=== PATIENT | female | born 1945 | race Caucasian/White ===

== ENCOUNTER 2018-02-20 13:01 | Emergency (ER) | payer OTHER, BC ==
--- NOTE | 2018-02-20 14:30 | RAD REPORT ---
EXAM DESCRIPTION: RAD - Pelvis - 02/20/2018 2:17 pm CLINICAL HISTORY: Fall, leg pain COMPARISON: January 16 TECHNIQUE: AP imaging of the pelvis was obtained. FINDINGS: Prominent degenerative change involves the L4-5 and L5-S1 disc spaces. This is stable in p resentation to the prior study. SI joint degenerative changes also stable. No fracture or acute findi ng of the bony pelvis. Mild for age left-side and moderate for age right side hip joint degenerative changes are present. Ag ain, pattern is similar to comparison. Fracture hardware is present in the proximal right femur with no new or recurrent fracture. IMPRESSION: Lower lumbar, pelvic and hip joint degenerative and postsurgical changes as detailed. No acute findings seen and no significant change January 16.
--- NOTE | 2018-02-20 14:32 | RAD REPORT ---
EXAM DESCRIPTION: RAD - Femur Left - 02/20/2018 2:18 pm CLINICAL HISTORY: Fall, hip pain COMPARISON: January 16 FINDINGS: No fracture is identified. There is no dislocation or periosteal reaction noted. No acute or suspicious bony finding. No AVN or focal femoral head abnormality. Mild for age degenerative randhawa ges are present seen as joint space narrowing and marginal spurring along the superior acetabular rim . No periarticular soft tissue mass or hematoma suspected. More distally the shaft of the femur is intact. Patient has advanced degenerative changes at the knee joint. Moderate joint effusion is present. There is medial compartment narrowing and marginal spurri ng. Patella femoral joint space narrowing is present also with large marginal spurs. IMPRESSION: Advanced degenerative change and moderate E fusion at the knee joint. No acute finding c onfirmed. A much more mild degenerative process seen at the left hip joint. Again, no acute component.
--- NOTE | 2018-02-20 15:15 | EDPHYS ---
Physician Documentation [facility] Name: Tina Padron Age: 72 yrs Sex: Female : 1945 Arrival Date: 02/20/2018 Time: 13:05 Bed 17 Private MD: ED Physician Mateo Fox HPI: 02/20 15:07 This 72 yrs old Female presents to ER via Wheelchair with complaints of Fall alec Injury, Leg Pain. 15:07 Details of fall: The patient fell from an upright position, while walking. Onset: The alec symptoms/episode began/occurred this morning. Associated injuries: The patient sustained left leg, decreased range of motion, painful injury. Severity of symptoms: At their worst the symptoms were mild, in the emergency department the symptoms are unchanged. The patient has experienced similar episodes in the past, a few times. 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 - Social history:: Smoking status: Patient/guardian denies using tobacco. ROS: 15:09 Constitutional: Negative for fever, chills, and weight loss, Eyes: Negative for injury, alec pain, redness, and discharge, ENT: Negative for injury, pain, and discharge, Neck: Negative for injury, pain, and swelling, Cardiovascular: Negative for chest pain, palpitations, and edema, Respiratory: Negative for shortness of breath, cough, wheezing, and pleuritic chest pain, Abdomen/GI: Negative for abdominal pain, nausea, vomiting, diarrhea, and constipation, Back: Negative for injury and pain, : Negative for injury, bleeding, discharge, and swelling, Skin: Negative for injury, rash, and discoloration, Neuro: Negative for headache, weakness, numbness, tingling, and seizure, Psych: Negative for depression, anxiety, suicide ideation, homicidal ideation, and hallucinations, Allergy/Immunology: Negative for hives, rash, and allergies, Endocrine: Negative for neck swelling, polydipsia, polyuria, polyphagia, and marked weight changes, Hematologic/Lymphatic: Negative for swollen nodes, abnormal bleeding, and unusual bruising. 15:09 MS/extremity: Positive for decreased range of motion, pain, swelling, tenderness, of the left inner thigh, medial aspect of left thigh, left quadriceps and left knee. Exam: 15:09 Constitutional: This is a well developed, well nourished patient who is awake, alert, alec and in no acute distress. Head/Face: Normocephalic, atraumatic. Eyes: Pupils equal round and reactive to light, extra-ocular motions intact. Lids and lashes normal. Conjunctiva and sclera are non-icteric and not injected. Cornea within normal limits. Periorbital areas with no swelling, redness, or edema. ENT: Nares patent. No nasal discharge, no septal abnormalities noted. Tympanic membranes are normal and external auditory canals are clear. Oropharynx with no redness, swelling, or masses, exudates, or evidence of obstruction, uvula midline. Mucous membranes moist. Neck: Trachea midline, no thyromegaly or masses palpated, and no cervical lymphadenopathy. Supple, full range of motion without nuchal rigidity, or vertebral point tenderness. No Meningismus. Chest/axilla: Normal chest wall appearance and motion. Nontender with no deformity. No lesions are appreciated. Cardiovascular: Regular rate and rhythm with a normal S1 and S2. No gallops, murmurs, or rubs. Normal PMI, no JVD. No pulse deficits. Respiratory: Lungs have equal breath sounds bilaterally, clear to auscultation and percussion. No rales, rhonchi or wheezes noted. No increased work of breathing, no retractions or nasal flaring. Abdomen/GI: Soft, non-tender, with normal bowel sounds. No distension or tympany. No guarding or rebound. No evidence of tenderness throughout. Back: No spinal tenderness. No costovertebral tenderness. Full range of motion. Skin: Warm, dry with normal turgor. Normal color with no rashes, no lesions, and no evidence of cellulitis. Neuro: Awake and alert, GCS 15, oriented to person, place, time, and situation. Cranial nerves II-XII grossly intact. Motor strength 5/5 in all extremities. Sensory grossly intact. Cerebellar exam normal. Normal gait. Psych: Awake, alert, with orientation to person, place and time. Behavior, mood, and affect are within normal limits. 15:09 Musculoskeletal/extremity: Extremities: decreased ROM. 15:09 Musculoskeletal/extremity: ROM: limited active range of motion, limited passive range alec of motion, Circulation is intact in all extremities. Sensation intact. Compartment Syndrome exam of affected extremity: is normal. Weight bearing: can bear weight with assistance only, uses walker, DVT Exam: negative Homans' sign noted on exam, no appreciated bluish discoloration, no erythema, no increased warmth, pain, swelling, tenderness. Vital Signs: 13:13 BP 129 / 80; Pulse 74; Resp 16 S; Temp 98.4; Pulse Ox 94% on R/A; Weight 75.3 kg; iw Height 5 ft. 5 in. (165.10 cm); Pain 10/10; 13:13 Body Mass Index 27.62 (75.30 kg, 165.10 cm) iw Lyman Coma Score: 13:13 Eye Response: spontaneous(4). Verbal Response: oriented(5). Motor Response: obeys iw commands(6). Total: 15. Trauma Score (Adult): 13:13 Eye Response: spontaneous(1); Verbal Response: oriented(1); Motor Response: obeys iw commands(2); Systolic BP: > 89 mm Hg(4); Respiratory Rate: 10 to 29 per min(4); Lyman Score: 15; Trauma Score: 12 MDM: 13:26 Patient medically screened. [facility] 15:09 Data reviewed: vital signs, nurses notes, radiologic studies, plain films. [facility] 02/20 13:39 Order name: Pelvis XRAY; Complete Time: 14:54 em 02/20 13:39 Order name: Femur Left XRAY; Complete Time: 14:54 em 02/20 15:08 Order name: Knee Immobilizer; Complete Time: 15:33 kb 02/20 15:08 Order name: Ice pack; Complete Time: 15:33 kb Administered Medications: 15:33 Drug: [place] 10 mg-325 mg 1 tabs Route: PO; em 15:56 Follow up: Response: No adverse reaction; Pain is decreased iw Disposition: 02/20/18 15:14 Discharged to Home. Impression: Fall due to bumping against object, Pain in left knee, Effusion, left knee. - Condition is Stable. - Discharge Instructions: Knee Bracing, Knee Effusion, Musculoskeletal Pain, Knee Pain. - Prescriptions for Tylenol- Codeine #3 300-30 mg Oral Tablet - take 2 tablets by ORAL route every 6 hours As needed; 24 tablet. - Medication Reconciliation Form, Thank You Letter, Antibiotic Education, Prescription Opioid Use form. - Follow up: Private Physician; When: 2 - 3 days; Reason: Recheck today's complaints, Continuance of care, Re-evaluation by your physician. Follow up: Elijah Patten MD; When: 2 - 3 days; Reason: Recheck today's complaints, Continuance of care, Re-evaluation by your physician. - Problem is new. - Symptoms have improved. Signatures: Dispatcher [employer] Yessenia Hill, RACKER OCTAVE BOARD-C RACKER OCTAVE BOARD-Ckb Mateo Fox MD MD cha Munoz, Edgar, ADMITTANCE ATTENDANT ADMITTANCE ATTENDANT Dinora Álvarez RN RN iw Corrections: (The following items were deleted from the chart) 15:39 15:09 Knee Left 3 View+RAD.RAD.BRZ ordered. [facility]
--- NOTE | 2018-02-20 15:15 | ER ---
Nurse's Notes [facility] Name: Tina Padron Age: 72 yrs Sex: Female : 1945 Arrival Date: 02/20/2018 Time: 13:05 Bed 17 Private MD: Diagnosis: Fall due to bumping against object;Pain in left knee;Effusion, left knee Presentation: 02/20 13:10 Presenting complaint: states: pt fell in bathroom this morning at 0700, had a iw hard time getting her off floor, EMS was called for lift assist, pt now c/o pain to left leg, then entire leg, can't bend or straighten it. Care prior to arrival: None. Mechanism of Injury: Fall out of chair. Trauma event details: Injury occurred in the [facility], Injury occurred: at home. Injury occurred: February 20, 2018. 13:10 Acuity: TYLOR 3 iw 13:10 Method Of Arrival: Wheelchair iw 13:13 Transition of care: patient was not received from another setting of care. Onset of iw symptoms was February 20, 2018. Initial Sepsis Screen: Does the patient meet any 2 criteria? No. Patient's initial sepsis screen is negative. Does the patient have a suspected source of infection? No. Patient's initial sepsis screen is negative. 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 - Social history:: Smoking status: Patient/guardian denies using tobacco. Screenin:54 Abuse screen: Denies threats or abuse. Denies injuries from another. Nutritional iw screening: No deficits noted. Tuberculosis screening: No symptoms or risk factors identified. Fall Risk Fall in past 12 months (25 points). Assessment: 14:00 General: Appears in no apparent distress. Behavior is calm, cooperative. Pain: iw Complains of pain in left leg. Neuro: Level of Consciousness is awake, alert, Oriented to person, place, time. Cardiovascular: Patient's skin is warm and dry. Respiratory: Airway is patent Respiratory effort is even, unlabored, Respiratory pattern is regular, symmetrical. GI: No signs and/or symptoms were reported involving the gastrointestinal system. Derm: Skin is normal. Musculoskeletal: Range of motion: limited in left hip and left knee. Musculoskeletal: Reports pain in left leg. 15:00 Reassessment: Patient appears in no apparent distress at this time. Patient and/or em family updated on plan of care and expected duration. Pain level reassessed. Patient is alert, oriented x 3, equal unlabored respirations, skin warm/dry/pink. Vital Signs: 13:13 BP 129 / 80; Pulse 74; Resp 16 S; Temp 98.4; Pulse Ox 94% on R/A; Weight 75.3 kg; iw Height 5 ft. 5 in. (165.10 cm); Pain 10/10; 13:13 Body Mass Index 27.62 (75.30 kg, 165.10 cm) iw Haley Coma Score: 13:13 Eye Response: spontaneous(4). Verbal Response: oriented(5). Motor Response: obeys iw commands(6). Total: 15. Trauma Score (Adult): 13:13 Eye Response: spontaneous(1); Verbal Response: oriented(1); Motor Response: obeys iw commands(2); Systolic BP: > 89 mm Hg(4); Respiratory Rate: 10 to 29 per min(4); Zephyr Score: 15; Trauma Score: 12 ED Course: 13:05 Patient arrived in ED. mr 13:12 Triage completed. iw 13:26 Mateo Fox MD is Attending Physician. alec 13:38 Stevenson Garcia LVN is Primary Nurse. em 14:00 Patient has correct armband on for positive identification. Call light in reach. Side em rails up X2. 14:17 Pelvis XRAY In Process Unspecified. EDMS 14:17 Femur Left XRAY In Process Unspecified. EDMS 15:12 Elijah Patten MD is Referral Physician. alec 15:26 Radiology exam delayed due to confirming with NASRIN Casas before doing dedicated knee x kw1 ray. 15:54 No provider procedures requiring assistance completed. Patient did not have IV access iw during this emergency room visit. 16:05 Arm band placed on. em Administered Medications: 15:33 Drug: [place] 10 mg-325 mg 1 tabs Route: PO; em 15:56 Follow up: Response: No adverse reaction; Pain is decreased iw Outcome: 15:14 Discharge ordered by . alec 16:05 Discharged to home via wheelchair. em 16:05 Condition: good 16:05 Discharge instructions given to patient, family, Instructed on discharge instructions, follow up and referral plans. medication usage, Demonstrated understanding of instructions, follow-up care, medications, Prescriptions given X 1. 16:07 Patient left the ED. iw Signatures: Dispatcher [employer] Mateo Solano MD MD cha Rivera, Maria mr Munoz, Edgar, FLAT BED OPERATOR FLAT BED OPERATOR Dinora Álvarez, ALCIDES RN Demetria Vega kw1
[2018-02-20] MEDS ORDERED: HYDROCODONE/APAP 10/325 TAB ONE (15:17)
== END 2018-02-20 16:07 | disposition home or self-care (01) ==
LOC: ER 13:01
DX: M25.562 Pain in left knee (principal); M25.462 Effusion, left knee; W18.30XA Fall on same level, unspecified, initial encounter; Y93.9 Activity, unspecified; Y92.009 Unspecified place in unspecified non-institutional (private) residence as the place of occurrence of the external cause
CPT/HCPCS: 72170; 99283

== ENCOUNTER 2018-02-21 09:41 | Emergency (ER) | payer OTHER, BC ==
--- NOTE | 2018-02-21 11:23 | RAD REPORT ---
EXAM DESCRIPTION: RAD - Chest Pa And Lat (2 Views) - 02/21/2018 11:15 am CLINICAL HISTORY: Fall, right-sided rib pain COMPARISON: 01/16/2018, 12/03/2017 FINDINGS: Two views of the chest and right rib series are submitted. The lungs are clear. The heart is upper limit normal in size. No displaced fractures. Hardware is pre sent in the left clavicle. Cholecystectomy clips. Right rib series is not demonstrate evidence of a displaced rib fracture. No aggressive rib lesion. IMPRESSION: No acute finding is demonstrated.
--- NOTE | 2018-02-21 11:35 | ER ---
Nurse's Notes [facility] Name: Tina Padron Age: 72 yrs Sex: Female : 1945 Arrival Date: 02/21/2018 Time: 09:44 Bed 17 Private MD: Judd Gagnon R Diagnosis: Rib Contusion Presentation: 02/21 09:46 Presenting complaint: Patient states: when i fell yesterday they looked at my left arm tw2 but not at my right ribs and they are hurting me. Transition of care: patient was not received from another setting of care. Onset of symptoms was February 21, 2018. Initial Sepsis Screen: Does the patient meet any 2 criteria? No. Patient's initial sepsis screen is negative. Does the patient have a suspected source of infection? No. Patient's initial sepsis screen is negative. Care prior to arrival: None. 09:46 Method Of Arrival: Wheelchair tw2 09:46 Acuity: TYLOR 4 tw2 Triage Assessment: 09:49 General: Appears in no apparent distress. Behavior is calm, cooperative, appropriate tw2 for age. Pain: Complains of pain in right ribs. Historical: - Allergies: 09:48 Compazine; tw2 - Home Meds: 09:48 aspirin 81 mg Oral chew 1 tab once daily [Active]; dicyclomine 20 mg Oral tab 1 tab tw2 [Active]; levothyroxine oral [Active]; losartan Oral [Active]; Meclizine Oral [Active]; Metoprolol Tartrate Oral [Active]; multivitamin Oral [Active]; Omeprazole Oral [Active]; potassium chloride (bulk) miscellaneous [Active]; Simvastatin Oral [Active]; Ursodiol Oral [Active]; - PMHx: 09:48 b-cell lymphoma; breast mass L side, removed; chemo for B cell lymp-marija, finished now; tw2 Chronic pain; neck; Kidney stones; syncope; UTI; - PSHx: 09:48 left arm/shoulder; Cholecystectomy; Hysterectomy; tw2 - Immunization history:: Adult Immunizations up to date. - Social history:: Smoking status: Patient/guardian denies using tobacco. - Family history:: not pertinent. - Hospitalizations: : No recent hospitalization is reported. Screenin:59 Abuse screen: Denies threats or abuse. Denies injuries from another. Nutritional mg2 screening: No deficits noted. Tuberculosis screening: No symptoms or risk factors identified. Fall Risk Fall in past 12 months (25 points). Secondary diagnosis (15 points) impaired mobility. Assessment: 09:59 General: Appears in no apparent distress. comfortable, Behavior is calm, cooperative. mg2 Pain: Complains of pain in right side of the trunk Pain Quality of pain is described as aching, Pain began 1 day ago. Is intermittent, Alleviated by rest, Aggravated by Noted to be Also complains of. Pain: Pain currently is 8 out of 10 on a pain scale. Quality of pain is described as. Neuro: Level of Consciousness is awake, alert. Cardiovascular: Patient's skin is warm and dry. Respiratory: Breath sounds are clear bilaterally. Derm: Skin is intact. Musculoskeletal: Vital Signs: 09:48 BP 112 / 71; Pulse 65; Resp 16; Temp 98.6(TE); Pulse Ox 95% on R/A; Weight 73.48 kg tw2 (R); Height 5 ft. 5 in. (165.10 cm) (R); Pain 8/10; 11:45 BP 115 / 72; Pulse 66; Resp 18; Pulse Ox 100% on R/A; hj 09:48 Body Mass Index 26.96 (73.48 kg, 165.10 cm) tw2 ED Course: 09:44 Patient arrived in ED. mr 09:44 Judd Gagnon MD is Private Physician. mr 09:47 Triage completed. tw2 09:49 Arm band placed on. tw2 09:53 Chintan Ramírez MD is Attending Physician. rn 09:59 Patient has correct armband on for positive identification. Bed in low position. Call mg2 light in reach. Side rails up X 1. 09:59 No provider procedures requiring assistance completed. mg2 10:06 Ted Blandon, ALCIDES is Primary Nurse. mg2 10:07 Note: DELAYED DUE TO NOT HAVING AN AVAILABLE X RAY ROOM. sw 10:59 Patient moved to radiology via wheelchair. sw 11:15 X-ray completed. Patient tolerated procedure well. Patient moved back from radiology. sw 11:16 XRAY Chest Pa And Lat (2 Views) In Process Unspecified. EDMS 11:16 XRAY Ribs RIGHT In Process Unspecified. EDMS 11:35 Judd Gagnon MD is Referral Physician. rn 11:45 Patient did not have IV access during this emergency room visit. neil Administered Medications: No medications were administered Outcome: 11:35 Discharge ordered by . rn 11:45 Discharged to home via wheelchair. neil 11:45 Condition: stable 11:45 Discharge instructions given to patient, Instructed on discharge instructions, follow up and referral plans. Demonstrated understanding of instructions, follow-up care. 11:46 Patient left the ED. neil Signatures: Dispatcher [employer] EDSC Shawna Fay Roman, MD MD rn Warren, Shannon sw Joaquin, Henry RN RN Zoraida Joyner RN RN tw2 Ted Blandon RN RN mg2
--- NOTE | 2018-02-21 11:35 | EDPHYS ---
Physician Documentation [facility] Name: Tina Padron Age: 72 yrs Sex: Female : 1945 Arrival Date: 02/21/2018 Time: 09:44 Bed 17 Private MD: Judd Gagnon R ED Physician Chintan Ramírez HPI: 02/21 10:04 This 72 yrs old Female presents to ER via Wheelchair with complaints of Rib rn Pain. 10:04 The patient or guardian reports chest pain that is located primarily in the anterior rn chest wall. Onset: The symptoms/episode began/occurred yesterday. The pain does not radiate. The chest pain is described as sharp. Duration: The patient or guardian reports multiple episodes, that are intermittent. Severity of pain: At its worst the pain was moderate in the emergency department the pain is unchanged. The patient has not experienced similar symptoms in the past. Reports right sided rib pain s/p fall, seen here yesterday, had xrays of leg because that was what was hurting, told everything was normal, went home and right ribs began to hurt, fall from standing. . Historical: - Allergies: 09:48 Compazine; tw2 - Home Meds: 09:48 aspirin 81 mg Oral chew 1 tab once daily [Active]; dicyclomine 20 mg Oral tab 1 tab tw2 [Active]; levothyroxine oral [Active]; losartan Oral [Active]; Meclizine Oral [Active]; Metoprolol Tartrate Oral [Active]; multivitamin Oral [Active]; Omeprazole Oral [Active]; potassium chloride (bulk) miscellaneous [Active]; Simvastatin Oral [Active]; Ursodiol Oral [Active]; - PMHx: 09:48 b-cell lymphoma; breast mass L side, removed; chemo for B cell lymp-marija, finished now; tw2 Chronic pain; neck; Kidney stones; syncope; UTI; - PSHx: 09:48 left arm/shoulder; Cholecystectomy; Hysterectomy; tw2 - Immunization history:: Adult Immunizations up to date. - Social history:: Smoking status: Patient/guardian denies using tobacco. - Family history:: not pertinent. - Hospitalizations: : No recent hospitalization is reported. ROS: 10:04 Constitutional: Negative for fever, chills, and weight loss, Eyes: Negative for injury, rn pain, redness, and discharge, Neck: Negative for injury, pain, and swelling, Cardiovascular: Negative for palpitations, and edema Respiratory: Negative for shortness of breath, cough, wheezing Abdomen/GI: Negative for abdominal pain, nausea, vomiting, diarrhea, and constipation, Back: Negative for injury and pain, MS/Extremity: Negative for deformity Skin: Negative for injury, rash, and discoloration, Neuro: Negative for headache, weakness, numbness, tingling, and seizure. Exam: 10:04 Constitutional: This is a well developed, well nourished patient who is awake, alert, rn and in no acute distress. Head/Face: Normocephalic, atraumatic. Eyes: Pupils equal round and reactive to light, extra-ocular motions intact. Lids and lashes normal. Conjunctiva and sclera are non-icteric and not injected. Cornea within normal limits. Periorbital areas with no swelling, redness, or edema. Chest/axilla: Normal chest wall appearance and motion. + mild tenderness right taj/lateral chest wall along inferior ribs, no contusion/ecchymosis, no crepitus Cardiovascular: Regular rate and rhythm with a normal S1 and S2. No gallops, murmurs, or rubs. Normal PMI, no JVD. No pulse deficits. Respiratory: Lungs have equal breath sounds bilaterally, clear to auscultation and percussion. No rales, rhonchi or wheezes noted. No increased work of breathing, no retractions or nasal flaring. Abdomen/GI: Soft, non-tender, with normal bowel sounds. No distension or tympany. No guarding or rebound. No evidence of tenderness throughout. Neuro: Awake and alert, GCS 15, oriented to person, place, time, and situation. Cranial nerves II-XII grossly intact. Motor strength 5/5 in all extremities. Sensory grossly intact. Vital Signs: 09:48 BP 112 / 71; Pulse 65; Resp 16; Temp 98.6(TE); Pulse Ox 95% on R/A; Weight 73.48 kg tw2 (R); Height 5 ft. 5 in. (165.10 cm) (R); Pain 8/10; 11:45 BP 115 / 72; Pulse 66; Resp 18; Pulse Ox 100% on R/A; hj 09:48 Body Mass Index 26.96 (73.48 kg, 165.10 cm) tw2 MDM: 09:53 Patient medically screened. rn 11:34 Differential diagnosis: Blunt Chest Trauma Chest Wall Contusion Chest Wall Injury Rib rn Fracture. Data reviewed: vital signs, nurses notes, radiologic studies, plain films, and as a result, I will discharge patient. Counseling: I had a detailed discussion with the patient and/or guardian regarding: the historical points, exam findings, and any diagnostic results supporting the discharge/admit diagnosis, radiology results, the need for outpatient follow up, to return to the emergency department if symptoms worsen or persist or if there are any questions or concerns that arise at home. Special discussion: I discussed with the patient/guardian in detail that at this point there is no indication for admission to the hospital. It is understood, however, that if the symptoms persist or worsen the patient needs to return immediately for re-evaluation. 02/21 10:02 Order name: XRAY Chest Pa And Lat (2 Views); Complete Time: 11:34 rn 02/21 10:02 Order name: XRAY Ribs RIGHT rn Administered Medications: No medications were administered Disposition: 02/21/18 11:35 Discharged to Home. Impression: Rib Contusion. - Condition is Stable. - Discharge Instructions: Rib Contusion. - Medication Reconciliation Form, Thank You Letter, Antibiotic Education, Prescription Opioid Use form. - Follow up: Judd Gagnon MD; When: As needed; Reason: Recheck today's complaints, Re-evaluation by your physician. - Problem is new. - Symptoms have improved. Signatures: Dispatcher [employer] EDChintan Jason MD MD rn Joaquin, Henry RN Zoraida Kaplan RN RN tw2
--- NOTE | 2018-02-21 13:27 | RAD REPORT ---
EXAM DESCRIPTION: RAD - Ribs Right - 02/21/2018 11:16 am CLINICAL HISTORY: Fall, right-sided rib pain COMPARISON: 01/16/2018, 12/03/2017 FINDINGS: Two views of the chest and right rib series are submitted. The lungs are clear. The heart is upper limit normal in size. No displaced fractures. Hardware is pre sent in the left clavicle. Cholecystectomy clips. Right rib series is not demonstrate evidence of a displaced rib fracture. No aggressive rib lesion. IMPRESSION: No acute finding is demonstrated.
== END 2018-02-21 11:46 | disposition home or self-care (01) ==
LOC: ER 09:41
DX: S20.219A Contusion of unspecified front wall of thorax, initial encounter (principal); W19.XXXA Unspecified fall, initial encounter; Y93.89 Activity, other specified; Y92.9 Unspecified place or not applicable; Z79.82 Long term (current) use of aspirin; Z85.72 Personal history of non-Hodgkin lymphomas; Z88.8 Allergy status to other drugs, medicaments and biological substances
CPT/HCPCS: 71046; 99283

== ENCOUNTER 2018-03-25 19:04 | Emergency (ER) | payer OTHER, BC ==
--- NOTE | 2018-03-25 20:26 | RAD REPORT ---
EXAM DESCRIPTION: CT - CTHCSPWOC - 03/25/2018 8:02 pm CLINICAL HISTORY: Fall, head and neck injury COMPARISON: January 16 TECHNIQUE: Axial 5 mm thick images of the head were obtained. Axial 2 mm thick images of the cervic al spine were obtained with sagittal and coronal reconstruction images generated and reviewed. All CT scans are performed using dose optimization technique as appropriate and may include automated exposure control or mA/KV adjustment according to patient size. FINDINGS: No intracranial hemorrhage, mass, edema or acute intracranial finding. No acute cortical based infarc tion. Mild atrophy and chronic ischemic changes are present similar to the comparison. Ventricular si ze is in proportion. No extra-axial fluid collections. Mastoid air cells are clear. No acute paranasa l sinus finding. No globe or orbit abnormality seen. Small left parietal scalp injury is present. A b ad is Cervical body height and alignment are normal. C5-6 disc space narrowing is present. Facet degenerati ve change seen throughout the cervical spine. No fracture or acute bony abnormality. Central canal de tail is inherently limited. No paraspinal mass or hematoma. IMPRESSION: No hemorrhage or acute intracranial finding. Mild left parietal scalp injury is present. Cervical spine degenerative changes are present as detailed. No acute finding. No significant change from prior imaging.
[2018-03-25 20:59] LABS: Absolute Lymphocytes (CBC) 0.4 K/uL (0.7-4.9); Absolute Monocytes 0.8 K/uL (0.1-1.3); Absolute Neutrophil 2.6 K/uL (1.8-8.0); Basophils % 1.1 % (0-1.3); Hematocrit 26.4 % (36.0-45.0); Lymphocytes % 9.8 % (15.3-44.8); MCH 31.1 pg (27.0-35.0); MCV 93.5 fL (80-100); MPV 7.7 fL (7.6-11.3); Monocytes % 20.8 % (3.3-12.3); RBC Red Blood Cell Count 2.82 M/uL (3.86-4.86)
[2018-03-25] MEDS ORDERED: NA CHLORIDE 0.9% 1,000 ML ONE (21:01)
[2018-03-25 21:10] LABS: Potassium 4.6 mEq/L (3.6-5.0)
[2018-03-25 21:46] LABS: Blood Morphology Comment NOT SEEN (NOT SEEN); Platelet Estimate ADEQ
[2018-03-25 23:22] LABS: Urine Bacteria <20 /HPF (<20); Urine Culture Reflex Order REFLEXED; Urine RBC NONE SEEN /HPF (NONE SEEN); Urine Yeast MANY (NONE SEEN)
[2018-03-25 23:23] LABS: Urine Blood NEGATIVE (NEG); Urine Glucose NEGATIVE (NEG); Urine Protein NEGATIVE (NEG); Urine pH 5.5 (5.0-7.0)
--- NOTE | 2018-03-26 02:23 | ER ---
Nurse's Notes [facility] Name: Tina Padron Age: 72 yrs Sex: Female : 1945 Arrival Date: 03/25/2018 Time: 19:19 Bed 15 Private MD: Judd Gagnon R Diagnosis: Laceration without foreign body of scalp;Candidiasis of other urogenital sites Presentation: 03/25 19:20 Presenting complaint: EMS states: Fell backwards at home. EMS stated that she had mb3 fallen 2 hours ago and refused transport. Fell again and insisted she come in to be checked. Has a small abrasion to back of head that is seeping blood. Xanax, norco, and ambien bottles were all at bedside, family states self medicates. Is being treated for bad uti, seen by her doctor yesterday and given antibiotics. Transition of care: patient was not received from another setting of care. Onset of symptoms was March 25, 2018 at 18:40. Risk Assessment: Do you want to hurt yourself or someone else? Patient reports no desire to harm self or others. Initial Sepsis Screen: Does the patient meet any 2 criteria? No. Patient's initial sepsis screen is negative. Does the patient have a suspected source of infection? No. Patient's initial sepsis screen is negative. Care prior to arrival: None. 19:20 Method Of Arrival: EMS: [facility] mb3 19:20 Acuity: TYLOR 3 mb3 Triage Assessment: 19:29 General: Appears comfortable, unkempt, Behavior is calm, drowsy. Pain: Complains of mb3 pain in anterior aspect of left shoulder and posterior aspect of left shoulder. EENT: No signs and/or symptoms were reported regarding the EENT system. Neuro: Level of Consciousness is obeys commands, lethargic, Oriented to person, situation, Ditch Tender are equal bilaterally Moves all extremities. Weakness. Cardiovascular: Heart tones present Capillary refill < 3 seconds Patient's skin is warm and dry. Pulses are palpable in right radial artery, right dorsalis pedis artery, left radial artery and left dorsalis pedis artery. Respiratory: Airway is patent Respiratory effort is even, unlabored, Respiratory pattern is regular, symmetrical, Breath sounds are clear bilaterally. GI: No signs and/or symptoms were reported involving the gastrointestinal system. Abdomen is round Bowel sounds present X 4 quads. Abd is soft and non tender. Musculoskeletal: Reports pain in left shoulder. Injury Description: Abrasion sustained to right parietal area. Historical: - Allergies: 19:29 Compazine; mb3 - PMHx: 19:29 b-cell lymphoma; breast mass L side, removed; chemo for B cell lymp-marija, finished now; mb3 Chronic pain; neck; Kidney stones; syncope; UTI; - Immunization history:: Adult Immunizations up to date. - Social history:: Smoking status: Patient/guardian denies using tobacco, never smoked. - Ebola Screening: : Patient denies travel to an Ebola-affected area in the 21 days before illness onset No symptoms or risks identified at this time. Screenin:55 Abuse screen: Denies threats or abuse. Nutritional screening: No deficits noted. mb3 Tuberculosis screening: No symptoms or risk factors identified. Fall Risk Fall in past 12 months (25 points). Secondary diagnosis (15 points) impaired mobility, IV access (20 points). Ambulatory Aid- Furniture (30 pts.). Gait- Impaired (20 pts.). Mental Status- Overestimates/Forgets Limitations (15 pts.). Total Wick Fall Scale indicates High Risk Score (45 or more points). Fall prevention measures have been instituted. Side Rails Up X 2 Placed Close to Nursing Station 1:1 Attendant Assigned Frequent Obs/Assessments Occuring As available patient and family educated on Fall Prevention Program and Strategies. Assessment: 19:20 Reassessment: see triage assessment. mb3 20:30 Injury Description: Laceration sustained to left parietal area is 0.5 to 2.5 cm long, mb3 was sustained 1-2 hours ago. a small amount of bleeding noted at this time. 21:54 Reassessment: No changes from previously documented assessment. Patient and/or family mb3 updated on plan of care and expected duration. Pain level reassessed. Patient is alert, oriented x 3, equal unlabored respirations, skin warm/dry/pink. 03/26 01:00 Reassessment: Patient and/or family updated on plan of care and expected duration. Pain ea level reassessed. Patient is alert, oriented x 3, equal unlabored respirations, skin warm/dry/pink. 02:42 Reassessment: Patient and/or family updated on plan of care and expected duration. Pain ea level reassessed. Patient is alert, oriented x 3, equal unlabored respirations, skin warm/dry/pink. Discharge instructions given to patient's , verbalized the understanding of instruction. Patient states symptoms have improved. Vital Signs: 03/25 19:24 BP 113 / 44; Pulse 63; Resp 14; Temp 97.6; Pulse Ox 99% on R/A; Weight 66.68 kg; Height mb3 5 ft. 4 in. (162.56 cm); Pain 0/10; 22:00 BP 133 / 43; Pulse 59; Resp 16; Pulse Ox 100% on R/A; mb3 03/26 00:07 BP 170 / 75; Pulse 97; Resp 18; Pulse Ox 97% on R/A; mb3 01:55 BP 168 / 68; Pulse 78; Resp 16; Pulse Ox 99% on R/A; ea 02:43 BP 155 / 70; Pulse 78; Resp 18 S; Temp 97.8(O); Pulse Ox 99% on R/A; ea 03/25 19:24 Body Mass Index 25.23 (66.68 kg, 162.56 cm) mb3 ED Course: 03/25 19:19 Patient arrived in ED. mb3 19:19 Mohit Real, ALCIDES is Primary Nurse. mb3 19:23 Oliverio Barnes NP is PHCP. pm1 19:23 Mateo Fox MD is Attending Physician. pm1 19:23 Triage completed. mb3 19:25 Judd Gagnon MD is Private Physician. ds1 20:01 CT completed. Patient moved to CT via stretcher. Patient moved back from CT. cw1 20:03 CT Head C Spine In Process Unspecified. EDMS 21:00 Inserted saline lock: 22 gauge in left ,using aseptic technique. leg Blood collected. mb3 21:19 Missed attempt(s): 22 gauge in right forearm. Bleeding controlled, band aid applied, mb3 catheter tip intact. 03/26 01:00 Arm band placed on right wrist. ea 01:00 Patient has correct armband on for positive identification. Bed in low position. Call ea light in reach. Side rails up X2. 02:22 Judd Gagnon MD is Referral Physician. pm1 02:45 No provider procedures requiring assistance completed. IV discontinued, intact, ea bleeding controlled, No redness/swelling at site. Pressure dressing applied. Administered Medications: 03/25 21:07 Drug: NS 0.9% 1000 ml Route: IV; Rate: 1000 ml; Site: Other; mb3 03/26 01:00 Follow up: Response: No adverse reaction; IV Status: Completed infusion ea 02:30 Drug: DiFLUcan 150 mg Route: PO; ea 02:51 Follow up: Response: No adverse reaction ea Outcome: 02:22 Discharge ordered by MD. pm1 02:44 Discharged to home via wheelchair, with significant other. ea 02:44 Condition: improved 02:44 Discharge instructions given to significant other, Instructed on discharge instructions, follow up and referral plans. Demonstrated understanding of instructions, follow-up care. 02:45 Patient left the ED. ea Signatures: Dispatcher [employer] Jenny Kelly dsMonika Avila cw1 Oliverio Barnes, NASRIN PHYSIOLOGIST pm1 Analy Alfonso RN RN Mohit Bhatt RN RN mb3
--- NOTE | 2018-03-26 02:23 | EDPHYS ---
Physician Documentation [facility] Name: Tina Padron Age: 72 yrs Sex: Female : 1945 Arrival Date: 03/25/2018 Time: 19:19 Bed 15 Private MD: Judd Gagnon R ED Physician Mateo Fox HPI: 03/25 20:00 This 72 yrs old Female presents to ER via EMS with complaints of Fall Injury. pm1 20:00 Details of fall: The patient fell from an upright position, while walking. Onset: The pm1 symptoms/episode began/occurred just prior to arrival. Associated injuries: The patient sustained injury to the head, laceration, of the left side of the back of head. The patient has experienced similar episodes in the past, multiple times. The patient has been recently seen by a physician: Treatment for UTI, currently taking cefnidir. 20:00 Patient with history of left shoulder pain that is treated with Percocet. She is also pm1 taking Xanax and Ambien. Patient fell and hit the back of head on the floor. Negative LOC. No nausea or vomiting. . Historical: - Allergies: 19:29 Compazine; mb3 - PMHx: 19:29 b-cell lymphoma; breast mass L side, removed; chemo for B cell lymp-marija, finished now; mb3 Chronic pain; neck; Kidney stones; syncope; UTI; - Immunization history:: Adult Immunizations up to date. - Social history:: Smoking status: Patient/guardian denies using tobacco, never smoked. - Ebola Screening: : Patient denies travel to an Ebola-affected area in the 21 days before illness onset No symptoms or risks identified at this time. ROS: 20:00 Constitutional: Negative for fever, chills, and weight loss, Eyes: Negative for injury, pm1 pain, redness, and discharge, ENT: Negative for injury, pain, and discharge, Neck: Negative for injury, pain, and swelling, Cardiovascular: Negative for chest pain, palpitations, and edema, Respiratory: Negative for shortness of breath, cough, wheezing, and pleuritic chest pain, Abdomen/GI: Negative for abdominal pain, nausea, vomiting, diarrhea, and constipation, Back: Negative for injury and pain, MS/Extremity: Negative for injury and deformity. 20:00 Skin: Positive for laceration(s), of the scalp. 20:00 Neuro: Negative for headache, loss of consciousness, seizure activity, syncope, near syncope. Exam: 20:00 Eyes: Pupils equal round and reactive to light, extra-ocular motions intact. Lids and pm1 lashes normal. Conjunctiva and sclera are non-icteric and not injected. Cornea within normal limits. Periorbital areas with no swelling, redness, or edema. ENT: Nares patent. No nasal discharge, no septal abnormalities noted. Tympanic membranes are normal and external auditory canals are clear. Oropharynx with no redness, swelling, or masses, exudates, or evidence of obstruction, uvula midline. Mucous membranes moist. Neck: Trachea midline, no thyromegaly or masses palpated, and no cervical lymphadenopathy. Supple, full range of motion without nuchal rigidity, or vertebral point tenderness. No Meningismus. Chest/axilla: Normal chest wall appearance and motion. Nontender with no deformity. No lesions are appreciated. Cardiovascular: Regular rate and rhythm with a normal S1 and S2. No gallops, murmurs, or rubs. Normal PMI, no JVD. No pulse deficits. Respiratory: Lungs have equal breath sounds bilaterally, clear to auscultation and percussion. No rales, rhonchi or wheezes noted. No increased work of breathing, no retractions or nasal flaring. Abdomen/GI: Soft, non-tender, with normal bowel sounds. No distension or tympany. No guarding or rebound. No evidence of tenderness throughout. Back: No spinal tenderness. No costovertebral tenderness. Full range of motion. Skin: Warm, dry with normal turgor. Normal color with no rashes, no lesions, and no evidence of cellulitis. MS/ Extremity: Pulses equal, no cyanosis. Neurovascular intact. Full, normal range of motion. 20:00 Constitutional: The patient appears in no acute distress, non-diaphoretic, non-toxic, well developed, well hydrated, well groomed, well nourished, Patient appears intoxicated 20:00 Head/face: Noted is a laceration(s), 3 cm(s), of the left side of the back of head. 20:00 Neuro: Orientation: to person, place, situation, Motor: moves all fours. Vital Signs: 19:24 BP 113 / 44; Pulse 63; Resp 14; Temp 97.6; Pulse Ox 99% on R/A; Weight 66.68 kg; Height mb3 5 ft. 4 in. (162.56 cm); Pain 0/10; 22:00 BP 133 / 43; Pulse 59; Resp 16; Pulse Ox 100% on R/A; mb3 03/26 00:07 BP 170 / 75; Pulse 97; Resp 18; Pulse Ox 97% on R/A; mb3 01:55 BP 168 / 68; Pulse 78; Resp 16; Pulse Ox 99% on R/A; ea 02:43 BP 155 / 70; Pulse 78; Resp 18 S; Temp 97.8(O); Pulse Ox 99% on R/A; ea 03/25 19:24 Body Mass Index 25.23 (66.68 kg, 162.56 cm) mb3 Laceration: 02:19 Wound Repair of 3cm ( 1.2in ) subcutaneous laceration to left side of the back of head. pm1 Linear shaped.. Distal neuro/vascular/tendon intact. Wound prep: Extensive cleansing with hibiclenz by me, Wound irrigation by me, Wound explored extensively, Copious irrigation. Skin closed with 8 1-0 [place] using staple gun. Patient tolerated well. MDM: 03/25 19:32 Patient medically screened. [facility] 03/26 02:19 Data reviewed: vital signs. Data interpreted: Pulse oximetry: on room air is 97 %. pm1 Interpretation: normal. Counseling: I had a detailed discussion with the patient and/or guardian regarding: the historical points, exam findings, and any diagnostic results supporting the discharge/admit diagnosis, lab results, radiology results, the need for outpatient follow up, to return to the emergency department if symptoms worsen or persist or if there are any questions or concerns that arise at home. 03/25 19:37 Order name: CBC with Diff; Complete Time: 23:37 pm1 03/25 19:37 Order name: BMP; Complete Time: 23:37 pm1 03/25 19:37 Order name: Urine Microscopic Only; Complete Time: 23:37 pm1 03/25 21:03 Order name: Manual Differential; Complete Time: 23:37 EDMS 03/25 22:20 Order name: Urine Dipstick--Ancillary (enter results); Complete Time: 23:37 rg2 03/25 23:24 Order name: Urine Culture [facility] 03/25 19:35 Order name: CT Head C Spine; Complete Time: 20:31 pm1 03/25 19:37 Order name: Urine Dipstick-Ancillary (obtain specimen) 1 03/25 19:37 Order name: IV Saline Lock; Complete Time: 21:11 pm1 Administered Medications: 03/25 21:07 Drug: NS 0.9% 1000 ml Route: IV; Rate: 1000 ml; Site: Other; mb3 03/26 01:00 Follow up: Response: No adverse reaction; IV Status: Completed infusion ea 02:30 Drug: DiFLUcan 150 mg Route: PO; ea 02:51 Follow up: Response: No adverse reaction ea Disposition: 03/26/18 02:22 Discharged to Home. Impression: Laceration without foreign body of scalp, Candidiasis of other urogenital sites. - Condition is Stable. - Discharge Instructions: Head Injury, Adult, Fall Prevention and Home Safety, Stitches, [place], or Adhesive Wound Closure. - Medication Reconciliation Form, Thank You Letter, Antibiotic Education form. - Follow up: Emergency Department; When: As needed; Reason: Worsening of condition. Follow up: Judd Gagnon MD; When: 2 - 3 days; Reason: Recheck today's complaints, Continuance of care, Re-evaluation by your physician. - Problem is new. - Symptoms have improved. Addendum: 03/28/2018 09:29 Co-signature as Attending Physician, Mateo Fox MD I agree with the assessment and c oswald plan of care. Signatures: Dispatcher [employer] [facility] Mateo Fox MD MD cha Marinas, Patrick, DRUG ABUSE WORKER DRUG ABUSE WORKER pm1 Analy Alfonso, Mohit Monae RN, ea RN RN mb3 Corrections: (The following items were deleted from the chart) 03/26 02:45 02:22 03/26/2018 02:22 Discharged to Home. Impression: Laceration without foreign body ea of scalp; Candidiasis of other urogenital sites. Condition is Stable. Forms are Medication Reconciliation Form, Thank You Letter, Antibiotic Education, Prescription Opioid Use. Follow up: Emergency Department; When: As needed; Reason: Worsening of condition. Follow up: Judd Gagnon; When: 2 - 3 days; Reason: Recheck today's complaints, Continuance of care, Re-evaluation by your physician. Problem is new. Symptoms have improved. pm1
[2018-03-26] MEDS ORDERED: FLUCONAZOLE 100 MG TAB ONE (02:28)
== END 2018-03-26 02:45 | disposition home or self-care (01) ==
LOC: ER 19:04
PROC: 0JQ00ZZ Repair Scalp Subcutaneous Tissue and Fascia, Open Approach (ICD-10-PCS; principal; 2018-03-26)
DX: S01.01XA Laceration without foreign body of scalp, initial encounter (principal); B37.49 Other urogenital candidiasis; W18.30XA Fall on same level, unspecified, initial encounter; Y93.01 Activity, walking, marching and hiking; Y92.9 Unspecified place or not applicable; Z88.8 Allergy status to other drugs, medicaments and biological substances; Z85.72 Personal history of non-Hodgkin lymphomas
CPT/HCPCS: 12002; 36415; 70450; 72125; 80048; 85025; 87086; 87088; 96360; 96361; 99284; J7030; 81003; 81015

== ENCOUNTER 2018-03-26 04:13 | Observation (INO) | payer OTHER, BC ==
--- NOTE | 2018-03-26 04:49 | EDPHYS ---
Physician Documentation [facility] Name: Tina Padron Age: 72 yrs Sex: Female : 1945 Arrival Date: 03/26/2018 Time: 04:19 Bed 7 Private MD: ED Physician Mateo Fox HPI: 03/26 04:40 This 72 yrs old Female presents to ER via EMS with complaints of fall and alec weakness. 04:40 Details of fall: The patient fell from an upright position. Onset: The symptoms/episode alec began/occurred 2 day(s) ago. Associated injuries: The patient sustained injury to the head. The patient presents with confusion, trouble concentrating. Possible causes: unknown. Associated signs and symptoms: The patient has no apparent associated signs or symptoms. Patient's baseline: Neuro: alert and fully oriented. Severity of symptoms: At their worst the symptoms were mild. Historical: - Allergies: 04:44 Compazine; jd3 - Home Meds: 04:44 aspirin 81 mg Oral chew 1 tab once daily [Active]; dicyclomine 20 mg Oral tab 1 tab jd3 [Active]; levothyroxine oral [Active]; losartan Oral [Active]; Meclizine Oral [Active]; Metoprolol Tartrate Oral [Active]; multivitamin Oral [Active]; Omeprazole Oral [Active]; potassium chloride (bulk) miscellaneous [Active]; Simvastatin Oral [Active]; Ursodiol Oral [Active]; - PMHx: 04:44 b-cell lymphoma; breast mass L side, removed; chemo for B cell lymp-marija, finished now; jd3 Chronic pain; neck; Kidney stones; syncope; UTI; - PSHx: 04:44 left shoulder; jd3 - Immunization history:: Adult Immunizations up to date. - Social history:: Smoking status: Patient/guardian denies using tobacco. - Family history:: not pertinent. - Ebola Screening: : No symptoms or risks identified at this time. ROS: 04:40 Constitutional: Negative for fever, chills, and weight loss, Eyes: Negative for injury, alec pain, redness, and discharge, ENT: Negative for injury, pain, and discharge, Neck: Negative for injury, pain, and swelling, Cardiovascular: Negative for chest pain, palpitations, and edema, Respiratory: Negative for shortness of breath, cough, wheezing, and pleuritic chest pain, Abdomen/GI: Negative for abdominal pain, nausea, vomiting, diarrhea, and constipation, Back: Negative for injury and pain, : Negative for injury, bleeding, discharge, and swelling, MS/Extremity: Negative for injury and deformity, Skin: Negative for injury, rash, and discoloration, Psych: Negative for depression, anxiety, suicide ideation, homicidal ideation, and hallucinations, Allergy/Immunology: Negative for hives, rash, and allergies, Endocrine: Negative for neck swelling, polydipsia, polyuria, polyphagia, and marked weight changes, Hematologic/Lymphatic: Negative for swollen nodes, abnormal bleeding, and unusual bruising. 04:40 Neuro: Positive for altered mental status, weakness. Exam: 04:40 Constitutional: This is a well developed, well nourished patient who is awake, alert, alec and in no acute distress. Head/Face: Normocephalic, atraumatic. Eyes: Pupils equal round and reactive to light, extra-ocular motions intact. Lids and lashes normal. Conjunctiva and sclera are non-icteric and not injected. Cornea within normal limits. Periorbital areas with no swelling, redness, or edema. ENT: Nares patent. No nasal discharge, no septal abnormalities noted. Tympanic membranes are normal and external auditory canals are clear. Oropharynx with no redness, swelling, or masses, exudates, or evidence of obstruction, uvula midline. Mucous membranes moist. Neck: Trachea midline, no thyromegaly or masses palpated, and no cervical lymphadenopathy. Supple, full range of motion without nuchal rigidity, or vertebral point tenderness. No Meningismus. Chest/axilla: Normal chest wall appearance and motion. Nontender with no deformity. No lesions are appreciated. Cardiovascular: Regular rate and rhythm with a normal S1 and S2. No gallops, murmurs, or rubs. Normal PMI, no JVD. No pulse deficits. Respiratory: Lungs have equal breath sounds bilaterally, clear to auscultation and percussion. No rales, rhonchi or wheezes noted. No increased work of breathing, no retractions or nasal flaring. Abdomen/GI: Soft, non-tender, with normal bowel sounds. No distension or tympany. No guarding or rebound. No evidence of tenderness throughout. Back: No spinal tenderness. No costovertebral tenderness. Full range of motion. Female : Normal external genitalia. MS/ Extremity: Pulses equal, no cyanosis. Neurovascular intact. Full, normal range of motion. Neuro: Awake and alert, GCS 15, oriented to person, place, time, and situation. Cranial nerves II-XII grossly intact. Motor strength 5/5 in all extremities. Sensory grossly intact. Cerebellar exam normal. Normal gait. Psych: Awake, alert, with orientation to person, place and time. Behavior, mood, and affect are within normal limits. 04:40 Musculoskeletal/extremity: DVT Exam: No signs of deep vein thrombosis. no pain, no swelling, no tenderness, negative Homans' sign noted on exam, no appreciated bluish discoloration, no erythema, no increased warmth. 04:40 Skin: Appearance: Color: pale, Temperature: normal temperature, Moisture: normal moisture, petechiae, not noted, ecchymosis, not noted, flushing, not noted. Vital Signs: 04:44 BP 128 / 49; Pulse 68; Resp 18 S; Temp 98.0(O); Pulse Ox 100% on R/A; Weight 64.41 kg jd3 (R); Height 5 ft. 5 in. (165.10 cm) (R); Pain 0/10; 06:27 BP 159 / 68; Pulse 72; Resp 18; Pulse Ox 99% on R/A; mt 06:54 BP 153 / 63; Pulse 67; Resp 19 S; Pulse Ox 97% on R/A; Pain 0/10; jd3 04:44 Body Mass Index 23.63 (64.41 kg, 165.10 cm) jd3 MDM: 04:28 Patient medically screened. [facility] 04:48 Data reviewed: vital signs, nurses notes, lab test result(s), EKG, radiologic studies, [facility] CT scan, plain films. 03/26 04:29 Order name: Basic Metabolic Panel 03/26 04:29 Order name: BNP [facility] 03/26 04:29 Order name: CBC with Diff 03/26 04:29 Order name: Ckmb [facility] 03/26 04:29 Order name: CPK alec 03/26 04:29 Order name: LFT's 03/26 04:29 Order name: Magnesium [facility] 03/26 04:29 Order name: PT-INR [facility] 03/26 04:29 Order name: Ptt, Activated [facility] 03/26 04:29 Order name: Troponin (emerg Dept Use Only); Complete Time: 07:12 [facility] 03/26 04:29 Order name: Acetaminophen [facility] 03/26 04:29 Order name: ETOH Level [facility] 03/26 04:29 Order name: Salicylate; Complete Time: 07:47 [facility] 03/26 04:29 Order name: Urine Drug Screen; Complete Time: 07:47 [facility] 03/26 07:47 Interpretation: Normal except: BZO POSITIVE; OXY POSITIVE. 03/26 04:29 Order name: XRAY Chest (1 view) [facility] 03/26 04:29 Order name: Urine Culture [facility] 03/26 04:30 Order name: Basic Metabolic Panel [facility] 03/26 04:30 Order name: BNP B-Type Natriuretic Peptide [facility] 03/26 04:30 Order name: CBC with Automated Diff; Complete Time: 07:47 [facility] 03/26 07:47 Interpretation: Normal except: WBC 6.2; RBC 2.95; HGB 9.3; HCT 27.6; RDW 16.9; ENZO% cp 84.8; LYM% 5.4; LYMA 0.3. 03/26 04:30 Order name: CKMB Creatine Kinase MB [facility] 03/26 04:30 Order name: Creatine Phosphokinase [facility] 03/26 04:45 Order name: Type And Screen [facility] 03/26 05:02 Order name: TSH [facility] 03/26 06:00 Order name: Urine Dipstick--Ancillary (enter results) [facility] 03/26 07:09 Order name: Urine Dipstick-Ancillary; Complete Time: 07:12 [facility] 03/26 07:48 Interpretation: Normal except: UESTR 1+. 03/26 04:29 Order name: EKG; Complete Time: 04:30 [facility] 03/26 04:29 Order name: Labs collected and sent; Complete Time: 06:50 [facility] 03/26 04:29 Order name: O2 Per Protocol; Complete Time: 06:49 [facility] 03/26 04:29 Order name: O2 Sat Monitoring; Complete Time: 06:49 [facility] 03/26 04:29 Order name: Urine Dipstick-Ancillary (obtain specimen); Complete Time: 06:50 [facility] Administered Medications: 06:47 Not Given (Physician Discretion): ProTONIX 40 mg IVP once jd3 06:48 Not Given (Physician Discretion; no IV access): foLIC Acid 1 mg IVPB once jd3 06:48 Not Given (Physician Discretion; no IV access): Thiamine 100 mg IV at bolus once jd3 06:48 Not Given (no IV access): Rocephin - (cefTRIAXone) 1 grams IVPB once over 30 mins; (mix jd3 in 50 mL NS) 06:49 Not Given (Physician Discretion; no IV access): NS 0.9% 1000 ml IV at 125 ml/hr jd3 continuous Disposition: 03/26/18 04:48 Hospitalization ordered by Bozena Piña for Observation. Preliminary diagnosis are Altered mental status, unspecified, Weakness, Repeated falls, Cystitis, Anemia, unspecified. - Bed requested for Telemetry/MedSurg (observation). - Status is Observation. jl7 - Condition is Stable. - Problem is new. - Symptoms have improved. UTI on Admission? Yes Signatures: Dispatcher [employer] EDMS Vanessa Juan RN RN mw Anderson, Corey, MD MD cha Therrien, Shelly, PROGRAM CONTROL ANALYST-C PROGRAM CONTROL ANALYST-Csnw Mateo Guzman PA PA cp Leal, Jahala, RN RN jl7 Willi Doshi RN RN jd3 Corrections: (The following items were deleted from the chart) 06:07 04:48 Hospitalization Ordered by Bozena Piña MD for Observation. Preliminary mw diagnosis is Altered mental status, unspecified; Weakness; Repeated falls; Cystitis; Anemia, unspecified. Bed requested for Telemetry/MedSurg (observation). Status is Observation. Condition is Stable. Problem is new. Symptoms have improved. UTI on Admission? Yes. alec 07:53 06:07 03/26/2018 04:48 Hospitalization Ordered by Bozena Piña MD for Observation. jl7 Preliminary diagnosis is Altered mental status, unspecified; Weakness; Repeated falls; Cystitis; Anemia, unspecified. Bed requested for Telemetry/MedSurg (observation). Status is Observation. Condition is Stable. Problem is new. Symptoms have improved. UTI on Admission? Yes.
--- NOTE | 2018-03-26 04:49 | ER ---
Nurse's Notes [facility] Name: Tina Padron Age: 72 yrs Sex: Female : 1945 Arrival Date: 03/26/2018 Time: 04:19 Bed 7 Private MD: Diagnosis: Altered mental status, unspecified;Weakness;Repeated falls;Cystitis;Anemia, unspecified Presentation: 03/26 04:32 Presenting complaint: EMS states: "the pt had reportedly fallen and is having slurred jd3 speech. is unsure if she got back into her pain medication or not. We arrived at the scene and the pt's , who is caring for her, claims she fell after going to the restroom and refusing help to and from.". Transition of care: patient was not received from another setting of care. Onset of symptoms was March 26, 2018. Risk Assessment: Do you want to hurt yourself or someone else? Patient reports no desire to harm self or others. Initial Sepsis Screen: Does the patient meet any 2 criteria? No. Patient's initial sepsis screen is negative. Does the patient have a suspected source of infection? No. Patient's initial sepsis screen is negative. Care prior to arrival: None. 04:32 Method Of Arrival: EMS: [facility] jd3 04:32 Acuity: TYLOR 3 jd3 Historical: - Allergies: 04:44 Compazine; jd3 - Home Meds: 04:44 aspirin 81 mg Oral chew 1 tab once daily [Active]; dicyclomine 20 mg Oral tab 1 tab jd3 [Active]; levothyroxine oral [Active]; losartan Oral [Active]; Meclizine Oral [Active]; Metoprolol Tartrate Oral [Active]; multivitamin Oral [Active]; Omeprazole Oral [Active]; potassium chloride (bulk) miscellaneous [Active]; Simvastatin Oral [Active]; Ursodiol Oral [Active]; - PMHx: 04:44 b-cell lymphoma; breast mass L side, removed; chemo for B cell lymp-marija, finished now; jd3 Chronic pain; neck; Kidney stones; syncope; UTI; - PSHx: 04:44 left shoulder; jd3 - Immunization history:: Adult Immunizations up to date. - Social history:: Smoking status: Patient/guardian denies using tobacco. - Family history:: not pertinent. - Ebola Screening: : No symptoms or risks identified at this time. Screenin:49 Abuse screen: Denies threats or abuse. Nutritional screening: No deficits noted. jd3 Tuberculosis screening: No symptoms or risk factors identified. Fall Risk Fall in past 12 months (25 points). Secondary diagnosis (15 points) impaired mobility, No IV (0 pts). Ambulatory Aid- Crutches/Cane/Walker (15 pts). Gait- Weak (10 pts.). Mental Status- Overestimates/Forgets Limitations (15 pts.). Total Wick Fall Scale indicates High Risk Score (45 or more points). Fall prevention measures have been instituted. Side Rails Up X 2 Placed Close to Nursing Station Frequent Obs/Assessments Occuring. Assessment: 04:45 Reassessment: husbands number is [phone]. jd3 04:46 General: Appears comfortable, Behavior is inappropriate for age, uncooperative. Pain: jd3 Denies pain. Neuro: Level of Consciousness is awake, Oriented to person, Pupils are PERRLA. Cardiovascular: Heart tones S1 S2 present Capillary refill < 3 seconds Patient's skin is warm and dry. Respiratory: Airway is patent Respiratory effort is even, unlabored, Respiratory pattern is regular, symmetrical, Breath sounds are clear bilaterally. GI: No signs and/or symptoms were reported involving the gastrointestinal system. : No signs and/or symptoms were reported regarding the genitourinary system. EENT: No signs and/or symptoms were reported regarding the EENT system. Derm: Skin is intact, Skin is dry, Skin is normal, Skin temperature is warm. Musculoskeletal: Circulation, motion, and sensation intact. Range of motion: intact in all extremities. 04:48 Reassessment: pt A\\T\\O X1 and refusing care. provider notified. ordered to continue jd3 treatment as planned. 05:20 Reassessment: Patient appears in no apparent distress at this time. Patient and/or jd3 family updated on plan of care and expected duration. Pain level reassessed. provider discussed plan of care with pt. pt is now complying with treatment after nursing staff assisted pt to use the restroom on bedpan. 05:45 Reassessment: Patient appears in no apparent distress at this time. Patient and/or jd3 family updated on plan of care and expected duration. Pain level reassessed. nurses at bedside attempting IV start. 06:33 Reassessment: Patient appears in no apparent distress at this time. Patient and/or jd3 family updated on plan of care and expected duration. Pain level reassessed. Dr. Fox attempted to start EJ and missed. Ordered to admit pt and start line at a later time if needed. order to cancel meds for lack of intervenous line. pt complying with care. 06:45 Reassessment: Dr. Piña at bedside, made aware of no intervenous access. no new orders jd3 at this time. 07:15 Reassessment: Pt states "I want to go home." Pt reporting Dr. Piña told her she can go jl7 home at 0700 Since she is refusing any tests. Pt requesting for nurse to call . Pt agrees to have a CT done while nurse calls . 07:25 Reassessment: Pt to CT. jl7 07:28 Reassessment: Attempted to call , no answer and the mailbox is full. jl7 07:42 Reassessment: Alprazolam, Cefedinir, Zolipidem, Percocet, and acetaminophen PM bagged jl7 and given to pharmacy. Vital Signs: 04:44 BP 128 / 49; Pulse 68; Resp 18 S; Temp 98.0(O); Pulse Ox 100% on R/A; Weight 64.41 kg jd3 (R); Height 5 ft. 5 in. (165.10 cm) (R); Pain 0/10; 06:27 BP 159 / 68; Pulse 72; Resp 18; Pulse Ox 99% on R/A; mt 06:54 BP 153 / 63; Pulse 67; Resp 19 S; Pulse Ox 97% on R/A; Pain 0/10; jd3 04:44 Body Mass Index 23.63 (64.41 kg, 165.10 cm) jd3 ED Course: 04:19 Patient arrived in ED. rg2 04:28 Mateo Fox MD is Attending Physician. alec 04:31 Willi Doshi, ALCIDES is Primary Nurse. jd3 04:39 Triage completed. jd3 04:45 Arm band placed on. jd3 04:46 Bozena Piña MD is Hospitalizing Provider. alec 04:49 Patient has correct armband on for positive identification. Placed in gown. Bed in low jd3 position. Call light in reach. Side rails up X2. 06:10 Missed attempt(s): 18 gauge in right x 2 with midlines. Vein cannulated but iv line fc would not thread. . Bleeding controlled, band aid applied, catheter tip intact. 06:16 Mateo Guzman PA is PHCP. cp 06:25 Missed attempt(s): 18 gauge in right neck by Dr Fox. fc 06:30 Missed attempt(s): 24 gauge in right hand. fc 07:31 CT completed. Patient moved to CT via stretcher. Patient moved back from CT. bq 07:47 No provider procedures requiring assistance completed. Patient did not have IV access jl7 during this emergency room visit. Administered Medications: 06:47 Not Given (Physician Discretion): ProTONIX 40 mg IVP once jd3 06:48 Not Given (Physician Discretion; no IV access): foLIC Acid 1 mg IVPB once jd3 06:48 Not Given (Physician Discretion; no IV access): Thiamine 100 mg IV at bolus once jd3 06:48 Not Given (no IV access): Rocephin - (cefTRIAXone) 1 grams IVPB once over 30 mins; (mix jd3 in 50 mL NS) 06:49 Not Given (Physician Discretion; no IV access): NS 0.9% 1000 ml IV at 125 ml/hr jd3 continuous Outcome: 04:48 Decision to Hospitalize by Provider. alec 07:47 Admitted to Tele accompanied by [facility], via stretcher, room 402, Report called to jlAshish Vasques RN 07:47 Condition: stable 07:47 Discharge instructions given to patient, Instructed on the need for admit, Demonstrated understanding of Pt educated on reason for admission. Pt continues to say I want to go home. 07:53 Patient left the ED. jl7 Signatures: Emerita Gusman rg2 Mateo Fox MD MD cha Quilty, Betty bq Chretien, Felicia, RN Mateo Tamayo PA PA cp Leal, Jahala, RN RN [email or web address] Love Andrew mt, Jonathon, RN RN jd3 Corrections: (The following items were deleted from the chart) 05:07 04:46 Neuro: Level of Consciousness is awake, Oriented to person, place, Pupils are jd3 PERRLA, jd3 05:07 04:48 Reassessment: pt refusing care jd3 jd3 06:47 04:55 Reassessment: Patient appears in no apparent distress at this time. Patient jd3 and/or family updated on plan of care and expected duration. Pain level reassessed. provider discussed plan of care with pt. pt is now complying with treatment. jd3 06:47 05:45 Reassessment: Patient appears in no apparent distress at this time. Patient jd3 and/or family updated on plan of care and expected duration. Pain level reassessed. jd3 06:53 05:20 Reassessment: Patient appears in no apparent distress at this time. Patient jd3 and/or family updated on plan of care and expected duration. Pain level reassessed. provider discussed plan of care with pt. pt is now complying with treatment. jd3
[2018-03-26] MEDS ORDERED: ALPRAZOLAM 0.25 MG TABLET PO PRN (05:19)
[2018-03-26] MEDS ORDERED: ONDANSETRON 4 MG/2 ML VIAL IV PRN (05:19)
[2018-03-26] MEDS ORDERED: MAGNESIUM HYDROXIDE 8% 30 ML PO PRN (05:19)
[2018-03-26] MEDS ORDERED: ACETAMINOPHEN 500 MG TAB PO PRN (05:19)
[2018-03-26] MEDS ORDERED: NA CHLORIDE 0.9% 1,000 ML IV SCH (06:00)
[2018-03-26] MEDS ORDERED: LEVOTHYROXINE SOD 0.1 MG TAB PO SCH (06:00)
[2018-03-26 06:52] LABS: Absolute Lymphocytes (CBC) 0.3 K/uL (0.7-4.9); Absolute Monocytes 0.5 K/uL (0.1-1.3); Absolute Neutrophil 5.2 K/uL (1.8-8.0); Basophils % 1.3 % (0-1.3); Eosinophils % 1.1 % (0-4.4); Hematocrit 27.6 % (36.0-45.0); Lymphocytes % 5.4 % (15.3-44.8); MCH 31.5 pg (27.0-35.0); MCV 93.6 fL (80-100); MPV 7.9 fL (7.6-11.3); Monocytes % 7.4 % (3.3-12.3); RBC Red Blood Cell Count 2.95 M/uL (3.86-4.86)
[2018-03-26 07:09] LABS: Urine Blood NEGATIVE (NEG); Urine Glucose NEGATIVE (NEG); Urine Protein NEGATIVE (NEG)
[2018-03-26 07:34] LABS: Barbiturates NEGATIVE; Benzodiazepines POSITIVE; Cocaine NEGATIVE; METHAMPHETAM NEGATIVE (NEGATIVE); Opiates NEGATIVE; Phencyclidine NEGATIVE; THC Cannibis NEGATIVE
--- NOTE | 2018-03-26 07:34 | P.HP ---
Certification for Inpatient Patient admitted to: Observation With expected LOS: <2 Midnights Patient will require the following post-hospital care: Rehabilitation Practitioner: I am a practitioner with admitting privileges, knowledge of patient current condition, hospital course, and medical plan of care. Services: Services provided to patient in accordance with Admission requirements found in Title 42 Section 412.3 of the Code of Federal Regulations <JoseKajal - Last Filed: 03/26/18 07:43> Patient admitted to: Observation With expected LOS: <2 Midnights Patient will require the following post-hospital care: None Practitioner: I am a practitioner with admitting privileges, knowledge of patient current condition, hospital course, and medical plan of care. Services: Services provided to patient in accordance with Admission requirements found in Title 42 Section 412.3 of the Code of Federal Regulations <Bozena Piña - Last Filed: 03/26/18 08:01> Patient admitted to: Observation With expected LOS: <2 Midnights Patient will require the following post-hospital care: None Practitioner: I am a practitioner with admitting privileges, knowledge of patient current condition, hospital course, and medical plan of care. Services: Services provided to patient in accordance with Admission requirements found in Title 42 Section 412.3 of the Code of Federal Regulations <Vineet Charlton - Last Filed: 03/26/18 13:17> Patient History Date of Service: 03/26/18 Primary Care Provider: Hasmukh Alford Reason for admission: fall, ams History of Present Illness: Pt was seen at [facility] 03/24/18 at 1149 and Dx UTI. Rx Cefdinir. Pt went home and apparently took some pain medications and fell. She arrived initially to [facility] 03/25/18 at 1919. She was evaluated, head CT performed. Pt discharged home with instructions to f/u with Dr. Gagnon. brought pt to our ED again 03/26/18 at 0440 second to additional fall and AMS. PT refuses lab evaluation. States she saw Dr. Piña this am and told him she refused admission and wanted to go home. Upon my evaluation in the ED, Ms. Padron instucted me to phone her and discharge her home. Encouraged pt to have some breakfast and re-evaluate. Pt states her will take her to breakfast. phoned with no answer. Asked pt to consent to CT of her head because of additional fall and encouraged her to have some breakfast and contact will be made with her Spouse. Pt consents to this but declines admission. - Past Medical/Surgical History Diabetic: No -: Hypertension -: Hypothyroidism -: B-cell lymphoma -: DDD/DJD of spine -: Chronic recurrent UTI requiring long-term antibiot -: shingles ( ) -: Vertigo -: Anxiety -: Hysterectomy -: Cholecystectomy -: Gastric torsion repair -: Hip surgery -: Knee surgery -: Port-A-Cath placement and removal -: left breast removal -: TONSILLECTOMY Psychosocial/ Personal History: The patient is originally from [place]. She moved to the area in July. She is . She has 3 children. - Family History Mother -: Heart disease, Hypertension, Diabetes, Kidney disease Father -: Heart disease, Diabetes, Other (see notes) Notes: Alzheimers - Social History Alcohol use: No CD- Drugs: No Caffeine use: No Place of Residence: Home <Kajal Garcia - Last Filed: 03/26/18 07:43> Date of Service: 03/26/18 <Bozena Piña - Last Filed: 03/26/18 08:01> Date of Service: 03/26/18 Home medications list reviewed: Yes - Past Medical/Surgical History Diabetic: No - Social History Smoking Status: Never smoker Alcohol use: No CD- Drugs: No Caffeine use: No Place of Residence: Home <Vineet Charlton - Last Filed: 03/26/18 13:17> Allergies prochlorperazine [From Compazine] Allergy (Intermediate, Verified 12/08/17 12:55 ) PYSCHOSIS Home Medications: Alprazolam [Xanax*] 1 mg PO BEDTIME 09/07/16 Aspirin 81 mg PO DAILY 09/07/16 Levothyroxine [Synthroid*] 0.1 mg PO 0600 09/07/16 Metoprolol/Hydrochlorothiazide [Metoprolol-Hctz 50-25 mg Tab] 1 tab PO BID 09/07 Multivitamin [Multiple Vitamins] 1 tab PO DAILY 09/07/16 Omeprazole Magnesium [Prilosec Otc] 20 mg PO BID 09/07/16 Oxycodone HCl/Acetaminophen [Endocet 5-325 Tablet] 2 tab PO BID 09/07/16 Triamcinolone 0.1% Crm [Kenalog 0.1% Cream*] 1 appl TOP BID 06/28/17 Dicyclomine HCl 1 tab PO BID 09/08/17 Meclizine HCl 1 tab PO DAILY 09/08/17 Review of Systems General: Weakness Eyes: Unremarkable ENT: Unremarkable Respiratory: Unremarkable Cardiovascular: Unremarkable Gastrointestinal: Unremarkable Genitourinary: Unremarkable Musculoskeletal: Unremarkable Integumentary: Bruising Neurological: As per HPI Lymphatics: Unremarkable <Kajal Garcia - Last Filed: 03/26/18 07:43> Physical Examination - Physical Exam General: In no apparent distress, Disheveled HEENT: Normocephalic, PERRLA, Mucous membr. moist/pink Neck: Supple Respiratory: Clear to auscultation bilaterally Cardiovascular: Edema (mild with generalized poor muscle tone) Capillary refill: <2 Seconds Gastrointestinal: Normal bowel sounds Musculoskeletal: No clubbing, No tenderness Integumentary: Other (areas of old ecchymosis) External genitalia: Deferred Rectal: Deferred <Kajal Garcia - Last Filed: 03/26/18 07:43> - Physical Exam Neurological: Normal speech, Normal strength at 5/5 x4 extr, Normal tone, Normal affect <Vineet Charlton - Last Filed: 03/26/18 13:17> Assessment and Plan - Problems (Diagnosis) (1) Fall Onset Date: ~03/25/18 Status: Acute Plan: Fall precautions in ED and hospital. Pt may benefit from outpatient physical therapy. Limit access to medications that may contribute to falls. Remind pt often to request assistance and rise from seated position slowly and with caution Qualifiers: Encounter type: initial encounter Qualified Code(s): W19.XXXA - Unspecified fall, initial encounter (2) UTI (urinary tract infection) Onset Date: 06/29/17 Status: Acute Qualifiers: Urinary tract infection type: site unspecified Hematuria presence: without hematuria Qualified Code(s): N39.0 - Urinary tract infection, site not specified - Advance Directives Does patient have a Living Will: No Does patient have a Durable POA for Healthcare: No <Kajal Garcia - Last Filed: 03/26/18 07:43> - Problems (Diagnosis) (1) Chronic pain disorder Status: Chronic (2) DJD (degenerative joint disease) Onset Date: 06/29/17 Status: Chronic Qualifiers: Osteoarthritis type: unspecified Laterality: bilateral (3) Fall Onset Date: ~03/25/18 Status: Acute Plan: Patient admitted for observation due to fall. Qualifiers: Encounter type: initial encounter Qualified Code(s): W19.XXXA - Unspecified fall, initial encounter (4) History of B-cell lymphoma Onset Date: 06/29/17 Status: Chronic (5) Hypertension Onset Date: 06/29/17 Status: Chronic Qualifiers: Hypertension type: essential hypertension Qualified Code(s): I10 - Essential (primary) hypertension (6) Hypothyroidism Onset Date: 06/29/17 Status: Chronic Qualifiers: Hypothyroidism type: acquired Qualified Code(s): E03.9 - Hypothyroidism, unspecified (7) Obesity (BMI 30.0-34.9) Onset Date: 09/09/17 Status: Chronic - Plan Patient admitted due to fall. She apparently had been seen initially in the ER sent home and then came back. Patient refuse lab on the 2nd time. Repeat CT scan unremarkable. Patient was admitted for observation. Discharge Plan: Home Plan to discharge in: 24 Hours - Advance Directives Does patient have a Living Will: No Does patient have a Durable POA for Healthcare: No - Code Status/Comfort Care Code Status Assessed: No Physician Review: Patient Assessed, Agree with Above Assessment and Plan Time Spent Managing Pts Care (In Minutes): 55 <Vineet Charlton - Last Filed: 03/26/18 13:17>
[2018-03-26 07:43] LABS: Protime INR 0.95
--- NOTE | 2018-03-26 07:55 | RAD REPORT ---
EXAM DESCRIPTION: CT - [id number] - 03/26/2018 7:32 am CLINICAL HISTORY: Fall, head and neck injury, history of lymphoma and breast cancer COMPARISON: CT imaging March 25 TECHNIQUE: Axial 5 mm thick images of the head were obtained. Axial 2 mm thick images of the cervic al spine were obtained with sagittal and coronal reconstruction images generated and reviewed. All CT scans are performed using dose optimization technique as appropriate and may include automated exposure control or mA/KV adjustment according to patient size. FINDINGS: No intracranial hemorrhage, mass, edema or acute intracranial finding. No acute cortical b ased infarction. Patient has atrophy and chronic ischemic changes not clearly different from the prio r study. No history available indicating a specific neurologic deficit. Chronic ischemic pattern, par ticularly posterior limb internal capsule on the left, could mask nonhemorrhagic infarction. Ventricl es are in proportion to volume loss. No extra-axial fluid collections. Mastoid air cells and paranasa l sinuses are clear. No globe or orbit abnormality seen. Prominent cervical spine degenerative changes are present primarily involving the facet joints. No fr acture or acute cervical spine finding. No changes from prior day study. No paraspinal mass or hematoma. IMPRESSION: No hemorrhage or acute cortical infarction. Exam is stable from prior day imaging. Chron ic ischemic change can mask nonhemorrhagic acute ischemia. Stable cervical spine degenerative change. No acute finding.
[2018-03-26 08:11] LABS: ALT/SGPT 15 IU/L (10-60); AST/SGOT 22 IU/L (10-42); Albumin 3.6 g/dL (3.2-5.5); Alkaline Phosphatase 133 IU/L (42-121); BUN Blood Urea Nitrogen 11 mg/dL (6-20); Bicarbonate 19 mEq/L (21-31); Bilirubin Direct 0.1 mg/dL (0-0.2); Bilirubin Total 0.6 mg/dL (0.3-1.2); CKMB Creatine Kinase MB 2.5 ng/ml (0.3-4.0); Creatine Phosphokinase 37 IU/L (22-269); Glucose Level 77 mg/dL (65-120); Magnesium 1.6 mg/dL (1.8-2.5); Potassium 3.9 mEq/L (3.6-5.0); Protein, Total 5.9 g/dL (6.0-8.3); Sodium Level 141 mEq/L (135-145)
--- NOTE | 2018-03-26 08:26 | P.DS ---
Admission Date: 03/26/18 Discharge Date: 03/26/18 Primary Care Provider: Hasmukh Alford Disposition: ROUTINE DISCHARGE Discharge Condition: GOOD Reason for Admission: fall, ams Consultations: Pt declines hospital social worker consult for rehab - Problems (1) Fall Onset Date: ~03/25/18 Current Visit: Yes Status: Chronic Qualifiers: Encounter type: initial encounter Qualified Code(s): W19.XXXA - Unspecified fall, initial encounter (2) UTI (urinary tract infection) Onset Date: 06/29/17 Current Visit: No Status: Acute Qualifiers: Urinary tract infection type: site unspecified Hematuria presence: without hematuria Qualified Code(s): N39.0 - Urinary tract infection, site not specified Brief History of Present Illness: Pt was seen at [facility] 03/24/18 at 1149 and Dx UTI. Rx Cefdinir. Pt went home and apparently took some pain medications and fell. She arrived initially to [facility] 03/25/18 at 1919. She was evaluated, head CT performed. Pt discharged home with instructions to f/u with Dr. Gagnon. brought pt to our ED again 03/26/18 at 0440 second to additional fall and AMS. PT refuses lab evaluation. States she saw Dr. Piña this am and told him she refused admission and wanted to go home. Upon my evaluation in the ED, Ms. Padron instucted me to phone her and discharge her home. Encouraged pt to have some breakfast and re-evaluate. Pt states her will take her to breakfast. phoned with no answer. Asked pt to consent to CT of her head because of additional fall and encouraged her to have some breakfast and contact will be made with her Spouse. Pt consents to this but declines admission. Hospital Course: Pt refused lab from ED. States she does not desire admission Vital Signs/Physical Exam: Temp Pulse Resp BP Pulse Ox 98.0 F 67 18 134/65 98 03/26/18 04:44 03/26/18 08:08 03/26/18 08:08 03/26/18 08:08 03/26/18 08:08 Laboratory Data at Discharge: WBC 6.2 K/uL (4.3-10.9) D 03/26/18 06:20 Hgb 9.3 g/dL (12.0-15.0) L 03/26/18 06:20 Hct 27.6 % (36.0-45.0) L 03/26/18 06:20 Plt Count 159 K/uL (152-406) 03/26/18 06:20 PT 11.2 SECONDS (9.5-12.5) 03/26/18 06:20 INR 0.95 03/26/18 06:20 APTT 20.7 SECONDS (24.3-36.9) L 03/26/18 06:20 B-Natriuretic Peptide 166 pg/ml (<=100) H 03/26/18 06:20 Home Medications: Alprazolam [Xanax*] 1 mg PO BEDTIME 09/07/16 Aspirin 81 mg PO DAILY 09/07/16 Levothyroxine [Synthroid*] 0.1 mg PO 0600 09/07/16 Metoprolol/Hydrochlorothiazide [Metoprolol-Hctz 50-25 mg Tab] 1 tab PO BID 09/07 Multivitamin [Multiple Vitamins] 1 tab PO DAILY 09/07/16 Omeprazole Magnesium [Prilosec Otc] 20 mg PO BID 09/07/16 Oxycodone HCl/Acetaminophen [Endocet 5-325 Tablet] 2 tab PO BID 09/07/16 Triamcinolone 0.1% Crm [Kenalog 0.1% Cream*] 1 appl TOP BID 06/28/17 Dicyclomine HCl 1 tab PO BID 09/08/17 Meclizine HCl 1 tab PO DAILY 09/08/17
[2018-03-26 08:50] LABS: Alcohol Serum/Plasma < 10 mg/dl
[2018-03-26] MEDS ORDERED: ENOXAPARIN 40 MG/0.4 ML SQ SCH (09:00)
[2018-03-26] MEDS ORDERED: TRIAMCINOLONE 0.1% CREAM 15GM TOP SCH (09:00)
[2018-03-26] MEDS ORDERED: Oxycodone HCl/Acetaminophen 1 TAB TAB PO SCH (09:00)
[2018-03-26] MEDS ORDERED: ASPIRIN 81 MG CHEWABLE TABLET PO SCH (09:00)
[2018-03-26] MEDS ORDERED: MECLIZINE HCL 12.5 MG TAB PO SCH (09:00)
[2018-03-26 10:04] LABS: Thyroid Stimulating Hormone 0.52 uIU/mL (0.34-5.60)
[2018-03-26] MEDS ORDERED: ALPRAZOLAM 1 MG TABLET PO SCH (21:00)
== END 2018-03-26 11:42 | disposition home or self-care (01) ==
LOC: ER 04:13 → ERHOLD 04:57 → 2ND 06:18
PROVIDERS: ADMIT Hospitalist; ATTEND Family Medicine
DX: R41.82 Altered mental status, unspecified (principal); N39.0 Urinary tract infection, site not specified; Z91.81 History of falling; Z87.828 Personal history of other (healed) physical injury and trauma; M19.90 Unspecified osteoarthritis, unspecified site; E03.9 Hypothyroidism, unspecified; I10 Essential (primary) hypertension; Z85.72 Personal history of non-Hodgkin lymphomas
CPT/HCPCS: 36415 ×2; 70450 ×2; 72125 ×2; 73700; 80048 ×2; 80076; 80307 ×9; 80320; 80329 ×2; 81003; 82550; 82553; 83735; 83880; 84443; 84484; 85025 ×2; 85610; 85730; 87086 ×2; 87088 ×2; 96360; 96361; 99284 ×2; 99285; G0378 ×2; J7030; 81015

== ENCOUNTER 2018-03-26 12:51 | Emergency (ER) | payer OTHER, BC ==
--- NOTE | 2018-03-26 14:23 | EDPHYS ---
Physician Documentation [facility] Name: Tina Padron Age: 72 yrs Sex: Female : 1945 Arrival Date: 03/26/2018 Time: 13:39 Bed 4 Private MD: ED Physician Bozena Lindsey HPI: 03/26 14:48 This 72 yrs old Female presents to ER via Wheelchair with complaints of Knee ma2 Pain. 14:20 Trauma demographics: Date: March 26, 2018. Mechanism of injury: Fall:. Associated ma2 injuries: The patient sustained injury to the low back. Onset: The symptoms/episode began/occurred gradually, 1 day(s) ago. fell earlier today, was in the er and seen for another fall last night, patient is AOx4 and does not want to be seen or examined, she states her left leg hurt, she knows it is not broken and wants to go home, her spause brought her in againist her will, . Historical: - Immunization history:: Adult Immunizations up to date. - Social history:: Smoking status: Patient/guardian denies using tobacco. - Ebola Screening: : Patient negative for fever greater than or equal to 101.5 degrees Fahrenheit, and additional compatible Ebola Virus Disease symptoms Patient denies exposure to infectious person Patient denies travel to an Ebola-affected area in the 21 days before illness onset. ROS: 14:22 All other systems are negative. ma2 14:48 Constitutional: Negative for fever, chills, and weight loss, ENT: Negative for injury, ma2 pain, and discharge. Exam: 14:48 Constitutional: This is a well developed, well nourished patient who is awake, alert, ma2 and in no acute distress. 14:48 Constitutional: The patient appears refuse physical exam Vital Signs: 13:45 iw 13:45 pt refusing vital signs iw MDM: 13:44 Patient medically screened. ma2 14:22 Differential diagnosis: extremity fracture, C spine fracture, T spine fracture, L spine ma2 fracture. Data reviewed: vital signs, nurses notes. Counseling: I had a detailed discussion with the patient and/or guardian regarding: the historical points, exam findings, and any diagnostic results supporting the discharge/admit diagnosis, the need for further work-up and treatment in the hospital, to return to the emergency department if symptoms worsen or persist or if there are any questions or concerns that arise at home. 16:14 ED course: Left leg CT wnl . ma2 03/26 15:05 Order name: Low Extremity Wo Cont; Complete Time: 16:14 EDMS Administered Medications: No medications were administered Disposition: 03/26/18 16:15 Discharged to Home. Impression: Pain in left knee. - Condition is Stable. - Discharge Instructions: Knee Pain, [id number]. - Medication Reconciliation Form, Thank You Letter, Antibiotic Education, Prescription Opioid Use form. - Follow up: Private Physician; When: Tomorrow; Reason: Continuance of care. - Problem is new. - Symptoms have improved. Signatures: Dispatcher [employer] EDMS Raúl Mcrae RN RN ae1 Bozena Lindsey MD MD ma2 Corrections: (The following items were deleted from the chart) 14:33 14:23 03/26/2018 14:23 Discharged to Home. Impression: Fall (on) (from) other stairs ae1 and steps. Condition is Stable. Forms are Medication Reconciliation Form, Thank You Letter, Antibiotic Education, Prescription Opioid Use. Follow up: Private Physician; When: Tomorrow; Reason: Continuance of care. Problem is new. Symptoms are unchanged. ma2 15:02 14:33 03/26/2018 14:23 Discharged to Home. Impression: Fall (on) (from) other stairs iw and steps. Condition is Stable. Forms are Medication Reconciliation Form, Thank You Letter, Antibiotic Education, Prescription Opioid Use. Follow up: Private Physician; When: Tomorrow; Reason: Continuance of care. Problem is new. Symptoms are unchanged. ae1 16:29 16:15 03/26/2018 16:15 Discharged to Home. Impression: Pain in left knee. Condition is ae1 Stable. Forms are Medication Reconciliation Form, Thank You Letter, Antibiotic Education, Prescription Opioid Use. Follow up: Private Physician; When: Tomorrow; Reason: Continuance of care. Problem is new. Symptoms have improved. ma2
--- NOTE | 2018-03-26 14:23 | ER ---
Nurse's Notes [facility] Name: Tina Padron Age: 72 yrs Sex: Female : 1945 Arrival Date: 03/26/2018 Time: 13:39 Bed 4 Private MD: Diagnosis: Pain in left knee Presentation: 03/26 13:41 Presenting complaint: states: pt was discharged from hospital earlier today, pt iw refused to get out of the car when he got home, is worried that her left knee is injured, pt c/o pain to left knee. Transition of care: patient was not received from another setting of care. Onset of symptoms was March 26, 2018. Risk Assessment: Do you want to hurt yourself or someone else? Patient reports no desire to harm self or others. Initial Sepsis Screen: Does the patient meet any 2 criteria? No. Patient's initial sepsis screen is negative. Does the patient have a suspected source of infection? No. Patient's initial sepsis screen is negative. Care prior to arrival: None. 13:41 Method Of Arrival: Wheelchair iw 13:41 Acuity: TYLOR 4 iw Triage Assessment: 15:00 General: Appears comfortable, unkempt, Behavior is agitated, anxious, uncooperative. ae1 Pain: Denies pain. Neuro: Level of Consciousness is awake, alert, Oriented to person, place. Cardiovascular: Patient's skin is warm and dry. Respiratory: Airway is patent. Derm: Skin is pale. Historical: - Immunization history:: Adult Immunizations up to date. - Social history:: Smoking status: Patient/guardian denies using tobacco. - Ebola Screening: : Patient negative for fever greater than or equal to 101.5 degrees Fahrenheit, and additional compatible Ebola Virus Disease symptoms Patient denies exposure to infectious person Patient denies travel to an Ebola-affected area in the 21 days before illness onset. Screenin:11 Abuse screen: Denies threats or abuse. Nutritional screening: No deficits noted. ae1 Tuberculosis screening: No symptoms or risk factors identified. 16:27 Fall Risk Fall in past 12 months (25 points). Secondary diagnosis (15 points) Patient ae1 is confused. . No IV (0 pts). Ambulatory Aid- None/Bed Rest/Nurse Assist (0 pts). Gait- Weak (10 pts.). Mental Status- Overestimates/Forgets Limitations (15 pts.). Assessment: 13:40 General: Appears uncomfortable, unkempt, Behavior is combative, restless, ae1 uncooperative, Patient refuses vital signs. Patient states " I have rights" patient is using abusive language and derogatory terms. . 14:05 Reassessment: is at bedside, patient is arguing with . ae1 Vital Signs: 13:45 iw 13:45 pt refusing vital signs iw ED Course: 13:39 Patient arrived in ED. iw 13:44 Bozena Lindsey MD is Attending Physician. ma2 13:45 Triage completed. iw 14:01 Raúl Mcrae, RN is Primary Nurse. ae1 14:40 Primary Nurse role handed off by Raúl Mcrae RN iw 15:11 Raúl Mcrae, RN is Primary Nurse. ae1 15:20 Arm band placed on right wrist. ae1 15:26 Patient refuses to get in exam bed, continues to yell obscenities at at the ae1 bedside. Patient refuses CT and is now agreeing to get a CT. Patient refuses monitoring equipment. 15:43 Low Extremity Wo Cont In Process Unspecified. EDMS 16:27 No provider procedures requiring assistance completed. Patient did not have IV access ae1 during this emergency room visit. Administered Medications: No medications were administered Outcome: 14:23 Discharge ordered by . ma2 14:33 Patient left the ED. ae1 16:15 Discharge ordered by . ma2 16:28 Discharged to home via wheelchair, with significant other. ae1 16:28 Condition: stable 16:28 Discharge instructions given to significant other, Instructed on discharge instructions, follow up and referral plans. Demonstrated understanding of instructions. 16:29 Patient left the ED. ae1 Signatures: Dispatcher [employer] EDDinora Mariee RN RN iw Raúl Mcrae RN RN ae1 Bozena Lindsey MD MD ma2
--- NOTE | 2018-03-26 16:03 | RAD REPORT ---
EXAM DESCRIPTION: CT - Low Extremity Wo Cont - 03/26/2018 3:43 pm CLINICAL HISTORY: Knee pain, inability to bear weight COMPARISON: Pelvis and left femur films January 2018 TECHNIQUE: Axial 2 millimeter thick images were obtained from above the acetabulum to the mid calf l evel. FINDINGS: Imaged portions of the sacral ala intact. SI joint degenerative change present. No fractur e of the imaged portions of the pelvis or left acetabulum. No AVN or focal femoral head abnormality. No proximal femur fracture. Degenerative change at the hip joint is [id number]. No periarticula r mass or hematoma. Remainder the femur shows no fracture change. Motion degradation limits femur detail at the knee join t. Patient has very advanced degenerative change with large marginal spurs. There is narrowing of the lateral margin patellofemoral joint space. Moderate joint effusion is present. No fat fluid level se en. Patient has substantial degenerative change along the tibial plateau with marginal spurring and spurr ing of the tibial spine. No tibial plateau fracture identifiable. More distally tibia and fibula show no acute findings. No air or foreign body in the soft tissues. Minimal edema in the subcutaneous fat posteriorly. No foc al infectious/ inflammatory stranding. No air or foreign body seen. No edema or hematoma of the skele ross musculature. IMPRESSION: Very advanced knee joint degenerative change without fracture or acute bone finding iden tifiable. Moderate knee joint effusion with no calcified loose body identified. No hematoma, mass or suspicious finding of the muscle or soft tissues.
== END 2018-03-26 16:29 | disposition home or self-care (01) ==
LOC: ER 12:51
DX: M25.562 Pain in left knee (principal)
CPT/HCPCS: 73700; 99284

== ENCOUNTER 2018-04-22 11:59 | Emergency (ER) | payer OTHER ==
--- NOTE | 2018-04-22 13:27 | EDPHYS ---
Physician Documentation [facility] Name: Tina Padron Age: 72 yrs Sex: Female : 1945 Arrival Date: 04/22/2018 Time: 12:01 Bed 15 Private MD: Judd Gagnon R ED Physician Rashawn Wagner HPI: 04/22 13:36 This 72 yrs old Female presents to ER via EMS with complaints of Altered kdr Mental Status. 13:36 The patient presents with confusion, decreased responsiveness. Onset: The kdr symptoms/episode began/occurred gradually, this morning. Possible causes: unknown, The patient has been self medicating with Percocet and Xanax at home. 13:53 Associated signs and symptoms: The patient has no apparent associated signs or kdr symptoms. Current symptoms: In the emergency department the patient's symptoms are unchanged from the initial presentation. Patient's baseline: Neuro: alert and fully oriented, Motor: no deficits, Ambulation: walks without assistance, Speech: normal for age, The patient has a previous history of Psych issues. The patient has experienced similar episodes in the past, a few times, several times. The patient was recently diagnosed with a UTI and was here in the ED earlier today for an outpatient abx injection. Historical: - Allergies: 12:08 Prochlorperazine Maleate; jl7 - Immunization history:: Adult Immunizations unknown. - Social history:: Smoking status: unknown. - Ebola Screening: : No symptoms or risks identified at this time. ROS: 13:53 Constitutional: Negative for fever, chills, and weight loss, Eyes: Negative for injury, kdr pain, redness, and discharge, ENT: Negative for injury, pain, and discharge, Neck: Negative for injury, pain, and swelling, Cardiovascular: Negative for chest pain, palpitations, and edema, Respiratory: Negative for shortness of breath, cough, wheezing, and pleuritic chest pain, Abdomen/GI: Negative for abdominal pain, nausea, vomiting, diarrhea, and constipation, Back: Negative for injury and pain, : Negative for injury, bleeding, discharge, and swelling, Skin: Negative for injury, rash, and discoloration, Allergy/Immunology: Negative for hives, rash, and allergies, Endocrine: Negative for neck swelling, polydipsia, polyuria, polyphagia, and marked weight changes, Hematologic/Lymphatic: Negative for swollen nodes, abnormal bleeding, and unusual bruising. 13:53 MS/extremity: Positive for decreased range of motion, The patient has a prior left shoulder fracture about three months ago and continues to have some limited mobility and pain in that arm. 13:53 Neuro: Positive for altered mental status, The patient is not able to localize herself in terms of time \T\ space.. Exam: 13:53 Constitutional: This is a well developed, well nourished patient who is awake, alert, kdr and in no acute distress. Head/Face: Normocephalic, atraumatic. Eyes: Pupils equal round and reactive to light, extra-ocular motions intact. Lids and lashes normal. Conjunctiva and sclera are non-icteric and not injected. Cornea within normal limits. Periorbital areas with no swelling, redness, or edema. Neck: Trachea midline, no thyromegaly or masses palpated, and no cervical lymphadenopathy. Supple, full range of motion without nuchal rigidity, or vertebral point tenderness. No Meningismus. Chest/axilla: Normal chest wall appearance and motion. Nontender with no deformity. No lesions are appreciated. Cardiovascular: Regular rate and rhythm with a normal S1 and S2. No gallops, murmurs, or rubs. Normal PMI, no JVD. No pulse deficits. Respiratory: Lungs have equal breath sounds bilaterally, clear to auscultation and percussion. No rales, rhonchi or wheezes noted. No increased work of breathing, no retractions or nasal flaring. Abdomen/GI: Soft, non-tender, with normal bowel sounds. No distension or tympany. No guarding or rebound. No evidence of tenderness throughout. Back: No spinal tenderness. No costovertebral tenderness. Full range of motion. Neuro: Awake and alert, GCS 15, oriented to person, place, time, and situation. Cranial nerves II-XII grossly intact. Motor strength 5/5 in all extremities. Sensory grossly intact. Cerebellar exam normal. Normal gait. Psych: Awake, alert, with orientation to person, place and time. Behavior, mood, and affect are within normal limits. 13:53 ENT: Mouth: Oral mucosa: dry. Vital Signs: 12:12 BP 150 / 71; Pulse 80; Resp 16 S; Temp 97.8(TE); Pulse Ox 99% on R/A; Pain 0/10; jl7 MDM: 13:27 Patient medically screened. kdr 13:53 Data reviewed: vital signs, nurses notes, lab test result(s), radiologic studies. kdr Counseling: I had a detailed discussion with the patient and/or guardian regarding: the historical points, exam findings, and any diagnostic results supporting the discharge/admit diagnosis, lab results. 04/22 12:39 Order name: CBC with Diff; Complete Time: 14:19 kdr 04/22 12:39 Order name: Chem 7; Complete Time: 14:33 kdr Administered Medications: 13:10 Not Given (Patient Refused): NS 0.9% 1000 ml IV at 1 bolus Per protocol; 1000 mL bolus [facility] 14:06 Drug: NS 0.9% 1000 ml Route: IV; Rate: 1 bolus; Site: left hand; [facility] 04/23 14:30 Follow up: IV Status: pt pulled IV out and refused another. [facility] Disposition: 04/22/18 14:39 Discharged to Home. Impression: Altered mental status, unspecified, Weakness, Medication abuse (Percoset \T\ Xanax). - Condition is Stable. - Discharge Instructions: Confusion, Polysubstance Abuse, Weakness, Rism-so-Ncez, Altered Mental Status. - Medication Reconciliation Form, Thank You Letter form. - Follow up: Judd Gagnon MD; When: 2 - 3 days; Reason: If symptoms return, Further diagnostic work-up, Recheck today's complaints, Continuance of care, Re-evaluation by your physician. - Problem is an acute exacerbation. - Symptoms have improved. Signatures: Dispatcher [employer] EDMS Rashawn Wagner MD MD [facility] Alba Stanley RN RN jl7 Corrections: (The following items were deleted from the chart) 04/22 13:10 12:39 Urine Dipstick-Ancillary ordered. [facility] jl7 13:53 13:27 04/22/2018 13:27 Discharged to Home. Impression: Altered mental status, kdr unspecified - Likely inappropirate self medication with naroctics and benzodiazepines. Condition is Fair. Forms are Medication Reconciliation Form, Thank You Letter, Antibiotic Education, Prescription Opioid Use. Follow up: Judd Gagnon; When: 2 - 3 days; Reason: If symptoms return, Further diagnostic work-up, Recheck today's complaints, Continuance of care, Re-evaluation by your physician. kdr 15:22 14:39 04/22/2018 14:39 Discharged to Home. Impression: Altered mental status, jl7 unspecified; Weakness; Medication abuse (Percoset \T\ Xanax). Condition is Stable. Forms are Medication Reconciliation Form, Thank You Letter, Antibiotic Education, Prescription Opioid Use. Follow up: Judd Gagnon; When: 2 - 3 days; Reason: If symptoms return, Further diagnostic work-up, Recheck today's complaints, Continuance of care, Re-evaluation by your physician. Problem is an acute exacerbation. Symptoms have improved. kdr
--- NOTE | 2018-04-22 13:27 | ER ---
Nurse's Notes [facility] Name: Tina Padron Age: 72 yrs Sex: Female : 1945 Arrival Date: 04/22/2018 Time: 12:01 Bed 15 Private MD: Judd Gagnon R Diagnosis: Altered mental status, unspecified;Weakness;Medication abuse (Percoset \\T\\ Xanax) Presentation: 04/22 12:02 Presenting complaint: EMS states: Pt fell out of bed, called because he jl7 couldn't get her back in bed. Pt denies any pain but is A\\T\\Ox1 to person, baseline is A\\T\\Ox4. VSS. Transition of care: patient was not received from another setting of care. Onset of symptoms was April 22, 2018. Risk Assessment: Do you want to hurt yourself or someone else? Patient reports no desire to harm self or others. Initial Sepsis Screen: Does the patient meet any 2 criteria? No. Patient's initial sepsis screen is negative. Does the patient have a suspected source of infection? No. Patient's initial sepsis screen is negative. 12:02 Method Of Arrival: EMS: [facility] jl7 12:02 Acuity: TYLOR 3 jl7 12:15 Care prior to arrival: IV initiated. 22 GA, in the left antecubital area. jl7 12:15 Acuity: TYLOR 4 jl7 Triage Assessment: 12:08 General: Appears in no apparent distress. uncomfortable, Behavior is calm, cooperative. jl7 Pain: Denies pain. EENT: No signs and/or symptoms were reported regarding the EENT system. Neuro: Level of Consciousness is awake, alert, obeys commands, Oriented to person, place, time, situation, Speech is slurred. Cardiovascular: Patient's skin is warm and dry. Respiratory: Airway is patent Respiratory effort is even, unlabored, Respiratory pattern is regular, symmetrical. GI: No signs and/or symptoms were reported involving the gastrointestinal system. : No signs and/or symptoms were reported regarding the genitourinary system. Derm: Skin is pink, warm \\T\\ dry. Musculoskeletal: No signs and/or symptoms reported regarding the musculoskeletal system. Historical: - Allergies: 12:08 Prochlorperazine Maleate; jl7 - Immunization history:: Adult Immunizations unknown. - Social history:: Smoking status: unknown. - Ebola Screening: : No symptoms or risks identified at this time. Screenin:13 Abuse screen: Denies threats or abuse. Denies injuries from another. Nutritional jl7 screening: No deficits noted. Tuberculosis screening: No symptoms or risk factors identified. Fall Risk Fall in past 12 months (25 points). Total Wick Fall Scale indicates Low Risk Score (25-44 pts). Fall prevention measures have been instituted. Side Rails Up X 2 Placed close to Nursing Station Frequent Obs/Assesments occuring As available Patient and Family Educated on Fall Prevention Program and strategies. Assessment: 12:13 General: See triage assessment. Pt is A\\T\\Ox4, denies any pain or discomfort at this [facility] time.. 12:18 Reassessment: Pt's at bedside. jl7 12:30 Reassessment: Dr. Wagner at bedside. jl7 12:41 Reassessment: Pt refusing any treatment at this time. jl7 13:50 Reassessment: Pt agreed to bloodwork and IV fluids at this time. remains at [facility] bedside. 14:30 Reassessment: Pt pulled out IV and states "I want my pills!" Educated pt that she jl cannot have anymore medication right now. 15:00 Reassessment: Pt refusing to have vitals taken. jl7 Vital Signs: 12:12 BP 150 / 71; Pulse 80; Resp 16 S; Temp 97.8(TE); Pulse Ox 99% on R/A; Pain 0/10; jl7 ED Course: 12:01 Patient arrived in ED. mr 12:01 Judd Gagnon MD is Private Physician. mr 12:02 Alba Stanley, ALCIDES is Primary Nurse. jl7 12:04 Rashawn Wagner MD is Attending Physician. kdr 12:07 Triage completed. jl7 12:12 Arm band placed on right wrist. jl7 12:13 Patient has correct armband on for positive identification. Bed in low position. Call [facility] light in reach. Side rails up X 1. Pulse ox on. NIBP on. 12:16 Maintain EMS IV. Dressing intact. Site clean \\T\\ dry. jl7 13:25 Judd Gagnon MD is Referral Physician. kdr 14:00 Inserted saline lock: 22 gauge in left hand, using aseptic technique. Blood collected. jl7 14:37 Judd Gagnon MD is Referral Physician. kdr 15:21 Patient did not have IV access during this emergency room visit. jl7 15:21 No provider procedures requiring assistance completed. jl7 Administered Medications: 13:10 Not Given (Patient Refused): NS 0.9% 1000 ml IV at 1 bolus Per protocol; 1000 mL bolus jl7 14:06 Drug: NS 0.9% 1000 ml Route: IV; Rate: 1 bolus; Site: left hand; jl7 04/23 14:30 Follow up: IV Status: pt pulled IV out and refused another. jl7 Outcome: 04/22 13:27 Discharge ordered by . kdr 14:39 Discharge ordered by . kdr 15:21 Discharged to home via wheelchair, with family. jl7 15:21 Condition: stable 15:21 Discharge instructions given to patient, family, Instructed on discharge instructions, follow up and referral plans. Demonstrated understanding of instructions, follow-up care. 15:22 Patient left the ED. jl7 Signatures: Rashawn Wagner MD MD kdr Rivera, Maria mr Leal, Jahala, RN RN jl7
[2018-04-22] MEDS ORDERED: NA CHLORIDE 0.9% 1,000 ML ONE (14:01)
[2018-04-22 14:10] LABS: Absolute Lymphocytes (CBC) 0.6 K/uL (0.7-4.9); Absolute Monocytes 0.6 K/uL (0.1-1.3); Absolute Neutrophil 3.8 K/uL (1.8-8.0); Eosinophils % 0.8 % (0-4.4); Hematocrit 33.8 % (36.0-45.0); MCH 29.9 pg (27.0-35.0); MCV 92.4 fL (80-100); MPV 8.3 fL (7.6-11.3); RBC Red Blood Cell Count 3.66 M/uL (3.86-4.86)
[2018-04-22 14:31] LABS: Potassium 3.6 mmol/L (3.5-5.1)
== END 2018-04-22 15:22 | disposition home or self-care (01) ==
LOC: ER 11:59
DX: R41.82 Altered mental status, unspecified (principal); R53.1 Weakness; Z88.8 Allergy status to other drugs, medicaments and biological substances
CPT/HCPCS: 36415; 80048; 85025; 96360; 96361; 99284; J7030

== ENCOUNTER 2018-04-22 19:25 | Observation (INO) | payer OTHER, BC ==
--- NOTE | 2018-04-22 21:00 | RAD REPORT ---
EXAM DESCRIPTION: CT - [id number] - 04/22/2018 8:50 pm CLINICAL HISTORY: Trauma, head and neck injury. fall, confusion COMPARISON: Head C Spine Mpr Wo Con dated 03/26/2018; Head C Spine Mpr Wo Con dated 03/25/2018; Head C Spine Mpr Wo Con dated 01/16/2018 TECHNIQUE: Axial 5 mm thick images of the head were obtained. Axial 2 mm thick images of the cervical spine were obtained with sagittal and coronal reconstruction images generated and reviewed. All CT scans are performed using dose optimization technique as appropriate and may include automated exposure control or mA/KV adjustment according to patient size. FINDINGS: CT HEAD WITHOUT CONTRAST: No acute hemorrhage, hydrocephalus or extra-axial collection is identified.No areas of brain edema or midline shift. The paranasal sinuses and mastoids are clear.The calvarium is intact. CT CERVICAL SPINE WITHOUT CONTRAST: No fracture or subluxation.Mild midcervical spondylosis.No prevertebral soft tissues swelling is iden tified. IMPRESSION: No acute intracranial or cervical spine findings.
[2018-04-22 23:13] LABS: Urine Appearance CLOUDY; Urine Blood NEGATIVE (NEG); Urine Color DK YELLOW; Urine Glucose NEGATIVE (NEG); Urine Protein NEGATIVE (NEG); Urine Urobilinogen 0.2 mg/dL (0.2-1.0)
[2018-04-22 23:17] LABS: Urine Microscopic Reflex ORDER UMIC
[2018-04-22 23:49] LABS: Barbiturates NEGATIVE (NEGATIVE); Benzodiazepines POSITIVE (NEGATIVE); Cocaine NEGATIVE (NEGATIVE); METHAMPHETAM NEGATIVE (NEGATIVE); Methadone NEGATIVE (NEGATIVE); Opiates NEGATIVE (NEGATIVE); Phencyclidine NEGATIVE (NEGATIVE); THC Cannibis NEGATIVE (NEGATIVE)
[2018-04-23] MEDS ORDERED: VANCOMYCIN 1 GM/250 ML BAG ONE (00:19)
[2018-04-23] MEDS ORDERED: Levofloxacin 750mg IV 750 MG/150 ML BAG IV ONE (00:19)
[2018-04-23 00:31] LABS: Urine Culture Reflex Order NOT NEEDED
[2018-04-23 00:32] LABS: Urine Yeast MANY (NONE SEEN)
[2018-04-23 00:33] LABS: Urine Bacteria <20 /HPF (<20); Urine RBC NONE SEEN /HPF (NONE SEEN)
[2018-04-23 00:34] LABS: Urine Bilirubin NEGATIVE (NEG)
[2018-04-23] MEDS ORDERED: ONDANSETRON 4 MG/2 ML VIAL IV PRN (00:52)
[2018-04-23] MEDS ORDERED: ACETAMINOPHEN 500 MG TAB PO PRN (00:52)
--- NOTE | 2018-04-23 00:56 | ER ---
Nurse's Notes [facility] Name: Tina Padron Age: 72 yrs Sex: Female : 1945 Arrival Date: 04/22/2018 Time: 19:26 Bed 23 Private MD: Nadja Alford K Diagnosis: Altered Mental Status;Benzodiazipine Toxicity;Complicated UTI Presentation: 04/22 19:45 Presenting complaint: states: pt was seen here earlier today for slurred speech aa1 and trouble walking and 2 falls and was discharged but reports pt speech is still slurred and her balance is off and he is concerned she may have hit her head during one of her falls earlier. Reports pt had blood work done but no CT. Also reports pt currently on IM injections daily for UTI. Previous diagnosis today was r/t to percocet and xanax abuse but states pt hasn't taken her percocet today and has only had 1/2 a xanax this morning. Transition of care: patient was not received from another setting of care. Onset of symptoms was April 20, 2018. Risk Assessment: Do you want to hurt yourself or someone else? Patient reports no desire to harm self or others. Initial Sepsis Screen: Does the patient meet any 2 criteria? No. Patient's initial sepsis screen is negative. Does the patient have a suspected source of infection? No. Patient's initial sepsis screen is negative. Care prior to arrival: None. 19:45 Method Of Arrival: Wheelchair aa1 19:45 Acuity: TYLOR 3 aa1 Triage Assessment: 19:52 General: Appears in no apparent distress. comfortable, Behavior is calm, cooperative. aa1 Historical: - Allergies: 19:52 Prochlorperazine Maleate; aa1 - PMHx: 19:52 Anxiety; "shattered shoulder"; aa1 - PSHx: 19:52 Joint replacement; aa1 - Immunization history:: Adult Immunizations up to date. - Social history:: Smoking status: Patient/guardian denies using tobacco. - Ebola Screening: : No symptoms or risks identified at this time. Screenin:11 Abuse screen: Denies threats or abuse. Nutritional screening: No deficits noted. tl3 Tuberculosis screening: No symptoms or risk factors identified. Fall Risk Fall in past 12 months (25 points). Assessment: 20:11 General: Appears in no apparent distress. unkempt, Behavior is calm, flat. Pain: tl3 Complains of pain in left arm. Neuro: Level of Consciousness is awake, obeys commands, listless, Oriented to Speech with expressive aphasia noted, Facial symmetry appears normal. Cardiovascular: Heart tones S1 S2 present Patient's skin is warm and dry. Respiratory: Airway is patent Respiratory effort is even, unlabored, Respiratory pattern is regular, symmetrical. GI: No signs and/or symptoms were reported involving the gastrointestinal system. : No signs and/or symptoms were reported regarding the genitourinary system. EENT: No signs and/or symptoms were reported regarding the EENT system. Derm: No signs and/or symptoms reported regarding the dermatologic system. Musculoskeletal: Range of motion: intact in left shoulder. Injury Description: pt was seen here earlier for a fall, thinks pts mental status is not her norm. 21:04 Reassessment: No changes from previously documented assessment. Patient and/or family tl3 updated on plan of care and expected duration. Pain level reassessed. Patient is alert, oriented x 3, equal unlabored respirations, skin warm/dry/pink. pt needed a lot of assistance to go to the restroom, words are very forced and sometimes hard to understand. left to go home and left his phone # [phone]. 21:47 Reassessment: pt continues to attempt to get out of bed, has called her tl3 numerous times to get him to come get her, I have explained that she was not well enough to go home, her speech was hard to understand, she can not walk unassisted, but she wants to go home to get her medicine, sitter requested, pt is trying to bite of her arm band and requiring one on one care to keep her in the bed and safe. 23:00 Reassessment: No changes from previously documented assessment. pt remains a challenge tl3 to keep in her bed, she calls out frequently, but is unintelligible with most of her words. 04/23 00:53 Reassessment: No changes from previously documented assessment. pt refused IV, states tl3 she does "wants to go home", speech remains garbled, instructed her that I would have to get an order for restraints if she did not allow the IV and antibiotics, or if she continued to remove her medical monitoring equipment. Vital Signs: 04/22 19:52 BP 137 / 80; Pulse 84; Resp 16; Temp 98.5; Pulse Ox 96% on R/A; Weight 68.04 kg; Height aa1 5 ft. 4 in. (162.56 cm); 21:47 BP 129 / 112; Pulse 72; Resp 18; tl3 21:47 BP 129 / 112; Pulse 77; Resp 16; Pulse Ox 95% on R/A; tl3 21:57 BP 134 / 63; Pulse 79; Resp 20; Temp 97.7(O); Pulse Ox 100% on R/A; fc 23:05 BP 109 / 87; Pulse 72; Resp 16; Pulse Ox 98% ; tl3 04/23 00:53 BP 137 / 72; Pulse 73; Resp 18; Pulse Ox 94% on R/A; tl3 04/22 19:52 Body Mass Index 25.75 (68.04 kg, 162.56 cm) aa1 ED Course: 04/22 19:26 Patient arrived in ED. ds1 19:26 Nadja Alford MD is Private Physician. ds1 19:51 Triage completed. aa1 19:52 Arm band placed on left wrist. Patient placed in an exam room, on a stretcher. aa1 19:55 Jake Aguilar MD is Attending Physician. ps1 20:10 Adelina Hernandez, ALCIDES is Primary Nurse. tl3 20:11 Patient has correct armband on for positive identification. Bed in low position. Call tl3 light in reach. Side rails up X2. Adult w/ patient. Pulse ox on. NIBP on. 20:11 No provider procedures requiring assistance completed. tl3 20:50 CT Head C Spine In Process Unspecified. EDMS 20:50 CT completed. Patient moved to CT via stretcher. Patient moved back from CT. cw1 21:47 Patient did not have IV access during this emergency room visit. tl3 23:00 Straight cath inserted, using sterile technique, 8 fr cath. tl3 23:09 Warm blanket given. Pillow given. PO fluids given. tl3 04/23 00:05 Inserted saline lock: 22 gauge in left wrist, using aseptic technique. tl3 00:54 Bozena Piña MD is Hospitalizing Provider. ps1 Administered Medications: 00:33 Drug: LevaQUIN 750 mg Volume: 150 ml; Route: IVPB; Infused Over: 90 mins; Site: left tl3 wrist; 01:16 Follow up: IV Status: Infusion continued upon admission tl3 01:31 Follow up: Response: No adverse reaction; IV Status: Infusion continued upon admission rk2 00:36 Drug: vancoMYCIN 1 grams Route: IVPB; Infused Over: 2 hrs; Site: left wrist; tl3 01:16 Follow up: IV Status: Infusion continued upon admission tl3 01:32 Follow up: Response: No adverse reaction; IV Status: Infusion continued upon admission rk2 Outcome: 00:56 Decision to Hospitalize by Provider. ps1 01:14 Admitted to Med/surg accompanied by tech, via stretcher, with chart, Report called to dee Velasco RN 01:15 Condition: unchanged tl3 01:33 Patient left the ED. rk2 Signatures: Dispatcher [employer] EDMS Kandace Fisher RN RN aa1 Rema Odonnell RN RN Jenny Cornell ds1 Monika Mckeon cw1 Jake Aguilar MD MD ps1 Lillie Orellana RN RN rk2 Adelina Hernandez RN RN tl3 Corrections: (The following items were deleted from the chart) 01:15 01:04 Condition: unchanged tl3 tl3 01:15 01:04 Admitted to Med/surg accompanied by tech, via stretcher, with chart, tl3 tl3
--- NOTE | 2018-04-23 00:56 | EDPHYS ---
Physician Documentation [facility] Name: Tina Padron Age: 72 yrs Sex: Female : 1945 Arrival Date: 04/22/2018 Time: 19:26 Bed 23 Private MD: Nadja Alford K ED Physician Jake Aguilar HPI: 04/22 20:30 This 72 yrs old Female presents to ER via Wheelchair with complaints of ps1 Altered Mental Status. 20:30 pt reportedly has percocet and xanax for previous fractured shoulder. Reportedly has ps1 been self medicating per and there is a medication discrepancy. Was seen and evalauted for altered mental status earlier today and was given dx of medication abuse. She reportedly has a UTI that was being treated with IM medications qd on an outpatient basis. Pt brought back as she has not cleared her confusion and concerned for intracranial etiology vs sepsis as she had 2 falls today. . Historical: - Allergies: 19:52 Prochlorperazine Maleate; aa1 - PMHx: 19:52 Anxiety; "shattered shoulder"; aa1 - PSHx: 19:52 Joint replacement; aa1 - Immunization history:: Adult Immunizations up to date. - Social history:: Smoking status: Patient/guardian denies using tobacco. - Ebola Screening: : No symptoms or risks identified at this time. ROS: 20:30 Unable to obtain ROS due to altered mental status. ps1 Exam: 20:30 Constitutional: This is a well developed, well nourished patient who is awake, alert, ps1 and in no acute distress. Head/Face: Normocephalic, atraumatic. Chest/axilla: Normal chest wall appearance and motion. Nontender with no deformity. No lesions are appreciated. Cardiovascular: Regular rate and rhythm. No gallops, murmurs, or rubs. Normal PMI, no JVD. No pulse deficits. Respiratory: Lungs have equal breath sounds bilaterally, clear to auscultation and percussion. No rales, rhonchi or wheezes noted. No increased work of breathing, no retractions or nasal flaring. 20:30 Eyes: Exam is negative for injury or deformity, ptosis, Pupils: pinpoint, bilaterally. 20:30 Neuro: Orientation: Not oriented to time, situation, Mentation: slow to respond, confused, Memory: unable to test, the patient refuses to cooperate. 20:30 Special observations: patient is repetitively requesting percocet. . Vital Signs: 19:52 BP 137 / 80; Pulse 84; Resp 16; Temp 98.5; Pulse Ox 96% on R/A; Weight 68.04 kg; Height aa1 5 ft. 4 in. (162.56 cm); 21:47 BP 129 / 112; Pulse 72; Resp 18; tl3 21:47 BP 129 / 112; Pulse 77; Resp 16; Pulse Ox 95% on R/A; tl3 21:57 BP 134 / 63; Pulse 79; Resp 20; Temp 97.7(O); Pulse Ox 100% on R/A; fc 23:05 BP 109 / 87; Pulse 72; Resp 16; Pulse Ox 98% ; tl3 04/23 00:53 BP 137 / 72; Pulse 73; Resp 18; Pulse Ox 94% on R/A; tl3 04/22 19:52 Body Mass Index 25.75 (68.04 kg, 162.56 cm) aa1 MDM: 04/22 21:38 Patient medically screened. ps1 23:43 Data reviewed: vital signs, nurses notes, lab test result(s), radiologic studies. ED ps1 course: attests that patient is not at baseline and does not believe that she can make informed consent. He agrees with plan of care for medical workup, imaging, IV, and antibiotics.. 04/22 20:27 Order name: Urine Drug Screen; Complete Time: 23:50 ps1 04/22 23:09 Order name: Urinalysis; Complete Time: 00:45 EDMS 04/22 23:19 Order name: Urine Microscopic Only; Complete Time: 00:45 EDMS 04/22 23:51 Order name: Urine Culture ps1 04/23 00:55 Order name: CBC with Automated Diff EDMS 04/23 00:55 Order name: CBC with Automated Diff EDMS 04/22 20:01 Order name: CT Head C Spine; Complete Time: 21:38 ps1 04/23 00:55 Order name: CONS Pharmacy Consult EDMS 04/23 00:55 Order name: Comprehensive Metabolic Panel EDMS 04/23 00:55 Order name: Comprehensive Metabolic Panel EDOH 04/22 20:27 Order name: Urine Dipstick-Ancillary (obtain specimen); Complete Time: 00:25 ps1 04/23 00:55 Order name: Heart Healthy EDOH Administered Medications: 04/23 00:33 Drug: LevaQUIN 750 mg Volume: 150 ml; Route: IVPB; Infused Over: 90 mins; Site: left tl3 wrist; 01:16 Follow up: IV Status: Infusion continued upon admission tl3 01:31 Follow up: Response: No adverse reaction; IV Status: Infusion continued upon admission rk2 00:36 Drug: vancoMYCIN 1 grams Route: IVPB; Infused Over: 2 hrs; Site: left wrist; tl3 01:16 Follow up: IV Status: Infusion continued upon admission tl3 01:32 Follow up: Response: No adverse reaction; IV Status: Infusion continued upon admission rk2 Disposition: 04/23/18 00:56 Hospitalization ordered by Bozena Piña for Observation. Preliminary diagnosis are Altered Mental Status, Benzodiazipine Toxicity, Complicated UTI. - Bed requested for Telemetry/MedSurg (observation). - Status is Observation. rk2 - Condition is Fair. - Problem is an ongoing problem. - Symptoms have worsened. UTI on Admission? Yes Signatures: Dispatcher [employer] [facility] Kandace Fisher RN RN aa1 Chloé Liu RN RN tl2 Jake Aguilar MD MD ps1 Lillie Orellana RN RN rk2 Adelina Hernandez RN RN tl3 Corrections: (The following items were deleted from the chart) 04/22 20:27 20:01 Head Brain Wo Cont+CT.RAD.BRZ ordered. [facility] 04/23 01:02 00:56 Hospitalization Ordered by Bozena Piña MD for Observation. Preliminary tl2 diagnosis is Altered Mental Status; Benzodiazipine Toxicity; Complicated UTI. Bed requested for Telemetry/MedSurg (observation). Status is Observation. Condition is Fair. Problem is an ongoing problem. Symptoms have worsened. UTI on Admission? Yes. ps1 01:33 01:02 04/23/2018 00:56 Hospitalization Ordered by Bozena Piña MD for Observation. rk2 Preliminary diagnosis is Altered Mental Status; Benzodiazipine Toxicity; Complicated UTI. Bed requested for Telemetry/MedSurg (observation). Status is Observation. Condition is Fair. Problem is an ongoing problem. Symptoms have worsened. UTI on Admission? Yes. tl2
[2018-04-23] MEDS ORDERED: NA CHLORIDE 0.9% 1,000 ML IV SCH (01:00)
[2018-04-23] MEDS ORDERED: FENTANYL CITR 100 MCG/2 ML ONE (01:15)
[2018-04-23] MEDS ORDERED: NA CHLORIDE 0.9% 1,000 ML ONE (01:15)
[2018-04-23] MEDS ORDERED: PIPER/TAZO/NS 3.375gm 3.375 GM/100 ML BAG ONE (01:19)
[2018-04-23] MEDS ORDERED: ERTAPENEM SODIUM 1 GM VIAL ONE (02:40)
[2018-04-23] MEDS ORDERED: NA CHLORIDE 0.9% 100 ML ONE (02:55)
[2018-04-23] MEDS ORDERED: ERTAPENEM NA 1 GM in NA CHLORIDE 0.9% 100 ML IVPB SCH (03:00)
[2018-04-23] MEDS ORDERED: ERTAPENEM SODIUM 1 GM VIAL IVPB SCH (03:00)
--- NOTE | 2018-04-23 09:00 | P.HP ---
Certification for Inpatient Patient admitted to: Observation With expected LOS: <2 Midnights Patient will require the following post-hospital care: None Practitioner: I am a practitioner with admitting privileges, knowledge of patient current condition, hospital course, and medical plan of care. Services: Services provided to patient in accordance with Admission requirements found in Title 42 Section 412.3 of the Code of Federal Regulations Patient History Date of Service: 04/23/18 Reason for admission: Altered mental status History of Present Illness: Patient is a 72-year-old female who has been admitted to the hospital on numerous occasions. She presents to the emergency room with altered mentation. She was here in the hospital twice today. One was a emergency room visit for pain in the other was a same day surgery visit for her antibiotic therapy. When patient went home she started feeling worse. Her states she became more obtunded. He is not sure if she took more of her medications as she takes Percocet and Ativan for anxiety. Her urine drug screen did show benzodiazepines in her system but no opiates. She is still very lethargic at this time. Will reassess her in the morning. As long as she is more awake and alert and tolerating diet she should be stable for discharge home. Will readdress when we get to further evaluate her neurologically when she is more awake. Allergies prochlorperazine [From Compazine] Allergy (Intermediate, Verified 12/08/17 12:55 ) PYSCHOSIS Prochlorperazine Maleate Allergy (Uncoded 04/22/18 15:25) Unknown Home Medications: ALPRAZolam [Xanax*] 1 mg PO BEDTIME 09/07/16 Aspirin 81 mg PO DAILY 09/07/16 Levothyroxine [Synthroid*] 0.1 mg PO 0600 09/07/16 Metoprolol/Hydrochlorothiazide [Metoprolol-Hctz 50-25 mg Tab] 1 tab PO BID 09/07 Multivitamin [Multiple Vitamins] 1 tab PO DAILY 09/07/16 Omeprazole Magnesium [Prilosec Otc] 20 mg PO BID 09/07/16 Oxycodone HCl/Acetaminophen [Endocet 5-325 Tablet] 2 tab PO BID 09/07/16 Triamcinolone 0.1% Crm [Kenalog 0.1% Cream*] 1 appl TOP BID 06/28/17 Dicyclomine HCl 1 tab PO BID 09/08/17 Meclizine HCl 1 tab PO DAILY 09/08/17 - Past Medical/Surgical History Diabetic: No -: Hypertension -: Hypothyroidism -: B-cell lymphoma -: DDD/DJD of spine -: Chronic recurrent UTI requiring long-term antibiot -: shingles ( ) -: Vertigo -: Anxiety -: Hysterectomy -: Cholecystectomy -: Gastric torsion repair -: Hip surgery -: Knee surgery -: Port-A-Cath placement and removal -: left breast removal -: TONSILLECTOMY Psychosocial/ Personal History: The patient is originally from [place]. She moved to the area in July. She is . She has 3 children. - Family History Mother Medical History: Heart disease, Hypertension, Diabetes, Kidney disease Father Medical History: Heart disease, Diabetes, Other (see notes) Notes: Alzheimers - Social History Smoking Status: Current some day smoker Alcohol use: No CD- Drugs: No Caffeine use: No Review of Systems 10-point ROS is otherwise unremarkable Physical Examination - Vital Signs Temperature: 98.7 F Blood Pressure: 154/75 Pulse: 80 Respirations: 18 Pulse Ox (%): 100 - Physical Exam General: Alert, In no apparent distress, Oriented x3 HEENT: Atraumatic, PERRLA, Mucous membr. moist/pink, EOMI, Sclerae nonicteric Neck: Supple, 2+ carotid pulse no bruit, No LAD, Without JVD or thyroid abnormality Respiratory: Clear to auscultation bilaterally, Normal air movement Cardiovascular: Regular rate/rhythm, Normal S1 S2, No murmurs Gastrointestinal: Normal bowel sounds, Soft and benign, Non-distended, No tenderness Musculoskeletal: No clubbing, No swelling, No tenderness Integumentary: No rashes Neurological: Normal gait, Normal speech, Normal strength at 5/5 x4 extr, Normal tone, Sensation intact, Cranial nerves 3-12 intact, Normal affect Lymphatics: No axilla or inguinal lymphadenopathy Assessment & Plan - Problems (Diagnosis) (1) Altered mental status, unspecified Current Visit: Yes Status: Acute (2) Unintentional poisoning by benzodiazepine Current Visit: Yes Status: Acute (3) Multiple drug resistant organism (MDRO) culture positive Current Visit: Yes Status: Acute (4) Anxiety disorder Onset Date: 09/09/17 Current Visit: No Status: Chronic Qualifiers: (5) Chronic pain disorder Current Visit: No Status: Chronic (6) Hypertension Onset Date: 06/29/17 Current Visit: No Status: Chronic Qualifiers: (7) Hypothyroidism Onset Date: 06/29/17 Current Visit: No Status: Chronic Qualifiers: - Plan Plan: 1. IV hydration 2. Neuro checks q.4 hours 3. Hold all sedative medications 4. resume InVanz which she is taking outpatient for few more days. 5. GI and DVT prophylaxis if patient is more awake than she possibly can be discharged home in the next 24 hours. - Advance Directives Does patient have a Living Will: No Does patient have a Durable POA for Healthcare: No - Code Status/Comfort Care Code Status Assessed: Yes Code Status: Full Code Critical Care: No Time Spent Managing PTS Care (In Minutes): 50
== END 2018-04-23 10:19 | disposition left against medical advice (07) ==
LOC: ER 19:25 → ERHOLD 04-23 00:53 → 2ND 04-23 01:09
PROVIDERS: ADMIT Hospitalist; ATTEND Hospitalist
DX: T42.4X1A Poisoning by benzodiazepines, accidental (unintentional), initial encounter (principal); R41.82 Altered mental status, unspecified; Y92.009 Unspecified place in unspecified non-institutional (private) residence as the place of occurrence of the external cause; F41.9 Anxiety disorder, unspecified; G89.29 Other chronic pain; I10 Essential (primary) hypertension; E03.9 Hypothyroidism, unspecified; Z79.82 Long term (current) use of aspirin
CPT/HCPCS: 36415; 51702; 70450; 72125; 80048; 80307; 81003; 81015; 85025; 87086; 87088; 96360; 96361; 96365; 96368; 99284; 99285; G0378; J1335; J2543; J3010; J3370; J7030

== ENCOUNTER 2018-05-07 13:23 | Emergency (ER) | payer OTHER, BC ==
[2018-05-07 14:06] LABS: Urine Blood 2+ (NEG); Urine Glucose 1+ (NEG); Urine Protein 3+ (NEG)
[2018-05-07 14:22] LABS: Urine Bacteria 20-50 /HPF (<20); Urine Culture Reflex Order REFLEXED; Urine Yeast PRESENT (NONE SEEN)
[2018-05-07 14:43] LABS: Absolute Lymphocytes (CBC) 0.7 K/uL (0.7-4.9); Absolute Monocytes 0.8 K/uL (0.1-1.3); Absolute Neutrophil 4.4 K/uL (1.8-8.0); Basophils % 0.8 % (0-1.3); Eosinophils % 1.8 % (0-4.4); Hematocrit 36.1 % (36.0-45.0); MCH 30.3 pg (27.0-35.0); MCV 89.4 fL (80-100); MPV 8.6 fL (7.6-11.3); Monocytes % 13.9 % (3.3-12.3); RBC Red Blood Cell Count 4.03 M/uL (3.86-4.86)
[2018-05-07 15:01] LABS: Albumin 3.5 g/dL (3.4-5.0); Bilirubin Direct 0.1 mg/dL (0-0.2); Bilirubin Total 0.5 mg/dL (0.2-1.0); Potassium 3.2 mmol/L (3.5-5.1); Protein, Total 6.8 g/dL (6.4-8.2)
[2018-05-07] MEDS ORDERED: NA CHLORIDE 0.9% 1,000 ML ONE (15:09)
--- NOTE | 2018-05-07 15:25 | RAD REPORT ---
EXAM DESCRIPTION: CTAbdomen Pelvis W Contrast - 05/07/2018 3:17 pm CLINICAL HISTORY: Abdominal pain. Lower abdominal pain, IV ONLY COMPARISON: Abdomen Pelvis W Contrast dated 10/26/2017; Abdomen Pelvis W Contrast dated 08/13/20 17; Abdomen Pelvis W Contrast dated 07/28/2017 TECHNIQUE: Biphasic CT imaging of the abdomen and pelvis was performed with 100 ml non-ionic IV cont rast. All CT scans are performed using dose optimization technique as appropriate and may include automated exposure control or mA/KV adjustment according to patient size. FINDINGS: The lung bases are clear.Postsurgical changes affect the stomach. The liver demonstrates no focal mass or biliary dilatation. Cholecystectomy clips are seen. The splee n, adrenal glands are normal. Pancreatic atrophy seen. Multiple cysts are present involving both kidn eys, benign in appearance. The largest measures 4.6 cm on the right. No bowel obstruction, free air, free fluid or abscess. Scattered colonic diverticulosis. The appendix is normal. No evidence of significant lymphadenopathy. Moderate lumbosacral degenerative changes. Right hip arthroplasty noted. IMPRESSION: No acute intra-abdominal or pelvic finding.
[2018-05-07] MEDS ORDERED: CEFTRIAXONE/SWI 1gm 1 GM/10 ML SYR ONE (15:50)
--- NOTE | 2018-05-07 16:01 | EDPHYS ---
Physician Documentation [facility] Name: Tina Padron Age: 72 yrs Sex: Female : 1945 Arrival Date: 05/07/2018 Time: 13:26 Bed 19 Private MD: Nadja Alford K ED Physician Raymond Nolan HPI: 05/07 14:43 This 72 yrs old Female presents to ER via Ambulatory with complaints of jmm Urinary Problem. 14:43 The patient presents with urinary symptoms, dysuria, frequency, hematuria. Onset: The jmm symptoms/episode began/occurred at an unknown time. Modifying factors: The symptoms are alleviated by nothing, the symptoms are aggravated by nothing. Associated signs and symptoms: Pertinent positives: cramping, dysuria, hematuria, Pertinent negatives: fever, vomiting. This is a 72 year old female with a history of chronic urinary tract infections thar presents to the ED with lower abdominal pain, increased frequncy. The patient is currently taking macrobid with no relief. The patient states she has visited multiple providers over the past year due to similar issues. The patient states the only relief has occurred with an IM injection of an unknown abx which may be a penicillin. Patient denies fever but admits to generalized fatigue. Historical: - Allergies: 13:36 Compazine; aj1 - Home Meds: 13:36 Macrobid Oral [Active]; "blood pressure medication" [Active]; "cholesterol medication" aj1 [Active]; Percocet 7.5-325 mg Oral tab 1 tab three times a day [Active]; "thyroid medication" [Active]; - PMHx: 13:36 "shattered shoulder"; Anxiety; Hypothyroidism; chronic UTI; Hyperlipidemia; aj1 Hypertension; - Immunization history:: Flu vaccine is up to date. - Social history:: Smoking status: Patient/guardian denies using tobacco. - Ebola Screening: : Patient denies travel to an Ebola-affected area in the 21 days before illness onset. ROS: 14:43 Cardiovascular: Negative for chest pain, palpitations, and edema, Respiratory: Negative jm for shortness of breath, cough, wheezing, and pleuritic chest pain. 14:43 Skin: Negative for injury, rash, and discoloration, Neuro: Negative for headache, weakness, numbness, tingling, and seizure. 14:43 Constitutional: Positive for fatigue, malaise, Negative for fever. 14:43 Abdomen/GI: Positive for abdominal pain. 14:43 : Positive for urinary symptoms. 14:43 All other systems are negative. Exam: 14:43 Head/Face: atraumatic. Cardiovascular: Regular rate and rhythm. No edema appreciated [facility] Respiratory: Normal respirations, no respiratory distress appreciated 14:43 Constitutional: The patient appears in no acute distress, alert, awake. 14:43 Abdomen/GI: Inspection: abdomen appears normal, Palpation: soft, in the suprapubic area. 14:43 Back: ROM is normal. 14:43 Skin: Appearance: Color: normal in color. 14:43 Neuro: Orientation: is normal, Mentation: is normal, Memory: is normal. 14:43 Psych: Behavior/mood is pleasant, cooperative, anxious. Vital Signs: 13:36 BP 114 / 85; Pulse 65; Resp 18; Temp 98.4; Pulse Ox 99% on R/A; Weight 70.31 kg (R); aj1 Height 5 ft. 5 in. (165.10 cm) (R); 14:49 BP 102 / 53; Pulse 59; Resp 18; Pulse Ox 99% on R/A; em 15:24 BP 140 / 74; Pulse 71; Resp 16; Pulse Ox 99% on R/A; em 16:24 BP 121 / 58; Pulse 57; Resp 16; Pulse Ox 99% on R/A; em 16:51 BP 134 / 62; Pulse 57; Resp 16; Pulse Ox 98% on R/A; em 13:36 Body Mass Index 25.79 (70.31 kg, 165.10 cm) [facility] MDM: 14:06 Patient medically screened. [facility] 14:52 Data reviewed: vital signs, nurses notes. [facility] 15:57 Data reviewed: lab test result(s), radiologic studies, CT scan. Counseling: I had a [facility] detailed discussion with the patient and/or guardian regarding: the historical points, exam findings, and any diagnostic results supporting the discharge/admit diagnosis, lab results, radiology results, the need for outpatient follow up, to return to the emergency department if symptoms worsen or persist or if there are any questions or concerns that arise at home. ED course: Patient is alert and non toxic in appearance in the ED. CT imaging unremarable. Patient is encouraged to increase fluid intake. Advised to return to the ED if she develops increased pain, vomiting, fever, or any other concerning symptoms. . 05/07 14:04 Order name: Urine Dipstick--Ancillary (enter results); Complete Time: 14:07 ag 05/07 14:07 Order name: Amylase, Serum; Complete Time: 15:36 [facility] 05/07 14:07 Order name: Basic Metabolic Panel; Complete Time: 15:36 [facility] 05/07 14:07 Order name: CBC with Diff; Complete Time: 14:58 [facility] 05/07 14:07 Order name: Creatinine for Radiology; Complete Time: 14:58 [facility] 05/07 14:07 Order name: Hepatic Function; Complete Time: 15:36 [facility] 05/07 14:07 Order name: Lipase; Complete Time: 15:36 [facility] 05/07 14:07 Order name: Urine Microscopic Only; Complete Time: 14:34 [facility] 05/07 14:07 Order name: IV Saline Lock; Complete Time: 14:35 [facility] 05/07 14:07 Order name: Labs collected and sent; Complete Time: 14:35 [facility] 05/07 14:07 Order name: CT Abd/Pelvis - W/Contrast; Complete Time: 15:36 [facility] 05/07 14:23 Order name: Urine Culture [facility] 05/07 14:07 Order name: Urine Dipstick-Ancillary (obtain specimen); Complete Time: 14:09 [facility] Administered Medications: 15:26 Drug: NS 0.9% 1000 ml Route: IV; Rate: 1 bolus; Site: right antecubital; em 17:01 Follow up: IV Status: Completed infusion; IV Intake: 1000ml em 15:54 Drug: Rocephin - (cefTRIAXone) 1 grams Route: IVPB; Infused Over: 30 mins; Site: right iw antecubital; 16:23 Follow up: Response: No adverse reaction; IV Status: Completed infusion; IV Intake: 10mlem Disposition: 05/08 10:31 Co-signature as Attending Physician, Raymond Nolan MD. Disposition: 05/07/18 16:01 Discharged to Home. Impression: Urinary tract infection, site not specified. - Condition is Stable. - Discharge Instructions: Urinary Tract Infection. - Prescriptions for cefpodoxime 200 mg Oral Tablet - take 1 tablet by ORAL route every 12 hours with food; 20 tablet. - Medication Reconciliation Form, Thank You Letter, Antibiotic Education, Prescription Opioid Use form. - Follow up: Private Physician; When: As needed; Reason: Continuance of care, [place] [address] Dr. Reveles. Signatures: Dispatcher [employer] Chelle Mancera, ALCIDES RN aj1 Lucien Madsen PA PA Stevenson Zuñiga, DEVELOPER PROGRAMMER ANALYST DEVELOPER PROGRAMMER ANALYST em Dinora Baca RN RN iw Raymond Nolan MD MD gs Corrections: (The following items were deleted from the chart) 05/07 17:04 16:01 05/07/2018 16:01 Discharged to Home. Impression: Urinary tract infection, site em not specified. Condition is Stable. Forms are Medication Reconciliation Form, Thank You Letter, Antibiotic Education, Prescription Opioid Use. Follow up: Private Physician; When: As needed; Reason: Continuance of care, [place] [address] Dr. Reveles. [facility]
--- NOTE | 2018-05-07 16:01 | ER ---
Nurse's Notes [facility] Name: Tina Padron Age: 72 yrs Sex: Female : 1945 Arrival Date: 05/07/2018 Time: 13:26 Bed 19 Private MD: Nadja Alford K Diagnosis: Urinary tract infection, site not specified Presentation: 05/07 13:29 Presenting complaint: Patient states: Reports chronic UTIs, states that she is aj1 currently taking Macrobid for her UTI, but she started having urinary frequency and dysuria for the last 3 days. Transition of care: patient was not received from another setting of care. Onset of symptoms was May 04, 2018. Risk Assessment: Do you want to hurt yourself or someone else? Patient reports no desire to harm self or others. Initial Sepsis Screen: Does the patient meet any 2 criteria? No. Patient's initial sepsis screen is negative. Does the patient have a suspected source of infection? No. Patient's initial sepsis screen is negative. Care prior to arrival: None. 13:29 Method Of Arrival: Ambulatory [facility] 13:29 Acuity: TYLOR 4 aj1 Triage Assessment: 13:36 General: Appears in no apparent distress. comfortable, Behavior is calm, cooperative, aj1 appropriate for age. Pain: Complains of pain in pelvis Pain currently is 7 out of 10 on a pain scale. Neuro: Level of Consciousness is awake, alert, obeys commands, Speech is normal, Facial symmetry appears normal. Cardiovascular: Patient's skin is warm and dry. Respiratory: Airway is patent Respiratory effort is even, unlabored, Respiratory pattern is regular, symmetrical. : Reports burning with urination, urgency, urinary frequency. Derm: Skin is pink, warm \\T\\ dry. normal. Historical: - Allergies: 13:36 Compazine; aj1 - Home Meds: 13:36 Macrobid Oral [Active]; "blood pressure medication" [Active]; "cholesterol medication" aj1 [Active]; Percocet 7.5-325 mg Oral tab 1 tab three times a day [Active]; "thyroid medication" [Active]; - PMHx: 13:36 "shattered shoulder"; Anxiety; Hypothyroidism; chronic UTI; Hyperlipidemia; aj1 Hypertension; - Immunization history:: Flu vaccine is up to date. - Social history:: Smoking status: Patient/guardian denies using tobacco. - Ebola Screening: : Patient denies travel to an Ebola-affected area in the 21 days before illness onset. Screenin:02 Abuse screen: Denies threats or abuse. Nutritional screening: No deficits noted. em Tuberculosis screening: No symptoms or risk factors identified. Fall Risk None identified. Assessment: 14:03 General: Appears in no apparent distress. comfortable, Behavior is calm, cooperative. em Pain: Complains of pain in pelvis Pain does not radiate. Pain Quality of pain is described as burning. Neuro: Level of Consciousness is awake, alert, obeys commands, Oriented to person, place, time, situation. Cardiovascular: Capillary refill < 3 seconds Patient's skin is warm and dry. Respiratory: Airway is patent Respiratory effort is even, unlabored, Respiratory pattern is regular, symmetrical. GI: Abdomen is non-distended, Bowel sounds present X 4 quads. Reports nausea, Patient currently denies vomiting. : Urine is red orange in color reports taking Azo for several days Reports burning with urination, pain. Derm: Skin is intact, Skin is pink, warm \\T\\ dry. Musculoskeletal: Range of motion: intact in all extremities. 14:29 Reassessment: Patient appears in no apparent distress at this time. I agree with above iw assessment by Stevenson Garcia LVN. 15:27 Reassessment: Patient appears in no apparent distress at this time. Patient and/or em family updated on plan of care and expected duration. Pain level reassessed. returned from CT, placed on monitor and started NS liter bolus, no complaints at this time. 16:20 Reassessment: Patient appears in no apparent distress at this time. Patient and/or em family updated on plan of care and expected duration. Pain level reassessed. Patient is alert, oriented x 3, equal unlabored respirations, skin warm/dry/pink. pt up for discharge, pending completion of NS bolus. 17:01 Reassessment: Patient appears in no apparent distress at this time. Patient and/or em family updated on plan of care and expected duration. Pain level reassessed. Patient is alert, oriented x 3, equal unlabored respirations, skin warm/dry/pink. Vital Signs: 13:36 BP 114 / 85; Pulse 65; Resp 18; Temp 98.4; Pulse Ox 99% on R/A; Weight 70.31 kg (R); aj1 Height 5 ft. 5 in. (165.10 cm) (R); 14:49 BP 102 / 53; Pulse 59; Resp 18; Pulse Ox 99% on R/A; em 15:24 BP 140 / 74; Pulse 71; Resp 16; Pulse Ox 99% on R/A; em 16:24 BP 121 / 58; Pulse 57; Resp 16; Pulse Ox 99% on R/A; em 16:51 BP 134 / 62; Pulse 57; Resp 16; Pulse Ox 98% on R/A; em 13:36 Body Mass Index 25.79 (70.31 kg, 165.10 cm) aj1 ED Course: 13:26 Patient arrived in ED. mr 13:26 Nadja Alford MD is Private Physician. mr 13:33 Triage completed. aj1 13:36 Arm band placed on Patient placed in an exam room. [facility] 13:40 Lucien Madsen PA is PHCP. [facility] 13:40 Raymond Nolan MD is Attending Physician. [facility] 14:00 Urine collected: clean catch specimen, jese colored. [facility] 14:01 Stevenson Garcia LVN is Primary Nurse. em 14:02 Patient has correct armband on for positive identification. Bed in low position. Call em light in reach. 14:12 Urine Microscopic Only Sent. 5 14:13 Radiology exam delayed due to lab results not completed at this time. (BUN/Creatinine). kw1 14:15 Missed attempt(s): 22 gauge in right forearm. [facility] 14:33 Initial lab(s) drawn, by me, sent to lab. Inserted saline lock: 20 gauge in right em antecubital area, using aseptic technique. Blood collected. 14:43 Urine Culture Sent. [facility] 15:16 CT Abd/Pelvis - W/Contrast In Process Unspecified. EDMS 16:20 No provider procedures requiring assistance completed. em 17:00 IV discontinued, intact, bleeding controlled, No redness/swelling at site. Pressure em dressing applied. Administered Medications: 15:26 Drug: NS 0.9% 1000 ml Route: IV; Rate: 1 bolus; Site: right antecubital; em 17:01 Follow up: IV Status: Completed infusion; IV Intake: 1000ml em 15:54 Drug: Rocephin - (cefTRIAXone) 1 grams Route: IVPB; Infused Over: 30 mins; Site: right iw antecubital; 16:23 Follow up: Response: No adverse reaction; IV Status: Completed infusion; IV Intake: 10mlem Intake: 16:23 IV: 10ml; Total: 10ml. em 17:01 IV: 1000ml; Total: 1010ml. em Outcome: 16:01 Discharge ordered by . jensen 17:00 Discharged to home ambulatory. em 17:00 Condition: good 17:00 Discharge instructions given to patient, Instructed on discharge instructions, follow up and referral plans. medication usage, Demonstrated understanding of instructions, follow-up care, medications, Prescriptions given X 1. 17:04 Patient left the ED. em Addendum: 05/14/2018 08:49 Addendum: Culture Results: Positive urine culture. Phone call Attempt #1 no answer s s Certified letter sent to listed address for patient. Signatures: Dispatcher [employer] Chelle Mancera RN RN aj1 Lucien Madsen PA PA jmm Rivera, Maria mr Jose, Stevenson, FLOATING OPERATOR FLOATING OPERATOR em Dinora Baca, Racheal Wilson RN, RN RN ss Martinez, Maria 5 Demetria Douglas kw1 Corrections: (The following items were deleted from the chart) 07 14:24 14:03 : Urine is red orange in color reports taking Azo for several days em em 14:44 14:03 GI: Abdomen is non-distended, Bowel sounds present X 4 quads. Reports vomiting, em Patient currently denies nausea, em
== END 2018-05-07 17:04 | disposition home or self-care (01) ==
LOC: ER 13:23
DX: N39.0 Urinary tract infection, site not specified (principal); I10 Essential (primary) hypertension; E03.9 Hypothyroidism, unspecified; E78.5 Hyperlipidemia, unspecified; Z88.8 Allergy status to other drugs, medicaments and biological substances
CPT/HCPCS: 36415; 74177; 80048; 80076; 82150; 83690; 85025; 87086; 87088; J0696; J7030; Q9967; 81003; 81015; 87077; 87186; 96361; 96365; 99284

== ENCOUNTER 2018-07-29 18:42 | Emergency (ER) | payer OTHER ==
--- NOTE | 2018-07-29 20:23 | EDPHYS ---
Physician Documentation [facility] Name: Tina Padron Age: 72 yrs Sex: Female : 1945 Arrival Date: 07/29/2018 Time: 18:44 Bed 6 Private MD: ED Physician Raymond Nolan HPI: 07/29 19:40 This 72 yrs old Female presents to ER via EMS with complaints of cp combativeness. 19:40 The patient presents with urinary symptoms. cp 19:40 Onset: The symptoms/episode began/occurred at an unknown time. Associated signs and cp symptoms: Pertinent negatives: fever, vomiting, chest pain, abdominal pain. Historical: - Allergies: 18:49 Compazine; hj - Home Meds: 18:49 "blood pressure medication" [Active]; "cholesterol medication" [Active]; "thyroid hj medication" [Active]; Macrobid Oral [Active]; Percocet 7.5-325 mg Oral tab 1 tab three times a day [Active]; - PMHx: 18:49 "shattered shoulder"; Anxiety; chronic uti; Hyperlipidemia; Hypertension; hj Hypothyroidism; - PSHx: 18:49 Unable to obtain; hj - Immunization history:: Adult Immunizations up to date. - Social history:: Smoking status: unknown Patient/guardian denies using alcohol. - Ebola Screening: : Patient negative for fever greater than or equal to 101.5 degrees Fahrenheit, and additional compatible Ebola Virus Disease symptoms Patient denies exposure to infectious person Patient denies travel to an Ebola-affected area in the 21 days before illness onset. ROS: 19:45 Constitutional: Negative for body aches, chills, fever, poor PO intake. cp 19:45 Cardiovascular: Negative for chest pain, edema, palpitations. cp 19:45 Respiratory: Negative for cough, shortness of breath, wheezing. 19:45 Abdomen/GI: Negative for abdominal pain, nausea, vomiting, and diarrhea, black/tarry stool, rectal bleeding. 19:45 : Positive for urinary symptoms, Negative for flank pain. 19:45 Skin: Negative for cellulitis, rash. 19:45 Neuro: Negative for altered mental status, headache, syncope, near syncope, weakness. 19:45 All other systems are negative. Exam: 19:50 Constitutional: The patient appears in no acute distress, alert, awake, cp non-diaphoretic, non-toxic, well developed, well nourished. 19:50 Head/Face: Normocephalic, atraumatic. cp 19:50 Eyes: Periorbital structures: appear normal, Conjunctiva: normal, no exudate, no injection, Lids and lashes: appear normal, bilaterally. 19:50 ENT: External ear(s): are unremarkable, Nose: is normal, Mouth: Lips: moist, Oral mucosa: moist, Posterior pharynx: is normal, airway is patent. 19:50 Neck: ROM/movement: is normal, is supple, without pain, no range of motions limitations, no nuchal rigidity. 19:50 Chest/axilla: Inspection: normal. 19:50 Respiratory: the patient does not display signs of respiratory distress, Respirations: normal, no use of accessory muscles, no retractions, no splinting, no tachypnea. 19:50 Abdomen/GI: Inspection: abdomen appears normal. 19:50 Neuro: Orientation: to person, place \\T\\ time. Mentation: lucid, able to follow commands, Motor: moves all fours. Vital Signs: 18:52 Weight 74.84 kg; Height 5 ft. 5 in. (165.10 cm); 21:05 fc 18:52 Body Mass Index 27.46 (74.84 kg, 165.10 cm) 18:52 pt verbalized "i refused V/S" 21:05 refused fc MDM: 19:05 Patient medically screened. cp 20:00 Differential diagnosis: urinary tract infection, sepsis, pyelonephritis. cp 20:22 Data reviewed: nurses notes, lab test result(s), urinalysis. cp 20:22 Refusal of service: The patient/guardian displays adequate decision making capability cp and despite a detailed discussion of alternatives, benefits, risks, and consequences refuses: Admission to the hospital for further work-up and treatment, all lab tests, vitals. ED course: Patient capable of decision making and refusing blood draw at this time. Discussed results of UA and plan to admit. Patient requesting discharge to home. 07/29 19:34 Order name: Urine Microscopic Only cp 07/29 19:52 Order name: Urine Dipstick--Ancillary (enter results) ms 07/29 19:34 Order name: Urine Dipstick-Ancillary (obtain specimen); Complete Time: 19:57 07/29 20:57 Order name: Urine Culture EDMS Administered Medications: No medications were administered Disposition: 21:15 Chart complete. 07/30 18:23 Co-signature as Attending Physician, Raymond Nolan MD. Disposition: 07/29/18 20:22 Discharged to Home. Impression: Encounter for screening, unspecified. - Condition is Stable. - Medication Reconciliation Form, Thank You Letter, Antibiotic Education, Prescription Opioid Use form. - Follow up: Private Physician; When: 1 - 2 days; Reason: Recheck today's complaints. - Problem is an ongoing problem. - Symptoms are unchanged. Signatures: Dispatcher [employer] EDIA Rema Odonnell RN RN Chandana Howard RN RN hj Page, Corey, PA PA cp Starr, Gregory, MD MD Corrections: (The following items were deleted from the chart) 07/29 21:06 20:22 07/29/2018 20:22 Discharged to Home. Impression: Encounter for screening, fc unspecified. Condition is Stable. Forms are Medication Reconciliation Form, Thank You Letter, Antibiotic Education, Prescription Opioid Use. Follow up: Private Physician; When: 1 - 2 days; Reason: Recheck today's complaints. Problem is an ongoing problem. Symptoms are unchanged. cp
--- NOTE | 2018-07-29 20:23 | ER ---
Nurse's Notes [facility] Name: Tina Padron Age: 72 yrs Sex: Female : 1945 Arrival Date: 07/29/2018 Time: 18:44 Bed 6 Private MD: Diagnosis: Encounter for screening, unspecified Presentation: 07/29 18:45 Presenting complaint: EMS states: was at the parking lot of [place] when EMS was hj called because apparently patient was combative and AMS, rumbles at times saying "Mo" spitting and making hand gestures; BGL- 141; BP- 118/70; HR- 88; O2 sat- 100%; T- 98.6;. Transition of care: patient was not received from another setting of care. Onset of symptoms was July 29, 2018. Risk Assessment: Do you want to hurt yourself or someone else? Patient reports no desire to harm self or others. Initial Sepsis Screen: Does the patient meet any 2 criteria? No. Patient's initial sepsis screen is negative. Does the patient have a suspected source of infection? No. Patient's initial sepsis screen is negative. Care prior to arrival: None. 18:45 Method Of Arrival: EMS: [facility] 18:45 Acuity: TYLOR 3 hj Triage Assessment: 18:50 General: Appears in no apparent distress. uncomfortable, Behavior is appropriate for hj age, uncooperative, states "i have the right to refuse, right". Pain: Denies pain. Historical: - Allergies: 18:49 Compazine; hj - Home Meds: 18:49 "blood pressure medication" [Active]; "cholesterol medication" [Active]; "thyroid hj medication" [Active]; Macrobid Oral [Active]; Percocet 7.5-325 mg Oral tab 1 tab three times a day [Active]; - PMHx: 18:49 "shattered shoulder"; Anxiety; chronic uti; Hyperlipidemia; Hypertension; hj Hypothyroidism; - PSHx: 18:49 Unable to obtain; hj - Immunization history:: Adult Immunizations up to date. - Social history:: Smoking status: unknown Patient/guardian denies using alcohol. - Ebola Screening: : Patient negative for fever greater than or equal to 101.5 degrees Fahrenheit, and additional compatible Ebola Virus Disease symptoms Patient denies exposure to infectious person Patient denies travel to an Ebola-affected area in the 21 days before illness onset. Screenin:50 Abuse screen: Denies threats or abuse. Denies injuries from another. Nutritional hj screening: No deficits noted. Tuberculosis screening: No symptoms or risk factors identified. Fall Risk None identified. Assessment: 18:54 General: Appears in no apparent distress. uncomfortable, Behavior is appropriate for hj age, uncooperative. Pain: Denies pain. Neuro: Level of Consciousness is awake, alert, obeys commands, Oriented to person, place, time, situation, Appropriate for age. Cardiovascular: Capillary refill < 3 seconds Patient's skin is warm and dry. Respiratory: Airway is patent Respiratory effort is even, unlabored, Respiratory pattern is regular, symmetrical. GI: No signs and/or symptoms were reported involving the gastrointestinal system. : No signs and/or symptoms were reported regarding the genitourinary system. EENT: No signs and/or symptoms were reported regarding the EENT system. Derm: No signs and/or symptoms reported regarding the dermatologic system. Musculoskeletal: No signs and/or symptoms reported regarding the musculoskeletal system. 18:54 Reassessment: "i have the right to refused anything, right?', ill wait for my hj to come;. 19:10 Reassessment: Went in room with Megan JONES and pt willing to talk to staff but is fc unwilling to have exam or vitals taken. States that she will have them done and will go to the bathroom when her gets here. 19:41 Reassessment: Pt's has arrived and pt gave urine sample. Continues to refuse to fc be examined and refuses any vital signs. 20:28 Reassessment: Pt continues to refuse treatment. Vital Signs: 18:52 Weight 74.84 kg; Height 5 ft. 5 in. (165.10 cm); hj 21:05 fc 18:52 Body Mass Index 27.46 (74.84 kg, 165.10 cm) hj 18:52 pt verbalized "i refused V/S" hj 21:05 refused fc ED Course: 18:44 Patient arrived in ED. hj 18:48 Triage completed. hj 18:51 Arm band placed on refused armband placement;. hj 18:51 Patient has correct armband on for positive identification. Bed in low position. Call light in reach. Side rails up X2. 19:05 Mateo Guzman PA is PHCP. cp 19:05 Raymond Nolan MD is Attending Physician. cp 19:11 Report given to ALCIDES Barrett. 21:05 No provider procedures requiring assistance completed. Patient did not have IV access fc during this emergency room visit. Administered Medications: No medications were administered Outcome: 20:22 Discharge ordered by MD. cp 21:04 Discharged to home ambulatory, with significant other. fc 21:04 Condition: good 21:04 Discharge instructions given to patient, family, Instructed on discharge instructions, follow up and referral plans. Demonstrated understanding of states that she is not going to follow up with any dr just because we told her too. Prescriptions given X none 21:06 Patient left the ED. fc Signatures: Rema Odonnell RN RN Chandana Baptiste RN RN Mateo Guzman PA PA cp Corrections: (The following items were deleted from the chart) 18:53 18:52 74.84 kg; Height 5 ft. 5 in.; BMI: 27.4; ptr verbalized "i refused V/S"; [facility]
[2018-07-29 20:55] LABS: Urine Bacteria 20-50 /HPF (<20); Urine Culture Reflex Order REFLEXED
[2018-07-29 21:18] LABS: Urine Blood TRACE (NEG); Urine Glucose NEGATIVE (NEG); Urine Protein NEGATIVE (NEG)
== END 2018-07-29 21:06 | disposition home or self-care (01) ==
LOC: ER 18:42
DX: Z13.9 Encounter for screening, unspecified (principal); I10 Essential (primary) hypertension; E78.5 Hyperlipidemia, unspecified; F41.9 Anxiety disorder, unspecified; E03.9 Hypothyroidism, unspecified; Z88.8 Allergy status to other drugs, medicaments and biological substances
CPT/HCPCS: 81003; 81015; 87086; 87088; 99283

== ENCOUNTER 2018-07-29 23:15 | Inpatient (IN) | payer OTHER ==
[2018-07-30] MEDS ORDERED: NA CHLORIDE 0.9% 1,000 ML ONE (00:09)
[2018-07-30] MEDS ORDERED: CEFEPIME 1 GM/100 ML BAG IV ONE (00:10)
--- NOTE | 2018-07-30 00:14 | ER ---
Nurse's Notes [facility] Name: Tina Padron Age: 72 yrs Sex: Female : 1945 Arrival Date: 07/29/2018 Time: 23:15 Bed 16 Private MD: Diagnosis: Suicidal ideations;Suicide attempt;Urinary tract infection, site not specified Presentation: 07/29 23:22 Presenting complaint: EMS states: EMS called to patient's home stated she took ea 14 oxycodone. Pt was A \\T\\ O x 1 reported this was abnormal for patient. Transition of care: patient was not received from another setting of care. Onset of symptoms was July 29, 2018. Risk Assessment: Do you want to hurt yourself or someone else? Other: reports he feels like she might have taken the pills to hurt herself. Initial Sepsis Screen: Does the patient meet any 2 criteria? No. Patient's initial sepsis screen is negative. Does the patient have a suspected source of infection? No. Patient's initial sepsis screen is negative. Care prior to arrival: Medication(s) given: Naloxone 1.5 mg , NS at bolus. 22G IV to left wrist. 23:22 Method Of Arrival: EMS: [facility] ea 23:22 Acuity: TYLOR 2 ea Triage Assessment: 23:34 General: Appears in no apparent distress. Behavior is uncooperative. General: pt ea refused lab draw states "I have a right to refuse, I don't want it". Pain: Denies pain. Neuro: Level of Consciousness is awake, alert, Oriented to person, place. Cardiovascular: Heart tones S1 S2 present Patient's skin is warm and dry. Respiratory: Airway is patent Respiratory effort is even, unlabored, Respiratory pattern is regular, symmetrical, Breath sounds are clear bilaterally. GI: Abdomen is non-distended. Derm: Skin is dry, Skin is pale, Skin temperature is warm. Historical: - Allergies: 23:34 Compazine; ea - Home Meds: 23:34 "blood pressure medication" [Active]; "cholesterol medication" [Active]; "thyroid ea medication" [Active]; Macrobid Oral [Active]; Percocet 7.5-325 mg Oral tab 1 tab three times a day [Active]; - PMHx: 23:34 Hypothyroidism; Hypertension; Hyperlipidemia; chronic uti; Anxiety; "shattered ea shoulder"; - PSHx: 23:34 Unable to obtain; ea - Immunization history:: Adult Immunizations up to date. - Social history:: Smoking status: unknown. - Ebola Screening: : No symptoms or risks identified at this time. - Family history:: not pertinent. Screenin:38 Abuse screen: Denies threats or abuse. Nutritional screening: No deficits noted. ea Tuberculosis screening: No symptoms or risk factors identified. Fall Risk IV access (20 points). Mental Status-. Assessment: 23:49 Reassessment: see triage assessment. ea 23:55 Reassessment: Pt yelling "I don't care don't touch me I don't want blood drawn!" Pt ea pulling at IV in place and removing blood pressure cuff. attempted to redirect, pt continued to refuse care. Provider notified pt refusing care. 23:57 Reassessment: Soft restraints ordered per physician, restraints placed on right and ea left wrist, CMS intact to mary upper extremities. Respirations even and unlabored. Chest expansions even and symmetrical. Sitter at bedside, pt screaming "ashley does not exist and neither does the integration manager, I am going to rip everything off again !". 07/30 00:15 Reassessment: Patient and/or family updated on plan of care and expected duration. Pain ea level reassessed. Pt resting quietly, alert and oriented x 2. Respirations even and unlabored. Pt offered something to drink, pt refused. Restraints remain in place, CMS intact. Pt states while pointing at restraints "if you take these things off I am going to pull this damn IV out of my hand" Sitter remains at bedside. 00:30 Reassessment: Patient and/or family updated on plan of care and expected duration. Pain ea level reassessed. Pt screaming, attempted to redirect, pt continues to scream, medication order obtained, med administered, pt tolerated well. Restraints remain in place, pt attempting to get to IV. CMS to mary upper extremities intact. Pt refused PO fluids , sitter remains at bedside. 00:45 Reassessment: Patient and/or family updated on plan of care and expected duration. Pain ea level reassessed. Pt alert oriented x 2. Sitter at bedside. Respirations even and unlabored. Chest expansion even and symmetrical. No s/s of pain or discomfort noted at this time. 01:00 Reassessment: Patient and/or family updated on plan of care and expected duration. Pain ea level reassessed. Pt continues to yell, pt is no longer attempting to pull on IV. Restraints removed from mary wrists, CMS intact to mary upper extremities. Pt alert and oriented x 2, respirations even and unlabored. chest expansions even and symmetrical. No s/s of pain or discomfort noted at this time. Medication administered, pt tolerated well. Pt not attempting to remove IV at this time. Tolerated PO fluids well. Sitter remains at bedside. 01:45 Reassessment: Patient and/or family updated on plan of care and expected duration. Pain ea level reassessed. Pt awake oriented x 2. Respirations even and unlabored. Chest expansions even and symmetrical. Bedside report given to Nelda MCGRATH. Pt belongings and medication bottle transferred to ICU with patient. Vital Signs: 07/29 23:37 BP 127 / 104; Pulse 80; Resp 18; Temp 97.4(O); Pulse Ox 96% on R/A; ea 07/30 00:45 BP 153 / 77; Pulse 75; Resp 17; Pulse Ox 97% on R/A; ea 01:45 BP 141 / 68; Pulse 76; Resp 18; Temp 97.8(TE); Pulse Ox 98% on R/A; ea ED Course: 07/29 23:15 Patient arrived in ED. ds1 23:20 Maintain EMS IV. Dressing intact. Site clean \\T\\ dry. Gauge \\T\\ site: 22G to left hand. ea 23:22 Analy Alfonso, ALCIDES is Primary Nurse. ea 23:28 Mateo Fox MD is Attending Physician. alec 23:32 Triage completed. ea 23:39 Patient has correct armband on for positive identification. Bed in low position. Call ea light in reach. Side rails up X2. 23:39 Arm band placed on right wrist. Patient placed in an exam room, on a stretcher, on ea center consultant, on pulse oximetry. 07/30 00:12 Bozena Piña MD is Hospitalizing Provider. alec 01:04 No provider procedures requiring assistance completed. ea 01:05 Patient admitted, IV remains in place. ea Administered Medications: 07/29 23:41 CANCELLED (Duplicate Order): Geodon 20 mg IM once [facility] 23:50 Drug: Cefepime 1 grams Route: IVPB; Rate: 200 ml/hr; Infused Over: 30 mins; Site: left ea hand; 07/30 00:30 Follow up: Response: No adverse reaction ea 00:30 Follow up: Response: No adverse reaction; IV Status: Completed infusion ea 00:25 Drug: Ativan 1 mg Route: IVP; Site: left hand; ea 01:14 Follow up: Response: No adverse reaction; Marked relief of symptoms ea 00:56 Drug: Geodon 10 mg Route: IM; Site: right deltoid; ea 01:14 Follow up: Response: No adverse reaction; Marked relief of symptoms ea 01:00 Drug: NS 0.9% 1000 ml Route: IV; Rate: 125 ml/hr; Site: left hand; ea 01:16 Follow up: Response: No adverse reaction; IV Status: Infusion continued upon admission ea Outcome: 00:13 Decision to Hospitalize by Provider. alec 00:30 Instructed on the need for admit. ea 02:13 Patient left the ED. ea 02:15 Admitted to ICU accompanied by nurse, via stretcher, room 6, with chart, Report called ea to Nelda MCGRATH 02:15 Condition: stable Signatures: Mateo Fox MD MD cha Sanford, Demi ds1 Analy Alfonso RN RN sagar Corrections: (The following items were deleted from the chart) 01: 01:01 Reassessment: Patient and/or family updated on plan of care and expected ea duration. Pain level reassessed. ea 00:45 Reassessment: Patient and/or family updated on plan of care and expected ea duration. Pain level reassessed. Pt alert oriented x 2. Sitter at bedside. ea : 00:45 Reassessment: Patient and/or family updated on plan of care and expected ea duration. Pain level reassessed. Pt alert oriented x 2. Sitter at bedside. Respirations even and unlabored. Chest expansion even and symmetrical. No s/s of pain or discomfort noted at this time. ea : 00:15 Reassessment: Patient and/or family updated on plan of care and expected ea duration. Pain level reassessed. Pt resting quietly, alert and oriented x 2. Respirations even and unlabored. Pt offered something to drink, pt refused. Restraints remain in place, CMS intact. Pt states while pointing at restraints "if you take these things off I am going to pull this damn IV out of my hand" ea 05:21 01:00 Reassessment: Patient and/or family updated on plan of care and expected ea duration. Pain level reassessed. Pt continues to yell, pt is no longer attempting to pull on IV. Restraints removed from mary wrists, CMS intact to mary upper extremities. Pt alert and oriented x 2, respirations even and unlabored. chest expansions even and symmetrical. No s/s of pain or discomfort noted at this time. Medication administered, pt tolerated well. Pt not attempting to remove IV at this time. Tolerated PO fluids well. ea
--- NOTE | 2018-07-30 00:14 | EDPHYS ---
Physician Documentation [facility] Name: Tina Padron Age: 72 yrs Sex: Female : 1945 Arrival Date: 07/29/2018 Time: 23:15 Bed 16 Private MD: ED Physician Mateo Fox HPI: 07/29 23:42 This 72 yrs old Female presents to ER via EMS with complaints of overdose. alec 23:42 upset, suicidal attempt. The patient presents with confusion, trouble concentrating. alce Onset: The symptoms/episode began/occurred just prior to arrival. Possible causes: drug use, narcotics. Associated signs and symptoms: The patient has no apparent associated signs or symptoms. Current symptoms: In the emergency department the patient's symptoms are unchanged from the initial presentation. Patient's baseline: Neuro: alert and fully oriented. Severity of symptoms: At their worst the symptoms were mild moderate in the emergency department the symptoms have improved moderately. Historical: - Allergies: 23:34 Compazine; ea - Home Meds: 23:34 "blood pressure medication" [Active]; "cholesterol medication" [Active]; "thyroid ea medication" [Active]; Macrobid Oral [Active]; Percocet 7.5-325 mg Oral tab 1 tab three times a day [Active]; - PMHx: 23:34 Hypothyroidism; Hypertension; Hyperlipidemia; chronic uti; Anxiety; "shattered ea shoulder"; - PSHx: 23:34 Unable to obtain; ea - Immunization history:: Adult Immunizations up to date. - Social history:: Smoking status: unknown. - Ebola Screening: : No symptoms or risks identified at this time. - Family history:: not pertinent. ROS: 23:42 Constitutional: Negative for fever, chills, and weight loss, Eyes: Negative for injury, alec pain, redness, and discharge, ENT: Negative for injury, pain, and discharge, Neck: Negative for injury, pain, and swelling, Cardiovascular: Negative for chest pain, palpitations, and edema, Respiratory: Negative for shortness of breath, cough, wheezing, and pleuritic chest pain, Abdomen/GI: Negative for abdominal pain, nausea, vomiting, diarrhea, and constipation, Back: Negative for injury and pain, : Negative for injury, bleeding, discharge, and swelling, MS/Extremity: Negative for injury and deformity, Skin: Negative for injury, rash, and discoloration, Neuro: Negative for headache, weakness, numbness, tingling, and seizure, Allergy/Immunology: Negative for hives, rash, and allergies, Endocrine: Negative for neck swelling, polydipsia, polyuria, polyphagia, and marked weight changes, Hematologic/Lymphatic: Negative for swollen nodes, abnormal bleeding, and unusual bruising. 23:42 Psych: Positive for depression, suicide gesture, suicidal ideation. Exam: 23:42 Constitutional: This is a well developed, well nourished patient who is awake, alert, alec and in no acute distress. Head/Face: Normocephalic, atraumatic. Eyes: Pupils equal round and reactive to light, extra-ocular motions intact. Lids and lashes normal. Conjunctiva and sclera are non-icteric and not injected. Cornea within normal limits. Periorbital areas with no swelling, redness, or edema. ENT: Nares patent. No nasal discharge, no septal abnormalities noted. Tympanic membranes are normal and external auditory canals are clear. Oropharynx with no redness, swelling, or masses, exudates, or evidence of obstruction, uvula midline. Mucous membranes moist. Neck: Trachea midline, no thyromegaly or masses palpated, and no cervical lymphadenopathy. Supple, full range of motion without nuchal rigidity, or vertebral point tenderness. No Meningismus. Chest/axilla: Normal chest wall appearance and motion. Nontender with no deformity. No lesions are appreciated. Cardiovascular: Regular rate and rhythm with a normal S1 and S2. No gallops, murmurs, or rubs. Normal PMI, no JVD. No pulse deficits. Respiratory: Lungs have equal breath sounds bilaterally, clear to auscultation and percussion. No rales, rhonchi or wheezes noted. No increased work of breathing, no retractions or nasal flaring. Abdomen/GI: Soft, non-tender, with normal bowel sounds. No distension or tympany. No guarding or rebound. No evidence of tenderness throughout. Back: No spinal tenderness. No costovertebral tenderness. Full range of motion. Female : Normal external genitalia. Skin: Warm, dry with normal turgor. Normal color with no rashes, no lesions, and no evidence of cellulitis. MS/ Extremity: Pulses equal, no cyanosis. Neurovascular intact. Full, normal range of motion. 23:42 Neuro: Orientation: to person, place, situation, Not oriented to time, Mentation: slow to respond, Memory: unable to test, Cranial nerves: is grossly normal based on the patient's age, no acute changes, CN I not tested, Cerebellar function: is grossly normal, is grossly normal based on the patient's age, no acute changes, Motor: moves all fours, Sensation: no obvious gross deficits, appropriate no acute changes, Gait: not tested. Babinski testing is normal, seizure activity, is not displayed by the patient. Vital Signs: 23:37 BP 127 / 104; Pulse 80; Resp 18; Temp 97.4(O); Pulse Ox 96% on R/A; ea 07/30 00:45 BP 153 / 77; Pulse 75; Resp 17; Pulse Ox 97% on R/A; ea 01:45 BP 141 / 68; Pulse 76; Resp 18; Temp 97.8(TE); Pulse Ox 98% on R/A; ea MDM: 07/29 23:28 Patient medically screened. [facility] 23:42 Data reviewed: vital signs, nurses notes, lab test result(s), EKG, radiologic studies, [facility] plain films. 07/29 23:21 Order name: Acetaminophen; Complete Time: 00:58 [facility] 07/29 23:21 Order name: Basic Metabolic Panel; Complete Time: 00:58 [facility] 07/29 23:21 Order name: CBC with Diff; Complete Time: 00:51 [facility] 07/29 23:21 Order name: ETOH Level; Complete Time: 00:58 [facility] 07/29 23:21 Order name: Hepatic Function; Complete Time: 00:58 [facility] 07/29 23:21 Order name: PT-INR; Complete Time: 00:51 [facility] 07/29 23:21 Order name: Ptt, Activated; Complete Time: 00:51 [facility] 07/29 23:21 Order name: Salicylate; Complete Time: 00:58 [facility] 07/29 23:21 Order name: Urine Drug Screen [facility] 07/29 23:37 Order name: Urine Culture [facility] 07/29 23:21 Order name: EKG; Complete Time: 23:22 [facility] 07/29 23:21 Order name: EKG - Nurse/Tech; Complete Time: 23:58 [facility] 07/29 23:21 Order name: IV Saline Lock; Complete Time: 23:58 [facility] 07/29 23:21 Order name: Labs collected and sent; Complete Time: 23:58 [facility] 07/29 23:38 Order name: Restrain Patient; Complete Time: 01:37 [facility] 07/30 00:23 Order name: Social Service Consult EDMS Administered Medications: 23:41 CANCELLED (Duplicate Order): Geodon 20 mg IM once [facility] 23:50 Drug: Cefepime 1 grams Route: IVPB; Rate: 200 ml/hr; Infused Over: 30 mins; Site: left ea hand; 07/30 00:30 Follow up: Response: No adverse reaction ea 00:30 Follow up: Response: No adverse reaction; IV Status: Completed infusion ea 00:25 Drug: Ativan 1 mg Route: IVP; Site: left hand; ea 01:14 Follow up: Response: No adverse reaction; Marked relief of symptoms ea 00:56 Drug: Geodon 10 mg Route: IM; Site: right deltoid; ea 01:14 Follow up: Response: No adverse reaction; Marked relief of symptoms ea 01:00 Drug: NS 0.9% 1000 ml Route: IV; Rate: 125 ml/hr; Site: left hand; ea 01:16 Follow up: Response: No adverse reaction; IV Status: Infusion continued upon admission ea Disposition: 07/30/18 00:13 Hospitalization ordered by Bozena Piña for Inpatient Admission. Preliminary diagnosis are Suicidal ideations, Suicide attempt, Urinary tract infection, site not specified. - Bed requested for Intensive Care Unit. - Status is Inpatient Admission. ea - Condition is Fair. - Problem is new. - Symptoms have improved. UTI on Admission? Yes Signatures: Dispatcher [employer] EDIN Vanessa Juan RN RN mw Anderson, Corey, MD MD cha Knox, Taylor, RN RN tl2 Analy Alfonso RN RN ea Corrections: (The following items were deleted from the chart) 07/29 23:41 23:37 Geodon 20 mg IM once ordered. [facility] 07/30 00:43 00:13 Hospitalization Ordered by Bozena Piña MD for Inpatient Admission. Preliminary diagnosis is Suicidal ideations; Suicide attempt; Urinary tract infection, site not specified. Bed requested for Telemetry/MedSurg (Inpatient). Status is Inpatient Admission. Condition is Fair. Problem is new. Symptoms have improved. UTI on Admission? Yes. alec 00:50 00:43 07/30/2018 00:13 Hospitalization Ordered by Bzoena Piña MD for Inpatient mw Admission. Preliminary diagnosis is Suicidal ideations; Suicide attempt; Urinary tract infection, site not specified. Bed requested for [facility] ER HOLD. Status is Inpatient Admission. Condition is Fair. Problem is new. Symptoms have improved. UTI on Admission? Yes. mw 01:01 07/29 23:21 Urine Dipstick-Ancillary ordered. tl2 ea 07/30 02:13 00:50 07/30/2018 00:13 Hospitalization Ordered by Bozena Piña MD for Inpatient ea Admission. Preliminary diagnosis is Suicidal ideations; Suicide attempt; Urinary tract infection, site not specified. Bed requested for Intensive Care Unit. Status is Inpatient Admission. Condition is Fair. Problem is new. Symptoms have improved. UTI on Admission? Yes. mw
[2018-07-30] MEDS ORDERED: LORazepam 2 MG/ML VIAL ONE (00:32)
[2018-07-30 00:40] LABS: Absolute Lymphocytes (CBC) 0.6 K/uL (0.7-4.9); Absolute Monocytes 0.7 K/uL (0.1-1.3); Absolute Neutrophil 3.7 K/uL (1.8-8.0); Basophils % 0.8 % (0-1.3); Eosinophils % 2.7 % (0-4.4); Hematocrit 30.2 % (36.0-45.0); Lymphocytes % 12.3 % (15.3-44.8); MCH 30.6 pg (27.0-35.0); MCV 87.4 fL (80-100); MPV 9.2 fL (7.6-11.3); Monocytes % 13.2 % (3.3-12.3); RBC Red Blood Cell Count 3.45 M/uL (3.86-4.86)
[2018-07-30 00:43] LABS: Protime INR 0.97
[2018-07-30] MEDS ORDERED: MORPHINE 2 MG/ML SYR IV PRN (00:44)
[2018-07-30] MEDS ORDERED: ACETAMINOPHEN 500 MG TAB PO PRN (00:44)
[2018-07-30] MEDS ORDERED: ONDANSETRON 4 MG/2 ML VIAL IV PRN (00:44)
[2018-07-30] MEDS ORDERED: ZIPRASIDONE MESYLA 20 MG/VIAL IM ONE (00:45)
[2018-07-30] MEDS ORDERED: WATER FOR INJ,STERILE 10 ML ONE (00:45)
[2018-07-30 00:53] LABS: Albumin 3.3 g/dL (3.4-5.0); Bilirubin Direct 0.1 mg/dL (0-0.2); Bilirubin Total 0.4 mg/dL (0.2-1.0); Potassium 4.3 mmol/L (3.5-5.1); Protein, Total 6.4 g/dL (6.4-8.2)
[2018-07-30] MEDS ORDERED: NA CHLORIDE 0.9% 1,000 ML IV SCH (01:00)
[2018-07-30] MEDS: LEVOTHYROXINE SOD 0.1 MG TAB PO SCH ×3 (05:29→08:14)
--- NOTE | 2018-07-30 06:41 | EKG ---
Test Date: 2018-07-29 Test Time: 23:55:19 Confectionery Cooker: SHARON MEASUREMENT RESULTS: Intervals: Rate: 78 TX: 190 QRSD: 70 QT: 414 QTc: 471 [place]: P: 66 TX: 190 QRS: 7 T: 26 INTERPRETIVE STATEMENTS: Normal sinus rhythm ST & T wave abnormality, consider anterior ischemia Abnormal ECG Compared to ECG 12/13/2017 14:42:23 ST (T wave) deviation now present Possible ischemia now present Electronically Signed On 07-30-18 06:41:03 CDT by Mustapha Blevins
[2018-07-30 07:25] LABS: Barbiturates NEGATIVE (NEGATIVE); Benzodiazepines POSITIVE (NEGATIVE); Cocaine NEGATIVE (NEGATIVE); METHAMPHETAM NEGATIVE (NEGATIVE); Methadone NEGATIVE (NEGATIVE); Opiates NEGATIVE (NEGATIVE); Phencyclidine NEGATIVE (NEGATIVE); THC Cannibis NEGATIVE (NEGATIVE)
[2018-07-30] MEDS ORDERED: MORPHINE 4 MG/ML SYR IV PRN (07:26)
[2018-07-30] MEDS: PANTOPRAZOLE 40MG TABLET PO SCH ×2 (08:15→20:06)
[2018-07-30] MEDS ORDERED: MULTIVITAMIN PO SCH (09:00)
[2018-07-30] MEDS ORDERED: DICYCLOMINE HCL PO SCH (09:00)
[2018-07-30] MEDS ORDERED: Oxycodone HCl/Acetaminophen 1 TAB TAB PO SCH (09:00)
[2018-07-30] MEDS ORDERED: MULTIVITAMIN TAB PO SCH (09:00)
[2018-07-30] MEDS ORDERED: ASPIRIN 81 MG CHEWABLE TABLET PO SCH (09:00)
[2018-07-30] MEDS ORDERED: HOME MED 1 EA UNK (Omeprazole Magnesium [Prilosec Otc] 20 MG) PO SCH (09:00)
--- NOTE | 2018-07-30 10:04 | P.HP ---
Certification for Inpatient Patient admitted to: Inpatient With expected LOS: >2 Midnights Patient will require the following post-hospital care: None Practitioner: I am a practitioner with admitting privileges, knowledge of patient current condition, hospital course, and medical plan of care. Services: Services provided to patient in accordance with Admission requirements found in Title 42 Section 412.3 of the Code of Federal Regulations Patient History Date of Service: 07/30/18 Reason for admission: Overdose/ possible suicidal ideations History of Present Illness: Patient is a 72-year-old female who presents to the emergency room after taking at least 14 Percocet as-03/02/2025 tablets. Since then she is very somnolent. There was concern that she may have tried to harm herself. She was not really awake when we came to evaluate her on a couple different occasions. At this time will go ahead and air on the side of caution and admit her for further evaluation. Hoping she is able to get her testing done today and tomorrow. At that time she will come back to our facility. Allergies prochlorperazine [From Compazine] Allergy (Intermediate, Verified 12/08/17 12:55 ) PYSCHOSIS Prochlorperazine Maleate Allergy (Uncoded 04/22/18 15:25) Unknown Home Medications: Oxycodone HCl/Acetaminophen [Percocet 10-325 mg Tablet] 1 each PO TID 07/30/18 - Past Medical/Surgical History Diabetic: No -: Hypertension -: Hypothyroidism -: B-cell lymphoma -: DDD/DJD of spine -: Chronic recurrent UTI requiring long-term antibiot -: shingles ( ) -: Vertigo -: Anxiety -: Hysterectomy -: Cholecystectomy -: Gastric torsion repair -: Hip surgery -: Knee surgery -: Port-A-Cath placement and removal -: left breast removal -: TONSILLECTOMY Psychosocial/ Personal History: The patient is originally from [place]. She moved to the area in July. She is . She has 3 children. - Family History Mother Medical History: Heart disease, Hypertension, Diabetes, Kidney disease Father Medical History: Heart disease, Diabetes, Other (see notes) Notes: Alzheimers - Social History Smoking Status: Smoker current status UNK Place of Residence: Home Review of Systems 10-point ROS is otherwise unremarkable Physical Examination - Vital Signs Temperature: 97.8 F Blood Pressure: 107/61 Pulse: 64 Respirations: 13 Pulse Ox (%): 98 - Physical Exam General: Alert, In no apparent distress, Oriented x3 HEENT: Atraumatic, PERRLA, Mucous membr. moist/pink, EOMI, Sclerae nonicteric Neck: Supple, 2+ carotid pulse no bruit, No LAD, Without JVD or thyroid abnormality Respiratory: Clear to auscultation bilaterally, Normal air movement Cardiovascular: Regular rate/rhythm, Normal S1 S2, No murmurs Capillary refill: <2 Seconds Gastrointestinal: Normal bowel sounds, Soft and benign, Non-distended, No tenderness Musculoskeletal: No clubbing, No swelling, No tenderness Integumentary: No rashes Neurological: Normal gait, Normal speech, Normal strength at 5/5 x4 extr, Normal tone, Normal affect Lymphatics: No axilla or inguinal lymphadenopathy - Studies Laboratory Data (last 24 hrs) 07/29/18 23:55: PT 11.4, INR 0.97, APTT 31.9 07/29/18 23:55: WBC 5.2, Hgb 10.5 L, Hct 30.2 L, Plt Count 176 07/29/18 23:55: Sodium 144, Potassium 4.3, BUN 21 H, Creatinine 0.90, Glucose 99 , Total Bilirubin 0.4, AST 19, ALT 15, Alkaline Phosphatase 121 H Assessment & Plan - Problems (Diagnosis) (1) Suicidal ideation Current Visit: Yes Status: Acute (2) Overdose of opiate or related narcotic Current Visit: Yes Status: Acute (3) Hypertension Onset Date: 06/29/17 Current Visit: No Status: Chronic Qualifiers: (4) Hypothyroidism Onset Date: 06/29/17 Current Visit: No Status: Chronic Qualifiers: - Plan Plan: 1. [facility] evaluation 2. Suicidal precautions 3. Neuro checks Q hourly 4. Resume home medications 5. Monitor labs closely 6. Medically stable for transfer to inpatient psychiatric facility if excepted over the next 24-48 hr 7. GI and DVT prophylaxis Discharge Plan: Home Plan to discharge in: 24 Hours - Advance Directives Does patient have a Living Will: Yes Does patient have a Durable POA for Healthcare: Yes - Code Status/Comfort Care Code Status Assessed: Yes Code Status: Full Code Critical Care: No Time Spent Managing PTS Care (In Minutes): 50
[2018-07-30] MEDS ORDERED: ALPRAZOLAM 1 MG TABLET PO PRN (10:28)
[2018-07-30] MEDS: Oxycodone HCl/Acetaminophen 1 TAB TAB PO PRN ×3 (10:52→19:21)
[2018-07-30] MEDS: DICYCLOMINE HCL 10 MG CAP PO SCH ×2 (10:52→20:06)
[2018-07-30] MEDS: Ringers Lactate 1,000 ML IV SCH ×2 (10:53→17:45)
--- NOTE | 2018-07-30 12:46 | P.PN ---
Subjective Date of Service: 07/30/18 Chief Complaint: Overdose/ possible suicidal ideations She categoricaly denies any suicidal ideation or attempt. She has burning sensation urine but she said it is chrnic. She had multiple UTI in the past and treated Physical Examination - Vital Signs Temperature: 97.8 F Blood Pressure: 107/61 Pulse: 64 Respirations: 13 Pulse Ox (%): 98 - Physical Exam General: Alert, In no apparent distress HEENT: Atraumatic, PERRLA, EOMI Neck: Supple, JVD not distended Respiratory: Clear to auscultation bilaterally, Normal air movement Cardiovascular: Regular rate/rhythm, Normal S1 S2 Gastrointestinal: Normal bowel sounds, No tenderness Musculoskeletal: No tenderness Integumentary: No rashes Neurological: Normal speech, Normal tone, Normal affect Lymphatics: No axilla or inguinal lymphadenopathy - Studies Laboratory Data (last 24 hrs) 07/29/18 23:55: PT 11.4, INR 0.97, APTT 31.9 07/29/18 23:55: WBC 5.2, Hgb 10.5 L, Hct 30.2 L, Plt Count 176 07/29/18 23:55: Sodium 144, Potassium 4.3, BUN 21 H, Creatinine 0.90, Glucose 99 , Total Bilirubin 0.4, AST 19, ALT 15, Alkaline Phosphatase 121 H Medications List Reviewed: Yes Assessment And Plan - Current Problems (Diagnosis) (1) Altered mental status, unspecified Current Visit: Yes Status: Acute Qualifiers: Altered mental status type: somnolence Qualified Code(s): R40.0 - Somnolence (2) Dehydration Current Visit: Yes Status: Acute (3) UTI (urinary tract infection) Onset Date: 06/29/17 Current Visit: Yes Status: Acute Qualifiers: Urinary tract infection type: site unspecified Hematuria presence: without hematuria Qualified Code(s): N39.0 - Urinary tract infection, site not specified (4) Anxiety disorder Onset Date: 09/09/17 Current Visit: No Status: Chronic Qualifiers: Anxiety disorder type: generalized anxiety disorder (5) Chronic pain disorder Current Visit: Yes Status: Chronic (6) DJD (degenerative joint disease) Onset Date: 06/29/17 Current Visit: Yes Status: Chronic Qualifiers: Osteoarthritis type: unspecified Laterality: bilateral (7) History of B-cell lymphoma Onset Date: 06/29/17 Current Visit: Yes Status: Chronic (8) Hypertension Onset Date: 06/29/17 Current Visit: Yes Status: Chronic Qualifiers: Hypertension type: essential hypertension (9) Hypothyroidism Onset Date: 06/29/17 Current Visit: Yes Status: Chronic Qualifiers: Hypothyroidism type: acquired - Plan --Cont IVF --Start axipime --Floor --UCX pending --Social Work const --PT
[2018-07-30] MEDS: CEFEPIME/SWI 2gm 2 GM/20 ML SYR IV SCH (17:37)
[2018-07-30] MEDS ORDERED: METOPROLOL TAR 50 MG TAB PO ONE (20:18)
[2018-07-30] MEDS ORDERED: ALPRAZOLAM 1 MG TABLET PO SCH (21:00)
[2018-07-30] MEDS ORDERED: LORazepam 2 MG/ML VIAL IV ONE (23:41)
[2018-07-31] MEDS: Ringers Lactate 1,000 ML IV SCH (03:00)
[2018-07-31] MEDS ORDERED: DIAZEPAM 5 MG TABLET PO ONE (04:23)
[2018-07-31] MEDS: CEFEPIME/SWI 2gm 2 GM/20 ML SYR IV SCH (04:24)
[2018-07-31] MEDS: LEVOTHYROXINE SOD 0.1 MG TAB PO SCH (05:54)
--- NOTE | 2018-07-31 10:06 | P.DS ---
Discharge Date: 07/31/18 Disposition: ROUTINE DISCHARGE Discharge Condition: GOOD Reason for Admission: Overdose/ possible suicidal ideations - Problems (1) Suicidal ideation Status: Acute (2) Overdose of opiate or related narcotic Status: Acute (3) Hypertension Onset Date: 06/29/17 Status: Chronic Qualifiers: Hypertension type: essential hypertension (4) Hypothyroidism Onset Date: 06/29/17 Status: Chronic Qualifiers: Hypothyroidism type: acquired Brief History of Present Illness: Patient is a 72-year-old female who presents to the emergency room after taking at least 14 Percocet as-03/02/2025 tablets. Since then she is very somnolent. There was concern that she may have tried to harm herself. She was not really awake when we came to evaluate her on a couple different occasions. At this time will go ahead and air on the side of caution and admit her for further evaluation. Hoping she is able to get her testing done today and tomorrow. At that time she will come back to our facility. Hospital Course: Patient was seen by [facility]. Patient was not actively suicidal. Patient unintentionally overdosed. Patient is clinically doing much better and she is clinically stable for discharge home. Vital Signs/Physical Exam: Temp Pulse Resp BP Pulse Ox 98.6 F 93 H 20 113/57 L 93 07/31/18 00:00 07/31/18 00:00 07/31/18 00:00 07/31/18 00:00 07/31/18 00:00 General: Alert, In no apparent distress, Confused Laboratory Data at Discharge: WBC 5.2 K/uL (4.3-10.9) 07/29/18 23:55 Hgb 10.5 g/dL (12.0-15.0) L 07/29/18 23:55 Hct 30.2 % (36.0-45.0) L 07/29/18 23:55 Plt Count 176 K/uL (152-406) 07/29/18 23:55 PT 11.4 SECONDS (9.5-12.5) 07/29/18 23:55 INR 0.97 07/29/18 23:55 APTT 31.9 SECONDS (24.3-36.9) 07/29/18 23:55 Sodium 144 mmol/L (136-145) 07/29/18 23:55 Potassium 4.3 mmol/L (3.5-5.1) 07/29/18 23:55 BUN 21 mg/dL (7-18) H 07/29/18 23:55 Creatinine 0.90 mg/dL (0.55-1.3) 07/29/18 23:55 Glucose 99 mg/dL (74-106) 07/29/18 23:55 Total Bilirubin 0.4 mg/dL (0.2-1.0) 07/29/18 23:55 AST 19 U/L (15-37) 07/29/18 23:55 ALT 15 U/L (12-78) 07/29/18 23:55 Alkaline Phosphatase 121 U/L (45-117) H 07/29/18 23:55 Home Medications: Metoprolol Tartrate [Lopressor*] 50 mg PO BID 07/30/18 Oxycodone HCl/Acetaminophen [Percocet 10-325 mg Tablet] 1 each PO TID 07/30/18 Fluconazole [Diflucan] 200 mg PO DAILY #7 tablet 07/31/18 New Medications: Fluconazole [Diflucan] 200 mg PO DAILY #7 tablet Patient Discharge Instructions: OK to DC IV and DC home. Follow-up with PCP in 1-2 weeks. Return to the ER if symptoms worsens. Call me at [phone] if any questions regarding hospital stay Diet: Regular Activity: Fall precautions Followup: Judd Gagnon MD [Primary Care Provider] - 1-2 Weeks (Call to schedule an appointment) Time spent managing pt's care (in minutes): 30
== END 2018-07-31 08:02 | disposition home or self-care (01) | DRG 914 ==
LOC: ER 23:15 → ERHOLD 07-30 00:37 → EEVIPCON 07-30 00:37 → 3RD-ICU 07-30 01:29 → 4TH 07-30 22:43
PROVIDERS: ADMIT Hospitalist; ATTEND Hospitalist
DX: T14.91XA Suicide attempt, initial encounter (principal); T40.2X2A Poisoning by other opioids, intentional self-harm, initial encounter; R40.0 Somnolence; Y92.009 Unspecified place in unspecified non-institutional (private) residence as the place of occurrence of the external cause; I10 Essential (primary) hypertension; E03.9 Hypothyroidism, unspecified; Z85.72 Personal history of non-Hodgkin lymphomas; F41.9 Anxiety disorder, unspecified; E86.0 Dehydration; G89.29 Other chronic pain
CPT/HCPCS: 36415; 80048; 80076; 80307; 80320; 80329; 81003; 81015; 85025; 85610; 85730; 87086; 87088; 93005; 96365; 96372; 96375; 99283; 99285; J0692; J2270; J3486; J7030

== ENCOUNTER 2018-08-10 05:11 | Emergency (ER) | payer OTHER ==
--- OUTSIDE RECORDS SUMMARY | 2018-08-10 05:13 | XMS REPORT | Summary of Care ---
:1945 Author Organization [facility] [place] Address [address] [place] [address]- Encounter HQ Encntr_alias(FIN) [id number] Date(s): 04/13/18 - 04/13/18 [facility] [place] [address] [id number] [phone] Discharge Disposition: Home or Self Care Attending Physician: Abe Benz MD Vital Signs No data available for this section Problem List No data available for this section Allergies, Adverse Reactions, Alerts Substance Reaction Severity Status Compazine Active Medications No data available for this section Results No data available for this section Immunizations No data available for this section Procedures No data available for this section Social History Social History Type Response Smoking Status Never smoker; Exposure to Tobacco Smoke None; Cigarette Smoking Last 365 Days No; Reg Smoking Cessation Counseling No entered on: 04/02/18 Assessment and Plan No data available for this section
--- OUTSIDE RECORDS SUMMARY | 2018-08-10 05:13 | XMS REPORT | Continuity of Care Document ---
:1945 Author Organization Interface Problems Problem Status Onset Classification Date Comments Source Date Reported UTI Active 07/23/[address] [place] M25.561 - PAIN Active 05/17/20 [facility] IN RIGHT KNEE 18 [place] M25.562 - P Acute UTI 04/02/20 04/05/2018 [place] 18 L1 vertebral 04/02/20 04/05/2018 [place] fracture 18 M25.512 - PAIN Active 02/22/20 [facility] IN LEFT 18 [place] SHOULDER Pain in left 01/25/20 04/25/2018 [facility] shoulder 18 [place] Displaced 04/25/2018 [facility] fracture of [place] lateral end of left clavicle, subsequent encounter for fracture with routine healing URINARY TRACT Active [facility] SITE NOT SPECIF Medications Medication Details Route Status Patient Ordering Order Source Instructions Provider Date Fosfomycin 3 gm, 1 Inactive pkt, Route: 018 [place] PO, Drug form: PDR/REC, ONCE, Dosing Weight 72.727, kg, Start date: 04/02/18 11:32:00 CDT, Stop date: 04/02/18 11:32:00 CDT, ABX Indication: Urinary Tract Infection Diflucan 150 mg, 1 Inactive tab, Route: 018 [place] PO, Drug form: TAB, ONCE, Dosing Weight 72.727, kg, Start date: 04/02/18 11:32:00 CDT, Stop date: 04/02/18 11:32:00 CDT, ABX Indication: Other (specify in Comments)No maureen: (Same as: Diflucan) Acetaminophen 1 tab, Inactive 325 MG / Route: PO, 018 [place] Hydrocodone Drug Form: Bitartrate 5 MG TAB, Dosing Oral Tablet Weight [[place] 5/325] 72.727, kg, ONCE, STAT, Start date: 04/02/18 8:23:00 CDT, Stop date: 04/02/18 8:23:00 CDTNotes: (Same as: [place] 325/5) Do not exceed 4gm/day of acetaminoph en. Sodium Chloride 1,000 mL, Inactive MH 0.9% (Bolus) IV 1000 ml/hr, 018 [facility] Infuse Over: 1 hr, Route: IV, 1,000, Drug form: INJ, ONCE, Priority: STAT, Dosing Weight 72.727 kg, Start date: 04/02/18 8:23:00 CDT, Stop date: 04/02/18 8:23:00 CDT Saline Flush 10 mL, Inactive MH 0.9% Route: IVP, 018 [place] Drug Form: INJ, Dosing Weight 72.727, kg, PRN, PRN Line Flush, Start date: 04/02/18 8:23:00 CDT, Duration: 30 day, Stop date: 05/02/18 8:22:00 CDTNotes: (Same as: BD Posiflush) Allergies, Adverse Reactions, Alerts Substance Category Reaction Severity Reaction Status Date Comments Source type Reported Compazine Assertion Drug Active [facility] allergy [place] Immunizations Immunization Date Given Site Status Last Updated Comments Source Results Order Name Results Value Reference Date Interpretation Comments Source Range Clavicle Clavicle DX Left clavicle, 2 views 07/18 - [facility] DX - [facility] HISTORY:- S42.002D Fracture of unspecified part of left clavicle, subsequent encounter for fracture with routine healing Read by: Roger Conklin MD Dictated Date/time: 07/19/18 07:36 Electronically Signed by: Roger Conklin MD 07/19/18 07:39 FINAL REPORT COMPARISON: Radiographs dated 05/09/2018. FINDINGS: AP and apical lordotic views of the left clavicle demonstrate evidence of previous lateral clavicular fracture. Stable alignment. Stable orientation of a fixation plate and corresponding screws. No visible callus. IMPRESSION: Essentially stable exam as compared with 05/09/2018. SL: LS-M Extremity Extremity CT LEFT CLAVICLE WITHOUT CONTRAST WITH SAGITTAL AND CORONAL REFORMATTED IMAGES 05/10 - [facility] [place] [facility] contrast contrast uni d uni CT CT HISTORY: S42.002D - LT. CLAVICULAR FX.; 72-year-old female reports left shoulder fracture sustained during fall in October 2017, CT DLP 324.06 Read by: Akbar Vaca MD Dictated Date/time: 05/12/18 10:29 Electronically Signed by: Akbar Vaca MD 05/12/18 10:46 FINAL REPORT COMPARISON: Left clavicle radiography dated 01/17/2018, 03/02/2018, 2017, and 05/09/2018 FINDINGS: Changes of internal fixation of comminuted clavicular shaft fracture utilizing clavicular hook plate again noted. Hardware positioning is satisfactory. No evidence of hardware loosening. Evaluation of the clavicular fracture significantly limited by marked metallic streak artifact. Ill-defined comminution fragments of the mid-distal clavicular shaft appear to be partially incorporated with the major proximal shaft fragment. There is slight posterior and inferior displacement of he aled comminution fragments but these fragments do not impinge on any musculotendinous structures. The major distal clavicle fracture fragment at the acromioclavicular joint which measures 2.2 x 1.0 x 0.9 cm demonstrates nonunion and is mildly displaced anteriorly relative to the remainder of the cla vicle by approximately 0.8 cm (axial series 2 images 26-34). Acromioclavicular joint is normal without diastases. No osseous erosion to suggest CT evidence of osteomyelitis. Trace degenerative subcortical cystic change of the humeral head at the rotator cuff insertion. Proximal humerus is otherwise normal. Normal g lenoid and coracoid processes of the scapula. No acromion fracture. No soft tissue mass or fluid collection. Visualized left lung is clear. IMPRESSION: 1. Old comminuted clavicular shaft fracture with clavicular hook plate fixation. No evidence of hardware loosening. 2. Evaluation of the clavicular fracture significantly limited by marked metallic streak artifact. 3. The clavicular comminution fragments appear healed to the major proximal shaft fragment. 4. 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 SL: [id number] Knee 4+ Knee 4+ Clinical Indication: M25.561 Pain in right knee, M25.562 Pain in left knee - left knee pain. 05/09 - [facility] views views bilat /2018 - [facility] bilat DX DX Comparison: None d Read by: Taj Tim DO Dictated Date/time: 05/09/18 17:57 Right knee: Electronically Signed by: Taj Tim DO 05/09/18 17:59 FINAL REPORT FINDINGS: The AP, oblique, sunrise and lateral views of the right knee show a total knee arthroplasty with expected alignment. Old cortical avulsion fracture seen near the MCL origin. No acute fracture line is vi sualized. There is no abnormal lucency surrounding the hardware. No significant joint effusion is seen. No focal soft tissue swelling is seen. If there is further concern, recommend follow-up radiographs or bone scan for complete assessment. IMPRESSION: 1. Right total knee arthroplasty with expected alignment. Left knee: FINDINGS: The AP, oblique, sunrise and lateral views of the left knee show normal alignment without fractures or dislocations. There is severe medial and patellofemoral compartment degenerative arthritis. There i s moderate lateral compartment degenerative arthritis. There is no knee region soft tissue swelling. Hoffa's fat pad region is unremarkable. There are no joint bodies. There is a small joint effusion. There are no radiopaque foreign bodies. If there is further concern, recommend follow-up radiographs or MRI for complete assessment. IMPRESSION: 1. Moderate to severe degenerative arthritis of the left knee. SL: [id number] Clavicle Clavicle DX Exam: Left Clavicle DX 05/09 - [facility] DX /2017 - [facility] Clinical Indication: M25.512 Pain in left shoulder - follow up. d Comparison: 04/13/2018. Read by: Taj Tim DO Dictated Date/time: 05/09/18 17:05 Electronically Signed by: Taj Tim DO 05/09/18 17:06 FINAL REPORT FINDINGS: The AP and apical lordotic views of the left clavicle again show show stable plate and screw fixation of the distal clavicle and AC joint. There is no lucency surrounding the hardware. There a re no acute fractures or dislocations. There is no significant surrounding callus formation seen. The sternoclavicular articulation is unremarkable. The coracoclavicular space and acromioclavicular brendan culation appear unremarkable. The visualized glenohumeral joint appears unremarkable. The visualized scapula and coracoid process appear normal. There are no radiopaque foreign bodies. The visualized ribs appear unremarkable. If there is further concern, followup radiographs may be obtained for complete assessment. IMPRESSION: 1. Stable plate and screw fixation of distal left clavicle and left AC joint. SL: [id number] Clavicle Clavicle DX Exam: Left Clavicle DX 04/13 - [facility] DX /2017 - [facility] Clinical Indication: M25.512 Pain in left shoulder - follow up. d Comparison: 03/02/2018. Read by: Taj Tim DO Dictated Date/time: 04/13/18 11:04 Electronically Signed by: Taj Tim DO 04/13/18 11:05 FINAL REPORT FINDINGS: The AP and apical lordotic views of the clavicle show stable plate and screw fixation of the distal clavicle and AC joint. There is no lucency surrounding the hardware. There are no acute frac tures or dislocations. No significant surrounding callus formation seen. The sternoclavicular articulation is unremarkable. The coracoclavicular space and acromioclavicular articulation appear unremarka ble. The visualized glenohumeral joint appears unremarkable. The visualized scapula and coracoid process appear normal. There are no radiopaque foreign bodies. The visualized ribs appear unremarkable. If there is further concern, followup radiographs may be obtained for complete assessment. IMPRESSION: 1. Stable plate and screw fixation of distal left clavicle and left AC joint. SL: [id number] CHEM PANEL Lactic Acid 1.0 mMol/L 0.5 - 2.2 04/02 [facility] [place] CHEM PANEL eGFR 48 04/02 Result Comment: The eGFR is calculated using the CKD-EPI formula. In most young, healthy individuals the eGFR will be >90 mL/ min/1.73m2. The eGFR declines with age. An eGFR of 60-89 may be normal in MH mL/min/1. some populations, particularly the elderly, for whom the CKD-EPI formula has not been extensively validated. Use of the eGFR is not recommended in the following populations: [address] Individuals with unstable creatinine concentrations, including patients and those with serious co-morbid conditions. Patients with extremes in muscle mass or diet. The data above are obtained from the National Kidney Disease Education Program (NKDEP) which additionally recommends that when the eGFR is used in patients with extremes of body mass index for purposes of drug dosing, the eGFR should be multiplied by the estimated BMI. CHEM PANEL Total 5.7 g/dL 6.4 - 8.4 04/02 [place] CHEM PANEL Calcium Lvl 8.8 mg/dL 8.5 - 10.5 04/02 [place] CHEM PANEL CO2 29 meq/L 24 - 32 04/02 [place] CHEM PANEL Sodium Lvl 146 meq/L 135 - 145 04/02 [place] CHEM PANEL Potassium 3.5 meq/L 3.5 - 5.1 04/02 [facility] [place] CHEM PANEL Chloride Lvl 108 meq/L 95 - 109 04/02 [place] CHEM PANEL Creatinine 1.15 mg/dL 0.50 - 04/02 MH Lvl 1.40 [place] CHEM PANEL Glucose Lvl 103 mg/dL 70 - 99 04/02 [place] CHEM PANEL BUN 12 mg/dL 7 - 22 04/02 [place] CHEM PANEL Bili Total 0.4 mg/dL 0.2 - 1.3 04/02 [place] CHEM PANEL Alk Phos 149 unit/L 39 - 136 04/02 [place] CHEM PANEL AST 15 unit/L 0 - 37 04/02 [place] CHEM PANEL ALT 12 unit/L 0 - 65 04/02 [place] CHEM PANEL Albumin Lvl 2.9 g/dL 3.5 - 5.0 04/02 [place] CHEM PANEL A/G Ratio 1.0 0.7 - 1.6 04/02 [place] CHEM PANEL B/C Ratio 10 6 - 25 04/02 [place] CHEM PANEL Globulin 2.8 g/dL 2.7 - 4.2 04/02 [place] CHEM PANEL AGAP 12.5 meq/L 10.0 - 04/02 MH 20.0 [place] HEMATOLOGY MPV 7.6 fL 7.4 - 10.4 04/02 [place] HEMATOLOGY Platelet 187 K/CMM 133 - 450 04/02 [place] HEMATOLOGY Hct 31.3 % 36.0 - 04/02 MH 48.0 [place] HEMATOLOGY MCH 31.0 pg 27.0 - 04/02 MH 31.0 [place] HEMATOLOGY MCV 93.0 fL 80.0 - 04/02 MH 98.0 [place] HEMATOLOGY MCHC 33.4 g/dL 32.0 - 04/02 MH 36.0 [place] HEMATOLOGY RDW 15.5 % 11.5 - 04/02 MH 14.5 [place] HEMATOLOGY Hgb 10.4 g/dL 12.0 - 04/02 MH 16.0 [place] HEMATOLOGY WBC 4.8 K/CMM 3.7 - 10.4 04/02 [place] HEMATOLOGY RBC 3.36 M/CMM 4.20 - 04/02 MH 5.40 /2017 [place] HEMATOLOGY Basophils # 0.1 K/CMM 0.0 - 0.2 04/02 [place] HEMATOLOGY Eosinophils 0.1 K/CMM 0.0 - 0.5 04/02 [place] HEMATOLOGY Monocytes # 0.4 K/CMM 0.0 - 0.8 04/02 [place] HEMATOLOGY Basophils 1.2 % 0.0 - 1.0 04/02 [place] HEMATOLOGY Eosinophils 1.7 % 0.0 - 4.0 04/02 [place] HEMATOLOGY Monocytes 9.4 % 2.0 - 12.0 04/02 [place] HEMATOLOGY Lymphocytes 8.0 % 20.0 - 04/02 MH 40.0 [place] HEMATOLOGY Segs 79.7 % 45.0 - 04/02 MH 75.0 [place] HEMATOLOGY Lymphocytes 0.4 K/CMM 1.0 - 5.5 04/02 [place] HEMATOLOGY Segs-Bands # 3.8 K/CMM 1.5 - 8.1 04/02 [place] URINE AND UA RBC 3 /HPF 0 - 2 04/02 [facility] [place] URINE AND UA Bacteria Occasional None Seen 04/02 [facility] /HPF /HPF /2017 [place] URINE AND UA Mucus Few /LPF None Seen 04/02 [facility] /LPF [place] URINE AND UA Sq Epi Few /LPF Few /LPF 04/02 [facility] [place] URINE AND UA WBC 127 /HPF 0 - 5 04/02 [facility] /2017 [place] URINE AND UA [place] Yeast Few /HPF None Seen 04/02 [facility] /HPF /2018 [place] URINE AND UA <=1.0 0.1 - 1.0 04/02 [facility] Urobilinogen mg/dL [place] URINE AND UA Protein Negative Negative 04/02 [facility] mg/dL mg/dL [place] URINE AND UA pH 5.0 5.0 - 8.0 04/02 [place] URINE AND UA Spec Grav 1.013 <=1.030 04/02 [facility] [place] URINE AND UA Bili Negative Negative 04/02 [facility] [place] *NA* (04/02/18 8:55 AM) URINE AND UA Blood Negative Negative 04/02 [facility] [place] (04/02/18 8:55 AM) URINE AND UA Glucose Negative Negative 04/02 [facility] mg/dL mg/dL [place] URINE AND UA Ketones Negative Negative 04/02 [facility] mg/dL mg/dL [place] URINE AND UA Nitrite Negative Negative 04/02 [facility] [place] (04/02/18 8:55 AM) URINE AND UA Leuk Est Large Negative 04/02 [place] *ABN* (04/02/18 8:55 AM) URINE AND UA Color Yellow Yellow 04/02 [facility] [place] *NA* (04/02/18 8:55 AM) URINE AND UA Turbidity Slight Clear 04/02 [facility] [place] *ABN* (04/02/18 8:55 AM) ED ED Clinical Indication: - abd pain. 04/02 - [facility] Abdomen/Pe Abdomen/Pelv /2017 - [place] lvis IV is IV Comparison: None. contrast contrast only CT only CT Read by: Chris Limon MD Dictated Date/time: 04/02/18 10:08 Electronically Signed by: Chris Limon MD 04/02/18 10:17 FINAL REPORT TECHNIQUE: Helical imaging was performed from diaphragm through the symphysis with multiplanar reformations obtained. IV CONTRAST: 100 cc Omnipaque. GI CONTRAST: On CT Radiation Dose: LMI=801 mGy-cm FINDINGS: LOWER CHEST: The visualized lung bases are clear. LIVER: Unremarkable. GALLBLADDER: Status post cholecystectomy. INTRAHEPATIC BILE DUCT AND EXTRAHEPATIC BILE DUCT: Unremarkable. PANCREAS: Unremarkable. SPLEEN: Unremarkable. ADRENALS: Unremarkable. KIDNEYS AND URETERS: There are multiple bilateral renal cysts. There are also several subcentimeter hypodensities in the kidneys, too small to characterize. No significant hydronephrosis.. The lack of oral contrast limits evaluation of the hollow viscus structures. STOMACH: Status post gastric bypass. Small hiatal hernia. BOWEL: The small bowel loops in the abdomen and pelvis appear unremarkable. The colonic loops in the abdomen and pelvis appear unremarkable. APPENDIX: Not well seen on the exam. PERITONEUM AND RETROPERITONEUM: No ascites or free air. The aorta is calcified and atherosclerotic. LYMPH NODES: Unremarkable. PELVIS: Status post hysterectomy. BLADDER: Unremarkable. OSSEOUS STRUCTURES: There is L1 compression deformity. This appears chronic. Recommend magnetic resonance imaging if is concern for acute superimposed injury.Status post ORIF of right hip. SOFT TISSUES: Small fat-containing umbilical hernia. IMPRESSION: 1. No definitive CT evidence of acute pathology. 2. Status post cholecystectomy. 3. L1 compression fracture, which appears chronic. Consider magnetic resonance imaging if is concern for acute superimposed injury. 4. Bilateral renal cysts. 5. Small hiatal hernia. Status post gastric bypass. 6. Atherosclerotic disease. Additional findings, as above. SL: [id number] Clavicle Clavicle DX EXAM: Left Clavicle DX 2 views 03/02 - [facility] DX - [facility] DATE: 03/02/2018 9:25 AM CDT d INDICATION: M25.512 Pain in left shoulder - M25.512 Pain in left shoulder Read by: Min Reveles MD Dictated Date/time: 03/02/18 10:59 COMPARISON: 01/17/2018. Electronically Signed by: Min Reveles MD 03/02/18 11:05 FINAL REPORT IMPRESSION: Stable postoperative internal fixation of the distal clavicle and acromioclavicular joint. Alignment is grossly unchanged. No definite new acute focal abnormality detected. SL: [id number] Clavicle Clavicle DX Study: Left clavicle, 2 views 01/17 - [facility] DX /2017 - [facility] Clinical Indication: M25.512 - LT. SHOULDER PAIN Read by: Sina Mcmullen MD Dictated Date/time: 01/17/18 15:57 Electronically Signed by: Sina Mcmullen MD 01/17/18 16:02 FINAL REPORT Comparison: None FINDINGS: 2 views of the left clavicle show postoperative changes of hook plate fixation of a distal clavicular fracture with apposition of the major fracture fragments. No appreciable bridging callus f ormation is noted. Anatomic alignment is maintained about the acromioclavicular and glenohumeral joints. No perihardware fracture or suspicious paralleling lucency is seen. No hardware displacement is noted. IMPRESSION: Status post recent hook plate fixation of a distal clavicular fracture without acute bony abnormality or hardware complication. SL: SLEE- Vital Signs Vital Sign Value Date Comments Source Temperature Oral (F) 98.0 F 04/02/2018 [facility] Heart Rate 72 04/02/2018 [facility] Respitory Rate 18 04/02/2018 [facility] Systolic (mm Hg) 134 04/02/2018 [facility] Diastolic (mm Hg) 60 04/02/2018 [facility] Respitory Rate 17 04/02/2018 [facility] Systolic (mm Hg) 135 04/02/2018 [facility] Diastolic (mm Hg) 51 04/02/2018 [facility] Heart Rate 74 04/02/2018 [facility] Temperature Oral (F) 97.9 F 04/02/2018 [facility] Heart Rate 72 04/02/2018 [facility] Respitory Rate 18 04/02/2018 [facility] BMI Calculated 28.4 04/02/2018 [facility] Height 160.02 cm 04/02/2018 [facility] Systolic (mm Hg) 130 04/02/2018 [facility] Diastolic (mm Hg) 68 04/02/2018 [facility] Weight 72.727 04/02/2018 [facility] Encounters Location Location Encounter Encounter Reason Attending ADM DC Status Source Details Type Number For Provider Date Date Visit [facility] Outpt Diag [id number] Abe Benz 01/17 01/18 [facility]2017 [facility] Outpt Diag [id number] Abe Benz 03/02 03/03 [facility]2017 [facility] Emergency [id number] Vamshi 04/02 04/02 Natalio Lord /2017 [facility] Outpt Diag [id number] Abe Benz 04/13 04/14 [facility] [id number] Abe Benz 05/09 05/10 [facility]2017 [facility] Outpt Diag [id number] Abe Benz 05/10 05/11 [facility]2017 [facility] [place] Procedures Procedure Code Date Perfomer Comments Source
--- OUTSIDE RECORDS SUMMARY | 2018-08-10 05:13 | XMS REPORT | Summary of Care ---
:1945 Author Organization [facility] [place] Address [address] [place] [id number]- Encounter [facility] Encntr_alias(FIN) [id number] Date(s): 05/10/18 - 05/10/18 [facility] [place] [address] 128986- [phone] Discharge Disposition: Home or Self Care Attending Physician: Abe Benz MD Referring Physician: Abe Benz MD Vital Signs No [...]
--- OUTSIDE RECORDS SUMMARY | 2018-08-10 05:13 | XMS REPORT | Summary of Care ---
:[address] [facility] Address [address] [place] [address]- Encounter HQ Marielyntr_mino(FIN) [id number] Date(s): 04/02/18 - 04/02/18 [facility] [address] [place] [phone] Encounter Diagnosis Acute UTI (Discharge Diagnosis) - 04/02/18 L1 vertebral fracture (Discharge Diagnosis) - 04/02/18 Discharge Disposition: Home or Self Care Attending Physician: Vamshi Lord MD Vital Signs Most recent to oldest [Reference 1 2 3 Range]: Height 160.02 cm (04/02/18 8:06 AM) Temperature Oral [96.4-99.1 98.0 DegF 97.9 DegF DegF] (04/02/18 12:19 PM) (04/02/18 8:06 AM) Blood Pressure [90-140/60-90 134/60 mmHg 135/51 mmHg 130/68 mmHg mmHg] (04/02/18 12:19 PM) (04/02/18 12:05 PM) (04/02/18 8:06 AM) Respiratory Rate [14-20 BRMIN] 18 BRMIN 17 BRMIN 18 BRMIN (04/02/18 12:19 PM) (04/02/18 12:05 PM) (04/02/18 8:06 AM) Peripheral Pulse Rate [60-100 72 bpm 74 bpm 72 bpm bpm] (04/02/18 12:19 PM) (04/02/18 12:05 PM) (04/02/18 8:06 AM) Weight 72.727 kg (04/02/18 8:06 AM) Body Mass Index 28.4 m2 (04/02/18 8:06 AM) Problem List No data available for this section Allergies, Adverse Reactions, Alerts Substance Reaction Severity Status Compazine Active Medications Diflucan 150 mg, 1 tab, Route: PO, Drug form: TAB, ONCE, Dosing Weight 72.727, kg, Start date: 04/02/18 11:32:00 CDT, Stop date: 04/02/18 11:32:00 CDT, ABX Indication: Other (specify in Comments) Notes: (Same as: Diflucan) Start Date: 04/02/18 Stop Date: 04/02/18 Status: Completedfosfomycin 3 gm, 1 pkt, Route: PO, Drug form: PDR/REC, ONCE, Dosing Weight 72.727, kg, Start date: 04/02/18 11:32:00 CDT, Stop date: 04/02/18 11:32:00 CDT, ABX Indication: Urinary Tract Infection Start Date: 04/02/18 Stop Date: 04/02/18 Status: CompletedNorco 5/325 oral tablet 1 tab, Route: PO, Drug Form: TAB, Dosing Weight 72.727, kg, ONCE, STAT, Start date: 04/02/18 8:23:00CDT, Stop date: 04/02/18 8:23:00 CDT Notes: (Same as: [place] 325/5) Do not exceed 4gm/day of acetaminophen. Start Date: 04/02/18 Stop Date: 04/02/18 Status: CompletedSaline Flush 0.9% 10 mL, Route: IVP, Drug Form: INJ, Dosing Weight 72.727, kg, PRN, PRN Line Flush , Start date: 04/02/18 8:23:00 CDT, Duration: 30 day, Stop date: 05/02/18 8:22: 00 CDT Notes: (Same as: BD Posiflush) Start Date: 04/02/18 Stop Date: 04/02/18 Status: DiscontinuedSodium Chloride 0.9% (Bolus) IV 1,000 mL, 1000 ml/hr, Infuse Over: 1 hr, Route: IV, 1,000, Drug form: INJ, ONCE , Priority: STAT, Dosing Weight 72.727 kg, Start date: 04/02/18 8:23:00 CDT, Stop date: 04/02/18 8:23:00 CDT Start Date: 04/02/18 Stop Date: 04/02/18 Status: Completed Results ELECTROLYTES Most recent to oldest [Reference Range]: 1 Sodium Lvl [135-145 mEq/L] 146 mEq/L *HI* (04/02/18 9:05 AM) Potassium Lvl [3.5-5.1 mEq/L] 3.5 mEq/L (04/02/18 9:05 AM) Chloride Lvl [95-109 mEq/L] 108 mEq/L (04/02/18 9:05 AM) CO2 [24-32 mEq/L] 29 mEq/L (04/02/18 9:05 AM) AGAP [10.0-20.0 mEq/L] 12.5 mEq/L (04/02/18 9:05 AM) CHEM PANEL Most recent to oldest [Reference Range]: 1 Creatinine Lvl [0.50-1.40 mg/dL] 1.15 mg/dL (04/02/18 9:05 AM) eGFR 48 mL/min/1.73m2 1 *NA* (04/02/18 9:05 AM) BUN [7-22 mg/dL] 12 mg/dL (04/02/18 9:05 AM) B/C Ratio [6-25] 10 (04/02/18 9:05 AM) Glucose Lvl [70-99 mg/dL] 103 mg/dL *HI* (04/02/18 9:05 AM) Total Protein [6.4-8.4 g/dL] 5.7 g/dL *LOW* (04/02/18 9:05 AM) Albumin Lvl [3.5-5.0 g/dL] 2.9 g/dL *LOW* (04/02/18 9:05 AM) Globulin [2.7-4.2 g/dL] 2.8 g/dL (04/02/18 9:05 AM) A/G Ratio [0.7-1.6] 1.0 (04/02/18 9:05 AM) Calcium Lvl [8.5-10.5 mg/dL] 8.8 mg/dL (04/02/18 9:05 AM) ALT [0-65 unit/L] 12 unit/L (04/02/18 9:05 AM) AST [0-37 unit/L] 15 unit/L (04/02/18 9:05 AM) Alk Phos [39-136 unit/L] 149 unit/L *HI* (04/02/18 9:05 AM) Bili Total [0.2-1.3 mg/dL] 0.4 mg/dL (04/02/18 9:05 AM) Lactic Acid Lvl [0.5-2.2 mMol/L] 1.0 mMol/L (04/02/18 9:05 AM) 1Result Comment: The eGFR is calculated using the CKD-EPI formula. In most young , healthy individualsthe eGFR will be >90 mL/min/1.73m2. The eGFR declines with age. An eGFR of 60-89 may be normal insome populations, particularly the elderly, for whom the CKD-EPI formula has not been extensively validated. Use of the eGFR is not recommended in the following populations: Individuals with unstable creatinine concentrations, including patients and those with serious co-morbid conditions. Patients with extremes in muscle mass or diet. The data above are obtained from the National Kidney Disease Education Program ( NKDEP) which additionally recommends that when the eGFR is used in patients with extremes of body mass index for purposesof drug dosing, the eGFR should be multiplied by the estimated BMI.URINE AND STOOL Most recent to oldest [Reference Range]: 1 UA Turbidity [Clear] Slight *ABN* (04/02/18 8:55 AM) UA Color [Yellow] Yellow *NA* (04/02/18 8:55 AM) UA pH [5.0-8.0] 5.0 (04/02/18 8:55 AM) UA Spec Grav [<=1.030] 1.013 (04/02/18 8:55 AM) UA Glucose [Negative mg/dL] Negative mg/dL *NA* (04/02/18 8:55 AM) UA Blood [Negative] Negative (04/02/18 8:55 AM) UA Ketones [Negative mg/dL] Negative mg/dL *NA* (04/02/18 8:55 AM) UA Protein [Negative mg/dL] Negative mg/dL (04/02/18 8:55 AM) UA Urobilinogen [0.1-1.0 mg/dL] <=1.0 mg/dL *NA* (04/02/18 8:55 AM) UA Bili [Negative] Negative *NA* (04/02/18 8:55 AM) UA Leuk Est [Negative] Large *ABN* (04/02/18 8:55 AM) UA Nitrite [Negative] Negative (04/02/18 8:55 AM) UA WBC [0-5 /HPF] 127 /HPF *HI* (04/02/18 8:55 AM) UA RBC [0-2 /HPF] 3 /HPF *HI* (04/02/18 8:55 AM) UA Bacteria [None Seen /HPF] Occasional /HPF *NA* (04/02/18 8:55 AM) UA Sq Epi [Few /LPF] Few /LPF *NA* (04/02/18 8:55 AM) UA Mucus [None Seen /LPF] Few /LPF *NA* (04/02/18 8:55 AM) UA Friedens Yeast [None Seen /HPF] Few /HPF *ABN* (04/02/18 8:55 AM) HEMATOLOGY Most recent to oldest [Reference Range]: 1 WBC [3.7-10.4 K/CMM] 4.8 K/CMM (04/02/18 9:05 AM) RBC [4.20-5.40 M/CMM] 3.36 M/CMM *LOW* (04/02/18 9:05 AM) Hgb [12.0-16.0 g/dL] 10.4 g/dL *LOW* (04/02/18 9:05 AM) Hct [36.0-48.0 %] 31.3 % *LOW* (04/02/18 9:05 AM) MCV [80.0-98.0 fL] 93.0 fL (04/02/18 9:05 AM) MCH [27.0-31.0 pg] 31.0 pg (04/02/18 9:05 AM) MCHC [32.0-36.0 g/dL] 33.4 g/dL (04/02/18 9:05 AM) RDW [11.5-14.5 %] 15.5 % *HI* (04/02/18 9:05 AM) MPV [7.4-10.4 fL] 7.6 fL (04/02/18 9:05 AM) Platelet [133-450 K/CMM] 187 K/CMM (04/02/18 9:05 AM) Segs [45.0-75.0 %] 79.7 % *HI* (04/02/18 9:05 AM) Lymphocytes [20.0-40.0 %] 8.0 % *LOW* (04/02/18 9:05 AM) Monocytes [2.0-12.0 %] 9.4 % (04/02/18 9:05 AM) Eosinophils [0.0-4.0 %] 1.7 % (04/02/18 9:05 AM) Basophils [0.0-1.0 %] 1.2 % *HI* (04/02/18 9:05 AM) Segs-Bands # [1.5-8.1 K/CMM] 3.8 K/CMM (04/02/18 9:05 AM) Lymphocytes # [1.0-5.5 K/CMM] 0.4 K/CMM *LOW* (04/02/18 9:05 AM) Monocytes # [0.0-0.8 K/CMM] 0.4 K/CMM (04/02/18 9:05 AM) Eosinophils # [0.0-0.5 K/CMM] 0.1 K/CMM (04/02/18 9:05 AM) Basophils # [0.0-0.2 K/CMM] 0.1 K/CMM (04/02/18 9:05 AM) Immunizations No data available for this section Procedures No data available for this section Social History Social History Type Response Smoking Status Never smoker; Exposure to Tobacco Smoke None; Cigarette Smoking Last 365 Days No; Reg Smoking Cessation Counseling No entered on: 04/02/18 Assessment and Plan No data available for this section
--- OUTSIDE RECORDS SUMMARY | 2018-08-10 05:13 | XMS REPORT | Summary of Care ---
:1945 Author Organization [facility] [place] Address [address] [place] [address]- Encounter HQ Encntr_alias(FIN) [id number] Date(s): 03/02/18 - 03/02/18 [facility] [place] [address] [place] [phone] Discharge Disposition: Home or Self Care Attending Physician: Abe Benz MD Vital Signs No data available for this section Problem List No data available for this section Allergies, Adverse Reactions, Alerts No data available for this section Medications No data available for this section Results No data available for this section Immunizations No data available for this section Procedures No data available for this section Social History No data available for this section Assessment and Plan No data available for this section
--- OUTSIDE RECORDS SUMMARY | 2018-08-10 05:13 | XMS REPORT | Summary of Care ---
:1945 Author Organization [facility] [place] Address [address] [address]- Encounter HQ Encntr_alias(FIN) [id number] Date(s): 01/17/18 - 01/17/18 [facility] [place] [address] [address]- [phone] Encounter Diagnosis Pain in left shoulder (Final) - 01/23/18 Displaced fracture of lateral end of left clavicle, subsequent encounter for fracture with routine healing (Final) - Discharge Disposition: Home or Self Care Attending [...]
--- OUTSIDE RECORDS SUMMARY | 2018-08-10 05:13 | XMS REPORT | Summary of Care ---
:1945 Author Organization [facility] [place] Address [address] [place] [address]- Encounter HQ Encntr_alias(FIN) [id number] Date(s): 05/09/18 - 05/09/18 [facility] [place] [address] [phone] Discharge Disposition: Home or Self Care Attending [...]
[2018-08-10 06:06] LABS: Absolute Lymphocytes (CBC) 0.5 K/uL (0.7-4.9); Absolute Monocytes 0.7 K/uL (0.1-1.3); Absolute Neutrophil 2.8 K/uL (1.8-8.0); Basophils % 1.1 % (0-1.3); Eosinophils % 5.8 % (0-4.4); Hematocrit 33.8 % (36.0-45.0); Lymphocytes % 12.7 % (15.3-44.8); MPV 8.5 fL (7.6-11.3); Monocytes % 16.1 % (3.3-12.3); RBC Red Blood Cell Count 3.88 M/uL (3.86-4.86)
[2018-08-10 06:33] LABS: Protime INR 0.94
[2018-08-10 06:42] LABS: Albumin 3.4 g/dL (3.4-5.0); Bilirubin Direct 0.1 mg/dL (0-0.2); Bilirubin Total 0.3 mg/dL (0.2-1.0); Potassium 4.5 mmol/L (3.5-5.1); Protein, Total 6.4 g/dL (6.4-8.2)
[2018-08-10] MEDS ORDERED: NA CHLORIDE 0.9% 500 ML ONE (06:43)
--- NOTE | 2018-08-10 07:10 | EDPHYS ---
Physician Documentation [facility] Name: Tina Padron Age: 72 yrs Sex: Female : 1945 Arrival Date: 08/10/2018 Time: 05:24 Bed 8 Private MD: ED Physician Mateo Fox HPI: 08/10 05:35 This 72 yrs old Female presents to ER via EMS with complaints of Fall Injury. alec 05:35 Details of fall: The patient fell from an upright position, while walking. Onset: The alec symptoms/episode began/occurred just prior to arrival. Associated injuries: The patient sustained injury to the head. Severity of symptoms: At their worst the symptoms were mild, moderate, in the emergency department the symptoms are unchanged. The patient has experienced similar episodes in the past, a few times. Historical: - Allergies: 06:13 Compazine; lp1 - Home Meds: 06:13 aspirin 81 mg Oral TbEC 1 tab once daily [Active]; simvastatin 20 mg Oral tab nightly lp1 [Active]; levothyroxine 100 mcg tab 1 tab once daily [Active]; metoprolol tartrate 50 mg Oral tab 1 tab 2 times per day [Active]; losartan 50 mg oral tab 1 tab once daily [Active]; dicyclomine 20 mg Oral tab nightly [Active]; meclizine 25 mg Oral tab 1 tab 3 times per day [Active]; hydrochlorothiazide 12.5 mg Oral cap 1 cap once daily [Active]; potassium chloride 20 mEq Oral TbER 1 tab 2 times per day [Active]; omeprazole 40 mg Oral cpDR 1 cap once daily [Active]; furosemide 40 mg Oral tab 1 tab once daily [Active]; - PMHx: 06:13 "shattered shoulder"; Anxiety; chronic uti; Hyperlipidemia; Hypertension; lp1 Hypothyroidism; - PSHx: 06:13 None; lp1 - Immunization history: Last tetanus immunization: - up to date. - Social history:: Smoking status: Patient/guardian denies using tobacco. - Family history:: not pertinent. - Ebola Screening: : No symptoms or risks identified at this time. ROS: 05:36 Constitutional: Negative for fever, chills, and weight loss, Eyes: Negative for injury, alec pain, redness, and discharge, ENT: Negative for injury, pain, and discharge, Neck: Negative for injury, pain, and swelling, Cardiovascular: Negative for chest pain, palpitations, and edema, Respiratory: Negative for shortness of breath, cough, wheezing, and pleuritic chest pain, Abdomen/GI: Negative for abdominal pain, nausea, vomiting, diarrhea, and constipation, : Negative for injury, bleeding, discharge, and swelling, MS/Extremity: Negative for injury and deformity, Skin: Negative for injury, rash, and discoloration, Psych: Negative for depression, anxiety, suicide ideation, homicidal ideation, and hallucinations, Allergy/Immunology: Negative for hives, rash, and allergies, Endocrine: Negative for neck swelling, polydipsia, polyuria, polyphagia, and marked weight changes, Hematologic/Lymphatic: Negative for swollen nodes, abnormal bleeding, and unusual bruising. 05:36 Back: Positive for decreased range of motion, pain at rest, pain with movement. 05:36 Neuro: Positive for headache, of the forehead and left restorationist. Exam: 05:36 Constitutional: This is a well developed, well nourished patient who is awake, alert, alec and in no acute distress. Head/Face: Normocephalic, atraumatic. Eyes: Pupils equal round and reactive to light, extra-ocular motions intact. Lids and lashes normal. Conjunctiva and sclera are non-icteric and not injected. Cornea within normal limits. Periorbital areas with no swelling, redness, or edema. ENT: Nares patent. No nasal discharge, no septal abnormalities noted. Tympanic membranes are normal and external auditory canals are clear. Oropharynx with no redness, swelling, or masses, exudates, or evidence of obstruction, uvula midline. Mucous membranes moist. Chest/axilla: Normal chest wall appearance and motion. Nontender with no deformity. No lesions are appreciated. Cardiovascular: Regular rate and rhythm with a normal S1 and S2. No gallops, murmurs, or rubs. Normal PMI, no JVD. No pulse deficits. Respiratory: Lungs have equal breath sounds bilaterally, clear to auscultation and percussion. No rales, rhonchi or wheezes noted. No increased work of breathing, no retractions or nasal flaring. Abdomen/GI: Soft, non-tender, with normal bowel sounds. No distension or tympany. No guarding or rebound. No evidence of tenderness throughout. Skin: Warm, dry with normal turgor. Normal color with no rashes, no lesions, and no evidence of cellulitis. MS/ Extremity: Pulses equal, no cyanosis. Neurovascular intact. Full, normal range of motion. Neuro: Awake and alert, GCS 15, oriented to person, place, time, and situation. Cranial nerves II-XII grossly intact. Motor strength 5/5 in all extremities. Sensory grossly intact. Cerebellar exam normal. Normal gait. Psych: Awake, alert, with orientation to person, place and time. Behavior, mood, and affect are within normal limits. 05:36 Neck: External neck: is normal, C-spine: appears grossly normal, Thyroid: no acute changes, Trachea: is midline with no obvious abnormalities, ROM/movement: limited range of motion, Lymph nodes: no appreciated lymphadenopathy. Vital Signs: 05:45 lp1 06:00 BP 111 / 65; Pulse 54; Resp 16; Temp 98(O); Pulse Ox 100% on R/A; Weight 68.04 kg; lp1 Height 5 ft. 5 in. (165.10 cm); Pain 10/10; 06:27 BP 125 / 49; Pulse 55; Resp 18; Pulse Ox 100% on R/A; lp1 06:39 BP 122 / 65; Pulse 50; Resp 18; Pulse Ox 100% on R/A; lp1 07:46 BP 124 / 66; Pulse 51; Resp 16; Pulse Ox 100% on R/A; ph 06:00 Body Mass Index 24.96 (68.04 kg, 165.10 cm) lp1 05:45 Patient refusing to have vitals done lp1 Haley Coma Score: 05:15 Eye Response: spontaneous(4). Verbal Response: oriented(5). Motor Response: obeys lp1 commands(6). Total: 15. 07:46 Eye Response: spontaneous(4). Verbal Response: oriented(5). Motor Response: obeys ph commands(6). Total: 15. Trauma Score (Adult): 05:15 Eye Response: spontaneous(1); Verbal Response: oriented(1); Motor Response: obeys lp1 commands(2); Systolic BP: > 89 mm Hg(4); Respiratory Rate: 10 to 29 per min(4); [place] Score: 15; Trauma Score: 12 06:15 Eye Response: spontaneous(1); Verbal Response: oriented(1); Motor Response: obeys lp1 commands(2); Systolic BP: > 89 mm Hg(4); Respiratory Rate: 10 to 29 per min(4); Haley Score: 15; Trauma Score: 12 07:46 Eye Response: spontaneous(1); Verbal Response: oriented(1); Motor Response: obeys ph commands(2); Systolic BP: > 89 mm Hg(4); Respiratory Rate: 10 to 29 per min(4); [place] Score: 15; Trauma Score: 12 MDM: 05:28 Patient medically screened. [facility] 05:36 Data reviewed: vital signs, nurses notes, EMS record, lab test result(s), EKG, [facility] radiologic studies, CT scan. 08/10 05:35 Order name: Acetaminophen; Complete Time: 06:45 [facility] 08/10 05:35 Order name: Basic Metabolic Panel; Complete Time: 06:45 [facility] 08/10 05:35 Order name: CBC with Diff [facility] 08/10 05:35 Order name: ETOH Level; Complete Time: 06:45 [facility] 08/10 05:35 Order name: Hepatic Function; Complete Time: 06:45 [facility] 08/10 05:35 Order name: PT-INR; Complete Time: 06:45 [facility] 08/10 05:35 Order name: Ptt, Activated; Complete Time: 06:45 [facility] 08/10 05:35 Order name: Salicylate; Complete Time: 06:45 [facility] 08/10 05:35 Order name: Urine Drug Screen; Complete Time: 07:53 [facility] 08/10 05:35 Order name: CT Traumagram (Head C Spine CAP wo con) [facility] 08/10 06:12 Order name: CBC Smear Scan EDTN 08/10 07:02 Order name: Urine Dipstick--Ancillary (enter results); Complete Time: 07:53 08/10 05:35 Order name: EKG; Complete Time: 05:36 [facility] 08/10 05:35 Order name: EKG - Nurse/Tech; Complete Time: 06:21 [facility] 08/10 05:35 Order name: IV Saline Lock; Complete Time: 06:28 [facility] 08/10 05:35 Order name: Labs collected and sent; Complete Time: 06:28 [facility] 08/10 05:35 Order name: Urine Dipstick-Ancillary (obtain specimen); Complete Time: 07:21 [facility] 08/10 07:04 Order name: C-Collar; Complete Time: 07:21 [facility] Administered Medications: 06:39 Drug: NS 0.9% 500 ml Route: IV; Rate: bolus; Site: right forearm; lp1 08:30 Follow up: Response: No adverse reaction; IV Status: Completed infusion ph 07:21 Drug: morphine 2 mg Route: IVP; Site: left antecubital; lp1 08:30 Follow up: Response: No adverse reaction ph 07:22 Drug: Zofran 4 mg Route: IVP; Site: left antecubital; lp1 08:45 Follow up: Response: No adverse reaction ph 08:06 Drug: morphine 2 mg Route: IVP; Site: left antecubital; ph 08:30 Follow up: Response: No adverse reaction ph 08:35 Drug: Ativan 1 mg Route: IVP; Site: left antecubital; ph 08:45 Follow up: Response: No adverse reaction; Anxiety decreased ph 08:44 Drug: Ativan 1 mg Route: IVP; Site: left antecubital; ph 08:45 Follow up: Response: No adverse reaction; Anxiety decreased ph 08:45 Not Given (Pt transferred): Rocephin - (cefTRIAXone) 1 grams IVPB once over 30 mins; ph (mix in 50 mL NS) Disposition: 08/10/18 07:08 Transfer ordered to [facility]. Diagnosis are Fall due to bumping against object, Fracture of first cervical vertebra - anterior arch fracture, Urinary tract infection, site not specified, Bipolar disorder. - Reason for transfer: Higher level of care. - Accepting physician is to , trauma. - Condition is Fair. - Problem is new. - Symptoms have improved. Signatures: Dispatcher [employer] EDMS Mateo Fox MD MD cha Pena, Laura, RN RN lp1 Radha Mcfarland RN RN ph Corrections: (The following items were deleted from the chart) 07:10 07:08 08/10/2018 07:08 Transfer ordered to [facility]. [facility] Diagnosis is Fall due to bumping against object; Fracture of first cervical vertebra - anterior arch fracture. Reason for transfer: Higher level of care. Accepting physician is to , trauma. Condition is Fair. Problem is new. Symptoms have improved. alec 07:55 07:10 08/10/2018 07:08 Transfer ordered to [facility]. alec Diagnosis is Fall due to bumping against object; Fracture of first cervical vertebra - anterior arch fracture; Urinary tract infection, site not specified. Reason for transfer: Higher level of care. Accepting physician is to , trauma. Condition is Fair. Problem is new. Symptoms have improved. [facility] 08:45 07:55 08/10/2018 07:08 Transfer ordered to [facility]. Diagnosis is Fall due to bumping against object; Fracture of first cervical vertebra - anterior arch fracture; Urinary tract infection, site not specified; Bipolar disorder. Reason for transfer: Higher level of care. Accepting physician is to , trauma. Condition is Fair. Problem is new. Symptoms have improved. [facility]
--- NOTE | 2018-08-10 07:10 | ER ---
Nurse's Notes [facility] Name: Tina Padron Age: 72 yrs Sex: Female : 1945 Arrival Date: 08/10/2018 Time: 05:24 Bed 8 Private MD: Diagnosis: Fall due to bumping against object;Fracture of first cervical vertebra-anterior arch fracture;Urinary tract infection, site not specified;Bipolar disorder Presentation: 08/10 05:25 Presenting complaint: EMS states: Patient had fall this morning, states hitting head, lp1 unknown LOC; Small abrasion noted to left side of forehead; complaint of headache. Care prior to arrival: None. Mechanism of Injury: Fall from standing position. Trauma event details: Injury occurred in the [facility], Injury occurred: at home. Injury occurred: August 10, 2018 Injury occurred at: 04:45. 05:25 Acuity: TYLOR 3 lp1 05:25 Method Of Arrival: EMS: [facility] lp1 06:25 Transition of care: patient was not received from another setting of care. Onset of lp1 symptoms was August 10, 2018 at 04:45. Risk Assessment: Do you want to hurt yourself or someone else? Patient reports no desire to harm self or others. Initial Sepsis Screen: Does the patient meet any 2 criteria? No. Patient's initial sepsis screen is negative. Does the patient have a suspected source of infection? No. Patient's initial sepsis screen is negative. Trauma Activation: Alert Physician: ED Physician; Name: Dr. Fox; Notified At: 05:16; Arrived At: 05:16 Physician: General Surgeon; Name: N/A; Notified At: 05:16; Arrived At: Physician: Radiology; Name: Betty; Notified At: 05:16; Arrived At: 05:18 Physician: Respiratory; Name: Ricardo; Notified At: 05:16; Arrived At: 05:20 Physician: Lab; Name: N/A; Notified At: 05:16; Arrived At: Historical: - Allergies: 06:13 Compazine; lp1 - Home Meds: 06:13 aspirin 81 mg Oral TbEC 1 tab once daily [Active]; simvastatin 20 mg Oral tab nightly lp1 [Active]; levothyroxine 100 mcg tab 1 tab once daily [Active]; metoprolol tartrate 50 mg Oral tab 1 tab 2 times per day [Active]; losartan 50 mg oral tab 1 tab once daily [Active]; dicyclomine 20 mg Oral tab nightly [Active]; meclizine 25 mg Oral tab 1 tab 3 times per day [Active]; hydrochlorothiazide 12.5 mg Oral cap 1 cap once daily [Active]; potassium chloride 20 mEq Oral TbER 1 tab 2 times per day [Active]; omeprazole 40 mg Oral cpDR 1 cap once daily [Active]; furosemide 40 mg Oral tab 1 tab once daily [Active]; - PMHx: 06:13 "shattered shoulder"; Anxiety; chronic uti; Hyperlipidemia; Hypertension; lp1 Hypothyroidism; - PSHx: 06:13 None; lp1 - Immunization history: Last tetanus immunization: - up to date. - Social history:: Smoking status: Patient/guardian denies using tobacco. - Family history:: not pertinent. - Ebola Screening: : No symptoms or risks identified at this time. Screenin:23 Abuse screen: Denies threats or abuse. Denies injuries from another. Tuberculosis lp1 screening: No symptoms or risk factors identified. 06:26 Nutritional screening: No deficits noted. Fall Risk Total Wick Fall Scale indicates lp1 High Risk Score (45 or more points). Fall prevention measures have been instituted. Side Rails Up X 2 Family Present and informed to notify staff if the need to leave the bedside As available patient and family educated on Fall Prevention Program and Strategies. Primary Survey: 05:15 Reassessment Airway Airway Patent Breathing/Chest Respiratory pattern Regular lp1 Circulation Color [place] Temperature Warm Dry Disability Alert. 05:25 A: Airway: patent. Breathing/Chest: Respiratory pattern: regular, Respiratory effort: lp1 spontaneous, unlabored, Breath sounds: clear, bilaterally. Chest inspection: symmetrical rise and fall of the chest. Circulation: Skin color: pink, Skin temperature: warm, dry. Disability Alert. Secondary Survey: 06:22 HEENT: Face Other small abrasion to left side of forehead, not actively bleeding. lp1 Gastrointestinal: No deficits noted. : No deficits noted. Musculoskeletal: Circulation, motion, and sensation intact. Assessment: 05:15 Reassessment: Patient refusing to be assessed, states "My isn't here, I want to lp1 leave". 05:25 Reassessment: Patient attempting to call , States "he's not answering, I just lp1 want to leave". 05:37 Reassessment: Patient walking out of ED, here at this time, patient agrees to lp1 stay. 05:37 Neuro: Gait is steady. lp1 05:45 General: Appears in no apparent distress. Behavior is inappropriate for age. Pain: lp1 Complains of pain in head Pain currently is 10 out of 10 on a pain scale. Quality of pain is described as aching. Neuro: Level of Consciousness is awake, alert, obeys commands, Oriented to person, place, situation, Seed Tester are equal bilaterally Moves all extremities. Full function Speech is normal, Reports headache in entire. Cardiovascular: Patient's skin is warm and dry. Respiratory: Respiratory effort is even, unlabored. GI: No signs and/or symptoms were reported involving the gastrointestinal system. : No signs and/or symptoms were reported regarding the genitourinary system. EENT: No signs and/or symptoms were reported regarding the EENT system. Derm: small abrasion to left side of forehead. Musculoskeletal: Circulation, motion, and sensation intact. 07:15 Reassessment: Patient appears in no apparent distress at this time. Patient and/or ph family updated on plan of care and expected duration. Pain level reassessed. Patient is alert, oriented x 3, equal unlabored respirations, skin warm/dry/pink. Pt c/o pain and requesting medication, see MAR. 08:30 Reassessment: Patient appears in no apparent distress at this time. Patient and/or ph family updated on plan of care and expected duration. Pain level reassessed. Patient is alert, oriented x 3, equal unlabored respirations, skin warm/dry/pink. Report called to Evangelina MCGRATH at [facility], EMS at bedside for transfer. 08:40 Reassessment: Pt voicing anxiety about transfer, states, " I just want to go home, I ph don't want to be here and I don't want to go there." It was explained to the pt that due to the extent of her injury it is in her best interest to be transferred, after receiving medication for anxiety( see MAR) and speaking w/ pt agrees to go w/ EMS. Vital Signs: 05:45 lp1 06:00 BP 111 / 65; Pulse 54; Resp 16; Temp 98(O); Pulse Ox 100% on R/A; Weight 68.04 kg; lp1 Height 5 ft. 5 in. (165.10 cm); Pain 10/10; 06:27 BP 125 / 49; Pulse 55; Resp 18; Pulse Ox 100% on R/A; lp1 06:39 BP 122 / 65; Pulse 50; Resp 18; Pulse Ox 100% on R/A; lp1 07:46 BP 124 / 66; Pulse 51; Resp 16; Pulse Ox 100% on R/A; ph 06:00 Body Mass Index 24.96 (68.04 kg, 165.10 cm) lp1 05:45 Patient refusing to have vitals done lp1 [place] Coma Score: 05:15 Eye Response: spontaneous(4). Verbal Response: oriented(5). Motor Response: obeys lp1 commands(6). Total: 15. 07:46 Eye Response: spontaneous(4). Verbal Response: oriented(5). Motor Response: obeys ph commands(6). Total: 15. Trauma Score (Adult): 05:15 Eye Response: spontaneous(1); Verbal Response: oriented(1); Motor Response: obeys lp1 commands(2); Systolic BP: > 89 mm Hg(4); Respiratory Rate: 10 to 29 per min(4); [place] Score: 15; Trauma Score: 12 06:15 Eye Response: spontaneous(1); Verbal Response: oriented(1); Motor Response: obeys lp1 commands(2); Systolic BP: > 89 mm Hg(4); Respiratory Rate: 10 to 29 per min(4); [place] Score: 15; Trauma Score: 12 07:46 Eye Response: spontaneous(1); Verbal Response: oriented(1); Motor Response: obeys ph commands(2); Systolic BP: > 89 mm Hg(4); Respiratory Rate: 10 to 29 per min(4); [place] Score: 15; Trauma Score: 12 ED Course: 05:24 Patient arrived in ED. lp1 05:27 Triage completed. lp1 05:28 Mateo Fox MD is Attending Physician. alec 05:45 Arm band placed on left wrist. lp1 05:45 Patient has correct armband on for positive identification. Placed in gown. Pulse ox lp1 on. NIBP on. 05:45 Thermoregulation: warm blanket given to patient. lp1 05:55 Inserted saline lock: 24 gauge in right forearm, using aseptic technique. Blood lp1 collected. Patient maintains SpO2 saturation greater than 95% on room air. 06:02 Ashlie Montoya RN is Primary Nurse. lp1 06:21 EKG done, by ED staff, reviewed by Mateo Fox MD. cb2 06:38 CT Traumagram (Head C Spine CAP wo con) In Process Unspecified. EDMS 07:10 Rigid cervical collar applied. lp1 07:20 IV to right forearm infiltrated, DC'd at this time. Inserted saline lock: 22 gauge in lp1 left antecubital area, using aseptic technique. 08:40 No provider procedures requiring assistance completed. Patient transferred, IV remains ph in place. Administered Medications: 06:39 Drug: NS 0.9% 500 ml Route: IV; Rate: bolus; Site: right forearm; lp1 08:30 Follow up: Response: No adverse reaction; IV Status: Completed infusion ph 07:21 Drug: morphine 2 mg Route: IVP; Site: left antecubital; lp1 08:30 Follow up: Response: No adverse reaction ph 07:22 Drug: Zofran 4 mg Route: IVP; Site: left antecubital; lp1 08:45 Follow up: Response: No adverse reaction ph 08:06 Drug: morphine 2 mg Route: IVP; Site: left antecubital; ph 08:30 Follow up: Response: No adverse reaction ph 08:35 Drug: Ativan 1 mg Route: IVP; Site: left antecubital; ph 08:45 Follow up: Response: No adverse reaction; Anxiety decreased ph 08:44 Drug: Ativan 1 mg Route: IVP; Site: left antecubital; ph 08:45 Follow up: Response: No adverse reaction; Anxiety decreased ph 08:45 Not Given (Pt transferred): Rocephin - (cefTRIAXone) 1 grams IVPB once over 30 mins; ph (mix in 50 mL NS) Intake: 08:45 PO: 0ml; Total: 0ml. ph Output: 08:45 Urine: 0ml; Total: 0ml. ph Outcome: 07:08 ER care complete, transfer ordered by MD. michael 08:45 Patient left the ED. ph 08:45 Transferred by ground EMS [facility] to [facility], Transfer form ph completed. X-rays sent w/ patient. 08:45 Condition: stable 08:45 Instructed on the need for transfer. 08:45 Patient's length of stay was not longer than 2 hours. ph Signatures: Dispatcher [employer] EDMateo Morrison MD MD cha Pena, Laura, RN RN lp1 Radha Mcfarland RN RN Flaquito Parsons Corrections: (The following items were deleted from the chart) 06:28 05:15 BP 111 / 65; Pulse 54bpm; Resp 16bpm; Pulse Ox 100% RA; Temp 98F Oral; 68.04 kg; lp1 Height 5 ft. 5 in.; BMI: 24.9; Pain 10/10; lp1
[2018-08-10] MEDS ORDERED: MORPHINE 4 MG/ML SYR ONE ×2 (07:11→08:03)
[2018-08-10] MEDS ORDERED: ONDANSETRON 4 MG/2 ML VIAL ONE (07:11)
[2018-08-10 07:34] LABS: Urine Blood TRACE (NEG); Urine Glucose NEGATIVE (NEG); Urine Protein NEGATIVE (NEG); Urine pH 5.5 (5.0-7.0)
[2018-08-10 07:41] LABS: Barbiturates NEGATIVE (NEGATIVE); Benzodiazepines POSITIVE (NEGATIVE); Cocaine NEGATIVE (NEGATIVE); METHAMPHETAM NEGATIVE (NEGATIVE); Methadone NEGATIVE (NEGATIVE); Opiates POSITIVE (NEGATIVE); Phencyclidine NEGATIVE (NEGATIVE); THC Cannibis NEGATIVE (NEGATIVE)
[2018-08-10 08:02] LABS: Platelet Estimate ADEQ; Urine White Blood Cell Casts OK
[2018-08-10 08:03] LABS: Blood Morphology Comment NOT SEEN (NOT SEEN)
[2018-08-10] MEDS ORDERED: LORazepam 2 MG/ML VIAL ONE (08:39)
--- NOTE | 2018-08-10 09:07 | EKG ---
Test Date: 2018-08-10 Test Time: 06:04:07 Online Retailer: MICHAEL MEASUREMENT RESULTS: Intervals: Rate: 56 NM: 180 QRSD: 80 QT: 482 QTc: 465 [place]: P: 48 NM: 180 QRS: 9 T: 45 INTERPRETIVE STATEMENTS: Sinus bradycardia ST & T wave abnormality, consider anterior ischemia Abnormal ECG Compared to ECG 07/29/2018 23:55:19 Sinus rhythm no longer present ST (T wave) deviation still present Possible ischemia still present Electronically Signed On 08-10-18 09:06:39 CDT by Mustapha Blevins
--- NOTE | 2018-08-10 10:32 | RAD REPORT ---
EXAM DESCRIPTION: CT - Head C Spine Cap Wo Con - 08/10/2018 7:45 am CLINICAL HISTORY: Head and neck injury with chest and abdominal pain status post fall. Loss of consc iousness TECHNIQUE: Computed axial tomography of the head and cervical spine was obtained. Coronal and sagitt al reconstruction was performed Computed axial tomography of the chest, abdomen and pelvis was obtained. Contrast was not requested.P reliminary report was generated by virtual radiologic and reviewed prior to dictation All CT scans are performed using dose optimization technique as appropriate and may include automated exposure control or mA/KV adjustment according to patient size. COMPARISON: Prior CTs 2018 FINDINGS: A left frontal scalp hematoma is seen without an underlying skull fracture. An intracranial bleed is not seen. Ventricles are normal caliber. An extra-axial fluid collection is not noted. Fluid within the sinuses/mastoids is not seen A minimally displaced fracture involves the right anterior arch of C1. No dislocation is noted A mediastinal hematoma is not seen. A pleural effusion is not present. A pulmonary contusion is not n oted. No gross traumatic injury of the liver, spleen, pancreas, kidneys/bladder is noted. Renal cysts are present. Postsurgical changes involve the stomach. Evaluation of mediastinum, marjan, vessels and solid organs is limited second lack of IV contrast admin istration. IMPRESSION: 1. No acute intracranial abnormality is seen. 2. Minimally displaced fracture of the right anterior arch of C1. 3. No traumatic injury involving the chest/ abdomen/pelvis is seen
== END 2018-08-10 08:45 | disposition short-term general hospital (02) ==
LOC: ER 05:11
DX: S12.001A Unspecified nondisplaced fracture of first cervical vertebra, initial encounter for closed fracture (principal); N39.0 Urinary tract infection, site not specified; F31.9 Bipolar disorder, unspecified; W18.00XA Striking against unspecified object with subsequent fall, initial encounter; Y93.01 Activity, walking, marching and hiking; Y92.9 Unspecified place or not applicable; Z79.82 Long term (current) use of aspirin; Z88.8 Allergy status to other drugs, medicaments and biological substances; I10 Essential (primary) hypertension; F41.9 Anxiety disorder, unspecified; E78.5 Hyperlipidemia, unspecified; E03.9 Hypothyroidism, unspecified
CPT/HCPCS: 36415; 70450; 71250; 72125; 80048; 80076; 80307 ×8; 80320; 80329 ×2; 81003; 85025; 85610; 85730; 93005; 96361; 96374; 96375; 99285; J2405

== ENCOUNTER 2018-08-12 23:03 | Emergency (ER) | payer OTHER ==
--- NOTE | 2018-08-13 01:37 | EDPHYS ---
Physician Documentation [facility] Name: Tina Padron Age: 72 yrs Sex: Female : 1945 Arrival Date: 08/12/2018 Time: 23:04 Bed 7 Private MD: FRANCK CORTES ED Physician Raymond Nolan HPI: 08/13 01:29 This 72 yrs old Female presents to ER via EMS with complaints of Shoulder gs Pain. 01:29 Details of fall: The patient fell from an upright position. Onset: The symptoms/episode gs began/occurred acutely, just prior to arrival. Associated injuries: The patient sustained injury to the head, abrasion, neck injury, pain. Severity of symptoms: At their worst the symptoms were moderate, in the emergency department the symptoms are unchanged. The patient has experienced similar episodes in the past, a few times. The patient has been recently seen by a physician: leann comer. Historical: - Allergies: 08/12 23:17 Compazine; fc - Home Meds: 23:17 aspirin 81 mg Oral TbEC 1 tab once daily [Active]; dicyclomine 20 mg Oral tab nightly fc [Active]; levothyroxine 100 mcg tab 1 tab once daily [Active]; losartan 50 mg Oral tab 1 tab once daily [Active]; meclizine 25 mg Oral tab 1 tab tid prn [Active]; potassium chloride 20 mEq Oral TbER 1 tab once daily [Active]; simvastatin 20 mg Oral tab nightly [Active]; tramadol 50 mg Oral tab 1 tab q 8hrs prbn [Active]; acetaminophen-codeine 300-30 mg Oral tab 1 tab q8hrs prn [Active]; Bactrim DS 800-160 mg Oral tab 1 tab every 12 hours [Active]; - PMHx: 23:17 "shattered shoulder"; Anxiety; chronic uti; Hyperlipidemia; Hypertension; fc Hypothyroidism; - PSHx: 23:17 left shoulder surg; fc - Immunization history:: Last tetanus immunization: unknown. - Social history:: Smoking status: Patient/guardian denies using tobacco, Patient/guardian denies using alcohol, street drugs. - Ebola Screening: : Patient negative for fever greater than or equal to 101.5 degrees Fahrenheit, and additional compatible Ebola Virus Disease symptoms Patient denies exposure to infectious person Patient denies travel to an Ebola-affected area in the 21 days before illness onset. ROS: 08/13 01:29 All other systems are negative. gs Exam: 01:29 Cardiovascular: Regular rate and rhythm with a normal S1 and S2. No gallops, murmurs, gs or rubs. Normal PMI, no JVD. No pulse deficits. Respiratory: Lungs have equal breath sounds bilaterally, clear to auscultation and percussion. No rales, rhonchi or wheezes noted. No increased work of breathing, no retractions or nasal flaring. Abdomen/GI: Soft, non-tender, with normal bowel sounds. No distension or tympany. No guarding or rebound. No evidence of tenderness throughout. Back: No spinal tenderness. No costovertebral tenderness. Full range of motion. 01:29 Neuro: Awake and alert, GCS 15, oriented to person, place, time, and situation. Cranial nerves II-XII grossly intact. Motor strength 5/5 in all extremities. Sensory grossly intact. Cerebellar exam normal. Normal gait. 01:29 Constitutional: The patient appears alert, awake. 01:29 Head/face: Noted is abrasion(s), that are mild, of the right side of forehead. 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 01:29 Musculoskeletal/extremity: Extremities: noted in the pelvis: pain, Circulation is intact in all extremities. 01:29 Skin: Appearance: Color: normal in color, Temperature: warm. Vital Signs: 08/12 23:05 BP 104 / 54; Pulse 52; Resp 18; Temp 97.2(TE); Pulse Ox 100% on R/A; Weight 68.95 kg fc (R); Height 5 ft. 5 in. (165.10 cm) (R); Pain 8/10; 08/13 00:40 BP 106 / 61; Pulse 50; Resp 19 S; Pulse Ox 99% on R/A; jd3 01:24 BP 109 / 57; Pulse 79; Resp 18 S; Pulse Ox 98% on R/A; jd3 08/12 23:05 Body Mass Index 25.29 (68.95 kg, 165.10 cm) MDM: 08/12 23:17 Patient medically screened. 08/13 01:29 Differential diagnosis: closed head injury, contusion, fracture, sprain. Data reviewed: gs vital signs, nurses notes. Counseling: I had a detailed discussion with the patient and/or guardian regarding: the historical points, exam findings, and any diagnostic results supporting the discharge/admit diagnosis, radiology results, the need to transfer to another facility. Response to treatment: the patient's symptoms have mildly improved after treatment, and as a result, I will transfer. 08/12 23:17 Order name: CT Head C Spine 08/12 23:17 Order name: Pelvis XRAY gs Administered Medications: No medications were administered Disposition: 08/13/18 01:37 Transfer ordered to [facility]. Diagnosis is Other displaced fracture of first cervical vertebra. - Reason for transfer: Higher level of care. - Accepting physician is radha. - Condition is Stable. - Problem is new. - Symptoms have improved. Critical care time excluding procedures: :29 Critical care time: Bedside Care: 10 minutes, Consultation: 10 minutes, Family gs Intervention: 10 minutes. Total time: 30 minutes Signatures: Dispatcher [employer] EDAK Rema Odonnell RN RN fc Raymond Nolan MD MD gs Davies, Jonathon, RN RN jd3 Corrections: (The following items were deleted from the chart) 01:56 01:37 08/13/2018 01:37 Transfer ordered to [facility]. jd3 Diagnosis is Other displaced fracture of first cervical vertebra. Reason for transfer: Higher level of care. Accepting physician is radha. Condition is Stable. Problem is new. Symptoms have improved.
--- NOTE | 2018-08-13 01:37 | ER ---
Nurse's Notes [facility] Name: Tina Padron Age: 72 yrs Sex: Female : 1945 Arrival Date: 08/12/2018 Time: 23:04 Bed 7 Private MD: FRANCK ALFORD Diagnosis: Other displaced fracture of first cervical vertebra Presentation: 08/12 23:05 Presenting complaint: Patient states: that she was going to the bathroom and fell. fc Unknown cause. Denies any dizziness. Has small cut to right forehead. Also complaining of right shoulder pain. Pt was just discharged yesterday post fall last week which she is still currently wearing a C-Collar for. Transition of care: patient was not received from another setting of care. Onset of symptoms was August 12, 2018 at 22:30. Risk Assessment: Do you want to hurt yourself or someone else? Patient reports no desire to harm self or others. Initial Sepsis Screen: Does the patient meet any 2 criteria? No. Patient's initial sepsis screen is negative. Does the patient have a suspected source of infection? No. Patient's initial sepsis screen is negative. Care prior to arrival: Bleeding of injury controlled. Cervical collar in place. 23:05 Method Of Arrival: EMS: [facility] 23:05 Acuity: TYLOR 3 fc Historical: - Allergies: 23:17 Compazine; fc - Home Meds: 23:17 aspirin 81 mg Oral TbEC 1 tab once daily [Active]; dicyclomine 20 mg Oral tab nightly fc [Active]; levothyroxine 100 mcg tab 1 tab once daily [Active]; losartan 50 mg Oral tab 1 tab once daily [Active]; meclizine 25 mg Oral tab 1 tab tid prn [Active]; potassium chloride 20 mEq Oral TbER 1 tab once daily [Active]; simvastatin 20 mg Oral tab nightly [Active]; tramadol 50 mg Oral tab 1 tab q 8hrs prbn [Active]; acetaminophen-codeine 300-30 mg Oral tab 1 tab q8hrs prn [Active]; Bactrim DS 800-160 mg Oral tab 1 tab every 12 hours [Active]; - PMHx: 23:17 "shattered shoulder"; Anxiety; chronic uti; Hyperlipidemia; Hypertension; fc Hypothyroidism; - PSHx: 23:17 left shoulder surg; fc - Immunization history:: Last tetanus immunization: unknown. - Social history:: Smoking status: Patient/guardian denies using tobacco, Patient/guardian denies using alcohol, street drugs. - Ebola Screening: : Patient negative for fever greater than or equal to 101.5 degrees Fahrenheit, and additional compatible Ebola Virus Disease symptoms Patient denies exposure to infectious person Patient denies travel to an Ebola-affected area in the 21 days before illness onset. Screenin:13 Abuse screen: Denies threats or abuse. Nutritional screening: No deficits noted. fc Tuberculosis screening: No symptoms or risk factors identified. Fall Risk Fall in past 12 months (25 points). Secondary diagnosis (15 points) impaired mobility, No IV (0 pts). Ambulatory Aid- None/Bed Rest/Nurse Assist (0 pts). Gait- Weak (10 pts.). Mental Status- Overestimates/Forgets Limitations (15 pts.). Total Wick Fall Scale indicates High Risk Score (45 or more points). Fall prevention measures have been instituted. Side Rails Up X 2 Placed Close to Nursing Station Frequent Obs/Assessments Occuring Family Present and informed to notify staff if the need to leave the bedside As available patient and family educated on Fall Prevention Program and Strategies. Assessment: 23:29 General: Appears in no apparent distress. uncomfortable, Behavior is anxious. Pain: jd3 Complains of pain in forehead, pelvis and anterior aspect of left shoulder Quality of pain is described as aching, tender. Neuro: Level of Consciousness is awake, alert, Oriented to person, place. Cardiovascular: Denies chest pain, Capillary refill < 3 seconds Patient's skin is warm and dry. Respiratory: Airway is patent Respiratory effort is even, unlabored, Respiratory pattern is regular, symmetrical, Denies shortness of breath. GI: No signs and/or symptoms were reported involving the gastrointestinal system. : No signs and/or symptoms were reported regarding the genitourinary system. EENT: No signs and/or symptoms were reported regarding the EENT system. Derm: Skin is intact, Skin is dry, Skin is normal, Skin temperature is warm. Musculoskeletal: Circulation, motion, and sensation intact. Range of motion: limited in left shoulder and right hip. 08/13 00:40 Reassessment: Patient appears in no apparent distress at this time. Patient and/or jd3 family updated on plan of care and expected duration. Pain level reassessed. Patient is alert, oriented x 3, equal unlabored respirations, skin warm/dry/pink. 01:04 Reassessment: Patient appears in no apparent distress at this time. No changes from jd3 previously documented assessment. Patient and/or family updated on plan of care and expected duration. Pain level reassessed. Patient is alert, oriented x 3, equal unlabored respirations, skin warm/dry/pink. provider at bedside. 01:33 Reassessment: Pt requesting pain medication and wanting to take her own Percocet. Discussed with Dr Nolan who is ok with her taking the one tablet but no others. Assisted pt with getting the one tablet out and taking it. 01:35 Reassessment: Patient appears in no apparent distress at this time. Patient and/or jd3 family updated on plan of care and expected duration. Pain level reassessed. Patient is alert, oriented x 3, equal unlabored respirations, skin warm/dry/pink. report given to Vilma MCGRATH for a transfer. Vital Signs: 08/12 23:05 BP 104 / 54; Pulse 52; Resp 18; Temp 97.2(TE); Pulse Ox 100% on R/A; Weight 68.95 kg fc (R); Height 5 ft. 5 in. (165.10 cm) (R); Pain 8/10; 08/13 00:40 BP 106 / 61; Pulse 50; Resp 19 S; Pulse Ox 99% on R/A; jd3 01:24 BP 109 / 57; Pulse 79; Resp 18 S; Pulse Ox 98% on R/A; jd3 08/12 23:05 Body Mass Index 25.29 (68.95 kg, 165.10 cm) ED Course: 08/12 23:04 Patient arrived in ED. am2 23:04 Nadja Alford MD is Private Physician. am2 23:05 Arm band placed on Patient placed in an exam room, on a stretcher. 23:06 Raymond Nolan MD is Attending Physician. gs 23:10 FRANCK ALFORD is Private Physician. am2 23:12 Triage completed. 23:13 Patient has correct armband on for positive identification. Bed in low position. Call fc light in reach. Side rails up X2. Pulse ox on. NIBP on. 23:16 Willi Doshi, RN is Primary Nurse. jd3 23:35 Warm blanket given. Assisted with bedpan. jd3 23:[address] via stretcher. kw1 23:59 Patient moved to radiology via stretcher. kw1 08/13 00:02 CT Head C Spine In Process Unspecified. EDMS 00:03 CT completed. Patient tolerated procedure well. Patient moved back from radiology. kw1 00:04 X-ray completed. Patient tolerated procedure well. Patient moved back from radiology. mh1 00:06 Pelvis XRAY In Process Unspecified. EDMS 01:54 No provider procedures requiring assistance completed. Patient transferred, IV remains jd3 in place. Administered Medications: No medications were administered Outcome: 01:37 ER care complete, transfer ordered by . 01:54 Transferred by ground EMS to [facility], Transfer form completed. X-rays sent jd3 w/ patient. Note: report given to EMS. 01:54 Condition: stable 01:56 Patient left the ED. jd3 Signatures: Dispatcher [employer] EDNM Vanessa Moreno 1 Rema Odonnell, RN RN Elvira Dawn am2 Raymond Nolan MD MD Willi Doshi, ALCIDES RN Demetria Sousa kw1
--- NOTE | 2018-08-13 10:47 | RAD REPORT ---
EXAM DESCRIPTION: CT - CTHCSPWOC - 08/13/2018 6:25 am CLINICAL HISTORY: Trauma, head and neck injury. PAIN COMPARISON: Head C Spine Mpr Wo Con dated 04/22/2018; Head C Spine Mpr Wo Con dated 03/26/2018; Head C Spine Mpr Wo Con dated 03/25/2018; Head C Spine Mpr Wo Con dated 01/16/2018; Head C Spine Cap Wo Con d ated 08/10/2018 TECHNIQUE: Axial 5 mm thick images of the head were obtained. Axial 2 mm thick images of the cervical spine were obtained with sagittal and coronal reconstruction images generated and reviewed. All CT scans are performed using dose optimization technique as appropriate and may include automated exposure control or mA/KV adjustment according to patient size. FINDINGS: CT HEAD WITHOUT CONTRAST: No acute hemorrhage, hydrocephalus or extra-axial collection is identified.No areas of brain edema or midline shift. The paranasal sinuses and mastoids are clear.The calvarium is intact. Small left-sided scalp hematoma . CT CERVICAL SPINE WITHOUT CONTRAST: Again noted is a fracture through the anterior arch of C1 on the right with involvement of the right lateral mass. There is 1.6 mm of anterior displacement on today's study, slightly increased from 0.7 mm previously noted.Moderate multilevel spondylosis is present of the upper cervical levels.Mild soft tissue swelling anterior superior aspect of the cervical spine. IMPRESSION: No acute intracranial finding. Slight increase displacement of the right anterior C1 arch/lateral mass fracture since comparative st ud.
--- NOTE | 2018-08-13 10:52 | RAD REPORT ---
EXAM DESCRIPTION: RAD - Pelvis - 08/13/2018 12:05 am CLINICAL HISTORY: PAIN COMPARISON: Pelvis dated 02/20/2018; Pelvis dated 01/16/2018 FINDINGS: Osteopenia is seen. Proximal right femur orthopedic hardware is in place. No acute fractur e or dislocation is seen. If patient pain persists or progresses or if the patient has difficulty wit h weight-bearing, MR followup may be of value.
== END 2018-08-13 01:56 | disposition short-term general hospital (02) ==
LOC: ER 23:03
DX: S12.000A Unspecified displaced fracture of first cervical vertebra, initial encounter for closed fracture (principal); W19.XXXA Unspecified fall, initial encounter; Y93.9 Activity, unspecified; Y92.9 Unspecified place or not applicable; Z79.82 Long term (current) use of aspirin; Z88.8 Allergy status to other drugs, medicaments and biological substances; I10 Essential (primary) hypertension; E78.5 Hyperlipidemia, unspecified; E03.9 Hypothyroidism, unspecified; F41.9 Anxiety disorder, unspecified
CPT/HCPCS: 70450; 72125; 72170; 99285

== ENCOUNTER 2018-10-18 02:29 | Emergency (ER) | payer OTHER ==
--- OUTSIDE RECORDS SUMMARY | 2018-10-18 02:32 | XMS REPORT | Summary of Care ---
:1945 Author Name Endy Shah M.A. Address Unavailable Unavailable , Care Team Providers Name Role Phone HARVEY Garcia, AMELIE Unavailable Unavailable RENZO OWENS, HANNAH Patel Unavailable Unavailable FRANCK CORTES PA-C Unavailable Unavailable Unavailable Unavailable Unavailable Functional Status Name Dates Details Functional status health issues are not documented Status: Name Dates Details Cognitive status health issues are not documented Status: Problems Name Dates Details Neck pain (723.1, M54.2) Status: Active Other closed nondisplaced fracture of first cervical vertebra with routine healing, subsequent encounter (V54.17, S12.091D) Status: Active Screening for endocrine, nutritional, metabolic and immunity disorder (V77.99, Z13.29) Status: Active Medications Name Dates Details Losartan Potassium 50 MG Oral Tablet Refills: 0 Active HydroCHLOROthiazide 12.5 MG Oral Tablet Refills: 0 Active Metoprolol Tartrate 50 MG Oral Tablet Refills: 0 Active Simvastatin 20 MG Oral Tablet Refills: 0 Active Potassium TABS Refills: 0 Active Potassimin TABS Refills: 0 Active Xanax 2 MG Oral Tablet Refills: 0 Active Nitrofurantoin 100 MG CAPS Refills: 0 Active Nitrofurantoin Macrocrystal 100 MG Oral Capsule Refills: 0 Active Fluconazole 200 MG Oral Tablet Refills: 0 Active Dicyclomine HCl - 10 MG Oral Capsule Refills: 0 Active Percocet 10-325 MG Oral Tablet Refills: 0 Active Allergies and Adverse Reactions Name Dates Details Compazine (Allergy) Status: Active Past Medical History Name Dates Details 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, 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 History of hypercholesterolemia (V12.29, Z86.39) Status: Resolved History of hypertension (V12.59, Z86.79) Status: Resolved History of thyroid disease (V12.29, Z86.39) Status: Resolved Procedures Procedure Dates Details [Q] C TELOPEPTIDE (CTX) Date: 29-Aug-2018 [Q] PROCOLLAGEN TYPE I INTACT N TERMINAL PROPEPTIDE Date: 29-Aug-2018 [Q] VITAMIN D, 25-HYDROXY, LC/MS/MS Date: 29-Aug-2018 [U] XRAY SPINE CERVICAL 2 OR 3 VWS [id number] Date: 27-Sep-2018 CT Spine cervical wo contrast [id number] Date: 29-Sep-2018 History of Shoulder Surgery Completed History of Knee replacement Completed Immunization Name Dates Details Immunizations not documented Family History Name Dates Details Family history of kidney disease (V18.69, Z84.1) Status: Active Family history of stroke (V17.1, Z82.3) Status: Active Family history of diabetes mellitus (V18.0, Z83.3) Status: Active Family history of heart attack (V17.3, Z82.49) Status: Active Family history of hypertension (V17.49, Z82.49) Status: Active Name Dates Details Family history of stroke (V17.1, Z82.3) Status: Active Family history of diabetes mellitus (V18.0, Z83.3) Status: Active Family history of heart attack (V17.3, Z82.49) Status: Active Family history of hypertension (V17.49, Z82.49) Status: Active Social History Name Dates Details - Status: Name Dates Details Never smoker Vital Signs Date Test Result Details No Known Vitals to report Results Date Description Value Details [id number] [QLH] VITAMIN D, 25-HYDROXY, LC/MS/MS Vitamin D, 25-OH, Total 36.6 ng/ml Range: 30.0-100.0 Comments: Reference range is based on recommendations in the [employer] Clinical Practice Guideline (J Clin Endocrinol Fkkps0025;96: 1615-2450) [id number] [H] Procollagen Type I Intact N Terminal Propeptide Procollagen Type I Intact N 71 {UG/L} Comments: Premenopausal 19 - 83 Postmenopausal 16 - 96Performed At: [facility] [address] [id number] Zambrano MD Ph: [phone] Terminal Pro [id number] [H] Misc [facility] Misc [facility] COMMENT Comments: Test Ordered: [id number] C-Telopeptide, SerumC- Telopeptide, Serum 972 pg/mL ESReference Range: Premenopausal Women: 34 - 635Postmenopausal Women: 34 - 1037Performed At: [facility] [id number] [place], [place] [id number] Fink MD Ph: [phone] At: [facility] [id number] [place], [place] [id number] Samuel H MD Ph:[phone] [id number] [QLH] ALKALINE PHOSPHATASE, BONE SPECIFIC Alkaline Phosphatase Bone 27.5 {UG/L} Comments: Premenopausal Women: 6.0 - 22.7 Postmenopausal Women: 8.1 - 31.6Performed At: [facility] [id number] [place], [place] [id number] Fink MD Ph:[phone] Plan of Care Name Dates Details Planned Observations CT Spine cervical wo contrast [id number] On: 20-Oct-2018 Intent Planned Goals not documented Interventions Provided Labs/Procedures/Imaging[U] XRAY SPINE CERVICAL 2 OR 3 VWS [id number]; To Be Done: 29 Sep 2018 Instructions Name Dates Details Instructions not documented Encounters Appointment; AMELIE GABRIEL M.D. On: 23-Aug-2018 7:30 Encounter Diagnosis: Problem not documented Appointment; SIMONE STERLING, PAsterAAster On: 29-Aug-2018 8:30 Encounter Diagnosis: Problem not documented Appointment; SIMONE STERLING, PAsterAAster On: 12-Sep-2018 11:30 Encounter Diagnosis: Problem not documented Appointment; AMELIE GABRIEL M.D. On: 29-Sep-2018 8:45 Encounter Diagnosis: Problem not documented
--- OUTSIDE RECORDS SUMMARY | 2018-10-18 02:32 | XMS REPORT | Continuity of Care Document ---
:1945 Author Organization Interface Problems Problem Status Onset Classification Date Comments Source Date Reported Acute renal Active 12/09/19 Finding 12/14/[address] [facility] [place] Acute kidney Active 12/09/19 Finding 12/14/[address] [facility] [facility] [place] Anxiety disorder Active 09/09/20 Finding 12/14/[address] [facility] [place] Failure of Active 09/09/20 Finding 12/14/[address] [facility] [facility] treatment [place] Obesity Active 09/09/20 Finding 12/14/[address] [facility] [facility] [place] Left flank pain Active 09/05/20 Finding 12/14/[address] [facility] [facility] [place] UTI Active 06/29/20 Finding 12/14/[address] [facility] [facility] [place] Hypothyroidism Active 06/29/20 Finding 12/14/[address] [facility] 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 lymphoma [facility] [place] DJD Active 06/29/20 Finding 12/14/[address] [facility] [facility] [place] Hypertension Active 06/29/20 Finding 12/14/[address] [facility] [facility] [place] Dizziness Active Finding 12/14/[address] [facility] [place] Chronic pain Active Finding 12/14/[address] [facility] disorder [facility] [place] Fall Active Finding 12/14/[address] [facility] [place] Breast mass Active Finding 12/14/[address] [facility] [place] Dehydration Active Finding 12/14/[address] [facility] [place] Hypomagnesemia Active Finding 12/14/[address] [facility] [place] Mass of breast Active Finding 12/14/[address] [facility] [place] Chronic pain Active Finding 12/14/[address] [facility] syndrome [facility] [place] Medications Medication Details Route Status Patient Ordering Order Source Instructions Provider Date Dicyclomine Hcl TWICE Active [facility] [place] Nitrofuran Macro AT BEDTIME Active [facility] [place] Meclizine Hcl DAILY Active [facility] [place] Triamcinolone TWICE Active [facility]rm DAILY 017 [facility] [place] Sulfamethoxazole TWICE Active [facility] /Trimethoprim DAILY 017 [facility] [place] Triamcinolone TWICE Active [facility] DAILY 017 [facility] [place] Ursodiol TWICE Active [facility] [place] Aspirin DAILY Active [facility] [place] Levothyroxine [address] [facility] [facility] [place] Metoprolol/[place] TWICE Active [facility] chlorothiazide DAILY 016 [facility] [place] Multivitamin DAILY Active [facility] [place] Omeprazole TWICE Active [facility] Magnesium DAILY 016 [facility] [place] Oxycodone TWICE Active [facility] Hcl/Acetaminophe DAILY 016 [facility] [place] Alprazolam AT BEDTIME Active [facility] [place] Allergies, Adverse Reactions, Alerts Substance Category Reaction Severity Reaction Status Date Comments Source type Reported prochlorperaz PYSCHOSIS Moderate Allergy to Active [facility] St[facility] Substance [facility] [place] Immunizations Immunization Date Given Site Status Last Comments Source Updated Influenza Adult 09/05/[address] [facility] [address] [facility] [place] Results Order Name Results Value Reference Date Interpretation Comments Source Range Laboratory Magnesium 1.4 mg/dL 1.8 - 2.5 12/[address] [facility] [address] Studies Level /2018 [facility] [place] Laboratory Sodium Level 141 mEq/L 135 - 145 12/[address] [facility] [address] Studies /2018 [facility] [place] Laboratory Potassium 3.8 mEq/L 3.6 - 5.0 12/[address] [facility] [address] Studies Level /2018 [facility] [place] Laboratory Phosphorus 3.3 mg/dL 2.5 - 4.3 12/14 [facility]. Studies Level /2017 [facility] [place] Laboratory Glucose Level 120 mg/dL 65 - 120 12/14 [facility]. Studies /2017 [facility] [place] Laboratory Estimat null 90 12/14 [facility]. Studies Glomerular /2017 [facility] Filtration [place] Rate Laboratory Creatinine 0.60 mg/dL 0.44 - 12/14 [facility]. Studies 1.00 /2017 [facility] [place] Laboratory Chloride 107 mEq/L 101 - 111 12/14 [facility]. Studies Level /2017 [facility] [place] Laboratory Carbon 27 mEq/L 21 - 31 12/14 [facility] Studies Dioxide Level /2017 [facility] [place] Laboratory Calcium Level 8.4 mg/dL 8.5 - 10.5 12/14 [facility]. Studies /2017 [facility] [place] Laboratory Blood Urea 7 mg/dL 6 - 20 12/14 [facility] Studies Nitrogen /2017 [facility] [place] Laboratory Albumin 2.4 g/dL 3.2 - 5.5 12/14 [facility]. Studies /2017 [facility] [place] Laboratory White Blood 6.0 K/uL 4.3 - 10.9 12/12 [facility] Studies Count /2017 [facility] [place] Laboratory Red Cell 14.9 % 12.1 - 12/12 [facility] Studies Distribution 15.2 [facility] - Width [place] Laboratory Red Blood 2.97 M/uL 3.86 - 02 [facility] Studies Count 4.86 /2017 [facility] [place] Laboratory Platelet 148 K/uL 152 - 406 12/12 [facility] Studies Count /2018 [facility] [place] Laboratory Neutrophils % 82.7 % 41.7 - 02 [facility]. Studies 73.7 /2017 [facility] [place] Laboratory Monocytes % 12.1 % 3.3 - 12.3 12/12 [facility]. Studies /2018 [facility] [place] Laboratory Mean Platelet 8.2 fL 7.6 - 11.3 12/12 [facility] Studies Volume /2018 [facility] [place] Laboratory Mean 92.4 fL 80 - 100 12/12 [facility]. Studies Corpuscular /2018 [facility] Volume [place] Laboratory Mean 33.7 g/dL 32.0 - 12/[address] [facility] [address] Studies Corpuscular 36.0 /2017 [facility] - Hemoglobin [place] Concent Laboratory Mean 31.1 pg 27.0 - 12/[address] [facility] [address] Studies Corpuscular 35.0 /2017 [facility] Hemoglobin [place] Laboratory Lymphocytes % 3.9 % 15.3 - [address] [facility] [address] Studies 44.8 /2017 [facility] [place] Laboratory Hemoglobin 9.2 g/dL 12.0 - [address] [facility] [address] Studies 15.0 /2017 [facility] [place] Laboratory Hematocrit 27.4 % 36.0 - [address] [facility] [address] Studies 45.0 /2017 [facility] [place] Laboratory Eosinophils % 1.1 % 0 - 4.4 12/[address] [facility] [address] Studies /2017 [facility] [place] Laboratory Basophils % 0.2 % 0 - 1.3 12/[address] [facility] [address] Studies /2017 [facility] [place] Laboratory Absolute 5.0 K/uL 1.8 - 8.0 12/[address] [facility] [address] Studies Neutrophil /2017 [facility] [place] Laboratory Absolute 0.7 K/uL 0.1 - 1.3 12/12 [facility]. Studies Monocytes /2017 [facility] - (CBC) [place] Laboratory Absolute 0.2 K/uL 0.7 - 4.9 12/12 [facility]. Studies Lymphocytes [facility] - (CBC) [place] Laboratory Absolute 0.1 K/uL 0 - 0.5 12/12 [facility]. Studies Eosinophils [facility] - (CBC) [place] Laboratory Absolute 0.0 K/uL 0 - 0.5 12/12 [facility]. Studies Basophils [facility] - (CBC) [place] Laboratory Total 0.7 mg/dL 0.3 - 1.2 12/11 [facility]. Studies Bilirubin [facility] [place] Laboratory Serum Total 4.8 g/dL 6.0 - 8.3 12/[address] [facility] [address] Studies Protein [facility] [place] Laboratory Globulin 2.2 g/dL 2.3 - 3.5 12/11 [facility]. Studies [facility] [place] Laboratory Aspartate 23 IU/L 10 - 42 12/11 [facility]. Studies Amino Transf [facility] - (AST/SGOT) [place] Laboratory Alkaline 77 IU/L 42 - 121 12/[address] Studies Phosphatase /2017 [facility] [place] Laboratory Albumin/Globu 1.2 1.1 - 1.8 12/[address] [facility] [address] Studies north Ratio /2017 [facility] [place] Laboratory Alanine 17 IU/L 10 - 60 12/[address] [facility] [address] Studies Aminotransfer /2017 [facility] ase [place] (ALT/SGPT) Laboratory Blood Blood 12/10 St. Studies Morphology Morphology /2017 [facility] - Comment Comment [place] Laboratory Creatine 74 IU/L 22 - 269 12/09 St[facility] Studies Kinase /2017 [facility] [place] Laboratory Urine Yeast Urine Yeast 12/08 St. Studies /2018 [facility] [place] Laboratory Urine WBC null 12/08 St[facility] Studies /2017 [facility] [place] Laboratory Urine null 12/[address] [facility] [address] Studies Urothelial /2017 [facility] - Cells [place] Laboratory Urine null 12/[address] [facility] [address] Studies Squamous /2017 [facility] Epithelial [place] Cells Laboratory Urine RBC Urine RBC 12/08 St[facility] Studies /2017 [facility] [place] Laboratory Urine Culture Urine 12/08 St[facility] Studies Reflexed Culture /2017 [facility] Reflexed [place] Laboratory Urine Urine 12/08 [facility]. Studies Bacteria Bacteria /2017 [facility] [place] Laboratory Urine pH 6.0 12/08 St. Studies /2017 [facility] [place] Laboratory Urine 0.2 mg/dL 12/[address] [facility] [address] Studies Urobilinogen /2017 [facility] [place] Laboratory Urine Total Urine Total 12/08 St[facility] Studies Protein Protein /2017 [facility] [place] Laboratory Urine 1.015 12/[address] [facility] [address] Studies Specific /2017 [facility] [place] Laboratory Urine Nitrite Urine 12/[address] [facility] [address] Studies Nitrite /2017 [facility] [place] Laboratory Urine Urine 12/[address] [facility] [address] Studies Leukocyte Leukocyte /2017 [facility] - Esterase Esterase [place] Laboratory Urine Ketones Urine 12/08 St[address] Studies Ketones /2017 [facility] [place] Laboratory Urine Glucose Urine 12/[address] [facility] [address] Studies Glucose /2017 [facility] [place] Laboratory Urine Color Urine Color 12/[address] [facility] [address] Studies /2018 [facility] [place] Laboratory Urine Blood Urine Blood 12/08 St[facility] Studies /2018 [facility] [place] Laboratory Urine Urine 12/[address] [facility] [address] Studies Bilirubin Bilirubin /2017 [facility] [place] Laboratory Urine Urine 12/08 [facility] Studies Appearance Appearance [facility] [place] Microbiolog Enterococcus Enterococcu 12/06 [facility]. y Studies Faecium s Faecium [facility] [place] Laboratory Urine Urine 12/03 [facility] Studies Phencyclidine Phencyclidi [facility] - Screen ne Screen [place] Laboratory Urine Urine 12/03 [facility] Studies Barbiturates Barbiturate /2017 [facility] - Screen s Screen [place] Laboratory Ur Ur 12/03 [facility] Studies Tetrahydrocan Tetrahydroc [facility] - nabinol (THC) annabinol [place] Scrn (THC) Scrn Laboratory Oxycodone Oxycodone 12/03 [facility] Studies Screen Screen [facility] [place] Laboratory Opiates Opiates 12/03 [facility] Studies Screen Screen [facility] [place] Laboratory MDMA MDMA 12/03 [facility] Studies (Ecstasy) (Ecstasy) [facility] - Screen Screen [place] Laboratory Cocaine Cocaine 12/03 [facility] Studies Screen Screen [facility] - [place] Laboratory Benzodiazepin Benzodiazep 12/03 [facility] Studies es Screen donte Screen [facility] [place] Laboratory Amphetamines Amphetamine 12/03 [facility] Studies Screen s Screen [facility] [place] Laboratory Segmented 82 % 40 - 80 12/03 [facility] Studies Neutrophils [facility] [place] Laboratory Monocytes 3 % 0 - 10 12/03 [facility]. Studies [facility] [place] Laboratory Metamyelocyte 1 % 0 - 0 12/03 [facility] Studies s [facility] [place] Laboratory Lymphocytes 5 % 15 - 42 12/03 [facility]. Studies [facility] [place] Laboratory Eosinophils 1 % 0 - 3 12/03 [facility]. Studies [facility] [place] Laboratory Dohle Bodies Dohle 12/03 [facility] Studies Bodies [facility] [place] Laboratory Basophils 0 % 0 - 1 12/03 [facility]. Studies [facility] [place] Laboratory Band 8 % 0 - 1 12/03 [facility] Studies Neutrophils [facility] [place] Laboratory Salicylates null 12/03 [facility]. Studies Level [facility] [place] Laboratory Plasma/Serum null 12/[address] Studies Blood Alcohol /2017 [facility] [place] Laboratory Acetaminophen 20.9 ug/ml 10 - 30 12/[address] [facility] [address] Studies Level /2017 [facility] [place] Laboratory Direct null 0 - 0.2 12/[address] [facility] [address] Studies Bilirubin /2017 [facility] [place] Laboratory Creatine 1.7 ng/ml 0.3 - 4.0 12/[address] [facility] [address] Studies Kinase MB /2017 [facility] - [place] Laboratory Prothrombin 10.3 9.5 - 12.5 12/[address] [facility] [address] Studies Time SECONDS /2017 [facility] [place] Laboratory INR 0.87 12/[address] [facility] [address] Studies International /2017 [facility] - Normalized [place] Ratio Laboratory Activated 25.1 24.3 - 12/[address] [facility] [address] Studies Partial SECONDS 36.9 [facility] - Thromboplast [place] Time Laboratory B-Type 217 pg/ml 12/[address] [facility] [address] Studies Natriuretic [facility] - Peptide [place] Laboratory Rapid null 12/[address] [facility] [address] Studies Troponin I [facility] - [place] Laboratory Lipase 12 U/L 22 - 51 12/[address] [facility] [address] Studies /2017 [facility] [place] Microbiolog Morganella Morganella 10/[address] [facility] [address] y Studies Morganii Morganii /2016 [facility] - [place] Microbiolog Enterococcus Enterococcu 10/[address] [facility] [address] y Studies Faecium s Faecium /2016 [facility] - [place] Laboratory Urine Urine 10/[address] [facility] [address] Studies Amorphous Amorphous [facility] - Sediment Sediment [place] Laboratory Procalcitonin null 10/[address] [facility] [address] Studies [facility] [place] Laboratory Lactic Acid 9.9 mg/dL 4.5 - 19.8 10/[address] [facility] [address] Studies Level [facility] [place] Vital Signs Vital Sign Value Date Comments Source Temperature Oral (F) 98.6 F 12/14/2017 [facility] Heart Rate 70 12/14/2017 [facility] Respitory Rate 18 12/14/2017 [facility] Systolic (mm Hg) 145 [facility] Diastolic (mm Hg) 63 12/14/2017 [facility] Height 68 12/08/[address] [facility] [place] Weight 190 12/08/[address] [facility] [address] [facility] [place] Encounters Location Location Encounter Encounter Reason Attending ADM DC Status Source Details Type Number For Provider Date Date Visit [facility] [id number] 10/26 10/[address] [facility] [place] [facility] Registered [id number] 11[facility] [facility] [place] [facility] [id number] 11/20 11/[address] [facility] [place] [facility] Departed [id number] 12/03 12/[address] [facility] [place] [facility] Departed [id number] 12/04 12/[address] [facility] [place] [facility] St[facility] Discharged [id number] 12/08 12/[address] [facility] [address] [facility] [place] Procedures Procedure Code Date Perfomer Comments Source Head Brain Wo [id number] [facility] Cont 8 [place] Shoulder Left [id number] [facility] [address] [facility] - View 8 [place] Shoulder Left [id number] [facility] [address] - View 8 [place] Elsie Count [id number] [facility] - 8 [place] [id number] [facility] - 8 [place] Knee Left [id number] [facility] - View 8 [place] Chest Single [id number] [facility] - View 8 [place] Shoulder Right [id number] [facility] - 2 View 8 [place] Anaerobic Blood [id number] [facility] - Culture 7 [place] Aerobic Blood [id number] [facility] - Culture 7 [place] Elsie Count [id number] [facility] - [facility] [place] [id number] [facility] - 7 [place] Head Brain Wo [id number] [facility] Cont 7 [place] Abdomen & [id number] [facility] - Pelvis W 7 [place] Contrast Chest Single [id number] [facility] - [facility] 7 [place]
--- NOTE | 2018-10-18 04:38 | ER ---
Nurse's Notes [facility] Name: Tina Padron Age: 73 yrs Sex: Female : 1945 Arrival Date: 10/18/2018 Time: 02:35 Bed 6 Private MD: Diagnosis: Neck pain, chronic;Fall from standing Presentation: 10/18 02:46 Presenting complaint: EMS states: pt fell while ambulating to restroom without her ak1 walker. pt had previous fall this month. pt in her own c-collar. pt A\\T\\OX4 with slurred speech. pt takes Xanax, Percocet, meclizine, tramadol at home. 02:47 Risk Assessment: Do you want to hurt yourself or someone else? Patient reports no jd3 desire to harm self or others. Initial Sepsis Screen: Does the patient meet any 2 criteria? No. Patient's initial sepsis screen is negative. Does the patient have a suspected source of infection? No. Patient's initial sepsis screen is negative. Care prior to arrival: Cervical collar in place. 02:47 Acuity: TYLOR 3 jd3 02:47 Method Of Arrival: EMS: [facility] j 02:51 Transition of care: patient was not received from another setting of care. Onset of d3 symptoms was October 18, 2018. 02:53 Mechanism of Injury: Fall from standing position. Trauma event details: Injury occurred jd3 in the [facility], Injury occurred: at home. Injury occurred: October 18, 2018. Trauma Activation: Alert Physician: ED Physician; Name: akhil; Notified At: 02:25; Arrived At: 02:25 Physician: General Surgeon; Name: ; Notified At: 02:25; Arrived At: Physician: Radiology; Name: Funmi Hernández; Notified At: 02:25; Arrived At: 02:25 Physician: Respiratory; Name: ; Notified At: 02:25; Arrived At: Physician: Lab; Name: ; Notified At: 02:25; Arrived At: Historical: - Allergies: 02:51 Compazine; jd3 - Home Meds: 02:51 acetaminophen-codeine 300-30 mg Oral tab 1 tab Q8HRS PRN [Active]; aspirin 81 mg Oral jd3 TbEC 1 tab once daily [Active]; Bactrim DS 800-160 mg Oral tab 1 tab every 12 hours [Active]; dicyclomine 20 mg Oral tab nightly [Active]; levothyroxine 100 mcg tab 1 tab once daily [Active]; losartan 50 mg Oral tab 1 tab once daily [Active]; meclizine 25 mg Oral tab 1 tab TID prn [Active]; potassium chloride 20 mEq Oral TbER 1 tab once daily [Active]; simvastatin 20 mg Oral tab nightly [Active]; tramadol 50 mg Oral tab 1 tab q 8hrs prbn [Active]; - PMHx: 02:51 "shattered shoulder"; Anxiety; Hyperlipidemia; chronic uti; Hypertension; jd3 Hypothyroidism; - PSHx: 02:51 left shoulder surg; jd3 - Immunization history:: Adult Immunizations unknown. - Social history:: Smoking status: unknown. - Immunization history: Last tetanus immunization: unknown. - Ebola Screening: : Patient negative for fever greater than or equal to 101.5 degrees Fahrenheit, and additional compatible Ebola Virus Disease symptoms. - Family history:: not pertinent. - Hospitalizations: : No recent hospitalization is reported. Screenin:39 Abuse screen: Denies threats or abuse. Nutritional screening: No deficits noted. jd3 Tuberculosis screening: No symptoms or risk factors identified. Fall Risk Ambulatory Aid- Crutches/Cane/Walker (15 pts). Gait- Weak (10 pts.). Mental Status- Oriented to own ability (0 pts). Total Wick Fall Scale indicates Low Risk Score (25-44 pts). Fall prevention measures have been instituted. Side Rails Up X 2 Placed close to Nursing Station Frequent Obs/Assesments occuring Family Present and informed to notify staff if they need to leave bedside. Primary Survey: 02:55 NO uncontrolled hemorrhage observed. A: The patient is alert. Airway: patent, No jd3 supplemental oxygen in use on arrival. Breathing/Chest: Respiratory pattern: regular, Respiratory effort: spontaneous, unlabored. Circulation: Skin color: pink, Skin temperature: warm. Disability Alert. Exposure/Environment: A warming method has been applied: A warm blanket has been provided to the patient. 04:32 Reassessment Airway Airway Patent Breathing/Chest Respiratory pattern Regular jd3 Respiratory effort Spontaneous Unlabored. Secondary Survey: 02:56 HEENT: No deficits noted. Gastrointestinal: No deficits noted. : No signs and/or jd3 symptoms were reported regarding the genitourinary system. Musculoskeletal: Range of motion: limited in left shoulder, left knee, right shoulder and right knee. Assessment: 02:35 General: Appears in no apparent distress. uncomfortable, Behavior is drowsy. Pain: jd3 Complains of pain in neck Quality of pain is described as aching. Neuro: Level of Consciousness is awake, lethargic, Oriented to person, place, situation. Cardiovascular: Denies shortness of breath, Capillary refill < 3 seconds Patient's skin is warm and dry. Respiratory: Airway is patent Respiratory effort is even, unlabored, Respiratory pattern is regular, symmetrical, Denies shortness of breath. GI: Abdomen is round non-distended. : No signs and/or symptoms were reported regarding the genitourinary system. EENT: No signs and/or symptoms were reported regarding the EENT system. Derm: Skin is intact, Skin is dry, Skin is normal, Skin temperature is warm. Musculoskeletal: Circulation, motion, and sensation intact. Range of motion: limited in left shoulder, left knee, right shoulder and right knee. 04:31 Reassessment: Patient appears in no apparent distress at this time. No changes from jd3 previously documented assessment. Patient and/or family updated on plan of care and expected duration. Pain level reassessed. pt screaming for help, upon assessment pt reported wanting to leave and wanted her in her room with her from out of the lobby. 04:43 Reassessment: Patient appears in no apparent distress at this time. No changes from jd3 previously documented assessment. Patient and/or family updated on plan of care and expected duration. Pain level reassessed. Patient is alert, oriented x 3, equal unlabored respirations, skin warm/dry/pink. Vital Signs: 02:39 BP 140 / 65; Pulse 92; Resp 16; Temp 98.0(O); Pulse Ox 98% on R/A; Weight 74.84 kg (R); ak1 Height 5 ft. 6 in. (167.64 cm) (R); Pain 6/10; 04:32 BP 140 / 65; Pulse 89; Resp 17 S; Pulse Ox 97% on R/A; jd3 02:39 Body Mass Index 26.63 (74.84 kg, 167.64 cm) ak1 Haley Coma Score: 02:57 Eye Response: spontaneous(4). Verbal Response: oriented(5). Motor Response: obeys jd3 commands(6). Total: 15. Trauma Score (Adult): 02:57 Eye Response: spontaneous(1); Verbal Response: oriented(1); Motor Response: obeys jd3 commands(2); Systolic BP: > 89 mm Hg(4); Respiratory Rate: 10 to 29 per min(4); [place] Score: 15; Trauma Score: 12 ED Course: 02:35 Patient arrived in ED. jd3 02:38 Patient has correct armband on for positive identification. Bed in low position. Call jd3 light in reach. Side rails up X2. Adult w/ patient. 02:39 Patient placed in an exam room, on a stretcher, on pulse oximetry, pt wearing her own ak1 c-collar. pt had previous fall with hx left dislocated shoulder, right shoulder fx. 02:41 Willi Doshi RN is Primary Nurse. jd3 02:41 Chintan Ramírez MD is Attending Physician. rn 02:47 Triage completed. jd3 02:58 Patient maintains SpO2 saturation greater than 95% on room air. Thermoregulation: warm jd3 blanket given to patient. 03:14 CT Head C Spine In Process Unspecified. EDMS 04:41 No provider procedures requiring assistance completed. Patient did not have IV access jd3 during this emergency room visit. Administered Medications: No medications were administered Intake: 04:42 PO: 0ml; Total: 0ml. jd3 Output: 04:42 Urine: 0ml; Total: 0ml. jd3 Outcome: 04:37 Discharge ordered by . rn 04:42 Discharged to home via wheelchair, with family. jd3 04:42 Condition: stable 04:42 Discharge instructions given to patient, Instructed on discharge instructions, follow up and referral plans. Demonstrated understanding of instructions, follow-up care. 04:42 Patient's length of stay was not longer than 2 hours. jd3 04:45 Patient left the ED. jd3 Signatures: Dispatcher [employer] EDMS Chintan Ramírez MD MD rn Krenek, Amber, RN RN ak1 Willi Doshi RN RN jd3 Corrections: (The following items were deleted from the chart) 02:40 02:39 Fall Risk Ambulatory Aid- None/Bed Rest/Nurse Assist (0 pts). Gait- Normal/Bed jd3 Rest/Wheelchair (0 pts) Mental Status- Oriented to own ability (0 pts). Total Wick Fall Scale indicates No Risk (0-24 pts). jd3 04:34 02:35 Neuro: Level of Consciousness is awake, lethargic, Oriented to person, place, jd3 jd3 04:34 04:31 Reassessment: Patient appears in no apparent distress at this time. No changes jd3 from previously documented assessment. Patient and/or family updated on plan of care and expected duration. Pain level reassessed. jd3
--- NOTE | 2018-10-18 04:38 | EDPHYS ---
Physician Documentation [facility] Name: Tina Padron Age: 73 yrs Sex: Female : 1945 Arrival Date: 10/18/2018 Time: 02:35 Bed 6 Private MD: ED Physician Chintan Ramírez HPI: 10/18 02:55 This 73 yrs old Female presents to ER via EMS with complaints of fall, neck rn pain. 02:55 The patient or guardian complains of an injury, pain. The symptoms are located rn diffusely. Onset: The symptoms/episode began/occurred just prior to arrival. Associated signs and symptoms: Pertinent positives: This patient does not have any pertinent positive signs or symptoms associated with neck pain. Pertinent negatives: bladder incontinence, bowel incontinence, nausea, numbness, tingling, vomiting, weakness. The pain does not radiate. Modifying factors: The symptoms are alleviated by nothing. the symptoms are aggravated by nothing. Severity of symptoms: At their worst the symptoms were mild, in the emergency department the symptoms are unchanged. The patient has experienced similar episodes in the past. reports an hour or so ago was going to bathroom, fell, falls a lot due to her percocet and xanax prescriptions, has known c1 fracture that is tracked by a neurosurgeon, last seen 2 weeks ago and no surgery recommended, fracture was 1.5 months ago, states went back to bed, said her neck hurt and made him call 911. Was wearing ccollar when fell. No other acute injuries. Has also recently broken her left shoulder. . Historical: - Allergies: 02:51 Compazine; jd3 - Home Meds: 02:51 acetaminophen-codeine 300-30 mg Oral tab 1 tab Q8HRS PRN [Active]; aspirin 81 mg Oral jd3 TbEC 1 tab once daily [Active]; Bactrim DS 800-160 mg Oral tab 1 tab every 12 hours [Active]; dicyclomine 20 mg Oral tab nightly [Active]; levothyroxine 100 mcg tab 1 tab once daily [Active]; losartan 50 mg Oral tab 1 tab once daily [Active]; meclizine 25 mg Oral tab 1 tab TID prn [Active]; potassium chloride 20 mEq Oral TbER 1 tab once daily [Active]; simvastatin 20 mg Oral tab nightly [Active]; tramadol 50 mg Oral tab 1 tab q 8hrs prbn [Active]; - PMHx: 02:51 "shattered shoulder"; Anxiety; Hyperlipidemia; chronic uti; Hypertension; jd3 Hypothyroidism; - PSHx: 02:51 left shoulder surg; jd3 - Immunization history:: Adult Immunizations unknown. - Social history:: Smoking status: unknown. - Immunization history: Last tetanus immunization: unknown. - Ebola Screening: : Patient negative for fever greater than or equal to 101.5 degrees Fahrenheit, and additional compatible Ebola Virus Disease symptoms. - Family history:: not pertinent. - Hospitalizations: : No recent hospitalization is reported. ROS: 02:55 Constitutional: Negative for fever, chills, and weight loss, Eyes: Negative for injury, rn pain, redness, and discharge, Neck: + neck pain Cardiovascular: Negative for chest pain, palpitations, and edema, Respiratory: Negative for shortness of breath, cough, wheezing, and pleuritic chest pain, Abdomen/GI: Negative for abdominal pain, nausea, vomiting, diarrhea, and constipation, MS/Extremity: Negative for injury and deformity, Skin: Negative for injury, rash, and discoloration, Neuro: Negative for headache, numbness, tingling, and seizure. Exam: 02:55 Constitutional: This is a well developed, well nourished patient who is awake, rn slurring her speech and slow to respond, barely makes sense. Head/Face: Normocephalic, atraumatic. Eyes: Pupils 3mm, reactive ENT: dry MM Neck: in ccollar, no midline tenderness Cardiovascular: Regular rate and rhythm with a normal S1 and S2. No gallops, murmurs, or rubs. No JVD. No pulse deficits. Respiratory: Lungs have equal breath sounds bilaterally, clear to auscultation, No increased work of breathing, no retractions or nasal flaring. Abdomen/GI: soft, non-tender MS/ Extremity: Pulses equal, no cyanosis. Neurovascular intact. Full, normal range of motion. Equal circumference. Neuro: Awake, oriented to person, place, and situation. Cranial nerves II-XII grossly intact. Motor strength 5/5 in all extremities. Sensory grossly intact. Vital Signs: 02:39 BP 140 / 65; Pulse 92; Resp 16; Temp 98.0(O); Pulse Ox 98% on R/A; Weight 74.84 kg (R); ak1 Height 5 ft. 6 in. (167.64 cm) (R); Pain 6/10; 04:32 BP 140 / 65; Pulse 89; Resp 17 S; Pulse Ox 97% on R/A; jd3 02:39 Body Mass Index 26.63 (74.84 kg, 167.64 cm) ak1 Haley Coma Score: 02:57 Eye Response: spontaneous(4). Verbal Response: oriented(5). Motor Response: obeys jd3 commands(6). Total: 15. Trauma Score (Adult): 02:57 Eye Response: spontaneous(1); Verbal Response: oriented(1); Motor Response: obeys jd3 commands(2); Systolic BP: > 89 mm Hg(4); Respiratory Rate: 10 to 29 per min(4); Haley Score: 15; Trauma Score: 12 MDM: 02:41 Patient medically screened. rn 04:37 Differential diagnosis: Cervical Discogenic Pain Cervical Raiculopathy cervical strain, rn fracture, Osteoarthritis Spondylosis. Data reviewed: vital signs, nurses notes, radiologic studies, CT scan, and as a result, I will discharge patient. Counseling: I had a detailed discussion with the patient and/or guardian regarding: the historical points, exam findings, and any diagnostic results supporting the discharge/admit diagnosis, radiology results, the need for outpatient follow up, to return to the emergency department if symptoms worsen or persist or if there are any questions or concerns that arise at home. Special discussion: I discussed with the patient/guardian in detail that at this point there is no indication for admission to the hospital. It is understood, however, that if the symptoms persist or worsen the patient needs to return immediately for re-evaluation. 10/18 02:42 Order name: CT Head C Spine rn Administered Medications: No medications were administered Disposition: 10/18/18 04:37 Discharged to Home. Impression: Neck pain, chronic, Fall from standing. - Condition is Stable. - Discharge Instructions: Neck Contusion. - Medication Reconciliation Form, Thank You Letter, Antibiotic Education, Prescription Opioid Use form. - Follow up: Private Physician; When: As needed; Reason: Recheck today's complaints, Re-evaluation by your physician. - Problem is an ongoing problem. - Symptoms have improved. Signatures: Dispatcher [employer] EDMS Ramírez, Chintan, MD MD rn Doshi, Willi, RN RN jd3 Corrections: (The following items were deleted from the chart) 04:45 04:37 10/18/2018 04:37 Discharged to Home. Impression: Neck pain, chronic; Fall from jd3 standing. Condition is Stable. Forms are Medication Reconciliation Form, Thank You Letter, Antibiotic Education, Prescription Opioid Use. Follow up: Private Physician; When: As needed; Reason: Recheck today's complaints, Re-evaluation by your physician. Problem is an ongoing problem. Symptoms have improved. rn
--- NOTE | 2018-10-18 08:45 | RAD REPORT ---
EXAM DESCRIPTION: CT - [id number] - 10/18/2018 3:13 am CLINICAL HISTORY: Fall, head and neck injury, known cervical fracture A preliminary report was provided at the time of the study and reviewed prior to final report. COMPARISON: CT head and cervical August 12 TECHNIQUE: Axial 5 mm thick images of the head were obtained. Axial 2 mm thick images of the cervic al spine were obtained with sagittal and coronal reconstruction images generated and reviewed. All CT scans are performed using dose optimization technique as appropriate and may include automated exposure control or mA/KV adjustment according to patient size. FINDINGS: No intracranial hemorrhage, mass, edema or acute intracranial finding. No suspicion for acute infarct ion. Mild atrophy and chronic ischemic changes are stable. Ventricles remain in proportion. Mastoid a ir cells are clear. No acute paranasal sinus finding. No globe or orbit abnormality seen. C2- T1 bodies show no acute fracture change. No change in height or alignment. Mid and upper cervical spine facet joint degenerative change remains. Central canal detail is inherently limited. No new ce rvical spine finding at this location. Prominent degenerative change involves the dens and anterior arch of C1 similar to comparison. Patien t has a known fracture of the right C1 lateral mass at the junction with the anterior arch. Increased bone density is present indicating ongoing healing. Fracture line is less distinct also indicating o ngoing healing. No change in alignment or position related to the recent fall. Mild disc space narrow ing at C4-5 has not changed. Mild C5-6 disc space narrowing also stable. No paraspinal mass or hematoma. IMPRESSION: No hemorrhage, edema or acute intracranial finding. No intracranial changes since 2017. Partially healed right C1 lateral mass fracture. No change in alignment or position since July rosalie ging. No new cervical spine finding. Negative CT cervical spine examination for acute or significant finding.
== END 2018-10-18 04:45 | disposition home or self-care (01) ==
LOC: ER 02:29
DX: G89.29 Other chronic pain (principal); W18.39XA Other fall on same level, initial encounter; Y93.89 Activity, other specified; Y92.89 Other specified places as the place of occurrence of the external cause; Z88.8 Allergy status to other drugs, medicaments and biological substances; Z79.82 Long term (current) use of aspirin; I10 Essential (primary) hypertension; E03.9 Hypothyroidism, unspecified; F41.9 Anxiety disorder, unspecified; E78.5 Hyperlipidemia, unspecified
CPT/HCPCS: 70450; 72125; 99284

== ENCOUNTER 2019-07-14 11:00 | Emergency (ER) | payer OTHER, BC ==
--- OUTSIDE RECORDS SUMMARY | 2019-07-14 11:04 | XMS REPORT | Clinical Summary ---
:1945 Author Organization [facility] Address [address] [place] [address] Care Team Providers Name Role Phone Franca Pineda MD Primary Care Provider Allergies Active Allergy Reactions Severity Noted Date Comments Cefuroxime Other (See Comments) 12/28/2018 "shaky legs, and metal taste in the mouth" Patient has tolerated cefdinir and cefepime in the past Prochlorperazine 03/20/2018 Medications Medication Sig Dispensed Refills Start End Status Date Date levothyroxine Take 88 mcg 0 Active (SYNTHROID, LEVOXYL) by mouth 100 mcg tablet daily. oxyCODone-acetaminophen Take 1 tablet 0 Active (PERCOCET) 7.5-325 mg by mouth 3 per tablet (three) times a day. simvastatin (ZOCOR) 20 Take 20 mg by 0 Active MG tablet mouth nightly. losartan (COZAAR) 50 MG Take 50 mg by 0 Active tablet mouth daily. Hold for BP less than 110 and Hr less than 60 hydroCHLOROthiazide Take 25 mg by 0 Active (HYDRODIURIL) 12.5 MG mouth daily. tablet conjugated estrogens Insert 0.5 g 0 Active (PREMARIN) 0.625 into the mg/gram vaginal cream vagina 3 (three) times a week. On Tue. Wed. tuesday aspirin (ECOTRIN) 81 MG Take 81 mg by 0 Active enteric coated tablet mouth daily. omeprazole (PriLOSEC) Take 40 mg by 0 Active 40 MG capsule mouth daily. gabapentin (NEURONTIN) Take 200 mg 0 Active 100 mg capsule by mouth 3 (three) times a day. meclizine (ANTIVERT) 25 Take 25 mg by 0 Active mg tablet mouth 3 (three) times a day as needed for dizziness. potassium chloride Take 20 mEq 0 Active (K-DUR,KLOR-CON) 10 MEQ by mouth 2 CR tablet (two) times a day. ergocalciferol (VITAMIN Take 50,000 0 Active D2) 50,000 unit capsule Units by mouth once a week. On mondays docusate sodium Take 100 mg 0 Active (COLACE) 100 MG capsule by mouth daily as needed for constipation. albuterol (PROAIR Inhale 2 0 Active HFA,PROVENTIL puffs every 6 HFA,VENTOLIN HFA) 90 (six) hours mcg/actuation inhaler as needed for wheezing. clonAZEPAM (KlonoPIN) 1 Take 1 tablet 30 tablet 0 07/03/20 Active MG tablet (1 mg total) 19 019 by mouth nightly as needed for anxiety (for sleep) for up to 30 days. amoxicillin-pot Take 1 tablet 14 tablet 0 07/13/20 Active clavulanate (AUGMENTIN) by mouth 2 019 875-125 mg per tablet (two) times a day for 7 days. ondansetron ODT (ZOFRAN Take 1 tablet 10 tablet 0 07/13/20 Active ODT) 4 MG (4 mg total) 19 019 disintegrating tablet by mouth every 8 (eight) hours as needed for nausea or vomiting for up to 7 days. ALPRAZolam (XANAX) 2 MG Take 2 mg by 0 Discontinued tablet mouth 019 (Stop Taking at nightly. Discharge) alendronate (FOSAMAX) Take one 0 Discontinued 70 MG tablet tablet by 018 (Med List mouth once Cleanup) weekly omeprazole (PriLOSEC) Take 40 mg by 0 Discontinued 40 MG capsule mouth daily. 018 (Med List Cleanup) aspirin (ECOTRIN) 81 MG Take 81 mg by 0 Discontinued enteric coated tablet mouth daily. 019 nystatin-triamcinolone Apply 0 Discontinued (MYCOLOG II) topically 2 018 100,000-0.1 unit/g-% (two) times a cream day. Up to a week metoprolol tartrate Take 25 mg by 0 Discontinued (LOPRESSOR) 50 mg mouth 2 (two) 019 (Med List tablet times a day. Cleanup) losartan (COZAAR) 50 MG Take 50 mg by 0 Discontinued tablet mouth daily. 018 (Stop Taking at Discharge) potassium chloride Take 20 mEq 0 Discontinued (K-DUR,KLOR-CON) 10 MEQ by mouth 2 018 (Stop Taking at CR tablet (two) times a Discharge) day. nitrofurantoin, Take 1 10 capsule 0 07/23/20 macrocrystal-monohydrat capsule (100 18 018 e, (MACROBID) 100 MG mg total) by capsule mouth 2 (two) times a day for 7 days. acetaminophen-codeine Take 1-2 15 tablet 0 07/23/20 (TYLENOL WITH CODEINE tablets by 18 018 #3) 300-30 mg per mouth every 6 tablet (six) hours as needed for moderate pain for up to 15 doses. ondansetron ODT (ZOFRAN Take 1 tablet 10 tablet 0 07/23/20 Discontinued ODT) 4 MG (4 mg total) 18 018 disintegrating tablet by mouth every 8 (eight) hours as needed for nausea or vomiting for up to 10 doses. dicyclomine (BENTYL) 10 Take 10 mg by 0 Discontinued MG capsule mouth daily. 018 (Stop Taking at Discharge) hydroCHLOROthiazide Take 12.5 mg 0 Discontinued (HYDRODIURIL) 12.5 MG by mouth 018 (Stop Taking at tablet daily. Discharge) ceftolozane-tazobactam Infuse 1,500 0 09/01/20 (ZERBAXA) IVPB mg into a 18 018 (RESTRICTED) venous catheter every 8 (eight) hours for 12 days. dicyclomine (BENTYL) 10 Take 10 mg by 0 Discontinued MG capsule mouth daily. 019 (Reorder) nitrofurantoin Take 100 mg 0 Discontinued (MACRODANTIN) 100 MG by mouth 4 019 (Stop Taking at capsule (four) times Discharge) a day. omeprazole (PriLOSEC) Take 40 mg by 0 Discontinued 40 MG capsule mouth daily. 019 (Stop Taking at Discharge) potassium chloride Take 10 mEq 0 Discontinued (K-DUR,KLOR-CON) 10 MEQ by mouth 019 (Stop Taking at CR tablet daily. Discharge) phenazopyridine Take 1 tablet 10 tablet 0 11/21/19 (PYRIDIUM) 100 MG (100 mg 19 019 tablet total) by mouth 3 (three) times daily after meals for 3 days. metoprolol tartrate Take 25 mg by 0 Discontinued (LOPRESSOR) 25 mg mouth 2 (two) 019 tablet times a day. nitrofurantoin Take 100 mg 0 Discontinued (MACRODANTIN) 100 MG by mouth 019 (Stop Taking at capsule daily. Discharge) methen-sod phos-meth Take 1 tablet 0 Discontinued blue-hyos by mouth 019 (Stop Taking at (UROGESIC-BLUE) daily as Discharge) 81.6-40.8-0.12 mg needed tablet (urinary infection). conjugated estrogens Insert 1 g 30 g 3 01/02/20 Discontinued (PREMARIN) 0.625 into the 19 019 mg/gram vaginal cream vagina 2 (two) times a week for 30 days. conjugated estrogens Insert 1 g 30 g 3 01/02/20 Discontinued (PREMARIN) 0.625 into the 19 019 (Reorder) mg/gram vaginal cream vagina 2 (two) times a week for 30 days. cefdinir (OMNICEF) 300 Take 1 12 capsule 0 01/01/20 MG capsule capsule (300 19 019 mg total) by mouth 2 (two) times a day for 6 days. conjugated estrogens Insert 1 g 30 g 3 01/19/20 (PREMARIN) 0.625 into the 19 019 mg/gram vaginal cream vagina 2 (two) times a week for 30 days. Additional information Patient taking differently: 1 g vaginal 2 times weekly, Mondays and fridays, Informant: Self, Reported on 01/31/2019 8:32 PM phenazopyridine Take 1 tablet 2 tablet 0 01/17/2019 01/18/2019 (PYRIDIUM) 100 MG (100 mg total) tablet by mouth 3 (three) times daily after meals for 2 doses. mirabegron 25 mg Take by mouth 0 05/26/2019 Discontinued tablet extended daily. (Patient release 24 hr Reported) methenam/sod Take by mouth 0 07/03/2019 Discontinued phos/mblue/hyoscy 4 (four) times (Stop Taking at (UROGESIC-BLUE ORAL) a day. Discharge) vancomycin Take 5 mL (250 140 mL 0 02/08/2019 02/15/2019 (VANCOCIN) 50 mg/ml mg total) by suspension oral mouth 4 (four) suspension times a day for 7 days. acetaminophen Take 2 tablets 0 02/08/2019 03/10/2019 (TYLENOL) 325 MG (650 mg total) tablet by mouth every 6 (six) hours as needed for mild pain for up to 30 days. dicyclomine (BENTYL) Take 1 capsule 28 capsule 0 02/08/2019 02/15/2019 10 MG capsule (10 mg total) by mouth 3 (three) times a day as needed (abd cramps) for up to 7 days. meclizine (ANTIVERT) Take 25 mg by 0 05/16/2019 Discontinued 25 mg tablet mouth 3 (Stop Taking at (three) times Discharge) a day as needed for dizziness. clonAZEPAM Take 1 mg by 0 04/16/2019 Discontinued (KlonoPIN) 1 MG mouth 2 (two) (Stop Taking at tablet times a day as Discharge) needed (sleep). fosfomycin (MONUROL) Take 3 g by 3 g 1 04/13/2019 04/13/2019 3 gram packet mouth once for 1 dose. metroNIDAZOLE in Infuse 100 mL 4200 mL 0 04/16/2019 04/30/2019 0.9% sodium chloride (500 mg total) (FLAGYL) 500 mg/100 into a venous mL IVPB catheter every 8 (eight) hours for 14 days. meropenem 500 mg in Infuse 500 mg 42 each 0 04/16/2019 04/30/2019 sodium chloride 0.9 into a venous % MBP 50 mL IVPB catheter every 8 (eight) hours for 14 days. gabapentin Take 2 180 capsule 0 04/16/2019 05/16/2019 (NEURONTIN) 100 mg capsules (200 capsule mg total) by mouth 3 (three) times a day for 30 days. potassium chloride Take 1 tablet 30 tablet 0 04/17/2019 05/16/2019 Discontinued (K-DUR) 20 MEQ CR (20 mEq total) (Stop Taking at tablet by mouth daily Discharge) for 30 days. pantoprazole Take 1 tablet 30 tablet 0 04/17/2019 05/16/2019 Discontinued (PROTONIX) 40 MG EC (40 mg total) (Stop Taking at tablet by mouth daily Discharge) for 30 days. vancomycin Take 1 capsule 42 capsule 0 04/16/2019 04/30/2019 (VANCOCIN) 125 MG (125 mg total) capsule by mouth 3 (three) times a day with meals for 14 days. oxyCODone-acetaminop Take 1 tablet 0 05/16/2019 Discontinued hen (PERCOCET) by mouth every (Stop Taking at 7.5-325 mg per 4 (four) hours Discharge) tablet as needed for moderate pain. ALPRAZolam (XANAX) 1 Take 1 mg by 0 05/26/2019 Discontinued MG tablet mouth nightly (Patient as needed for Reported) anxiety. cefdinir (OMNICEF) Take 1 capsule 14 capsule 0 05/16/2019 05/23/2019 300 MG capsule (300 mg total) by mouth 2 (two) times a day for 7 days. clonAZEPAM Take 1 mg by 0 05/30/2019 Discontinued (KlonoPIN) 1 MG mouth nightly (Reorder) tablet as needed for anxiety (for sleep). solifenacin Take 5 mg by 0 05/30/2019 Discontinued (VESICARE) 5 MG mouth daily. (Stop Taking at tablet Discharge) fluconazole Take 1 tablet 1 tablet 0 05/31/2019 06/01/2019 (DIFLUCAN) 100 MG (100 mg total) tablet by mouth daily for 1 day. levoFLOXacin Take 1 tablet 10 tablet 0 05/30/2019 06/09/2019 (LEVAQUIN) 500 MG (500 mg total) tablet by mouth daily for 10 days. clonAZEPAM Take 1 tablet 30 tablet 0 05/30/2019 05/30/2019 Discontinued (KlonoPIN) 1 MG (1 mg total) (Reorder) tablet by mouth nightly as needed for anxiety (for sleep) for up to 30 days. clonAZEPAM Take 1 tablet 30 tablet 0 05/30/2019 07/03/2019 Discontinued (KlonoPIN) 1 MG (1 mg total) tablet by mouth nightly as needed for anxiety (for sleep) for up to 30 days. fluconazole Take 1 tablet 10 tablet 0 06/10/2019 06/20/2019 (DIFLUCAN) 100 MG (100 mg total) tablet by mouth daily for 10 days. lidocaine 3 % cream Apply 0 07/03/2019 Discontinued topically as (Stop Taking at needed. Discharge) cefdinir (OMNICEF) Take 1 capsule 14 capsule 0 06/26/2019 07/03/2019 Discontinued 300 MG capsule (300 mg total) (Stop Taking at by mouth 2 Discharge) (two) times a day for 7 days. levoFLOXacin Take 1 tablet 7 tablet 0 07/03/2019 07/10/2019 (LEVAQUIN) 500 MG (500 mg total) tablet by mouth daily for 7 days. Active Problems Problem Noted Date Urinary tract infection with hematuria 06/22/2019 UTI (urinary tract infection) 05/13/2019 C. difficile diarrhea 02/17/2019 Abdominal pain 01/31/2019 Acute cystitis with hematuria 01/14/2019 Urinary tract infection without hematuria 11/15/2018 Acute UTI (urinary tract infection) 08/29/2018 Toxic metabolic encephalopathy 07/20/2018 Chronic UTI 06/21/2018 HTN (hypertension) 03/28/2018 Chronic pain due to injury 03/28/2018 Confusion 03/27/2018 Acute UTI 03/20/2018 Encounters Date Type Specialty Care Team Description 07/13/2019 Emergency Emergency Cali Ch Body aches (Primary Dx); Medicine Lamine Cota, Upper respiratory tract infection, unspecified type; Leukocytes in urine 06/30/2019 - Hospital Encounter General Internal Elier Polk Acute UTI (Primary Dx); 07/03/2019 Katerin Segovia III, MD Failure of outpatient treatment Franca Pineda MD 06/22/2019 - Hospital Encounter General Internal Chowdhury, Urinary tract 06/26/2019 Katerin Kelly MD infection with Franca Pineda hematuria, site MD Evans unspecified (Primary Dx) 06/06/2019 Anesthesia Event General Surgery Sanjuana Abarca MD Pasdar-Shirazi, Francisco, MD 06/06/2019 Surgery General Surgery Barbara Rosales Janette, Cystoscopy 06/05/2019 - Hospital Encounter General Internal Franca Pineda Urinary tract infection without hematuria, site unspecified (Primary Dx); 06/09/2019 Medicine MD Evans Dysuria; Bladder pain 06/03/2019 Emergency Emergency Brandon Hernandez, Acute pelvic pain (Primary Dx ); Medicine Acute cystitis without hematuria 06/03/2019 Travel 05/26/2019 - Hospital Encounter General Internal Chowdhury, Urinary tract 05/30/2019 Medicine MD Robin infection with Edwin, Salman hematuria, site MD Evans unspecified (Primary Dx) 05/18/2019 Patient Outreach Quality Edna Allen, ALCIDES 05/13/2019 - Hospital Encounter General Internal Brandon Hernandez, Urinary tract 05/16/2019 Medicine infection without Edwin, Salman hematuria, site MD Evans unspecified (Primary Dx) 04/09/2019 - Hospital Encounter General Internal Edwige Toledo Urinary tract infection without hematuria, site unspecified (Primary Dx); 04/16/2019 Medicine Sandoval Cardoso MD Anemia, unspecified type; Catherine, Dysuria MD Lenny 02/17/2019 Emergency Emergency Giovanny Glover MD C. difficile diarrhea Medicine Cali Ch (Primary Dx) Lamine Cota MD 01/31/2019 - Hospital Encounter General Internal Meño Payton Abdominal pain, unspecified abdominal location (Primary Dx); 02/08/2019 Katerin Segovia MD Nausea and vomiting, intractability of vomiting not specified, unspecified vomiting type; Ashu Quezada, Enterocolitis; Chronic UTI; Anemia, unspecified type; C. difficile colitis 01/14/2019 - Hospital Encounter General Internal Meño Payton Acute cystitis with 01/16/2019 Katerin Segovia MD hematuria (Primary Dx) Jesús Nunez MD 12/28/2018 Travel 12/27/2018 - Hospital Encounter General Internal Nixon York Acute UTI ( urinary tract infection) (Primary Dx); 12/31/2018 Medicine MD Umberto Colonization with multidrug-resistant bacteria; Carlitos, Strain of neck muscle, initial encounter; MD Umberto Chronic neck pain; Bello Paulino MD Weakness generalized; Chronic UTI; Vaginal atrophy 11/21/2018 Patient Outreach Quality Violeta Reveles, ALCIDES 11/15/2018 - Hospital Encounter General Internal Matthew, Urinary tract infection without hematuria, site unspecified (Primary Dx); 11/21/2018 Medicine Umberto Jacobsen, Essential hypertension; Chronic UTI Vero Wilkes MD 08/29/2018 - Hospital Encounter General Internal JamElier Acute UTI (urinary 09/01/2018 Katerin Segovia III, MD tract infection) Giovanny Glover MD (Primary Dx) Jesús Nunez MD 07/23/2018 Emergency Emergency Mustapha Stack Dysuria (Primary Dx) Katerin Valentine MD 07/20/2018 - Hospital Encounter General Internal Mustapha Stack Toxic metabolic encephalopathy (Primary Dx); 07/23/2018 Katerin Valentine MD Urinary tract infection without hematuria, site unspecified; Jesús Nunez History of gastric bypass; MD Anitha Acute UTI; Ken May MD Confusion; Chronic pain due to injury after 07/13/2018 Family History Medical History Relation Name Comments Diabetes Father Heart disease Father Hypertension Father Diabetes Mother Heart disease Mother Hypertension Mother Kidney disease Mother Relation Name Status Comments Father Mother Social History Tobacco Use Types Packs/Day Years Used Date Never Smoker Smokeless Tobacco: Never Used Alcohol Use Drinks/Week oz/Week Comments No Sex Assigned at Date Recorded Not on file Job Start Date Occupation Industry Not on file Not on file Not on file Travel History Travel Start Travel End No recent travel history available. Last Filed Vital Signs Vital Sign Reading Time Taken Comments Blood Pressure 125/57 07/13/2019 3:39 PM CDT Pulse 67 07/13/2019 3:39 PM CDT Temperature 36.4 C (97.6 F) 07/13/2019 10:58 AM CDT Respiratory Rate 16 07/13/2019 3:39 PM CDT Oxygen Saturation 98% 07/13/2019 3:39 PM CDT Inhaled Oxygen Concentration - - Weight 77.1 kg (170 lb) 07/13/2019 12:05 PM CDT Height 165.1 cm (5' 5") 07/13/2019 12:05 PM CDT Body Mass Index 28.29 07/13/2019 12:05 PM CDT Plan of Treatment Health Maintenance Due Date Last Done Comments BREAST CANCER SCREENING 1997 COLONOSCOPY SCREENING 1997 SHINGLES VACCINES (#1) 1997 65+ PNEUMOCOCCAL VACCINE (2 of 2 - PPSV23) 2012 08/07/2015 INFLUENZA VACCINE 05/31/2019 08/05/2016, 2015 Implants Implanted Type Area Visiting Teacher Device Identifier Shelf Expiration Model / Serial Date / Lot Screw Screw Procedures Procedure Name Priority Date/Time Associated Comments Diagnosis GRAM STAIN STAT 07/13/2019 2:43 Results for this PM CDT procedure are in the results section. URINE CULTURE STAT 07/13/2019 2:[address] HEAD WO CONTRAST STAT 07/13/2019 2:09 Results for this PM CDT procedure are in the results section. ECG 12-LEAD STAT 07/13/2019 2:03 PM CDT RESPIRATORY PATHOGEN Routine 07/13/2019 1:58 Results for this PANEL PM CDT procedure are in the results section. GROUP A STREP, RAPID Routine 07/13/2019 1:58 Results for this ANTIGEN PM CDT procedure are in the results section. INFLUENZA ANTIGEN TEST, Routine 07/13/2019 1:58 Results for this REFLEX NEGATIVE TO RPP PM CDT procedure are in the results section. XR CHEST 1 VW PORTABLE STAT 07/13/2019 1:46 Results for this PM CDT procedure are in the results section. CREATINE KINASE, TOTAL STAT 07/13/2019 1:38 Results for this (CPK) PM CDT procedure are in the results section. ESTIMATED GFR STAT 07/13/2019 1:38 Results for this PM CDT procedure are in the results section. LIPASE LEVEL STAT 07/13/2019 1:38 Results for this PM CDT procedure are in the results section. URINALYSIS SCREEN AND STAT 07/13/2019 1:38 Results for this MICROSCOPY, WITH REFLEX PM CDT procedure are in TO CULTURE the results section. TROPONIN STAT 07/13/2019 1:38 Results for this PM CDT procedure are in the results section. COMPREHENSIVE METABOLIC STAT 07/13/2019 1:38 Results for this PANEL PM CDT procedure are in the results section. HC COMPLETE BLD COUNT STAT 07/13/2019 1:38 Results for this W/AUTO DIFF PM CDT procedure are in the results section. ECG ED PRELIMINARY Routine 07/13/2019 1:17 Results for this INTERPRETATION PM CDT procedure are in the results section. MANUAL DIFFERENTIAL Routine 07/01/2019 5:30 Results for this AM CDT procedure are in the results section. ESTIMATED GFR Routine 07/01/2019 5:30 Results for this AM CDT procedure are in the results section. COMPREHENSIVE METABOLIC Routine 07/01/2019 5:30 Results for this PANEL AM CDT procedure are in the results section. CBC WITH PLATELET AND Routine 07/01/2019 5:30 Results for this DIFFERENTIAL AM CDT procedure are in the results section. BLOOD CULTURE, AEROBIC & Routine 06/30/2019 1:15 Results for this ANAEROBIC PM CDT procedure are in the results section. ESTIMATED GFR STAT 06/30/2019 12:50 Results for this PM CDT procedure are in the results section. LIPASE LEVEL STAT 06/30/2019 12:50 Results for this PM CDT procedure are in the results section. COMPREHENSIVE METABOLIC STAT 06/30/2019 12:50 Results for this PANEL PM CDT procedure are in the results section. HC COMPLETE BLD COUNT STAT 06/30/2019 12:50 Results for this W/AUTO DIFF PM CDT procedure are in the results section. BLOOD CULTURE, AEROBIC & Routine 06/30/2019 12:50 Results for this ANAEROBIC PM CDT procedure are in the results section. URINE CULTURE Routine 06/30/2019 12:35 Results for this PM CDT procedure are in the results section. GRAM STAIN Routine 06/30/2019 12:35 Results for this PM CDT procedure are in the results section. URINALYSIS SCREEN AND Routine 06/30/2019 11:29 Results for this MICROSCOPY, WITH REFLEX AM CDT procedure are in TO CULTURE the results section. ESTIMATED GFR Routine 06/26/2019 5:43 Results for this AM CDT procedure are in the results section. BASIC METABOLIC PANEL Routine 06/26/2019 5:43 Results for this AM CDT procedure are in the results section. HC COMPLETE BLD COUNT Routine 06/26/2019 5:43 Results for this W/AUTO DIFF AM CDT procedure are in the results section. ESTIMATED GFR Routine 06/25/2019 5:40 Results for this AM CDT procedure are in the results section. BASIC METABOLIC PANEL Routine 06/25/2019 5:40 Results for this AM CDT procedure are in the results section. HC COMPLETE BLD COUNT Routine 06/25/2019 5:40 Results for this W/AUTO DIFF AM CDT procedure are in the results section. GRAM STAIN Routine 06/24/2019 11:34 Results for this AM CDT procedure are in the results section. URINE CULTURE Routine 06/24/2019 11:34 Results for this AM CDT procedure are in the results section. URINALYSIS SCREEN AND Routine 06/24/2019 10:52 Results for this MICROSCOPY, WITH REFLEX AM CDT procedure are in TO CULTURE the results section. XR LUMBAR SPINE 2 OR 3 Routine 06/23/2019 3:27 Results for this VW PM CDT procedure are in the results section. ECG 12-LEAD STAT 06/23/2019 10:13 Results for this AM CDT procedure are in the results section. MANUAL DIFFERENTIAL Routine 06/23/2019 6:17 Results for this AM CDT procedure are in the results section. ESTIMATED GFR Routine 06/23/2019 6:17 Results for this AM CDT procedure are in the results section. COMPREHENSIVE METABOLIC Routine 06/23/2019 6:17 Results for this PANEL AM CDT procedure are in the results section. CBC WITH PLATELET AND Routine 06/23/2019 6:17 Results for this DIFFERENTIAL AM CDT procedure are in the results section. LACTIC ACID LEVEL, Timed 06/23/2019 6:17 Results for this SEPSIS - NOW AND REPEAT AM CDT procedure are in 2X EVERY 3 HOURS the results section. LACTIC ACID LEVEL, Timed 06/23/2019 3:05 Results for this SEPSIS - NOW AND REPEAT AM CDT procedure are in 2X EVERY 3 HOURS the results section. ESTIMATED GFR STAT 06/22/2019 6:00 Results for this PM CDT procedure are in the results section. COMPREHENSIVE METABOLIC STAT 06/22/2019 6:00 Results for this PANEL PM CDT procedure are in the results section. HC COMPLETE BLD COUNT STAT 06/22/2019 6:00 Results for this W/AUTO DIFF PM CDT procedure are in the results section. LACTIC ACID LEVEL, STAT 06/22/2019 6:00 Results for this SEPSIS - NOW AND REPEAT PM CDT procedure are in 2X EVERY 3 HOURS the results section. BLOOD CULTURE, AEROBIC & Routine 06/22/2019 5:32 Results for this ANAEROBIC PM CDT procedure are in the results section. BLOOD CULTURE, AEROBIC & Routine 06/22/2019 5:30 Results for this ANAEROBIC PM CDT procedure are in the results section. ECG ED PRELIMINARY Routine 06/22/2019 5:27 Results for this INTERPRETATION PM CDT procedure are in the results section. GRAM STAIN STAT 06/22/2019 5:19 Results for this PM CDT procedure are in the results section. URINE CULTURE STAT 06/22/2019 5:19 Results for this PM CDT procedure are in the results section. ECG 12-LEAD STAT 06/22/2019 5:16 Results for this PM CDT procedure are in the results section. URINALYSIS SCREEN AND STAT 06/22/2019 4:47 Results for this MICROSCOPY, WITH REFLEX PM CDT procedure are in TO CULTURE the results section. XR ABDOMEN 1 VW Routine 06/07/2019 12:07 Results for this PM CDT procedure are in the results section. ESTIMATED GFR Routine 06/07/2019 6:10 Results for this AM CDT procedure are in the results section. BASIC METABOLIC PANEL Routine 06/07/2019 6:10 Results for this AM CDT procedure are in the results section. HC COMPLETE BLD COUNT Routine 06/07/2019 6:10 Results for this W/AUTO DIFF AM CDT procedure are in the results section. GRAM STAIN Timed 06/06/2019 11:16 Results for this AM CDT procedure are in the results section. URINE CULTURE Timed 06/06/2019 11:16 Results for this AM CDT procedure are in the results section. URINALYSIS SCREEN AND Timed 06/06/2019 10:11 Bladder pain Results for this MICROSCOPY, WITH REFLEX AM CDT procedure are in TO CULTURE the results section. LACTIC ACID LEVEL, Timed 06/06/2019 4:15 Results for this SEPSIS - NOW AND REPEAT AM CDT procedure are in 2X EVERY 3 HOURS the results section. LACTIC ACID LEVEL, Timed 06/06/2019 12:05 Results for this SEPSIS - NOW AND REPEAT AM CDT procedure are in 2X EVERY 3 HOURS the results section. ESTIMATED GFR STAT 06/05/2019 9:31 Results for this PM CDT procedure are in the results section. LIPASE LEVEL STAT 06/05/2019 9:31 Results for this PM CDT procedure are in the results section. COMPREHENSIVE METABOLIC STAT 06/05/2019 9:31 Results for this PANEL PM CDT procedure are in the results section. GRAM STAIN STAT 06/05/2019 8:44 Results for this PM CDT procedure are in the results section. URINE CULTURE STAT 06/05/2019 8:44 Results for this PM CDT procedure are in the results section. BLOOD CULTURE, AEROBIC & Routine 06/05/2019 8:30 Results for this ANAEROBIC PM CDT procedure are in the results section. URINALYSIS SCREEN AND STAT 06/05/2019 8:21 Results for this MICROSCOPY, WITH REFLEX PM CDT procedure are in TO CULTURE the results section. HC COMPLETE BLD COUNT STAT 06/05/2019 8:21 Results for this W/AUTO DIFF PM CDT procedure are in the results section. LACTIC ACID LEVEL, STAT 06/05/2019 8:21 Results for this SEPSIS - NOW AND REPEAT PM CDT procedure are in 2X EVERY 3 HOURS the results section. BLOOD CULTURE, AEROBIC & Routine 06/05/2019 8:20 Results for this ANAEROBIC PM CDT procedure are in the results section. CT RENAL STONE PROTOCOL STAT 06/03/2019 2:45 Results for this PM CDT procedure are in the results section. GRAM STAIN STAT 06/03/2019 1:08 Results for this PM CDT procedure are in the results section. URINE CULTURE STAT 06/03/2019 1:08 Results for this PM CDT procedure are in the results section. ESTIMATED GFR STAT 06/03/2019 12:42 Results for this PM CDT procedure are in the results section. COMPREHENSIVE METABOLIC STAT 06/03/2019 12:42 Results for this PANEL PM CDT procedure are in the results section. HC COMPLETE BLD COUNT STAT 06/03/2019 12:42 Results for this W/AUTO DIFF PM CDT procedure are in the results section. URINALYSIS SCREEN AND STAT 06/03/2019 12:29 Results for this MICROSCOPY, WITH REFLEX PM CDT procedure are in TO CULTURE the results section. ESTIMATED GFR Routine 05/30/2019 4:30 Results for this AM CDT procedure are in the results section. BASIC METABOLIC PANEL Routine 05/30/2019 4:30 Results for this AM CDT procedure are in the results section. HC COMPLETE BLD COUNT Routine 05/30/2019 4:30 Results for this W/AUTO DIFF AM CDT procedure are in the results section. ESTIMATED GFR Routine 05/29/2019 4:18 Results for this AM CDT procedure are in the results section. BASIC METABOLIC PANEL Routine 05/29/2019 4:18 Results for this AM CDT procedure are in the results section. HC COMPLETE BLD COUNT Routine 05/29/2019 4:18 Results for this W/AUTO DIFF AM CDT procedure are in the results section. ESTIMATED GFR Routine 05/28/2019 5:34 Results for this AM CDT procedure are in the results section. BASIC METABOLIC PANEL Routine 05/28/2019 5:34 Results for this AM CDT procedure are in the results section. HC COMPLETE BLD COUNT Routine 05/28/2019 5:34 Results for this W/AUTO DIFF AM CDT procedure are in the results section. TROPONIN Timed 05/27/2019 9:47 Results for this AM CDT procedure are in the results section. ESTIMATED GFR Routine 05/27/2019 5:30 Results for this AM CDT procedure are in the results section. COMPREHENSIVE METABOLIC Routine 05/27/2019 5:30 Results for this PANEL AM CDT procedure are in the results section. HC COMPLETE BLD COUNT Routine 05/27/2019 5:30 Results for this W/AUTO DIFF AM CDT procedure are in the results section. TROPONIN Timed 05/27/2019 5:30 Results for this AM CDT procedure are in the results section. TROPONIN Timed 05/26/2019 10:45 Results for this PM CDT procedure are in the results section. LACTIC ACID LEVEL, Timed 05/26/2019 10:45 Results for this SEPSIS - NOW AND REPEAT PM CDT procedure are in 2X EVERY 3 HOURS the results section. LACTIC ACID LEVEL, Timed 05/26/2019 4:00 Results for this SEPSIS - NOW AND REPEAT PM CDT procedure are in 2X EVERY [address] results section[address] RENAL STONE PROTOCOL STAT 05/26/2019 3:01 Results for this PM CDT procedure are in the results section. BLOOD CULTURE, AEROBIC & Routine 05/26/2019 1:37 Results for this ANAEROBIC PM CDT procedure are in the results section. ESTIMATED GFR STAT 05/26/2019 1:30 Results for this PM CDT procedure are in the results section. LACTIC ACID LEVEL, STAT 05/26/2019 1:30 Results for this SEPSIS - NOW AND REPEAT PM CDT procedure are in 2X EVERY 3 HOURS the results section. COMPREHENSIVE METABOLIC STAT 05/26/2019 1:30 Results for this PANEL PM CDT procedure are in the results section. HC COMPLETE BLD COUNT STAT 05/26/2019 1:30 Results for this W/AUTO DIFF PM CDT procedure are in the results section. BLOOD CULTURE, AEROBIC & Routine 05/26/2019 1:30 Results for this ANAEROBIC PM CDT procedure are in the results section. GRAM STAIN STAT 05/26/2019 1:21 Results for this PM CDT procedure are in the results section. URINE CULTURE STAT 05/26/2019 1:21 Results for this PM CDT procedure are in the results section. URINALYSIS SCREEN AND STAT 05/26/2019 12:14 Results for this MICROSCOPY, WITH REFLEX PM CDT procedure are in TO CULTURE the results section. ESTIMATED GFR Routine 05/16/2019 3:10 Results for this AM CDT procedure are in the results section. BASIC METABOLIC PANEL Routine 05/16/2019 3:10 Results for this AM CDT procedure are in the results section. HC COMPLETE BLD COUNT Routine 05/16/2019 3:10 Results for this W/AUTO DIFF AM CDT procedure are in the results section. ESTIMATED GFR Routine 05/15/2019 5:20 Results for this AM CDT procedure are in the results section. MAGNESIUM LEVEL Routine 05/15/2019 5:20 Results for this AM CDT procedure are in the results section. COMPREHENSIVE METABOLIC Routine 05/15/2019 5:20 Results for this PANEL AM CDT procedure are in the results section. HC COMPLETE BLD COUNT Routine 05/15/2019 5:20 Results for this W/AUTO DIFF AM CDT procedure are in the results section. ESTIMATED GFR Routine 05/14/2019 4:45 Results for this AM CDT procedure are in the results section. COMPREHENSIVE METABOLIC Routine 05/14/2019 4:45 Results for this PANEL AM CDT procedure are in the results section. HC COMPLETE BLD COUNT Routine 05/14/2019 4:45 Results for this W/AUTO DIFF AM CDT procedure are in the results section. ESTIMATED GFR STAT 05/13/2019 5:35 Results for this PM CDT procedure are in the results section. COMPREHENSIVE METABOLIC STAT 05/13/2019 5:35 Results for this PANEL PM CDT procedure are in the results section. PARTIAL THROMBOPLASTIN STAT 05/13/2019 5:35 Results for this TIME (PTT) PM CDT procedure are in the results section. PROTHROMBIN TIME WITH STAT 05/13/2019 5:35 Results for this INR PM CDT procedure are in the results section. HC COMPLETE BLD COUNT STAT 05/13/2019 5:35 Results for this W/AUTO DIFF PM CDT procedure are in the results section. BLOOD CULTURE, AEROBIC & Routine 05/13/2019 5:35 Results for this ANAEROBIC PM CDT procedure are in the results section. BLOOD CULTURE, AEROBIC & Routine 05/13/2019 5:35 Results for this ANAEROBIC PM CDT procedure are in the results section. URINE CULTURE STAT 05/13/2019 5:09 Results for this PM CDT procedure are in the results section. GRAM STAIN STAT 05/13/2019 5:09 Results for this PM CDT procedure are in the results section. URINALYSIS SCREEN AND STAT 05/13/2019 4:09 Results for this MICROSCOPY, WITH REFLEX PM CDT procedure are in TO CULTURE the results section. IR PICC PLACEMENT Routine 04/16/2019 2:03 Results for this PM CDT procedure are in the results section. CLOSTRIDIUM DIFFICILE Routine 04/16/2019 10:26 Results for this TOXIN AM CDT procedure are in the results section. MANUAL DIFFERENTIAL Routine 04/16/2019 4:45 Results for this AM CDT procedure are in the results section. CBC WITH PLATELET AND Routine 04/16/2019 4:45 Results for this DIFFERENTIAL AM CDT procedure are in the results section. MANUAL DIFFERENTIAL Routine 04/15/2019 4:02 Results for this AM CDT procedure are in the results section. ESTIMATED GFR Routine 04/15/2019 4:02 Results for this AM CDT procedure are in the results section. COMPREHENSIVE METABOLIC Routine 04/15/2019 4:02 Results for this PANEL AM CDT procedure are in the results section. CBC WITH PLATELET AND Routine 04/15/2019 4:02 Results for this DIFFERENTIAL AM CDT procedure are in the results section. ESTIMATED GFR Routine 04/14/2019 1:00 Results for this PM CDT procedure are in the results section. LACTIC ACID LEVEL Routine 04/14/2019 1:00 Results for this PM CDT procedure are in the results section. PROCALCITONIN Routine 04/14/2019 1:00 Results for this PM CDT procedure are in the results section. COMPREHENSIVE METABOLIC Routine 04/14/2019 1:00 Results for this PANEL PM CDT procedure are in the results section. HC COMPLETE BLD COUNT Routine 04/14/2019 1:00 Results for this W/AUTO DIFF PM CDT procedure are in the results section. GRAM STAIN Routine 04/13/2019 1:43 Results for this PM CDT procedure are in the results section. URINE CULTURE Routine 04/13/2019 1:43 Results for this PM CDT procedure are in the results section. URINALYSIS SCREEN AND Routine 04/13/2019 1:10 Results for this MICROSCOPY, WITH REFLEX PM CDT procedure are in TO CULTURE the results section. ESTIMATED GFR Routine 04/12/2019 4:20 Results for this AM CDT procedure are in the results section. HC COMPLETE BLD COUNT Routine 04/12/2019 4:20 Results for this W/AUTO DIFF AM CDT procedure are in the results section. COMPREHENSIVE METABOLIC Routine 04/12/2019 4:20 Results for this PANEL AM CDT procedure are in the results section. ESTIMATED GFR Routine 04/11/2019 5:18 Results for this AM CDT procedure are in the results section. COMPREHENSIVE METABOLIC Routine 04/11/2019 5:18 Results for this PANEL AM CDT procedure are in the results section. CBC HEMOGRAM Routine 04/11/2019 5:18 Results for this AM CDT procedure are in the results section. CT ABDOMEN PELVIS WO Routine 04/10/2019 8:52 Results for this CONTRAST PM CDT procedure are in the results section. ESTIMATED GFR Routine 04/10/2019 3:22 Results for this AM CDT procedure are in the results section. COMPREHENSIVE METABOLIC Routine 04/10/2019 3:22 Results for this PANEL AM CDT procedure are in the results section. CBC HEMOGRAM Routine 04/10/2019 3:22 Results for this AM CDT procedure are in the results section. LACTIC ACID LEVEL, Timed 04/09/2019 10:38 Results for this SEPSIS - NOW AND REPEAT PM CDT procedure are in 2X EVERY 3 HOURS the results section. LACTIC ACID LEVEL, Timed 04/09/2019 6:20 Results for this SEPSIS - NOW AND REPEAT PM CDT procedure are in 2X EVERY 3 HOURS the results section. GRAM STAIN Timed 04/09/2019 4:29 Results for this PM CDT procedure are in the results section. URINE CULTURE Timed 04/09/2019 4:29 Results for this PM CDT procedure are in the results section. ESTIMATED GFR STAT 04/09/2019 4:00 Results for this PM CDT procedure are in the results section. LACTIC ACID LEVEL, Timed 04/09/2019 4:00 Results for this SEPSIS - NOW AND REPEAT PM CDT procedure are in 2X EVERY 3 HOURS the results section. HC COMPLETE BLD COUNT STAT 04/09/2019 4:00 Results for this W/AUTO DIFF PM CDT procedure are in the results section. COMPREHENSIVE METABOLIC STAT 04/09/2019 4:00 Results for this PANEL PM CDT procedure are in the results section. BLOOD CULTURE, AEROBIC & Routine 04/09/2019 4:00 Results for this ANAEROBIC PM CDT procedure are in the results section. BLOOD CULTURE, AEROBIC & Routine 04/09/2019 4:00 Results for this ANAEROBIC PM CDT procedure are in the results section. URINALYSIS SCREEN AND Timed 04/09/2019 3:55 Results for this MICROSCOPY, WITH REFLEX PM CDT procedure are in TO CULTURE the results section. ESTIMATED GFR STAT 02/17/2019 11:21 Results for this AM CDT procedure are in the results section. LIPASE LEVEL STAT 02/17/2019 11:21 Results for this AM CDT procedure are in the results section. COMPREHENSIVE METABOLIC STAT 02/17/2019 11:21 Results for this PANEL AM CDT procedure are in the results section. HC COMPLETE BLD COUNT STAT 02/17/2019 11:21 Results for this W/AUTO DIFF AM CDT procedure are in the results section. MAGNESIUM LEVEL Routine 02/07/2019 5:45 Results for this AM CDT procedure are in the results section. ESTIMATED GFR Routine 02/07/2019 5:45 Results for this AM CDT procedure are in the results section. PHOSPHORUS LEVEL Routine 02/07/2019 5:45 Results for this AM CDT procedure are in the results section. BASIC METABOLIC PANEL Routine 02/07/2019 5:45 Results for this AM CDT procedure are in the results section. HC COMPLETE BLD COUNT Routine 02/07/2019 5:45 Results for this W/AUTO DIFF AM CDT procedure are in the results section. BASIC METABOLIC PANEL Routine 02/07/2019 4:00 Results for this AM CDT procedure are in the results section. US DUPLEX VENOUS LOWER Routine 02/06/2019 10:55 Results for this EXTREMITY BILATERAL PM CDT procedure are in the results section. ESTIMATED GFR Routine 02/05/2019 3:39 Results for this AM CDT procedure are in the results section. PHOSPHORUS LEVEL Routine 02/05/2019 3:39 Results for this AM CDT procedure are in the results section. MAGNESIUM LEVEL Routine 02/05/2019 3:39 Results for this AM CDT procedure are in the results section. HC COMPLETE BLD COUNT Routine 02/05/2019 3:39 Results for this W/AUTO DIFF AM CDT procedure are in the results section. BASIC METABOLIC PANEL Routine 02/05/2019 3:39 Results for this AM CDT procedure are in the results section. ESTIMATED GFR Routine 02/04/2019 3:20 Results for this AM CDT procedure are in the results section. PHOSPHORUS LEVEL Routine 02/04/2019 3:20 Results for this AM CDT procedure are in the results section. MAGNESIUM LEVEL Routine 02/04/2019 3:20 Results for this AM CDT procedure are in the results section. COMPREHENSIVE METABOLIC Routine 02/04/2019 3:20 Results for this PANEL AM CDT procedure are in the results section. CBC WITH PLATELET AND Routine 02/04/2019 3:20 Results for this DIFFERENTIAL AM CDT procedure are in the results section. ESTIMATED GFR Routine 02/03/2019 5:50 Results for this AM CDT procedure are in the results section. COMPREHENSIVE METABOLIC Routine 02/03/2019 5:50 Results for this PANEL AM CDT procedure are in the results section. HC COMPLETE BLD COUNT Routine 02/03/2019 5:50 Results for this W/AUTO DIFF AM CDT procedure are in the results section. MANUAL DIFFERENTIAL Routine 02/02/2019 4:45 Results for this AM CDT procedure are in the results section. ESTIMATED GFR Routine 02/02/2019 4:45 Results for this AM CDT procedure are in the results section. BASIC METABOLIC PANEL Routine 02/02/2019 4:45 Results for this AM CDT procedure are in the results section. CBC WITH PLATELET AND Routine 02/02/2019 4:45 Results for this DIFFERENTIAL AM CDT procedure are in the results section. LACTIC ACID LEVEL Routine 02/01/2019 11:10 Results for this AM CDT procedure are in the results section. GASTROINTESTINAL PANEL Routine 02/01/2019 10:00 Results for this AM CDT procedure are in the results section. LACTIC ACID LEVEL, Timed 02/01/2019 4:50 Results for this SEPSIS - NOW AND REPEAT AM CDT procedure are in 2X EVERY 3 HOURS the results section. LACTIC ACID LEVEL, Timed 02/01/2019 12:40 Results for this SEPSIS - NOW AND REPEAT AM CDT procedure are in 2X EVERY 3 HOURS the results section. LACTIC ACID LEVEL, Timed 01/31/2019 10:33 Results for this SEPSIS - NOW AND REPEAT PM CDT procedure are in 2X EVERY 3 HOURS the results section. LACTIC ACID LEVEL, Timed 01/31/2019 6:40 Results for this SEPSIS - NOW AND REPEAT PM CDT procedure are in 2X EVERY 3 HOURS the results section. BLOOD CULTURE, AEROBIC & Routine 01/31/2019 6:40 Results for this ANAEROBIC PM CDT procedure are in the results section. BLOOD CULTURE, AEROBIC & Routine 01/31/2019 6:30 Results for this ANAEROBIC PM CDT procedure are in the results section. CT ABDOMEN PELVIS W STAT 01/31/2019 5:40 Results for this CONTRAST PM CDT procedure are in the results section. GRAM STAIN STAT 01/31/2019 4:45 Results for this PM CDT procedure are in the results section. URINE CULTURE STAT 01/31/2019 4:45 Results for this PM CDT procedure are in the results section. LIPASE LEVEL STAT 01/31/2019 3:59 Results for this PM CDT procedure are in the results section. PHOSPHORUS LEVEL STAT 01/31/2019 3:59 Results for this PM CDT procedure are in the results section. MAGNESIUM LEVEL STAT 01/31/2019 3:59 Results for this PM CDT procedure are in the results section. ESTIMATED GFR STAT 01/31/2019 3:59 Results for this PM CDT procedure are in the results section. B NATRIURETIC PEPTIDE STAT 01/31/2019 3:59 Results for this PM CDT procedure are in the results section. TROPONIN STAT 01/31/2019 3:59 Results for this PM CDT procedure are in the results section. COMPREHENSIVE METABOLIC STAT 01/31/2019 3:59 Results for this PANEL PM CDT procedure are in the results section. HC COMPLETE BLD COUNT STAT 01/31/2019 3:59 Results for this W/AUTO DIFF PM CDT procedure are in the results section. ECG 12-LEAD STAT 01/31/2019 3:55 Results for this PM CDT procedure are in the results section. URINALYSIS SCREEN AND STAT 01/31/2019 3:54 Results for this MICROSCOPY, WITH REFLEX PM CDT procedure are in TO CULTURE the results section. ECG ED PRELIMINARY Routine 01/31/2019 2:59 Results for this INTERPRETATION PM CDT procedure are in the results section. ESTIMATED GFR Routine 01/16/2019 4:40 Results for this AM CDT procedure are in the results section. IONIZED CALCIUM Routine 01/16/2019 4:40 Results for this AM CDT procedure are in the results section. PHOSPHORUS LEVEL Routine 01/16/2019 4:40 Results for this AM CDT procedure are in the results section. MAGNESIUM LEVEL Routine 01/16/2019 4:40 Results for this AM CDT procedure are in the results section. COMPREHENSIVE METABOLIC Routine 01/16/2019 4:40 Results for this PANEL AM CDT procedure are in the results section. HC COMPLETE BLD COUNT Routine 01/16/2019 4:40 Results for this W/AUTO DIFF AM CDT procedure are in the results section. LACTIC ACID LEVEL, Timed 01/15/2019 5:55 Results for this SEPSIS - NOW AND REPEAT PM CDT procedure are in 2X EVERY 3 HOURS the results section. LACTIC ACID LEVEL, Timed 01/15/2019 10:00 Results for this SEPSIS - NOW AND REPEAT AM CDT procedure are in 2X EVERY 3 HOURS the results section. ESTIMATED GFR Routine 01/15/2019 6:11 Results for this AM CDT procedure are in the results section. IONIZED CALCIUM Routine 01/15/2019 6:11 Results for this AM CDT procedure are in the results section. PHOSPHORUS LEVEL Routine 01/15/2019 6:11 Results for this AM CDT procedure are in the results section. MAGNESIUM LEVEL Routine 01/15/2019 6:11 Results for this AM CDT procedure are in the results section. COMPREHENSIVE METABOLIC Routine 01/15/2019 6:11 Results for this PANEL AM CDT procedure are in the results section. HC COMPLETE BLD COUNT Routine 01/15/2019 6:11 Results for this W/AUTO DIFF AM CDT procedure are in the results section. LACTIC ACID LEVEL Routine 01/15/2019 6:11 Results for this AM CDT procedure are in the results section. LACTIC ACID LEVEL, Timed 01/15/2019 4:45 Results for this SEPSIS - NOW AND REPEAT AM CDT procedure are in 2X EVERY 3 HOURS the results section. IONIZED CALCIUM Routine 01/15/2019 4:45 Results for this AM CDT procedure are in the results section. CBC WITH PLATELET AND Routine 01/15/2019 4:45 Results for this DIFFERENTIAL AM CDT procedure are in the results section. LACTIC ACID LEVEL, Timed 01/15/2019 1:20 Results for this SEPSIS - NOW AND REPEAT AM CDT procedure are in 2X EVERY 3 HOURS the results section. URINE CULTURE STAT 01/14/2019 8:13 Results for this PM CDT procedure are in the results section. GRAM STAIN STAT 01/14/2019 8:13 Results for this PM CDT procedure are in the results section. BLOOD CULTURE, AEROBIC & Routine 01/14/2019 7:14 Results for this ANAEROBIC PM CDT procedure are in the results section. ESTIMATED GFR STAT 01/14/2019 7:00 Results for this PM CDT procedure are in the results section. COMPREHENSIVE METABOLIC STAT 01/14/2019 7:00 Results for this PANEL PM CDT procedure are in the results section. HC COMPLETE BLD COUNT STAT 01/14/2019 7:00 Results for this W/AUTO DIFF PM CDT procedure are in the results section. LACTIC ACID LEVEL, STAT 01/14/2019 7:00 Results for this SEPSIS - NOW AND REPEAT PM CDT procedure are in 2X EVERY 3 HOURS the results section. BLOOD CULTURE, AEROBIC & Routine 01/14/2019 7:00 Results for this ANAEROBIC PM CDT procedure are in the results section. URINALYSIS SCREEN AND STAT 01/14/2019 6:35 Results for this MICROSCOPY, WITH REFLEX PM CDT procedure are in TO CULTURE the results section. HEMOGLOBIN & HEMATOCRIT Routine 12/31/2018 4:26 Results for this AM [employer] procedure are in the results section. US PELVIC TRANSVAGINAL Routine 12/30/2018 9:52 Results for this AM [employer] procedure are in the results section. US PELVIC TRANSABDOMINAL Routine 12/30/2018 9:52 Results for this AM [employer] procedure are in the results section. ESTIMATED GFR Routine 12/30/2018 7:00 Results for this AM [employer] procedure are in the results section. COMPREHENSIVE METABOLIC Routine 12/30/2018 7:00 Results for this PANEL AM [employer] [facility] procedure are in the results section. PROTHROMBIN TIME WITH Routine 12/30/2018 7:00 Results for this INR AM [employer] [facility] procedure are in the results section. HC COMPLETE BLD COUNT Routine 12/30/2018 7:00 Results for this W/AUTO DIFF AM [employer] [facility] procedure are in the results section. VITAMIN B12 LEVEL Routine 12/29/2018 10:27 Results for this AM [employer] procedure are in the results section. FOLATE LEVEL Routine 12/29/2018 10:27 Results for this AM [employer] procedure are in the results section. POC GLUCOSE Routine 12/29/2018 1:47 Results for this AM [employer] procedure are in the results section. CT CERVICAL SPINE WO STAT 12/28/2018 2:15 Results for this CONTRAST AM [employer] procedure are in the results section. ESTIMATED GFR STAT 12/28/2018 1:29 Results for this AM [employer] procedure are in the results section. COMPREHENSIVE METABOLIC STAT 12/28/2018 1:29 Results for this PANEL AM [employer] procedure are in the results section. LACTIC ACID LEVEL, STAT 12/28/2018 1:29 Results for this SEPSIS - NOW AND REPEAT AM [employer] [facility] procedure are in 2X EVERY 3 HOURS the results section. PARTIAL THROMBOPLASTIN STAT 12/28/2018 1:29 Results for this TIME (PTT) AM [employer] [facility] procedure are in the results section. PROTHROMBIN TIME WITH STAT 12/28/2018 1:29 Results for this INR AM [employer] procedure are in the results section. HC COMPLETE BLD COUNT STAT 12/28/2018 1:29 Results for this W/AUTO DIFF AM [employer] procedure are in the results section. BLOOD CULTURE, AEROBIC & Routine 12/28/2018 1:29 Results for this ANAEROBIC AM [employer] procedure are in the results section. LACTIC ACID LEVEL, Timed 12/28/2018 1:15 Results for this SEPSIS - NOW AND REPEAT AM [employer] procedure are in 2X EVERY 3 HOURS the results section. GRAM STAIN STAT 12/28/2018 12:22 Results for this AM [employer] procedure are in the results section. URINE CULTURE STAT 12/28/2018 12:22 Results for this AM [employer] procedure are in the results section. URINALYSIS SCREEN AND STAT 12/27/2018 11:50 Results for this MICROSCOPY, WITH REFLEX PM [employer] procedure are in TO CULTURE the results section. PROCALCITONIN Routine 11/19/2018 11:35 Results for this AM [employer] procedure are in the results section. CT ABDOMEN PELVIS W Routine 11/17/2018 9:07 Results for this CONTRAST PM [employer] procedure are in the results section. ESTIMATED GFR Routine 11/17/2018 6:00 Results for this AM [employer] procedure are in the results section. LACTIC ACID LEVEL Routine 11/17/2018 6:00 Results for this AM [employer] procedure are in the results section. BASIC METABOLIC PANEL Routine 11/17/2018 6:00 Results for this AM [employer] procedure are in the results section. HC COMPLETE BLD COUNT Routine 11/17/2018 6:00 Results for this W/AUTO DIFF AM [employer] procedure are in the results section. ESTIMATED GFR Routine 11/16/2018 3:56 Results for this AM [employer] procedure are in the results section. LACTIC ACID LEVEL Routine 11/16/2018 3:56 Results for this AM [employer] procedure are in the results section. COMPREHENSIVE METABOLIC Routine 11/16/2018 3:56 Results for this PANEL AM [employer] procedure are in the results section. HC COMPLETE BLD COUNT Routine 11/16/2018 3:56 Results for this W/AUTO DIFF AM [employer] procedure are in the results section. GRAM STAIN Routine 11/15/2018 8:16 Results for this PM [employer] procedure are in the results section. URINE CULTURE Routine 11/15/2018 8:16 Results for this PM [employer] procedure are in the results section. BLOOD CULTURE, AEROBIC & Routine 11/15/2018 8:00 Results for this ANAEROBIC PM [employer] procedure are in the results section. BLOOD CULTURE, AEROBIC & Routine 11/15/2018 7:58 Results for this ANAEROBIC PM [employer] procedure are in the results section. ESTIMATED GFR STAT 11/15/2018 7:57 Results for this PM [employer] procedure are in the results section. URINALYSIS SCREEN AND Routine 11/15/2018 7:57 Results for this MICROSCOPY, WITH REFLEX PM [employer] procedure are in TO CULTURE the results section. HC COMPLETE BLD COUNT STAT 11/15/2018 7:57 Results for this W/AUTO DIFF PM [employer] procedure are in the results section. COMPREHENSIVE METABOLIC STAT 11/15/2018 7:57 Results for this PANEL PM [employer] procedure are in the results section. ESTIMATED GFR Routine 09/01/2018 5:24 Results for this AM CDT procedure are in the results section. BASIC METABOLIC PANEL Routine 09/01/2018 5:24 Results for this AM CDT procedure are in the results section. HC COMPLETE BLD COUNT Routine 09/01/2018 5:24 Results for this W/AUTO DIFF AM CDT procedure are in the results section. HC COMPLETE BLD COUNT Routine 08/31/2018 5:05 Results for this W/AUTO DIFF AM CDT procedure are in the results section. US GUIDED VASCULAR Routine 08/30/2018 9:13 Results for this ACCESS AM CDT procedure are in the results section. IR PICC PLACEMENT Routine 08/30/2018 9:13 Results for this AM CDT procedure are in the results section. ESTIMATED GFR Routine 08/30/2018 5:38 Results for this AM CDT procedure are in the results section. BASIC METABOLIC PANEL Routine 08/30/2018 5:38 Results for this AM CDT procedure are in the results section. HC COMPLETE BLD COUNT Routine 08/30/2018 5:38 Results for this W/AUTO DIFF AM CDT procedure are in the results section. URINALYSIS SCREEN AND Routine 08/29/2018 3:15 Results for this MICROSCOPY, WITH REFLEX PM CDT procedure are in TO CULTURE the results section. GRAM STAIN Routine 08/29/2018 3:15 Results for this PM CDT procedure are in the results section. URINE CULTURE Routine 08/29/2018 3:15 Results for this PM CDT procedure are in the results section. ESTIMATED GFR STAT 08/29/2018 1:42 Results for this PM CDT procedure are in the results section. HC COMPLETE BLD COUNT STAT 08/29/2018 1:42 Results for this W/AUTO DIFF PM CDT procedure are in the results section. BASIC METABOLIC PANEL STAT 08/29/2018 1:42 Results for this PM CDT procedure are in the results section. ESTIMATED GFR STAT 07/23/2018 4:25 Results for this PM CDT procedure are in the results section. BASIC METABOLIC PANEL STAT 07/23/2018 4:25 Results for this PM CDT procedure are in the results section. LACTIC ACID LEVEL, STAT 07/23/2018 4:25 Results for this SEPSIS - NOW AND REPEAT PM CDT procedure are in 2X EVERY 3 HOURS the results section. HC COMPLETE BLD COUNT STAT 07/23/2018 4:25 Results for this W/AUTO DIFF PM CDT procedure are in the results section. URINALYSIS SCREEN AND Routine 07/23/2018 3:17 Results for this MICROSCOPY, WITH REFLEX PM CDT procedure are in TO CULTURE the results section. URINE CULTURE Routine 07/23/2018 3:11 Results for this PM CDT procedure are in the results section. GRAM STAIN Routine 07/23/2018 3:11 Results for this PM CDT procedure are in the results section. CT ABDOMEN PELVIS WO Routine 07/22/2018 3:08 Results for this CONTRAST PM CDT procedure are in the results section. TROPONIN Timed 07/20/2018 3:05 Results for this PM CDT procedure are in the results section. LACTIC ACID LEVEL, Timed 07/20/2018 3:05 Results for this SEPSIS - NOW AND REPEAT PM CDT procedure are in 2X EVERY 3 HOURS the results section. ECG 12-LEAD STAT 07/20/2018 2:48 Results for this PM CDT procedure are in the results section. CT HEAD WO CONTRAST STAT 07/20/2018 12:39 Results for this PM CDT procedure are in the results section. BLOOD CULTURE, AEROBIC & Routine 07/20/2018 12:15 Results for this ANAEROBIC PM CDT procedure are in the results section. THYROID STIMULATING STAT 07/20/2018 12:10 Results for this HORMONE PM CDT procedure are in the results section. T4, FREE STAT 07/20/2018 12:10 Results for this PM CDT procedure are in the results section. ALCOHOL LEVEL, BLOOD STAT 07/20/2018 12:10 Results for this PM CDT procedure are in the results section. SALICYLATE LEVEL STAT 07/20/2018 12:10 Results for this PM CDT procedure are in the results section. ACETAMINOPHEN LEVEL STAT 07/20/2018 12:10 Results for this PM CDT procedure are in the results section. ESTIMATED GFR STAT 07/20/2018 12:10 Results for this PM CDT procedure are in the results section. AMMONIA LEVEL STAT 07/20/2018 12:10 Results for this PM CDT procedure are in the results section. B NATRIURETIC PEPTIDE STAT 07/20/2018 12:10 Results for this PM CDT procedure are in the results section. TROPONIN STAT 07/20/2018 12:10 Results for this PM CDT procedure are in the results section. CREATINE KINASE, TOTAL STAT 07/20/2018 12:10 Results for this (CPK) PM CDT procedure are in the results section. LIPASE LEVEL STAT 07/20/2018 12:10 Results for this PM CDT procedure are in the results section. AMYLASE LEVEL STAT 07/20/2018 12:10 Results for this PM CDT procedure are in the results section. LACTIC ACID LEVEL, STAT 07/20/2018 12:10 Results for this SEPSIS - NOW AND REPEAT PM CDT procedure are in 2X EVERY 3 HOURS the results section. COMPREHENSIVE METABOLIC STAT 07/20/2018 12:10 Results for this PANEL PM CDT procedure are in the results section. HC COMPLETE BLD COUNT STAT 07/20/2018 12:10 Results for this W/AUTO DIFF PM CDT procedure are in the results section. BLOOD CULTURE, AEROBIC & Routine 07/20/2018 12:10 Results for this ANAEROBIC PM CDT procedure are in the results section. URINE DRUGS OF ABUSE STAT 07/20/2018 11:20 Results for this SCREEN AM CDT procedure are in the results section. URINALYSIS SCREEN AND STAT 07/20/2018 11:20 Results for this MICROSCOPY, WITH REFLEX AM CDT procedure are in TO CULTURE the results section. GRAM STAIN STAT 07/20/2018 11:20 Results for this AM CDT procedure are in the results section. URINE CULTURE STAT 07/20/2018 11:20 Results for this AM CDT procedure are in the results section. after 07/13/2018 Results Gram stain (07/13/2019 2:43 PM CDT)Only the most recent of18 resultswithin the time period is included. Gram stain result Occasional WBC's [facility] Many Gram positive cocci in pairs Comment: Specimen Information Specimen Source: Urine Specimen Site: Clean catch Specimen Urine Performing Organization Address City/State/Zipcode Phone Number [facility] DEPARTMENT OF PATHOLOGY AND [address] [place] [address] GENOMIC MEDICINE [facility] [address] [place] [address] CT Head Wo Contrast (07/13/2019 2:09 PM CDT)Only the most recent of2 resultswithin the time period is included. Specimen Narrative Performed At EXAMINATION:[facility] CLINICAL H[facility]:headache COMPARISON:CT of the head dated July 20, 2018 FINDINGS: There is no evidence of acute hemorrhage, mass lesion, or midline shift. The pedroza-white matter differentiation is preserved with no evidence of acute territorial infarction. Ventricles, sulci, and cisterns are age-appropriate in size and configuration. There is no extra-axial fluid collection. Visualized paranasal sinuses and mastoid air cells are clear. Bones, orbits, and soft tissues are unremarkable All CT images were acquired using low-dose technique with automated exposure control. IMPRESSION: No acute intracranial hemorrhage or mass effect. [facility]-[id number] Procedure Note Interface, Radiology Results Incoming - 07/13/2019 2:14 PM CDT EXAMINATION: CT HEAD WO CONTRAST CLINICAL HISTORY: headache COMPARISON: CT of the head dated July 20, 2018 FINDINGS: There is no evidence of acute hemorrhage, mass lesion, or midline shift. The pedroza-white matter differentiation is preserved with no evidence of acute territorial infarction. Ventricles, sulci, and cisterns are age-appropriate in size and configuration. There is no extra-axial fluid collection. Visualized paranasal sinuses and mastoid air cells are clear. Bones, orbits, and soft tissues are unremarkable All CT images were acquired using low-dose technique with automated exposure control. IMPRESSION: No acute intracranial hemorrhage or mass effect. [facility]-[id number] Performing Organization Address City/[facility]/Zipcode Phone Number [facility] [address] [place] [address] Respiratory pathogen panel (07/13/2019 1:58 PM CDT) Respiratory Negative for all pathogens tested: [place] pathogen panel Negative for Adenovirus JAINISM Negative for Coronavirus HKU1 [facility] Negative for Coronavirus NL63 Negative for Coronavirus 229E Negative for Coronavirus OC43 Negative for Human Metapneumovirus Negative for Rhinovirus/Enterovirus Negative for Influenza A Negative for Influenza A/H1 Negative for Influenza A/H3 Negative for Influenza A/H1-2009 Negative for Influenza B Negative for Parainfluenza Virus 1 Negative for Parainfluenza Virus 2 Negative for Parainfluenza Virus 3 Negative for Parainfluenza Virus 4 Negative for Respiratory Syncytial Virus Negative for Bordetella pertussis Negative for Chlamydophila pneumoniae Negative for Mycoplasma pneumoniae This real-time PCR assay detects the presence of nucleic acids (RNA or DNA) for the respiratory pathogens listed. A result of "Not-detected" does not exclude the possibility of the presence of one or more pathogens at concentrations less than the detectable limits of the assay. Comment: Specimen Information Specimen Source: Nares Specimen Site: Left Specimen Nares - Left Performing Organization Address City/State/Zipcode Phone Number [facility] DEPARTMENT OF PATHOLOGY AND [address] [place] [id number] [place] [phone] Influenza antigen test, reflex negative to RPP (07/13/2019 1:58 PM CDT) Influenza antigen Negative for Influenza A/B antigen. [facility] Comment: [place] Specimen Information [facility] Specimen Source: Nares Specimen Site: Left Specimen Nares - Left Performing Organization Address [facility] Phone Number [facility] DEPARTMENT OF PATHOLOGY [address] [place] [address] Group A strep, rapid antigen (07/13/2019 1:58 PM CDT) Pathologist [facility] Group A strep, Negative for Group A Streptococcus antigen. [facility] rapid antigen Comment: [place] result Specimen Information [facility] Specimen Source: Throat Specimen Site: Not otherwise specified Specimen Throat - Not otherwise specified Performing Organization Address [facility] Cent[facility]ode Phone Number [facility] DEPARTMENT OF PATHOLOGY [address] [place] [address] XR Chest 1 Vw Portable (07/13/2019 1:46 PM CDT) Specimen Narrative Performed At EXAMINATION:XR CHEST 1 VW PORTABLE [facility] CLINICAL HISTORY:cough IMPRESSION: Heart and mediastinum are normal. Lungs are clear. When compared to prior study of 03/19/2018, hardware has been removed from the left clavicle. [facility]-[id number] Procedure Note Hm Interface, Radiology Results Incoming - 07/13/2019 2:00 PM CDT EXAMINATION: XR CHEST 1 VW PORTABLE CLINICAL HISTORY: cough IMPRESSION: Heart and mediastinum are normal. Lungs are clear. When compared to prior study of 03/19/2018, hardware has been removed from the left clavicle. [facility]-[id number] Performing Organization Address City/[facility]/Zipcode Phone Number [facility] [address] [place] [address] Urinalysis screen and microscopy, with reflex to culture (07/13/2019 1:38 PM CDT)Only the most recent of18 resultswithin the time period is included. Specimen site Clean catch [facility] Color, UA Sharonda [facility] Appearance, UA Cloudy [facility] Specific gravity, UA 1.019 1.001 - 1.030 [facility] pH, UA 5.0 5.0 - 9.0 [facility] Protein, UA 1+ (A) Negative [facility] Glucose, UA Negative Negative [facility] Ketones, UA Negative Negative [facility] Bilirubin, UA Negative Negative [facility] Blood, UA Moderate (A) Negative [facility] Nitrite, UA Negative Negative [facility] Urobilinogen, UA <2.0 <2.0 E.U./dL [facility] Leukocyte esterase, Large (A) Negative [facility] Epithelial cells, UA <1 /HPF [facility] WBC, UA 23 (H) 0 - 4 /HPF [facility] RBC, UA 2 0 - 5 /HPF [facility] Bacteria, UA None seen None seen [facility] Yeast, UA None seen [facility] Yeast with None seen [facility] pseudohyphae, UA [facility] Specimen Urine Performing Organization Address City/State/Zipcode Phone Number [facility] DEPARTMENT OF PATHOLOGY [address] [facility] [place] [address] Estimated GFR (07/13/2019 1:38 PM CDT)Only the most recent of45 resultswithin the time period is included. [facility] Estimated GFR 82 mL/min/1.73 [facility] Comment: m2 [place] CatergoryUnitsInterpretation HOSPITAL G1 >=90 Normal or high G2 60-89Mildly decreased [id number] to moderately decreased [id number] to severely decreased G4 15-29Severely decreased G5 <15Kidney failure The eGFR was calculated using the Chronic Kidney Disease Epidemiology Collaboration (CKD-EPI) equation. Interpretation is based on recommendations of the National Kidney Foundation-Kidney Disease Outcomes Quality Initiative (NKF-KDOQI) published in 2014. Specimen Plasma specimen Performing Organization Address City/State/Zipcode Phone Number [facility] DEPARTMENT OF PATHOLOGY [address] [place] [address] Troponin (07/13/2019 1:38 PM CDT)Only the most recent of7 resultswithin the time period is included. [facility] Troponin 0.006 0.000 - 0.040 [facility] Comment: ng/mL [facility] changed methodology effective: HOSPITAL 03/06/2019 at 10:00 am The new method has a 99th percentile cutoff of 0.040 ng/mL Specimen Plasma specimen Performing Organization Address City/[facility] Centercode Phone Number [facility] DEPARTMENT OF PATHOLOGY [address] [place] [address] CBC with platelet and differential (07/13/2019 1:38 PM CDT)Only the most recent of46 resultswithin the time period is included. [facility] WBC 5.3 4.5 - 11.0 k/uL [facility] RBC 3.69 (L) 4.20 - 5.50 [facility] m/uL [facility] HGB 11.4 (L) 12.0 - 16.0 [facility] g/dL [facility] HCT 34.4 (L) 37.0 - 47.0 % [facility] MCV 93.2 82.0 - 100.0 fL [facility] MCH 30.9 27.0 - 34.0 pg [facility] MCHC 33.1 31.0 - 37.0 [facility] g/dL [facility] RDW - SD 42.3 37.0 - 55.0 fL [facility] MPV 10.1 6.9 - 11.0 fL [facility] Platelet count 153 150 - 400 K/uL [facility] Nucleated RBC 0.00 /100 WBC [facility] Neutrophils 82.8 (H) 39.0 - 69.0 % [facility] Lymphocytes 8.1 (L) 25.0 - 45.0 % [facility] Monocytes 7.5 0.0 - 10.0 % [facility] Eosinophils 0.4 0.0 - 5.0 % [facility] Basophils 0.6 0.0 - 1.0 % [facility] Immature granulocytes 0.6 0.0 - 1.0 % [facility] Specimen Blood Performing Organization Address City/[facility]/Zipcode Phone Number [facility] DEPARTMENT OF PATHOLOGY [address] [place] [address] [place] [address] HOSPITAL Lipase level (07/13/2019 1:38 PM CDT)Only the most recent of6 resultswithin the time period is included. Lipase 9 (A) 13 - 60 U/L [facility] Specimen Plasma specimen Performing Organization Address City/[facility]/Zipcode Phone Number [facility] DEPARTMENT OF PATHOLOGY [address] [place] [address] Creatine kinase, total (CPK) (07/13/2019 1:38 PM CDT)Only the most recent of2 resultswithin the time period is included. Creatine kinase 32 26 - 192 U/L [facility] Specimen Plasma specimen Performing Organization Address City/[facility]/Zipcode Phone Number [facility] DEPARTMENT OF PATHOLOGY [address] [place] [address] [facility] [address] Comprehensive metabolic panel (07/13/2019 1:38 PM CDT)Only the most recent of30 resultswithin the time period is included. Sodium 139 135 - 148 mEq/L [facility] Potassium 3.8 3.5 - 5.0 mEq/L [facility] Chloride 101 98 - 112 mEq/L [facility] CO2 24 24 - 31 mEq/L [facility] Anion gap 14@ANIO 7 - 15 mEq/L [facility] BUN 12 8 - 23 mg/dL [facility] Creatinine 0.73 0.50 - 0.90 [facility] mg/dL [facility] Glucose 117 (H) 65 - 99 mg/dL [facility] Calcium 9.6 8.8 - 10.2 mg/dL [facility] Protein 6.3 6.3 - 8.3 g/dL [facility] Albumin 3.6 3.5 - 5.0 g/dL [facility] A/G ratio 1.3 0.7 - 3.8 [facility] Alkaline phosphatase 119 (H) 35 - 104 U/L [facility] AST 22 10 - 35 U/L [facility] ALT 13 5 - 50 U/L [facility] Total bilirubin 0.4 0.2 - 1.2 mg/dL [facility] Specimen Plasma specimen Performing Organization Address City/State/Zipcode Phone Number [facility] DEPARTMENT OF PATHOLOGY [address] [place] [address] [facility] [address] ECG ED Preliminary Interpretation - Not an Order (07/13/2019 1:17 PM CDT)Only the most recent of3 resultswithin the time period is included. Narrative Performed At Sharita Coreas PA-C 07/13/20198:09 PM ECG ED Preliminary Interpretation - Not an Order Performed by: Sharita Coreas PA-C Authorized by: Cali Ch MD ECG reviewed by ED Physician in the absence of a assistant professor of anthropology: yes Rate: ECG rate:60 ECG rate assessment: normal Rhythm: Rhythm: sinus rhythm QRS: QRS intervals:Normal Conduction: Conduction: normal ST segments: ST segments:Normal T waves: T waves: normal Manual differential (07/01/2019 5:30 AM CDT)Only the most recent of5 resultswithin the time period is included. Manual differential PERFORMED [facility] Neutrophils 62.0 39.0 - 69.0 % [facility] Lymphocytes 12.0 (L) 25.0 - 45.0 % [facility] Monocytes 16.0 (H) 0.0 - 10.0 % [facility] Eosinophils 6.0 (H) 0.0 - 5.0 % [facility] Basophils 2.0 (H) 0.0 - 1.0 % [facility] Myelocytes 2 % [facility] Platelet slide review Maritza slt decr (A) [facility] Anisocytosis Moderate [facility] Polychromasia Moderate [facility] Spherocytes Occasional [facility] Ovalocytes Moderate [facility] Specimen Performing Organization Address City/State/Zipcode Phone Number [facility] DEPARTMENT OF PATHOLOGY [address] [place] [address] AND [facility]IC[facility] [address] [place] [address] HOSPITAL Blood culture, aerobic & anaerobic (06/30/2019 1:15 PM CDT)Only the most recent of21 resultswithin the time period is included. Blood culture No growth after [address] [facility] isolate Comment: HOSPITAL Specimen Information Specimen Source: Blood Specimen Site: Wrist, right Specimen Blood - Wrist, right Performing Organization Address City/State/Zipcode Phone Number [facility] DEPARTMENT OF PATHOLOGY AND [address] [place] [address] [place] [id number] [place] [address] Urine culture (06/30/2019 12:35 PM CDT)Only the most recent of17 resultswithin the time period is included. Urine culture Mixed shilpi <=10-3 col/cc [facility] isolate Comment: HOSPITAL Specimen Information Specimen Source: Urine Specimen Site: Clean catch Specimen Urine Performing Organization Address City/State/Zipcode Phone Number [facility] DEPARTMENT OF PATHOLOGY AND [address] [place] [address] [facility] [address] [place] [address] Basic metabolic panel (06/26/2019 5:43 AM CDT)Only the most recent of16 resultswithin the time period is included. Sodium 140 135 - 148 mEq/L [facility] Potassium 3.5 3.5 - 5.0 mEq/L [facility] Chloride 102 98 - 112 mEq/L [facility] CO2 29 24 - 31 mEq/L [facility] Anion gap 9@ANIO 7 - 15 mEq/L [facility] BUN 10 8 - 23 mg/dL [facility] Creatinine 0.59 0.50 - 0.90 mg/dL [facility] Glucose 86 65 - 99 mg/dL [facility] Calcium 8.6 (L) 8.8 - 10.2 mg/dL [facility] Specimen Plasma specimen Performing Organization Address City/[facility]/Zipcode Phone Number [facility] DEPARTMENT OF PATHOLOGY [address] [place] [address] [facility] [address] [place] [address] HOSPITAL XR Lumbar Spine 2 Or 3 Vw (06/23/2019 3:27 PM CDT) Specimen Narrative Performed At EXAMINATION: XR LUMBAR SPINE 2 OR 3 VW [facility] CLINICAL HISTORY: Back painrisk factors (osteoporosis or chronic steroid use or elderly) COMPARISON:CT of abdomen and pelvis dated April 10, 2019 IMPRESSION: Frontal and lateral views of the lumbar spine were obtained. There is a compression fracture at L1 with 50% loss of vertebral body height. There is mild compression loss of vertebral body height at T10 and T11 by 10%. Comparison with prior CT abdomen and pelvis dated April 10, 2019 shows that these compression deformities are stable. No new acute fractures are appreciated. Visualized upper sacrum is intact. There is mild rightward scoliosis at L4. Visualized upper sacrum is grossly intact. [facility] [facility]-[id number] Procedure Note Hm Interface, Radiology Results Incoming - 06/23/2019 4:19 PM CDT EXAMINATION: XR LUMBAR SPINE 2 OR 3 VW CLINICAL HISTORY: Back pain risk factors (osteoporosis or chronic steroid use or elderly) COMPARISON: CT of abdomen and pelvis dated April 10, 2019 IMPRESSION: Frontal and lateral views of the lumbar spine were obtained. There is a compression fracture at L1 with 50% loss of vertebral body height. There is mild compression loss of vertebral body height at T10 and T11 by 10%. Comparison with prior CT abdomen and pelvis dated April 10, 2019 shows that these compression deformities are stable. No new acute fractures are appreciated. Visualized upper sacrum is intact. There is mild rightward scoliosis at L4. Visualized upper sacrum is grossly intact. [facility]-[id number] Performing Organization Address [facility] Cent[facility]ode Phone Number [facility] [address] [place] [address] ECG 12 lead (06/23/2019 10:13 AM CDT)Only the most recent of4 resultswithin the time period is included. Ventricular rate 70 [facility] Atrial rate 70 [facility] MUSE [place] interval 190 [facility] QRSD interval 80 [facility] QT interval 432 [facility] QTC interval 466 [facility] P axis 1 54 [facility] QRS axis 1 4 [facility] T wave axis 33 [facility] EKG impression Normal sinus [facility] MUSE rhythm-Normal ECG-In automated comparison with ECG of 22-JUN-2019 17:16,-No significant change was found- Specimen Narrative Performed At Performing Organization Address City/[facility] Centercode Phone Number [facility] MUSE [address] [place] [address] Lactic acid level, SEPSIS - Now and repeat 2x every 3 hours (06/23/2019 6:17 AM CDT)Only the most recent of26 resultswithin the time period is included. Pathologist [facility] [place] Lactic acid 0.9 0.5 - 2.2 mmol/L [facility] Specimen Plasma specimen Performing Organization Address City/[facility]/Zipcode Phone Number [facility] DEPARTMENT OF PATHOLOGY [address] [place] [id number] AND GENOMIC MEDICINE [facility] [address] [place] [address] [facility] XR Abdomen 1 Vw (06/07/2019 12:07 PM CDT) Specimen Narrative Performed At EXAMINATION:XR ABDOMEN 1 VW [facility] CLINICAL HISTORY:constipation COMPARISON:None. IMPRESSION: 1.Nonobstructive bowel gas pattern. 2.Status post cholecystectomy. 3.Advanced degenerative changes of the visualized osseous structures. 4.Status post intramedullary cris fixation of the right femur, partially visualized, with no perihardware lucency or evidence of hardware failure. Surgical clips seen in the right deep pelvis. 5.The visualized lung bases are clear. [id number] Procedure Note Hm Interface, Radiology Results Incoming - 06/07/2019 12:18 PM CDT EXAMINATION: XR ABDOMEN 1 VW CLINICAL HISTORY: constipation COMPARISON: None. IMPRESSION: 1. Nonobstructive bowel gas pattern. 2. Status post cholecystectomy. 3. Advanced degenerative changes of the visualized osseous structures. 4. Status post intramedullary cris fixation of the right femur, partially visualized, with no perihardware lucency or evidence of hardware failure. Surgical clips seen in the right deep pelvis. 5. The visualized lung bases are clear. [facility]-[id number] Performing Organization Address City/State/Zipcode Phone Number [facility] [address] [place] [address] CT Renal Stone Protocol (06/03/2019 2:45 PM CDT)Only the most recent of2 resultswithin the time period is included. Specimen Narrative Performed At EXAMINATION:CT RENAL STONE PROTOCOL [facility] CLINICAL HISTORY:pelvic pain TECHNIQUE:Multiple axial images of the abdomen and pelvis were obtained without intravenous administration of iodinated contrast. Sagittal and coronal computerized reformatted images were also obtained. The lack of intravenous contrast reduces the sensitivity of detecting solid organ disease. CT imaging was performed with iterative reconstruction techniques and/or automated exposure control to reduce radiation dose. COMPARISON:05/26/2019 FINDINGS: Several renal cysts are again seen bilaterally, characterization suboptimal without contrast. A 1 cm isodense lesion in the left upper pole is stable and probably a proteinaceous/hemorrhagic cysts. No nephrolithiasis, hydronephrosis, or perinephric stranding. Bladder is nondistended. Uterus is absent. No adnexal mass. Status post Lubna-en-Y gastric bypass surgery. Small hiatal hernia. No bowel obstruction. Appendix is normal. No free fluid or free air. Liver and spleen unremarkable. Pancreatic atrophy. Gallbladder is absent. Moderately calcified distal aorta without aneurysm. Osteopenic and degenerative changes in the bones. Pronounced right hip osteoarthritis. Intramedullary nail partly seen in the right femur. Stable moderate L1 compression deformity. IMPRESSION: No evidence of acute process. [facility]-[id number] Procedure Note Interface, Radiology Results Incoming - 06/03/2019 2:55 PM CDT EXAMINATION: CT RENAL STONE PROTOCOL CLINICAL HISTORY: pelvic pain TECHNIQUE: Multiple axial images of the abdomen and pelvis were obtained without intravenous administration of iodinated contrast. Sagittal and coronal computerized reformatted images were also obtained. The lack of intravenous contrast reduces the sensitivity of detecting solid organ disease. CT imaging was performed with iterative reconstruction techniques and/or automated exposure control to reduce radiation dose. COMPARISON: 05/26/2019 FINDINGS: Several renal cysts are again seen bilaterally, characterization suboptimal without contrast. A 1 cm isodense lesion in the left upper pole is stable and probably a proteinaceous/hemorrhagic cysts. No nephrolithiasis, hydronephrosis, or perinephric stranding. Bladder is nondistended. Uterus is absent. No adnexal mass. Status post Lub[place]-en-Y gastric bypass surgery. Small hiatal hernia. No bowel obstruction. Appendix is normal. No free fluid or free air. Liver and spleen unremarkable. Pancreatic atrophy. Gallbladder is absent. Moderately calcified distal aorta without aneurysm. Osteopenic and degenerative changes in the bones. Pronounced right hip osteoarthritis. Intramedullary nail partly seen in the right femur. Stable moderate L1 compression deformity. IMPRESSION: No evidence of acute process. [facility]-[id number] Performing Organization Address City/[facility]/Zipcode Phone Number [facility] [address] [place] [address] Magnesium level (05/15/2019 5:20 AM CDT)Only the most recent of7 resultswithin the time period is included. Magnesium 2.0 1.6 - 2.4 mg/dL [facility] Specimen Plasma specimen Performing Organization Address City/[facility]/Zipcode Phone Number [facility] DEPARTMENT OF PATHOLOGY [address] [place] [address] AND GENOMIC MEDICINE [facility] [address] Partial thromboplastin time, activated (05/13/2019 5:35 PM CDT)Only the most recent of2 resultswithin the time period is included. PTT 26.4 23.0 - [address].0 [facility] Comment: [facility] PTT therapeutic range for unfractionated heparin is HOSPITAL 61.0-112.0 seconds which corresponds to Anti-Xa 0.3-0.7 U/ml. Specimen Blood Performing Organization Address City/State/Zipcode Phone Number [facility] DEPARTMENT OF PATHOLOGY [id number] [place] [address] Prothrombin time with INR (05/13/2019 5:35 PM CDT)Only the most recent of3 resultswithin the time period is included. Pathologist [facility] [place] Prothrombin time 12.6 11.5 - 14.5 [facility] INR 1.0 [place] Comment: [facility]AIN[facility] International Normalized Ratio (INR) is a therapeutic [facility] monitoring tool for patients who are stable on oral anticoagulant therapy. An INR of 2.0-3.0 is suggested for deep vein thrombosis/pulmonary embolism. Specimen Blood Performing Organization Address City/[facility] Centercode Phone Number [facility] DEPARTMENT OF PATHOLOGY [id number] [place] [address] IR PICC Placement (04/16/2019 2:03 PM CDT)Only the most recent of2 resultswithin the time period is included. Specimen Narrative Performed At [facility] Placement of a right upper extremity PICC. Clinical Indication Central venous access for IV antibiotics Anesthesia Lidocaine 1%. Sedation None Technique Written informed consent was obtained prior to the procedure. All elements of maximal sterile barrier technique were followed. The right upper extremity was sterilely prepared and draped in the routine manner. Lidocaine 1% was used for local anesthetic. Using real-time ultrasound guidance, a 21-gauge micropuncture needle was used to access the right brachial vein. A 0.018 inch guidewire was advanced centrally to the right atrium under fluoroscopy. The needle was removed and a 5.5-Spanish peel-away sheath was then placed. Under ultrasound guidance, documentation of vessel patency, needle access with permanent recording, and reporting are performed followed by placement of a sheath in the rightbrachial vein. A 38 cm long 5-Spanish dual-lumen Power PICC was then deployed over the guidewire and through the peel-away sheath. The catheter tip was placed at the right atrium/superior vena cava junction under fluoroscopic guidance. All ports were tested and demonstrate adequate flow. The catheter was secured to then skin using 2-0 silk suture. The patient tolerated the procedure well. Complications None. Radiation dose Ka,r=13 mGy Impression: Successful fluoroscopic-guided placement of a 38 cm long 5 Spanish dual-lumen Power PICC via the right brachial vein. The catheter tip lies at the right atrium/superior vena cava junction and is ready for use. [id number] Procedure Note Hm Interface, Radiology Results Incoming - 04/16/2019 2:15 PM CDT Procedure Placement of a right upper extremity PICC. Clinical Indication Central venous access for IV antibiotics Anesthesia Lidocaine 1%. Sedation None Technique Written informed consent was obtained prior to the procedure. All elements of maximal sterile barrier technique were followed. The right upper extremity was sterilely prepared and draped in the routine manner. Lidocaine 1% was used for local anesthetic. Using real-time ultrasound guidance, a 21-gauge micropuncture needle was used to access the right brachial vein. A 0.018 inch guidewire was advanced centrally to the right atrium under fluoroscopy. The needle was removed and a 5.5-Spanish peel-away sheath was then placed. Under ultrasound guidance, documentation of vessel patency, needle access with permanent recording, and reporting are performed followed by placement of a sheath in the right brachial vein. A 38 cm long 5-Spanish dual-lumen Power PICC was then deployed over the guidewire and through the peel-away sheath. The catheter tip was placed at the right atrium/superior vena cava junction under fluoroscopic guidance. All ports were tested and demonstrate adequate flow. The catheter was secured to then skin using 2-0 silk suture. The patient tolerated the procedure well. Complications None. Radiation dose Ka,r=13 mGy Impression: Successful fluoroscopic-guided placement of a 38 cm long 5 Spanish dual-lumen Power PICC via the right brachial vein. The catheter tip lies at the right atrium/superior vena cava junction and is ready for use. [id number] Performing Organization Address City/State/Zipcode Phone Number [facility] [address] [place] [id number] C difficile toxin (04/16/2019 10:26 AM CDT) Pathologist [facility] [place] Clostridium Positive for C. difficile toxin (A) [facility] difficile toxin Comment: HOSPITAL Specimen Information Specimen Source: Stool Specimen Site: Nonpreserved Specimen Stool - Nonpreserved Performing Organization Address City/[facility] Centercode Phone Number [facility] DEPARTMENT OF PATHOLOGY AND [address] [place] [address] GENOMIC MEDICINE [address] [address] Procalcitonin (04/14/2019 1:00 PM CDT)Only the most recent of2 resultswithin the time period is included. Pathologist [facility] [place] Procalcitonin 0.39 (H) <=0.07 ng/mL [facility] Comment: INTERPRETIVE INFORMATION: Procalcitonin Procalcitonin > 2.00 ng/mL: Procalcitonin levels above 2.00 ng/mL on the first day of ICU admission represent a high risk for progression to severe sepsis and/or septic shock. Procalcitonin < 0.50 ng/mL: Procalcitonin levels below 0.50 ng/mL on the first day of ICU admission represent a low risk for progression to severe sepsis and/or septic shock. If the procalcitonin measurement is performed shortly after the systemic infection process has started (usually less than 6 hours), these values may still be low. As various non-infectious conditions are known to induce procalcitonin as well, procalcitonin levels between 0.5 ng/mL and 2.00 ng/mL should be reviewed carefully to take into account the specific clinical background and condition(s) of the individual patient. Performed at: [facility] [address] [facility] [address] Specimen Serum Performing Organization Address City/[facility]/Zipcode Phone Number [facility] [address] [place] [address] [facility] [address] [place] [address] Lactic acid level (04/14/2019 1:00 PM CDT)Only the most recent of5 resultswithin the time period is included. Pathologist [facility] [place] Lactic acid 1.7 0.5 - 2.2 mmol/L [facility] Specimen Plasma specimen Performing Organization Address City/[facility]/Zipcode Phone Number [facility] DEPARTMENT OF PATHOLOGY [id number] [place] [address] CBC hemogram (04/11/2019 5:18 AM CDT)Only the most recent of2 resultswithin the time period is included. WBC 5.8 4.5 - 11.0 k/uL [facility] RBC 2.78 (L) 4.20 - 5.50 m/uL [facility] HGB 8.5 (L) 12.0 - 16.0 g/dL [facility] HCT 28.3 (L) 37.0 - 47.0 % [facility] MCV 101.8 (H) 82.0 - 100.0 fL [facility] MCH 30.6 27.0 - 34.0 pg [facility] MCHC 30.0 (L) 31.0 - 37.0 g/dL [facility] RDW - SD 57.6 (H) 37.0 - 55.0 fL [facility] MPV 10.8 6.9 - 11.0 fL [facility] Platelet count 141 (L) 150 - 400 K/uL [facility] Nucleated RBC 0.00 /100 WBC [facility] Specimen Blood Performing Organization Address City/[facility]/Zipcode Phone Number [facility] DEPARTMENT OF PATHOLOGY [address] [place] [address] Abdomen Pelvis Wo Contrast (04/10/2019 8:52 PM CDT)Only the most recent of2 resultswithin the time period is included. Specimen Narrative Performed At EXAMINATION:CT ABDOMEN PELVIS WO CONTRAST HM [facility] CLINICAL HISTORY:Flank painrecurrent stone disease suspected TECHNIQUE: Multiple axial images of the abdomen and pelvis were obtained without intravenous administration of iodinated contrast. Sagittal and coronal computerized reformatted images were also obtained. The lack of intravenous contrast reduces the sensitivity of detecting solid organ disease. CT imaging was performed with iterative reconstruction techniques and/or automated exposure control to reduce radiation dose. COMPARISON:January 31, 2019 CT scan FINDINGS: Abdomen: Postoperative changes in the stomach and small bowel. There is increase in the amount gas and feces in the colon. No disproportionate dilatation of small bowel loops is seen. There has been a cholecystectomy. No focal lesions are seen in the liver, spleen, pancreas, or adrenal glands. The abdominal aorta is of normal caliber. There are no enlarged retroperitoneal lymph nodes. There are multiple cysts in the right kidney ranging in size up to 4.7 cm. These are not well characterized without intravenous contrast. There is no calculus or hydronephrosis on the right. Pelvis: 1. Artifact generated by hardware in the right hip. No pelvic sidewall mass or adenopathy. No CT findings of acute diverticulitis. IMPRESSION: No renal or ureteral calculus, or hydronephrosis. Postoperative changes in the stomach. No acute abnormality noted. [id number] Procedure Note Interface, Radiology Results - 04/11/2019 12:48 AM CDT EXAMINATION: CT ABDOMEN PELVIS WO CONTRAST CLINICAL HISTORY: Flank pain recurrent stone disease suspected TECHNIQUE: Multiple axial images of the abdomen and pelvis were obtained without intravenous administration of iodinated contrast. Sagittal and coronal computerized reformatted images were also obtained. The lack of intravenous contrast reduces the sensitivity of detecting solid organ disease. CT imaging was performed with iterative reconstruction techniques and/or automated exposure control to reduce radiation dose. COMPARISON: January 31, 2019 CT scan FINDINGS: Abdomen: Postoperative changes in the stomach and small bowel. There is increase in the amount gas and feces in the colon. No disproportionate dilatation of small bowel loops is seen. There has been a cholecystectomy. No focal lesions are seen in the liver, spleen, pancreas, or adrenal glands. The abdominal aorta is of normal caliber. There are no enlarged retroperitoneal lymph nodes. There are multiple cysts in the right kidney ranging in size up to 4.7 cm. These are not well characterized without intravenous contrast. There is no calculus or hydronephrosis on the right. Pelvis: 1. Artifact generated by hardware in the right hip. No pelvic sidewall mass or adenopathy. No CT findings of acute diverticulitis. IMPRESSION: No renal or ureteral calculus, or hydronephrosis. Postoperative changes in the stomach. No acute abnormality noted. [id number] Performing Organization Address [facility]/Zipcode Phone Number [facility] [address] [place] [address] Phosphorus level (02/07/2019 5:45 AM CDT)Only the most recent of6 resultswithin the time period is included. Phosphorus 2.5 2.4 - 4.5 mg/dL [facility] Specimen Plasma specimen Performing Organization Address [facility] Cent[facility]ode Phone Number [facility] DEPARTMENT OF PATHOLOGY [address] [place] [address] AND GENOMIC MEDICINE [facility] [address] [place] [address] HOSPITAL Us duplex venous lower extremity (02/06/2019 10:55 PM CDT) Specimen Narrative Performed At EXAMINATION:US DUPLEX VENOUS LOWER EXTREMITY BILATERAL [facility] CLINICAL HISTORY:leg pain COMPARISON:None. TECHNIQUE:Grayscale, color Doppler, and spectral waveform analysis of the bilateral lower extremity deep venous systems was performed. The bilateral common femoral, superficial femoral, proximal deep femoral, greater saphenous, and popliteal veins were evaluated. The calf vessels were also evaluated. FINDINGS: The bilateral common femoral, superficial femoral, and popliteal veins are compressible. They demonstrate normal venous waveforms and response to augmentation. There is flow in the visualized calf veins. IMPRESSION: No evidence of deep venous thrombosis. [facility]-[id number] Procedure Note Interface, Radiology Results Incoming - 02/07/2019 2:14 AM CDT EXAMINATION: US DUPLEX VENOUS LOWER EXTREMITY BILATERAL CLINICAL HISTORY: leg pain COMPARISON: None. TECHNIQUE: Grayscale, color Doppler, and spectral waveform analysis of the bilateral lower extremity deep venous systems was performed. The bilateral common femoral, superficial femoral, proximal deep femoral, greater saphenous, and popliteal veins were evaluated. The calf vessels were also evaluated. FINDINGS: The bilateral common femoral, superficial femoral, and popliteal veins are compressible. They demonstrate normal venous waveforms and response to augmentation. There is flow in the visualized calf veins. IMPRESSION: No evidence of deep venous thrombosis. [facility]-[id number] Performing Organization Address [facility]/Zipcode Phone Number [facility] [address] [place] [address] Gastrointestinal panel (02/01/2019 10:00 AM CDT) Gastrointestinal panel Positive for C. difficile toxin [place] [facility] Negative for all other pathogens tested: HOSPITAL Negative for Salmonella Negative for Campylobacter Negative for Diarrheagenic E coli/Shigella Negative for Shiga-like toxin-producing E coli Negative for Plesiomonas shigelloides Negative for Yersinia enterocolitica Negative for Vibrio species Negative for Cryptosporidium Negative for Giardia lamblia Negative for Cyclospora cayeteanensis Negative for Entamoeba histolytica Negative for Adenovirus F 40/41 Negative for Astrovirus Negative for Norovirus GI/GII Negative for Rotavirus A Negative for Sapovirus Negative for E coli 0157 This real-time PCR assay detects the presence of nucleic acids (RNA or DNA) for the gastrointestinal pathogens listed. A result of "Not-detected" does not exclude the possibility of the presence of one or more pathogens at concentrations less than the detectable limits of the assay. (A) Comment: Specimen Information Specimen Source: Stool Specimen Site: Nonpreserved Specimen Stool - Nonpreserved Performing Organization Address City/State/Zipcode Phone Number [facility] DEPARTMENT OF PATHOLOGY AND [address] [place] [address] GENOMIC MEDICINE [address] [address] [address] Abdomen Pelvis W Contrast (01/31/2019 5:40 PM CDT)Only the most recent of2 resultswithin the time period is included. Specimen Narrative Performed At EXAMINATION:CT ABDOMEN PELVIS W CONTRAST [facility] CLINICAL HISTORY:abdominal painvomiting COMPARISON:CT abdomen and pelvis with contrast dated 11/17/2018 TECHNIQUE:CT of the abdomen and pelvis with intravenous contrast. CT imaging was performed with iterative reconstruction techniques and/or automated exposure control to reduce radiation dose. FINDINGS: LOWER THORAX:There are coronary artery calcifications.There is no pericardial effusion. There is minimal atelectasis/scarring at the lung bases.There is no pleural effusion. HEPATOBILIARY:The liver appears unremarkable.The gallbladder appears unremarkable.There is no biliary ductal dilatation. SPLEEN:No splenomegaly. PANCREAS:No focal masses or ductal dilation. ADRENALS:No adrenal nodules. KIDNEYS:There is bilateral renal cortical scarring and perirenal stranding. There are multiple unchanged bilateral renal cysts. There is no definite suspicious solid mass.There is no nephroureterolithiasis.There is no hydroureter/hydronephrosis. PELVIC ORGANS:There is mild circumferential bladder wall thickening, which may reflect a combination of underdistention and possible cystitis given the presence of trace pericystic fluid. There is no definite focal mural lesion of the bladder wall. There is no intravesicular gas or other evidence of entero/colovesicular fistula. There is no radiodense cystolithiasis.Patient is status post hysterectomy. The bilateral adnexal regions appear grossly unremarkable. There are a few calcified phleboliths of the gonadal and pelvic veins. GI TRACT:There is a small hiatal hernia.Patient is status post Lubna-en-Y gastric bypass surgery. There is mildly increased luminal fluid within segments of small bowel, as well as moderately increased gas and fluid throughout the colon and rectum. There is no definite pathologic gastrointestinal wall thickening. There is no pneumatosis intestinalis. There is no definite disproportional gastrointestinal distention to suggest mechanical obstruction. The appendix appears normal. PERITONEUM/RETROPERITONEUM:There is no free intraperitoneal air.There is no significant free fluid. There is no focal drainable fluid collection. There is hazy opacity of the mid abdominal mesentery with multiple intermixed subcentimeter lymph nodes, nonspecific, possibly reflecting sequela of prior gastrointestinal surgery, infection/inflammation in this area, and/or mild mesenteric panniculitis (also known as sclerosing mesenteritis). LYMPHATIC: There are multiple subcentimeter mesenteric and retroperitoneal lymph nodes which do not meet CT size criteria for pathology. VESSELS: There is moderate atherosclerotic calcification of the arterial vasculature. The visceral arteries are patent. The portal, mesenteric, and splenic veins are patent. The hepatic veins are patent. BONES AND SOFT TISSUES:There is demineralization and degenerative change of the visualized skeleton with mild extra convex scoliosis of the lumbar spine. Patient is status post internal fixation of the right proximal femur. There is unchanged moderate compression deformity of the L1 vertebral body without significant retropulsion. There is no acute or suspicious osseous abnormality. Postsurgical changes are seen within the ventral abdominal wall. There is no significant hernia of the abdominal pelvic wall. There is no focal drainable fluid collection. IMPRESSION: Findings suggestive of mild infectious/inflammatory enterocolitis and mild ileus in the appropriate clinical context. No pneumatosis intestinalis or free intraperitoneal air. Status post Lubna-en-Y gastric bypass surgery without definite evidence of mechanical obstruction. [facility]-[id number] Procedure Note [facility], Radiology Results Incoming - 01/31/2019 6:02 PM CDT EXAMINATION: CT ABDOMEN PELVIS W CONTRAST CLINICAL HISTORY: abdominal pain vomiting COMPARISON: CT abdomen and pelvis with contrast dated 11/17/2018 TECHNIQUE: CT of the abdomen and pelvis with intravenous contrast. CT imaging was performed with iterative reconstruction techniques and/or automated exposure control to reduce radiation dose. FINDINGS: LOWER THORAX: There are coronary artery calcifications. There is no pericardial effusion. There is minimal atelectasis/scarring at the lung bases. There is no pleural effusion. HEPATOBILIARY: The liver appears unremarkable. The gallbladder appears unremarkable. There is no biliary ductal dilatation. SPLEEN: No splenomegaly. PANCREAS: No focal masses or ductal dilation. ADRENALS: No adrenal nodules. KIDNEYS: There is bilateral renal cortical scarring and perirenal stranding. There are multiple unchanged bilateral renal cysts. There is no definite suspicious solid mass. There is no nephroureterolithiasis. There is no hydroureter/hydronephrosis. PELVIC ORGANS: There is mild circumferential bladder wall thickening, which may reflect a combination of underdistention and possible cystitis given the presence of trace pericystic fluid. There is no definite focal mural lesion of the bladder wall. There is no intravesicular gas or other evidence of entero/colovesicular fistula. There is no radiodense cystolithiasis. Patient is status post hysterectomy. The bilateral adnexal regions appear grossly unremarkable. There are a few calcified phleboliths of the gonadal and pelvic veins. GI TRACT: There is a small hiatal hernia. Patient is status post Lubna-en-Y gastric bypass surgery. There is mildly increased luminal fluid within segments of small bowel, as well as moderately increased gas and fluid throughout the colon and rectum. There is no definite pathologic gastrointestinal wall thickening. There is no pneumatosis intestinalis. There is no definite disproportional gastrointestinal distention to suggest mechanical obstruction. The appendix appears normal. PERITONEUM/RETROPERITONEUM: There is no free intraperitoneal air. There is no significant free fluid. There is no focal drainable fluid collection. There is hazy opacity of the mid abdominal mesentery with multiple intermixed subcentimeter lymph nodes, nonspecific, possibly reflecting sequela of prior gastrointestinal surgery, infection/inflammation in this area, and/or mild mesenteric panniculitis (also known as sclerosing mesenteritis). LYMPHATIC: There are multiple subcentimeter mesenteric and retroperitoneal lymph nodes which do not meet CT size criteria for pathology. VESSELS: There is moderate atherosclerotic calcification of the arterial vasculature. The visceral arteries are patent. The portal, mesenteric, and splenic veins are patent. The hepatic veins are patent. BONES AND SOFT TISSUES: There is demineralization and degenerative change of the visualized skeleton with mild extra convex scoliosis of the lumbar spine. Patient is status post internal fixation of the right proximal femur. There is unchanged moderate compression deformity of the L1 vertebral body without significant retropulsion. There is no acute or suspicious osseous abnormality. Postsurgical changes are seen within the ventral abdominal wall. There is no significant hernia of the abdominal pelvic wall. There is no focal drainable fluid collection. IMPRESSION: Findings suggestive of mild infectious/inflammatory enterocolitis and mild ileus in the appropriate clinical context. No pneumatosis intestinalis or free intraperitoneal air. Status post Lubna-en-Y gastric bypass surgery without definite evidence of mechanical obstruction. [facility]-[id number] Performing Organization Address [facility] Cent[facility]ode Phone Number [facility] [address] [place] [address] B natriuretic peptide (01/31/2019 3:59 PM CDT)Only the most recent of2 resultswithin the time period is included. BNP 65 0 - 100 pg/mL [facility] Specimen Blood Performing Organization Address [facility] Centercook Phone Number [facility] DEPARTMENT OF PATHOLOGY [address] [place] [address] Ionized calcium (01/16/2019 4:40 AM CDT)Only the most recent of3 resultswithin the time period is included. pH 7.34 [facility] Ionized calcium 1.23 1.11 - 1.32 mmol/L [facility] Specimen Plasma specimen Performing Organization Address [facility]ercook Phone Number [facility] DEPARTMENT OF PATHOLOGY [address] [place] [address] Hemoglobin & hematocrit (12/31/2018 4:26 AM GROWTH HACKER) HGB 9.6 (L) 12.0 - 16.0 g/dL [facility] HCT 31.4 (L) 37.0 - 47.0 % [facility] Specimen Blood Performing Organization Address [facility] Phone Number [facility] DEPARTMENT OF PATHOLOGY AND [address] [place] [address] GENOMIC MEDICINE [facility] [address] [place] [address] [place] Pelvic Transabdominal (12/30/2018 9:52 AM GROWTH HACKER) Specimen Narrative Performed At EXAMINATION:US PELVIC TRANSABDOMINAL [facility] CLINICAL HISTORY:Pelvic painneg HCGgyn COMPARISON:None. TECHNIQUE:Transabdominal and endovaginal sonographic images of the pelvis were obtained. Grayscale, color Doppler, and spectral waveform analysis of the ovarian vessels was performed. IMPRESSION: 1.Status post hysterectomy and bilateral nephrectomy. 2.No pelvic mass or fluid collection. 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 TECHNIQUE:Transabdominal and endovaginal sonographic images of the pelvis were obtained. Grayscale, color Doppler, and spectral waveform analysis of the ovarian vessels was performed. IMPRESSION: 1. Status post hysterectomy and bilateral nephrectomy. 2. No pelvic mass or fluid collection. Performing Organization Address [facility] Phone Number [facility] [address] [place] [phone] [place] Pelvic Transvaginal (12/30/2018 9:52 AM GROWTH HACKER) Specimen Narrative Performed At EXAMINATION:US PELVIC TRANSVAGINAL [facility] CLINICAL HISTORY:Pelvic painneg HCGgyn COMPARISON:None. TECHNIQUE:Transabdominal and endovaginal sonographic images of the pelvis were obtained. Grayscale, color Doppler, and spectral waveform analysis of the ovarian vessels was performed. IMPRESSION: 1.Status post hysterectomy and bilateral nephrectomy. 2.No pelvic mass or fluid collection. 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 TECHNIQUE:Transabdominal and endovaginal sonographic images of the pelvis were obtained. Grayscale, color Doppler, and spectral waveform analysis of the ovarian vessels was performed. IMPRESSION: 1. Status post hysterectomy and bilateral nephrectomy. 2. No pelvic mass or fluid collection. Performing Organization Address City/State/Zipcode Phone Number [facility] [address] [place] [phone] Folate level (12/29/2018 10:27 AM GROWTH HACKER) Folate 8.1 4.8 - 24.2 ng/mL [facility] Specimen Serum Performing Organization Address City/[facility]/Zipcode Phone Number [facility] DEPARTMENT OF PATHOLOGY AND [address] [place] [phone] Vitamin B12 level (12/29/2018 10:27 AM GROWTH HACKER) Vitamin B12 512 211 - 946 [facility] Comment: pg/mL HOSPITAL Significant overlap exists between normal and deficiency states. However, most patients with deficiencies will have Serum B12 <200 pg/mL. Specimen Serum Performing Organization Address [facility] Centercode Phone Number [facility] DEPARTMENT OF PATHOLOGY AND [address] [place] [address] POC glucose (12/29/2018 1:47 AM GROWTH HACKER) POC glucose 91 65 - 99 mg/dL [facility] Comment: HOSPITAL [facility] Notified RN Meter ID: [id number] [employer] Apprentice: Bibi Muse Specimen Performing Organization Address [facility] Centercode Phone Number [facility] DEPARTMENT OF PATHOLOGY AND [address] [place] [address] Cervical Spine Wo Contrast (12/28/2018 2:15 AM GROWTH HACKER) Specimen Narrative Performed At EXAMINATION: CT CERVICAL SPINE WO CONTRAST [facility] CLINICAL HISTORY: Neck pain hx of cervical and clavicle fracture COMPARISON:03/20/2018 TECHNIQUE: Noncontrast enhanced imaging through the cervical spine was performed with coronal and sagittal reconstructed images. CT imaging was performed with iterative reconstruction technique and/or automated exposure control to reduce radiation dose. IMPRESSION: Cervical lordosis is maintained. No acute fractures. There is 1.5 mm anterolisthesis of C4 on C5. Mild degenerative change of the cervical spine is seen. Moderate multilevel facet arthrosis is identified. Posterior disc osteophyte complexes are seen at C2-C3, C3-C4, C5-C6, and C6-C7. No spinal canal stenosis. There is mild right neural foraminal stenosis at C3-C4. No soft tissue abnormalities. Summary: No acute spine fractures. Mild degenerative changes of the cervical spine as detailed above. [facility]-[id number] Procedure Note Hm Interface, Radiology Results Incoming - 12/28/2018 2:26 AM GROWTH HACKER EXAMINATION: CT CERVICAL SPINE WO CONTRAST CLINICAL HISTORY: Neck pain hx of cervical and clavicle fracture COMPARISON: 03/20/2018 TECHNIQUE: Noncontrast enhanced imaging through the cervical spine was performed with coronal and sagittal reconstructed images. CT imaging was performed with iterative reconstruction technique and/or automated exposure control to reduce radiation dose. IMPRESSION: Cervical lordosis is maintained. No acute fractures. There is 1.5 mm anterolisthesis of C4 on C5. Mild degenerative change of the cervical spine is seen. Moderate multilevel facet arthrosis is identified. Posterior disc osteophyte complexes are seen at C2-C3, C3-C4, C5-C6, and C6-C7. No spinal canal stenosis. There is mild right neural foraminal stenosis at C3-C4. No soft tissue abnormalities. Summary: No acute spine fractures. Mild degenerative changes of the cervical spine as detailed above. [facility]-[id number] Performing Organization Address City/State/Zipcode Phone Number [facility] [address] [place] [address] [place] Guided Vascular Access (08/30/2018 9:13 AM CDT) Specimen Narrative Performed At PROCEDURE: SUZANNE Peripherally inserted central catheter (PICC) placement Performing Radiologist: Azam Ohara MD Assistants: None Pre Procedure Diagnosis: Urinary tract infection Post Procedure Diagnosis: Urinary tract infection Indication: IV access for fluids/medication/blood draws Complications: No immediate post procedure complications. IMPRESSION: 1.Technically successful insertion of a right sided dual lumen power injectable PICC. 2.The right basilic and brachial veins are patent and compressible on preprocedure ultrasound. PLAN: The PICC is ready for immediate use. PROCEDURE SUMMARY: 1.Venous access with ultrasound guidance 2.PICC insertion under fluoroscopic guidance PROCEDURE DETAILS: Pre-procedure: Comparison studies: None Written and informed consent for the procedure was obtained from the patient. Prophylactic antibiotics: None Preparation: The right upper extremity was prepared and draped using all elements of maximal sterile barrier technique including sterile gloves, sterile gown, catheter, mask, large sterile sheet, sterile ultrasound probe cover, hand hygiene and cutaneous antisepsis using chlorhexidine. Anesthesia/Sedation: Level of anesthesia: None (1% lidocaine only) Medications used: 1% lidocaine. Anesthesia administration: Pulse oximetry, heart rate, and blood pressure were continuously monitored by a radiology nurse and the performing provider. Duration of intraservice odqa-lg-wgwpgylxrfzcev/sedation: N/A Access: Local anesthesia was administered. The right basilic vein was evaluated with preprocedure ultrasound and noted to be patent. Real-time ultrasound was used to visualize needle entry into the vessel and a permanent image was stored. Vein accessed: Right basilic vein Access technique: 5 Spanish micropuncture set Venography: Vein accessed: N/A Indication for venography: Not performed Findings: N/A PICC placement: A 0.018 inch measuring wire was used to measure the intravascular distance. The catheter was trimmed to the appropriate length and placed into the vein under fluoroscopic guidance via a peel-away sheath. The catheter tip location was fluoroscopically verified and an image was archived. PICC placed: Bard Catheter size: 5 Spanish Catheter length: 36 cm Catheter tip position: Atriocaval junction Closure: The catheter was secured to the subcutaneous tissues and a sterile bandage was applied. Catheter securement technique: 2-0 silk Contrast: Contrast agent: None Contrast volume: N/A Radiation dose: Fluoroscopy time: 0.0 minutes Image hold: 1 Fluoroscopic images: 0 Kerma area product: 1.71 uGy-m2 Additional details: Additional description of procedure: N/A Additional findings: N/A Equipment details: N/A Estimated blood loss: Less than 10 cc [facility]-[id number] Procedure Note Hm Interface, Radiology Results Incoming - 08/30/2018 3:48 PM CDT PROCEDURE: Peripherally inserted central catheter (PICC) placement Performing Radiologist: Azam Ohara MD Assistants: None Pre Procedure Diagnosis: Urinary tract infection Post Procedure Diagnosis: Urinary tract infection Indication: IV access for fluids/medication/blood draws Complications: No immediate post procedure complications. IMPRESSION: 1. Technically successful insertion of a right sided dual lumen power injectable PICC. 2. The right basilic and brachial veins are patent and compressible on preprocedure ultrasound. PLAN: The PICC is ready for immediate use. PROCEDURE SUMMARY: 1. Venous access with ultrasound guidance 2. PICC insertion under fluoroscopic guidance PROCEDURE DETAILS: Pre-procedure: Comparison studies: None Written and informed consent for the procedure was obtained from the patient. Prophylactic antibiotics: None Preparation: The right upper extremity was prepared and draped using all elements of maximal sterile barrier technique including sterile gloves, sterile gown, catheter, mask, large sterile sheet, sterile ultrasound probe cover, hand hygiene and cutaneous antisepsis using chlorhexidine. Anesthesia/Sedation: Level of anesthesia: None (1% lidocaine only) Medications used: 1% lidocaine. Anesthesia administration: Pulse oximetry, heart rate, and blood pressure were continuously monitored by a radiology nurse and the performing provider. Duration of intraservice rubr-ex-dccw anesthesia/sedation: N/A Access: Local anesthesia was administered. The right basilic vein was evaluated with preprocedure ultrasound and noted to be patent. Real-time ultrasound was used to visualize needle entry into the vessel and a permanent image was stored. Vein accessed: Right basilic vein Access technique: 5 Spanish micropuncture set Venography: Vein accessed: N/A Indication for venography: Not performed Findings: N/A PICC placement: A 0.018 inch measuring wire was used to measure the intravascular distance. The catheter was trimmed to the appropriate length and placed into the vein under fluoroscopic guidance via a peel-away sheath. The catheter tip location was fluoroscopically verified and an image was archived. PICC placed: Bard Catheter size: 5 Spanish Catheter length: 36 cm Catheter tip position: Atriocaval junction Closure: The catheter was secured to the subcutaneous tissues and a sterile bandage was applied. Catheter securement technique: 2-0 silk Contrast: Contrast agent: None Contrast volume: N/A Radiation dose: Fluoroscopy time: 0.0 minutes Image hold: 1 Fluoroscopic images: 0 Kerma area product: 1.71 uGy-m2 Additional details: Additional description of procedure: N/A Additional findings: N/A Equipment details: N/A Estimated blood loss: Less than 10 cc [facility]-[id number] Performing Organization Address [facility] Phone Number [facility] [address] [place] [address] Thyroid stimulating hormone (07/20/2018 12:10 PM CDT) TSH 0.18 (L) 0.27 - 4.20 uIU/mL [facility] DEPARTMENT OF PATHOLOGY AND GENOMIC MEDICINE Specimen Plasma specimen Performing Organization Address [facility] Centercode Phone Number [facility] DEPARTMENT OF PATHOLOGY [address] [place] [address]. [place] [address] AND [employer] [facility] T4, free (07/20/2018 12:10 PM CDT) T4, free 1.6 0.9 - 1.7 ng/dL [facility] DEPARTMENT OF PATHOLOGY AND GENOMIC MEDICINE Specimen Plasma specimen Performing Organization Address [facility] Centercode Phone Number [facility] DEPARTMENT OF PATHOLOGY [address] [place] [address] AND [employer] [facility] Amylase level (07/20/2018 12:10 PM CDT) Amylase 6 13 - 73 U/L [facility] DEPARTMENT OF PATHOLOGY AND GENOMIC MEDICINE Specimen Plasma specimen Performing Organization Address [facility] Phone Number [facility] DEPARTMENT OF PATHOLOGY [address] [place] [address]. [place] [address] AND [facility] Ammonia level (07/20/2018 12:10 PM CDT) Ammonia 20 11 - 51 umol/L [facility] DEPARTMENT OF PATHOLOGY AND GENOMIC MEDICINE Specimen Plasma specimen Performing Organization Address [facility]ook Phone Number [facility] DEPARTMENT OF PATHOLOGY [address] [place] [address]. [place] [address] AND [facility] Alcohol level, blood (07/20/2018 12:10 PM CDT) Alcohol None Detected mg/dL [facility] DEPARTMENT OF Comment: PATHOLOGY AND Normal None Detected GENOMIC MEDICINE Legal Intoxication in [place]80 mg/dL (0.08%) - Whole Blood Toxic [id number] mg/dL (0.2%) Potentially Gwklj338 - 500 mg/dL (0.35 - 0.5%) Alcohol percent None Detected % [facility] DEPARTMENT OF PATHOLOGY AND GENOMIC MEDICINE Specimen Plasma specimen Performing Organization Address [facility] Phone Number [facility] DEPARTMENT OF PATHOLOGY [address] [place] [address]. [place] [id number] AND [facility] Acetaminophen level (07/20/2018 12:10 PM CDT) Acetaminophen level <8.3 10.0 - 30.0 [facility] DEPARTMENT OF Comment: ug/mL PATHOLOGY AND Therapeutic 10-30 ug/mL GENOMIC MEDICINE Possible Toxicity 150-200 ug/mL Probable Toxicity >200 ug/mL Specimen Plasma specimen Performing Organization Address [facility] Phone Number [facility] DEPARTMENT OF PATHOLOGY [address] [place] [address]. [place] [id number] AND [facility] Salicylate level (07/20/2018 12:10 PM CDT) Salicylate <0.4 (L) 3.0 - 30.0 mg/dL [facility] DEPARTMENT OF PATHOLOGY AND GENOMIC MEDICINE Specimen Plasma specimen Performing Organization Address [facility] Phone Number [facility] DEPARTMENT OF PATHOLOGY [address] [place] [address]. [place] [address] AND [facility] Urine drugs of abuse screen (07/20/2018 11:20 AM CDT) Amphetamine screen, Negative [facility] DEPARTMENT urine OF PATHOLOGY AND GENOMIC MEDICINE Barbiturate screen, Negative [facility] DEPARTMENT urine OF PATHOLOGY AND GENOMIC MEDICINE Benzodiazepine Positive (A) [facility] DEPARTMENT screen, urine OF PATHOLOGY AND GENOMIC MEDICINE Cannabinoid screen, Negative [facility] CENTER DEPARTMENT urine OF PATHOLOGY AND GENOMIC MEDICINE Cocaine screen, urine Negative [facility] DEPARTMENT OF PATHOLOGY AND GENOMIC MEDICINE Methadone metabolite Negative [facility] DEPARTMENT (EDDP), urine OF PATHOLOGY AND GENOMIC MEDICINE Opiates screen, urine Negative [facility] DEPARTMENT OF PATHOLOGY AND GENOMIC MEDICINE Phencyclidine screen, Negative [facility] DEPARTMENT urine OF PATHOLOGY AND GENOMIC MEDICINE Tricyclic screen, Negative [facility] DEPARTMENT urine Comment: OF PATHOLOGY AND Drug screen minimum concentration of detectability GENOMIC MEDICINE [id number] ng/mL Barbiturates 200 ng/mL Jknlkcqmxrlhquz481 ng/mL Xswfxnq601 ng/mL Qtiebkpvu136 ng/mL Wrcmrcs270 ng/mL Phencyclidine 25 ng/mL Mqeupxrylvmm00 ng/mL Zcjnjhjdct2668 ng/mL Negative test results indicates presumptive evidence of lack of clinically significant drug concentration in this urine specimen. Positive test results are presumptive evidence of clinically significant drug concentration in this urine specimen. Testing performed for medical purposes only. Specimen Urine Performing Organization Address City/State/Zipcode Phone Number [facility] DEPARTMENT OF PATHOLOGY [id number] [id number] AND [employer] MEDICINE after 07/13/2018 Insurance Payer Benefit Plan / Group Subscriber ID Effective Phone Address Type Dates MEDICARE MEDICARE PART A AND B xxxxxxxxxxx 2012-Pres [place], [place] Medicare ent BCBS BCBS OUT OF STATE xxxxxxxxxxxx 2017-Prese PPO nt [facility] xxxxxxxxx 2018-Prese PPO COMMERCIAL nt HMO/POS/PPO ([employer]) [address] [place] [id number] Advance Directives For more information, please contact: [phone] Type Date Recorded Patient Board Layer Explanation Advance Directives, 07/13/2019 2:11 PM Living Will and Medical Power of [employer] Advance Directives, 06/26/2018 5:16 PM Living Will and Medical Power of [employer] Maker Advance Directives, 07/23/2018 4:55 PM Living Will and Medical Power of [employer] Maker Advance Directives, 11/22/2018 1:29 PM MEDICAL POA-11/16/18 Living Will and Medical Power of [employer] Advance Directives, 02/17/2019 11:24 AM Living Will and Medical Power of Historic [employer] Maker Advance Directives, 06/03/2019 12:53 PM Living Will and Medical Power of Historic [employer] Maker Advance Directives, 06/11/2019 4:22 PM MEDICAL 11/16/18 Living Will and Medical Power of Historic [employer] Maker Advance Directives, 06/11/2019 4:23 PM ADV 06/21/18 Living Will and Medical Power of Historic [employer] Maker Advance Directives, 06/27/2019 1:33 PM ADVANCE DIRECTIVE Living Will and 06/21/2018 Medical Power of Historic [employer]othing [employer] Cost[employer] Maker Advance Directives, 06/30/2019 1:23 PM Living Will and Medical Power of [employer] Maker
--- OUTSIDE RECORDS SUMMARY | 2019-07-14 11:05 | XMS REPORT | Continuity of Care Document ---
:1945 Author Organization [employer] Information [employer] Interactive Care Team Providers Name Role Phone Ceradis Unavailable Unavailable Problems Problem Status Onset Classification Date Comments [...] - [place] Chronic pain Active Finding 12/14/[address] [facility] [address] syndrome [facility] [place] Medications Medication [...] Active [facility] [place] Metoprolol/[place] TWICE Active [facility] chlorothiazide DAILY 016 [facility] [place] Multivitamin DAILY Active [facility] [place] Omeprazole TWICE [facility] Magnesium DAILY 016 [facility] [place] Oxycodone TWICE Active [facility] Hcl/Acetaminophe DAILY 016 [facility] n [place] Alprazolam AT BEDTIME Active [facility] 016 [facility] [place] Allergies, Adverse Reactions, Alerts Substance Category Reaction Severity Reaction Status Date Comments Source type Reported prochlorperaz PYSCHOSIS Moderate Allergy to Active [facility] St[facility] ine Substance 8 [facility] [place] Immunizations Immunization Date Given Site Status Last Comments Source Updated Influenza Adult 09/05/2017 completed [facility] Vacc[facility] - [place] Results Order Name Results Value Reference Date Interpretation Comments Source Range Laboratory Magnesium 1.4 1.8 - 2.5 12/[address] [facility] [address] Studies Level /2018 [facility] [place] Laboratory Sodium Level 141 135 - 145 12/[address] [facility] [address] Studies /2018 [facility] [place] Laboratory Potassium 3.8 3.6 - 5.0 12/14 [facility] Studies Level /2018 [facility] [place] Laboratory Phosphorus 3.3 2.5 - 4.3 12/14 [facility] Studies Level /2017 [facility] [place] Laboratory Glucose Level 120 65 - 120 12/14 [facility]. Studies /2018 [facility] [place] Laboratory Estimat >90 90 12/14 [facility] Studies Glomerular /2017 [facility] Filtration [place] Rate Laboratory Creatinine 0.60 0.44 - 12/14 [facility] Studies 1.00 /2017 [facility] [place] Laboratory Chloride 107 101 - 111 12/14 [facility] Studies Level /2017 [facility] [place] Laboratory Carbon 27 21 - 31 12/14 [facility] Studies Dioxide Level /2017 [facility] [place] Laboratory Calcium Level 8.4 8.5 - 10.5 12/14 [facility]. Studies /2017 [facility] [place] Laboratory Blood Urea 7 6 - 20 12/14 [facility] Studies Nitrogen /2017 [facility] [place] Laboratory Albumin 2.4 3.2 - 5.5 12/14 [facility]. Studies /2018 [facility] [place] Laboratory White Blood 6.0 4.3 - 10.9 12/12 [facility] Studies Count /2017 [facility] [place] Laboratory Red Cell 14.9 12.1 - 12/12 [facility] Studies Distribution 15.2 /2017 [facility] Width [place] Laboratory Red Blood 2.97 3.86 - 12/12 [facility] Studies Count 4.86 /2017 [facility] [place] Laboratory Platelet 148 152 - 406 12/12 [facility] Studies Count /2017 [facility] [place] Laboratory Neutrophils % 82.7 41.7 - 12/12 [facility]. Studies 73.7 /2017 [facility] [place] Laboratory Monocytes % 12.1 3.3 - 12.3 12/12 [facility]. Studies /2018 [facility] [place] Laboratory Mean Platelet 8.2 7.6 - 11.3 12/12 [facility] Studies Volume /2018 [facility] [place] Laboratory Mean 92.4 80 - 100 12/12 [facility] Studies Corpuscular /2018 [facility] - Volume [place] Laboratory Mean 33.7 32.0 - 12/12 [facility] Studies Corpuscular 36.0 /2017 [facility] Hemoglobin [place] Concent Laboratory Mean 31.1 27.0 - 02 [facility] [address] Studies Corpuscular 35.0 /2017 [facility] - Hemoglobin [place] Laboratory Lymphocytes % 3.9 15.3 - 12/[address] [facility] [address] Studies 44.8 /2017 [facility] [place] Laboratory Hemoglobin 9.2 12.0 - 12/[address] [facility] [address] Studies 15.0 /2017 [facility] [place] Laboratory Hematocrit 27.4 36.0 - 12/[address] [facility] [address] Studies 45.0 /2017 [facility] [place] Laboratory Eosinophils % 1.1 0 - 4.4 12/[address] [facility] [address] Studies /2017 [facility] [place] Laboratory Basophils % 0.2 0 - 1.3 12/[address] [facility] [address] Studies /2017 [facility] [place] Laboratory Absolute 5.0 1.8 - 8.0 12/12 [facility]. Studies Neutrophil /2017 [facility] [place] Laboratory Absolute 0.7 0.1 - 1.3 12/12 [facility]. Studies Monocytes /2017 [facility] - (CBC) [place] Laboratory Absolute 0.2 0.7 - 4.9 12/[address] [facility] [address] Studies Lymphocytes /2017 [facility] (CBC) [place] Laboratory Absolute 0.1 0 - 0.5 12/12 [facility]. Studies Eosinophils /2017 [facility] - (CBC) [place] Laboratory Absolute 0.0 0 - 0.5 12/12 [facility]. Studies Basophils /2017 [facility] (CBC) [place] Laboratory Total 0.7 0.3 - 1.2 12/11 [facility]. Studies Bilirubin /2017 [facility] [place] Laboratory Serum Total 4.8 6.0 - 8.3 12/11 [facility] [address] Studies Protein /2017 [facility] [place] Laboratory Globulin 2.2 2.3 - 3.5 12/11 [facility] [address] Studies /2017 [facility] [place] Laboratory Aspartate 23 10 - 42 12/11 [facility]. Studies Amino Transf /2017 [facility] - (AST/SGOT) [place] Laboratory Alkaline 77 42 - 121 12/11 [facility]. Studies Phosphatase /2017 [facility] [place] Laboratory Albumin/Globu 1.2 1.1 - 1.8 12/11 [facility]. Studies north Ratio /2017 [facility] [place] Laboratory Alanine 17 10 - 60 12/11 [facility]. Studies Aminotransfer /2017 [facility] ase [place] (ALT/SGPT) Laboratory Blood Blood 12/10 St[facility] Studies Morphology Morphology /2017 [facility] - Comment Comment [place] Laboratory Creatine 74 22 - 269 12/09 St[facility] Studies Kinase /2017 [facility] [place] Laboratory Urine Yeast Urine Yeast 12/08 St[facility] Studies /2018 [facility] [place] Laboratory Urine WBC <5 12/08 St[facility] Studies /2018 [facility] [place] Laboratory Urine <5 12/08 St[facility] Studies Urothelial /2017 [facility] - Cells [place] Laboratory Urine <5 12/08 St. Studies Squamous /2018 [facility] Epithelial [place] Cells Laboratory Urine RBC Urine RBC 12/08 St[facility] Studies /2017 [facility] [place] Laboratory Urine Culture Urine 12/08 St. Studies Reflexed Culture /2017 [facility] Reflexed [place] Laboratory Urine Urine 12/08 St[facility] Studies Bacteria Bacteria /2017 [facility] [place] Laboratory Urine pH 6.0 12/08 St. Studies /2017 [facility] [place] Laboratory Urine 0.2 12/08 St[facility] Studies Urobilinogen /2017 [facility] [place] Laboratory Urine Total Urine Total 12/08 St[facility] Studies Protein Protein /2017 [facility] [place] Laboratory Urine 1.015 12/08 St. Studies Specific /2017 [facility] [place] Laboratory Urine Nitrite Urine 12/08 St[facility] Studies Nitrite /2017 [facility] [place] Laboratory Urine Urine 12/08 St[facility] Studies Leukocyte Leukocyte /2017 [facility] - Esterase Esterase [place] Laboratory Urine Ketones Urine 12/08 St[facility] Studies Ketones /2017 [facility] [place] Laboratory Urine Glucose Urine 12/08 St[facility] Studies Glucose /2017 [facility] [place] Laboratory Urine Color Urine Color 12/08 St. Studies /2018 [facility] [place] Laboratory Urine Blood Urine Blood 12/08 St[facility] Studies /2018 [facility] [place] Laboratory Urine Urine 12/08 St[facility] Studies Bilirubin Bilirubin /2017 [facility] [place] Laboratory Urine Urine 12/08 St[facility] Studies Appearance Appearance /2017 [facility] [place] Microbiolog Enterococcus Enterococcu 12/06 St. y Studies Faecium s Faecium /2017 [facility] [place] Laboratory Urine Urine 12/03 [facility] [address] Studies Phencyclidine Phencyclidi /2017 [facility] - Screen ne Screen [place] Laboratory Urine Urine 12/03 [facility] Studies Barbiturates Barbiturate /2017 [facility] - Screen s Screen [place] Laboratory Ur Ur 12/03 [facility] Studies Tetrahydrocan Tetrahydroc [facility] - nabinol (THC) annabinol [place] Scrn (THC) Scrn Laboratory Oxycodone Oxycodone 12/03. Studies Screen Screen [facility] [place] Laboratory Opiates Opiates 12/03 [facility] . Studies Screen Screen /2017 [facility] [place] Laboratory MDMA MDMA 12/03 [facility] Studies (Ecstasy) (Ecstasy) /2017 [facility] - Screen Screen [place] Laboratory Cocaine Cocaine 12/03 [facility] Studies Screen Screen /2017 [facility] [place] Laboratory Benzodiazepin Benzodiazep 12/03 [facility] Studies es Screen donte Screen [facility] [place] Laboratory Amphetamines Amphetamine 12/03 [facility] Studies Screen s Screen /2017 [facility] [place] Laboratory Segmented 82 40 - 80 12/03 [facility] . Studies Neutrophils /2017 [facility] [place] Laboratory Monocytes 3 0 - 10 12/03 [facility] . Studies /2017 [facility] [place] Laboratory Metamyelocyte 1 0 - 0 12/03 [facility] . Studies s /2017 [facility] [place] Laboratory Lymphocytes 5 15 - 42 12/03 [facility] . Studies /2017 [facility] [place] Laboratory Eosinophils 1 0 - 3 12/03 [facility] . Studies [facility] [place] Laboratory Dohle Bodies Dohle 12/03 [facility] . Studies Bodies /2017 [facility] [place] Laboratory Basophils 0 0 - 1 12/03 [facility] . Studies /2017 [facility] [place] Laboratory Band 8 0 - 1 12/03 [facility]. Studies Neutrophils [facility] [place] Laboratory Salicylates <4.0 12/03 [facility] . Studies Level /2017 [facility] [place] Laboratory Plasma/Serum <10 12/03 [facility]. Studies Blood Alcohol /2017 [facility] [place] Laboratory Acetaminophen 20.9 10 - 30 12/[address] [facility] [address] Studies Level /2018 [facility] [place] Laboratory Direct <0.1 0 - 0.2 12/03 [facility] Studies Bilirubin [facility] - [place] Laboratory Creatine 1.7 0.3 - 4.0 12/[address] [facility] [address] Studies Kinase MB /2017 [facility] [place] Laboratory Prothrombin 10.3 9.5 - 12.5 12/03 [facility] [address] Studies Time [facility] [place] Laboratory INR 0.87 12/[address] [facility] [address] Studies International /2017 [facility] - Normalized [place] Ratio Laboratory Activated 25.1 24.3 - 12/03 [facility] [address] Studies Partial 36.9 [facility] - Thromboplast [place] Time Laboratory B-Type 217 12/[address] [facility] [address] Studies Natriuretic [facility] Peptide [place] Laboratory Rapid <0.03 12/[address] [facility] [address] Studies Troponin I [facility] [place] Laboratory Lipase 12 22 - 51 12/[address] [facility] [address] Studies [facility] [place] Microbiolog Morganella Morganella 10/29 [facility] [address] y Studies Morganii Morganii [facility] [place] Microbiolog Enterococcus Enterococcu 10/29 [facility] [address] y Studies Faecium s Faecium [facility] [place] Laboratory Urine Urine 10/26 [facility] [address] Studies Amorphous Amorphous [facility] - Sediment Sediment [place] Laboratory Procalcitonin <0.05 10/26 [facility] [address] Studies [facility] [place] Laboratory Lactic Acid 9.9 4.5 - 19.8 10/26 [facility] [address] Studies Level [facility] [place] Pathology Reports No Data Provided for This Section Diagnostic Reports No Data Provided for This Section Consultation Notes No Data Provided for This Section Discharge Summaries No Data Provided for This Section History and Physicals No Data Provided for This Section Vital Signs Vital Sign Value Date Comments Source Temperature Oral (F) 98.6 F 12/14/[address] [facility] [place] Heart Rate 70 12/14/[address] [facility] [place] Respitory Rate 18 12/14/[address] [facility] [place] Systolic (mm Hg) 145 12/14/[address] [facility] [place] Diastolic (mm Hg) 63 12/14/[address] [facility] [place] Height 68 12/08/[address] [facility] [address] [facility] [place] Weight 190 12/08/2017 [facility] [place] Encounters Location Location Encounter Encounter Reason Attending ADM DC Status Source Details Type Number For Provider Date Date Visit [facility] [id number] 10/26 10/[address] [facility] [place] [facility] Registered [id number] 11[facility] [facility] [place] [facility] Departed [id number] 11/20 11/[address] [facility] [place] [facility] [id number] 12[facility]03 12/[address] [facility] [place] [facility] Departed [id number] 12/04 12/[address] [facility] [place] [facility] Discharged [id number] 12/08 12/[address] [facility] [place] Procedures Procedure Code Date Perfomer Comments Source Head Brain Wo [id number] [facility] Cont 8 [place] Shoulder Left [id number] [facility] - View 8 [place] Count [id number] [facility] - 8 [place] [id number] [facility] - 8 [place] Knee Left 3 [id number] [facility] - View 8 [place] Chest Single [id number] [facility] View 8 [place] Shoulder Right [id number] [facility] - 2 View 8 [place] Anaerobic Blood [id number] [facility] Culture 7 [place] Aerobic Blood [id number] [facility] - Culture 7 [place] Abdomen & [id number] [facility] - Pelvis W 7 [place] Contrast Assessment and Plan No Data Provided for This Section Plan of Care Plan of Care Date Source Instructions 12/14/[address] [facility] [place] Acute Renal Failure DI for Chronic Pain -- Adult Instructions 12/14/2017 [facility] Smith Acute Renal Failure DI for Chronic Pain -- Adult Social History Social History Date Source Query Response Date Recorded Comment 10/31/1966 [facility] Smith Alcohol Use? No December 08, 2017 11:17pm CD- Drugs? No December 08, 2017 11:17pm Query Response Start Date Stop Date Smoking Status Never smoker October 31, 1966 Family History Value Date Source Query Response Instance Date Recorded Comment 12/14/2017 [facility] Smith Nurses notes Alzheimers Father December 08, 2017 11:17pm Medical History Heart disease Hypertension Diabetes Kidney disease Mother December 08, 2017 11:17pm Medical History Heart disease Diabetes Other (see notes) Father December 08, 2017 11:17pm Nurses notes Alzheimers September 01, 2017 1:50pm Medical History Heart disease Hypertension Diabetes Kidney disease September 01, 2017 1:50pm Advance Directives Order Name Results Value Date Source Advance Directives Advance Directives Advance Directive Response Recorded Date/Time 12/14/2017 S[facility] Montoya - Does Patient Have Living Will Cullenmaurice No December 14, 2017 5:36am Durable Power of Door Installer for Health Care No December 08, 2017 11:17pm Would you like additional information No December 08, 2017 12:52pm Functional Status No Data Provided for This Section
--- OUTSIDE RECORDS SUMMARY | 2019-07-14 11:05 | XMS REPORT | Summary of Care ---
:1945 Author Name IDALIA ATKINSON M.D. Address Unavailable Unavailable , Care Team Providers Name Role Phone IDALIA ATKINSON M.D. 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 At risk of fracture due to osteoporosis (V49.89, M81.0) Status: Active Chronic UTI (599.0, N39.0) Status: Active Vaginal discharge (623.5, N89.8) Status: Active Abdominal cramps (789.00, R10.9) Status: Active Vaginal dryness (625.8, N89.8) Status: Active Bladder pain (788.99, R39.89) Status: Active Vaginal infection (616.10, N76.0) Status: Active Vaginal pain (625.9, R10.2) Status: Active Urinary urgency (788.63, R39.15) Status: Active Urinary frequency (788.41, R35.0) Status: Active Recurrent UTI (599.0, N39.0) Status: Active Medications Name Dates Details Losartan Potassium 50 MG Oral Tablet Refills: 0 Active hydroCHLOROthiazide 12.5 MG Oral Tablet Refills: 0 Active Simvastatin 20 MG Oral Tablet Refills: 0 Active Potassimin TABS Refills: 0 Active Xanax 2 MG Oral Tablet Refills: 0 Active Dicyclomine HCl - 10 MG Oral Capsule TAKE 1 CAPSULE 3 TIMES DAILY NEEDED FOR ABDOMINAL CRAMPS Quantity: 30 Refills: 0 DEMETRIO M.DAster, BRANDONActive Percocet 7.5-325 MG Oral Tablet Refills: 0 Active Metoprolol Tartrate 25 MG Oral Tablet Refills: 0 Active Omeprazole 40 MG Oral Capsule Delayed Release Refills: 0 Active Levothyroxine Sodium 100 MCG Oral Tablet Refills: 0 Active Premarin 0.625 MG/GM Vaginal Cream INSERT 0.5 GRAM INTRAVAGINALLY AT BEDTIME FOR 7 DAYS, THEN 2 TIMES PER WEEK THEREAFTER Quantity: 1 Refills: 3 DEMETRIO Radha, IDALIA Start : 09-Jan-2019 Active 30 GM Tube Monistat 3 Combination Pack 200-2 MG-% Vaginal Kit INSERT 1 APPLICATOR BEDTIME Quantity: 1 Refills: 0 DEMETRIO Radha, IDALIA Start : 15-Feb-2019 Active Myrbetriq 25 MG Oral Tablet Extended Release 24 Hour TAKE 1 TABLET DAILY Quantity: 90 Refills: 3 DEMETRIO Garcia, IDALIA Start : 22-Feb-2019 Active Vancomycin HCl CAPS Refills: 0 Active Fluconazole 200 MG Oral Tablet take one every 48 hours. Quantity: 5 Refills: 0 DEMETRIO Garcia, IDALIA Start : 02-Apr-2019 Active Pyridium 200 MG Oral Tablet TAKE 1 TABLET Every 8 hours PRN dysuria Quantity: 30 Refills: 0 DEMETRIO Annie.Waldo, IDALIA Start : 02-Apr-2019 Active Nitrofurantoin Monohyd Macro 100 MG Oral Capsule TAKE 1 CAPSULE TWICE DAILY Quantity: 14 Refills: 0 DEMETRIO Radha, IDALIA Start : 02-Apr-2019 Active Allergies and Adverse Reactions Name Dates Details cefuroxime (Allergy) Status: Active Compazine (Allergy) Status: Active Compazine TABS (Allergy) Status: Active Past Medical History Name Dates Details History of anxiety disorder (V11.8, Z86.59) Status: Resolved History of arthritis (V13.4, Z87.39) Status: Resolved 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, 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 History of chronic pain (V13.89, Z87.898) Status: Resolved History of depression (V11.8, Z86.59) Status: Resolved History of fracture (V15.51, Z87.81) Status: Resolved History of Gastric reflux (530.81, K21.9) Status: Resolved History of hypercholesterolemia (V12.29, Z86.39) Status: Resolved History of hypertension (V12.59, Z86.79) Status: Resolved History of skin disorder (V13.3, Z87.2) Status: Resolved History of thyroid disease (V12.29, Z86.39) Status: Resolved Procedures Procedure Dates Details [QLH] CULTURE, URINE, ROUTINE Date: 09-Apr-2019 History of Shoulder Surgery Completed History of Knee replacement Completed History of Cholecystectomy Completed History of Tubal ligation Completed History of Hip replacement Completed Immunization Name Dates Details Immunizations [...] smoker Vital Signs Date Test Result Details :47 BP Systolic 150 mm[Hg] Status: Comments: Location: LUE; Position: Sitting BP Diastolic 82 mm[Hg] Status: Comments: Location: LUE; Position: Sitting Temperature 97.9 f Status: :24 BP Systolic 140 mm[Hg] Status: Comments: Location: LUE; Position: Sitting BP Diastolic 80 mm[Hg] Status: Comments: Location: LUE; Position: Sitting Temperature 96.3 f Status: Height 65 in Status: Weight 144 lb Status: Body Mass Index Calculated 23.96 kg/m2 Status: Body Surface Area Calculated 1.72 m2 Status: :43 BP Systolic 138 mm[Hg] Status: Comments: Location: LUE; Position: Sitting BP Diastolic 82 mm[Hg] Status: Comments: Location: LUE; Position: Sitting Temperature 97 f Status: Height 65 in Status: Weight 144 lb Status: Body Mass Index Calculated 23.96 kg/m2 Status: Body Surface Area Calculated 1.72 m2 Status: [id number] BP Systolic 122 mm[Hg] Status: Comments: Location: LUE; Position: Sitting BP Diastolic 88 mm[Hg] Status: Comments: Location: LUE; Position: Sitting Temperature 98.1 f Status: Height 65 in Status: Weight 144 lb Status: Body Mass Index Calculated 23.96 kg/m2 Status: Body Surface Area Calculated 1.72 m2 Status: :32 BP Systolic 120 mm[Hg] Status: Comments: Location: LUE; Position: Sitting BP Diastolic 78 mm[Hg] Status: Comments: Location: LUE; Position: Sitting Temperature 96.4 f Status: Height 65 in Status: Weight 144 lb Status: Body Mass Index Calculated 23.96 kg/m2 Status: Body Surface Area Calculated 1.72 m2 Status: Results Date Description Value Details :37 [O] Urine Dipstick (In Office) Glucose NEG (Normal) LEUKOCYTES 3+ (Abnormal) NITRITE POS (Abnormal) UROBILINOGEN 0.2 (Normal) PROTEIN NEG (Normal) pH 7.0 (Normal) URINE BLOOD TRACE (Abnormal) SPECIFIC GRAVITY 1.020 (Normal) KETONES NEG (Normal) BILIRUBIN NEG (Normal) :30 [QLH] CULTURE, URINE, ROUTINE Comments: Source: Urine, Clean CatchBody Site: ORGANISM Klebsiella pneumoniae ssp pneumoniae FINAL REPORT >100,000 CFU/mL Klebsiella pneumoniae ssp pneumoniae <10,000 CFU/mL Skin Bernie :30 [H] MSMIC Comments: Source: Urine, Clean CatchBody Site: ORGANISM Klebsiella pneumoniae ssp pneumoniae Amikacin <=16 (Susceptible) Ampicillin >16 (Resistant) Ampicillin/Sulbactam <=8/4 (Susceptible) Cefazolin <=8 (Susceptible) Cefepime <=4 (Susceptible) Ceftriaxone <=8 (Susceptible) Ciprofloxacin <=1 (Susceptible) Gentamicin <=4 (Susceptible) Levofloxacin <=2 (Susceptible) Meropenem <=1 (Susceptible) Nitrofurantoin <=32 (Susceptible) Piperacillin/Tazobactam <=16 (Susceptible) Tetracycline <=4 (Susceptible) Tobramycin <=4 (Susceptible) Trimethoprim/Sulfamethoxazole <=2/38 (Susceptible) Comments: S= Susceptible, R=Resistant, I=Intermediate, N/A=Not Applicable [id number] [O] Urine Dipstick (In Office) Glucose neg (Normal) LEUKOCYTES moderate (Abnormal) NITRITE positive (Abnormal) UROBILINOGEN 0.2 (Normal) PROTEIN neg (Normal) pH 6.0 (Normal) URINE BLOOD trace (Abnormal) SPECIFIC GRAVITY 1.020 (Normal) KETONES neg (Normal) BILIRUBIN neg (Normal) [id number] [[facility]] CULTURE, URINE, ROUTINE Comments: Source: Urine, Clean CatchBody Site: FINAL REPORT Multiple Species Isolated-Suggestive Of Improper Collection Or Contamination.Please Recollect. [id number] [O] Urine Dipstick (In Office) Glucose 100mg/dl (Abnormal) LEUKOCYTES 3+ (Abnormal) NITRITE positive (Abnormal) UROBILINOGEN 4.0 (Normal) PROTEIN >=300mg/dl (Abnormal) pH 5.0 (Normal) URINE BLOOD 1+ (Abnormal) SPECIFIC GRAVITY 1.015 (Normal) KETONES 15mg/dl (Abnormal) BILIRUBIN 1+ (Abnormal) [id number] [[facility]] CULTURE, URINE, ROUTINE Comments: Source: Urine, Clean CatchBody Site: FINAL REPORT 50,000 - 100,000 CFU/mL Yeast Plan of Care Name Dates Details Planned Observations Planned Goals not documented Planned Encounters Appointment; IDALIA ATKINSON M.D. On: 23-Apr-2019 9:00 Interventions Provided Medication ChangesFluconazole 200 MG Oral Tablet - RenewLabs/Procedures/Imaging[ [facility]] CULTURE, URINE, ROUTINE; To Be Done: 09 Apr 2019PlanPlan: This is a 73 year old woman with recurrent urinary tract infections.1. Recurrent urinary tract infections - the patient is noted to be in severe pain. She does not haveCVA tenderness. She does not have fever. It was suggested to the patient and her [facility]. Urine sample dirty on dip secondary to the patientbeing in on Pyridium. Urine sample sent for culture. Culture positive for yeast last week. Will continue treatment with Diflucan 200 mg PO Q 48 hrs for 5 doses. Return at regular scheduled visit in 2 weeks. Instructions Name Dates Details Instructions not documented Encounters Appointment; AMELIE GABRIEL M.D. On: 23-Aug-2018 7:30 Encounter Diagnosis: Problem not documented Appointment; SIMONE STERLING P.A. On: 29-Aug-2018 8:30 Encounter Diagnosis: Problem not documented Appointment; SIMONE STERLING P.A. On: 12-Sep-2018 11:30 Encounter Diagnosis: Problem not documented Appointment; AMELIE GABRIEL M.D. On: 29-Sep-2018 8:45 Encounter Diagnosis: Problem not documented Appointment; AMELIE GABRIEL M.D. On: 01-Nov-2018 10:30 Encounter Diagnosis: Problem not documented Appointment; AMELIE GABRIEL M.D. On: 13-Dec-2018 13:15 Encounter Diagnosis: Problem not documented Appointment; IDALIA ATKINSON M.D. On: 09-Jan-2019 10:30 Encounter Diagnosis: Problem not documented Appointment; IDALIA ATKINSON M.D. On: 23-Jan-2019 9:20 Encounter Diagnosis: Problem not documented Appointment; IDALIA ATKINSON M.D. On: 26-Jan-2019 14:30 Encounter Diagnosis: Problem not documented Appointment; IDALIA ATKINSON M.D. On: 15-Feb-2019 9:00 Encounter Diagnosis: Problem not documented Appointment; IDALIA ATKINSON M.D. On: 15-Mar-2019 9:00 Encounter Diagnosis: Problem not documented Appointment; JESSICA LLANES NP On: 28-Mar-2019 16:30 Encounter Diagnosis: Problem not documented Appointment; IDALIA ATKINSON M.D. On: 02-Apr-2019 13:40 Encounter Diagnosis: Problem not documented Appointment; IDALIA ATKINSON M.D. On: 09-Apr-2019 13:20 Encounter Diagnosis: Problem not documented
--- OUTSIDE RECORDS SUMMARY | 2019-07-14 11:06 | XMS REPORT | Summary of Care ---
:1945 Author Name IDALIA ATKINSON M.D. Address Unavailable Unavailable , Care Team Providers Name Role Phone IDALIA ATKINSON M.D. Unavailable Unavailable RENZO OWENS, HANNAH Patel Unavailable Unavailable SOPHIA DOMINGUEZ, FRANCK Unavailable Unavailable HARVEY OWENS [place], AMELIE Raya Unavailable Unavailable IDALIA ATKINSON MD Unavailable Unavailable Destin POLICE SUPERINTENDENT, Jessica Unavailable Unavailable Unavailable Unavailable Unavailable Functional [...] Active Abdominal cramps (789.00, R10.9) Status: Active Bladder pain (788.99, R39.89) Status: Active Vaginal infection (616.10, N76.0) Status: Active Vaginal dryness (625.8, N89.8) Status: Active Vaginal pain (625.9, R10.2) Status: Active Recurrent UTI (599.0, N39.0) Status: Active Urinary frequency (788.41, R35.0) Status: Active Urinary urgency (788.63, R39.15) Status: Active Medications Name Dates Details Losartan [...] WEEK THEREAFTER Quantity: 1 Refills: 3 DEMETRIO M.Waldo, IDALIA Start : 09-Jan-2019 Active 30 GM Tube Myrbetriq 25 MG Oral Tablet Extended Release 24 Hour TAKE 1 TABLET DAILY Quantity: 90 Refills: 3 DEMETRIO Radha, IDALIA Start : 22-Feb-2019 Active Vancomycin HCl CAPS Refills: 0 Active Pyridium 200 MG Oral Tablet TAKE 1 TABLET Every 8 hours PRN dysuria Quantity: 30 Refills: 0 DEMETRIOLazara Garcia IDALIA Start : 02-Apr-2019 Active Solifenacin Succinate 5 MG Oral Tablet TAKE 1 TABLET DAILY Quantity: 90 Refills: 3 DEMETRIO Radha, IDALIA Start : 07-May-2019 Active Nitrofurantoin Macrocrystal 50 MG Oral Capsule TAKE 1 CAPSULE DAILY. Quantity: 90 Refills: 0 DEMETRIO Radha, IDALIA Start : 18-May-2019 Active Trimethoprim 100 MG Oral Tablet take 1/2 tablet by mouth daily Quantity: 90 Refills: 0 DEMETRIO Radha, IDALIA Start : 31-May-2019 Active Allergies and Adverse Reactions Name Dates Details cefuroxime (Allergy) Status: Active Compazine (Allergy) Status: Active Past Medical History [...] Z86.39) Status: Resolved Procedures Procedure Dates Details History of Shoulder Surgery Completed History of [...] smoker Vital Signs Date Test Result Details :53 BP Systolic 116 mm[Hg] Status: BP Diastolic 72 mm[Hg] Status: Height 65 in Status: Weight 163.375 lb Status: Body Mass Index Calculated 27.19 kg/m2 Status: Body Surface Area Calculated 1.82 m2 Status: Temperature 97.8 f Status: Comments: Method: Oral Heart Rate 74 /min Status: Respiration Rate 18 /min Status: :12 BP Systolic 110 mm[Hg] Status: Comments: Location: LUE; Position: Sitting BP Diastolic 62 mm[Hg] Status: Comments: Location: LUE; Position: Sitting Height 65 in Status: Weight 144 lb Status: Body Mass Index Calculated 23.96 kg/m2 Status: Body Surface Area Calculated 1.72 m2 Status: Temperature 96.2 f Status: Results Date Description Value Details :43 [O] Urine Dipstick (In Office) Glucose neg (Normal) LEUKOCYTES 2+ (Abnormal) NITRITE neg (Normal) UROBILINOGEN 0.2 (Normal) PROTEIN 100mg/dl (Abnormal) pH 6.0 (Normal) URINE BLOOD trace (Abnormal) SPECIFIC GRAVITY 1.020 (Normal) KETONES neg (Normal) BILIRUBIN 2+ (Abnormal) [id number] [[facility]] CULTURE, URINE, ROUTINE Comments: Source: Urine, Clean CatchBody Site: ORGANISM Citrobacter youngae FINAL REPORT 10,000 - 50,000 CFU/mL Citrobacter youngae :40 [H] [facility] [place] Comments: Source: Urine, Clean CatchBody Site: ORGANISM Citrobacter youngae Amikacin <=16 (Susceptible) Ampicillin - (Resistant) Ampicillin/Sulbactam <=8/4 (Susceptible) Cefazolin >16 (Resistant) Cefepime <=4 (Susceptible) Ceftriaxone <=8 (Susceptible) Ciprofloxacin <=1 (Susceptible) Gentamicin <=4 (Susceptible) Levofloxacin <=2 (Susceptible) Meropenem <=1 (Susceptible) Nitrofurantoin <=32 (Susceptible) Piperacillin/Tazobactam <=16 (Susceptible) Tetracycline <=4 (Susceptible) Tobramycin <=4 (Susceptible) Trimethoprim/Sulfamethoxazole <=2/38 (Susceptible) Comments: S= Susceptible, R=Resistant, I=Intermediate, N/A=Not Applicable :09 [O] Urine Dipstick (In Office) Glucose NEG (Normal) LEUKOCYTES 3+ (Abnormal) NITRITE NEG (Normal) UROBILINOGEN 3.5 (Normal) PROTEIN 1+ (Abnormal) pH 6.0 (Normal) URINE BLOOD 3+ (Abnormal) SPECIFIC GRAVITY 1.025 (Normal) KETONES NEG (Normal) BILIRUBIN NEG (Normal) [id number] [[facility]] CULTURE, URINE, ROUTINE Comments: Source: Urine, Clean CatchBody Site: U CC FINAL REPORT >100,000 CFU/mL Yeast Plan of Care Name Dates Details Planned Observations Planned Goals not documented Interventions Provided PlanPlan: This is a 73 year old woman with recurrent urinary tract infections, vaginal atrophy and vaginal pain.1. Recurrent urinary tract infections - the patient was instructed to finish the oral antibiotics started by her Infectious Disease physician at [facility]. She never started her daily preventative antibiotic. She is unsure what she did with the prescription. A new prescription for Trimethoprim 50 mg PO daily; disp 90 tablets with no refills was sent to her pharmacy. She will return in 3 months for follow-up.2. Vaginal pain/vaginal atrophy - she was instructed to use the vaginal estrogen for 7 days in a row. I instructed the patient to resume twice weekly Estrace cream 1/2 gram within the vagina after finishing the 7 day course. Patient to return for follow-up in 3 months. Instructions Name Dates Details Instructions not documented [...] 09-Apr-2019 13:20 Encounter Diagnosis: Problem not documented Appointment; IDALIA ATKINSON M.D. On: 07-May-2019 14:10 Encounter Diagnosis: Problem not documented Appointment; IDALIA ATKINSON M.D. On: 18-May-2019 9:00 Encounter Diagnosis: Problem not documented Appointment; IDALIA ATKINSON M.D. On: 31-May-2019 9:50 Encounter Diagnosis: Problem not documented
[2019-07-14 12:30] LABS: Urine Bacteria <20 /HPF (<20); Urine Culture Reflex Order NOT NEEDED; Urine RBC <5 /HPF (NONE SEEN)
[2019-07-14 12:31] LABS: Urine Yeast PRESENT (NONE SEEN)
--- NOTE | 2019-07-14 13:02 | EDPHYS ---
Physician Documentation [facility] Name: Tina Padron Age: 73 yrs Sex: Female : 1945 Arrival Date: 07/14/2019 Time: 11:02 Bed 15 Private MD: Phil Gallego ED Physician Rashawn Wagner HPI: 07/14 12:06 This 73 yrs old Female presents to ER via Ambulatory with complaints of pm1 Urinary Problem. 12:06 The patient presents with urinary symptoms. Onset: The symptoms/episode began/occurred pm1 2 day(s) ago. Modifying factors: The symptoms are alleviated by nothing, the symptoms are aggravated by urinating. Associated signs and symptoms: Pertinent positives: dysuria, vaginal discharge, Pertinent negatives: diarrhea, fever, nausea. Severity of symptoms: in the emergency department the symptoms are unchanged. The patient has experienced similar episodes in the past, multiple times. The patient has not recently seen a physician, the patient's primary care provider is Dr. Gallego. Historical: - Allergies: 11:06 Compazine; sg - PMHx: 11:06 "shattered shoulder"; Anxiety; chronic uti; Hyperlipidemia; Hypertension; sg Hypothyroidism; - PSHx: 11:06 left shoulder surg; sg - Immunization history:: Adult Immunizations not up to date. - Social history:: Smoking status: Patient/guardian denies using tobacco. - Ebola Screening: : Patient negative for fever greater than or equal to 101.5 degrees Fahrenheit, and additional compatible Ebola Virus Disease symptoms Patient denies exposure to infectious person Patient denies travel to an Ebola-affected area in the 21 days before illness onset No symptoms or risks identified at this time. ROS: 12:06 Positive for burning with urination, vaginal discharge, vaginal itching, Negative pm1 for flank pain. 12:06 Constitutional: Negative for fever, chills, and weight loss, Eyes: Negative for injury, pain, redness, and discharge, ENT: Negative for injury, pain, and discharge, Neck: Negative for injury, pain, and swelling, Cardiovascular: Negative for chest pain, palpitations, and edema, Respiratory: Negative for shortness of breath, cough, wheezing, and pleuritic chest pain, Abdomen/GI: Negative for abdominal pain, nausea, vomiting, diarrhea, and constipation, Back: Negative for injury and pain, MS/Extremity: Negative for injury and deformity, Skin: Negative for injury, rash, and discoloration, Neuro: Negative for headache, weakness, numbness, tingling, and seizure. Exam: 12:06 Constitutional: This is a well developed, well nourished patient who is awake, alert, pm1 and in no acute distress. Head/Face: Normocephalic, atraumatic. Eyes: Pupils equal round and reactive to light, extra-ocular motions intact. Lids and lashes normal. Conjunctiva and sclera are non-icteric and not injected. Cornea within normal limits. Periorbital areas with no swelling, redness, or edema. ENT: Nares patent. No nasal discharge, no septal abnormalities noted. Tympanic membranes are normal and external auditory canals are clear. Oropharynx with no redness, swelling, or masses, exudates, or evidence of obstruction, uvula midline. Mucous membranes moist. Neck: Trachea midline, no thyromegaly or masses palpated, and no cervical lymphadenopathy. Supple, full range of motion without nuchal rigidity, or vertebral point tenderness. No Meningismus. Chest/axilla: Normal chest wall appearance and motion. Nontender with no deformity. No lesions are appreciated. Cardiovascular: Regular rate and rhythm with a normal S1 and S2. No gallops, murmurs, or rubs. Normal PMI, no JVD. No pulse deficits. Respiratory: Lungs have equal breath sounds bilaterally, clear to auscultation and percussion. No rales, rhonchi or wheezes noted. No increased work of breathing, no retractions or nasal flaring. 12:06 Back: No spinal tenderness. No costovertebral tenderness. Full range of motion. Skin: Warm, dry with normal turgor. Normal color with no rashes, no lesions, and no evidence of cellulitis. MS/ Extremity: Pulses equal, no cyanosis. Neurovascular intact. Full, normal range of motion. 12:06 Abdomen/GI: Inspection: abdomen appears normal, Bowel sounds: normal, in all quadrants, Palpation: abdomen is soft and non-tender, mass, is not appreciated, rebound tenderness, is not appreciated. 12:06 Neuro: Orientation: is normal, Motor: is normal, moves all fours. Vital Signs: 11:26 BP 138 / 62; Pulse 87; Resp 17; Temp 99.2; Pulse Ox 100% on R/A; Pain 6/10; sg MDM: 12:06 Patient medically screened. pm1 13:00 Data reviewed: vital signs. Data interpreted: Pulse oximetry: on room air is 100 %. pm1 Interpretation: normal. Counseling: I had a detailed discussion with the patient and/or guardian regarding: the historical points, exam findings, and any diagnostic results supporting the discharge/admit diagnosis, lab results, the need for outpatient follow up, to return to the emergency department if symptoms worsen or persist or if there are any questions or concerns that arise at home. 07/14 11:53 Order name: Urine Microscopic Only; Complete Time: 12:31 em 07/14 11:57 Order name: Urine Dipstick--Ancillary (enter results) ms Administered Medications: 13:24 Drug: TORadol 30 mg Route: IM; Site: left deltoid; rv 13:24 Follow up: Response: Medication administered at discharge. rv Disposition: 07/14/19 13:01 Discharged to Home. Impression: Candidiasis of other urogenital sites. - Condition is Stable. - Discharge Instructions: Vaginal Yeast Infection, Adult. - Prescriptions for Diflucan 150 mg Oral Tablet - take 1 tablet by ORAL route one time for 1 day; 1 tablet. - Medication Reconciliation Form, Thank You Letter, Antibiotic Education, Prescription Opioid Use form. - Follow up: Emergency Department; When: As needed; Reason: Worsening of condition. Follow up: Private Physician; When: 2 - 3 days; Reason: Recheck today's complaints, Continuance of care, Re-evaluation by your physician. - Problem is new. - Symptoms have improved. Addendum: 07/16/2019 09:52 Co-signature as Attending Physician, Rashawn Wagner MD I agree with the assessment and k dr plan of care. Signatures: Dispatcher [employer] EDMS Addy Vale, RN Rashawn Randall MD MD [facility] Oliverio Barnes, BANKRUPTCY ASSISTANT BANKRUPTCY ASSISTANT pm1 Violeta Odonnell RN RN Nestor Mosqueda RN RN rv Corrections: (The following items were deleted from the chart) 07/14 13:24 13:01 07/14/2019 13:01 Discharged to Home. Impression: Candidiasis of other urogenital hb sites. Condition is Stable. Forms are Medication Reconciliation Form, Thank You Letter, Antibiotic Education, Prescription Opioid Use. Follow up: Emergency Department; When: As needed; Reason: Worsening of condition. Follow up: Private Physician; When: 2 - 3 days; Reason: Recheck today's complaints, Continuance of care, Re-evaluation by your physician. Problem is new. Symptoms have improved. pm1
--- NOTE | 2019-07-14 13:02 | ER ---
Nurse's Notes [facility] Name: Tina Padron Age: 73 yrs Sex: Female : 1945 Arrival Date: 07/14/2019 Time: 11:02 Bed 15 Private MD: Phil Gallego Diagnosis: Candidiasis of other urogenital sites Presentation: 07/14 11:27 Presenting complaint: Patient states: Urinary frequency with slight pain upon sg urination, reports having chills that come and go, denies any N/V/D at this time. Transition of care: patient was not received from another setting of care. Onset of symptoms was July 14, 2019. Risk Assessment: Do you want to hurt yourself or someone else? Patient reports no desire to harm self or others. Initial Sepsis Screen: Does the patient meet any 2 criteria? No. Patient's initial sepsis screen is negative. Does the patient have a suspected source of infection? Yes: Dysuria/Frequency/Urgency/UTI. Care prior to arrival: None. 11:27 Method Of Arrival: Ambulatory 11:27 Acuity: TYLOR 4 sg Historical: - Allergies: 11:06 Compazine; sg - PMHx: 11:06 "shattered shoulder"; Anxiety; chronic uti; Hyperlipidemia; Hypertension; sg Hypothyroidism; - PSHx: 11:06 left shoulder surg; sg - Immunization history:: Adult Immunizations not up to date. - Social history:: Smoking status: Patient/guardian denies using tobacco. - Ebola Screening: : Patient negative for fever greater than or equal to 101.5 degrees Fahrenheit, and additional compatible Ebola Virus Disease symptoms Patient denies exposure to infectious person Patient denies travel to an Ebola-affected area in the 21 days before illness onset No symptoms or risks identified at this time. Screenin:37 Abuse screen: Denies threats or abuse. Denies injuries from another. Nutritional rv screening: No deficits noted. Tuberculosis screening: No symptoms or risk factors identified. Fall Risk None identified. Assessment: 12:36 General: Appears in no apparent distress. comfortable, Behavior is calm, cooperative. rv Pain: Complains of pain in urination. Neuro: Level of Consciousness is awake, alert, obeys commands, Oriented to person, place, time, situation. Cardiovascular: Patient's skin is warm and dry. Respiratory: Airway is patent. GI: No signs and/or symptoms were reported involving the gastrointestinal system. : Reports burning with urination. EENT: No signs and/or symptoms were reported regarding the EENT system. Derm: Skin is intact. Musculoskeletal: No signs and/or symptoms reported regarding the musculoskeletal system. Vital Signs: 11:26 BP 138 / 62; Pulse 87; Resp 17; Temp 99.2; Pulse Ox 100% on R/A; Pain 6/10; sg ED Course: 11:02 Patient arrived in ED. rg4 11:02 Phil Gallego MD is Private Physician. rg4 11:06 Arm band placed on. sg 11:27 Triage completed. sg 11:42 Nestor Mosqueda RN is Primary Nurse. rv 11:51 Oliverio Barnes NP is PHCP. pm1 11:51 Rashawn Wagner MD is Attending Physician. pm1 11:59 Urine collected: clean catch specimen, cloudy. em 12:37 Patient has correct armband on for positive identification. Bed in low position. Call rv light in reach. Side rails up X 1. Pulse ox on. NIBP on. 13:24 No provider procedures requiring assistance completed. Patient did not have IV access rv during this emergency room visit. Administered Medications: 13:24 Drug: TORadol 30 mg Route: IM; Site: left deltoid; rv 13:24 Follow up: Response: Medication administered at discharge. rv Outcome: 13:01 Discharge ordered by MD. pm1 13:24 Patient left the ED. hb 13:24 Discharged to home via wheelchair. rv 13:24 Condition: good 13:24 Discharge instructions given to patient, Instructed on discharge instructions, follow up and referral plans. medication usage, Demonstrated understanding of instructions, follow-up care, medications, Prescriptions given X 1. Signatures: Addy Vale RN RN Stevenson Garcia, E COMMERCE MERCHANT E COMMERCE MERCHANT em Oliverio Barnes NP HOSPITALITY COORDINATOR pm1 Violeta Odonnell RN RN Darlin Osborn rg4 Nestor Mosqueda RN RN rv
[2019-07-14] MEDS ORDERED: KETOROLAC 30 MG/ML INJ ONE (13:18)
[2019-07-14 13:30] VITALS: BP 138/62; TEMP 99.2; O2SAT 100
[2019-07-14 13:56] LABS: Urine Blood TRACE (NEG); Urine Glucose NEGATIVE (NEG); Urine Protein 1+ (NEG); Urine Specific Gravity 1.015 (1.005-1.030); Urine pH 5.5 (5.0-7.0)
== END 2019-07-14 13:24 | disposition home or self-care (01) ==
LOC: ER 11:00
DX: B37.49 Other urogenital candidiasis (principal); I10 Essential (primary) hypertension; Z88.8 Allergy status to other drugs, medicaments and biological substances
CPT/HCPCS: 81003; 81015; 96372; 99284

== ENCOUNTER 2019-11-13 19:51 | Emergency (ER) | payer OTHER, BC ==
--- OUTSIDE RECORDS SUMMARY | 2019-11-13 19:56 | XMS REPORT | Summary of Care ---
:1945 Author Organization [facility] Address [address] [id number] Care Team Providers Name Role Phone Unavailable Primary Care Provider Unavailable Reason for Referral (Routine) Status Reason Specialty Diagnoses / Referred By Referred To Procedures Contact Contact Pending Consult, Physical Therapy Diagnoses Overactive bladder Heriberto Cross MD Test, and [address] [facility] [address], [place] [address] Reason for Visit Reason Comments Urinary Tract Infection Encounter Details Date Type Department Care Team Description 07/17/2019 Office Visit [facility] Heriberto Cross MD Urinary Tract Medicine Urology [address] [facility] [address] [facility] [address]th Floor, [address], [place] [phone] Allergies Active Allergy Reactions Severity Noted Date Comments Cefuroxime Other (See Comments) 12/28/2018 "shaky legs, and metal taste in the mouth" Patient has tolerated cefdinir and cefepime in the past Compazine 07/17/2019 Prochlorperazine 03/20/2018 documented as of this encounter (statuses as of 07/22/2019) Medications Medication Sig Dispensed Refills Start Date End Date Status aspirin EC 81 MG TBEC Take 81 mg by 0 Active mouth. simvastatin (ZOCOR) 20 MG Take 20 mg by 0 Active tablet mouth every evening. hydrochlorothiazide Take 25 mg by 0 Active (HYDRODIURIL) 25 MG tablet mouth daily. oxycodone-acetaminophen Take 1 Tab by 0 Active (PERCOCET) 7.5-325 MG per mouth every 4 tablet hours as needed. Thyroid Take 0.088 mg 0 Active (LEVOTHYROXINE-LIOTHYRONINE by mouth. OR) losartan (COZAAR) 50 MG Take 50 mg by 0 Active tablet mouth daily. omeprazole (PRILOSEC) 40 MG Take 40 mg by 0 Active capsule mouth daily. Mirabegron ER 25 MG Take 25 mg by 30 Tab 11 07/17/2019 Active [id number]: Overactive mouth daily. bladder documented as of this encounter (statuses as of 07/22/2019) Active Problems Not on filedocumented as of this encounter (statuses as of 07/22/2019) Social History Tobacco Use Types Packs/Day Years Used Date Former Smoker Cigarettes 1 10 Smokeless Tobacco: Never Used Alcohol Use Drinks/Week oz/Week Comments Never Alcohol Habits Answer Date Recorded How often do you have a drink containing alcohol? Never 07/17/2019 How many drinks containing alcohol do you have on a typical Not asked day when you are drinking? How often do you have six or more drinks on one occasion? Not asked Sex Assigned at Date Recorded Not on file Job Start Date Occupation Industry Not on file Not on file Not on file Travel History Travel Start Travel End No recent travel history available. documented as of this encounter Last Filed Vital Signs Vital Sign Reading Time Taken Comments Blood Pressure 113/76 07/17/2019 8:59 AM CDT Pulse 79 07/17/2019 8:59 AM CDT Temperature - - Respiratory Rate - - Oxygen Saturation - - Inhaled Oxygen Concentration - - Weight 72.6 kg (160 lb) 07/17/2019 8:59 AM CDT Height 165.1 cm (5' 5") 07/17/2019 8:59 AM CDT Body Mass Index 26.63 07/17/2019 8:59 AM CDT documented in this encounter Patient Instructions Patient InstructionsTonja Sullivan, DIETARY SERVICE AIDE - 07/17/2019 9:29 AM CDTAssessment: OAB Plan: Consult [facility] for biofeedback and pelvic floor training Frequency/volume chart ua PVR Obtain medical records from [facility]- Fax to [phone] Myrbetric 25mg every day rx and samples I have given her a list of foods to avoid. I discussed PTNS and botox as third line therapy. Consider videourodynamics FU in 2 months with [facility] Bladder Irritants Some foods and beverage are associated with bladder irritation. There is no research to explain why some foods cause discomfort. Since people differ on what causes discomfort it is impossible to provide a list of specific foods to avoid. The best way to determine the foods that affect you is to eliminate food you suspect cause irritation to find out if your symptoms improve. Eliminate one food at a time rather than a lot of foods so that you can determine the one( s) that cause irritation. Also, keeping a food diary in which you record everything you eat and drink can help you identify problem foods. While the list of foods that can contribute to bladder irritation is long, you may find that only afew of these items affect you. The most common food irritants are: 1. Tomatoes and tomato products 2. [place] fruits and juices orange, grapefruit, lemon 3. Cranberries and cranberry juice 4. Coffee- decaf as well as regular 5. Tea- black, green and herbal 6. Carbonated beverages 7. Alcohol 8. Chocolate- however white chocolate and carob may be tolerated 9. Artificial sweeteners 10. Spicy foods Some other food that can cause irritation include: 1. Nuts- although almonds, cashews, pine nuts and sunflower seeds may be tolerated 2. Processed, smoked and canned meats and fish, as well as any products that contain nitrates or nitrites e.g. hotdogs, salami, bologna, ham 3. Soy beans, soy foods (including soy milk) and soy sauce (because it is fermented). Skyla and reyna beans may also cause irritation. 4. Aged cheese- although processed cheese is often tolerated, e.g Greek cheese 5. Yogurt and sour cream 6. [place] and sourdough bread 7. Tolerance for fruits varies greatly, so try one type of fruit at a time. Pears, blueberries and melons (except cantaloupe) are generally the best tolerated. 8. Salad dressings and condiments made with lemon and vinegar e.g. mayonnaise, mustard, ketchup. 9. Some food additives e.g. citric acid, monosodium glutamate (MSG) It is important to drink enough fluid in order to dilute urine. If you dont drink enough, urine becomes concentrated and is irritating. You may also be more prone to develop bladder infections. Try to drink 6 to 8 glasses of fluid each day. documented in this encounter Progress Notes Heriberto Cross MD - 07/17/2019 11:00 AM CDT Referring Physician Self Referral No address on file Patient Name: Tina Padron :1945 [facility] ID#:[id number] Ms. Padron is a 73 y.o. year old female who present to me for urinary urgency and frequency for the past 2 years. She has mild urge incontinence. She denies stress incontinence. She does not wear pads She denies hematuria or dysuria She denies a history of nephrolithiasis. She has history of recurrent UTIs. She has not tried any medications to treat this condition in the past. She is postmenopausal. She is currently not taking hormone replacement therapy. Past Medical History: Diagnosis Date Arthritis Cataract Hypertension Lymphoma (HCCode) Post chemo evaluation Thyroid disorder UTI (urinary tract infection) Past Surgical History: Procedure Laterality Date HX HIP SURGERY HX KNEE SURGERY HX ROTATOR CUFF REPAIR HX SHOULDER SURGERY Medications No outpatient medications prior to visit. No facility-administered medications prior to visit. No current outpatient medications on file. Social History Socioeconomic History Marital status: Spouse name: Not on file Number of children: Not on file Years of education: Not on file Highest education level: Not on file Occupational History Not on file Social Needs Financial resource strain: Not on file Food insecurity: Worry: Not on file Inability: Not on file Transportation needs: Medical: Not on file Non-medical: Not on file Tobacco Use Smoking status: Former Smoker Packs/day: 1.00 Years: 10.00 Pack years: 10 Types: Cigarettes Smokeless tobacco: Never Used Substance and Sexual Activity Alcohol use: Never Frequency: Never Drug use: Not on file Sexual activity: Not on file Lifestyle Physical activity: Days per week: Not on file Minutes per session: Not on file Stress: Not on file Relationships Social connections: Talks on phone: Not on file Gets together: Not on file Attends scientology service: Not on file Active member of club or organization: Not on file Attends meetings of clubs or organizations: Not on file Relationship status: Not on file Intimate partner violence: Fear of current or ex partner: Not on file Emotionally abused: Not on file Physically abused: Not on file Forced sexual activity: Not on file Other Topics Concerns: Not on file Social History Narrative Not on file family history is not on file. Allergies Allergen Reactions Cefuroxime Other (See Comments) "shaky legs, and metal taste in the mouth" Patient has tolerated cefdinir and cefepime in the past Compazine Prochlorperazine Review of Systems: GENERAL: Denies recent weight changes, fever INTEGUMENTARY: Denies rashes, eruptions, dryness, jaundice, changes in skin, hair, or nails, discoloration of skin. EYES: Denies blurred vision, double vision, pain EARS, NOSE, MOUTH AND THROAT: Denies soreness and/or redness of gums, hoarseness, difficulty in swallowing, head colds, discharges, obstruction, postnasal drip, sinus pain, earaches. MUSCULOSKELATAL: Arthritis, RESPIRATORY: Denies chest pain, wheezing, cough, difficulty breathing, asthma, bronchitis, pneumonia, tuberculosis, shortness of breath, emphysema NEUROLOGIC: Denies fainting, blackouts, seizures, paralysis, tingling, tremors, memory loss , dizzy spells, stroke CV HTN ENDOCRINE: thyroid trouble GASTROINTESTINAL: Denies nausea, vomiting, diarrhea, constipation, indigestion, food intolerance, hemorrhoids, jaundice, heartburn, diabetes, hepatitis GENITOURINARY: As per HPI HEMATOLOGIC/LYMPHATIC: Denies anemia, easy bruising or bleeding, past transfusion, swollen glands, blood clotting problems PSYCHOLOGIC: Denies nervousness, mood swings, insomnia, headaches, nightmares, depression ALLERGY/IMMUNOLOGIC: Denies food allergies, plant allergies, environmental allergies OTHER: Denies HIV/AIDS Physical Exam: GENERAL: Well developed, well nourished, in no acute distress HEAD: Normocephalic and atraumatic PELVIC EXAM To be done at time of cysto PSYCH: Alert and cooperative; normal mood and affect; normal attention span and concentration Assessment: OAB Plan: Consult [facility] for biofeedback and pelvic floor training Frequency/volume chart ua PVR Obtain medical records from [facility] Myrsamueltric 25mg every day rx and samples I have given her a list of foods to avoid. I discussed PTNS and botox as third line therapy. Consider videourodynamics FU in 2 months for possible cysto Yvonne Ortega CMA - 07/17/2019 9:42 AM CDT HPI Review of Systems Constitutional: Positive for fatigue and unexpected weight change. HENT: Negative. Eyes: Negative. Respiratory: Negative. Cardiovascular: Negative. Gastrointestinal: Negative. Endocrine: Positive for cold intolerance. Genitourinary: Positive for urgency. Musculoskeletal: Positive for joint swelling and neck pain. Skin: Positive for rash. Allergic/Immunologic: Negative. Neurological: Negative. Hematological: Bruises/bleeds easily. Psychiatric/Behavioral: Positive for sleep disturbance. Physical Exam documented in this encounter Plan of Treatment Date Type Specialty Care Team Description 09/18/2019 Office Visit Urology Kareem Taylor PA [facility] [address] [address] [phone] Name Type Priority Associated Diagnoses Order Schedule AMB REF TO PT Outpatient Referral Routine Overactive bladder Ordered: EXTERNAL 07/17/2019 Health Maintenance Due Date Last Done Comments COLON CANCER SCREENING: COLONOSCOPY 1945 MAMMOGRAM ANNUAL 1945 MEDICARE AWV 1945 TETANUS SHOT (ADULT) 1962 BMI FOLLOW UP PLAN 1965 HEPATITIS C SCREENING 1965 FALL SCREEN 2012 OSTEOPOROSIS SCREENING 2012 PNEUMOVAX >=65 (PPSV23) 2012 PREVNAR >=65 (PCV13) 2012 FLU VACCINE > 6 MONTHS 05/31/2019 documented as of this encounter Procedures Procedure Name Priority Date/Time Associated Comments Diagnosis URINALYSIS AUTO Routine 07/17/2019 11:59 AM Overactive bladder Results for this W/SCOPE CDT procedure are in the results section. REGINO,POST-VOID Routine 07/17/2019 Overactive bladder Results for this RES,US,NON-IMG procedure are in the results section. documented in this encounter Results URINALYSIS AUTO W/SCOPE (07/17/2019 11:59 AM CDT) COLOR UA YELLOW YELLOW-STRAW CPL CLARITY UA TURBID (A) CLEAR CPL SPECIFIC GRAVITY UA 1.020 1.005 - 1.035 CPL LEUKOCYTE ESTERASE 3+ (A) NEGATIVE CPL UA NITRITE UA NEGATIVE NEGATIVE CPL PH UA 6.0 5.0 - 9.0 CPL PROTEIN UA 1+ (A) NEGATIVE CPL GLUCOSE UA NEGATIVE NEGATIVE CPL KETONES UA NEGATIVE NEGATIVE CPL UROBILINOGEN UA <2.0 <=2.0 MG/DL CPL BILIRUBIN UA NEGATIVE NEGATIVE CPL OCCULT BLOOD UA TRACE (A) NEGATIVE CPL WBC UA >50 (A) 0 - 5 /HPF CPL RBC UA 10-15 (A) 0 - 5 /HPF CPL EPITHELIAL CELLS 10-15 (A) 0 - 10 /HPF CPL BACTERIA 1+ (A) NEGATIVE CPL CRYSTALS (NOTE) NONE /HPF CPL Comment: 1+ AMORPHOUS Unless Otherwise Indicated, All Testing Performed At: [facility], [address] [place] [id number] Urgent Care: Mohit Ca M.D. [place] Number [id number] [place]. [id number] Specimen Urine Performing Organization Address City/State/Zipcode Phone Number [address] [address] REGINO,POST-VOID RES,US,NON-IMG (07/17/2019) PVR 50 cc/ml documented in this encounter Visit Diagnoses Diagnosis Overactive bladder - Primary Hypertonicity of bladder documented in this encounter Insurance Payer Benefit Plan / Subscriber ID Effective Phone Address Type Group Dates UNITED CHOICE/CHOICE xxxxxxxxx 2018-Prese [address] [address] PPO HEALTHCARE PLUS/OPTIONS [facility] [place] [address] MEDICARE MEDICARE PART xxxxxxxxxxx 2012-Pres [address] Medicare A & B - [place] [id number] [place] [address] documented as of this encounter
[2019-11-13] MEDS ORDERED: HYDROCODONE/APAP 10/325 TAB ONE (20:24)
--- NOTE | 2019-11-13 20:45 | RAD REPORT ---
EXAM DESCRIPTION: CT - CTHCSPWOC - 11/13/2019 8:35 pm CLINICAL HISTORY: Trauma, head and neck injury. PAIN COMPARISON: Head C Spine Mpr Wo Con dated 10/18/2018; Head C Spine Mpr Wo Con dated 08/12/2018; Head C Spine Mpr Wo Con dated 04/22/2018; Head C Spine Mpr Wo Con dated 03/26/2018; Abdomen Pelvis Wo Con trast dated 11/13/2019 TECHNIQUE: Axial 5 mm thick images of the head were obtained. Axial 2 mm thick images of the cervical spine were obtained with sagittal and coronal reconstruction images generated and reviewed. All CT scans are performed using dose optimization technique as appropriate and may include automated exposure control or mA/KV adjustment according to patient size. FINDINGS: CT HEAD WITHOUT CONTRAST: No acute hemorrhage, hydrocephalus or extra-axial collection is identified.Mild generalized brain atr ophy is present with mild periventricular and deep white matter chronic microvascular ischemic change s.No areas of brain edema or midline shift. The paranasal sinuses and mastoids are clear.The calvarium is intact. CT CERVICAL SPINE WITHOUT CONTRAST: No fracture or subluxation.No prevertebral soft tissues swelling is identified. IMPRESSION: No acute intracranial or cervical spine findings.
--- NOTE | 2019-11-13 20:51 | RAD REPORT ---
EXAM DESCRIPTION: CT - Abdomen Pelvis Wo Contrast - 11/13/2019 8:35 pm CLINICAL HISTORY: Abdominal pain. fall. back pain COMPARISON: Abdomen Pelvis W Contrast dated 05/07/2018; Head C Spine Cap Wo Con dated 08/10/2018 TECHNIQUE: CT imaging of the abdomen and pelvis was performed without contrast. Solid organ, bowel a nd vascular assessment is limited due to lack of IV and oral contrast. All CT scans are performed using dose optimization technique as appropriate and may include automated exposure control or mA/KV adjustment according to patient size. FINDINGS: The lower lung smyth are clear.Postsurgical changes with a small hiatal hernia. The liver, spleen, pancreas, adrenal glands and kidneys are within normal limits for a limited non-co ntrast examination.Several benign appearing bilateral renal cysts are present. No bowel obstruction, free air, free fluid or abscess. The appendix is normal. Multilevel degenerative changes are present throughout the lumbar spine.Minimally displaced fracture right posterior 9, 10, eleventh and twelfth rib. Minimal fracture also right L1 and L2 transverse pro cess. IMPRESSION: Minimally displaced right inferior posterior rib fractures and right L1 and L2 right tra nsverse processes. A limited non-contrast examination was performed as detailed.
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
--- NOTE | 2019-11-13 21:23 | ER ---
Nurse's Notes [facility] Name: Tina Padron Age: 74 yrs Sex: Female : 1945 Arrival Date: 11/13/2019 Time: 19:59 Bed 17 Private MD: Diagnosis: Multiple fractures of ribs, right side;Transverse process fracture L1, L2 Presentation: 11/13 19:54 Presenting complaint: Patient states: she was walking and lost her balance and fell. aa1 C/O pain to L elbow and back. Reports she currently has several fractures in her back that they said they were just going to watch. Care prior to arrival: None. Mechanism of Injury: Fall from standing position. Trauma event details: Injury occurred in the [facility], Injury occurred: at home. Injury occurred: November 13, 2019. 19:54 Acuity: TYLOR 4 aa1 19:54 Method Of Arrival: EMS: [facility] aa1 19:54 Transition of care: patient was not received from another setting of care. Onset of aa1 symptoms was November 13, 2019. Risk Assessment: Do you want to hurt yourself or someone else? Patient reports no desire to harm self or others. Initial Sepsis Screen: Does the patient meet any 2 criteria? HR > 90 bpm. Does the patient have a suspected source of infection? No. Patient's initial sepsis screen is negative. Historical: - Allergies: 20:40 Compazine; aa1 - Home Meds: 20:40 aspirin 81 mg Oral TbEC 1 tab once daily [Active]; Zerbaxa 1.5 gram intravenous solr aa1 every 8 hours [Active]; levothyroxine 100 mcg tab 1 tab once daily [Active]; oxycodone-acetaminophen 7.5-325 mg Oral tab 1 tab every 6 hours [Active]; simvastatin 20 mg Oral tab 1 tab once daily [Active]; Flomax 0.4 mg Oral cp24 1 cap once daily [Active]; Myrbetriq 50 mg oral Tb24 1 tab once daily [Active]; Klonopin 1 mg Oral tab nightly [Active]; naloxone 0.4 mg/mL injection soln 0.5 mL as needed [Active]; - PMHx: 20:40 "shattered shoulder"; Anxiety; chronic uti; Hyperlipidemia; Hypertension; aa1 Hypothyroidism; spinal fractures; - PSHx: 20:40 left shoulder surg; Knee surgery; aa1 - Immunization history: Last tetanus immunization: - up to date. - Social history:: Smoking status: Patient/guardian denies using tobacco. - Ebola Screening: : No symptoms or risks identified at this time. Screenin:54 Abuse screen: Denies threats or abuse. Denies injuries from another. Tuberculosis aa1 screening: No symptoms or risk factors identified. 19:54 Nutritional screening: No deficits noted. Fall Risk Fall in past 12 months (25 points). aa1 Primary Survey: 19:54 NO uncontrolled hemorrhage observed. A: The patient is alert. Airway: patent, No aa1 supplemental oxygen in use on arrival. Oral cavity: clear. Breathing/Chest: Respiratory pattern: regular, Respiratory effort: spontaneous, unlabored, Breath sounds: clear, bilaterally. Chest inspection: symmetrical rise and fall of the chest. Circulation: Heart tones present. Pulses: palpable right radial artery and left radial artery. Skin color: pink, Skin temperature: warm. Disability Alert. Exposure/Environment: There is no evidence of uncontrolled external bleeding. A warming method has been applied: A warm blanket has been provided to the patient. Secondary Survey: 19:54 HEENT: No deficits noted. Gastrointestinal: Abdomen is soft. : No signs and/or aa1 symptoms were reported regarding the genitourinary system. Musculoskeletal: Circulation, motion, and sensation intact. Capillary refill < 3 seconds, Range of motion: limited in left elbow. Assessment: 19:54 General: Appears in no apparent distress. uncomfortable, Behavior is calm, cooperative, aa1 appropriate for age. Pain: Complains of pain in back and left arm and left elbow Pain currently is 10 out of 10 on a pain scale. Is continuous. Neuro: Level of Consciousness is awake, alert, obeys commands, Oriented to person, place, time, situation, Moves all extremities. Speech is normal. Respiratory: Airway is patent Respiratory effort is even, unlabored, Respiratory pattern is regular, symmetrical, Breath sounds are clear bilaterally. GI: No signs and/or symptoms were reported involving the gastrointestinal system. Abd is soft and non tender X 4 quads. : Reports she has a UTI that she is currently being treated for. EENT: No signs and/or symptoms were reported regarding the EENT system. Derm: Skin is intact, is healthy with good turgor, Skin is pink, warm \\T\\ dry. Musculoskeletal: Circulation, motion, and sensation intact. Capillary refill < 3 seconds, Range of motion: limited in left elbow. 20:24 Reassessment: Patient appears in no apparent distress at this time. Patient and/or aa1 family updated on plan of care and expected duration. Pain level reassessed. Patient is alert, oriented x 3, equal unlabored respirations, skin warm/dry/pink. Pt taken to CT at this time. 20:40 Reassessment: Patient appears in no apparent distress at this time. Patient is alert, aa1 oriented x 3, equal unlabored respirations, skin warm/dry/pink. Pt back from radiology at this time. 21:10 Reassessment: Patient appears in no apparent distress at this time. Patient and/or aa1 family updated on plan of care and expected duration. Pain level reassessed. Patient is alert, oriented x 3, equal unlabored respirations, skin warm/dry/pink. MD at bedside discussing results and POC with pt \\T\\ spouse. Awaiting RT for IS education. 22:06 Reassessment: Patient appears in no apparent distress at this time. Patient is alert, aa1 oriented x 3, equal unlabored respirations, skin warm/dry/pink. Discussed d/c \\T\\ f/u instructions with pt \\T\\ family; denies questions or concerns at this time. Patient states feeling better. 22:53 Reassessment: Attempted to contact pt/spouse to inform them that MD would like to call aa1 in prescription for antibiotics for UTI but no one answered and voicemail box is full. Will continue to attempt to reach pt/family. 11/14 18:09 Reassessment: Called in Keflex 500 mg PO TID x 7 days # 21, no refills as instructed by ss Dr. Aguilar to pharmacy of choice ([facility] in [place]). Vital Signs: 11/13 19:54 BP 140 / 60; Pulse 97; Resp 18; Temp 98.5; Pulse Ox 100% on R/A; Weight 74.84 kg; aa1 Height 5 ft. 5 in. (165.10 cm); Pain 10/10; 20:30 BP 134 / 76; Pulse 95; Resp 18; Pulse Ox 100% on R/A; aa1 21:10 BP 96 / 52; Pulse 73; Resp 16; Pulse Ox 99% on R/A; Pain 8/10; aa1 22:06 BP 96 / 67; Pulse 79; Resp 16; Temp 98.1; Pulse Ox 100% on R/A; Pain 5/10; aa1 19:54 Body Mass Index 27.46 (74.84 kg, 165.10 cm) aa1 Haley Coma Score: 19:54 Eye Response: spontaneous(4). Verbal Response: oriented(5). Motor Response: obeys aa1 commands(6). Total: 15. 20:30 Eye Response: spontaneous(4). Verbal Response: oriented(5). Motor Response: obeys aa1 commands(6). Total: 15. 21:10 Eye Response: spontaneous(4). Verbal Response: oriented(5). Motor Response: obeys aa1 commands(6). Total: 15. 22:06 Eye Response: spontaneous(4). Verbal Response: oriented(5). Motor Response: obeys aa1 commands(6). Total: 15. Trauma Score (Adult): 19:54 Eye Response: spontaneous(1); Verbal Response: oriented(1); Motor Response: obeys aa1 commands(2); Systolic BP: > 89 mm Hg(4); Respiratory Rate: 10 to 29 per min(4); [place] Score: 15; Trauma Score: 12 ED Course: 19:54 Patient has correct armband on for positive identification. Bed in low position. Call aa1 light in reach. Side rails up X2. 19:54 Arm band placed on right wrist. Patient placed in an exam room, on a stretcher. aa1 19:54 Patient maintains SpO2 saturation greater than 95% on room air. Thermoregulation: warm aa1 blanket given to patient. 19:59 Patient arrived in ED. cf2 19:59 Jake Aguilar MD is Attending Physician. ps1 20:23 Kandace Bell RN is Primary Nurse. aa1 20:30 Triage completed. aa1 20:35 CT Head C Spine In Process Unspecified. EDMS 20:35 CT Abd/Pelvis - Without Contrast In Process Unspecified. EDMS 21:17 Elbow Left 3 View XRAY In Process Unspecified. EDMS 21:20 Phil Gallego MD is Referral Physician. ps1 21:37 Urine Microscopic Only Sent. ds4 22:06 No provider procedures requiring assistance completed. Patient did not have IV access aa1 during this emergency room visit. Administered Medications: 20:23 Drug: [place] 10 mg-325 mg 1 tabs Route: PO; aa1 21:23 Follow up: Response: No adverse reaction; Pain is decreased aa1 Outcome: 21:22 Discharge ordered by MD. ps1 22:06 Discharged to home via wheelchair, with significant other. aa1 22:06 Condition: good 22:06 Discharge instructions given to patient, significant other, Instructed on discharge instructions, follow up and referral plans. medication usage, Demonstrated understanding of instructions, follow-up care, medications. 22:08 Patient left the ED. aa1 Addendum: 11/20/2019 16:20 Addendum: Culture Results: Positive urine culture. Phone call Attempt #1 Pt's a a5 pt is currently admitted at [facility] in [place], [place] and results were faxed to [facility] at [place], [place] per 's request. Signatures: Dispatcher [employer] EDMS Kandace Bell RN RN aa1 Dalia Rosen RN RN aa5 Racheal Thomas RN RN ss Swanson, Donovan ds4 Jake Aguilar MD MD ps1 Vitaly Sauceda cf2
[2019-11-13 21:45] LABS: Urine Blood TRACE (NEG); Urine Glucose NEGATIVE (NEG); Urine Protein NEGATIVE (NEG)
[2019-11-13 22:03] LABS: Urine Bacteria <20 /HPF (<20); Urine Culture Reflex Order REFLEXED
[2019-11-13 22:17] VITALS: BP 96/67; TEMP 98.1; O2SAT 100
--- NOTE | 2019-11-14 08:33 | RAD REPORT ---
EXAM DESCRIPTION: RAD - Elbow Left 3 View - 11/13/2019 9:17 pm CLINICAL HISTORY: PAIN Fall, pain COMPARISON: No comparisons FINDINGS: No fracture or dislocation is evident.
== END 2019-11-13 22:08 | disposition home or self-care (01) ==
LOC: ER 19:51
DX: S22.41XA Multiple fractures of ribs, right side, initial encounter for closed fracture (principal); S32.019A Unspecified fracture of first lumbar vertebra, initial encounter for closed fracture; S32.029A Unspecified fracture of second lumbar vertebra, initial encounter for closed fracture; M25.522 Pain in left elbow; W19.XXXA Unspecified fall, initial encounter; Y93.89 Activity, other specified; Y92.9 Unspecified place or not applicable; I10 Essential (primary) hypertension; F41.9 Anxiety disorder, unspecified; E03.9 Hypothyroidism, unspecified; E78.5 Hyperlipidemia, unspecified; Z88.1 Allergy status to other antibiotic agents; Z79.82 Long term (current) use of aspirin
CPT/HCPCS: 70450; 72125; 74176; 81003; 81015; 87077; 87086; 87088; 87186; 99284

== ENCOUNTER 2020-01-01 23:04 | Emergency (ER) | payer OTHER, BC ==
[2020-01-02] MEDS ORDERED: MORPHINE 4 MG/ML SYR ONE (00:11)
[2020-01-02] MEDS ORDERED: ONDANSETRON 4 MG/2 ML VIAL ONE (00:13)
[2020-01-02 00:40] LABS: Absolute Lymphocytes (CBC) 0.7 K/uL (0.7-4.9); Basophils % 0.6 % (0-1.3); Hematocrit 35.2 % (36.0-45.0); Lymphocytes % 11.8 % (15.3-44.8); MPV 8.7 fL (7.6-11.3); RBC Red Blood Cell Count 3.67 M/uL (3.86-4.86)
[2020-01-02 00:42] LABS: Protime INR 0.86
[2020-01-02 00:52] LABS: Potassium 3.8 mmol/L (3.5-5.1)
--- NOTE | 2020-01-02 01:51 | EDPHYS ---
Physician Documentation [facility] Name: Tina Padron Age: 74 yrs Sex: Female : 1945 Arrival Date: 01/01/2020 Time: 23:12 Bed 18 Private MD: ED Physician Chintan Ramírez HPI: 12/31 23:55 This 74 yrs old Female presents to ER via EMS with complaints of shoulder rn injury, possible syncope. 23:55 The patient or guardian complains of contusion, decreased range of motion, an injury, rn pain. left shoulder. Onset: The symptoms/episode began/occurred just prior to arrival. Modifying factors: the symptoms are alleviated by remaining still, The symptoms are aggravated by movement, rotation of arm. Severity of symptoms: At their worst the symptoms were moderate, in the emergency department the symptoms are unchanged. The patient has experienced similar episodes in the past. Reports got up from bed, walked to kitchen got extremely dizzy, felt like was spinning, then ended up on floor, heard cry for help. Patient not sure if passed out or not. No preceding chest pain/sob/abd pain. reports has not been eating/drinking lately because trying to lose more weight. Goal is to lose 4 more pounds. Reports mild neck pain but has had neck injury in past. No known LOC. Reports only pain to left shoulder which she has had surgery in past. . Historical: - Allergies: 23:41 Compazine; rr5 - Home Meds: 23:51 aspirin 81 mg Oral TbEC 1 tab once daily [Active]; Uribel 118-10-40.8-36 mg oral cap wh daily [Active]; Synthroid 88 mcg Oral tab 1 tab once daily [Active]; oxycodone-acetaminophen 7.5-325 mg Oral tab 1 tab every 6 hours [Active]; potassium chloride 20 mEq Oral TbTQ 1 tab 2 times per day [Active]; simvastatin 20 mg Oral tab 1 tab once daily [Active]; meclizine 25 mg Oral tab 1 tab as needed [Active]; losartan 50 mg oral tab 1 tab 2 times per day [Active]; omeprazole 40 mg Oral cpDR 1 cap once daily [Active]; Azo-Standard Oral as needed [Active]; clonazepam 1 mg Oral tab 1 tab nightly [Active]; pantoprazole 20 mg oral TbEC 1 tab once daily [Active]; Flomax 0.4 mg Oral cp24 1 cap once daily [Active]; - PMHx: 23:41 "shattered shoulder"; Anxiety; chronic uti; Hyperlipidemia; Hypertension; rr5 Hypothyroidism; spinal fractures; - PSHx: 23:41 Cholecystectomy; Gastric Bypass; Shoulder Surgery; rr5 - Immunization history: Last tetanus immunization: unknown. - Social history:: Smoking status: Patient/guardian denies using. - Family history:: not pertinent. - Hospitalizations: : No recent hospitalization is reported. ROS: 23:55 Constitutional: Negative for fever, chills, and weight loss, Eyes: Negative for injury, rn pain, redness, and discharge, Neck: + mild left sided neck pain Cardiovascular: Negative for chest pain, palpitations, and edema, Respiratory: Negative for shortness of breath, cough, wheezing, and pleuritic chest pain, Abdomen/GI: Negative for abdominal pain, nausea, vomiting, diarrhea, and constipation, Back: Negative for injury and pain, MS/Extremity: + left shoulder injury and pain Skin: Negative for injury, rash, and discoloration, Neuro: Negative for headache, weakness, numbness, tingling, and seizure. Exam: 23:55 Constitutional: This is a well developed, well nourished patient who is awake, alert, rn and in no acute distress. Sitting upright, no acute distress. Head/Face: Normocephalic, atraumatic. Eyes: Pupils equal round and reactive to light, extra-ocular motions intact. No nystagmus. ENT: dry MM Neck: No cervical midline tenderness Chest/axilla: Normal chest wall appearance and motion. Nontender with no deformity. Cardiovascular: Regular rate and rhythm. No pulse deficits. Respiratory: No increased work of breathing, no retractions or nasal flaring. Abdomen/GI: soft, non-tender Back: No spinal tenderness. MS/ Extremity: Pulses equal, no cyanosis. + left shoulder painful ROM and tenderness, no gross deformity or ecchymosis. No open wounds. Neuro: Awake and alert, GCS 15, oriented to person, place, time, and situation. Cranial nerves II-XII grossly intact. Motor strength 4/5 in all extremities. Sensory grossly intact. Vital Signs: 23:30 BP 122 / 57; Pulse 68; Resp 18; Temp 98.2; Pulse Ox 99% ; Weight 66.22 kg; Height 5 ft. rr5 5 in. (165.10 cm); Pain 9/10; 01/01 01:00 BP 138 / 48; Pulse 64; Resp 18; Pulse Ox 99% on R/A; wh 02:00 BP 131 / 61; Pulse 63; Resp 18; Pulse Ox 98% on R/A; wh 12/31 23:30 Body Mass Index 24.30 (66.22 kg, 165.10 cm) rr5 [place] Coma Score: 12/31 23:30 Eye Response: spontaneous(4). Verbal Response: oriented(5). Motor Response: obeys rr5 commands(6). Total: 15. Trauma Score (Adult): 23:30 Eye Response: spontaneous(1); Verbal Response: oriented(1); Motor Response: obeys rr5 commands(2); Systolic BP: > 89 mm Hg(4); Respiratory Rate: 10 to 29 per min(4); [place] Score: 15; Trauma Score: 12 MDM: 23:18 Patient medically screened. rn 01/01 01:45 Differential diagnosis: humeral head fracture. Data reviewed: vital signs, nurses rn notes, lab test result(s), EKG, radiologic studies, plain films, and as a result, I will discharge patient. Counseling: I had a detailed discussion with the patient and/or guardian regarding: the historical points, exam findings, and any diagnostic results supporting the discharge/admit diagnosis, lab results, radiology results, the need for outpatient follow up, to return to the emergency department if symptoms worsen or persist or if there are any questions or concerns that arise at home. Response to treatment: the patient's symptoms have markedly improved after treatment, and as a result, I will discharge patient. Special discussion: I discussed with the patient/guardian in detail that at this point there is no indication for admission to the hospital. It is understood, however, that if the symptoms persist or worsen the patient needs to return immediately for re-evaluation. Based on the history and exam findings, there is no indication for further emergent testing or inpatient evaluation. I discussed with the patient/guardian the need to see the orthopedic surgeon for further evaluation of the symptoms. I discussed with the patient/guardian the need to see the primary care provider for further evaluation of the symptoms. ED course: + left humeral fracture, placed in sling, no acute findings on ct head/cspine, no change in ecg, no acute findings in bloodwork, will dc home. Has pain meds for chronic pain, takes Percocet at home. . 12/31 23:44 Order name: Basic Metabolic Panel; Complete Time: 01:04 rn 12/31 23:44 Order name: CBC with Diff; Complete Time: 01: rn 12/31 23:44 Order name: XRAY Shoulder LEFT 2 view rn 12/31 23:44 Order name: CT Head C Spine rn 12/31 23:44 Order name: Protime (+inr); Complete Time: 01: rn 12/31 23:44 Order name: Ptt, Activated; Complete Time: 01: rn 12/31 23:44 Order name: EKG; Complete Time: 23:45 rn 12/31 23:44 Order name: Cardiac monitoring; Complete Time: 00:25 rn 12/31 23:44 Order name: EKG - Nurse/Tech; Complete Time: 00:25 rn 12/31 23:44 Order name: IV Saline Lock; Complete Time: 00:25 rn 12/31 23:44 Order name: Labs collected and sent; Complete Time: 00:26 rn 12/31 23:44 Order name: NPO; Complete Time: 00:26 rn 12/31 23:44 Order name: O2 Per Protocol; Complete Time: 00:26 rn 12/31 23:44 Order name: O2 Sat Monitoring; Complete Time: 00:26 rn 01/01 01:12 Order name: Sling; Complete Time: 01:25 rn Administered Medications: 00:25 Drug: morphine 4 mg Route: IVP; Site: right hand; 02:09 Follow up: Response: No adverse reaction; Pain is decreased; RASS: Alert and Calm (0) 00:27 Drug: Zofran (Ondansetron) 4 mg Route: IVP; Site: right hand; 02:09 Follow up: Response: No adverse reaction; Nausea is decreased Disposition: 01/02/20 01:49 Discharged to Home. Impression: Dehydration, Syncope and collapse, Displaced transverse fracture of shaft of humerus, left arm. - Condition is Stable. - Discharge Instructions: Dehydration, Adult, Humerus Fracture Treated With Immobilization, Syncope. - Medication Reconciliation Form, Thank You Letter, Antibiotic Education, Prescription Opioid Use form. - Follow up: Private Physician; When: 5 - 6 days; Reason: Recheck today's complaints, Re-evaluation by your physician. - Problem is new. - Symptoms have improved. Signatures: Dispatcher [employer] EDMS Chintan Ramírez MD MD rn Habalo, Qasim Brunson, RN RN rr5 Corrections: (The following items were deleted from the chart) 02:10 01:49 01/02/2020 01:49 Discharged to Home. Impression: Dehydration; Syncope and wh collapse; Displaced transverse fracture of shaft of humerus, left arm. Condition is Stable. Forms are Medication Reconciliation Form, Thank You Letter, Antibiotic Education, Prescription Opioid Use. Follow up: Private Physician; When: 5 - 6 days; Reason: Recheck today's complaints, Re-evaluation by your physician. Problem is new. Symptoms have improved. rn 02:56 02:10 01/02/2020 01:49 Discharged to Home. Impression: Dehydration; Syncope and wh collapse; Displaced transverse fracture of shaft of humerus, left arm. Condition is Stable. Discharge Instructions: Dehydration, Adult, Humerus Fracture Treated With Immobilization, Syncope. Forms are Medication Reconciliation Form, Thank You Letter, Antibiotic Education, Prescription Opioid Use. Follow up: Private Physician; When: 5 - 6 days; Reason: Recheck today's complaints, Re-evaluation by your physician. Problem is new. Symptoms have improved.
--- NOTE | 2020-01-02 01:51 | ER ---
Nurse's Notes [facility] Name: Tina Padron Age: 74 yrs Sex: Female : 1945 Arrival Date: 01/01/2020 Time: 23:12 Bed 18 Private MD: Diagnosis: Dehydration;Syncope and collapse;Displaced transverse fracture of shaft of humerus, left arm Presentation: 12/31 23:13 Chief complaint: EMS states: Pt fell from a standing position. Pt stated she felt dizzy wh and lightheaded and the blacked out. Pt C/O left shoulder pain. Pt states Hx of left shoulder surgery. Care prior to arrival: None. Mechanism of Injury: Fall from standing position. Trauma event details: Injury occurred in the [facility]. 23:13 Acuity: TYLOR 3 23:13 Method Of Arrival: EMS: [facility] 23:33 Coronavirus screen: The patient has NOT traveled to [place] in the past 14 days. Ebola rr5 Screen: Patient negative for fever greater than or equal to 101.5 degrees Fahrenheit, and additional compatible Ebola Virus Disease symptoms. Initial Sepsis Screen: Does the patient meet any 2 criteria? No. Patient's initial sepsis screen is negative. Does the patient have a suspected source of infection? No. Patient's initial sepsis screen is negative. Risk Assessment: Do you want to hurt yourself or someone else? Patient reports no desire to harm self or others. 23:33 Onset of symptoms was January 01, 2020. rr5 Trauma Activation: Physician: ED Physician; Name: ; Notified At: 23:15; Arrived At: 23:15 Physician: General Surgeon; Name: ; Notified At: 23:15; Arrived At: Physician: Radiology; Name: ; Notified At: 23:15; Arrived At: Physician: Respiratory; Name: ; Notified At: 23:15; Arrived At: Physician: Lab; Name: ; Notified At: 23:15; Arrived At: Historical: - Allergies: 23:41 Compazine; rr5 - Home Meds: 23:51 aspirin 81 mg Oral TbEC 1 tab once daily [Active]; Uribel 118-10-40.8-36 mg oral cap wh daily [Active]; Synthroid 88 mcg Oral tab 1 tab once daily [Active]; oxycodone-acetaminophen 7.5-325 mg Oral tab 1 tab every 6 hours [Active]; potassium chloride 20 mEq Oral TbTQ 1 tab 2 times per day [Active]; simvastatin 20 mg Oral tab 1 tab once daily [Active]; meclizine 25 mg Oral tab 1 tab as needed [Active]; losartan 50 mg oral tab 1 tab 2 times per day [Active]; omeprazole 40 mg Oral cpDR 1 cap once daily [Active]; Azo-Standard Oral as needed [Active]; clonazepam 1 mg Oral tab 1 tab nightly [Active]; pantoprazole 20 mg oral TbEC 1 tab once daily [Active]; Flomax 0.4 mg Oral cp24 1 cap once daily [Active]; - PMHx: 23:41 "shattered shoulder"; Anxiety; chronic uti; Hyperlipidemia; Hypertension; rr5 Hypothyroidism; spinal fractures; - PSHx: 23:41 Cholecystectomy; Gastric Bypass; Shoulder Surgery; rr5 - Immunization history: Last tetanus immunization: unknown. - Social history:: Smoking status: Patient/guardian denies using. - Family history:: not pertinent. - Hospitalizations: : No recent hospitalization is reported. Screenin:29 Abuse screen: Denies threats or abuse. Denies injuries from another. Nutritional rr5 screening: No deficits noted. Tuberculosis screening: No symptoms or risk factors identified. Fall Risk Fall in past 12 months (25 points). Primary Survey: 23:29 NO uncontrolled hemorrhage observed. A: The patient is alert. Airway: patent. rr5 Breathing/Chest: Respiratory pattern: regular, Respiratory effort: spontaneous, unlabored, Breath sounds: clear. Circulation: Heart tones present. Disability Alert. Exposure/Environment: All clothing and personal items were removed. Forensic evidence collection is not deemed to be indicated at this time. Items placed in patient belonging bag. There is no evidence of uncontrolled external bleeding. A warming method has been applied: A warm blanket has been provided to the patient. 23:29 A: No supplemental oxygen in use on arrival. Breathing/Chest: Chest inspection: rr5 symmetrical rise and fall of the chest. Circulation: Pulses: palpable right radial artery and left radial artery. Skin color: pink, Skin temperature: warm. 23:29 Exposure/Environment: Obvious injury(ies) are noted at this time: left shoulder rr5 deformity noted. limited ROM on the left shoulder. 01/01 00:30 Reassessment Airway Airway Patent Breathing/Chest Respiratory pattern Regular rr5 Respiratory effort Spontaneous Unlabored Breath sounds Clear Chest inspection Symmetrical Circulation Heart tones Present Pulses Palpable Color [place] Temperature Warm Dry Disability Alert. Secondary Survey: 12/31 23:20 HEENT: No deficits noted. Gastrointestinal: No deficits noted. : No signs and/or rr5 symptoms were reported regarding the genitourinary system. Musculoskeletal: Circulation, motion, and sensation intact. Capillary refill < 3 seconds, Range of motion: limited in left shoulder Reports pain in left shoulder. Assessment: 23:31 General: Appears in no apparent distress. Behavior is calm, cooperative, appropriate rr5 for age. Pain: Complains of pain in left shoulder Pain does not radiate. Pain currently is 9 out of 10 on a pain scale. Quality of pain is described as aching, Pain began 30 min ago. Neuro: Level of Consciousness is awake, alert, obeys commands, Oriented to person, place, time, situation, Appropriate for age. Cardiovascular: Heart tones S1 S2. Respiratory: Airway is patent Respiratory effort is even, unlabored, Respiratory pattern is regular, symmetrical, Breath sounds are clear bilaterally. GI: Abdomen is flat, non-distended. : Pt has stimulator for urine functions surgically placed at her back. EENT: No signs and/or symptoms were reported regarding the EENT system. Derm: Skin is intact. Musculoskeletal: Range of motion: limited in left shoulder. 01/01 00:45 Reassessment: Patient appears in no apparent distress at this time. No changes from previously documented assessment. Patient and/or family updated on plan of care and expected duration. Pain level reassessed. Patient is alert, oriented x 3, equal unlabored respirations, skin warm/dry/pink. Vital Signs: 12/31 23:30 BP 122 / 57; Pulse 68; Resp 18; Temp 98.2; Pulse Ox 99% ; Weight 66.22 kg; Height 5 ft. rr5 5 in. (165.10 cm); Pain 9/10; 01/01 01:00 BP 138 / 48; Pulse 64; Resp 18; Pulse Ox 99% on R/A; wh 02:00 BP 131 / 61; Pulse 63; Resp 18; Pulse Ox 98% on R/A; 12/31 23:30 Body Mass Index 24.30 (66.22 kg, 165.10 cm) rr5 [place] Coma Score: 12/31 23:30 Eye Response: spontaneous(4). Verbal Response: oriented(5). Motor Response: obeys rr5 commands(6). Total: 15. Trauma Score (Adult): 23:30 Eye Response: spontaneous(1); Verbal Response: oriented(1); Motor Response: obeys rr5 commands(2); Systolic BP: > 89 mm Hg(4); Respiratory Rate: 10 to 29 per min(4); [place] Score: 15; Trauma Score: 12 ED Course: 23:12 Patient arrived in ED. 23:15 Triage completed. 23:18 Chintan Ramírez MD is Attending Physician. rn 23:25 Caron Howell is Primary Nurse. wh 23:42 Arm band placed on right wrist. rr5 23:42 Patient has correct armband on for positive identification. Placed in gown. Bed in low rr5 position. Call light in reach. Side rails up X 1. Pulse ox on. NIBP on. 23:42 Patient maintains SpO2 saturation greater than 95% on room air. rr5 23:42 Thermoregulation: warm blanket given to patient. rr5 03/04 00:07 XRAY Shoulder LEFT 2 view In Process Unspecified. EDMS 00:20 Initial lab(s) drawn, by al, sent to lab. Inserted saline lock: 24 gauge in right hand, fc using aseptic technique. Blood collected. 01:08 CT Head C Spine In Process Unspecified. EDMS 02:07 No provider procedures requiring assistance completed. IV discontinued, intact, bleeding controlled, No redness/swelling at site. 02:55 Primary Nurse role handed off by Caron Howell Administered Medications: 00:25 Drug: morphine 4 mg Route: IVP; Site: right hand; 02:09 Follow up: Response: No adverse reaction; Pain is decreased; RASS: Alert and Calm (0) 00:27 Drug: Zofran (Ondansetron) 4 mg Route: IVP; Site: right hand; 02:09 Follow up: Response: No adverse reaction; Nausea is decreased Intake: 02:08 PO: 120ml; Total: 120ml. Output: 02:08 Urine: 250ml (Voided); Total: 250ml. Outcome: 01:49 Discharge ordered by . rn 02:08 Discharged to home via wheelchair, with family. 02:08 Condition: stable 02:08 Discharge instructions given to patient, family, Instructed on discharge instructions, follow up and referral plans. POC Demonstrated understanding of instructions, follow-up care, splint care, POC 02:09 Patient's length of stay was not longer than 2 hours. 02:10 Patient left the ED. 02:56 Patient left the ED. Signatures: Dispatcher [employer] EDMS Rema Odonnell RN RN fc Nieto, Roman, MD MD rn Habalo, Winsy Qasim Galvin RN RN rr5 Corrections: (The following items were deleted from the chart) 02:12 03/03 23:41 Reassessment Airway Airway Patent Breathing/Chest Respiratory pattern rr5 Regular Respiratory effort Spontaneous Unlabored Breath sounds Clear rr5
[2020-01-02 02:41] VITALS: TEMP 98.2
[2020-01-02 02:43] VITALS: BP 131/61; O2SAT 98
--- NOTE | 2020-01-02 08:24 | EKG ---
Test Date: 2020-01-02 Test Time: 00:01:41 Respite Care Provider: SIMONA MEASUREMENT RESULTS: Intervals: Rate: 67 [place]: 190 QRSD: 80 QT: 440 QTc: 464 Avis: P: 68 AZ: 190 QRS: 12 T: 40 INTERPRETIVE STATEMENTS: Normal sinus rhythm ST & T wave abnormality, consider anterior ischemia Abnormal ECG Compared to ECG 08/10/2018 06:04:07 Sinus bradycardia no longer present ST (T wave) deviation still present Possible ischemia still present Electronically Signed On 01-02-20 08:23:36 HOP STRAINER by Mustapha Blevins
--- NOTE | 2020-01-02 10:21 | RAD REPORT ---
EXAM DESCRIPTION: 1. CT HEAD without IV contrast 2. CT CERVICAL SPINE without IV contrast. CLINICAL HISTORY: Possible syncope/fall, known previous cervical fracture TECHNIQUE: Multiple axial CT images of the brain and cervical spine were performed followed by sagit ross and coronal reconstructed images. The CT study is performed according to ALARA (as low as reasona cailin achievable) or ALARA/IMAGE GENTLY, with automatic adjustment of mA and/or kV according to patient size. Performed on: 01/02/2020 at 12:36 AM COMPARISON: Prior head CT and cervical spine CT performed on 11/13/2019. FINDINGS: CT HEAD: There is no evidence of mass, acute mass effect or midline shift. There are no acute extra-axial flui d collections. There is no evidence of acute intracranial hemorrhage. The cerebral sulci and ventricles are prominent consistent with mild cerebral volume loss. There are scattered areas of decreased attenuation within the subcortical and periventricular white m atter most likely due to mild chronic microangiopathy. There is stable moderate mucosal thickening of the posterior right ethmoid air cells. There is mild o pacification of the inferior right mastoid air cells. The orbital contents are grossly unremarkable. No acute osseous abnormalities are identified. No focal soft tissue abnormalities are identified. CT CERVICAL SPINE: The cervical vertebrae are normal in height. There is normal alignment of the vertebrae. The disc spa ora reveal stable minimal disc space narrowing throughout the cervical spine. Bone mineralization i s slightly diminished. The atlanto-axial articulation is preserved and the odontoid process is inta ct. There is normal alignment of the facet joints on the parasagittal images. There are mild degenerative changes of the cervical spine. There is no evidence of acute fracture or subluxation. There is no significant canal stenosis. Ther e is multilevel neural foraminal stenosis secondary to uncovertebral joint and facet joint hypertroph y. These findings are most pronounced on the right at C3-C4 and C4-C5 and mild bilateral neural quyen inal stenosis at C5-C6 and C6-C7. The paravertebral and paraspinal soft tissues are unremarkable. The lung apices are clear. IMPRESSION: CT HEAD: 1. There is no evidence of acute intracranial pathology. 2. Mild cerebral atrophy with findings compatible with mild chronic microangiopathy. 3. Stable moderate mucosal thickening of the posterior right ethmoid air cells and mild opacification of the inferior right mastoid air cells. CT CERVICAL SPINE: 1. No evidence of acute osseous injury involving the cervical spine. 2. Degenerative changes as described above. Electronically signed by: Andra Mendoza DO 01/02/2020 1:33 AM SILK SPOOLER Due to temporary technical issues with the PACS/Fluency reporting system, reports are being signed by the in house radiologist as a courtesy to ensure prompt reporting. The interpreting radiologist is f ully responsible for the content of the report.
--- NOTE | 2020-01-02 11:18 | RAD REPORT ---
EXAM DESCRIPTION: Shoulder Left 2 View CLINICAL HISTORY: PAIN COMPARISON: None. TECHNIQUE: XR SHOULDER 2 OR MORE VIEWS 01/01/2020 11:44 PM DAIRY PROCESSING EQUIPMENT OPERATOR FINDINGS: There is a fracture of the lateral aspect of the humeral head with mild displacement. Ther e is an old fracture of the lateral aspect of the left clavicle. Joint spaces are preserved. Soft t issues are unremarkable. IMPRESSION: Humeral head fracture. Electronically signed by: Willard Leal MD 01/02/2020 12:58 AM DAIRY PROCESSING EQUIPMENT OPERATOR Due to temporary technical issues with the PACS/Fluency reporting system, reports are being signed by the in house radiologist as a courtesy to ensure prompt reporting. The interpreting radiologist is f ully responsible for the content of the report.
== END 2020-01-02 02:56 | disposition home or self-care (01) ==
LOC: ER 23:04
DX: S42.322A Displaced transverse fracture of shaft of humerus, left arm, initial encounter for closed fracture (principal); E86.0 Dehydration; W19.XXXA Unspecified fall, initial encounter; Y93.01 Activity, walking, marching and hiking; Y92.9 Unspecified place or not applicable; I10 Essential (primary) hypertension; F41.9 Anxiety disorder, unspecified; Z79.82 Long term (current) use of aspirin; Z88.8 Allergy status to other drugs, medicaments and biological substances
CPT/HCPCS: 93005; 85025; 80048; 36415; 85610; 85730; 70450; 72125; 73030; 96375; 96374; 99284; J2405

== ENCOUNTER 2020-02-06 11:47 | Inpatient (IN) | payer OTHER, BC ==
[2020-02-06] MEDS ORDERED: NA CHLORIDE 0.9% 3,000 ML ONE (13:07)
[2020-02-06] MEDS ORDERED: WATER FOR INJ,STERILE 10 ML ONE (13:07)
[2020-02-06] MEDS ORDERED: FAMOTIDINE 20 MG/2 ML VIAL IV ONE (13:07)
[2020-02-06] MEDS ORDERED: HYDROCORTISONE SUC 100 MG INJ ONE (13:07)
[2020-02-06 13:23] LABS: Protime INR 0.99
[2020-02-06 13:24] LABS: Absolute Lymphocytes (CBC) 0.6 K/uL (0.7-4.9); Basophils % 0.4 % (0-1.3); Hematocrit 37.7 % (36.0-45.0); Lymphocytes % 2.6 % (15.3-44.8); MPV 8.5 fL (7.6-11.3)
[2020-02-06 13:50] LABS: Albumin 3.2 g/dL (3.4-5.0); Bilirubin Direct 0.2 mg/dL (0-0.2); Bilirubin Total 0.4 mg/dL (0.2-1.0); Potassium 3.1 mmol/L (3.5-5.1); Protein, Total 6.5 g/dL (6.4-8.2); Troponin (Emerg Dept Use Only) 0.05 ng/mL (0.0-0.045)
[2020-02-06 13:51] LABS: CKMB Creatine Kinase MB 19.7 ng/mL (0.3-3.6)
--- NOTE | 2020-02-06 13:51 | EDPHYS ---
Physician Documentation [facility] Name: Tina Padron Age: 74 yrs Sex: Female : 1945 Arrival Date: 02/06/2020 Time: 11:49 Bed 5 Private MD: BARNEY Physician Mateo Fox HPI: 02/05 13:00 This 74 yrs old Female presents to ER via EMS with complaints of General alec Weakness, Diarrhea. 13:00 The patient presents to the emergency department with nausea, vomiting, that is alec continuous. The patient presents to the emergency department with diarrhea, that is continuous. Onset: The symptoms/episode began/occurred 3 day(s) ago. Possible causes: unknown. The symptoms are aggravated by nothing. movement, The symptoms are alleviated by nothing. remaining still. Severity of symptoms: At their worst the symptoms were severe in the emergency department the symptoms are unchanged. It is unknown whether or not the patient has had similar symptoms in the past. Historical: - Allergies: 12:08 Compazine; iw - Home Meds: 12:08 aspirin 81 mg Oral TbEC 1 tab once daily [Active]; Azo-Standard Oral as needed iw [Active]; clonazepam 1 mg Oral tab 1 tab nightly [Active]; Flomax 0.4 mg Oral cp24 1 cap once daily [Active]; losartan 50 mg Oral tab 1 tab 2 times per day [Active]; meclizine 25 mg Oral tab 1 tab as needed [Active]; omeprazole 40 mg Oral cpDR 1 cap once daily [Active]; oxycodone-acetaminophen 7.5-325 mg Oral tab 1 tab every 6 hours [Active]; pantoprazole 20 mg Oral TbEC 1 tab once daily [Active]; potassium chloride 20 mEq Oral TbTQ 1 tab 2 times per day [Active]; simvastatin 20 mg Oral tab 1 tab once daily [Active]; Synthroid 88 mcg Oral tab 1 tab once daily [Active]; Uribel 118-10-40.8-36 mg Oral cap daily [Active]; - PMHx: 12:08 "shattered shoulder"; Anxiety; chronic uti; Hyperlipidemia; Hypertension; iw Hypothyroidism; spinal fractures; - PSHx: 12:08 Cholecystectomy; Gastric Bypass; Shoulder Surgery; iw - Immunization history:: Adult Immunizations unknown. - Social history:: Smoking status: Patient denies any tobacco usage or history of. ROS: 13:01 Constitutional: Negative for fever, chills, and weight loss, Eyes: Negative for injury, alec pain, redness, and discharge, ENT: Negative for injury, pain, and discharge, Neck: Negative for injury, pain, and swelling, Cardiovascular: Negative for chest pain, palpitations, and edema, Respiratory: Negative for shortness of breath, cough, wheezing, and pleuritic chest pain, Back: Negative for injury and pain, : Negative for injury, bleeding, discharge, and swelling, MS/Extremity: Negative for injury and deformity, Neuro: Negative for headache, weakness, numbness, tingling, and seizure, Psych: Negative for depression, anxiety, suicide ideation, homicidal ideation, and hallucinations, Allergy/Immunology: Negative for hives, rash, and allergies, Endocrine: Negative for neck swelling, polydipsia, polyuria, polyphagia, and marked weight changes, Hematologic/Lymphatic: Negative for swollen nodes, abnormal bleeding, and unusual bruising. 13:01 Abdomen/GI: Positive for nausea, vomiting, diarrhea. Exam: 13:01 Constitutional: This is a well developed, well nourished patient who is awake, alert, alec and in no acute distress. Head/Face: Normocephalic, atraumatic. Eyes: Pupils equal round and reactive to light, extra-ocular motions intact. Lids and lashes normal. Conjunctiva and sclera are non-icteric and not injected. Cornea within normal limits. Periorbital areas with no swelling, redness, or edema. Neck: Trachea midline, no thyromegaly or masses palpated, and no cervical lymphadenopathy. Supple, full range of motion without nuchal rigidity, or vertebral point tenderness. No Meningismus. Chest/axilla: Normal chest wall appearance and motion. Nontender with no deformity. No lesions are appreciated. Cardiovascular: Regular rate and rhythm with a normal S1 and S2. No gallops, murmurs, or rubs. Normal PMI, no JVD. No pulse deficits. Respiratory: Lungs have equal breath sounds bilaterally, clear to auscultation and percussion. No rales, rhonchi or wheezes noted. No increased work of breathing, no retractions or nasal flaring. Abdomen/GI: Soft, non-tender, with normal bowel sounds. No distension or tympany. No guarding or rebound. No evidence of tenderness throughout. Back: No spinal tenderness. No costovertebral tenderness. Full range of motion. Female : Normal external genitalia. MS/ Extremity: Pulses equal, no cyanosis. Neurovascular intact. Full, normal range of motion. Psych: Awake, alert, with orientation to person, place and time. Behavior, mood, and affect are within normal limits. 13:01 ENT: Mouth: Oral mucosa: dry. 13:01 Respiratory: the patient does not display signs of respiratory distress, Respirations: normal, Breath sounds: decreased breath sounds. 13:01 Abdomen/GI: Inspection: abdomen appears normal, Bowel sounds: normal, Palpation: mild abdominal tenderness, Liver: no appreciated palpable abnormalities, Hernia: not appreciated. Vital Signs: 12:03 BP 84 / 61; Pulse 91; Resp 16 S; Temp 97.3(TE); Pulse Ox 98% on R/A; Weight 66.22 kg; iw Height 5 ft. 2 in. (157.48 cm); 13:00 BP 82 / 69; Pulse 92; Resp 18; Pulse Ox 96% ; bp 14:00 BP 122 / 97; Pulse 74; Resp 15; Pulse Ox 99% on R/A; hb 15:00 BP 103 / 69; Pulse 74; Resp 16; Pulse Ox 99% ; bp 16:07 BP 106 / 58; Pulse 72; Resp 16; Pulse Ox 98% ; bp 16:59 BP 107 / 61; Pulse 72; Resp 21; Pulse Ox 98% ; bp 12:03 Body Mass Index 26.70 (66.22 kg, 157.48 cm) Procedures: 13:02 Central Line: the site was prepped with Betadine, in sterile fashion, a triple lumen [facility] catheter was inserted, in the right femoral vein, in 4 attempts. placement was verified, by blood return, the site was dressed with using sterile technique, the patient tolerated the procedure, well. MDM: 12:05 Patient medically screened. [facility] 13:02 Data reviewed: vital signs, nurses notes, lab test result(s), EKG, radiologic studies, [facility] CT scan, plain films. 02/05 12:54 Order name: Amylase, Serum; Complete Time: 13:53 [facility] 02/05 12:54 Order name: Basic Metabolic Panel; Complete Time: 13:53 [facility] 02/05 12:54 Order name: Blood Culture Adult (2) [facility] 02/05 12:54 Order name: CBC with Diff alec 02/05 12:54 Order name: Ckmb; Complete Time: 13:53 [facility] 02/05 12:54 Order name: CPK; Complete Time: 13:53 [facility] 02/05 12:54 Order name: Lactate; Complete Time: 13:48 [facility] 02/05 12:54 Order name: LFT's; Complete Time: 13:53 [facility] 02/05 12:54 Order name: Lipase; Complete Time: 13:53 [facility] 02/05 12:54 Order name: Procalcitonin; Complete Time: 16:08 [facility] 02/05 12:54 Order name: Protime (+inr); Complete Time: 13:48 [facility] 02/05 12:54 Order name: Ptt, Activated; Complete Time: 13:48 [facility] 02/05 12:54 Order name: Troponin (emerg Dept Use Only); Complete Time: 13:53 [facility] 02/05 12:54 Order name: Urine Microscopic Only; Complete Time: 16:08 [facility] 02/05 12:54 Order name: Chest Single View XRAY; Complete Time: 16:08 [facility] 02/05 12:59 Order name: Magnesium; Complete Time: 16:08 [facility] 02/05 12:59 Order name: NT PRO-BNP; Complete Time: 16:08 [facility] 02/05 12:59 Order name: CT Traumagram (Head C Spine CAP wo con); Complete Time: 14:05 [facility] 02/05 12:59 Order name: Stool Culture [facility] 02/05 12:59 Order name: Fecal Leukocyte Stain [facility] 02/05 13:00 Order name: TSH; Complete Time: 16:08 [facility] 02/05 13:35 Order name: Urine Dipstick--Ancillary (enter results); Complete Time: 14:05 bd 02/05 14:02 Order name: T4 Free; Complete Time: 16:08 EDMS 02/05 14:11 Order name: Urine Culture [facility] 02/05 16:21 Order name: Lactate Sepsis 2 HR Follow-up [facility] 02/05 12:54 Order name: Accucheck; Complete Time: 13:09 [facility] 02/05 12:54 Order name: Cardiac monitoring; Complete Time: 13:09 alec 02/05 12:54 Order name: EKG - Nurse/Tech; Complete Time: 13:09 [facility] 02/05 12:54 Order name: IV Saline Lock - Large Bore; Complete Time: 13: [facility] 02/05 12:54 Order name: Labs collected and sent; Complete Time: 13: [facility] 02/05 12:54 Order name: O2 Per Protocol; Complete Time: 13: [facility] 02/05 12:54 Order name: O2 Sat Monitoring; Complete Time: 13: [facility] 02/05 12:54 Order name: Urine Dipstick-Ancillary (obtain specimen); Complete Time: 13:25 [facility] 02/05 12:59 Order name: EKG; Complete Time: 13: [facility] 02/05 12:59 Order name: IV Saline Lock; Complete Time: 13:24 [facility] 02/05 12:59 Order name: Ramires; Complete Time: 13:24 [facility] 02/05 12:59 Order name: Central Line Kit; Complete Time: 13: [facility] Administered Medications: 13:24 Drug: Cefepime 2 grams Route: IVPB; Rate: 200 ml/hr; Infused Over: 30 mins; Site: right sv femoral; 14:00 Follow up: Response: No adverse reaction; IV Status: Completed infusion hb 13:24 Drug: Pepcid 20 mg Route: IVP; Site: right femoral; sv 14:00 Follow up: Response: No adverse reaction hb 13:24 Drug: NS 0.9% 1000 ml Route: IV; Rate: 125 ml/hr; Site: right femoral; sv 13:24 Drug: Solu-CORTEF 100 mg Route: IVP; Site: right femoral; sv 14:00 Follow up: Response: No adverse reaction hb 13:25 Drug: NS 0.9% (30 ml/kg) 30 ml/kg Route: IV; Rate: bolus; Site: right femoral; sv 14:33 Drug: Ativan 0.5 mg Route: IVP; Site: Other; hb 15:30 Follow up: Response: Anxiety unchanged bp 14:50 Drug: Ativan 0.5 mg Route: IVP; Site: right jugular; bp 15:31 Follow up: Response: Anxiety unchanged bp 15:56 Drug: Ativan 1 mg Route: IVP; Site: right femoral; bp 15:56 Drug: morphine 4 mg Route: IVP; Site: right femoral; bp 15:56 Drug: Zofran (Ondansetron) 4 mg Route: IVP; Site: right femoral; bp Disposition: 02/06/20 13:50 Hospitalization ordered by Min Almazan for Inpatient Admission. Preliminary diagnosis are Dehydration, Volume depletion, Urinary tract infection, site not specified, Severe sepsis, Elevated white blood cell count, Diarrhea, unspecified, Acute kidney failure, Hypokalemia, Rhabdomyolysis. - Bed requested for Telemetry/MedSurg (Inpatient). - Status is Inpatient Admission. bp - Condition is Guarded. - Problem is new. - Symptoms have improved. Signatures: Dispatcher [employer] EDMS Diana Arias Stephanie, RN RN sv Anderson, Corey, MD MD cha Williams, Irene, RN RN iw Violeta Odonnell RN RN hb Peltier, Brian, RN RN bp Corrections: (The following items were deleted from the chart) 13:52 13:50 Hospitalization Ordered by Jorge Cheney MD for Inpatient Admission. [facility] Preliminary diagnosis is Dehydration; Volume depletion; Urinary tract infection, site not specified; Severe sepsis; Elevated white blood cell count. Bed requested for Telemetry/MedSurg (Inpatient). Status is Inpatient Admission. Condition is Guarded. Problem is new. Symptoms have improved. [facility] 14:00 13:52 02/06/2020 13:50 Hospitalization Ordered by Jorge Cheney MD for Inpatient alec Admission. Preliminary diagnosis is Dehydration; Volume depletion; Urinary tract infection, site not specified; Severe sepsis; Elevated white blood cell count; Diarrhea, unspecified. Bed requested for Telemetry/MedSurg (Inpatient). Status is Inpatient Admission. Condition is Guarded. Problem is new. Symptoms have improved. [facility] 14:06 14:00 02/06/2020 13:50 Hospitalization Ordered by Jorge Cheney MD for Inpatient alec Admission. Preliminary diagnosis is Dehydration; Volume depletion; Urinary tract infection, site not specified; Severe sepsis; Elevated white blood cell count; Diarrhea, unspecified; Acute kidney failure. Bed requested for Telemetry/MedSurg (Inpatient). Status is Inpatient Admission. Condition is Guarded. Problem is new. Symptoms have improved. [facility] 14:07 14:06 02/06/2020 13:50 Hospitalization Ordered by Min Almazan for Inpatient alec Admission. Preliminary diagnosis is Dehydration; Volume depletion; Urinary tract infection, site not specified; Severe sepsis; Elevated white blood cell count; Diarrhea, unspecified; Acute kidney failure. Bed requested for Telemetry/MedSurg (Inpatient). Status is Inpatient Admission. Condition is Guarded. Problem is new. Symptoms have improved. [facility] 16:09 14:07 02/06/2020 13:50 Hospitalization Ordered by Min Almazan for Inpatient alec Admission. Preliminary diagnosis is Dehydration; Volume depletion; Urinary tract infection, site not specified; Severe sepsis; Elevated white blood cell count; Diarrhea, unspecified; Acute kidney failure; Hypokalemia. Bed requested for Telemetry/MedSurg (Inpatient). Status is Inpatient Admission. Condition is Guarded. Problem is new. Symptoms have improved. [facility] 17:22 16:09 02/06/2020 13:50 Hospitalization Ordered by Min Almazan for Inpatient bd Admission. Preliminary diagnosis is Dehydration; Volume depletion; Urinary tract infection, site not specified; Severe sepsis; Elevated white blood cell count; Diarrhea, unspecified; Acute kidney failure; Hypokalemia; Rhabdomyolysis. Bed requested for Telemetry/MedSurg (Inpatient). Status is Inpatient Admission. Condition is Guarded. Problem is new. Symptoms have improved. [facility] 18:07 17:22 02/06/2020 13:50 Hospitalization Ordered by Min Almazan for Inpatient bp Admission. Preliminary diagnosis is Dehydration; Volume depletion; Urinary tract infection, site not specified; Severe sepsis; Elevated white blood cell count; Diarrhea, unspecified; Acute kidney failure; Hypokalemia; Rhabdomyolysis. Bed requested for Telemetry/MedSurg (Inpatient). Status is Inpatient Admission. Condition is Guarded. Problem is new. Symptoms have improved. bd
--- NOTE | 2020-02-06 13:51 | ER ---
Nurse's Notes [facility] Name: Tina Padron Age: 74 yrs Sex: Female : 1945 Arrival Date: 02/06/2020 Time: 11:49 Bed 5 Private MD: Diagnosis: Dehydration;Volume depletion;Urinary tract infection, site not specified;Severe sepsis;Elevated white blood cell count;Diarrhea, unspecified;Acute kidney failure;Hypokalemia;Rhabdomyolysis Presentation: 02/05 12:03 Chief complaint: EMS states: reported pt has not been eating much, has only iw been drinking soda, diarrhea X 2 days, recent UTI, currently on bactrim, tried to get herself back in bed and her legs gave out, too weak to get back in bed, denies hitting head, denies injury, has chronic left shoulder dislocation, 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 Coronavirus screen: Proceed with normal triage. Patient denies a cough. Patient denies shortness of breath or difficulty breathing. Patient denies measured and/or subjective temperature greater than 100.4F prior to today's visit. Patient denies travel on a cruise ship or to a country the [facility] currently lists as an affected area. Patient denies contact with known and/or suspected case of COVID-19. Ebola Screen: Patient negative for fever greater than or equal to 101.5 degrees Fahrenheit, and additional compatible Ebola Virus Disease symptoms Patient denies exposure to infectious person. Patient denies travel to an Ebola-affected area in the 21 days before illness onset. No symptoms or risks identified at this time. Initial Sepsis Screen: Does the patient meet any 2 criteria? Systolic BP < 90 mmHg. Does the patient have a suspected source of infection? No. Patient's initial sepsis screen is negative. Risk Assessment: Do you want to hurt yourself or someone else? Patient reports no desire to harm self or others. Onset of symptoms was February 06, 2020. 12:03 Method Of Arrival: EMS: [facility] iw 12:03 Acuity: TYLOR 2 iw Triage Assessment: 12:10 General: Appears in no apparent distress. slender, Behavior is agitated, anxious, bp uncooperative. Pain: Complains of pain in [place]YS[place]. EENT: No deficits noted. Neuro: Level of Consciousness is awake, confused, Oriented to person, place. Cardiovascular: No deficits noted. Respiratory: No deficits noted. GI: Reports diarrhea. 12:10 : Reports burning with urination. Derm: No deficits noted. Musculoskeletal: No bp deficits noted. Historical: - Allergies: 12:08 Compazine; iw - Home Meds: 12:08 aspirin 81 mg Oral TbEC 1 tab once daily [Active]; Azo-Standard Oral as needed iw [Active]; clonazepam 1 mg Oral tab 1 tab nightly [Active]; Flomax 0.4 mg Oral cp24 1 cap once daily [Active]; losartan 50 mg Oral tab 1 tab 2 times per day [Active]; meclizine 25 mg Oral tab 1 tab as needed [Active]; omeprazole 40 mg Oral cpDR 1 cap once daily [Active]; oxycodone-acetaminophen 7.5-325 mg Oral tab 1 tab every 6 hours [Active]; pantoprazole 20 mg Oral TbEC 1 tab once daily [Active]; potassium chloride 20 mEq Oral TbTQ 1 tab 2 times per day [Active]; simvastatin 20 mg Oral tab 1 tab once daily [Active]; Synthroid 88 mcg Oral tab 1 tab once daily [Active]; Uribel 118-10-40.8-36 mg Oral cap daily [Active]; - PMHx: 12:08 "shattered shoulder"; Anxiety; chronic uti; Hyperlipidemia; Hypertension; iw Hypothyroidism; spinal fractures; - PSHx: 12:08 Cholecystectomy; Gastric Bypass; Shoulder Surgery; iw - Immunization history:: Adult Immunizations unknown. - Social history:: Smoking status: Patient denies any tobacco usage or history of. Screenin:30 Abuse screen: Denies threats or abuse. Denies injuries from another. Nutritional bp screening: No deficits noted. Tuberculosis screening: No symptoms or risk factors identified. Fall Risk None identified. Assessment: 13:27 Reassessment: Pt to CT. hb 15:00 Reassessment: ADMIT PENDING. PT CONTINUES TO BE ALTERED, SCREAMING FOR STAFF AND MAKING bp INCOMPREHENSIBLE NOISES, BUT UNABLE TO ARTICULATE WHAT HER SOURCE OF DISTRESS IS. 16:06 Reassessment: SPOUSE TO B/S FOR PT ANXIETY. PT INCREASINGLY AGITATED AND SHOUTING AT bp SPOUSE. SPOUSE INFORMED STAFF "I'M GOING TO LEAVE NOW" AND EXITED UNIT. 17:00 Reassessment: ADMIT IN PROCESS. VS STABLE ON MONITOR. PT REMAINS AGITATED AND ANXIOUS. bp 17:49 Reassessment: ADMIT COMPLETE. REPORT TO SYLVIA MCGRATH FOR 202. bp Vital Signs: 12:03 BP 84 / 61; Pulse 91; Resp 16 S; Temp 97.3(TE); Pulse Ox 98% on R/A; Weight 66.22 kg; iw Height 5 ft. 2 in. (157.48 cm); 13:00 BP 82 / 69; Pulse 92; Resp 18; Pulse Ox 96% ; bp 14:00 BP 122 / 97; Pulse 74; Resp 15; Pulse Ox 99% on R/A; hb 15:00 BP 103 / 69; Pulse 74; Resp 16; Pulse Ox 99% ; bp 16:07 BP 106 / 58; Pulse 72; Resp 16; Pulse Ox 98% ; bp 16:59 BP 107 / 61; Pulse 72; Resp 21; Pulse Ox 98% ; bp 12:03 Body Mass Index 26.70 (66.22 kg, 157.48 cm) iw ED Course: 11:49 Patient arrived in ED. iw 12:05 Mateo Fox MD is Attending Physician. alec 12:07 Triage completed. iw 12:09 Edward Fuentes, RN is Primary Nurse. bp 12:55 Assisted provider with central line placement. Set up central line tray. Triple lumen sv line placed in right femoral. Line placed by Mateo Fox MD Placement verified by blood return, Dressed with Tegaderm, Blood was collected. Patient tolerated poorly. Before procedure, did Practitioner(s) obtain informed consent? No. Patient \\T\\ family education about procedure, CLABSI prevention and S/S of infection? Yes. Time-out/Briefing performed prior to start of procedure? Yes. Was handwashing/sanitizing done immediately prior to procedure? Yes. Was patient positioned to in a way to prevent air embolism? Yes. Was procedure site sterilized? Yes, with chlorhexidine. Was the site allowed to dry? Yes. Was local anesthetic and/or sedation utilized? Yes. During the procedure, did the Practitioner(s) maintain a sterile field? Yes. Were unused ports clamped during insertion? Yes. Was a 2nd qualified MD obtained after 3 unsuccessful insertion attempts? Yes. Was blood aspirated from each lumen? Yes. After the procedure, did the Practitioner(s) clean the site and apply a sterile dressing? Yes. 12:55 Patient has correct armband on for positive identification. Placed in gown. Bed in low sv position. Call light in reach. Side rails up X2. environmental monitoring specialist on. Pulse ox on. NIBP on. Door closed. Warm blanket given. Head of bed elevated. 13:05 Ramires cath inserted, using sterile technique, 16 Fr., by director of partnerships, balloon inflated, to sv gravity drainage, urine specimen collected. 13:05 Urine collected: Ramires catheter specimen, cloudy, tea colored, Amount Returned: 5mL. jp3 13:26 Elevated left arm. sv 13:35 CT Traumagram (Head C Spine CAP wo con) In Process Unspecified. EDMS 13:49 Jorge Cheney MD is Hospitalizing Provider. alec 13:52 Chest Single View XRAY In Process Unspecified. EDMS 14:06 Min Almazan is Hospitalizing Provider. alec 17:51 Patient admitted, IV remains in place. bp 17:51 Arm band placed on. bp Administered Medications: 13:24 Drug: Cefepime 2 grams Route: IVPB; Rate: 200 ml/hr; Infused Over: 30 mins; Site: right sv femoral; 14:00 Follow up: Response: No adverse reaction; IV Status: Completed infusion hb 13:24 Drug: Pepcid 20 mg Route: IVP; Site: right femoral; sv 14:00 Follow up: Response: No adverse reaction hb 13:24 Drug: NS 0.9% 1000 ml Route: IV; Rate: 125 ml/hr; Site: right femoral; sv 13:24 Drug: Solu-CORTEF 100 mg Route: IVP; Site: right femoral; sv 14:00 Follow up: Response: No adverse reaction hb 13:25 Drug: NS 0.9% (30 ml/kg) 30 ml/kg Route: IV; Rate: bolus; Site: right femoral; sv 14:33 Drug: Ativan 0.5 mg Route: IVP; Site: Other; hb 15:30 Follow up: Response: Anxiety unchanged bp 14:50 Drug: Ativan 0.5 mg Route: IVP; Site: right jugular; bp 15:31 Follow up: Response: Anxiety unchanged bp 15:56 Drug: Ativan 1 mg Route: IVP; Site: right femoral; bp 15:56 Drug: morphine 4 mg Route: IVP; Site: right femoral; bp 15:56 Drug: Zofran (Ondansetron) 4 mg Route: IVP; Site: right femoral; bp Outcome: 13:50 Decision to Hospitalize by Provider. alec 17:50 Admitted to Tele accompanied by tech, via stretcher, room 202, with chart, Report bp called to SYLVIA MCGRATH 17:50 Condition: stable 17:50 Instructed on the need for admit. 18:07 Patient left the ED. bp Signatures: Dispatcher [employer] EDXimena Elizabeth, RN RN Mateo Raya MD MD cha Williams, Irene, RN RN iw Baxter, Heather, RN RN hb Peltier, Brian, RN RN Ganga Powers
[2020-02-06 13:54] LABS: Urine Blood 2+ (NEG); Urine Glucose NEGATIVE (NEG); Urine Protein 3+ (NEG); Urine Specific Gravity 1.025 (1.005-1.030)
[2020-02-06 13:58] LABS: Magnesium 1.8 mg/dL (1.8-2.4)
[2020-02-06 14:01] LABS: Thyroid Stimulating Hormone 4.76 uIU/mL (0.360-3.740)
--- NOTE | 2020-02-06 14:01 | RAD REPORT ---
EXAM DESCRIPTION: CT - Head C Spine Cap Wo Con - 02/06/2020 1:35 pm CLINICAL HISTORY: PAIN, weakness, head, neck, chest and abdomen pain COMPARISON: Head C Spine Mpr Wo Con dated 01/02/2020; Abdomen Pelvis Wo Contrast dated 11/13/2019 TECHNIQUE: Axial [address] head images were obtained. Axial [address] cervical spine images were obtain ed with sagittal and coronal reconstruction images reviewed. Axial 5 mm images of the chest, abdomen and pelvis were obtained. All CT scans are performed using dose optimization technique as appropriate and may include automated exposure control or mA/KV adjustment according to patient size. FINDINGS: No intracranial hemorrhage, mass or edema. No midline shift or abnormal fluid collection. Mastoid air cells and paranasal sinuses are clear. No skull fracture. Patient has mild to moderate a trophy and mild chronic ischemic change. Ventricles are in proportion. Cervical bodies are normal in height and alignment. No fracture or acute bone finding.Mild disc space narrowing at C4-5. Protruding disc material with calcification noted at C3-4. Canal is mildly stenot ic at this level.No prevertebral soft tissue thickening or paraspinal mass.Central canal detail is in herently limited on CT imaging.Prominent facet joint degenerative change present at C3-4 and C4-5. CT chest shows no pneumothorax, pulmonary contusion or pleural fluid collection. No mediastinal hem atoma and the aorta and pulmonary arteries are unremarkable. No chest will mass or abnormal axillary finding. No acute displaced rib fractures are present. Patient has partially healed rib fractures pos terior lower right chest. Patient had acute rib fractures on the October CT study. CT abdomen and pelvis show no injury to solid abdominal viscera. Cholecystectomy clips are present. N o biliary tree dilatation. A 4.5 centimeter right renal cyst is similar to comparison. Additional cys ts are present in the right kidney. Small cyst present lower pole left kidney. No acute bowel injury or acute bowel finding. Small hiatal hernia is present. Surgical changes are present in the GE juncti on region. No free air, free fluid or abnormal stranding. No mass or bulky lymphadenopathy. Right periumbilical fat only hernia has not change from October. Urinary bladder is contracted around a Ramires catheter. Right hip prosthesis in place. Prominent lower lumbar degenerative changes are present. Subacute L1 and L2 right transverse process fracture is noted. Approximately 50% compression of the L1 body is present. Posterior wall height is preserved. This is an old compression fracture is stable from the least October. IMPRESSION: Atrophy and chronic ischemic changes are present. No acute intracranial finding. Cervical spine degenerative change as detailed. No acute findings seen. No acute CT chest finding. Partially healed lower posterior right rib fractures noted. No acute abdomen or pelvis finding. Overall exam is limited somewhat by the absence of IV contrast.
[2020-02-06 14:10] LABS: Urine Bacteria 20-50 /HPF (<20); Urine Culture Reflex Order REFLEXED; Urine Yeast MANY (NONE SEEN)
--- NOTE | 2020-02-06 14:12 | RAD REPORT ---
EXAM DESCRIPTION: RAD - Chest Single View - 02/06/2020 1:52 pm CLINICAL HISTORY: weakness, fall, shortness of breath, hypotensive COMPARISON: Two view chest January 2018, CT trauma study same date TECHNIQUE: AP portable chest image was obtained 02/06/2020 1:52 pm . FINDINGS: No focal lung parenchymal process. Interstitial pattern matches comparison Heart and vascu lature are normal. No measurable pleural effusion and no pneumothorax. No acute rib injury evident. Chronic degenerative changes are present at the left shoulder joint. Title left clavicle shows remode ling changes that appear to be old or subacute fracture. CT trauma images also favor remote injury to the left humeral head. This needs correlation with symptoms. . No acute aortic findings suspected. IMPRESSION: No acute cardiopulmonary process. Degenerative change present at the left shoulder joint with removal of clavicle fracture fixation [facility] since prior imaging. Left humeral head shows what appears to be old or subacute fracture change. If the patient has acute pain referable to the left shoulder joint, dedicated imaging could be performed.
[2020-02-06] MEDS ORDERED: LORazepam 2 MG/ML VIAL ONE ×3 (14:36→15:50)
--- NOTE | 2020-02-06 15:49 | P.HP ---
Certification for Inpatient Patient admitted to: Inpatient With expected LOS: >2 Midnights Practitioner: I am a practitioner with admitting privileges, knowledge of patient current condition, hospital course, and medical plan of care. Services: Services provided to patient in accordance with Admission requirements found in Title 42 Section 412.3 of the Code of Federal Regulations Patient History Date of Service: 02/06/20 Reason for admission: Generalized weakness History of Present Illness: 74-year-old woman with a history of recurrent UTI, hypothyroidism and B-cell lymphoma was brought to the emergency department accompanied by her due to generalized weakness at home. Patient is reported to have tried to get to bed but her legs gave way and and did not have enough strength to get to bed. She is reported to have had episodes of nausea and vomiting and diarrhea. She has a history left shoulder dislocation repair several years ago. Patient was noted to be hypotensive on arrival to the ED. Blood work shows severe leukocytosis, acute renal failure, lactic acidosis. UA suggest the presence of UTI including yeast infection. Sepsis protocol was initiated in the ED, patient's blood pressure responded to IV hydration, she is currently borderline hypotensive. She was confused during my examination and could not provide a history. She was complaining of suprapubic pain. Patient is admitted for further management. Allergies prochlorperazine [From Compazine] Allergy (Intermediate, Verified 12/08/17 12:55) PYSCHOSIS Prochlorperazine Maleate Allergy (Uncoded 04/22/18 15:25) Unknown Home Medications: Metoprolol Tartrate [Lopressor*] 50 mg PO BID 07/30/18 Oxycodone HCl/Acetaminophen [Percocet 10-325 mg Tablet] 1 each PO TID 07/30/18 Fluconazole [Diflucan] 200 mg PO DAILY #7 tablet 07/31/18 - Past Medical/Surgical History Diabetic: No -: Hypertension -: Hypothyroidism -: B-cell lymphoma -: DDD/DJD of spine -: Chronic recurrent UTI requiring long-term antibiot -: shingles ( ) -: Vertigo -: Anxiety -: Hysterectomy -: Cholecystectomy -: Gastric torsion repair -: Hip surgery -: Knee surgery -: Port-A-Cath placement and removal -: left breast removal -: TONSILLECTOMY Psychosocial/ Personal History: The patient is originally from [place]. She moved to the area in July. She is . She has 3 children. - Family History Mother -: Heart disease, Hypertension, Diabetes, Kidney disease Father -: Heart disease, Diabetes, Other (see notes) Notes: Alzheimers - Social History Alcohol use: No CD- Drugs: No Caffeine use: No Review of Systems is unable to be obtained (Due to confusion) Physical Examination - Physical Exam General: In no apparent distress, Confused HEENT: Atraumatic, Mucous membr. moist/pink Neck: Supple, JVD not distended, No Thyromegaly Respiratory: Clear to auscultation bilaterally, Normal air movement Cardiovascular: No edema, Regular rate/rhythm, Normal S1 S2 Capillary refill: <2 Seconds Gastrointestinal: Normal bowel sounds, Soft and benign, Non-distended, No tenderness Musculoskeletal: No swelling, No erythema Integumentary: No rashes Neurological: Other (Nonfocal, confused.) - Studies Laboratory Data (last 24 hrs) 02/06/20 12:58: Magnesium 1.8 02/06/20 12:58: PT 11.7, INR 0.99, APTT 24.5 02/06/20 12:58: WBC 20.9 H*, Hgb 12.6, Hct 37.7, Plt Count 322 02/06/20 12:58: Sodium 131 L, Potassium 3.1 L, BUN 60 H, Creatinine 3.98 H, Glucose 178 H, Total Bilirubin 0.4, AST 31, ALT 11 L, Alkaline Phosphatase 133 H, Amylase 54, Lipase 152 Assessment and Plan - Problems (Diagnosis) (1) Metabolic encephalopathy Current Visit: Yes Status: Acute (2) Acute renal failure Current Visit: Yes Status: Acute (3) Septic shock Current Visit: Yes Status: Acute (4) Gastroenteritis Current Visit: Yes Status: Acute (5) Chronic pain disorder Current Visit: No Status: Chronic (6) Hypertension Onset Date: 06/29/17 Current Visit: No Status: Chronic Qualifiers: Hypertension type: essential hypertension (7) UTI (urinary tract infection) Onset Date: 12/09/17 Current Visit: No Status: Ruled-out Qualifiers: Urinary tract infection type: acute cystitis Hematuria presence: without hematuria Qualified Code(s): N30.00 - Acute cystitis without hematuria - Plan Her blood pressure has responded to IV fluids. Patient will be admitted to the medical floor. Will continue aggressive IV hydration Patient started on IV cefepime, Diflucan and vancomycin. Blood cultures or urine culture taken in the ED to be followed. Serial lactate for sepsis protocol. Monitor renal function for improvement. Noted elevated troponin and elevated CK. This could be secondary to sepsis. Will trend troponin, CKMB and CK levels Avoid psychotropic medications as much as possible. Hold antihypertensives given low blood pressure. Pain management as needed. Follow stool studies obtained in the ED PT once clinically stable - Advance Directives Does patient have a Living Will: No Does patient have a Durable POA for Healthcare: Yes - Code Status/Comfort Care Code Status Assessed: No (Confused and cannot provide history.)
[2020-02-06] MEDS ORDERED: MORPHINE 4 MG/ML SYR ONE (15:50)
[2020-02-06] MEDS ORDERED: ONDANSETRON 4 MG/2 ML VIAL ONE (15:50)
--- NOTE | 2020-02-06 15:50 | EKG ---
Test Date: 2020-02-06 Test Time: 13:51:26 3D Specialist: ABHAY MEASUREMENT RESULTS: Intervals: Rate: 79 TN: 178 QRSD: 74 QT: 518 QTc: 593 Raymond: P: 65 TN: 178 QRS: 30 T: 73 INTERPRETIVE STATEMENTS: Normal sinus rhythm Normal ECG Compared to ECG 01/02/2020 00:01:41 ST (T wave) deviation no longer present Possible ischemia no longer present Electronically Signed On 02-06-20 15:49:32 CDT by Diaz Ramsay
[2020-02-06] MEDS ORDERED: ONDANSETRON 4 MG/2 ML VIAL IV PRN (18:23)
[2020-02-06] MEDS ORDERED: VANCOMYCIN 1.75 GM in NA CHLORIDE 0.9% 500 ML IVPB ONE (19:00)
[2020-02-06 20:25] LABS: Blood Morphology Comment NOT SEEN (NOT SEEN); Platelet Estimate ADEQ
[2020-02-06] MEDS: NA CHLORIDE 0.9% 1,000 ML IV SCH (20:58)
[2020-02-06] MEDS: CEFEPIME/SWI 1gm 10 ML IVP SCH (20:59)
[2020-02-06] MEDS ORDERED: CEFEPIME 1 GM/VIAL IV SCH (21:00)
[2020-02-06] MEDS ORDERED: CEFEPIME/SWI 1gm 10 ML IVP SCH (21:00)
[2020-02-06] MEDS: HEPARIN 5000 UNIT/ML 1 ML VIAL SQ SCH (21:00)
[2020-02-06] MEDS: FLUCONAZOLE 100mg IVPB 100 MG/50 ML BAG IV SCH (21:33)
[2020-02-06] MEDS: ACETAMINOPHEN 500 MG TAB PO PRN (22:38)
[2020-02-07] MEDS ORDERED: POTASSIUM 25 MEQ EFFERV TAB PO ONE (00:07)
[2020-02-07] MEDS ORDERED: HALOPERIDOL LACT 5 MG/ML INJ IV PRN (00:40)
[2020-02-07] MEDS ORDERED: AZO STANDARD PO SCH (00:45)
[2020-02-07] MEDS: ACETAMINOPHEN 500 MG TAB PO PRN (02:05)
[2020-02-07] MEDS ORDERED: FENTANYL CITR 100 MCG/2 ML IV ONE (03:59)
[2020-02-07] MEDS ORDERED: NA CHLORIDE 0.9% 250 ML IV ONE (04:00)
[2020-02-07 04:03] LABS: Urine Appearance CLOUDY; Urine Bilirubin NEGATIVE (NEG); Urine Blood 2+ (NEG); Urine Color YELLOW; Urine Glucose NEGATIVE (NEG); Urine Protein TRACE (NEG); Urine Urobilinogen 0.2 mg/dL (0.2-1.0)
[2020-02-07 04:12] LABS: Urine Microscopic Reflex ORDER UMIC
[2020-02-07] MEDS ORDERED: ALBUMIN HUMAN 25% 100 ML IV ONE (04:15)
[2020-02-07 04:40] LABS: Urine Bacteria <20 /HPF (<20); Urine Culture Reflex Order NOT NEEDED; Urine RBC <5 /HPF (NONE SEEN); Urine Urothelial Cells <5 /HPF (NONE SEEN)
[2020-02-07 05:25] VITALS: BMI 23.5
[2020-02-07] MEDS ORDERED: POTASSIUM CL 40 MEQ in NA CHLORIDE 0.9% 500 ML IV SCH (06:00)
[2020-02-07 06:10] LABS: Albumin 2.6 g/dL (3.4-5.0); Bilirubin Total 0.4 mg/dL (0.2-1.0); Potassium 3.8 mmol/L (3.5-5.1); Protein, Total 5.2 g/dL (6.4-8.2); Troponin I 0.04 ng/mL (0.0-0.045)
[2020-02-07] MEDS: PANTOPRAZOLE 40MG TABLET PO SCH (06:12)
[2020-02-07 06:25] LABS: CKMB Creatine Kinase MB 15.6 ng/mL (0.3-3.6)
[2020-02-07] MEDS: CEFEPIME/SWI 1gm 10 ML IVP SCH ×2 (08:11→20:54)
[2020-02-07] MEDS: TAMSULOSIN 0.4 MG SR CAP PO SCH (08:11)
[2020-02-07] MEDS: LEVOTHYROXINE SOD 0.088 MG TAB PO SCH (08:11)
[2020-02-07] MEDS: ASPIRIN EC 81 MG TAB PO SCH (08:11)
[2020-02-07] MEDS: HEPARIN 5000 UNIT/ML 1 ML VIAL SQ SCH ×2 (08:11→20:54)
[2020-02-07] MEDS ORDERED: POTASSIUM CL SA 10 MEQ TAB PO ONE (09:00)
[2020-02-07] MEDS: URIBEL PO SCH (09:00)
[2020-02-07 09:22] LABS: Absolute Lymphocytes (CBC) 0.7 K/uL (0.7-4.9); Basophils % 0.4 % (0-1.3); Hematocrit 31.3 % (36.0-45.0); Lymphocytes % 4.5 % (15.3-44.8); MPV 8.7 fL (7.6-11.3); RBC Red Blood Cell Count 3.27 M/uL (3.86-4.86)
[2020-02-07] MEDS: VALPROATE SODIUM INJ 500 MG in NA CHLORIDE 0.9% 100 ML IV SCH ×2 (09:26→20:53)
[2020-02-07] MEDS: NA CHLORIDE 0.9% 1,000 ML IV SCH ×3 (10:23→18:23)
--- NOTE | 2020-02-07 12:33 | P.PN ---
Subjective Date of Service: 02/07/20 Chief Complaint: Generalized weakness Patient is more interactive today though still confused. She looks better than yesterday. She has been afebrile. Blood pressure has improved and she is currently normotensive. Urine culture is growing Gram negative rods. Serum creatinine has trended down significantly. Physical Examination - Vital Signs Temperature: 97.3 F Blood Pressure: 115/62 Pulse: 69 Respirations: 16 Pulse Ox (%): 100 - Physical Exam General: Confused, Other (Awake, ) Neck: Supple Respiratory: Clear to auscultation bilaterally, Normal air movement Cardiovascular: No edema, Regular rate/rhythm, Normal S1 S2 Capillary refill: <2 Seconds Gastrointestinal: Normal bowel sounds, Soft and benign, Non-distended, No tenderness Musculoskeletal: No swelling Integumentary: No erythema Neurological: Other (Nonfocal) - Studies Laboratory Data (last 24 hrs) 02/06/20 12:58: Magnesium 1.8 02/06/20 12:58: PT 11.7, INR 0.99, APTT 24.5 02/06/20 12:58: WBC 20.9 H*, Hgb 12.6, Hct 37.7, Plt Count 322 02/06/20 12:58: Sodium 131 L, Potassium 3.1 L, BUN 60 H, Creatinine 3.98 H, Glucose 178 H, Total Bilirubin 0.4, AST 31, ALT 11 L, Alkaline Phosphatase 133 H, Amylase 54, Lipase 152 Assessment And Plan - Current Problems (Diagnosis) (1) Metabolic encephalopathy Current Visit: Yes Status: Acute (2) Acute renal failure Current Visit: Yes Status: Acute (3) Septic shock Current Visit: Yes Status: Acute (4) Gastroenteritis Current Visit: Yes Status: Acute (5) Chronic pain disorder Current Visit: No Status: Chronic (6) Hypertension Onset Date: 06/29/17 Current Visit: No Status: Chronic Qualifiers: Hypertension type: essential hypertension (7) UTI (urinary tract infection) Onset Date: 12/09/17 Current Visit: No Status: Ruled-out Qualifiers: Urinary tract infection type: acute cystitis Hematuria presence: without hematuria Qualified Code(s): N30.00 - Acute cystitis without hematuria - Plan Patient is clinically responding to treatment. Continue IV antibiotics. Continue IV Diflucan. Reduce IV fluid rate. Follow blood culture and urine cultures. Monitor renal function for improvement. Troponin trended flat. Obtain echocardiogram given elevated CKMB. Avoid psychotropic medications as much as possible. Continue to hold antihypertensives. Pain management as needed. Follow stool studies obtained in the ED PT to evaluate.
[2020-02-07] MEDS ORDERED: PHENAZOPYRIDINE 100MG TAB PO PRN (14:03)
[2020-02-07] MEDS: FLUCONAZOLE 100mg IVPB 100 MG/50 ML BAG IV SCH (20:53)
[2020-02-07] MEDS: clonazePAM 1 MG TAB PO SCH (20:54)
[2020-02-07] MEDS: ATORVASTATIN 10 MG TAB PO SCH (20:54)
[2020-02-07] MEDS ORDERED: NA CHLORIDE 0.9% 0 ML ONE (23:06)
--- NOTE | 2020-02-07 23:41 | CON ---
Date of Consultation: 02/07/2020 Reason For Consultation: Elevated BUN and creatinine, fluid management. History Of Present Illness: This is a pleasant 74-year-old female with significant past medical hist ory of recurrent UTI, hypothyroidism, B-cell lymphoma, came to the hospital. She was feeling weak wi th decreased intake. Patient had nausea without any vomiting. Patient denied taking any nonsteroida l. Upon arrival to the hospital, creatinine was above 3, found to have UTI. Patient was also found to have low blood pressure upon arrival. After fluid resuscitation, blood pressure has been stabiliz ed and patient's kidney function has been improved from above 3 to below 2. The patient denied any f ever, any chills. Patient denied taking any nonsteroidal. Patient's home medication does not includ e any YOLANDA inhibitor or ARB. Workup in the hospital upon arrival to the hospital, blood pressure was down to the 80. The patient was receiving IV fluid. Blood pressure starting to stabilize today. Wh en I saw her blood, pressure up to 114, patient had good urine output. Patient still has some confus ion. Past Medical History: Includes, 1.Hypertension. 2.Recurrent UTI. 3.B-cell lymphoma. Allergies: PROCHLORPERAZINE AND ARELY. Home Medications: Include metoprolol, oxycodone, and fluconazole. Social History: Lives with the . Denies smoking, denies drinking, denies drugs abuse. Past Surgical History: Patient is confused, cannot provide. Review of Systems: Not obtainable. Physical Examination: Vital Signs: When I saw the patient, blood pressure 115/62, pulse of 69, afebrile. Chest: Clear to auscultation. Heart: S1, S2. Regular. Abdomen: Soft, nontender. Extremities: No edema. Laboratory Data: Upon presentation to the hospital, WBC 20.9, H and H of 12.6/37.7, platelets 323. Sodium 140, potassium 3.8, bicarb 23, BUN 44, creatinine 1.8, calcium 7.8. CK-MB 15.6. The CPK of 4 98. BNP was not done. Troponin was negative. Chest x-ray, no congestion. Urinalysis positive for infection. Today lab data; sodium 140, potassium 3.8, bicarb 23, BUN 44, creatinine 1.8, GFR of 27. CT, abdomen and pelvis, did not show any obstruction. Current Medications: The patient on include, 1.IV fluid. 2.Aspirin. 3.Cefepime. 4.Fluconazole. 5.Vancomycin. 6.Flomax. 7.Tylenol. 8.Depakote. 9.Fentanyl. Assessment And Plan: 1.Acute kidney injury secondary to prerenal obstructive uropathy and rhabdomyolysis has been ruled o ut. I am going to continue aggressive hydration and we will monitor the patient. 2.Hypertension, currently blood pressure controlled. Keep holding all blood pressure medications gi josiane the incident of low blood pressure. 3.Urinary tract infection. Recurrent obstructive uropathy has been ruled. No foci on the CT. Prev ious culture back in October, growing enterobacter and methicillin-resistant Staphylococcus aureus. Patient was started on vancomycin. We will follow up current culture. 4.Altered mental status, secondary to urosepsis. Follow up with the primary. Continue current jose armando tment. 5.Hypokalemia. We will supplement. Thank you, Dr. Almazan, for allowing us to participate in the care of your patient. JONATHAN Voice ID: [id number] Report ID: [id number]
[2020-02-08 05:56] LABS: Absolute Lymphocytes (CBC) 0.4 K/uL (0.7-4.9); Basophils % 0.4 % (0-1.3); Hematocrit 25.5 % (36.0-45.0); Lymphocytes % 5.6 % (15.3-44.8); MPV 8.4 fL (7.6-11.3); RBC Red Blood Cell Count 2.67 M/uL (3.86-4.86)
[2020-02-08 06:16] LABS: Potassium 3.6 mmol/L (3.5-5.1)
[2020-02-08] MEDS: PANTOPRAZOLE 40MG TABLET PO SCH (06:22)
[2020-02-08] MEDS ORDERED: POTASSIUM CL SA 10 MEQ TAB PO ONE (09:00)
[2020-02-08] MEDS: URIBEL PO SCH (09:00)
[2020-02-08] MEDS ORDERED: LORazepam 2 MG/ML VIAL IV ONE (09:09)
[2020-02-08] MEDS: TAMSULOSIN 0.4 MG SR CAP PO SCH (09:45)
[2020-02-08] MEDS: VALPROATE SODIUM INJ 500 MG in NA CHLORIDE 0.9% 100 ML IV SCH ×2 (09:45→20:05)
[2020-02-08] MEDS: HEPARIN 5000 UNIT/ML 1 ML VIAL SQ SCH ×2 (09:46→20:06)
[2020-02-08] MEDS: ASPIRIN EC 81 MG TAB PO SCH (09:46)
[2020-02-08] MEDS: LEVOTHYROXINE SOD 0.088 MG TAB PO SCH (09:46)
[2020-02-08] MEDS: CEFEPIME/SWI 1gm 10 ML IVP SCH ×2 (09:50→20:05)
--- NOTE | 2020-02-08 10:07 | P.PN ---
Subjective Date of Service: 02/08/20 Chief Complaint: Generalized weakness Patient occasionally yell and scream. She has been afebrile. She is normotensive Urine culture is growing Gram negative rods. Acute renal failure has resolved. Physical Examination - Vital Signs Temperature: 98.1 F Blood Pressure: 103/51 Pulse: 80 Respirations: 20 Pulse Ox (%): 96 - Physical Exam General: Confused, Other (Awake) HEENT: Mucous membr. moist/pink Neck: Supple Respiratory: Clear to auscultation bilaterally, Normal air movement Cardiovascular: No edema, Regular rate/rhythm, Normal S1 S2 Gastrointestinal: Normal bowel sounds, Soft and benign, Non-distended, No tenderness Musculoskeletal: No erythema Neurological: Other (Nonfocal.) Assessment And Plan - Current Problems (Diagnosis) (1) Metabolic encephalopathy Current Visit: Yes Status: Acute (2) Acute renal failure Current Visit: Yes Status: Acute (3) Septic shock Current Visit: Yes Status: Acute (4) Gastroenteritis Current Visit: Yes Status: Acute (5) Chronic pain disorder Current Visit: No Status: Chronic (6) Hypertension Onset Date: 06/29/17 Current Visit: No Status: Chronic Qualifiers: Hypertension type: essential hypertension (7) UTI (urinary tract infection) Onset Date: 12/09/17 Current Visit: No Status: Ruled-out Qualifiers: Urinary tract infection type: acute cystitis Hematuria presence: without hematuria Qualified Code(s): N30.00 - Acute cystitis without hematuria - Plan Continue IV antibiotics. Continue IV Diflucan. Follow culture results Continue IV fluid. echocardiogram is pending. Resume home pain medications. Ativan IV p.r.n. for anxiety. Continue to hold antihypertensives. Pain management as needed. Patient is participating in physical therapy. Skilled rehab recommended.
--- NOTE | 2020-02-08 15:12 | PN ---
Subjective: The patient was admitted for weakness and found to have BAILEY with elevated creatinine 3.9 . The patient started on IV fluid today. No overnight events. Stable vital signs. The patient is alert, but confused. Continue current treatment. Objective: Vital Signs: Temperature 98.1, pulse rate 80, respiratory rate 20, blood pressure 103/51 . General: Awake, alert, oriented x1, confused. Neck: Supple. No elevated JVD. Heart: Regular rate and rhythm. Normal S1, S2. Chest: Clear to auscultation bilaterally. No rales or wheezes. Abdomen: Soft and nontender. Extremities: No edema. Laboratory Data: White count 6.7, hemoglobin 8.6, platelets 137. Sodium 145, potassium 3.6, chlorid e 113, BUN 27, creatinine 0.8 with a CK 373. Assessment And Plan: 1.Acute kidney injury. Creatinine high due to prerenal azotemia. She admitted with creatinine 3.9. Ultrasound, no hydro. Currently off intravenous fluids. We will continue to monitor. 2.Rhabdomyolysis, improving. Her CK down to 373. 3.Metabolic encephalopathy. Currently is more alert, but she is still confused. Unknown baseline m ental status. 4.Sepsis. White count improved to 6.7. Continue antibiotics and adjust for cultures. 5.Urinary tract infection. Continue on current antibiotics. JERALD/LAUREL Voice ID: [id number] Report ID: [id number]
[2020-02-08] MEDS: FLUCONAZOLE 100mg IVPB 100 MG/50 ML BAG IV SCH (18:44)
[2020-02-08] MEDS ORDERED: VANCOMYCIN 1.25 GM in NA CHLORIDE 0.9% 250 ML IVPB SCH (19:00)
[2020-02-08] MEDS: clonazePAM 1 MG TAB PO SCH (20:06)
[2020-02-08] MEDS: ATORVASTATIN 10 MG TAB PO SCH (20:06)
[2020-02-08] MEDS: ACETAMINOPHEN 500 MG TAB PO PRN (21:28)
[2020-02-09 05:00] LABS: Absolute Lymphocytes (CBC) 0.4 K/uL (0.7-4.9); Basophils % 0.9 % (0-1.3); Hematocrit 26.3 % (36.0-45.0); Lymphocytes % 8.5 % (15.3-44.8); MPV 8.5 fL (7.6-11.3); RBC Red Blood Cell Count 2.77 M/uL (3.86-4.86)
[2020-02-09 05:15] LABS: BUN Blood Urea Nitrogen 18 mg/dL (7-18); Bicarbonate 24 mmol/L (21-32); CKMB Creatine Kinase MB 3.4 ng/mL (0.3-3.6); Creatine Phosphokinase 110 U/L (26-192); Glucose Level 77 mg/dL (74-106); Magnesium 1.5 mg/dL (1.8-2.4); Phosphorus 1.6 mg/dL (2.5-4.9); Potassium 3.7 mmol/L (3.5-5.1); Sodium Level 144 mmol/L (136-145)
[2020-02-09 06:14] VITALS: O2SAT 96
[2020-02-09] MEDS ORDERED: LEVOTHYROXINE SOD 0.088 MG TAB PO SCH (06:30)
[2020-02-09] MEDS ORDERED: Magnesium Sulfate 2gm IVPB 2 G/50 ML BAG IV ONE (07:00)
[2020-02-09] MEDS ORDERED: PANTOPRAZOLE 40MG TABLET PO SCH (07:30)
[2020-02-09 08:46] LABS: Ferritin 179.7 ng/mL (8-388); Folic Acid, (Folate) 5.1 ng/mL (3.1-17.5)
[2020-02-09] MEDS: URIBEL PO SCH (09:00)
[2020-02-09] MEDS ORDERED: POTASSIUM CL SA 10 MEQ TAB PO ONE (09:00)
[2020-02-09] MEDS: CEFEPIME/SWI 1gm 10 ML IVP SCH (09:54)
[2020-02-09] MEDS: VALPROATE SODIUM INJ 500 MG in NA CHLORIDE 0.9% 100 ML IV SCH (09:54)
[2020-02-09] MEDS: TAMSULOSIN 0.4 MG SR CAP PO SCH (09:54)
[2020-02-09] MEDS: POTASS/SODIUM PHOSPHATE 1 PKT POWD.PACK PO SCH (09:55)
[2020-02-09] MEDS: HEPARIN 5000 UNIT/ML 1 ML VIAL SQ SCH (09:55)
[2020-02-09] MEDS: ASPIRIN EC 81 MG TAB PO SCH (09:55)
--- NOTE | 2020-02-09 10:39 | P.DS ---
Admission Date: 02/06/20 Discharge Date: 02/09/20 Disposition: TRANSFER TO SENIOR CARE Discharge Condition: FAIR Reason for Admission: Generalized weakness Consultations: Nephrology Procedures: None - Problems (1) Metabolic encephalopathy Current Visit: Yes Status: Acute (2) Acute renal failure Current Visit: Yes Status: Acute (3) Septic shock Current Visit: Yes Status: Acute (4) Gastroenteritis Current Visit: Yes Status: Acute (5) Chronic pain disorder Current Visit: No Status: Chronic (6) Hypertension Onset Date: 06/29/17 Current Visit: No Status: Chronic Qualifiers: Hypertension type: essential hypertension (7) UTI (urinary tract infection) Onset Date: 12/09/17 Current Visit: No Status: Ruled-out Qualifiers: Urinary tract infection type: acute cystitis Hematuria presence: without hematuria Qualified Code(s): N30.00 - Acute cystitis without hematuria Brief History of Present Illness: 74-year-old woman with a history of recurrent UTI, hypothyroidism and B-cell lymphoma was brought to the emergency department accompanied by her due to generalized weakness at home. Patient is reported to have tried to get to bed but her legs gave way and and did not have enough strength to get to bed. She is reported to have had episodes of nausea and vomiting and diarrhea. She has a history left shoulder dislocation repair several years ago. Patient was noted to be hypotensive on arrival to the ED. Blood work showed severe leukocytosis, acute renal failure, lactic acidosis. UA suggested the pre sence of UTI including yeast infection. Sepsis protocol was initiated in the ED, patient's blood pressure responded to IV hydration, she was currently borderline hypotensive. She was confused during my examination and could not provide a history. She was complaining of suprapubic pain. Patient was admitted for further management. Hospital Course: Patient admitted to the medical floor and treated aggressively with IV fluids, treated for sepsis with IV cefepime and vancomycin. Her urinalysis also suggested yeast infection. Patient was treated with IV Diflucan. Acute renal failure resolved with IV hydration. Leukocytosis resolved, sepsis resolved with treatment. Urine culture grew Gram negative rods. UTI responded well to the antibiotic regimen. Patient is discharged with Vantin to complete 7 days of treatment for the UTI. She will also complete 1 week of Diflucan. She was evaluated by physical therapy, patient ambulated with a walker. Skilled rehab is recommended. Patient is deemed clinically stable for discharge to skilled rehab. Vital Signs/Physical Exam: Temp Pulse Resp BP Pulse Ox 97.5 F 61 16 134/50 L 100 02/09/20 08:00 02/09/20 08:00 02/09/20 08:00 02/09/20 08:00 02/09/20 08:00 General: In no apparent distress, Other (Awake) HEENT: Mucous membr. moist/pink Respiratory: Clear to auscultation bilaterally, Normal air movement Cardiovascular: No edema, Regular rate/rhythm, Normal S1 S2 Capillary refill: <2 Seconds Gastrointestinal: Normal bowel sounds, Soft and benign, Non-distended, No tenderness Neurological: Other (Nonfocal) Laboratory Data at Discharge: WBC 4.9 K/uL (4.3-10.9) D 02/09/20 04:50 Hgb 8.7 g/dL (12.0-15.0) L 02/09/20 04:50 Hct 26.3 % (36.0-45.0) L 02/09/20 04:50 Plt Count 140 K/uL (152-406) L 02/09/20 04:50 PT 11.7 SECONDS (9.5-12.5) 02/06/20 12:58 INR 0.99 02/06/20 12:58 APTT 24.5 SECONDS (24.3-36.9) 02/06/20 12:58 Sodium 144 mmol/L (136-145) 02/09/20 04:50 Potassium 3.7 mmol/L (3.5-5.1) 02/09/20 04:50 BUN 18 mg/dL (7-18) 02/09/20 04:50 Creatinine 0.64 mg/dL (0.55-1.3) 02/09/20 04:50 Glucose 77 mg/dL (74-106) 02/09/20 04:50 Phosphorus 1.6 mg/dL (2.5-4.9) L 02/09/20 04:50 Magnesium 1.5 mg/dL (1.8-2.4) L 02/09/20 04:50 Total Bilirubin 0.4 mg/dL (0.2-1.0) 02/07/20 05:20 AST 34 U/L (15-37) 02/07/20 05:20 ALT 11 U/L (12-78) L 02/07/20 05:20 Alkaline Phosphatase 96 U/L (45-117) 02/07/20 05:20 Troponin I 0.04 ng/mL (0.0-0.045) 02/07/20 05:20 Amylase 54 U/L (25-115) 02/06/20 12:58 Lipase 152 U/L (73-393) 02/06/20 12:58 Home Medications: Aspirin [Aspirin EC 81 MG] 81 mg PO DAILY 02/06/20 Azo Standard 1 tab PO PRN 02/06/20 Levothyroxine [Synthroid*] 88 mcg PO DAILY 02/06/20 Meclizine HCl 25 mg PO PRN 02/06/20 Omeprazole [Prilosec] 40 mg PO DAILY 02/06/20 Oxycodone/Acetaminophen 1 tab PO Q6HP PRN 02/06/20 Simvastatin 20 mg PO DAILY 02/06/20 Tamsulosin [Flomax*] 0.4 mg PO DAILY 02/06/20 Uribel 1 tab PO DAILY 02/06/20 clonazePAM [Clonazepam] 1 mg PO BEDTIME 02/06/20 Cefpodoxime Proxetil 100 mg PO BID #8 tablet 02/09/20 New Medications: Cefpodoxime Proxetil 100 mg PO BID #8 tablet Diet: AHA Activity: Fall precautions Time spent managing pt's care (in minutes): 40
[2020-02-09 12:25] VITALS: BP 131/57; TEMP 97.6
[2020-02-10] MEDS ORDERED: VANCOMYCIN 1.25 GM in NA CHLORIDE 0.9% 250 ML IVPB SCH (07:00)
== END 2020-02-09 12:53 | DRG 871 ==
LOC: ER 11:47 → ERHOLD 15:35 → 2ND 17:50
PROVIDERS: ADMIT Internal Medicine; ATTEND Internal Medicine
PROC: 06HY33Z Insertion of Infusion Device into Lower Vein, Percutaneous Approach (ICD-10-PCS; principal; 2020-02-06)
DX: A41.9 Sepsis, unspecified organism (principal); R65.21 Severe sepsis with septic shock; G93.41 Metabolic encephalopathy; N17.9 Acute kidney failure, unspecified; E87.2 Acidosis; N30.00 Acute cystitis without hematuria; K52.9 Noninfective gastroenteritis and colitis, unspecified; G89.29 Other chronic pain; I10 Essential (primary) hypertension; Z79.82 Long term (current) use of aspirin; Z79.890 Hormone replacement therapy; Z79.899 Other long term (current) drug therapy; Z88.8 Allergy status to other drugs, medicaments and biological substances; E03.9 Hypothyroidism, unspecified; Z90.49 Acquired absence of other specified parts of digestive tract; Z90.710 Acquired absence of both cervix and uterus; Z90.12 Acquired absence of left breast and nipple; E78.5 Hyperlipidemia, unspecified; Z98.84 Bariatric surgery status; Z86.14 Personal history of Methicillin resistant Staphylococcus aureus infection; E87.6 Hypokalemia
CPT/HCPCS: 36415; 51702; 70450; 71045; 71250; 72125; 80048; 80053; 80076; 80202; 81003; 81015; 82150; 82550; 82553; 82607; 82728; 82746; 83540; 83605; 83690; 83735; 83880; 84100; 84145; 84439; 84443; 84466; 84484; 85025; 85610; 85730; 87040; 87077; 87086; 87088; 87186; 93005; 94760; 96365; 96375; 97116; 97161; 97530; 99285; J0692; J1450; J1644; J1720; J2405; J3010; J3475; J7030; J7040; P9047

== ENCOUNTER 2020-02-24 20:08 | Inpatient (IN) | payer OTHER, BC ==
[2020-02-24] MEDS ORDERED: NA CHLORIDE 0.9% 1,000 ML ONE (20:57)
[2020-02-24 21:03] LABS: Urine Blood 1+ (NEG); Urine Glucose NEGATIVE (NEG); Urine Protein 2+ (NEG); Urine Specific Gravity >1.030 (1.005-1.030); Urine pH 5.5 (5.0-7.0)
[2020-02-24 21:12] LABS: Protime INR 0.93
[2020-02-24 21:29] LABS: Urine Bacteria 20-50 /HPF (<20); Urine Culture Reflex Order REFLEXED; Urine Mucus 1+ /HPF (NONE SEEN)
[2020-02-24 21:38] LABS: ALT/SGPT 11 U/L (12-78); AST/SGOT 16 U/L (15-37); Albumin 3.4 g/dL (3.4-5.0); Alkaline Phosphatase 121 U/L (45-117); BUN Blood Urea Nitrogen 26 mg/dL (7-18); Bicarbonate 25 mmol/L (21-32); Bilirubin Direct < 0.1 mg/dL (0-0.2); Bilirubin Total 0.2 mg/dL (0.2-1.0); Glucose Level 82 mg/dL (74-106); Magnesium 1.7 mg/dL (1.8-2.4); NT PRO-BNP 305 pg/mL (<125); Potassium 3.4 mmol/L (3.5-5.1); Protein, Total 6.7 g/dL (6.4-8.2); Sodium Level 140 mmol/L (136-145); Troponin (Emerg Dept Use Only) < 0.02 ng/mL (0.0-0.045)
--- NOTE | 2020-02-24 21:56 | RAD REPORT ---
EXAM DESCRIPTION: [place] Single View02/24/2020 9:13 pm CLINICAL HISTORY: Left acute, Chest pain COMPARISON: February 06, 2020 FINDINGS: The lungs appear clear of acute infiltrate. The heart is normal size IMPRESSION: No acute abnormalities displayed
[2020-02-24 22:03] LABS: Absolute Lymphocytes (CBC) 0.6 K/uL (0.7-4.9); Basophils % 0.8 % (0-1.3); Hematocrit 34.9 % (36.0-45.0); Lymphocytes % 10.5 % (15.3-44.8); MPV 8.5 fL (7.6-11.3); RBC Red Blood Cell Count 3.59 M/uL (3.86-4.86)
--- NOTE | 2020-02-24 23:09 | ER ---
Nurse's Notes [facility] Name: Tina Padron Age: 74 yrs Sex: Female : 1945 Arrival Date: 02/24/2020 Time: 20:09 Bed 7 Private MD: Diagnosis: Urosepsis. Dehydration. Lethary Presentation: 02/23 20:14 Chief complaint: EMS states: called because of lethargy and decreased intake. rv she was diagnosed and being treated for UTI. denies headache, nausea, vomiting, abdominal pain, and/or urination problems. Coronavirus screen: Proceed with normal triage. Ebola Screen: No symptoms or risks identified at this time. 20:14 Method Of Arrival: EMS: [facility] rv 20:14 Initial Sepsis Screen: Does the patient meet any 2 criteria? No. Patient's initial rv sepsis screen is negative. Does the patient have a suspected source of infection? No. Patient's initial sepsis screen is negative. Risk Assessment: Do you want to hurt yourself or someone else? Patient reports no desire to harm self or others. Onset of symptoms was February 24, 2020 at 19:00. 20:14 Acuity: TYLOR 4 rv 21:00 Acuity: TYLOR 3 rv Triage Assessment: 20:19 General: Appears comfortable, Behavior is uncooperative. Pain: Denies pain. EENT: No rv signs and/or symptoms were reported regarding the EENT system. Neuro: Level of Consciousness is awake, alert, obeys commands, Oriented to person, place. Cardiovascular: Patient's skin is warm and dry. Rhythm is sinus rhythm. Respiratory: Airway is patent Breath sounds are clear bilaterally. GI: Abdomen is flat, non-distended. Derm: Skin with poor turgor. Historical: - Allergies: 20:18 Compazine; rv - PMHx: 20:18 "shattered shoulder"; Anxiety; chronic uti; Hyperlipidemia; Hypertension; rv Hypothyroidism; spinal fractures; - PSHx: 20:18 Unable to obtain; rv - Immunization history:: Adult Immunizations up to date. - Social history:: Smoking status: Patient/guardian denies using tobacco, the patient reports quitting approximately 10 years ago. Screenin:24 Abuse screen: Denies threats or abuse. Denies injuries from another. Nutritional rv screening: decreased intake.. Tuberculosis screening: No symptoms or risk factors identified. Fall Risk None identified. Assessment: 23:42 Pain: Denies pain. Neuro: Level of Consciousness is awake, Oriented to person, place. rv Neuro: Cardiovascular: Patient's skin is warm and dry. Rhythm is sinus rhythm. Respiratory: Airway is patent. Vital Signs: 20:14 BP 101 / 64; Pulse 73; Resp 18; Temp 98.5; Pulse Ox 97% on R/A; rv 20:14 Weight 66.22 kg; Height 5 ft. 5 in. (165.10 cm); Pain 0/10; rv 21:00 BP 98 / 54; Pulse 73; Resp 17; Pulse Ox 99% on R/A; rv 21:30 BP 93 / 61; Pulse 76; Resp 16; Pulse Ox 100% on R/A; rv 22:00 BP 94 / 52; Pulse 74; Resp 16; Pulse Ox 100% on R/A; rv 23:00 BP 109 / 47; Pulse 72; Resp 16; Pulse Ox 100% on R/A; rv 23:43 BP 98 / 48; Pulse 69; Resp 20; Pulse Ox 99% on R/A; rv 02/24 00:32 BP 102 / 51; Pulse 68; Resp 16; Temp 98.3(O); Pulse Ox 100% ; rv 02/23 20:14 Body Mass Index 24.30 (66.22 kg, 165.10 cm) rv [place] Coma Score: 02/23 23:43 Eye Response: spontaneous(4). Verbal Response: confused(4). Motor Response: obeys rv commands(6). Total: 14. ED Course: 20:09 Patient arrived in ED. ds1 20:09 Guevara Marie MD is Attending Physician. pkl 20:13 Nestor Mosqueda RN is Primary Nurse. rv 20:18 Triage completed. rv 20:19 Arm band placed on Patient placed in the treatment room, on a stretcher, on cardiac rv monitor, on pulse oximetry, Patient notified of wait time. 20:24 Patient has correct armband on for positive identification. Bed in low position. Call rv light in reach. Side rails up X2. case monitor on. Pulse ox on. NIBP on. 21:13 XRAY Chest (1 view) In Process Unspecified. EDMS 21:33 Missed attempt(s): 22 gauge in right hand. forearm. antecubital area. rv 22:57 Inserted saline lock: 24 gauge in right hand, using aseptic technique. ea 23:03 Initial lab(s) drawn, by ED staff, sent to lab. a lactate has been drawn. sg 23:06 Bozena Piña MD is Hospitalizing Provider. pkl 02/24 00:34 No provider procedures requiring assistance completed. IV is patent, with fluids rv infusing freely, with good blood return, Patient admitted, IV remains in place. Administered Medications: 02/23 22:56 Drug: NS 0.9% 1000 ml Route: IV; Rate: 125 ml/hr; Site: right hand; rv 02/24 00:35 Follow up: IV Status: Completed infusion rv 02/23 22:56 Drug: NS 0.9% 1000 ml Route: IV; Rate: 1000 ml; Site: right hand; rv 02/24 00:35 Follow up: IV Status: Completed infusion; IV Intake: 1000ml rv 02/23 23:37 Drug: Potassium Effervescent Tablet 25 mEq Route: PO; rv 02/24 00:35 Follow up: Response: No adverse reaction rv 02/23 23:38 Drug: Magnesium Sulfate 1 grams Route: IVPB; Infused Over: 1 hrs; Site: right hand; rv 02/24 00:35 Follow up: IV Status: Completed infusion; IV Intake: 100ml rv 00:37 Drug: [place] 5 mg-325 mg 1 tabs {Note: rass 0.} Route: PO; rv 00:37 Follow up: Response: Medication administered at discharge. rv Intake: 00:35 IV: 1000ml; Total: 1000ml. rv 00:35 IV: 100ml; Total: 1100ml. rv Outcome: 02/23 23:08 Decision to Hospitalize by Provider. pkl 02/24 00:34 Admitted to Med/surg accompanied by nurse, via stretcher, room 203, with chart, Report rv called to ANALILIA MCGRATH Condition: good Instructed on the need for admit, Demonstrated understanding of instructions. 00:46 Patient left the ED. rv Signatures: Dispatcher [employer] EDMS Addy Vale RN RN sg Lam, Pin, MD MD pkl Jenny Harris ds1 Analy Alfonso RN RN ea Vicente, Ronaldo RN RN rv
--- NOTE | 2020-02-24 23:09 | EDPHYS ---
Physician Documentation [facility] Name: Tina Padron Age: 74 yrs Sex: Female : 1945 Arrival Date: 02/24/2020 Time: 20:09 Bed 7 Private MD: ED Physician Guevara Marie HPI: 02/23 20:42 This 74 yrs old Female presents to ER via EMS with complaints of Urinary pkl Problem. 20:42 The patient presents with urinary symptoms, frequency. Onset: The symptoms/episode pkl began/occurred 1 week(s) ago. Associated signs and symptoms: Pertinent positives: lethargy and decrease appetite. Patient taking Bactrim for UTI for the last 3 days. Historical: - Allergies: 20:18 Compazine; rv - PMHx: 20:18 "shattered shoulder"; Anxiety; chronic uti; Hyperlipidemia; Hypertension; rv Hypothyroidism; spinal fractures; - PSHx: 20:18 Unable to obtain; rv - Immunization history:: Adult Immunizations up to date. - Social history:: Smoking status: Patient/guardian denies using tobacco, the patient reports quitting approximately 10 years ago. ROS: 20:42 Positive for urinary frequency. pkl 20:42 Eyes: Negative for injury, pain, redness, and discharge, ENT: Negative for injury, pain, and discharge, Neck: Negative for injury, pain, and swelling, Cardiovascular: Negative for chest pain, palpitations, and edema, Respiratory: Negative for shortness of breath, cough, wheezing, and pleuritic chest pain, Abdomen/GI: Negative for abdominal pain, nausea, vomiting, diarrhea, and constipation, Back: Negative for injury and pain, MS/Extremity: Negative for injury and deformity, Skin: Negative for injury, rash, and discoloration. 20:42 Neuro: Positive for lethargy. Exam: 20:42 Head/Face: Normocephalic, atraumatic. Eyes: Pupils equal round and reactive to light, pkl extra-ocular motions intact. Lids and lashes normal. Conjunctiva and sclera are non-icteric and not injected. Cornea within normal limits. Periorbital areas with no swelling, redness, or edema. ENT: Nares patent. No nasal discharge, no septal abnormalities noted. Tympanic membranes are normal and external auditory canals are clear. Oropharynx with no redness, swelling, or masses, exudates, or evidence of obstruction, uvula midline. Mucous membranes moist. Neck: Trachea midline, no thyromegaly or masses palpated, and no cervical lymphadenopathy. Supple, full range of motion without nuchal rigidity, or vertebral point tenderness. No Meningismus. Chest/axilla: Normal chest wall appearance and motion. Nontender with no deformity. No lesions are appreciated. Cardiovascular: Regular rate and rhythm with a normal S1 and S2. No gallops, murmurs, or rubs. Normal PMI, no JVD. No pulse deficits. Respiratory: Lungs have equal breath sounds bilaterally, clear to auscultation and percussion. No rales, rhonchi or wheezes noted. No increased work of breathing, no retractions or nasal flaring. Abdomen/GI: Soft, non-tender, with normal bowel sounds. No distension or tympany. No guarding or rebound. No evidence of tenderness throughout. Back: No spinal tenderness. No costovertebral tenderness. Full range of motion. Skin: Warm, dry with normal turgor. Normal color with no rashes, no lesions, and no evidence of cellulitis. MS/ Extremity: Pulses equal, no cyanosis. Neurovascular intact. Full, normal range of motion. Neuro: Awake and alert, GCS 15, oriented to person, place, time, and situation. Cranial nerves II-XII grossly intact. Motor strength 5/5 in all extremities. Sensory grossly intact. Cerebellar exam normal. Normal gait. Vital Signs: 20:14 BP 101 / 64; Pulse 73; Resp 18; Temp 98.5; Pulse Ox 97% on R/A; rv 20:14 Weight 66.22 kg; Height 5 ft. 5 in. (165.10 cm); Pain 0/10; rv 21:00 BP 98 / 54; Pulse 73; Resp 17; Pulse Ox 99% on R/A; rv 21:30 BP 93 / 61; Pulse 76; Resp 16; Pulse Ox 100% on R/A; rv 22:00 BP 94 / 52; Pulse 74; Resp 16; Pulse Ox 100% on R/A; rv 23:00 BP 109 / 47; Pulse 72; Resp 16; Pulse Ox 100% on R/A; rv 23:43 BP 98 / 48; Pulse 69; Resp 20; Pulse Ox 99% on R/A; rv 02/24 00:32 BP 102 / 51; Pulse 68; Resp 16; Temp 98.3(O); Pulse Ox 100% ; rv 02/23 20:14 Body Mass Index 24.30 (66.22 kg, 165.10 cm) rv [place] Coma Score: 02/23 23:43 Eye Response: spontaneous(4). Verbal Response: confused(4). Motor Response: obeys rv commands(6). Total: 14. MDM: 20:10 Patient medically screened. pkl 23:05 Data reviewed: vital signs, nurses notes, lab test result(s), EKG, radiologic studies, pkl plain films. ED course: Talked to Dr. Piña, admit. 02/23 20:40 Order name: Basic Metabolic Panel; Complete Time: 22:03 pkl 02/23 20:40 Order name: CBC with Diff; Complete Time: 22:39 pkl 02/23 20:40 Order name: LFT's; Complete Time: 22:03 pkl 02/23 20:40 Order name: Magnesium; Complete Time: 22:03 pkl 02/23 20:40 Order name: NT PRO-BNP; Complete Time: 22:03 pkl 02/23 20:40 Order name: PT-INR; Complete Time: 21:23 pkl 02/23 20:40 Order name: Troponin (emerg Dept Use Only); Complete Time: 22:03 pkl 02/23 20:41 Order name: Lactate; Complete Time: 23:45 pkl 02/23 20:57 Order name: Urine Dipstick--Ancillary (enter results) [facility] 02/23 20:58 Order name: Urine Dipstick-Ancillary; Complete Time: 21:06 EDMS 02/23 21:04 Order name: Urine Microscopic Only; Complete Time: 22:03 mw2 02/23 21:04 Order name: Urine Culture [facility] 02/23 23:54 Order name: CBC with Automated Diff EDMS 02/23 23:54 Order name: CBC with Automated Diff EDMS 02/23 20:40 Order name: XRAY Chest (1 view); Complete Time: 22:03 pkl 02/23 20:40 Order name: EKG; Complete Time: 20:42 pkl 02/23 20:40 Order name: Cardiac monitoring; Complete Time: 20:43 pkl 02/23 23:50 Order name: Elbow Left 2 View [facility] 02/23 23:50 Order name: Hand Left 2 View [facility] 02/23 23:50 Order name: Shoulder Left 2 View [facility] 02/23 23:54 Order name: CONS Pharmacy Consult [facility] 02/23 23:54 Order name: CONS Physician Consult [facility] 02/23 23:54 Order name: Heart Healthy [facility] 02/23 23:54 Order name: Comprehensive Metabolic Panel [facility] 02/23 23:54 Order name: Comprehensive Metabolic Panel [facility] 02/23 20:40 Order name: EKG - Nurse/Tech; Complete Time: 21:06 pkl 02/23 20:40 Order name: IV Saline Lock; Complete Time: 22:56 pkl 02/23 20:40 Order name: Labs collected and sent; Complete Time: 21:06 pkl 02/23 20:40 Order name: O2 Per Protocol; Complete Time: 21:06 pkl 02/23 20:40 Order name: O2 Sat Monitoring; Complete Time: 21:06 pkl Administered Medications: 22:56 Drug: NS 0.9% 1000 ml Route: IV; Rate: 125 ml/hr; Site: right hand; rv 02/24 00:35 Follow up: IV Status: Completed infusion rv 02/23 22:56 Drug: NS 0.9% 1000 ml Route: IV; Rate: 1000 ml; Site: right hand; rv 02/24 00:35 Follow up: IV Status: Completed infusion; IV Intake: 1000ml rv 02/23 23:37 Drug: Potassium Effervescent Tablet 25 mEq Route: PO; rv 02/24 00:35 Follow up: Response: No adverse reaction rv 02/23 23:38 Drug: Magnesium Sulfate 1 grams Route: IVPB; Infused Over: 1 hrs; Site: right hand; rv 02/24 00:35 Follow up: IV Status: Completed infusion; IV Intake: 100ml rv 00:37 Drug: [place] 5 mg-325 mg 1 tabs {Note: rass 0.} Route: PO; rv 00:37 Follow up: Response: Medication administered at discharge. rv Disposition: 02/24/20 23:08 Hospitalization ordered by Bozena Piña for Inpatient Admission. Preliminary diagnosis is Urosepsis. Dehydration. Lethary. - Bed requested for Telemetry/MedSurg (Inpatient). - Status is Inpatient Admission. rv - Condition is Stable. - Problem is new. - Symptoms are unchanged. Signatures: Dispatcher [employer] EDMS Vanessa Juan RN RN Guevara Ferro MD MD pkl Mateo Guzman PA PA cp Vicente, Ronaldo, RN RN rv Corrections: (The following items were deleted from the chart) 00:18 02/23 23:08 Hospitalization Ordered by Bozena Piña MD for Inpatient Admission. jacy Preliminary diagnosis is Urosepsis. Dehydration. Lethary. Bed requested for Telemetry/MedSurg (Inpatient). Status is Inpatient Admission. Condition is Stable. Problem is new. Symptoms are unchanged. pkl 02/24 00:46 00:18 02/24/2020 23:08 Hospitalization Ordered by Bozena Piña MD for Inpatient rv Admission. Preliminary diagnosis is Urosepsis. Dehydration. Lethary. Bed requested for Telemetry/MedSurg (Inpatient). Status is Inpatient Admission. Condition is Stable. Problem is new. Symptoms are unchanged. jacy
[2020-02-24] MEDS ORDERED: POTASSIUM 25 MEQ EFFERV TAB ONE (23:38)
[2020-02-24] MEDS ORDERED: MAGNESIUM SULFATE 1 gm IVPB 1 GM/100 ML BAG IV ONE (23:38)
[2020-02-24] MEDS ORDERED: ONDANSETRON 4 MG/2 ML VIAL IV PRN (23:50)
[2020-02-24] MEDS ORDERED: HYDROMORPHONE HCL 0.5 MG/0.5 ML INJ IV PRN (23:50)
[2020-02-24] MEDS ORDERED: ACETAMINOPHEN 500 MG TAB PO PRN (23:50)
[2020-02-25] MEDS ORDERED: HYDROCODONE/APAP 5/325 MG TAB ONE (00:45)
[2020-02-25] MEDS ORDERED: CEFTRIAXONE 1 GM/NS 50 ML 1 GM/50 ML BAG IV ONE (01:00)
[2020-02-25 01:13] VITALS: BMI 22.3
[2020-02-25] MEDS ORDERED: CEFTRIAXONE 1000 MG/VIAL ONE (01:26)
[2020-02-25] MEDS ORDERED: NA CHLORIDE 0.9% 100 ML ONE (01:28)
[2020-02-25] MEDS: NA CHLORIDE 0.9% 1,000 ML IV SCH ×2 (01:37→23:39)
[2020-02-25 06:30] LABS: Absolute Lymphocytes (CBC) 0.5 K/uL (0.7-4.9); Basophils % 0.7 % (0-1.3); Hematocrit 31.3 % (36.0-45.0); Lymphocytes % 11.2 % (15.3-44.8); MPV 8.7 fL (7.6-11.3); RBC Red Blood Cell Count 3.26 M/uL (3.86-4.86)
[2020-02-25 06:50] LABS: Albumin 2.8 g/dL (3.4-5.0); Bilirubin Total 0.2 mg/dL (0.2-1.0); Potassium 4.2 mmol/L (3.5-5.1); Protein, Total 5.7 g/dL (6.4-8.2)
[2020-02-25] MEDS ORDERED: POTASSIUM 25 MEQ EFFERV TAB PO ONE (07:36)
[2020-02-25] MEDS ORDERED: MAGNESIUM SULFATE 1 gm IVPB 1 GM/100 ML BAG IV ONE (07:36)
[2020-02-25] MEDS ORDERED: POTASSIUM CL SA 10 MEQ TAB PO ONE (07:50)
--- NOTE | 2020-02-25 07:59 | P.HP ---
Certification for Inpatient Patient admitted to: Inpatient With expected LOS: >2 Midnights Patient will require the following post-hospital care: None Practitioner: I am a practitioner with admitting privileges, knowledge of patient current condition, hospital course, and medical plan of care. Services: Services provided to patient in accordance with Admission requirements found in Title 42 Section 412.3 of the Code of Federal Regulations Patient History Date of Service: 02/25/20 Reason for admission: Acute kidney injury History of Present Illness: Patient is a 74-year-old female who had fallen and she suffered a shoulder injury. Patient has not been eating or drinking since being at home. She has been taking narcotics for pain. Her pain was not improving and she took extra dose. Patient has been feeling lightheaded. In the emergency room patient had labs performed which revealed acute kidney injury. Patient has normal GFR is greater than 60 and at this time it is approximately 20. Patient was found have acute kidney injury, and patient will be admitted for further evaluation. Allergies prochlorperazine [From Compazine] Allergy (Intermediate, Verified 12/08/17 12:55) PYSCHOSIS Prochlorperazine Maleate Allergy (Uncoded 04/22/18 15:25) Unknown Home Medications: Aspirin [Aspirin EC 81 MG] 81 mg PO DAILY 02/06/20 Levothyroxine [Synthroid*] 88 mcg PO DAILY 02/06/20 Omeprazole [Prilosec] 40 mg PO DAILY 02/06/20 Simvastatin 20 mg PO DAILY 02/06/20 Tamsulosin [Flomax*] 0.4 mg PO DAILY 02/06/20 Uribel 1 tab PO DAILY 02/06/20 clonazePAM [Clonazepam] 1 mg PO BEDTIME 02/06/20 Albuterol Sulfate [Proair Respiclick] 90 mcg IH PRN 02/25/20 Carboxymethylcellulose Sodium [Artificial Tears] 1 drop OP BID 02/25/20 Cranberry 1,000 mg PO DAILY 02/25/20 Estrogens,Conj Cream [Premarin 0.625MG/Gm*] 1 appl VAG M,W,F 02/25/20 Meclizine HCl 25 mg PO PRN 02/25/20 Mirabegron [Myrbetriq] 50 mg PO DAILY 02/25/20 Nitrofuran Macro [Macrobid] 100 mg PO DAILY 02/25/20 Oxycodone HCl/Acetaminophen [Oxycodon-Acetaminophen 7.5-325] 1 each PO QIDP PRN 02/25/20 Phenazopyridine HCl [Azo Urinary Pain Relief] 97.5 mg PO TIDP PRN 02/25/20 Smz./Tmp. [Bactrim Ds 800 MG/160 MG] 1 tab PO BID 02/25/20 - Past Medical/Surgical History Has patient received pneumonia vaccine in the past: Yes Diabetic: No -: Hypertension -: Hypothyroidism -: B-cell lymphoma -: DDD/DJD of spine -: Chronic recurrent UTI requiring long-term antibiot -: shingles ( ) -: Vertigo -: Anxiety -: Hysterectomy -: Cholecystectomy, Gastric Bypass -: Gastric torsion repair -: Right Hip surgery -: Knee surgery -: Port-A-Cath placement and removal -: Right Shoulder Sx, LISA lens replacement -: TONSILLECTOMY Psychosocial/ Personal History: The patient is originally from [place]. She moved to the area in July. She is . She has 3 children. - Family History Mother Medical History: Heart disease, Hypertension, Diabetes, Kidney disease Father Medical History: Heart disease, Diabetes, Other (see notes) Notes: Alzheimers - Social History Smoking Status: Former smoker Alcohol use: No CD- Drugs: No Caffeine use: Yes Place of Residence: Home Review of Systems 10-point ROS is otherwise unremarkable Physical Examination - Vital Signs Temperature: 97.6 F Blood Pressure: 126/62 Pulse: 61 Respirations: 15 Pulse Ox (%): 91 - Physical Exam General: Alert, In no apparent distress, Oriented x3 HEENT: Atraumatic, PERRLA, Mucous membr. moist/pink, EOMI, Sclerae nonicteric Neck: Supple, 2+ carotid pulse no bruit, No LAD, Without JVD or thyroid abnormality Respiratory: Clear to auscultation bilaterally, Normal air movement Cardiovascular: Regular rate/rhythm, Normal S1 S2, No murmurs Gastrointestinal: Normal bowel sounds, Soft and benign, Non-distended, No tenderness Musculoskeletal: No clubbing, No swelling, No tenderness Integumentary: Other (Poor skin turgor) Neurological: Normal speech, Normal tone, Sensation intact, Cranial nerves 3-12 intact, Normal affect, Abnormal gait, Abnormal strength Lymphatics: No axilla or inguinal lymphadenopathy - Studies Laboratory Data (last 24 hrs) 02/24/20 21:53: WBC 5.8 D, Hgb 11.6 L, Hct 34.9 L D, Plt Count 151 L 02/24/20 21:00: PT 11.0, INR 0.93 02/24/20 21:00: Sodium 140, Potassium 3.4 L, BUN 26 H, Creatinine 2.25 H D, Glucose 82, Magnesium 1.7 L, Total Bilirubin 0.2, AST 16, ALT 11 L, Alkaline Phosphatase 121 H Assessment & Plan - Problems (Diagnosis) (1) Shoulder injury Current Visit: Yes Status: Acute (2) Chronic pain syndrome Current Visit: Yes Status: Acute (3) Acute renal injury Onset Date: 12/09/17 Current Visit: No Status: Acute (4) Dehydration Current Visit: No Status: Acute (5) Dizziness Current Visit: No Status: Acute (6) Fall Onset Date: ~03/25/18 Current Visit: No Status: Acute Qualifiers: (7) UTI (urinary tract infection) Current Visit: Yes Status: Acute - Plan Plan: 1. IV hydration 2. IV antibiotics 3. Pain control 4. Repeat left upper extremity x-rays 5. Continue blood pressure medication and continue with thyroid medication 6. Monitor nutritional status 7. Physical therapy evaluation 8. GI and DVT prophylaxis Discharge Plan: Home Plan to discharge in: Greater than 2 days - Advance Directives Does patient have a Living Will: Yes Does patient have a Durable POA for Healthcare: Yes - Code Status/Comfort Care Code Status Assessed: Yes Code Status: Full Code Critical Care: No Time Spent Managing PTS Care (In Minutes): 40
[2020-02-25] MEDS ORDERED: ACETAMINOPHEN PO PRN (08:00)
[2020-02-25] MEDS ORDERED: HOME MED 1 EA UNK (Meclizine Hcl [Meclizine Hcl] 25 MG) PO SCH (08:00)
[2020-02-25] MEDS ORDERED: PHENAZOPYRIDINE HCL 97.5 MG PO PRN (08:00)
[2020-02-25] MEDS ORDERED: OXYCODONE HCL PO PRN (08:00)
[2020-02-25] MEDS ORDERED: ALBUTEROL SULFATE 90 MCG IH SCH (08:00)
[2020-02-25] MEDS: TAMSULOSIN 0.4 MG SR CAP PO SCH (08:12)
[2020-02-25] MEDS: ASPIRIN EC 81 MG TAB PO SCH (08:12)
--- NOTE | 2020-02-25 08:32 | RAD REPORT ---
EXAM DESCRIPTION: RAD - Shoulder Left 2 View - 02/25/2020 12:53 am CLINICAL HISTORY: Shoulder pain FINDINGS: Subacute humeral head fracture without significant change in appearance from December. An old fracture involves the distal left clavicle. Osteoporosis No dislocation
--- NOTE | 2020-02-25 08:34 | RAD REPORT ---
EXAM DESCRIPTION: RAD - Hand Left 2 View - 02/25/2020 12:53 am CLINICAL HISTORY: Left hand pain status post injury FINDINGS: No fracture or dislocation is seen. osteoporosis A limited two-view series was obtained
--- NOTE | 2020-02-25 08:34 | RAD REPORT ---
EXAM DESCRIPTION: RAD - Elbow Left 2 View - 02/25/2020 7:21 am CLINICAL HISTORY: Left elbow pain FINDINGS: A limited two-view series. Suboptimal lateral view. No gross fracture or dislocation seen. Osteoporosis
[2020-02-25 08:50] LABS: Platelet Estimate ADEQ; Urine White Blood Cell Casts OK
[2020-02-25 08:51] LABS: Anisocytosis 1+; Basophilic Stippling 1+; Blood Morphology Comment NOTED (NOT SEEN)
[2020-02-25] MEDS ORDERED: HOME MED 1 EA UNK (Mirabegron [Myrbetriq] 50 MG) PO SCH (09:00)
[2020-02-25] MEDS ORDERED: HOME MED 1 EA UNK (Cranberry [Cranberry] 1,000 MG) PO SCH (09:00)
[2020-02-25] MEDS ORDERED: URIBEL PO SCH (09:00)
[2020-02-25] MEDS ORDERED: HOME MED 1 EA UNK (Simvastatin [Simvastatin] 20 MG) PO SCH (09:00)
[2020-02-25] MEDS ORDERED: NITROFURANTOIN 100 MG PO SCH (09:00)
[2020-02-25] MEDS ORDERED: CARBOXYMETHYLCELLULOSE SODIUM OP SCH (09:00)
[2020-02-25] MEDS ORDERED: LEVOTHYROXINE SOD 0.088 MG TAB PO SCH (09:00)
[2020-02-25] MEDS ORDERED: HOME MED 1 EA UNK (Omeprazole [Prilosec] 40 MG) PO SCH (09:00)
--- NOTE | 2020-02-25 09:10 | RAD REPORT ---
EXAM DESCRIPTION: US - Renal Ultrasound-Complete - 02/25/2020 8:27 am CLINICAL HISTORY: Acute renal failure COMPARISON: 2018 FINDINGS: The right kidney measures 10 cm with a normal echotexture. Several cysts. The largest jamin ures 4.2 centimeters and is without significant change. The left kidney measures 10 cm with a normal echotexture. 1.9 centimeter cyst Hydronephrosis is not seen. No gross abnormality of bladder IMPRESSION: Renal cysts
[2020-02-25] MEDS: Oxycodone HCl/Acetaminophen 1 TAB TAB PO PRN ×2 (11:49→17:59)
--- NOTE | 2020-02-25 13:38 | P.PN ---
Subjective Date of Service: 02/25/20 Chief Complaint: Acute kidney injury Subjective: No new changes, No C/O voiced (Feels better,, status states she feels weak) Review of Systems 10-point ROS is otherwise unremarkable Physical Examination - Vital Signs Temperature: 98.3 F Blood Pressure: 108/54 Pulse: 63 Respirations: 18 Pulse Ox (%): 98 - Physical Exam General: Alert, In no apparent distress, Oriented x3 HEENT: Atraumatic, Normocephalic, PERRLA Neck: Supple, 2+ carotid pulse no bruit Respiratory: Clear to auscultation bilaterally, Normal air movement Cardiovascular: Normal pulses, Regular rate/rhythm, Normal S1 S2 Gastrointestinal: Normal bowel sounds, Soft and benign Musculoskeletal: Other (Tenderness over the left leg, severe tenderness over the left shoulder) Neurological: Normal gait, Normal speech, Normal strength at 5/5 x4 extr - Studies Laboratory Data (last 24 hrs) 02/24/20 21:53: WBC 5.8 D, Hgb 11.6 L, Hct 34.9 L D, Plt Count 151 L 02/24/20 21:00: PT 11.0, INR 0.93 02/24/20 21:00: Sodium 140, Potassium 3.4 L, BUN 26 H, Creatinine 2.25 H D, Glucose 82, Magnesium 1.7 L, Total Bilirubin 0.2, AST 16, ALT 11 L, Alkaline Phosphatase 121 H Assessment And Plan - Current Problems (Diagnosis) (1) Chronic pain syndrome Current Visit: Yes Status: Acute (2) Shoulder injury Current Visit: Yes Status: Acute (3) UTI (urinary tract infection) Current Visit: Yes Status: Acute (4) Acute renal failure Current Visit: No Status: Acute Physician Review: Patient Assessed, Agree with Above Assessment and Plan Physician Review Additional Text: Acute renal failure-creatinine improving to 1.8 -continue gentle IV fluid hydration. -follow pending renal sono g -nephrology consult appreciated Left shoulder pain-NOTED HEALING SUBACUTE Humeral FRACTURE with old fracture of the distal left clavicle - Will consult orthopedics Will place lidocaine patch over area for pain control. -will consult PT/OT to help with ambulation and transfer Hypertension-controlled DVT prophylaxis-SCDs with subcutaneous heparin. Advanced directive-full code. Disposiiton- possible hospital stay for another 24 hr for pain management and transfer strengthening UTI-we start antibiotics follow full culture Time Spent Managing PTS Care (In Minutes): 35
[2020-02-25] MEDS ORDERED: ESTROGENS CONJ VAG SCH (17:00)
[2020-02-25] MEDS ORDERED: APPL VAG SCH (17:00)
--- NOTE | 2020-02-25 20:14 | EKG ---
Test Date: 2020-02-24 Test Time: 21:05:38 Other Sports Coach Or Instructor: ZAIN MEASUREMENT RESULTS: Intervals: Rate: 72 [place]: 166 QRSD: 72 QT: 442 QTc: 483 [place]: P: 49 [place]: 166 QRS: 4 T: 10 INTERPRETIVE STATEMENTS: Normal sinus rhythm Cannot rule out Inferior infarct, age undetermined Abnormal ECG Compared to ECG 02/06/2020 13:51:26 Myocardial infarct finding now present Electronically Signed On 02-25-20 20:11:10 CDT by Diaz Ramsay
[2020-02-25] MEDS: ATORVASTATIN 10 MG TAB PO SCH (21:18)
[2020-02-25] MEDS: clonazePAM 1 MG TAB PO SCH (21:18)
[2020-02-26] MEDS: LIDOCAINE 4% PATCH TOP SCH (00:56)
--- NOTE | 2020-02-26 01:15 | CON ---
Date of Consultation: 02/25/2020 Chief Complaint: Acute kidney injury. History Of Present Illness: Patient is admitted to the hospital because of generalized weakness, fat igue. Nephrology consultation was requested for abnormal kidney function test. Patient has multiple medical problems. She is a 74-year-old female, she came to the hospital after she sustained fall at home. She suffered a shoulder injury. Patient was not eating very well and had decreased appetite and decreased p.o. intake. Patient was taking narcotics for pain. The pain was improving with extra dose of medication. She was feeling lightheaded and weak. In the emergency room, lab work was perf ormed and showed elevated BUN and creatinine. Patient has chronic kidney disease stage 3, and [facility] GFR is 60, although during this hospitalization, she was found to have GFR declined to 20. She wa s found to have acute on chronic kidney injury with prerenal azotemia. Renal ultrasound was ordered to rule out other possible causes. Patient was treated with multiple medications for pain as well as she was taking omeprazole for stomach issues, Flomax for difficulty of voiding, as well as nitrofura ntoin for history of urinary tract infection. Review of Systems: Constitutional: Patient denies new complaints. Denies fever, chills. Eyes: Denies vision changes. Ears, Nose, Mouth and Throat: Denies sore throat, earaches. Respiratory: Denies PND, orthopnea. Cardiovascular: Denies chest pain, palpitations. GI: Denies melena, hematemesis. : Denies dysuria, hematuria. All other systems reviewed and all are negative. Past Medical History: Hypertension, hypothyroidism, B-cell lymphoma, degenerative disk disease, dege nerative joint disease of spine, chronic recurrent urinary tract infection on long-term preventive me dications, shingles, vertigo, anxiety, hysterectomy, cholecystectomy, gastric bypass, gastric torsion repair, right hip surgery, knee surgery, right shoulder bilateral replacement, tonsillect ben. Social History: Denies tobacco, alcohol, or illicit drugs. Family History: No kidney disease in the family. Physical Examination: General: Not in acute distress. Eyes: Anicteric sclerae. EOMI. Ears, Nose, Mouth, and Throat: Oral mucosa moist, no pallor. Neck: Supple. No bruits. Lungs: Clear to auscultation bilaterally. Heart: S1, S2. Abdomen: Soft, benign. Extremities: No edema. Laboratory Data: Hemoglobin 11.6, WBC 5.8, platelet count is 151,000. Sodium 140, potassium 3.4, BU N 26, creatinine 2.25, glucose 82, magnesium 1.7, AP 121. Impression And Plan: 1.Acute on chronic kidney injury. Continue IV fluids. Monitor renal function. Avoid nephrotoxic m edication. 2.Underlying hypotension. Adjust medication for blood pressure. Patient may require additional raul us of fluids to prevent renal hypoperfusion. 3.Continue IV antibiotics and rule out urinary tract infection. Renal ultrasound will be ordered to rule out hydronephrosis. 4.Status post fall. Plan is to check CK level to rule out rhabdomyolysis and dizziness. Patient wi ll have further workup. 5.Volume depletion. Continue IV fluids. GHASSNA/MODL Voice ID: [id number] Report ID: [id number]
[2020-02-26] MEDS: NA CHLORIDE 0.9% 1,000 ML IV SCH ×3 (05:45→17:55)
[2020-02-26] MEDS: LEVOTHYROXINE SOD 0.088 MG TAB PO SCH (06:12)
[2020-02-26] MEDS: PANTOPRAZOLE 40MG TABLET PO SCH (06:12)
[2020-02-26] MEDS: TAMSULOSIN 0.4 MG SR CAP PO SCH (08:14)
[2020-02-26] MEDS: ASPIRIN EC 81 MG TAB PO SCH (08:15)
[2020-02-26] MEDS: CEFTRIAXONE/SWI 1gm 1 GM/10 ML SYR IV SCH (08:15)
[2020-02-26] MEDS: Oxycodone HCl/Acetaminophen 1 TAB TAB PO PRN ×2 (09:00→18:13)
[2020-02-26] MEDS ORDERED: ATORVASTATIN 10 MG TAB PO SCH (09:00)
--- NOTE | 2020-02-26 11:56 | P.PN ---
Subjective Date of Service: 02/26/20 Chief Complaint: Acute kidney injury Subjective: No new changes, No C/O voiced (still pain over left shoulder - unable to transfer due to weakness -states she was seen by Orthopedics be for in [facility] and no scheduled for surgery) Physical Examination - Vital Signs Temperature: 98.6 F Blood Pressure: 105/59 Pulse: 66 Respirations: 16 Pulse Ox (%): 100 - Physical Exam General: Alert, Oriented x3, Oriented x2 HEENT: Atraumatic, Normocephalic Neck: 2+ carotid pulse no bruit, JVD not distended Respiratory: Clear to auscultation bilaterally, Normal air movement Cardiovascular: Normal pulses, Regular rate/rhythm, Normal S1 S2 Musculoskeletal: Other (Tenderness over the left shoulder with limited range of motion) Neurological: Normal speech, Normal tone Assessment And Plan - Current Problems (Diagnosis) (1) Chronic pain syndrome Current Visit: Yes Status: Acute (2) Shoulder injury Current Visit: Yes Status: Acute (3) UTI (urinary tract infection) Current Visit: Yes Status: Acute (4) Acute renal failure Current Visit: No Status: Acute Physician Review: Patient Assessed, Agree with Above Assessment and Plan Physician Review Additional Text: #Acute renal failure-follow repeat today - creatinine improving to 1.8 -continue gentle IV fluid hydration. -nephrology consult appreciated # Left shoulder pain/subacute humeral fracture/distal left clavicular fracture- follow pending orthopedic consult for plan for possible or vs conservative management -likely fracture limiting activity -continue PT and OT. -if no plan for surgery then can transfer patient back to SNF Hypertension-controlled DVT prophylaxis-SCDs with subcutaneous heparin. Advanced directive-full code. Disposition- controlled UTI-will start antibiotics,follow full culture Time Spent Managing PTS Care (In Minutes): 35
--- NOTE | 2020-02-26 12:51 | PN ---
Date of Progress Note: 02/26/2020 Subjective: Patient was admitted with acute kidney injury secondary to prerenal. Patient had recurr ent admission with acute kidney injury secondary to prerenal. Patient usually recovers. Patient com plaining of nausea and vomiting. Patient upon arrival to the hospital, creatinine was 2.2; currently after hydration, creatinine down to 1.8. Physical Examination: General: Patient is sleepy. Vital Signs: Blood pressure 105/59, pulse of 66. Yesterday, her blood pressure was down to the 90. Afebrile. Patient had good urine output of 1200. Chest: Clear to auscultation. Heart: S1, S2. Regular. Abdomen: Soft, nontender. Extremities: No edema. Neuro: Follow up simple command. Patient sleepy. Laboratory Data: Sodium 141, potassium 4.2, bicarb 27, BUN 26, creatinine 1.8, calcium of 8, magnesi um 1.7. Urinalysis positive for infection. Renal ultrasound 08/09, no hydro. Current Medications: The patient on include: 1.Ceftriaxone. 2.Flomax. 3.Pantoprazole. 4.Levothyroxine. 5.Normal saline. 6.Magnesium sulfate. 7.KCl. Assessment And Plan: 1.Acute kidney injury secondary to toxic acute tubular necrosis/poor perfusion acute tubular necrosi s. Obstructive uropathy has been ruled out. I am going to continue hydration. Patient looked still on the dry side and we will monitor the patient. 2.Hypokalemia, hypomagnesemia, status post supplement. We will follow up lab. 3.Urinary tract infection. Complicated urinary tract infection has been ruled out with ultrasound. We will continue follow up culture. 4.Deconditioning. Follow up with Primary. WENDY/LAUREL Voice ID: [id number] Report ID: [id number]
--- NOTE | 2020-02-26 19:57 | CON ---
Date of Consultation: 02/26/2020 History Of Present Illness: This is my first time seeing this patient to my knowledge. She is a 74- year-old female who unfortunately was admitted for a significant UTI as well as a fall. She was seen and examined in the emergency room where x-rays were taken and she is admitted on the floor in the c are of the hospitalist. I am consulted to see her for her left upper extremity. Physical Examination: She has full range of motion of her elbow. There may be some slight tenderness of the elbow. She do es have stiffness related to her hand and fingers with some swelling of her hand. She does have pain with movement or manipulation of her left shoulder. On further review of her history, she states that she fell approximately 5 weeks ago injuring her lef t upper extremity. She has seen another orthopedist who decide to treat this non-operatively and tony arently has not seen him back in followup as of yet. 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 Al so seen is a fracture of the proximal humerus from previous emergency room visit. This does not appe ar to be significantly different than the x-ray that she has today other than there is interval heali ng on the x-ray she has had after this admission. 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 At this time, she is encouraged in aggressive range of motion of her hand as well as her elbow. I think that she can bear some slight weight if absolutely necessary on her left shoulder. However, otherwise would parti cipate with common exercises in another few weeks with progress to active range of motion of the shou lder. Obviously, she can follow up me if she would like after discharge, but she has otherwise orthopedist she may wish to visit them. /LAUREL Voice ID: [id number] Report ID: [id number]
[2020-02-26] MEDS: ATORVASTATIN 10 MG TAB PO SCH (20:17)
[2020-02-26] MEDS: clonazePAM 1 MG TAB PO SCH ×2 (20:18→20:21)
[2020-02-27 01:25] LABS: Urine Protein/Creatinine Ratio 0.62 ratio (<0.15)
[2020-02-27] MEDS: Oxycodone HCl/Acetaminophen 1 TAB TAB PO PRN (02:41)
[2020-02-27] MEDS: NA CHLORIDE 0.9% 1,000 ML IV SCH ×2 (02:41→09:34)
[2020-02-27 04:24] LABS: Albumin 2.3 g/dL (3.4-5.0); Phosphorus 2.3 mg/dL (2.5-4.9)
[2020-02-27 04:25] LABS: Magnesium 1.7 mg/dL (1.8-2.4); Potassium 4.5 mmol/L (3.5-5.1)
[2020-02-27] MEDS: PANTOPRAZOLE 40MG TABLET PO SCH (05:30)
[2020-02-27] MEDS: LEVOTHYROXINE SOD 0.088 MG TAB PO SCH (05:30)
[2020-02-27] MEDS: LIDOCAINE 4% PATCH TOP SCH (09:00)
[2020-02-27] MEDS: ASPIRIN EC 81 MG TAB PO SCH (09:00)
[2020-02-27] MEDS: TAMSULOSIN 0.4 MG SR CAP PO SCH (09:00)
[2020-02-27] MEDS: CEFTRIAXONE/SWI 1gm 1 GM/10 ML SYR IV SCH (09:30)
[2020-02-27] MEDS ORDERED: MAGNESIUM SULFATE 1 gm IVPB 1 GM/100 ML BAG IV ONE (10:12)
--- NOTE | 2020-02-27 10:28 | PN ---
Date of Progress Note: 02/27/2020 Subjective: Patient was admitted with UTI, acute kidney injury secondary to prerenal. Patient refus ing treatment. Physical Examination: Vital Signs: When I saw the patient, blood pressure 116/52, pulse of 57. Chest: Clear to auscultation. Heart: S1, S2. Regular. Abdomen: Soft, nontender. Extremities: No edema. Laboratory Data: WBC 4.8, H and H 10.2/31.3, platelets 148. Sodium 145, potassium 4.5, bicarb 21, B UN 11, creatinine 0.9, GFR back to normal 60, calcium 8.2, phosphorus 2.3, magnesium 1.7, albumin 2.3 , corrected calcium is 9.6. Current Medications: The patient is on include ceftriaxone, Flomax, atorvastatin, clonazepam, pantop razole, levothyroxine, normal saline, hydromorphone. Assessment And Plan: 1.Acute kidney injury secondary to prerenal, resolved. I am going to go ahead and discontinue IV fl uids. 2.Hypokalemia, status post supplement, resolved. 3.Hypomagnesemia, we will supplement. 4.Urinary tract infection secondary to Morganella morganii and enterococcus. Enterococcus multi-faye g resistant, sensitive to gentamicin, amikacin. I am going to add gentamycin to the regimen for the cover and we will follow up. 5.Deconditioning. Continue PT/OT. WENDY/LAUREL Voice ID: [id number] Report ID: [id number]
[2020-02-27] MEDS ORDERED: GENTAMICIN 80 MG/100 ML BAG 80 MG/100 ML BAG IV SCH (11:00)
[2020-02-27 11:12] VITALS: O2SAT 98
--- NOTE | 2020-02-27 12:16 | P.DS ---
Admission Date: 02/25/20 Discharge Date: 02/27/20 Disposition: DC HOME/HOME HEALTH CARE Discharge Condition: FAIR Reason for Admission: Acute kidney injury - Problems (1) Chronic pain syndrome Current Visit: Yes Status: Acute (2) Shoulder injury Current Visit: Yes Status: Acute (3) UTI (urinary tract infection) Current Visit: Yes Status: Acute (4) Acute renal failure Current Visit: No Status: Acute Hospital Course: Patient with a history of hypertension, recent left clavicular fracture with left humeral fracture s/p recently discharged from SNF presented to the hospital because of weakness. On admission she was noted with poor p.o. intake , acute renal failure with a EGFR down to 20 mls/ min. She was started on gentle IV fluid hydration and now creatinine has been improving. She continued to complain of pain over the left shoulder. Imaging study shows persistent left clavicular as well as a humeral fracture. Orthopedics evaluation was obtained and he agreed with previous evaluation by her outpatient ortho for no surgery at this time . Patient started to improve after adequate pain control. She started able able to transfer with minimal assist and ambulate well. Urine culture grew Morganella species as well as Enterobacter. She will be started on Levaquin and doxycycline. She will be discharged home today with home PT and to follow up with her PCP as well as orthopedic surgeon in 1 week. Vital Signs/Physical Exam: Temp Pulse Resp BP Pulse Ox 97 F 60 18 122/59 L 99 02/27/20 08:00 02/27/20 08:00 02/27/20 08:00 02/27/20 08:00 02/27/20 08:00 General: Alert, In no apparent distress, Oriented x3 HEENT: Atraumatic, Normocephalic, PERRLA Neck: Supple, 2+ carotid pulse no bruit Respiratory: Clear to auscultation bilaterally, Normal air movement Cardiovascular: Normal pulses, Regular rate/rhythm, Normal S1 S2 Gastrointestinal: Normal bowel sounds, Soft and benign, Non-distended Musculoskeletal: Tenderness, Other (left shoulder ) Integumentary: No rashes, No breakdown Neurological: Normal speech, Normal strength at 5/5 x4 extr, Normal tone External genitalia: No edema, No lesions Laboratory Data at Discharge: WBC 4.8 K/uL (4.3-10.9) D 02/25/20 06:19 Hgb 10.2 g/dL (12.0-15.0) L 02/25/20 06:19 Hct 31.3 % (36.0-45.0) L 02/25/20 06:19 Plt Count 148 K/uL (152-406) L 02/25/20 06:19 PT 11.0 SECONDS (9.5-12.5) 02/24/20 21:00 INR 0.93 02/24/20 21:00 Sodium 145 mmol/L (136-145) 02/27/20 03:34 Potassium 4.5 mmol/L (3.5-5.1) 02/27/20 03:34 BUN 11 mg/dL (7-18) 02/27/20 03:34 Creatinine 0.92 mg/dL (0.55-1.3) 02/27/20 03:34 Glucose 90 mg/dL (74-106) 02/27/20 03:34 Phosphorus 2.3 mg/dL (2.5-4.9) L 02/27/20 03:34 Magnesium Cancelled 02/27/20 07:45 Total Bilirubin 0.2 mg/dL (0.2-1.0) 02/25/20 06:19 AST 15 U/L (15-37) 02/25/20 06:19 ALT 10 U/L (12-78) L 02/25/20 06:19 Alkaline Phosphatase 102 U/L (45-117) 02/25/20 06:19 Home Medications: Aspirin [Aspirin EC 81 MG] 81 mg PO DAILY 02/06/20 Levothyroxine [Synthroid*] 88 mcg PO DAILY 02/06/20 Omeprazole [Prilosec] 40 mg PO DAILY 02/06/20 Simvastatin 20 mg PO DAILY 02/06/20 Tamsulosin [Flomax*] 0.4 mg PO DAILY 02/06/20 Uribel 1 tab PO DAILY 02/06/20 clonazePAM [Clonazepam] 1 mg PO BEDTIME 02/06/20 Albuterol Sulfate [Proair Respiclick] 90 mcg IH PRN 02/25/20 Carboxymethylcellulose Sodium [Artificial Tears] 1 drop OP BID 02/25/20 Cranberry 1,000 mg PO DAILY 02/25/20 Estrogens,Conj Cream [Premarin 0.625MG/Gm*] 1 appl VAG M,W,F 04/27/20 Meclizine HCl 25 mg PO PRN 02/25/20 Mirabegron [Myrbetriq] 50 mg PO DAILY 02/25/20 Oxycodone HCl/Acetaminophen [Oxycodon-Acetaminophen 7.5-325] 1 each PO QIDP PRN 02/25/20 Phenazopyridine HCl [Azo Urinary Pain Relief] 97.5 mg PO TIDP PRN 02/25/20 Doxycycline Hyclate 100 mg PO BID #10 tablet 02/27/20 Levofloxacin [Levaquin] 250 mg PO DAILY #5 tablet 02/27/20 Lidocaine 4% Patch [Lidoderm 5% Patch*] 1 patch TOP DAILY #5 patch 02/27/20 New Medications: Doxycycline Hyclate 100 mg PO BID #10 tablet Levofloxacin [Levaquin] 250 mg PO DAILY #5 tablet Lidocaine 4% Patch [Lidoderm 5% Patch*] 1 patch TOP DAILY #5 patch Patient Discharge Instructions: Follow with your Orthopedics surgeron -Dr Tran. follow with your PCP in 5-7 days Diet: Low sodium Activity: Ad rocio Time spent managing pt's care (in minutes): 35
[2020-02-27] MEDS ORDERED: PHENAZOPYRIDINE 100MG TAB PO ONE (12:21)
[2020-02-27 13:00] VITALS: BP 137/67; TEMP 97.9
== END 2020-02-27 14:20 | disposition home or self-care (01) | DRG 683 ==
LOC: ER 20:08 → ERHOLD 02-25 00:02 → 2ND 02-25 00:34
PROVIDERS: ADMIT Hospitalist; ATTEND Internal Medicine
DX: N17.0 Acute kidney failure with tubular necrosis (principal); N39.0 Urinary tract infection, site not specified; Z16.24 Resistance to multiple antibiotics; S42.002K Fracture of unspecified part of left clavicle, subsequent encounter for fracture with nonunion; G89.4 Chronic pain syndrome; S49.92XA Unspecified injury of left shoulder and upper arm, initial encounter; B96.89 Other specified bacterial agents as the cause of diseases classified elsewhere; Z79.82 Long term (current) use of aspirin; Z79.890 Hormone replacement therapy; Z79.899 Other long term (current) drug therapy; E87.6 Hypokalemia; E83.42 Hypomagnesemia; B95.2 Enterococcus as the cause of diseases classified elsewhere; S42.202D Unspecified fracture of upper end of left humerus, subsequent encounter for fracture with routine healing; N18.3 Chronic kidney disease, stage 3 (moderate); I12.9 Hypertensive chronic kidney disease with stage 1 through stage 4 chronic kidney disease, or unspecified chronic kidney disease; E03.9 Hypothyroidism, unspecified; Z90.710 Acquired absence of both cervix and uterus; Z90.49 Acquired absence of other specified parts of digestive tract; Z98.84 Bariatric surgery status; Z96.612 Presence of left artificial shoulder joint; Z96.611 Presence of right artificial shoulder joint; E86.9 Volume depletion, unspecified; Z88.8 Allergy status to other drugs, medicaments and biological substances; Z87.891 Personal history of nicotine dependence; E78.5 Hyperlipidemia, unspecified
CPT/HCPCS: 36415; 71045; 76770; 80048; 80053; 80069; 80076; 81003; 81015; 82570; 83605; 83735; 83880; 84156; 84484; 85025; 85610; 87077; 87086; 87088; 87186; 93005; 96361; 96365; 97116; 97161; 97530; 99285; J0696; J1580; J3475; J7030

== ENCOUNTER 2020-03-01 18:35 | Emergency (ER) | payer OTHER, BC ==
[2020-03-01] MEDS ORDERED: NA CHLORIDE 0.9% 500 ML ONE (20:10)
--- NOTE | 2020-03-01 20:34 | RAD REPORT ---
EXAM DESCRIPTION: RAD - Shoulder Left 2 View - 03/01/2020 8:24 pm CLINICAL HISTORY: Left shoulder pain FINDINGS: Subacute humeral head fracture without significant change in appearance from December. An old fracture involves the distal left clavicle. Osteoporosis
[2020-03-01 21:23] LABS: Urine Blood TRACE (NEG); Urine Glucose NEGATIVE (NEG); Urine Protein 1+ (NEG); Urine pH 5.5 (5.0-7.0)
[2020-03-01] MEDS ORDERED: levoFLOXacin 250 MG TAB ONE (21:31)
[2020-03-01 21:38] LABS: Absolute Lymphocytes (CBC) 0.7 K/uL (0.7-4.9); Basophils % 1.9 % (0-1.3); Hematocrit 28.9 % (36.0-45.0); Lymphocytes % 16.9 % (15.3-44.8); MPV 8.5 fL (7.6-11.3); RBC Red Blood Cell Count 3.07 M/uL (3.86-4.86)
[2020-03-01 21:42] LABS: Albumin 2.9 g/dL (3.4-5.0); Bilirubin Total 0.2 mg/dL (0.2-1.0); Potassium 4.2 mmol/L (3.5-5.1); Protein, Total 5.6 g/dL (6.4-8.2)
--- NOTE | 2020-03-01 22:01 | ER ---
Nurse's Notes [facility] Name: Tina Padron Age: 74 yrs Sex: Female : 1945 Arrival Date: 03/01/2020 Time: 18:38 Bed 7 Private MD: Diagnosis: Urinary tract infection, site not specified;Pain in left shoulder-subacute humeral head fracture;Anemia, unspecified Presentation: 03/01 18:43 Chief complaint: Patient states: "this week I got very sick, I was throwing up, I was iw nauseous, and couldn't sit up and I stayed in the hospital and it hasn't gone away" also has burning with urination X 2 weeks. Coronavirus screen: Proceed with normal triage. Patient denies a cough. Patient denies shortness of breath or difficulty breathing. Ebola Screen: Patient negative for fever greater than or equal to 101.5 degrees Fahrenheit, and additional compatible Ebola Virus Disease symptoms Patient denies exposure to infectious person. Patient denies travel to an Ebola-affected area in the 21 days before illness onset. No symptoms or risks identified at this time. Initial Sepsis Screen: Does the patient meet any 2 criteria? No. Patient's initial sepsis screen is negative. Does the patient have a suspected source of infection?. Risk Assessment: Do you want to hurt yourself or someone else? Patient reports no desire to harm self or others. Onset of symptoms was February 23, 2020. 18:43 Method Of Arrival: Wheelchair iw 18:43 Acuity: TYLOR 3 iw Historical: - Allergies: 18:48 Compazine; iw - Home Meds: 18:48 aspirin 81 mg Oral TbEC 1 tab once daily [Active]; Azo-Standard Oral as needed iw [Active]; Flomax 0.4 mg Oral cp24 1 cap once daily [Active]; clonazepam 1 mg Oral tab 1 tab nightly [Active]; losartan 50 mg Oral tab 1 tab 2 times per day [Active]; meclizine 25 mg Oral tab 1 tab as needed [Active]; omeprazole 40 mg Oral cpDR 1 cap once daily [Active]; oxycodone-acetaminophen 7.5-325 mg Oral tab 1 tab every 6 hours [Active]; pantoprazole 20 mg Oral TbEC 1 tab once daily [Active]; potassium chloride 20 mEq Oral TbTQ 1 tab 2 times per day [Active]; simvastatin 20 mg Oral tab 1 tab once daily [Active]; Synthroid 88 mcg Oral tab 1 tab once daily [Active]; Uribel 118-10-40.8-36 mg Oral tab daily [Active]; - PMHx: 18:48 "shattered shoulder"; Anxiety; chronic uti; Hyperlipidemia; Hypertension; iw Hypothyroidism; spinal fractures; - PSHx: 18:48 back; iw - Social history:: Smoking status: . - Family history:: not pertinent. Screenin:21 Abuse screen: Denies threats or abuse. Denies injuries from another. Nutritional ls4 screening: No deficits noted. Tuberculosis screening: No symptoms or risk factors identified. Fall Risk None identified. Assessment: 19:10 General: Appears in no apparent distress. comfortable, Behavior is calm, cooperative. ls4 Pain: Complains of pain in suprapubic area Pain currently is 5 out of 10 on a pain scale. 19:10 Cardiovascular: No deficits noted. Respiratory: No deficits noted. GI: No deficits ls4 noted. No signs and/or symptoms were reported involving the gastrointestinal system. : No deficits noted. No signs and/or symptoms were reported regarding the genitourinary system. Derm: No deficits noted. No signs and/or symptoms reported regarding the dermatologic system. Musculoskeletal: No deficits noted. No signs and/or symptoms reported regarding the musculoskeletal system. Vital Signs: 18:43 BP 104 / 59; Pulse 56; Resp 16; Temp 97.7; Pulse Ox 99% on R/A; Weight 61.69 kg; Height iw 5 ft. 5 in. (165.10 cm); Pain 8/10; 18:43 Body Mass Index 22.63 (61.69 kg, 165.10 cm) iw ED Course: 18:38 Patient arrived in ED. as 18:47 Triage completed. iw 18:48 Arm band placed on. iw 19:07 Mateo Fox MD is Attending Physician. [facility] 19:16 Dorothy Marie, ALICDES is Primary Nurse. ls4 20:24 Shoulder Left (2 View) XRAY In Process Unspecified. EDMS 21:18 No provider procedures requiring assistance completed. Initial lab(s) drawn, by ny, ls4 sent to lab. Inserted saline lock: 20 gauge 24 gauge in left hand, using aseptic technique. Blood collected. Oxygen administration via nasal cannula. 21:21 Patient has correct armband on for positive identification. Bed in low position. Call ls4 light in reach. Side rails up X 1. monitor tech on. Pulse ox on. NIBP on. Warm blanket given. Pillow given. Verbal reassurance given. 22:00 Addy Boyd MD is Referral Physician. alec Administered Medications: 20:20 Drug: NS 0.9% 500 ml Route: IV; Rate: bolus; Site: left hand; ls4 21:31 Drug: LevOfloxacin 250 mg Route: PO; ls4 Outcome: 22:00 Discharge ordered by . alec 22:25 Patient left the ED. ls4 Signatures: Dispatcher [employer] EDMateo Morrison MD MD cha Martinez, Amelia as Williams, Irene, Dorothy Lopez RN, RN RN ls4
--- NOTE | 2020-03-01 22:01 | EDPHYS ---
Physician Documentation [facility] Name: Tina Padron Age: 74 yrs Sex: Female : 1945 Arrival Date: 03/01/2020 Time: 18:38 Bed 7 Private MD: BARNEY Physician Mateo Fox HPI: 03/01 19:58 This 74 yrs old Female presents to ER via Wheelchair with complaints of alec Vaginal Pain, Urinary Problem, Arm Pain. 19:58 The patient presents with urinary symptoms, dysuria, frequency, hesitancy, urgency. alec Onset: The symptoms/episode began/occurred 3 day(s) ago. Modifying factors: The symptoms are alleviated by nothing, the symptoms are aggravated by nothing. Associated signs and symptoms: The patient has no apparent associated signs or symptoms. Severity of symptoms: At their worst the symptoms were mild, moderate, in the emergency department the symptoms are unchanged. The patient is not sexually active. The patient has experienced similar episodes in the past, multiple times. Historical: - Allergies: 18:48 Compazine; iw - Home Meds: 18:48 aspirin 81 mg Oral TbEC 1 tab once daily [Active]; Azo-Standard Oral as needed iw [Active]; Flomax 0.4 mg Oral cp24 1 cap once daily [Active]; clonazepam 1 mg Oral tab 1 tab nightly [Active]; losartan 50 mg Oral tab 1 tab 2 times per day [Active]; meclizine 25 mg Oral tab 1 tab as needed [Active]; omeprazole 40 mg Oral cpDR 1 cap once daily [Active]; oxycodone-acetaminophen 7.5-325 mg Oral tab 1 tab every 6 hours [Active]; pantoprazole 20 mg Oral TbEC 1 tab once daily [Active]; potassium chloride 20 mEq Oral TbTQ 1 tab 2 times per day [Active]; simvastatin 20 mg Oral tab 1 tab once daily [Active]; Synthroid 88 mcg Oral tab 1 tab once daily [Active]; Uribel 118-10-40.8-36 mg Oral tab daily [Active]; - PMHx: 18:48 "shattered shoulder"; Anxiety; chronic uti; Hyperlipidemia; Hypertension; iw Hypothyroidism; spinal fractures; - PSHx: 18:48 back; iw - Social history:: Smoking status: . - Family history:: not pertinent. ROS: 19:58 Constitutional: Negative for fever, chills, and weight loss, Eyes: Negative for injury, alec pain, redness, and discharge, ENT: Negative for injury, pain, and discharge, Neck: Negative for injury, pain, and swelling, Cardiovascular: Negative for chest pain, palpitations, and edema, Respiratory: Negative for shortness of breath, cough, wheezing, and pleuritic chest pain, Abdomen/GI: Negative for abdominal pain, nausea, vomiting, diarrhea, and constipation, Back: Negative for injury and pain, MS/Extremity: Negative for injury and deformity, Skin: Negative for injury, rash, and discoloration, Neuro: Negative for headache, weakness, numbness, tingling, and seizure, Psych: Negative for depression, anxiety, suicide ideation, homicidal ideation, and hallucinations, Allergy/Immunology: Negative for hives, rash, and allergies, Endocrine: Negative for neck swelling, polydipsia, polyuria, polyphagia, and marked weight changes, Hematologic/Lymphatic: Negative for swollen nodes, abnormal bleeding, and unusual bruising. 19:58 : Positive for urinary frequency, small amounts, burning with urination, difficulty urinating. 19:58 MS/extremity: Positive for decreased range of motion, pain, of the anterior aspect of left shoulder and posterior aspect of left shoulder. Exam: 19:58 Constitutional: This is a well developed, well nourished patient who is awake, alert, alec and in no acute distress. Head/Face: Normocephalic, atraumatic. Eyes: Pupils equal round and reactive to light, extra-ocular motions intact. Lids and lashes normal. Conjunctiva and sclera are non-icteric and not injected. Cornea within normal limits. Periorbital areas with no swelling, redness, or edema. ENT: Nares patent. No nasal discharge, no septal abnormalities noted. Tympanic membranes are normal and external auditory canals are clear. Oropharynx with no redness, swelling, or masses, exudates, or evidence of obstruction, uvula midline. Mucous membranes moist. Neck: Trachea midline, no thyromegaly or masses palpated, and no cervical lymphadenopathy. Supple, full range of motion without nuchal rigidity, or vertebral point tenderness. No Meningismus. Chest/axilla: Normal chest wall appearance and motion. Nontender with no deformity. No lesions are appreciated. Cardiovascular: Regular rate and rhythm with a normal S1 and S2. No gallops, murmurs, or rubs. Normal PMI, no JVD. No pulse deficits. Respiratory: Lungs have equal breath sounds bilaterally, clear to auscultation and percussion. No rales, rhonchi or wheezes noted. No increased work of breathing, no retractions or nasal flaring. Abdomen/GI: Soft, non-tender, with normal bowel sounds. No distension or tympany. No guarding or rebound. No evidence of tenderness throughout. Back: No spinal tenderness. No costovertebral tenderness. Full range of motion. Female : Normal external genitalia. Skin: Warm, dry with normal turgor. Normal color with no rashes, no lesions, and no evidence of cellulitis. Neuro: Awake and alert, GCS 15, oriented to person, place, time, and situation. Cranial nerves II-XII grossly intact. Motor strength 5/5 in all extremities. Sensory grossly intact. Cerebellar exam normal. Normal gait. Psych: Awake, alert, with orientation to person, place and time. Behavior, mood, and affect are within normal limits. 19:58 Musculoskeletal/extremity: ROM: limited active range of motion due to pain, limited passive range of motion due to pain, Circulation is intact in all extremities. Sensation intact. Compartment Syndrome exam of affected extremity: is normal. Joints: the left shoulder displays limited range of motion, pain at rest, painful range of motion. Vital Signs: 18:43 BP 104 / 59; Pulse 56; Resp 16; Temp 97.7; Pulse Ox 99% on R/A; Weight 61.69 kg; Height iw 5 ft. 5 in. (165.10 cm); Pain 8/10; 18:43 Body Mass Index 22.63 (61.69 kg, 165.10 cm) iw MDM: 19:07 Patient medically screened. alec 20:02 Differential diagnosis: diane infection, nonspecific abdominal pain, urinary tract alec infection. Data reviewed: vital signs, nurses notes, lab test result(s), radiologic studies, plain films. Data interpreted: laboratory monitor: not applicable for this patient encounter. Pulse oximetry: on room air is 99 %. Test interpretation: by ED physician or midlevel provider: plain radiologic studies. Counseling: I had a detailed discussion with the patient and/or guardian regarding: the historical points, exam findings, and any diagnostic results supporting the discharge/admit diagnosis, lab results, radiology results, the need for outpatient follow up, for definitive care. 22:02 ED course: reviewed all labs, dw pt findings, explained treatment and follow up plan, [facility] pt agrees and understands. 03/01 19:58 Order name: CBC with Diff [facility] 03/01 19:58 Order name: Comprehensive Metabolic Panel; Complete Time: 22:00 [facility] 03/01 19:58 Order name: Urine Culture [facility] 03/01 19:58 Order name: Shoulder Left (2 View) XRAY; Complete Time: 21:01 [facility] 03/01 21:03 Order name: Urine Dipstick--Ancillary (enter results); Complete Time: 21:52 ma 03/01 19:58 Order name: Urine Dipstick-Ancillary (obtain specimen); Complete Time: 21:06 [facility] 03/01 22:03 Order name: Sling [facility] Administered Medications: 20:20 Drug: NS 0.9% 500 ml Route: IV; Rate: bolus; Site: left hand; ls4 21:31 Drug: LevOfloxacin 250 mg Route: PO; ls4 Disposition: 03/01/20 22:00 Discharged to Home. Impression: Urinary tract infection, site not specified, Pain in left shoulder - subacute humeral head fracture, Anemia, unspecified. - Condition is Stable. - Discharge Instructions: Anemia, Nonspecific, Joint Pain, Arthritis, Shoulder Pain, Urinary Tract Infection, Adult, Shoulder Pain, [id number], Urinary Tract Infection, Adult, [id number], Arthritis, [id number]. - Prescriptions for Levaquin 250 mg Oral Tablet - take 1 tablet by ORAL route once daily for 6 days; 6 tablet. Pyridium 200 mg Oral Tablet - take 1 tablet by ORAL route every 8 hours for 3 days; 9 tablet. Bentyl 20 mg Oral Tablet - take 1 tablet by ORAL route every 6 hours As needed; 20 tablet. Miralax 17 gram/dose Oral - take 1 packet by ORAL route once daily dilute powder in 8 ounces of water or juice; 14 packet. - Medication Reconciliation Form, Thank You Letter, Antibiotic Education, Prescription Opioid Use form. - Follow up: Private Physician; When: 2 - 3 days; Reason: Recheck today's complaints, Continuance of care, Re-evaluation by your physician. Follow up: Addy Boyd; When: 2 - 3 days; Reason: Recheck today's complaints, Continuance of care, Re-evaluation by your physician. - Problem is new. - Symptoms have improved. Signatures: Dispatcher [employer] EDMateo Morrison MD MD cha Williams, Irene, RN RN Dorothy Ortega RN RN ls4 Corrections: (The following items were deleted from the chart) 22:25 22:00 03/01/2020 22:00 Discharged to Home. Impression: Urinary tract infection, site ls4 not specified; Pain in left shoulder - subacute humeral head fracture; Anemia, unspecified. Condition is Stable. Discharge Instructions: Joint Pain, Arthritis, Shoulder Pain, Urinary Tract Infection, Adult, Shoulder Pain, [id number], Urinary Tract Infection, Adult, [id number], Arthritis, [id number]. Prescriptions for Levaquin 250 mg Oral Tablet - take 1 tablet by ORAL route once daily for 6 days; 6 tablet, Pyridium 200 mg Oral Tablet - take 1 tablet by ORAL route every 8 hours for 3 days; 9 tablet. and Forms are Medication Reconciliation Form, Thank You Letter, Antibiotic Education, Prescription Opioid Use. Follow up: Private Physician; When: 2 - 3 days; Reason: Recheck today's complaints, Continuance of care, Re-evaluation by your physician. Follow up: Addy Boyd; When: 2 - 3 days; Reason: Recheck today's complaints, Continuance of care, Re-evaluation by your physician. Problem is new. Symptoms have improved. alec
[2020-03-01 22:30] LABS: Blood Morphology Comment NOT SEEN (NOT SEEN); Platelet Estimate ADEQ
[2020-03-01 22:37] VITALS: BP 104/59; TEMP 97.7; O2SAT 99
== END 2020-03-01 22:25 | disposition home or self-care (01) ==
LOC: ER 18:35
DX: N39.0 Urinary tract infection, site not specified (principal); S42.292A Other displaced fracture of upper end of left humerus, initial encounter for closed fracture; D64.9 Anemia, unspecified; I10 Essential (primary) hypertension; F41.9 Anxiety disorder, unspecified; E03.9 Hypothyroidism, unspecified; Z79.82 Long term (current) use of aspirin; Z88.8 Allergy status to other drugs, medicaments and biological substances
CPT/HCPCS: 87088; 85025; 87086; 36415; 81003; 80053; 73030; 99285; J7040

== ENCOUNTER 2020-03-22 13:18 | Emergency (ER) | payer OTHER, BC ==
--- OUTSIDE RECORDS SUMMARY | 2020-03-22 13:22 | XMS REPORT | Clinical Summary ---
:1945 Author Organization [facility] Address [address] [place] [address] Care Team Providers Name Role Phone Vivek Solorzano MD Primary Care Provider [phone] Allergies Active Allergy Reactions Severity Noted Date Comments Cefuroxime Other (See Comments) 12/28/2018 "shaky legs, and metal taste in the mo uth" Patient has mary erated cefdinir and ce fepime in the past Prochlorperazine 03/20/2018 Medications Medication Sig Dispensed Refills Start End Status Date Date simvastatin (ZOCOR) 20 Take 20 mg by 0 Active MG tablet mouth nightly. aspirin (ECOTRIN) 81 Take 81 mg by 0 Active MG enteric coated mouth daily. tablet omeprazole (PriLOSEC) Take 40 mg by 0 Active 40 MG capsule mouth daily. potassium chloride Take 20 mEq by 0 Active (K-DUR,KLOR-CON) 10 mouth 2 (two) MEQ CR tablet times a day. albuterol (PROAIR Inhale 2 puffs 0 Active HFA,PROVENTIL every 6 (six) HFA,VENTOLIN HFA) 90 hours as needed mcg/actuation inhaler for wheezing. levothyroxine Take 88 mcg by 0 A ctive (SYNTHROID) 88 mcg mouth daily. tablet methen-m.blue-s.phos-p Take 1 capsule 0 Active hsal-hyo (URIBEL) by mouth daily. 118-10-40.8-36 mg capsule mirabegron (MYRBETIQ) Take 50 mg by 0 Active 50 mg tablet extended mouth daily. release 24 hr meclizine (ANTIVERT) Take 25 mg by 0 Active 25 mg tablet mouth 3 (three) times a day as needed for dizziness. pantoprazole Take 20 mg by 0 Act luis carlos (PROTONIX) 20 MG EC mouth daily. tablet melatonin 10 mg Take 20 mg by 0 Active capsule mouth nightly as needed. miconazole (MICOTIN) 2 Apply 1 0 Active % cream application topically nightly as needed. nystatin (MYCOSTATIN) Apply topically 0 Active 100,000 unit/gram 2 (two) times a cream day. lanolin/mineral Apply 1 drop to 0 Active oil/petrolatum eye 3 (three) (ARTIFICIAL TEARS times a day. OPHT) Patient says medication is "Real Tears" over the counter administered 1 drop both eyes 2-3 times daily. tamsulosin (FLOMAX) Take 0.4 mg by 0 Active 0.4 mg capsule mouth daily. clonAZEPAM (KlonoPIN) Take 1 mg by 0 Active 1 MG tablet mouth nightly. oxyCODone-acetaminophe Take 1 tablet 0 Active n (PERCOCET) 7.5-325 by mouth every mg per 6 (six) hours tabletIndications: as needed for acute pain moderate pain .acute pain. lidocaine 3 % cream Apply topically 0 Active as needed. ALPRAZolam (XANAX) 2 Take 2 mg by 0 04/16/ Discontinued MG tablet mouth nightly. 2018 (Stop Taking at [facility]) levothyroxine Take 88 mcg by 0 10/13/ D iscontinued (SYNTHROID, LEVOXYL) mouth daily. 2018 100 mcg tablet oxyCODone-acetaminophe Take 1 tablet 0 / Discontinued n (PERCOCET) 7.5-325 by mouth every 2020 (Reorder) mg per tablet 6 (six) hours as needed. losartan (COZAAR) 50 Take 50 mg by 0 12/04 / Discontinued MG tablet mouth daily. 2019 (Stop T aking Hold for BP at [facility]) less than 110 and Hr less than 60 hydroCHLOROthiazide Take 25 mg by 0 10/13/ Discontinued (HYDRODIURIL) 12.5 MG mouth daily. 2019 tablet omeprazole (PriLOSEC) Take 40 mg by 0 03/31 7/ Discontinued 40 MG capsule mouth daily. 2018 (St op Taking at [facility]) potassium chloride Take 10 mEq by 0 04/16/ Discontinued (K-DUR,KLOR-CON) 10 mouth daily. 2018 (Stop Taking MEQ CR tablet at [facility]) metoprolol tartrate Take 25 mg by 0 04/09/ Discontinued (LOPRESSOR) 25 mg mouth 2 (two) 2018 tablet times a day. mirabegron 25 mg Take by mouth 0 05/26/ Discontinued tablet extended daily. 2018 (Pat ient release 24 hr Report ed) methenam/sod Take by mouth 4 0 07/03/ D iscontinued phos/mblue/hyoscy (four) times a 2018 (Stop Taking (UROGESIC-BLUE ORAL) day. at Discharge) meclizine (ANTIVERT) Take 25 mg by 0 05/16 / Discontinued 25 mg tablet mouth 3 (three) 2018 ( Stop Taking times a day as at [facility]) needed for dizziness. conjugated estrogens Insert 0.5 g 0 12/04/ Discontinued (PREMARIN) 0.625 into the vagina 2019 (Stop Taking mg/gram vaginal cream 3 (three) times at Discharge) a week. On Tue. Tue. tuesday clonAZEPAM (KlonoPIN) Take 1 mg by 0 04/16 / Discontinued 1 MG tablet mouth 2 (two) 2018 (Sto p Taking times a day as at [facility]) needed (sleep). fosfomycin (MONUROL) 3 Take 3 g by 3 g 1 04/13/2004/13 / gram packet mouth once for 2018 1 dose. metroNIDAZOLE in 0.9% Infuse 100 mL 4200 mL 0 04/16/20 07/ 1/ sodium chloride (500 mg total) 2018 (FLAGYL) 500 mg/100 mL into a venous IVPB catheter every 8 (eight) hours for 14 days. meropenem 500 mg in Infuse 500 mg 42 each 0 04/16/2004/30/ sodium chloride 0.9 % into a venous 2018 MBP 50 mL IVPB catheter every 8 (eight) hours for 14 days. gabapentin (NEURONTIN) Take 2 capsules 180 capsule 0 04/16/2005/16/ 100 mg capsule (200 mg total) 2018 by mouth 3 (three) times a day for 30 days. potassium chloride Take 1 tablet 30 tablet 0 04/17/2005/16/ Discontinued (K-DUR) 20 MEQ CR (20 mEq total) 2018 (Stop Taking tablet by mouth daily at [facility]) for 30 days. pantoprazole Take 1 tablet 30 tablet 0 04/17/2005/16/ Dis continued (PROTONIX) 40 MG EC (40 mg total) 2018 (Stop Taking tablet by mouth daily at [facility]) for 30 days. vancomycin (VANCOCIN) Take 1 capsule 42 capsule 0 04/16/20/ 125 MG capsule (125 mg total) 2018 by mouth 3 (three) times a day with meals for 14 days. oxyCODone-acetaminophe Take 1 tablet 0 / Discontinued n (PERCOCET) 7.5-325 by mouth every 2018 (Stop Taking mg per tablet 4 (four) hours a t Discharge) as needed for moderate pain. ALPRAZolam (XANAX) 1 Take 1 mg by 0 05/26/ Discontinued MG tablet mouth nightly 2018 (Patie nt as needed for Report ed) anxiety. cefdinir (OMNICEF) 300 Take 1 capsule 14 capsule 0 05/16/20 0 05/23/ MG capsule (300 mg total) 2018 by mouth 2 (two) times a day for 7 days. gabapentin (NEURONTIN) Take 200 mg by 0 / Discontinued 100 mg capsule mouth 3 (three) 2019 times a day. meclizine (ANTIVERT) Take 25 mg by 0 10/13 / Discontinued 25 mg tablet mouth 3 (three) 2019 times a day as needed for dizziness. ergocalciferol Take 50,000 0 10/13/ Dis continued (VITAMIN D2) 50,000 Units by mouth 2019 unit capsule once a week. On mondays clonAZEPAM (KlonoPIN) Take 1 mg by 0 05/30 / Discontinued 1 MG tablet mouth nightly 2018 (Reo rder) as needed for anxiety (for sleep). solifenacin (VESICARE) Take 5 mg by 0 05/02 1/ Discontinued 5 MG tablet mouth daily. 2018 ([facility] docusate sodium Take 100 mg by 0 10/13/ Discontinued (COLACE) 100 MG mouth daily as 2019 capsule needed for constipation. fluconazole (DIFLUCAN) Take 1 tablet 1 tablet 0 05/31/20/ 100 MG tablet (100 mg total) 2018 by mouth daily for 1 day. levoFLOXacin Take 1 tablet 10 tablet 0 05/30/ Exp ired (LEVAQUIN) 500 MG (500 mg total) 2018 tablet by mouth daily for 10 days. clonAZEPAM (KlonoPIN) Take 1 tablet 30 tablet 0 05/30/20 07/3 1/ Discontinued 1 MG tablet (1 mg total) by 2018 (Lupe gaspar) mouth nightly as needed for anxiety (for sleep) for up to 30 days. clonAZEPAM (KlonoPIN) Take 1 tablet 30 tablet 0 05/30/20 09/0 3/ Discontinued 1 MG tablet (1 mg total) by 2018 mouth nightly as needed for anxiety (for sleep) for up to 30 days. fluconazole (DIFLUCAN) Take 1 tablet 10 tablet 0 06/10/20/ 100 MG tablet (100 mg total) 2018 by mouth daily for 10 days. lidocaine 3 % cream Apply topically 0 3/ Discontinued as needed. 2019 (Stop Warren ing at [facility]) cefdinir (OMNICEF) 300 Take 1 capsule 14 capsule 0 06/26/20 0 07/03/ Discontinued MG capsule (300 mg total) 2018 (Sto p [facility] (two) times a day for 7 days. clonAZEPAM (KlonoPIN) Take 1 tablet 30 tablet 0 07/03/20 3/ 1 MG tablet (1 mg total) by 2018 mouth nightly as needed for anxiety (for sleep) for up to 30 days. levoFLOXacin Take 1 tablet 7 tablet 0 07/03/2007/10/ Exp ired (LEVAQUIN) 500 MG (500 mg total) 2018 tablet by mouth daily for 7 days. amoxicillin-pot Take 1 tablet 14 tablet 0 07/13/2007/20/ clavulanate by mouth 2 2018 (AUGMENTIN) 875-125 mg (two) times a per tablet day for 7 days. ondansetron ODT Take 1 tablet 10 tablet 0 07/13/2007/20/ (ZOFRAN ODT) 4 MG (4 mg total) by 2018 disintegrating tablet mouth every 8 (eight) hours as needed for nausea or vomiting for up to 7 days. acetaminophen-codeine Take 1-2 15 tablet 0 08/19/2008/19/ Discontinued (TYLENOL WITH CODEINE tablets by 2018 (Dose #3) 300-30 mg per mouth every 6 adjustment) tabletIndications: (six) hours as acute pain needed for severe pain for up to 15 doses .Acute Pain. ondansetron ODT Take 1 tablet 10 tablet 0 08/19/2010/13/ Discontinued (ZOFRAN ODT) 4 MG (4 mg total) by 2018 disintegrating tablet mouth every 8 (eight) hours as needed for nausea for up to 10 doses. cephalexin (KEFLEX) Take 1 capsule 14 capsule 0 08/21/20 10 9/ 500 MG capsule (500 mg total) 2018 by mouth 2 (two) times a day for 7 days. nitrofurantoin Take 50 mg by 0 11/01/ D iscontinued (MACRODANTIN) 50 MG mouth daily. 2019 (Stop Taking capsule at [facility]) phenazopyridine (AZO Take 1 tablet 0 11/01 / Discontinued URINARY PAIN RELIEF) by mouth every 2019 (Stop Taking 97.5 mg tablet 3 (three) hours at Discharge) as needed. clonAZEPAM (KlonoPIN) Take 1 mg by 0 11/01 / Discontinued 1 MG tablet mouth nightly 2019 (Reo rder) as needed for anxiety or seizures. cranberry fruit Take 1 tablet 0 11/01/ Discontinued extract (CRANBERRY by mouth daily. 2019 (Stop Taking ORAL) at [facility]) lidocaine 3 % cream Apply 1 Dose 0 11/01/ Discontinued topically as 2019 (Stop T aking needed. at [facility]) ciprofloxacin (CIPRO) Take 1 tablet 10 tablet 0 10/19/2010/01 5/ 500 MG tablet (500 mg total) 2018 by mouth 2 (two) times a day for 5 days. vancomycin (FIRVANQ) Take 2.5 mL 140 mL 0 10/19/2011/01/ Discontinued 50 mg/mL recon soln (125 mg total) 2019 (Reorder) oral solution by mouth every 6 (six) hours for 14 days. lidocaine (LIDODERM) 5 Place 1 patch 30 patch 0 11/02/19/ Discontinued % on the skin 2019 (Stop Ta franklyn daily for 30 at [facility]) days. Remove & Discard patch within 12 hours or as directed by NIFEdipine XL Take 1 tablet 30 tablet 0 11/02/1912/04/ Di scontinued (PROCARDIA XL) 30 MG (30 mg total) 2019 24 hr tablet by mouth daily for 30 days. Lactobacillus Take 1 tablet 0 11/01/1912/04/ Di scontinued acidoph-L.bulgar by mouth 3 2019 (FLORANEX) 1 million (three) times a cell tablet day for 30 days. fluconazole (DIFLUCAN) Take 1 tablet 0 11/02/19/ 200 MG tablet (200 mg total) 2019 by mouth daily for 9 days. ertapenem 1 g in Infuse 1 g into 0 11/02/1911/07/ sodium chloride 0.9 % a venous 2019 MBP 50 mL IVPB catheter daily for 5 days. vancomycin (FIRVANQ) Take 2.5 mL 140 mL 0 11/01/1911/02/ 50 mg/mL recon soln (125 mg total) 2019 oral solution by mouth every 6 (six) hours for 1 day. vancomycin (VANCOCIN) Take 2.5 mL 0 11/03/1911/10/ 125 mg/2.5 mL syringe (125 mg total) 20 202 0 by mouth 2 (two) times a day for 7 days. vancomycin (VANCOCIN) Take 2.5 mL 0 11/11/1911/22/ Discontinued 125 mg/2.5 mL syringe (125 mg total) 20 202 0 by mouth daily for 7 days. vancomycin (VANCOCIN) Take 2.5 mL 0 11/19/1912/04/ Discontinued 125 mg/2.5 mL syringe (125 mg total) 20 202 0 (Stop Taking by mouth every at Di scharge) other day for 14 days. clonAZEPAM (KlonoPIN) Take 1 tablet 0 11/01/19 1 MG tablet (1 mg total) by 2019 mouth nightly as needed for anxiety or seizures for up to 7 days. oxyCODone-acetaminophe Take 1 tablet 21 tablet 0 11/01/19/ Discontinued n (PERCOCET) 7.5-325 by mouth every 2019 (Reorder) mg per 8 (eight) hours tabletIndications: as needed for acute pain severe pain for up to 10 days .acute pain. Max Daily Amount: 3 tablets oxyCODone-acetaminophe Take 1 tablet 21 tablet 0 11/01/19/ n (PERCOCET) 7.5-325 by mouth every 20 2020 mg per 8 (eight) hours tabletIndications: as needed for acute pain severe pain for up to 10 days .acute pain. Max Daily Amount: 3 tablets HYDROcodone-acetaminop Take 1 tablet 0 / Discontinued hen (NORCO) 7.5-325 mg by mouth every (Stop Taking per tabletIndications: 4 (four) hours at Discharge) acute pain as needed for moderate pain .acute pain. vancomycin (VANCOCIN) Take 2.5 mL 17.5 mL 0 11/22/1911/29/ 125 mg/2.5 mL syringe (125 mg total) 0 by mouth daily for 7 days. sulfamethoxazole-trime Take 1 tablet 20 tablet 0 11/22/19/ Discontinued thoprim (BACTRIM DS) by mouth 2 2019 (Stop Taking 800-160 mg per tablet (two) times a at Discharge) day for 10 days. nitrofurantoin Take 50 mg by 0 12/04/ D iscontinued (MACRODANTIN) 50 MG mouth daily. Pt 2019 (Stop Taking capsule stated last at Disch arge) dose is on 2/2 phenazopyridine (AZO Take 97.5 mg by 0 / Discontinued URINARY PAIN RELIEF) mouth 3 (three) 0 (Stop Taking 97.5 mg tablet times a day as at Discharge) needed. Lactobacillus Take 1 tablet 90 tablet 0 12/04/1901/02/ Ex pired acidoph-L.bulgar by mouth 01 18 2020 (FLORANEX) 1 million (three) times a cell tablet day for 30 days. NIFEdipine XL Take 1 tablet 30 tablet 0 12/04/1901/02/ Ex pired (PROCARDIA XL) 30 MG (30 mg total) 2019 24 hr tablet by mouth daily for 30 days. conjugated estrogens Insert 0.5 g 30 g 0 12/04/1901/02/ (PREMARIN) 0.625 into the vagina 2019 mg/gram vaginal cream daily for 30 days. sulfamethoxazole-trime Take 1 tablet 12 tablet 0 12/04/19/ thoprim (BACTRIM DS) by mouth every 2019 800-160 mg per tablet 12 (twelve) hours for 12 doses. fluconazole (DIFLUCAN) Take 1 tablet 12 tablet 0 12/05/19/ 200 MG tablet (200 mg total) 2019 by mouth daily for 12 days. Active Problems Problem Noted Date UTI due to Klebsiella species 12/01/2019 Dehydration 11/23/2019 Diarrhea of infectious origin 11/19/2019 Recurrent UTI 10/28/2019 Complicated UTI (urinary tract infection) 10/15/2019 Urinary tract infection with hematuria 06/22/2019 UTI (urinary tract infection) 05/13/2019 C. difficile diarrhea 02/17/2019 Abdominal pain 01/31/2019 Acute cystitis with hematuria 01/14/2019 Urinary tract infection without hematuria 11/15/2018 Acute UTI (urinary tract infection) 08/29/2018 Toxic metabolic encephalopathy 07/20/2018 Chronic UTI 06/21/2018 HTN (hypertension) 03/28/2018 Chronic pain due to injury 03/28/2018 Confusion 03/27/2018 Acute UTI 03/20/2018 Encounters Date Type Specialty Care Team Description 12/04/2019 Patient Outreach Quality Florida Cabrera, ALCIDES 12/04/2019 Patient Outreach Quality Florida Cabrera RN 12/01/2019 - Hospital Encounter General Internal Leena Luevano [place] I due to Klebsiella species (Primary Dx); 12/04/2019 Medicine Stewart MD Acute renal failure, unspecified acute r enal failure type (HCC) Franca Pineda MD 11/19/2019 - Hospital Encounter General Internal Octavio Aranda D iarrhea of infectious origin (Primary Dx); 11/23/2019 Medicine Dehydration Franca Pineda MD Sadiq, Mobin Aslam, MD 10/28/2019 - Hospital Encounter General Internal Elier Polk current UTI (Primary Dx); 11/01/2019 Medicine Juliette PIERRE MD Dehydration, moderate; Franca Pineda Acute renal ins ufficiency MD Evans 10/13/2019 - Hospital Encounter General Internal aSda Foster rinary tract 10/19/2019 Medicine MD Kevin infection without Franca Pineda hematuria, site MD Evans unspecified (Pr imary Dx) 08/19/2019 Emergency Emergency Mustapha Stack Dysuria (Prim diana Dx); Medicine MD Serge Chronic pelvic pain in female; Chronic cystiti s 07/13/2019 Emergency Emergency Cali Ch Body aches (P rimary Dx); Medicine Lamine Cota, Upper respi ratory tract infection, unspecified type; Leukocytes in u rine 06/30/2019 - Hospital Encounter General Internal Elier Polk [place] UTI (Primary Dx); 07/03/2019 Medicine Juliette PIERRE MD Failure of outpatient treatment Franca Pineda MD 06/22/2019 - Hospital Encounter General Internal Chowdhury, Urina ry tract 06/26/2019 Medicine MD Robin infection with Edwin, Franca hematuria, site MD Evans unspecified (Pr imary Dx) 06/06/2019 Anesthesia Event General Surgery Sanjuana Abarca MD Pasdar-Shirazi, Francisco, MD 06/06/2019 Surgery General Surgery Barbara Rosales, Cystoscop y MD 06/05/2019 - Hospital Encounter General Internal Edwin, Franca Urina ry tract infection without hematuria, site unspecified (Primary Dx); 06/09/2019 Medicine MD Evans Dysuria; Bladder pain 06/03/2019 Emergency Emergency Brandon Hernandez, Acute pelvic pain (Primary Dx); Medicine DO Acute cystitis without hematuria 06/03/2019 Travel 05/26/2019 - Hospital Encounter General Internal Chowdhury, Urina ry tract 05/30/2019 Medicine MD Robin infection with Edwin, Franca hematuria, site MD Evans unspecified (Pr imary Dx) 05/18/2019 Patient Outreach Quality Edna Allen RN 05/13/2019 - Hospital Encounter General Internal Brandon Hernandez, Uri nary tract 05/16/2019 Medicine DO infection without Edwin, Franca hematuria, site MD Evans unspecified (Pr imary Dx) 04/09/2019 - Hospital Encounter General Internal Edwige Toledo Urina ry tract infection without hematuria, site unspecified (Primary Dx); 04/16/2019 Medicine Sandoval Cardoso MD Anemia, unspecified type; Arpit Alexanderuria MD Lenny after 03/22/2019 Family History Medical History Relation Name Comments Diabetes Father Heart disease Father Hypertension Father Diabetes Mother Heart disease Mother Hypertension Mother Kidney disease Mother Relation Name Status Comments Father Mother Social History Tobacco Use Types Packs/Day Years Used Date Never Smoker Smokeless Tobacco: Never Used Alcohol Use Drinks/Week oz/Week Comments No Alcohol Habits Answer Date Recorded How often do you have a drink containing alcohol? Never 10/15/2019 How many drinks containing alcohol do you have on a typical Not asked day when you are drinking? How often do you have six or more drinks on one occasion? No t asked Sex Assigned at Date Recorded Not on file Job Start Date Occupation Industry Not on file Not on file Not on file Travel History Travel Start Travel End No recent travel history available. Last Filed Vital Signs Vital Sign Reading Time Taken Comments Blood Pressure 120/62 12/04/2019 3:41 PM [employer] Pulse 84 12/04/2019 3:41 PM [employer] Temperature 36.4 C (97.6 F) 12/04/2019 3:41 PM [employer] Respiratory Rate 18 12/04/2019 3:41 PM [employer] Oxygen Saturation 95% 12/04/2019 3:41 PM [employer] Inhaled Oxygen Concentration - - Weight 70.1 kg (154 lb 8 oz) 12/04/2019 4:47 AM [employer] Height 165.1 cm (5' 5") 11/19/2019 7:50 PM [employer] Body Mass Index 25.71 11/19/2019 7:50 PM [employer] Plan of Treatment Health Maintenance Due Date Last Done Comments BREAST CANCER SCREENING 1997 COLONOSCOPY SCREENING 1997 SHINGLES VACCINES (#1) 1997 65+ PNEUMOCOCCAL VACCINE (2 of 2 - PPSV23) 08/20/201208/07 INFLUENZA VACCINE 05/31/2020 08/05/2016, 2015 Implants Implanted Type Area Director Of Procurement Device Identifier Shelf Exp iration Model / Serial Date / Lot Screw Screw Procedures Procedure Name Priority Date/Time Associated Comments Diagnosis ESTIMATED GFR Routine 12/04/2019 7:50 Results fo r this AM [employer] procedure are i n the results section. BASIC METABOLIC PANEL Routine 12/04/2019 7:50 Re sults for this AM [employer] procedure are i n the results section. XR CHEST 1 VW PORTABLE Routine 12/03/2019 7:20 R esults for this AM [employer] procedure are i n the results section. ESTIMATED GFR Routine 12/03/2019 5:20 Results fo r this AM [employer] procedure are i n the results section. BASIC METABOLIC PANEL Routine 12/03/2019 5:20 Re sults for this AM [employer] procedure are i n the results section. URINE CULTURE Routine 12/02/2019 12:53 Results fo r this PM [employer] procedure are i n the results section. URINALYSIS SCREEN AND Routine 12/02/2019 11:30 Re sults for this MICROSCOPY, WITH REFLEX AM [employer] proc edure are in TO CULTURE the results section. AMIKACIN LEVEL, PEAK Routine 12/02/2019 10:15 Res ults for this AM [employer] procedure are i n the results section. AMIKACIN LEVEL, TROUGH Routine 12/02/2019 8:50 R esults for this AM [employer] procedure are i n the results section. US RENAL Routine 12/02/2019 5:59 Results for this AM [employer] procedure are i n the results section. ESTIMATED GFR Routine 12/02/2019 5:10 Results fo r this AM [employer] procedure are i n the results section. URIC ACID LEVEL Routine 12/02/2019 5:10 Results for this AM [employer] procedure are i n the results section. CREATINE KINASE, TOTAL Routine 12/02/2019 5:10 R esults for this (CPK) AM [employer] procedure are i n the results section. COMPREHENSIVE METABOLIC Routine 12/02/2019 5:10 Results for this PANEL AM [employer] procedure are i n the results section. HC COMPLETE BLD COUNT Routine 12/02/2019 5:10 Re sults for this W/AUTO DIFF AM [employer] procedure are i n the results section. CREATININE LEVEL, URINE, Routine 12/01/2019 7:30 Results for this RANDOM PM [employer] procedure are i n the results section. PROTEIN, URINE, RANDOM Routine 12/01/2019 7:30 R esults for this PM [employer] procedure are i n the results section. LACTIC ACID LEVEL, Timed 12/01/2019 7:30 Resul ts for this SEPSIS - NOW AND REPEAT AM [employer] proc edure are in 2X EVERY 3 HOURS the results section. XR CHEST 1 VW PORTABLE STAT 12/01/2019 5:32 R esults for this AM [employer] procedure are i n the results section. URINE CULTURE STAT 12/01/2019 5:27 Results fo r this AM [employer] procedure are i n the results section. BLOOD CULTURE, AEROBIC & Routine 12/01/2019 5:05 Results for this ANAEROBIC AM [employer] procedure are i n the results section. URINALYSIS SCREEN AND STAT 12/01/2019 4:38 Re sults for this MICROSCOPY, WITH REFLEX AM [employer] proc edure are in TO CULTURE the results section. ESTIMATED GFR STAT 12/01/2019 4:35 Results fo r this AM [employer] procedure are i n the results section. LACTIC ACID LEVEL, STAT 12/01/2019 4:35 Resul ts for this SEPSIS - NOW AND REPEAT AM [employer] proc edure are in 2X EVERY 3 HOURS the results section. COMPREHENSIVE METABOLIC STAT 12/01/2019 4:35 Results for this PANEL AM [employer] procedure are i n the results section. PARTIAL THROMBOPLASTIN STAT 12/01/2019 4:35 R esults for this TIME (PTT) AM [employer] procedure are i n the results section. PROTHROMBIN TIME WITH STAT 12/01/2019 4:35 Re sults for this INR AM [employer] procedure are i n the results section. HC COMPLETE BLD COUNT STAT 12/01/2019 4:35 Re sults for this W/AUTO DIFF AM [employer] procedure are i n the results section. BLOOD CULTURE, AEROBIC & Routine 12/01/2019 4:35 Results for this ANAEROBIC AM [employer] procedure are i n the results section. ESTIMATED GFR Routine 11/23/2019 3:25 Results fo r this AM [employer] procedure are i n the results section. BASIC METABOLIC PANEL Routine 11/23/2019 3:25 Re sults for this AM [employer] procedure are i n the results section. HC COMPLETE BLD COUNT Routine 11/23/2019 3:25 Re sults for this W/AUTO DIFF AM [employer] procedure are i n the results section. GASTROINTESTINAL PANEL Routine 11/21/2019 8:46 R esults for this PM [employer] procedure are i n the results section. TROPONIN Timed 11/21/2019 5:20 Results for this PM [employer] procedure are i n the results section. XR CHEST 1 VW PORTABLE Routine 11/21/2019 12:34 R esults for this PM [employer] procedure are i n the results section. ECG 12-LEAD Routine 11/21/2019 11:26 Results for this AM [employer] procedure are i n the results section. TROPONIN Timed 11/21/2019 11:15 Results for this AM [employer] procedure are i n the results section. ESTIMATED GFR Routine 11/21/2019 5:15 Results fo r this AM [employer] procedure are i n the results section. COMPREHENSIVE METABOLIC Routine 11/21/2019 5:15 Results for this PANEL AM [employer] procedure are i n the results section. HC COMPLETE BLD COUNT Routine 11/21/2019 5:15 Re sults for this W/AUTO DIFF AM [employer] procedure are i n the results section. URINE CULTURE Routine 11/20/2019 3:48 Results fo r this PM [employer] [facility] procedure are i n the results section. GRAM STAIN Routine 11/20/2019 3:48 Results for this PM [employer] procedure are i n the results section. URINALYSIS SCREEN AND Routine 11/20/2019 3:21 Re sults for this MICROSCOPY, WITH REFLEX PM [employer] proc edure are in TO CULTURE the results section. GASTROINTESTINAL PANEL Routine 11/19/2019 6:25 R esults for this PM [employer] [facility] procedure are i n the results section. ESTIMATED GFR STAT 11/19/2019 5:20 Results fo r this PM [employer] [facility] procedure are i n the results section. LIPASE LEVEL STAT 11/19/2019 5:20 Results for this PM [employer] [facility] procedure are i n the results section. COMPREHENSIVE METABOLIC STAT 11/19/2019 5:20 Results for this PANEL PM [employer] [facility] procedure are i n the results section. HC COMPLETE BLD COUNT STAT 11/19/2019 5:20 Re sults for this W/AUTO DIFF PM [employer] procedure are i n the results section. ESTIMATED GFR Routine 11/01/2019 4:25 Results fo r this AM [employer] [facility] procedure are i n the results section. HC COMPLETE BLD COUNT Routine 11/01/2019 4:25 Re sults for this W/AUTO DIFF AM [employer] [facility] procedure are i n the results section. BASIC METABOLIC PANEL Routine 11/01/2019 4:25 Re sults for this AM [employer] [facility] procedure are i n the results section. ESTIMATED GFR Routine 10/31/2019 5:00 Results fo r this AM [employer] [facility] procedure are i n the results section. HC COMPLETE BLD COUNT Routine 10/31/2019 5:00 Re sults for this W/AUTO DIFF AM [employer] [facility] procedure are i n the results section. BASIC METABOLIC PANEL Routine 10/31/2019 5:00 Re sults for this AM [employer] [facility] procedure are i n the results section. ESTIMATED GFR Routine 10/30/2019 4:00 Results fo r this AM [employer] [facility] procedure are i n the results section. HC COMPLETE BLD COUNT Routine 10/30/2019 4:00 Re sults for this W/AUTO DIFF AM [employer] [facility] procedure are i n the results section. BASIC METABOLIC PANEL Routine 10/30/2019 4:00 Re sults for this AM [employer] [facility] procedure are i n the results section. ESTIMATED GFR Routine 10/29/2019 3:10 Results fo r this AM [employer] [facility] procedure are i n the results section. HC COMPLETE BLD COUNT Routine 10/29/2019 3:10 Re sults for this W/AUTO DIFF AM [employer] procedure are i n the results section. BASIC METABOLIC PANEL Routine 10/29/2019 3:10 Re sults for this AM [employer] [facility] procedure are i n the results section. CT LUMBAR SPINE WO Routine 10/28/2019 2:52 Resul ts for this CONTRAST PM [employer] [facility] procedure are i n the results section. ECG 12-LEAD Routine 10/28/2019 9:27 Results for this AM [employer] [facility] procedure are i n the results section. GRAM STAIN Routine 10/28/2019 7:31 Results for this AM [employer] [facility] procedure are i n the results section. URINE CULTURE Routine 10/28/2019 7:31 Results fo r this AM [employer] [facility] procedure are i n the results section. XR SHOULDER 2+ VW RIGHT STAT 10/28/2019 7:11 Results for this AM [employer] [facility] procedure are i n the results section. ECG 12-LEAD STAT 10/28/2019 6:22 Results for this AM [employer] [facility] procedure are i n the results section. XR PELVIS 1 OR 2 VW STAT 10/28/2019 6:18 Resu lts for this AM [employer] procedure are i n the results section. SMEAR REVIEW STAT 10/28/2019 5:40 Results for this AM [employer] [facility] procedure are i n the results section. ESTIMATED GFR STAT 10/28/2019 5:40 Results fo r this AM [employer] [facility] procedure are i n the results section. COMPREHENSIVE METABOLIC STAT 10/28/2019 5:40 Results for this PANEL AM [employer] procedure are i n the results section. HC COMPLETE BLD COUNT STAT 10/28/2019 5:40 Re sults for this W/AUTO DIFF AM [employer] procedure are i n the results section. URINALYSIS SCREEN AND Routine 10/28/2019 5:30 Re sults for this MICROSCOPY, WITH REFLEX AM [employer] proc edure are in TO CULTURE the results section. ESTIMATED GFR Routine 10/19/2019 6:30 Results fo r this AM [employer] [facility] procedure are i n the results section. BASIC METABOLIC PANEL Routine 10/19/2019 6:30 Re sults for this AM [employer] [facility] procedure are i n the results section. HC COMPLETE BLD COUNT Routine 10/19/2019 4:00 Re sults for this W/AUTO DIFF AM [employer] procedure are i n the results section. SMEAR REVIEW Routine 10/18/2019 5:50 Results for this AM [employer] [facility] procedure are i n the results section. ESTIMATED GFR Routine 10/18/2019 5:50 Results fo r this AM [employer] [facility] procedure are i n the results section. HC COMPLETE BLD COUNT Routine 10/18/2019 5:50 Re sults for this W/AUTO DIFF AM [employer] procedure are i n the results section. BASIC METABOLIC PANEL Routine 10/18/2019 5:50 Re sults for this AM [employer] [facility] procedure are i n the results section. ESTIMATED GFR Routine 10/17/2019 5:45 Results fo r this AM [employer] [facility] procedure are i n the results section. HC COMPLETE BLD COUNT Routine 10/17/2019 5:45 Re sults for this W/AUTO DIFF AM [facility] procedure are i n the results section. BASIC METABOLIC PANEL Routine 10/17/2019 5:45 Re sults for this AM [employer] procedure are i n the results section. ESTIMATED GFR Routine 10/16/2019 10:09 Results fo r this AM [employer] [facility] procedure are i n the results section. HC COMPLETE BLD COUNT Routine 10/16/2019 10:09 Re sults for this W/AUTO DIFF AM [employer] procedure are i n the results section. BASIC METABOLIC PANEL Routine 10/16/2019 10:09 Re sults for this AM [employer] [facility] procedure are i n the results section. CLOSTRIDIUM DIFFICILE Routine 10/16/2019 4:20 Re sults for this TOXIN AM [employer] [facility] procedure are i n the results section. TROPONIN Timed 10/14/2019 6:20 Results for this AM [employer] [facility] procedure are i n the results section. LACTIC ACID LEVEL, Timed 10/14/2019 6:20 Resul ts for this SEPSIS - NOW AND REPEAT AM [facility] proc edure are in 2X EVERY 3 HOURS the results section. TROPONIN Timed 10/13/2019 10:40 Results for this PM [employer] [facility] procedure are i n the results section. LACTIC ACID LEVEL, Timed 10/13/2019 10:40 Resul ts for this SEPSIS - NOW AND REPEAT PM [employer] proc edure are in 2X EVERY [address] ABDOMEN PELVIS W STAT 10/13/2019 3:18 Resu lts for this CONTRAST PM [employer] [facility] procedure are i n the results section. GRAM STAIN Routine 10/13/2019 2:04 Results for this PM [employer] [facility] procedure are i n the results section. URINE CULTURE Routine 10/13/2019 2:04 Results fo r this PM [employer] [facility] procedure are i n the results section. BLOOD CULTURE, AEROBIC & Routine 10/13/2019 1:44 Results for this ANAEROBIC PM [employer] [facility] procedure are i n the results section. ESTIMATED GFR STAT 10/13/2019 1:40 Results fo r this PM [employer] [facility] procedure are i n the results section. TROPONIN Timed 10/13/2019 1:40 Results for this PM [employer] [facility] procedure are i n the results section. COMPREHENSIVE METABOLIC STAT 10/13/2019 1:40 Results for this PANEL PM [employer] [facility] procedure are i n the results section. HC COMPLETE BLD COUNT STAT 10/13/2019 1:40 Re sults for this W/AUTO DIFF PM [employer] [facility] procedure are i n the results section. LACTIC ACID LEVEL, STAT 10/13/2019 1:40 Resul ts for this SEPSIS - NOW AND REPEAT PM [employer] proc edure are in 2X EVERY 3 HOURS the results section. BLOOD CULTURE, AEROBIC & Routine 10/13/2019 1:40 Results for this ANAEROBIC PM [employer] [facility] procedure are i n the results section. XR CHEST 1 VW PORTABLE STAT 10/13/2019 1:37 R esults for this PM [employer] [facility] procedure are i n the results section. ECG 12-LEAD STAT 10/13/2019 1:27 Results for this PM [employer] [facility] procedure are i n the results section. URINALYSIS SCREEN AND Routine 10/13/2019 1:02 Re sults for this MICROSCOPY, WITH REFLEX PM [employer] proc edure are in TO CULTURE the results section. ECG ED PRELIMINARY Routine 10/13/2019 12:47 Resul ts for this INTERPRETATION PM [employer] [facility] procedure are in the results section. URINE CULTURE Routine 08/19/2019 1:30 Results fo r this PM [facility] procedure are i n the results section. GRAM STAIN Routine 08/19/2019 1:30 Results for this PM [facility] procedure are i n the results section. URINALYSIS SCREEN AND Routine 08/19/2019 1:07 Re sults for this MICROSCOPY, WITH REFLEX PM [facility] proc edure are in TO CULTURE the results section. GRAM STAIN STAT 07/13/2019 2:43 Results for this PM [facility] procedure are i n the results section. URINE CULTURE STAT 07/13/2019 2:43 Results fo r this PM [facility] procedure are i n the results section. CT HEAD WO CONTRAST STAT 07/13/2019 2:09 Resu lts for this PM [facility] procedure are i n the results section. ECG 12-LEAD STAT 07/13/2019 2:03 Results for this PM [facility] procedure are i n the results section. RESPIRATORY PATHOGEN Routine 07/13/2019 1:58 Res ults for this PANEL PM [facility] procedure are i n the results section. STREP SCREEN CULTURE Routine 07/13/2019 1:58 Res ults for this PM [facility] procedure are i n the results section. GROUP A STREP, RAPID Routine 07/13/2019 1:58 Res ults for this ANTIGEN PM [facility] procedure are i n the results section. INFLUENZA ANTIGEN TEST, Routine 07/13/2019 1:58 Results for this REFLEX NEGATIVE TO RPP PM [facility] proce dure are in the results section. XR CHEST 1 VW PORTABLE STAT 07/13/2019 1:46 R esults for this PM [facility] procedure are i n the results section. CREATINE KINASE, TOTAL STAT 07/13/2019 1:38 R esults for this (CPK) PM [facility] procedure are i n the results section. ESTIMATED GFR STAT 07/13/2019 1:38 Results fo r this PM [facility] procedure are i n the results section. LIPASE LEVEL STAT 07/13/2019 1:38 Results for this PM [facility] procedure are i n the results section. URINALYSIS SCREEN AND STAT 07/13/2019 1:38 Re sults for this MICROSCOPY, WITH REFLEX PM [facility] proc edure are in TO CULTURE the results section. TROPONIN STAT 07/13/2019 1:38 Results for this PM [facility] procedure are i n the results section. COMPREHENSIVE METABOLIC STAT 07/13/2019 1:38 Results for this PANEL PM [facility] procedure are i n the results section. HC COMPLETE BLD COUNT STAT 07/13/2019 1:38 Re sults for this W/AUTO DIFF PM [facility] procedure are i n the results section. ECG ED PRELIMINARY Routine 07/13/2019 1:17 Resul ts for this INTERPRETATION PM [facility] procedure are in the results section. MANUAL DIFFERENTIAL Routine 07/01/2019 5:30 Resu lts for this AM [facility] procedure are i n the results section. ESTIMATED GFR Routine 07/01/2019 5:30 Results fo r this AM [facility] procedure are i n the results section. COMPREHENSIVE METABOLIC Routine 07/01/2019 5:30 Results for this PANEL AM [facility] procedure are i n the results section. CBC WITH PLATELET AND Routine 07/01/2019 5:30 Re sults for this DIFFERENTIAL AM [facility] procedure are i n the results section. BLOOD CULTURE, AEROBIC & Routine 06/30/2019 1:15 Results for this ANAEROBIC PM [facility] procedure are i n the results section. ESTIMATED GFR STAT 06/30/2019 12:50 Results fo r this PM [facility] procedure are i n the results section. LIPASE LEVEL STAT 06/30/2019 12:50 Results for this PM [facility] procedure are i n the results section. COMPREHENSIVE METABOLIC STAT 06/30/2019 12:50 Results for this PANEL PM [facility] procedure are i n the results section. HC COMPLETE BLD COUNT STAT 06/30/2019 12:50 Re sults for this W/AUTO DIFF PM [facility] procedure are i n the results section. BLOOD CULTURE, AEROBIC & Routine 06/30/2019 12:50 Results for this ANAEROBIC PM [facility] procedure are i n the results section. URINE CULTURE Routine 06/30/2019 12:35 Results fo r this PM [facility] procedure are i n the results section. GRAM STAIN Routine 06/30/2019 12:35 Results for this PM [facility] procedure are i n the results section. URINALYSIS SCREEN AND Routine 06/30/2019 11:29 Re sults for this MICROSCOPY, WITH REFLEX AM [facility] proc edure are in TO CULTURE the results section. ESTIMATED GFR Routine 06/26/2019 5:43 Results fo r this AM [facility] procedure are i n the results section. BASIC METABOLIC PANEL Routine 06/26/2019 5:43 Re sults for this AM [facility] procedure are i n the results section. HC COMPLETE BLD COUNT Routine 06/26/2019 5:43 Re sults for this W/AUTO DIFF AM [facility] procedure are i n the results section. ESTIMATED GFR Routine 06/25/2019 5:40 Results fo r this AM [facility] procedure are i n the results section. BASIC METABOLIC PANEL Routine 06/25/2019 5:40 Re sults for this AM [facility] procedure are i n the results section. HC COMPLETE BLD COUNT Routine 06/25/2019 5:40 Re sults for this W/AUTO DIFF AM [facility] procedure are i n the results section. GRAM STAIN Routine 06/24/2019 11:34 Results for this AM [facility] procedure are i n the results section. URINE CULTURE Routine 06/24/2019 11:34 Results fo r this AM [facility] procedure are i n the results section. URINALYSIS SCREEN AND Routine 06/24/2019 10:52 Re sults for this MICROSCOPY, WITH REFLEX AM [facility] proc edure are in TO CULTURE the results section. XR LUMBAR SPINE 2 OR 3 Routine 06/23/2019 3:27 R esults for this VW PM [facility] procedure are i n the results section. ECG 12-LEAD STAT 06/23/2019 10:13 Results for this AM [facility] procedure are i n the results section. MANUAL DIFFERENTIAL Routine 06/23/2019 6:17 Resu lts for this AM [facility] procedure are i n the results section. ESTIMATED GFR Routine 06/23/2019 6:17 Results fo r this AM [facility] procedure are i n the results section. COMPREHENSIVE METABOLIC Routine 06/23/2019 6:17 Results for this PANEL AM [facility] procedure are i n the results section. CBC WITH PLATELET AND Routine 06/23/2019 6:17 Re sults for this DIFFERENTIAL AM [facility] procedure are i n the results section. LACTIC ACID LEVEL, Timed 06/23/2019 6:17 Resul ts for this SEPSIS - NOW AND REPEAT AM [facility] proc edure are in 2X EVERY 3 HOURS the results section. LACTIC ACID LEVEL, Timed 06/23/2019 3:05 Resul ts for this SEPSIS - NOW AND REPEAT AM [facility] proc edure are in 2X EVERY 3 HOURS the results section. ESTIMATED GFR STAT 06/22/2019 6:00 Results fo r this PM [facility] procedure are i n the results section. COMPREHENSIVE METABOLIC STAT 06/22/2019 6:00 Results for this PANEL PM [facility] procedure are i n the results section. HC COMPLETE BLD COUNT STAT 06/22/2019 6:00 Re sults for this W/AUTO DIFF PM [facility] procedure are i n the results section. LACTIC ACID LEVEL, STAT 06/22/2019 6:00 Resul ts for this SEPSIS - NOW AND REPEAT PM [facility] proc edure are in 2X EVERY 3 HOURS the results section. BLOOD CULTURE, AEROBIC & Routine 06/22/2019 5:32 Results for this ANAEROBIC PM [facility] procedure are i n the results section. BLOOD CULTURE, AEROBIC & Routine 06/22/2019 5:30 Results for this ANAEROBIC PM [facility] procedure are i n the results section. ECG ED PRELIMINARY Routine 06/22/2019 5:27 Resul ts for this INTERPRETATION PM [facility] procedure are in the results section. GRAM STAIN STAT 06/22/2019 5:19 Results for this PM [facility] procedure are i n the results section. URINE CULTURE STAT 06/22/2019 5:19 Results fo r this PM [facility] procedure are i n the results section. ECG 12-LEAD STAT 06/22/2019 5:16 Results for this PM [facility] procedure are i n the results section. URINALYSIS SCREEN AND STAT 06/22/2019 4:47 Re sults for this MICROSCOPY, WITH REFLEX PM [facility] proc edure are in TO CULTURE the results section. XR ABDOMEN 1 VW Routine 06/07/2019 12:07 Results for this PM [facility] procedure are i n the results section. ESTIMATED GFR Routine 06/07/2019 6:10 Results fo r this AM [facility] procedure are i n the results section. BASIC METABOLIC PANEL Routine 06/07/2019 6:10 Re sults for this AM [facility] procedure are i n the results section. HC COMPLETE BLD COUNT Routine 06/07/2019 6:10 Re sults for this W/AUTO DIFF AM [facility] procedure are i n the results section. GRAM STAIN Timed 06/06/2019 11:16 Results for this AM [facility] procedure are i n the results section. URINE CULTURE Timed 06/06/2019 11:16 Results fo r this AM [facility] procedure are i n the results section. URINALYSIS SCREEN AND Timed 06/06/2019 10:11 Bladder pain Re sults for this MICROSCOPY, WITH REFLEX AM [facility] proc edure are in TO CULTURE the results section. LACTIC ACID LEVEL, Timed 06/06/2019 4:15 Resul ts for this SEPSIS - NOW AND REPEAT AM [facility] proc edure are in 2X EVERY 3 HOURS the results section. LACTIC ACID LEVEL, Timed 06/06/2019 12:05 Resul ts for this SEPSIS - NOW AND REPEAT AM [facility] proc edure are in 2X EVERY 3 HOURS the results section. ESTIMATED GFR STAT 06/05/2019 9:31 Results fo r this PM [facility] procedure are i n the results section. LIPASE LEVEL STAT 06/05/2019 9:31 Results for this PM [facility] procedure are i n the results section. COMPREHENSIVE METABOLIC STAT 06/05/2019 9:31 Results for this PANEL PM [facility] procedure are i n the results section. GRAM STAIN STAT 06/05/2019 8:44 Results for this PM [facility] procedure are i n the results section. URINE CULTURE STAT 06/05/2019 8:44 Results fo r this PM [facility] procedure are i n the results section. BLOOD CULTURE, AEROBIC & Routine 06/05/2019 8:30 Results for this ANAEROBIC PM [facility] procedure are i n the results section. URINALYSIS SCREEN AND STAT 06/05/2019 8:21 Re sults for this MICROSCOPY, WITH REFLEX PM [facility] proc edure are in TO CULTURE the results section. HC COMPLETE BLD COUNT STAT 06/05/2019 8:21 Re sults for this W/AUTO DIFF PM [facility] procedure are i n the results section. LACTIC ACID LEVEL, STAT 06/05/2019 8:21 Resul ts for this SEPSIS - NOW AND REPEAT PM [facility]T proc edure are in 2X EVERY 3 HOURS the results section. BLOOD CULTURE, AEROBIC & Routine 06/05/2019 8:20 Results for this ANAEROBIC PM [facility] procedure are i n the results section. CT RENAL STONE PROTOCOL STAT 06/03/2019 2:45 Results for this PM [facility] procedure are i n the results section. GRAM STAIN STAT 06/03/2019 1:08 Results for this PM [facility] procedure are i n the results section. URINE CULTURE STAT 06/03/2019 1:08 Results fo r this PM [facility] procedure are i n the results section. ESTIMATED GFR STAT 06/03/2019 12:42 Results fo r this PM [facility] procedure are i n the results section. COMPREHENSIVE METABOLIC STAT 06/03/2019 12:42 Results for this PANEL PM [facility] procedure are i n the results section. HC COMPLETE BLD COUNT STAT 06/03/2019 12:42 Re sults for this W/AUTO DIFF PM [facility] procedure are i n the results section. URINALYSIS SCREEN AND STAT 06/03/2019 12:29 Re sults for this MICROSCOPY, WITH REFLEX PM [facility] proc edure are in TO CULTURE the results section. ESTIMATED GFR Routine 05/30/2019 4:30 Results fo r this AM [facility] procedure are i n the results section. BASIC METABOLIC PANEL Routine 05/30/2019 4:30 Re sults for this AM [facility] procedure are i n the results section. HC COMPLETE BLD COUNT Routine 05/30/2019 4:30 Re sults for this W/AUTO DIFF AM [facility] procedure are i n the results section. ESTIMATED GFR Routine 05/29/2019 4:18 Results fo r this AM [facility] procedure are i n the results section. BASIC METABOLIC PANEL Routine 05/29/2019 4:18 Re sults for this AM [facility] procedure are i n the results section. HC COMPLETE BLD COUNT Routine 05/29/2019 4:18 Re sults for this W/AUTO DIFF AM [facility] procedure are i n the results section. ESTIMATED GFR Routine 05/28/2019 5:34 Results fo r this AM [facility] procedure are i n the results section. BASIC METABOLIC PANEL Routine 05/28/2019 5:34 Re sults for this AM [facility] procedure are i n the results section. HC COMPLETE BLD COUNT Routine 05/28/2019 5:34 Re sults for this W/AUTO DIFF AM [facility] procedure are i n the results section. TROPONIN Timed 05/27/2019 9:47 Results for this AM [facility] procedure are i n the results section. ESTIMATED GFR Routine 05/27/2019 5:30 Results fo r this AM [facility] procedure are i n the results section. COMPREHENSIVE METABOLIC Routine 05/27/2019 5:30 Results for this PANEL AM [facility] procedure are i n the results section. HC COMPLETE BLD COUNT Routine 05/27/2019 5:30 Re sults for this W/AUTO DIFF AM [facility] procedure are i n the results section. TROPONIN Timed 05/27/2019 5:30 Results for this AM [facility] procedure are i n the results section. TROPONIN Timed 05/26/2019 10:45 Results for this PM [facility] procedure are i n the results section. LACTIC ACID LEVEL, Timed 05/26/2019 10:45 Resul ts for this SEPSIS - NOW AND REPEAT PM CDT proc edure are in 2X EVERY 3 HOURS the results section. LACTIC ACID LEVEL, Timed 05/26/2019 4:00 Resul ts for this SEPSIS - NOW AND REPEAT PM [facility]T proc edure are in 2X EVERY [address] results section[address] RENAL STONE PROTOCOL STAT 05/26/2019 3:01 Results for this PM [facility] procedure are i n the results section. BLOOD CULTURE, AEROBIC & Routine 05/26/2019 1:37 Results for this ANAEROBIC PM [facility] procedure are i n the results section. ESTIMATED GFR STAT 05/26/2019 1:30 Results fo r this PM [facility] procedure are i n the results section. LACTIC ACID LEVEL, STAT 05/26/2019 1:30 Resul ts for this SEPSIS - NOW AND REPEAT PM CDT proc edure are in 2X EVERY 3 HOURS the results section. COMPREHENSIVE METABOLIC STAT 05/26/2019 1:30 Results for this PANEL PM [facility] procedure are i n the results section. HC COMPLETE BLD COUNT STAT 05/26/2019 1:30 Re sults for this W/AUTO DIFF PM [facility]T procedure are i n the results section. BLOOD CULTURE, AEROBIC & Routine 05/26/2019 1:30 Results for this ANAEROBIC PM [facility]T procedure are i n the results section. GRAM STAIN STAT 05/26/2019 1:21 Results for this PM [facility] procedure are i n the results section. URINE CULTURE STAT 05/26/2019 1:21 Results fo r this PM [facility] procedure are i n the results section. URINALYSIS SCREEN AND STAT 05/26/2019 12:14 Re sults for this MICROSCOPY, WITH REFLEX PM [facility]T proc edure are in TO CULTURE the results section. ESTIMATED GFR Routine 05/16/2019 3:10 Results fo r this AM [facility] procedure are i n the results section. BASIC METABOLIC PANEL Routine 05/16/2019 3:10 Re sults for this AM [facility]T procedure are i n the results section. HC COMPLETE BLD COUNT Routine 05/16/2019 3:10 Re sults for this W/AUTO DIFF AM [facility]T procedure are i n the results section. ESTIMATED GFR Routine 05/15/2019 5:20 Results fo r this AM [facility]T procedure are i n the results section. MAGNESIUM LEVEL Routine 05/15/2019 5:20 Results for this AM [facility]T procedure are i n the results section. COMPREHENSIVE METABOLIC Routine 05/15/2019 5:20 Results for this PANEL AM [facility] procedure are i n the results section. HC COMPLETE BLD COUNT Routine 05/15/2019 5:20 Re sults for this W/AUTO DIFF AM CDT procedure are i n the results section. ESTIMATED GFR Routine 05/14/2019 4:45 Results fo r this AM [facility]T procedure are i n the results section. COMPREHENSIVE METABOLIC Routine 05/14/2019 4:45 Results for this PANEL AM [facility] procedure are i n the results section. HC COMPLETE BLD COUNT Routine 05/14/2019 4:45 Re sults for this W/AUTO DIFF AM [facility]T procedure are i n the results section. ESTIMATED GFR STAT 05/13/2019 5:35 Results fo r this PM [facility]T procedure are i n the results section. COMPREHENSIVE METABOLIC STAT 05/13/2019 5:35 Results for this PANEL PM [facility] procedure are i n the results section. PARTIAL THROMBOPLASTIN STAT 05/13/2019 5:35 R esults for this TIME (PTT) PM CDT procedure are i n the results section. PROTHROMBIN TIME WITH STAT 05/13/2019 5:35 Re sults for this INR PM [facility]T procedure are i n the results section. HC COMPLETE BLD COUNT STAT 05/13/2019 5:35 Re sults for this W/AUTO DIFF PM [facility]T procedure are i n the results section. BLOOD CULTURE, AEROBIC & Routine 05/13/2019 5:35 Results for this ANAEROBIC PM [facility]T procedure are i n the results section. BLOOD CULTURE, AEROBIC & Routine 05/13/2019 5:35 Results for this ANAEROBIC PM [facility]T procedure are i n the results section. URINE CULTURE STAT 05/13/2019 5:09 Results fo r this PM [facility]T procedure are i n the results section. GRAM STAIN STAT 05/13/2019 5:09 Results for this PM [facility]T procedure are i n the results section. URINALYSIS SCREEN AND STAT 05/13/2019 4:09 Re sults for this MICROSCOPY, WITH REFLEX PM [facility]T proc edure are in TO CULTURE the results section. IR PICC PLACEMENT Routine 04/16/2019 2:03 Result s for this PM [facility]T procedure are i n the results section. CLOSTRIDIUM DIFFICILE Routine 04/16/2019 10:26 Re sults for this TOXIN AM [facility] procedure are i n the results section. MANUAL DIFFERENTIAL Routine 04/16/2019 4:45 Resu lts for this AM [facility]T procedure are i n the results section. CBC WITH PLATELET AND Routine 04/16/2019 4:45 Re sults for this DIFFERENTIAL AM [facility] procedure are i n the results section. MANUAL DIFFERENTIAL Routine 04/15/2019 4:02 Resu lts for this AM CDT procedure are i n the results section. ESTIMATED GFR Routine 04/15/2019 4:02 Results fo r this AM CDT procedure are i n the results section. COMPREHENSIVE METABOLIC Routine 04/15/2019 4:02 Results for this PANEL AM CDT procedure are i n the results section. CBC WITH PLATELET AND Routine 04/15/2019 4:02 Re sults for this DIFFERENTIAL AM CDT procedure are i n the results section. ESTIMATED GFR Routine 04/14/2019 1:00 Results fo r this PM CDT procedure are i n the results section. LACTIC ACID LEVEL Routine 04/14/2019 1:00 Result s for this PM CDT procedure are i n the results section. PROCALCITONIN Routine 04/14/2019 1:00 Results fo r this PM CDT procedure are i n the results section. COMPREHENSIVE METABOLIC Routine 04/14/2019 1:00 Results for this PANEL PM CDT procedure are i n the results section. HC COMPLETE BLD COUNT Routine 04/14/2019 1:00 Re sults for this W/AUTO DIFF PM CDT procedure are i n the results section. GRAM STAIN Routine 04/13/2019 1:43 Results for this PM CDT procedure are i n the results section. URINE CULTURE Routine 04/13/2019 1:43 Results fo r this PM CDT procedure are i n the results section. URINALYSIS SCREEN AND Routine 04/13/2019 1:10 Re sults for this MICROSCOPY, WITH REFLEX PM CDT proc edure are in TO CULTURE the results section. ESTIMATED GFR Routine 04/12/2019 4:20 Results fo r this AM CDT procedure are i n the results section. HC COMPLETE BLD COUNT Routine 04/12/2019 4:20 Re sults for this W/AUTO DIFF AM CDT procedure are i n the results section. COMPREHENSIVE METABOLIC Routine 04/12/2019 4:20 Results for this PANEL AM CDT procedure are i n the results section. ESTIMATED GFR Routine 04/11/2019 5:18 Results fo r this AM CDT procedure are i n the results section. COMPREHENSIVE METABOLIC Routine 04/11/2019 5:18 Results for this PANEL AM CDT procedure are i n the results section. CBC HEMOGRAM Routine 04/11/2019 5:18 Results for this AM CDT procedure are i n the results section. CT ABDOMEN PELVIS WO Routine 04/10/2019 8:52 Res ults for this CONTRAST PM CDT procedure are i n the results section. ESTIMATED GFR Routine 04/10/2019 3:22 Results fo r this AM CDT procedure are i n the results section. COMPREHENSIVE METABOLIC Routine 04/10/2019 3:22 Results for this PANEL AM CDT procedure are i n the results section. CBC HEMOGRAM Routine 04/10/2019 3:22 Results for this AM CDT procedure are i n the results section. LACTIC ACID LEVEL, Timed 04/09/2019 10:38 Resul ts for this SEPSIS - NOW AND REPEAT PM CDT proc edure are in 2X EVERY 3 HOURS the results section. LACTIC ACID LEVEL, Timed 04/09/2019 6:20 Resul ts for this SEPSIS - NOW AND REPEAT PM CDT proc edure are in 2X EVERY 3 HOURS the results section. GRAM STAIN Timed 04/09/2019 4:29 Results for this PM CDT procedure are i n the results section. URINE CULTURE Timed 04/09/2019 4:29 Results fo r this PM CDT procedure are i n the results section. ESTIMATED GFR STAT 04/09/2019 4:00 Results fo r this PM CDT procedure are i n the results section. LACTIC ACID LEVEL, Timed 04/09/2019 4:00 Resul ts for this SEPSIS - NOW AND REPEAT PM CDT proc edure are in 2X EVERY 3 HOURS the results section. HC COMPLETE BLD COUNT STAT 04/09/2019 4:00 Re sults for this W/AUTO DIFF PM CDT procedure are i n the results section. COMPREHENSIVE METABOLIC STAT 04/09/2019 4:00 Results for this PANEL PM CDT procedure are i n the results section. BLOOD CULTURE, AEROBIC & Routine 04/09/2019 4:00 Results for this ANAEROBIC PM CDT procedure are i n the results section. BLOOD CULTURE, AEROBIC & Routine 04/09/2019 4:00 Results for this ANAEROBIC PM CDT procedure are i n the results section. URINALYSIS SCREEN AND Timed 04/09/2019 3:55 Re sults for this MICROSCOPY, WITH REFLEX PM CDT proc edure are in TO CULTURE the results section. after 03/22/2019 Results Estimated GFR (12/04/2019 7:50 AM [facility] CRANBERRY)Only the most recent of42 resultswithin the time period is included. Estimated GFR 72 mL/min/1.73 SADAF LABOY Comment: m2 [employer] [facility] Catergory Units Interpretation HOS PITAL G1 >=90 Normal or high G2 60-89 Mildly decreased G3a 45-59 Mildly to moderately decreas ed G3b 30-44 Moderately to severely decre ased G4 15-29 Severely decreased G5 <15 Kidney failure The eGFR was calculated using the Chronic Kidney Disea se Epidemiology Collaboration (CKD-EPI) equation. Interpretation is based on recommendations of the National Kidney Foundation-Kidney Disease Outcomes Damián lity Initiative (NKF-KDOQI) published in 2014. Specimen Plasma specimen Performing Organization Address City/State/Zipcode Phone Number [facility] DEPARTMENT OF PATHOLOGY [address] [facility]. Ultrasound [employer] [place] [address] AND GENOMIC MEDICINE [facility] [place] [address] [facility]. [place], [place] [id number] [place] [address] Basic metabolic panel (12/04/2019 7:50 AM FARM[facility] CRANBERRY)Only the most recent of18 results within the time period is included. Pathologist Sig nature Sodium 139 135 - 148 mEq/L [facility] Potassium 4.2 3.5 - 5.0 mEq/L [facility] Chloride 108 98 - 112 mEq/L [facility] CO2 21 (L) 24 - 31 mEq/L [facility] Anion gap 10@ANIO 7 - 15 mEq/L [facility] BUN 14 8 - 23 mg/dL [facility] Creatinine 0.81 0.50 - 0.90 mg/dL [facility] Glucose 102 (H) 65 - 99 mg/dL [facility] Calcium 9.0 8.8 - 10.2 mg/dL [facility] Specimen Plasma specimen Performing Organization Address City/[facility]/Zipcode Phone Number [facility] DEPARTMENT OF PATHOLOGY [address] [place] [address] AND GENOMIC MEDICINE [facility] [address] XR Chest 1 Vw Portable (12/03/2019 7:20 AM [facility] CRANBERRY)Only the most recent of5 results within the time period is included. Specimen Narrative Performed At EXAMINATION: XR CHEST 1 VW PORTABLE RADIANT CLINICAL HISTORY: cough COMPARISON: To a previous examination from 12/01/2019 IMPRESSION: The heart is normal in appearance. The lungs are clear . Presumed postsurgical changes are noted involving the distal left clavicle. [facility]-[id number] Procedure Note Hm Interface, Radiology Results Incoming - 12/03/2019 7:29 AM [facility] CRAN[facility] EXAMINATION: XR CHEST 1 VW PORTABLE CLINICAL HISTORY: cough COMPARISON: To a previous examination f rom 12/01/2019 IMPRESSION: The heart is normal in appearance. The l ungs are clear. Presumed postsurgical changes are noted involving the distal left clavicle. [facility]-[id number] Performing Organization Address City/State/Zipcode Phone Number [facility] [address] [place] [address] Urine culture (12/02/2019 12:53 PM [facility] CRANBERRY)Only the most recent of17 resultswithin the time period is included. Urine culture Mixed shilpi <=10-3 col/cc [facility] IST isolate Comment: HOSPITAL Specimen Information Specimen Source: Urine Specimen Site: Clean catch Specimen Urine Performing Organization Address City/State/Zipcode Phone Number [facility] DEPARTMENT OF PATHOLOGY AND [address] [place], [place] [address] [facility] [address] [place] [address] Urinalysis screen and microscopy, with reflex to culture (12/02/2019 11:30 AM F[facility] CRANBERRY)Only the most recent of17 resultswithin the time period is included. Specimen site Clean catch [facility] Color, UA Yellow [facility] Appearance, UA Turbid [facility] Specific gravity, UA 1.013 1.001 - 1.030 [facility] pH, UA 5.0 5.0 - 9.0 [facility] Protein, UA 2+ (A) Negative [facility] Glucose, UA Negative Negative [facility] Ketones, UA Negative Negative [facility] Bilirubin, UA Negative Negative [facility] Blood, UA Negative Negative [facility] Nitrite, UA Positive (A) Negative [facility] Urobilinogen, UA 2.0 (A) <2.0 E.U./dL [facility] Leukocyte esterase, Moderate (A) Negative [facility] Epithelial cells, UA 10 /HPF [facility] Round epithelial 1 0 - 5 /HPF [facility] cells, UA [facility] WBC, UA >200 (H) 0 - 4 /HPF [facility] RBC, UA 17 (H) 0 - 5 /HPF [facility] Bacteria, UA Few None seen [facility] WBC clumps, UA Many (A) [facility] Yeast, UA Few (A) [facility] Yeast with Few (A) [facility] pseudohyphae, UA [facility] Specimen Urine Performing Organization Address City/[facility]/Zipcode Phone Number [facility] DEPARTMENT OF PATHOLOGY [address] [facility], [place] [address] AND GENOMIC MEDICINE [facility] [address] [facility] [place] [address] HOSPITAL Amikacin level, peak (12/02/2019 10:15 AM FARM[facility] CRANBERRY) Pathologist Sig [facility] Amikacin, peak 30.6 (H) 20.0 - 25.0 ug/mL [facility] Specimen Plasma specimen Performing Organization Address City/[facility]/Zipcode Phone Number [facility] DEPARTMENT OF PATHOLOGY AND [address] [place], [place] [address] [facility] [address] [place] [address] Amikacin level, trough (12/02/2019 8:50 AM [facility] CRANBERRY) Pathologist Sig [facility] Amikacin, trough 2.4 (L) 5.0 - 10.0 ug/mL [facility] Specimen Plasma specimen Performing Organization Address City/[facility]/Zipcode Phone Number [facility] DEPARTMENT OF PATHOLOGY AND [address] [place] [address] [address] [address] [place] Renal (12/02/2019 5:59 AM F[facility] CRANBERRY) Specimen Narrative Performed At EXAMINATION: US RENAL RADIANT CLINICAL HISTORY: Renal failure acut e (kidney injury) COMPARISON: 10/13/2019 CT TECHNIQUE: Ultrasound evaluation of th e kidneys and bladder. IMPRESSION: 1.Right kidney measures 9.9 x 5.1 x 4.2 cm in the left measures 10.0 x 4.2 x 4.9 cm. 2.Numerous cysts are again demonstrated in both kidney s. The largest on the right is 4.3 cm in the right upper pole, and the l argest on the left is approximately 3.3 cm in the midpole. 3.There is mild left and moderate cortic al atrophy. Normal echogenicity. 4.No definite stones or hydronephrosis. 5.The bladder is unremarkable. [facility]-[id number] Procedure Note Interface, Radiology Results Incoming - 12/02/2019 7:19 AM [facility] CRANB[facility]Y EXAMINATION: US RENAL CLINICAL HISTORY: Renal failure acute (kidney injury) COMPARISON: 10/13/2019 CT TECHNIQUE: Ultrasound evaluation of the kidneys and bladder. IMPRESSION: 1.Right kidney measures 9.9 x 5.1 x 4.2 cm in the left measures 10.0 x 4.2 x 4.9 cm. 2.Numerous cysts are again demonstrated in both kidneys. The largest on the right is 4.3 cm in the right upper pole, and the largest on the left is approximately 3.3 cm in the midpole. 3.There is mild left and moderate cortic al atrophy. Normal echogenicity. 4.No definite stones or hydronephrosis. 5.The bladder is unremarkable. [facility]-[id number] Performing Organization Address City/State/Zipcode Phone Number [facility] [address] [place] [address] CBC with platelet and differential (12/02/2019 5:10 AM FARM[employer] CRANBERRY)Only the most recent of39 resultswithin the time period is included. WBC 6.2 4.5 - 11.0 k/uL [facility] RBC 2.97 (L) 4.20 - 5.50 [facility] m/uL [facility] HGB 9.1 (L) 12.0 - 16.0 [facility] g/dL [facility] HCT 29.6 (L) 37.0 - 47.0 % [facility] MCV 99.7 82.0 - 100.0 fL [facility] MCH 30.6 27.0 - 34.0 pg [facility] MCHC 30.7 (L) 31.0 - 37.0 [facility] g/dL [facility] RDW - SD 48.4 37.0 - 55.0 fL [facility] MPV 9.8 6.9 - 11.0 fL [facility] Platelet count 195 150 - 400 K/uL [facility] Nucleated RBC 0.00 /100 WBC [facility] Neutrophils 76.5 (H) 39.0 - 69.0 % [facility] Lymphocytes 7.9 (L) 25.0 - 45.0 % [facility] Monocytes 13.9 (H) 0.0 - 10.0 % [facility] Eosinophils 1.1 0.0 - 5.0 % [facility] Basophils 0.3 0.0 - 1.0 % [facility] Immature granulocytes 0.3 0.0 - 1.0 % [facility] Specimen Blood Performing Organization Address City/State/Zipcode Phone Number [facility] DEPARTMENT OF PATHOLOGY [address] [facility]. [place] [address] AND GENOMIC MEDICINE [address] [place] [address] [facility] Uric acid level (12/02/2019 5:10 AM FARMWORK[facility] CRANBERRY) Pathologist [facility] Uric acid 6.0 (H) 2.4 - 5.7 mg/dL [facility] Specimen Plasma specimen Performing Organization Address [facility] Phone Number [facility] DEPARTMENT OF PATHOLOGY [address] [place] [address] Creatine kinase, total (CPK) (12/02/2019 5:10 AM [facility] CRANBERRY)Only the most recent of2 resultswithin the time period is included. Pathologist [facility] Creatine kinase 27 26 - 192 U/L [facility] Specimen Plasma specimen Performing Organization Address [facility] Phone Number [facility] DEPARTMENT OF PATHOLOGY [address] [place] [address] Comprehensive metabolic panel (12/02/2019 5:10 AM FARMWORK[facility] CRANBERRY)Only the most recent of24 resultswithin the time period is included. Pathologist [facility] Sodium 140 135 - 148 mEq/L [facility] Potassium 4.5 3.5 - 5.0 mEq/L [facility] Chloride 110 98 - 112 mEq/L [facility] CO2 21 (L) 24 - 31 mEq/L [facility] Anion gap 9@ANIO 7 - 15 mEq/L [facility] BUN 12 8 - 23 mg/dL [facility] Creatinine 1.03 (H) 0.50 - 0.90 [facility] mg/dL [facility] Glucose 97 65 - 99 mg/dL [facility] Calcium 8.9 8.8 - 10.2 [facility] mg/dL [facility] Protein 5.2 (L) 6.3 - 8.3 g/dL [facility] Albumin 3.0 (L) 3.5 - 5.0 g/dL [facility] A/G ratio 1.4 0.7 - 3.8 [facility] Alkaline phosphatase 100 35 - 104 U/L [facility] AST 13 10 - 35 U/L [facility] ALT 7 5 - 50 U/L [facility] Total bilirubin 0.3 0.2 - 1.2 mg/dL [facility] Specimen Plasma specimen Performing Organization Address [facility] Phone Number [facility] DEPARTMENT OF PATHOLOGY [address] [place] [address] Protein, urine, random (12/01/2019 7:30 PM [facility] CRANBERRY) Pathologist Sig nature Total volume, urine 30 mL [facility] Urine protein 102 mg/dL [facility] Urine protein excretion 31 mg/vol [facility] Specimen Urine Performing Organization Address [facility] Phone Number [facility] DEPARTMENT OF PATHOLOGY [address] [place] [address] Creatinine level, urine, random (12/01/2019 7:30 PM [facility] CRANBERRY) Pathologist Sig nature Total volume, urine 30 mL [facility] Urine creatinine 24 mg/dL [facility] Urine creatinine excretion 7 mg/vol [facility] Specimen Urine Performing Organization Address [facility] Phone Number [facility] DEPARTMENT OF PATHOLOGY [address] [place] [address] Lactic acid level, SEPSIS - Now and repeat 2x every 3 hours (12/01/2019 7:30 AM [facility] CRANBERRY)Only the most recent of17 resultswithin the time period is included. Pathologist Sig nature Lactic acid 1.9 0.5 - 2.2 mmol/L [facility] Specimen Plasma specimen Performing Organization Address City/[facility] Phone Number [facility] DEPARTMENT OF PATHOLOGY [address] [place] [address] Blood culture, aerobic & anaerobic (12/01/2019 5:05 AM [facility] CRANBERRY)Only the most recent of16 resultswithin the time period is included. Pathologist [facility] Blood culture No growth after 5 days of incubation. MARYLOU LABOY isolate Comment: HOSPITAL Specimen Information Specimen Source: Blood Specimen Site: Wrist, right Specimen Blood - Wrist, right Performing Organization Address City/[facility] Phone Number [facility] DEPARTMENT OF PATHOLOGY AND [address] [place], [place] [address] [facility] [address] [place] [address] Partial thromboplastin time, activated (12/01/2019 4:35 AM F[employer]WORKER CRANBERRY)Only the most recent of2 resultswithin the time period is included. [facility] PTT 25.3 23.0 - 36.0 [facility] Comment: [facility] PTT therapeutic range for unfractionated heparin is HOSPITAL 61.0-112.0 seconds which corresponds to Anti-Xa 0.3-0.7 U/ml. Specimen Blood Performing Organization Address [facility] Phone Number [facility] DEPARTMENT OF PATHOLOGY [phone] [place] [address] Prothrombin time with INR (12/01/2019 4:35 AM FARMWORKER CRANBERRY)Only the most recent of2 resultswithin the time period is included. [facility] Prothrombin time 13.7 11.5 - 14.5 [facility] INR 1.1 P[facility]QU[facility] Comment: NARDA LOZANO [facility] International Normalized Ratio (INR) is a therapeu [facility] monitoring tool for patients who are stable on oral anticoagulant therapy. An INR of 2.0-3.0 is suggested for deep vein thrombosis/pulmonary embolism. Specimen Blood Performing Organization Address [facility] Cent[facility] Phone Number [facility] DEPARTMENT OF PATHOLOGY [id number] [place] [address] Gastrointestinal panel (11/21/2019 8:46 PM FARMWORK[facility] CRANBERRY)Only the most recent of2 results within the time period is included. [facility] Gastrointestinal panel Negative for all pathogens tested: PEMAQUID Negative for Salmonella [place] Negative for Campylobacter [facility] Negative for Diarrheagenic E coli/Shigella Negative for Shiga-like toxin-producing E coli Negative for Plesiomonas shigelloides Negative for Yersinia enterocolitica Negative for Vibrio species Negative for Clostridium difficile (Toxin A/B) Negative for Cryptosporidium Negative for Giardia lamblia Negative for Cyclospora cayeteanensis Negative for Entamoeba histolytica Negative for Adenovirus F 40/41 Negative for Astrovirus Negative for Norovirus GI/GII Negative for Rotavirus A Negative for Sapovirus Negative for Clostridium difficile toxin Negative for E coli 0157 This real-time PCR assay detects the presence of nucle ic acids (RNA or DNA) for the gastrointestinal pathogens listed. A result of "Not-detected" does not exclude the possib ility of the presence of one or more pathogens at concentrat ions less than the detectable limits of the assay. Comment: Specimen Information Specimen Source: Stool Specimen Site: Nonpreserved Specimen Stool - Nonpreserved Performing Organization Address City/State/Zipcode Phone Number [facility] DEPARTMENT OF PATHOLOGY AND [address] [place], [place] [address] [place] [address] [address] Troponin (11/21/2019 5:20 PM FARMWORKER CRANBERRY)Only the most recent of9 resultswithin the time period is included. Troponin <0.006 0.000 - 0.040 [facility] Comment: ng/mL [facility] In patients suspected of having a myocardial infarctio n, along with all other appropriate clinical measures and actions includ ing ECG and other diagnostics as appropriate, measure Ultra TnI at 0 hrs and at 3 hrs. Myocardial infarction VERY LIKELY The 0 hr TnI level is > 0.10 ng/mL Myocardial infarction LIKELY The 0 hr TnI level is > 0.04 ng/mL and 3 hr level is i ncreased or decreased by at least 0.020 ng/mL Myocardial infarction VERY UNLIKELY Both the 0 hr and 3 hr TnI levels <= 0.04 ng/mL(within normal limits) OR 0 hr is > 0.04 ng/mL and 3 hr is increased OR decreased by less than 0.020 ng/mL Specimen Plasma specimen Performing Organization Address City/[facility]/Zipcode Phone Number [facility] DEPARTMENT OF PATHOLOGY [address] [facility] [address] AND [facility] [phone] [place] [address] X [address] HOSPITAL ECG 12 lead (11/21/2019 11:26 AM FARM[employer]ER CRANBERRY)Only the most recent of7 resultswithin the time period is included. Pathologist Sig nature Ventricular rate 74 [facility] Atrial rate 74 [facility] DC interval 178 [facility] QRSD interval 70 [facility] QT interval 400 [facility] QTC interval 444 [facility] P axis 1 45 [facility] QRS axis 1 -4 [facility] T wave axis 20 [facility] EKG impression Normal sinus [facility] rhythm-Minimal voltage criteria for LVH, may be normal variant-Borderline ECG-In automated comparison with ECG of 28-OCT-2019 09:27,-QT has shortened-Electronicall y Signed By Roberto May MD ([id number]) on 11/21/2019 3:47:50 PM Specimen Narrative Performed At This result has an attachment that is no t available. Performing Organization Address [facility] Phone Number [facility] MUSE [address] [place] [address] Gram stain (11/20/2019 3:48 PM FARMWORKER CRANBERRY)Only the most recent of15 resultswithin the time period is included. Gram stain result Occasional WBC's [facility] Moderate Gram negative rods [facility] Comment: Specimen Information Specimen Source: Urine Specimen Site: Catheterized Specimen Urine - Catheterized Performing Organization Address City/[facility]/Zipcode Phone Number [facility] DEPARTMENT OF PATHOLOGY AND [address] [place], [place] [address] [facility] [address] [place] [address] Lipase level (11/19/2019 5:20 PM FARMWORKER CRANBERRY)Only the most recent of4 resultswithin the time period is included. Pathologist Sig nature Lipase 7 (A) 13 - 60 U/L [facility] Specimen Plasma specimen Performing Organization Address City/State/Zipcode Phone Number [facility] DEPARTMENT OF PATHOLOGY [address] [facility], [place] [address] AND GENOMIC MEDICINE [facility] [address] [facility] [place] [address] [facility] [address] Lumbar Spine Wo Contrast (10/28/2019 2:52 PM FARMWORKER CRANBERRY) Specimen Narrative Performed At EXAMINATION: CT LUMBAR SPINE WO CONTRA ST HM [facility] CLINICAL HISTORY: Back pain risk factors (osteopor osis or chronic steroid use or elderly). COMPARISON: None. TECHNIQUE: Multiple axial CT images of the lumbar spin e are obtained without the use of intravenous contrast. Coronal and s agittal 3-D reconstructions are obtained. CT scans are performed using radiation dose reduction techniques. Technical factors are evaluated and adjusted to ensu re appropriate moderation of exposure. Automated dose management te chnology is applied to adjust radiation exposure whi le achieving a diagnostic quality image. DISCUSSION: The lowest fully formed disc space is presumed to be L 5-S1 for naming purposes. Dextroconvex scoliosis of lumb ar spine. There is compression fracture of L1 associated loss of 40-50% of vertebral body height and extension with in the superior endplate. Pre and paravertebral soft tissues are m aintained. Close approximation and contact of adjacent spinous pr ocesses (kissing spine) with resultant enlargement, flattening, and lonnie ctive sclerosis of apposing interspinous surfaces. Multilevel degenerative changes noted within the spine . Evaluation of individual intervertebral disc demonstra maureen the following findings: L5-S1: Disc bulge with superimposed posterior disc pro trusion. Bilateral facet arthropathy. There is srhy-ho-insfrzud neural fo raminal stenosis. The central canal is patent. L4-L5:Loss of disc height and vacuum phenomena within the disc. Bilateral facet arthropathy. There is mild right and m oderate left neural foraminal stenosis. The central c anal is patent. L3-L4:Loss of disc height and posterior disc protrusio n. Bilateral facet arthropathy. There is moderate left and mild right isaura ral foraminal stenosis. The central canal is patent L2-L3:Anterior spondylosis and bilateral facet arthrop athy. There is mild neural foraminal stenosis. The cent ral canal is patent L1-L2:Loss of disc height and facet arthropathy. The c entral canal and neural foramina are patent. IMPRESSION: 1. There is chronic compression fracture of L1 extendi ng within the superior endplate associated loss of 40% of vertebral body heights. 2. Multilevel degenerative disc disease and facet arth ropathy associated dextroconvex scoliosis of lumbar spine resulting in mi qt-xg-iblgabpn neural foraminal stenosis as described a fran [id number] Procedure Note Hm Interface, Radiology Results Incoming - 10/28/2019 3:05 PM [facility] CRANB[facility] EXAMINATION: CT LUMBAR SPINE WO CONTRAST CLINICAL HISTORY: Back pain risk facto rs (osteoporosis or chronic steroid use or elderly). COMPARISON: None. TECHNIQUE: Multiple axial CT images of t he lumbar spine are obtained without the use of intravenous contrast. Coronal and sagittal 3-D reconstructions are obtained. CT scans are performed using radiation d ose reduction techniques. Technical factors are evaluated and adjusted to ensure appropriate moderation of exposure. Automated dose management technology is applied to adjust radiation exposure while achie ving a diagnostic quality image. DISCUSSION: The lowest fully formed disc space is pr esumed to be L5-S1 for naming purposes. Dextroconvex scoliosis of lumbar spine. There is compression fracture of L1 asso ciated loss of 40-50% of vertebral body height and extension within the superior endplate. Pre and paravertebral soft tissues are m aintained. Close approximation and contact of adjac ent spinous processes (kissing spine) with resultant enlargement, flattening, and reactive sclerosis of apposing interspinous surfaces. Multilevel degenerative changes noted wi thin the spine. Evaluation of individual intervertebral disc demonstrates the following findings: L5-S1: Disc bulge with superimposed post erior disc protrusion. Bilateral facet arthropathy. There is ftig-eh-fjhwjkqu neural foraminal stenosis. The central canal is patent. L4-L5:Loss of disc height and vacuum phe nomena within the disc. Bilateral facet arthropathy. There is mild right and moderate left neural foraminal stenosis. The central canal is patent. L3-L4:Loss of disc height and posterior disc protrusion. Bilateral facet arthropathy. There is moderate left and mild right neural foraminal stenosis. The central canal is patent L2-L3:Anterior spondylosis and bilateral facet arthropathy. There is mild neural foraminal stenosis. The central canal is patent L1-L2:Loss of disc height and facet arth ropathy. The central canal and neural foramina are patent. IMPRESSION: 1. There is chronic compression fracture of L1 extending within the superior endplate associated loss of 40% of vertebral body heights. 2. Multilevel degenerative disc disease and facet arthropathy associated dextroconvex scoliosis of lumbar spine resulting in grop-lh-houbemvj neural foraminal stenosis as described above [id number] Performing Organization Address [facility] Cent[facility]ode Phone Number [facility] [address] [place] [address] XR Shoulder 2+ Vw Right (10/28/2019 7:11 AM [facility]WORK[facility] CRANBERRY) Specimen Narrative Performed At EXAMINATION: XR SHOULDER 2 VW RIGHT HM [facility] CLINICAL HISTORY: shoulder pain COMPARISON: Most recent [facility] prior. IMPRESSION: There is no acute fracture. Joint spaces are preserved . Soft tissues are unremarkable. [facility]-[id number] Procedure Note Interface, Radiology Results Incoming - 10/28/2019 8:14 AM [facility] CRAN[facility] EXAMINATION: XR SHOULDER 2 VW RIGHT CLINICAL HISTORY: shoulder pain COMPARISON: Most recent [facility] prior. IMPRESSION: There is no acute fracture. Joint spaces are preserved. Soft tissues are unremarkable. [facility]-[id number] Performing Organization Address [facility] Centerconc Phone Number [facility] [address] [place] [address] XR Pelvis 1 Or 2 Vw (10/28/2019 6:18 AM [facility] CRANB[facility]) Specimen Narrative Performed At EXAMINATION: XR PELVIS 1 OR 2 VW HM [facility] CLINICAL HISTORY: fall COMPARISON: Most recent [facility] prior. IMPRESSION: Post-ORIF changes involving the proximal right femur, without evidence of loosening or hardware failure. No acute fracture. O ld right femoral neck fracture is present. There are surgical raphael i n the right pelvis. There is moderate degenerative c hange at the right hip. [facility]-[id number] Procedure Note Interface, Radiology Results Incoming - 10/28/2019 8:12 AM [facility] CR[facility] EXAMINATION: XR PELVIS 1 OR 2 VW CLINICAL HISTORY: fall COMPARISON: Most recent [facility] prior. IMPRESSION: Post-ORIF changes involving the proximal right femur, without evidence of loosening or hardware failure. No acute fracture. Old right femoral neck fracture is present. There are surgical raphael in the right pelvis. There is moderate degenerative change at the right hip. [facility]-[id number] Performing Organization Address City/[facility]/Zipcode Phone Number [facility] [address] [place] [address] Smear review (10/28/2019 5:40 AM [facility] CRANBERR[facility])Only the most recent of2 resultswithin the time period is included. Platelet slide review Maritza slt decr (A) [facility] Anisocytosis Moderate [facility] Ovalocytes Moderate [facility] Specimen Performing Organization Address City/[facility]/Zipcode Phone Number [facility] DEPARTMENT OF PATHOLOGY [address] [facility] [address] AND [facility] [address] [facility] [place] [address] HOSPITAL C difficile toxin (10/16/2019 4:20 AM [facility] CRANBERR[facility])Only the most recent of2 results within the time period is included. Clostridium Positive for C. difficile toxin (A) [facility] difficile toxin Comment: HOSPITAL Specimen Information Specimen Source: Stool Specimen Site: Nonpreserved Specimen Stool - Nonpreserved Performing Organization Address City/[facility]/Zipcode Phone Number [facility] DEPARTMENT OF PATHOLOGY AND [address] [place] [address] [facility] [address] [place] [address] CT Abdomen Pelvis W Contrast (10/13/2019 3:18 PM [facility] CRANBERRY) Specimen Narrative Performed At EXAMINATION: CT ABDOMEN PELVIS W CONTR AST [facility] CLINICAL HISTORY: Diffuse abdominal tenderness with diarrhea and history of recent prolonged antibiotic u se TECHNIQUE: Multiple axial images of the abdomen and pe lvis were obtained following intravenous administration of iodinated cont rast. CT imaging was performed with iterative reconstruction technique and/or automated exposure control to reduce radiation dose. COMPARISON: 06/03/2019 IMPRESSION: ABDOMEN: 1. Liver: The liver is normal. No focal mass. 2. Gallbladder: The gallbladder is surgically absent. Minimal intrahepatic and extra hepatic biliary p rominence. 3. Spleen: The spleen is not enlarged. 4. Pancreas: Atrophic 5. Adrenal Glands: The adrenal glands ar e unremarkable. 6. Kidneys: Multiple bilateral renal cysts the largest measuring 4.5 cm in the right kidney. 7. Abdominal Aorta: Calcification of the abdominal aor ta is noted. No aneurysm. 8. Nodes: No enlarged retroperitoneal or mesenteric lymphadenopathy. 9. Bowel: Status post gastric bypass. Patulous [place] li mb. No bowel obstruction or findings to suggest an internal hernia. Small fat-containing umbilical hernia. Fluid within the excl uded portion of the stomach nonspecific. 10. Ascites: No ascites or fluid collect ions. PELVIS: 1.Pelvis: No mass, fluid collection or significant earl nopathy. Status post hysterectomy. 2. Bones: Degenerative changes of the osseous structur es. No suspicious lesions. Hardware in the right hip. 3. Lung Bases: Unremarkable SUMMARY: 1.No acute findings in the abdomen or pe lvis. [facility]-[id number] Procedure Note Hm Interface, Radiology Results Incoming - 10/13/2019 3:34 PM [facility] CRANB[facility] EXAMINATION: CT ABDOMEN PELVIS W CONTRAST CLINICAL HISTORY: Diffuse abdominal ten derness with diarrhea and history of recent prolonged antibiotic use TECHNIQUE: Multiple axial images of the abdomen and pelvis were obtained following intravenous administration of iodinated contrast. CT imaging was performed with iterative reconstruction technique and/or automated exposure control to reduce radiation dose. COMPARISON: 06/03/2019 IMPRESSION: ABDOMEN: 1. Liver: The liver is normal. No focal mass. 2. Gallbladder: The gallbladder is surgi roderick absent. Minimal intrahepatic and extra hepatic biliary prominence. 3. Spleen: The spleen is not enlarged. 4. Pancreas: Atrophic 5. Adrenal Glands: The adrenal glands ar e unremarkable. 6. Kidneys: Multiple bilateral renal cys ts the largest measuring 4.5 cm in the right kidney. 7. Abdominal Aorta: Calcification of the abdominal aorta is noted. No aneurysm. 8. Nodes: No enlarged retroperitoneal or mesenteric lymphadenopathy. 9. Bowel: Status post gastric bypass. Pa tulous [place] limb. No bowel obstruction or findings to suggest an internal hernia. Small fat-containing umbilical hernia. Fluid within the excluded portion of the stomach nonspecific. 10. Ascites: No ascites or fluid collect ions. PELVIS: 1.Pelvis: No mass, fluid collection or s ignificant adenopathy. Status post hysterectomy. 2. Bones: Degenerative changes of the os seous structures. No suspicious lesions. Hardware in the right hip. 3. Lung Bases: Unremarkable SUMMARY: 1.No acute findings in the abdomen or pe lvis. [facility]-[id number] Performing Organization Address City/State/Zipcode Phone Number [facility] [address] [place] [address] ECG ED Preliminary Interpretation - Not an Order (10/13/2019 12:47 PM [facility]ARMWORK[facility] CRANBERRY)Only the most recent of3 resultswithin the time period is included. Narrative Performed At Sada Foster MD 10/13 9:10 PM ECG ED Preliminary Interpretation - Not an Order Performed by: Levi Noel PA Authorized by: Sada Foster MD ECG reviewed by ED Physician in the abse nce of a linotype machinist apprentice: yes Previous ECG: Previous ECG: Unavailable Interpretation: Interpretation: normal Rate: ECG rate: 70 ECG rate assessment: normal Rhythm: Rhythm: sinus rhythm Ectopy: Ectopy: none QRS: QRS intervals: Normal Conduction: Conduction: normal ST segments: ST segments: Normal T waves: T waves: normal CT Head Wo Contrast (07/13/2019 2:09 PM CDT) Specimen Narrative Performed At EXAMINATION: CT HEAD WO CONTRAST [facility] CLINICAL HISTORY: headache COMPARISON: CT of the head dated 2017 FINDINGS: There is no evidence of acute hemorrhage, mass lesion, or midline shift. The pedroza-white matter differentiation is preserved wit h no evidence of acute territorial infarction. Ventricles, sulci, and c isterns are age-appropriate in size and configuratio n. There is no extra-axial fluid collection . Visualized paranasal sinuses and mastoid air cells are clear. Bones, orbits, and soft tissues are unremarkabl e All CT images were acquired using low-dose technique w ith automated exposure control. IMPRESSION: No acute intracranial hemorrhage or mass effect. [facility]-[id number] Procedure Note Hm Interface, Radiology Results Incoming - 07/13/2019 2:14 PM CDT EXAMINATION: CT HEAD WO CONTRAST CLINICAL HISTORY: headache COMPARISON: CT of the head dated 2017 FINDINGS: There is no evidence of acute hemorrhage , mass lesion, or midline shift. The pedroza-white matter differentiation is preserved with no evidence of acute territorial infarction. Ventricles, sulci, and cisterns are age-appropriate in size and configuratio n. There is no extra-axial fluid collection . Visualized paranasal sinuses and mastoid air cells are clear. Bones, orbits, and soft tissues are unremarkable All CT images were acquired using low-do se technique with automated exposure control. IMPRESSION: No acute intracranial hemorrhage or mass effect. [facility]-[id number] Performing Organization Address City/State/Zipcode Phone Number [employer] [address] [place] [address] Respiratory pathogen panel (07/13/2019 1:58 PM CDT) Pathologist [facility] Respiratory Negative for all pathogens tested: [place] pathogen panel Negative for Adenovirus [place] Negative for Coronavirus HKU1 [facility] Negative for Coronavirus NL63 Negative for Coronavirus [...] real-time PCR assay detects the presence of nucle ic acids (RNA or DNA) for the respiratory pathogens liste d. A result of "Not-detected" does not exclude the possib ility of the presence of one or more pathogens at concentrat ions less than the detectable limits of the assay. Comment: Specimen Information Specimen Source: Nares Specimen Site: Left Specimen Nares - Left Performing Organization Address City/[facility]/Zipcode Phone Number [facility] DEPARTMENT OF PATHOLOGY AND [address] [place], [place] [address] [address] Influenza antigen test, reflex negative to RPP (07/13/2019 1:58 PM CDT) [facility] Influenza antigen Negative for Influenza A/B antigen. [facility] Comment: [place] Specimen Information [facility] Specimen Source: Nares Specimen Site: Left Specimen Nares - Left Performing Organization Address City/State/Zipcode Phone Number [facility] DEPARTMENT OF PATHOLOGY [address] [facility], [place] [address] AND [facility] [address] [facility] [address] [facility] Group A strep, rapid antigen (07/13/2019 1:58 PM CDT) [facility] A strep, Negative for Group A Streptococcus antigen. [facility] rapid antigen Comment: [place] result Specimen Information [facility] Specimen Source: Throat Specimen Site: Not otherwise specified Specimen Throat - Not otherwise specified Performing Organization Address City/[facility]/Zipcode Phone Number [facility] DEPARTMENT OF PATHOLOGY [address] [facility] [place] [address] AND [facility] [id number] [place] [address] X [address] HOSPITAL Strep screen culture (07/13/2019 1:58 PM CDT) Strep screen No beta hemolytic Streptococci isolated H [place] culture isolate Comment: HOSPITAL Specimen Information Specimen Source: Throat Specimen Site: Not otherwise specified Specimen Throat - Not otherwise specified Performing Organization Address City/[facility]/Zipcode Phone Number [facility] DEPARTMENT OF PATHOLOGY AND [address] [place] [address] [facility] [address] [place] [address] Manual differential (07/01/2019 5:30 AM CDT)Only the most recent of4 results within the time period is included. Manual differential PERFORMED [facility] Neutrophils 62.0 39.0 - 69.0 % [facility] Lymphocytes 12.0 (L) 25.0 - 45.0 % [facility] Monocytes 16.0 (H) 0.0 - 10.0 % [facility] Eosinophils 6.0 (H) 0.0 - 5.0 % [facility] Basophils 2.0 (H) 0.0 - 1.0 % [facility] Myelocytes 2 % [facility] Platelet slide review Maritza slt decr (A) [facility] Anisocytosis Moderate [facility] Polychromasia Moderate [facility] Spherocytes Occasional [facility] Ovalocytes Moderate [facility] Specimen Performing Organization Address City/[facility]/Zipcode Phone Number [facility] DEPARTMENT OF PATHOLOGY [address] [facility] [place] [address] [address] [facility] [address] [facility] X [address] HOSPITAL XR Lumbar Spine 2 Or 3 Vw (06/23/2019 3:27 PM CDT) Specimen Narrative Performed At EXAMINATION: XR LUMBAR SPINE 2 OR 3 VW HM [facility] CLINICAL HISTORY: Back pain risk factors (osteoporos is or chronic steroid use or elderly) COMPARISON: CT of abdomen and pelvis d ated April 10, 2019 IMPRESSION: Frontal and lateral views of the lumbar spine were obt ained. There is a compression fracture at L1 with 50% loss of vertebral body height. There is mild compression loss of vertebral body height at T 10 and T11 by 10%. Comparison with prior CT abdomen and pelvis dated April 10, 2019 shows that these compressi on deformities are stable. No new acute fractures are appreciated. Visual ized upper sacrum is intact. There is mild rightward scoliosis at L4. Vi sualized upper sacrum is grossly intact. [facility]-[id number] Procedure Note Interface, Radiology Results Incoming - 06/23/2019 4:19 PM CDT EXAMINATION: XR LUMBAR SPINE 2 OR 3 VW CLINICAL HISTORY: Back pain risk factor s (osteoporosis or chronic steroid use or elderly) COMPARISON: CT of abdomen and pelvis da john April 10, 2019 IMPRESSION: Frontal and lateral views of the lumbar spine were obtained. There is a compression fracture at L1 with 50% loss of vertebral body height. There is mild compression loss of vertebral body height at T10 and T11 by 10%. Comparison with prior CT abdomen and pelvis dated April 10, 2019 shows that t hese compression deformities are stable. No new acute fractures are appreciated. Visualized upper sacrum is intact. There is mild rightward scoliosis at L4. Visualized upper sacrum is grossly intact. [facility]-[id number] Performing Organization Address City/State/Zipcode Phone Number [facility] [address] [place] [address] XR Abdomen 1 Vw (06/07/2019 12:07 PM CDT) Specimen Narrative Performed At EXAMINATION: XR ABDOMEN 1 VW [facility] CLINICAL HISTORY: constipation COMPARISON: None. IMPRESSION: 1. Nonobstructive bowel gas pattern. 2. Status post cholecystectomy. 3. Advanced degenerative changes of th e visualized osseous structures. 4. Status post intramedullary cris fixation of the ri ght femur, partially visualized, with no perihardware lucency or evidence of hardware failure. Surgical clips seen in the right deep pelvis. 5. The visualized lung bases are clear . [facility]-[id number] Procedure Note Interface, Radiology Results Incoming - 06/07/2019 12:18 PM CDT EXAMINATION: XR ABDOMEN 1 VW CLINICAL HISTORY: constipation COMPARISON: None. IMPRESSION: 1. Nonobstructive bowel gas pattern. 2. Status post cholecystectomy. 3. Advanced degenerative changes of the visualized osseous structures. 4. Status post intramedullary cris fixat ion of the right femur, partially visualized, with no perihardware lucency or evidence of hardware failure. Surgical clips seen in the right deep pelvis. 5. The visualized lung bases are clear. [facility]-[id number] Performing Organization Address City/State/Zipcode Phone Number [facility] [address] [place] [address] CT Renal Stone Protocol (06/03/2019 2:45 PM CDT)Only the most recent of2 resultswithin the time period is included. Specimen Narrative Performed At EXAMINATION: CT [facility] CL[facility]ICAL [facility]: pelvic pain TECHNIQUE: Multiple axial images of the abdomen and pelvis were obtained without intravenous administration of iodinat ed contrast. Sagittal and coronal computerized reformatted images w ere also obtained. The lack of intravenous contrast reduces the sensitivity of detecting solid organ dis ease. CT imaging was performed with iterative reconstruction techniques and/or automated exposure control to reduce rad iation dose. COMPARISON: 05/26/2019 FINDINGS: Several renal cysts are again seen bilaterally, charac terization suboptimal without contrast. A 1 cm isodense lesion in the left upper pole is stable and probably a proteinace ous/hemorrhagic cysts. No nephrolithiasis, hydronephrosis, or p erinephric stranding. Bladder is nondistended. Uterus is absent. No adnexal mass. Status post [place]-en-Y gastric bypass surgery. Small hi atal hernia. No bowel obstruction. Appendix is normal. No free fluid or free air. Liver and spleen unremarkab le. Pancreatic atrophy. Gallbladder is absent. Moderately calcified distal aorta withou t aneurysm. Osteopenic and degenerative changes in the bones. Pron ounced right hip osteoarthritis. Intramedullary nail partly seen in the right femur. Stable moderate L1 compression deformity . IMPRESSION: No evidence of acute process. [facility]-[id number] Procedure Note Hm Interface, Radiology Results Incoming - 06/03/2019 2:55 PM CDT EXAMINATION: CT RENAL STONE PROTOCOL CLINICAL HISTORY: pelvic pain TECHNIQUE: Multiple axial images of the abdomen and pelvis were obtained without intravenous administration of iodinated contrast. Sagittal and coronal computerized reformatted images were also obtained. The lack of intravenous contrast reduces the sensitivity of detecting solid organ dis ease. CT imaging was performed with iterative reconstruction techniques and/or automated exposure control to reduce radiation dose. COMPARISON: 05/26/2019 FINDINGS: Several renal cysts are again seen bilat erally, characterization suboptimal without contrast. A 1 cm isodense lesion in the left upper pole is stable and probably a proteinaceous/hemorrhagic cysts. No nephrolithiasis, hydronephrosis, or p erinephric stranding. Bladder is nondistended. Uterus is absent. No adnexal mass. Status post [place]-en-Y gastric bypass lesley kevin. Small hiatal hernia. No bowel obstruction. Appendix is normal. No free fluid or free air. Liver and spl een unremarkable. Pancreatic atrophy. Gallbladder is absent. Moderately calcified distal aorta withou t aneurysm. Osteopenic and degenerative changes in formerly [facility] bones. Pronounced right hip osteoarthritis. Intramedullary nail partly seen in the right femur. Stable moderate L1 compression deformity. IMPRESSION: No evidence of acute process. [facility]-[id number] Performing Organization Address City/[facility]/Zipcode Phone Number [employer] [address] [place] [address] Magnesium level (05/15/2019 5:20 AM CDT) Pathologist Sig nature Magnesium 2.0 1.6 - 2.4 mg/dL [facility] Specimen Plasma specimen Performing Organization Address City/[facility]/Zipcode Phone Number [facility] DEPARTMENT OF PATHOLOGY [address] [facility], X [address] AND GENOMIC MEDICINE [facility] [address] [facility] X [address] HOSPITAL IR PICC Placement (04/16/2019 2:03 PM CDT) Specimen Narrative Performed At Procedure [employer] Placement of a right upper extremity PIC C. Clinical Indication Central venous access for IV antibiotics Anesthesia Lidocaine 1%. Sedation None Technique Written informed consent was obtained prior to the pro cedure. All elements of maximal sterile barrier technique were fol lowed. The right upper extremity was sterilely prepared and draped in formerly [facility] routine manner. Lidocaine 1% was used for local anesthet ic. Using real-time ultrasound guidance, a 21-gauge microp uncture needle was used to access the right brachial vein. A 0.018 inch g uidewire was advanced centrally to the right atrium under fluorosco py. The needle was removed and a 5.5-Armenian peel-away sheat h was then placed. Under ultrasound guidance, documenta tion of vessel patency, needle access with permanent recording, and r eporting are performed followed by placement of a sheath in the rig ht brachial vein. A 38 cm long 5-Armenian dual-lumen P ower PICC was then deployed over the guidewire and through the p eel-away sheath. The catheter tip was placed at the right atrium/superi or vena cava junction under fluoroscopic guidance. All ports were t ested and demonstrate adequate flow. The catheter was secured to then skin using 2-0 silk suture. The patient tolera john the procedure well. Complications None. Radiation dose Ka,r = 13 mGy Impression: Successful fluoroscopic-guided placement of a 38 cm lo ng 5 Armenian dual-lumen Power PICC via the right brachial vein. The catheter tip lies at the right atrium/superior vena cava j unction and is ready for use. [facility]-[id number] Procedure Note Hm Interface, Radiology Results Incoming - 04/16/2019 2:15 PM CDT Procedure Placement of a right upper extremity PIC C. Clinical Indication Central venous access for IV antibiotics Anesthesia Lidocaine 1%. Sedation None Technique Written informed consent was obtained pr ior to the procedure. All elements of maximal sterile barrier technique were followed. The right upper extremity was sterilely prepared and draped in the routine manner. Lidocaine 1% was used for local anesthet ic. Using real-time ultrasound guidance, a 2 1-gauge micropuncture needle was used to access the right brachial vein. A 0.018 inch guidewire was advanced centrally to the right atrium under fluoroscopy. The needle was removed and a 5.5-Armenian peel-away sheat h was then placed. Under ultrasound michele nce, documentation of vessel patency, needle access with permanent recording, and reporting are performed followed by placement of a sheath in the right brachial vein. A 38 cm long 5-Armenian dual-lumen Power PIC C was then deployed over the guidewire and through the peel-away sheath. The catheter tip was placed at the right atrium/superior vena cava junction under fluoroscopic guidance. All ports were tested and demonstrate adequate flow. The catheter was secured to then skin using 2-0 silk suture. The patient tolerated the procedure well. Complications None. Radiation dose Ka,r = 13 mGy Impression: Successful fluoroscopic-guided placement of a 38 cm long 5 Armenian dual-lumen Power PICC via the right brachial vein. The catheter tip lies at the right atrium/superior vena cava junction and is ready for use. [facility]-[id number] Performing Organization Address City/[facility]/Zipcode Phone Number [facility] [address] [place] [address] Procalcitonin (04/14/2019 1:00 PM CDT) Procalcitonin 0.39 (H) <=0.07 ng/mL [facility] Comment: INTERPRETIVE INFORMATION: Procalcitonin Procalcitonin > 2.00 ng/mL: Procalcitonin levels above 2.00 ng/mL on the first day of ICU admission represent a high risk for progress ion to severe sepsis and/or septic shock. Procalcitonin < 0.50 ng/mL: Procalcitonin levels below 0.50 ng/mL on the first day of ICU admission represent a low risk for progressi on to severe sepsis and/or septic shock. If the procalcitonin measurement is performed shortly after the systemic infection process has started (usually less t arroyo 6 hours), these values may still be low. As various non- infectious conditions are known to induce procalcitonin as well, procalcitonin levels between 0.5 ng/mL and 2.00 ng/mL should be reviewed carefully to take into account the specific c linical background and condition(s) of the individual patient. Performed at: [facility] [address] [facility] [address] Specimen Serum Performing Organization Address City/[facility]ode Phone Number [facility] [address] [place] [address] [facility] [address] [place] [address] Lactic acid level (04/14/2019 1:00 PM CDT) Pathologist [facility] Lactic acid 1.7 0.5 - 2.2 mmol/L [facility] Specimen Plasma specimen Performing Organization Address City/[facility]/Zipcode Phone Number [facility] DEPARTMENT OF PATHOLOGY [address] [facility], X [address] AND GENOMIC MEDICINE [facility] [address] [facility], X [address] [facility] CBC hemogram (04/11/2019 5:18 AM CDT)Only the most recent of2 resultswithin the time period is included. Pathologist Sig nature WBC 5.8 4.5 - 11.0 k/uL [facility] RBC 2.78 (L) 4.20 - 5.50 m/uL [facility] HGB 8.5 (L) 12.0 - 16.0 g/dL [facility] HCT 28.3 (L) 37.0 - 47.0 % [facility] MCV 101.8 (H) 82.0 - 100.0 fL [facility] MCH 30.6 27.0 - 34.0 pg [facility] MCHC 30.0 (L) 31.0 - 37.0 g/dL [facility] RDW - SD 57.6 (H) 37.0 - 55.0 fL [facility] MPV 10.8 6.9 - 11.0 fL [facility] Platelet count 141 (L) 150 - 400 K/uL [facility] Nucleated RBC 0.00 /100 WBC [facility] Specimen Blood Performing Organization Address City/State/Zipcode Phone Number [facility] DEPARTMENT OF PATHOLOGY [address] [facility] X [address] AND [facility]IC MEDICINE [facility] [address] [facility] X [id number] [place] [address] CT Abdomen Pelvis Wo Contrast (04/10/2019 8:52 PM CDT) Specimen Narrative Performed At EXAMINATION: CT ABDOMEN PELVIS WO CONT RAST HM RADIANT CLINICAL HISTORY: Flank pain recurre nt stone disease suspected TECHNIQUE: Multiple axial images of the abdomen and pe lvis were obtained without intravenous administration of iodinated contra st. Sagittal and coronal computerized reformatted images were also obta ined. The lack of intravenous contrast reduces the sensitivity of detecting solid organ dis ease. CT imaging was performed with iterative reconstruction techniques and/or automated exposure control to reduce rad iation dose. COMPARISON: January 31, 2019 CT scan FINDINGS: Abdomen: Postoperative changes in the stomach and small bowel. There is increase in the amount gas and feces in the colon. No dispropor tionate dilatation of small bowel loops is seen. There has been a cholecystectomy. No focal lesions are seen in the liver, spleen, pancre as, or adrenal glands. The abdominal aorta is of normal caliber. There are no enlarged retroperitoneal lymph nodes. There are multiple cysts in the right kidney ranging i n size up to 4.7 cm. These are not well characterized without intraveno us contrast. There is no calculus or hydronephrosis on the right. Pelvis: 1. Artifact generated by hardware in the right hip. No pelvic sidewall mass or adenopathy. No CT findi ngs of acute diverticulitis. IMPRESSION: No renal or ureteral calculus, or hydronephrosis. Post operative changes in the stomach. No acute abnormality not ed. [id number] Procedure Note Interface, Radiology Results Incoming - 04/11/2019 12:48 AM CDT EXAMINATION: CT ABDOMEN PELVIS WO CONTRAST CLINICAL HISTORY: Flank pain recurrent stone disease suspected TECHNIQUE: Multiple axial images of the abdomen and pelvis were obtained without intravenous administration of iodinated contrast. Sagittal and coronal computerized reformatted images were also obtained. The lack of intravenous contrast reduces the sensitivity of detecting solid organ dis ease. CT imaging was performed with iterative reconstruction techniques and/or automated exposure control to reduce radiation dose. COMPARISON: January 31, 2019 CT scan FINDINGS: Abdomen: Postoperative changes in the stomach an d small bowel. There is increase in the amount gas and feces in the colon. No disproportionate dilatation of small bowel loops is seen. There has been a cholecystectomy. No focal lesions are seen in the liver, spleen, pancreas, or adrenal glands. The abdominal aorta is of normal caliber . There are no enlarged retroperitoneal lymph nodes. There are multiple cysts in the right ki dney ranging in size up to 4.7 cm. These are not well characterized without intravenous contrast. There is no calculus or hydronephrosis on the right. Pelvis: 1. Artifact generated by hardware in t he right hip. No pelvic sidewall mass or adenopathy. No CT findings of acute diverticulitis. IMPRESSION: No renal or ureteral calculus, or hydron ephrosis. Postoperative changes in the stomach. No acute abnormality noted. 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 [employer] C.Difficile (E) 11/22/2019 11:21 AM [employer] Insurance Payer Benefit Plan / Group Subscriber ID Effective Phone Addre ss Type Dates MEDICARE MEDICARE PART A AND B xxxxxxxxxxx 2012-Pres H HENRY, KAILEE Medicare ent [facility] xxxxxxxxx 2020-Prese PPO COMMERCIAL nt HMO/POS/PPO (Home) [address] [place] [id number] Advance Directives For more information, please contact: [phone] Type Date Recorded 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 on Advance Directives, 07/13/2019 2:11 PM Living Will and Medical Power of Senior Net Application Developer Advance Directives, 06/26/2018 5:16 PM Living Will and Medical Power of Senior Net Application Developer Advance Directives, 07/23/2018 4:55 PM Living Will and Medical Power of Senior Net Application Developer Advance Directives, 11/22/2018 1:29 PM MEDICAL P OA-11/16/18 Living Will and Medical Power of Senior Net Application Developer Advance Directives, 02/17/2019 11:24 AM Living Will and Medical Power of Senior Net Application Developer Advance Directives, 06/03/2019 12:53 PM Living Will and Medical Power of Senior Net Application Developer Advance Directives, 06/11/2019 4:22 PM MEDICAL Living Will and Medical Power of Senior Net Application Developer Advance Directives, 06/11/2019 4:23 PM ADV Living Will and Medical Power of Senior Net Application Developer Advance Directives, 06/27/2019 1:33 PM ADVANCE D IRECTIVE Living Will and 06/21/2018 Medical Power of Senior Net Application Developer Advance Directives, 06/30/2019 1:23 PM Living Will and Medical Power of Senior Net Application Developer Advance Directives, 08/19/2019 1:18 PM Living Will and Medical Power of Senior Net Application Developer
--- OUTSIDE RECORDS SUMMARY | 2020-03-22 13:23 | XMS REPORT | Clinical Summary ---
:1945 Author Organization [facility] Address [address] [place] [address] Care Team Providers Name Role Phone Evans Pineda MD Primary Care Provider Allergies Active Allergy Reactions Severity Noted Date Comments Cefuroxime 11/02/2019 Medications Medication Sig Dispensed Refills Start Date End Date Status aspirin 81 MG EC Take 81 mg by 0 Active tablet mouth daily. clonazePAM Take 1 mg by 0 Active (KLONOPIN) 1 MG mouth 2 (two) tablet times daily as needed for Anxiety. meclizine Take 25 mg by 0 Active (ANTIVERT) 25 MG mouth 3 (three) tablet times daily as needed. levothyroxine Take 88 mcg by 0 A ctive (SYNTHROID, mouth Every LEVOTHROID) 88 MCG morning on an tablet empty stomach. losartan 12.5 MG Take 50 mg by 0 Active halftab half tablet mouth daily. melatonin 3 mg Tab Take 10 mg by 0 Active tablet mouth 2 (two) times daily as needed. methen-m.blue-s.ann marie Take 1 capsule 0 Active s-phsal-hyo by mouth daily. (URIBEL) 118-10-40.8-36 mg Cap simvastatin (ZOCOR) Take 20 mg by 0 Active 20 MG tablet mouth nightly. pantoprazole Take 20 mg by 0 Act luis carlos (PROTONIX) 20 MG mouth daily. tablet omeprazole Take 40 mg by 0 Activ e (PRILOSEC) 40 MG mouth daily. capsule conjugated Place 0.5 g 0 Active estrogens vaginally 3 (PREMARIN) 0.625 (three) times a mg/gram vaginal week at bedtime cream MON/WED/FRI. mirabegron Take by mouth 0 Activ e (MYRBETRIQ) 50 mg daily. Tb24 ER tablet NIFEdipine Take 30 mg by 0 Activ e (PROCARDIA-XL) 30 mouth daily. MG (OSM) 24 hr tablet oxyCODONE-acetamino Take 1 tablet 0 Active phen (PERCOCET) by mouth every 7.5-325 mg per 8 (eight) hours tablet as needed for Pain. nystatin Apply topically 0 Acti ve (MYCOSTATIN) 2 (two) times 100,000 unit/gram daily. cream vancomycin Inject 1,250 mg 0 Dis continued (VANCOCIN) 1250 mg intravenously. 0 in D5W 250 mL (V2B) IVPB tamsulosin (FLOMAX) Take 0.4 mg by 0 11/06 Discontinued 0.4 mg Cap 24 hr mouth daily. 0 capsule fluconazole Take 200 mg by 0 Dis continued (DIFLUCAN) 200 MG mouth daily. 0 tablet traMADol (ULTRAM) Take 50 mg by 0 11/06/19 2 Discontinued 50 mg tablet mouth every 6 0 (six) hours as needed for Pain. potassium chloride Take 20 mEq by 0 Discontinued SA (K-DUR,KLOR-CON) mouth 2 (two) 0 20 MEQ tablet times daily. fluconazole Take 1 tablet 7 tablet 0 11/07/2019 Exp ired (DIFLUCAN) 200 MG (200 mg total) 0 tablet by mouth daily for [address] 1 patch 30 patch 0 11/06/2019 Expir ed (LIDODERM) 5 % onto the skin 0 patch daily for 30 days Remove & Discard patch within 12 hours or as directed by MD. traMADol (ULTRAM) Take 1 tablet 30 tablet 0 11/06/2019 02 50 mg tablet (50 mg total) 0 by mouth every 6 (six) hours as needed for Pain for up to 30 days. Max Daily Amount: 200 mg Active Problems Problem Noted Date Closed fracture of multiple ribs of right side with ro utine healing 11/04/2019 Compression fracture of L1 vertebra with routine heali ng 11/04/2019 Lumbar degenerative disc disease 11/04/2019 MDRO (multiple drug resistant organisms) resistance Back pain 11/02/2019 UTI (urinary tract infection) 11/02/2019 Encounters Date Type Specialty Care Team Description 11/02/2019 - Hospital Encounter General Internal [place], Fall, initial encounter (Primary Dx); 11/07/2019 Medicine Dusty Yuan, UTI (urinary tract infection); Acute right-sided low back pain without sciatica; Franca Pineda Closed fracture of multiple ribs of right side with routine healing; MD Evans Compression fra cture of L1 vertebra with routine healing; Lumbar degenera tive disc disease; MDRO (multiple drug resistant organisms) resistance; Compression fra cture of lumbar vertebra, initial encounter, unspecified lumbar vertebral level (HCC); Acute cystitis with hematuria 11/02/2019 Travel after 03/22/2019 Social History Tobacco Use Types Packs/Day Years Used Date Unknown If Ever Smoked Sex Assigned at Date Recorded Not on file Job Start Date Occupation Industry Not on file Not on file Not on file Travel History Travel Start Travel End No recent travel history available. Last Filed Vital Signs Vital Sign Reading Time Taken Blood Pressure 120/61 11/07/2019 8:32 AM [employer]ICAL OPERATIONS LEADER Pulse 86 11/07/2019 8:45 AM [employer] OPERATIONS LEADER Temperature 36.8 C (98.2 F) 11/07/2019 8:32 AM [employer]ICAL OPERATIONS LEADER Respiratory Rate 18 11/07/2019 8:45 AM [employer]ICAL OPERATIONS LEADER Oxygen Saturation 98% 11/07/2019 8:45 AM CLINICAL OPERATIONS LEADER Inhaled Oxygen Concentration 21% 11/07/2019 8:45 AM CLINICAL OPERATIONS LEADER Weight 80 kg (176 lb 6.4 oz) 11/02/2019 10:27 P M [employer]ICAL OPERATIONS LEADER Height 165.1 cm (5' 5") 11/02/2019 10:27 PM [employer]ICAL OPERATIONS LEADER Body Mass Index 29.35 11/02/2019 10:27 PM [employer]ICAL OPERATIONS LEADER Plan of Treatment Not on file Procedures Procedure Name Priority Date/Time Associated Comments Diagnosis RHYTHM STRIP - SCAN 11/08/2019 2:54 PM [employer]ICAL OPERATIONS LEADER RHYTHM STRIP - SCAN 11/07/2019 4:12 PM [employer]INICAL OPERATIONS LEADER MR LUMBAR SPINE Routine 11/06/2019 9:12 Results for this WITHOUT IV CONTRAST AM [employer] OPERATIONS LEADER procedur e are in the results section. CBC W/PLT COUNT & AUTO Routine 11/06/2019 3:51 R esults for this DIFFERENTIAL AM [employer]PERATIONS LEADER procedure are i n the results section. COMPREHENSIVE Routine 11/06/2019 3:51 Results fo r this METABOLIC PANEL AM [employer] OPERATIONS LEADER procedure ar e in the results section. CBC W/PLT COUNT & AUTO Routine 11/06/2019 3:51 R esults for this DIFFERENTIAL AM [employer]PERATIONS LEADER procedure are i n the results section. CBC W/PLT COUNT & AUTO Routine 11/05/2019 4:25 R esults for this DIFFERENTIAL AM [employer]PERATIONS LEADER procedure are i n the results section. COMPREHENSIVE Routine 11/05/2019 4:25 Results fo r this METABOLIC PANEL AM [employer]PERATIONS [employer] procedure ar e in the results section. CBC W/PLT COUNT & AUTO Routine 11/05/2019 4:25 R esults for this DIFFERENTIAL AM [employer] OPERATIONS LEADER procedure are i n the results section. CBC W/PLT COUNT & AUTO Routine 11/04/2019 4:09 R esults for this DIFFERENTIAL AM [employer] OPERATIONS LEADER procedure are i n the results section. COMPREHENSIVE Routine 11/04/2019 4:09 Results fo r this METABOLIC PANEL AM [employer] OPERATIONS LEADER procedure ar e in the results section. CBC W/PLT COUNT & AUTO Routine 11/04/2019 4:09 R esults for this DIFFERENTIAL AM [employer] OPERATIONS LEADER procedure are i n the results section. CBC W/PLT COUNT & AUTO STAT 11/03/2019 5:23 R esults for this DIFFERENTIAL AM [employer]PERATIONS LEADER procedure are i n the results section. HEMOGLOBIN A1C STAT 11/03/2019 5:23 Results f or this AM [employer] OPERATIONS LEADER procedure are i n the results section. CBC W/PLT COUNT & AUTO STAT 11/03/2019 5:23 R esults for this DIFFERENTIAL AM [employer] OPERATIONS LEADER procedure are i n the results section. CT THORACIC SPINE STAT 11/02/2019 9:29 Result s for this WITHOUT IV CONTRAST PM [employer] OPERATIONS LEADER procedur e are in the results section. CT LUMBAR SPINE STAT 11/02/2019 9:29 Results for this WITHOUT IV CONTRAST PM [employer] OPERATIONS LEADER procedur e are in the results section. BASIC METABOLIC PANEL STAT 11/02/2019 8:39 Re sults for this (7) PM CLINICAL OPERATIONS LEADER procedure are i n the results section. CBC W/PLT COUNT & AUTO STAT 11/02/2019 8:17 R esults for this DIFFERENTIAL PM [employer] OPERATIONS LEADER procedure are i n the results section. CBC W/PLT COUNT & AUTO STAT 11/02/2019 8:17 R esults for this DIFFERENTIAL PM [employer]ICAL OPERATIONS LEADER procedure are i n the results section. URINALYSIS W/ STAT 11/02/2019 8:02 Results fo r this MICROSCOPIC PM [employer]PERATIONS LEADER procedure are i n the results section. URINE CULTURE STAT 11/02/2019 8:02 Results fo r this PM [employer] OPERATIONS LEADER procedure are i n the results section. XR SPINE LUMBAR 1 VIEW STAT 11/02/2019 7:34 R esults for this PM [employer]ICAL OPERATIONS LEADER procedure are i n the results section. after 03/22/2019 Results RHYTHM STRIP - SCAN (11/08/2019 2:54 PM CLINICAL OPERATIONS LEADER)Only the most recent of2 results within the time period is included. Narrative Performed At This result has an attachment that is no t available. MR spine lumbar without IV contrast (11/06/2019 9:12 AM CLINICAL OPERATIONS LEADER) Specimen Narrative Performed At FINAL REPORT [facility] MR, SPINE, LUMBAR, WITHOUT CONTRAST INDICATION: Eval lumbar fractures COMPARISON: Prior CT November 02, 2019 TECHNIQUE: Multiplanar, multisequence MR images of the lumbar spine without contrast. FINDINGS: 5 nonrib-bearing lumbar-type vertebral b odies are present. Alignment of the lumbar spine is within normal limits. Remote superior endplate fracture of L1 is present with 50% loss of superior endplate height along the anter ior margin. Fracture is remote in appearance without marrow rell a to suggest acuity. Acute fractures of the right L1 and L2 t ransverse processes, better demonstrated on prior CT. Incidental note is made of Modic type II chronic fatty degenerative endplate changes at T11-T12. Incidental note is made of an osseous hemangioma L5. Remainder the vertebral marrow is unrema rkable. Multilevel disc space height loss is pre sent, most conspicuous atL1-L2, L2-L3, L3-L4 and L4-L5 Conus terminates atL1. Cauda equina demonstrates normal appeara nce. T2 hyperintense simple appearing renal c ysts. Evaluation of the individual levels demo nstrates: L1/L2: Broad-based disc bulge with super imposed tiny central disc extrusion with cranial migration of disc material and far lateral bulge. This results in moderate left/mil d right subacute to recess stenosis with proximity of disc material to the left L2 nerve root. Mild/moderate left foraminal narrowing w ith proximity of disc material to the exiting L1 nerve root. A dditionally, frontal and lateral disc bulge contacts the left L1 nerve root within the far lateral compartment. No significant spin al canal narrowing. Mild facet arthropathy. L2/L3: Broad-based disc bulge with tiny superimposed central disc extrusion and caudal migration of disc m aterial. There is moderate bilateral subarticular recess stenosis w ith proximity of disc material to the descending L3 nerve root s. No significant spinal canal narrowing. Mild facet arthropathy. Mild/moderate left foraminal narrowing with proximity of disc materia l to the exiting left L2 nerve root. L3/L4: Broad-based disc bulge which exte nds to the left neural foramen. No significant spinal canal madhuri rowing. Left foraminal disc in combination with mild facet hypertrop hy contributes to moderate left foraminal narrowing with impingemen t of the exiting left L3 nerve root. No significant spinal canal narrowing. L4/L5: Disc bulge, asymmetric to the lef t. Bilateral facet arthropathy and hypertrophy. Moderate ri ght/severe left foraminal narrowing with impingement of the exitin g left L4 nerve root. Additionally, disc material contacts the L4 nerve root within the far lateral compartment. Moderate left subar ticular recess stenosis with proximity of disc material to the left L 5 nerve root. No significant spinal canal narrowing. L5/S1: Disc bulge and bilateral facet ar thropathy and hypertrophy. Mild right foraminal narrowing. No signi ficant spinal canal narrowing. IMPRESSION: 1. Remote superior endplate fracture of L1 with 50% loss of vertebral body height. No marrow edema to suggest acuity. 2. Marrow edema extending to the right L 1 and L2 transverse processes is compatible with acute L1-L2 transvers e process fractures seen on most recent CT. Previously described rig ht 11-12 rib fractures are better demonstrated on prior CT. 3. Multilevel degenerative changes detai led above. A combination of disc disease, and, to a lesser degree, f acet disease contributes to multilevel foraminal and subarticular re cess stenosis, which may result in radiculopathy. Signed: Sophie Vizcaino MD Report Verified Date/Time:11/06/2019 09:31:56 Reading Location: [facility] Reading Room Procedure Note Interface, External Ris In - 11/06/2019 9:34 AM CLINICAL OPERATIONS LEADER FINAL REPORT MR, SPINE, LUMBAR, WITHOUT CONTRAST INDICATION: Eval lumbar fractures COMPARISON: Prior CT November 02, 2019 TECHNIQUE: Multiplanar, multisequence MR images of the lumbar spine without contrast. FINDINGS: 5 nonrib-bearing lumbar-type vertebral b odies are present. Alignment of the lumbar spine is within normal limits. Remote superior endplate fracture of L1 is present with 50% loss of superior endplate height along the anter ior margin. Fracture is remote in appearance without marrow rell a to suggest acuity. Acute fractures of the right L1 and L2 t ransverse processes, better demonstrated on prior CT. Incidental note is made of Modic type II chronic fatty degenerative endplate changes at T11-T12. Incidental note is made of an osseous hemangioma L5. Remainder the vertebral marrow is unrema rkable. Multilevel disc space height loss is pre sent, most conspicuous atL1-L2, L2-L3, L3-L4 and L4-L5 Conus terminates atL1. Cauda equina demonstrates normal appeara nce. T2 hyperintense simple appearing renal c ysts. Evaluation of the individual levels demo nstrates: L1/L2: Broad-based disc bulge with super imposed tiny central disc extrusion with cranial migration of disc material and far lateral bulge. This results in moderate left/mil d right subacute to recess stenosis with proximity of disc material to the left L2 nerve root. Mild/moderate left foraminal narrowing w ith proximity of disc material to the exiting L1 nerve root. A dditionally, frontal and lateral disc bulge contacts the left L1 nerve root within the far lateral compartment. No significant spin al canal narrowing. Mild facet arthropathy. L2/L3: Broad-based disc bulge with tiny superimposed central disc extrusion and caudal migration of disc m aterial. There is moderate bilateral subarticular recess stenosis w ith proximity of disc material to the descending L3 nerve root s. No significant spinal canal narrowing. Mild facet arthropathy. Mild/moderate left foraminal narrowing with proximity of disc materia l to the exiting left L2 nerve root. L3/L4: Broad-based disc bulge which exte nds to the left neural foramen. No significant spinal canal madhuri rowing. Left foraminal disc in combination with mild facet hypertrop hy contributes to moderate left foraminal narrowing with impingemen t of the exiting left L3 nerve root. No significant spinal canal narrowing. L4/L5: Disc bulge, asymmetric to the lef t. Bilateral facet arthropathy and hypertrophy. Moderate ri ght/severe left foraminal narrowing with impingement of the exitin g left L4 nerve root. Additionally, disc material contacts the L4 nerve root within the far lateral compartment. Moderate left subar ticular recess stenosis with proximity of disc material to the left L 5 nerve root. No significant spinal canal narrowing. L5/S1: Disc bulge and bilateral facet ar thropathy and hypertrophy. Mild right foraminal narrowing. No signi ficant spinal canal narrowing. IMPRESSION: 1. Remote superior endplate fracture of L1 with 50% loss of vertebral body height. No marrow edema to suggest acuity. 2. Marrow edema extending to the right L 1 and L2 transverse processes is compatible with acute L1-L2 transvers e process fractures seen on most recent CT. Previously described rig ht 11-12 rib fractures are better demonstrated on prior CT. 3. Multilevel degenerative changes detai led above. A combination of disc disease, and, to a lesser degree, f acet disease contributes to multilevel foraminal and subarticular re cess stenosis, which may result in radiculopathy. Signed: Sophie Vizcaino MD Report Verified Date/Time: 11/06/2019 0 9:31:56 Reading Location: [facility] Reading Room Performing Organization Address City/State/Zipcode Phone Number [facility] CBC with platelet count + automated diff (11/06/2019 3:51 AM CLINICAL OPERATIONS LEADER)Only the most recent of5 resultswithin the time period is included. WBC 4.4 4.0 - 10.0 K/L [facility] RBC 3.13 (L) 4.00 - 5.00 M/L [facility] Hemoglobin 10.0 (L) 12.0 - 15.5 GM/DL [facility] Hematocrit 30.2 (L) 36.0 - 46.0 % [facility] MCV 96.5 82.0 - 99.0 fL [facility] MCH 31.9 27.0 - 33.0 pg [facility] MCHC 33.1 32.0 - 36.0 GM/DL [facility] RDW 13.3 12.0 - 15.0 % [facility] Platelets 129 (L) 150 - 430 K/CU MM [facility] MPV 9.3 6.0 - 11.5 fL [facility] nRBC 0 0 - 0 /100 WBC [facility] % Neutros 62 % [facility] % Lymphs 15 % [facility] % Monos 16 % [facility] % Eos 5 % [facility] % Baso 1 % [facility] # Neutros 2.72 1.80 - 8.00 K/L [facility] # Lymphs 0.65 (L) 1.48 - 4.50 K/L [facility] # Monos 0.71 0.00 - 1.30 K/L [facility] # Eos 0.23 0.00 - 0.50 K/L [facility] # Baso 0.05 0.00 - 0.20 K/L [facility] Immature Granulocytes-Relative 1 (H) 0 - 0 % S [facility] Specimen Blood Performing Organization Address City/State/Zipcode Phone Number [facility] [address] [phone] Comprehensive metabolic panel (11/06/2019 3:51 AM CLINICAL OPERATIONS LEADER)Only the most recent of3 resultswithin the time period is included. Protein, Total 5.1 (L) 6.0 - 8.5 gm/dL [facility] Albumin 3.2 (L) 3.5 - 5.0 g/dL [facility] Alkaline Phosphatase 84 30 - 115 U/L [facility] Total Bilirubin 0.3 0.1 - 1.2 mg/dL [facility] Sodium 142 135 - 148 meq/L [facility] Potassium 3.6 3.6 - 5.5 meq/L [facility] Chloride 106 98 - 106 meq/L [facility] CO2 29 20 - 29 meq/L [facility] BUN 5 (L) 10 - 26 mg/dL [facility] Creatinine 0.71 0.50 - 1.20 mg/dL [facility] Glucose 70 70 - 110 mg/dL [facility] Calcium 9.3 8.5 - 10.5 mg/dL [facility] AST 17 5 - 40 U/L [facility] ALT 10 5 - 50 U/L [facility] EGFR 81Comment: ESTIMATED GFR mL/min/1.73 sq m [facility] IS NOT ACCURATE CREATININE CLEARANCE IN PREDICTING GLOMERULAR FILTRATION RATE. ESTIMATED GFR IS NOT APPLICABLE FOR DIALYSIS PATIENTS. Specimen Blood Performing Organization Address City/State/Zipcode Phone Number [facility] [address] [facility], [place] [address] Hemoglobin A1c (11/03/2019 5:23 AM CLINICAL OPERATIONS LEADER) Hemoglobin A1C <3.7 (L) 4.3 - 6.1 % [email or web address] Specimen Blood Performing Organization Address [facility]/Zipcode Phone Number [facility] [address] [facility], [place] [phone] CT spine lumbar without IV contrast (11/02/2019 9:29 PM CLINICAL OPERATIONS LEADER) Specimen Narrative Performed At FINAL REPORT [facility] CT, SPINE, LUMBAR, WO CONTRAST, CT, SPIN E, THORACIC, WO CONTRAST CLINICAL HISTORY: pain/fracture COMPARISON: Lumbar x-ray 11/02/2019 TECHNIQUE: Multiple axial CT images of t he lumbar spine were obtained withoutcontrast. Sagittal and greenberg l 2D reconstructions were created. This exam was performed according to our departmental dose-optimization program, which include s automated exposure control, adjustment of the mA and/or kV according to patient size and/or use of the iterative reconstruction techniqu e. FINDINGS: L1 compression fracture deformity with 5 0% anterior height loss with slight posterior cortical retropulsion o f 2 mm and mild central spinal canal stenosis without associated paraspinal inflammatory/edematous changes. There is vacuum disc phenomena at from T12 through S1 levels. Remainder of the thoracic and lumbar vertebral maintain normal height, allowi ng for endplate degenerative changes. There is diffuse osseous demine ralization. Acute minimally displaced right rib frac tures at T11 and T12 and right transverse process fractures of L1 and L2 present. No high-grade osseous central spinal can al stenosis of the thoracic spine. T10-11 moderate to severe bilater al neural foraminal stenosis. Remainder of thoracic neural foramina ar e without high-grade osseous neural foraminal stenosis. Bilateral SI joint arthrosis. Small right pleural effusion and lung co nsolidation. Minimal patchy opacities at the lung bases. No pneumoth orax. Small to moderate hiatal hernia. Gastroplasty changes. Par tially imaged right renal cysts. Aortic iliac calcifications. Panc reatic fatty infiltration. Partially imaged cardiomegaly and greenberg ry artery calcifications. Disc levels: L1-2: Disc osteophyte complex, facet art hrosis, moderate left neural foraminal stenosis. Mild central spinal canal stenosis, patent right neural foramen. L2-3: Diffuse disc bulge, mild central s miranda canal stenosis and patent bilateral neural foramina. L3-4: Diffuse disc bulge, bilateral face t arthrosis, mild central spinal canal stenosis, moderate left isaura ral foraminal stenosis and patent right neural foramen. L4-5: Diffuse disc bulge with severe lef t neural foraminal stenosis and moderate to severe right neural fora cate stenosis. Mild to moderate central spinal canal stenosis. Bilateral facet arthrosis. L5-S1: Disc bulge, mild central spinal c anal stenosis, severe bilateral neural foraminal stenosis. Azeem ateral facet arthrosis. IMPRESSION: Acute right-sided fractures of T11 and T 12 ribs and L1 and L2 right transverse processes. L1 age-indeterminate anterior compressio n fracture with 50% height loss. Mild central spinal canal stenosis due to retropulsed posterior cortical margin (possibly chronic). [employer] nicity could be better characterized by MRI lumbar spine. Moderate thoracic and moderate to severe lumbar spondylosis, described above. Small right pleural effusion and bilater al pulmonary airspace disease, pulmonary contusion/hemorrhage and hemothorax or considerations in the setting of trauma. Additional chronic findings discussed ab ove. Signed: Bigg Philippe MD Report Verified Date/Time:11/02/2019 22:26:12 Procedure Note Interface, External Ris In - 11/02/2019 10:28 PM CLINICAL OPERATIONS LEADER FINAL REPORT CT, SPINE, LUMBAR, WO CONTRAST, CT, SPIN E, THORACIC, WO CONTRAST CLINICAL HISTORY: pain/fracture COMPARISON: Lumbar x-ray 11/02/2019 TECHNIQUE: Multiple axial CT images of t he lumbar spine were obtained without contrast. Sagittal and coronal 2D reconstructions were created. This exam was performed according to our departmental dose-optimization program, which include s automated exposure control, adjustment of the mA and/or kV according to patient size and/or use of the iterative reconstruction techniqu e. FINDINGS: L1 compression fracture deformity with 5 0% anterior height loss with slight posterior cortical retropulsion o f 2 mm and mild central spinal canal stenosis without associated paraspinal inflammatory/edematous changes. There is vacuum disc phenomena at from T12 through S1 levels. Remainder of the thoracic and lumbar vertebral maintain normal height, allowi ng for endplate degenerative changes. There is diffuse osseous demine ralization. Acute minimally displaced right rib frac tures at T11 and T12 and right transverse process fractures of L1 and L2 present. No high-grade osseous central spinal can al stenosis of the thoracic spine. T10-11 moderate to severe bilater al neural foraminal stenosis. Remainder of thoracic neural foramina ar e without high-grade osseous neural foraminal stenosis. Bilateral SI joint arthrosis. Small right pleural effusion and lung co nsolidation. Minimal patchy opacities at the lung bases. No pneumoth orax. Small to moderate hiatal hernia. Gastroplasty changes. Par tially imaged right renal cysts. Aortic iliac calcifications. Panc reatic fatty infiltration. Partially imaged cardiomegaly and greenberg ry artery calcifications. Disc levels: L1-2: Disc osteophyte complex, facet art hrosis, moderate left neural foraminal stenosis. Mild central spinal canal stenosis, patent right neural foramen. L2-3: Diffuse disc bulge, mild central s miranda canal stenosis and patent bilateral neural foramina. L3-4: Diffuse disc bulge, bilateral face t arthrosis, mild central spinal canal stenosis, moderate left isaura ral foraminal stenosis and patent right neural foramen. L4-5: Diffuse disc bulge with severe lef t neural foraminal stenosis and moderate to severe right neural fora cate stenosis. Mild to moderate central spinal canal stenosis. Bilateral facet arthrosis. L5-S1: Disc bulge, mild central spinal c anal stenosis, severe bilateral neural foraminal stenosis. Azeem ateral facet arthrosis. IMPRESSION: Acute right-sided fractures of T11 and T 12 ribs and L1 and L2 right transverse processes. L1 age-indeterminate anterior compressio n fracture with 50% height loss. Mild central spinal canal stenosis due to retropulsed posterior cortical margin (possibly chronic). [employer] Supervisor nicity could be better characterized by MRI lumbar spine. Moderate thoracic and moderate to severe lumbar spondylosis, described above. Small right pleural effusion and bilater al pulmonary airspace disease, pulmonary contusion/hemorrhage and hemothorax or considerations in the setting of trauma. Additional chronic findings discussed ab ove. Signed: Bigg Philippe MD Report Verified Date/Time: 11/02/2019 2 2:26:12 Performing Organization Address City/State/Zipcode Phone Number [facility] CT spine thoracic without IV contrast (11/02/2019 9:29 PM CLINICAL OPERATIONS LEADER) Specimen Narrative Performed At FINAL REPORT [facility] CT, SPINE, LUMBAR, WO CONTRAST, CT, SPIN E, THORACIC, WO CONTRAST CLINICAL HISTORY: pain/fracture COMPARISON: Lumbar x-ray 11/02/2019 TECHNIQUE: Multiple axial CT images of t he lumbar spine were obtained withoutcontrast. Sagittal and greenberg l 2D reconstructions were created. This exam was performed according to our departmental dose-optimization program, which include s automated exposure control, adjustment of the mA and/or kV according to patient size and/or use of the iterative reconstruction techniqu e. FINDINGS: L1 compression fracture deformity with 5 0% anterior height loss with slight posterior cortical retropulsion o f 2 mm and mild central spinal canal stenosis without associated paraspinal inflammatory/edematous changes. There is vacuum disc phenomena at from T12 through S1 levels. Remainder of the thoracic and lumbar vertebral maintain normal height, allowi ng for endplate degenerative changes. There is diffuse osseous demine ralization. Acute minimally displaced right rib frac tures at T11 and T12 and right transverse process fractures of L1 and L2 present. No high-grade osseous central spinal can al stenosis of the thoracic spine. T10-11 moderate to severe bilater al neural foraminal stenosis. Remainder of thoracic neural foramina ar e without high-grade osseous neural foraminal stenosis. Bilateral SI joint arthrosis. Small right pleural effusion and lung co nsolidation. Minimal patchy opacities at the lung bases. No pneumoth orax. Small to moderate hiatal hernia. Gastroplasty changes. Par tially imaged right renal cysts. Aortic iliac calcifications. Panc reatic fatty infiltration. Partially imaged cardiomegaly and greenberg ry artery calcifications. Disc levels: L1-2: Disc osteophyte complex, facet art hrosis, moderate left neural foraminal stenosis. Mild central spinal canal stenosis, patent right neural foramen. L2-3: Diffuse disc bulge, mild central s miranda canal stenosis and patent bilateral neural foramina. L3-4: Diffuse disc bulge, bilateral face t arthrosis, mild central spinal canal stenosis, moderate left isaura ral foraminal stenosis and patent right neural foramen. L4-5: Diffuse disc bulge with severe lef t neural foraminal stenosis and moderate to severe right neural fora cate stenosis. Mild to moderate central spinal canal stenosis. Bilateral facet arthrosis. L5-S1: Disc bulge, mild central spinal c anal stenosis, severe bilateral neural foraminal stenosis. Azeem ateral facet arthrosis. IMPRESSION: Acute right-sided fractures of T11 and T 12 ribs and L1 and L2 right transverse processes. L1 age-indeterminate anterior compressio n fracture with 50% height loss. Mild central spinal canal stenosis due to retropulsed posterior cortical margin (possibly chronic). [employer] Supervisor nicity could be better characterized by MRI lumbar spine. Moderate thoracic and moderate to severe lumbar spondylosis, described above. Small right pleural effusion and bilater al pulmonary airspace disease, pulmonary contusion/hemorrhage and hemothorax or considerations in the setting of trauma. Additional chronic findings discussed ab ove. Signed: Bigg Philippe MD Report Verified Date/Time:11/02/2019 22:26:12 Procedure Note Interface, External Ris In - 11/02/2019 10:28 PM CLINICAL OPERATIONS LEADER FINAL REPORT CT, SPINE, LUMBAR, WO CONTRAST, CT, SPIN E, THORACIC, WO CONTRAST CLINICAL HISTORY: pain/fracture COMPARISON: Lumbar x-ray 11/02/2019 TECHNIQUE: Multiple axial CT images of t he lumbar spine were obtained without contrast. Sagittal and coronal 2D reconstructions were created. This exam was performed according to our departmental dose-optimization program, which include s automated exposure control, adjustment of the mA and/or kV according to patient size and/or use of the iterative reconstruction techniqu e. FINDINGS: L1 compression fracture deformity with 5 0% anterior height loss with slight posterior cortical retropulsion o f 2 mm and mild central spinal canal stenosis without associated paraspinal inflammatory/edematous changes. There is vacuum disc phenomena at from T12 through S1 levels. Remainder of the thoracic and lumbar vertebral maintain normal height, allowi ng for endplate degenerative changes. There is diffuse osseous demine ralization. Acute minimally displaced right rib frac tures at T11 and T12 and right transverse process fractures of L1 and L2 present. No high-grade osseous central spinal can al stenosis of the thoracic spine. T10-11 moderate to severe bilater al neural foraminal stenosis. Remainder of thoracic neural foramina ar e without high-grade osseous neural foraminal stenosis. Bilateral SI joint arthrosis. Small right pleural effusion and lung co nsolidation. Minimal patchy opacities at the lung bases. No pneumoth orax. Small to moderate hiatal hernia. Gastroplasty changes. Par tially imaged right renal cysts. Aortic iliac calcifications. Panc reatic fatty infiltration. Partially imaged cardiomegaly and greenberg ry artery calcifications. Disc levels: L1-2: Disc osteophyte complex, facet art hrosis, moderate left neural foraminal stenosis. Mild central spinal canal stenosis, patent right neural foramen. L2-3: Diffuse disc bulge, mild central s miranda canal stenosis and patent bilateral neural foramina. L3-4: Diffuse disc bulge, bilateral face t arthrosis, mild central spinal canal stenosis, moderate left isaura ral foraminal stenosis and patent right neural foramen. L4-5: Diffuse disc bulge with severe lef t neural foraminal stenosis and moderate to severe right neural fora cate stenosis. Mild to moderate central spinal canal stenosis. Bilateral facet arthrosis. L5-S1: Disc bulge, mild central spinal c anal stenosis, severe bilateral neural foraminal stenosis. Azeem ateral facet arthrosis. IMPRESSION: Acute right-sided fractures of T11 and T 12 ribs and L1 and L2 right transverse processes. L1 age-indeterminate anterior compressio n fracture with 50% height loss. Mild central spinal canal stenosis due to retropulsed posterior cortical margin (possibly chronic). [employer] Supervisor nicity could be better characterized by MRI lumbar spine. Moderate thoracic and moderate to severe lumbar spondylosis, described above. Small right pleural effusion and bilater al pulmonary airspace disease, pulmonary contusion/hemorrhage and hemothorax or considerations in the setting of trauma. Additional chronic findings discussed ab ove. Signed: Bigg Philippe MD Report Verified Date/Time: 11/02/2019 2 2:26:12 Performing Organization Address City/State/Zipcode Phone Number [facility] Basic metabolic panel (Na, K+, Cl, CO2, Glu, Ca, BUN, Cr) (11/02/2019 8:39 PM CLINICAL OPERATIONS LEADER) Sodium 139 135 - 148 meq/L [facility] Potassium 3.7 3.6 - 5.5 meq/L [facility] Chloride 107 (H) 98 - 106 meq/L [facility] CO2 25 20 - 29 meq/L [facility] BUN 7 (L) 10 - 26 mg/dL [facility] Creatinine 0.69 0.50 - 1.20 mg/dL [facility] Glucose 94 70 - 110 mg/dL [facility] Calcium 8.8 8.5 - 10.5 mg/dL [facility] EGFR 84Comment: ESTIMATED GFR IS NOT mL/min/1.73 s q m [facility] ACCURATE CREATININE CLEARANCE IN PREDICTING GLOMERULAR FILTRATION RATE. ESTIMATED GFR IS NOT APPLICABLE FOR DIALYSIS PATIENTS. Specimen Blood Performing Organization Address City/State/Zipcode Phone Number [facility] [address] [place], [place] [address] Urinalysis w/Microscopic (11/02/2019 8:02 PM CLINICAL OPERATIONS LEADER) Color, UA Green [facility] Clarity, UA Cloudy [facility] Specific [place], UA 1.020 1.001 - 1.035 [facility] pH, UA 6.5 5.0 - 8.0 [facility] Protein, UA 100 mg/dL (A) Negative [facility] Glucose, UA Negative Negative [facility] Ketones, UA Trace (A) Negative [facility] Bilirubin, UA Positive (A) Negative [facility] Blood, UA Moderate (A) Negative [facility] Nitrite, UA Negative Negative [facility] Leukocytes, UA Large (A) Negative [facility] Urobilinogen, UA 0.2 0.2 - 1.0 mg/dL [facility] Bacteria, UA Rare [facility] Yeast Moderate [facility] RBC, UA <5 /HPF [facility] WBC, UA >100 /HPF [facility] SQUAMOUS EPITHELIAL 5-10 /HPF [facility] Specimen Source [facility] Specimen Urine Performing Organization Address City/State/Zipcode Phone Number [facility] [address] [place], [place] [address] Urine culture (11/02/2019 8:02 PM CLINICAL OPERATIONS LEADER) Result >100,000 col/mL Ellen glabrata (A) [email or web address] Specimen Urine Performing Organization Address City/State/Zipcode Phone Number [facility] [address] [facility] [address] [facility] [address] XR spine lumbar 1 view (11/02/2019 7:34 PM CLINICAL OPERATIONS LEADER) Specimen Narrative Performed At FINAL REPORT [facility] EXAM: Lumbar spine one view CLINICAL HISTORY: Status post fall FINDINGS: Single AP view revealed possib le wedge deformities at T12, L1, and L2 vertebral bodies which may re present compression fractures, lateral view is recommended. Degenerative disc disease is also noted throughout the lumbar spine w ith loss in disc heights and vacuum phenomenon. Air-filled mildly pro minent colon is noted. Signed: Niecy Serra MD Report Verified Date/Time:11/02/2019 19:40:44 Reading Location: [address] Reading Room Procedure Note Interface, External Ris In - 11/02/2019 7:42 PM CLINICAL OPERATIONS LEADER FINAL REPORT EXAM: Lumbar spine one view CLINICAL HISTORY: Status post fall FINDINGS: Single AP view revealed possib le wedge deformities at T12, L1, and L2 vertebral bodies which may re present compression fractures, lateral view is recommended. Degenerative disc disease is also noted throughout the lumbar spine w ith loss in disc heights and vacuum phenomenon. Air-filled mildly pro minent colon is noted. Signed: Niecy Serra MD Report Verified Date/Time: 11/02/2019 1 9:40:44 Reading Location: [address] Reading Room Performing Organization Address City/State/Zipcode Phone Number [facility] after 03/22/2019 Insurance Payer Benefit Plan / Group Subscriber ID Type Phone A ddress MEDICARE MEDICARE A B xxxxxxxxxxx Medicare Advance Directives For more information, please contact:[address] [place], [place] [phone] Code Status Date Activated Date Inactivated Comments Full Code 11/02/2019 11:07 PM 11/07/2019 5:41 PM This code status was determined by: Patient
[2020-03-22] MEDS ORDERED: ONDANSETRON 4 MG/2 ML VIAL ONE (14:08)
[2020-03-22 15:34] LABS: Absolute Lymphocytes (CBC) 0.4 K/uL (0.7-4.9); Basophils % 0.9 % (0-1.3); Hematocrit 26.3 % (36.0-45.0); Lymphocytes % 11.1 % (15.3-44.8); MPV 8.3 fL (7.6-11.3); RBC Red Blood Cell Count 2.68 M/uL (3.86-4.86)
[2020-03-22 15:38] LABS: Protime INR 0.97
[2020-03-22 15:53] LABS: ALT/SGPT 10 U/L (12-78); AST/SGOT 11 U/L (15-37); Alkaline Phosphatase 83 U/L (45-117); BUN Blood Urea Nitrogen 8 mg/dL (7-18); Bicarbonate 26 mmol/L (21-32); Bilirubin Direct 0.2 mg/dL (0-0.2); Bilirubin Total 0.5 mg/dL (0.2-1.0); Glucose Level 95 mg/dL (74-106); Protein, Total 5.5 g/dL (6.4-8.2); Sodium Level 143 mmol/L (136-145); Troponin I < 0.02 ng/mL (0.0-0.045)
--- NOTE | 2020-03-22 16:07 | RAD REPORT ---
EXAM DESCRIPTION: CT - Head Brain Wo Cont - 03/22/2020 3:59 pm CLINICAL HISTORY: fall Fall, trauma, head injury COMPARISON: Head Brain Wo Cont dated 12/09/2017; Head Brain Wo Cont dated 10/26/2017 TECHNIQUE: All CT scans are performed using dose optimization technique as appropriate and may inclu de automated exposure control or mA/KV adjustment according to patient size. FINDINGS: No intracranial hemorrhage, hydrocephalus or extra-axial fluid collection.No areas of brai n edema or evidence of midline shift. The paranasal sinuses and mastoids are clear. The calvarium is intact. IMPRESSION: No acute intracranial abnormality.
--- NOTE | 2020-03-22 16:08 | RAD REPORT ---
EXAM DESCRIPTION: RAD - Elbow Right 3 View - 03/22/2020 4:00 pm CLINICAL HISTORY: fall Fall, elbow pain COMPARISON: Head Brain Wo Cont dated 03/22/2020 FINDINGS: The bones are diffusely osteopenic. No acute fracture or dislocation.
--- NOTE | 2020-03-22 16:09 | RAD REPORT ---
EXAM DESCRIPTION: RAD - Knee Left 3 View - 03/22/2020 4:00 pm CLINICAL HISTORY: fall Fall, trauma, pain COMPARISON: Knee Left 3 View dated 12/03/2017; Knee Left 3 View dated 07/22/2017 FINDINGS: Advanced arthritic changes are present in all 3 joint compartments, greatest medially. No evidence of an acute fracture or joint effusion.
[2020-03-22 16:40] LABS: Urine Bacteria >50 /HPF (<20); Urine Culture Reflex Order REFLEXED; Urine RBC <5 /HPF (NONE SEEN)
[2020-03-22] MEDS ORDERED: POTASSIUM CL SA 10 MEQ TAB PO ONE (17:06)
--- NOTE | 2020-03-22 17:08 | ER ---
Nurse's Notes [facility] Name: Tina Padron Age: 74 yrs Sex: Female : 1945 Arrival Date: 03/22/2020 Time: 13:23 Bed 19 Private MD: Diagnosis: Fall due to bumping against object;Abrasion of elbow;Abrasion of knee;Hypokalemia;Personal history of urinary (tract) infections Presentation: 03/22 13:15 Chief complaint: EMS states: Pt fell off walker and hit her head on the concrete, has ah abrasion to L knee and and R elbow. No LOC. Per EMS BGL 106, 111/52, 69, 95%. Coronavirus screen: Proceed with normal triage. Patient denies a cough. Patient denies shortness of breath or difficulty breathing. Patient denies measured and/or subjective temperature greater than 100.4F prior to today's visit. Patient denies travel on a cruise ship or to a country the [facility] currently lists as an affected area. Patient denies contact with known and/or suspected case of COVID-19. Ebola Screen: No symptoms or risks identified at this time. Initial Sepsis Screen: Does the patient meet any 2 criteria? No. Patient's initial sepsis screen is negative. Does the patient have a suspected source of infection? No. Patient's initial sepsis screen is negative. Risk Assessment: Do you want to hurt yourself or someone else? Patient reports no desire to harm self or others. Onset of symptoms was March 22, 2020. 13:15 Method Of Arrival: EMS: [facility] 13:15 Acuity: [facility] 3 hb Historical: - Allergies: 13:30 Compazine; - PMHx: 13:30 "shattered shoulder"; chronic uti; Anxiety; Hyperlipidemia; Hypertension; Hypothyroidism; spinal fractures; - PSHx: 13:30 Cholecystectomy; l shoulder; Hysterectomy; back; ah - Immunization history:: Adult Immunizations up to date. - Social history:: Smoking status: Patient denies any tobacco usage or history of. Patient/guardian denies using alcohol. Screenin:30 Abuse screen: Denies threats or abuse. Nutritional screening: No deficits noted. Tuberculosis screening: No symptoms or risk factors identified. Fall Risk None identified. Assessment: 13:30 General: Appears in no apparent distress. Behavior is calm, cooperative, appropriate ah for age. Pain: Complains of pain in bilateral knees, right side of head. Neuro: Level of Consciousness is awake, alert, Oriented to person, place, time, situation. Cardiovascular: Capillary refill < 3 seconds Patient's skin is warm and dry. Respiratory: Airway is patent Respiratory effort is even, unlabored, Respiratory pattern is regular, symmetrical. GI: No signs and/or symptoms were reported involving the gastrointestinal system. : No signs and/or symptoms were reported regarding the genitourinary system. EENT: No signs and/or symptoms were reported regarding the EENT system. Derm: Skin is dry, Skin is pink, warm \\T\\ dry. Skin temperature is warm Wound noted Other: pt has abrasion to right elbow and to left knee. No signifcant bleeding noted. Reports. Musculoskeletal: Reports pain in bilateral knees. Injury Description: pt fell off her walk[place] Abrasion noted to left elbow and right knee. Pt states that she hit the right side of her head on the sidewalk. No open area noted. Slightly swollen at right eyebrow. 14:30 Reassessment: Patient and/or family updated on plan of care and expected duration. Pain ah level reassessed. no needs voiced at this time. 15:30 Reassessment: Assisted pt to restroom in wheelchair. Urine was orange in color. Pt ah states that she has been taking AZO due to burning and is getting over an UTI. Urine sent to lab. 16:30 Reassessment: Patient and/or family updated on plan of care and expected duration. Pain ah level reassessed. Patient is alert, oriented x 3, equal unlabored respirations, skin warm/dry/pink. Patient states feeling better. Vital Signs: 13:15 BP 100 / 63; Pulse 64; Resp 17; Temp 99.0(O); Pulse Ox 93% ; Weight 61.69 kg; Height 5 ah ft. 5 in. (165.10 cm); 13:30 BP 100 / 63; Pulse 64; Resp 16; Pulse Ox 93% ; ah 14:30 BP 104 / 59; Pulse 71; Resp 16; Pulse Ox 96% ; ah 15:30 BP 106 / 60; Pulse 64; Resp 16; Pulse Ox 93% ; ah 16:30 BP 110 / 62; Pulse 64; Resp 17; Pulse Ox 96% ; 13:15 Body Mass Index 22.63 (61.69 kg, 165.10 cm) ED Course: 13:23 Patient arrived in ED. 13:24 Rosa Isela Blevins, RN is Primary Nurse. 13:26 Soto Adams MD is Attending Physician. [facility] 13:27 Triage completed. 15:59 CT completed. Patient tolerated procedure well. [facility] 17:32 No provider procedures requiring assistance completed. IV discontinued. 17:32 Patient has correct armband on for positive identification. Bed in low position. Call light in reach. Side rails up X2. Administered Medications: 17:00 Drug: Potassium Chloride 40 mEq Route: PO; 17:00 Follow up: Response: No adverse reaction; Medication administered at discharge. Outcome: 17:04 Discharge ordered by . [facility] 17:31 Discharged to home ambulatory. 17:31 Condition: good 17:31 Discharge instructions given to patient, Instructed on discharge instructions, follow up and referral plans. medication usage, Demonstrated understanding of instructions, follow-up care, medications, Prescriptions given X 1. 17:33 Patient left the ED. Signatures: Violeta Odonnell RN RN Funmi Vega 3 Rosa Isela Blevins, RN RN Soto Adams MD MD 7 Corrections: (The following items were deleted from the chart) 13:35 13:15 BP 94 / 48; Pulse 61bpm; Resp 17bpm; Pulse Ox 97%; 61.69 kg; Height 5 ft. 5 in.; BMI: 22.6; 15:06 13:15 Acuity: [facility] 4 [facility]
--- NOTE | 2020-03-22 17:08 | EDPHYS ---
Physician Documentation [facility] Name: Tina Padron Age: 74 yrs Sex: Female : 1945 Arrival Date: 03/22/2020 Time: : Bed 19 Private MD: ED Physician Soto Adams HPI: 03/22 14:18 This 74 yrs old Female presents to ER via EMS with complaints of Fall. mh7 14:18 Details of fall: The patient fell from an upright position, while walking. Onset: The mh7 symptoms/episode began/occurred just prior to arrival, today. Associated injuries: The patient sustained injury to the head, contusion, pain, tenderness, left knee, abrasion, contusion, right elbow, abrasion, contusion. Severity of symptoms: At their worst the symptoms were moderate, just prior to arrival, in the emergency department the symptoms have improved, moderately. 15:07 Patient [place] her walker mh7 slipped causing her to fall. She states that she hit her head on the ground. She also injured her right elbow and her let knee.. Historical: - Allergies: 13:30 Compazine; ah - PMHx: 13:30 "shattered shoulder"; chronic uti; Anxiety; Hyperlipidemia; Hypertension; ah Hypothyroidism; spinal fractures; - PSHx: 13:30 Cholecystectomy; l shoulder; Hysterectomy; back; ah - Immunization history:: Adult Immunizations up to date. - Social history:: Smoking status: Patient denies any tobacco usage or history of. Patient/guardian denies using alcohol. ROS: 15:07 Constitutional: Negative for fever, chills, and weight loss, Eyes: Negative for injury, mh7 pain, redness, and discharge, ENT: Negative for injury, pain, and discharge, Neck: Negative for injury, pain, and swelling. 15:11 Cardiovascular: Negative for chest pain, palpitations, and edema, Respiratory: Negative mh7 for shortness of breath, cough, wheezing, and pleuritic chest pain, Abdomen/GI: Negative for abdominal pain, nausea, vomiting, diarrhea, and constipation, Back: Negative for injury and pain. 15:11 : Negative for injury, bleeding, discharge, and swelling, Neuro: Negative for headache, weakness, numbness, tingling, and seizure, Psych: Negative for depression, anxiety, suicide ideation, homicidal ideation, and hallucinations, Allergy/Immunology: Negative for hives, rash, and allergies, Endocrine: Negative for neck swelling, polydipsia, polyuria, polyphagia, and marked weight changes, Hematologic/Lymphatic: Negative for swollen nodes, abnormal bleeding, and unusual bruising. Exam: 15:11 Constitutional: This is a well developed, well nourished patient who is awake, alert, mh7 and in no acute distress. 15:11 Eyes: Pupils equal round and reactive to light, extra-ocular motions intact. Lids and lashes normal. Conjunctiva and sclera are non-icteric and not injected. Cornea within normal limits. Periorbital areas with no swelling, redness, or edema. ENT: Nares patent. No nasal discharge, no septal abnormalities noted. Tympanic membranes are normal and external auditory canals are clear. Oropharynx with no redness, swelling, or masses, exudates, or evidence of obstruction, uvula midline. Mucous membranes moist. Neck: Trachea midline, no thyromegaly or masses palpated, and no cervical lymphadenopathy. Supple, full range of motion without nuchal rigidity, or vertebral point tenderness. No Meningismus. Chest/axilla: Normal chest wall appearance and motion. Nontender with no deformity. No lesions are appreciated. Cardiovascular: Regular rate and rhythm with a normal S1 and S2. No gallops, murmurs, or rubs. Normal PMI, no JVD. No pulse deficits. Respiratory: Lungs have equal breath sounds bilaterally, clear to auscultation and percussion. No rales, rhonchi or wheezes noted. No increased work of breathing, no retractions or nasal flaring. Abdomen/GI: Soft, non-tender, with normal bowel sounds. No distension or tympany. No guarding or rebound. No evidence of tenderness throughout. Back: No spinal tenderness. No costovertebral tenderness. Full range of motion. 15:11 Neuro: Awake and alert, GCS 15, oriented to person, place, time, and situation. Cranial nerves II-XII grossly intact. Motor strength 5/5 in all extremities. Sensory grossly intact. Cerebellar exam normal. Normal gait. Psych: Awake, alert, with orientation to person, place and time. Behavior, mood, and affect are within normal limits. 15:11 Head/face: Noted is contusion, that is superficial, of the forehead, tenderness, that is mild. 15:11 Musculoskeletal/extremity: Extremities: noted in the right elbow, left knee: abrasion, contusion, pain, tenderness, ROM: intact in all extremities, Circulation is intact in all extremities. Pulses: are normal with no appreciated deficits, Perfusion: the patient is normally perfused throughout, Perfusion: the extremity is normally perfused throughout, Calf tenderness, is absent, Edema, is not appreciated, Sensation intact. Compartment Syndrome exam of affected extremity: is normal. no numbness, no tingling, no sensation deficit, no palor, no weak pulses, Joints: the right elbow displays tenderness, the left knee displays tenderness. 15:11 Skin: injury, abrasion(s), small abrasion noted, of the right elbow, left knee. 16:18 ECG was reviewed by the Attending Physician. [facility] Vital Signs: 13:15 BP 100 / 63; Pulse 64; Resp 17; Temp 99.0(O); Pulse Ox 93% ; Weight 61.69 kg; Height 5 ah ft. 5 in. (165.10 cm); 13:30 BP 100 / 63; Pulse 64; Resp 16; Pulse Ox 93% ; ah 14:30 BP 104 / 59; Pulse 71; Resp 16; Pulse Ox 96% ; ah 15:30 BP 106 / 60; Pulse 64; Resp 16; Pulse Ox 93% ; ah 16:30 BP 110 / 62; Pulse 64; Resp 17; Pulse Ox 96% ; ah 13:15 Body Mass Index 22.63 (61.69 kg, 165.10 cm) MDM: 14:17 Patient medically screened. [facility] 17:00 Differential diagnosis: abrasion, closed head injury, contusion, fracture, sprain, [facility] strain. Data reviewed: vital signs, nurses notes, old medical records, lab test result(s), CBC, electrolytes, urinalysis, EKG, radiologic studies, CT scan, plain films. Counseling: I had a detailed discussion with the patient and/or guardian regarding: the historical points, exam findings, and any diagnostic results supporting the discharge/admit diagnosis, lab results, radiology results, the need for outpatient follow up. 03/23 07:37 Counseling: I had a detailed discussion with the patient and/or guardian regarding: to [facility] return to the emergency department if symptoms worsen or persist or if there are any questions or concerns that arise at home. ED course: Feels better, NAD, VSS, no focal neurological deficits. Ambulating without difficulty. Discussed all test results and findings with the patient and answered all of her questions. She requested to be discharged from the ED. She will follow up with her doctor but agreed to return to the ED if worsening of symptoms or other concerns.. 03/22 14:22 Order name: CBC with Diff [facility] 03/22 14:22 Order name: Basic Metabolic Panel [facility] 03/22 14:22 Order name: Troponin (emerg Dept Use Only) [facility] 03/22 14:22 Order name: Protime (+inr) [facility] 03/22 14:22 Order name: Ptt, Activated [facility] 03/22 14:22 Order name: LFT's [facility] 03/22 16:58 Order name: CBC with Automated Diff [facility] 03/22 16:58 Order name: Basic Metabolic Panel [facility] 03/22 16:58 Order name: Liver (Hepatic) Function [facility] 03/22 16:58 Order name: Troponin I [facility] 03/22 16:58 Order name: Protime (+INR) [facility] 03/22 16:58 Order name: PTT, Activated Partial Thromb [facility] 03/22 16:58 Order name: Urine Microscopic Only [facility] 03/22 14:22 Order name: EKG - Nurse/Tech; Complete Time: 16:06 [facility] 03/22 14:22 Order name: Knee Left 3 View XRAY [facility] 03/22 14:22 Order name: Elbow Right 3 View XRAY [facility] 03/22 16:59 Order name: Elbow Right 3 View [facility] 03/22 16:59 Order name: Knee Left 3 View [facility] 03/22 17:01 Order name: Head Brain Wo Cont [facility] 03/22 17:16 Order name: Urine Culture [facility]UT EC/23 16:18 Rate is 52 beats/min. Rhythm is regular. QRS [place] is Normal. [place] interval is normal. QRS mh7 interval is normal. QT interval is normal. No Q waves. T waves are Normal. No ST changes noted. Clinical impression: Sinus bradycardia. Administered Medications: 17:00 Drug: Potassium Chloride 40 mEq Route: PO; 17:00 Follow up: Response: No adverse reaction; Medication administered at discharge. Disposition: 03/22/20 17:04 Discharged to Home. Impression: Fall due to bumping against object, Abrasion of elbow, Abrasion of knee, Hypokalemia, Personal history of urinary (tract) infections. - Condition is Stable. - Discharge Instructions: Anemia, Nonspecific, Urinary Tract Infection, Adult, [id number], Abrasion, [id number], Hypokalemia. - Prescriptions for Keflex 500 mg Oral Capsule - take 1 capsule by ORAL route every 12 hours for 7 days; 14 capsule. - Medication Reconciliation Form, Thank You Letter, Antibiotic Education, Prescription Opioid Use form. - Follow up: Private Physician; When: 2 - 3 days; Reason: Worsening of condition, Re-evaluation by your physician. - Problem is an acute exacerbation. - Symptoms have improved. Signatures: Dispatcher [employer] EDRosa Isela Torres, RN RN Soto Schaefer MD MD mh7 Corrections: (The following items were deleted from the chart) 17:33 17:04 03/22/2020 17:04 Discharged to Home. Impression: Fall due to bumping against ah object; Abrasion of elbow; Abrasion of knee; Hypokalemia; Personal history of urinary (tract) infections. Condition is Stable. Forms are Medication Reconciliation Form, Thank You Letter, Antibiotic Education, Prescription Opioid Use. Follow up: Private Physician; When: 2 - 3 days; Reason: Worsening of condition, Re-evaluation by your physician. Problem is an acute exacerbation. Symptoms have improved. mh7
[2020-03-22 18:03] VITALS: BP 110/62; O2SAT 96
--- NOTE | 2020-03-24 08:57 | EKG ---
Test Date: 2020-03-22 Test Time: 15:43:45 Butter Grader: KEVIN MEASUREMENT RESULTS: Intervals: Rate: 52 MN: 182 QRSD: 78 QT: 476 QTc: 442 Hartly: P: 54 MN: 182 QRS: 18 T: 20 INTERPRETIVE STATEMENTS: Sinus bradycardia Otherwise normal ECG Compared to ECG 02/24/2020 21:05:38 Sinus rhythm no longer present Myocardial infarct finding no longer present Electronically Signed On 03-24-20 08:54:21 CDT by Diaz Ramsay
== END 2020-03-22 17:33 | disposition home or self-care (01) ==
LOC: ER 13:18
DX: S80.211A Abrasion, right knee, initial encounter (principal); E87.6 Hypokalemia; Z87.440 Personal history of urinary (tract) infections; W01.0XXA Fall on same level from slipping, tripping and stumbling without subsequent striking against object, initial encounter; Y93.01 Activity, walking, marching and hiking; Y92.59 Other trade areas as the place of occurrence of the external cause; I10 Essential (primary) hypertension; Z88.1 Allergy status to other antibiotic agents
CPT/HCPCS: 93005; 87088; 85025; 87086; 80048; 36415; 85610; 80076; 85730; 87077; 87186; 81015; 84484; 70450; 73080; 73562; 99284; J2405

== ENCOUNTER 2020-04-03 03:49 | Inpatient (IN) | payer OTHER, BC ==
--- OUTSIDE RECORDS SUMMARY | 2020-04-03 03:54 | XMS REPORT | Clinical Summary ---
:1945 Author Organization [facility] Address [address] [place] [address] Care Team Providers Name Role Phone Evans [...] Acute cystitis with hematuria 11/02/2019 Travel after 04/03/2019 Social History Tobacco Use Types Packs/Day Years Used Date Unknown If Ever Smoked Sex Assigned at Date Recorded Not on file Job Start Date Occupation Industry Not on file Not on file Not on file Travel History Travel Start Travel End No recent travel history available. Last Filed Vital Signs Vital Sign Reading Time Taken Blood Pressure 120/61 11/07/2019 8:32 AM [employer] Pulse 86 11/07/2019 8:45 AM [employer] Temperature 36.8 C (98.2 F) 11/07/2019 8:32 AM [employer] Respiratory Rate 18 11/07/2019 8:45 AM [employer] Oxygen Saturation 98% 11/07/2019 8:45 AM [employer] Inhaled Oxygen Concentration 21% 11/07/2019 8:45 AM [employer] Weight 80 kg (176 lb 6.4 oz) 11/02/2019 10:27 P M [employer] Height 165.1 cm (5' 5") 11/02/2019 10:27 PM [employer] Body Mass Index 29.35 11/02/2019 10:27 PM [employer] Plan of Treatment Not on file Procedures Procedure Name Priority Date/Time Associated Comments Diagnosis RHYTHM STRIP - SCAN 11/08/2019 2:54 PM [employer] RHYTHM STRIP - SCAN 11/07/2019 4:12 PM [employer] MR LUMBAR SPINE Routine 11/06/2019 9:12 Results for this WITHOUT IV CONTRAST AM [employer] procedur e are in the results section. CBC W/PLT COUNT & AUTO Routine 11/06/2019 3:51 R esults for this DIFFERENTIAL AM [employer] procedure are i n the results section. COMPREHENSIVE Routine 11/06/2019 3:51 Results fo r this METABOLIC PANEL AM [employer] procedure ar e in the results section. CBC W/PLT COUNT & AUTO Routine 11/06/2019 3:51 R esults for this DIFFERENTIAL AM [employer] procedure are i n the results section. CBC W/PLT COUNT & AUTO Routine 11/05/2019 4:25 R esults for this DIFFERENTIAL AM [employer] procedure are i n the results section. COMPREHENSIVE Routine 11/05/2019 4:25 Results fo r this METABOLIC PANEL AM [employer] procedure ar e in the results section. CBC W/PLT COUNT & AUTO Routine 11/05/2019 4:25 R esults for this DIFFERENTIAL AM [employer] procedure are i n the results section. CBC W/PLT COUNT & AUTO Routine 11/04/2019 4:09 R esults for this DIFFERENTIAL AM [employer] procedure are i n the results section. COMPREHENSIVE Routine 11/04/2019 4:09 Results fo r this METABOLIC PANEL AM [employer] procedure ar e in the results section. CBC W/PLT COUNT & AUTO Routine 11/04/2019 4:09 R esults for this DIFFERENTIAL AM [employer] procedure are i n the results section. CBC W/PLT COUNT & AUTO STAT 11/03/2019 5:23 R esults for this DIFFERENTIAL AM [employer] procedure are i n the results section. HEMOGLOBIN A1C STAT 11/03/2019 5:23 Results f or this AM [employer] procedure are i n the results section. CBC W/PLT COUNT & AUTO STAT 11/03/2019 5:23 R esults for this DIFFERENTIAL AM [employer] procedure are i n the results section. CT THORACIC SPINE STAT 11/02/2019 9:29 Result s for this WITHOUT IV CONTRAST PM [employer] procedur e are in the results section. CT LUMBAR SPINE STAT 11/02/2019 9:29 Results for this WITHOUT IV CONTRAST PM [employer] procedur e are in the results section. BASIC METABOLIC PANEL STAT 11/02/2019 8:39 Re sults for this (7) PM [employer] procedure are i n the results section. CBC W/PLT COUNT & AUTO STAT 11/02/2019 8:17 R esults for this DIFFERENTIAL PM [employer] procedure are i n the results section. CBC W/PLT COUNT & AUTO STAT 11/02/2019 8:17 R esults for this DIFFERENTIAL PM [employer] procedure are i n the results section. URINALYSIS W/ STAT 11/02/2019 8:02 Results fo r this MICROSCOPIC PM [employer] procedure are i n the results section. URINE CULTURE STAT 11/02/2019 8:02 Results fo r this PM [employer] procedure are i n the results section. XR SPINE LUMBAR 1 VIEW STAT 11/02/2019 7:34 R esults for this PM [employer] procedure are i n the results section. after 04/03/2019 Results RHYTHM STRIP - SCAN (11/08/2019 2:54 PM [employer])Only the most recent of2 results within the time period is included. Narrative Performed At This result has an attachment that is no t available. MR spine lumbar without IV contrast (11/06/2019 9:12 AM [employer]) Specimen Narrative Performed At FINAL REPORT [employer] [facility] MR, SPINE, LUMBAR, WITHOUT CONTRAST INDICATION: Eval [...] which may result in radiculopathy. Signed: Sophie iVzcaino MD Report Verified Date/Time:11/06/2019 09:31:56 Reading Location: [facility] Reading Room Procedure Note Interface, External Ris In - 11/06/2019 9:34 AM [employer] FINAL REPORT MR, SPINE, LUMBAR, WITHOUT CONTRAST [...] Verified Date/Time: 11/06/2019 0 9:31:56 Reading Location: [facility] Radiolog y Reading Room Performing Organization Address City/State/Zipcode Phone Number [facility] CBC with platelet count + automated diff (11/06/2019 3:51 AM [employer]ENT)Only the most recent of5 resultswithin the time [...] City/State/Zipcode Phone Number [facility] [address] [phone] Comprehensive metabolic panel (11/06/2019 3:51 AM [employer])Only the most recent of3 resultswithin the time [...] Blood Performing Organization Address City/State/Zipcode Phone Number [facility] [address] [facility] [place] [phone] Hemoglobin A1c (11/03/2019 5:23 AM [employer]) Hemoglobin A1C <3.7 (L) 4.3 - 6.1 % [facility] Specimen Blood Performing Organization Address [facility]/Zipcode Phone Number [facility] [address] [facility] [place] [phone] spine lumbar without IV contrast (11/02/2019 9:29 PM [employer]) Specimen Narrative Performed At FINAL REPORT [facility], SPINE, LUMBAR, WO CONTRAST, CT, SPIN [...] to retropulsed posterior cortical margin (possibly chronic). Top Stop Attacher nicity could be better characterized by MRI [...] External Ris In - 11/02/2019 10:28 PM [employer] FINAL REPORT CT, SPINE, LUMBAR, WO CONTRAST, [...] to retropulsed posterior cortical margin (possibly chronic). Top Stop Attacher nicity could be better characterized by MRI lumbar spine. Moderate thoracic and moderate to severe lumbar spondylosis, described above. Small right pleural effusion and bilater al pulmonary airspace disease, pulmonary contusion/hemorrhage and hemothorax or considerations in the setting of trauma. Additional chronic findings discussed ab ove. Signed: Bigg Philippe MD Report Verified Date/Time: 11/02/2019 2 2:26:12 Performing Organization Address City/State/Zipcode Phone Number [facility] spine thoracic without IV contrast (11/02/2019 9:29 PM [employer]) Specimen Narrative Performed At FINAL REPORT [facility], SPINE, LUMBAR, WO CONTRAST, CT, SPIN [...] to retropulsed posterior cortical margin (possibly chronic). Top Stop Attacher nicity could be better characterized by MRI [...] External Ris In - 11/02/2019 10:28 PM [employer]ENT FINAL REPORT CT, SPINE, LUMBAR, WO CONTRAST, [...] to retropulsed posterior cortical margin (possibly chronic). Top Stop Attacher nicity could be better characterized by MRI [...] Glu, Ca, BUN, Cr) (11/02/2019 8:39 PM [employer]) Sodium 139 135 - 148 meq/L [facility] [...] Blood Performing Organization Address City/State/Zipcode Phone Number [facility] [address] [place], [place] [phone] Urinalysis w/Microscopic (11/02/2019 8:02 PM [employer]) Color, UA Green [facility] Clarity, UA Cloudy [facility] Specific [place], UA 1.020 1.001 - 1.035 [facility] [...] Urine Performing Organization Address City/State/Zipcode Phone Number [facility] [address] [place], [place] [phone] Urine culture (11/02/2019 8:02 PM [employer]) Result >100,000 col/mL Ellen glabrata (A) [facility] Specimen Urine Performing Organization Address City/State/Zipcode Phone Number [facility] [address] [facility] 478 XR spine lumbar 1 view (11/02/2019 7:34 PM [employer] SAL[employer]ENT) Specimen Narrative Performed At FINAL REPORT [facility] [...] MD Report Verified Date/Time:11/02/2019 19:40:44 Reading Location: [address] Reading Room Procedure Note Interface, External Ris In - 11/02/2019 7:42 PM [employer] FINAL REPORT EXAM: Lumbar spine one view [...] Verified Date/Time: 11/02/2019 1 9:40:44 Reading Location: [address] [employer] Reading Room Performing Organization Address City/State/Zipcode Phone Number [facility] after 04/03/2019 Insurance Payer Benefit Plan / Group Subscriber ID Type Phone A ddress MEDICARE MEDICARE A B xxxxxxxxxxx Medicare Advance Directives For more information, please contact:[address] [place], [place] [phone] Code Status Date Activated Date Inactivated Comments Full Code 11/02/2019 11:07 PM 11/07/2019 5:41 PM This code status was determined by: Patient
--- OUTSIDE RECORDS SUMMARY | 2020-04-03 03:54 | XMS REPORT | Clinical Summary ---
:1945 Author Organization [facility] Address [address] [place] [address] Care Team Providers Name Role Phone Vivek Solorzano MD Primary Care Provider [phone] Allergies Active Allergy Reactions Severity Noted Date [...] tablet mouth nightly. 2018 (Stop Taking at [facility]) levothyroxine Take 88 mcg by 0 10/13/ D iscontinued (SYNTHROID, LEVOXYL) mouth daily. 2018 100 mcg tablet oxyCODone-acetaminophe Take 1 tablet 0 / Discontinued n (PERCOCET) 7.5-325 by mouth every 2020 (Reorder) mg per tablet 6 (six) hours as needed. losartan (COZAAR) 50 Take 50 mg by 0 12/04 / Discontinued MG tablet mouth daily. 2019 (Stop T aking Hold for BP at [facility]) less than 110 and Hr less than 60 hydroCHLOROthiazide Take 25 mg by 0 10/13/ Discontinued (HYDRODIURIL) 12.5 MG mouth daily. 2019 tablet omeprazole (PriLOSEC) Take 40 mg by 0 03/31 7/ Discontinued 40 MG capsule mouth daily. 2018 (St op Taking at [facility]) potassium chloride Take 10 mEq by 0 04/16/ Discontinued (K-DUR,KLOR-CON) 10 mouth daily. 2018 (Stop Taking MEQ CR tablet at [facility]) metoprolol tartrate Take 25 mg by 0 [...] Stop Taking times a day as at [facility]) needed for dizziness. conjugated estrogens Insert 0.5 g 0 12/04/ Discontinued (PREMARIN) 0.625 into the vagina 2019 (Stop Taking mg/gram vaginal cream 3 (three) times at Discharge) a week. On Tue. Tue. tuesday clonAZEPAM (KlonoPIN) Take 1 mg by 0 04/16 / Discontinued 1 MG tablet mouth 2 (two) 2018 (Sto p Taking times a day as at [facility]) needed (sleep). fosfomycin (MONUROL) 3 Take [...] (Stop Taking tablet by mouth daily at [facility]) for 30 days. pantoprazole Take 1 tablet 30 tablet 0 04/17/2005/16/ Dis continued (PROTONIX) 40 MG EC (40 mg total) 2018 (Stop Taking tablet by mouth daily at [facility]) for 30 days. vancomycin (VANCOCIN) Take [...] tablet mouth daily. 2018 (Stop [facility] at [facility]) docusate sodium Take 100 mg by [...] as needed. 2019 (Stop Warren ing at [facility]) cefdinir (OMNICEF) 300 Take 1 capsule 14 capsule 0 06/26/20 0 07/03/ Discontinued MG capsule (300 mg total) 2018 (Sto p Taking by mouth 2 at [facility]) (two) times a day for 7 days. [...] mouth daily. 2019 (Stop Taking capsule at [facility]) phenazopyridine (AZO Take 1 tablet 0 11/01 [...] mouth daily. 2019 (Stop Taking ORAL) at [facility]) lidocaine 3 % cream Apply 1 Dose 0 11/01/ Discontinued topically as 2019 (Stop T aking needed. at [facility]) ciprofloxacin (CIPRO) Take 1 tablet 10 tablet [...] Evans 10/13/2019 - Hospital Encounter General Internal Sada Foster rinary tract 10/19/2019 Medicine MD Kevin [...] - Hospital Encounter General Internal [place] UTI (Primary Dx); 07/03/2019 Medicine Juliette PIERRE [...] unspecified type; Arpit Alexanderuria MD Lenny after 04/03/2019 Family History Medical History Relation Name Comments [...] Comments Blood Pressure 120/62 12/04/2019 3:41 PM [facility] UP [facility]IST Pulse 84 12/04/2019 3:41 PM [employer] UP [employer]IST Temperature 36.4 C (97.6 F) 12/04/2019 3:41 PM [facility] UP ARTIST Respiratory Rate 18 12/04/2019 3:41 PM [facility] UP ARTIST Oxygen Saturation 95% 12/04/2019 3:41 PM [facility] UP ARTIST Inhaled Oxygen Concentration - - Weight 70.1 kg (154 lb 8 oz) 12/04/2019 4:47 AM MAKE UP ARTIST Height 165.1 cm (5' 5") 11/19/2019 7:50 PM [employer] UP ARTIST Body Mass Index 25.71 11/19/2019 7:50 PM MAKE UP ARTIST Plan of Treatment Health Maintenance Due Date Last Done Comments BREAST CANCER SCREENING 1997 COLONOSCOPY SCREENING 1997 SHINGLES VACCINES (#1) 1997 65+ PNEUMOCOCCAL VACCINE (2 of 2 - PPSV23) 08/20/201208/07 INFLUENZA VACCINE 05/31/2020 08/05/2016, 2015 Implants Implanted Type Area Quality Analyst Device Identifier Shelf Exp iration Model / Serial Date / Lot Screw Screw Procedures Procedure Name Priority Date/Time Associated Comments Diagnosis ESTIMATED GFR Routine 12/04/2019 7:50 Results fo r this AM [employer] procedure are i n the results section. BASIC METABOLIC PANEL Routine 12/04/2019 7:50 Re sults for this AM [employer]IST procedure are i n the results section. XR CHEST 1 VW PORTABLE Routine 12/03/2019 7:20 R esults for this AM [employer]IST procedure are i n the results section. ESTIMATED GFR Routine 12/03/2019 5:20 Results fo r this AM [employer] procedure are i n the results section. BASIC METABOLIC PANEL Routine 12/03/2019 5:20 Re sults for this AM [employer]IST procedure are i n the results section. URINE CULTURE Routine 12/02/2019 12:53 Results fo r this PM [employer] procedure are i n the results section. URINALYSIS SCREEN AND Routine 12/02/2019 11:30 Re sults for this MICROSCOPY, WITH REFLEX AM [employer] proc edure are in TO CULTURE the results section. AMIKACIN LEVEL, PEAK Routine 12/02/2019 10:15 Res ults for this AM [employer]IST procedure are i n the results section. AMIKACIN LEVEL, TROUGH Routine 12/02/2019 8:50 R esults for this AM [employer]IST procedure are i n the results section. US RENAL Routine 12/02/2019 5:59 Results for this AM [employer]IST procedure are i n the results section. ESTIMATED GFR Routine 12/02/2019 5:10 Results fo r this AM [employer] procedure are i n the results section. URIC ACID LEVEL Routine 12/02/2019 5:10 Results for this AM [employer]IST procedure are i n the results section. CREATINE KINASE, TOTAL Routine 12/02/2019 5:10 R esults for this (CPK) AM [employer]IST procedure are i n the results section. COMPREHENSIVE METABOLIC Routine 12/02/2019 5:10 Results for this PANEL AM [employer] procedure are i n the results section. HC COMPLETE BLD COUNT Routine 12/02/2019 5:10 Re sults for this W/AUTO DIFF AM [employer] procedure are i n the results section. CREATININE LEVEL, URINE, Routine 12/01/2019 7:30 Results for this RANDOM PM [employer] procedure are i n the results section. PROTEIN, URINE, RANDOM Routine 12/01/2019 7:30 R esults for this PM [employer] procedure are i n the results section. LACTIC ACID LEVEL, Timed 12/01/2019 7:30 Resul ts for this SEPSIS - NOW AND REPEAT AM [employer]IST proc edure are in 2X EVERY 3 HOURS the results section. XR CHEST 1 VW PORTABLE STAT 12/01/2019 5:32 R esults for this AM [employer]IST procedure are i n the results section. URINE CULTURE STAT 12/01/2019 5:27 Results fo r this AM [employer]IST procedure are i n the results section. BLOOD CULTURE, AEROBIC & Routine 12/01/2019 5:05 Results for this ANAEROBIC AM [employer] procedure are i n the results section. URINALYSIS SCREEN AND STAT 12/01/2019 4:38 Re sults for this MICROSCOPY, WITH REFLEX AM [employer]IST proc edure are in TO CULTURE the results section. ESTIMATED GFR STAT 12/01/2019 4:35 Results fo r this AM [employer] procedure are i n the results section. LACTIC ACID LEVEL, STAT 12/01/2019 4:35 Resul ts for this SEPSIS - NOW AND REPEAT AM [employer]IST proc edure are in 2X EVERY 3 HOURS the results section. COMPREHENSIVE METABOLIC STAT 12/01/2019 4:35 Results for this PANEL AM [employer] procedure are i n the results section. PARTIAL THROMBOPLASTIN STAT 12/01/2019 4:35 R esults for this TIME (PTT) AM [employer] procedure are i n the results section. PROTHROMBIN TIME WITH STAT 12/01/2019 4:35 Re sults for this INR AM [employer] procedure are i n the results section. HC COMPLETE BLD COUNT STAT 12/01/2019 4:35 Re sults for this W/AUTO DIFF AM [employer] procedure are i n the results section. BLOOD CULTURE, AEROBIC & Routine 12/01/2019 4:35 Results for this ANAEROBIC AM [employer] procedure are i n the results section. ESTIMATED GFR Routine 11/23/2019 3:25 Results fo r this AM [employer] procedure are i n the results section. BASIC METABOLIC PANEL Routine 11/23/2019 3:25 Re sults for this AM [employer] procedure are i n the results section. HC COMPLETE BLD COUNT Routine 11/23/2019 3:25 Re sults for this W/AUTO DIFF AM [employer] procedure are i n the results section. GASTROINTESTINAL PANEL Routine 11/21/2019 8:46 R esults for this PM [employer] procedure are i n the results section. TROPONIN Timed 11/21/2019 5:20 Results for this PM [employer] procedure are i n the results section. XR CHEST 1 VW PORTABLE Routine 11/21/2019 12:34 R esults for this PM [employer] procedure are i n the results section. ECG 12-LEAD Routine 11/21/2019 11:26 Results for this AM [employer] procedure are i n the results section. TROPONIN Timed 11/21/2019 11:15 Results for this AM [employer] procedure are i n the results section. ESTIMATED GFR Routine 11/21/2019 5:15 Results fo r this AM [employer] procedure are i n the results section. COMPREHENSIVE METABOLIC Routine 11/21/2019 5:15 Results for this PANEL AM [employer] procedure are i n the results section. HC COMPLETE BLD COUNT Routine 11/21/2019 5:15 Re sults for this W/AUTO DIFF AM [employer] procedure are i n the results section. URINE CULTURE Routine 11/20/2019 3:48 Results fo r this PM [employer] procedure are i n the results section. GRAM STAIN Routine 11/20/2019 3:48 Results for this PM [employer] procedure are i n the results section. URINALYSIS SCREEN AND Routine 11/20/2019 3:21 Re sults for this MICROSCOPY, WITH REFLEX PM [employer] proc edure are in TO CULTURE the results section. GASTROINTESTINAL PANEL Routine 11/19/2019 6:25 R esults for this PM [employer] procedure are i n the results section. ESTIMATED GFR STAT 11/19/2019 5:20 Results fo r this PM [employer] procedure are i n the results section. LIPASE LEVEL STAT 11/19/2019 5:20 Results for this PM [employer] procedure are i n the results section. COMPREHENSIVE METABOLIC STAT 11/19/2019 5:20 Results for this PANEL PM [employer] procedure are i n the results section. HC COMPLETE BLD COUNT STAT 11/19/2019 5:20 Re sults for this W/AUTO DIFF PM [employer] procedure are i n the results section. ESTIMATED GFR Routine 11/01/2019 4:25 Results fo r this AM [employer] procedure are i n the results section. HC COMPLETE BLD COUNT Routine 11/01/2019 4:25 Re sults for this W/AUTO DIFF AM [employer] procedure are i n the results section. BASIC METABOLIC PANEL Routine 11/01/2019 4:25 Re sults for this AM [employer] procedure are i n the results section. ESTIMATED GFR Routine 10/31/2019 5:00 Results fo r this AM [employer] procedure are i n the results section. HC COMPLETE BLD COUNT Routine 10/31/2019 5:00 Re sults for this W/AUTO DIFF AM [employer] procedure are i n the results section. BASIC METABOLIC PANEL Routine 10/31/2019 5:00 Re sults for this AM [employer] procedure are i n the results section. ESTIMATED GFR Routine 10/30/2019 4:00 Results fo r this AM [employer] procedure are i n the results section. HC COMPLETE BLD COUNT Routine 10/30/2019 4:00 Re sults for this W/AUTO DIFF AM [employer] procedure are i n the results section. BASIC METABOLIC PANEL Routine 10/30/2019 4:00 Re sults for this AM [employer]IST procedure are i n the results section. ESTIMATED GFR Routine 10/29/2019 3:10 Results fo r this AM [employer] procedure are i n the results section. HC COMPLETE BLD COUNT Routine 10/29/2019 3:10 Re sults for this W/AUTO DIFF AM [employer] procedure are i n the results section. BASIC METABOLIC PANEL Routine 10/29/2019 3:10 Re sults for this AM [employer] procedure are i n the results section. CT LUMBAR SPINE WO Routine 10/28/2019 2:52 Resul ts for this CONTRAST PM [employer] procedure are i n the results section. ECG 12-LEAD Routine 10/28/2019 9:27 Results for this AM [employer] procedure are i n the results section. GRAM STAIN Routine 10/28/2019 7:31 Results for this AM [employer] procedure are i n the results section. URINE CULTURE Routine 10/28/2019 7:31 Results fo r this AM [employer] procedure are i n the results section. XR SHOULDER 2+ VW RIGHT STAT 10/28/2019 7:11 Results for this AM [employer] procedure are i n the results section. ECG 12-LEAD STAT 10/28/2019 6:22 Results for this AM [employer] procedure are i n the results section. XR PELVIS 1 OR 2 VW STAT 10/28/2019 6:18 Resu lts for this AM [employer]IST procedure are i n the results section. SMEAR REVIEW STAT 10/28/2019 5:40 Results for this AM [employer] procedure are i n the results section. ESTIMATED GFR STAT 10/28/2019 5:40 Results fo r this AM [employer] procedure are i n the results section. COMPREHENSIVE METABOLIC STAT 10/28/2019 5:40 Results for this PANEL AM [employer] procedure are i n the results section. HC COMPLETE BLD COUNT STAT 10/28/2019 5:40 Re sults for this W/AUTO DIFF AM [employer] procedure are i n the results section. URINALYSIS SCREEN AND Routine 10/28/2019 5:30 Re sults for this MICROSCOPY, WITH REFLEX AM [employer] proc edure are in TO CULTURE the results section. ESTIMATED GFR Routine 10/19/2019 6:30 Results fo r this AM [employer] procedure are i n the results section. BASIC METABOLIC PANEL Routine 10/19/2019 6:30 Re sults for this AM [employer]IST procedure are i n the results section. HC COMPLETE BLD COUNT Routine 10/19/2019 4:00 Re sults for this W/AUTO DIFF AM [employer] procedure are i n the results section. SMEAR REVIEW Routine 10/18/2019 5:50 Results for this AM [employer] procedure are i n the results section. ESTIMATED GFR Routine 10/18/2019 5:50 Results fo r this AM [employer] procedure are i n the results section. HC COMPLETE BLD COUNT Routine 10/18/2019 5:50 Re sults for this W/AUTO DIFF AM [employer] procedure are i n the results section. BASIC METABOLIC PANEL Routine 10/18/2019 5:50 Re sults for this AM [employer]IST procedure are i n the results section. ESTIMATED GFR Routine 10/17/2019 5:45 Results fo r this AM [employer]IST procedure are i n the results section. HC COMPLETE BLD COUNT Routine 10/17/2019 5:45 Re sults for this W/AUTO DIFF AM [employer] procedure are i n the results section. BASIC METABOLIC PANEL Routine 10/17/2019 5:45 Re sults for this AM [employer] procedure are i n the results section. ESTIMATED GFR Routine 10/16/2019 10:09 Results fo r this AM [employer] procedure are i n the results section. HC COMPLETE BLD COUNT Routine 10/16/2019 10:09 Re sults for this W/AUTO DIFF AM [employer] procedure are i n the results section. BASIC METABOLIC PANEL Routine 10/16/2019 10:09 Re sults for this AM [employer] procedure are i n the results section. CLOSTRIDIUM DIFFICILE Routine 10/16/2019 4:20 Re sults for this TOXIN AM [employer]IST procedure are i n the results section. TROPONIN Timed 10/14/2019 6:20 Results for this AM [employer] procedure are i n the results section. LACTIC ACID LEVEL, Timed 10/14/2019 6:20 Resul ts for this SEPSIS - NOW AND REPEAT AM [employer]IST proc edure are in 2X EVERY 3 HOURS the results section. TROPONIN Timed 10/13/2019 10:40 Results for this PM [employer] procedure are i n the results section. LACTIC ACID LEVEL, Timed 10/13/2019 10:40 Resul ts for this SEPSIS - NOW AND REPEAT PM [employer] proc edure are in 2X EVERY [address] results section. CT ABDOMEN PELVIS W STAT 10/13/2019 3:18 Resu lts for this CONTRAST PM [employer] procedure are i n the results section. GRAM STAIN Routine 10/13/2019 2:04 Results for this PM [employer] procedure are i n the results section. URINE CULTURE Routine 10/13/2019 2:04 Results fo r this PM [employer] procedure are i n the results section. BLOOD CULTURE, AEROBIC & Routine 10/13/2019 1:44 Results for this ANAEROBIC PM [employer] procedure are i n the results section. ESTIMATED GFR STAT 10/13/2019 1:40 Results fo r this PM [employer] procedure are i n the results section. TROPONIN Timed 10/13/2019 1:40 Results for this PM [employer] procedure are i n the results section. COMPREHENSIVE METABOLIC STAT 10/13/2019 1:40 Results for this PANEL PM [employer] procedure are i n the results section. HC COMPLETE BLD COUNT STAT 10/13/2019 1:40 Re sults for this W/AUTO DIFF PM [employer] procedure are i n the results section. LACTIC ACID LEVEL, STAT 10/13/2019 1:40 Resul ts for this SEPSIS - NOW AND REPEAT PM [employer]IST proc edure are in 2X EVERY 3 HOURS the results section. BLOOD CULTURE, AEROBIC & Routine 10/13/2019 1:40 Results for this ANAEROBIC PM [employer] procedure are i n the results section. XR CHEST 1 VW PORTABLE STAT 10/13/2019 1:37 R esults for this PM [employer]IST procedure are i n the results section. ECG 12-LEAD STAT 10/13/2019 1:27 Results for this PM [employer] procedure are i n the results section. URINALYSIS SCREEN AND Routine 10/13/2019 1:02 Re sults for this MICROSCOPY, WITH REFLEX PM [employer]IST proc edure are in TO CULTURE the results section. ECG ED PRELIMINARY Routine 10/13/2019 12:47 Resul ts for this INTERPRETATION PM [employer]IST procedure are in the results section. URINE [...] in TO CULTURE the results section. after 04/03/2019 Results Estimated GFR (12/04/2019 7:50 AM [employer] UP ARTIST)Only the most recent of42 resultswithin the time period is included. Estimated GFR 72 mL/min/1.73 SAD[facility] LABOY Comment: m2 [employer] [facility] Catergory Units Interpretation HOS PITAL G1 >=90 [...] specimen Performing Organization Address City/State/Zipcode Phone Number [facility] DEPARTMENT OF PATHOLOGY [address] [facility] [place]. [place] [address] AND GENOMIC MEDICINE [place] [facility] [address] [facility] [place]. [place], [place] [phone] [place] [address] Basic metabolic panel (12/04/2019 7:50 AM MAKE UP ARTIST)Only the most recent of18 results within the time period is included. Pathologist Sig nature Sodium 139 135 - 148 mEq/L [facility] Potassium 4.2 3.5 - 5.0 mEq/L [facility] Chloride 108 98 - 112 mEq/L [facility] CO2 21 (L) 24 - 31 mEq/L [facility] Anion gap 10@ANIO 7 - 15 mEq/L [facility] BUN 14 8 - 23 mg/dL [facility] Creatinine 0.81 0.50 - 0.90 mg/dL [facility] Glucose 102 (H) 65 - 99 mg/dL [facility] Calcium 9.0 8.8 - 10.2 mg/dL [facility] Specimen Plasma specimen Performing Organization Address City/[facility]/Zipcode Phone Number [facility] DEPARTMENT OF PATHOLOGY [address] [place] [address] [facility] [address] XR Chest 1 Vw Portable (12/03/2019 7:20 AM MAKE UP ARTIST)Only the most recent of5 results within the time period is included. Specimen Narrative Performed At EXAMINATION: XR CHEST 1 VW PORTABLE [facility]ANT CLINICAL HISTORY: cough COMPARISON: To a previous examination from 12/01/2019 IMPRESSION: The heart is normal in appearance. The lungs are clear . Presumed postsurgical changes are noted involving the distal left clavicle. [id number] Procedure Note Hm Interface, Radiology Results Incoming - 12/03/2019 7:29 AM [facility] UP ARTIST EXAMINATION: XR CHEST 1 VW PORTABLE CLINICAL HISTORY: cough COMPARISON: To a previous examination f rom 12/01/2019 IMPRESSION: The heart is normal in appearance. The l ungs are clear. Presumed postsurgical changes are noted involving the distal left clavicle. [id number] Performing Organization Address City/State/Zipcode Phone Number [facility] [address] [place] [address] Urine culture (12/02/2019 12:53 PM MAKE UP ARTIST)Only the most recent of17 resultswithin the time period is included. Urine culture Mixed shilpi <=10-3 col/cc [facility] IST isolate Comment: HOSPITAL Specimen Information Specimen Source: Urine Specimen Site: Clean catch Specimen Urine Performing Organization Address City/State/Zipcode Phone Number [facility] DEPARTMENT OF PATHOLOGY AND [address] [place], [place] [address] [facility] [address] [place] [address] Urinalysis screen and microscopy, with reflex to culture (12/02/2019 11:30 AM MAKE UP ARTIST)Only the most recent of17 resultswithin the time period is included. Specimen site Clean catch [facility] Color, UA Yellow [facility] Appearance, UA Turbid [facility] Specific gravity, UA 1.013 1.001 - 1.030 [facility] pH, UA 5.0 5.0 - 9.0 [facility] Protein, UA 2+ (A) Negative [facility] Glucose, UA Negative Negative [facility] Ketones, UA Negative Negative [facility] Bilirubin, UA Negative Negative [facility] Blood, UA Negative Negative [facility] Nitrite, UA Positive (A) Negative [facility] Urobilinogen, UA 2.0 (A) <2.0 E.U./dL [facility] Leukocyte esterase, Moderate (A) Negative [facility] Epithelial cells, UA 10 /HPF [facility] Round epithelial 1 0 - 5 /HPF [facility] cells, UA [facility] WBC, UA >200 (H) 0 - 4 /HPF [facility] RBC, UA 17 (H) 0 - 5 /HPF [facility] Bacteria, UA Few None seen [facility] WBC clumps, UA Many (A) [facility] Yeast, UA Few (A) [facility] Yeast with Few (A) [facility] pseudohyphae, UA [facility] Specimen Urine Performing Organization Address City/[facility]/Zipcode Phone Number [facility] DEPARTMENT OF PATHOLOGY [address] [facility] [address] [facility] [address] [facility] [place] [address] HOSPITAL Amikacin level, peak (12/02/2019 10:15 AM MAKE UP ARTIST) Pathologist Sig [facility] Amikacin, peak 30.6 (H) 20.0 - 25.0 ug/mL [facility] Specimen Plasma specimen Performing Organization Address City/[facility]/Zipcode Phone Number [facility] DEPARTMENT OF PATHOLOGY AND [address] [place], [place] [address] [facility] [address] [place] [address] Amikacin level, trough (12/02/2019 8:50 AM MAKE UP ARTIST) Pathologist Sig [facility] Amikacin, trough 2.4 (L) 5.0 - 10.0 ug/mL [facility] Specimen Plasma specimen Performing Organization Address City/[facility]/Zipcode Phone Number [facility] DEPARTMENT OF PATHOLOGY AND [address] [place] [address] [phone] [address] [place] Renal (12/02/2019 5:59 AM MAKE UP ARTIST) Specimen Narrative Performed At EXAMINATION: US RENAL [...] stones or hydronephrosis. 5.The bladder is unremarkable. [id number] Procedure Note Interface, Radiology Results Incoming - 12/02/2019 7:19 AM MAKE UP ARTIST EXAMINATION: US RENAL CLINICAL HISTORY: Renal failure [...] stones or hydronephrosis. 5.The bladder is unremarkable. [id number] Performing Organization Address City/State/Zipcode Phone Number [facility] [address] [place] [address] CBC with platelet and differential (12/02/2019 5:10 AM MAKE UP ARTIST)Only the most recent of39 resultswithin the time period is included. WBC 6.2 4.5 - 11.0 k/uL [facility] RBC 2.97 (L) 4.20 - 5.50 [facility] m/uL [facility] HGB 9.1 (L) 12.0 - 16.0 [facility] g/dL [facility] HCT 29.6 (L) 37.0 - 47.0 % [facility] MCV 99.7 82.0 - 100.0 fL [facility] MCH 30.6 27.0 - 34.0 pg [facility] MCHC 30.7 (L) 31.0 - 37.0 [facility] g/dL [facility] RDW - SD 48.4 37.0 - 55.0 fL [facility] MPV 9.8 6.9 - 11.0 fL [facility] Platelet count 195 150 - 400 K/uL [facility] Nucleated RBC 0.00 /100 WBC [facility] Neutrophils 76.5 (H) 39.0 - 69.0 % [facility] Lymphocytes 7.9 (L) 25.0 - 45.0 % [facility] Monocytes 13.9 (H) 0.0 - 10.0 % [facility] Eosinophils 1.1 0.0 - 5.0 % [facility] Basophils 0.3 0.0 - 1.0 % [facility] Immature granulocytes 0.3 0.0 - 1.0 % [facility] Specimen Blood Performing Organization Address City/State/Zipcode Phone Number [facility] DEPARTMENT OF PATHOLOGY [address] [facility] [place]. [place] [address] AND GENOMIC MEDICINE [address] [place] [address] [facility] Uric acid level (12/02/2019 5:10 AM MAKE UP ARTIST) Pathologist [facility] Uric acid 6.0 (H) 2.4 - 5.7 mg/dL [facility] Specimen Plasma specimen Performing Organization Address [facility] Phone Number [facility] DEPARTMENT OF PATHOLOGY [address] [place] [address] Creatine kinase, total (CPK) (12/02/2019 5:10 AM MAKE UP ARTIST)Only the most recent of2 resultswithin the time period is included. Pathologist [facility] Creatine kinase 27 26 - 192 U/L [facility] Specimen Plasma specimen Performing Organization Address [facility] Phone Number [facility] DEPARTMENT OF PATHOLOGY [address] [place] [address] Comprehensive metabolic panel (12/02/2019 5:10 AM MAKE UP ARTIST)Only the most recent of24 resultswithin the time period is included. Pathologist [facility] Sodium 140 135 - 148 mEq/L [facility] Potassium 4.5 3.5 - 5.0 mEq/L [facility] Chloride 110 98 - 112 mEq/L [facility] CO2 21 (L) 24 - 31 mEq/L [facility] Anion gap 9@ANIO 7 - 15 mEq/L [facility] BUN 12 8 - 23 mg/dL [facility] Creatinine 1.03 (H) 0.50 - 0.90 [facility] mg/dL [facility] Glucose 97 65 - 99 mg/dL [facility] Calcium 8.9 8.8 - 10.2 [facility] mg/dL [facility] Protein 5.2 (L) 6.3 - 8.3 g/dL [facility] Albumin 3.0 (L) 3.5 - 5.0 g/dL [facility] A/G ratio 1.4 0.7 - 3.8 [facility] Alkaline phosphatase 100 35 - 104 U/L [facility] AST 13 10 - 35 U/L [facility] ALT 7 5 - 50 U/L [facility] Total bilirubin 0.3 0.2 - 1.2 mg/dL [facility] Specimen Plasma specimen Performing Organization Address [facility] [place] [place] Phone Number [facility] DEPARTMENT OF PATHOLOGY [address] [place] [address] Protein, urine, random (12/01/2019 7:30 PM MAKE UP ARTIST) Pathologist Sig nature Total volume, urine 30 mL [facility] Urine protein 102 mg/dL [facility] Urine protein excretion 31 mg/vol [facility] Specimen Urine Performing Organization Address [facility] [place] [place] Phone Number [facility] DEPARTMENT OF PATHOLOGY [address] [place] [address] Creatinine level, urine, random (12/01/2019 7:30 PM MAKE UP ARTIST) Pathologist Sig nature Total volume, urine 30 mL [facility] Urine creatinine 24 mg/dL [facility] Urine creatinine excretion 7 mg/vol [facility] Specimen Urine Performing Organization Address [facility] [place] [place] Phone Number [facility] DEPARTMENT OF PATHOLOGY [address] [place] [address] Lactic acid level, SEPSIS - Now and repeat 2x every 3 hours (12/01/2019 7:30 AM MAKE UP ARTIST)Only the most recent of17 resultswithin the time period is included. Pathologist Sig nature Lactic acid 1.9 0.5 - 2.2 mmol/L [facility] Specimen Plasma specimen Performing Organization Address City/[facility] Phone Number [facility] DEPARTMENT OF PATHOLOGY [address] [place] [address] Blood culture, aerobic & anaerobic (12/01/2019 5:05 AM MAKE UP ARTIST)Only the most recent of16 resultswithin the time period is included. Pathologist [facility] Blood culture No growth after 5 days of incubation. MARYLOU LABOY isolate Comment: HOSPITAL Specimen Information Specimen Source: Blood Specimen Site: Wrist, right Specimen Blood - Wrist, right Performing Organization Address City/[facility] Phone Number [facility] DEPARTMENT OF PATHOLOGY AND [address] [place], [place] [address] [facility] [address] [place] [address] Partial thromboplastin time, activated (12/01/2019 4:35 AM MAKE UP ARTIST)Only the most recent of2 resultswithin the time period is included. [facility] PTT 25.3 23.0 - 36.0 [facility] Comment: [facility] PTT therapeutic range for unfractionated heparin is HOSPITAL 61.0-112.0 seconds which corresponds to Anti-Xa 0.3-0.7 U/ml. Specimen Blood Performing Organization Address [facility] Phone Number [facility] DEPARTMENT OF PATHOLOGY [id number] [place] [address] Prothrombin time with INR (12/01/2019 4:35 AM MAKE UP ARTIST)Only the most recent of2 resultswithin the time period is included. [facility] Prothrombin time 13.7 11.5 - 14.5 [facility] INR 1.1 [place] Comment: NARDA LOZANO [facility] Normalized Ratio (INR) is a therapeu [facility] monitoring tool for patients who are stable on oral anticoagulant therapy. An INR of 2.0-3.0 is suggested for deep vein thrombosis/pulmonary embolism. Specimen Blood Performing Organization Address [facility] Phone Number [facility] DEPARTMENT OF PATHOLOGY [id number] [place] [address] Gastrointestinal panel (11/21/2019 8:46 PM MAKE UP ARTIST)Only the most recent of2 results within the time period is included. [facility] Gastrointestinal panel Negative for all pathogens tested: [place] Negative for Salmonella BUDDHISM Negative for Campylobacter [facility] Negative for Diarrheagenic E coli/Shigella Negative [...] Nonpreserved Performing Organization Address City/State/Zipcode Phone Number [facility] DEPARTMENT OF PATHOLOGY AND [address] [place], [place] [address] [place] [address] [address] Troponin (11/21/2019 5:20 PM MAKE UP ARTIST)Only the most recent of9 resultswithin the time period is included. Troponin <0.006 0.000 - 0.040 [facility] Comment: ng/mL [facility] In patients suspected of having a myocardial [...] ng/mL Specimen Plasma specimen Performing Organization Address City/[facility]/Zipcode Phone Number [facility] DEPARTMENT OF PATHOLOGY [address] [facility] [address] AND [facility] [id number] [place] [address] X [address] HOSPITAL ECG 12 lead (11/21/2019 11:26 AM MAKE UP ARTIST)Only the most recent of7 resultswithin the time period is included. Pathologist Sig nature Ventricular rate 74 [facility] Atrial rate 74 [facility] MD interval 178 [facility] QRSD interval 70 [...] is no t available. Performing Organization Address [facility] Phone Number [facility] MUSE [address] [place] [address] Gram stain (11/20/2019 3:48 PM MAKE UP ARTIST)Only the most recent of15 resultswithin the time period is included. Gram stain result Occasional WBC's [facility] Moderate Gram negative rods [facility] Comment: Specimen Information Specimen Source: Urine Specimen Site: Catheterized Specimen Urine - Catheterized Performing Organization Address City/[facility]/Zipcode Phone Number [facility] DEPARTMENT OF PATHOLOGY AND [address] [place], [place] [address] [facility] [address] [place] [address] Lipase level (11/19/2019 5:20 PM MAKE UP ARTIST)Only the most recent of4 resultswithin the time period is included. Pathologist Sig nature Lipase 7 (A) 13 - 60 U/L [facility] Specimen Plasma specimen Performing Organization Address City/State/Zipcode Phone Number [facility] DEPARTMENT OF PATHOLOGY [address] [facility] [address] [facility] [address] [facility] [place] [address] [facility] [address] Lumbar Spine Wo Contrast (10/28/2019 2:52 PM MAKE UP ARTIST) Specimen Narrative Performed At EXAMINATION: CT LUMBAR [...] pro trusion. Bilateral facet arthropathy. There is fuzf-js-vdzoulmq neural fo raminal stenosis. The central canal [...] scoliosis of lumbar spine resulting in mi dt-ju-yvgfmxyc neural foraminal stenosis as described a fran [id number] Procedure Note Hm Interface, Radiology Results Incoming - 10/28/2019 3:05 PM MAKE UP ARTIST EXAMINATION: CT LUMBAR SPINE WO CONTRAST CLINICAL [...] disc protrusion. Bilateral facet arthropathy. There is hrpi-tt-prpogjrd neural foraminal stenosis. The central canal is [...] dextroconvex scoliosis of lumbar spine resulting in jqzv-gw-wkuwzpbe neural foraminal stenosis as described above [id number] Performing Organization Address [facility] Phone Number [facility] [address] [place] [address] XR Shoulder 2+ Vw Right (10/28/2019 7:11 AM MAKE UP ARTIST) Specimen Narrative Performed At EXAMINATION: XR SHOULDER 2 VW RIGHT HM [facility] CLINICAL HISTORY: shoulder pain COMPARISON: Most recent [facility] prior. IMPRESSION: There is no acute fracture. Joint spaces are preserved . Soft tissues are unremarkable. [id number] Procedure Note Interface, Radiology Results Incoming - 10/28/2019 8:14 AM MAKE UP ARTIST EXAMINATION: XR SHOULDER 2 VW RIGHT CLINICAL HISTORY: shoulder pain COMPARISON: Most recent [facility] prior. IMPRESSION: There is no acute fracture. Joint spaces are preserved. Soft tissues are unremarkable. [id number] Performing Organization Address [facility] Phone Number [facility] [address] [place] [address] XR Pelvis 1 Or 2 Vw (10/28/2019 6:18 AM MAKE UP ARTIST) Specimen Narrative Performed At EXAMINATION: XR PELVIS 1 OR 2 VW HM [facility] CLINICAL HISTORY: fall COMPARISON: Most recent [facility] prior. IMPRESSION: Post-ORIF changes involving the proximal right femur, without evidence of loosening or hardware failure. No acute fracture. O ld right femoral neck fracture is present. There are surgical raphael i n the right pelvis. There is moderate degenerative c hange at the right hip. [id number] Procedure Note Interface, Radiology Results Incoming - 10/28/2019 8:12 AM MAKE UP ARTIST EXAMINATION: XR PELVIS 1 OR 2 VW CLINICAL HISTORY: fall COMPARISON: Most recent [facility] prior. IMPRESSION: Post-ORIF changes involving the proximal right femur, without evidence of loosening or hardware failure. No acute fracture. Old right femoral neck fracture is present. There are surgical raphael in the right pelvis. There is moderate degenerative change at the right hip. [id number] Performing Organization Address City/[facility]/Zipcode Phone Number [facility] [address] [place] [address] Smear review (10/28/2019 5:40 AM MAKE UP ARTIST)Only the most recent of2 resultswithin the time period is included. Platelet slide review Maritza slt decr (A) [facility] Anisocytosis Moderate [facility] Ovalocytes Moderate [facility] Specimen Performing Organization Address City/[facility]/Zipcode Phone Number [facility] DEPARTMENT OF PATHOLOGY [address] [facility] [address] AND [facility] [address] [facility] X [address] HOSPITAL C difficile toxin (10/16/2019 4:20 AM MAKE UP ARTIST)Only the most recent of2 results within the time period is included. Clostridium Positive for C. difficile toxin (A) [facility] difficile toxin Comment: HOSPITAL Specimen Information Specimen Source: Stool Specimen Site: Nonpreserved Specimen Stool - Nonpreserved Performing Organization Address City/[facility]/Zipcode Phone Number [facility] DEPARTMENT OF PATHOLOGY AND [address] [place], [place] [address] [facility] [address] [place] [address] CT Abdomen Pelvis W Contrast (10/13/2019 3:18 PM MAKE UP ARTIST) Specimen Narrative Performed At EXAMINATION: CT ABDOMEN [...] findings in the abdomen or pe lvis. [id number] Procedure Note Hm Interface, Radiology Results Incoming - 10/13/2019 3:34 PM MAKE UP ARTIST EXAMINATION: CT ABDOMEN PELVIS W CONTRAST CLINICAL [...] findings in the abdomen or pe lvis. [facility]-[id number] Performing Organization Address City/State/Zipcode Phone Number [facility] [address] [place] [address] ECG ED Preliminary Interpretation - Not an Order (10/13/2019 12:47 PM MAKE UP ARTIST)Only the most recent of3 resultswithin the time period is included. Narrative Performed At Sada Foster MD 10/13 9:10 PM ECG ED Preliminary Interpretation - Not an Order Performed by: Levi Noel PA Authorized by: Sada Foster MD ECG reviewed by ED Physician in the abse nce of a steam plant operator: yes Previous ECG: Previous ECG: Unavailable Interpretation: [...] No acute intracranial hemorrhage or mass effect. [id number] Procedure Note Hm Interface, Radiology Results Incoming [...] No acute intracranial hemorrhage or mass effect. [facility]-[id number] Performing Organization Address City/State/Zipcode Phone Number [facility] [address] [place] [address] Respiratory pathogen panel (07/13/2019 1:58 PM CDT) Pathologist [facility] Respiratory Negative for all pathogens tested: [place] pathogen panel Negative for Adenovirus BUDDHISM Negative for Coronavirus HKU1 [facility] Negative for Coronavirus NL63 Negative for [...] Specimen Nares - Left Performing Organization Address City/[facility]/Zipcode Phone Number [facility] DEPARTMENT OF PATHOLOGY AND [address] [place], [place] [address] [address] Influenza antigen test, reflex negative to RPP (07/13/2019 1:58 PM CDT) [facility] Influenza antigen Negative for Influenza A/B antigen. [facility] Comment: LITHONIA Specimen Information [facility] Specimen Source: Nares Specimen Site: Left Specimen Nares - Left Performing Organization Address City/State/Zipcode Phone Number [facility] DEPARTMENT OF PATHOLOGY [address] [facility] [address] AND [facility] [address] [facility] [address] [facility] Group A strep, rapid antigen (07/13/2019 1:58 PM CDT) [facility] Group A strep, Negative for Group A Streptococcus antigen. [facility] rapid antigen Comment: LITHONIA result Specimen Information [facility] Specimen Source: Throat Specimen Site: Not otherwise specified Specimen Throat - Not otherwise specified Performing Organization Address City/[facility]/Zipcode Phone Number [facility] DEPARTMENT OF PATHOLOGY [address] [facility] X [address] AND [facility] [id number] [place] [address] X [address] HOSPITAL Strep screen culture (07/13/2019 1:58 PM CDT) Strep screen No beta hemolytic Streptococci isolated H [place] BUDDHISM culture isolate Comment: HOSPITAL Specimen Information Specimen Source: Throat Specimen Site: Not otherwise specified Specimen Throat - Not otherwise specified Performing Organization Address City/[facility]/Zipcode Phone Number [facility] DEPARTMENT OF PATHOLOGY AND [address] [place], [place] [address] [facility] [address] [place] [address] Manual differential (07/01/2019 5:30 AM CDT)Only the most recent of4 results within the time period is included. Manual differential PERFORMED [facility] Neutrophils 62.0 39.0 - 69.0 % [facility] Lymphocytes 12.0 (L) 25.0 - 45.0 % [facility] Monocytes 16.0 (H) 0.0 - 10.0 % [facility] Eosinophils 6.0 (H) 0.0 - 5.0 % [facility] Basophils 2.0 (H) 0.0 - 1.0 % [facility] Myelocytes 2 % [facility] Platelet slide review Maritza slt decr (A) [facility] Anisocytosis Moderate [facility] Polychromasia Moderate [facility] Spherocytes Occasional [facility] Ovalocytes Moderate [facility] Specimen Performing Organization Address City/[facility]/Zipcode Phone Number [facility] DEPARTMENT OF PATHOLOGY [address] [facility] [place] [address] AND [facility] [address] [facility] [place] [address] HOSPITAL XR Lumbar Spine 2 Or 3 [...] Vi sualized upper sacrum is grossly intact. [id number] Procedure Note Interface, Radiology Results Incoming - [...] L4. Visualized upper sacrum is grossly intact. [id number] Performing Organization Address City/State/Zipcode Phone [facility] [address] [place] [address] XR Abdomen 1 Vw (06/07/2019 12:07 PM [...] The visualized lung bases are clear . [id number] Procedure Note Interface, Radiology Results Incoming - [...] 5. The visualized lung bases are clear. [id number] Performing Organization Address City/State/Zipcode Phone Number [facility] [address] [place] [address] CT Renal Stone Protocol (06/03/2019 2:45 PM CDT)Only the most recent of2 resultswithin the time period is included. Specimen Narrative Performed At EXAMINATION: CT RE[facility] ST[facility] CLINICAL HISTORY: pelvic pain [...] . IMPRESSION: No evidence of acute process. [facility]-[id number] Procedure Note Hm Interface, Radiology Results Incoming [...] t aneurysm. Osteopenic and degenerative changes in [facility] bones. Pronounced right hip osteoarthritis. Intramedullary nail partly seen in the right femur. Stable moderate L1 compression deformity. IMPRESSION: No evidence of acute process. [id number] Performing Organization Address City/[facility]/Zipcode Phone Number [facility] [address] [place] [address] Magnesium level (05/15/2019 5:20 AM CDT) Pathologist Sig nature Magnesium 2.0 1.6 - 2.4 mg/dL [facility] Specimen Plasma specimen Performing Organization Address City/[facility]/Zipcode Phone Number [facility] DEPARTMENT OF PATHOLOGY [address] [facility] [address] [facility] [address] [facility] X [address] HOSPITAL IR PICC Placement (04/16/2019 2:03 PM CDT) Specimen Narrative Performed At Procedure [facility] Placement of a right upper extremity PIC C. Clinical Indication Central venous access for IV antibiotics Anesthesia Lidocaine 1%. Sedation None Technique Written informed consent was obtained prior to the pro cedure. All elements of maximal sterile barrier technique were fol lowed. The right upper extremity was sterilely prepared and draped in [facility] routine manner. Lidocaine 1% was used for local anesthet ic. Using real-time ultrasound guidance, a 21-gauge microp uncture needle was used to access the right brachial vein. A 0.018 inch g uidewire was advanced centrally to the right atrium under fluorosco py. The needle was removed and a 5.5-Kuwaiti peel-away sheat h was then placed. Under ultrasound guidance, documenta tion of vessel patency, needle access with permanent recording, and r eporting are performed followed by placement of a sheath in the rig ht brachial vein. A 38 cm long 5-Kuwaiti dual-lumen P ower PICC was then deployed [...] of a 38 cm lo ng 5 Kuwaiti dual-lumen Power PICC via the right brachial vein. The catheter tip lies at the right atrium/superior vena cava j unction and is ready for use. [facility]-[id number] Procedure Note Hm Interface, Radiology Results Incoming [...] fluoroscopy. The needle was removed and a 5.5-Kuwaiti peel-away sheat h was then placed. Under ultrasound michele nce, documentation of vessel patency, needle access with permanent recording, and reporting are performed followed by placement of a sheath in the right brachial vein. A 38 cm long 5-Kuwaiti dual-lumen Power PIC C was then deployed [...] placement of a 38 cm long 5 Kuwaiti dual-lumen Power PICC via the right brachial vein. The catheter tip lies at the right atrium/superior vena cava junction and is ready for use. [facility]-[id number] Performing Organization Address City/[facility]/Zipcode Phone Number [facility] [address] [place] [address] Procalcitonin (04/14/2019 1:00 PM CDT) Procalcitonin 0.39 (H) <=0.07 ng/mL [facility] Comment: INTERPRETIVE INFORMATION: Procalcitonin Procalcitonin [...] condition(s) of the individual patient. Performed at: [facility] [address] [facility] [address] Specimen Serum Performing Organization Address City/[facility] Phone Number [facility] [address] [place] [address] [facility] [address] [place] [address] Lactic acid level (04/14/2019 1:00 PM CDT) Pathologist [facility] Lactic acid 1.7 0.5 - 2.2 mmol/L [facility] Specimen Plasma specimen Performing Organization Address City/[facility]/Zipcode Phone Number [facility] DEPARTMENT OF PATHOLOGY [address] [facility] [address] [facility] [address] [facility] [address] [facility] CBC hemogram (04/11/2019 5:18 AM CDT)Only the most recent of2 resultswithin the time period is included. Pathologist Sig nature WBC 5.8 4.5 - 11.0 k/uL [facility] RBC 2.78 (L) 4.20 - 5.50 m/uL [facility] HGB 8.5 (L) 12.0 - 16.0 g/dL [facility] HCT 28.3 (L) 37.0 - 47.0 % [facility] MCV 101.8 (H) 82.0 - 100.0 fL [facility] MCH 30.6 27.0 - 34.0 pg [facility] MCHC 30.0 (L) 31.0 - 37.0 g/dL [facility] RDW - SD 57.6 (H) 37.0 - 55.0 fL [facility] MPV 10.8 6.9 - 11.0 fL [facility] Platelet count 141 (L) 150 - 400 K/uL [facility] Nucleated RBC 0.00 /100 WBC [facility] Specimen Blood Performing Organization Address City/State/Zipcode Phone Number [facility] DEPARTMENT OF PATHOLOGY [address] [facility] [place] [address] [facility] [address] [facility] X [id number] [place] [address] CT Abdomen Pelvis Wo Contrast (04/10/2019 8:52 [...] the stomach. No acute abnormality not ed. [id number] Procedure Note Interface, Radiology Results Incoming - [...] in the stomach. No acute abnormality noted. 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 MAKE UP ARTIST C.Difficile (E) 11/22/2019 11:21 AM MAKE UP ARTIST Insurance Payer Benefit Plan / Group Subscriber ID Effective Phone Addre ss Type Dates MEDICARE MEDICARE PART A AND B xxxxxxxxxxx 2012-Pres H HENRY, KAILEE Medicare ent FORMERLY [facility] xxxxxxxxx 2020-Prese PPO COMMERCIAL nt HMO/POS/PPO (Home) [address] [place] [id number] Advance Directives For more information, please contact: [phone] Type Date Recorded Patient Meeting/Event Planner Explanati on Advance Directives, 07/13/2019 2:11 PM Living Will and Medical Power of Territory Representative Advance Directives, 06/26/2018 5:16 PM Living Will and Medical Power of Territory Representative Advance Directives, 07/23/2018 4:55 PM Living Will and Medical Power of Territory Representative Advance Directives, 11/22/2018 1:29 PM MEDICAL P OA-11/16/18 Living Will and Medical Power of Territory Representative Advance Directives, 02/17/2019 11:24 AM Living Will and Medical Power of Territory Representative Advance Directives, 06/03/2019 12:53 PM Living Will and Medical Power of Territory Representative Advance Directives, 06/11/2019 4:22 PM MEDICAL Living Will and Medical Power of Territory Representative Advance Directives, 06/11/2019 4:23 PM ADV Living Will and Medical Power of Territory Representative Advance Directives, 06/27/2019 1:33 PM ADVANCE D IRECTIVE Living Will and 06/21/2018 Medical Power of Territory Representative Advance Directives, 06/30/2019 1:23 PM Living Will and Medical Power of Territory Representative Advance Directives, 08/19/2019 1:18 PM Living Will and Medical Power of Territory Representative
[2020-04-03] MEDS ORDERED: FAMOTIDINE 20 MG/2 ML VIAL IV ONE (04:15)
[2020-04-03] MEDS ORDERED: NA CHLORIDE 0.9% 1,000 ML ONE (04:16)
[2020-04-03 05:32] LABS: Absolute Lymphocytes (CBC) 0.5 K/uL (0.7-4.9); Basophils % 0.8 % (0-1.3); Hematocrit 25.5 % (36.0-45.0); Lymphocytes % 11.5 % (15.3-44.8); MPV 8.9 fL (7.6-11.3); RBC Red Blood Cell Count 2.52 M/uL (3.86-4.86)
--- NOTE | 2020-04-03 05:34 | ER ---
Nurse's Notes [facility] Name: Tina Padron Age: 74 yrs Sex: Female : 1945 Arrival Date: 04/03/2020 Time: 03:50 Bed 7 Private MD: Diagnosis: Weakness;Urinary tract infection, site not specified;Repeated falls;Anemia, unspecified;Hypokalemia;Spondylolysis, cervical region Presentation: 04/03 03:58 Chief complaint: EMS states: "the pt reported falling while attempting to get to the [facility] bathroom this morning. she reported that she didn't turn the light on and thought she was sitting on the toilet and fell into the tub. denies LOC, she is reporting neck and backside pain with some dizziness. she was able to use her walker to get from the house to the EMS truck.". Coronavirus screen: Proceed with normal triage. Ebola Screen: Patient negative for fever greater than or equal to 101.5 degrees Fahrenheit, and additional compatible Ebola Virus Disease symptoms. Initial Sepsis Screen: Does the patient meet any 2 criteria? No. Patient's initial sepsis screen is negative. Does the patient have a suspected source of infection? No. Patient's initial sepsis screen is negative. Risk Assessment: Do you want to hurt yourself or someone else? Patient reports no desire to harm self or others. Onset of symptoms was April 03, 2020. 03:58 Method Of Arrival: EMS: [place] [address] 03:58 Acuity: TYLOR 3 jd3 Historical: - Allergies: 04:08 Compazine; jd3 04:08 Meclizine; jd3 - Home Meds: 04:08 aspirin 81 mg Oral TbEC 1 tab once daily [Active]; clonazepam 1 mg Oral tab 1 tab jd3 nightly [Active]; Azo-Standard Oral as needed [Active]; Flomax 0.4 mg Oral cp24 1 cap once daily [Active]; losartan 50 mg Oral tab 1 tab 2 times per day [Active]; omeprazole 40 mg Oral cpDR 1 cap once daily [Active]; oxycodone-acetaminophen 7.5-325 mg Oral tab 1 tab every 6 hours [Active]; pantoprazole 20 mg Oral TbEC 1 tab once daily [Active]; meclizine 25 mg Oral tab 1 tab as needed [Active]; Synthroid 88 mcg Oral tab 1 tab once daily [Active]; potassium chloride 20 mEq Oral TbTQ 1 tab 2 times per day [Active]; simvastatin 20 mg Oral tab 1 tab once daily [Active]; Uribel 118-10-40.8-36 mg Oral tab daily [Active]; - PMHx: 04:08 Hyperlipidemia; Hypothyroidism; spinal fractures; chronic uti; Anxiety; "shattered jd3 shoulder"; Hypertension; - PSHx: 04:08 l shoulder; Cholecystectomy; Hysterectomy; back; jd3 - Immunization history:: Adult Immunizations up to date. - Social history:: Smoking status: Patient denies any tobacco usage or history of. - Family history:: not pertinent. Screenin:12 Abuse screen: Denies threats or abuse. Nutritional screening: No deficits noted. jd3 Tuberculosis screening: No symptoms or risk factors identified. Fall Risk Ambulatory Aid- None/Bed Rest/Nurse Assist (0 pts). Gait- Normal/Bed Rest/Wheelchair (0 pts) Mental Status- Oriented to own ability (0 pts). Total Wick Fall Scale indicates No Risk (0-24 pts). Assessment: 04:08 General: Appears in no apparent distress. uncomfortable, Behavior is calm, cooperative, jd3 appropriate for age. Pain: Complains of pain in right low back and right mid back and left mid back and left low back and left leg and right leg Quality of pain is described as aching. Neuro: Level of Consciousness is awake, alert, obeys commands, Oriented to person, place, time, situation. Cardiovascular: Denies chest pain, Capillary refill < 3 seconds Patient's skin is warm and dry. Respiratory: Airway is patent Respiratory effort is even, unlabored, Respiratory pattern is regular, symmetrical, Denies cough, shortness of breath. GI: No signs and/or symptoms were reported involving the gastrointestinal system. Patient currently denies abdominal pain, constipation, diarrhea, nausea, vomiting. : No signs and/or symptoms were reported regarding the genitourinary system. EENT: No signs and/or symptoms were reported regarding the EENT system. Derm: Skin is intact, Skin is dry, Skin is normal, Skin temperature is warm. Musculoskeletal: Circulation, motion, and sensation intact. Range of motion: intact in all extremities. 05:15 Reassessment: Patient appears in no apparent distress at this time. No changes from jd3 previously documented assessment. Patient and/or family updated on plan of care and expected duration. Pain level reassessed. Patient is alert, oriented x 3, equal unlabored respirations, skin warm/dry/pink. 06:02 Reassessment: Patient appears in no apparent distress at this time. Patient and/or jd3 family updated on plan of care and expected duration. Pain level reassessed. Patient is alert, oriented x 3, equal unlabored respirations, skin warm/dry/pink. awaiting admission. 06:49 Reassessment: Patient and/or family updated on plan of care and expected duration. Pain jd3 level reassessed. Patient is alert, oriented x 3, equal unlabored respirations, skin warm/dry/pink. pt reported taking antibiotics for current UTI: Keflex. 07:00 Reassessment: Dr. Charlton is at the pt. bedside. General: Appears in no apparent rb1 distress. Behavior is calm, cooperative. Pain:. Neuro: Level of Consciousness is awake, alert, obeys commands, Oriented to person, place, time, situation. Respiratory: Airway is patent Respiratory effort is even, unlabored, Respiratory pattern is regular, symmetrical. Derm: Skin is pink, warm \\T\\ dry. 07:32 Reassessment: Called report to ALCIDES Hernandez. Information from the SBAR was given. All rb1 questions asked and answered. Vital Signs: 04:04 BP 115 / 74; Pulse 66; Resp 17 S; Temp 97.8(TE); Pulse Ox 98% on R/A; Weight 61.69 kg jd3 (R); Height 5 ft. 5 in. (165.10 cm) (R); Pain 8/10; 05:16 BP 111 / 54; Pulse 61; Resp 16 S; Pulse Ox 98% on R/A; jd3 06:02 BP 108 / 56; Pulse 61; Resp 18 S; Pulse Ox 100% on R/A; jd3 06:50 BP 117 / 57; Pulse 65; Resp 17 S; Pulse Ox 100% on R/A; jd3 07:30 BP 120 / 66; Pulse 67; Resp 15; Temp 97.8; Pulse Ox 100% ; rb1 04:04 Body Mass Index 22.63 (61.69 kg, 165.10 cm) j ED Course: 03:50 Patient arrived in ED. ds1 03:52 Mateo Fox MD is Attending Physician. alec 03:58 Willi Doshi, RN is Primary Nurse. jd3 04:02 Triage completed. jd3 04:05 Arm band placed on. jd3 04:12 Patient has correct armband on for positive identification. Bed in low position. Call jd3 light in reach. Side rails up X2. shelter monitor on. Pulse ox on. NIBP on. 05:03 XRAY Chest (1 view) In Process Unspecified. EDMS 05:04 Knee Left 2 View XRAY In Process Unspecified. EDMS 05:05 Pelvis XRAY In Process Unspecified. EDMS 05:05 Hand Left 3 View XRAY In Process Unspecified. EDMS 05:20 Type And Screen Sent. ds4 05:20 Lipase Sent. ds4 05:20 Basic Metabolic Panel Sent. ds4 05:20 CBC with Diff Sent. ds4 05:20 LFT's Sent. ds4 05:20 Troponin (emerg Dept Use Only) Sent. ds4 05:20 NT PRO-BNP Sent. ds4 05:20 Magnesium Sent. ds4 05:21 Urine Dipstick--Ancillary (enter results) Sent. ds4 05:31 Bozena Piña MD is Hospitalizing Provider. alec 05:39 CT Traumagram (Head C Spine CAP wo con) In Process Unspecified. EDMS 07:45 No provider procedures requiring assistance completed. Patient admitted, IV remains in rb1 place. Administered Medications: 04:47 Drug: NS 0.9% 1000 ml Route: IV; Rate: 125 ml/hr; Site: right antecubital; ea 06:32 Follow up: Response: No adverse reaction; IV Status: Infusion continued upon admission jd3 04:47 Drug: Pepcid 20 mg Route: IVP; Site: right antecubital; ea 05:45 Follow up: Response: No adverse reaction jd3 05:28 Not Given (Physician Discretion): amikacin 500 mg IVPB once over 60 mins; (mix in NS jd3 100 mL) 05:45 Drug: Tobramycin 80 mg Route: IVPB; Infused Over: 30 mins; Site: right antecubital; jd3 06:45 Follow up: Response: No adverse reaction; IV Status: Completed infusion; IV Intake: jd3 100ml 06:32 Drug: morphine 2 mg Route: IVP; Site: right antecubital; jd3 04/04 05:27 Follow up: Response: No adverse reaction; RASS: Alert and Calm (0); fallow-up done at jd3 0700 Intake: 06 06:45 IV: 100ml; Total: 100ml. jd3 Outcome: 05:33 Decision to Hospitalize by Provider. alec 07:45 Admitted to Tele accompanied by tech, via stretcher, room 402, with chart, Report rb1 called to ALCIDES Hernandez 07:45 Condition: stable 07:45 Instructed on the need for admit. 07:46 Patient left the ED. rb1 Signatures: Dispatcher [employer] EDMS Mateo Fox MD MD cha Sanford, Demi ds1 Cornelius Allen ds4 Ryanne Crabtree, RN RN rb1 Analy Aflonso RN RN ea Davies, Jonathon, RN RN jd3 Corrections: (The following items were deleted from the chart) 04:12 03:58 Chief complaint: EMS states: "the pt reported falling while attempting to get to jd3 the bathroom this morning. she reported that she didn't turn the light on and thought she was sitting on the toilet and fell into the tub. denies LOC, she is reporting neck and backside pain with some dizziness." jd3 06:55 06:49 Reassessment: Patient and/or family updated on plan of care and expected jd3 duration. Pain level reassessed. Patient is alert, oriented x 3, equal unlabored respirations, skin warm/dry/pink. pt reported taking antibiotics for current UTI: jd3 04/04 05:27 0604 07:00 Response: No adverse reaction; RASS: Alert and Calm (0) jd3 jd3
--- NOTE | 2020-04-03 05:34 | EDPHYS ---
Physician Documentation [facility] Name: Tina Padron Age: 74 yrs Sex: Female : 1945 Arrival Date: 04/03/2020 Time: 03:50 Bed 7 Private MD: ED Physician Mateo Fox HPI: 04/03 04:01 This 74 yrs old Female presents to ER via Unassigned with complaints of Fall alec Injury. 04:01 Details of fall: The patient fell from an upright position, while walking. Onset: The alec symptoms/episode began/occurred just prior to arrival. Associated injuries: The patient sustained injury to the low back, decreased range of motion. Severity of symptoms: At their worst the symptoms were moderate, in the emergency department the symptoms are unchanged. The patient has experienced similar episodes in the past, multiple times. Historical: - Allergies: 04:08 Compazine; jd3 04:08 Meclizine; jd3 - Home Meds: 04:08 aspirin 81 mg Oral TbEC 1 tab once daily [Active]; clonazepam 1 mg Oral tab 1 tab jd3 nightly [Active]; Azo-Standard Oral as needed [Active]; Flomax 0.4 mg Oral cp24 1 cap once daily [Active]; losartan 50 mg Oral tab 1 tab 2 times per day [Active]; omeprazole 40 mg Oral cpDR 1 cap once daily [Active]; oxycodone-acetaminophen 7.5-325 mg Oral tab 1 tab every 6 hours [Active]; pantoprazole 20 mg Oral TbEC 1 tab once daily [Active]; meclizine 25 mg Oral tab 1 tab as needed [Active]; Synthroid 88 mcg Oral tab 1 tab once daily [Active]; potassium chloride 20 mEq Oral TbTQ 1 tab 2 times per day [Active]; simvastatin 20 mg Oral tab 1 tab once daily [Active]; Uribel 118-10-40.8-36 mg Oral tab daily [Active]; - PMHx: 04:08 Hyperlipidemia; Hypothyroidism; spinal fractures; chronic uti; Anxiety; "shattered jd3 shoulder"; Hypertension; - PSHx: 04:08 l shoulder; Cholecystectomy; Hysterectomy; back; jd3 - Immunization history:: Adult Immunizations up to date. - Social history:: Smoking status: Patient denies any tobacco usage or history of. - Family history:: not pertinent. ROS: 04:01 Constitutional: Negative for fever, chills, and weight loss, Eyes: Negative for injury, alec pain, redness, and discharge, ENT: Negative for injury, pain, and discharge, Neck: Negative for injury, pain, and swelling, Cardiovascular: Negative for chest pain, palpitations, and edema, Respiratory: Negative for shortness of breath, cough, wheezing, and pleuritic chest pain, Abdomen/GI: Negative for abdominal pain, nausea, vomiting, diarrhea, and constipation, : Negative for injury, bleeding, discharge, and swelling, Skin: Negative for injury, rash, and discoloration, Psych: Negative for depression, anxiety, suicide ideation, homicidal ideation, and hallucinations, Allergy/Immunology: Negative for hives, rash, and allergies, Endocrine: Negative for neck swelling, polydipsia, polyuria, polyphagia, and marked weight changes, Hematologic/Lymphatic: Negative for swollen nodes, abnormal bleeding, and unusual bruising. 04:01 Back: Positive for injury or acute deformity, decreased range of motion, flank pain. 04:01 MS/extremity: Positive for tenderness, of the right leg and left leg. Exam: 04:01 Constitutional: This is a well developed, well nourished patient who is awake, alert, alec and in no acute distress. Head/Face: Normocephalic, atraumatic. Eyes: Pupils equal round and reactive to light, extra-ocular motions intact. Lids and lashes normal. Conjunctiva and sclera are non-icteric and not injected. Cornea within normal limits. Periorbital areas with no swelling, redness, or edema. ENT: Nares patent. No nasal discharge, no septal abnormalities noted. Tympanic membranes are normal and external auditory canals are clear. Oropharynx with no redness, swelling, or masses, exudates, or evidence of obstruction, uvula midline. Mucous membranes moist. Neck: Trachea midline, no thyromegaly or masses palpated, and no cervical lymphadenopathy. Supple, full range of motion without nuchal rigidity, or vertebral point tenderness. No Meningismus. Chest/axilla: Normal chest wall appearance and motion. Nontender with no deformity. No lesions are appreciated. Cardiovascular: Regular rate and rhythm with a normal S1 and S2. No gallops, murmurs, or rubs. Normal PMI, no JVD. No pulse deficits. Respiratory: Lungs have equal breath sounds bilaterally, clear to auscultation and percussion. No rales, rhonchi or wheezes noted. No increased work of breathing, no retractions or nasal flaring. Abdomen/GI: Soft, non-tender, with normal bowel sounds. No distension or tympany. No guarding or rebound. No evidence of tenderness throughout. Female : Normal external genitalia. Neuro: Awake and alert, GCS 15, oriented to person, place, time, and situation. Cranial nerves II-XII grossly intact. Motor strength 5/5 in all extremities. Sensory grossly intact. Cerebellar exam normal. Normal gait. Psych: Awake, alert, with orientation to person, place and time. Behavior, mood, and affect are within normal limits. 04:01 Back: pain, that is moderate, ROM is painful, normal spinal alignment noted, CVA tenderness, is absent, muscle spasm, is appreciated in the left low back, left mid back, right mid back and right low back. 04:51 ECG was reviewed by the Attending Physician. [facility] Vital Signs: 04:04 BP 115 / 74; Pulse 66; Resp 17 S; Temp 97.8(TE); Pulse Ox 98% on R/A; Weight 61.69 kg jd3 (R); Height 5 ft. 5 in. (165.10 cm) (R); Pain 8/10; 05:16 BP 111 / 54; Pulse 61; Resp 16 S; Pulse Ox 98% on R/A; jd3 06:02 BP 108 / 56; Pulse 61; Resp 18 S; Pulse Ox 100% on R/A; jd3 06:50 BP 117 / 57; Pulse 65; Resp 17 S; Pulse Ox 100% on R/A; jd3 07:30 BP 120 / 66; Pulse 67; Resp 15; Temp 97.8; Pulse Ox 100% ; rb1 04:04 Body Mass Index 22.63 (61.69 kg, 165.10 cm) jd3 MDM: 03:[address] [facility] 04:03 Data reviewed: vital signs, nurses notes, lab test result(s), EKG, radiologic studies, [facility] CT scan, plain films. 04:06 Differential diagnosis: chronic back pain, Fracture Joint Injury Ligament Injury alec Osteoporosis ruptured disc, sprain, vertebral fracture. Differential Diagnosis altered mental status. Differential diagnosis: closed head injury, contusion, fracture, multiple trauma, sprain, strain. Data interpreted: chief catalyst operator: rate is 66 beats/min, Pulse oximetry: on room air is 98 %. Arterial blood gas:. Test interpretation: by ED physician or midlevel provider: ECG, plain radiologic studies. Counseling: I had a detailed discussion with the patient and/or guardian regarding: the historical points, exam findings, and any diagnostic results supporting the discharge/admit diagnosis, lab results, radiology results, the need for further work-up and treatment in the hospital. 06:21 ED course: pain improved. ct traumagram was neg except for spondylosis of the cervical alec spine. 04/03 04:00 Order name: Basic Metabolic Panel; Complete Time: 05:54 [facility] 04/03 04:00 Order name: CBC with Diff [facility] 04/03 04:00 Order name: LFT's; Complete Time: 05:54 [facility] 04/03 04:00 Order name: Magnesium; Complete Time: 05:54 [facility] 04/03 04:00 Order name: NT PRO-BNP; Complete Time: 05:54 [facility] 04/03 04:00 Order name: Troponin (emerg Dept Use Only); Complete Time: 05:54 [facility] 04/03 04:00 Order name: Urine Culture [facility] 04/03 04:00 Order name: Lipase; Complete Time: 05:54 [facility] 04/03 04:00 Order name: Type And Screen [facility] 04/03 05:18 Order name: Urine Dipstick--Ancillary (enter results); Complete Time: 06:35 sg 04/03 05:34 Order name: CBC Smear Scan EDID 04/03 05:58 Order name: PTT, Activated Partial Thromb EDMS 04/03 05:58 Order name: CBC with Automated Diff EDMS 04/03 05:58 Order name: CBC with Automated Diff EDMS 04/03 04:00 Order name: XRAY Chest (1 view) [facility] 04/03 04:00 Order name: CT Traumagram (Head C Spine CAP wo con) [facility] 04/03 04:05 Order name: Knee Left [address] [facility] 04/03 04:06 Order name: Pelvis XRAY [facility] 04/03 04:24 Order name: Hand Left [address] [facility] 04/03 05:58 Order name: Comprehensive Metabolic Panel EDID 04/03 05:58 Order name: Comprehensive Metabolic Panel EDID 04/03 05:58 Order name: Protime (+INR) EDID 04/03 05:58 Order name: Protime (+INR) EDID 04/03 06:02 Order name: Other: This patient may go up to assigned bed after change of shift; sg Complete Time: 06:04 04/03 04:00 Order name: EKG; Complete Time: 04:02 [facility] 04/03 04:00 Order name: Cardiac monitoring; Complete Time: 04:13 [facility] 04/03 04:00 Order name: EKG - Nurse/Tech; Complete Time: 04:47 [facility] 04/03 04:00 Order name: IV Saline Lock; Complete Time: 04:49 [facility] 04/03 04:00 Order name: Labs collected and sent; Complete Time: 04:49 [facility] 04/03 04:00 Order name: O2 Per Protocol; Complete Time: 04:13 [facility] 04/03 04:00 Order name: O2 Sat Monitoring; Complete Time: 04:13 [facility] 04/03 04:00 Order name: Urine Dipstick-Ancillary (obtain specimen); Complete Time: 05:17 [facility] 04/03 05:54 Order name: PO challenge: juice; Complete Time: 06:02 [facility] 04/03 05:58 Order name: CONS Pharmacy Consult EDID 04/03 05:58 Order name: Heart Healthy EDID 04/03 06:02 Order name: CONS Physician Consult EDID EC:51 Rate is 65 beats/min. Rhythm is regular. QRS [place] is Normal. LA interval is normal. QRS alec interval is normal. QT interval is normal. No Q waves. T waves are Normal. No ST changes noted. Clinical impression: Normal ECG and No evidence of ischemia. Interpreted by me. Reviewed by me. Administered Medications: 04:47 Drug: NS 0.9% 1000 ml Route: IV; Rate: 125 ml/hr; Site: right antecubital; ea 06:32 Follow up: Response: No adverse reaction; IV Status: Infusion continued upon admission jd3 04:47 Drug: Pepcid 20 mg Route: IVP; Site: right antecubital; ea 05:45 Follow up: Response: No adverse reaction jd3 05:28 Not Given (Physician Discretion): amikacin 500 mg IVPB once over 60 mins; (mix in NS jd3 100 mL) 05:45 Drug: Tobramycin 80 mg Route: IVPB; Infused Over: 30 mins; Site: right antecubital; jd3 06:45 Follow up: Response: No adverse reaction; IV Status: Completed infusion; IV Intake: jd3 100ml 06:32 Drug: morphine 2 mg Route: IVP; Site: right antecubital; jd3 06 05:27 Follow up: Response: No adverse reaction; RASS: Alert and Calm (0); fallow-up done at jd3 0700 Disposition: 04/03/20 05:33 Hospitalization ordered by Bozena Piña for Inpatient Admission. Preliminary diagnosis are Weakness, Urinary tract infection, site not specified, Repeated falls, Anemia, unspecified, Hypokalemia, Spondylolysis, cervical region. - Bed requested for Telemetry/MedSurg (Inpatient). - Status is Inpatient Admission. rb1 - Condition is Fair. - Problem is new. - Symptoms have improved. Signatures: Dispatcher [employer] EDMS Addy Vale RN RN sg Anderson, Corey, MD MD cha Lasagna, Tonya RN RN tl1 Ryanne Crabtree, RN RN rb1 Analy Alfonso RN RN ea Davies, Jonathon, RN RN jd3 Corrections: (The following items were deleted from the chart) 04/03 05:55 05:33 Hospitalization Ordered by Bozena Piña MD for Inpatient Admission. Preliminary [facility] diagnosis is Weakness; Urinary tract infection, site not specified; Repeated falls; Anemia, unspecified. Bed requested for Telemetry/MedSurg (Inpatient). Status is Inpatient Admission. Condition is Fair. Problem is new. Symptoms have improved. [facility] 06:05 05:55 04/03/2020 05:33 Hospitalization Ordered by Bozena Piña MD for Inpatient tl1 Admission. Preliminary diagnosis is Weakness; Urinary tract infection, site not specified; Repeated falls; Anemia, unspecified; Hypokalemia. Bed requested for Telemetry/MedSurg (Inpatient). Status is Inpatient Admission. Condition is Fair. Problem is new. Symptoms have improved. [facility] 06:21 06:05 04/03/2020 05:33 Hospitalization Ordered by Bozena Piña MD for Inpatient alec Admission. Preliminary diagnosis is Weakness; Urinary tract infection, site not specified; Repeated falls; Anemia, unspecified; Hypokalemia. Bed requested for Telemetry/MedSurg (Inpatient). Status is Inpatient Admission. Condition is Fair. Problem is new. Symptoms have improved. tl1 07:46 06:21 04/03/2020 05:33 Hospitalization Ordered by Bozena Piña MD for Inpatient rb1 Admission. Preliminary diagnosis is Weakness; Urinary tract infection, site not specified; Repeated falls; Anemia, unspecified; Hypokalemia; Spondylolysis, cervical region. Bed requested for Telemetry/MedSurg (Inpatient). Status is Inpatient Admission. Condition is Fair. Problem is new. Symptoms have improved. alec
[2020-04-03] MEDS ORDERED: TOBRAMYCIN SULF 80 MG/2 ML VIAL ONE (05:42)
[2020-04-03] MEDS ORDERED: NA CHLORIDE 0.9% 100 ML IV ONE (05:42)
[2020-04-03 05:50] LABS: ALT/SGPT 9 U/L (12-78); AST/SGOT 10 U/L (15-37); Albumin 2.9 g/dL (3.4-5.0); Alkaline Phosphatase 83 U/L (45-117); BUN Blood Urea Nitrogen 10 mg/dL (7-18); Bicarbonate 25 mmol/L (21-32); Bilirubin Direct 0.2 mg/dL (0-0.2); Bilirubin Total 0.6 mg/dL (0.2-1.0); Glucose Level 76 mg/dL (74-106); Lipase 34 U/L (73-393); NT PRO-BNP 977 pg/mL (<125); Potassium 3.4 mmol/L (3.5-5.1); Protein, Total 5.3 g/dL (6.4-8.2); Sodium Level 143 mmol/L (136-145); Troponin (Emerg Dept Use Only) < 0.02 ng/mL (0.0-0.045)
[2020-04-03] MEDS ORDERED: MORPHINE 2 MG/ML SYR IV PRN (05:54)
[2020-04-03] MEDS ORDERED: ACETAMINOPHEN 500 MG TAB PO PRN (05:54)
[2020-04-03] MEDS ORDERED: ONDANSETRON 4 MG/2 ML VIAL IV PRN (05:54)
[2020-04-03 05:55] LABS: Urine Blood NEGATIVE (NEG); Urine Glucose NEGATIVE (NEG); Urine Protein 1+ (NEG); Urine Specific Gravity 1.015 (1.005-1.030)
[2020-04-03 07:34] VITALS: BMI 22.6
[2020-04-03] MEDS ORDERED: TRAMADOL HCL 50 MG TAB PO PRN (07:37)
--- NOTE | 2020-04-03 08:03 | RAD REPORT ---
EXAM DESCRIPTION: RAD - Knee Left 2 View - 04/03/2020 5:04 am CLINICAL HISTORY: Left knee pain FINDINGS: No fracture or dislocation is seen. Marked osteoarthritis Osteoporosis
--- NOTE | 2020-04-03 08:06 | RAD REPORT ---
EXAM DESCRIPTION: RAD -Hand Left 3 View - 04/03/2020 5:05 am CLINICAL HISTORY: Left hand pain status post injury FINDINGS: No fracture or dislocation is seen. Osteoporosis
--- NOTE | 2020-04-03 08:08 | RAD REPORT ---
EXAM DESCRIPTION: RAD - Pelvis - 04/03/2020 5:04 am CLINICAL HISTORY: Pelvic pain status post injury FINDINGS: No acute fracture or dislocation Compression screw and intramedullary cris affix an old proximal right femoral fracture
--- NOTE | 2020-04-03 08:09 | RAD REPORT ---
EXAM DESCRIPTION: Taco Single View04/03/2020 5:02 am CLINICAL HISTORY: Chest pain COMPARISON: January 2020 FINDINGS: The lungs appear clear of acute infiltrate. The heart is normal size IMPRESSION: No acute abnormalities displayed
--- NOTE | 2020-04-03 08:53 | RAD REPORT ---
EXAM DESCRIPTION: CT - Head C Spine Cap Wo Con - 04/03/2020 6:12 am CLINICAL HISTORY: The patient is 74 years old and is Female; PAIN TECHNIQUE: Axial computed tomography images of the head/brain and cervical spine without intravenous contrast. Sagittal and coronal reformatted images were created and reviewed. This CT exam was pe rformed using one or more of the following dose reduction techniques: automated exposure control, a djustment of the mA and/or kV according to patient size, and/or use of iterative reconstruction techn ique. COMPARISON: CT of the head March 22, 2020 FINDINGS: BRAIN: No intracranial hemorrhage, mass effect, or midline shift is seen. There are no e xtra-axial fluid collections. There is diffuse cerebral atrophy present, consistent with this patie nt's age. There is patchy hypoattenuation of the deep white matter which is non-specific, but most likely owing to chronic small vessel ischemic change in a patient of this age group. VENTRICLES: Unremarkable. No ventriculomegaly. SKULL: No acute fracture. SINUSES: Unremarkable as visualized. No acute sinusitis. MASTOID AIR CELLS: Unremarkable as visualized. No mastoid effusion. VERTEBRAE: The vertebral body heights and alignment are maintained. No acute fracture. DISCS/SPINAL CANAL/NEURAL FORAMINA: Minimal intervertebral disc space narrowing with osteophyte formation is noted throughout the cervical spine. Mild discal calcification at multiple levels with f acet arthropathy is noted most prominent at C4-C5 on the right. SOFT TISSUES: The soft tissues are normal. LUNG APICES: Unremarkable as visualized. IMPRESSION: 1. No acute intracranial findings. 2. Spondylosis of the cervical spine without acute findings. CT Chest, Abdomen and Pelvis Without Intravenous Contrast CLINICAL HISTORY: The patient is 74 years old and is Female; PAIN TECHNIQUE: Axial computed tomography images of the chest, abdomen and pelvis without intravenous con trast. Sagittal and coronal reformatted images were created and reviewed. This CT exam was perfor med using one or more of the following dose reduction techniques: automated exposure control, adjus tment of the mA and/or kV according to patient size, and/or use of iterative reconstruction technique . COMPARISON: No relevant prior studies available. FINDINGS: CHEST: LUNGS: The lungs are clear of focal opacity, mass, or consolidation. PLEURAL SPACE: Unremarkable. No significant effusion. No pneumothorax. HEART: No cardiomegaly. No pericardial effusion. ABDOMEN: LIVER: Homogeneous without focal mass. GALLBLADDER AND BILE DUCTS: Surgical clips are present in the right upper quadrant, consistent w ith previous cholecystectomy. PANCREAS: Fatty infiltration of the pancreas is noted. No ductal dilation. SPLEEN: Unremarkable. ADRENALS: Unremarkable. No mass. KIDNEYS AND URETERS: A large exophytic 4.6 cm right renal cyst is present. No follow-up imaging is recommended. Several other smaller right renal cysts are present. There is no hydronephrosis or hy droureter of either kidney. No obstructing renal or ureteral calculus is seen. STOMACH AND BOWEL: Postsurgical change of the stomach is present. The small bowel is normal in c aliber. A moderate amount stool is present throughout colon. There is no mucosal thickening or eviden ce of bowel obstruction. PELVIS: APPENDIX: The appendix is normal in caliber without surrounding inflammation. BLADDER: The bladder is incompletely distended. No stones. REPRODUCTIVE: Unremarkable as visualized. CHEST, ABDOMEN and PELVIS: INTRAPERITONEAL SPACE: Unremarkable. No significant fluid collection. No free air. BONES/JOINTS: Nonunion fracture of the distal left clavicle is noted. Several healed left-sided fractures are present. Postsurgical change of the proximal right femur is present. The femoral head s are well located. Multilevel degenerative change of the spine is present. Chronic compression defor mity of L1 is present. There is no evidence of retropulsion. There is no acute fracture visualized ax ial and appendicular skeleton. SOFT TISSUES: The soft tissues are normal. VASCULATURE: Atherosclerosis of the vasculature is present. No aortic aneurysm. LYMPH NODES: Unremarkable. No enlarged lymph nodes. IMPRESSION: No evidence of solid organ injury or traumatic bony findings on this noncontrasted CT of the chest, abdomen, and pelvis. Electronically signed by: Chula Goddard MD 04/03/2020 5:59 AM CDT Due to temporary technical issues with the PACS/Fluency reporting system, reports are being signed by the in house radiologist without review as a courtesy to ensure prompt reporting. The interpreting r adiologist is fully responsible for the content of the report.
[2020-04-03] MEDS ORDERED: CEFTRIAXONE 1 GM/NS 50 ML 1 GM/50 ML BAG IV SCH (09:00)
--- NOTE | 2020-04-03 09:08 | P.HP ---
Certification for Inpatient Patient admitted to: Inpatient With expected LOS: >2 Midnights Patient will require the following post-hospital care: Home Health Services Practitioner: I am a practitioner with admitting privileges, knowledge of patient current condition, hospital course, and medical plan of care. Services: Services provided to patient in accordance with Admission requirements found in Title 42 Section 412.3 of the Code of Federal Regulations Patient History Date of Service: 04/03/20 Reason for admission: Multi-drug resistant UTI History of Present Illness: Patient is a 74-year-old female who is a regular patient at our hospital who presents to the hospital with carbapenem resistant Enterobacter. Patient had cultures performed of week ago which came back positive. Patient has been home and had generalized weakness. Patient also had generalized body aches. In the emergency room patient was worked up and patient does not have any significant leukocytosis or fever. Patient did not have any pyelonephritis. Patient will be admitted to the hospital for treatment of CRE are being. Patient may need bladder irrigation with tobramycin for colonization. Will discuss with Infectious Disease. Allergies prochlorperazine [From Compazine] Allergy (Intermediate, Verified 12/08/17 12:55) PYSCHOSIS Prochlorperazine Maleate Allergy (Uncoded 04/22/18 15:25) Unknown Home Medications: Aspirin [Aspirin EC 81 MG] 81 mg PO DAILY 02/06/20 Levothyroxine [Synthroid*] 88 mcg PO DAILY 02/06/20 Omeprazole [Prilosec] 40 mg PO DAILY 02/06/20 Simvastatin 20 mg PO DAILY 02/06/20 Tamsulosin [Flomax*] 0.4 mg PO DAILY 02/06/20 Uribel 1 tab PO DAILY 02/06/20 clonazePAM [Clonazepam] 1 mg PO BEDTIME 02/06/20 Cranberry 1,000 mg PO DAILY 02/25/20 Meclizine HCl 25 mg PO PRN 02/25/20 Oxycodone HCl/Acetaminophen [Oxycodon-Acetaminophen 7.5-325] 1 each PO QIDP PRN 02/25/20 Losartan Potassium 50 mg PO DAILY 04/03/20 Pantoprazole [Protonix Tab*] 20 mg PO DAILY 04/03/20 - Past Medical/Surgical History Diabetic: No -: Hypertension -: Hypothyroidism -: B-cell lymphoma -: DDD/DJD of spine -: Chronic recurrent UTI requiring long-term antibiot -: shingles ( ) -: Vertigo -: Anxiety -: Hysterectomy -: Cholecystectomy, Gastric Bypass -: Gastric torsion repair -: Right Hip surgery -: Knee surgery -: Port-A-Cath placement and removal -: Right Shoulder Sx, LISA lens replacement -: TONSILLECTOMY Psychosocial/ Personal History: The patient is originally from [place]. She moved to the area in July. She is . She has 3 children. - Family History Mother Medical History: Heart disease, Hypertension, Diabetes, Kidney disease Father Medical History: Heart disease, Diabetes, Other (see notes) Notes: Alzheimers - Social History Alcohol use: No CD- Drugs: No Caffeine use: Yes Review of Systems 10-point ROS is otherwise unremarkable Physical Examination - Vital Signs Temperature: 97.8 F Blood Pressure: 120/66 Pulse: 67 Respirations: 15 Pulse Ox (%): 95 - Physical Exam General: Alert, In no apparent distress, Oriented x2, Cachectic, Confused HEENT: Atraumatic, PERRLA, Mucous membr. moist/pink, EOMI, Sclerae nonicteric Neck: Supple, 2+ carotid pulse no bruit, No LAD, Without JVD or thyroid abnormality Respiratory: Clear to auscultation bilaterally, Normal air movement Cardiovascular: Regular rate/rhythm, Normal S1 S2, No murmurs Gastrointestinal: Normal bowel sounds, Soft and benign, Non-distended, No rebound, No guarding, Tenderness (Suprapubic tenderness) Musculoskeletal: No clubbing, No swelling, No tenderness Integumentary: No rashes Neurological: Normal speech, Normal tone, Sensation intact, Cranial nerves 3-12 intact, Normal affect, Abnormal gait, Abnormal strength Lymphatics: No axilla or inguinal lymphadenopathy - Studies Laboratory Data (last 24 hrs) 04/03/20 04:45: WBC 4.2 L, Hgb 8.3 L, Hct 25.5 L, Plt Count 149 L 04/03/20 04:45: Sodium 143, Potassium 3.4 L, BUN 10, Creatinine 0.80, Glucose 76, Magnesium 2.0, Total Bilirubin 0.6, AST 10 L, ALT 9 L, Alkaline Phosphatase 83, Lipase 34 L Assessment & Plan - Problems (Diagnosis) (1) Infection with multi drug resistant Enterobacter cloacae Current Visit: Yes Status: Acute (2) Chronic pain disorder Current Visit: No Status: Chronic (3) History of B-cell lymphoma Onset Date: 06/29/17 Current Visit: No Status: Chronic (4) Hypertension Onset Date: 06/29/17 Current Visit: No Status: Chronic Qualifiers: Hypertension type: essential hypertension (5) Hypothyroidism Onset Date: 06/29/17 Current Visit: No Status: Chronic Qualifiers: Hypothyroidism type: acquired (6) UTI (urinary tract infection) Onset Date: 12/09/17 Current Visit: No Status: Ruled-out Qualifiers: Urinary tract infection type: acute cystitis Hematuria presence: without hematuria Qualified Code(s): N30.00 - Acute cystitis without hematuria (7) Carbapenem-resistant Enterobacteriaceae infection Current Visit: Yes Status: Acute - Plan Plan: 1. IV hydration 2. IV antibiotics 3. Pain control 4. Infectious disease consultation 5. Bladder irrigation with aminoglycoside 6. Strict blood pressure and blood sugar control 7. Physical therapy evaluation 8. GI and DVT prophylaxis Discharge Plan: Home Plan to discharge in: Greater than 2 days - Advance Directives Does patient have a Living Will: Yes Does patient have a Durable POA for Healthcare: Yes - Code Status/Comfort Care Code Status Assessed: Yes Code Status: Full Code Critical Care: No Time Spent Managing PTS Care (In Minutes): 40
[2020-04-03 09:10] LABS: Anisocytosis 2+; Blood Morphology Comment NOTED (NOT SEEN); Macrocytosis 1+; Platelet Estimate ADEQ; Urine White Blood Cell Casts OK
[2020-04-03] MEDS: NA CHLORIDE 0.9% 1,000 ML IV SCH ×2 (09:54→18:17)
[2020-04-03] MEDS: GENTAMICIN 80 MG/100 ML BAG 80 MG/100 ML BAG IV SCH ×2 (09:54→17:20)
--- NOTE | 2020-04-03 09:54 | EKG ---
Test Date: 2020-04-03 Test Time: 04:45:06 Pewter Finisher: THALIA MEASUREMENT RESULTS: Intervals: Rate: 65 NH: 180 QRSD: 74 QT: 444 QTc: 461 [place]ell: P: 71 NH: 180 QRS: 18 T: 33 INTERPRETIVE STATEMENTS: Normal sinus rhythm Cannot rule out Anterior infarct, age undetermined Abnormal ECG Compared to ECG 03/22/2020 15:43:45 Myocardial infarct finding now present Sinus bradycardia no longer present Electronically Signed On 04-03-20 09:53:44 CDT by Diaz Ramsay
--- NOTE | 2020-04-03 15:07 | P.CNS ---
Date of Consult: 04/03/20 Subjective: Patient is a 74 year old female who presents with weakness. Patient took a fall at home. Patient seen by urologist 03/31 and prescribed antibiotic. Patient has history of chronic UTI/Carbapenem resistant enterobacter and presents with burning with urination and decreased appetite which I have been consulted for. Patient examined at bedside. Past medical/surgical history: HTN, hypothyroidism, B cell lymphoma, DDD/DJD of spine, Shingles, chronic UTI, Vertigo, Anxiety, Hysterectomy, Cholecystectomy, gastric bypass, Gastric torsion repair, Right hip surgery, knee surgery, right shoulder surgery, bilateral lens replacement, tonsillectomy Family history: Mother with heart disease, HTN, diabetes, Kidney disease. Father with heart disease, Diabetes and alzheimers Allergies: Prochlorperazine Active Medications Acetaminophen (Tylenol -Extra Strength) 500 mg PO Q6H PRN PRN Reason: Pain/fever Stop: 05/03/20 05:55 Hydrocodone Bitart/Acetaminophen (Willow 7.5/325 Mg) 1 tab PO Q6H PRN PRN Reason: Pain scale 5-7 (Moderate) Stop: 05/03/20 07:38 Aspirin (Aspirin Ec) 81 mg PO DAILY [facility] Stop: 05/04/20 09:01 Atorvastatin Calcium (Lipitor) 10 mg PO BEDTIME [facility] Stop: 05/03/20 21:01 Clonazepam (Klonopin) 1 mg PO BEDTIME [facility] Stop: 05/03/20 21:01 Home Med (Cranberry [Cranberry]) 1,000 mg PO DAILY [facility] Stop: 05/04/20 09:01 Home Med (Uribel) 1 tab PO DAILY [facility] Stop: 05/04/20 09:01 Sodium Chloride (Ns 1000 Ml Ivbag) 1,000 mls @ 75 mls/hr IV .[id number] [facility] Stop: 05/03/20 06:01 Last Admin: 04/03/20 09:54 Dose: 1,000 mls Documented by: Gentamicin Sulfate/Sodium Chloride (Gentamicin 80 Mg/100 Ml Bag) 80 mg in 100 mls @ 200 mls/hr IV Q8HR [facility] Stop: 05/03/20 09:01 Last Admin: 04/03/20 09:54 Dose: 100 mls Documented by: Levothyroxine Sodium (Synthroid) 0.088 mg PO DAILYAC [facility] Stop: 05/04/20 06:31 Losartan Potassium (Cozaar) 50 mg PO DAILY [facility] Stop: 05/04/20 09:01 Morphine Sulfate (Morphine Sulfate) 2 mg IV Q4H PRN PRN Reason: Pain scale 5-7 (Moderate) Stop: 05/03/20 05:55 Ondansetron HCl (Zofran) 4 mg IV Q8H PRN PRN Reason: NAUSEA / VOMITING Stop: 05/03/20 05:55 Pantoprazole Sodium (Protonix Tab) 40 mg PO DAILY [facility]; Protocol Stop: 05/04/20 09:01 Sodium Chloride (Normal Saline Flush) 10 ml IV BID [facility] Stop: 05/03/20 09:01 Last Admin: 04/03/20 09:55 Dose: 10 ml Documented by: Tamsulosin HCl (Flomax) 0.4 mg PO DAILY [facility] Stop: 05/04/20 09:01 Tramadol HCl (Ultram) 50 mg PO TID PRN PRN Reason: PAIN Stop: 05/03/20 07:38 ROS: General: Reports drinks only cokes, no water. Also reports taking Azos for burning CV: Denies chest pain RESP: Denies shortness of breath, cough : Reports burning with urination GI: Denies nausea, diarrhea. Reports decreased appetite Objective: Temp Pulse Resp BP Pulse Ox 98.6 F 66 18 101/69 95 04/03/20 12:00 04/03/20 12:00 04/03/20 12:00 04/03/20 12:00 04/03/20 09:08 Laboratory Last Values WBC 4.2 K/uL (4.3-10.9) L 04/03/20 04:45 RBC 2.52 M/uL (3.86-4.86) L 04/03/20 04:45 Hgb 8.3 g/dL (12.0-15.0) L 04/03/20 04:45 Hct 25.5 % (36.0-45.0) L 04/03/20 04:45 MCV 101.2 fL (80-100) H 04/03/20 04:45 MCH 32.8 pg (27.0-35.0) 04/03/20 04:45 MCHC 32.4 g/dL (32.0-36.0) 04/03/20 04:45 RDW 18.0 % (12.1-15.2) H 04/03/20 04:45 Plt Count 149 K/uL (152-406) L 04/03/20 04:45 MPV 8.9 fL (7.6-11.3) 04/03/20 04:45 Neutrophils % 73.6 % (41.7-73.7) 04/03/20 04:45 Lymphocytes % 11.5 % (15.3-44.8) L 04/03/20 04:45 Monocytes % 12.0 % (3.3-12.3) 04/03/20 04:45 Eosinophils % 2.1 % (0-4.4) 04/03/20 04:45 Basophils % 0.8 % (0-1.3) 04/03/20 04:45 Absolute Neutrophils 3.1 K/uL (1.8-8.0) 04/03/20 04:45 Absolute Lymphocytes 0.5 K/uL (0.7-4.9) L 04/03/20 04:45 Absolute Monocytes 0.5 K/uL (0.1-1.3) 04/03/20 04:45 Absolute Eosinophils 0.1 K/uL (0-0.5) 04/03/20 04:45 Absolute Basophils 0.0 K/uL (0-0.5) 04/03/20 04:45 Anisocytosis 2+ 04/03/20 04:45 Macrocytosis 1+ 04/03/20 04:45 Morphology Comment Noted (NOT SEEN) 04/03/20 04:45 Sodium 143 mmol/L (136-145) 04/03/20 04:45 Potassium 3.4 mmol/L (3.5-5.1) L 04/03/20 04:45 Chloride 110 mmol/L (98-107) H 04/03/20 04:45 Carbon Dioxide 25 mmol/L (21-32) 04/03/20 04:45 BUN 10 mg/dL (7-18) 04/03/20 04:45 Creatinine 0.80 mg/dL (0.55-1.3) 04/03/20 04:45 Estimated GFR 71 mL/min (=/>90) L 04/03/20 04:45 Glucose 76 mg/dL (74-106) 04/03/20 04:45 Calcium 8.5 mg/dL (8.5-10.1) 04/03/20 04:45 Magnesium 2.0 mg/dL (1.8-2.4) 04/03/20 04:45 Total Bilirubin 0.6 mg/dL (0.2-1.0) 04/03/20 04:45 Direct Bilirubin 0.2 mg/dL (0-0.2) 04/03/20 04:45 AST 10 U/L (15-37) L 04/03/20 04:45 ALT 9 U/L (12-78) L 04/03/20 04:45 Alkaline Phosphatase 83 U/L (45-117) 04/03/20 04:45 Rapid Troponin I < 0.02 ng/mL (0.0-0.045) 04/03/20 04:45 NT-Pro-B Natriuret Pep 977 pg/mL (<125) H 04/03/20 04:45 Serum Total Protein 5.3 g/dL (6.4-8.2) L 04/03/20 04:45 Albumin 2.9 g/dL (3.4-5.0) L 04/03/20 04:45 Globulin 2.4 g/dL (2.3-3.5) 04/03/20 04:45 Albumin/Globulin Ratio 1.2 (1.1-1.8) 04/03/20 04:45 Lipase 34 U/L (73-393) L 04/03/20 04:45 Urine pH 5.0 (5.0-7.0) 04/03/20 05:18 Ur Specific [place] 1.015 (1.005-1.030) 04/03/20 05:18 Glucose (UA)(Auto) Negative (NEG) 04/03/20 05:18 Urine Ketones Trace (NEG) 04/03/20 05:18 Urine Blood Negative (NEG) 04/03/20 05:18 Urine Nitrite Positive (NEG) H 04/03/20 05:18 Ur Leukocyte Esterase Trace (NEG) H 04/03/20 05:18 Urine Total Protein 1+ (NEG) H 04/03/20 05:18 ABO/Rh A NEGATIVE 04/03/20 04:45 Solid Phase Ab Screen Negative 04/03/20 04:45 ROS: General: Awake, knows what day it is but confused on where she is CV: S1,S2 RESP: Good breath sounds : incontinent, orange colored urine ABD: Bowel sounds present Extremities: No edema Assessment and plan: UTI, urine cultures pending Pancytopenia Procal mal Currently on Gentamycin Recommend to continue antibiotics for total of 10 days Will continue to monitor Thank you for consult Patient discussed with Dr. Coleman
[2020-04-03] MEDS ORDERED: OXYCODONE PO PRN (16:56)
[2020-04-03] MEDS ORDERED: ACETAMINOPHEN PO PRN (16:56)
[2020-04-03] MEDS ORDERED: clonazePAM 1 MG TAB PO SCH (21:00)
[2020-04-03] MEDS ORDERED: ATORVASTATIN 10 MG TAB PO SCH (21:00)
[2020-04-04] MEDS: GENTAMICIN 80 MG/100 ML BAG 80 MG/100 ML BAG IV SCH ×3 (01:19→17:00)
[2020-04-04] MEDS: HYDROCODONE/APAP 7.5/325 MG TAB PO PRN ×2 (05:49→16:08)
[2020-04-04] MEDS: NA CHLORIDE 0.9% 1,000 ML IV SCH ×2 (05:49→07:44)
[2020-04-04] MEDS ORDERED: LEVOTHYROXINE SOD 0.088 MG TAB PO SCH (06:30)
[2020-04-04 06:41] LABS: Absolute Lymphocytes (CBC) 0.3 K/uL (0.7-4.9); Basophils % 0.5 % (0-1.3); Hematocrit 22.2 % (36.0-45.0); Lymphocytes % 4.7 % (15.3-44.8); MPV 8.7 fL (7.6-11.3); RBC Red Blood Cell Count 2.14 M/uL (3.86-4.86)
[2020-04-04 06:43] LABS: Protime INR 1.02
[2020-04-04 07:30] LABS: Albumin 2.4 g/dL (3.4-5.0); Bilirubin Total 0.7 mg/dL (0.2-1.0); Potassium 3.3 mmol/L (3.5-5.1); Protein, Total 4.6 g/dL (6.4-8.2)
--- NOTE | 2020-04-04 07:33 | P.PN ---
Date of Service: 04/04/20 Subjective: Patient is a 74 year old female who presents with weakness. Patient took a fall at home. Patient seen by urologist 03/31 and prescribed antibiotic. Patient has history of chronic UTI/Carbapenem resistant enterobacter and presents with burning with urination and decreased appetite which I have been consulted for. Past medical/surgical history: HTN, hypothyroidism, B cell lymphoma, DDD/DJD of spine, Shingles, chronic UTI, Vertigo, Anxiety, Hysterectomy, Cholecystectomy, gastric bypass, Gastric torsion repair, Right hip surgery, knee surgery, right shoulder surgery, bilateral lens replacement, tonsillectomy Patient examined at bedside. Reports decreased appetite and burning with urination. Per nurse, Patient has urinary frequency and is using the bedside commode. Urine cultures are still pending. Objective: Temp Pulse Resp BP Pulse Ox 98.3 F 68 16 112/51 L 97 04/04/20 04:00 04/04/20 04:00 04/04/20 05:49 04/04/20 04:00 04/04/20 05:49 Laboratory Last Values Labs: WBC 6.9, Hgb 7.2, Hct 22.2, Plt 126 ROS: General: Awake, Alert CV: S1,S2 RESP: Good breath sounds : incontinent & using bedside commode ABD: Bowel sounds present Extremities: No edema Assessment and plan: UTI, urine cultures pending Pancytopenia Procal mal Currently on Gentamycin Recommend to continue antibiotics for total of 10 days Can do bladder irrigation with aminoglycoside or acetic acid Will continue to monitor Patient discussed with Dr. Coleman
--- NOTE | 2020-04-04 08:07 | P.PN ---
Subjective Date of Service: 04/04/20 Subjective: No new changes, Improving She is still confused but doing much better. Review of Systems 10-point ROS is otherwise unremarkable Physical Examination - Vital Signs Temperature: 98.3 F Blood Pressure: 112/51 Pulse: 68 Respirations: 16 Pulse Ox (%): 97 - Physical Exam General: Alert, In no apparent distress, Oriented x3 Respiratory: Clear to auscultation bilaterally, Normal air movement Cardiovascular: Regular rate/rhythm, Normal S1 S2 Gastrointestinal: Normal bowel sounds, No tenderness Musculoskeletal: No tenderness Integumentary: No rashes Neurological: Normal speech, Normal tone, Normal affect Lymphatics: No axilla or inguinal lymphadenopathy - Studies Medications List Reviewed: Yes Assessment & Plan - Problems (Diagnosis) (1) Infection with multi drug resistant Enterobacter cloacae Status: Acute (2) Chronic pain disorder Status: Chronic (3) History of B-cell lymphoma Onset Date: 06/29/17 Status: Chronic (4) Hypertension Onset Date: 06/29/17 Status: Chronic Qualifiers: Hypertension type: essential hypertension Qualified Code(s): I10 - Essential (primary) hypertension (5) Hypothyroidism Onset Date: 06/29/17 Status: Chronic Qualifiers: Hypothyroidism type: acquired Qualified Code(s): E03.9 - Hypothyroidism, unspecified (6) UTI (urinary tract infection) Onset Date: 12/09/17 Status: Ruled-out Qualifiers: Urinary tract infection type: acute cystitis Hematuria presence: without hematuria Qualified Code(s): N30.00 - Acute cystitis without hematuria (7) Carbapenem-resistant Enterobacteriaceae infection Status: Acute - Plan Plan: Continue with current plan of care at this time: 1. IV hydration 2. IV antibiotics 3. Pain control 4. Infectious disease consultation appreciated 5. Bladder irrigation with aminoglycoside 6. Strict blood pressure and blood sugar control 7. Physical therapy evaluation 8. GI and DVT prophylaxis Discharge Plan: Home Plan to discharge in: Greater than 2 days - Advance Directives Does patient have a Living Will: Yes Does patient have a Durable POA for Healthcare: Yes - Code Status/Comfort Care Code Status: Full Code Critical Care: No Time Spent Managing PTS Care (In Minutes): 20
[2020-04-04] MEDS: LOSARTAN POTASSIUM 50 MG TABLET PO SCH ×2 (08:40→14:21)
[2020-04-04] MEDS ORDERED: HOME MED 1 EA UNK (Cranberry [Cranberry] 1,000 MG) PO SCH (09:00)
[2020-04-04] MEDS ORDERED: HOME MED 1 EA UNK (Simvastatin [Simvastatin] 20 MG) PO SCH (09:00)
[2020-04-04] MEDS ORDERED: URIBEL PO SCH (09:00)
[2020-04-04] MEDS ORDERED: ASPIRIN EC 81 MG TAB PO SCH (09:00)
[2020-04-04] MEDS ORDERED: TAMSULOSIN 0.4 MG SR CAP PO SCH (09:00)
[2020-04-04] MEDS ORDERED: ENOXAPARIN 40 MG/0.4 ML SQ SCH (09:00)
[2020-04-04] MEDS ORDERED: PANTOPRAZOLE 40MG TABLET PO SCH (09:00)
[2020-04-04 09:31] VITALS: O2SAT 98
[2020-04-04] MEDS ORDERED: NA CHLORIDE 0.9% 250 ML ONE (11:38)
--- NOTE | 2020-04-04 14:20 | P.DS ---
Admission Date: 04/03/20 Discharge Date: 04/04/20 Primary Care Provider: unknown Disposition: [facility] Discharge Condition: GOOD Reason for Admission: Multi-drug resistant UTI Procedures: Medical problem list: Multi drug resistant Enterococcus infection-UTI Anemia of chronic disease Hypertension Hypothyroidism Chronic pain History of B-cell lymphoma Hyperlipidemia Brief History of Present Illness: 74-year-old female presented to the emergency room with multi resistant UTI. Patient was admitted for further evaluation and treatment. Hospital Course: Patient found to have multi resistant UTI. Patient required gentamicin. Due to her need of IV antibiotic therapy. Patient seen and evaluated by infectious disease. Infectious Disease recommends to continue IV antibiotic therapy for 10 days. Patient was assess for [facility]. Patient was approved. Patient will go to [facility] to continue gentamicin IV for 10 days. Patient to be monitored closely. Further adjustment in medication can be done at the long-term care facility. During the course of her stay patient was anemic. Patient given 1 unit of blood to maintain hemoglobin above 7.5. This can be further monitored at the long- term [facility] facility. Patient with history of hypertension, hypothyroidism, GERD, hyperlipidemia, and chronic pain. She will continue with her current medications. Vital Signs/Physical Exam: Temp Pulse Resp BP Pulse Ox 98.4 F 63 19 111/55 L 99 04/04/20 11:50 04/04/20 11:50 04/04/20 11:50 04/04/20 11:50 04/04/20 11:50 General: Alert HEENT: Atraumatic Neck: Supple Respiratory: Clear to auscultation bilaterally, Normal air movement Cardiovascular: Normal pulses, Regular rate/rhythm Neurological: Normal speech, Normal affect Laboratory Data at Discharge: WBC 6.9 K/uL (4.3-10.9) D 04/04/20 06:24 Hgb 7.2 g/dL (12.0-15.0) L* 04/04/20 06:24 Hct 22.2 % (36.0-45.0) L 04/04/20 06:24 Plt Count 126 K/uL (152-406) L 04/04/20 06:24 PT 12.0 SECONDS (9.5-12.5) 04/04/20 06:24 INR 1.02 04/04/20 06:24 APTT 17.7 SECONDS (24.3-36.9) L 04/03/20 13:18 Sodium 142 mmol/L (136-145) 04/04/20 06:24 Potassium 3.3 mmol/L (3.5-5.1) L 04/04/20 06:24 BUN 7 mg/dL (7-18) 04/04/20 06:24 Creatinine 0.67 mg/dL (0.55-1.3) 04/04/20 06:24 Glucose 126 mg/dL (74-106) H 04/04/20 06:24 Magnesium 2.0 mg/dL (1.8-2.4) 04/03/20 04:45 Total Bilirubin 0.7 mg/dL (0.2-1.0) 04/04/20 06:24 AST 11 U/L (15-37) L 04/04/20 06:24 ALT 8 U/L (12-78) L 04/04/20 06:24 Alkaline Phosphatase 75 U/L (45-117) 04/04/20 06:24 Lipase 34 U/L (73-393) L 04/03/20 04:45 Home Medications: Aspirin [Aspirin EC 81 MG] 81 mg PO DAILY 02/06/20 Levothyroxine [Synthroid*] 88 mcg PO DAILY 02/06/20 Omeprazole [Prilosec] 40 mg PO DAILY 02/06/20 Simvastatin 20 mg PO DAILY 02/06/20 Tamsulosin [Flomax*] 0.4 mg PO DAILY 02/06/20 Uribel 1 tab PO DAILY 02/06/20 clonazePAM [Clonazepam] 1 mg PO BEDTIME 02/06/20 Cranberry 1,000 mg PO DAILY 02/25/20 Meclizine HCl 25 mg PO PRN 02/25/20 Oxycodone HCl/Acetaminophen [Oxycodon-Acetaminophen 7.5-325] 1 each PO QIDP PRN 02/25/20 Losartan Potassium 50 mg PO DAILY 04/03/20 Pantoprazole [Protonix Tab*] 20 mg PO DAILY 04/03/20 Patient Discharge Instructions: OK TO DC TO LTAC FACILITY. FOLLOW-UP WITH ATTENDING AT LTAC IN A.M. FOLLOW-UP WITH INFECTIOUS DISEASE. CALL or TEXT DR. LEZAMA AT [phone] IF ANY QUESTIONS REGARDING HOSPITAL STAY. PLEASE CALL THE FLOOR AT [phone] IF ANY MEDICATION OR NURSING QUESTIONS. Diet: AHA Activity: Fall precautions Time spent managing pt's care (in minutes): 55
[2020-04-04] MEDS ORDERED: LORazepam 2 MG/ML VIAL IV ONE ×2 (16:04→17:30)
[2020-04-08 11:58] VITALS: BP 112/51; TEMP 98.3
== END 2020-04-04 18:30 | DRG 690 ==
LOC: ER 03:49 → ERHOLD 06:04 → 4TH 07:38
PROVIDERS: ADMIT Hospitalist; ATTEND Hospitalist
PROC: 30233N1 Transfusion of Nonautologous Red Blood Cells into Peripheral Vein, Percutaneous Approach (ICD-10-PCS; principal; 2020-04-04)
DX: N39.0 Urinary tract infection, site not specified (principal); D61.818 Other pancytopenia; Z16.29 Resistance to other single specified antibiotic; E46 Unspecified protein-calorie malnutrition; Z88.8 Allergy status to other drugs, medicaments and biological substances; Z79.82 Long term (current) use of aspirin; Z79.890 Hormone replacement therapy; Z79.899 Other long term (current) drug therapy; I10 Essential (primary) hypertension; E03.9 Hypothyroidism, unspecified; Z90.710 Acquired absence of both cervix and uterus; Z90.49 Acquired absence of other specified parts of digestive tract; Z98.84 Bariatric surgery status; Z68.22 Body mass index [BMI] 22.0-22.9, adult; F52.6 Dyspareunia not due to a substance or known physiological condition; Z11.59 Encounter for screening for other viral diseases; W18.39XA Other fall on same level, initial encounter; D63.8 Anemia in other chronic diseases classified elsewhere; Z85.72 Personal history of non-Hodgkin lymphomas; K21.9 Gastro-esophageal reflux disease without esophagitis
CPT/HCPCS: 36415; 36430; 70450; 71045; 71250; 72125; 72170; 80048; 80053; 80076; 80170; 81003; 83690; 83735; 83880; 84484; 85025; 85610; 85730; 86850; 86900; 86901; 87077; 87086; 87088; 87186; 93005; 96361; 96365; 96375; 99285; J1580; J2270; J3260; J7030; P9016; U0002

== ENCOUNTER 2020-04-29 17:42 | Emergency (ER) | payer OTHER, BC ==
[2020-04-29 19:19] LABS: Protime INR 0.9
[2020-04-29 19:29] LABS: Absolute Lymphocytes (CBC) 0.5 K/uL (0.7-4.9); Basophils % 1.3 % (0-1.3); Hematocrit 26.1 % (36.0-45.0); Lymphocytes % 12.1 % (15.3-44.8); MPV 8.4 fL (7.6-11.3); RBC Red Blood Cell Count 2.76 M/uL (3.86-4.86)
[2020-04-29 19:46] LABS: ALT/SGPT 10 U/L (12-78); AST/SGOT 15 U/L (15-37); Albumin 2.7 g/dL (3.4-5.0); Alkaline Phosphatase 103 U/L (45-117); BUN Blood Urea Nitrogen 15 mg/dL (7-18); Bicarbonate 27 mmol/L (21-32); Bilirubin Direct 0.2 mg/dL (0-0.2); Bilirubin Total 0.4 mg/dL (0.2-1.0); Glucose Level 76 mg/dL (74-106); Magnesium 1.7 mg/dL (1.8-2.4); NT PRO-BNP 5630 pg/mL (<125); Potassium 3.1 mmol/L (3.5-5.1); Protein, Total 4.9 g/dL (6.4-8.2); Sodium Level 145 mmol/L (136-145); Troponin (Emerg Dept Use Only) < 0.02 ng/mL (0.0-0.045)
[2020-04-29 19:47] LABS: Urine Blood TRACE (NEG); Urine Glucose TRACE (NEG); Urine Protein 2+ (NEG)
--- NOTE | 2020-04-29 20:01 | RAD REPORT ---
EXAM DESCRIPTION: RAD - Chest Single View - 04/29/2020 7:56 pm CLINICAL HISTORY: Dizzy Chest pain. COMPARISON: Chest Single View dated 04/03/2020; Chest Single View dated 02/24/2020; Chest Single View d ated 02/06/2020; Chest Pa And Lat (2 Views) dated 02/21/2018 FINDINGS: Portable technique limits examination quality. The lungs are grossly clear. The heart is normal in size. Old traumatic changes left shoulder noted. IMPRESSION: No acute intrathoracic process suspected.
--- NOTE | 2020-04-29 20:40 | RAD REPORT ---
EXAM DESCRIPTION: CT - Head Brain Wo Cont - 04/29/2020 8:23 pm CLINICAL HISTORY: DIZZINESS Headache, drowsiness COMPARISON: <Comparisons> TECHNIQUE: All CT scans are performed using dose optimization technique as appropriate and may inclu de automated exposure control or mA/KV adjustment according to patient size. FINDINGS: No intracranial hemorrhage, hydrocephalus or extra-axial fluid collection.Mild generalized brain atrophy is present with mild periventricular and deep white matter chronic microvascular ische stanley changes.No areas of brain edema or evidence of midline shift. The paranasal sinuses and mastoids are clear. The calvarium is intact. IMPRESSION: No acute intracranial abnormality.
--- NOTE | 2020-04-29 20:46 | RAD REPORT ---
EXAM DESCRIPTION: CT - Abdomen Pelvis Wo Contrast - 04/29/2020 8:24 pm CLINICAL HISTORY: Abdominal pain. ABD PAIN COMPARISON: Abdomen Pelvis Wo Contrast dated 11/13/2019; Pelvis dated 04/03/2020 TECHNIQUE: CT imaging of the abdomen and pelvis was performed without contrast. Solid organ, bowel a nd vascular assessment is limited due to lack of IV and oral contrast. All CT scans are performed using dose optimization technique as appropriate and may include automated exposure control or mA/KV adjustment according to patient size. FINDINGS: Small bilateral pleural effusions are present with atelectasis/infiltrate in both posterio r lung bases. Postsurgical changes are present in the region of the gastroesophageal junction. Liver size is normal without biliary dilatation or focal mass. Cholecystectomy clips. The spleen, rig ht adrenal gland are normal. Mild thickening of the left adrenal gland is present. Mild pancreatic at rophy seen.Multiple cysts are present in both kidneys. No stone or hydronephrosis. No bowel obstruction, free air, intra-abdominal free fluid or abscess. Moderate fat containing umbili stephanie hernia. The appendix is normal. Small amount of free fluid is seen in the pelvis. Lucency with sclerotic margins is seen involving the superior pubic ramus on the left near the juncti on with the acetabulum, suggesting healing nondisplaced subacute fracture.Hardware is in place proxim al right femur. IMPRESSION: Small bilateral pleural effusions with lung base atelectasis or infiltrate. Moderate fat containing umbilical hernia. Healing subacute nondisplaced fracture left superior pubic ramus seen. A limited non-contrast examination was performed as detailed.
--- OUTSIDE RECORDS SUMMARY | 2020-04-29 21:01 | XMS REPORT | Clinical Summary ---
:1945 Author Organization [facility] Address [address] [place] [address] Care Team Providers Name Role Phone Evans [...] Encounters Date Type Specialty Care Team Description 04/04/2020 Lab Requisition Lab 11/02/2019 - Hospital Encounter General Internal [place], Fall, initial encounter (Primary Dx); 11/07/2019 Medicine Dusty Yuan UTI (urinary tract infection); Acute right-sided low [...] Acute cystitis with hematuria 11/02/2019 Travel after 04/29/2019 Social History Tobacco Use Types Packs/Day Years Used Date Unknown If Ever Smoked Sex Assigned at Date Recorded Not on file Job Start Date Occupation Industry Not on file Not on file Not on file Travel History Travel Start Travel End No recent travel history available. Last Filed Vital Signs Vital Sign Reading Time Taken Blood Pressure 120/61 11/07/2019 8:32 AM [employer] Pulse 86 11/07/2019 8:45 AM [employer] Temperature 36.8 C (98.2 F) 11/07/2019 8:32 AM [employer] Respiratory Rate 18 11/07/2019 8:45 AM [employer] Oxygen Saturation 98% 11/07/2019 8:45 AM [employer] Inhaled Oxygen Concentration 21% 11/07/2019 8:45 AM [employer] Weight 80 kg (176 lb 6.4 oz) 11/02/2019 10:27 P M [employer] Height 165.1 cm (5' 5") 11/02/2019 10:27 PM [employer] Body Mass Index 29.35 11/02/2019 10:27 PM [employer] Plan of Treatment Not on file Procedures Procedure Name Priority Date/Time Associated Comments Diagnosis SARS-COV2/RT-PCR ([facility] Routine 04/03/2020 4:28 R esults for this & REF LABS) PM CDT procedure are i n the results section. RHYTHM STRIP - SCAN 11/08/2019 2:54 PM [employer] RHYTHM STRIP - SCAN 11/07/2019 4:12 PM [employer] MR LUMBAR SPINE Routine 11/06/2019 9:12 Results for this WITHOUT IV CONTRAST AM [employer] procedur e are in the results section. CBC W/PLT COUNT & AUTO Routine 11/06/2019 3:51 R esults for this DIFFERENTIAL AM [employer] procedure are i n the results section. COMPREHENSIVE Routine 11/06/2019 3:51 Results fo r this METABOLIC PANEL AM [employer] procedure ar e in the results section. CBC W/PLT COUNT & AUTO Routine 11/06/2019 3:51 R esults for this DIFFERENTIAL AM [employer] procedure are i n the results section. CBC W/PLT COUNT & AUTO Routine 11/05/2019 4:25 R esults for this DIFFERENTIAL AM [employer] procedure are i n the results section. COMPREHENSIVE Routine 11/05/2019 4:25 Results fo r this METABOLIC PANEL AM [employer] procedure ar e in the results section. CBC W/PLT COUNT & AUTO Routine 11/05/2019 4:25 R esults for this DIFFERENTIAL AM [employer] procedure are i n the results section. CBC W/PLT COUNT & AUTO Routine 11/04/2019 4:09 R esults for this DIFFERENTIAL AM [employer] procedure are i n the results section. COMPREHENSIVE Routine 11/04/2019 4:09 Results fo r this METABOLIC PANEL AM [employer] procedure ar e in the results section. CBC W/PLT COUNT & AUTO Routine 11/04/2019 4:09 R esults for this DIFFERENTIAL AM [employer] procedure are i n the results section. CBC W/PLT COUNT & AUTO STAT 11/03/2019 5:23 R esults for this DIFFERENTIAL AM [employer] procedure are i n the results section. HEMOGLOBIN A1C STAT 11/03/2019 5:23 Results f or this AM [employer] procedure are i n the results section. CBC W/PLT COUNT & AUTO STAT 11/03/2019 5:23 R esults for this DIFFERENTIAL AM [employer] procedure are i n the results section. CT THORACIC SPINE STAT 11/02/2019 9:29 Result s for this WITHOUT IV CONTRAST PM [employer] procedur e are in the results section. CT LUMBAR SPINE STAT 11/02/2019 9:29 Results for this WITHOUT IV CONTRAST PM [employer] procedur e are in the results section. BASIC METABOLIC PANEL STAT 11/02/2019 8:39 Re sults for this (7) PM [employer] procedure are i n the results section. CBC W/PLT COUNT & AUTO STAT 11/02/2019 8:17 R esults for this DIFFERENTIAL PM [employer] procedure are i n the results section. CBC W/PLT COUNT & AUTO STAT 11/02/2019 8:17 R esults for this DIFFERENTIAL PM [employer] procedure are i n the results section. URINALYSIS W/ STAT 11/02/2019 8:02 Results fo r this MICROSCOPIC PM [employer] procedure are i n the results section. URINE CULTURE STAT 11/02/2019 8:02 Results fo r this PM [employer] procedure are i n the results section. XR SPINE LUMBAR 1 VIEW STAT 11/02/2019 7:34 R esults for this PM [employer] procedure are i n the results section. after 04/29/2019 Results SARS-CoV2/RT-PCR ([facility]) (04/03/2020 4:28 PM CDT) SARS-COV2/RT-PCR Not Detected Not Detected, Negative [facility] SARS-COV-2 PERFORMING LAB SURGERY [facility] Specimen Other Narrative Performed At Negative results do not preclude SARS-CoV-2 [facility] infection and should not be used as the sole basis for patient management decisions. Negative results must be combined with clinical observations, patient history, and epidemiological information. A false negative result may occur if a specimen is improperly collected, transported or handled. The limit of detection for this assay is 250 copies/mL. This SARS CoV-2 test is a rapid, real-time RT-PCR test intended for the qualitative detection of nucleic acid from SARS-CoV-2 in a nasopharyngeal swab specimen collected from individuals suspected of COVID-19 by their healthcare provider. This test has not been Food and Drug Administration (FDA) cleared or approved and has been authorized by FDA under an Emergency Use Authorization (EUA). This EUA will be effective until the declaration that circumstances exist justifying the authorization of the emergency use of in vitro diagnostic tests for detection and/or diagnosis of COVID-19 is terminated under Section 564(b)(2) of the Act or the EUA is revoked under Section 564(g) of the Act. Fact Sheet for Healthcare Providers: https://www.[facility]/Documents/Xpert%20Xpre ss%20SARS%20CoV-2/Fact%20Sheets/902-0307%20SAR S-COV-2%20HEALTHCARE%20PROVIDERS%20FACT%20SHEE T.pdf Fact Sheet for Healthcare Patients: https://www.[facility]/Documents/Xpert%20Xpre ss%20SARS%20CoV-2/Fact%20Sheets/302-3801%20SAR S-COV-2%20PATIENT%20FACT%20SHEET.pdf Performing Laboratory: [facility] [address] [place] [address] Performing Organization Address City/State/Zipcode Phone Number [facility] [address] [place] [address] CENTER RHYTHM STRIP - SCAN (11/08/2019 2:54 PM [employer])Only the most recent of2 results within the time period is included. Narrative Performed At This result has an attachment that is no t available. MR spine lumbar without IV contrast (11/06/2019 9:12 AM [employer]) Specimen Narrative Performed At FINAL REPORT [employer] MR, SPINE, LUMBAR, WITHOUT CONTRAST INDICATION: Eval [...] MD Report Verified Date/Time:11/06/2019 09:31:56 Reading Location: [facility] Radiolog Reading Room Procedure Note Interface, External Ris In - 11/06/2019 9:34 AM [employer] FINAL REPORT MR, SPINE, LUMBAR, WITHOUT CONTRAST [...] Verified Date/Time: 11/06/2019 0 9:31:56 Reading Location: [facility] Radiolog y Reading Room Performing Organization Address City/State/Zipcode Phone Number [facility] CBC with platelet count + automated diff (11/06/2019 3:51 AM [employer])Only the most recent of5 resultswithin the time [...] 1 (H) 0 - 0 % [facility] Specimen Blood Performing Organization Address City/State/Zipcode Phone Number [facility] [address] [phone] Comprehensive metabolic panel (11/06/2019 3:51 AM [employer])Only the most recent of3 resultswithin the time [...] AST 17 5 - 40 U/L [facility] ALT 10 5 - 50 U/L [facility] EGFR 81Comment: ESTIMATED GFR mL/min/1.73 sq m [facility] IS NOT ACCURATE CREATININE CLEARANCE IN PREDICTING GLOMERULAR FILTRATION RATE. ESTIMATED GFR IS NOT APPLICABLE FOR DIALYSIS PATIENTS. Specimen Blood Performing Organization Address City/State/Zipcode Phone Number [facility] [address] [place], [place] [phone] Hemoglobin A1c (11/03/2019 5:23 AM [employer]) Hemoglobin A1C <3.7 (L) 4.3 - 6.1 % [facility] Specimen Blood Performing Organization Address City/State/Zipcode Phone Number [facility] [address] [place], [place] [phone] CT spine lumbar without IV contrast (11/02/2019 9:29 PM [employer]) Specimen Narrative Performed At FINAL REPORT [employer] CT, SPINE, LUMBAR, WO CONTRAST, CT, SPIN [...] to retropulsed posterior cortical margin (possibly chronic). [employer] nicity could be better characterized by MRI [...] External Ris In - 11/02/2019 10:28 PM [employer] FINAL REPORT CT, SPINE, LUMBAR, WO CONTRAST, [...] to retropulsed posterior cortical margin (possibly chronic). [employer] nicity could be better characterized by MRI lumbar spine. Moderate thoracic and moderate to severe lumbar spondylosis, described above. Small right pleural effusion and bilater al pulmonary airspace disease, pulmonary contusion/hemorrhage and hemothorax or considerations in the setting of trauma. Additional chronic findings discussed ab ove. Signed: Bigg Philippe MD Report Verified Date/Time: 11/02/2019 2 2:26:12 Performing Organization Address City/State/Zipcode Phone Number [employer] CT spine thoracic without IV contrast (11/02/2019 9:29 PM [employer]) Specimen Narrative Performed At FINAL REPORT [employer] CT, SPINE, LUMBAR, WO CONTRAST, CT, SPIN [...] to retropulsed posterior cortical margin (possibly chronic). [employer] nicity could be better characterized by MRI [...] External Ris In - 11/02/2019 10:28 PM [employer] FINAL REPORT CT, SPINE, LUMBAR, WO CONTRAST, [...] to retropulsed posterior cortical margin (possibly chronic). [employer] nicity could be better characterized by MRI [...] Glu, Ca, BUN, Cr) (11/02/2019 8:39 PM [employer]) Sodium 139 135 - 148 meq/L [facility] [...] Blood Performing Organization Address City/State/Zipcode Phone Number [facility] [address] [phone] Urinalysis w/Microscopic (11/02/2019 8:02 PM [employer]) Color, UA Green [facility] Clarity, UA Cloudy [facility] Specific [place], UA 1.020 1.001 - 1.035 [facility] [...] [facility] Specimen Source [facility] Specimen Urine Performing Organization Address City/[facility]/Zipcode Phone Number [facility] [address] [place], [place] [phone] Urine culture (11/02/2019 8:02 PM [employer]) Result >100,000 col/mL Ellen glabrata (A) [facility] Specimen Urine Performing Organization Address [facility] Cent[facility]ode Phone Number [facility] [address] [place], [place] [address] XR spine lumbar 1 view (11/02/2019 7:34 PM [employer]) Specimen Narrative Performed At FINAL REPORT [facility] [...] MD Report Verified Date/Time:11/02/2019 19:40:44 Reading Location: [address] Reading Room Procedure Note Interface, External Ris In - 11/02/2019 7:42 PM [employer] FINAL REPORT EXAM: Lumbar spine one view [...] Verified Date/Time: 11/02/2019 1 9:40:44 Reading Location: [address] Reading Room Performing Organization Address City/[facility] Cent[facility]ode Phone Number [facility] after 04/29/2019 Insurance Payer Benefit Plan / Group Subscriber ID Type Phone A ddress MEDICARE MEDICARE A B xxxxxxxxxxx Medicare Advance Directives For more information, please contact:[phone] [place], [place] [phone] Code Status Date Activated Date Inactivated Comments Full Code 11/02/2019 11:07 PM 11/07/2019 5:41 PM This code status was determined by: Patient
--- OUTSIDE RECORDS SUMMARY | 2020-04-29 21:01 | XMS REPORT | Clinical Summary ---
:1945 Author Organization [facility] Address [address] [place] [address] Care Team Providers Name Role Phone Vivek Solorzano MD Primary Care Provider [phone] Allergies Active Allergy Reactions Severity Noted [...] cream Apply topically 0 Active as needed. levothyroxine Take 88 mcg by 0 10/13/ D iscontinued (SYNTHROID, LEVOXYL) mouth daily. 2018 100 mcg tablet oxyCODone-acetaminophe Take 1 tablet 0 / Discontinued n (PERCOCET) 7.5-325 by mouth every 2020 (Reorder) mg per tablet 6 (six) hours as needed. losartan (COZAAR) 50 Take 50 mg by 0 12/04 / Discontinued MG tablet mouth daily. 2019 (Stop T aking Hold for BP at Disch arge) less than 110 and Hr less than 60 hydroCHLOROthiazide Take 25 mg by 0 10/13/ Discontinued (HYDRODIURIL) 12.5 MG mouth daily. 2019 tablet mirabegron 25 mg Take by mouth 0 05/26/ Discontinued tablet extended daily. 2019 (Pat ient release 24 hr Report ed) methenam/sod Take by mouth 4 0 07/03/ D iscontinued phos/mblue/hyoscy (four) times a 2018 (Stop Taking (UROGESIC-BLUE ORAL) day. at Discharge) meclizine (ANTIVERT) Take 25 mg by 0 05/16 / Discontinued 25 mg tablet mouth 3 (three) 2018 ( Stop Taking times a day as at [facility]) needed for dizziness. conjugated estrogens Insert 0.5 g 0 12/04/ Discontinued (PREMARIN) 0.625 into the vagina 2019 (Stop Taking mg/gram vaginal cream 3 (three) times at Discharge) a week. On Tue. Tue. tuesday metroNIDAZOLE in 0.9% Infuse 100 mL 4200 mL 0 04/16/20 07/0 1/ sodium chloride (500 mg total) 2018 [...] (Stop Taking tablet by mouth daily at [facility]) for 30 days. pantoprazole Take 1 tablet 30 tablet 0 04/17/2005/16/ Dis continued (PROTONIX) 40 MG EC (40 mg total) 2018 (Stop Taking tablet by mouth daily at [facility]) for 30 days. vancomycin (VANCOCIN) Take 1 [...] tablet mouth daily. 2018 (Stop Taking at [facility]) docusate sodium Take 100 mg by 0 10/13/ Discontinued (COLACE) 100 MG mouth daily as 2019 capsule needed for constipation. fluconazole (DIFLUCAN) Take 1 tablet 1 tablet 0 05/31/20/ 100 MG tablet (100 mg total) 2018 by mouth daily for 1 day. levoFLOXacin Take 1 tablet 10 tablet 0 05/30/2006/09/ Exp ired (LEVAQUIN) 500 MG (500 mg total) 2018 tablet by mouth daily for 10 days. clonAZEPAM (KlonoPIN) Take 1 tablet 30 tablet 0 05/30/2005/02 1/ Discontinued 1 MG tablet (1 mg total) by 2018 (R eorder) mouth nightly as needed for anxiety (for [...] Apply topically 0 3/ Discontinued as needed. 2018 (Stop Warren ing at [facility]) cefdinir (OMNICEF) 300 Take 1 capsule 14 capsule 0 06/26/20 0 07/03/ Discontinued MG capsule (300 mg total) 2018 (Sto p Taking by mouth 2 at Discha rge) (two) times a day for 7 days. clonAZEPAM (KlonoPIN) Take 1 tablet 30 tablet 0 07/03/200 3/ 1 MG tablet (1 mg total) by 2018 mouth nightly as needed for anxiety (for sleep) for up to 30 days. levoFLOXacin Take 1 tablet 7 tablet 0 07/03/20 Exp ired (LEVAQUIN) 500 MG (500 mg total) 2018 tablet by mouth daily for 7 days. amoxicillin-pot Take 1 tablet 14 tablet 0 07/13/2007/20/ clavulanate by mouth 2 2018 (AUGMENTIN) 875-125 mg (two) times a per tablet day for 7 days. ondansetron ODT Take 1 tablet 10 tablet 0 07/13/20 (ZOFRAN ODT) 4 MG (4 mg total) [...] mouth daily. 2019 (Stop Taking capsule at [facility]) phenazopyridine (AZO Take 1 tablet 0 11/01 [...] mouth daily. 2019 (Stop Taking ORAL) at [facility]) lidocaine 3 % cream Apply 1 Dose 0 11/01/ Discontinued topically as 2019 (Stop T aking needed. at [facility]) ciprofloxacin (CIPRO) Take 1 tablet 10 tablet 0 10/19/20 12/ 5/ 500 MG tablet (500 mg total) [...] syringe (125 mg total) 0 by mouth 2 (two) times a day for 7 days. vancomycin (VANCOCIN) Take 2.5 mL 0 11/11/1911/22/ Discontinued 125 mg/2.5 mL syringe (125 mg total) 202 0 by mouth daily for 7 days. vancomycin (VANCOCIN) Take 2.5 mL 0 11/19/1912/04/ Discontinued 125 mg/2.5 mL syringe (125 mg total) 20 202 0 (Stop Taking by mouth every at Di scharge) other day for 14 days. clonAZEPAM (KlonoPIN) Take 1 tablet 0 11/01/19/ 1 MG tablet (1 mg total) by [...] 11/01/19/ n (PERCOCET) 7.5-325 by mouth every 2019 mg per 8 (eight) hours tabletIndications: as [...] 125 mg/2.5 mL syringe (125 mg total) 202 0 by mouth daily for 7 days. sulfamethoxazole-trime Take 1 tablet 20 tablet 0 11/22/19/ Discontinued thoprim (BACTRIM DS) by mouth 2 2019 (Stop Taking 800-160 mg per tablet (two) times a at Discharge) day for 10 days. nitrofurantoin Take 50 mg by 0 12/04/ D iscontinued (MACRODANTIN) 50 MG mouth daily. Pt 2020 (Stop Taking capsule stated last at Disch arge) dose is on 2/2 phenazopyridine (AZO Take 97.5 mg by 0 / Discontinued URINARY PAIN RELIEF) mouth 3 (three) 0 (Stop Taking 97.5 mg tablet times a day as at Discharge) needed. Lactobacillus Take 1 tablet 90 tablet 0 12/04/1901/02/ Ex pired acidoph-L.bulgar by mouth 3 2019 (FLORANEX) 1 [...] Specialty Care Team Description 12/04/2019 Patient Outreach [place] Talamantes RN 12/04/2019 Patient Outreach [place] Talamantes RN 12/01/2019 - Hospital Encounter General Internal [...] - Hospital Encounter General Internal Elier Polk Re current UTI (Primary Dx); 11/01/2019 Medicine Juliette PIERRE MD Dehydration, moderate; Franca Pineda Acute renal ins ufficiency MD Evans 10/13/2019 - Hospital Encounter General Internal Cristian Sada U rinary tract 10/19/2019 Katerin Brown MD infection without Franca Pineda hematuria, site MD [place] unspecified (Pr imary Dx) 08/19/2019 Emergency Emergency Mustapha Stack Dysuria (Prim diana Dx); Katerin Valentine MD Chronic pelvic pain in female; Chronic cystiti s 07/13/2019 Emergency Emergency Cali Ch Body aches (P rimary Dx); Medicine Lamine Cota, Upper respi ratory tract infection, unspecified type; Leukocytes in u rine 06/30/2019 - Hospital Encounter General Internal Elier Polk Ac seldovia UTI (Primary Dx); 07/03/2019 Medicine Juliette PIERRE MD Failure of outpatient treatment Franca Pineda MD 06/22/2019 - Hospital Encounter General Internal Chowdhury, Urina ry tract 06/26/2019 Medicine MD Robin infection with Franca Pineda hematuria, site MD [place] unspecified (Pr imary Dx) 06/06/2019 Anesthesia Event General Surgery Sanjuana Abarca MD Pasdar-Shirazi, Francisco, MD 06/06/2019 Surgery General Surgery Barbara Rosales, Cystoscop cindy OWENS 06/05/2019 - Hospital Encounter General Internal Franca Pineda Urina ry tract infection without hematuria, site unspecified (Primary Dx); 06/09/2019 Medicine MD Evans Dysuria; Bladder pain 06/03/2019 Emergency Emergency Brandon Hernandez, Acute pelvic pain (Primary Dx); Medicine DO Acute cystitis without hematuria 06/03/2019 Travel 05/26/2019 - Hospital Encounter General Internal Brandt Chowdhuryina ry tract 05/30/2019 Medicine MD Robin infection with Edwin, Salman hematuria, site MD [place] unspecified (Pr imary Dx) 05/18/2019 Patient Outreach Quality Edna Allen RN 05/13/2019 - Hospital Encounter General Internal Brandon Hernandez, Uri nary tract 05/16/2019 Medicine DO infection without Edwin, Salman hematuria, site MD [place] unspecified (Pr imary Dx) after 04/29/2019 Family History Medical History Relation Name Comments [...] Comments Blood Pressure 120/62 12/04/2019 3:41 PM [employer] Pulse 84 12/04/2019 3:41 PM [employer] Temperature 36.4 C (97.6 F) 12/04/2019 3:41 PM [employer] Respiratory Rate 18 12/04/2019 3:41 PM [employer] Oxygen Saturation 95% 12/04/2019 3:41 PM [employer] Inhaled Oxygen Concentration - - Weight 70.1 kg (154 lb 8 oz) 12/04/2019 4:47 AM [employer] Height 165.1 cm (5' 5") 11/19/2019 7:50 PM [employer] Body Mass Index 25.71 11/19/2019 7:50 PM [employer] Plan of Treatment Health Maintenance Due Date Last Done Comments BREAST CANCER SCREENING 1997 COLONOSCOPY SCREENING 1997 SHINGLES VACCINES (#1) 1997 65+ PNEUMOCOCCAL VACCINE (2 of 2 - PPSV23) 08/20/201208/07 INFLUENZA VACCINE 05/31/2020 08/05/2016, 2015 Implants Implanted Type Area Director Quality Systems Device Identifier Shelf Exp iration Model / Serial Date / Lot Screw Screw Procedures Procedure Name Priority Date/Time Associated Comments Diagnosis ESTIMATED GFR Routine 12/04/2019 7:50 Results fo r this AM [employer] procedure are i n the results section. BASIC METABOLIC PANEL Routine 12/04/2019 7:50 Re sults for this AM [employer] procedure are i n the results section. XR CHEST 1 VW PORTABLE Routine 12/03/2019 7:20 R esults for this AM [employer] procedure are i n the results section. ESTIMATED GFR Routine 12/03/2019 5:20 Results fo r this AM [employer] procedure are i n the results section. BASIC METABOLIC PANEL Routine 12/03/2019 5:20 Re sults for this AM [employer] procedure are i n the results section. URINE CULTURE Routine 12/02/2019 12:53 Results fo r this PM [employer] procedure are i n the results section. URINALYSIS SCREEN AND Routine 12/02/2019 11:30 Re sults for this MICROSCOPY, WITH REFLEX AM [employer] proc edure are in TO CULTURE the results section. AMIKACIN LEVEL, PEAK Routine 12/02/2019 10:15 Res ults for this AM [employer] procedure are i n the results section. AMIKACIN LEVEL, TROUGH Routine 12/02/2019 8:50 R esults for this AM [employer] procedure are i n the results section. US RENAL Routine 12/02/2019 5:59 Results for this AM [employer] procedure are i n the results section. ESTIMATED GFR Routine 12/02/2019 5:10 Results fo r this AM [employer] procedure are i n the results section. URIC ACID LEVEL Routine 12/02/2019 5:10 Results for this AM [employer] procedure are i n the results section. CREATINE KINASE, TOTAL Routine 12/02/2019 5:10 R esults for this (CPK) AM [employer] procedure are i n the results section. COMPREHENSIVE METABOLIC Routine 12/02/2019 5:10 Results for this PANEL AM [employer] procedure are i n the results section. HC COMPLETE BLD COUNT Routine 12/02/2019 5:10 Re sults for this W/AUTO DIFF AM [employer] procedure are i n the results section. CREATININE LEVEL, URINE, Routine 12/01/2019 7:30 Results for this RANDOM PM [employer] procedure are i n the results section. PROTEIN, URINE, RANDOM Routine 12/01/2019 7:30 R esults for this PM [employer] procedure are i n the results section. LACTIC ACID LEVEL, Timed 12/01/2019 7:30 Resul ts for this SEPSIS - NOW AND REPEAT AM [employer] proc edure are in 2X EVERY 3 HOURS the results section. XR CHEST 1 VW PORTABLE STAT 12/01/2019 5:32 R esults for this AM [employer] procedure are i n the results section. URINE CULTURE STAT 12/01/2019 5:27 Results fo r this AM [employer] procedure are i n the results section. BLOOD CULTURE, AEROBIC & Routine 12/01/2019 5:05 Results for this ANAEROBIC AM [employer] procedure are i n the results section. URINALYSIS SCREEN AND STAT 12/01/2019 4:38 Re sults for this MICROSCOPY, WITH REFLEX AM [employer] proc edure are in TO CULTURE the results section. ESTIMATED GFR STAT 12/01/2019 4:35 Results fo r this AM [employer] procedure are i n the results section. LACTIC ACID LEVEL, STAT 12/01/2019 4:35 Resul ts for this SEPSIS - NOW AND REPEAT AM [employer] proc edure are in 2X EVERY 3 HOURS the results section. COMPREHENSIVE METABOLIC STAT 12/01/2019 4:35 Results for this PANEL AM [employer] procedure are i n the results section. PARTIAL THROMBOPLASTIN STAT 12/01/2019 4:35 R esults for this TIME (PTT) AM [employer] procedure are i n the results section. PROTHROMBIN TIME WITH STAT 12/01/2019 4:35 Re sults for this INR AM [employer] procedure are i n the results section. HC COMPLETE BLD COUNT STAT 12/01/2019 4:35 Re sults for this W/AUTO DIFF AM [employer] procedure are i n the results section. BLOOD CULTURE, AEROBIC & Routine 12/01/2019 4:35 Results for this ANAEROBIC AM [employer] procedure are i n the results section. ESTIMATED GFR Routine 11/23/2019 3:25 Results fo r this AM [employer] procedure are i n the results section. BASIC METABOLIC PANEL Routine 11/23/2019 3:25 Re sults for this AM [employer] procedure are i n the results section. HC COMPLETE BLD COUNT Routine 11/23/2019 3:25 Re sults for this W/AUTO DIFF AM [employer] procedure are i n the results section. GASTROINTESTINAL PANEL Routine 11/21/2019 8:46 R esults for this PM [employer] procedure are i n the results section. TROPONIN Timed 11/21/2019 5:20 Results for this PM [employer] procedure are i n the results section. XR CHEST 1 VW PORTABLE Routine 11/21/2019 12:34 R esults for this PM [employer] procedure are i n the results section. ECG 12-LEAD Routine 11/21/2019 11:26 Results for this AM [employer] procedure are i n the results section. TROPONIN Timed 11/21/2019 11:15 Results for this AM [employer] procedure are i n the results section. ESTIMATED GFR Routine 11/21/2019 5:15 Results fo r this AM [employer] procedure are i n the results section. COMPREHENSIVE METABOLIC Routine 11/21/2019 5:15 Results for this PANEL AM [employer] procedure are i n the results section. HC COMPLETE BLD COUNT Routine 11/21/2019 5:15 Re sults for this W/AUTO DIFF AM [employer] procedure are i n the results section. URINE CULTURE Routine 11/20/2019 3:48 Results fo r this PM [employer] procedure are i n the results section. GRAM STAIN Routine 11/20/2019 3:48 Results for this PM [employer] procedure are i n the results section. URINALYSIS SCREEN AND Routine 11/20/2019 3:21 Re sults for this MICROSCOPY, WITH REFLEX PM [employer] proc edure are in TO CULTURE the results section. GASTROINTESTINAL PANEL Routine 11/19/2019 6:25 R esults for this PM [employer] procedure are i n the results section. ESTIMATED GFR STAT 11/19/2019 5:20 Results fo r this PM [employer] procedure are i n the results section. LIPASE LEVEL STAT 11/19/2019 5:20 Results for this PM [employer] procedure are i n the results section. COMPREHENSIVE METABOLIC STAT 11/19/2019 5:20 Results for this PANEL PM [employer] procedure are i n the results section. HC COMPLETE BLD COUNT STAT 11/19/2019 5:20 Re sults for this W/AUTO DIFF PM [employer] procedure are i n the results section. ESTIMATED GFR Routine 11/01/2019 4:25 Results fo r this AM [employer] procedure are i n the results section. HC COMPLETE BLD COUNT Routine 11/01/2019 4:25 Re sults for this W/AUTO DIFF AM [employer] procedure are i n the results section. BASIC METABOLIC PANEL Routine 11/01/2019 4:25 Re sults for this AM [employer] procedure are i n the results section. ESTIMATED GFR Routine 10/31/2019 5:00 Results fo r this AM [employer] procedure are i n the results section. HC COMPLETE BLD COUNT Routine 10/31/2019 5:00 Re sults for this W/AUTO DIFF AM [employer] procedure are i n the results section. BASIC METABOLIC PANEL Routine 10/31/2019 5:00 Re sults for this AM [employer] procedure are i n the results section. ESTIMATED GFR Routine 10/30/2019 4:00 Results fo r this AM [employer] procedure are i n the results section. HC COMPLETE BLD COUNT Routine 10/30/2019 4:00 Re sults for this W/AUTO DIFF AM [employer] procedure are i n the results section. BASIC METABOLIC PANEL Routine 10/30/2019 4:00 Re sults for this AM [employer] procedure are i n the results section. ESTIMATED GFR Routine 10/29/2019 3:10 Results fo r this AM [employer] procedure are i n the results section. HC COMPLETE BLD COUNT Routine 10/29/2019 3:10 Re sults for this W/AUTO DIFF AM [employer] procedure are i n the results section. BASIC METABOLIC PANEL Routine 10/29/2019 3:10 Re sults for this AM [employer] procedure are i n the results section. CT LUMBAR SPINE WO Routine 10/28/2019 2:52 Resul ts for this CONTRAST PM [employer] procedure are i n the results section. ECG 12-LEAD Routine 10/28/2019 9:27 Results for this AM [employer] procedure are i n the results section. GRAM STAIN Routine 10/28/2019 7:31 Results for this AM [employer] procedure are i n the results section. URINE CULTURE Routine 10/28/2019 7:31 Results fo r this AM [employer] procedure are i n the results section. XR SHOULDER 2+ VW RIGHT STAT 10/28/2019 7:11 Results for this AM [employer] procedure are i n the results section. ECG 12-LEAD STAT 10/28/2019 6:22 Results for this AM [employer] procedure are i n the results section. XR PELVIS 1 OR 2 VW STAT 10/28/2019 6:18 Resu lts for this AM [employer] procedure are i n the results section. SMEAR REVIEW STAT 10/28/2019 5:40 Results for this AM [employer] procedure are i n the results section. ESTIMATED GFR STAT 10/28/2019 5:40 Results fo r this AM [employer] procedure are i n the results section. COMPREHENSIVE METABOLIC STAT 10/28/2019 5:40 Results for this PANEL AM [employer] procedure are i n the results section. HC COMPLETE BLD COUNT STAT 10/28/2019 5:40 Re sults for this W/AUTO DIFF AM [employer] procedure are i n the results section. URINALYSIS SCREEN AND Routine 10/28/2019 5:30 Re sults for this MICROSCOPY, WITH REFLEX AM [employer] proc edure are in TO CULTURE the results section. ESTIMATED GFR Routine 10/19/2019 6:30 Results fo r this AM [employer] procedure are i n the results section. BASIC METABOLIC PANEL Routine 10/19/2019 6:30 Re sults for this AM [employer] procedure are i n the results section. HC COMPLETE BLD COUNT Routine 10/19/2019 4:00 Re sults for this W/AUTO DIFF AM [employer] procedure are i n the results section. SMEAR REVIEW Routine 10/18/2019 5:50 Results for this AM [employer] procedure are i n the results section. ESTIMATED GFR Routine 10/18/2019 5:50 Results fo r this AM [employer] procedure are i n the results section. HC COMPLETE BLD COUNT Routine 10/18/2019 5:50 Re sults for this W/AUTO DIFF AM [employer] procedure are i n the results section. BASIC METABOLIC PANEL Routine 10/18/2019 5:50 Re sults for this AM [employer] procedure are i n the results section. ESTIMATED GFR Routine 10/17/2019 5:45 Results fo r this AM [employer] procedure are i n the results section. HC COMPLETE BLD COUNT Routine 10/17/2019 5:45 Re sults for this W/AUTO DIFF AM [employer] procedure are i n the results section. BASIC METABOLIC PANEL Routine 10/17/2019 5:45 Re sults for this AM [employer] procedure are i n the results section. ESTIMATED GFR Routine 10/16/2019 10:09 Results fo r this AM [employer] procedure are i n the results section. HC COMPLETE BLD COUNT Routine 10/16/2019 10:09 Re sults for this W/AUTO DIFF AM [employer] procedure are i n the results section. BASIC METABOLIC PANEL Routine 10/16/2019 10:09 Re sults for this AM [employer] procedure are i n the results section. CLOSTRIDIUM DIFFICILE Routine 10/16/2019 4:20 Re sults for this TOXIN AM [employer] procedure are i n the results section. TROPONIN Timed 10/14/2019 6:20 Results for this AM [employer] procedure are i n the results section. LACTIC ACID LEVEL, Timed 10/14/2019 6:20 Resul ts for this SEPSIS - NOW AND REPEAT AM [employer] proc edure are in 2X EVERY 3 HOURS the results section. TROPONIN Timed 10/13/2019 10:40 Results for this PM [employer] procedure are i n the results section. LACTIC ACID LEVEL, Timed 10/13/2019 10:40 Resul ts for this SEPSIS - NOW AND REPEAT PM [employer] proc edure are in 2X EVERY [address] results section[address] CT ABDOMEN PELVIS W STAT 10/13/2019 3:18 Resu lts for this CONTRAST PM [employer] procedure are i n the results section. GRAM STAIN Routine 10/13/2019 2:04 Results for this PM [employer] procedure are i n the results section. URINE CULTURE Routine 10/13/2019 2:04 Results fo r this PM [employer] procedure are i n the results section. BLOOD CULTURE, AEROBIC & Routine 10/13/2019 1:44 Results for this ANAEROBIC PM [employer] procedure are i n the results section. ESTIMATED GFR STAT 10/13/2019 1:40 Results fo r this PM [employer] procedure are i n the results section. TROPONIN Timed 10/13/2019 1:40 Results for this PM [employer] procedure are i n the results section. COMPREHENSIVE METABOLIC STAT 10/13/2019 1:40 Results for this PANEL PM [employer] procedure are i n the results section. HC COMPLETE BLD COUNT STAT 10/13/2019 1:40 Re sults for this W/AUTO DIFF PM [employer] procedure are i n the results section. LACTIC ACID LEVEL, STAT 10/13/2019 1:40 Resul ts for this SEPSIS - NOW AND REPEAT PM [employer] proc edure are in 2X EVERY 3 HOURS the results section. BLOOD CULTURE, AEROBIC & Routine 10/13/2019 1:40 Results for this ANAEROBIC PM [employer] procedure are i n the results section. XR CHEST 1 VW PORTABLE STAT 10/13/2019 1:37 R esults for this PM [employer] procedure are i n the results section. ECG 12-LEAD STAT 10/13/2019 1:27 Results for this PM [employer] procedure are i n the results section. URINALYSIS SCREEN AND Routine 10/13/2019 1:02 Re sults for this MICROSCOPY, WITH REFLEX PM [employer] proc edure are in TO CULTURE the results section. ECG ED PRELIMINARY Routine 10/13/2019 12:47 Resul ts for this INTERPRETATION PM [employer] procedure are in the results section. URINE [...] in TO CULTURE the results section. after 04/29/2019 Results Estimated GFR (12/04/2019 7:50 AM [employer])Only the most recent of36 resultswithin the time period is included. Estimated GFR 72 mL/min/1.73 [facility]AL[facility] JAINISM Comment: m2 [place] Catergory Units Interpretation [facility] G1 >=90 [...] 2014. Specimen Plasma specimen Performing Organization Address City/[facility] Cent[facility]ode Phone Number [facility] DEPARTMENT OF PATHOLOGY [address] [facility] [address] [facility] [id number] [place] [phone] [place] [address] Basic metabolic panel (12/04/2019 7:50 AM [employer])Only the most recent of18 results within the time period is included. Pathologist Sig nature Sodium 139 135 - 148 mEq/L [facility] Potassium 4.2 3.5 - 5.0 mEq/L [facility] Chloride 108 98 - 112 mEq/L [facility] CO2 21 (L) 24 - 31 mEq/L [facility] Anion gap 10@ANIO 7 - 15 mEq/L [facility] BUN 14 8 - 23 mg/dL [facility] Creatinine 0.81 0.50 - 0.90 mg/dL [facility] Glucose 102 (H) 65 - 99 mg/dL [facility] Calcium 9.0 8.8 - 10.2 mg/dL [facility] Specimen Plasma specimen Performing Organization Address [facility] Centercode Phone Number [facility] DEPARTMENT OF PATHOLOGY [address] [facility] [place] [address] [facility] [id number] [place] [address] X [phone] HOSPITAL XR Chest 1 Vw Portable (12/03/2019 7:20 AM [employer])Only the most recent of5 results within the time period is included. Specimen Narrative Performed At EXAMINATION: XR CHEST 1 VW PORTABLE [facility] CLINICAL HISTORY: cough COMPARISON: To a previous examination from 12/01/2019 IMPRESSION: The heart is normal in appearance. The lungs are clear . Presumed postsurgical changes are noted involving the distal left clavicle. [facility]-[id number] Procedure Note Interface, Radiology Results Incoming - 12/03/2019 7:29 AM [employer] EXAMINATION: XR CHEST 1 VW PORTABLE CLINICAL HISTORY: cough COMPARISON: To a previous examination f rom 12/01/2019 IMPRESSION: The heart is normal in appearance. The l ungs are clear. Presumed postsurgical changes are noted involving the distal left clavicle. [facility]-[id number] Performing Organization Address City/[facility]/Zipcode Phone Number [facility] [address] [place] [phone] Urine culture (12/02/2019 12:53 PM [employer])Only the most recent of15 resultswithin the time period is included. 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 Specimen site Clean catch [facility] Color, UA Yellow [facility] Appearance, UA Turbid [facility] Specific gravity, UA 1.013 1.001 - 1.030 [facility] pH, UA 5.0 5.0 - 9.0 [facility] Protein, UA 2+ (A) Negative [facility] Glucose, UA Negative Negative [facility] Ketones, UA Negative Negative [facility] Bilirubin, UA Negative Negative [facility] Blood, UA Negative Negative [facility] Nitrite, UA Positive (A) Negative [facility] Urobilinogen, UA 2.0 (A) <2.0 E.U./dL [facility] Leukocyte esterase, Moderate (A) Negative [facility] Epithelial cells, UA 10 /HPF [facility] Round epithelial 1 0 - 5 /HPF [facility] cells, [facility] WBC, UA >200 (H) 0 - 4 /HPF [facility] RBC, UA 17 (H) 0 - 5 /HPF [facility] Bacteria, UA Few None seen [facility] WBC clumps, UA Many (A) [facility] Yeast, UA Few (A) [facility] Yeast with Few (A) [facility] pseudohyphae, UA [facility] Specimen Urine Performing Organization Address City/[facility] Centercode Phone Number [facility] DEPARTMENT OF PATHOLOGY [address] [facility] [place] [address] AND GENOMIC MEDICINE [facility] [address] [facility] X [address] HOSPITAL Amikacin level, peak (12/02/2019 10:15 AM CUPOLA MECHANIC) Pathologist Sig nature Amikacin, peak 30.6 (H) 20.0 - 25.0 ug/mL [facility] Specimen Plasma specimen Performing Organization Address [facility] Centercode Phone Number [facility] DEPARTMENT OF PATHOLOGY AND [address] [place] [address] [address] [address] Amikacin level, trough (12/02/2019 8:50 AM CUPOLA MECHANIC) Pathologist Sig nature Amikacin, trough 2.4 (L) 5.0 - 10.0 ug/mL [facility] Specimen Plasma specimen Performing Organization Address [facility] Centercofl Phone Number [facility] DEPARTMENT OF PATHOLOGY AND [address] [place] [address] [address] [address] [place] Renal (12/02/2019 5:59 AM CUPOLA MECHANIC) Specimen Narrative Performed At EXAMINATION: US RENAL [...] stones or hydronephrosis. 5.The bladder is unremarkable. [facility]-[id number] Procedure Note Hm Interface, Radiology Results Incoming - 12/02/2019 7:19 AM CUPOLA MECHANIC EXAMINATION: US RENAL CLINICAL HISTORY: Renal failure [...] stones or hydronephrosis. 5.The bladder is unremarkable. [facility]-[id number] Performing Organization Address City/State/Zipcode Phone Number [facility] [address] [place] [address] CBC with platelet and differential (12/02/2019 5:10 AM CUPOLA MECHANIC)Only the most recent of34 resultswithin the time period is included. WBC 6.2 4.5 - 11.0 k/uL [facility] RBC 2.97 (L) 4.20 - 5.50 [facility] m/uL [facility] HGB 9.1 (L) 12.0 - 16.0 [facility] g/dL [facility] HCT 29.6 (L) 37.0 - 47.0 % [facility] MCV 99.7 82.0 - 100.0 fL [facility] MCH 30.6 27.0 - 34.0 pg [facility] MCHC 30.7 (L) 31.0 - 37.0 [facility] g/dL [facility] RDW - SD 48.4 37.0 - 55.0 fL [facility] MPV 9.8 6.9 - 11.0 fL [facility] Platelet count 195 150 - 400 K/uL [facility] Nucleated RBC 0.00 /100 WBC [facility] Neutrophils 76.5 (H) 39.0 - 69.0 % [facility] Lymphocytes 7.9 (L) 25.0 - 45.0 % [facility] Monocytes 13.9 (H) 0.0 - 10.0 % [facility] Eosinophils 1.1 0.0 - 5.0 % [facility] Basophils 0.3 0.0 - 1.0 % [facility] Immature granulocytes 0.3 0.0 - 1.0 % [facility] Specimen Blood Performing Organization Address [facility] Centercode Phone Number [facility] DEPARTMENT OF PATHOLOGY [address] [place] [address] Uric acid level (12/02/2019 5:10 AM CUPOLA MECHANIC) Pathologist Sig [facility] Uric acid 6.0 (H) 2.4 - 5.7 mg/dL [facility] Specimen Plasma specimen Performing Organization Address [facility] Phone Number [facility] DEPARTMENT OF PATHOLOGY [address] [place] [address] Creatine kinase, total (CPK) (12/02/2019 5:10 AM CUPOLA MECHANIC)Only the most recent of2 resultswithin the time period is included. Pathologist [facility] Creatine kinase 27 26 - 192 U/L [facility] Specimen Plasma specimen Performing Organization Address [facility] Phone Number [facility] DEPARTMENT OF PATHOLOGY [address] [place] [address] Comprehensive metabolic panel (12/02/2019 5:10 AM CUPOLA MECHANIC)Only the most recent of18 resultswithin the time period is included. Pathologist Sig [facility] Sodium 140 135 - 148 mEq/L [facility] Potassium 4.5 3.5 - 5.0 mEq/L [facility] Chloride 110 98 - 112 mEq/L [facility] CO2 21 (L) 24 - 31 mEq/L [facility] Anion gap 9@ANIO 7 - 15 mEq/L [facility] BUN 12 8 - 23 mg/dL [facility] Creatinine 1.03 (H) 0.50 - 0.90 [facility] mg/dL [facility] Glucose 97 65 - 99 mg/dL [facility] Calcium 8.9 8.8 - 10.2 [facility] mg/dL [facility] Protein 5.2 (L) 6.3 - 8.3 g/dL [facility] Albumin 3.0 (L) 3.5 - 5.0 g/dL [facility] A/G ratio 1.4 0.7 - 3.8 [facility] Alkaline phosphatase 100 35 - 104 U/L [facility] AST 13 10 - 35 U/L [facility] ALT 7 5 - 50 U/L [facility] Total bilirubin 0.3 0.2 - 1.2 mg/dL [facility] Specimen Plasma specimen Performing Organization Address City/[facility] Centercofl Phone Number [facility] DEPARTMENT OF PATHOLOGY [address] [place] [address] AND GENOMIC MEDICINE [address] [place] [address] [facility] Protein, urine, random (12/01/2019 7:30 PM CUPOLA MECHANIC) Pathologist Sig nature Total volume, urine 30 mL [facility] Urine protein 102 mg/dL [facility] Urine protein excretion 31 mg/vol [facility] Specimen Urine Performing Organization Address City/[facility] Centercofl Phone Number [facility] DEPARTMENT OF PATHOLOGY [address] [place] [address] AND GENOMIC MEDICINE [address] [place] [address] [facility] Creatinine level, urine, random (12/01/2019 7:30 PM CUPOLA MECHANIC) Pathologist Sig nature Total volume, urine 30 mL [facility] Urine creatinine 24 mg/dL [facility] Urine creatinine excretion 7 mg/vol [facility] Specimen Urine Performing Organization Address City/[facility] Centercode Phone Number [facility] DEPARTMENT OF PATHOLOGY [address] [place] [address] X [address] [place] [address] [facility] Lactic acid level, SEPSIS - Now and repeat 2x every 3 hours (12/01/2019 7:30 AM CUPOLA MECHANIC)Only the most recent of14 resultswithin the time period is included. Pathologist Sig nature Lactic acid 1.9 0.5 - 2.2 mmol/L [facility] Specimen Plasma specimen Performing Organization Address [facility]/Zipcode Phone Number [facility] DEPARTMENT OF PATHOLOGY [id number] [place] [address] Blood culture, aerobic & anaerobic (12/01/2019 5:05 AM CUPOLA MECHANIC)Only the most recent of14 resultswithin the time period is included. Blood culture No growth after 5 days of incubation. MARYLOU LABOY isolate Comment: HOSPITAL Specimen Information Specimen Source: Blood Specimen Site: Wrist, right Specimen Blood - Wrist, right Performing Organization Address [facility] Centercode Phone Number [facility] DEPARTMENT OF PATHOLOGY AND [address] [place], [place] [address] [address] Partial thromboplastin time, activated (12/01/2019 4:35 AM CUPOLA MECHANIC)Only the most recent of2 resultswithin the time period is included. PTT 25.3 23.0 - 36.0 SADAF LABOY Comment: [facility] PTT therapeutic range for unfractionated heparin is HOSPITAL 61.0-112.0 seconds which corresponds to Anti-Xa 0.3-0.7 U/ml. Specimen Blood Performing Organization Address City/[facility]/Zipcode Phone Number [facility] DEPARTMENT OF PATHOLOGY [id number] [place] [address] X [address] Prothrombin time with INR (12/01/2019 4:35 AM CUPOLA MECHANIC)Only the most recent of2 resultswithin the time period is included. Prothrombin time 13.7 11.5 - 14.5 [facility] INR 1.1 [place] Comment: JAINISM SUGAR The International Normalized Ratio (INR) is a therapeu [facility] monitoring tool for patients who are stable on oral anticoagulant therapy. An INR of 2.0-3.0 is suggested for deep vein thrombosis/pulmonary embolism. Specimen Blood Performing Organization Address City/State/Zipcode Phone Number [facility] DEPARTMENT OF PATHOLOGY [address] [facility] [place] [address] [facility] [address] [facility] [place] [address] HOSPITAL Gastrointestinal panel (11/21/2019 8:46 PM CUPOLA MECHANIC)Only the most recent of2 results within the time period is included. [facility] Gastrointestinal panel Negative for all pathogens tested: [place] Negative for Salmonella JAINISM Negative for Campylobacter [facility] Negative for Diarrheagenic E coli/Shigella Negative for [...] Nonpreserved Performing Organization Address City/State/Zipcode Phone Number [facility] DEPARTMENT OF PATHOLOGY AND [address] [place], [place] [address] [facility] [address] [place] [address] Troponin (11/21/2019 5:20 PM CUPOLA MECHANIC)Only the most recent of9 resultswithin the time period is included. [facility] Troponin <0.006 0.000 - 0.040 SADAF GALLEGOSIST Comment: ng/mL [facility] In patients suspected of having a [...] ng/mL Specimen Plasma specimen Performing Organization Address [facility] Phone Number [facility] DEPARTMENT OF PATHOLOGY [address] [facility] [address] AND GENOMIC MEDICINE [facility] [employer] [facility] [address] [facility] [address] [facility] ECG 12 lead (11/21/2019 11:26 AM CUPOLA MECHANIC)Only the most recent of7 resultswithin the time period is included. Pathologist Sig nature Ventricular rate 74 [facility] Atrial rate [address] interval 178 [facility] QRSD interval 70 [...] is no t available. Performing Organization Address [facility]/Zipcode Phone Number [facility] MUSE [address] [place] [address] Gram stain (11/20/2019 3:48 PM CUPOLA MECHANIC)Only the most recent of13 resultswithin the time period is included. Gram stain result Occasional WBC's [facility] Moderate Gram negative rods [facility] Comment: Specimen Information Specimen Source: Urine Specimen Site: Catheterized Specimen Urine - Catheterized Performing Organization Address City/[facility]/Zipcode Phone Number [facility] DEPARTMENT OF PATHOLOGY AND [address] [place], [place] [address] [facility] [address] [place] [address] Lipase level (11/19/2019 5:20 PM CUPOLA MECHANIC)Only the most recent of4 resultswithin the time period is included. Pathologist Sig nature Lipase 7 (A) 13 - 60 U/L [facility] Specimen Plasma specimen Performing Organization Address [facility] Centercode Phone Number [facility] DEPARTMENT OF PATHOLOGY [id number] [place] [address] [address] [facility] [address] [place] [address] Lumbar Spine Wo Contrast (10/28/2019 2:52 PM CUPOLA MECHANIC) Specimen Narrative Performed At EXAMINATION: CT LUMBAR SPINE WO CONTRA ST [facility] CLINICAL HISTORY: Back pain risk factors [...] pro trusion. Bilateral facet arthropathy. There is zskr-ky-zlftdnuz neural fo raminal stenosis. The central canal [...] scoliosis of lumbar spine resulting in mi va-bf-qblvbsvv neural foraminal stenosis as described a fran [id number] Procedure Note Hm Interface, Radiology Results Incoming - 10/28/2019 3:05 PM CUPOLA MECHANIC EXAMINATION: CT LUMBAR SPINE WO CONTRAST CLINICAL [...] disc protrusion. Bilateral facet arthropathy. There is izus-ur-eegnxaae neural foraminal stenosis. The central canal is [...] dextroconvex scoliosis of lumbar spine resulting in klbs-vf-sfdfshwa neural foraminal stenosis as described above [facility]-[id number] Performing Organization Address [facility] Centercofl Phone Number [facility] [address] [place] [address] XR Shoulder 2+ Vw Right (10/28/2019 7:11 AM CUPOLA MECHANIC) Specimen Narrative Performed At EXAMINATION: XR SHOULDER 2 VW RIGHT [facility] CLINICAL HISTORY: shoulder pain COMPARISON: Most recent [facility] prior. IMPRESSION: There is no acute fracture. Joint spaces are preserved . Soft tissues are unremarkable. [facility]-[id number] Procedure Note Hm Interface, Radiology Results Incoming - 10/28/2019 8:14 AM CUPOLA MECHANIC EXAMINATION: XR SHOULDER 2 VW RIGHT CLINICAL HISTORY: shoulder pain COMPARISON: Most recent [facility] prior. IMPRESSION: There is no acute fracture. Joint spaces are preserved. Soft tissues are unremarkable. [facility]-[id number] Performing Organization Address [facility] Centercofl Phone Number [facility] [address] [place] [address] XR Pelvis 1 Or 2 Vw (10/28/2019 6:18 AM CUPOLA MECHANIC) Specimen Narrative Performed At EXAMINATION: XR PELVIS 1 OR 2 VW [facility] CLINICAL HISTORY: fall COMPARISON: Most recent [facility] prior. IMPRESSION: Post-ORIF changes involving the proximal right femur, without evidence of loosening or hardware failure. No acute fracture. O ld right femoral neck fracture is present. There are surgical raphael i n the right pelvis. There is moderate degenerative c hange at the right hip. [facility]-[id number] Procedure Note Hm Interface, Radiology Results Incoming - 10/28/2019 8:12 AM CUPOLA MECHANIC EXAMINATION: XR PELVIS 1 OR 2 VW CLINICAL HISTORY: fall COMPARISON: Most recent [facility] prior. IMPRESSION: Post-ORIF changes involving the proximal right femur, without evidence of loosening or hardware failure. No acute fracture. Old right femoral neck fracture is present. There are surgical raphael in the right pelvis. There is moderate degenerative change at the right hip. [facility]-[id number] Performing Organization Address City/[facility]/Zipcode Phone Number [facility] [address] [place] [address] Smear review (10/28/2019 5:40 AM CUPOLA MECHANIC)Only the most recent of2 resultswithin the time period is included. Platelet slide review Maritza slt decr (A) [facility] Anisocytosis Moderate [facility] Ovalocytes Moderate [facility] Specimen Performing Organization Address City/[facility]/Zipcode Phone Number [facility] DEPARTMENT OF PATHOLOGY [address] [facility] [place] [address] AND [facility] [address] [place] [phone] [place] [address] C difficile toxin (10/16/2019 4:20 AM CUPOLA MECHANIC) Clostridium Positive for C. difficile toxin (A) [place] difficile toxin Comment: HOSPITAL Specimen Information Specimen Source: Stool Specimen Site: Nonpreserved Specimen Stool - Nonpreserved Performing Organization Address City/[facility]/Zipcode Phone Number [facility] DEPARTMENT OF PATHOLOGY AND [address] [place], [place] [address] GENOMIC [facility] [address] [place] [address] CT Abdomen Pelvis W Contrast (10/13/2019 3:18 PM CUPOLA MECHANIC) Specimen Narrative Performed At EXAMINATION: CT ABDOMEN [...] findings in the abdomen or pe lvis. [id number] Procedure Note Hm Interface, Radiology Results Incoming - 10/13/2019 3:34 PM CUPOLA MECHANIC EXAMINATION: CT ABDOMEN PELVIS W CONTRAST CLINICAL [...] findings in the abdomen or pe lvis. [facility]-[id number] Performing Organization Address City/State/Zipcode Phone Number [facility] [address] [place] [address] ECG ED Preliminary Interpretation - Not an Order (10/13/2019 12:47 PM CUPOLA MECHANIC)Only the most recent of3 resultswithin the time period is included. Narrative Performed At Sada Foster MD 10/13 9:10 PM ECG ED Preliminary Interpretation - Not an Order Performed by: Levi Noel PA Authorized by: Sada Foster MD ECG reviewed by ED Physician in the abse nce of a final cleaner: yes Previous ECG: Previous ECG: Unavailable Interpretation: Interpretation: normal Rate: ECG rate: 70 ECG rate assessment: normal Rhythm: Rhythm: sinus rhythm Ectopy: Ectopy: none QRS: QRS intervals: Normal Conduction: Conduction: normal ST segments: ST segments: Normal T waves: T waves: normal CT Head Wo Contrast (07/13/2019 2:09 PM CDT) Specimen Narrative Performed At EXAMINATION: [facility]: headache COMPARISON: CT of the [...] No acute intracranial hemorrhage or mass effect. [facility]-[id number] Procedure Note Hm Interface, Radiology Results Incoming [...] No acute intracranial hemorrhage or mass effect. [facility]-[id number] Performing Organization Address [facility] Centercode Phone Number [facility] [address] [place] [address] Respiratory pathogen panel (07/13/2019 1:58 PM CDT) Pathologist [facility] Respiratory Negative for all pathogens tested: [facility] pathogen panel Negative for Adenovirus JAINISM Negative for Coronavirus HKU1 [facility] Negative for Coronavirus NL63 Negative for Coronavirus [...] Specimen Nares - Left Performing Organization Address [facility]/Zipcode Phone Number [facility] DEPARTMENT OF PATHOLOGY AND [address] [place], [place] [address] GENOMIC MEDICINE [address] [address] Influenza antigen test, reflex negative to RPP (07/13/2019 1:58 PM CDT) Pathologist [facility] Influenza antigen Negative for Influenza A/B antigen. [facility] Comment: [place] Specimen Information [facility] Specimen Source: Nares Specimen Site: Left Specimen Nares - Left Performing Organization Address City/[facility]/Zipcode Phone Number [facility] DEPARTMENT OF PATHOLOGY [address] [place] [address] [address] [place] [address] [facility] Group A strep, rapid antigen (07/13/2019 1:58 PM CDT) Group A strep, Negative for Group A Streptococcus antigen. [facility] rapid antigen Comment: SHAW result Specimen Information [facility] Specimen Source: Throat Specimen Site: Not otherwise specified Specimen Throat - Not otherwise specified Performing Organization Address [facility]/Zipcode Phone Number [facility] DEPARTMENT OF PATHOLOGY [address] [place] [address] [address] [place] [address] [facility] Strep screen culture (07/13/2019 1:58 PM CDT) Strep screen No beta hemolytic Streptococci isolated H HENRY LABOY culture isolate Comment: HOSPITAL Specimen Information Specimen Source: Throat Specimen Site: Not otherwise specified Specimen Throat - Not otherwise specified Performing Organization Address City/[facility] Centercode Phone Number [facility] DEPARTMENT OF PATHOLOGY AND [address] [place], [place] [address] [address] Manual differential (07/01/2019 5:30 AM CDT)Only the most recent of2 results within the time period is included. Manual differential PERFORMED [facility] Neutrophils 62.0 39.0 - 69.0 % [facility] Lymphocytes 12.0 (L) 25.0 - 45.0 % [facility] Monocytes 16.0 (H) 0.0 - 10.0 % [facility] Eosinophils 6.0 (H) 0.0 - 5.0 % [facility] Basophils 2.0 (H) 0.0 - 1.0 % [facility] Myelocytes 2 % [facility] Platelet slide review Maritza slt decr (A) [facility] Anisocytosis Moderate [facility] Polychromasia Moderate [facility] Spherocytes Occasional [facility] Ovalocytes Moderate [facility] Specimen Performing Organization Address City/State/Zipcode Phone Number [facility] DEPARTMENT OF PATHOLOGY [address] [facility] [address] AND GENOMIC MEDICINE [facility] [address] [facility] [address] HOSPITAL XR Lumbar Spine 2 Or 3 Vw (06/23/2019 3:27 PM CDT) Specimen Narrative Performed At EXAMINATION: XR LUMBAR SPINE 2 OR 3 VW [facility] CLINICAL HISTORY: Back pain risk factors [...] Vi sualized upper sacrum is grossly intact. [facility]-[id number] Procedure Note Hm Interface, Radiology Results Incoming [...] L4. Visualized upper sacrum is grossly intact. [facility]-[id number] Performing Organization Address City/State/Zipcode Phone Number [facility] [address] [place] [address] XR Abdomen 1 Vw (06/07/2019 12:07 PM [...] The visualized lung bases are clear . [facility] [id number] Procedure Note Interface, Radiology Results Incoming - [...] 5. The visualized lung bases are clear. [facility]-[id number] Performing Organization Address City/State/Zipcode Phone Number [facility] [address] [place] [address] CT Renal Stone Protocol (06/03/2019 2:45 PM CDT)Only the most recent of2 resultswithin the time period is included. Specimen Narrative Performed At EXAMINATION: [facility] H[facility]: pelvic pain TECHNIQUE: [...] . IMPRESSION: No evidence of acute process. [facility]-[id number] Procedure Note Interface, Radiology Results Incoming - [...] t aneurysm. Osteopenic and degenerative changes in t he bones. Pronounced right hip osteoarthritis. Intramedullary nail partly seen in the right femur. Stable moderate L1 compression deformity. IMPRESSION: No evidence of acute process. [facility]-[id number] Performing Organization Address City/[facility]/Zipcode Phone Number [facility] [address] [place] [address] Magnesium level (05/15/2019 5:20 AM CDT) Pathologist [facility] nature Magnesium 2.0 1.6 - 2.4 mg/dL [facility] Specimen Plasma specimen Performing Organization Address City/[facility]/Zipcode Phone Number [facility] DEPARTMENT OF PATHOLOGY [id number] [facility] [place], [place] [address] AND GENOMIC MEDICINE [facility] [place] [address] [facility] [place] [address] HOSPITAL after 04/29/2019 Additional Health Concerns Infection Noted Time Resolved Time CRE (C ) 11/22/2019 11:16 AM [employer] C.Difficile (E) 11/22/2019 11:21 AM [employer] Insurance Payer Benefit Plan / Group Subscriber ID Effective Phone Addre ss Type Dates MEDICARE MEDICARE PART A AND B xxxxxxxxxxx 2012-Pres H KAILEE FIGUEROA Medicare ent [facility] xxxxxxxxx 2020-Prese PPO COMMERCIAL nt HMO/POS/PPO Advance Directives For more information, please contact: [phone] Type Date Recorded Patient Rn Observation Explanati on Advance Directives, 07/13/2019 2:11 PM Living Will and Medical Power of Assembly Detailer Advance Directives, 06/26/2018 5:16 PM Living Will and Medical Power of Assembly Detailer Advance Directives, 07/23/2018 4:55 PM Living Will and Medical Power of Assembly Detailer Advance Directives, 11/22/2018 1:29 PM MEDICAL P OA-11/16/18 Living Will and Medical Power of Assembly Detailer Advance Directives, 02/17/2019 11:24 AM Living Will and Medical Power of Assembly Detailer Advance Directives, 06/03/2019 12:53 PM Living Will and Medical Power of Assembly Detailer Advance Directives, 06/11/2019 4:22 PM MEDICAL Living Will and Medical Power of Assembly Detailer Advance Directives, 06/11/2019 4:23 PM ADV Living Will and Medical Power of Assembly Detailer Advance Directives, 06/27/2019 1:33 PM ADVANCE D IRECTIVE Living Will and 06/21/2018 Medical Power of Assembly Detailer Advance Directives, 06/30/2019 1:23 PM Living Will and Medical Power of Assembly Detailer Advance Directives, 08/19/2019 1:18 PM Living Will and Medical Power of Assembly Detailer
[2020-04-29] MEDS ORDERED: NA CHLORIDE 0.9% 1,000 ML ONE (22:42)
[2020-04-29] MEDS ORDERED: CEFTRIAXONE/SWI 1gm 1 GM/10 ML SYR ONE (22:42)
--- NOTE | 2020-04-29 23:53 | EDPHYS ---
Physician Documentation [facility] Name: Tina Padron Age: 74 yrs Sex: Female : 1945 Arrival Date: 04/29/2020 Time: 17:53 Bed 7 Private MD: ED Physician Soto Adams HPI: 04/29 18:49 This 74 yrs old Female presents to ER via EMS with complaints of Pain All kdr Over, Dizziness. 18:49 The patient presents with dizziness, generalized weakness. Onset: The symptoms/episode kdr began/occurred gradually, 4 day(s) ago. Context: occurred at home, occurred while the patient was at rest. Modifying factors: The symptoms are alleviated by nothing, the symptoms are aggravated by movement of head, standing up, changing position. Associated signs and symptoms: Pertinent positives: abdominal pain, agitation, confusion, The patient is a poor historian and states that she is very lonely at home. That her leaves for work atr 7:00 AM and does not return until 5:00 PM. She states that he does not say good bye and she is very tearful.. Severity of symptoms: At their worst the symptoms were mild moderate just prior to arrival. Patient's baseline: Neuro: alert and fully oriented, Motor: no deficits. It is unknown whether or not the patient has had similar symptoms in the past. It is unknown whether or not the patient has recently seen a physician. Historical: - Allergies: 18:00 Compazine; sv 18:00 Meclizine; sv - PMHx: 18:00 "shattered shoulder"; Anxiety; chronic uti; Hyperlipidemia; Hypertension; sv Hypothyroidism; spinal fractures; - PSHx: 18:00 Cholecystectomy; Hysterectomy; l shoulder; back; sv - Immunization history:: Adult Immunizations. - Social history:: Smoking status: Patient denies any tobacco usage or history of. ROS: 18:49 Constitutional: Negative for fever, chills, and weight loss, Eyes: Negative for injury, kdr pain, redness, and discharge, ENT: Negative for injury, pain, and discharge, Neck: Negative for injury, pain, and swelling, Cardiovascular: Negative for chest pain, palpitations, and edema, Respiratory: Negative for shortness of breath, cough, wheezing, and pleuritic chest pain, Back: Negative for injury and pain, : Negative for injury, bleeding, discharge, and swelling - has history of chronic UTIs MS/Extremity: Negative for injury and deformity - she does state that her lower extremities are generally weak Skin: Negative for injury, rash, and discoloration. 18:49 Neuro: Positive for dizziness, weakness. Exam: 18:49 Constitutional: This is a well developed, well nourished patient who is awake, alert, kdr and in mild distress. Head/Face: Normocephalic, atraumatic. Eyes: Pupils equal round and reactive to light, extra-ocular motions intact. Lids and lashes normal. Conjunctiva and sclera are non-icteric and not injected. Cornea within normal limits. Periorbital areas with no swelling, redness, or edema. Neck: Trachea midline, no thyromegaly or masses palpated, and no cervical lymphadenopathy. Supple, full range of motion without nuchal rigidity, or vertebral point tenderness. No Meningismus. Chest/axilla: Normal chest wall appearance and motion. Nontender with no deformity. No lesions are appreciated. Cardiovascular: Regular rate and rhythm with a normal S1 and S2. No gallops, murmurs, or rubs. Normal PMI, no JVD. No pulse deficits. Respiratory: Lungs have equal breath sounds bilaterally, clear to auscultation and percussion. No rales, rhonchi or wheezes noted. No increased work of breathing, no retractions or nasal flaring. Back: No spinal tenderness. No costovertebral tenderness. Full range of motion. Skin: Warm, dry with normal turgor. Normal color with no rashes, no lesions, and no evidence of cellulitis. MS/ Extremity: Pulses equal, no cyanosis. Neurovascular intact. Full, normal range of motion. Neuro: Awake and alert, GCS 15, oriented to person, place, time, and situation. Cranial nerves II-XII grossly intact. Motor strength 5/5 in all extremities. Sensory grossly intact. Cerebellar exam normal. Normal gait. 18:49 Abdomen/GI: Inspection: obese Bowel sounds: active, diminished, in all quadrants, Palpation: soft, mild abdominal tenderness, in all quadrants. 18:49 Psych: Behavior/mood is cooperative, depressed, inappropriate for age, Affect is flat, Oriented to person, place, Patient has no thoughts/intents to harm self or others. Judgement / Insight is normal. Vital Signs: 17:45 BP 139 / 61; Pulse 61; Resp 14; Temp 98.6; Pulse Ox 97% ; sv 19:30 BP 131 / 75; Pulse 65; Resp 19; Temp 98; Pulse Ox 100% on R/A; rr5 20:30 BP 141 / 75; Pulse 69; Resp 17; Pulse Ox 98% on 2 lpm NC; rr5 21:30 BP 118 / 82; Pulse 56; Resp 15; Pulse Ox 99% on 2 lpm NC; rr5 22:49 BP 113 / 53; Pulse 60; Resp 17; Temp 98.2; Pulse Ox 99% ; rr5 23:20 BP 113 / 53; Pulse 64; Resp 19; Pulse Ox 98% on 2 lpm NC; rr5 04/30 00:00 BP 114 / 74; Pulse 90; Resp 16; Pulse Ox 100% on 2 lpm NC; rr5 MDM: 04/29 23:36 Differential diagnosis: cardiac arrhythmia, generalized weakness, hypovolemia, mh7 idiopathic dizziness, near-syncope, vertigo. Data reviewed: vital signs, nurses notes. Data interpreted: desk monitor: rate is 60 beats/min, rhythm is normal sinus rhythm, regular, Interpretation: normal rate, normal rhythm, Pulse oximetry: on room air is 99 %. Interpretation: normal. 23:50 Counseling: I had a detailed discussion with the patient and/or guardian regarding: the [facility] historical points, exam findings, and any diagnostic results supporting the discharge/admit diagnosis, lab results, radiology results, the need for outpatient follow up, to return to the emergency department if symptoms worsen or persist or if there are any questions or concerns that arise at home. Response to treatment: the patient's symptoms have markedly improved after treatment. 23:52 Patient medically screened. 7 04/30 03:45 ED course: NAD, VSS, no focal neurological deficits. Patient signed out to me at change mh7 of shift. Awake, alert, and oriented x 3. Discussed all test results and findings with the patient and answered all of her questions. She requests to be discharged from the ED. She will follow up with her doctor but agreed to return to the ED if worsening of symptoms or other concerns.. 04/29 18:42 Order name: Basic Metabolic Panel; Complete Time: 19:59 kdr 04/29 18:42 Order name: CBC with Diff; Complete Time: 19:59 kdr 04/29 18:42 Order name: LFT's; Complete Time: 19:59 kdr 04/29 18:42 Order name: Magnesium; Complete Time: 19:59 kdr 04/29 18:42 Order name: NT PRO-BNP; Complete Time: 19:59 kdr 04/29 18:42 Order name: PT-INR; Complete Time: 19:59 kdr 04/29 18:42 Order name: Troponin (emerg Dept Use Only); Complete Time: 19:59 kdr 04/29 18:42 Order name: XRAY Chest (1 view); Complete Time: 22:05 kdr 04/29 18:42 Order name: CT Head Brain wo Cont; Complete Time: 22:05 kdr 04/29 19:26 Order name: Urine Dipstick--Ancillary (enter results); Complete Time: 19:59 mw2 04/29 20:22 Order name: Abdomen ; Complete Time: 22:05 EDMS 04/29 18:42 Order name: EKG; Complete Time: 18:43 kdr 04/29 18:42 Order name: Cardiac monitoring; Complete Time: 18:44 kdr 04/29 18:42 Order name: EKG - Nurse/Tech; Complete Time: 19:06 kdr 04/29 18:42 Order name: IV Saline Lock; Complete Time: 18:44 kdr 04/29 18:42 Order name: Labs collected and sent; Complete Time: 19:06 kdr 04/29 18:42 Order name: O2 Per Protocol; Complete Time: 18:45 kdr 04/29 18:42 Order name: O2 Sat Monitoring; Complete Time: 18:45 kdr Administered Medications: 04/29 22:40 Drug: NS 0.9% 1000 ml Route: IV; Rate: 1 bolus; Site: left antecubital; rr5 22:42 Drug: Rocephin 1 grams Route: IV; Rate: calculated rate; Site: left antecubital; rr5 23:45 Drug: Potassium Chloride 40 mEq Route: PO; rr5 04/30 00:12 Follow up: Response: No adverse reaction rr5 Disposition: 04/29/20 23:52 Discharged to Home. Impression: Dizziness and giddiness, Urinary tract infection, site not specified. - Condition is Stable. - Discharge Instructions: Dizziness, Vertigo, Urinary Tract Infection, Adult, [id number]. - Prescriptions for Valium 5 mg Oral Tablet - take 1 tablet by ORAL route every 8 hours As needed; 10 tablet. Cipro 500 mg Oral Tablet - take 1 tablet by ORAL route every 12 hours for 7 days; 14 tablet. - Medication Reconciliation Form, Thank You Letter, Antibiotic Education, Prescription Opioid Use form. - Follow up: Private Physician; When: 1 - 2 days; Reason: Worsening of condition, Recheck today's complaints, Re-evaluation by your physician. - Problem is an ongoing problem. - Symptoms have improved. Signatures: Dispatcher [employer] [facility] Ximena Tidwell, RN RN sv Rashawn Wagner MD MD [facility] Qasim Galvin RN RN rr5 Soto Adams MD MD 7 Corrections: (The following items were deleted from the chart) 04/29 20:22 18:43 Abdomen Pelvis W Con+CT.RAD.BRZ ordered. [facility] 04/30 00:12 04/29 23:52 04/29/2020 23:52 Discharged to Home. Impression: Dizziness and giddiness; rr5 Urinary tract infection, site not specified. Condition is Stable. Forms are Medication Reconciliation Form, Thank You Letter, Antibiotic Education, Prescription Opioid Use. Follow up: Private Physician; When: 1 - 2 days; Reason: Worsening of condition, Recheck today's complaints, Re-evaluation by your physician. Problem is an ongoing problem. Symptoms have improved. mh7
--- NOTE | 2020-04-29 23:53 | ER ---
Nurse's Notes [facility] Name: Tina Padron Age: 74 yrs Sex: Female : 1945 Arrival Date: 04/29/2020 Time: 17:53 Bed 7 Private MD: Diagnosis: Dizziness and giddiness;Urinary tract infection, site not specified Presentation: 04/29 17:45 Chief complaint: EMS states: spouse called EMS stating that she was not getting any sv better from her discharge from 4 weeks ago here. Stated that she was still confused, unable to walk, and dizziness. 20G L hand, Zofran 4mg IVP. Pt reports that she just hurts all over and is A\\T\\O x4 at this time. Pt stated "I don't know why he would say I'm confused because I'm not. He leaves for work in the morning all by myself and I have no help." SBP 150 HR-53 BS-91 Temp-99.3. Coronavirus screen: Proceed with normal triage. Patient denies a cough. Patient denies shortness of breath or difficulty breathing. Patient denies measured and/or subjective temperature greater than 100.4F prior to today's visit. Patient denies travel on a cruise ship or to a country the [facility] currently lists as an affected area. Patient denies contact with known and/or suspected case of COVID-19. Prior COVID test Pt was tested here at out facility and was negative. Ebola Screen: No symptoms or risks identified at this time. Initial Sepsis Screen: Does the patient meet any 2 criteria? No. Patient's initial sepsis screen is negative. Does the patient have a suspected source of infection? No. Patient's initial sepsis screen is negative. Risk Assessment: Do you want to hurt yourself or someone else? Patient reports no desire to harm self or others. Onset of symptoms is unknown. 17:45 Method Of Arrival: EMS: [facility] sv 17:45 Acuity: TYLOR 3 sv Triage Assessment: 17:45 General: Appears in no apparent distress. uncomfortable, well developed, Behavior is sv calm, cooperative, appropriate for age. Pain: Complains of pain in "all over". Neuro: Level of Consciousness is awake, alert, obeys commands, Oriented to person, place, time, situation, Moves all extremities. Full function Speech is normal. Cardiovascular: Patient's skin is warm and dry. Pulses are palpable in right radial artery, right dorsalis pedis artery, left radial artery and left dorsalis pedis artery Edema is 1+ to left ankle and right ankle Rhythm is sinus bradycardia. Respiratory: Airway is patent Respiratory effort is even, unlabored, Respiratory pattern is regular, symmetrical. Derm: Skin is normal. Historical: - Allergies: 18:00 Compazine; sv 18:00 Meclizine; sv - PMHx: 18:00 "shattered shoulder"; Anxiety; chronic uti; Hyperlipidemia; Hypertension; sv Hypothyroidism; spinal fractures; - PSHx: 18:00 Cholecystectomy; Hysterectomy; l shoulder; back; sv - Immunization history:: Adult Immunizations. - Social history:: Smoking status: Patient denies any tobacco usage or history of. Screenin:45 Abuse screen: Denies threats or abuse. Denies injuries from another. Nutritional sv screening: No deficits noted. Tuberculosis screening: No symptoms or risk factors identified. Fall Risk None identified. Assessment: 18:50 Reassessment: Patient appears in no apparent distress at this time. No changes from sv previously documented assessment. Patient and/or family updated on plan of care and expected duration. Pain level reassessed. Patient is alert, oriented x 3, equal unlabored respirations, skin warm/dry/pink. 19:30 General: Appears in no apparent distress. uncomfortable, Behavior is anxious, crying, rr5 uncooperative, verbalized " i want go now and I want to speak to my ". Pain: Unable to use pain scale. Patient appears to be crying, withdrawn. Neuro: Level of Consciousness is awake, alert, obeys commands, Oriented to person, place, time. 19:30 Cardiovascular: Capillary refill < 3 seconds Patient's skin is warm and dry. rr5 Respiratory: Airway is patent Respiratory effort is even, unlabored, Respiratory pattern is regular, symmetrical. GI: No signs and/or symptoms were reported involving the gastrointestinal system. : No signs and/or symptoms were reported regarding the genitourinary system. EENT: No signs and/or symptoms were reported regarding the EENT system. Derm: Skin is intact, is healthy with good turgor, Skin temperature is warm. Musculoskeletal: Circulation, motion, and sensation intact. Capillary refill < 3 seconds. 20:30 Reassessment: Patient appears in no apparent distress at this time. No changes from rr5 previously documented assessment. assist on bedpan positive urine. shouting "I want go home now". 21:30 Reassessment: Patient appears in no apparent distress at this time. Patient is alert, rr5 oriented x 3, equal unlabored respirations, skin warm/dry/pink. awaiting for results. 22:20 Reassessment: Patient appears in no apparent distress at this time. No changes from rr5 previously documented assessment. 23:00 Reassessment: Patient appears in no apparent distress at this time. Patient is alert, rr5 oriented x 3, equal unlabored respirations, skin warm/dry/pink. reassess by ED provider for discharge after the IV fluid. 04/30 00:00 Reassessment: Patient appears in no apparent distress at this time. Patient is alert, rr5 oriented x 3, equal unlabored respirations, skin warm/dry/pink. discharge instruction given and explained without complaints made. Vital Signs: 04/29 17:45 BP 139 / 61; Pulse 61; Resp 14; Temp 98.6; Pulse Ox 97% ; sv 19:30 BP 131 / 75; Pulse 65; Resp 19; Temp 98; Pulse Ox 100% on R/A; rr5 20:30 BP 141 / 75; Pulse 69; Resp 17; Pulse Ox 98% on 2 lpm NC; rr5 21:30 BP 118 / 82; Pulse 56; Resp 15; Pulse Ox 99% on 2 lpm NC; rr5 22:49 BP 113 / 53; Pulse 60; Resp 17; Temp 98.2; Pulse Ox 99% ; rr5 23:20 BP 113 / 53; Pulse 64; Resp 19; Pulse Ox 98% on 2 lpm NC; rr5 04/30 00:00 BP 114 / 74; Pulse 90; Resp 16; Pulse Ox 100% on 2 lpm NC; rr5 ED Course: 04/29 17:45 Patient has correct armband on for positive identification. Bed in low position. Call sv light in reach. Side rails up X2. monitoring tech on. Pulse ox on. NIBP on. Head of bed elevated. 17:45 Maintain EMS IV. Dressing intact. Site clean \\T\\ dry. Gauge \\T\\ site: 20G L hand. sv 17:53 Patient arrived in ED. sv 17:53 Ximena Tidwell RN is Primary Nurse. sv 17:59 Triage completed. sv 18:00 Arm band placed on. sv 18:26 Awaiting ED provider evaluation. sv 18:31 Rashawn Wagner MD is Attending Physician. kdr 18:50 EKG done, by ED staff, reviewed by Rashawn Wagner MD. sv 19:09 Report given to Qasim MCGRATH and Manuel MCGRATH. sv 19:22 Attending Physician role handed off by Rashawn Wagner MD [facility] 19:22 Soto Adams MD is Attending Physician. mh7 19:56 XRAY Chest (1 view) In Process Unspecified. EDMS 20:23 CT Head Brain wo Cont In Process Unspecified. EDMS 20:24 Abdomen In Process Unspecified. EDMS 04/30 00:05 No provider procedures requiring assistance completed. IV discontinued, intact, rr5 bleeding controlled, No redness/swelling at site. Pressure dressing applied. Administered Medications: 04/29 22:40 Drug: NS 0.9% 1000 ml Route: IV; Rate: 1 bolus; Site: left antecubital; rr5 22:42 Drug: Rocephin 1 grams Route: IV; Rate: calculated rate; Site: left antecubital; rr5 23:45 Drug: Potassium Chloride 40 mEq Route: PO; rr5 04/30 00:12 Follow up: Response: No adverse reaction rr5 Intake: 00:05 1930- 0000H 8x urine assist by bedpan rr5 Output: 00:05 Other: 8; Total: 0ml. rr5 00:05 1930- 0000H 8x urine assist by bedpan rr5 Outcome: 04/29 23:52 Discharge ordered by . 7 04/30 00:10 Discharged to home ambulatory. rr5 Condition: stable Discharge instructions given to patient, Instructed on discharge instructions, follow up and referral plans. medication usage, Demonstrated understanding of instructions, follow-up care, medications, Prescriptions given X 3. 00:12 Patient left the ED. rr5 Signatures: Dispatcher [employer] [facility] Ximena Tidwell RN RN sv Rittger, Kevin, MD MD kdr Roque, Raymond, RN RN rr5 Soto Adams MD MD [facility] Corrections: (The following items were deleted from the chart) 04/29 18:01 17:45 Chief complaint: EMS states: spouse called EMS stating that she was not getting sv any better from her discharge from 4 weeks ago here. Stated that she was still confused, unable to walk, and dizziness. 20G L hand, Zofran 4mg IVP. Pt reports that she just hurts all over and is A\\T\\O x4 at this time. SBP 150 HR-53 BS-91 Temp-99.3 sv
[2020-04-30] MEDS ORDERED: POTASSIUM CL SA 10 MEQ TAB PO ONE (00:05)
[2020-04-30 01:11] VITALS: BP 113/53; TEMP 98.2; O2SAT 99
--- NOTE | 2020-04-30 20:59 | EKG ---
Test Date: 2020-04-29 Test Time: 18:50:58 Electronic Maintenance Supervisor: RIDGE MEASUREMENT RESULTS: Intervals: Rate: 56 MI: 176 QRSD: 76 QT: 478 QTc: 461 [place]: P: 60 MI: 176 QRS: 10 T: 20 INTERPRETIVE STATEMENTS: Sinus bradycardia Otherwise normal ECG Compared to ECG 04/03/2020 04:45:06 Sinus rhythm no longer present Myocardial infarct finding no longer present Electronically Signed On 04-30-20 20:57:05 CDT by Diaz Ramsay
== END 2020-04-30 00:12 | disposition home or self-care (01) ==
LOC: ER 17:42
DX: N39.0 Urinary tract infection, site not specified (principal); I10 Essential (primary) hypertension; Z88.1 Allergy status to other antibiotic agents
CPT/HCPCS: 93005; 85025; 80048; 36415; 83735; 85610; 80076; 81003; 84484; 83880; 70450; 74176; 71045; 96374; 99285; J0696; J7030

== ENCOUNTER 2020-05-27 12:19 | Observation (INO) | payer OTHER, BC ==
--- NOTE | 2020-05-27 13:54 | RAD REPORT ---
EXAM DESCRIPTION: CT - Head C Spine Cap Wo Con - 05/27/2020 1:28 pm TECHNIQUE: Computed axial tomography of the head and cervical spine was obtained. Coronal and sagitt al reconstruction was performed Computed axial tomography of the chest, abdomen and pelvis was obtained. Contrast was not requested. All CT scans are performed using dose optimization technique as appropriate and may include automated exposure control or mA/KV adjustment according to patient size. CLINICAL HISTORY: Head and neck injury with chest and abdominal pain status post fall COMPARISON: CT 2019 and 2017 FINDINGS: An intracranial bleed is not seen. The ventricles are normal in caliber. An extra-axial fluid collection is not noted. . Fluid within the sinuses/mastoids is not seen. A cervical fracture is not seen. No dislocation is noted. The evaluation of mediastinum, marjan, vessels, solid organs and bowel are limited secondary to the lac k of contrast administration. A mediastinal hematoma is not noted. A pleural effusion is not seen. A lung contusion is not present. Old traumatic changes involve the left clavicle and left humerus The liver,spleen, pancreas, adrenals,kidneys and bladder do not demonstrate a traumatic injury. Right renal cysts. Umbilical hernia. Right hip arthroplasty. Old compression fracture L1 vertebral cristofer dy IMPRESSION: 1. No acute intracranial abnormality is seen. 2. A cervical fracture is not visualized. If the patient continues have symptoms to suggest intracran ial/spinal cord pathology MRI be recommended 3. No acute traumatic abnormality involving the chest/abdomen/pelvis.
--- OUTSIDE RECORDS SUMMARY | 2020-05-27 13:56 | XMS REPORT | Clinical Summary ---
:1945 Author Organization [facility] Address [address] [place] [address] Care Team Providers Name Role Phone Vivek Solorzano MD Primary Care Provider Allergies Active Allergy [...] needed. levothyroxine Take 88 mcg by 0 D iscontinued (SYNTHROID, LEVOXYL) mouth daily. 019 100 mcg tablet oxyCODone-acetaminophe Take 1 tablet 0 12/02 Discontinued n (PERCOCET) 7.5-325 by mouth every 020 (Reorder) mg per tablet 6 (six) hours as needed. losartan (COZAAR) 50 Take 50 mg by 0 12/04 Discontinued MG tablet mouth daily. 020 (Stop T aking Hold for BP at Disch arge) less than 110 and Hr less than 60 hydroCHLOROthiazide Take 25 mg by 0 Discontinued (HYDRODIURIL) 12.5 MG mouth daily. 019 tablet methenam/sod Take by mouth 4 0 D iscontinued phos/mblue/hyoscy (four) times a 019 (Stop Taking (UROGESIC-BLUE ORAL) day. at Discharge) conjugated estrogens Insert 0.5 g 0 Discontinued (PREMARIN) 0.625 into the vagina 020 (Stop Taking mg/gram vaginal cream 3 (three) times at Discharge) a week. On Tue. Wed. tuesday gabapentin (NEURONTIN) Take 200 mg by 0 Discontinued 100 mg capsule mouth 3 (three) 019 times a day. meclizine (ANTIVERT) Take 25 mg by 0 10/13 Discontinued 25 mg tablet mouth 3 (three) 019 times a day as needed for dizziness. ergocalciferol Take 50,000 0 Dis continued (VITAMIN D2) 50,000 Units by mouth 019 unit capsule once a week. On mondays clonAZEPAM (KlonoPIN) Take 1 mg by 0 05/30 Discontinued 1 MG tablet mouth nightly 019 (Reo rder) as needed for anxiety (for sleep). solifenacin (VESICARE) Take 5 mg by 0 05/02 11/01 Discontinued 5 MG tablet mouth daily. 019 (Stop Taking at [facility]) docusate sodium Take 100 mg by 0 Discontinued (COLACE) 100 MG mouth daily as 019 capsule needed for constipation. fluconazole (DIFLUCAN) Take 1 tablet 1 tablet 0 05/31/2012/02 100 MG tablet (100 mg total) 19 019 by mouth daily for 1 day. levoFLOXacin Take 1 tablet 10 tablet 0 05/30/20 Exp ired (LEVAQUIN) 500 MG (500 mg total) 19 019 tablet by mouth daily for 10 days. clonAZEPAM (KlonoPIN) Take 1 tablet 30 tablet 0 05/30/2005/02 Discontinued 1 MG tablet (1 mg total) by 019 (R eorder) mouth nightly as needed for anxiety (for sleep) for up to 30 days. clonAZEPAM (KlonoPIN) Take 1 tablet 30 tablet 0 05/30/2012/30 Discontinued 1 MG tablet (1 mg total) by 19 019 mouth nightly as needed for anxiety (for sleep) for up to 30 days. fluconazole (DIFLUCAN) Take 1 tablet 10 tablet 0 06/10/2021/12 100 MG tablet (100 mg total) 019 by mouth daily for 10 days. lidocaine 3 % cream Apply topically 0 2 Discontinued as needed. 019 (Stop Warren ing at [facility]) cefdinir (OMNICEF) 300 Take 1 capsule 14 capsule 0 06/26/20 0 Discontinued MG capsule (300 mg total) 19 019 (Sto p Taking by mouth 2 at [facility]) (two) times a day for 7 days. clonAZEPAM (KlonoPIN) Take 1 tablet 30 tablet 0 07/03/20/ 1 MG tablet (1 mg total) by 19 019 mouth nightly as needed for anxiety (for sleep) for up to 30 days. levoFLOXacin Take 1 tablet 7 tablet 0 07/03/20 Exp ired (LEVAQUIN) 500 MG (500 mg total) 019 tablet by mouth daily for 7 days. amoxicillin-pot Take 1 tablet 14 tablet 0 07/13/20 clavulanate by mouth 2 019 (AUGMENTIN) 875-125 mg (two) times a per tablet day for 7 days. ondansetron ODT Take 1 tablet 10 tablet 0 07/13/20 (ZOFRAN ODT) 4 MG (4 mg total) by 019 disintegrating tablet mouth every 8 (eight) hours as needed for nausea or vomiting for up to 7 days. acetaminophen-codeine Take 1-2 15 tablet 0 08/19/20 Discontinued (TYLENOL WITH CODEINE tablets by 019 (Dose #3) 300-30 mg per mouth every 6 adjustment) tabletIndications: (six) hours as acute pain needed for severe pain for up to 15 doses .Acute Pain. ondansetron ODT Take 1 tablet 10 tablet 0 08/19/20 Discontinued (ZOFRAN ODT) 4 MG (4 mg total) by 019 disintegrating tablet mouth every 8 (eight) hours as needed for nausea for up to 10 doses. cephalexin (KEFLEX) Take 1 capsule 14 capsule 0 08/21/2008/01 500 MG capsule (500 mg total) 019 by mouth 2 (two) times a day for 7 days. nitrofurantoin Take 50 mg by 0 D iscontinued (MACRODANTIN) 50 MG mouth daily. 020 (Stop Taking capsule at [facility]) phenazopyridine (AZO Take 1 tablet 0 11/01 Discontinued URINARY PAIN RELIEF) by mouth every 020 (Stop Taking 97.5 mg tablet 3 (three) hours at Discharge) as needed. clonAZEPAM (KlonoPIN) Take 1 mg by 0 11/01 Discontinued 1 MG tablet mouth nightly 020 (Reo rder) as needed for anxiety or seizures. cranberry fruit Take 1 tablet 0 Discontinued extract (CRANBERRY by mouth daily. 020 (Stop Taking ORAL) at [facility]) lidocaine 3 % cream Apply 1 Dose 0 Discontinued topically as 020 (Stop T aking needed. at [facility]) ciprofloxacin (CIPRO) Take 1 tablet 10 tablet 0 10/19/20 12 5/2 500 MG tablet (500 mg total) 19 019 by mouth 2 (two) times a day for 5 days. vancomycin (FIRVANQ) Take 2.5 mL 140 mL 0 10/19/20 Discontinued 50 mg/mL recon soln (125 mg total) 19 020 (Reorder) oral solution by mouth every 6 (six) hours for 14 days. lidocaine (LIDODERM) 5 Place 1 patch 30 patch 0 11/02/1901/30 Discontinued % on the skin 20 020 (Stop Ta franklyn daily for [address] [facility]) days. Remove & Discard patch within 12 hours or as directed by NIFEdipine XL Take 1 tablet 30 tablet 0 11/02/19 Di scontinued (PROCARDIA XL) 30 MG (30 mg total) 20 020 24 hr tablet by mouth daily for 30 days. Lactobacillus Take 1 tablet 0 11/01/19 Di scontinued acidoph-L.bulgar by mouth 3 20 020 (FLORANEX) 1 million (three) times a cell tablet day for 30 days. fluconazole (DIFLUCAN) Take 1 tablet 0 11/02/1910/01 200 MG tablet (200 mg total) 20 020 by mouth daily for 9 days. ertapenem 1 g in Infuse 1 g into 0 11/02/19 sodium chloride 0.9 % a venous 20 020 MBP 50 mL IVPB catheter daily for 5 days. vancomycin (FIRVANQ) Take 2.5 mL 140 mL 0 11/01/19 50 mg/mL recon soln (125 mg total) 20 020 oral solution by mouth every 6 (six) hours for 1 day. vancomycin (VANCOCIN) Take 2.5 mL 0 11/03/19 125 mg/2.5 mL syringe (125 mg total) 20 020 by mouth 2 (two) times a day for 7 days. vancomycin (VANCOCIN) Take 2.5 mL 0 11/11/19 Discontinued 125 mg/2.5 mL syringe (125 mg total) 20 020 by mouth daily for 7 days. vancomycin (VANCOCIN) Take 2.5 mL 0 11/19/19 Discontinued 125 mg/2.5 mL syringe (125 mg total) 20 020 (Stop Taking by mouth every at [facility]) other day for 14 days. clonAZEPAM (KlonoPIN) Take 1 tablet 0 11/01/1907/02 1 MG tablet (1 mg total) by 20 020 mouth nightly as needed for anxiety or seizures for up to 7 days. oxyCODone-acetaminophe Take 1 tablet 21 tablet 0 11/01/1912/02 Discontinued n (PERCOCET) 7.5-325 by mouth every 20 020 (Reorder) mg per 8 (eight) hours tabletIndications: as needed for acute pain severe pain for up to 10 days .acute pain. Max Daily Amount: 3 tablets oxyCODone-acetaminophe Take 1 tablet 21 tablet 0 11/01/1910/01 n (PERCOCET) 7.5-325 by mouth every 20 020 mg per 8 (eight) hours tabletIndications: as needed for acute pain severe pain for up to 10 days .acute pain. Max Daily Amount: 3 tablets HYDROcodone-acetaminop Take 1 tablet 0 01/30 Discontinued hen (NORCO) 7.5-325 mg by mouth every 02 0 (Stop Taking per tabletIndications: 4 (four) hours at Discharge) acute pain as needed for moderate pain .acute pain. vancomycin (VANCOCIN) Take 2.5 mL 17.5 mL 0 11/22/19 125 mg/2.5 mL syringe (125 mg total) 20 020 by mouth daily for 7 days. sulfamethoxazole-trime Take 1 tablet 20 tablet 0 11/22/1901/30 Discontinued thoprim (BACTRIM DS) by mouth 2 20 020 (Stop Taking 800-160 mg per tablet (two) times a at Discharge) day for 10 days. nitrofurantoin Take 50 mg by 0 D iscontinued (MACRODANTIN) 50 MG mouth daily. Pt 020 (Stop Taking capsule stated last at Disch arge) dose is on 2/2 phenazopyridine (AZO Take 97.5 mg by 0 01/30 Discontinued URINARY PAIN RELIEF) mouth 3 (three) 020 (Stop Taking 97.5 mg tablet times a day as at Discharge) needed. Lactobacillus Take 1 tablet 90 tablet 0 12/04/19 Ex pired acidoph-L.bulgar by mouth 3 20 020 (FLORANEX) 1 million (three) times a cell tablet day for 30 days. NIFEdipine XL Take 1 tablet 30 tablet 0 12/04/19 Ex pired (PROCARDIA XL) 30 MG (30 mg total) 20 020 24 hr tablet by mouth daily for 30 days. conjugated estrogens Insert 0.5 g 30 g 0 12/04/19 (PREMARIN) 0.625 into the vagina 20 020 mg/gram vaginal cream daily for 30 days. sulfamethoxazole-trime Take 1 tablet 12 tablet 0 12/04/1908/01 thoprim (BACTRIM DS) by mouth every 20 020 800-160 mg per tablet 12 (twelve) hours for 12 doses. fluconazole (DIFLUCAN) Take 1 tablet 12 tablet 0 12/05/1917/12 200 MG tablet (200 mg total) 20 020 by mouth daily for 12 days. Active [...] Care Team Description 12/04/2019 Patient Outreach Quality Rick, [place], ALCIDES 12/04/2019 Patient Outreach Quality [place] Cabrera, ALCIDES 12/01/2019 - Hospital Encounter General Internal Leena Luevano [place] I due to Klebsiella species (Primary Dx); 12/04/2019 Medicine Stewart MD Acute renal failure, unspecified acute r enal failure type (HCC) Franca Pineda MD 11/19/2019 - Hospital Encounter General Internal Octavio Aranda D iarrhea of infectious origin (Primary Dx); 11/23/2019 Medicine Dehydration Franca Pineda MD Sadiq, Juanjo Mcwilliams MD 10/28/2019 - Hospital Encounter General Internal Elier Polk Re current UTI (Primary Dx); 11/01/2019 Medicine Juliette PIERRE MD Dehydration, moderate; Franca Pineda Acute renal ins ufficiency MD Evans 10/13/2019 - Hospital Encounter General Internal Sada Foster U rinary tract 10/19/2019 Medicine MD Kevin infection [...] Hospital Encounter General Internal Elier Polk Ac napaimute UTI (Primary Dx); 07/03/2019 Katerin Segovia III, MD Failure of outpatient treatment Franca Pineda MD 06/22/2019 - Hospital Encounter General Internal Chowdhury, Urina ry tract 06/26/2019 Medicine MD Robin infection with Franca Pineda hematuria, cornelio Krueger MD unspecified (Pr imary Dx) 06/06/2019 Anesthesia Event General Surgery Sanjuana Abarca MD Pasdar-Shirazi, Francisco, MD 06/06/2019 Surgery General Surgery Barbara Rosales Janette, Cystoscop y 06/05/2019 - Hospital Encounter General Internal Franca Pineda Urina ry tract infection without hematuria, site unspecified (Primary Dx); 06/09/2019 Medicine MD Evans Dysuria; Bladder pain 06/03/2019 Emergency Emergency Brandon Hernandez, Acute pelvic pain (Primary Dx); Medicine Acute cystitis without hematuria 06/03/2019 Travel 05/26/2019 - Hospital Encounter General Internal Zohra Chowdhury ry tract 05/30/2019 Katerin Kelly MD infection with Edwin, Franca hematuria, site MD Evans unspecified (Pr imary Dx) after 05/27/2019 Family History Medical History Relation Name Comments [...] Comments Blood Pressure 120/62 12/04/2019 3:41 PM [employer] ENGINEERING TECHNICIAN Pulse 84 12/04/2019 3:41 PM [employer]AL[employer]OL ENGINEERING TECHNICIAN Temperature 36.4 C (97.6 F) 12/04/2019 3:41 PM [employer] ENGINEERING TECHNICIAN Respiratory Rate 18 12/04/2019 3:41 PM [employer]OL ENGINEERING TECHNICIAN Oxygen Saturation 95% 12/04/2019 3:41 PM [employer]AL[employer]OL ENGINEERING TECHNICIAN Inhaled Oxygen Concentration - - Weight 70.1 kg (154 lb 8 oz) 12/04/2019 4:47 AM [employer] ENGINEERING TECHNICIAN Height 165.1 cm (5' 5") 11/19/2019 7:50 PM [employer] ENGINEERING TECHNICIAN Body Mass Index 25.71 11/19/2019 7:50 PM [employer]AL[employer]OL ENGINEERING TECHNICIAN Plan of Treatment Health Maintenance Due Date Last Done Comments BREAST CANCER SCREENING 1997 COLONOSCOPY SCREENING 1997 SHINGLES VACCINES (#1) 1997 65+ PNEUMOCOCCAL VACCINE (2 of 2 - PPSV23) 08/20/201208/07 INFLUENZA VACCINE 05/31/2020 08/05/2016, 2015 Implants Implanted Type Area Legislative Director Device Identifier Shelf Exp iration Model / Serial Date / Lot Screw Screw Procedures Procedure Name Priority Date/Time Associated Comments Diagnosis ESTIMATED GFR Routine 12/04/2019 7:50 Results fo r this AM [employer]ERING TECHNICIAN procedure are i n the results section. BASIC METABOLIC PANEL Routine 12/04/2019 7:50 Re sults for this AM [employer]INEERING TECHNICIAN procedure are i n the results section. XR CHEST 1 VW PORTABLE Routine 12/03/2019 7:20 R esults for this AM [employer] ENGINEERING TECHNICIAN procedure are i n the results section. ESTIMATED GFR Routine 12/03/2019 5:20 Results fo r this AM [employer] ENGINEERING TECHNICIAN procedure are i n the results section. BASIC METABOLIC PANEL Routine 12/03/2019 5:20 Re sults for this AM [employer] ENGINEERING TECHNICIAN procedure are i n the results section. URINE CULTURE Routine 12/02/2019 12:53 Results fo r this PM [employer]ERING TECHNICIAN procedure are i n the results section. URINALYSIS SCREEN AND Routine 12/02/2019 11:30 Re sults for this MICROSCOPY, WITH REFLEX AM [employer] ENGINEERING TECHNICIAN proc edure are in TO CULTURE the results section. AMIKACIN LEVEL, PEAK Routine 12/02/2019 10:15 Res ults for this AM [employer] ENGINEERING TECHNICIAN procedure are i n the results section. AMIKACIN LEVEL, TROUGH Routine 12/02/2019 8:50 R esults for this AM [employer] ENGINEERING TECHNICIAN procedure are i n the results section. US RENAL Routine 12/02/2019 5:59 Results for this AM [employer] ENGINEERING TECHNICIAN procedure are i n the results section. ESTIMATED GFR Routine 12/02/2019 5:10 Results fo r this AM [employer] ENGINEERING TECHNICIAN procedure are i n the results section. URIC ACID LEVEL Routine 12/02/2019 5:10 Results for this AM [employer] ENGINEERING TECHNICIAN procedure are i n the results section. CREATINE KINASE, TOTAL Routine 12/02/2019 5:10 R esults for this (CPK) AM [employer] ENGINEERING TECHNICIAN procedure are i n the results section. COMPREHENSIVE METABOLIC Routine 12/02/2019 5:10 Results for this PANEL AM [employer] ENGINEERING TECHNICIAN procedure are i n the results section. HC COMPLETE BLD COUNT Routine 12/02/2019 5:10 Re sults for this W/AUTO DIFF AM [employer] ENGINEERING TECHNICIAN procedure are i n the results section. CREATININE LEVEL, URINE, Routine 12/01/2019 7:30 Results for this RANDOM PM [employer] ENGINEERING TECHNICIAN procedure are i n the results section. PROTEIN, URINE, RANDOM Routine 12/01/2019 7:30 R esults for this PM [employer] ENGINEERING TECHNICIAN procedure are i n the results section. LACTIC ACID LEVEL, Timed 12/01/2019 7:30 Resul ts for this SEPSIS - NOW AND REPEAT AM [employer] ENGINEERING TECHNICIAN proc edure are in 2X EVERY 3 HOURS the results section. XR CHEST 1 VW PORTABLE STAT 12/01/2019 5:32 R esults for this AM [employer] ENGINEERING TECHNICIAN procedure are i n the results section. URINE CULTURE STAT 12/01/2019 5:27 Results fo r this AM [employer] ENGINEERING TECHNICIAN procedure are i n the results section. BLOOD CULTURE, AEROBIC & Routine 12/01/2019 5:05 Results for this ANAEROBIC AM [employer] ENGINEERING TECHNICIAN procedure are i n the results section. URINALYSIS SCREEN AND STAT 12/01/2019 4:38 Re sults for this MICROSCOPY, WITH REFLEX AM [employer] ENGINEERING TECHNICIAN proc edure are in TO CULTURE the results section. ESTIMATED GFR STAT 12/01/2019 4:35 Results fo r this AM [employer] ENGINEERING TECHNICIAN procedure are i n the results section. LACTIC ACID LEVEL, STAT 12/01/2019 4:35 Resul ts for this SEPSIS - NOW AND REPEAT AM [employer] ENGINEERING TECHNICIAN proc edure are in 2X EVERY 3 HOURS the results section. COMPREHENSIVE METABOLIC STAT 12/01/2019 4:35 Results for this PANEL AM [employer] ENGINEERING TECHNICIAN procedure are i n the results section. PARTIAL THROMBOPLASTIN STAT 12/01/2019 4:35 R esults for this TIME (PTT) AM [employer] ENGINEERING TECHNICIAN procedure are i n the results section. PROTHROMBIN TIME WITH STAT 12/01/2019 4:35 Re sults for this INR AM [employer] ENGINEERING TECHNICIAN procedure are i n the results section. HC COMPLETE BLD COUNT STAT 12/01/2019 4:35 Re sults for this W/AUTO DIFF AM [employer] ENGINEERING TECHNICIAN procedure are i n the results section. BLOOD CULTURE, AEROBIC & Routine 12/01/2019 4:35 Results for this ANAEROBIC AM [employer] ENGINEERING TECHNICIAN procedure are i n the results section. ESTIMATED GFR Routine 11/23/2019 3:25 Results fo r this AM [employer] ENGINEERING TECHNICIAN procedure are i n the results section. BASIC METABOLIC PANEL Routine 11/23/2019 3:25 Re sults for this AM [employer] ENGINEERING TECHNICIAN procedure are i n the results section. HC COMPLETE BLD COUNT Routine 11/23/2019 3:25 Re sults for this W/AUTO DIFF AM [employer] ENGINEERING TECHNICIAN procedure are i n the results section. GASTROINTESTINAL PANEL Routine 11/21/2019 8:46 R esults for this PM [employer] ENGINEERING TECHNICIAN procedure are i n the results section. TROPONIN Timed 11/21/2019 5:20 Results for this PM [employer] ENGINEERING TECHNICIAN procedure are i n the results section. XR CHEST 1 VW PORTABLE Routine 11/21/2019 12:34 R esults for this PM [employer] ENGINEERING TECHNICIAN procedure are i n the results section. ECG 12-LEAD Routine 11/21/2019 11:26 Results for this AM [employer] ENGINEERING TECHNICIAN procedure are i n the results section. TROPONIN Timed 11/21/2019 11:15 Results for this AM [employer]OL ENGINEERING TECHNICIAN procedure are i n the results section. ESTIMATED GFR Routine 11/21/2019 5:15 Results fo r this AM [employer] ENGINEERING TECHNICIAN procedure are i n the results section. COMPREHENSIVE METABOLIC Routine 11/21/2019 5:15 Results for this PANEL AM [employer] ENGINEERING TECHNICIAN procedure are i n the results section. HC COMPLETE BLD COUNT Routine 11/21/2019 5:15 Re sults for this W/AUTO DIFF AM [employer] ENGINEERING TECHNICIAN procedure are i n the results section. URINE CULTURE Routine 11/20/2019 3:48 Results fo r this PM [employer] ENGINEERING TECHNICIAN procedure are i n the results section. GRAM STAIN Routine 11/20/2019 3:48 Results for this PM [employer] ENGINEERING TECHNICIAN procedure are i n the results section. URINALYSIS SCREEN AND Routine 11/20/2019 3:21 Re sults for this MICROSCOPY, WITH REFLEX PM [employer] CONTROL ENGINEERING TECHNICIAN proc edure are in TO CULTURE the results section. GASTROINTESTINAL PANEL Routine 11/19/2019 6:25 R esults for this PM [employer] ENGINEERING TECHNICIAN procedure are i n the results section. ESTIMATED GFR STAT 11/19/2019 5:20 Results fo r this PM [employer] ENGINEERING TECHNICIAN procedure are i n the results section. LIPASE LEVEL STAT 11/19/2019 5:20 Results for this PM [employer] ENGINEERING TECHNICIAN procedure are i n the results section. COMPREHENSIVE METABOLIC STAT 11/19/2019 5:20 Results for this PANEL PM [employer] ENGINEERING TECHNICIAN procedure are i n the results section. HC COMPLETE BLD COUNT STAT 11/19/2019 5:20 Re sults for this W/AUTO DIFF PM [employer] ENGINEERING TECHNICIAN procedure are i n the results section. ESTIMATED GFR Routine 11/01/2019 4:25 Results fo r this AM [employer]AL[employer] CONTROL ENGINEERING TECHNICIAN procedure are i n the results section. HC COMPLETE BLD COUNT Routine 11/01/2019 4:25 Re sults for this W/AUTO DIFF AM [employer]AL[employer]OL ENGINEERING TECHNICIAN procedure are i n the results section. BASIC METABOLIC PANEL Routine 11/01/2019 4:25 Re sults for this AM [employer]AL[employer] ENGINEERING TECHNICIAN procedure are i n the results section. ESTIMATED GFR Routine 10/31/2019 5:00 Results fo r this AM [employer] ENGINEERING TECHNICIAN procedure are i n the results section. HC COMPLETE BLD COUNT Routine 10/31/2019 5:00 Re sults for this W/AUTO DIFF AM [employer] ENGINEERING TECHNICIAN procedure are i n the results section. BASIC METABOLIC PANEL Routine 10/31/2019 5:00 Re sults for this AM [employer]AL[employer] CONTR[employer] ENGINEERING TECHNICIAN procedure are i n the results section. ESTIMATED GFR Routine 10/30/2019 4:00 Results fo r this AM [employer]AL[employer] ENGINEERING TECHNICIAN procedure are i n the results section. HC COMPLETE BLD COUNT Routine 10/30/2019 4:00 Re sults for this W/AUTO DIFF AM [employer] ENGINEERING TECHNICIAN procedure are i n the results section. BASIC METABOLIC PANEL Routine 10/30/2019 4:00 Re sults for this AM [employer]AL[employer] ENGINEERING TECHNICIAN procedure are i n the results section. ESTIMATED GFR Routine 10/29/2019 3:10 Results fo r this AM [employer] ENGINEERING TECHNICIAN procedure are i n the results section. HC COMPLETE BLD COUNT Routine 10/29/2019 3:10 Re sults for this W/AUTO DIFF AM [employer] ENGINEERING TECHNICIAN procedure are i n the results section. BASIC METABOLIC PANEL Routine 10/29/2019 3:10 Re sults for this AM [employer] ENGINEERING TECHNICIAN procedure are i n the results section. CT LUMBAR SPINE WO Routine 10/28/2019 2:52 Resul ts for this CONTRAST PM [employer] ENGINEERING TECHNICIAN procedure are i n the results section. ECG 12-LEAD Routine 10/28/2019 9:27 Results for this AM [employer] ENGINEERING TECHNICIAN procedure are i n the results section. GRAM STAIN Routine 10/28/2019 7:31 Results for this AM [employer] ENGINEERING TECHNICIAN procedure are i n the results section. URINE CULTURE Routine 10/28/2019 7:31 Results fo r this AM [employer] ENGINEERING TECHNICIAN procedure are i n the results section. XR SHOULDER 2+ VW RIGHT STAT 10/28/2019 7:11 Results for this AM [employer] ENGINEERING TECHNICIAN procedure are i n the results section. ECG 12-LEAD STAT 10/28/2019 6:22 Results for this AM [employer] ENGINEERING TECHNICIAN procedure are i n the results section. XR PELVIS 1 OR 2 VW STAT 10/28/2019 6:18 Resu lts for this AM [employer] ENGINEERING TECHNICIAN procedure are i n the results section. SMEAR REVIEW STAT 10/28/2019 5:40 Results for this AM [employer] ENGINEERING TECHNICIAN procedure are i n the results section. ESTIMATED GFR STAT 10/28/2019 5:40 Results fo r this AM [employer] ENGINEERING TECHNICIAN procedure are i n the results section. COMPREHENSIVE METABOLIC STAT 10/28/2019 5:40 Results for this PANEL AM [employer] ENGINEERING TECHNICIAN procedure are i n the results section. HC COMPLETE BLD COUNT STAT 10/28/2019 5:40 Re sults for this W/AUTO DIFF AM [employer] ENGINEERING TECHNICIAN procedure are i n the results section. URINALYSIS SCREEN AND Routine 10/28/2019 5:30 Re sults for this MICROSCOPY, WITH REFLEX AM [employer]AL[employer] ENGINEERING TECHNICIAN proc edure are in TO CULTURE the results section. ESTIMATED GFR Routine 10/19/2019 6:30 Results fo r this AM [employer] ENGINEERING TECHNICIAN procedure are i n the results section. BASIC METABOLIC PANEL Routine 10/19/2019 6:30 Re sults for this AM [employer] ENGINEERING TECHNICIAN procedure are i n the results section. HC COMPLETE BLD COUNT Routine 10/19/2019 4:00 Re sults for this W/AUTO DIFF AM [employer] ENGINEERING TECHNICIAN procedure are i n the results section. SMEAR REVIEW Routine 10/18/2019 5:50 Results for this AM [employer] ENGINEERING TECHNICIAN procedure are i n the results section. ESTIMATED GFR Routine 10/18/2019 5:50 Results fo r this AM [employer]AL[employer] ENGINEERING TECHNICIAN procedure are i n the results section. HC COMPLETE BLD COUNT Routine 10/18/2019 5:50 Re sults for this W/AUTO DIFF AM [employer] ENGINEERING TECHNICIAN procedure are i n the results section. BASIC METABOLIC PANEL Routine 10/18/2019 5:50 Re sults for this AM [employer]AL[employer] ENGINEERING TECHNICIAN procedure are i n the results section. ESTIMATED GFR Routine 10/17/2019 5:45 Results fo r this AM [employer]AL[employer] ENGINEERING TECHNICIAN procedure are i n the results section. HC COMPLETE BLD COUNT Routine 10/17/2019 5:45 Re sults for this W/AUTO DIFF AM [employer] ENGINEERING TECHNICIAN procedure are i n the results section. BASIC METABOLIC PANEL Routine 10/17/2019 5:45 Re sults for this AM [employer] ENGINEERING TECHNICIAN procedure are i n the results section. ESTIMATED GFR Routine 10/16/2019 10:09 Results fo r this AM [employer] ENGINEERING TECHNICIAN procedure are i n the results section. HC COMPLETE BLD COUNT Routine 10/16/2019 10:09 Re sults for this W/AUTO DIFF AM QUALITY CONTROL ENGINEERING TECHNICIAN procedure are i n the results section. BASIC METABOLIC PANEL Routine 10/16/2019 10:09 Re sults for this AM QUALITY CONTROL ENGINEERING TECHNICIAN procedure are i n the results section. CLOSTRIDIUM DIFFICILE Routine 10/16/2019 4:20 Re sults for this TOXIN AM QUALITY CONTROL ENGINEERING TECHNICIAN procedure are i n the results section. TROPONIN Timed 10/14/2019 6:20 Results for this AM QUALITY CONTROL ENGINEERING TECHNICIAN procedure are i n the results section. LACTIC ACID LEVEL, Timed 10/14/2019 6:20 Resul ts for this SEPSIS - NOW AND REPEAT AM QUALITY CONTROL ENGINEERING TECHNICIAN proc edure are in 2X EVERY 3 HOURS the results section. TROPONIN Timed 10/13/2019 10:40 Results for this PM QUALITY CONTROL ENGINEERING TECHNICIAN procedure are i n the results section. LACTIC ACID LEVEL, Timed 10/13/2019 10:40 Resul ts for this SEPSIS - NOW AND REPEAT PM QUALITY CONTROL ENGINEERING TECHNICIAN proc edure are in 2X EVERY [address] ABDOMEN PELVIS W STAT 10/13/2019 3:18 Resu lts for this CONTRAST PM QUALITY CONTROL ENGINEERING TECHNICIAN procedure are i n the results section. GRAM STAIN Routine 10/13/2019 2:04 Results for this PM QUALITY CONTROL ENGINEERING TECHNICIAN procedure are i n the results section. URINE CULTURE Routine 10/13/2019 2:04 Results fo r this PM QUALITY CONTROL ENGINEERING TECHNICIAN procedure are i n the results section. BLOOD CULTURE, AEROBIC & Routine 10/13/2019 1:44 Results for this ANAEROBIC PM QUALITY CONTROL ENGINEERING TECHNICIAN procedure are i n the results section. ESTIMATED GFR STAT 10/13/2019 1:40 Results fo r this PM QUALITY CONTROL ENGINEERING TECHNICIAN procedure are i n the results section. TROPONIN Timed 10/13/2019 1:40 Results for this PM QUALITY CONTROL ENGINEERING TECHNICIAN procedure are i n the results section. COMPREHENSIVE METABOLIC STAT 10/13/2019 1:40 Results for this PANEL PM QUALITY CONTROL ENGINEERING TECHNICIAN procedure are i n the results section. HC COMPLETE BLD COUNT STAT 10/13/2019 1:40 Re sults for this W/AUTO DIFF PM QUALITY CONTROL ENGINEERING TECHNICIAN procedure are i n the results section. LACTIC ACID LEVEL, STAT 10/13/2019 1:40 Resul ts for this SEPSIS - NOW AND REPEAT PM QUALITY CONTROL ENGINEERING TECHNICIAN proc edure are in 2X EVERY 3 HOURS the results section. BLOOD CULTURE, AEROBIC & Routine 10/13/2019 1:40 Results for this ANAEROBIC PM QUALITY CONTROL ENGINEERING TECHNICIAN procedure are i n the results section. XR CHEST 1 VW PORTABLE STAT 10/13/2019 1:37 R esults for this PM QUALITY CONTROL ENGINEERING TECHNICIAN procedure are i n the results section. ECG 12-LEAD STAT 10/13/2019 1:27 Results for this PM QUALITY CONTROL ENGINEERING TECHNICIAN procedure are i n the results section. URINALYSIS SCREEN AND Routine 10/13/2019 1:02 Re sults for this MICROSCOPY, WITH REFLEX PM QUALITY CONTROL ENGINEERING TECHNICIAN proc edure are in TO CULTURE the results section. ECG ED PRELIMINARY Routine 10/13/2019 12:47 Resul ts for this INTERPRETATION PM QUALITY CONTROL ENGINEERING TECHNICIAN procedure are in the results section. URINE [...] are i n the results section. after 05/27/2019 Results Estimated GFR (12/04/2019 7:50 AM QUALITY CONTROL ENGINEERING TECHNICIAN)Only the most recent of31 resultswithin the time period is included. Estimated GFR 72 mL/min/1.73 TALAVERA VOODOO Comment: m2 [place] Catergory Units Interpretation [...] 2014. Specimen Plasma specimen Performing Organization Address [facility] Hospital[facility] Phone Number [facility] DEPARTMENT OF PATHOLOGY [id number] [place] [address] X [phone] AND [facility] [id number] [place] [phone] [place] [address] Basic metabolic panel (12/04/2019 7:50 AM QUALITY CONTROL ENGINEERING TECHNICIAN)Only the most recent of17 results within the time period is included. [facility] Sodium 139 135 - 148 mEq/L [facility] Potassium 4.2 3.5 - 5.0 mEq/L [facility] Chloride 108 98 - 112 mEq/L [facility] CO2 21 (L) 24 - 31 mEq/L [facility] Anion gap 10@ANIO 7 - 15 mEq/L [facility] BUN 14 8 - 23 mg/dL [facility] Creatinine 0.81 0.50 - 0.90 mg/dL [facility] Glucose 102 (H) 65 - 99 mg/dL [facility] Calcium 9.0 8.8 - 10.2 mg/dL [facility] Specimen Plasma specimen Performing Organization Address [facility] Hospitalcode Phone Number [facility] DEPARTMENT OF PATHOLOGY [address] [place] [address] X [phone] AND [facility] [id number] [place] [address] X [phone] [facility] XR Chest 1 Vw Portable (12/03/2019 7:20 AM QUALITY CONTROL ENGINEERING TECHNICIAN)Only the most recent of5 results within the time period is included. Specimen Narrative Performed At EXAMINATION: XR CHEST 1 VW PORTABLE [facility] CLINICAL HISTORY: cough COMPARISON: To a previous examination from 12/01/2019 IMPRESSION: The heart is normal in appearance. The lungs are clear . Presumed postsurgical changes are noted involving the distal left clavicle. [facility]-[id number] Procedure Note Interface, Radiology Results Incoming - 12/03/2019 7:29 AM QUALITY CONTROL ENGINEERING TECHNICIAN EXAMINATION: XR CHEST 1 VW PORTABLE CLINICAL HISTORY: cough COMPARISON: To a previous examination f rom 12/01/2019 IMPRESSION: The heart is normal in appearance. The l ungs are clear. Presumed postsurgical changes are noted involving the distal left clavicle. [facility]-[id number] Performing Organization Address City/[facility]/Zipcode Phone Number [facility] [address] [place] [phone] Urine culture (12/02/2019 12:53 PM QUALITY CONTROL ENGINEERING TECHNICIAN)Only the most recent of13 resultswithin the time period is included. Urine culture Mixed shilpi <=10-3 col/cc [facility] IST isolate Comment: HOSPITAL Specimen Information Specimen Source: Urine Specimen Site: Clean catch Specimen Urine Performing Organization Address [facility] Phone Number [facility] DEPARTMENT OF PATHOLOGY AND [address] [place] [phone] GENOMIC MEDICINE [address] [address] Urinalysis screen and microscopy, with reflex to culture (12/02/2019 11:30 AM QUALITY CONTROL ENGINEERING TECHNICIAN)Only the most recent of13 resultswithin the time period is included. Specimen site Clean catch [facility] Color, UA Yellow [facility] Appearance, UA Turbid [facility] Specific gravity, UA 1.013 1.001 - 1.030 [facility] pH, UA 5.0 5.0 - 9.0 [facility] Protein, UA 2+ (A) Negative [facility] Glucose, UA Negative Negative [facility] Ketones, UA Negative Negative [facility] Bilirubin, UA Negative Negative [facility] Blood, UA Negative Negative [facility] Nitrite, UA Positive (A) Negative [facility] Urobilinogen, UA 2.0 (A) <2.0 E.U./dL [facility] Leukocyte esterase, Moderate (A) Negative [facility] Epithelial cells, UA 10 /HPF [facility] Round epithelial 1 0 - 5 /HPF [facility] cells, [facility] WBC, UA >200 (H) 0 - 4 /HPF [facility] RBC, UA 17 (H) 0 - 5 /HPF [facility] Bacteria, UA Few None seen [facility] WBC clumps, UA Many (A) [facility] Yeast, UA Few (A) [facility] Yeast with Few (A) [facility] pseudohyphae, UA [facility] Specimen Urine Performing Organization Address City/[facility] Phone Number [facility] DEPARTMENT OF PATHOLOGY [address] [facility] X [address] AND [facility] MEDICINE [facility] [address] [facility] X [address] HOSPITAL Amikacin level, peak (12/02/2019 10:15 AM QUALITY CONTROL ENGINEERING TECHNICIAN) Pathologist Sig nature Amikacin, peak 30.6 (H) 20.0 - 25.0 ug/mL [facility] Specimen Plasma specimen Performing Organization Address [facility] Phone Number [facility] DEPARTMENT OF PATHOLOGY AND [address] [place] [address] [phone] [address] Amikacin level, trough (12/02/2019 8:50 AM QUALITY CONTROL ENGINEERING TECHNICIAN) Pathologist Sig [facility] Amikacin, trough 2.4 (L) 5.0 - 10.0 ug/mL [facility] Specimen Plasma specimen Performing Organization Address [facility] Phone Number [facility] DEPARTMENT OF PATHOLOGY AND [address] [place] [address] [phone] [address] [place] Renal (12/02/2019 5:59 AM QUALITY CONTROL ENGINEERING TECHNICIAN) Specimen Narrative Performed At EXAMINATION: US RENAL [facility] CLINICAL HISTORY: Renal failure acut e (kidney injury) COMPARISON: 10/13/2019 CT TECHNIQUE: Ultrasound evaluation of e kidneys and bladder. IMPRESSION: 1.Right kidney [...] stones or hydronephrosis. 5.The bladder is unremarkable. [facility]-[id number] Procedure Note Hm Interface, Radiology Results Incoming - 12/02/2019 7:19 AM QUALITY CONTROL ENGINEERING TECHNICIAN EXAMINATION: US RENAL CLINICAL HISTORY: Renal failure [...] stones or hydronephrosis. 5.The bladder is unremarkable. [facility]-[id number] Performing Organization Address City/State/Zipcode Phone Number [facility] [address] [place] [address] CBC with platelet and differential (12/02/2019 5:10 AM QUALITY CONTROL ENGINEERING TECHNICIAN)Only the most recent of29 resultswithin the time period is included. WBC 6.2 4.5 - 11.0 k/uL [facility] RBC 2.97 (L) 4.20 - 5.50 [facility] m/uL [facility] HGB 9.1 (L) 12.0 - 16.0 [facility] g/dL [facility] HCT 29.6 (L) 37.0 - 47.0 % [facility] MCV 99.7 82.0 - 100.0 fL [facility] MCH 30.6 27.0 - 34.0 pg [facility] MCHC 30.7 (L) 31.0 - 37.0 [facility] g/dL [facility] RDW - SD 48.4 37.0 - 55.0 fL [facility] MPV 9.8 6.9 - 11.0 fL [facility] Platelet count 195 150 - 400 K/uL [facility] Nucleated RBC 0.00 /100 WBC [facility] Neutrophils 76.5 (H) 39.0 - 69.0 % [facility] Lymphocytes 7.9 (L) 25.0 - 45.0 % [facility] Monocytes 13.9 (H) 0.0 - 10.0 % [facility] Eosinophils 1.1 0.0 - 5.0 % [facility] Basophils 0.3 0.0 - 1.0 % [facility] Immature granulocytes 0.3 0.0 - 1.0 % [facility] Specimen Blood Performing Organization Address [facility] Phone Number [facility] DEPARTMENT OF PATHOLOGY [address] [place] [address] Uric acid level (12/02/2019 5:10 AM QUALITY CONTROL ENGINEERING TECHNICIAN) Pathologist Sig [facility] Uric acid 6.0 (H) 2.4 - 5.7 mg/dL [facility] Specimen Plasma specimen Performing Organization Address [facility] Phone Number [facility] DEPARTMENT OF PATHOLOGY [address] [place] [address] Creatine kinase, total (CPK) (12/02/2019 5:10 AM QUALITY CONTROL ENGINEERING TECHNICIAN)Only the most recent of2 resultswithin the time period is included. Pathologist [facility] Creatine kinase 27 26 - 192 U/L [facility] Specimen Plasma specimen Performing Organization Address [facility] Phone Number [facility] DEPARTMENT OF PATHOLOGY [address] [place] [address] Comprehensive metabolic panel (12/02/2019 5:10 AM QUALITY CONTROL ENGINEERING TECHNICIAN)Only the most recent of14 resultswithin the time period is included. Pathologist Sig [facility] Sodium 140 135 - 148 mEq/L [facility] Potassium 4.5 3.5 - 5.0 mEq/L [facility] Chloride 110 98 - 112 mEq/L [facility] CO2 21 (L) 24 - 31 mEq/L [facility] Anion gap 9@ANIO 7 - 15 mEq/L [facility] BUN 12 8 - 23 mg/dL [facility] Creatinine 1.03 (H) 0.50 - 0.90 [facility] mg/dL [facility] Glucose 97 65 - 99 mg/dL [facility] Calcium 8.9 8.8 - 10.2 [facility] mg/dL [facility] Protein 5.2 (L) 6.3 - 8.3 g/dL [facility] Albumin 3.0 (L) 3.5 - 5.0 g/dL [facility] A/G ratio 1.4 0.7 - 3.8 [facility] Alkaline phosphatase 100 35 - 104 U/L [facility] AST 13 10 - 35 U/L [facility] ALT 7 5 - 50 U/L [facility] Total bilirubin 0.3 0.2 - 1.2 mg/dL [facility] Specimen Plasma specimen Performing Organization Address City/[facility] Phone Number [facility] DEPARTMENT OF PATHOLOGY [address] [place] [address] X [phone] AND GENOMIC MEDICINE [address] X [address] [facility] Protein, urine, random (12/01/2019 7:30 PM QUALITY CONTROL ENGINEERING TECHNICIAN) Pathologist Sig nature Total volume, urine 30 mL [facility] Urine protein 102 mg/dL [facility] Urine protein excretion 31 mg/vol [facility] Specimen Urine Performing Organization Address [facility] Phone Number [facility] DEPARTMENT OF PATHOLOGY [address] [place] [address] X [phone] AND GENOMIC MEDICINE [address] X [address] [facility] Creatinine level, urine, random (12/01/2019 7:30 PM QUALITY CONTROL ENGINEERING TECHNICIAN) Pathologist Sig nature Total volume, urine 30 mL [facility] Urine creatinine 24 mg/dL [facility] Urine creatinine excretion 7 mg/vol [facility] Specimen Urine Performing Organization Address City/[facility] Phone Number [facility] DEPARTMENT OF PATHOLOGY [address] [place] [address] X [phone] AND GENOMIC MEDICINE [address] [place] [address] [facility] Lactic acid level, SEPSIS - Now and repeat 2x every 3 hours (12/01/2019 7:30 AM QUALITY CONTROL ENGINEERING TECHNICIAN)Only the most recent of11 resultswithin the time period is included. Pathologist Sig nature Lactic acid 1.9 0.5 - 2.2 mmol/L [facility] Specimen Plasma specimen Performing Organization Address [facility] Phone Number [facility] DEPARTMENT OF PATHOLOGY [address] [facility] [address] AND [facility] [address] [place] [phone] [place] [address] Blood culture, aerobic & anaerobic (12/01/2019 5:05 AM QUALITY CONTROL ENGINEERING TECHNICIAN)Only the most recent of10 resultswithin the time period is included. Pathologist [facility] Blood culture No growth after 5 days of incubation. MARYLOU LABOY isolate Comment: HOSPITAL Specimen Information Specimen Source: Blood Specimen Site: Wrist, right Specimen Blood - Wrist, right Performing Organization Address [facility] Phone Number [facility] DEPARTMENT OF PATHOLOGY AND [address] [place], [place] [phone] [facility] [address] [place] [address] Partial thromboplastin time, activated (12/01/2019 4:35 AM QUALITY CONTROL ENGINEERING TECHNICIAN) PTT 25.3 23.0 - 36.0 [facility] Comment: [facility] PTT therapeutic range for unfractionated heparin is HOSPITAL 61.0-112.0 seconds which corresponds to Anti-Xa 0.3-0.7 U/ml. Specimen Blood Performing Organization Address [facility] Phone Number [facility] DEPARTMENT OF PATHOLOGY [address] [facility] X [address] AND [facility] [id number] [place] [address] X [address] HOSPITAL Prothrombin time with INR (12/01/2019 4:35 AM QUALITY CONTROL ENGINEERING TECHNICIAN) Pathologist [facility] Prothrombin time 13.7 11.5 - 14.5 [facility] INR 1.1 [place] Comment: NARDA LOZANO [facility] International Normalized Ratio (INR) is a therapeu [facility] monitoring tool for patients who are stable on oral anticoagulant therapy. An INR of 2.0-3.0 is suggested for deep vein thrombosis/pulmonary embolism. Specimen Blood Performing Organization Address City/State/Zipcode Phone Number [facility] DEPARTMENT OF PATHOLOGY [address] [facility] [address] AND [facility] [address] [facility] X [address] [facility] Gastrointestinal panel (11/21/2019 8:46 PM QUALITY CONTROL ENGINEERING TECHNICIAN)Only the most recent of2 results within the time period is included. [facility] Gastrointestinal panel Negative for all pathogens tested: [place] Negative for Salmonella VOODOO Negative for Campylobacter [facility] Negative for Diarrheagenic E coli/Shigella Negative [...] Nonpreserved Performing Organization Address City/State/Zipcode Phone Number [facility] DEPARTMENT OF PATHOLOGY AND [address] [place], [place] [phone] [facility] [address] [place] [address] Troponin (11/21/2019 5:20 PM QUALITY CONTROL ENGINEERING TECHNICIAN)Only the most recent of8 resultswithin the time period is included. [facility] Troponin <0.006 0.000 - 0.040 [facility] Comment: ng/mL [facility] In patients suspected of having a [...] ng/mL Specimen Plasma specimen Performing Organization Address City/[facility] Phone Number [facility] DEPARTMENT OF PATHOLOGY [address] [facility] [place] [address] AND GENOMIC MEDICINE [facility] [address] [address] [facility] [place] [address] HOSPITAL ECG 12 lead (11/21/2019 11:26 AM QUALITY CONTROL ENGINEERING TECHNICIAN)Only the most recent of7 resultswithin the time period is included. Pathologist Sig nature Ventricular rate 74 [facility] Atrial rate 74 [facility] CO interval 178 [facility] QRSD interval 70 [...] is no t available. Performing Organization Address City/[facility] Phone Number [facility] MUSE [address] [place] [address] Gram stain (11/20/2019 3:48 PM QUALITY CONTROL ENGINEERING TECHNICIAN)Only the most recent of11 resultswithin the time period is included. Gram stain result Occasional WBC's [facility] Moderate Gram negative rods HOSPITAL Comment: Specimen Information Specimen Source: Urine Specimen Site: Catheterized Specimen Urine - Catheterized Performing Organization Address City/[facility]/Zipcode Phone Number [facility] DEPARTMENT OF PATHOLOGY AND [address] [place], [place] [address] [facility] [address] [place] [address] Lipase level (11/19/2019 5:20 PM QUALITY CONTROL ENGINEERING TECHNICIAN)Only the most recent of4 resultswithin the time period is included. Pathologist Sig nature Lipase 7 (A) 13 - 60 U/L [facility] Specimen Plasma specimen Performing Organization Address City/[facility]/Zipcode Phone Number [facility] DEPARTMENT OF PATHOLOGY [address] [facility] X [address] AND [facility] [address] [facility] [place] [address] Lumbar Spine Wo Contrast (10/28/2019 2:52 PM QUALITY CONTROL ENGINEERING TECHNICIAN) Specimen Narrative Performed At EXAMINATION: CT LUMBAR [...] pro trusion. Bilateral facet arthropathy. There is petw-gq-vqcvyaap neural fo raminal stenosis. The central canal [...] scoliosis of lumbar spine resulting in mi sr-ow-yvpgcufy neural foraminal stenosis as described a fran [id number] Procedure Note Hm Interface, Radiology Results Incoming - 10/28/2019 3:05 PM QUALITY CONTROL ENGINEERING TECHNICIAN EXAMINATION: CT LUMBAR SPINE WO CONTRAST CLINICAL [...] disc protrusion. Bilateral facet arthropathy. There is kmcd-dz-eobzjiau neural foraminal stenosis. The central canal is [...] dextroconvex scoliosis of lumbar spine resulting in zngw-ah-rmvvwsjm neural foraminal stenosis as described above [id number] Performing Organization Address [facility] Phone Number [facility] [address] [place] [address] XR Shoulder 2+ Vw Right (10/28/2019 7:11 AM QUALITY CONTROL ENGINEERING TECHNICIAN) Specimen Narrative Performed At EXAMINATION: XR SHOULDER 2 VW RIGHT [facility] CLINICAL HISTORY: shoulder pain COMPARISON: Most recent [facility] prior. IMPRESSION: There is no acute fracture. Joint spaces are preserved . Soft tissues are unremarkable. [facility]-[id number] Procedure Note Hm Interface, Radiology Results Incoming - 10/28/2019 8:14 AM QUALITY CONTROL ENGINEERING TECHNICIAN EXAMINATION: XR SHOULDER 2 VW RIGHT CLINICAL HISTORY: shoulder pain COMPARISON: Most recent [facility] prior. IMPRESSION: There is no acute fracture. Joint spaces are preserved. Soft tissues are unremarkable. [facility]-[id number] Performing Organization Address [facility] Phone Number [facility] [address] [place] [address] XR Pelvis 1 Or 2 Vw (10/28/2019 6:18 AM QUALITY CONTROL ENGINEERING TECHNICIAN) Specimen Narrative Performed At EXAMINATION: XR PELVIS 1 OR 2 VW [facility] CLINICAL HISTORY: fall COMPARISON: Most recent [facility] prior. IMPRESSION: Post-ORIF changes involving the proximal right femur, without evidence of loosening or hardware failure. No acute fracture. O ld right femoral neck fracture is present. There are surgical raphael i n the right pelvis. There is moderate degenerative c hange at the right hip. [facility]-[id number] Procedure Note Hm Interface, Radiology Results Incoming - 10/28/2019 8:12 AM QUALITY CONTROL ENGINEERING TECHNICIAN EXAMINATION: XR PELVIS 1 OR 2 VW CLINICAL HISTORY: fall COMPARISON: Most recent [facility] prior. IMPRESSION: Post-ORIF changes involving the proximal right femur, without evidence of loosening or hardware failure. No acute fracture. Old right femoral neck fracture is present. There are surgical raphael in the right pelvis. There is moderate degenerative change at the right hip. [id number] Performing Organization Address City/[facility]/Zipcode Phone Number [facility] [address] [place] [address] Smear review (10/28/2019 5:40 AM QUALITY CONTROL ENGINEERING TECHNICIAN)Only the most recent of2 resultswithin the time period is included. Platelet slide review Maritza slt decr (A) [facility] Anisocytosis Moderate [facility] Ovalocytes Moderate [facility] Specimen Performing Organization Address City/[facility]/Zipcode Phone Number [facility] DEPARTMENT OF PATHOLOGY [address] [facility] [address] AND [facility] [address] [facility] [place] [address] HOSPITAL C difficile toxin (10/16/2019 4:20 AM QUALITY CONTROL ENGINEERING TECHNICIAN) Clostridium Positive for C. difficile toxin (A) [place] difficile toxin Comment: HOSPITAL Specimen Information Specimen Source: Stool Specimen Site: Nonpreserved Specimen Stool - Nonpreserved Performing Organization Address [facility] Phone Number [facility] DEPARTMENT OF PATHOLOGY AND [address] [place], [place] [phone] [facility] [address] [place] [address] CT Abdomen Pelvis W Contrast (10/13/2019 3:18 PM QUALITY CONTROL ENGINEERING TECHNICIAN) Specimen Narrative Performed At EXAMINATION: CT ABDOMEN [...] findings in the abdomen or pe lvis. [id number] Procedure Note Hm Interface, Radiology Results Incoming - 10/13/2019 3:34 PM QUALITY CONTROL ENGINEERING TECHNICIAN EXAMINATION: CT ABDOMEN PELVIS W CONTRAST CLINICAL [...] findings in the abdomen or pe lvis. [facility]-[id number] Performing Organization Address City/State/Zipcode Phone Number [facility] [address] [place] [address] ECG ED Preliminary Interpretation - Not an Order (10/13/2019 12:47 PM QUALITY CONTROL ENGINEERING TECHNICIAN)Only the most recent of3 resultswithin the time period is included. Narrative Performed At Sada Foster MD 10/13 9:10 PM ECG ED Preliminary Interpretation - Not an Order Performed by: Levi Noel PA Authorized by: Sada Foster MD ECG reviewed by ED Physician in the abse nce of a blow mold technician: yes Previous ECG: Previous ECG: Unavailable Interpretation: Interpretation: normal Rate: ECG rate: 70 ECG rate assessment: normal Rhythm: Rhythm: sinus rhythm Ectopy: Ectopy: none QRS: QRS intervals: Normal Conduction: Conduction: normal ST segments: ST segments: Normal T waves: T waves: normal CT Head Wo Contrast (07/13/2019 2:09 PM CDT) Specimen Narrative Performed At EXAMINATION: [facility] CLINICAL HISTORY: headache COMPARISON: CT [...] No acute intracranial hemorrhage or mass effect. [facility]-[id number] Procedure Note Hm Interface, Radiology Results Incoming [...] No acute intracranial hemorrhage or mass effect. [facility]-[id number] Performing Organization Address City/State/Zipcode Phone Number [facility] [address] [place] [address] Respiratory pathogen panel (07/13/2019 1:58 PM CDT) Respiratory Negative for all pathogens tested: [place] pathogen panel Negative for Adenovirus [place] Negative for Coronavirus HKU1 HOSPITAL Negative for Coronavirus NL63 Negative for [...] Specimen Nares - Left Performing Organization Address City/[facility]/Zipcode Phone Number [facility] DEPARTMENT OF PATHOLOGY AND [address] [place], [place] [address] [facility]ICINE [address] [address] Influenza antigen test, reflex negative to RPP (07/13/2019 1:58 PM CDT) Influenza antigen Negative for Influenza A/B antigen. [facility] Comment: MARTA DINH Specimen Information HOSPITAL Specimen Source: Nares Specimen Site: Left Specimen Nares - Left Performing Organization Address City/State/Zipcode Phone Number [facility] DEPARTMENT OF PATHOLOGY [id number] [place] [address], [place] [address] AND [facility] [address] [place] [address], [place] [address] HOSPITAL Group A strep, rapid antigen (07/13/2019 1:58 PM CDT) Group A strep, Negative for Group A Streptococcus antigen. [facility] rapid antigen Comment: [place] result Specimen Information HOSPITAL Specimen Source: Throat Specimen Site: Not otherwise specified Specimen Throat - Not otherwise specified Performing Organization Address City/[facility] Phone Number [facility] DEPARTMENT OF PATHOLOGY [address] [place] [address], [place] [address] [place] [address] HOSPITAL Strep screen culture (07/13/2019 1:58 PM CDT) Strep screen No beta hemolytic Streptococci isolated H ZIAZAID [facility] culture isolate Comment: HOSPITAL Specimen Information Specimen Source: Throat Specimen Site: Not otherwise specified Specimen Throat - Not otherwise specified Performing Organization Address [facility] Phone Number [facility] DEPARTMENT OF PATHOLOGY AND [address] [place] [address] [phone] [address] Manual differential (07/01/2019 5:30 AM CDT)Only the most recent of2 results within the time period is included. Manual differential PERFORMED [facility] Neutrophils 62.0 39.0 - 69.0 % [facility] Lymphocytes 12.0 (L) 25.0 - 45.0 % [facility] Monocytes 16.0 (H) 0.0 - 10.0 % [facility] Eosinophils 6.0 (H) 0.0 - 5.0 % [facility] Basophils 2.0 (H) 0.0 - 1.0 % [facility] Myelocytes 2 % [facility] Platelet slide review Maritza slt decr (A) [facility] Anisocytosis Moderate [facility] Polychromasia Moderate [facility] Spherocytes Occasional [facility] Ovalocytes Moderate [facility] Specimen Performing Organization Address [facility] Hospitalcode Phone Number [facility] DEPARTMENT OF PATHOLOGY [address] [place] [address] X [address] AND [employer] MEDICINE [facility] [place] [address] [facility] [place] [address] HOSPITAL XR Lumbar Spine 2 Or 3 [...] Vi sualized upper sacrum is grossly intact. [facility]-[id number] Procedure Note Hm Interface, Radiology Results Incoming [...] L4. Visualized upper sacrum is grossly intact. [facility]-[id number] Performing Organization Address City/State/Zipcode Phone Number [facility] [address] [place] [address] XR Abdomen 1 Vw (06/07/2019 12:07 PM [...] The visualized lung bases are clear . [facility]-[id number] Procedure Note Interface, Radiology Results Incoming - [...] 5. The visualized lung bases are clear. [facility]-[id number] Performing Organization Address City/State/Zipcode Phone Number [facility] [address] [place] [address] CT Renal Stone Protocol (06/03/2019 2:45 PM CDT) Specimen Narrative Performed At EXAMINATION: CT RENAL ST[facility] CLINICAL H[facility]ORY: pelvic pain TECHNIQUE: [...] . IMPRESSION: No evidence of acute process. [facility]-[id number] Procedure Note Interface, Radiology Results Incoming - [...] deformity. IMPRESSION: No evidence of acute process. [facility]-[id number] Performing Organization Address City/State/Zipcode Phone Number [facility] [address] [place] [address] after 05/27/2019 Additional Health Concerns Infection Noted Time Resolved Time CRE (C ) 11/22/2019 11:16 AM QUALITY CONTROL ENGINEERING TECHNICIAN C.Difficile (E) 11/22/2019 11:21 AM QUALITY CONTROL ENGINEERING TECHNICIAN Insurance Payer Benefit Plan / Group Subscriber ID Effective Phone Addre ss Type Dates MEDICARE MEDICARE PART A AND B xxxxxxxxxxx 2012-Pres [place] Medicare ent [facility] xxxxxxxxx 2020-Prese PPO COMMERCIAL nt HMO/POS/PPO ([place]) [address] [place] [id number] Advance Directives For more information, please contact: [phone] Type Date Recorded Patient Corn Breeder Explanati on Advance Directives, 07/13/2019 2:11 PM Living Will and Medical Power of Surgical Coordinator Advance Directives, 06/26/2018 5:16 PM Living Will and Medical Power of Surgical Coordinator Advance Directives, 07/23/2018 4:55 PM Living Will and Medical Power of Surgical Coordinator Advance Directives, 11/22/2018 1:29 PM MEDICAL P OA-11/16/18 Living Will and Medical Power of Surgical Coordinator Advance Directives, 02/17/2019 11:24 AM Living Will and Medical Power of Surgical Coordinator Advance Directives, 06/03/2019 12:53 PM Living Will and Medical Power of Surgical Coordinator Advance Directives, 06/11/2019 4:22 PM MEDICAL Living Will and Medical Power of Surgical Coordinator Advance Directives, 06/11/2019 4:23 PM ADV Living Will and Medical Power of Surgical Coordinator Advance Directives, 06/27/2019 1:33 PM ADVANCE D IRECTIVE Living Will and 06/21/2018 Medical Power of Surgical Coordinator Advance Directives, 06/30/2019 1:23 PM Living Will and Medical Power of Surgical Coordinator Advance Directives, 08/19/2019 1:18 PM Living Will and Medical Power of Surgical Coordinator
--- OUTSIDE RECORDS SUMMARY | 2020-05-27 13:57 | XMS REPORT | Clinical Summary ---
:1945 Author Organization [facility] Address [address] [place] [address] Care Team Providers Name Role Phone Evans [...] Acute cystitis with hematuria 11/02/2019 Travel after 05/27/2019 Social History Tobacco Use Types Packs/Day Years Used Date Unknown If Ever Smoked Sex Assigned at Date Recorded Not on file Job Start Date Occupation Industry Not on file Not on file Not on file Travel History Travel Start Travel End No recent travel history available. Last Filed Vital Signs Vital Sign Reading Time Taken Blood Pressure 120/61 11/07/2019 8:32 AM SHOE SINGER Pulse 86 11/07/2019 8:45 AM SHOE SINGER Temperature 36.8 C (98.2 F) 11/07/2019 8:32 AM SHOE SINGER Respiratory Rate 18 11/07/2019 8:45 AM SHOE SINGER Oxygen Saturation 98% 11/07/2019 8:45 AM SHOE SINGER Inhaled Oxygen Concentration 21% 11/07/2019 8:45 AM SHOE SINGER Weight 80 kg (176 lb 6.4 oz) 11/02/2019 10:27 P M SHOE SINGER Height 165.1 cm (5' 5") 11/02/2019 10:27 PM SHOE SINGER Body Mass Index 29.35 11/02/2019 10:27 PM SHOE SINGER Plan of Treatment Not on file Procedures Procedure Name Priority Date/Time Associated Comments Diagnosis SARS-COV2/RT-PCR ([facility] Routine 04/03/2020 4:28 R esults for this & REF LABS) PM CDT procedure are i n the results section. RHYTHM STRIP - SCAN 11/08/2019 2:54 PM SHOE SINGER RHYTHM STRIP - SCAN 11/07/2019 4:12 PM SHOE SINGER MR LUMBAR SPINE Routine 11/06/2019 9:12 Results for this WITHOUT IV CONTRAST AM SHOE SINGER procedur e are in the results section. CBC W/PLT COUNT & AUTO Routine 11/06/2019 3:51 R esults for this DIFFERENTIAL AM SHOE SINGER procedure are i n the results section. COMPREHENSIVE Routine 11/06/2019 3:51 Results fo r this METABOLIC PANEL AM SHOE SINGER procedure ar e in the results section. CBC W/PLT COUNT & AUTO Routine 11/06/2019 3:51 R esults for this DIFFERENTIAL AM SHOE SINGER procedure are i n the results section. CBC W/PLT COUNT & AUTO Routine 11/05/2019 4:25 R esults for this DIFFERENTIAL AM SHOE SINGER procedure are i n the results section. COMPREHENSIVE Routine 11/05/2019 4:25 Results fo r this METABOLIC PANEL AM SHOE SINGER procedure ar e in the results section. CBC W/PLT COUNT & AUTO Routine 11/05/2019 4:25 R esults for this DIFFERENTIAL AM SHOE SINGER procedure are i n the results section. CBC W/PLT COUNT & AUTO Routine 11/04/2019 4:09 R esults for this DIFFERENTIAL AM SHOE SINGER procedure are i n the results section. COMPREHENSIVE Routine 11/04/2019 4:09 Results fo r this METABOLIC PANEL AM SHOE SINGER procedure ar e in the results section. CBC W/PLT COUNT & AUTO Routine 11/04/2019 4:09 R esults for this DIFFERENTIAL AM SHOE SINGER procedure are i n the results section. CBC W/PLT COUNT & AUTO STAT 11/03/2019 5:23 R esults for this DIFFERENTIAL AM SHOE SINGER procedure are i n the results section. HEMOGLOBIN A1C STAT 11/03/2019 5:23 Results f or this AM SHOE SINGER procedure are i n the results section. CBC W/PLT COUNT & AUTO STAT 11/03/2019 5:23 R esults for this DIFFERENTIAL AM SHOE SINGER procedure are i n the results section. CT THORACIC SPINE STAT 11/02/2019 9:29 Result s for this WITHOUT IV CONTRAST PM SHOE SINGER procedur e are in the results section. CT LUMBAR SPINE STAT 11/02/2019 9:29 Results for this WITHOUT IV CONTRAST PM SHOE SINGER procedur e are in the results section. BASIC METABOLIC PANEL STAT 11/02/2019 8:39 Re sults for this (7) PM SHOE SINGER procedure are i n the results section. CBC W/PLT COUNT & AUTO STAT 11/02/2019 8:17 R esults for this DIFFERENTIAL PM SHOE SINGER procedure are i n the results section. CBC W/PLT COUNT & AUTO STAT 11/02/2019 8:17 R esults for this DIFFERENTIAL PM SHOE SINGER procedure are i n the results section. URINALYSIS W/ STAT 11/02/2019 8:02 Results fo r this MICROSCOPIC PM SHOE SINGER procedure are i n the results section. URINE CULTURE STAT 11/02/2019 8:02 Results fo r this PM SHOE SINGER procedure are i n the results section. XR SPINE LUMBAR 1 VIEW STAT 11/02/2019 7:34 R esults for this PM SHOE SINGER procedure are i n the results section. after 05/27/2019 Results SARS-CoV2/RT-PCR ([facility]) (04/03/2020 4:28 PM CDT) SARS-COV2/RT-PCR Not Detected Not Detected, Negative [facility] SARS-COV-2 PERFORMING LAB [facility] Specimen Other Narrative Performed At Negative results do not preclude SARS-CoV-2 [facility] infection and should not be used as [...] the Act. Fact Sheet for Healthcare Providers: https://www.MobileHelp/Documents/Xpert%20Xpre ss%20SARS%20CoV-2/Fact%20Sheets/389-4814%20SAR S-COV-2%20HEALTHCARE%20PROVIDERS%20FACT%20SHEE T.pdf Fact Sheet for Healthcare Patients: https://www.MobileHelp/Documents/Xpert%20Xpre ss%20SARS%20CoV-2/Fact%20Sheets/302-3801%20SAR S-COV-2%20PATIENT%20FACT%20SHEET.pdf Performing Laboratory: [facility] [address] [facility] [place] [address] Performing Organization Address City/State/Zipcode Phone Number [facility] [address] [place] [address] CENTER RHYTHM STRIP - SCAN (11/08/2019 2:54 PM SHOE SINGER)Only the most recent of2 results within the time period is included. Narrative Performed At This result has an attachment that is no t available. MR spine lumbar without IV contrast (11/06/2019 9:12 AM SHOE SINGER) Specimen Narrative Performed At FINAL REPORT [facility] MR, SPINE, LUMBAR, WITHOUT CONTRAST INDICATION: Eval [...] MD Report Verified Date/Time:11/06/2019 09:31:56 Reading Location: [facility] Radiolog Reading Room Procedure Note Interface, External Ris In - 11/06/2019 9:34 AM SHOE SINGER FINAL REPORT MR, SPINE, LUMBAR, WITHOUT CONTRAST [...] Verified Date/Time: 11/06/2019 0 9:31:56 Reading Location: [facility] Radiolog y Reading Room Performing Organization Address City/State/Zipcode Phone Number GE RIS CBC with platelet count + automated diff (11/06/2019 3:51 AM SHOE SINGER)Only the most recent of5 resultswithin the time [...] City/State/Zipcode Phone Number [facility] [address] [place] [phone] Comprehensive metabolic panel (11/06/2019 3:51 AM SHOE SINGER)Only the most recent of3 resultswithin the time [...] AST 17 5 - 40 U/L [facility] ALT 10 5 - 50 U/L [facility] EGFR 81Comment: ESTIMATED GFR mL/min/1.73 sq m [facility] IS NOT ACCURATE CREATININE CLEARANCE IN PREDICTING GLOMERULAR FILTRATION RATE. ESTIMATED GFR IS NOT APPLICABLE FOR DIALYSIS PATIENTS. Specimen Blood Performing Organization Address City/State/Zipcode Phone Number [facility] [address] [place], [place] [address] Hemoglobin A1c (11/03/2019 5:23 AM SHOE SINGER) Hemoglobin A1C <3.7 (L) 4.3 - 6.1 % [facility] Specimen Blood Performing Organization Address City/State/Zipcode Phone Number [facility] [address] [place], [place] [address] CT spine lumbar without IV contrast (11/02/2019 9:29 PM SHOE SINGER) Specimen Narrative Performed At FINAL REPORT [facility] CT, SPINE, LUMBAR, WO CONTRAST, CT, SPIN [...] to retropulsed posterior cortical margin (possibly chronic). Marketing Traffic Coordinator nicity could be better characterized by MRI [...] External Ris In - 11/02/2019 10:28 PM SHOE SINGER FINAL REPORT CT, SPINE, LUMBAR, WO CONTRAST, [...] to retropulsed posterior cortical margin (possibly chronic). Marketing Traffic Coordinator nicity could be better characterized by MRI lumbar spine. Moderate thoracic and moderate to severe lumbar spondylosis, described above. Small right pleural effusion and bilater al pulmonary airspace disease, pulmonary contusion/hemorrhage and hemothorax or considerations in the setting of trauma. Additional chronic findings discussed ab ove. Signed: Bigg Philippe MD Report Verified Date/Time: 11/02/2019 2 2:26:12 Performing Organization Address City/State/Zipcode Phone Number [facility] CT spine thoracic without IV contrast (11/02/2019 9:29 PM SHOE SINGER) Specimen Narrative Performed At FINAL REPORT [facility] CT, SPINE, LUMBAR, WO CONTRAST, CT, SPIN [...] to retropulsed posterior cortical margin (possibly chronic). Marketing Traffic Coordinator nicity could be better characterized by MRI [...] External Ris In - 11/02/2019 10:28 PM SHOE SINGER FINAL REPORT CT, SPINE, LUMBAR, WO CONTRAST, [...] to retropulsed posterior cortical margin (possibly chronic). Marketing Traffic Coordinator nicity could be better characterized by MRI [...] Glu, Ca, BUN, Cr) (11/02/2019 8:39 PM SHOE SINGER) Sodium 139 135 - 148 meq/L [facility] [...] Blood Performing Organization Address City/State/Zipcode Phone Number [facility] [address] [phone] Urinalysis w/Microscopic (11/02/2019 8:02 PM SHOE SINGER) Color, UA Green [facility] Clarity, UA Cloudy [facility] Specific [place], UA 1.020 1.001 - 1.035 [facility] [...] [facility] Specimen Source [facility] Specimen Urine Performing Organization Address City/[facility]/Zipcode Phone Number [facility] [address] [place], [place] [address] Urine culture (11/02/2019 8:02 PM SHOE SINGER) Result >100,000 col/mL Ellen glabrata (A) [facility] Specimen Urine Performing Organization Address [facility] Phone Number [facility] [address] [facility] [place] [address] XR spine lumbar 1 view (11/02/2019 7:34 PM SHOE SINGER) Specimen Narrative Performed At FINAL REPORT GE [...] MD Report Verified Date/Time:11/02/2019 19:40:44 Reading Location: [address] Reading Room Procedure Note Interface, External Ris In - 11/02/2019 7:42 PM SHOE SINGER FINAL REPORT EXAM: Lumbar spine one view [...] Verified Date/Time: 11/02/2019 1 9:40:44 Reading Location: [address] Reading Room Performing Organization Address City/[facility] Phone Number [facility] after 05/27/2019 Insurance Payer Benefit Plan / Group Subscriber ID Type Phone A ddress MEDICARE MEDICARE A B xxxxxxxxxxx Medicare Advance Directives For more information, please contact:[place] [phone] [place], [place] [phone] Code Status Date Activated Date Inactivated Comments Full Code 11/02/2019 11:07 PM 11/07/2019 5:41 PM This code status was determined by: Patient
[2020-05-27 14:25] LABS: Absolute Lymphocytes (CBC) 0.6 K/uL (0.7-4.9); Lymphocytes % 11.5 % (15.3-44.8); RBC Red Blood Cell Count 2.01 M/uL (3.86-4.86)
[2020-05-27 14:31] LABS: Protime INR 1.01
--- NOTE | 2020-05-27 14:40 | RAD REPORT ---
EXAM DESCRIPTION: Taco Single View05/27/2020 2:12 pm CLINICAL HISTORY: Chest pain COMPARISON: March 2001 FINDINGS: The lungs appear clear of acute infiltrate. The heart is normal size IMPRESSION: No acute abnormalities displayed
--- NOTE | 2020-05-27 14:41 | RAD REPORT ---
EXAM DESCRIPTION: RAD - Pelvis - 05/27/2020 2:12 pm CLINICAL HISTORY: Pelvic pain status post injury FINDINGS: No acute fracture or dislocation is seen. Osteoporosis. Compression screw and intramedullary cris affix an old right femoral fracture
[2020-05-27 14:51] LABS: ALT/SGPT 13 U/L (12-78); Albumin 3.1 g/dL (3.4-5.0); Alkaline Phosphatase 97 U/L (45-117); BUN Blood Urea Nitrogen 19 mg/dL (7-18); Bicarbonate 24 mmol/L (21-32); Bilirubin Direct 0.2 mg/dL (0-0.2); Bilirubin Total 0.7 mg/dL (0.2-1.0); Glucose Level 66 mg/dL (74-106); NT PRO-BNP 2184 pg/mL (<125); Protein, Total 5.9 g/dL (6.4-8.2); Sodium Level 138 mmol/L (136-145); Troponin (Emerg Dept Use Only) < 0.02 ng/mL (0.0-0.045)
[2020-05-27 15:00] LABS: AST/SGOT 29 U/L (15-37); Magnesium 1.7 mg/dL (1.8-2.4); Potassium 4.9 mmol/L (3.5-5.1)
--- NOTE | 2020-05-27 15:04 | ER ---
Nurse's Notes [facility] Name: Tina Padron Age: 74 yrs Sex: Female : 1945 Arrival Date: 05/27/2020 Time: 12:21 Bed 6 Private MD: Diagnosis: Anemia in chronic diseases classified elsewhere;Acute kidney failure, unspecified;Urinary tract infection, site not specified Presentation: 05/27 12:22 Chief complaint: Patient states: L shoulder, L back and L leg pain that began 1 hour ss ago after fall from standing. Coronavirus screen: Patient denies a cough. Patient denies shortness of breath or difficulty breathing. Patient denies measured and/or subjective temperature greater than 100.4F prior to today's visit. Patient denies travel on a cruise ship or to a country the [facility] currently lists as an affected area. Patient denies contact with known and/or suspected case of COVID-19. Proceed with normal triage. Ebola Screen: Patient denies exposure to infectious person. Patient denies travel to an Ebola-affected area in the 21 days before illness onset. Initial Sepsis Screen: Does the patient meet any 2 criteria? No. Patient's initial sepsis screen is negative. Does the patient have a suspected source of infection? No. Patient's initial sepsis screen is negative. Risk Assessment: Do you want to hurt yourself or someone else? Patient reports no desire to harm self or others. Onset of symptoms was May 27, 2020. 12:22 Method Of Arrival: EMS: [facility] 12:22 Acuity: TYLOR 3 ss 12:22 Care prior to arrival: None. Mechanism of Injury: Fall Trauma event details: Injury sv occurred in the [facility], Injury occurred: at home. Trauma Activation: Not Applicable Physician: ED Physician; Name: ; Notified At: ; Arrived At: Physician: General Surgeon; Name: ; Notified At: ; Arrived At: Physician: Radiology; Name: ; Notified At: ; Arrived At: Physician: Respiratory; Name: ; Notified At: ; Arrived At: Physician: Lab; Name: ; Notified At: ; Arrived At: Historical: - Allergies: 12:26 Compazine; ss 12:26 Meclizine; ss - PMHx: 12:26 "shattered shoulder"; Anxiety; chronic uti; Hyperlipidemia; Hypertension; ss Hypothyroidism; spinal fractures; - PSHx: 12:26 Cholecystectomy; Hysterectomy; l shoulder; back; ss - Immunization history:: Adult Immunizations unknown. - Social history:: Smoking status: Patient denies any tobacco usage or history of. - Immunization history: Last tetanus immunization: unknown. Screenin:23 Abuse screen: Denies threats or abuse. Nutritional screening: No deficits noted. tw2 Tuberculosis screening: No symptoms or risk factors identified. Fall Risk Secondary diagnosis (15 points) impaired mobility. Primary Survey: 12:22 NO uncontrolled hemorrhage observed. A: The patient is alert. Airway: patent, No sv supplemental oxygen in use on arrival. Oral cavity: clear, Trachea midline. Breathing/Chest: Respiratory pattern: regular, Respiratory effort: spontaneous, unlabored, Chest inspection: symmetrical rise and fall of the chest. Circulation: Pulses: palpable right radial artery and left radial artery. Skin color: pink, Skin temperature: warm, dry. Disability Alert. Exposure/Environment: All clothing and personal items were removed. Forensic evidence collection is not deemed to be indicated at this time. Items placed in patient belonging bag. There is evidence of uncontrolled external hemorrhage. Provider notified immediately. Methods to control bleeding applied. No obvious injuries are noted at this time. A warming method has been applied: A warm blanket has been provided to the patient. 12:45 Reassessment Airway Airway Patent Oxygen No O2 Oral cavity Clear Trachea Midline sv Breathing/Chest Respiratory pattern Regular Respiratory effort Spontaneous Unlabored Chest inspection Symmetrical Circulation Pulses Palpable Color [place] Temperature Warm Dry Disability Alert. Secondary Survey: 12:22 HEENT: No deficits noted. Gastrointestinal: No deficits noted. : No deficits noted. sv No signs and/or symptoms were reported regarding the genitourinary system. Musculoskeletal: No deficits noted. No signs and/or symptoms reported regarding the musculoskeletal system. Assessment: 12:25 General: Appears in no apparent distress. uncomfortable, Behavior is cooperative, sv appropriate for age, anxious. Pain: Complains of pain in left arm and left leg. Cardiovascular: Edema is 1+ to left ankle, left foot, left toes, right ankle, right foot and right toes. 14:00 Reassessment: Pt cleaned of urine incontinence. sv 15:00 Reassessment: Patient appears in no apparent distress at this time. No changes from sv previously documented assessment. Patient and/or family updated on plan of care and expected duration. Pain level reassessed. Patient is alert, oriented x 3, equal unlabored respirations, skin warm/dry/pink. 16:02 Reassessment: Pt cleaned of incontinence. sv 16:03 Reassessment: Patient appears in no apparent distress at this time. No changes from sv previously documented assessment. Patient and/or family updated on plan of care and expected duration. Pain level reassessed. Patient is alert, oriented x 3, equal unlabored respirations, skin warm/dry/pink. 17:00 Reassessment: Patient appears in no apparent distress at this time. No changes from sv previously documented assessment. Patient and/or family updated on plan of care and expected duration. Pain level reassessed. Patient is alert, oriented x 3, equal unlabored respirations, skin warm/dry/pink. 20:16 Reassessment: Report called to Analy MCGRATH on second floor. ea 20:23 Reassessment: Pt admitted to second floor, pt left ED vias stretcher per quality control lab technician and ea nurse. Pt tolerating well. Vital Signs: 12:22 BP 90 / 57; Resp 17; Weight 61.69 kg; Height 5 ft. 5 in. (165.10 cm); Pain 9/10; ss 12:24 Temp 97.6(TE); tw2 12:45 BP 122 / 42; Pulse 77; Resp 16; Pulse Ox 95% ; sv 13:00 BP 116 / 41; Pulse 76; Resp 16; Pulse Ox 98% ; sv 14:21 BP 99 / 50; Pulse 79; Resp 10; Pulse Ox 100% ; sv 15:15 BP 116 / 57; Pulse 70; Resp 14; Pulse Ox 100% ; sv 20:00 BP 92 / 55; Pulse 72; Resp 18; Temp 98.7; Pulse Ox 100% on R/A; sg 12:22 Body Mass Index 22.63 (61.69 kg, 165.10 cm) ss Haley Coma Score: 12:22 Eye Response: spontaneous(4). Verbal Response: oriented(5). Motor Response: obeys sv commands(6). Total: 15. Trauma Score (Adult): 12:22 Eye Response: spontaneous(1); Verbal Response: oriented(1); Motor Response: obeys sv commands(2); Systolic BP: > 89 mm Hg(4); Respiratory Rate: 10 to 29 per min(4); [place] Score: 15; Trauma Score: 12 12:45 Eye Response: spontaneous(1); Verbal Response: oriented(1); Motor Response: obeys sv commands(2); Systolic BP: > 89 mm Hg(4); Respiratory Rate: 10 to 29 per min(4); Haley Score: 15; Trauma Score: 12 ED Course: 12:21 Patient arrived in ED. ss 12:23 Mateo Guzman PA is PHCP. cp 12:23 Mateo Fox MD is Attending Physician. cp 12:23 Bed in low position. Call light in reach. Side rails up X2. patient monitor on. Pulse tw2 ox on. NIBP on. Warm blanket given. 12:24 Triage completed. ss 12:26 Arm band placed on right wrist. ss 12:30 Thermoregulation: warm blanket given to patient. sv 12:45 Patient maintains SpO2 saturation greater than 95% on room air. sv 13:00 Ramires cath inserted, using sterile technique, 16 Fr., by wind energy systems installer, balloon inflated, to sv gravity drainage, urine specimen collected. returned jese urine. 13:01 Ximena Tidwell, ALCIDES is Primary Nurse. sv 13:29 Head C Spine Cap Wo Con In Process Unspecified. EDMS 13:45 Ramires cath removed intact, Pt demanding to take it out. sv 14:10 Missed attempt(s): 22 gauge in right hand. Bleeding controlled, band aid applied, sv catheter tip intact. 14:13 XRAY Chest (1 view) In Process Unspecified. EDMS 14:13 XRAY Pelvis In Process Unspecified. EDMS 14:15 Inserted saline lock: 24 gauge in left hand, using aseptic technique. Blood collected. sv Flushed left hand with 2 ml normal saline. 15:03 Laurent Morales MD is Hospitalizing Provider. cp 15:38 Urine Culture Sent. sv 16:04 Awaiting bed assignment. sv 16:07 Accessed 20 gauge, 10 cm POWERGLIDE midline inserted to L upper arm. Pt tolerated well. ss Good blood return noted and flushes easily. 16:27 Awaiting bed assignment. sv 17:00 Consent for blood and/or blood product transfusion explained by staff, explained by sv physician, signed by patient. 17:07 No provider procedures requiring assistance completed. Patient admitted, IV remains in sv place. intact. 19:08 Primary Nurse role handed off by Ximena Tidwell RN Administered Medications: 12:47 CANCELLED (Physician Discretion): NS 0.9% 500 ml IV at bolus once cp 15:57 Drug: D50W 25 ml Route: IVP; Site: left upper arm; sv 16:01 Follow up: Response: No adverse reaction sv 16:00 Drug: Rocephin - (cefTRIAXone) 1 grams Route: IVPB; Infused Over: 30 mins; Site: left sv upper arm; 16:01 Follow up: Response: No adverse reaction; IV Status: Completed infusion; IV Intake: 10mlsv 16:01 Drug: NS 0.9% 1000 ml Route: IV; Rate: 1000 ml/hr; Site: left upper arm; sv 16:17 Drug: fentaNYL (PF) 25 mcg Route: IVP; Site: left upper arm; sv 16:28 Follow up: Response: No adverse reaction; RASS: Restless (+1) sv Intake: 12:22 PO: 0ml; Total: 0ml. sv 12:45 PO: 0ml; Total: 0ml. sv 16:01 IV: 10ml; Total: 10ml. sv Output: 12:22 Urine: 0ml; Total: 0ml. sv 12:45 Urine: 0ml; Total: 0ml. sv 14:00 Other: 1 (Diapers) ; Total: 0ml. sv 16:02 Other: 1 (Diapers) ; Total: 0ml. sv Outcome: 15:03 Decision to Hospitalize by Provider. cp 16:07 Instructed on the need for admit. ss 16:27 Patient's length of stay in the Emergency Department was greater than 2 hours. sv Patient's length of stay was extended due to staffing issues within the emergency department. 17:07 Admitted to ER Hold. Please see [facility] for further documentation. sv 17:07 Condition: stable 20:24 Patient left the ED. ea Signatures: Dispatcher [employer] EDMS Ximena Tidwell, ALCIDES MCGRATH Addy Vale RN Racheal Brooks RN RN Mateo Guzman PA PA cp Wise, Tara, RN RN tw2 Analy Alfonso RN RN ea
--- NOTE | 2020-05-27 15:05 | EDPHYS ---
Physician Documentation [facility] Name: Tina Padron Age: 74 yrs Sex: Female : 1945 Arrival Date: 05/27/2020 Time: 12:21 Bed 6 Private MD: BARNEY Physician Mateo Fox HPI: 05/27 12:45 This 74 yrs old Female presents to ER via EMS with complaints of Fall Injury. cp 12:45 EMS reports patient found in bathroom of home on ground by . Patient was alert cp on scene. Patient with history of frequent falls and c/o pain left side of body. Historical: - Allergies: 12:26 Compazine; ss 12:26 Meclizine; ss - PMHx: 12:26 "shattered shoulder"; Anxiety; chronic uti; Hyperlipidemia; Hypertension; ss Hypothyroidism; spinal fractures; - PSHx: 12:26 Cholecystectomy; Hysterectomy; l shoulder; back; ss - Immunization history:: Adult Immunizations unknown. - Social history:: Smoking status: Patient denies any tobacco usage or history of. - Immunization history: Last tetanus immunization: unknown. ROS: 12:55 Constitutional: Negative for fever. cp 12:55 Cardiovascular: Negative for chest pain. 12:55 Respiratory: Negative for shortness of breath. 12:55 Abdomen/GI: Negative for abdominal pain. 12:55 Unable to obtain ROS due to baseline dementia. Exam: 13:00 Constitutional: The patient appears in no acute distress, alert, awake, cp non-diaphoretic, non-toxic, well developed, well nourished. 13:00 Head/Face: Normocephalic, atraumatic. cp 13:00 Eyes: Periorbital structures: appear normal, Pupils: equal, round, and reactive to light and accomodation, Conjunctiva: normal, no exudate, no injection, Sclera: no appreciated abnormality, Lids and lashes: appear normal, bilaterally. 13:00 ENT: External ear(s): are unremarkable, Nose: is normal, Mouth: Lips: moist, Oral mucosa: moist, Posterior pharynx: is normal, airway is patent, no erythema, no exudate. 13:00 Neck: C-spine: vertebral tenderness, is not appreciated, crepitus, is not appreciated, ROM/movement: pain, is not appreciated, limited range of motion, is not appreciated. 13:00 Chest/axilla: Inspection: normal, Palpation: crepitus, is not appreciated, tenderness, of the left lateral posterior chest and left lateral anterior chest. 13:00 Cardiovascular: Rate: normal, Rhythm: regular, Edema: is not appreciated, JVD: is not appreciated. 13:00 Respiratory: the patient does not display signs of respiratory distress, Respirations: normal, no use of accessory muscles, no retractions, labored breathing, is not present, Breath sounds: are clear throughout, no decreased breath sounds, no stridor, no wheezing. 13:00 Abdomen/GI: Inspection: abdomen appears normal, Bowel sounds: active, all quadrants, Palpation: soft, in all quadrants, moderate abdominal tenderness, in the posterior aspect of left lateral abdomen and anterior aspect of left lateral abdomen, involuntary guarding, is not appreciated. 13:00 Back: vertebral tenderness, is not appreciated. 13:00 Musculoskeletal/extremity: Exam is negative for decreased range of motion, deformity. 13:00 Skin: no rash present. 13:00 Neuro: Orientation: to person, Not oriented to situation, Mentation: able to follow commands. 14:20 ECG was reviewed by the Attending Physician. cp Vital Signs: 12:22 BP 90 / 57; Resp 17; Weight 61.69 kg; Height 5 ft. 5 in. (165.10 cm); Pain 9/10; ss 12:24 Temp 97.6(TE); tw2 12:45 BP 122 / 42; Pulse 77; Resp 16; Pulse Ox 95% ; sv 13:00 BP 116 / 41; Pulse 76; Resp 16; Pulse Ox 98% ; sv 14:21 BP 99 / 50; Pulse 79; Resp 10; Pulse Ox 100% ; sv 15:15 BP 116 / 57; Pulse 70; Resp 14; Pulse Ox 100% ; sv 20:00 BP 92 / 55; Pulse 72; Resp 18; Temp 98.7; Pulse Ox 100% on R/A; sg 12:22 Body Mass Index 22.63 (61.69 kg, 165.10 cm) ss Hobbs Coma Score: 12:22 Eye Response: spontaneous(4). Verbal Response: oriented(5). Motor Response: obeys sv commands(6). Total: 15. Trauma Score (Adult): 12:22 Eye Response: spontaneous(1); Verbal Response: oriented(1); Motor Response: obeys sv commands(2); Systolic BP: > 89 mm Hg(4); Respiratory Rate: 10 to 29 per min(4); Haley Score: 15; Trauma Score: 12 12:45 Eye Response: spontaneous(1); Verbal Response: oriented(1); Motor Response: obeys sv commands(2); Systolic BP: > 89 mm Hg(4); Respiratory Rate: 10 to 29 per min(4); Hobbs Score: 15; Trauma Score: 12 MDM: 12:24 Patient medically screened. alec 13:30 Differential diagnosis: closed head injury, contusion, fracture, multiple trauma, cp syncope, cardiac arrythmia, anemia. 15:00 Data reviewed: vital signs, nurses notes, lab test result(s), EKG, radiologic studies, CT scan, plain films, I have discussed the patient's presentation/case with the attending Emergency Department Physician; and as a result, I will admit patient. 15:05 Physician consultation: Laurent Morales MD was called at 15:00, was contacted at 15:00, regarding admission, to the telemetry unit. patient's condition. 15:35 Test interpretation: by ED physician or midlevel provider: ECG. 05/27 12:43 Order name: Basic Metabolic Panel; Complete Time: 15: 05/27 15:01 Interpretation: Normal except: GLUC 66; BUN 19; CRE 1.83; GFR 27. 05/27 12:43 Order name: CBC with Diff; Complete Time: 14:46 05/27 15:02 Interpretation: Normal except: RBC 2.01; HGB 6.2; HCT 19.0; PLT 148; RDW 16.6; LYM% cp 11.5; MN% 12.7; LYMA 0.6. 05/27 12:43 Order name: LFT's; Complete Time: 15:01 05/27 12:43 Order name: Magnesium; Complete Time: 15:01 05/27 12:43 Order name: NT PRO-BNP; Complete Time: 15:01 05/27 12:43 Order name: PT-INR; Complete Time: 14:46 05/27 12:43 Order name: Troponin (emerg Dept Use Only); Complete Time: 15: 05/27 12:43 Order name: Urine Microscopic Only; Complete Time: 15:34 05/27 12:47 Order name: Procalcitonin; Complete Time: 17:27 05/27 12:47 Order name: Lactate; Complete Time: 14:57 05/27 14:57 Interpretation: Reviewed. 05/27 12:47 Order name: Blood Culture Adult (2) 05/27 14:38 Order name: CREATININE WHOLE BLOOD; Complete Time: 14:46 EDHI 05/27 14:42 Order name: Urine Dipstick--Ancillary (enter results); Complete Time: 15:34 05/27 14:58 Order name: Type And Screen 05/27 12:43 Order name: XRAY Chest (1 view); Complete Time: 14:46 05/27 12:46 Order name: XRAY Pelvis; Complete Time: 14:46 05/27 13:19 Order name: Head C Spine Cap Wo Con; Complete Time: 14:46 [facility] 05/27 15:02 Order name: Bb Add On 05/27 15:20 Order name: Urine Culture [facility] 05/27 15:53 Order name: Urinalysis [facility] 05/27 15:53 Order name: Basic Metabolic Panel [facility] 05/27 15:53 Order name: Basic Metabolic Panel [facility] 05/27 15:53 Order name: CBC with Automated Diff [facility] 05/27 15:53 Order name: CBC with Automated Diff [facility] 05/27 15:53 Order name: Magnesium [facility] 05/27 15:53 Order name: Magnesium [facility] 05/27 16:04 Order name: Packed RBC Leukored [facility] 05/27 12:43 Order name: EKG; Complete Time: 12:44 05/27 12:43 Order name: Cardiac monitoring; Complete Time: 15:19 05/27 12:43 Order name: EKG - Nurse/Tech; Complete Time: 15:19 05/27 12:43 Order name: IV Saline Lock; Complete Time: 15:19 05/27 12:43 Order name: Labs collected and sent; Complete Time: 15:19 05/27 12:43 Order name: O2 Per Protocol; Complete Time: 15:19 05/27 12:43 Order name: O2 Sat Monitoring; Complete Time: 15:19 05/27 12:43 Order name: Ramires; Complete Time: 13:43 05/27 12:43 Order name: Urine Dipstick-Ancillary (obtain specimen); Complete Time: 15:18 cp 05/27 15:53 Order name: Regular EDMS EC:20 Rate is 80 beats/min. Rhythm is regular. IN interval is normal. QRS interval is normal. cp QT interval is normal. T waves are Inverted in lead aVR. Interpreted by me. Reviewed by me. Administered Medications: 12:47 CANCELLED (Physician Discretion): NS 0.9% 500 ml IV at bolus once cp 15:57 Drug: D50W 25 ml Route: IVP; Site: left upper arm; sv 16:01 Follow up: Response: No adverse reaction sv 16:00 Drug: Rocephin - (cefTRIAXone) 1 grams Route: IVPB; Infused Over: 30 mins; Site: left sv upper arm; 16:01 Follow up: Response: No adverse reaction; IV Status: Completed infusion; IV Intake: 10mlsv 16:01 Drug: NS 0.9% 1000 ml Route: IV; Rate: 1000 ml/hr; Site: left upper arm; sv 16:17 Drug: fentaNYL (PF) 25 mcg Route: IVP; Site: left upper arm; sv 16:28 Follow up: Response: No adverse reaction; RASS: Restless (+1) sv Disposition: 15:15 Chart complete. 05/28 08:38 Co-signature as Attending Physician, Mateo Fox MD I agree with the assessment and alec plan of care. Disposition: 05/27/20 15:03 Hospitalization ordered by Laurent Morales for Inpatient Admission. Preliminary diagnosis are Anemia in chronic diseases classified elsewhere, Acute kidney failure, unspecified, Urinary tract infection, site not specified. - Bed requested for Telemetry/MedSurg (Inpatient). - Status is Inpatient Admission. ea - Condition is Stable. - Problem is new. - Symptoms have improved. Signatures: Dispatcher [employer] EDHI Diana Arias Stephanie RN Mateo Davila MD MD cha Smirch, Shelby, RN RN ss Page, Corey, PA PA cp Garcia, Cindy, RN RN cg Antunez, Elena, RN RN ea Corrections: (The following items were deleted from the chart) 05/27 12:47 12:46 NS 0.9% 500 ml IV at bolus once ordered. cp cp 13:19 12:46 Head C Spine CAP W Con+CT.RAD.BRZ ordered. EDMS EDMS 15:02 14:47 Normal except: RBC 2.01; HGB 6.2; HCT 19.0; PLT 148; RDW 16.6; LYM% 11.5; MN% cp 12.7. cp 16:45 15:03 Hospitalization Ordered by Laurent Morales MD for Inpatient Admission. Preliminary bd diagnosis is Anemia in chronic diseases classified elsewhere; Acute kidney failure, unspecified. Bed requested for Telemetry/MedSurg (Inpatient). Status is Inpatient Admission. Condition is Stable. Problem is new. Symptoms have improved. cp 17:27 16:45 05/27/2020 15:03 Hospitalization Ordered by Laurent Morales MD for Inpatient cp Admission. Preliminary diagnosis is Anemia in chronic diseases classified elsewhere; Acute kidney failure, unspecified. Bed requested for [facility] ER HOLD. Status is Inpatient Admission. Condition is Stable. Problem is new. Symptoms have improved. bd 19:53 17:27 05/27/2020 15:03 Hospitalization Ordered by Laurent Morales MD for Inpatient cg Admission. Preliminary diagnosis is Anemia in chronic diseases classified elsewhere; Acute kidney failure, unspecified; Urinary tract infection, site not specified. Bed requested for [facility] ER HOLD. Status is Inpatient Admission. Condition is Stable. Problem is new. Symptoms have improved. cp 20:24 19:53 05/27/2020 15:03 Hospitalization Ordered by Laurent Morales MD for Inpatient ea Admission. Preliminary diagnosis is Anemia in chronic diseases classified elsewhere; Acute kidney failure, unspecified; Urinary tract infection, site not specified. Bed requested for Telemetry/MedSurg (Inpatient). Status is Inpatient Admission. Condition is Stable. Problem is new. Symptoms have improved. cg 05/28 18:27 05/27 15:35 Data reviewed: vital signs, nurses notes, lab test result(s), EKG, cp radiologic studies, CT scan, plain films, cp
[2020-05-27 15:17] LABS: Urine Blood 3+ (NEG); Urine Glucose TRACE (NEG); Urine Specific Gravity 1.015 (1.005-1.030)
[2020-05-27 15:18] LABS: Urine Protein 2+ (NEG); Urine pH 5.5 (5.0-7.0)
[2020-05-27 15:18] LABS: Urine Bacteria >50 /HPF (<20); Urine Culture Reflex Order REFLEXED; Urine RBC >50 /HPF (NONE SEEN)
[2020-05-27] MEDS ORDERED: D50W 25 GM/50 ML SYRINGE/VIAL IV ONE (15:43)
[2020-05-27] MEDS ORDERED: NA CHLORIDE 0.9% 1,000 ML ONE (15:44)
[2020-05-27] MEDS ORDERED: CEFTRIAXONE/SWI 1gm 1 GM/10 ML SYR ONE (15:46)
[2020-05-27] MEDS ORDERED: ACETAMINOPHEN 500 MG TAB PO PRN (15:48)
--- NOTE | 2020-05-27 15:58 | P.HP ---
Certification for Inpatient Patient admitted to: Observation With expected LOS: <2 Midnights Patient will require the following post-hospital care: None Practitioner: I am a practitioner with admitting privileges, knowledge of patient current condition, hospital course, and medical plan of care. Services: Services provided to patient in accordance with Admission requirements found in Title 42 Section 412.3 of the Code of Federal Regulations <Simon Francisco - Last Filed: 05/27/20 16:03> Patient History Date of Service: 05/27/20 Primary Care Provider: Panchito Solorzano Reason for admission: Anemia History of Present Illness: 74-year-old female brought to the emergency room by her with complaints of fall injury. Patient states that she felt weak and that she fell landing on her left-sided. Patient denies loss of consciousness. Fall injury occurred prior to arrival to the ED and patient was brought via EMS. In the emergency room imaging showed no acute fractures. CT head and neck spine chest abdomen pelvis showing no acute traumatic abnormalities involving the chest abdomen or pelvis. No cervical fracture. Chest x-ray showing no acute abnormalities. Pelvis x-ray showing old right femoral fracture with pins in place. Lab work showed a decreased hemoglobin hematocrit of 6.2/19.0. This is a new finding for the patient. Prior lowest hemoglobin was 7.2. On 04/04/2020. She does have a history of chronic anemia. Emergency room order 2 units PRBCs to be transfused on this admission. She was also noted to have an elevated creatinine level of 1.8. Prior creatinine level of 1.22 was noted on 04/29/2020. On physical exam patient is anxious and agitated. Per family member patient has a history of anxiety. She is on clonazepam 1 mg as needed. Patient is also complaining of left-sided pain. She is also agitated stating that she has not eaten but has not told her about it. She is a poor historian and may have some underlying undiagnosed dementia. Patient will be placed in observation and further evaluated. Home medications list reviewed: No - Past Medical/Surgical History Diabetic: No -: Hypertension -: Hypothyroidism -: B-cell lymphoma -: DDD/DJD of spine -: Chronic recurrent UTI requiring long-term antibiot -: shingles ( ) -: Vertigo -: Anxiety -: Hysterectomy -: Cholecystectomy, Gastric Bypass -: Gastric torsion repair -: Right Hip surgery -: Knee surgery -: Port-A-Cath placement and removal -: Right Shoulder Sx, LISA lens replacement -: TONSILLECTOMY Psychosocial/ Personal History: The patient is originally from [place]. She moved to the area in July. She is . She has 3 children. - Family History Mother -: Heart disease, Hypertension, Diabetes, Kidney disease Father -: Heart disease, Diabetes, Other (see notes) Notes: Alzheimers - Social History Smoking Status: Never smoker Alcohol use: No CD- Drugs: No Caffeine use: Yes Place of Residence: Home <Simon Francisco - Last Filed: 05/27/20 16:03> Date of Service: 05/28/20 <Andrea Morales - Last Filed: 05/28/20 16:39> Allergies prochlorperazine [From Compazine] Allergy (Intermediate, Verified 12/08/17 12:55) PYSCHOSIS Prochlorperazine Maleate Allergy (Uncoded 04/22/18 15:25) Unknown Home Medications: Levothyroxine [Synthroid*] 88 mcg PO DAILY 02/06/20 Omeprazole [Prilosec] 40 mg PO DAILY 02/06/20 clonazePAM [Clonazepam] 1 mg PO BEDTIME 02/06/20 Oxycodone HCl/Acetaminophen [Oxycodon-Acetaminophen 7.5-325] 1 each PO QIDP PRN 02/25/20 Losartan Potassium 100 mg PO DAILY 04/03/20 hydroCHLOROthiazide [Hydrochlorothiazide*] 12.5 mg PO DAILY 05/28/20 Review of Systems General: Weakness Eyes: Unremarkable ENT: Unremarkable Respiratory: Unremarkable Cardiovascular: Unremarkable Gastrointestinal: Unremarkable Genitourinary: Urgency Musculoskeletal: Neck Pain (Left side), Shoulder Pain (Left), Arm Pain (Left), Leg Pain (Left) Integumentary: Unremarkable <Simon Francisco - Last Filed: 05/27/20 16:03> Physical Examination - Vital Signs Temperature: 97.6 F Blood Pressure: 116/41 Pulse: 77 Respirations: 16 Pulse Ox (%): 98 (RA) - Physical Exam General: Alert, Oriented x3, Mild distress, Other (Anxious) HEENT: Atraumatic, Normocephalic, PERRLA Neck: Supple, Other (Trachea midline) Respiratory: Clear to auscultation bilaterally, Normal air movement Cardiovascular: No edema, Normal pulses, Regular rate/rhythm Capillary refill: <2 Seconds Gastrointestinal: Normal bowel sounds, Soft and benign, Non-distended Musculoskeletal: No swelling, No contractures, No erythema Integumentary: No rashes, No breakdown, No significant lesion, No tenderness/swelling Neurological: Normal speech, Normal strength at 5/5 x4 extr, Normal tone Other Physical/Emotional Findings: Lives at home with . - Studies Laboratory Data (last 24 hrs) 05/27/20 14:10: PT 12.0, INR 1.01 05/27/20 14:10: WBC 5.3, Hgb 6.2 L*, Hct 19.0 L*, Plt Count 148 L 05/27/20 14:10: Sodium 138, Potassium 4.9, BUN 19 H, Creatinine 1.83 H, Glucose 66 L, Magnesium 1.7 L, Total Bilirubin 0.7, AST 29, ALT 13, Alkaline Phosphatase 97 <Simon Francisco - Last Filed: 05/27/20 16:03> Assessment and Plan - Plan Impression: Anemia of chronic disease: Acute kidney injury: Fall injury likely secondary to weakness from anemia: History of chronic UTI currently on antibiotics: Hyperlipidemia: Essential hypertension: Anxiety: Plan: Anemia of chronic disease: Patient has a history of chronic anemia, chronic urinary tract infection currently on 2 antibiotics. In the emergency room patient was noted to have a decreased hemoglobin/hematocrit of 6.2/19.0. In the past her lowest hemoglobin was 7.2 in March of this year. Prior to that patient showed chronic anemia that did not require transfusion. Patient will be transfused 2 units PRBCs. They have been ordered in the ED and will continue through this admission. She is seen by PCP Panchito Solorzano MD. We will monitor daily labs. Acute kidney injury: April 29, 2020 of this year patient's creatinine was 1.22. Today creatinine of 1.8. Patient may be slightly dehydrated. States that she has not been eating or drinking much but has not told her . We will continue gentle IV hydration. Will monitor creatinine levels. Will consult Nephrology and follow recommendations. Fall injury likely secondary to weakness from anemia: Likely secondary to anemia. Will continue fall precautions. Will order physical therapy evaluation. Patient may benefit from some home health physical therapy. She may also regained some strength after improving her blood levels. History of chronic UTI currently on antibiotics: Urine culture from 04/03/2020 showing enterobacter aerogeneses resistant to multiple antibiotics. Will await results of current urine culture. Patient is taking oral vancomycin and Bactrim at home. Have not been able to verify if patient is currently taking these antibiotics or not. Hyperlipidemia: Will resume home medications. Essential hypertension: Will resume home medications. Monitor blood pressure. Anxiety: Patient has a history of chronic anxiety. Patient gets agitated easily. Will resume home medications. Discharge Plan: Home Plan to discharge in: 48 Hours - Advance Directives Does patient have a Living Will: Yes Does patient have a Durable POA for Healthcare: Yes - Code Status/Comfort Care Code Status Assessed: Yes <Simon Francisco - Last Filed: 05/27/20 16:03> Physician Review Additional Text: Patient was seen and examined and findings were discussed on 05/27/2020 Agree with the assessment and plan as documented by the ANTHONY <Andrea Morales - Last Filed: 05/28/20 16:39>
[2020-05-27] MEDS ORDERED: FENTANYL CITR 100 MCG/2 ML ONE (16:21)
[2020-05-27] MEDS: HEPARIN 5000 UNIT/ML 1 ML VIAL SQ SCH (17:00)
[2020-05-27 17:15] VITALS: BMI 22.4
[2020-05-27] MEDS ORDERED: NA CHLORIDE 0.9% 250 ML ONE ×2 (18:20→23:06)
[2020-05-27] MEDS ORDERED: PNEUMOCOCCAL VACCINE 0.5 ML IMVAC ONE (21:00)
[2020-05-27] MEDS ORDERED: clonazePAM 1 MG TAB PO SCH (21:00)
[2020-05-27] MEDS: NA CHLORIDE 0.9% 1,000 ML IV SCH (21:37)
[2020-05-27 23:05] VITALS: O2SAT 98
[2020-05-27 23:37] LABS: Urine Protein/Creatinine Ratio 0.42 ratio (<0.15)
[2020-05-27 23:38] LABS: Urine Appearance CLOUDY; Urine Blood TRACE (NEG); Urine Color ORANGE; Urine Glucose NEGATIVE (NEG); Urine Microscopic Reflex ORDER UMIC; Urine Protein NEGATIVE (NEG); Urine pH 5.5 (5.0-7.0)
[2020-05-27 23:54] LABS: Urine Bilirubin 1+ (NEG)
[2020-05-28 00:15] LABS: Urine Bacteria 20-50 /HPF (<20); Urine Culture Reflex Order NOT NEEDED; Urine RBC <5 /HPF (NONE SEEN)
[2020-05-28] MEDS: HEPARIN 5000 UNIT/ML 1 ML VIAL SQ SCH ×2 (00:37→08:32)
[2020-05-28] MEDS ORDERED: FENTANYL CITR 100 MCG/2 ML IV ONE (04:09)
[2020-05-28 04:11] LABS: Absolute Lymphocytes (CBC) 0.6 K/uL (0.7-4.9); Hematocrit 23.4 % (36.0-45.0); Lymphocytes % 12.8 % (15.3-44.8); MPV 7.9 fL (7.6-11.3); RBC Red Blood Cell Count 2.65 M/uL (3.86-4.86)
[2020-05-28 04:31] LABS: Potassium 4.3 mmol/L (3.5-5.1)
[2020-05-28 04:32] LABS: Albumin 2.5 g/dL (3.4-5.0); Magnesium 1.5 mg/dL (1.8-2.4); Phosphorus 4.2 mg/dL (2.5-4.9); Uric Acid 5.7 mg/dL (2.6-6.0)
[2020-05-28] MEDS: NA CHLORIDE 0.9% 1,000 ML IV SCH (06:51)
[2020-05-28] MEDS ORDERED: Oxycodone HCl/Acetaminophen 1 TAB TAB PO PRN (07:36)
[2020-05-28] MEDS ORDERED: LEVOTHYROXINE SOD 0.088 MG TAB PO SCH (07:45)
[2020-05-28] MEDS ORDERED: ONDANSETRON 4 MG/2 ML VIAL IV PRN (08:04)
[2020-05-28] MEDS ORDERED: NA CHLORIDE 0.9% 1,000 ML IV SCH (08:41)
[2020-05-28] MEDS ORDERED: PANTOPRAZOLE 40MG TABLET PO SCH ×2 (09:00)
[2020-05-28] MEDS ORDERED: hydroCHLOROthiazide 12.5 MG CAP PO SCH (09:00)
[2020-05-28] MEDS ORDERED: ASPIRIN EC 81 MG TAB PO SCH (09:00)
[2020-05-28] MEDS ORDERED: LOSARTAN POTASSIUM 50 MG TABLET PO SCH (09:00)
[2020-05-28] MEDS ORDERED: HOME MED 1 EA UNK (Omeprazole [Prilosec] 40 MG) PO SCH (09:00)
[2020-05-28] MEDS ORDERED: CEFTRIAXONE/SWI 1gm 1 GM/10 ML SYR IV SCH (09:00)
[2020-05-28] MEDS ORDERED: TAMSULOSIN 0.4 MG SR CAP PO SCH (09:00)
[2020-05-28] MEDS ORDERED: MAGNESIUM SULFATE 1 gm IVPB 1 GM/100 ML BAG IV ONE (09:00)
--- NOTE | 2020-05-28 13:04 | P.DS ---
Admission Date: 05/27/20 Discharge Date: 05/28/20 Primary Care Provider: Panchito Solorzano Reason for Admission: Anemia Procedures: CT head neck chest abdomen pelvis - negative for acute fractures. Brief History of Present Illness: 74-year-old female brought to the emergency room by her with complaints of fall injury. Patient states that she felt weak and that she fell landing on her left-sided. Patient denies loss of consciousness. Fall injury occurred prior to arrival to the ED and patient was brought via EMS. In the emergency room imaging showed no acute fractures. CT head and neck spine chest abdomen pelvis showing no acute traumatic abnormalities involving the chest abdomen or pelvis. No cervical fracture. Chest x-ray showing no acute abnormalities. Pelvis x-ray showing old right femoral fracture with pins in place. Lab work showed a decreased hemoglobin hematocrit of 6.2/19.0. This is a new finding for the patient. Prior lowest hemoglobin was 7.2. On 04/04/2020. She does have a history of chronic anemia. Emergency room order 2 units PRBCs to be transfused on this admission. She was also noted to have an elevated creatinine level of 1.8. Prior creatinine level of 1.22 was noted on 2019. On physical exam patient is anxious and agitated. Per family member patient has a history of anxiety. She is on clonazepam 1 mg as needed. Patient is also complaining of left-sided pain. She is also agitated stating that she has not eaten but has not told her about it. She is a poor historian and may have some underlying undiagnosed dementia. Patient will be placed in observati on and further evaluated. Hospital Course: During this hospital course patient was admitted for anemia. She is found to have a low H&H on admission. She was transfused 2 units PRBCs which she tolerated well. This morning patient's H&H is 8.0/23.4. Platelets are 103 and her magnesium was replaced. Patient has a history of chronic disease including renal disease. She has no signs and symptoms of active bleeding. Patient denies any bloody stools. Patient has been anemic dating back to August of 2016. Patient originally presented to the emergency room complaining of left-sided pain after a ground level fall. Imaging showed no acute fractures. Patient states she feels bruised and is sore and is afraid of falling. Patient and family were offered home health with physical therapy to help the patient but family refused. We did certified alcohol and drug counselor patient on fall precautions. Verbalized understanding. Also during this admission patient was noted to have a urinary tract infection. UA was positive for leukocyte esterase and nitrites. Patient has a history of chronic urinary tract infections. She is currently taking vancomycin and Bactrim at home. Prior urine culture was growing Enterobacter aeruginosa that is resistant to multiple antibiotics. Patient is instructed to continue taking her antibiotics as prescribed. Patient is stable and can be discharged home today. <Simon Francisco - Last Filed: 05/28/20 14:19> Admission Date: 05/27/20 Discharge Date: 05/28/20 <Andrea Mroales - Last Filed: 05/28/20 16:37> Disposition: ROUTINE DISCHARGE Discharge Condition: GOOD Vital Signs/Physical Exam: Temp Pulse Resp BP Pulse Ox 98 F 66 18 143/63 H 98 05/28/20 08:00 05/28/20 08:00 05/28/20 08:32 05/28/20 08:00 05/28/20 08:32 General: Alert, In no apparent distress, Oriented x3 HEENT: Atraumatic, Normocephalic, PERRLA Neck: Supple, Other (Trachea midline) Respiratory: Clear to auscultation bilaterally, Normal air movement Cardiovascular: No edema, Normal pulses, Regular rate/rhythm Capillary refill: <2 Seconds Gastrointestinal: Normal bowel sounds, Soft and benign, Non-distended Musculoskeletal: No swelling, No contractures, No erythema Integumentary: No breakdown, No significant lesion, No erythema Neurological: Normal speech, Normal strength at 5/5 x4 extr, Normal tone Other Physical/Emotional Findings: Lives at home with . Laboratory Data at Discharge: WBC 4.3 K/uL (4.3-10.9) D 05/28/20 03:53 Hgb 8.0 g/dL (12.0-15.0) L 05/28/20 03:53 Hct Cancelled 05/28/20 Unknown Plt Count 103 K/uL (152-406) L D 05/28/20 03:53 PT 12.0 SECONDS (9.2-12.8) 05/27/20 14:10 INR 1.01 05/27/20 14:10 Sodium 141 mmol/L (136-145) 05/28/20 03:53 Potassium 4.3 mmol/L (3.5-5.1) 05/28/20 03:53 BUN 17 mg/dL (7-18) 05/28/20 03:53 Creatinine 1.62 mg/dL (0.55-1.3) H 05/28/20 03:53 Glucose 70 mg/dL (74-106) L 05/28/20 03:53 Uric Acid 5.7 mg/dL (2.6-6.0) 05/28/20 03:53 Phosphorus 4.2 mg/dL (2.5-4.9) 05/28/20 03:53 Magnesium 1.5 mg/dL (1.8-2.4) L 05/28/20 03:53 Total Bilirubin 0.7 mg/dL (0.2-1.0) 05/27/20 14:10 AST 29 U/L (15-37) 05/27/20 14:10 ALT 13 U/L (12-78) 05/27/20 14:10 Alkaline Phosphatase 97 U/L (45-117) 05/27/20 14:10 <Simon Francisco - Last Filed: 05/28/20 14:19> Vital Signs/Physical Exam: Temp Pulse Resp BP Pulse Ox 97 F 69 18 105/51 L 97 05/28/20 12:00 05/28/20 12:00 05/28/20 12:00 05/28/20 12:00 05/28/20 12:00 Laboratory Data at Discharge: WBC 4.3 K/uL (4.3-10.9) D 05/28/20 03:53 Hgb 8.0 g/dL (12.0-15.0) L 05/28/20 03:53 Hct Cancelled 05/28/20 Unknown Plt Count 103 K/uL (152-406) L D 05/28/20 03:53 PT 12.0 SECONDS (9.2-12.8) 05/27/20 14:10 INR 1.01 05/27/20 14:10 Sodium 141 mmol/L (136-145) 05/28/20 03:53 Potassium 4.3 mmol/L (3.5-5.1) 05/28/20 03:53 BUN 17 mg/dL (7-18) 05/28/20 03:53 Creatinine 1.62 mg/dL (0.55-1.3) H 05/28/20 03:53 Glucose 70 mg/dL (74-106) L 05/28/20 03:53 Uric Acid 5.7 mg/dL (2.6-6.0) 05/28/20 03:53 Phosphorus 4.2 mg/dL (2.5-4.9) 05/28/20 03:53 Magnesium 1.5 mg/dL (1.8-2.4) L 05/28/20 03:53 Total Bilirubin 0.7 mg/dL (0.2-1.0) 05/27/20 14:10 AST 29 U/L (15-37) 05/27/20 14:10 ALT 13 U/L (12-78) 05/27/20 14:10 Alkaline Phosphatase 97 U/L (45-117) 05/27/20 14:10 <Andrea Morales - Last Filed: 05/28/20 16:37> Patient Discharge Instructions: Instruct patient on fall precautions. Family refused home health PT. Instruct patient that we will not be sending her with no medications. Continue home antibiotics as well for her chronic UTI. Patient's outpatient psychiatric appointment is set. Diet: Regular Activity: Fall precautions Time spent managing pt's care (in minutes): 55 <Simon Francisco - Last Filed: 05/28/20 14:19> Physician Review: Patient Assessed, Agree with Above Assessment and Plan (Patient was seen and examined and findings were discussed Agree with the assessment and plan as documented by the ANTHONY) <Andrea Morales - Last Filed: 05/28/20 16:37> Home Medications: Levothyroxine [Synthroid*] 88 mcg PO DAILY 02/06/20 Omeprazole [Prilosec] 40 mg PO DAILY 02/06/20 clonazePAM [Clonazepam] 1 mg PO BEDTIME 02/06/20 Oxycodone HCl/Acetaminophen [Oxycodon-Acetaminophen 7.5-325] 1 each PO QIDP PRN 02/25/20 Losartan Potassium 100 mg PO DAILY 04/03/20 hydroCHLOROthiazide [Hydrochlorothiazide*] 12.5 mg PO DAILY 05/28/20
[2020-05-28 15:19] VITALS: BP 105/51; TEMP 97
--- NOTE | 2020-05-28 21:43 | CON ---
Date of Consultation: 05/28/2020 Additional Consulting Physician: Dr. Andrew Mendez. Reason For Consultation: Elevated BUN and creatinine, hypertension, and fluid management. History Of Present Illness: This is a pleasant 74-year-old female, well known to me from the office with significant past medical history of hypertension, recurrent UTI, B-cell lymphoma, the patient re cently admitted to the hospital back in January with acute kidney injury secondary to prerenal. At thi s time, the patient had a fall and upon arrival to the hospital, found to have low blood pressure, el evated BUN and creatinine. For that reason, we have been consulted. The patient was started on IV h ydration on arrival to the hospital. Creatinine was 1.8, after hydration creatinine 1.6, GFR up to 3 1. Past Medical History: Includes: 1.Hypertension. 2.Hyperlipidemia. 3.B-cell lymphoma. 4.Recurrent UTI. Allergies: TO CHLORPROMAZINE. Home Medication: Includes: 1.Metoprolol. 2.Oxycodone. 3.Fluconazole. 4.Losartan. 5.Hydrochlorothiazide. 6.Omeprazole. 7.Levothyroxine. Social History: Lives with . Denies smoking. Denies drinking. Denies drug abuse. Past Surgical History: Includes: 1.Hysterectomy. 2.Cholecystectomy. 3.Gastric repair. 4.Knee surgery. 5.PermCath placement. 6.Shoulder surgery. 7.Tonsillectomy. Family History: Positive for hypertension and coronary artery disease. Review of Systems: Head and Neck: No red eye. No ear pain. GI: Has nausea, decreased intake. : No polyuria, no dysuria, no hematuria. Mobile Home Mechanic: No vaginal discharge. Respiratory: No shortness breath. Cardiovascular: Has fall. Musculoskeletal: Has low back pain. Neuro: Has fall. Physical Examination: Vital Signs: When I saw the patient, the patient was a little bit sleepy. Blood pressure of 105/51, pulse of 69. Chest: Clear to auscultation. Heart: S1, S2 regular. Abdomen: Soft, nontender. Extremities: No edema. Neuro: Alert. No focality, pain. Laboratory Data: Sodium 141, potassium 4.3, bicarb 23, BUN 17, creatinine 1.6, calcium of 8. WBC 4. 3, H and H 8/23.4, platelet 103. Assessment And Plan: 1.Acute kidney injury secondary to prerenal superimposed with losartan and hydrochlorothiazide on re covery. I am going to continue hydration. Discontinue losartan, hydrochlorothiazide. 2.Hypertension, currently blood pressure on the lower side with the presence of acute kidney injury. Discontinue losartan and hydrocodone or a thiazide. 3.Fall as by primary. JONATHAN Voice ID: [id number] Report ID: [id number]
--- NOTE | 2020-05-29 07:36 | EKG ---
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
== END 2020-05-28 15:04 | disposition home or self-care (01) ==
LOC: ER 12:19 → ERHOLD 15:41 → 2ND 20:12
PROVIDERS: ADMIT Family Medicine; ATTEND Family Medicine
DX: N17.9 Acute kidney failure, unspecified (principal); D63.8 Anemia in other chronic diseases classified elsewhere; R10.9 Unspecified abdominal pain; W19.XXXA Unspecified fall, initial encounter; N39.0 Urinary tract infection, site not specified; Z11.59 Encounter for screening for other viral diseases; E78.5 Hyperlipidemia, unspecified; F41.9 Anxiety disorder, unspecified; E03.9 Hypothyroidism, unspecified; M81.0 Age-related osteoporosis without current pathological fracture; Z23 Encounter for immunization; I10 Essential (primary) hypertension; Z79.2 Long term (current) use of antibiotics; Z79.899 Other long term (current) drug therapy; Z85.72 Personal history of non-Hodgkin lymphomas; Z98.84 Bariatric surgery status
CPT/HCPCS: 36430 ×2; 93005; 87040 ×2; 87088; 85025 ×2; 87086; 80048; 36415; 86900; 83735 ×2; 86850; 85610; 82565; 86901; 80076; 84550; 83605; 80069; 87077; 87186; 82570; 84484; 84145; 83880; 84156; 70450; 71250; 72125; 71045; 72170; 90471; 90670; 97162; 94760 ×2; 51702; 96375; 96374; 99285; U0002; J1644; J3010 ×2; J3475; J0696 ×2; G0378 ×2; P9016 ×2; J7050 ×2; J7030 ×3; J2405; 81003; 81015

== ENCOUNTER 2020-08-15 14:18 | Emergency (ER) | payer OTHER, BC ==
--- OUTSIDE RECORDS SUMMARY | 2020-08-15 14:22 | XMS REPORT | Clinical Summary ---
:1945 Author Organization [facility] Address [address] [place] [address] Care Team Providers Name Role Phone Evans [...] 0 Active (ANTIVERT) 25 MG mouth 3 tablet (three) times daily as needed. levothyroxine Take 88 mcg by 0 A ctive (SYNTHROID, mouth Every LEVOTHROID) 88 MCG morning on an tablet empty stomach. losartan 12.5 MG Take 50 mg by 0 Active halftab half mouth daily. tablet melatonin 3 mg Tab Take 10 mg by 0 Active tablet mouth 2 (two) times daily as needed. methen-m.blue-s.ph Take 1 capsule 0 Active qv-tcpod-pvo by mouth (URIBEL) daily. 118-10-40.8-36 mg Cap simvastatin Take 20 mg by 0 Acti ve (ZOCOR) 20 MG mouth nightly. tablet pantoprazole Take 20 mg by 0 Act luis carlos (PROTONIX) 20 MG mouth daily. tablet omeprazole Take 40 mg by 0 Activ e (PRILOSEC) 40 MG mouth daily. capsule conjugated Place 0.5 g 0 Active estrogens vaginally 3 (PREMARIN) 0.625 (three) times mg/gram vaginal a week at cream bedtime MON/WED/FRI. mirabegron Take by mouth 0 Activ e (MYRBETRIQ) 50 mg daily. Tb24 ER tablet NIFEdipine Take 30 mg by 0 Activ e (PROCARDIA-XL) 30 mouth daily. MG (OSM) 24 hr tablet oxyCODONE-acetamin Take 1 tablet 0 Active ophen (PERCOCET) by mouth every 7.5-325 mg per 8 (eight) tablet hours as needed for Pain. nystatin Apply 0 Active (MYCOSTATIN) topically 2 100,000 unit/gram (two) times cream daily. vancomycin Inject 1,250 0 Discon tinued (VANCOCIN) 1250 mg mg 0 ( Stop Taking at in D5W 250 mL intravenously. D ischarge) (V2B) IVPB tamsulosin Take 0.4 mg by 0 Disc ontinued (FLOMAX) 0.4 mg mouth daily. 0 ( Stop Taking at Cap 24 hr capsule Di scharge) fluconazole Take 200 mg by 0 Dis continued (DIFLUCAN) 200 MG mouth daily. 0 (Stop Taking at tablet Discharge) traMADol (ULTRAM) Take 50 mg by 0 11/06/19 2 Discontinued 50 mg tablet mouth every 6 0 (Re order) (six) hours as needed for Pain. potassium chloride Take 20 mEq by 0 Discontinued SA mouth 2 (two) 0 (Stop Taking at (K-DUR,KLOR-CON) times daily. Discharge) 20 MEQ tablet fluconazole Take 1 tablet 7 tablet 0 11/07/2019 Exp ired (DIFLUCAN) 200 MG (200 mg total) 0 tablet by mouth daily for [address] 1 patch 30 patch 0 11/06/2019 Expir ed (LIDODERM) 5 % onto the skin 0 patch daily for 30 days Remove & Discard patch within 12 hours or as directed by . traMADol (ULTRAM) Take 1 tablet 30 tablet [...] Lab 11/02/2019 - Hospital Encounter General Internal Hector Rosenthal, initial encounter (Primary Dx); 11/07/2019 Medicine Dusty [...] Acute cystitis with hematuria 11/02/2019 Travel after 08/15/2019 Social History Tobacco Use Types Packs/Day Years Used Date Unknown If Ever Smoked Sex Assigned at Date Recorded Not on file Last Filed Vital Signs Vital Sign Reading Time Taken Comments Blood Pressure 120/61 11/07/2019 8:32 AM [facility] Pulse 86 11/07/2019 8:45 AM [facility] Temperature 36.8 C (98.2 F) 11/07/2019 8:32 AM [facility] Respiratory Rate 18 11/07/2019 8:45 AM [facility] Oxygen Saturation 98% 11/07/2019 8:45 AM [facility] Inhaled Oxygen Concentration 21% 11/07/2019 8:45 AM [facility] Weight 80 kg (176 lb 6.4 oz) 11/02/2019 10:27 PM [facility] Height 165.1 cm (5' 5") 11/02/2019 10:27 PM [facility] Body Mass Index 29.35 11/02/2019 10:27 PM [facility] Plan of Treatment Health Maintenance Due Date Last Done Comments BREAST CANCER SCREENING 1945 COLON CANCER SCREENING COLONOSCOPY 1945 PNEUMOCOCCAL 65+ YRS (1 of 1 - [id number]) 2012 MEDICARE ANNUAL WELLNESS (YEAR 2 or FIRST YEAR if no 08/01/2013 IPPE) INFLUENZA VACCINE (#1) 2020 Procedures Procedure Name Priority Date/Time Associated Comments Diagnosis SARS-COV2/RT-PCR ([facility] Routine 04/03/2020 4:28 R esults for this & REF LABS) PM CDT procedure are i n the results section. RHYTHM STRIP - SCAN 11/08/2019 2:54 PM [facility] RHYTHM STRIP - SCAN 11/07/2019 4:12 PM [facility] MR LUMBAR SPINE Routine 11/06/2019 9:12 Results for this WITHOUT IV CONTRAST AM [facility] procedur e are in the results section. CBC W/PLT COUNT & AUTO Routine 11/06/2019 3:51 R esults for this DIFFERENTIAL AM [facility] procedure are i n the results section. COMPREHENSIVE Routine 11/06/2019 3:51 Results fo r this METABOLIC PANEL AM [facility] procedure ar e in the results section. CBC W/PLT COUNT & AUTO Routine 11/06/2019 3:51 R esults for this DIFFERENTIAL AM [facility] procedure are i n the results section. CBC W/PLT COUNT & AUTO Routine 11/05/2019 4:25 R esults for this DIFFERENTIAL AM [facility] procedure are i n the results section. COMPREHENSIVE Routine 11/05/2019 4:25 Results fo r this METABOLIC PANEL AM [facility] procedure ar e in the results section. CBC W/PLT COUNT & AUTO Routine 11/05/2019 4:25 R esults for this DIFFERENTIAL AM [facility] procedure are i n the results section. CBC W/PLT COUNT & AUTO Routine 11/04/2019 4:09 R esults for this DIFFERENTIAL AM [facility] procedure are i n the results section. COMPREHENSIVE Routine 11/04/2019 4:09 Results fo r this METABOLIC PANEL AM [facility] procedure ar e in the results section. CBC W/PLT COUNT & AUTO Routine 11/04/2019 4:09 R esults for this DIFFERENTIAL AM [facility] procedure are i n the results section. CBC W/PLT COUNT & AUTO STAT 11/03/2019 5:23 R esults for this DIFFERENTIAL AM [facility] procedure are i n the results section. HEMOGLOBIN A1C STAT 11/03/2019 5:23 Results f or this AM [facility] procedure are i n the results section. CBC W/PLT COUNT & AUTO STAT 11/03/2019 5:23 R esults for this DIFFERENTIAL AM [facility] procedure are i n the results section. CT THORACIC SPINE STAT 11/02/2019 9:29 Result s for this WITHOUT IV CONTRAST PM [facility] procedur e are in the results section. CT LUMBAR SPINE STAT 11/02/2019 9:29 Results for this WITHOUT IV CONTRAST PM [facility] procedur e are in the results section. BASIC METABOLIC PANEL STAT 11/02/2019 8:39 Re sults for this (7) PM [facility] procedure are i n the results section. CBC W/PLT COUNT & AUTO STAT 11/02/2019 8:17 R esults for this DIFFERENTIAL PM [facility] procedure are i n the results section. CBC W/PLT COUNT & AUTO STAT 11/02/2019 8:17 R esults for this DIFFERENTIAL PM [facility] procedure are i n the results section. URINALYSIS W/ STAT 11/02/2019 8:02 Results fo r this MICROSCOPIC PM [facility] procedure are i n the results section. URINE CULTURE STAT 11/02/2019 8:02 Results fo r this PM [facility] procedure are i n the results section. XR SPINE LUMBAR 1 VIEW STAT 11/02/2019 7:34 R esults for this PM [facility] procedure are i n the results section. after 08/15/2019 Results SARS-CoV2/RT-PCR ([facility] & Ref Labs) (04/03/2020 4:28 PM CDT) SARS-COV2/RT-PCR Not Detected Not Detected, [facility] Negative [facility]OV[facility]2 [facility] Specimen Other - Nasopharyngeal wall structure (b joss structure) Narrative Performed At Negative results do not preclude SARS-CoV-2 [facility] infection and should not be used as [...] the Act. Fact Sheet for Healthcare Providers: https://www.[employer]/Documents/Xpert%20Xpre ss%20SARS%20CoV-2/Fact%20Sheets/302-3802%20SAR S-COV-2%20HEALTHCARE%20PROVIDERS%20FACT%20SHEE T.pdf Fact Sheet for Healthcare Patients: https://www.[employer]/Documents/Xpert%20Xpre ss%20SARS%20CoV-2/Fact%20Sheets/302-3801%20SAR S-COV-2%20PATIENT%20FACT%20SHEET.pdf Performing Laboratory: [address] [place] [address] Performing Organization Address City/State/Zipcode Phone Number [facility] [address] [place] [phone] CENTER RHYTHM STRIP - SCAN (11/08/2019 2:54 PM [facility])Only the most recent of2 results within the time period is included. Narrative Performed At This result has an attachment that is no t available. MR spine lumbar without IV contrast (11/06/2019 9:12 AM [facility]) Specimen Narrative Performed At FINAL REPORT [facility] MR, SPINE, LUMBAR, WITHOUT CONTRAST INDICATION: Eval [...] stenosis, which may result in radiculopathy. Signed: Charis, Sophie MD Report Verified Date/Time: 11/06/2019 09:31:56 Reading Location: [facility] Radiolog y Reading Room Procedure Note Interface, External Ris In - 11/06/2019 9:34 AM [facility] FINAL REPORT MR, SPINE, LUMBAR, WITHOUT CONTRAST [...] Verified Date/Time: 11/06/2019 0 9:31:56 Reading Location: [facility] Radiolog y Reading Room Performing Organization Address City/State/Zipcode Phone Number [facility] CBC with platelet count + automated diff (11/06/2019 3:51 AM [facility])Only the most recent of5 resultswithin the time period is included. Pathologist [facility] nature WBC 4.4 4.0 - 10.0 [facility] RBC 3.13 (L) 4.00 - 5.00 [facility] Hemoglobin 10.0 (L) 12.0 - 15.5 [facility] GM[facility]DL [facility] Hematocrit 30.2 (L) 36.0 - 46.0 % [facility] MCV 96.5 82.0 - 99.0 fL [facility] MCH 31.9 27.0 - 33.0 pg [facility] MCHC 33.1 32.0 - 36.0 [facility] RDW 13.3 12.0 - 15.0 % [facility] Platelets 129 (L) 150 - 430 K/CU [facility] MM [facility] MPV 9.3 6.0 - 11.5 fL [facility] nRBC 0 0 - 0 /100 WBC [facility] % Neutros 62 % [facility] % Lymphs 15 % [facility] % Monos 16 % [facility] % Eos 5 % [facility] % Baso 1 % [facility] # Neutros 2.72 1.80 - 8.00 [facility] # Lymphs 0.65 (L) 1.48 - 4.50 [facility] # Monos 0.71 0.00 - 1.30 [facility] # Eos 0.23 0.00 - 0.50 [facility] # Baso 0.05 0.00 - 0.20 [facility] Immature 1 (H) 0 - 0 % [facility] Granulocytes-Relativ [facility] e Specimen Blood Performing Organization Address City/State/Zipcode Phone Number [facility] [address] [place], [place] [phone] Comprehensive metabolic panel (11/06/2019 3:51 AM [facility])Only the most recent of3 resultswithin the time period is included. Protein, Total 5.1 (L) 6.0 - 8.5 [facility] gm/dL [facility] Albumin 3.2 (L) 3.5 - 5.0 [facility] g/dL [facility] Alkaline 84 30 - 115 U/L [facility] Phosphatase [facility] Total Bilirubin 0.3 0.1 - 1.2 [facility] mg/dL [facility] Sodium 142 135 - 148 [facility] meq/L [facility] Potassium 3.6 3.6 - 5.5 [facility] meq/L [facility] Chloride 106 98 - 106 [facility] meq/L [facility] CO2 29 20 - 29 meq/L [facility] BUN 5 (L) 10 - 26 mg/dL [facility] Creatinine 0.71 0.50 - 1.20 [facility] mg/dL [facility] Glucose 70 70 - 110 [facility] mg/dL [facility] Calcium 9.3 8.5 - 10.5 [facility] mg/dL [facility] AST 17 5 - 40 U/L [facility] ALT 10 5 - 50 U/L [facility] EGFR 81Comment: mL/min/1.73 [facility] ESTIMATED GFR IS sq m LABORATORY NOT ACCURATE CREATININE CLEARANCE IN PREDICTING GLOMERULAR FILTRATION RATE. ESTIMATED GFR IS NOT APPLICABLE FOR DIALYSIS PATIENTS. Specimen Blood Performing Organization Address City/State/Zipcode Phone Number [facility] [address] [place], [place] [address] Hemoglobin A1c (11/03/2019 5:23 AM [facility]) Pathologist Sig nature Hemoglobin A1C <3.7 (L) 4.3 - 6.1 % [facility] Specimen Blood Performing Organization Address City/State/Zipcode Phone Number [facility] [address] [place], [place] [address] CT spine lumbar without IV contrast (11/02/2019 9:29 PM [facility]) Specimen Narrative Performed At FINAL REPORT [facility] CT, SPINE, LUMBAR, WO CONTRAST, CT, SPIN [...] to retropulsed posterior cortical margin (possibly chronic). Chemical Librarian nicity could be better characterized by MRI lumbar spine. Moderate thoracic and moderate to severe lumbar spondylosis, described above. Small right pleural effusion and bilater al pulmonary airspace disease, pulmonary contusion/hemorrhage and hemothorax or considerations in the setting of trauma. Additional chronic findings discussed ab ove. Signed: Bigg Philippe MD Report Verified Date/Time: 11/02/2019 22:26:12 Procedure Note Interface, External Ris In - 11/02/2019 10:28 PM [facility] FINAL REPORT CT, SPINE, LUMBAR, WO CONTRAST, [...] to retropulsed posterior cortical margin (possibly chronic). Chemical Librarian nicity could be better characterized by MRI lumbar spine. Moderate thoracic and moderate to severe lumbar spondylosis, described above. Small right pleural effusion and bilater al pulmonary airspace disease, pulmonary contusion/hemorrhage and hemothorax or considerations in the setting of trauma. Additional chronic findings discussed ab ove. Signed: Bigg Philippe MD Report Verified Date/Time: 11/02/2019 2 2:26:12 Performing Organization Address City/State/Zipcode Phone Number [facility] CT spine thoracic without IV contrast (11/02/2019 9:29 PM [facility]) Specimen Narrative Performed At FINAL REPORT [facility] CT, SPINE, LUMBAR, WO CONTRAST, CT, SPIN [...] to retropulsed posterior cortical margin (possibly chronic). Chemical Librarian nicity could be better characterized by MRI lumbar spine. Moderate thoracic and moderate to severe lumbar spondylosis, described above. Small right pleural effusion and bilater al pulmonary airspace disease, pulmonary contusion/hemorrhage and hemothorax or considerations in the setting of trauma. Additional chronic findings discussed ab ove. Signed: Bigg Philippe MD Report Verified Date/Time: 11/02/2019 22:26:12 Procedure Note Interface, External Ris In - 11/02/2019 10:28 PM [facility] FINAL REPORT CT, SPINE, LUMBAR, WO CONTRAST, [...] to retropulsed posterior cortical margin (possibly chronic). Chemical Librarian nicity could be better characterized by MRI [...] Glu, Ca, BUN, Cr) (11/02/2019 8:39 PM [facility]) Sodium 139 135 - 148 meq/L [facility] Potassium 3.7 3.6 - 5.5 meq/L [facility] Chloride 107 (H) 98 - 106 meq/L [facility] CO2 25 20 - 29 meq/L [facility] BUN 7 (L) 10 - 26 mg/dL [facility] Creatinine 0.69 0.50 - 1.20 [facility] mg/dL [facility] Glucose 94 70 - 110 mg/dL [facility] Calcium 8.8 8.5 - 10.5 [facility] mg/dL [facility] EGFR 84Comment: ESTIMATED mL/min/1.73 sq [facility] GFR IS NOT m LAB[facility]ORY ACCURATE CREATININE CLEARANCE IN PREDICTING GLOMERULAR FILTRATION RATE. ESTIMATED GFR IS NOT APPLICABLE FOR DIALYSIS PATIENTS. Specimen Blood Performing Organization Address City/State/Zipcode Phone Number [facility] [address] [place], [place] [address] Urinalysis w/Microscopic (11/02/2019 8:02 PM [facility]) Color, UA Green [facility] Clarity, UA Cloudy [facility] Specific [place], 1.020 1.001 - 1.035 [facility] UA [facility] pH, UA 6.5 5.0 - 8.0 [facility] Protein, UA 100 mg/dL (A) Negative [facility] Glucose, UA Negative Negative [facility] Ketones, UA Trace (A) Negative [facility] Bilirubin, UA Positive (A) Negative [facility] Blood, UA Moderate (A) Negative [facility] Nitrite, UA Negative Negative [facility] Leukocytes, UA Large (A) Negative [facility] Urobilinogen, UA 0.2 0.2 - 1.0 mg/dL [facility] Bacteria, UA Rare [facility] Yeast Moderate [facility] RBC, UA <5 /HPF [facility] WBC, UA >100 /HPF [facility] SQUAMOUS 5-10 /HPF [facility] EPITHELIAL [facility] Specimen Source [facility] Specimen Urine Performing Organization Address City/State/Zipcode Phone Number [facility] [address] [place], [place] [phone] Urine culture (11/02/2019 8:02 PM [facility]) Pathologist Sig nature Result >100,000 col/mL [facility] Ellen glabrata (A) Specimen Urine - Urine specimen collection, clean catch (procedure) Performing Organization Address City/[facility]/Zipcode Phone Number [facility] [address] [place], [place] [address] XR spine lumbar 1 view (11/02/2019 7:34 PM [facility]) Specimen Narrative Performed At FINAL REPORT GE [...] Niecy Serra MD Report Verified Date/Time: 11/02/2019 19:40:44 Reading Location: [address] Reading Room Procedure Note Interface, External Ris In - 11/02/2019 7:42 PM [facility] FINAL REPORT EXAM: Lumbar spine one view [...] Verified Date/Time: 11/02/2019 1 9:40:44 Reading Location: [facility] C[facility] Reading Room Performing Organization Address City/State/Zipcode Phone Number [facility] after 08/15/2019 Advance Directives For more information, please contact: [phone] Code Status Date Activated Date Inactivated Comments Full Code 11/02/2019 11:07 PM 11/07/2019 5:41 PM This code status was determined by: Patient
--- OUTSIDE RECORDS SUMMARY | 2020-08-15 14:22 | XMS REPORT | Clinical Summary ---
:1945 Author Organization [employer] Address [address] [place] [address] Care Team Providers Name Role Phone Vivek Solorzano MD Primary Care Provider [phone] Allergies Active Allergy Reactions Severity Noted Date [...] (HYDRODIURIL) 12.5 MG mouth daily. 019 tablet conjugated estrogens Insert 0.5 g 0 Discontinued (PREMARIN) 0.625 into the vagina 020 (Stop Taking mg/gram vaginal cream 3 (three) times at Discharge) a week. On Tue. Tue. tuesday gabapentin (NEURONTIN) Take 200 mg by 0 Discontinued 100 mg capsule mouth 3 (three) 019 times a day. meclizine (ANTIVERT) Take 25 mg by 0 10/13 Discontinued 25 mg tablet mouth 3 (three) 019 times a day as needed for dizziness. ergocalciferol Take 50,000 0 Dis continued (VITAMIN D2) 50,000 Units by mouth 019 unit capsule once a week. On mondays docusate sodium Take 100 mg by 0 Discontinued (COLACE) 100 MG mouth daily as 019 capsule needed for constipation. acetaminophen-codeine Take 1-2 15 tablet 0 08/19/20 Discontinued (TYLENOL WITH CODEINE tablets by (Dose #3) 300-30 mg per mouth every 6 adjustment) tabletIndications: (six) hours as acute pain needed for severe pain for up to 15 doses .Acute Pain. ondansetron ODT Take 1 tablet 10 tablet 0 08/19/20 Discontinued (ZOFRAN ODT) 4 MG (4 mg total) by disintegrating tablet mouth every 8 (eight) hours as needed for nausea for up to 10 doses. cephalexin (KEFLEX) Take 1 capsule 14 capsule 0 08/21/2008/01 500 MG capsule (500 mg total) by mouth 2 (two) times a day for 7 days. nitrofurantoin Take 50 mg by 0 D iscontinued (MACRODANTIN) 50 MG mouth daily. 020 (Stop Taking capsule at [facility]) phenazopyridine (AZO Take 1 tablet 0 [...] mouth daily. 020 (Stop Taking ORAL) at [facility]) lidocaine 3 % cream Apply 1 Dose 0 Discontinued topically as 020 (Stop T aking needed. at [facility]) ciprofloxacin (CIPRO) Take 1 tablet 10 tablet 0 10/19/2010/01 500 MG tablet (500 mg total) 019 by mouth 2 [...] clonAZEPAM (KlonoPIN) Take 1 tablet 0 11/01/19 92 1 MG tablet (1 mg total) by [...] Team Description 12/04/2019 Patient Outreach Quality [place] Cabrera RN 12/04/2019 Patient Outreach Quality [place] Cabrera RN 12/01/2019 - Hospital Encounter General Internal Leena Luevano I due to Klebsiella species (Primary Dx); [...] pelvic pain in female; Chronic cystiti s after 08/15/2019 Surgical History Surgery Date Site/Laterality Comments CHOLECYSTECTOMY GASTRIC BYPASS SHOULDER SURGERY Left TOTAL ABDOMINAL HYSTERECTOMY BILATERAL SALPINGOOPHORECTOMY CYSTO STENT INSERTION 06/06/2019 N/A Procedure: Cystoscopy; Surgeon: Barbara Rosales MD; Location: [facility]; Service: Urology ; Laterality: N/A; Medical History Medical History Date Comments Hypertension Disease of thyroid gland Hyperlipidemia Anxiety Cancer (HCC) Basal cell carcinoma (resolved 4 years ago) UTI (urinary tract infection) Neck fracture (HCC) Chronic pain Family History Medical History Relation Name Comments [...] Comments Blood Pressure 120/62 12/04/2019 3:41 PM UNCLAIMED PROPERTY MANAGER Pulse 84 12/04/2019 3:41 PM UNCLAIMED PROPERTY MANAGER Temperature 36.4 C (97.6 F) 12/04/2019 3:41 PM UNCLAIMED PROPERTY MANAGER Respiratory Rate 18 12/04/2019 3:41 PM UNCLAIMED PROPERTY MANAGER Oxygen Saturation 95% 12/04/2019 3:41 PM UNCLAIMED PROPERTY MANAGER Inhaled Oxygen Concentration - - Weight 70.1 kg (154 lb 8 oz) 12/04/2019 4:47 AM UNCLAIMED PROPERTY MANAGER Height 165.1 cm (5' 5") 11/19/2019 7:50 PM UNCLAIMED PROPERTY MANAGER Body Mass Index 25.71 11/19/2019 7:50 PM UNCLAIMED PROPERTY MANAGER Plan of Treatment Health Maintenance Due Date Last Done Comments BREAST CANCER SCREENING 1997 COLONOSCOPY SCREENING 1997 SHINGLES VACCINES (#1) 1997 65+ PNEUMOCOCCAL VACCINE (2 of 2 - PPSV23) 08/20/201208/07 INFLUENZA VACCINE 05/31/2020 08/05/2016, 2015 Implants Implanted Type Area [employer] Attorney Device Identifier Shelf Exp iration Model / Serial Date / Lot Screw Screw Procedures Procedure Name Priority Date/Time Associated Comments Diagnosis ESTIMATED GFR Routine 12/04/2019 7:50 Results fo r this AM UNCLAIMED PROPERTY MANAGER procedure are i n the results section. BASIC METABOLIC PANEL Routine 12/04/2019 7:50 Re sults for this AM UNCLAIMED PROPERTY MANAGER procedure are i n the results section. XR CHEST 1 VW PORTABLE Routine 12/03/2019 7:20 R esults for this AM UNCLAIMED PROPERTY MANAGER procedure are i n the results section. ESTIMATED GFR Routine 12/03/2019 5:20 Results fo r this AM UNCLAIMED PROPERTY MANAGER procedure are i n the results section. BASIC METABOLIC PANEL Routine 12/03/2019 5:20 Re sults for this AM UNCLAIMED PROPERTY MANAGER procedure are i n the results section. URINE CULTURE Routine 12/02/2019 12:53 Results fo r this PM UNCLAIMED PROPERTY MANAGER procedure are i n the results section. URINALYSIS SCREEN AND Routine 12/02/2019 11:30 Re sults for this MICROSCOPY, WITH REFLEX AM UNCLAIMED PROPERTY MANAGER proc edure are in TO CULTURE the results section. AMIKACIN LEVEL, PEAK Routine 12/02/2019 10:15 Res ults for this AM UNCLAIMED PROPERTY MANAGER procedure are i n the results section. AMIKACIN LEVEL, TROUGH Routine 12/02/2019 8:50 R esults for this AM UNCLAIMED PROPERTY MANAGER procedure are i n the results section. US RENAL Routine 12/02/2019 5:59 Results for this AM UNCLAIMED PROPERTY MANAGER procedure are i n the results section. ESTIMATED GFR Routine 12/02/2019 5:10 Results fo r this AM UNCLAIMED PROPERTY MANAGER procedure are i n the results section. URIC ACID LEVEL Routine 12/02/2019 5:10 Results for this AM UNCLAIMED PROPERTY MANAGER procedure are i n the results section. CREATINE KINASE, TOTAL Routine 12/02/2019 5:10 R esults for this (CPK) AM UNCLAIMED PROPERTY MANAGER procedure are i n the results section. COMPREHENSIVE METABOLIC Routine 12/02/2019 5:10 Results for this PANEL AM UNCLAIMED PROPERTY MANAGER procedure are i n the results section. HC COMPLETE BLD COUNT Routine 12/02/2019 5:10 Re sults for this W/AUTO DIFF AM UNCLAIMED PROPERTY MANAGER procedure are i n the results section. CREATININE LEVEL, URINE, Routine 12/01/2019 7:30 Results for this RANDOM PM UNCLAIMED PROPERTY MANAGER procedure are i n the results section. PROTEIN, URINE, RANDOM Routine 12/01/2019 7:30 R esults for this PM UNCLAIMED PROPERTY MANAGER procedure are i n the results section. LACTIC ACID LEVEL, Timed 12/01/2019 7:30 Resul ts for this SEPSIS - NOW AND REPEAT AM UNCLAIMED PROPERTY MANAGER proc edure are in 2X EVERY 3 HOURS the results section. XR CHEST 1 VW PORTABLE STAT 12/01/2019 5:32 R esults for this AM UNCLAIMED PROPERTY MANAGER procedure are i n the results section. URINE CULTURE STAT 12/01/2019 5:27 Results fo r this AM UNCLAIMED PROPERTY MANAGER procedure are i n the results section. BLOOD CULTURE, AEROBIC & Routine 12/01/2019 5:05 Results for this ANAEROBIC AM UNCLAIMED PROPERTY MANAGER procedure are i n the results section. URINALYSIS SCREEN AND STAT 12/01/2019 4:38 Re sults for this MICROSCOPY, WITH REFLEX AM UNCLAIMED PROPERTY MANAGER proc edure are in TO CULTURE the results section. ESTIMATED GFR STAT 12/01/2019 4:35 Results fo r this AM UNCLAIMED PROPERTY MANAGER procedure are i n the results section. LACTIC ACID LEVEL, STAT 12/01/2019 4:35 Resul ts for this SEPSIS - NOW AND REPEAT AM UNCLAIMED PROPERTY MANAGER proc edure are in 2X EVERY 3 HOURS the results section. COMPREHENSIVE METABOLIC STAT 12/01/2019 4:35 Results for this PANEL AM UNCLAIMED PROPERTY MANAGER procedure are i n the results section. PARTIAL THROMBOPLASTIN STAT 12/01/2019 4:35 R esults for this TIME (PTT) AM UNCLAIMED PROPERTY MANAGER procedure are i n the results section. PROTHROMBIN TIME WITH STAT 12/01/2019 4:35 Re sults for this INR AM UNCLAIMED PROPERTY MANAGER procedure are i n the results section. HC COMPLETE BLD COUNT STAT 12/01/2019 4:35 Re sults for this W/AUTO DIFF AM UNCLAIMED PROPERTY MANAGER procedure are i n the results section. BLOOD CULTURE, AEROBIC & Routine 12/01/2019 4:35 Results for this ANAEROBIC AM UNCLAIMED PROPERTY MANAGER procedure are i n the results section. ESTIMATED GFR Routine 11/23/2019 3:25 Results fo r this AM UNCLAIMED PROPERTY MANAGER procedure are i n the results section. BASIC METABOLIC PANEL Routine 11/23/2019 3:25 Re sults for this AM UNCLAIMED PROPERTY MANAGER procedure are i n the results section. HC COMPLETE BLD COUNT Routine 11/23/2019 3:25 Re sults for this W/AUTO DIFF AM UNCLAIMED PROPERTY MANAGER procedure are i n the results section. GASTROINTESTINAL PANEL Routine 11/21/2019 8:46 R esults for this PM UNCLAIMED PROPERTY MANAGER procedure are i n the results section. TROPONIN Timed 11/21/2019 5:20 Results for this PM UNCLAIMED PROPERTY MANAGER procedure are i n the results section. XR CHEST 1 VW PORTABLE Routine 11/21/2019 12:34 R esults for this PM UNCLAIMED PROPERTY MANAGER procedure are i n the results section. ECG 12-LEAD Routine 11/21/2019 11:26 Results for this AM UNCLAIMED PROPERTY MANAGER procedure are i n the results section. TROPONIN Timed 11/21/2019 11:15 Results for this AM UNCLAIMED PROPERTY MANAGER procedure are i n the results section. ESTIMATED GFR Routine 11/21/2019 5:15 Results fo r this AM UNCLAIMED PROPERTY MANAGER procedure are i n the results section. COMPREHENSIVE METABOLIC Routine 11/21/2019 5:15 Results for this PANEL AM UNCLAIMED PROPERTY MANAGER procedure are i n the results section. HC COMPLETE BLD COUNT Routine 11/21/2019 5:15 Re sults for this W/AUTO DIFF AM UNCLAIMED PROPERTY MANAGER procedure are i n the results section. URINE CULTURE Routine 11/20/2019 3:48 Results fo r this PM UNCLAIMED PROPERTY MANAGER procedure are i n the results section. GRAM STAIN Routine 11/20/2019 3:48 Results for this PM UNCLAIMED PROPERTY MANAGER procedure are i n the results section. URINALYSIS SCREEN AND Routine 11/20/2019 3:21 Re sults for this MICROSCOPY, WITH REFLEX PM UNCLAIMED PROPERTY MANAGER proc edure are in TO CULTURE the results section. GASTROINTESTINAL PANEL Routine 11/19/2019 6:25 R esults for this PM UNCLAIMED PROPERTY MANAGER procedure are i n the results section. ESTIMATED GFR STAT 11/19/2019 5:20 Results fo r this PM UNCLAIMED PROPERTY MANAGER procedure are i n the results section. LIPASE LEVEL STAT 11/19/2019 5:20 Results for this PM UNCLAIMED PROPERTY MANAGER procedure are i n the results section. COMPREHENSIVE METABOLIC STAT 11/19/2019 5:20 Results for this PANEL PM UNCLAIMED PROPERTY MANAGER procedure are i n the results section. HC COMPLETE BLD COUNT STAT 11/19/2019 5:20 Re sults for this W/AUTO DIFF PM UNCLAIMED PROPERTY MANAGER procedure are i n the results section. ESTIMATED GFR Routine 11/01/2019 4:25 Results fo r this AM UNCLAIMED PROPERTY MANAGER procedure are i n the results section. HC COMPLETE BLD COUNT Routine 11/01/2019 4:25 Re sults for this W/AUTO DIFF AM UNCLAIMED PROPERTY MANAGER procedure are i n the results section. BASIC METABOLIC PANEL Routine 11/01/2019 4:25 Re sults for this AM UNCLAIMED PROPERTY MANAGER procedure are i n the results section. ESTIMATED GFR Routine 10/31/2019 5:00 Results fo r this AM UNCLAIMED PROPERTY MANAGER procedure are i n the results section. HC COMPLETE BLD COUNT Routine 10/31/2019 5:00 Re sults for this W/AUTO DIFF AM UNCLAIMED PROPERTY MANAGER procedure are i n the results section. BASIC METABOLIC PANEL Routine 10/31/2019 5:00 Re sults for this AM UNCLAIMED PROPERTY MANAGER procedure are i n the results section. ESTIMATED GFR Routine 10/30/2019 4:00 Results fo r this AM UNCLAIMED PROPERTY MANAGER procedure are i n the results section. HC COMPLETE BLD COUNT Routine 10/30/2019 4:00 Re sults for this W/AUTO DIFF AM UNCLAIMED PROPERTY MANAGER procedure are i n the results section. BASIC METABOLIC PANEL Routine 10/30/2019 4:00 Re sults for this AM UNCLAIMED PROPERTY MANAGER procedure are i n the results section. ESTIMATED GFR Routine 10/29/2019 3:10 Results fo r this AM UNCLAIMED PROPERTY MANAGER procedure are i n the results section. HC COMPLETE BLD COUNT Routine 10/29/2019 3:10 Re sults for this W/AUTO DIFF AM UNCLAIMED PROPERTY MANAGER procedure are i n the results section. BASIC METABOLIC PANEL Routine 10/29/2019 3:10 Re sults for this AM UNCLAIMED PROPERTY MANAGER procedure are i n the results section. CT LUMBAR SPINE WO Routine 10/28/2019 2:52 Resul ts for this CONTRAST PM UNCLAIMED PROPERTY MANAGER procedure are i n the results section. ECG 12-LEAD Routine 10/28/2019 9:27 Results for this AM UNCLAIMED PROPERTY MANAGER procedure are i n the results section. GRAM STAIN Routine 10/28/2019 7:31 Results for this AM UNCLAIMED PROPERTY MANAGER procedure are i n the results section. URINE CULTURE Routine 10/28/2019 7:31 Results fo r this AM UNCLAIMED PROPERTY MANAGER procedure are i n the results section. XR SHOULDER 2+ VW RIGHT STAT 10/28/2019 7:11 Results for this AM UNCLAIMED PROPERTY MANAGER procedure are i n the results section. ECG 12-LEAD STAT 10/28/2019 6:22 Results for this AM UNCLAIMED PROPERTY MANAGER procedure are i n the results section. XR PELVIS 1 OR 2 VW STAT 10/28/2019 6:18 Resu lts for this AM UNCLAIMED PROPERTY MANAGER procedure are i n the results section. SMEAR REVIEW STAT 10/28/2019 5:40 Results for this AM UNCLAIMED PROPERTY MANAGER procedure are i n the results section. ESTIMATED GFR STAT 10/28/2019 5:40 Results fo r this AM UNCLAIMED PROPERTY MANAGER procedure are i n the results section. COMPREHENSIVE METABOLIC STAT 10/28/2019 5:40 Results for this PANEL AM UNCLAIMED PROPERTY MANAGER procedure are i n the results section. HC COMPLETE BLD COUNT STAT 10/28/2019 5:40 Re sults for this W/AUTO DIFF AM UNCLAIMED PROPERTY MANAGER procedure are i n the results section. URINALYSIS SCREEN AND Routine 10/28/2019 5:30 Re sults for this MICROSCOPY, WITH REFLEX AM UNCLAIMED PROPERTY MANAGER proc edure are in TO CULTURE the results section. ESTIMATED GFR Routine 10/19/2019 6:30 Results fo r this AM UNCLAIMED PROPERTY MANAGER procedure are i n the results section. BASIC METABOLIC PANEL Routine 10/19/2019 6:30 Re sults for this AM UNCLAIMED PROPERTY MANAGER procedure are i n the results section. HC COMPLETE BLD COUNT Routine 10/19/2019 4:00 Re sults for this W/AUTO DIFF AM UNCLAIMED PROPERTY MANAGER procedure are i n the results section. SMEAR REVIEW Routine 10/18/2019 5:50 Results for this AM UNCLAIMED PROPERTY MANAGER procedure are i n the results section. ESTIMATED GFR Routine 10/18/2019 5:50 Results fo r this AM UNCLAIMED PROPERTY MANAGER procedure are i n the results section. HC COMPLETE BLD COUNT Routine 10/18/2019 5:50 Re sults for this W/AUTO DIFF AM UNCLAIMED PROPERTY MANAGER procedure are i n the results section. BASIC METABOLIC PANEL Routine 10/18/2019 5:50 Re sults for this AM UNCLAIMED PROPERTY MANAGER procedure are i n the results section. ESTIMATED GFR Routine 10/17/2019 5:45 Results fo r this AM UNCLAIMED PROPERTY MANAGER procedure are i n the results section. HC COMPLETE BLD COUNT Routine 10/17/2019 5:45 Re sults for this W/AUTO DIFF AM UNCLAIMED PROPERTY MANAGER procedure are i n the results section. BASIC METABOLIC PANEL Routine 10/17/2019 5:45 Re sults for this AM UNCLAIMED PROPERTY MANAGER procedure are i n the results section. ESTIMATED GFR Routine 10/16/2019 10:09 Results fo r this AM UNCLAIMED PROPERTY MANAGER procedure are i n the results section. HC COMPLETE BLD COUNT Routine 10/16/2019 10:09 Re sults for this W/AUTO DIFF AM UNCLAIMED PROPERTY MANAGER procedure are i n the results section. BASIC METABOLIC PANEL Routine 10/16/2019 10:09 Re sults for this AM UNCLAIMED PROPERTY MANAGER procedure are i n the results section. CLOSTRIDIUM DIFFICILE Routine 10/16/2019 4:20 Re sults for this TOXIN AM UNCLAIMED PROPERTY MANAGER procedure are i n the results section. TROPONIN Timed 10/14/2019 6:20 Results for this AM UNCLAIMED PROPERTY MANAGER procedure are i n the results section. LACTIC ACID LEVEL, Timed 10/14/2019 6:20 Resul ts for this SEPSIS - NOW AND REPEAT AM UNCLAIMED PROPERTY MANAGER proc edure are in 2X EVERY 3 HOURS the results section. TROPONIN Timed 10/13/2019 10:40 Results for this PM UNCLAIMED PROPERTY MANAGER procedure are i n the results section. LACTIC ACID LEVEL, Timed 10/13/2019 10:40 Resul ts for this SEPSIS - NOW AND REPEAT PM UNCLAIMED PROPERTY MANAGER proc edure are in 2X EVERY [address] results section. CT ABDOMEN PELVIS W STAT 10/13/2019 3:18 Resu lts for this CONTRAST PM UNCLAIMED PROPERTY MANAGER procedure are i n the results section. GRAM STAIN Routine 10/13/2019 2:04 Results for this PM UNCLAIMED PROPERTY MANAGER procedure are i n the results section. URINE CULTURE Routine 10/13/2019 2:04 Results fo r this PM UNCLAIMED PROPERTY MANAGER procedure are i n the results section. BLOOD CULTURE, AEROBIC & Routine 10/13/2019 1:44 Results for this ANAEROBIC PM UNCLAIMED PROPERTY MANAGER procedure are i n the results section. ESTIMATED GFR STAT 10/13/2019 1:40 Results fo r this PM UNCLAIMED PROPERTY MANAGER procedure are i n the results section. TROPONIN Timed 10/13/2019 1:40 Results for this PM UNCLAIMED PROPERTY MANAGER procedure are i n the results section. COMPREHENSIVE METABOLIC STAT 10/13/2019 1:40 Results for this PANEL PM UNCLAIMED PROPERTY MANAGER procedure are i n the results section. HC COMPLETE BLD COUNT STAT 10/13/2019 1:40 Re sults for this W/AUTO DIFF PM UNCLAIMED PROPERTY MANAGER procedure are i n the results section. LACTIC ACID LEVEL, STAT 10/13/2019 1:40 Resul ts for this SEPSIS - NOW AND REPEAT PM UNCLAIMED PROPERTY MANAGER proc edure are in 2X EVERY 3 HOURS the results section. BLOOD CULTURE, AEROBIC & Routine 10/13/2019 1:40 Results for this ANAEROBIC PM UNCLAIMED PROPERTY MANAGER procedure are i n the results section. XR CHEST 1 VW PORTABLE STAT 10/13/2019 1:37 R esults for this PM UNCLAIMED PROPERTY MANAGER procedure are i n the results section. ECG 12-LEAD STAT 10/13/2019 1:27 Results for this PM UNCLAIMED PROPERTY MANAGER procedure are i n the results section. URINALYSIS SCREEN AND Routine 10/13/2019 1:02 Re sults for this MICROSCOPY, WITH REFLEX PM UNCLAIMED PROPERTY MANAGER proc edure are in TO CULTURE the results section. ECG ED PRELIMINARY Routine 10/13/2019 12:47 Resul ts for this INTERPRETATION PM UNCLAIMED PROPERTY MANAGER procedure are in the results section. URINE [...] in TO CULTURE the results section. after 08/15/2019 Results Estimated GFR (12/04/2019 7:50 AM UNCLAIMED PROPERTY MANAGER)Only the most recent of17 resultswithin the time period is included. Estimated GFR 72 mL/min/1.73 [facility] Comment: m2 [place] Catergory Units Interpretation HOS PITAL G1 >=90 [...] 2014. Specimen Plasma specimen Performing Organization Address City/State/ZIP Code Phon e Number [facility] DEPARTMENT OF PATHOLOGY [address] [facility] [place] [address] AND GENOMIC MEDICINE [facility] [address] [facility] X [address] HOSPITAL Basic metabolic panel (12/04/2019 7:50 AM UNCLAIMED PROPERTY MANAGER)Only the most recent of11 results within the time period is included. Pathologist Sig nature Sodium 139 135 - 148 mEq/L [facility] Potassium 4.2 3.5 - 5.0 mEq/L [facility] Chloride 108 98 - 112 mEq/L [facility] CO2 21 (L) 24 - 31 mEq/L [facility] Anion gap 10@ANIO 7 - 15 mEq/L [facility] BUN 14 8 - 23 mg/dL [facility] Creatinine 0.81 0.50 - 0.90 mg/dL [facility] Glucose 102 (H) 65 - 99 mg/dL [facility] Calcium 9.0 8.8 - 10.2 mg/dL [facility] Specimen Plasma specimen Performing Organization Address City/[facility]/ZIP Code Phon e Number [facility] DEPARTMENT OF PATHOLOGY [address] [facility] X [address] AND GENOMIC MEDICINE [facility] [address] [facility] X [address] HOSPITAL XR Chest 1 Vw Portable (12/03/2019 7:20 AM UNCLAIMED PROPERTY MANAGER)Only the most recent of4 results within the time period is included. Specimen Narrative Performed At EXAMINATION: XR CHEST 1 VW PORTABLE [facility] CLINICAL HISTORY: cough COMPARISON: To a previous examination from 12/01/2019 IMPRESSION: The heart is normal in appearance. The lungs are clear . Presumed postsurgical changes are noted involving the distal left clavicle. [id number] Procedure Note Hm Interface, Radiology Results Incoming - 12/03/2019 7:29 AM UNCLAIMED PROPERTY MANAGER EXAMINATION: XR CHEST 1 VW PORTABLE CLINICAL HISTORY: cough COMPARISON: To a previous examination f rom 12/01/2019 IMPRESSION: The heart is normal in appearance. The l ungs are clear. Presumed postsurgical changes are noted involving the distal left clavicle. [id number] Performing Organization Address [facility] Phon e Number [facility] [address] [place] [address] Urine culture (12/02/2019 12:53 PM UNCLAIMED PROPERTY MANAGER)Only the most recent of6 resultswithin the time period is included. Urine culture Mixed shilpi <=10-3 col/cc [facility] IST isolate Comment: HOSPITAL Specimen Information Specimen Source: Urine Specimen Site: Clean catch Specimen Urine Performing Organization Address City/State/ZIP Code Phon e Number [facility] DEPARTMENT OF PATHOLOGY AND [address] [place], [place] [address] [facility] [address] [place] [address] Urinalysis screen and microscopy, with reflex to culture (12/02/2019 11:30 AM UNCLAIMED PROPERTY MANAGER)Only the most recent of6 resultswithin the time period is included. Specimen site Clean catch [facility] Color, UA Yellow [facility] Appearance, UA Turbid [facility] Specific gravity, UA 1.013 1.001 - 1.030 [facility] pH, UA 5.0 5.0 - 9.0 [facility] Protein, UA 2+ (A) Negative [facility] Glucose, UA Negative Negative [facility] Ketones, UA Negative Negative [facility] Bilirubin, UA Negative Negative [facility] Blood, UA Negative Negative [facility] Nitrite, UA Positive (A) Negative [facility] Urobilinogen, UA 2.0 (A) <2.0 E.U./dL [facility] Leukocyte esterase, Moderate (A) Negative [facility] Epithelial cells, UA 10 /HPF [facility] Round epithelial 1 0 - 5 /HPF [facility] cells, UA [facility] WBC, UA >200 (H) 0 - 4 /HPF [facility] RBC, UA 17 (H) 0 - 5 /HPF [facility] Bacteria, UA Few None seen [facility] WBC clumps, UA Many (A) [facility] Yeast, UA Few (A) [facility] Yeast with Few (A) [facility] pseudohyphae, UA [facility] Specimen Urine Performing Organization Address City/[facility] Phon e Number [facility] DEPARTMENT OF PATHOLOGY [address] [facility], [place] [address] AND GENOMIC MEDICINE [facility] [id number] [place] [address] X [address] HOSPITAL Amikacin level, peak (12/02/2019 10:15 AM UNCLAIMED PROPERTY MANAGER) Pathologist Sig nature Amikacin, peak 30.6 (H) 20.0 - 25.0 ug/mL [facility] Specimen Plasma specimen Performing Organization Address [facility] Phon e Number [facility] DEPARTMENT OF PATHOLOGY AND [address] [place], [place] [address] [facility] [address] [address] Amikacin level, trough (12/02/2019 8:50 AM UNCLAIMED PROPERTY MANAGER) Pathologist Sig nature Amikacin, trough 2.4 (L) 5.0 - 10.0 ug/mL [facility] Specimen Plasma specimen Performing Organization Address City/[facility] Phon e Number [facility] DEPARTMENT OF PATHOLOGY AND [address] [place], [place] [address] GENOMIC MEDICINE [facility] [address] [place] [address] US Renal (12/02/2019 5:59 AM UNCLAIMED PROPERTY MANAGER) Specimen Narrative Performed At EXAMINATION: US RENAL [...] stones or hydronephrosis. 5.The bladder is unremarkable. [id number] Procedure Note Interface, Radiology Results Incoming - 12/02/2019 7:19 AM UNCLAIMED PROPERTY MANAGER EXAMINATION: US RENAL CLINICAL HISTORY: Renal failure [...] stones or hydronephrosis. 5.The bladder is unremarkable. [id number] Performing Organization Address [facility] Code Phon e Number [facility] [address] [place] [address] CBC with platelet and differential (12/02/2019 5:10 AM UNCLAIMED PROPERTY MANAGER)Only the most recent of15 resultswithin the time period is included. WBC 6.2 4.5 - 11.0 k/uL [facility] RBC 2.97 (L) 4.20 - 5.50 [facility] m/uL [facility] HGB 9.1 (L) 12.0 - 16.0 [facility] g/dL [facility] HCT 29.6 (L) 37.0 - 47.0 % [facility] MCV 99.7 82.0 - 100.0 fL [facility] MCH 30.6 27.0 - 34.0 pg [facility] MCHC 30.7 (L) 31.0 - 37.0 [facility] gdL [facility] RDW - SD 48.4 37.0 - 55.0 fL [facility] MPV 9.8 6.9 - 11.0 fL [facility] Platelet count 195 150 - 400 K/uL [facility] Nucleated RBC 0.00 /100 WBC [facility] Neutrophils 76.5 (H) 39.0 - 69.0 % [facility] Lymphocytes 7.9 (L) 25.0 - 45.0 % [facility] Monocytes 13.9 (H) 0.0 - 10.0 % [facility] Eosinophils 1.1 0.0 - 5.0 % [facility] Basophils 0.3 0.0 - 1.0 % [facility] Immature granulocytes 0.3 0.0 - 1.0 % [facility] Specimen Blood Performing Organization Address City/[facility]/ZIP Code Phon e Number [facility] DEPARTMENT OF PATHOLOGY [id number] [place] [address] Uric acid level (12/02/2019 5:10 AM UNCLAIMED PROPERTY MANAGER) Pathologist Sig nature Uric acid 6.0 (H) 2.4 - 5.7 mg/dL [facility] Specimen Plasma specimen Performing Organization Address [facility] Phon e Number [facility] DEPARTMENT OF PATHOLOGY [id number] [place] [address] Creatine kinase, total (CPK) (12/02/2019 5:10 AM UNCLAIMED PROPERTY MANAGER) Pathologist Sig [facility] Creatine kinase 27 26 - 192 U/L [facility] Specimen Plasma specimen Performing Organization Address City/State/ZIP Code Phon e Number [facility] DEPARTMENT OF PATHOLOGY [address] [place] [address] AND GENOMIC MEDICINE [address] Comprehensive metabolic panel (12/02/2019 5:10 AM UNCLAIMED PROPERTY MANAGER)Only the most recent of6 resultswithin the time period is included. Pathologist [facility] Sodium 140 135 - 148 mEq/L [facility] Potassium 4.5 3.5 - 5.0 mEq/L [facility] Chloride 110 98 - 112 mEq/L [facility] CO2 21 (L) 24 - 31 mEq/L [facility] Anion gap 9@ANIO 7 - 15 mEq/L [facility] BUN 12 8 - 23 mg/dL [facility] Creatinine 1.03 (H) 0.50 - 0.90 [facility] mg/dL [facility] Glucose 97 65 - 99 mg/dL [facility] Calcium 8.9 8.8 - 10.2 [facility] mg/dL [facility] Protein 5.2 (L) 6.3 - 8.3 g/dL [facility] Albumin 3.0 (L) 3.5 - 5.0 g/dL [facility] A/G ratio 1.4 0.7 - 3.8 [facility] Alkaline phosphatase 100 35 - 104 U/L [facility] AST 13 10 - 35 U/L [facility] ALT 7 5 - 50 U/L [facility] Total bilirubin 0.3 0.2 - 1.2 mg/dL [facility] Specimen Plasma specimen Performing Organization Address City/[facility] Phon e Number [facility] DEPARTMENT OF PATHOLOGY [address] [facility] [place] [address] AND GENOMIC [facility] [address] [place] [address] HOSPITAL Protein, urine, random (12/01/2019 7:30 PM UNCLAIMED PROPERTY MANAGER) Pathologist Sig nature Total volume, urine 30 mL [facility] Urine protein 102 mg/dL [facility] Urine protein excretion 31 mg/vol [facility] Specimen Urine Performing Organization Address City/[facility] Phon e Number [facility] DEPARTMENT OF PATHOLOGY [address] [place] [address] Creatinine level, urine, random (12/01/2019 7:30 PM UNCLAIMED PROPERTY MANAGER) Pathologist Sig nature Total volume, urine 30 mL [facility] Urine creatinine 24 mg/dL [facility] Urine creatinine excretion 7 mg/vol [facility] Specimen Urine Performing Organization Address [facility] Phon e Number [facility] DEPARTMENT OF PATHOLOGY [address] [place] [address] Lactic acid level, SEPSIS - Now and repeat 2x every 3 hours (12/01/2019 7:30 AM UNCLAIMED PROPERTY MANAGER)Only the most recent of5 resultswithin the time period is included. Pathologist Sig [facility] Lactic acid 1.9 0.5 - 2.2 mmol/L [facility] Specimen Plasma specimen Performing Organization Address City/[facility] Phon e Number [facility] DEPARTMENT OF PATHOLOGY [address] [place] [address] Blood culture, aerobic & anaerobic (12/01/2019 5:05 AM UNCLAIMED PROPERTY MANAGER)Only the most recent of4 resultswithin the time period is included. Blood culture No growth after 5 days of incubation. MARYLOU LABOY isolate Comment: HOSPITAL Specimen Information Specimen Source: Blood Specimen Site: Wrist, right Specimen Blood - Wrist, right Performing Organization Address City/[facility] Phon e Number [facility] DEPARTMENT OF PATHOLOGY AND [address] [place], [place] [address] [address] Partial thromboplastin time, activated (12/01/2019 4:35 AM UNCLAIMED PROPERTY MANAGER) Pathologist [facility] PTT 25.3 23.0 - 36.0 [facility] Comment: sec GALLINA PTT therapeutic range for unfractionated heparin is HOSPITAL 61.0-112.0 seconds which corresponds to Anti-Xa 0.3-0.7 U/ml. Specimen Blood Performing Organization Address City/[facility] Phon e Number [facility] DEPARTMENT OF PATHOLOGY [id number] [place] [address] Prothrombin time with INR (12/01/2019 4:35 AM UNCLAIMED PROPERTY MANAGER) [facility] Prothrombin time 13.7 11.5 - 14.5 [facility] INR 1.1 [facility] POOL Comment: [facility] International Normalized Ratio (INR) is a therapeu [facility] monitoring tool for patients who are stable on oral anticoagulant therapy. An INR of 2.0-3.0 is suggested for deep vein thrombosis/pulmonary embolism. Specimen Blood Performing Organization Address City/[facility] Phon e Number [facility] DEPARTMENT OF PATHOLOGY [address] [place] [address] Gastrointestinal panel (11/21/2019 8:46 PM UNCLAIMED PROPERTY MANAGER)Only the most recent of2 results within the time period is included. [facility] Gastrointestinal panel Negative for all pathogens tested: [place] POOL Negative for Salmonella JAIN Negative for Campylobacter [facility] Negative for Diarrheagenic E coli/Shigella Negative [...] Specimen Stool - Nonpreserved Performing Organization Address City/[facility]/ZIP [facility] Phon e Number [facility] DEPARTMENT OF PATHOLOGY AND [address] [place], [place] [address] [facility] [address] [place] [address] Troponin (11/21/2019 5:20 PM UNCLAIMED PROPERTY MANAGER)Only the most recent of5 resultswithin the time period is included. Troponin <0.006 0.000 - 0.040 [facility] Comment: ng/mL [facility] In patients suspected of having a [...] ng/mL Specimen Plasma specimen Performing Organization Address City/State/[facility] Phon e Number [facility] DEPARTMENT OF PATHOLOGY [address] [facility]. [facility] [place] [address] AND GENOMIC MEDICINE [facility] [address] [facility] X [address] [facility] ECG 12 lead (11/21/2019 11:26 AM UNCLAIMED PROPERTY MANAGER)Only the most recent of4 resultswithin the time [...] is no t available. Performing Organization Address City/[facility] Phon e Number [facility] MUSE [address] [place] [address] Gram stain (11/20/2019 3:48 PM UNCLAIMED PROPERTY MANAGER)Only the most recent of4 resultswithin the time period is included. Gram stain result Occasional WBC's [facility] Moderate Gram negative rods [facility] Comment: Specimen Information Specimen Source: Urine Specimen Site: Catheterized Specimen Urine - Catheterized Performing Organization Address City/[facility] Phon e Number [facility] DEPARTMENT OF PATHOLOGY AND [address] [place], [place] [address] [address] Lipase level (11/19/2019 5:20 PM UNCLAIMED PROPERTY MANAGER) Pathologist Sig [facility] Lipase 7 (A) 13 - 60 U/L [facility] Specimen Plasma specimen Performing Organization Address City/[facility] Phon e Number [facility] DEPARTMENT OF PATHOLOGY [id number] [place] [address], [place] [address] AND [facility] [id number] [place] [address] [address] [address] [facility] [address] Lumbar Spine Wo Contrast (10/28/2019 2:52 PM UNCLAIMED PROPERTY MANAGER) Specimen Narrative Performed At EXAMINATION: CT LUMBAR [...] pro trusion. Bilateral facet arthropathy. There is grui-sb-zyhxesza neural fo raminal stenosis. The central canal [...] scoliosis of lumbar spine resulting in mi cd-ew-xizflzjb neural foraminal stenosis as described a fran [id number] Procedure Note Hm Interface, Radiology Results Incoming - 10/28/2019 3:05 PM UNCLAIMED PROPERTY MANAGER EXAMINATION: CT LUMBAR SPINE WO CONTRAST CLINICAL [...] disc protrusion. Bilateral facet arthropathy. There is zbyr-ht-vipajgep neural foraminal stenosis. The central canal is [...] dextroconvex scoliosis of lumbar spine resulting in uztl-zv-ixlxvktg neural foraminal stenosis as described above [id number] Performing Organization Address City/State/ZIP Code Phon e Number [facility] [address] [place] [address] XR Shoulder 2+ Vw Right (10/28/2019 7:11 AM UNCLAIMED PROPERTY MANAGER) Specimen Narrative Performed At EXAMINATION: XR SHOULDER 2 VW RIGHT HM [facility] CLINICAL HISTORY: shoulder pain COMPARISON: Most recent H prior. IMPRESSION: There is no acute fracture. Joint spaces are preserved . Soft tissues are unremarkable. [id number] Procedure Note Interface, Radiology Results Incoming - 10/28/2019 8:14 AM UNCLAIMED PROPERTY MANAGER EXAMINATION: XR SHOULDER 2 VW RIGHT CLINICAL HISTORY: shoulder pain COMPARISON: Most recent [facility] prior. IMPRESSION: There is no acute fracture. Joint spaces are preserved. Soft tissues are unremarkable. [id number] Performing Organization Address [facility] Phon e Number [facility] [address] [place] [address] XR Pelvis 1 Or 2 Vw (10/28/2019 6:18 AM UNCLAIMED PROPERTY MANAGER) Specimen Narrative Performed At EXAMINATION: XR PELVIS 1 OR 2 VW [facility] CLINICAL HISTORY: fall COMPARISON: Most recent [facility] prior. IMPRESSION: Post-ORIF changes involving the proximal right femur, without evidence of loosening or hardware failure. No acute fracture. O ld right femoral neck fracture is present. There are surgical raphael i n the right pelvis. There is moderate degenerative c hange at the right hip. [id number] Procedure Note Interface, Radiology Results Incoming - 10/28/2019 8:12 AM UNCLAIMED PROPERTY MANAGER EXAMINATION: XR PELVIS 1 OR 2 VW CLINICAL HISTORY: fall COMPARISON: Most recent [facility] prior. IMPRESSION: Post-ORIF changes involving the proximal right femur, without evidence of loosening or hardware failure. No acute fracture. Old right femoral neck fracture is present. There are surgical raphael in the right pelvis. There is moderate degenerative change at the right hip. [id number] Performing Organization Address [facility] Phon e Number [facility] [address] [place] [address] Smear review (10/28/2019 5:40 AM UNCLAIMED PROPERTY MANAGER)Only the most recent of2 resultswithin the time period is included. Platelet slide review Maritza slt decr (A) [facility] Anisocytosis Moderate [facility] Ovalocytes Moderate [facility] Specimen Performing Organization Address City/[facility]/ZIP Code Phon e Number [facility] DEPARTMENT OF PATHOLOGY [address] [facility] [address] AND GENOMIC MEDICINE [facility] [address] [facility] [address] HOSPITAL C difficile toxin (10/16/2019 4:20 AM UNCLAIMED PROPERTY MANAGER) Clostridium Positive for C. difficile toxin (A) [place] difficile toxin Comment: HOSPITAL Specimen Information Specimen Source: Stool Specimen Site: Nonpreserved Specimen Stool - Nonpreserved Performing Organization Address City/State/ZIP Code Phon e Number [facility] DEPARTMENT OF PATHOLOGY AND [address] [place], [place] [address] GENOMIC MEDICINE [facility] [address] [place] [address] CT Abdomen Pelvis W Contrast (10/13/2019 3:18 PM UNCLAIMED PROPERTY MANAGER) Specimen Narrative Performed At EXAMINATION: CT ABDOMEN PELVIS W CONTR AST HM [facility] CLINICAL HISTORY: Diffuse abdominal tenderness with [...] findings in the abdomen or pe lvis. [id number] Procedure Note Interface, Radiology Results Incoming - 10/13/2019 3:34 PM UNCLAIMED PROPERTY MANAGER EXAMINATION: CT ABDOMEN PELVIS W CONTRAST CLINICAL [...] findings in the abdomen or pe lvis. [facility]-[id number] Performing Organization Address City/State/ZIP Code Phon e Number [facility] [address] [place] [address] ECG ED Preliminary Interpretation - Not an Order (10/13/2019 12:47 PM UNCLAIMED PROPERTY MANAGER) Narrative Performed At Sada Foster MD 10/13 9:10 PM ECG ED Preliminary Interpretation - Not an Order Performed by: Levi Noel PA Authorized by: Sada Foster MD ECG reviewed by ED Physician in the abse nce of a wall scraper: yes Previous ECG: Previous ECG: Unavailable Interpretation: Interpretation: normal Rate: ECG rate: 70 ECG rate assessment: normal Rhythm: Rhythm: sinus rhythm Ectopy: Ectopy: none QRS: QRS intervals: Normal Conduction: Conduction: normal ST segments: ST segments: Normal T waves: T waves: normal after 08/15/2019 Additional Health Concerns Infection Onset 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 (E) 11/22/2019 11/22/2019 Insurance Payer Benefit Plan / Group Subscriber ID Effective Phone Addre ss Type Dates MEDICARE MEDICARE PART A AND B [id number] 2012-Pres [facility] [place] Medicare ent [facility] [id number] 2020-Regan PPO COMMERCIAL nt HMO/[place] [address] [place] [address] Advance Directives For more information, please contact: [phone] Type Date 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 Advance Directives, 07/13/2019 2:11 PM Living Will and Medical Power of Refuse Collector Advance Directives, 06/26/2018 5:16 PM Living Will and Medical Power of Refuse Collector Advance Directives, 07/23/2018 4:55 PM Living Will and Medical Power of Refuse Collector Advance Directives, 11/22/2018 1:29 PM MEDICAL P OA-11/16/18 Living Will and Medical Power of Refuse Collector Advance Directives, 02/17/2019 11:24 AM Living Will and Medical Power of Refuse Collector Advance Directives, 06/03/2019 12:53 PM Living Will and Medical Power of Refuse Collector Advance Directives, 06/11/2019 4:22 PM MEDICAL Living Will and Medical Power of Refuse Collector Advance Directives, 06/11/2019 4:23 PM ADV Living Will and Medical Power of Refuse Collector Advance Directives, 06/27/2019 1:33 PM ADVANCE D IRECTIVE Living Will and 06/21/2018 Medical Power of Refuse Collector Advance Directives, 06/30/2019 1:23 PM Living Will and Medical Power of Refuse Collector Advance Directives, 08/19/2019 1:18 PM Living Will and Medical Power of Refuse Collector
[2020-08-15 15:16] LABS: Absolute Lymphocytes (CBC) 0.7 K/uL (0.7-4.9); Basophils % 0.8 % (0-1.3); Hematocrit 31.4 % (36.0-45.0); Lymphocytes % 17.8 % (15.3-44.8); MPV 8.2 fL (7.6-11.3); Protime INR 0.91; RBC Red Blood Cell Count 3.33 M/uL (3.86-4.86)
[2020-08-15 15:36] LABS: ALT/SGPT 16 U/L (12-78); AST/SGOT 16 U/L (15-37); Albumin 3.6 g/dL (3.4-5.0); Alkaline Phosphatase 100 U/L (45-117); BUN Blood Urea Nitrogen 15 mg/dL (7-18); Bicarbonate 29 mmol/L (21-32); Bilirubin Direct 0.2 mg/dL (0-0.2); Bilirubin Total 0.6 mg/dL (0.2-1.0); Glucose Level 74 mg/dL (74-106); Magnesium 2.2 mg/dL (1.8-2.4); NT PRO-BNP 1396 pg/mL (<125); Potassium 4.6 mmol/L (3.5-5.1); Protein, Total 6.4 g/dL (6.4-8.2); Sodium Level 144 mmol/L (136-145); Troponin (Emerg Dept Use Only) < 0.02 ng/mL (0.0-0.045)
--- NOTE | 2020-08-15 15:38 | RAD REPORT ---
EXAM DESCRIPTION: RAD - Chest Single View - 08/15/2020 3:32 pm CLINICAL HISTORY: AMS Chest pain. COMPARISON: Chest Single View dated 05/27/2020; Chest Single View dated 04/29/2020; Chest Single View dated 04/03/2020; Chest Single View dated 02/24/2020 FINDINGS: Portable technique limits examination quality. The lungs are grossly clear. The heart is upper limit of normal in size. Posttraumatic changes of the left shoulder again noted. IMPRESSION: No acute intrathoracic process suspected.
--- NOTE | 2020-08-15 15:55 | RAD REPORT ---
EXAM DESCRIPTION: CT - Head Brain Wo Cont - 08/15/2020 3:49 pm CLINICAL HISTORY: CONFUSED Headache, drowsiness COMPARISON: Head Brain Wo Cont dated 04/29/2020; Head Brain Wo Cont dated 03/22/2020 TECHNIQUE: All CT scans are performed using dose optimization technique as appropriate and may inclu de automated exposure control or mA/KV adjustment according to patient size. FINDINGS: No intracranial hemorrhage, hydrocephalus or extra-axial fluid collection.Mild generalized brain atrophy.No areas of brain edema or evidence of midline shift. The paranasal sinuses and mastoids are clear. The calvarium is intact. IMPRESSION: No acute intracranial abnormality.
[2020-08-15 16:00] LABS: Urine Blood TRACE (NEG); Urine Glucose NEGATIVE (NEG); Urine Protein NEGATIVE (NEG)
--- NOTE | 2020-08-15 17:00 | EDPHYS ---
Physician Documentation [facility] Name: Tina Padron Age: 74 yrs Sex: Female : 1945 Arrival Date: 08/15/2020 Time: 14:21 Bed 3 Private MD: ED Physician Rashawn Wagner HPI: 08/15 18:18 This 74 yrs old Female presents to ER via EMS with complaints of Altered kdr Mental Status. 18:18 The patient presents with confusion, decreased mental status, decreased responsiveness, kdr disorientation. Onset: The symptoms/episode began/occurred this morning. Possible causes: CVA or TIA, unknown. 18:21 Associated signs and symptoms: Pertinent positives: agitation, combativeness, kdr confusion, nausea, weakness. Current symptoms: In the emergency department the patient's symptoms have improved, markedly. Patient's baseline: Neuro: alert and fully oriented, Motor: Generally weak but walks with a walker, Ambulation:. The patient has experienced similar episodes in the past, a few times. The patient has not recently seen a physician. Historical: - Allergies: 14:24 Compazine; tw2 14:24 Meclizine; tw2 - Home Meds: 14:24 aspirin 81 mg Oral TbEC 1 tab once daily [Active]; Azo-Standard Oral as needed tw2 [Active]; Synthroid 88 mcg Oral tab 1 tab once daily [Active]; omeprazole 40 mg Oral cpDR 1 cap once daily [Active]; clonazepam 1 mg Oral tab 1 tab nightly [Active]; Flomax 0.4 mg Oral cp24 1 cap once daily [Active]; losartan 50 mg Oral tab 1 tab 2 times per day [Active]; meclizine 25 mg Oral tab 1 tab as needed [Active]; oxycodone-acetaminophen 7.5-325 mg Oral tab 1 tab every 6 hours [Active]; pantoprazole 20 mg Oral TbEC 1 tab once daily [Active]; potassium chloride 20 mEq Oral TbTQ 1 tab 2 times per day [Active]; simvastatin 20 mg Oral tab 1 tab once daily [Active]; Uribel 118-10-40.8-36 mg Oral tab daily [Active]; - PMHx: 14:24 "shattered shoulder"; Anxiety; chronic uti; Hyperlipidemia; Hypertension; tw2 Hypothyroidism; spinal fractures; - PSHx: 14:24 Cholecystectomy; Hysterectomy; l shoulder; back; tw2 - Immunization history:: Adult Immunizations. - Social history:: Smoking status: . ROS: 18:21 Constitutional: Negative for fever, chills, and weight loss, Eyes: Negative for injury, kdr pain, redness, and discharge, Neck: Negative for injury, pain, and swelling, Cardiovascular: Negative for chest pain, palpitations, and edema, Respiratory: Negative for shortness of breath, cough, wheezing, and pleuritic chest pain, Abdomen/GI: Negative for abdominal pain, nausea, vomiting, diarrhea, and constipation, Back: Negative for injury and pain, : Negative for injury, bleeding, discharge, and swelling, MS/Extremity: Negative for injury and deformity, Skin: Negative for injury, rash, and discoloration, Psych: Negative for depression, anxiety, suicide ideation, homicidal ideation, and hallucinations, Allergy/Immunology: Negative for hives, rash, and allergies, Endocrine: Negative for neck swelling, polydipsia, polyuria, polyphagia, and marked weight changes, Hematologic/Lymphatic: Negative for swollen nodes, abnormal bleeding, and unusual bruising. 18:21 Neuro: Positive for altered mental status, weakness, Negative for dizziness, headache, loss of consciousness, tremor, visual changes. Exam: 18:21 Constitutional: This is a well developed, poorly nourished patient who is awake, kdr alert, and in mild distress. The patient is stating that she does not want to be admitted and seems generally A\\T\\O x 3. She does not know the date but is o/w aware of what is happening. She had refused EMS transport but EMS did not allow her to refuse and transported. From EMS report, the patient weas very confused at the scene but has since improved Head/Face: Normocephalic, atraumatic. Eyes: Pupils equal round and reactive to light, extra-ocular motions intact. Lids and lashes normal. Conjunctiva and sclera are non-icteric and not injected. Cornea within normal limits. Periorbital areas with no swelling, redness, or edema. Neck: Trachea midline, no thyromegaly or masses palpated, and no cervical lymphadenopathy. Supple, full range of motion without nuchal rigidity, or vertebral point tenderness. No Meningismus. Chest/axilla: Normal chest wall appearance and motion. Nontender with no deformity. No lesions are appreciated. Cardiovascular: Regular rate and rhythm with a normal S1 and S2. No gallops, murmurs, or rubs. Normal PMI, no JVD. No pulse deficits. Respiratory: Lungs have equal breath sounds bilaterally, clear to auscultation and percussion. No rales, rhonchi or wheezes noted. No increased work of breathing, no retractions or nasal flaring. Abdomen/GI: Soft, non-tender, with normal bowel sounds. No distension or tympany. No guarding or rebound. No evidence of tenderness throughout. Back: No spinal tenderness. No costovertebral tenderness. Full range of motion. Skin: Warm, dry with normal turgor. Normal color with no rashes, no lesions, and no evidence of cellulitis. MS/ Extremity: Pulses equal, no cyanosis. Neurovascular intact. Full, normal range of motion. Psych: Awake, alert, with orientation to person, place and time. Behavior, mood, and affect are within normal limits. 19:26 ECG was reviewed by the Attending Physician. kdr Vital Signs: 14:25 BP 118 / 45; Pulse 38; Resp 10; Temp 97.8(TE); Pulse Ox 99% on R/A; Weight 49.9 kg (R); tw2 Height 5 ft. 5 in. (165.10 cm); Pain 0/10; 15:06 BP 119 / 36; Pulse 40; Resp 15; Pulse Ox 98% ; bp 16:02 BP 113 / 43; Pulse 42; Resp 16; Pulse Ox 100% on R/A; tw2 17:06 BP 121 / 55; Pulse 39; Resp 14; Pulse Ox 100% on R/A; tw2 17:49 BP 148 / 52; Pulse 51; Resp 14; Pulse Ox 95% on R/A; tw2 18:00 BP 148 / 52; Pulse 63; Resp 17; Pulse Ox 100% ; bp 14:25 Body Mass Index 18.30 (49.90 kg, 165.10 cm) tw2 14:25 provider notified. tw2 17:06 Dr. Sampson at bedside and aware of HR tw2 MDM: 17:00 Patient medically screened. kdr 18:28 Data reviewed: vital signs, nurses notes. Counseling: I had a detailed discussion with kdr the patient and/or guardian regarding: the historical points, exam findings, and any diagnostic results supporting the discharge/admit diagnosis, lab results, radiology results, the need for outpatient follow up. 08/15 14:57 Order name: Basic Metabolic Panel; Complete Time: 16:04 kdr 08/15 14:57 Order name: CBC with Diff; Complete Time: 16:04 kdr 08/15 14:57 Order name: LFT's; Complete Time: 16:04 kdr 08/15 14:57 Order name: Magnesium; Complete Time: 16:04 kdr 08/15 14:57 Order name: NT PRO-BNP; Complete Time: 16:04 kdr 08/15 14:57 Order name: PT-INR; Complete Time: 16:04 kdr 08/15 14:57 Order name: Troponin (emerg Dept Use Only); Complete Time: 16:04 kdr 08/15 14:57 Order name: XRAY Chest (1 view); Complete Time: 16:04 kdr 08/15 14:57 Order name: EKG; Complete Time: 14:58 kdr 08/15 14:58 Order name: CT Head Brain wo Cont; Complete Time: 16:04 kdr 08/15 14:58 Order name: AMMONIA; Complete Time: 16:04 kdr 08/15 15:27 Order name: Urine Dipstick--Ancillary (enter results); Complete Time: 16:04 em1 08/15 14:57 Order name: Cardiac monitoring; Complete Time: 15:06 kdr 08/15 14:57 Order name: EKG - Nurse/Tech; Complete Time: 15:06 kdr 08/15 14:57 Order name: IV Saline Lock; Complete Time: 15:06 kdr 08/15 14:57 Order name: Labs collected and sent; Complete Time: 15:06 kdr 08/15 14:57 Order name: O2 Per Protocol; Complete Time: 15:07 kdr 08/15 14:57 Order name: O2 Sat Monitoring; Complete Time: 15:07 kdr 08/15 16:26 Order name: Diet Ada 1800 Elian; Complete Time: 16:26 ss EC:26 Rate is 39 beats/min. Rhythm is regular, Sinus bradycardia with No ectopy. QRS [place] is kdr Normal. NE interval is normal. QRS interval is normal. QT interval is normal. Clinical impression: Sinus bradycardia. Administered Medications: 17:07 Not Given (Physician Discretion; BY DR SAMPSON): Rocephin - (cefTRIAXone) 1 grams IVPB bp once over 30 mins; (mix in 50 mL NS) 17:30 Drug: NS 0.9% 500 ml Route: IV; Rate: bolus; Site: left antecubital; bp 18:12 Follow up: IV Status: Completed infusion; IV Intake: 250ml bp Disposition: 08/15/20 18:29 Patient has left against medical advice. Impression: Bradycardia, unspecified, Altered mental status, unspecified, Weakness. - Patients states they are going to Home. - Condition is Fair. - Discharge Instructions: Bradycardia, Adult, Confusion, Weakness, [id number]. Follow up: Private Physician; When: 2 - 3 days; Reason: If symptoms return, Further diagnostic work-up, Recheck today's complaints, Continuance of care, Re-evaluation by your physician. - Problem is new. - Symptoms have improved. Signatures: Dispatcher [employer] EDMS Rashawn Wagner MD MD kdr Zoraida Green RN RN tw2 Edward Fuentes, ALCIDES RN bp Corrections: (The following items were deleted from the chart) 18:28 17:00 Hospitalization Ordered by Vineet Sampson DO for Observation. Preliminary kdr diagnosis is Bradycardia, unspecified; Weakness; Altered mental status, unspecified. Bed requested for Telemetry/MedSurg (observation). Status is Observation. Condition is Stable. Problem is new. Symptoms have improved. kdr 18:34 18:29 08/15/2020 18:29 Patients has left against medical advice. Impression: bp Bradycardia, unspecified; Altered mental status, unspecified; Weakness. Patient states they are going to Home. Condition is Fair. Follow up: Private Physician; When: 2 - 3 days; Reason: If symptoms return, Further diagnostic work-up, Recheck today's complaints, Continuance of care, Re-evaluation by your physician. Problem is new. Symptoms have improved. kdr
--- NOTE | 2020-08-15 17:00 | ER ---
Nurse's Notes [facility] Name: Tina Padron Age: 74 yrs Sex: Female : 1945 Arrival Date: 08/15/2020 Time: 14:21 Bed 3 Private MD: Diagnosis: Bradycardia, unspecified;Altered mental status, unspecified;Weakness Presentation: 08/15 14:25 Chief complaint: EMS states: original call was for lift assist, said she fell tw2 down, did not hit her head, when we got there she is rambling about "coats left her" and tried to give me a box of coats, she is normally weal on left side but appears to be weakened since last time we rounded on her, she cant repeat what we are asking her, she is not making sense and is rambling, states she has been refusing to eat for the past 3 days, BGL 78, HR 38's, she refused to let us do anything to here states she would punch and spit on us. Coronavirus screen: At this time, the client does not indicate any symptoms associated with coronavirus-19. Ebola Screen: Patient denies travel to an Ebola-affected area in the 21 days before illness onset. Initial Sepsis Screen: Does the patient meet any 2 criteria? Altered Mental Status. Does the patient have a suspected source of infection? No. Patient's initial sepsis screen is negative. Risk Assessment: Do you want to hurt yourself or someone else? Patient reports no desire to harm self or others. Onset of symptoms was August 15, 2020. 14:25 Method Of Arrival: EMS: [facility] tw2 14:25 Acuity: TYLOR 2 tw2 Triage Assessment: 14:29 General: Appears in no apparent distress. Behavior is calm, fussy, uncooperative. Pain: tw2 Denies pain. Neuro: Level of Consciousness is awake, obeys commands, Oriented to person. Historical: - Allergies: 14:24 Compazine; tw2 14:24 Meclizine; tw2 - Home Meds: 14:24 aspirin 81 mg Oral TbEC 1 tab once daily [Active]; Azo-Standard Oral as needed tw2 [Active]; Synthroid 88 mcg Oral tab 1 tab once daily [Active]; omeprazole 40 mg Oral cpDR 1 cap once daily [Active]; clonazepam 1 mg Oral tab 1 tab nightly [Active]; Flomax 0.4 mg Oral cp24 1 cap once daily [Active]; losartan 50 mg Oral tab 1 tab 2 times per day [Active]; meclizine 25 mg Oral tab 1 tab as needed [Active]; oxycodone-acetaminophen 7.5-325 mg Oral tab 1 tab every 6 hours [Active]; pantoprazole 20 mg Oral TbEC 1 tab once daily [Active]; potassium chloride 20 mEq Oral TbTQ 1 tab 2 times per day [Active]; simvastatin 20 mg Oral tab 1 tab once daily [Active]; Uribel 118-10-40.8-36 mg Oral tab daily [Active]; - PMHx: 14:24 "shattered shoulder"; Anxiety; chronic uti; Hyperlipidemia; Hypertension; tw2 Hypothyroidism; spinal fractures; - PSHx: 14:24 Cholecystectomy; Hysterectomy; l shoulder; back; tw2 - Immunization history:: Adult Immunizations. - Social history:: Smoking status: . Screenin:29 Abuse screen: Denies threats or abuse. Nutritional screening: No deficits noted. tw2 Tuberculosis screening: No symptoms or risk factors identified. Fall Risk Secondary diagnosis (15 points) impaired mobility. Assessment: 14:45 Reassessment: provider at bedside at this time. tw2 15:08 General: Appears in no apparent distress. slender, Behavior is appropriate for age, tw2 uncooperative. Pain: Denies pain. Neuro: Level of Consciousness is awake, obeys commands, Oriented to person. Cardiovascular: Heart tones S1 S2 Patient's skin is warm and dry. Respiratory: Airway is patent Respiratory effort is even, unlabored, Respiratory pattern is regular, symmetrical, Breath sounds are diminished bilaterally. GI: No signs and/or symptoms were reported involving the gastrointestinal system. Abdomen is flat, Bowel sounds present X 4 quads. : No signs and/or symptoms were reported regarding the genitourinary system. EENT: No signs and/or symptoms were reported regarding the EENT system. Derm: Skin is fragile, is thin, with poor turgor Skin is dry, Skin temperature is cool. Musculoskeletal: Range of motion: limited in left shoulder. 16:02 Reassessment: Patient appears in no apparent distress at this time. No changes from tw2 previously documented assessment. Patient and/or family updated on plan of care and expected duration. Pain level reassessed. 16:06 Reassessment: pt yelling "Art Cordova", pt reoriented to place and that is not tw2 here, pt states "dont fuck with me and make me think i am crazy", pt reoriented again at this time and informed that as soon as we see her spouse we will get him back here. 16:13 Reassessment: pts spouse at bedside at this time. bp 17:05 Reassessment: hospitalist Dr. Sampson at bedside at this time. tw2 17:07 Reassessment: Patient appears in no apparent distress at this time. No changes from tw2 previously documented assessment. Patient and/or family updated on plan of care and expected duration. Pain level reassessed. 17:10 Reassessment: ADMIT MD AT B/S. PT REFUSING ADMIT DESPITE MD COUNSELING. RE-EVAL PENDING.bp 17:46 Reassessment: pt yelling about her phone and for us to call her , called tw2 and he answered, he said phone is in outside pocket of suitcase, phone was given to pt, pt wants him to call her, pts spouse called her at this time. 18:08 Reassessment: PT NOW REFUSING AMA D/C. PT INFORMED OF BINARY CHOICE, BUT REFUSING BOTH bp ADMIT AND AMA. PT AGAIN COUNSELED FOR ADMIT, BUT CONTINUES TO REFUSE. 18:10 Reassessment: PT D/C OWN PIV AND MONITORING DESPITE STAFF URGINGS, DRESSING PLACED. bp 18:28 Reassessment: SPOUSE AT B/S FOR D/C AMA. AMA FORM SIGNED. PT AND SPOUSE COUNSELED ABOUT bp ADMIT BUT REFUSED. PT AO4, LAST VS STABLE. Vital Signs: 14:25 BP 118 / 45; Pulse 38; Resp 10; Temp 97.8(TE); Pulse Ox 99% on R/A; Weight 49.9 kg (R); tw2 Height 5 ft. 5 in. (165.10 cm); Pain 0/10; 15:06 BP 119 / 36; Pulse 40; Resp 15; Pulse Ox 98% ; bp 16:02 BP 113 / 43; Pulse 42; Resp 16; Pulse Ox 100% on R/A; tw2 17:06 BP 121 / 55; Pulse 39; Resp 14; Pulse Ox 100% on R/A; tw2 17:49 BP 148 / 52; Pulse 51; Resp 14; Pulse Ox 95% on R/A; tw2 18:00 BP 148 / 52; Pulse 63; Resp 17; Pulse Ox 100% ; bp 14:25 Body Mass Index 18.30 (49.90 kg, 165.10 cm) tw2 14:25 provider notified. tw2 17:06 Dr. Sampson at bedside and aware of HR tw2 ED Course: 14:21 Patient arrived in ED. tw2 14:21 Placed in gown. Side rails up X2. sandwich hand on. Pulse ox on. NIBP on. Warm tw2 blanket given. 14:28 Triage completed. tw2 14:29 Arm band placed on. tw2 14:42 Rashawn Wagner MD is Attending Physician. kdr 14:47 Zoraida Green, RN is Primary Nurse. tw2 15:02 Missed attempt(s): 22 gauge in left forearm. Bleeding controlled, band aid applied, tw2 catheter tip intact. 15:05 Inserted saline lock: 22 gauge in left antecubital area, using aseptic technique. Blood bp collected. 15:13 Initial lab(s) drawn, by ED staff, sent to lab. EKG done, by ED staff, reviewed by 5 Rashawn Wagner MD. 15:24 Urine collected: clean catch specimen, cloudy. [facility] 15:32 XRAY Chest (1 view) In Process Unspecified. EDMS 15:50 CT Head Brain wo Cont In Process Unspecified. EDMS 16:59 Vineet Sampson DO is Hospitalizing Provider. kdr 18:00 No provider procedures requiring assistance completed. IV discontinued, BY PATIENT. bp Administered Medications: 17:07 Not Given (Physician Discretion; BY DR SAMPSON): Rocephin - (cefTRIAXone) 1 grams IVPB bp once over 30 mins; (mix in 50 mL NS) 17:30 Drug: NS 0.9% 500 ml Route: IV; Rate: bolus; Site: left antecubital; bp 18:12 Follow up: IV Status: Completed infusion; IV Intake: 250ml bp Intake: 18:12 IV: 250ml; Total: 250ml. bp Outcome: 17:00 Decision to Hospitalize by Provider. kdr 18:30 AMA AMA form signed bp 18:30 Condition: stable 18:30 Instructed on the need for admit. 18:34 Patient left the ED. bp Signatures: Dispatcher [employer] Rashawn Hunt MD MD kdr Wise, Tara RN RN 2 Shawna Payton [facility] Edward Fuentes RN RN bp
[2020-08-15] MEDS ORDERED: CEFTRIAXONE/SWI 1gm 1 GM/10 ML SYR ONE (17:18)
[2020-08-15] MEDS ORDERED: NA CHLORIDE 0.9% 100 ML IV ONE (17:18)
[2020-08-15] MEDS ORDERED: NA CHLORIDE 0.9% 500 ML ONE (17:38)
[2020-08-15 18:52] VITALS: TEMP 97.8
[2020-08-15 18:58] VITALS: BP 148/52
[2020-08-15 18:59] VITALS: O2SAT 100
== END 2020-08-15 18:34 | disposition left against medical advice (07) ==
LOC: ER 14:18
DX: R00.1 Bradycardia, unspecified (principal); R53.1 Weakness; I10 Essential (primary) hypertension; E78.5 Hyperlipidemia, unspecified; F41.9 Anxiety disorder, unspecified; E03.9 Hypothyroidism, unspecified; Z79.82 Long term (current) use of aspirin; Z88.1 Allergy status to other antibiotic agents; Z88.8 Allergy status to other drugs, medicaments and biological substances
CPT/HCPCS: 93005; 85025; 80048; 36415; 82140; 83735; 85610; 80076; 81003; 84484; 83880; 70450; 71045; 96360; 99285; J0696; J7040

== ENCOUNTER 2020-11-20 19:03 | Inpatient (IN) | payer OTHER, BC ==
--- OUTSIDE RECORDS SUMMARY | 2020-11-20 19:08 | XMS REPORT | Clinical Summary ---
:1945 Author Organization [facility] Address [address] [place] [address] Care Team Providers Name Role Phone Masoud Smith MD Primary Care Provider [phone] Allergies Active Allergy Reactions Severity Noted Date Comments Cefuroxime Other (See Comments) 12/28/2018 "shaky legs, and metal taste in the mo uth" Patient has mary erated cefdinir and ce fepime in the past Prochlorperazine 03/20/2018 Medications Medication Sig Dispensed Refills Start End Status Date Date simvastatin (ZOCOR) 20 MG Take 20 mg by 0 Active tablet mouth nightly. aspirin (ECOTRIN) 81 MG Take 81 mg by 0 Active enteric coated tablet mouth daily. omeprazole (PriLOSEC) 40 Take 40 mg by 0 Active MG capsule mouth daily. potassium chloride Take 20 mEq by 0 Active (K-DUR,KLOR-CON) 10 MEQ mouth 2 (two) CR tablet times a day. albuterol (PROAIR Inhale 2 puffs 0 Active HFA,PROVENTIL every 6 (six) HFA,VENTOLIN HFA) 90 hours as needed mcg/actuation inhaler for wheezing. levothyroxine (SYNTHROID) Take 88 mcg by 0 Active 88 mcg tablet mouth daily. methen-m.blue-s.phos-phsa Take 1 capsule 0 Active l-hyo (URIBEL) by mouth daily. 118-10-40.8-36 mg capsule mirabegron (MYRBETIQ) 50 Take 50 mg by 0 Active mg tablet extended mouth daily. release 24 hr meclizine (ANTIVERT) 25 Take 25 mg by 0 Active mg tablet mouth daily. pantoprazole (PROTONIX) Take 20 mg by 0 Active 20 MG EC tablet mouth daily. melatonin 10 mg capsule Take 20 mg by 0 Active mouth nightly as needed. miconazole (MICOTIN) 2 % Apply 1 0 Active cream application topically nightly as needed. nystatin (MYCOSTATIN) Apply topically 0 Active 100,000 unit/gram cream 3 (three) times a day. To perineum lanolin/mineral Apply 1 drop to 0 Active oil/petrolatum eye 3 (three) (ARTIFICIAL TEARS OPHT) times a day. Patient says medication is "Real Tears" over the counter administered 1 drop both eyes 2-3 times daily. tamsulosin (FLOMAX) 0.4 Take 0.4 mg by 0 Active mg capsule mouth daily. clonAZEPAM (KlonoPIN) 1 Take 1 mg by 0 Active MG tablet mouth nightly. oxyCODone-acetaminophen Take 1 tablet 0 Active (PERCOCET) 7.5-325 mg per by mouth every tabletIndications: acute 6 (six) hours pain as needed for moderate pain .acute pain. lidocaine 3 % cream Apply topically 0 Active as needed. oxybutynin (DITROPAN) 5 Take 5 mg by 0 Active MG tablet mouth 2 (two) times a day. QUEtiapine (SEROquel) 25 Take 25 mg by 0 Active MG tablet mouth every 6 (six) hours as needed (agitation/ anxiety and psychosis). sertraline (ZOLOFT) 50 MG Take 50 mg by 0 Active tablet mouth nightly. traZODone (DESYREL) 50 MG Take 50 mg by 0 Active tablet mouth nightly. alum-mag hydroxide-simeth Take by mouth 0 Active (MAALOX MAX) 400-400-40 every 4 (four) mg/5 mL suspension hours as needed for indigestion or heartburn. carboxymethylcellulose 1 1 drop 2 (two) 0 Active % ophthalmic solution times a day as needed (dry eyes). conjugated estrogens Insert 1 g into 30 g 5 2 / Active (Premarin) 0.625 mg/gram the vagina 2020 vaginal cream daily. Insert 1 g vaginally daily for 2 weeks, then 3 times weekly (using applicator) methenamine (HIPREX) 1 Take 1 tablet 60 tablet 5 2 / Active gram tablet (1 g total) by 2020 mouth 2 (two) times a day for 180 days. losartan (COZAAR) 50 MG Take 50 mg by 0 / Discontinued tablet mouth daily. 2019 (Stop T aking Hold for BP at Disch arge) less than 110 and Hr less than 60 conjugated estrogens Insert 0.5 g 0 12/04/ Discontinued (PREMARIN) 0.625 mg/gram into the vagina 2019 (Stop Taking vaginal cream 3 (three) times at Discharge) a week. On Tue. Tue. tuesday lidocaine (LIDODERM) 5 % Place 1 patch 30 patch 0 0 12/04/ Discontinued on the skin 2019 (Stop Ta franklyn daily for 30 at Disc harge) days. Remove & Discard patch within 12 hours or as directed by MD Mcleod XL (PROCARDIA Take 1 tablet 30 tablet 0 0 12/04/ Discontinued XL) 30 MG 24 hr tablet (30 mg total) 0 by mouth daily for 30 days. Lactobacillus Take 1 tablet 0 11/01/12/04/ Di scontinued acidoph-L.bulgar by mouth 2019 (FLORANEX) 1 million cell (three) times a tablet day for 30 days. vancomycin (VANCOCIN) 125 Take 2.5 mL 0 / Discontinued mg/2.5 mL syringe (125 mg total) 2019 by mouth daily for 7 days. vancomycin (VANCOCIN) 125 Take 2.5 mL 0 11/19// Discontinued mg/2.5 mL syringe (125 mg total) 2019 (Stop Taking by mouth every at Di scharge) other day for 14 days. HYDROcodone-acetaminophen Take 1 tablet 0 12/04/ Discontinued (NORCO) 7.5-325 mg per by mouth every (Stop Taking tabletIndications: acute 4 (four) hours at Discharge) pain as needed for moderate pain .acute pain. vancomycin (VANCOCIN) 125 Take 2.5 mL 17.5 mL 0 / mg/2.5 mL syringe (125 mg total) 2019 by mouth daily for 7 days. sulfamethoxazole-trimetho Take 1 tablet 20 tablet 0 11/22/2 12/04/ Discontinued prim (BACTRIM DS) 800-160 by mouth 2 0 (Stop Taking mg per tablet (two) times a at Discharge) day for 10 days. nitrofurantoin Take 50 mg by 0 12/04/ D iscontinued (MACRODANTIN) 50 MG mouth daily. Pt 2020 (Stop Taking capsule stated last at Disch arge) dose is on 2/2 phenazopyridine (AZO Take 97.5 mg by 0 / Discontinued URINARY PAIN RELIEF) 97.5 mouth 3 (three) 2019 (Stop Taking mg tablet times a day as at sudarshan) needed. Lactobacillus Take 1 tablet 90 tablet 0 12/04/2 01/02/ Ex pired acidoph-L.bulgar by mouth 3 2019 (FLORANEX) 1 million cell (three) times a tablet day for 30 days. NIFEdipine XL (PROCARDIA Take 1 tablet 30 tablet 0 12/04/ 0 01/02/ XL) 30 MG 24 hr tablet (30 mg total) 0 by mouth daily for 30 days. conjugated estrogens Insert 0.5 g 30 g 0 12/04/2 01/02/ (PREMARIN) 0.625 mg/gram into the vagina 2019 vaginal cream daily for 30 days. sulfamethoxazole-trimetho Take 1 tablet 12 tablet 0 12/04/2 12/10/ prim (BACTRIM DS) 800-160 by mouth every 020 2020 mg per tablet 12 (twelve) hours for 12 doses. fluconazole (DIFLUCAN) Take 1 tablet 12 tablet 0 12/05/2 / 200 MG tablet (200 mg total) 2019 by mouth daily for 12 days. estrogens, conjugated, Take 0.625 mg 0 / Discontinued (PREMARIN) 0.625 MG by mouth daily. 2020 tablet Take daily for 21 days then do not take for 7 days. ertapenem 1 g in sodium Infuse 1 g into 10 each 1 2 09/29/ chloride 0.9 % MBP 50 mL a venous 2019 IVPB catheter daily for 10 days. furosemide (LASIX) 40 mg Take 1 tablet 60 tablet 0 1 12/20/ tablet (40 mg total) 2019 by mouth 2 (two) times a day for 30 days. losartan (COZAAR) 25 MG Take 1 tablet 30 tablet 0 09/20/2 / tablet (25 mg total) 2019 by mouth daily for 30 days. rosuvastatin (CRESTOR) 20 Take 1 tablet 30 tablet 0 2 10/19/ mg tablet (20 mg total) 2019 by mouth nightly for 30 days. senna (SENOKOT) 8.6 mg Take 1 tablet 90 tablet 1 / tablet by mouth 2 2019 (two) times a day as needed for constipation (stool softening) for up to 30 days. oxyCODone-acetaminophen Take 1 tablet 20 tablet 0 2 / (PERCOCET) 10-325 mg per by mouth every 2019 tabletIndications: acute 6 (six) hours pain as needed for moderate pain for up to 8 days .acute pain. Max Daily Amount: 4 tablets Active Problems Problem Noted Date CHF (congestive heart failure) 09/11/2020 Gastrointestinal hemorrhage 09/11/2020 Overview: Added automatically from request for lesley brown [id number] UTI due to Klebsiella species 12/01/2019 Dehydration [...] Encounters Date Type Specialty Care Team Description 10/16/2020 Telephone Cardiology Maribell Appointment e, Marlene Richey MD 10/02/2020 Office Visit Urology Fito, Recurrent UTI ( Primary Dx); Ashlie Urinary frequen chong Beaver MD 10/02/2020 Travel 09/18/2020 Documentation Medical Records Provider, Unknown 09/17/2020 Surgery Gastroenterology Bismark Dunn COLONOSCOP Y WITH HOT Bozena, DO AND COLD SNARE AND CLIPPING 09/17/2020 Anesthesia Event Gastroenterology Carlos Mendez MD Pasdar-Shiraz i, MD Lio 09/12/2020 Hospital Encounter General Internal Luis, Masoud Acut e UTI (Primary Dx); - Medicine MD Marvin Gastrointestina l hemorrhage, unspecified gastrointestinal hemorrhage type 09/19/2020 09/12/2020 Telephone Urology Ashlie Payton MD 09/11/2020 Travel 12/04/2019 Patient Outreach Quality [place] Cabrera, ALCIDES 12/04/2019 Patient Outreach Quality [place] Cabrera, ALCIDES 12/01/2019 Hospital Encounter General Internal Chloé, UTI d ue to Klebsiella species (Primary Dx); - Medicine Leena De La Acute renal fa ilure, unspecified acute renal failure type (HCC) 12/04/2019 MD Edwin Steward, Franca Krueger MD 11/19/2019 Hospital Encounter General Internal Aranda, Octavio patela of infectious origin (Primary Dx); - Medicine MD Mario Dehydration 11/23/2019 Franca Pineda MD Sadiq, Juanjo Mcwilliams MD after 11/20/2019 Surgical History Surgery Date Site/Laterality Comments CHOLECYSTECTOMY GASTRIC BYPASS SHOULDER SURGERY Left TOTAL ABDOMINAL HYSTERECTOMY BILATERAL SALPINGOOPHORECTOMY CYSTO STENT INSERTION 06/06/2019 N/A Procedure: Cystoscopy; Surgeon: Barbara Rosales MD; Location: [facility] OR; Service: Urology ; Laterality: N/A; HIP SURGERY Right cris TOTAL KNEE ARTHROPLASTY Right COLONOSCOPY 09/17/20 N/A Procedure: COLON OSCOPY WITH 20 HOT AND COLD SNA RE AND CLIPPING; Surge on: Bismark Dunn DO; Location: [facility] E ndoscopy; Service: Gastroe nterology; Laterality: N/A; COLON POLYPS AND DIVERTICULOS IS Medical devices from this surgery are in t he Implants section. ESOPHAGOGASTRODUODENOSCOPY 09/17/20 N/A Proce dure: (EGD) 20 ESOPHAGOGASTRODU ODENOSCOPY (EGD) WITH BIOPS Y; Surgeon: Bismark Dunn DO; Location: [facility] E ndoscopy; Service: Gastroe nterology; Laterality: N/A; Medical devices from this surgery are in t he Implants section. Medical History Medical History Date Comments Hypertension [...] file Not on file Not on file Last Filed Vital Signs Vital Sign Reading Time Taken Comments Blood Pressure 125/65 09/19/2020 7:20 PM COMMUNICATIONS ADVISOR Pulse 58 09/19/2020 7:20 PM COMMUNICATIONS ADVISOR Temperature 36.2 C (97.2 F) 09/19/2020 7:20 PM COMMUNICATIONS ADVISOR Respiratory Rate 18 09/19/2020 7:20 PM COMMUNICATIONS ADVISOR Oxygen Saturation 98% 09/19/2020 7:20 PM COMMUNICATIONS ADVISOR Inhaled Oxygen Concentration - - Weight 62.6 kg (138 lb 1.6 oz) 09/19/2020 5:00 AM COMMUNICATIONS ADVISOR Height 165.1 cm (5' 5") 09/12/2020 12:45 AM COMMUNICATIONS ADVISOR Body Mass Index 22.98 09/12/2020 12:45 AM COMMUNICATIONS ADVISOR Plan of Treatment Health Maintenance Due Date Last Done Comments COVID-19 VACCINE (1 of 2) 1963 BREAST CANCER SCREENING 1997 COLONOSCOPY SCREENING 1997 SHINGLES VACCINES (#1) 1997 INFLUENZA VACCINE 05/31/2020 09/05/2017, 08/05/2016, 2014 65+ PNEUMOCOCCAL VACCINE Completed 10/31/2016, 08/07/2015 Implants Implanted Type Area [employer] Exhibit Technician Device Shelf Model / Identifier Expiration Serial / Date Lot Clip Resolution 360 235cm 2.8mm () - [id number] Medical N/A: N/A [employer] ENDOSCOPY [id number] / Implanted: Qty: 1 on 09/17/2020 by Bismark Dunn DO at [facility] Clips for / Internal Use Screw Screw Procedures Procedure Name Priority Date/Time Associated Diagnosis Comme nts URINE CULTURE Routine 10/02/2020 Recurrent UTI Results for 3:28 PM COMMUNICATIONS ADVISOR this procedure are in the results section. [id number] Routine 10/02/2020 Recurrent UTI Results for 3:17 PM COMMUNICATIONS ADVISOR this procedure are in the results section. POC URINALYSIS DIPSTICK Routine 10/02/2020 Recurrent UTI Res ults for 3:04 PM COMMUNICATIONS ADVISOR this procedure are in the results section. ESTIMATED GFR Routine 09/18/2020 Results for 9:39 AM COMMUNICATIONS ADVISOR this procedure are in the results section. COMPREHENSIVE METABOLIC PANEL Routine 09/18/2020 Results for 9:39 AM COMMUNICATIONS ADVISOR this procedure are in the results section. HC COMPLETE BLD COUNT W/AUTO Routine 09/18/2020 Results for DIFF 9:39 AM COMMUNICATIONS ADVISOR this procedure are in the results section. SURGICAL PATHOLOGY REQUEST Routine 09/17/2020 R esults for 2:43 PM COMMUNICATIONS ADVISOR this procedure are in the results section. ESOPHAGOGASTRODUODENOSCOPY 09/17/2020 Gastrointestin al (EGD) 1:39 PM COMMUNICATIONS ADVISOR hemorrhage, unspecified gastrointestinal hemorrhage type COLONOSCOPY 09/17/2020 Gastrointestinal 1:39 PM COMMUNICATIONS ADVISOR hemorrhage, unspecified gastrointestinal hemorrhage type HC COMPLETE BLD COUNT W/AUTO Routine 09/17/2020 Results for DIFF 8:09 AM COMMUNICATIONS ADVISOR this procedure are in the results section. POC GLUCOSE Routine 09/17/2020 Results for 5:27 AM COMMUNICATIONS ADVISOR this procedure are in the results section. POC GLUCOSE Routine 09/15/2020 Results for 8:39 PM COMMUNICATIONS ADVISOR this procedure are in the results section. ESTIMATED GFR Routine 09/15/2020 Results for 8:41 AM COMMUNICATIONS ADVISOR this procedure are in the results section. COMPREHENSIVE METABOLIC PANEL Routine 09/15/2020 Results for 8:41 AM COMMUNICATIONS ADVISOR this procedure are in the results section. HC COMPLETE BLD COUNT W/AUTO Routine 09/15/2020 Results for DIFF 8:41 AM COMMUNICATIONS ADVISOR this procedure are in the results section. OCCULT BLOOD, STOOL Routine 09/14/2020 Results for 10:05 PM COMMUNICATIONS ADVISOR this procedure are in the results section. FLOW CYTOMETRY EVALUATION Routine 09/14/2020 Re sults for 3:10 PM COMMUNICATIONS ADVISOR this procedure are in the results section. ESTIMATED GFR Routine 09/14/2020 Results for 3:00 PM COMMUNICATIONS ADVISOR this procedure are in the results section. DIRECT JEANINE' (RENETTA) Routine 09/14/2020 Results for 3:00 PM COMMUNICATIONS ADVISOR this procedure are in the results section. RETICULOCYTE COUNT Routine 09/14/2020 Results f or 3:00 PM COMMUNICATIONS ADVISOR this procedure are in the results section. THYROID STIMULATING HORMONE Routine 09/14/2020 Results for 3:00 PM COMMUNICATIONS ADVISOR this procedure are in the results section. LDH Routine 09/14/2020 Results for 3:00 PM COMMUNICATIONS ADVISOR this procedure are in the results section. COMPREHENSIVE METABOLIC PANEL Routine 09/14/2020 Results for 3:00 PM COMMUNICATIONS ADVISOR this procedure are in the results section. HC COMPLETE BLD COUNT W/AUTO Routine 09/14/2020 Results for DIFF 3:00 PM COMMUNICATIONS ADVISOR this procedure are in the results section. CT CHEST WO CONTRAST ABDOMEN Routine 09/13/2020 Results for WO CONTRAST PELVIS WO CONTRAST 6:26 PM COMMUNICATIONS ADVISOR this procedure are in the results section. US DUPLEX VENOUS LOWER Routine 09/13/2020 Resul ts for EXTREMITY BILATERAL 11:53 AM COMMUNICATIONS ADVISOR this procedure are in the results section. ESTIMATED GFR Routine 09/13/2020 Results for 4:20 AM COMMUNICATIONS ADVISOR this procedure are in the results section. B NATRIURETIC PEPTIDE Routine 09/13/2020 Result s for 4:20 AM COMMUNICATIONS ADVISOR this procedure are in the results section. COMPREHENSIVE METABOLIC PANEL Routine 09/13/2020 Results for 4:20 AM COMMUNICATIONS ADVISOR this procedure are in the results section. HC COMPLETE BLD COUNT W/AUTO Routine 09/13/2020 Results for DIFF 4:20 AM COMMUNICATIONS ADVISOR this procedure are in the results section. FOLATE LEVEL Routine 09/13/2020 Results for 4:20 AM COMMUNICATIONS ADVISOR this procedure are in the results section. VITAMIN B12 LEVEL Routine 09/13/2020 Results fo r 4:20 AM COMMUNICATIONS ADVISOR this procedure are in the results section. VENIPUNC NEED PHYS SKILL,DX OR Routine 09/12/2020 Acute UTI Results for RX 8:00 PM COMMUNICATIONS ADVISOR this procedure are in the results section. TTE COMPLETE, WO CONTRAST, W Routine 09/12/2020 Results for DOPPLER ([id number]) 5:20 PM COMMUNICATIONS ADVISOR this procedure are in the results section. SMEAR REVIEW Routine 09/12/2020 Results for 6:45 AM COMMUNICATIONS ADVISOR this procedure are in the results section. ESTIMATED GFR Routine 09/12/2020 Results for 6:45 AM COMMUNICATIONS ADVISOR this procedure are in the results section. FERRITIN LEVEL Routine 09/12/2020 Results for 6:45 AM COMMUNICATIONS ADVISOR this procedure are in the results section. TOTAL IRON BINDING CAPACITY Routine 09/12/2020 Results for 6:45 AM COMMUNICATIONS ADVISOR this procedure are in the results section. THYROID STIMULATING HORMONE Routine 09/12/2020 Results for 6:45 AM COMMUNICATIONS ADVISOR this procedure are in the results section. COMPREHENSIVE METABOLIC PANEL Routine 09/12/2020 Results for 6:45 AM COMMUNICATIONS ADVISOR this procedure are in the results section. HC COMPLETE BLD COUNT W/AUTO Routine 09/12/2020 Results for DIFF 6:45 AM COMMUNICATIONS ADVISOR this procedure are in the results section. URINE CULTURE Routine 09/12/2020 Results for 2:56 AM COMMUNICATIONS ADVISOR this procedure are in the results section. URINALYSIS SCREEN AND Routine 09/12/2020 Result s for MICROSCOPY, WITH REFLEX TO 2:34 AM COMMUNICATIONS ADVISOR t his CULTURE procedure are in the results section. COVID-19 QUALITATIVE PCR STAT 09/12/2020 Res ults for 2:34 AM COMMUNICATIONS ADVISOR this procedure are in the results section. ESTIMATED GFR Routine 12/04/2019 Results for 7:50 AM COMMUNICATIONS ADVISOR this procedure are in the results section. BASIC METABOLIC PANEL Routine 12/04/2019 Result s for 7:50 AM COMMUNICATIONS ADVISOR this procedure are in the results section. XR CHEST 1 VW PORTABLE Routine 12/03/2019 Resul ts for 7:20 AM COMMUNICATIONS ADVISOR this procedure are in the results section. ESTIMATED GFR Routine 12/03/2019 Results for 5:20 AM COMMUNICATIONS ADVISOR this procedure are in the results section. BASIC METABOLIC PANEL Routine 12/03/2019 Result s for 5:20 AM COMMUNICATIONS ADVISOR this procedure are in the results section. URINE CULTURE Routine 12/02/2019 Results for 12:53 PM COMMUNICATIONS ADVISOR this procedure are in the results section. URINALYSIS SCREEN AND Routine 12/02/2019 Result s for MICROSCOPY, WITH REFLEX TO 11:30 AM COMMUNICATIONS ADVISOR t his CULTURE procedure are in the results section. AMIKACIN LEVEL, PEAK Routine 12/02/2019 Results for 10:15 AM COMMUNICATIONS ADVISOR this procedure are in the results section. AMIKACIN LEVEL, TROUGH Routine 12/02/2019 Resul ts for 8:50 AM COMMUNICATIONS ADVISOR this procedure are in the results section. US RENAL Routine 12/02/2019 Results for 5:59 AM COMMUNICATIONS ADVISOR this procedure are in the results section. ESTIMATED GFR Routine 12/02/2019 Results for 5:10 AM COMMUNICATIONS ADVISOR this procedure are in the results section. URIC ACID LEVEL Routine 12/02/2019 Results for 5:10 AM COMMUNICATIONS ADVISOR this procedure are in the results section. CREATINE KINASE, TOTAL (CPK) Routine 12/02/2019 Results for 5:10 AM COMMUNICATIONS ADVISOR this procedure are in the results section. COMPREHENSIVE METABOLIC PANEL Routine 12/02/2019 Results for 5:10 AM COMMUNICATIONS ADVISOR this procedure are in the results section. HC COMPLETE BLD COUNT W/AUTO Routine 12/02/2019 Results for DIFF 5:10 AM COMMUNICATIONS ADVISOR this procedure are in the results section. CREATININE LEVEL, URINE, Routine 12/01/2019 Res ults for RANDOM 7:30 PM COMMUNICATIONS ADVISOR this procedure are in the results section. PROTEIN, URINE, RANDOM Routine 12/01/2019 Resul ts for 7:30 PM COMMUNICATIONS ADVISOR this procedure are in the results section. LACTIC ACID LEVEL, SEPSIS - Timed 12/01/2019 Results for NOW AND REPEAT 2X EVERY 3 7:30 AM COMMUNICATIONS ADVISOR th is HOURS procedure are in the results section. XR CHEST 1 VW PORTABLE STAT 12/01/2019 Resul ts for 5:32 AM COMMUNICATIONS ADVISOR this procedure are in the results section. URINE CULTURE STAT 12/01/2019 Results for 5:27 AM COMMUNICATIONS ADVISOR this procedure are in the results section. BLOOD CULTURE, AEROBIC & Routine 12/01/2019 Res ults for ANAEROBIC 5:05 AM COMMUNICATIONS ADVISOR this procedure are in the results section. URINALYSIS SCREEN AND STAT 12/01/2019 Result s for MICROSCOPY, WITH REFLEX TO 4:38 AM COMMUNICATIONS ADVISOR t his CULTURE procedure are in the results section. ESTIMATED GFR STAT 12/01/2019 Results for 4:35 AM COMMUNICATIONS ADVISOR this procedure are in the results section. LACTIC ACID LEVEL, SEPSIS - STAT 12/01/2019 Results for NOW AND REPEAT 2X EVERY 3 4:35 AM COMMUNICATIONS ADVISOR th is HOURS procedure are in the results section. COMPREHENSIVE METABOLIC PANEL STAT 12/01/2019 Results for 4:35 AM COMMUNICATIONS ADVISOR this procedure are in the results section. PARTIAL THROMBOPLASTIN TIME STAT 12/01/2019 Results for (PTT) 4:35 AM COMMUNICATIONS ADVISOR this procedure are in the results section. PROTHROMBIN TIME WITH INR STAT 12/01/2019 Re sults for 4:35 AM COMMUNICATIONS ADVISOR this procedure are in the results section. HC COMPLETE BLD COUNT W/AUTO STAT 12/01/2019 Results for DIFF 4:35 AM COMMUNICATIONS ADVISOR this procedure are in the results section. BLOOD CULTURE, AEROBIC & Routine 12/01/2019 Res ults for ANAEROBIC 4:35 AM COMMUNICATIONS ADVISOR this procedure are in the results section. ESTIMATED GFR Routine 11/23/2019 Results for 3:25 AM COMMUNICATIONS ADVISOR this procedure are in the results section. BASIC METABOLIC PANEL Routine 11/23/2019 Result s for 3:25 AM COMMUNICATIONS ADVISOR this procedure are in the results section. HC COMPLETE BLD COUNT W/AUTO Routine 11/23/2019 Results for DIFF 3:25 AM COMMUNICATIONS ADVISOR this procedure are in the results section. GASTROINTESTINAL PANEL Routine 11/21/2019 Resul ts for 8:46 PM COMMUNICATIONS ADVISOR this procedure are in the results section. TROPONIN Timed 11/21/2019 Results for 5:20 PM COMMUNICATIONS ADVISOR this procedure are in the results section. XR CHEST 1 VW PORTABLE Routine 11/21/2019 Resul ts for 12:34 PM COMMUNICATIONS ADVISOR this procedure are in the results section. ECG 12-LEAD Routine 11/21/2019 Results for 11:26 AM COMMUNICATIONS ADVISOR this procedure are in the results section. TROPONIN Timed 11/21/2019 Results for 11:15 AM COMMUNICATIONS ADVISOR this procedure are in the results section. ESTIMATED GFR Routine 11/21/2019 Results for 5:15 AM COMMUNICATIONS ADVISOR this procedure are in the results section. COMPREHENSIVE METABOLIC PANEL Routine 11/21/2019 Results for 5:15 AM COMMUNICATIONS ADVISOR this procedure are in the results section. HC COMPLETE BLD COUNT W/AUTO Routine 11/21/2019 Results for DIFF 5:15 AM COMMUNICATIONS ADVISOR this procedure are in the results section. URINE CULTURE Routine 11/20/2019 Results for 3:48 PM COMMUNICATIONS ADVISOR this procedure are in the results section. GRAM STAIN Routine 11/20/2019 Results for 3:48 PM COMMUNICATIONS ADVISOR this procedure are in the results section. URINALYSIS SCREEN AND Routine 11/20/2019 Result s for MICROSCOPY, WITH REFLEX TO 3:21 PM COMMUNICATIONS ADVISOR t his CULTURE procedure are in the results section. after 11/20/2019 Results Urine culture (10/02/2020 3:28 PM COMMUNICATIONS ADVISOR)Only the most recent of5 resultswithin the time period is included. Pathologist Sig [facility] Urine culture Culture shows less than 10,0 00 colony forming units of bacteria per [facility] milliliter of urine. This colony count is not generall y considered to be clinically significant. Specimen Urine Narrative Performed At Performed at: - [facility] [address] [place], [place] [address] [address] [employer] Concentration: Steve Cisneros MD, Phone: [phone] Performing Organization Address City/State/ZIP Code Phon e Number [facility] POC BLADDER SCAN/PVR (10/02/2020 3:17 PM COMMUNICATIONS ADVISOR) Pathologist Sig [facility] Volume 0mlComment: PVR Specimen Urine POC urinalysis dipstick (10/02/2020 3:04 PM COMMUNICATIONS ADVISOR) Color urine, POC Yellow Clarity urine, POC Clear Glucose urine, POC Negative Negative Bilirubin urine, POC Negative Negative Ketones urine, POC Negative Negative Specific gravity 1.020 1.005 - 1.030 urine, POC Blood urine, POC Trace (A) Negative pH urine, POC 5.5 5.0, 5.5, 6.0, 6.5, 7.0, 7.5, 8.0, 8.5 Protein urine, POC Negative Negative Urobilinogen urine, <2.0 <2.0 POC Nitrite urine, POC Negative Negative Leukocyte esterase Moderate (A) Negative urine, POC Specimen Urine Estimated GFR (09/18/2020 9:39 AM COMMUNICATIONS ADVISOR)Only the most recent of11 resultswithin the time period is included. Pathologist [facility] Estimated GFR 68 mL/min/1.73 [facility] Comment: m2 ROMULUS Catergory Units Interpretation [facility] P[facility] G1 >=90 [...] Initiative ([id number]) published in 2014. Specimen Plasma Performing Organization Address City/State/ZIP Code Phon e Number [facility] DEPARTMENT OF PATHOLOGY [address] [facility] [address] AND GENOMIC MEDICINE [facility] [address] [place] [address] HOSPITAL CBC with platelet and differential (09/18/2020 9:39 AM COMMUNICATIONS ADVISOR)Only the most recent of10 resultswithin the time period is included. WBC 4.4 (L) 4.5 - 11.0 k/uL [facility] RBC 2.54 (L) 4.20 - 5.50 [facility] m/uL [facility] HGB 8.3 (L) 12.0 - 16.0 [facility] g/dL [facility] HCT 26.8 (L) 37.0 - 47.0 % [facility] MCV 105.5 (H) 82.0 - 100.0 fL [facility] MCH 32.7 27.0 - 34.0 pg [facility] MCHC 31.0 31.0 - 37.0 [facility] g/dL [facility] RDW - SD 49.1 37.0 - 55.0 fL [facility] MPV 10.3 6.9 - 11.0 fL [facility] Platelet count 105 (L) 150 - 400 K/uL [facility] Nucleated RBC 0.00 /100 WBC [facility] Neutrophils 72.1 (H) 39.0 - 69.0 % [facility] Lymphocytes 11.3 (L) 25.0 - 45.0 % [facility] Monocytes 10.9 (H) 0.0 - 10.0 % [facility] Eosinophils 5.0 0.0 - 5.0 % [facility] Basophils 0.5 0.0 - 1.0 % [facility] Immature granulocytes 0.2 0.0 - 1.0 % [facility] Specimen Plasma Performing Organization Address City/State/ZIP Code Phon e Number [facility] DEPARTMENT OF PATHOLOGY [address] [facility] [address] AND GENOMIC MEDICINE [facility] [address] [facility] [place] [address] [facility] Comprehensive metabolic panel (09/18/2020 9:39 AM COMMUNICATIONS ADVISOR)Only the most recent of8 resultswithin the time period is included. Pathologist Sig nature Sodium 141 135 - 148 mEq/L [facility] Potassium 4.0 3.5 - 5.0 mEq/L [facility] Chloride 101 98 - 112 mEq/L [facility] CO2 32 (H) 24 - 31 mEq/L [facility] Anion gap 8@ANIO 7 - 15 mEq/L [facility] BUN 10 8 - 23 mg/dL [facility] Creatinine 0.85 0.50 - 0.90 [facility] mg/dL [facility] Glucose 111 (H) 65 - 99 mg/dL [facility] Calcium 8.8 8.8 - 10.2 mg/dL [facility] Protein 4.7 (L) 6.3 - 8.3 g/dL [facility] Albumin 3.1 (L) 3.5 - 5.0 g/dL [facility] A/G ratio 1.9 0.7 - 3.8 [facility] Alkaline phosphatase 116 (H) 35 - 104 U/L [facility] AST 19 10 - 35 U/L [facility] ALT 12 5 - 50 U/L [facility] Total bilirubin 0.3 0.2 - 1.2 mg/dL [facility] Specimen Plasma Performing Organization Address [facility] Phon e Number [facility] DEPARTMENT OF PATHOLOGY [id number] [address] X [phone] AND GENOMIC MEDICINE [address] [place] [address] [facility] Surgical pathology request (09/17/2020 2:43 PM COMMUNICATIONS ADVISOR) [facility] DEPARTMENT OF PATHOLOGY AND GENOMIC MEDICINE Surgical pathology See link below [facility] DEPARTMENT OF report for PDF Lab PATHOLOGY AND Report GENOMIC MEDICINE Result status This is Final [facility] DEPARTMENT OF Report for PATHOLOGY AND [id number] GENOMIC MEDICINE Specimen Performing Organization Address [facility] Phon e Number [facility] DEPARTMENT OF PATHOLOGY [id number] [address] X [phone] AND GENOMIC [facility] POC glucose (09/17/2020 5:27 AM COMMUNICATIONS ADVISOR)Only the most recent of2 resultswithin the time period is included. Pathologist Rogelio manning POC glucose 79 65 - 99 mg/dL [facility] Comment: [facility] Fleet Director Name: Kevin Tomlin Device ID: [id number] Chartable: RN Notified Specimen Blood Performing Organization Address [facility] Phon e Number [facility] DEPARTMENT OF PATHOLOGY [id number] [address] X [phone] AND GENOMIC MEDICINE [facility] [id number] [place] [address] X [address] [facility] Occult blood, stool (09/14/2020 10:05 PM COMMUNICATIONS ADVISOR) Pathologist Deni Occult blood, Positive for Occult blood (A) [facility] stool Comment: ROMULUS Specimen Information HOSPITAL Specimen Source: Stool Specimen Site: Nonpreserved Specimen Stool - Nonpreserved Performing Organization Address [facility] Phon e Number [facility] DEPARTMENT OF PATHOLOGY [id number] [address] X [address] X [address] [place] [address] Flow cytometry evaluation (09/14/2020 3:10 PM COMMUNICATIONS ADVISOR) [facility] Flow cytometry See link below [facility] evaluation for PDF Lab HOSPITAL Report Specimen Performing Organization Address City/[facility]/ZIP Code Phon e Number [facility] DEPARTMENT OF PATHOLOGY AND [address] [place] [phone] [facility] Direct Jeanine' (RENETTA) (09/14/2020 3:00 PM COMMUNICATIONS ADVISOR) Pathologist Sig [facility] [id number] Polyspecific NEG [facility] Specimen Plasma Performing Organization Address [facility] Phon e Number [facility] DEPARTMENT OF PATHOLOGY [address] [place] [address] Reticulocyte count (09/14/2020 3:00 PM COMMUNICATIONS ADVISOR) Pathologist Sig [facility] Retic %, auto 2.3 (H) 0.5 - 2.1 % [facility] Retic absolute, auto 0.0587 0.0210 - 0.1155 [facility] m/uL [facility] Specimen Plasma Performing Organization Address [facility] Phon e Number [facility] DEPARTMENT OF PATHOLOGY [address] [place] [address] Thyroid stimulating hormone (09/14/2020 3:00 PM COMMUNICATIONS ADVISOR)Only the most recent of2 resultswithin the time period is included. Pathologist Sig [facility] TSH 3.66 0.27 - 4.20 uIU/mL [facility] Specimen Plasma Performing Organization Address [facility] Phon e Number [facility] DEPARTMENT OF PATHOLOGY [address] [place] [address] X [facility] AND [address] LDH (09/14/2020 3:00 PM COMMUNICATIONS ADVISOR) Pathologist Sig [facility] LDH 168 87 - 225 U/L [facility] Specimen Plasma Performing Organization Address City/State/ZIP Code Phon e Number [facility] DEPARTMENT OF PATHOLOGY [address] [facility] [address] AND GENOMIC MEDICINE [facility] [address] [facility] [place] [address] [facility] CT Chest Wo Contrast Abdomen Wo Contrast Pelvis Wo Contrast (09/13/2020 6:26 PM COMMUNICATIONS ADVISOR) Specimen Narrative Performed At EXAMINATION: CT CHEST WO CONTRAST ABDOMEN WO CONTRAS T PELVIS WO HM [facility] CONTRAST CLINICAL HISTORY: pleural erffusion TECHNIQUE: Multiple axial images of the chest, abdom en, and pelvis were obtained without intravenous contrast. .The lac k of intravenous contrast reduces the sensitivity of detecting solid or robin disease. Sagittal and coronal computerized reform atted images were obtained. All CT images were acquired us ing radiation dose lowering technique with automated exposure control and / or iterative reconstruction. COMPARISON: CT abdomen and pelvis 09/30 IMPRESSION: CHEST: 1. Small bilateral pleural effusions slightly greater on the right, with compressive atelectasis at the bases. Mild bibasilar s carring. Lungs otherwise clear. 2.No axillary, mediastinal or definite hilar lymphaden opathy identified on this limited noncontrast exam. Heart is upper john l. No pericardial effusion. 3.Small to moderate hiatal hernia with a parasagittal component. The esophagus is moderately distended with residual food i n the distal esophagus, and gas throughout, likely from associated gastroesophageal reflux. 4.Calcified plaque within the thoracic aorta. Moderate ly calcified coronary arteries. ABDOMEN: 1.Evaluation of solid abdominal organs i s limited without IV contrast. 2. Prominent fecal material within the colon may indic ate constipation. The appendix appears normal. 3.Status post gastric bypass surgery. The JJ anastomos is is distended measuring 5.5 cm with an air-fluid level, larger than prior, and the gastric remnant is mildly to moderately distended grea ter than prior also, with an air-fluid level, though th e duodenum is normal in caliber. The small bowel distal to the JJ anastomosis is collapsed. 4.Bowel loops otherwise grossly unremarkable without e nteric contrast. Motion limited exam. 5.Cholecystectomy. Liver, spleen grossly unremarkable without contrast. The pancreas atrophic likely from senesc ence. 6.Mild nodular thickening of the left adrenal is stabl e. Right adrenal unremarkable. Perisplenic collaterals adjacent to the left adrenal, as before. 7.Calcified plaque and tortuosity of the abdominal aorta without AAA. 8.Multifocal renal cortical scarring. A subcentimeter hyperdense lesion in the upper pole left kidney is stable in size from p rior, probably a hemorrhagic/proteinaceous cyst, though 6 month follow- up advised. Fluid density structures elsewhere maximum 4.5 cm are likely all simple cysts. Otherwise grossly unremarkable without contrast. 9.Mild fullness of the renal collecting systems bilate rally is new from prior, though no obstructing source is identified. The urinary bladder is slightly distended. PELVIS: 1. Moderate anasarca. 2.The right parasagittal. Local hernia c ontaining fat only. 3.Mild diffuse mesenteric edema. Trace presacral stran ding and free fluid. No definite lymphadenopathy is detected on bonnie on limited noncontrast enhanced exam. 4.Urinary bladder slightly distended otherwise grossly unremarkable. Hysterectomy. 5.Neurostimulator device in the upper left buttock wit h the lead extending through the right sacral neura l foramen. 6.An intramedullary nail in the right fe mur partially seen. 7.Ununited fracture of the distal left clavicle partia lly seen. Heterotopic ossification anterior to the right shoulde r partially seen. Healed rib fractures. Stable compression fracture at L1. Mild scoliosis. SUMMARY: Small bilateral pleural effusions. Status post gastric bypass surgery, with dilation at t he JJ anastomosis, and proximally in the pancreaticobiliary limb, which m ay indicate a mild obstruction at the JJ anastomosis. No findings specifi c for an internal hernia. Mild mesenteric edema is not localized to the level of the anastomosis. Follow-up to ensure resolution is recommended. Esophageal distention may be due to gastroesophageal r eflux in association with the hiatal hernia, and/ or the small bowel obstruction. Fullness of the renal collecting systems bilaterally w ithout obstructing lesion identified. Other findings see ab ove [id number] Procedure Note Hm Interface, Radiology Results Incoming - 09/13/2020 6:43 PM COMMUNICATIONS ADVISOR EXAMINATION: CT CHEST WO CONTRAST ABDOMEN WO CONTRAST PELVIS WO CONTRAST CLINICAL HISTORY: pleural erffusion TECHNIQUE: Multiple axial images of the chest, abdomen, and pelvis were obtained without intravenous contrast. .The lack of intravenous contrast reduces the sensitivity of detecting solid organ disease. Sagittal and coronal computerized reformatted images were obtained. All CT images wer e acquired using radiation dose lowering technique with automated exposure control and / or iterative reconstruction. COMPARISON: CT abdomen and pelvis 10/13 IMPRESSION: CHEST: 1. Small bilateral pleural effusions sli ghtly greater on the right, with compressive atelectasis at the bases. Mild bibasilar scarring. Lungs otherwise clear. 2.No axillary, mediastinal or definite h ilar lymphadenopathy identified on this limited noncontrast exam. Heart is upper normal. No pericardial effusion. 3.Small to moderate hiatal hernia with a parasagittal component. The esophagus is moderately distended with residual food in the distal esophagus, and gas throughout, likely from associated gastroesophageal reflux. 4.Calcified plaque within the thoracic a carolin. Moderately calcified coronary arteries. ABDOMEN: 1.Evaluation of solid abdominal organs i s limited without IV contrast. 2. Prominent fecal material within the c olon may indicate constipation. The appendix appears normal. 3.Status post gastric bypass surgery. Th e JJ anastomosis is distended measuring 5.5 cm with an air-fluid level, larger than prior, and the gastric remnant is mildly to moderately distended greater than prior also, with an air-fluid level, though the duodenum is normal in caliber. The small bowel distal to the JJ anastomosis is collapsed. 4.Bowel loops otherwise grossly unremark able without enteric contrast. Motion limited exam. 5.Cholecystectomy. Liver, spleen grossly unremarkable without contrast. The pancreas atrophic likely from senescence. 6.Mild nodular thickening of the left ad renal is stable. Right adrenal unremarkable. Perisplenic collaterals adjacent to the left adrenal, as before. 7.Calcified plaque and tortuosity of the abdominal aorta without AAA. 8.Multifocal renal cortical scarring. A subcentimeter hyperdense lesion in the upper pole left kidney is stable in size from prior, probably a hemorrhagic/proteinaceous cyst, though 6 month follow-up advised. Fluid density structures elsewhere maximum 4.5 cm are likely all simple cysts. Othe rwise grossly unremarkable without contrast. 9.Mild fullness of the renal collecting systems bilaterally is new from prior, though no obstructing source is identified. The urinary bladder is slightly distended. PELVIS: 1. Moderate anasarca. 2.The right parasagittal. Local hernia c ontaining fat only. 3.Mild diffuse mesenteric edema. Trace p resacral stranding and free fluid. No definite lymphadenopathy is detected on motion limited noncontrast enhanced exam. 4.Urinary bladder slightly distended oth erwise grossly unremarkable. Hysterectomy. 5.Neurostimulator device in the upper le ft buttock with the lead extending through the right sacral neural foramen. 6.An intramedullary nail in the right fe mur partially seen. 7.Ununited fracture of the distal left c lavicle partially seen. Heterotopic ossification anterior to the right shoulder partially seen. Healed rib fractures. Stable compression fracture at L1. Mild scoliosis. SUMMARY: Small bilateral pleural effusions. Status post gastric bypass surgery, with dilation at the JJ anastomosis, and proximally in the pancreaticobiliary limb, which may indicate a mild obstruction at the JJ anastomosis. No findings specific for an internal hernia. Mild mesenteric edema is not localized to the level of the anastomos is. Follow-up to ensure resolution is recommended. Esophageal distention may be due to preeti roesophageal reflux in association with the hiatal hernia, and/or the small bowel obstruction. Fullness of the renal collecting systems bilaterally without obstructing lesion identified. Other findings see above [id number] Performing Organization Address City/State/ZIP Code Phon e Number [facility] [address] [place] [address] Us duplex venous lower extremity (09/13/2020 11:53 AM COMMUNICATIONS ADVISOR) Specimen Narrative Performed At EXAMINATION: US DUPLEX VENOUS LOWER EX TREMITY BILATERAL [facility] CLINICAL HISTORY: Leg swelling or pain DVT suspected COMPARISON: 02/06/2019 TECHNIQUE: Grayscale, color Doppler, and spectral wa veform analysis of the bilateral lower extremity deep venous systems was performed. The bilateral common femoral, superficial femoral, proxima l deep femoral, greater saphenous, and popliteal veins w ere evaluated. The calf vessels were also e valuated. FINDINGS: The bilateral common femoral, superficial femoral, and popliteal veins are compressible. They demonstrate normal venous wavef orms and response to augmentation. There is flow in the vi sualized calf veins. There is no evidence of a popliteal or B gagandeep's cyst. IMPRESSION: No evidence of DVT within the bilateral lower extremit y named vessels as described above. [facility]-[id number] Procedure Note Interface, Radiology Results Incoming - 09/13/2020 12:06 PM COMMUNICATIONS ADVISOR EXAMINATION: US DUPLEX VENOUS LOWER EXTREMITY BILATERAL CLINICAL HISTORY: Leg swelling or pain DVT suspected COMPARISON: 02/06/2019 TECHNIQUE: Grayscale, color Doppler, an d spectral waveform analysis of the bilateral lower extremity deep venous systems was performed. The bilateral common femoral, superficial femoral, proximal deep femoral, greater saphenous, and popliteal veins w ere evaluated. The calf vessels were also e valuated. FINDINGS: The bilateral common femoral, superficia l femoral, and popliteal veins are compressible. They demonstrate normal venous waveforms and response to augmentation. There is flow in the visualized calf veins. There is no evidence of a popliteal or B gagandeep's cyst. IMPRESSION: No evidence of DVT within the bilateral lower extremity named vessels as described above. [facility]-[id number] Performing Organization Address [facility]/ZIP Code Phon e Number [facility] [address] [place] [id number] B natriuretic peptide (09/13/2020 4:20 AM COMMUNICATIONS ADVISOR) Pathologist Sig nature BNP 344 (H) 0 - 100 pg/mL [facility] Specimen Blood Performing Organization Address City/[facility]/ZIP Code Phon e Number [facility] DEPARTMENT OF PATHOLOGY [address] [facility] [address] AND [facility] [address] [facility] X [address] HOSPITAL Folate level (09/13/2020 4:20 AM COMMUNICATIONS ADVISOR) Pathologist Sig [facility] Folate 17.6 4.8 - 24.2 ng/mL [facility] Specimen Serum Performing Organization Address City/[facility]/ZIP [facility] Phon e Number [facility] DEPARTMENT OF PATHOLOGY AND [address] [place] [address] [phone] [address] Vitamin B12 level (09/13/2020 4:20 AM COMMUNICATIONS ADVISOR) Vitamin B12 376 211 - 946 [facility] Comment: pg/mL HOSPITAL Significant overlap exists between normal and deficien cy states. However, most patients with deficiencies will have Ser um B12 <200 pg/mL. Specimen Serum Performing Organization Address [facility]/ZIP Code Phon e Number [facility] DEPARTMENT OF PATHOLOGY AND [address] [place] [address] [phone] [address] [facility] NEED PHYS SKILL,DX OR RX (09/12/2020 8:00 PM COMMUNICATIONS ADVISOR) Narrative Performed At Handy Moore NP-C 09/13/2020 5 :55 AM Midline Date/Time: 09/12/2020 8:00 PM Performed by: Handy Moore NP-C Authorized by: Handy Moore NP-C [place] protocol: Procedure explained and questions ans wered to patient or proxy's satisfaction: yes Relevant documents present and verifi ed: yes Test results available and properly l abeled: yes Imaging studies available: yes Required blood products, implants, de vices, and special equipment available: yes Site/side marked: yes Immediately prior to procedure, a carmen simpson out was called: yes Patient identity confirmed: Verball y with patient and arm band Pre-procedure details: Hand hygiene: Hand hygiene performed prior to insertion Skin preparation: 2% chlorhexidine Skin preparation agent: Dried prior t o procedure Anesthesia (see MAR for exact dosages): Anesthesia method: Local infiltrati on Local anesthetic: Lidocaine 1% w/o epi MidLine Placement Details (Will create a n LDA): Indication: Poor venous access Location: Right cephalic Catheter Lumen(s): Single lumen Catheter size: 4 Fr Procedure details: Landmarks identified: yes Ultrasound guidance: yes Sterile ultrasound techniques: Sterile gel and ster ile probe covers were used Number of attempts: 1 Number of MidLine kits used during pr ocedure: 1 Extra guide wire required?: No Purpose of procedure: Midline Place ment Patency/Placement: Flushed with 10 mL normal sali ne and positive blood return MidLine placed utilizing ultrasound-guided Modified Seldinger Technique: Yes Dressing/Securement: Dressing dry and intact and antimicrobial dressing applied Post-procedure details: Patient tolerance of procedure: Mary erated well, no immediate complications Transthoracic Echocardiogram Complete, (w Contrast, Strain and 3D if needed) (09/12/2020 5:20 PM COMMUNICATIONS ADVISOR) Pathologist Sig nature Ao Root Diameter 3.10 cm HM [facility] AoV Mean PG 5.60 mmHg [facility] AoV Peak PG 10.39 mmHg [facility] AoV Vmax 1.67 m/s [facility] AoV VTI 0.41 m HM [facility] IVS,d 0.87 cm [facility] IVS/LVPW,2D 0.89 [facility] Left Atrium Dimension Anterior 4.05 cm HM [facility] LV,d 4.29 cm HM [facility] LV EF,2D 86.36 % [facility] LV,s 2.21 cm [facility] LVOT Vmax 1.12 m/s [facility] LVOT VTI 0.30 m HM [facility] LVPWD,d 0.98 cm HM [facility] PV Pk Grad 5.09 mmHg [facility] PV VMAX 1.13 m/s [facility] RVSP (TR) 28.92 mmHg [facility] TR Vpeak 2.32 mm/s [facility] RA pressure 10.00 mmHg [facility] TR pk grad 18.92 mmHg [facility] AV LVOT peak gradient 4.84 mmHg [facility] RVSP 28.92 mmHg [facility] Ao Root Diameter 3.10 cm HM [facility] MV mean gradient 2.35 mmHg [facility] LV SYS VOL 16.33 ml HM [facility] LV ZAMORANO VOL 82.45 ml HM [facility] LA area s A4C 14.77 cm2 HM [facility] LV SV Teich 2D 66.13 ml HM [facility] LV Vol s Teich PSAX 16.33 ml HM [facility] MR peak grad 5.50 mmHg HM [facility] MV Vmax 1.15 m HM [facility] MV VTI Tips 0.28 m HM [facility] AoV Vmn 1.10 HM [facility] LV FS Teich 2D 48.52 HM [facility] LV FS Cube 2D 48.52 [facility] LVOT Vmn 0.74 [facility] LVOT mean grad 2.48 mmHg [facility] MAX Pred HR 146.93 HM [facility] 85 of MPHR 124.89 HM [facility] Calc MPHR 146.93 bpm HM [facility] LV SV Cube 2D 68.02 ml HM [facility] LV vol d cube 2D 78.76 ml HM SYNGO LV vol s cube 2D 10.74 ml HM [facility] Pred Exer Dur R1 6.49 HM [facility]NGO Pred METS R1 5.20 HM [facility] LA Vol MOD A4C 33.84 ml HM [facility] Velocity Ratio (V1/V2) 0.67 m/s HM [facility] EF 80.19 % SYN[facility] Specimen Narrative Performed At This result has an attachment that is no t available. Left ventricular systolic function is normal. HM [facility] Left Ventricular ejection fraction is 55 - 60%. Performing Organization Address City/State/ZIP Code Phon e Number SYN[facility] [address] [place] [address], Smear review (09/12/2020 6:45 AM COMMUNICATIONS ADVISOR) Platelet slide review Decreased (A) [facility] Polychromasia Moderate [facility] Ovalocytes Moderate [facility] Enlarged platelets Moderate (A) [facility] Specimen Plasma Performing Organization Address [facility] Phon e Number [facility] DEPARTMENT OF PATHOLOGY [id number] [place] [address] Total iron binding capacity (09/12/2020 6:45 AM COMMUNICATIONS ADVISOR) Pathologist Sig nature Iron level 80 37 - 145 ug/dL [facility] Iron binding capacity 180 (L) 260 - 460 ug/dL [facility] % Saturation 44.4 (H) 15.0 - 38.0 % [facility] Specimen Serum Performing Organization Address [facility] Phon e Number [facility] DEPARTMENT OF PATHOLOGY [id number] [place] [address] Ferritin level (09/12/2020 6:45 AM COMMUNICATIONS ADVISOR) Pathologist Sig nature Ferritin level 464 (H) 13 - 150 ng/mL [facility] Specimen Serum Performing Organization Address [facility] Phon e Number [facility] DEPARTMENT OF PATHOLOGY [id number] [place] [address] Urinalysis screen and microscopy, with reflex to culture (09/12/2020 2:34 AM COMMUNICATIONS ADVISOR)Only the most recent of4 resultswithin the time period is included. Specimen site Ramires [facility] Color, UA Sharonda [facility] Appearance, UA Clear [facility] Specific gravity, UA 1.014 1.001 - 1.030 [facility] pH, UA 5.0 5.0 - 9.0 [facility] Protein, UA Negative Negative [facility] Glucose, UA Negative Negative [facility] Ketones, UA Negative Negative [facility] Bilirubin, UA Negative Negative [facility] Blood, UA Small (A) Negative [facility] Nitrite, UA Positive (A) Negative [facility] Urobilinogen, UA <2.0 <2.0 E.U./dL [facility] Leukocyte esterase, Moderate (A) Negative [facility] Epithelial cells, UA 10 /HPF [facility] WBC, UA >200 (H) 0 - 4 /HPF [facility] RBC, UA 14 (H) 0 - 5 /HPF [facility] Bacteria, UA Many (A) None seen [facility] WBC clumps, UA Few (A) [facility] Yeast, UA None seen [facility] Yeast with None seen [facility] pseudohyphae, UA [facility] Hyaline casts, UA 0-2 /LPF [facility] Specimen Urine Performing Organization Address [facility] Phon e Number [facility] DEPARTMENT OF PATHOLOGY [address] [facility] [address] AND GENOMIC MEDICINE [facility] [id number] [place] [address] HOSPITAL COVID-19 qualitative PCR (09/12/2020 2:34 AM COMMUNICATIONS ADVISOR) Interpretation Negative results do not prec lude 2019-nCoV infection and should not be used as the sole basis for treatment or other patient management decisions. Negative results must be combined with clinical observations, patient history, and epidemiological [place] information. [facility] COVID-19 qualitative Not-Detected Not-Detecte [place] PCR [facility] d [facility] See link below for [place] PCR PDF Lab BUDDHIST ReportComment: Case HOSPITAL Number: [id number] Specimen Nasal swab Performing Organization Address City/[facility]/ZIP [facility] Phon e Number [facility] DEPARTMENT OF PATHOLOGY AND [address] [place], [place] [address] [facility] [address] [place] [address] [facility] Basic metabolic panel (12/04/2019 7:50 AM COMMUNICATIONS ADVISOR)Only the most recent of3 results within the time period is included. Pathologist Sig nature Sodium 139 135 - 148 mEq/L [facility] Potassium 4.2 3.5 - 5.0 mEq/L [facility] Chloride 108 98 - 112 mEq/L [facility] CO2 21 (L) 24 - 31 mEq/L [facility] Anion gap 10@ANIO 7 - 15 mEq/L [facility] BUN 14 8 - 23 mg/dL [facility] Creatinine 0.81 0.50 - 0.90 mg/dL [facility] Glucose 102 (H) 65 - 99 mg/dL [facility] Calcium 9.0 8.8 - 10.2 mg/dL [facility] Specimen Plasma specimen Performing Organization Address [facility] Phon e Number [facility] DEPARTMENT OF PATHOLOGY [address] [facility] [place] [address] AND GENOMIC MEDICINE [facility] [address] [facility] [place] [address] HOSPITAL XR Chest 1 Vw Portable (12/03/2019 7:20 AM COMMUNICATIONS ADVISOR)Only the most recent of3 results within the time period is included. Specimen Narrative Performed At EXAMINATION: XR CHEST 1 VW PORTABLE [facility] CLINICAL HISTORY: cough COMPARISON: To a previous examination from 12/01/2019 IMPRESSION: The heart is normal in appearance. The lungs are clear . Presumed postsurgical changes are noted involving the distal left clavicle. [facility]-[id number] Procedure Note Hm Interface, Radiology Results Incoming - 12/03/2019 7:29 AM COMMUNICATIONS ADVISOR EXAMINATION: XR CHEST 1 VW PORTABLE CLINICAL HISTORY: cough COMPARISON: To a previous examination f rom 12/01/2019 IMPRESSION: The heart is normal in appearance. The l ungs are clear. Presumed postsurgical changes are noted involving the distal left clavicle. [facility]-[id number] Performing Organization Address [facility] Phon e Number RADIANT [address] [place] [address] Amikacin level, peak (12/02/2019 10:15 AM COMMUNICATIONS ADVISOR) Pathologist Sig nature Amikacin, peak 30.6 (H) 20.0 - 25.0 ug/mL [facility] Specimen Plasma specimen Performing Organization Address City/[facility]/ZIP Code Phon e Number [facility] DEPARTMENT OF PATHOLOGY AND [address] [place], [place] [address] GENOMIC MEDICINE [facility] [address] [place] [address] Amikacin level, trough (12/02/2019 8:50 AM COMMUNICATIONS ADVISOR) Pathologist Sig nature Amikacin, trough 2.4 (L) 5.0 - 10.0 ug/mL [facility] Specimen Plasma specimen Performing Organization Address City/[facility] Code Phon e Number [facility] DEPARTMENT OF PATHOLOGY AND [address] [place], [place] [address] GENOMIC MEDICINE [facility] [address] [place] [address] US Renal (12/02/2019 5:59 AM COMMUNICATIONS ADVISOR) Specimen Narrative Performed At EXAMINATION: US RENAL [...] stones or hydronephrosis. 5.The bladder is unremarkable. [facility]-[id number] Procedure Note Interface, Radiology Results Incoming - 12/02/2019 7:19 AM COMMUNICATIONS ADVISOR EXAMINATION: US RENAL CLINICAL HISTORY: Renal failure [...] stones or hydronephrosis. 5.The bladder is unremarkable. [facility]-[id number] Performing Organization Address City/[facility] Code Phon e Number RAD[facility] [address] [place] [address] Uric acid level (12/02/2019 5:10 AM COMMUNICATIONS ADVISOR) Pathologist Sig [facility] Uric acid 6.0 (H) 2.4 - 5.7 mg/dL [facility] Specimen Plasma specimen Performing Organization Address City/[facility] Phon e Number [facility] DEPARTMENT OF PATHOLOGY [address] [place] [address] Creatine kinase, total (CPK) (12/02/2019 5:10 AM COMMUNICATIONS ADVISOR) Pathologist Sig [facility] Creatine kinase 27 26 - 192 U/L [facility] Specimen Plasma specimen Performing Organization Address City/[facility]/ZIP Code Phon e Number [facility] DEPARTMENT OF PATHOLOGY [address] [place] [address] Protein, urine, random (12/01/2019 7:30 PM COMMUNICATIONS ADVISOR) Pathologist Sig [facility] Total volume, urine 30 mL [facility] Urine protein 102 mg/dL [facility] Urine protein excretion 31 mg/vol [facility] Specimen Urine Performing Organization Address City/[facility] Phon e Number [facility] DEPARTMENT OF PATHOLOGY [address] [place] [address] Creatinine level, urine, random (12/01/2019 7:30 PM COMMUNICATIONS ADVISOR) Pathologist Sig [facility] Total volume, urine 30 mL [facility] Urine creatinine 24 mg/dL [facility] Urine creatinine excretion 7 mg/vol [facility] Specimen Urine Performing Organization Address City/[facility] Phon e Number [facility] DEPARTMENT OF PATHOLOGY [address] [place] [address] Lactic acid level, SEPSIS - Now and repeat 2x every 3 hours (12/01/2019 7:30 AM COMMUNICATIONS ADVISOR)Only the most recent of2 resultswithin the time period is included. Pathologist Sig [facility] Lactic acid 1.9 0.5 - 2.2 mmol/L [facility] Specimen Plasma specimen Performing Organization Address [facility] Phon e Number [facility] DEPARTMENT OF PATHOLOGY [address] [place] [address] [place] [address] [facility] Blood culture, aerobic & anaerobic (12/01/2019 5:05 AM COMMUNICATIONS ADVISOR)Only the most recent of2 resultswithin the time period is included. Blood culture No growth after 5 days of incubation. HO GUIDO BUDDHIST isolate Comment: HOSPITAL Specimen Information Specimen Source: Blood Specimen Site: Wrist, right Specimen Blood - Wrist, right Performing Organization Address [facility] Phon e Number [facility] DEPARTMENT OF PATHOLOGY AND [address] [place], [place] [address] [address] Partial thromboplastin time, activated (12/01/2019 4:35 AM COMMUNICATIONS ADVISOR) Pathologist [facility] PTT 25.3 23.0 - 36.0 [facility] Comment: [facility] PTT therapeutic range for unfractionated heparin is HOSPITAL 61.0-112.0 seconds which corresponds to Anti-Xa 0.3-0.7 U/ml. Specimen Blood Performing Organization Address [facility] Phon e Number [facility] DEPARTMENT OF PATHOLOGY [address] [place] [address] AND [place] [address] [facility] Prothrombin time with INR (12/01/2019 4:35 AM COMMUNICATIONS ADVISOR) Prothrombin time 13.7 11.5 - 14.5 [facility] INR 1.1 [place] Comment: [facility] International Normalized Ratio (INR) is a therapeu [facility] monitoring tool for patients who are stable on oral anticoagulant therapy. An INR of 2.0-3.0 is suggested for deep vein thrombosis/pulmonary embolism. Specimen Blood Performing Organization Address City/[facility] Phon e Number [facility] DEPARTMENT OF PATHOLOGY [address] [place] [address] Gastrointestinal panel (11/21/2019 8:46 PM COMMUNICATIONS ADVISOR) [facility] Gastrointestinal panel Negative for all pathogens tested: [place] Negative for Salmonella [facility] Negative for Campylobacter [facility] Negative for Diarrheagenic E coli/Shigella Negative [...] Address City/State/ZIP Code Phon e Number [facility] DEPARTMENT OF PATHOLOGY AND [address] [place], [place] [address] [address] [address] Troponin (11/21/2019 5:20 PM COMMUNICATIONS ADVISOR)Only the most recent of2 resultswithin the time period is included. [facility] Troponin <0.006 0.000 - 0.040 [facility] Comment: ng/mL [facility] In patients suspected of having a [...] ng/mL Specimen Plasma specimen Performing Organization Address [facility]/ZIP Code Phon e Number [facility] DEPARTMENT OF PATHOLOGY [address] [facility] [place] [address] AND [facility] [address] [facility] [place] [address] [facility] ECG 12 lead (11/21/2019 11:26 AM COMMUNICATIONS ADVISOR) Pathologist Sig nature Ventricular rate 74 [facility] Atrial rate 74 [facility] NV interval 178 [facility] QRSD interval 70 [...] is no t available. Performing Organization Address City/[facility] Code Phon e Number [facility] MUSE [address] [place] [address] Gram stain (11/20/2019 3:48 PM COMMUNICATIONS ADVISOR) Gram stain result Occasional WBC's [facility] Moderate Gram negative rods [facility] Comment: Specimen Information Specimen Source: Urine Specimen Site: Catheterized Specimen Urine - Catheterized Performing Organization Address City/[facility]/ZIP Code Phon e Number 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 Insurance Payer Benefit Plan / Group Subscriber ID Effective Phone Addre ss Type Dates MEDICARE MEDICARE PART A AND B [id number] 2012-Pres H KAILEE FIGUEROA Medicare ent [facility] [id number] 2020-Prese PPO COMMERCIAL nt HMO/POS/PPO Advance Directives For more information, please contact: [phone] Type Date Recorded Patient Manager Enterprise Explanati on Advance Directives, 07/13/2019 2:11 PM Living Will and Medical Power of Aircraft Systems [employer]r Advance Directives, 06/26/2018 5:16 PM Living Will and Medical Power of Aircraft Systems [employer]r Advance Directives, 07/23/2018 4:55 PM Living Will and Medical Power of Aircraft Systems Rep[employer]r Advance Directives, 11/22/2018 1:29 PM MEDICAL P OA-11/16/18 Living Will and Medical Power of Aircraft Systems [employer]r Advance Directives, 02/17/2019 11:24 AM Living Will and Medical Power of Aircraft Systems [employer]r Advance Directives, 06/03/2019 12:53 PM Living Will and Medical Power of Aircraft Systems Rep[employer]r Advance Directives, 06/11/2019 4:22 PM MEDICAL Living Will and Medical Power of Aircraft Systems Rep[employer]r Advance Directives, 06/11/2019 4:23 PM ADV Living Will and Medical Power of Aircraft Systems [employer]r Advance Directives, 06/27/2019 1:33 PM ADVANCE D IRECTIVE Living Will and 06/21/2018 Medical Power of Aircraft Systems Repairer Advance Directives, 06/30/2019 1:23 PM Living Will and Medical Power of Aircraft Systems [employer]r Advance Directives, 08/19/2019 1:18 PM Living Will and Medical Power of Aircraft Systems Rep[employer]r
--- OUTSIDE RECORDS SUMMARY | 2020-11-20 19:08 | XMS REPORT | Clinical Summary ---
:1945 Author Organization [facility] Address [address] [place] [address] Care Team Providers Name Role Phone Evans Pineda MD Primary Care Provider Allergies Active Allergy Reactions Severity Noted Date Comments Cefuroxime 11/02/2019 Medications Medication Sig Dispensed Refills Start Date End Date Status aspirin 81 MG EC Take 81 mg by 0 Active tablet mouth daily. clonazePAM (KLONOPIN) Take 1 mg by 0 Active 1 MG tablet mouth 2 (two) times daily as needed for Anxiety. meclizine (ANTIVERT) Take 25 mg by 0 Active 25 MG tablet mouth 3 (three) times daily as needed. levothyroxine Take 88 mcg by 0 A ctive (SYNTHROID, mouth Every LEVOTHROID) 88 MCG morning on an tablet empty stomach. losartan 12.5 MG Take 50 mg by 0 Active halftab half tablet mouth daily. melatonin 3 mg Tab Take 10 mg by 0 Active tablet mouth 2 (two) times daily as needed. methen-m.blue-s.phos- Take 1 capsule 0 Active phsal-hyo (URIBEL) by mouth daily. 118-10-40.8-36 mg Cap simvastatin (ZOCOR) Take 20 mg by 0 Active 20 MG tablet mouth nightly. pantoprazole Take 20 mg by 0 Act luis carlos (PROTONIX) 20 MG mouth daily. tablet omeprazole (PRILOSEC) Take 40 mg by 0 Active 40 MG capsule mouth daily. conjugated estrogens Place 0.5 g 0 Active (PREMARIN) 0.625 vaginally 3 mg/gram vaginal cream (three) times a week at bedtime MON/WED/FRI. mirabegron Take by mouth 0 Activ e (MYRBETRIQ) 50 mg daily. Tb24 ER tablet NIFEdipine Take 30 mg by 0 Activ e (PROCARDIA-XL) 30 MG mouth daily. (OSM) 24 hr tablet oxyCODONE-acetaminoph Take 1 tablet by 0 Active en (PERCOCET) 7.5-325 mouth every 8 mg per tablet (eight) hours as needed for Pain. nystatin (MYCOSTATIN) Apply topically 0 Active 100,000 unit/gram 2 (two) times cream daily. lidocaine (LIDODERM) Place 1 patch 30 patch 0 11/06/201903/2020 5 % patch onto the skin daily for 30 days Remove & Discard patch within 12 hours or as directed by MD. traMADol (ULTRAM) 50 Take 1 tablet 30 tablet 0 11/06/201903/2020 mg tablet (50 mg total) by mouth every 6 (six) hours as [...] Care Team Description 04/04/2020 Lab Requisition Lab after 11/20/2019 Social History Tobacco Use Types Packs/Day Years Used Date Unknown If Ever Smoked Sex Assigned at Date Recorded Not on file Last Filed Vital Signs Not on file Plan of Treatment Health Maintenance Due Date Last Done Comments BREAST CANCER SCREENING 1945 COLON CANCER SCREENING COLONOSCOPY 1945 PNEUMOCOCCAL 65+ YRS (1 of 1 - [id number]) 2012 MEDICARE ANNUAL WELLNESS (YEAR 2 or FIRST YEAR if no 08/01/2013 IPPE) INFLUENZA VACCINE (#1) 2020 Procedures Procedure Name Priority Date/Time Associated Diagnosis Comme nts SARS-COV2/RT-PCR Routine 04/03/2020 4:28 PM Resu lts for this ([facility]) CDT procedure are in the results section. after 11/20/2019 Results SARS-CoV2/RT-PCR ([facility]) (04/03/2020 4:28 PM CDT) SARS-COV2/RT-PCR Not Detected Not Detected, [facility] Negative [facility] SARS-COV-2 [facility] PERFORMING LAB [facility] Specimen Other - Nasopharyngeal wall structure (b joss structure) Narrative Performed At Negative results do not preclude SARS-CoV-2 [facility] infection and should not be used as [...] the Act. Fact Sheet for Healthcare Providers: https://www.[employer]/Documents/Xpert%20Xpre ss%20SARS%20CoV-2/Fact%20Sheets/3023802%20SAR S-COV-2%20HEALTHCARE%20PROVIDERS%20FACT%20SHEE T.pdf Fact Sheet for Healthcare Patients: https://www.[employer]com/Documents/Xpert%20Xpre ss%20SARS%20CoV-2/Fact%20Sheets/3023801%20SAR S-COV-2%20PATIENT%20FACT%20SHEET.pdf Performing Laboratory: [address] [place] [address] Performing Organization Address City/State/Zipcode Phone Number [address] [address] CENTER after 11/20/2019 Advance Directives For more information, please contact: [phone] Code Status Date Activated Date Inactivated Comments Full Code 11/02/2019 11:07 PM 11/07/2019 5:41 PM This code status was determined by: Patient
[2020-11-20 19:38] LABS: Absolute Lymphocytes (CBC) 0.6 K/uL (0.7-4.9); Basophils % 1.1 % (0-1.3); Hematocrit 27.8 % (36.0-45.0); Lymphocytes % 12.8 % (15.3-44.8); RBC Red Blood Cell Count 2.86 M/uL (3.86-4.86)
[2020-11-20] MEDS ORDERED: FENTANYL CITR 100 MCG/2 ML ONE ×2 (19:44→23:18)
[2020-11-20 19:52] LABS: Potassium 3.7 mmol/L (3.5-5.1)
--- NOTE | 2020-11-20 20:00 | RAD REPORT ---
EXAM DESCRIPTION: RAD - Knee Left 3 View - 11/20/2020 7:46 pm CLINICAL HISTORY: PAIN COMPARISON: Knee Left 2 View dated 04/03/2020; Knee Left 3 View dated 03/22/2020 FINDINGS: Advanced tricompartmental osteoarthritis is seen. [id number] is noted in the medial comp artment. Small suprapatellar joint effusion. No fracture or dislocation evident. IMPRESSION: Severe osteoarthritis.
--- NOTE | 2020-11-20 20:01 | RAD REPORT ---
EXAM DESCRIPTION: RAD - Chest Single View - 11/20/2020 7:46 pm CLINICAL HISTORY: fall Chest pain. COMPARISON: Chest Single View dated 08/15/2020; Chest Single View dated 05/27/2020; Chest Single View dated 04/29/2020; Chest Single View dated 04/03/2020 FINDINGS: Portable technique limits examination quality. The lungs are grossly clear. The heart is normal in size. Diffuse osteopenia is seen.Old traumatic ch anges noted in the left shoulder.
--- NOTE | 2020-11-20 20:04 | RAD REPORT ---
EXAM DESCRIPTION: RAD - Pelvis - 11/20/2020 7:47 pm CLINICAL HISTORY: fall Fall, pelvic pain COMPARISON: Pelvis dated 05/27/2020 FINDINGS: Marked osteoarthritis is seen affecting both hips. Hardware is present in the proximal rig ht femur. No acute fracture or dislocation. Stimulator device projects over the pelvis.
--- NOTE | 2020-11-20 20:06 | RAD REPORT ---
EXAM DESCRIPTION: RAD - Shoulder Left 2 View - 11/20/2020 7:47 pm CLINICAL HISTORY: PAIN COMPARISON: Shoulder Left 2 View dated 03/01/2020 FINDINGS: Full-term attic changes are seen affecting the left shoulder. In addition, there may be mo re recent fracture of the distal left clavicle present. Recommend correlation with point tenderness.
[2020-11-20 22:30] LABS: Urine Blood TRACE (NEG); Urine Glucose TRACE (NEG); Urine Protein 1+ (NEG); Urine Specific Gravity 1.015 (1.005-1.030)
[2020-11-20 22:30] LABS: Urine Bacteria 20-50 /HPF (<20); Urine Mucus 1+ /HPF (NONE SEEN)
[2020-11-20] MEDS ORDERED: CEFTRIAXONE/SWI 1gm 1 GM/10 ML SYR ONE (23:55)
--- NOTE | 2020-11-21 00:14 | ER ---
Nurse's Notes [facility] Name: Tina Vieira Age: 75 yrs Sex: Female : 1945 Arrival Date: 11/20/2020 Time: 19:05 Bed 19 Private MD: Diagnosis: Nondisplaced fracture of greater trochanter of left femur;Fall on same level from slipping, tripping and stumbling;Urinary tract infection, site not specified-chronic Presentation: 11/20 19:06 Chief complaint: EMS states: INCONTINENT TO STOOL AND URINE AT HOME, ALSO CALLED 911 bp WHEN SHE COULDN'T PHONE HER , H/O DOING SAME. Coronavirus screen: At this time, the client does not indicate any symptoms associated with coronavirus-19. Ebola Screen: No symptoms or risks identified at this time. Initial Sepsis Screen: Does the patient meet any 2 criteria? No. Patient's initial sepsis screen is negative. Does the patient have a suspected source of infection? No. Patient's initial sepsis screen is negative. Risk Assessment: Do you want to hurt yourself or someone else? Patient reports no desire to harm self or others. Onset of symptoms is unknown. 19:06 Method Of Arrival: EMS: [facility] bp 19:06 Acuity: TYLOR 3 bp Triage Assessment: 19:11 General: Appears distressed, uncomfortable, slender, Behavior is agitated, anxious, bp crying. Pain: Complains of pain in left arm and left leg. EENT: No deficits noted. Neuro: Level of Consciousness is awake, obeys commands, confused, Oriented to person, place, time, situation, Appropriate for age. Cardiovascular: No deficits noted. Respiratory: No deficits noted. GI: No signs and/or symptoms were reported involving the gastrointestinal system. : Reports incontinence. Derm: No deficits noted. Musculoskeletal: No deficits noted. Historical: - Allergies: 19:11 Compazine; bp 19:11 Meclizine; bp - Home Meds: 19:11 aspirin 81 mg Oral TbEC 1 tab once daily [Active]; Azo-Standard Oral as needed bp [Active]; clonazepam 1 mg Oral tab 1 tab nightly [Active]; Flomax 0.4 mg Oral cp24 1 cap once daily [Active]; losartan 50 mg Oral tab 1 tab 2 times per day [Active]; meclizine 25 mg Oral tab 1 tab as needed [Active]; omeprazole 40 mg Oral cpDR 1 cap once daily [Active]; oxycodone-acetaminophen 7.5-325 mg Oral tab 1 tab every 6 hours [Active]; pantoprazole 20 mg Oral TbEC 1 tab once daily [Active]; potassium chloride 20 mEq Oral TbTQ 1 tab 2 times per day [Active]; simvastatin 20 mg Oral tab 1 tab once daily [Active]; Synthroid 88 mcg Oral tab 1 tab once daily [Active]; Uribel 118-10-40.8-36 mg Oral tab daily [Active]; - PMHx: 19:11 "shattered shoulder"; Anxiety; chronic uti; Hyperlipidemia; Hypertension; bp Hypothyroidism; spinal fractures; - Immunization history:: Adult Immunizations unknown. - Social history:: Smoking status: unknown. Screenin:10 Abuse screen: Denies threats or abuse. Denies injuries from another. Nutritional bp screening: No deficits noted. Tuberculosis screening: No symptoms or risk factors identified. Fall Risk None identified. Assessment: 19:10 General: SEE TRIAGE NOTE. bp 19:30 Reassessment: PT TO CT. PT REMAINS ANIMATED, STATING SHE NEEDS THE POLICE FOR A MISSING bp PERSON ON HER . 20:30 Reassessment: No changes from previously documented assessment. Patient and/or family bp updated on plan of care and expected duration. Pain level reassessed. Patient is alert, oriented x 3, equal unlabored respirations, skin warm/dry/pink. AT B/S. PT HAS NO ACUTE MEDICAL COMPLAINTS AT THIS TIME. 22:03 Reassessment: [id number] buck vieira (). rr5 22:24 Reassessment: No changes from previously documented assessment. Patient and/or family bp updated on plan of care and expected duration. Pain level reassessed. Patient is alert, oriented x 3, equal unlabored respirations, skin warm/dry/pink. CT NOTIFIED OF PIV PLACEMENT. 11/21 00:44 Reassessment: Patient appears in no apparent distress at this time. Patient is alert, rr5 oriented x 3, equal unlabored respirations, skin warm/dry/pink. 02:30 Reassessment: Patient appears in no apparent distress at this time. Patient and/or wh family updated on plan of care and expected duration. Pain level reassessed. Patient is alert, oriented x 3, equal unlabored respirations, skin warm/dry/pink. Vital Signs: 11/20 19:06 BP 113 / 68; Pulse 75; Resp 16; Temp 98; Pulse Ox 94% on R/A; bp 19:30 BP 111 / 68; Pulse 77; Resp 16; Pulse Ox 97% ; bp 20:30 Pulse 66; Resp 17; Pulse Ox 98% ; bp 22:24 BP 105 / 55; Pulse 58; Resp 16; Pulse Ox 97% ; bp 11/21 00:20 BP 110 / 70; Pulse 60; Resp 16; Pulse Ox 98% ; rr5 01:30 BP 113 / 65; Pulse 58; Resp 19; Pulse Ox 99% ; rr5 02:30 BP 98 / 49; Pulse 71; Resp 18; Pulse Ox 98% on R/A; ED Course: 11/20 19:05 Patient arrived in ED. bp 19:07 Triage completed. bp 19:08 Mateo Guzman PA is PHCP. cp 19:08 Matheus Altman MD is Attending Physician. cp 19:09 Attending Physician role handed off by Matheus Altman MD cp 19:09 Mateo Fox MD is Attending Physician. cp 19:10 Patient has correct armband on for positive identification. Bed in low position. Call bp light in reach. Side rails up X2. 19:11 Arm band placed on. bp 19:25 Inserted saline lock: 22 gauge in right hand, using aseptic technique. Blood collected. bp 19:31 Edward Fuentes, ALCIDES is Primary Nurse. bp 21:40 Assisted with bedpan. Cleaned of incontinence. Linen changed. ll1 21:46 Warm blanket given. ll1 22:21 Inserted saline lock: 20 gauge in right wrist, using aseptic technique. rr5 11/21 00:12 Vineet Charlton DO is Hospitalizing Provider. cp 01:07 COVID swab sent to lab. rr5 02:49 Primary Nurse role handed off by Edward Fuentes, ALCIDES mw2 02:52 Caron Howell, ALCIDES is Primary Nurse. 02:55 No provider procedures requiring assistance completed. Patient admitted, IV remains in place. Administered Medications: 11/20 19:25 Drug: fentaNYL (PF) 25 mcg Route: IVP; Site: right hand; bp 20:56 Follow up: Response: Pain is decreased bp 11/21 00:04 Drug: Rocephin 1 grams Route: IV; Rate: calculated rate; Site: right wrist; rr5 01:00 Follow up: Response: No adverse reaction; IV Status: Completed infusion; IV Intake: [id number] 00:30 Drug: Meropenem 500 mg Route: IV; Rate: calculated rate; Site: right wrist; rr5 01:30 Follow up: Response: No adverse reaction; IV Status: Completed infusion; IV Intake: rr5 100ml 01:31 Drug: KLONopin 1 mg Route: PO; rr5 02:20 Follow up: Response: No adverse reaction rr5 01:35 Drug: traZODONE 50 mg Route: PO; rr5 02:21 Follow up: Response: No adverse reaction rr5 Intake: 01:00 IV: 10ml; Total: 10ml. rr5 01:30 IV: 100ml; Total: 110ml. rr5 Outcome: 00:14 Decision to Hospitalize by Provider. cp 02:55 Admitted to Med/surg accompanied by tech, via stretcher, room 202, with chart, Report wh called to Myriam Snyder RN 02:55 Condition: stable 02:55 Instructed on the need for admit. 02:58 Patient left the ED. Signatures: Mateo Guzman PA PA cp Habalo, Winsy RN RN Edward Fuentes RN RN Shayla Valderrama 2 Qasim Galvin RN RN rr5 Vaishnavi Ochoa RN RN ll1
--- NOTE | 2020-11-21 00:14 | EDPHYS ---
Physician Documentation [facility] Name: Tina Padron Age: 75 yrs Sex: Female : 1945 Arrival Date: 11/20/2020 Time: 19:05 Bed 19 Private MD: ED Physician Mateo Fox HPI: 11/20 19:20 This 75 yrs old Female presents to ER via EMS with complaints of SOCIAL cp ISSUE, Urinary Incontinence. 19:20 The patient presents with pain, that is acute. The complaints affect the left knee. cp 19:20 Patient reports calling EMS after being unable to contact today. Reports fall cp this past Tuesday with inability to get up from bed. Patient reports falling onto left side. No LOC. History of chronic UTIs. Reports urinating and defecating on self due to inability to get up from bed over past week. Historical: - Allergies: 19:11 Compazine; bp 19:11 Meclizine; bp - Home Meds: 19:11 aspirin 81 mg Oral TbEC 1 tab once daily [Active]; Azo-Standard Oral as needed bp [Active]; clonazepam 1 mg Oral tab 1 tab nightly [Active]; Flomax 0.4 mg Oral cp24 1 cap once daily [Active]; losartan 50 mg Oral tab 1 tab 2 times per day [Active]; meclizine 25 mg Oral tab 1 tab as needed [Active]; omeprazole 40 mg Oral cpDR 1 cap once daily [Active]; oxycodone-acetaminophen 7.5-325 mg Oral tab 1 tab every 6 hours [Active]; pantoprazole 20 mg Oral TbEC 1 tab once daily [Active]; potassium chloride 20 mEq Oral TbTQ 1 tab 2 times per day [Active]; simvastatin 20 mg Oral tab 1 tab once daily [Active]; Synthroid 88 mcg Oral tab 1 tab once daily [Active]; Uribel 118-10-40.8-36 mg Oral tab daily [Active]; - PMHx: 19:11 "shattered shoulder"; Anxiety; chronic uti; Hyperlipidemia; Hypertension; bp Hypothyroidism; spinal fractures; - Immunization history:: Adult Immunizations unknown. - Social history:: Smoking status: unknown. ROS: 19:20 Constitutional: Negative for body aches, chills, fever, poor PO intake. cp 19:20 Eyes: Negative for injury, pain, redness, and discharge. cp 19:20 Neck: Negative for pain with movement, pain at rest, stiffness. 19:20 Cardiovascular: Negative for chest pain, edema, palpitations. 19:20 Respiratory: Negative for cough, shortness of breath, wheezing. 19:20 Abdomen/GI: Negative for abdominal pain, nausea, vomiting, and diarrhea. 19:20 MS/extremity: Positive for pain, of the left shoulder and left knee. 19:20 Neuro: Positive for weakness, of the right leg and left leg, Negative for altered mental status, headache, syncope. 19:20 All other systems are negative. Exam: 19:25 Constitutional: The patient appears in no acute distress, alert, awake, cp non-diaphoretic, non-toxic, well developed, well nourished. 19:25 Head/Face: Normocephalic, atraumatic. cp 19:25 Eyes: Periorbital structures: appear normal, Conjunctiva: normal, no exudate, no injection, Sclera: no appreciated abnormality, Lids and lashes: appear normal, bilaterally. 19:25 ENT: External ear(s): are unremarkable, Nose: is normal, Mouth: Lips: moist, Oral mucosa: moist, Posterior pharynx: Airway: no evidence of obstruction, patent. 19:25 Neck: C-spine: vertebral tenderness, is not appreciated, crepitus, is not appreciated. 19:25 Chest/axilla: Inspection: deformity, of the left clavicle Palpation: tenderness, of the left clavicle. 19:25 Cardiovascular: Rate: normal, Rhythm: regular, Edema: is not appreciated, JVD: is not appreciated. 19:25 Respiratory: the patient does not display signs of respiratory distress, Respirations: labored breathing, is not present, intercostal retractions, are absent, Breath sounds: are clear throughout, no decreased breath sounds, no stridor, no wheezing. 19:25 Abdomen/GI: Inspection: abdomen appears normal, Palpation: abdomen is soft and non-tender, in all quadrants, rebound tenderness, is not appreciated, voluntary guarding, is not appreciated, involuntary guarding, is not appreciated. 19:25 Musculoskeletal/extremity: Extremities: grossly normal except: noted in the left knee: pain. 19:25 Neuro: Orientation: to person, place \\T\\ time. Mentation: is normal. 11/21 00:25 ECG was reviewed by the Attending Physician. cp Vital Signs: 11/20 19:06 BP 113 / 68; Pulse 75; Resp 16; Temp 98; Pulse Ox 94% on R/A; bp 19:30 BP 111 / 68; Pulse 77; Resp 16; Pulse Ox 97% ; bp 20:30 Pulse 66; Resp 17; Pulse Ox 98% ; bp 22:24 BP 105 / 55; Pulse 58; Resp 16; Pulse Ox 97% ; bp 11/21 00:20 BP 110 / 70; Pulse 60; Resp 16; Pulse Ox 98% ; rr5 01:30 BP 113 / 65; Pulse 58; Resp 19; Pulse Ox 99% ; rr5 02:30 BP 98 / 49; Pulse 71; Resp 18; Pulse Ox 98% on R/A; wh MDM: 11/20 19:17 Patient medically screened. alec 21:00 Differential diagnosis: dislocation, closed fracture, sepsis. cp 11/21 00:10 Data reviewed: vital signs, nurses notes, lab test result(s), EKG, radiologic studies, cp CT scan, plain films, I have discussed the patient's presentation/case with the attending Emergency Department Physician; and as a result, I will admit patient. 00:10 Test interpretation: by ED physician or midlevel provider: ECG. Counseling: I had a cp detailed discussion with the patient and/or guardian regarding: the historical points, exam findings, and any diagnostic results supporting the discharge/admit diagnosis, lab results, radiology results, the need for further work-up and treatment in the hospital. Physician consultation: Benedict KHAN was called at 00:10, was contacted at 00:10, regarding admission, to the medical/surgical unit. patient's condition. 11/20 19:11 Order name: CBC with Diff cp 11/20 19:11 Order name: BMP cp 11/20 19:11 Order name: Procalcitonin cp 11/20 19:53 Order name: CBC with Automated Diff; Complete Time: 20:41 EDMS 11/20 20:41 Interpretation: Normal except: RBC 2.86; HGB 9.1; HCT 27.8; MCV 97.2; PLT 115; LYM% cp 12.8; EOSINOPHIL % 5.0; LYMA 0.6. 11/20 19:53 Order name: Basic Metabolic Panel; Complete Time: 20:41 EDMS 11/20 20:42 Interpretation: Normal except: CL 108; GFR 54. 11/20 20:28 Order name: Procalcitonin; Complete Time: 20:41 EDMS 11/20 21:24 Order name: Troponin I 11/20 21:24 Order name: Urine Microscopic Only 11/20 22:01 Order name: Urine Dipstick--Ancillary (enter results) 2 11/20 22:18 Order name: Troponin I; Complete Time: 22:58 EDMS 11/20 22:30 Order name: Urine Microscopic Only; Complete Time: 22:58 EDMS 11/20 22:58 Interpretation: Normal except: UWBC 20-50; URBC 5-10; UBACT 20-50; SQEPI 10-20. 11/20 22:30 Order name: Urine Dipstick-Ancillary; Complete Time: 22:58 EDMS 11/20 22:58 Interpretation: Normal except: UBLD TRACE; UPROT 1+; U NIT POSITIVE; UESTR 3+. 11/21 00:12 Order name: COVID-19 11/21 01:08 Order name: CORONAVIRUS EDKS 11/20 19:11 Order name: XRAY Chest (1 view) 11/20 19:11 Order name: XRAY Shoulder LEFT 2 view 11/20 19:11 Order name: XRAY Knee LEFT 3 view 11/20 19:11 Order name: XRAY Pelvis 11/20 20:01 Order name: RAD; Complete Time: 20:41 EDMS 11/20 20:42 Interpretation: Report reviewed. 11/20 20:02 Order name: RAD; Complete Time: 20:41 EDMS 11/20 20:42 Interpretation: Report reviewed. 11/20 20:06 Order name: RAD; Complete Time: 20:41 EDMS 11/20 20:42 Interpretation: Report reviewed. 11/20 20:08 Order name: RAD; Complete Time: 20:41 EDMS 11/20 21:24 Order name: CT Traumagram (Head C Spine CAP W Con) 11/20 21:24 Order name: EKG; Complete Time: 21:25 11/21 02:26 Order name: SARS-COV-2 RT PCR EDKS 11/20 19:11 Order name: IV; Complete Time: 19:32 cp 11/20 21:24 Order name: EKG - Nurse/Tech; Complete Time: 00:44 cp 11/20 21:25 Order name: Urine Dipstick-Ancillary (obtain specimen); Complete Time: 22:21 cp EC:25 Rate is 57 beats/min. Rhythm is regular. IA interval is normal. QRS interval is normal. cp QT interval is normal. Interpreted by me. Reviewed by me. Administered Medications: 11/20 19:25 Drug: fentaNYL (PF) 25 mcg Route: IVP; Site: right hand; bp 20:56 Follow up: Response: Pain is decreased bp 11/21 00:04 Drug: Rocephin 1 grams Route: IV; Rate: calculated rate; Site: right wrist; rr5 01:00 Follow up: Response: No adverse reaction; IV Status: Completed infusion; IV Intake: [id number] 00:30 Drug: Meropenem 500 mg Route: IV; Rate: calculated rate; Site: right wrist; rr5 01:30 Follow up: Response: No adverse reaction; IV Status: Completed infusion; IV Intake: rr5 100ml 01:31 Drug: KLONopin 1 mg Route: PO; rr5 02:20 Follow up: Response: No adverse reaction rr5 01:35 Drug: traZODONE 50 mg Route: PO; rr5 02:21 Follow up: Response: No adverse reaction rr5 Disposition: 07:23 Co-signature as Attending Physician, Mateo Fox MD I agree with the assessment and alec plan of care. Disposition: 11/21/20 00:14 Hospitalization ordered by Vineet Charlton for Inpatient Admission. Preliminary diagnosis are Nondisplaced fracture of greater trochanter of left femur, Fall on same level from slipping, tripping and stumbling, Urinary tract infection, site not specified - chronic. - Bed requested for Telemetry/MedSurg (Inpatient). - Status is Inpatient Admission. - Condition is Stable. - Problem is new. - Symptoms have improved. Signatures: Dispatcher [employer] Mateo Solano MD MD cha Page, Corey, PA PA cp Garcia, Cindy, RN RN cg Habalo, Winsy, RN RN wh Peltier, Brian, RN RN bp Roque, Raymond, RN RN rr5 Corrections: (The following items were deleted from the chart) 11/20 22:20 21:24 Ramires ordered. cp bp 11/21 02:25 00:14 Hospitalization Ordered by Vineet Charlton DO for Inpatient Admission. Preliminary cg diagnosis is Nondisplaced fracture of greater trochanter of left femur; Fall on same level from slipping, tripping and stumbling; Urinary tract infection, site not specified - chronic. Bed requested for Telemetry/MedSurg (Inpatient). Status is Inpatient Admission. Condition is Stable. Problem is new. Symptoms have improved. cp 02:58 02:25 11/21/2020 00:14 Hospitalization Ordered by Vineet Charlton DO for Inpatient Admission. Preliminary diagnosis is Nondisplaced fracture of greater trochanter of left femur; Fall on same level from slipping, tripping and stumbling; Urinary tract infection, site not specified - chronic. Bed requested for Telemetry/MedSurg (Inpatient). Status is Inpatient Admission. Condition is Stable. Problem is new. Symptoms have improved. cg
[2020-11-21] MEDS ORDERED: Meropenem 500 MG/100 ML BAG ONE ×2 (00:38→00:41)
[2020-11-21] MEDS ORDERED: clonazePAM 0.5 MG TAB ONE (01:20)
[2020-11-21] MEDS ORDERED: TRAZODONE 50 MG TABLET ONE (01:47)
--- NOTE | 2020-11-21 02:37 | P.HP ---
Certification for Inpatient Patient admitted to: Inpatient With expected LOS: >2 Midnights Patient will require the following post-hospital care: Rehabilitation Practitioner: I am a practitioner with admitting privileges, knowledge of patient current condition, hospital course, and medical plan of care. Services: Services provided to patient in accordance with Admission requirements found in Title 42 Section 412.3 of the Code of Federal Regulations <Benedict Matta - Last Filed: 11/21/20 02:32> Patient History Date of Service: 11/21/20 Primary Care Provider: Unknown Reason for admission: L nondisplaced comminuted greater trochanteric femur fracture, UTI History of Present Illness: 72-year-old female with history of anemia, chronic urinary tract infections presents emergency department for left hip pain. Patient reports that she had a fall on 11/16/2020 and has been having left hip pain since that time. Patient reports that even prior to the fall she has been having decline and ability to do her 82 else including walking, patient reports that she has a walker, cane, wheelchair at her house but she is having difficulty getting around still. Patient reports that now since her fall she is unable to bear weight or walk on the affected extremity. Patient also reports that she is st ill having dysuria and frequency. Patient was evaluated in the emergency department found to have urinary tract infection x-rays of the knee, pelvis, shoulder were obtained without any acute findings but patient had follow up CT scan which did demonstrate a nondisplaced comminuted left greater trochanteric femur fracture. Upon reviewing urine culture from previous admission on 05/27/2020 patient had a E. coli ESBL and was reported to have been taking Bactrim and vancomycin at home but it was not sensitive to this. When I saw the patient in the ER she is awake, alert, oriented x3. Patient does not appear septic at this time, complaining of pain to the left hip. - Past Medical/Surgical History Diabetic: No -: Hypertension -: Hypothyroidism -: B-cell lymphoma -: DDD/DJD of spine -: Chronic recurrent UTI requiring long-term antibiot -: shingles ( ) -: Vertigo -: Anxiety -: spinal fractures -: Hysterectomy -: Cholecystectomy, Gastric Bypass -: Gastric torsion repair -: Right Hip surgery -: Knee surgery -: Port-A-Cath placement and removal -: Right Shoulder Sx, LISA lens replacement -: TONSILLECTOMY Psychosocial/ Personal History: The patient is originally from [place]. She moved to the area in July. She is . She has 3 children. - Family History Mother -: Heart disease, Hypertension, Diabetes, Kidney disease Father -: Heart disease, Diabetes, Other (see notes) Notes: Alzheimers - Social History Smoking Status: Former smoker Alcohol use: No CD- Drugs: No Caffeine use: Yes Place of Residence: Home <Benedict Matta - Last Filed: 11/21/20 02:32> Date of Service: 11/21/20 <Vineet Charlton - Last Filed: 11/21/20 18:15> Allergies prochlorperazine [From Compazine] Allergy (Intermediate, Verified 11/21/20 04:26) PYSCHOSIS Prochlorperazine Maleate Allergy (Uncoded 04/22/18 15:25) Unknown Home Medications: ALPRAZolam [Alprazolam] 2 mg PO BEDTIME 11/21/20 Levothyroxine [Synthroid*] 0.088 mg PO DAILY 11/21/20 Metoprolol Tartrate [Lopressor*] 50 mg PO DAILY 11/21/20 Oxycodone HCl/Acetaminophen [Oxycodon-Acetaminophen 7.5-325] 1 mg PO Q6HR 11/21/20 hydroCHLOROthiazide [Hydrochlorothiazide*] 12.5 mg PO DAILY 11/21/20 Review of Systems Genitourinary: Dysuria, Frequency, Incontinence Musculoskeletal: Shoulder Pain, Leg Pain <Benedict Matta - Last Filed: 11/21/20 02:32> Physical Examination - Physical Exam General: Alert, In no apparent distress, Oriented x3, Other (Anxious) HEENT: Atraumatic, Normocephalic, PERRLA Neck: Supple Respiratory: Clear to auscultation bilaterally, Normal air movement Cardiovascular: No edema, Normal S1 S2 Capillary refill: <2 Seconds Gastrointestinal: Normal bowel sounds, No tenderness Musculoskeletal: No contractures, No erythema Integumentary: No significant lesion, No tenderness/swelling, No erythema Neurological: Normal speech, Normal strength at 5/5 x4 extr, Normal tone, Sensation intact - Studies Laboratory Data (last 24 hrs) 11/20/20 19:25: Troponin I < 0.02 11/20/20 19:25: Sodium 141, Potassium 3.7, BUN 17, Creatinine 1.00, Glucose 96 11/20/20 19:25: WBC 4.6, Hgb 9.1 L, Hct 27.8 L, Plt Count 115 L <Benedict Matta - Last Filed: 11/21/20 02:32> - Studies Laboratory Data (last 24 hrs) 11/20/20 19:25: Troponin I < 0.02 11/20/20 19:25: Sodium 141, Potassium 3.7, BUN 17, Creatinine 1.00, Glucose 96 11/20/20 19:25: WBC 4.6, Hgb 9.1 L, Hct 27.8 L, Plt Count 115 L <Vineet Charlton - Last Filed: 11/21/20 18:15> Assessment and Plan - Plan Assessment Nondisplaced comminuted left greater trochanteric femur fracture UTI previously diagnosed with ESBL Hypothyroidism Hypertension Anemia of chronic disease Anxiety Chronic pain Plan Nondisplaced comminuted left greater trochanteric femur fracture: Nonsurgical fracture, physical therapy consult in place. P.r.n. pain medications, DVT prophylaxis Lovenox 40 mg subcutaneous once daily. Patient will likely need rehab whether that be inpatient or outpatient. UTI previously diagnosed with ESBL: Previous culture positive for E. coli- ESBL patient had taken vancomycin and Bactrim but it was not sensitive to this, still having urinary symptoms. Will obtain blood cultures, urine culture pending. Hypothyroidism: Obtain and continue home medications Hypertension: Obtain and continue home medication Anemia of chronic disease: Hemoglobin stable this time, similar to baseline. Transfuse for hemoglobin less than 7. Anxiety: Continue home medication Chronic pain: Review home medications, continue as appropriate. P.r.n. pain medication for acute femur fracture. Discharge Plan: LTAC (Inpatient rehab) Plan to discharge in: Greater than 2 days - Advance Directives Does patient have a Living Will: Yes Does patient have a Durable POA for Healthcare: Yes - Code Status/Comfort Care Code Status Assessed: Yes (Full code) Critical Care: No Time Spent Managing Pts Care (In Minutes): 55 <Benedict Matta - Last Filed: 11/21/20 02:32> - Plan Case discussed in detail with nurse practitioner. Agree with plan of care. <Vineet Charlton - Last Filed: 11/21/20 18:15>
[2020-11-21] MEDS ORDERED: clonazePAM 0.5 MG TAB PO PRN (04:07)
[2020-11-21] MEDS ORDERED: TRAZODONE 50 MG TABLET PO PRN (04:07)
[2020-11-21] MEDS ORDERED: ONDANSETRON 4 MG/2 ML VIAL IV PRN (04:07)
[2020-11-21] MEDS: NA CHLORIDE 0.9% 1,000 ML IV SCH ×2 (04:12→17:27)
[2020-11-21 04:48] VITALS: BMI 20.2
[2020-11-21] MEDS: MORPHINE 4 MG/ML SYR IV PRN ×2 (04:55→11:09)
[2020-11-21 05:50] LABS: Urine Appearance CLEAR; Urine Bilirubin NEGATIVE (NEG); Urine Blood NEGATIVE (NEG); Urine Color ORANGE; Urine Glucose NEGATIVE (NEG); Urine Protein NEGATIVE (NEG); Urine Specific Gravity >=1.030 (1.005-1.030)
[2020-11-21 05:58] LABS: Urine Microscopic Reflex ORDER UMIC
[2020-11-21 06:17] LABS: Urine Bacteria <20 /HPF (<20); Urine RBC NONE SEEN /HPF (NONE SEEN); Urine Yeast PRESENT (NONE SEEN)
[2020-11-21] MEDS ORDERED: INFLUENZA VACCINE (for 3y+) 0.5 ML DOSE IMVAC ONE (08:00)
[2020-11-21] MEDS ORDERED: Meropenem 1 GM/100 ML BAG IV SCH (09:00)
[2020-11-21] MEDS ORDERED: Meropenem 1000 MG/VIAL IV SCH (09:00)
[2020-11-21] MEDS: ENOXAPARIN 40 MG/0.4 ML SQ SCH (09:21)
[2020-11-21] MEDS: Meropenem 1 GM/100 ML BAG IV SCH ×2 (09:23→20:18)
[2020-11-21 09:26] LABS: Absolute Lymphocytes (CBC) 0.4 K/uL (0.7-4.9); Basophils % 0.9 % (0-1.3); Hematocrit 27.2 % (36.0-45.0); Lymphocytes % 11.6 % (15.3-44.8); MPV 9.3 fL (7.6-11.3); RBC Red Blood Cell Count 2.79 M/uL (3.86-4.86)
[2020-11-21 09:33] LABS: Magnesium 2.2 mg/dL (1.8-2.4); Potassium 3.7 mmol/L (3.5-5.1)
[2020-11-21] MEDS ORDERED: POTASSIUM CL SA 10 MEQ TAB PO ONE (09:45)
--- NOTE | 2020-11-21 11:37 | CON ---
Date of Consultation: 11/21/2020 Reason For Consultation: Left hip pain. History Of Present Illness: Tina is a 75-year-old female with history of anemia and chronic UTI, w ho presented to the ER with left hip pain. She had a fall approximately 1 week ago and has had some pain in the left hip since that time. CT scan and ER demonstrated a nondisplaced left greater trocha nteric femur fracture without any extension to the intertrochanteric region. Given her continued michelle n and difficulty with mobilization, she was admitted for pain control, treatment of her UTI as well a s physical therapy with mobilization. She also reports some chronic left knee pain, which she was to ld that she has had surgery for the past but was unable to proceed. Review of Systems: As above, otherwise negative. Past Medical History: Includes hypertension, hypothyroidism, chronic UTIs, anxiety and vertigo. Past Surgical History: Hysterectomy, cholecystectomy, right hip surgery, knee surgery, eye surgery, tonsillectomy. Medications: Synthroid, Prilosec, clonazepam, oxycodone, losartan, hydrochlorothiazide. Allergies: COMPAZINE. Social History: Reports past tobacco use. No current tobacco use. Denies alcohol or drug use. Germaine es at home. Physical Examination: General: In no apparent distress. She does have some anxiousness. HEENT: Normocephalic, atraumatic. Neck: Supple. Cardiovascular: Brisk cap refill to all digits. Chest: Nonlabored breathing. Abdomen: Nondistended. Psychiatric: Responsive to exam. Musculoskeletal: Left lower extremity, some mild tenderness to palpation over the left hip. No pain with internal or external rotation of the left hip. Some mild swelling about the left knee and neur ovascularly intact distally. Right lower extremity; functional range of motion without pain. No oscar ss deformities. No obvious dislocations. Bilateral upper extremities; functional range of motion. No pain. No gross deformities. No obvious dislocations. Diagnostic Studies: CT scan of the left hip demonstrates a nondisplaced left transverse greater troc hanteric fracture of the left femur and appears to extend into the intertrochanteric region of the le ft femur. Assessment And Plan: Ms. Padron is a 75-year-old female with urinary tract infection and a left grea ter trochanteric femur fracture. Surgical intervention is not indicated at this time. The patient m ay be weightbearing as tolerated on the left lower extremity. Physical therapy to be consulted to nikole wu with mobilization. The patient may follow up with us in 2 weeks for re-evaluation. CV/MODL Voice ID: [id number] Report ID: [id number]
--- NOTE | 2020-11-21 11:44 | RAD REPORT ---
CLINICAL HISTORY: Fall/pain COMPARISON: 08/15/2020 TECHNIQUE: Axial CT of the head obtained from the skull apex to the skull base without contrast. Axi al CT images of the cervical spine obtained from the skull base through the thoracic inlet. Sagittal and coronal reformatted images available. CT of the chest, abdomen, and pelvis obtained following the intravenous administration of iodinated contrast. FINDINGS: CT head: No acute intracranial hemorrhage identified. No mass, mass effect, shift of the midline, abnormal ext ra-axial fluid collection or CT evidence of acute ischemic change identified. Mild enlargement of josiane tricular system and sulcal spaces. Scattered areas of hypodensity in the supratentorial white matte r are nonspecific and may represent sequela of chronic small vessel ischemic change. The visualized paranasal sinuses and the mastoids are clear. No skull fracture identified. Visual ized orbits and globes are unremarkable. Cervical CT: Alignment of the cervical spine is maintained without evidence of subluxation. The atlantoaxial, at lantodental, and occipitoatlantal intervals are preserved. No fracture identified. Vertebral body h eight preserved. Prevertebral soft tissues are unremarkable. Mild multilevel loss of intervertebral disc height with endplate spondylosis, uncovertebral spurring, and facet arthropathy. Visualized skull base is intact. No fracture of the visualized facial bones. Visualized mastoid air c ells and paranasal sinuses are well aerated. Carotid artery atherosclerosis. No cervical lymphadenopathy. Chest: Thyroid: No abnormalities of the visualized thyroid. Great Vessels: Great vessels have normal anatomic configuration. Thoracic Aorta: Atherosclerotic calcification thoracic aorta. Pulmonary arteries: No filling defects in the central pulmonary arteries. Heart: Coronary artery atherosclerosis. No cardiomegaly or significant pericardial effusion. Lymph Nodes: No enlarged mediastinal lymph nodes identified. Esophagus: Small hiatal hernia. Other: No additional findings. Lungs: Minimal bibasilar dependent atelectasis. No confluent airspace consolidation. Pleura: No pleural effusion or pneumothorax. Trachea/Airways: No acute abnormality of the trachea. Abdomen: Liver: The liver has normal size and density. No intrahepatic mass or biliary dilatation. Gallbladder: Prior cholecystectomy. Spleen, Pancreas, and Adrenal Glands: Fatty replacement of the pancreas. Spleen and adrenal glands are unremarkable. Kidneys: The kidneys have normal size and contour without evidence of solid mass or hydronephrosis. Multiple bilateral renal cysts, largest on the right measuring 4.8 cm. Vasculature: Aortoiliac atherosclerosis. IVC is unremarkable. The portal vein is patent. The proxim al visceral and renal arteries are patent. Stomach: The stomach and duodenum have normal course. Other: No free intraperitoneal air. Minimal trace free fluid. Pelvis: Bladder: Mild wall thickening of the urinary bladder. Bowel: No dilated loops of large or small bowel. Mild wall thickening of the transverse and ascendi ng colon. Appendix: Normal appendix. Pelvis: Left gluteal dorsal generator. Prior hysterectomy. Bones: There is joint space narrowing and marginal osteophytosis of the hips. Multilevel degenerative disc height narrowing and endplate spondylosis with facet arthropathy. Stable compression deformity of the L1 vertebral body. Prior right proximal femoral fixation. Osteopenia. Nondisplaced comminuted fracture of the left greater trochanter. IMPRESSION: 1. No acute intracranial abnormality. 2. No acute fracture or subluxation of the cervical spine. 3. Comminuted nondisplaced fracture of the left greater trochanter. 4. Coronary artery atherosclerosis. 5. Wall thickening of the transverse and descending colon. These findings could be seen with nonspe cific colitis. 6. Mild wall thickening of the urinary bladder. This may be related to under distention or could be seen with cystitis. This exam was performed according to our departmental dose-optimization program, which includes autom ated exposure control, adjustment of the mA and/or kV according to patient size and/or use of iterati ve reconstruction technique. Electronically signed by: Sachin Cota 11/20/2020 11:41 PM BIOMEDICAL FIELD SERVICE ENGINEER Due to temporary technical issues with the PACS/Fluency reporting system, reports are being signed by the in house radiologist without review as a courtesy to ensure prompt reporting. The interpreting r adiologist is fully responsible for the content of the report.
[2020-11-21] MEDS ORDERED: ACETAMINOPHEN PO PRN (18:18)
[2020-11-21] MEDS ORDERED: OXYCODONE HCL PO PRN (18:18)
--- NOTE | 2020-11-21 18:18 | P.PN ---
Subjective Date of Service: 11/21/20 Primary Care Provider: Unknown Chief Complaint: L nondisplaced comminuted greater trochanteric femur fracture, UTI Subjective: Doing well Physical Examination - Vital Signs Temperature: 98.5 F Blood Pressure: 124/60 Pulse: 64 Respirations: 20 Pulse Ox (%): 100 - Physical Exam General: Alert, In no apparent distress, Oriented x3, Cooperative HEENT: Atraumatic Neck: Supple Respiratory: Clear to auscultation bilaterally, Normal air movement Cardiovascular: Normal pulses, Regular rate/rhythm Gastrointestinal: Normal bowel sounds, No tenderness, No masses, No rebound, No guarding Neurological: Normal speech, Normal strength at 5/5 x4 extr, Normal tone, Normal affect - Studies Laboratory Data (last 24 hrs) 11/20/20 19:25: Troponin I < 0.02 11/20/20 19:25: Sodium 141, Potassium 3.7, BUN 17, Creatinine 1.00, Glucose 96 11/20/20 19:25: WBC 4.6, Hgb 9.1 L, Hct 27.8 L, Plt Count 115 L Medications List Reviewed: Yes Assessment & Plan Discharge Plan: Home Plan to discharge in: 72 Hours Physician Review Additional Text: Assessment Nondisplaced comminuted left greater trochanteric femur fracture UTI previously diagnosed with ESBL Hypothyroidism Hypertension Anemia of chronic disease Anxiety Chronic pain Plan Nondisplaced comminuted left greater trochanteric femur fracture: Case discussed in detail with orthopedics. No surgical intervention required. Continue with pain control. Will have physical therapy assess and evaluate. Continue with orthopedic recommendations of WBAT with PT. PICC line ordered as UTI likely ESBL. Await cultures. This will likely occur within the next 48 hr. Anticipate home on Tuesday with IV antibiotic therapy at discharge. I will turn the service over to the hospitalist team tomorrow. I will go plan of care with him. UTI previously diagnosed with ESBL: Continue IV antibiotic therapy. Suspect ESBL. PICC line ordered. If positive for ESBL patient will need IV antibiotic therapy at home. Hypothyroidism: Continue home medications Hypertension: Continue home medication Anemia of chronic disease: Hemoglobin stable this time, similar to baseline. Transfuse for hemoglobin less than 7. Anxiety: Continue home medication Chronic pain: Review home medications, continue as appropriate. P.r.n. pain m edication for acute femur fracture. Time Spent Managing Pts Care (In Minutes): 55
--- NOTE | 2020-11-21 18:49 | RAD REPORT ---
EXAM DESCRIPTION: RAD - Chest Single View - 11/21/2020 6:27 pm CLINICAL HISTORY: PICC line placement COMPARISON: Portable November 20 FINDINGS: Portable chest was obtained following placement of a right upper extremity PICC line. The catheter tip is in the distal SVC.
[2020-11-21] MEDS: ALPRAZOLAM 1 MG TABLET PO SCH (20:19)
[2020-11-21] MEDS ORDERED: ALPRAZOLAM 2 MG PO SCH (21:00)
[2020-11-22] MEDS: MORPHINE 4 MG/ML SYR IV PRN ×2 (03:20→09:18)
[2020-11-22] MEDS: Oxycodone HCl/Acetaminophen 1 TAB TAB PO PRN (05:21)
[2020-11-22] MEDS: LEVOTHYROXINE SOD 0.088 MG TAB PO SCH (05:22)
[2020-11-22 06:10] LABS: Absolute Lymphocytes (CBC) 0.3 K/uL (0.7-4.9); Basophils % 0.7 % (0-1.3); Hematocrit 22.9 % (36.0-45.0); Lymphocytes % 10.4 % (15.3-44.8); MPV 8.7 fL (7.6-11.3); RBC Red Blood Cell Count 2.37 M/uL (3.86-4.86)
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
[2020-11-22] MEDS ORDERED: HALOPERIDOL LACT 5 MG/ML INJ IM PRN (07:15)
[2020-11-22] MEDS ORDERED: FUROSEMIDE 20 MG/ 2ML VIAL IV ONE (07:16)
[2020-11-22] MEDS ORDERED: ACETAMINOPHEN 500 MG TAB PO ONE (07:16)
[2020-11-22 07:37] LABS: Anisocytosis 1+; Blood Morphology Comment NOTED (NOT SEEN); Platelet Estimate DECR; White Blood Cell Scan OK (OK)
[2020-11-22] MEDS ORDERED: NA CHLORIDE 0.9% 250 ML IV SCH (08:00)
[2020-11-22] MEDS ORDERED: METOPROLOL TAR 50 MG TAB PO SCH (09:00)
[2020-11-22] MEDS: ENOXAPARIN 40 MG/0.4 ML SQ SCH (09:15)
[2020-11-22] MEDS: Meropenem 1 GM/100 ML BAG IV SCH ×2 (09:15→21:38)
[2020-11-22] MEDS: AMLODIPINE 5 MG TAB PO SCH (09:16)
[2020-11-22] MEDS ORDERED: QUETIAPINE 25 MG TAB PO ONE (10:12)
[2020-11-22] MEDS: METOPROLOL TAR 25 MG TAB PO SCH (18:00)
[2020-11-22] MEDS: ALPRAZOLAM 1 MG TABLET PO SCH (21:00)
[2020-11-23] MEDS: METOPROLOL TAR 25 MG TAB PO SCH ×2 (05:04→17:27)
[2020-11-23] MEDS: LEVOTHYROXINE SOD 0.088 MG TAB PO SCH ×2 (05:07→05:09)
[2020-11-23 05:11] LABS: Absolute Lymphocytes (CBC) 0.3 K/uL (0.7-4.9); Hematocrit 23.9 % (36.0-45.0); Lymphocytes % 12.1 % (15.3-44.8); MPV 8.8 fL (7.6-11.3); RBC Red Blood Cell Count 2.46 M/uL (3.86-4.86)
[2020-11-23] MEDS: MORPHINE 4 MG/ML SYR IV PRN ×2 (06:40→20:39)
[2020-11-23] MEDS: ENOXAPARIN 40 MG/0.4 ML SQ SCH (09:00)
[2020-11-23] MEDS: Meropenem 1 GM/100 ML BAG IV SCH (09:53)
[2020-11-23] MEDS: AMLODIPINE 5 MG TAB PO SCH (09:54)
--- NOTE | 2020-11-23 12:09 | P.PN ---
Subjective Date of Service: 11/23/20 Primary Care Provider: Unknown Chief Complaint: L nondisplaced comminuted greater trochanteric femur fracture, UTI Patient complaining of significant pain in the left shoulder and in the left leg. A recent fall with a UTI Review of Systems General: Weakness Musculoskeletal: Other (Significant pain in the left shoulder and the left leg) Physical Examination - Vital Signs Temperature: 98.3 F Blood Pressure: 143/63 Pulse: 58 Respirations: 18 Pulse Ox (%): 94 - Physical Exam General: Alert, Oriented x3, Moderate distress Respiratory: Clear to auscultation bilaterally Cardiovascular: No edema, Normal S1 S2 Gastrointestinal: Normal bowel sounds, Soft and benign Musculoskeletal: Other (Significant bruising over the a left shoulder) Integumentary: No rashes, No breakdown - Studies Medications List Reviewed: Yes Assessment & Plan - Problems (Diagnosis) (1) UTI (urinary tract infection) Onset Date: 06/29/17 Current Visit: No Status: Acute Plan: Patient admitted with a urinary tract infection Klebsiella isolated change to narrow spectrum antibiotic mild neutropenia patient has normal renal function blood cultures negative Qualifiers: Urinary tract infection type: site unspecified Hematuria presence: without hematuria Qualified Code(s): N39.0 - Urinary tract infection, site not specified (2) Trochanteric fracture of left femur Current Visit: Yes Status: Acute Plan: Comminuted nondisplaced fracture of the left greater trochanter cyst significant amount arm discomfort orthopedics have been consulted massive at some blood loss hemoglobin is decline patient refused blood transfusion Qualifiers: Encounter type: subsequent encounter Fracture type: closed Physician Review: Patient Assessed, Agree with Above Assessment and Plan
[2020-11-23] MEDS ORDERED: CEFTRIAXONE/SWI 1gm 1 GM/10 ML SYR IVP SCH (13:00)
[2020-11-23] MEDS: CEFTRIAXONE/SWI 1gm 1 GM/10 ML SYR IV SCH (13:23)
[2020-11-23] MEDS: Oxycodone HCl/Acetaminophen 1 TAB TAB PO PRN (13:24)
[2020-11-23] MEDS: OXYCODONE HCL 5 MG TAB PO PRN (18:29)
[2020-11-24] MEDS: ALPRAZOLAM 1 MG TABLET PO SCH (00:05)
[2020-11-24] MEDS: Oxycodone HCl/Acetaminophen 1 TAB TAB PO PRN (05:00)
[2020-11-24] MEDS: OXYCODONE HCL 5 MG TAB PO PRN (05:02)
[2020-11-24 05:03] LABS: MPV 8.4 fL (7.6-11.3); RBC Red Blood Cell Count 2.21 M/uL (3.86-4.86)
[2020-11-24] MEDS: LEVOTHYROXINE SOD 0.088 MG TAB PO SCH (05:03)
[2020-11-24] MEDS: METOPROLOL TAR 25 MG TAB PO SCH ×2 (05:04→17:36)
[2020-11-24 05:16] LABS: BUN Blood Urea Nitrogen 11 mg/dL (7-18); Bicarbonate 31 mmol/L (21-32); Glucose Level 67 mg/dL (74-106); Potassium 4.6 mmol/L (3.5-5.1); Sodium Level 141 mmol/L (136-145)
[2020-11-24] MEDS: AMLODIPINE 5 MG TAB PO SCH (09:00)
[2020-11-24] MEDS: ENOXAPARIN 40 MG/0.4 ML SQ SCH (09:00)
[2020-11-24] MEDS ORDERED: CEFTRIAXONE/SWI 1gm 1 GM/10 ML SYR IV SCH (09:00)
[2020-11-24] MEDS: CEFTRIAXONE/SWI 1gm 1 GM/10 ML SYR IV SCH (09:46)
[2020-11-24] MEDS ORDERED: DIVALPROEX DR 250 MG TAB PO ONE (13:18)
[2020-11-24] MEDS: MORPHINE 2 MG/ML SYR IV PRN ×2 (14:07→23:47)
[2020-11-24] MEDS: clonazePAM 0.5 MG TAB PO SCH ×3 (14:07→21:00)
[2020-11-24] MEDS: DIVALPROEX DR 250 MG TAB PO SCH ×3 (20:27→23:45)
[2020-11-25] MEDS: ALPRAZOLAM 1 MG TABLET PO SCH ×3 (00:51→21:35)
[2020-11-25 04:51] LABS: Absolute Lymphocytes (CBC) 0.6 K/uL (0.7-4.9); Basophils % 1.3 % (0-1.3); Hematocrit 22.7 % (36.0-45.0); MPV 8.3 fL (7.6-11.3); RBC Red Blood Cell Count 2.36 M/uL (3.86-4.86)
[2020-11-25] MEDS: METOPROLOL TAR 25 MG TAB PO SCH ×3 (05:42→18:17)
[2020-11-25] MEDS: LEVOTHYROXINE SOD 0.088 MG TAB PO SCH ×2 (05:48→05:51)
[2020-11-25] MEDS: CEFTRIAXONE/SWI 1gm 1 GM/10 ML SYR IV SCH (07:50)
[2020-11-25] MEDS: DIVALPROEX DR 250 MG TAB PO SCH ×2 (07:51→21:00)
[2020-11-25] MEDS: AMLODIPINE 5 MG TAB PO SCH (07:51)
[2020-11-25] MEDS: MORPHINE 2 MG/ML SYR IV PRN (07:52)
[2020-11-25] MEDS: ENOXAPARIN 40 MG/0.4 ML SQ SCH (09:00)
[2020-11-25] MEDS: clonazePAM 0.5 MG TAB PO SCH ×4 (09:00→21:35)
--- NOTE | 2020-11-25 15:40 | P.PN ---
Subjective Date of Service: 11/24/20 Patient is having a hard time with ambulation. She is having a lot of pain with a fractured leg. She has also gotten very the motivated with repeated arguments with her . She is working with physical therapy by getting out of bed and she needs to do much more. She appears to be very angry and at times I have seen her with while I was in the room lash out at her . Plan to get inpatient rehab evaluation. Review of Systems 10-point ROS is otherwise unremarkable Physical Examination - Vital Signs Temperature: 97.5 F Blood Pressure: 117/57 Pulse: 65 Respirations: 16 Pulse Ox (%): 96 - Physical Exam General: Alert, In no apparent distress, Oriented x3 Respiratory: Clear to auscultation bilaterally, Normal air movement Cardiovascular: Regular rate/rhythm, Normal S1 S2, No murmurs Gastrointestinal: Normal bowel sounds, Soft and benign, Non-distended, No tenderness Musculoskeletal: No clubbing, No swelling, No tenderness Neurological: Sensation intact, Cranial nerves 3-12 intact - Studies Medications List Reviewed: Yes Assessment & Plan - Problems (Diagnosis) (1) Trochanteric fracture of left femur Current Visit: Yes Status: Acute Qualifiers: Encounter type: subsequent encounter Fracture type: closed (2) Altered mental status, unspecified Current Visit: No Status: Acute Qualifiers: Altered mental status type: somnolence Qualified Code(s): R40.0 - Somnolence (3) Chronic pain syndrome Current Visit: No Status: Acute (4) Dehydration Current Visit: No Status: Acute (5) Dizziness Current Visit: No Status: Acute (6) UTI (urinary tract infection) Onset Date: 06/29/17 Current Visit: No Status: Acute Qualifiers: Urinary tract infection type: site unspecified Hematuria presence: without hematuria Qualified Code(s): N39.0 - Urinary tract infection, site not specified (7) Chronic pain disorder Current Visit: No Status: Chronic - Plan Plan: 1. Continue with pain medication 2. Continue with medication for her mood disorder 3. Physical therapy evaluation 4. Anxiolytics 5. Monitor labs closely 6. GI and DVT prophylaxis Discharge Plan: Home Plan to discharge in: Greater than 2 days - Advance Directives Does patient have a Living Will: No Does patient have a Durable POA for Healthcare: No - Code Status/Comfort Care Code Status Assessed: Yes Code Status: Full Code Physician Review: Patient Assessed, Agree with Above Assessment and Plan Critical Care: No Time Spent Managing PTS Care (In Minutes): 35
[2020-11-26 05:53] LABS: BUN Blood Urea Nitrogen 14 mg/dL (7-18); Bicarbonate 31 mmol/L (21-32); Glucose Level 70 mg/dL (74-106); Potassium 4.4 mmol/L (3.5-5.1); Sodium Level 142 mmol/L (136-145)
[2020-11-26] MEDS: METOPROLOL TAR 25 MG TAB PO SCH ×2 (06:00→17:21)
[2020-11-26] MEDS: LEVOTHYROXINE SOD 0.088 MG TAB PO SCH ×2 (06:15→06:30)
[2020-11-26] MEDS: CEFTRIAXONE/SWI 1gm 1 GM/10 ML SYR IV SCH (08:12)
[2020-11-26] MEDS: ENOXAPARIN 40 MG/0.4 ML SQ SCH (08:12)
[2020-11-26] MEDS: DIVALPROEX DR 250 MG TAB PO SCH ×4 (08:13→20:49)
[2020-11-26] MEDS: AMLODIPINE 5 MG TAB PO SCH (08:13)
[2020-11-26] MEDS: clonazePAM 0.5 MG TAB PO SCH ×3 (08:13→20:44)
[2020-11-26] MEDS: MORPHINE 2 MG/ML SYR IV PRN ×2 (08:21→13:43)
--- NOTE | 2020-11-26 09:25 | RAD REPORT ---
EXAM DESCRIPTION: RAD - Hip Left 2 View - 11/26/2020 9:03 am CLINICAL HISTORY: pain COMPARISON: Abdomen Pelvis Wo Contrast dated 04/29/2020 FINDINGS: AP and cross-table lateral views of the left hip joint were obtained. Bones are osteopenic. No fracture or dislocation. Left femoral head maintains smooth rounded contour. No radiographic evidence for AVN. No pathologic bone process seen. Prominent lower lumbar degenerative changes are present. Neurostimulator battery pack and wire overl ie the left side of the pelvis with the wire extending to the right-side of the pelvis. Partially rosalie ged fixation hardware in the proximal right femur there is significant but only partially imaged righ t hip joint degenerative change. Mild SI joint degenerative change. No periarticular soft tissue abnormality. IMPRESSION: Osteopenic and minimal degenerative changes are present at the hip joint. No fracture or acute finding. Prominent lower lumbar degenerative change and mild to moderate bilateral SI joint degenerative aranda e, partially imaged.
[2020-11-26] MEDS: Oxycodone HCl/Acetaminophen 1 TAB TAB PO PRN (17:20)
[2020-11-26] MEDS: ALPRAZOLAM 1 MG TABLET PO SCH (20:44)
[2020-11-27] MEDS: MORPHINE 2 MG/ML SYR IV PRN ×3 (04:40→21:37)
[2020-11-27] MEDS: METOPROLOL TAR 25 MG TAB PO SCH ×2 (06:00→18:00)
[2020-11-27] MEDS: LEVOTHYROXINE SOD 0.088 MG TAB PO SCH (06:37)
[2020-11-27] MEDS: DIVALPROEX DR 250 MG TAB PO SCH ×2 (09:00→21:00)
[2020-11-27] MEDS: ENOXAPARIN 40 MG/0.4 ML SQ SCH (09:35)
[2020-11-27] MEDS: CEFTRIAXONE/SWI 1gm 1 GM/10 ML SYR IV SCH (09:35)
[2020-11-27] MEDS: clonazePAM 0.5 MG TAB PO SCH ×3 (09:36→21:00)
[2020-11-27] MEDS: AMLODIPINE 5 MG TAB PO SCH (09:36)
[2020-11-27] MEDS: ALPRAZOLAM 1 MG TABLET PO SCH (21:00)
[2020-11-27 22:20] VITALS: O2SAT 98
[2020-11-28] MEDS: MORPHINE 2 MG/ML SYR IV PRN ×2 (03:47→09:13)
[2020-11-28] MEDS: METOPROLOL TAR 25 MG TAB PO SCH (05:39)
[2020-11-28] MEDS: LEVOTHYROXINE SOD 0.088 MG TAB PO SCH (05:40)
[2020-11-28 06:33] LABS: BUN Blood Urea Nitrogen 14 mg/dL (7-18); Bicarbonate 31 mmol/L (21-32); Glucose Level 73 mg/dL (74-106); Potassium 4.2 mmol/L (3.5-5.1); Sodium Level 143 mmol/L (136-145)
[2020-11-28] MEDS: DIVALPROEX DR 250 MG TAB PO SCH (09:00)
[2020-11-28] MEDS: AMLODIPINE 5 MG TAB PO SCH (09:00)
[2020-11-28] MEDS: CEFTRIAXONE/SWI 1gm 1 GM/10 ML SYR IV SCH (09:13)
[2020-11-28] MEDS: ENOXAPARIN 40 MG/0.4 ML SQ SCH (09:13)
[2020-11-28] MEDS: clonazePAM 0.5 MG TAB PO SCH ×2 (09:14→14:59)
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
--- NOTE | 2020-11-28 09:47 | P.PN ---
Date of Service: 11/26/20 Subjective Awaiting for placement. Patient does not want to go home and she wants to try to get in to inpatient therapy. Patient was not accepted into acute rehab. Trying for detention placement as well. Review of Systems 10-point ROS is otherwise unremarkable Physical Examination - Vital Signs Reviewed - Physical Exam General: Alert, In no apparent distress, Oriented x3 Respiratory: Clear to auscultation bilaterally, Normal air movement Cardiovascular: Regular rate/rhythm, Normal S1 S2, No murmurs Gastrointestinal: Normal bowel sounds, Soft and benign, Non-distended, No tenderness Musculoskeletal: No clubbing, No swelling, No tenderness Neurological: Sensation intact, Cranial nerves 3-12 intact Assessment & Plan - Problems (Diagnosis) (1) Trochanteric fracture of left femur Current Visit: Yes Status: Acute Qualifiers: Encounter type: subsequent encounter Fracture type: closed (2) Altered mental status, unspecified Current Visit: No Status: Acute Qualifiers: Altered mental status type: somnolence Qualified Code(s): R40.0 - Somnolence (3) Chronic pain syndrome Current Visit: No Status: Acute (4) Dehydration Current Visit: No Status: Acute (5)bipolar disorder Current Visit: No Status: Acute (6) UTI (urinary tract infection) Onset Date: 06/29/17 Current Visit: No Status: Acute Qualifiers: Urinary tract infection type: site unspecified Hematuria presence: without hematuria Qualified Code(s): N39.0 - Urinary tract infection, site not specified (7) Chronic pain disorder Current Visit: No Status: Chronic - Plan Plan: 1. Awaiting for placement. A lot of psychosocial issues with the patient that need to be addressed. Put her on a mood disorder as well. 2. Continue with pain control for hip fracture 3. Physical therapy evaluation and treatment appreciated 4. Anxiolytics 5. Monitor labs closely 6. GI and DVT prophylaxis
--- NOTE | 2020-11-28 09:48 | P.PN ---
Date of Service: 11/27/20 Subjective Awaiting for placement. [facility] inpatient rehab pending Review of Systems 10-point ROS is otherwise unremarkable Physical Examination - Vital Signs Reviewed - Physical Exam General: Alert, In no apparent distress, Oriented x3 Respiratory: Clear to auscultation bilaterally, Normal air movement Cardiovascular: Regular rate/rhythm, Normal S1 S2, No murmurs Gastrointestinal: Normal bowel sounds, Soft and benign, Non-distended, No tenderness Musculoskeletal: No clubbing, No swelling, significant tenderness on the left hip Neurological: Sensation intact, Cranial nerves 3-12 intact Assessment & Plan - Problems (Diagnosis) (1) Trochanteric fracture of left femur Current Visit: Yes Status: Acute Qualifiers: Encounter type: subsequent encounter Fracture type: closed (2) Altered mental status, unspecified Current Visit: No Status: Acute Qualifiers: Altered mental status type: somnolence Qualified Code(s): R40.0 - Somnolence (3) Chronic pain syndrome Current Visit: No Status: Acute (4) Dehydration Current Visit: No Status: Acute (5)bipolar disorder Current Visit: No Status: Acute (6) UTI (urinary tract infection) Onset Date: 06/29/17 Current Visit: No Status: Acute Qualifiers: Urinary tract infection type: site unspecified Hematuria presence: without hematuria Qualified Code(s): N39.0 - Urinary tract infection, site not specified (7) Chronic pain disorder Current Visit: No Status: Chronic - Plan Plan: Continue with plan of care as mentioned below 1. Awaiting for placement. A lot of psychosocial issues with the patient that need to be addressed. Put her on a mood disorder as well. 2. Continue with pain control for hip fracture 3. Physical therapy evaluation and treatment appreciated 4. Anxiolytics 5. Monitor labs closely 6. GI and DVT prophylaxis
--- NOTE | 2020-11-28 09:53 | P.PN ---
Subjective Date of Service: 11/26/20 Primary Care Provider: Unknown Chief Complaint: L nondisplaced comminuted greater trochanteric femur fracture, UTI Subjective: Working w/ PT Physical Examination - Vital Signs Temperature: 97.4 F Blood Pressure: 117/55 Pulse: 54 Respirations: 17 Pulse Ox (%): 98 - Physical Exam General: Alert, In no apparent distress Musculoskeletal: Other (LLE: ttp over the greater trochanter; some pain with ROM of the hip; moves toes grossly; bcr all digits LUE: no ttp over the proximal humerus; no ecchymoses; some pain with ROM; NVI distally) - Studies Medications List Reviewed: Yes Assessment And Plan - Plan Tina is a 75 y/o female with a left greater trochanter fracture, a healed left proximal humerus fracture and severe degenerative arthritis of the left knee -repeat xray of the left hip negative for fracture propagation; demonstrates greater trochanter fracture -continue PT to mobilize; WBAT LLE, LUE with pain control -pending IPR vs SNF placement -no surgical intervention indicated at this time -february f/u in my clinic in 2 weeks with repeat xrays of the left hip Physician Review: Patient Assessed, Agree with Above Assessment and Plan
[2020-11-28 14:40] VITALS: BP 114/54; TEMP 98
[2020-11-28] MEDS ORDERED: ENSURE ENLIVE 237 ML CAN PO SCH (21:00)
--- NOTE | 2020-12-03 01:44 | P.DS ---
Discharge Date: 11/28/20 Primary Care Provider: Unknown Disposition: TRANSFER TO SNF - REHAB Discharge Condition: GOOD Reason for Admission: L nondisplaced comminuted greater trochanteric femur fracture, UTI Consultations: Orthopedics - Problems (1) Trochanteric fracture of left femur Status: Acute Qualifiers: Encounter type: subsequent encounter Fracture type: closed (2) Altered mental status, unspecified Status: Acute Qualifiers: Altered mental status type: somnolence Qualified Code(s): R40.0 - Somnolence (3) Chronic pain syndrome Status: Acute (4) Dehydration Status: Acute (5) Dizziness Status: Acute (6) UTI (urinary tract infection) Onset Date: 06/29/17 Status: Acute Qualifiers: Urinary tract infection type: site unspecified Hematuria presence: without hematuria Qualified Code(s): N39.0 - Urinary tract infection, site not specified (7) Chronic pain disorder Status: Chronic Brief History of Present Illness: 72-year-old female with history of anemia, chronic urinary tract infections presents emergency department for left hip pain. Patient reports that she had a fall on 11/16/2020 and has been having left hip pain since that time. Patient reports that even prior to the fall she has been having decline and ability to do her 82 else including walking, patient reports that she has a walker, cane, wheelchair at her house but she is having difficulty getting around still. Patient reports that now since her fall she is unable to bear weight or walk on the affected extremity. Patient also reports that she is still having dysuria and frequency. Patient was evaluated in the emergency department found to have urinary tract infection x-rays of the knee, pelvis, shoulder were obtained without any acute findings but patient had follow up CT scan which did demonstrate a nondisplaced comminuted left greater trochanteric femur fracture. Upon reviewing urine culture from previous admission on 05/27/2020 patient had a E. coli ESBL and was reported to have been taking Bactrim and vancomycin at home but it was not sensitive to this. When I saw the patient in the ER she is awake, alert, oriented x3. Patient does not appear septic at this time, complaining of pain to the left hip. Hospital Course: There was a lot of social dynamics that prolonged patient's hospitalization. It did not appear that patient wanted to go home with her . We went ahead and made arrangements for jail facility placement after inpatient we have refused to accept her to the hospital. Patient was finally accepted and we discharged her home with outpatient follow up. Continue with physical therapy which she has done really well with. Vital Signs/Physical Exam: Temp Pulse Resp BP Pulse Ox 98.0 F 59 18 114/54 L 99 11/28/20 12:00 11/28/20 12:00 11/28/20 12:00 11/28/20 12:00 11/28/20 12:00 General: Alert, In no apparent distress, Oriented x3 Laboratory Data at Discharge: WBC 3.20 K/uL (4.3-10.9) L 11/25/20 04:35 Hgb 7.4 g/dL (12.0-15.0) L* 11/25/20 04:35 Hct 22.7 % (36.0-45.0) L 11/25/20 04:35 Plt Count 127 K/uL (152-406) L D 11/25/20 04:35 Sodium 143 mmol/L (136-145) 11/28/20 05:32 Potassium 4.2 mmol/L (3.5-5.1) 11/28/20 05:32 BUN 14 mg/dL (7-18) 11/28/20 05:32 Creatinine 0.55 mg/dL (0.55-1.3) 11/28/20 05:32 Glucose 73 mg/dL (74-106) L 11/28/20 05:32 Magnesium 2.0 mg/dL (1.8-2.4) 11/28/20 05:32 Troponin I < 0.02 ng/mL (0.0-0.045) 11/20/20 19:25 Home Medications: RX: ALPRAZolam [Alprazolam] 2 mg PO BEDTIME 11/21/20 RX: Levothyroxine [Synthroid*] 0.088 mg PO DAILY 11/21/20 Codeine/APAP [Tylenol W/Codeine #3 tab] 1 tab PO Q6HP PRN #30 tab 11/28/20 RX: Ensure Enlive 237 ml PO BID #60 can 11/28/20 RX: Metoprolol Tartrate [Lopressor*] 25 mg PO BID 6AM 6PM #60 tab 11/28/20 RX: Trazodone [Desyrel*] 50 mg PO BEDTIME PRN PRN #30 tablet 11/28/20 RX: clonazePAM [Klonopin*] 0.5 mg PO TID #30 tab 11/28/20 New Medications: RX: Trazodone [Desyrel*] 50 mg PO BEDTIME PRN PRN #30 tablet PRN Reason: Insomnia RX: Ensure Enlive 237 ml PO BID #60 can RX: clonazePAM [Klonopin*] 0.5 mg PO TID #30 tab RX: Metoprolol Tartrate [Lopressor*] 25 mg PO BID 6AM 6PM #60 tab Codeine/APAP [Tylenol W/Codeine #3 tab] 1 tab PO Q6HP PRN #30 tab PRN Reason: Pain Physician Discharge Instructions: PROBLEM: Left greater trochanteric femur fracture, UTI GOAL: Clear understanding of disease process INSTRUCTIONS: - Ok to discontinue IV and discharge to Assisted . - Follow up with your primary care provider in 1-2 weeks. - Follow up with Psychiatry in 1-2 weeks. - Return to the ER if symptoms worsen. - Call or text Dr. Piña at if you have any questions regarding your hospital stay. - Please call the floor at if any medication or nursing questions. Diet: Heart healthy Activity: Fall precautions, Weight bearing as tolerated to left leg COMMUNITY SERVICES Services Needed: Retirement Facility Name of Company: [facility] Date or Referral: 11/26/2020 IMMUNIZATION Influenza Vaccine Indicated: Yes Influenza Vaccine Given: No Date Given: Pneumonia Vaccine Indicated: No Pneumonia Vaccine Given: Date Given: Diet: AHA Activity: Fall precautions Followup: Lucas Marsh [ACTIVE - CAN ADMIT] - 1-2 Weeks (Follow up in office in 1-2 w eeks. Call to schedule an appointment.) Adonis Hickey MD [ACTIVE - CAN ADMIT] - Time spent managing pt's care (in minutes): 35
== END 2020-11-28 14:20 | DRG 689 ==
LOC: ER 19:03 → ERHOLD 11-21 01:41 → 2ND 11-21 02:55
PROVIDERS: ADMIT Family Medicine; ATTEND Hospitalist
PROC: 02HV33Z Insertion of Infusion Device into Superior Vena Cava, Percutaneous Approach (ICD-10-PCS; 2020-11-21)
PROC: 30233N1 Transfusion of Nonautologous Red Blood Cells into Peripheral Vein, Percutaneous Approach (ICD-10-PCS; principal; 2020-11-22)
DX: N39.0 Urinary tract infection, site not specified (principal); S72.115A Nondisplaced fracture of greater trochanter of left femur, initial encounter for closed fracture; G92 Toxic encephalopathy; D62 Acute posthemorrhagic anemia; E03.9 Hypothyroidism, unspecified; E78.5 Hyperlipidemia, unspecified; I10 Essential (primary) hypertension; E86.0 Dehydration; F41.9 Anxiety disorder, unspecified; M17.12 Unilateral primary osteoarthritis, left knee; F31.9 Bipolar disorder, unspecified; G89.4 Chronic pain syndrome; D70.9 Neutropenia, unspecified; M25.562 Pain in left knee; D63.8 Anemia in other chronic diseases classified elsewhere; B96.1 Klebsiella pneumoniae [K. pneumoniae] as the cause of diseases classified elsewhere; W01.0XXA Fall on same level from slipping, tripping and stumbling without subsequent striking against object, initial encounter; Z88.8 Allergy status to other drugs, medicaments and biological substances; Z79.82 Long term (current) use of aspirin; Z79.899 Other long term (current) drug therapy; Z79.890 Hormone replacement therapy; Z90.49 Acquired absence of other specified parts of digestive tract; Z90.710 Acquired absence of both cervix and uterus; Z87.891 Personal history of nicotine dependence; Z20.822 Contact with and (suspected) exposure to COVID-19
CPT/HCPCS: 36415; 70450; 71045; 71260; 72125; 72170; 74177; 80048; 81003; 81015; 82728; 83540; 83735; 84145; 84466; 84484; 85025; 85027; 87040; 87077; 87086; 87088; 87186; 87205; 93005; 96365; 96375; 97110; 97116; 97161; 97530; 99285; J0696; J1650; J1940; J2185; J2270; J3010; J7030; J7050; Q2035; Q9967; U0003

== ENCOUNTER 2021-02-01 09:47 | Emergency (ER) | payer OTHER, BC ==
[2021-02-01] MEDS ORDERED: MORPHINE 4 MG/ML SYR ONE ×3 (10:59→16:51)
[2021-02-01] MEDS ORDERED: ONDANSETRON 4 MG/2 ML VIAL ONE ×3 (11:00→16:51)
[2021-02-01 11:31] LABS: Absolute Lymphocytes (CBC) 0.4 K/uL (0.7-4.9); Basophils % 1.2 % (0-1.3); Hematocrit 33.7 % (36.0-45.0); Lymphocytes % 8.3 % (15.3-44.8); MPV 7.6 fL (7.6-11.3); RBC Red Blood Cell Count 3.59 M/uL (3.86-4.86)
[2021-02-01 11:39] LABS: Protime INR 0.97
[2021-02-01 11:50] LABS: ALT/SGPT 12 U/L (12-78); AST/SGOT 12 U/L (15-37); Albumin 2.9 g/dL (3.4-5.0); Alkaline Phosphatase 131 U/L (45-117); BUN Blood Urea Nitrogen 10 mg/dL (7-18); Bicarbonate 26 mmol/L (21-32); Bilirubin Direct 0.1 mg/dL (0-0.2); Bilirubin Total 0.4 mg/dL (0.2-1.0); Glucose Level 80 mg/dL (74-106); Magnesium 1.9 mg/dL (1.8-2.4); NT PRO-BNP 613 pg/mL (<125); Potassium 3.7 mmol/L (3.5-5.1); Protein, Total 6.1 g/dL (6.4-8.2); Sodium Level 142 mmol/L (136-145); Troponin (Emerg Dept Use Only) < 0.02 ng/mL (0.0-0.045)
[2021-02-01 12:06] LABS: White Blood Cell Scan OK (OK)
[2021-02-01 12:07] LABS: Blood Morphology Comment NOT SEEN (NOT SEEN); Platelet Estimate ADEQ
--- NOTE | 2021-02-01 12:28 | RAD REPORT ---
EXAM DESCRIPTION: US - Extremity Venous Uni Ltd - 02/01/2021 11:48 am CLINICAL HISTORY: PAIN Leg swelling and edema. COMPARISON: No comparisons FINDINGS: Left lower extremity venous system was interrogated with Doppler technique. Normal flow, c ompressibility and augmentation was noted. There is no DVT present. IMPRESSION: No evidence of left lower extremity deep venous thrombosis.
--- NOTE | 2021-02-01 13:06 | RAD REPORT ---
EXAM DESCRIPTION: RAD - Knee Left 3 View - 02/01/2021 12:46 pm CLINICAL HISTORY: PAIN COMPARISON: Knee Left 3 View dated 11/20/2020; Knee Left 2 View dated 04/03/2020 FINDINGS: Left total knee arthroplasty is seen. No hardware loosening seen. Moderate soft tissue swe lling is noted about the knee. Small joint effusion suspected.
--- NOTE | 2021-02-01 13:07 | RAD REPORT ---
EXAM DESCRIPTION: RAD - Chest Single View - 02/01/2021 12:46 pm CLINICAL HISTORY: CONGESTION Chest pain. COMPARISON: Chest Single View dated 11/21/2020; Chest Single View dated 11/20/2020; Chest Single View dated 08/15/2020; Chest Single View dated 05/27/2020 FINDINGS: Portable technique limits examination quality. The lungs are grossly clear. The heart is normal in size. Posttraumatic changes are present involving the left shoulder. IMPRESSION: No acute intrathoracic process suspected.
--- NOTE | 2021-02-01 13:59 | ER ---
Nurse's Notes [facility] Name: Tina Padron Age: 75 yrs Sex: Female : 1945 Arrival Date: 02/01/2021 Time: 09:52 Bed 20 Private MD: Diagnosis: Pain in left knee Presentation: 02/01 09:55 Chief complaint: EMS states: "pt reporting continued left knee pain after a knee jd3 replacement about 1 and a half weeks ago. pt reported seeing the surgeon yesterday to have the stitches removed. pt reporting the prescribed Percocet is not working for the pain. surgery done in [facility].". Coronavirus screen: At this time, the client does not indicate any symptoms associated with coronavirus-19. Ebola Screen: Patient negative for fever greater than or equal to 101.5 degrees Fahrenheit, and additional compatible Ebola Virus Disease symptoms. Initial Sepsis Screen: Does the patient meet any 2 criteria? No. Patient's initial sepsis screen is negative. Does the patient have a suspected source of infection? No. Patient's initial sepsis screen is negative. Risk Assessment: Do you want to hurt yourself or someone else? Patient reports no desire to harm self or others. Onset of symptoms was February 01, 2021. 09:55 Method Of Arrival: EMS: [facility] jd3 09:55 Acuity: TYLOR 3 jd3 Historical: - Allergies: 09:59 Compazine; jd3 09:59 Meclizine; jd3 - Home Meds: 09:59 aspirin 81 mg Oral TbEC 1 tab once daily [Active]; Azo-Standard Oral as needed jd3 [Active]; clonazepam 1 mg Oral tab 1 tab nightly [Active]; Flomax 0.4 mg Oral cp24 1 cap once daily [Active]; meclizine 25 mg Oral tab 1 tab as needed [Active]; oxycodone-acetaminophen 7.5-325 mg Oral tab 1 tab every 6 hours [Active]; pantoprazole 20 mg Oral TbEC 1 tab once daily [Active]; potassium chloride 20 mEq Oral TbER 1 tab 2 times per day [Active]; simvastatin 20 mg Oral tab 1 tab once daily [Active]; omeprazole 40 mg Oral cpDR 1 cap once daily [Active]; losartan 50 mg Oral tab 1 tab 2 times per day [Active]; Synthroid 88 mcg Oral tab 1 tab once daily [Active]; Uribel 118-10-40.8-36 mg Oral tab daily [Active]; - PMHx: 09:59 Hypothyroidism; spinal fractures; chronic uti; "shattered shoulder"; Anxiety; jd3 Hyperlipidemia; Hypertension; - Immunization history:: Adult Immunizations up to date. - Social history:: Smoking status: Patient denies any tobacco usage or history of. Patient/guardian denies using alcohol, street drugs, The patient lives. - Family history:: not pertinent. Screenin:45 Abuse screen: Denies threats or abuse. Denies injuries from another. Nutritional zb screening: No deficits noted. Tuberculosis screening: No symptoms or risk factors identified. Fall Risk No fall in past 12 months (0 pts). Secondary diagnosis (15 points) impaired mobility, IV access (20 points). Ambulatory Aid- Crutches/Cane/Walker (15 pts). Gait- Impaired (20 pts.). Mental Status- Oriented to own ability (0 pts). Total Wick Fall Scale indicates High Risk Score (45 or more points). Fall prevention measures have been instituted. Side Rails Up X 2 Placed Close to Nursing Station Frequent Obs/Assessments Occuring As available patient and family educated on Fall Prevention Program and Strategies. Assessment: 10:00 General: Appears in no apparent distress. uncomfortable, Behavior is calm, cooperative, jd3 appropriate for age. Pain: Complains of pain in left knee Quality of pain is described as sharp, tender. Neuro: Level of Consciousness is awake, alert, obeys commands, Oriented to person, place, time, situation. Cardiovascular: Denies chest pain, Capillary refill < 3 seconds Patient's skin is warm and dry. Respiratory: Airway is patent Respiratory effort is even, unlabored, Respiratory pattern is regular, symmetrical, Denies cough, shortness of breath. GI: No signs and/or symptoms were reported involving the gastrointestinal system. : Reports chronic UTI. EENT: No signs and/or symptoms were reported regarding the EENT system. Derm: Skin is intact, Skin is dry, Skin is normal, Skin temperature is warm Wound noted left knee Wound is surgical wound noted to left knee that is healing. no redness or swelling noted. dressing clean and dry. Musculoskeletal: Circulation, motion, and sensation intact. Range of motion: limited in left knee. 11:23 Reassessment: Patient appears in no apparent distress at this time. No changes from jd3 previously documented assessment. Patient and/or family updated on plan of care and expected duration. Pain level reassessed. Patient is alert, oriented x 3, equal unlabored respirations, skin warm/dry/pink. 12:42 Reassessment: Patient appears in no apparent distress at this time. Patient and/or zb family updated on plan of care and expected duration. Pain level reassessed. Patient is alert, oriented x 3, equal unlabored respirations, skin warm/dry/pink. pt aox4. states that she is still experiencing pain in her left knee. left knee appears swollen and slightly bruised. surgical wound appears to be in healing stages no purulent drainage noted. C/D/I. Slight limitation on left leg. Lights dimmed and 2 diaper placed on patient per patient request. patient repositioned at this time. 13:13 Reassessment: ECP at bedside discussed. pt c/o of pain. notified ECP medication ordered.zb 13:51 Reassessment: light dimmed patient appears to be feeling better. pain decreased. zb Patient states feeling better. 15:29 Reassessment: pt c/o knee pain. notified ecp medication ordered. zb 16:30 Reassessment: Patient appears in no apparent distress at this time. No changes from zb previously documented assessment. Patient and/or family updated on plan of care and expected duration. Pain level reassessed. discussed options with patient advised patient to get in touch with pcp regarding home health or rehab. 17:50 Reassessment: Patient appears in no apparent distress at this time. No changes from zb previously documented assessment. Patient and/or family updated on plan of care and expected duration. Pain level reassessed. d/c information given. patient wheeled out. Vital Signs: 09:59 BP 138 / 84; Pulse 73; Resp 17 S; Temp 98.2(O); Pulse Ox 96% on R/A; Weight 61.23 kg jd3 (R); Height 5 ft. 5 in. (165.10 cm) (R); Pain 10/10; 12:30 BP 146 / 76; Pulse 76; Resp 16; Pulse Ox 98% on R/A; zb 13:15 BP 145 / 57; Pulse 80; Resp 16; Pulse Ox 100% on R/A; zb 13:51 BP 150 / 61; Pulse 69; Resp 18; Pulse Ox 98% on R/A; zb 14:45 BP 148 / 59; Pulse 78; Resp 16; Pulse Ox 100% on R/A; zb 15:30 BP 152 / 78; Pulse 80; Resp 18; Pulse Ox 98% on R/A; zb 16:45 BP 144 / 82; Pulse 87; Resp 16; Pulse Ox 98% on R/A; zb 17:48 BP 152 / 85; Pulse 89; Resp 18; Pulse Ox 99% on R/A; zb 09:59 Body Mass Index 22.46 (61.23 kg, 165.10 cm) jd3 ED Course: 09:52 Patient arrived in ED. ds1 09:54 Willi Doshi, RN is Primary Nurse. jd3 09:57 Triage completed. jd3 10:00 Arm band placed on. jd3 10:06 Bozena Lindsey MD is Attending Physician. ma2 10:38 Inserted saline lock: 24 gauge in left antecubital area, using aseptic technique. jd3 11:48 US Extremity Venous Unilateral Ltd In Process Unspecified. EDMS 12:45 Patient has correct armband on for positive identification. Placed in gown. Bed in low zb position. Call light in reach. Side rails up X 1. Pulse ox on. NIBP on. Door closed. Noise minimized. 12:46 XRAY Chest (1 view) In Process Unspecified. EDMS 12:46 Knee Left 3 View XRAY In Process Unspecified. EDMS 12:46 Primary Nurse role handed off by Willi Doshi, ALCIDES zb 12:46 Rekha Santoyo, ALCIDES is Primary Nurse. zb 13:27 called the [facility] automotive leasing sales representative at [phone]/ Ofe will eb page the bonbon cream warmer and either the automotive leasing sales representative will come out or call for more information. 14:08 connected Suresh Sprague from [facility] with Dr. Lindsey for patient placement eb consultation. 14:15 faxed over patient clinical's to Steph from [facility] to [phone]. eb 16:29 Suresh Sprague called to let us know that their administrative bonbon cream warmer from [facility]. denied the patient in transfer. 17:50 No provider procedures requiring assistance completed. IV discontinued, intact, zb bleeding controlled, No redness/swelling at site. Pressure dressing applied. Administered Medications: 10:40 Not Given (Physician Discretion): Fleet Enema 133 ml AK once; may repeat once jd3 11:22 Drug: morphine 4 mg Route: IVP; Site: left antecubital; jd3 12:30 Follow up: Response: Pain is decreased; RASS: Alert and Calm (0) zb 11:22 Drug: Zofran (Ondansetron) 4 mg Route: IVP; Site: left antecubital; jd3 12:30 Follow up: Response: No adverse reaction zb 13:25 Drug: Zofran (Ondansetron) 4 mg Route: IVP; Site: left antecubital; zb 14:00 Follow up: Response: No adverse reaction; Marked relief of symptoms; RASS: Alert and zb Calm (0) 13:25 Drug: morphine 4 mg {Note: RASS 0.} Route: IVP; Site: left antecubital; zb 14:00 Follow up: Response: No adverse reaction; Marked relief of symptoms; RASS: Alert and zb Calm (0) 17:10 Drug: morphine 4 mg {Note: RASS 0.} Route: IVP; Site: left antecubital; zb 17:13 Follow up: Response: No adverse reaction; No change in condition; Pain is increased; zb RASS: Alert and Calm (0) 17:11 Drug: Zofran (Ondansetron) 4 mg Route: IVP; Site: left antecubital; zb 17:13 Follow up: Response: No adverse reaction; Marked relief of symptoms zb Outcome: 13:58 Discharge ordered by MD. coreas 14:18 ER care complete, transfer ordered by MD. coreas 16:31 Discharge ordered by MD. coreas 17:50 Discharged to home via wheelchair. zb 17:50 Condition: stable 17:50 Discharge instructions given to patient, Instructed on discharge instructions, follow up and referral plans. Demonstrated understanding of instructions, follow-up care. 17:52 Patient left the ED. zb Signatures: [facility] Jenny Harris dsWilli Burdick RN RN jd3 Bozena Lindsey MD MD ma2 Catrina Munoz Zipporah, RN RN zb
--- NOTE | 2021-02-01 13:59 | EDPHYS ---
Physician Documentation [facility] Name: Tina Padron Age: 75 yrs Sex: Female : 1945 Arrival Date: 02/01/2021 Time: 09:52 Bed 20 Private MD: ED Physician Bozena Lindsey HPI: 02/01 10:34 This 75 yrs old Female presents to ER via EMS with complaints of knee pain ma2 s/p knee replacement . 10:34 The patient presents with decreased range of motion, pain. Onset: The symptoms/episode ma2 began/occurred gradually, 2 day(s) ago. Associated signs and symptoms: Pertinent negatives nausea, swelling, tingling, vomiting. Severity of symptoms: At their worst the symptoms were mild, in the emergency department the symptoms are unchanged. left knee pain for 2 days. on percocet for pain. not helping . Historical: - Allergies: 09:59 Compazine; jd3 09:59 Meclizine; jd3 - Home Meds: :59 aspirin 81 mg Oral TbEC 1 tab once daily [Active]; Azo-Standard Oral as needed jd3 [Active]; clonazepam 1 mg Oral tab 1 tab nightly [Active]; Flomax 0.4 mg Oral cp24 1 cap once daily [Active]; meclizine 25 mg Oral tab 1 tab as needed [Active]; oxycodone-acetaminophen 7.5-325 mg Oral tab 1 tab every 6 hours [Active]; pantoprazole 20 mg Oral TbEC 1 tab once daily [Active]; potassium chloride 20 mEq Oral TbER 1 tab 2 times per day [Active]; simvastatin 20 mg Oral tab 1 tab once daily [Active]; omeprazole 40 mg Oral cpDR 1 cap once daily [Active]; losartan 50 mg Oral tab 1 tab 2 times per day [Active]; Synthroid 88 mcg Oral tab 1 tab once daily [Active]; Uribel 118-10-40.8-36 mg Oral tab daily [Active]; - PMHx: 09:59 Hypothyroidism; spinal fractures; chronic uti; "shattered shoulder"; Anxiety; jd3 Hyperlipidemia; Hypertension; - Immunization history:: Adult Immunizations up to date. - Social history:: Smoking status: Patient denies any tobacco usage or history of. Patient/guardian denies using alcohol, street drugs, The patient lives. - Family history:: not pertinent. ROS: 10:34 Constitutional: Negative for fever, chills, and weight loss. ma2 10:34 All other systems are negative. Exam: 10:34 Constitutional: This is a well developed, well nourished patient who is awake, alert, ma2 and in no acute distress. Head/Face: Normocephalic, atraumatic. Eyes: Pupils equal round and reactive to light, extra-ocular motions intact. Lids and lashes normal. Conjunctiva and sclera are non-icteric and not injected. Cornea within normal limits. Periorbital areas with no swelling, redness, or edema. ENT: Nares patent. No nasal discharge, no septal abnormalities noted. Tympanic membranes are normal and external auditory canals are clear. Oropharynx with no redness, swelling, or masses, exudates, or evidence of obstruction, uvula midline. Mucous membranes moist. Neck: Trachea midline, no thyromegaly or masses palpated, and no cervical lymphadenopathy. Supple, full range of motion without nuchal rigidity, or vertebral point tenderness. No Meningismus. Chest/axilla: Normal chest wall appearance and motion. Nontender with no deformity. No lesions are appreciated. Cardiovascular: Regular rate and rhythm with a normal S1 and S2. No gallops, murmurs, or rubs. Normal PMI, no JVD. No pulse deficits. Respiratory: Lungs have equal breath sounds bilaterally, clear to auscultation and percussion. No rales, rhonchi or wheezes noted. No increased work of breathing, no retractions or nasal flaring. Abdomen/GI: Soft, non-tender, with normal bowel sounds. No distension or tympany. No guarding or rebound. No evidence of tenderness throughout. Back: No spinal tenderness. No costovertebral tenderness. Full range of motion. Skin: Warm, dry with normal turgor. Normal color with no rashes, no lesions, and no evidence of cellulitis. MS/ Extremity: left knee is mildly echymotic with limited rom, surgical wound in good order. no warmth Pulses equal, no cyanosis. Neurovascular intact. Full, normal range of motion. Neuro: Awake and alert, GCS 15, oriented to person, place, time, and situation. Cranial nerves II-XII grossly intact. Motor strength 5/5 in all extremities. Sensory grossly intact. Cerebellar exam normal. Normal gait. 10:34 Musculoskeletal/extremity: Extremities: ROM: limited passive range of motion, ma2 Circulation is intact in all extremities. Sensation intact. Compartment Syndrome exam of affected extremity: is normal. Tendon exam: DVT Exam: no tenderness, negative Homans' sign noted on exam, no appreciated bluish discoloration, no erythema, no increased warmth, swelling. Vital Signs: 09:59 BP 138 / 84; Pulse 73; Resp 17 S; Temp 98.2(O); Pulse Ox 96% on R/A; Weight 61.23 kg jd3 (R); Height 5 ft. 5 in. (165.10 cm) (R); Pain 10/10; 12:30 BP 146 / 76; Pulse 76; Resp 16; Pulse Ox 98% on R/A; zb 13:15 BP 145 / 57; Pulse 80; Resp 16; Pulse Ox 100% on R/A; zb 13:51 BP 150 / 61; Pulse 69; Resp 18; Pulse Ox 98% on R/A; zb 14:45 BP 148 / 59; Pulse 78; Resp 16; Pulse Ox 100% on R/A; zb 15:30 BP 152 / 78; Pulse 80; Resp 18; Pulse Ox 98% on R/A; zb 16:45 BP 144 / 82; Pulse 87; Resp 16; Pulse Ox 98% on R/A; zb 17:48 BP 152 / 85; Pulse 89; Resp 18; Pulse Ox 99% on R/A; zb 09:59 Body Mass Index 22.46 (61.23 kg, 165.10 cm) jd3 MDM: 10:06 Patient medically screened. ma2 13:51 Differential diagnosis: contusion, abrasion, tendonitis, knee pain s/o total knee ma2 replacement. Response to treatment: the patient's symptoms have markedly improved after treatment. ED course: knee is in good order with post surgical changes, no signs of dvt or spetic knee. patient now states she saw the orthopedics surgeon yesterday and he saw her knee nad told her that these symptoms are expected. she is taking norco at home. . 13:53 ED course: we will initiate a consult to rehab to check if they are able to take her ma for physical therapy . 13:58 Data reviewed: vital signs, nurses notes. Counseling: I had a detailed discussion with [facility] the patient and/or guardian regarding: the historical points, exam findings, and any diagnostic results supporting the discharge/admit diagnosis, the presence of at least one elevated blood pressure reading (>120/80) during this emergency department visit, the need for outpatient follow up. 14:18 ED course: patient request tranfer to a rehab center. will inititate transfer based on [facility] patient preference . 16:30 ED course: rehab center denies the request . [facility] 02/01 10:21 Order name: Basic Metabolic Panel [facility] 02/01 10:21 Order name: CBC with Diff [facility] 02/01 10:21 Order name: LFT's [facility] 02/01 10:21 Order name: Magnesium [facility] 02/01 10:21 Order name: NT PRO-BNP [facility] 02/01 10:21 Order name: PT-INR [facility] 02/01 10:21 Order name: Troponin (emerg Dept Use Only); Complete Time: 12:18 [facility] 02/01 10:21 Order name: Basic Metabolic Panel; Complete Time: 12:18 EDMS 02/01 10:21 Order name: CBC with Automated Diff; Complete Time: 12:18 EDMS 02/01 10:21 Order name: Liver (Hepatic) Function; Complete Time: 12:18 EDMS 02/01 10:21 Order name: Magnesium; Complete Time: 12:18 EDMS 02/01 10:21 Order name: NT PRO-BNP; Complete Time: 12:18 EDMS 02/01 10:21 Order name: Protime (+INR); Complete Time: 11:47 EDMS 02/01 10:55 Order name: CRP [facility] 02/01 10:21 Order name: XRAY Chest (1 view); Complete Time: 13:23 [facility] 02/01 10:21 Order name: US Extremity Venous Unilateral Ltd; Complete Time: 13:23 [facility] 02/01 10:21 Order name: Knee Left 3 View XRAY; Complete Time: 13:23 [facility] 02/01 10:55 Order name: ESR [facility] 02/01 10:55 Order name: COVID-19 : Document "Date of Symptom Onset" if Symptomatic. [facility] 02/01 10:56 Order name: C-Reactive Protein; Complete Time: 11:47 EDMS 02/01 10:56 Order name: Sedimentation Rate, Sumeetergren; Complete Time: 12:18 EDMS 02/01 12:07 Order name: CBC Smear Scan; Complete Time: 12:18 EDMS 02/01 14:52 Order name: SARS-COV-2 RT PCR; Complete Time: 16:06 EDMS 02/01 10:21 Order name: EKG; Complete Time: 10:21 ma2 02/01 10:21 Order name: Cardiac monitoring; Complete Time: 10:25 ma2 02/01 10:21 Order name: EKG - Nurse/Tech; Complete Time: 11:22 ma2 02/01 10:21 Order name: IV Saline Lock; Complete Time: 10:38 ma2 02/01 10:21 Order name: Labs collected and sent; Complete Time: 11:23 ma2 02/01 10:21 Order name: O2 Per Protocol; Complete Time: 10:25 ma2 02/01 10:21 Order name: O2 Sat Monitoring; Complete Time: 10:25 ma2 Administered Medications: 10:40 Not Given (Physician Discretion): Fleet Enema 133 ml OK once; may repeat once jd3 11:22 Drug: morphine 4 mg Route: IVP; Site: left antecubital; jd3 12:30 Follow up: Response: Pain is decreased; RASS: Alert and Calm (0) zb 11:22 Drug: Zofran (Ondansetron) 4 mg Route: IVP; Site: left antecubital; jd3 12:30 Follow up: Response: No adverse reaction zb 13:25 Drug: Zofran (Ondansetron) 4 mg Route: IVP; Site: left antecubital; zb 14:00 Follow up: Response: No adverse reaction; Marked relief of symptoms; RASS: Alert and zb Calm (0) 13:25 Drug: morphine 4 mg {Note: RASS 0.} Route: IVP; Site: left antecubital; zb 14:00 Follow up: Response: No adverse reaction; Marked relief of symptoms; RASS: Alert and zb Calm (0) 17:10 Drug: morphine 4 mg {Note: RASS 0.} Route: IVP; Site: left antecubital; zb 17:13 Follow up: Response: No adverse reaction; No change in condition; Pain is increased; zb RASS: Alert and Calm (0) 17:11 Drug: Zofran (Ondansetron) 4 mg Route: IVP; Site: left antecubital; zb 17:13 Follow up: Response: No adverse reaction; Marked relief of symptoms zb Disposition: 02/01/21 16:31 Discharged to Home. Impression: Pain in left knee. - Condition is Stable. - Discharge Instructions: Knee Pain. - Medication Reconciliation Form, Thank You Letter, Antibiotic Education, Prescription Opioid Use form. - Follow up: Private Physician; When: Tomorrow; Reason: If symptoms return, Continuance of care. Signatures: Dispatcher [employer] [facility] Benedict Matta, SLITTING MACHINE OPERATOR HELPER-C SLITTING MACHINE OPERATOR HELPER-Cla1 Willi Doshi RN RN jd3 Alzahri, Mohammad, MD MD ma2 Brown, Zipporah, RN RN zb Corrections: (The following items were deleted from the chart) 14:06 13:58 02/01/2021 13:58 Discharged to Home. Impression: Pain in left knee. Condition is ma2 Stable. Forms are Medication Reconciliation Form, Thank You Letter, Antibiotic Education, Prescription Opioid Use. Follow up: Private Physician; When: Tomorrow; Reason: If symptoms return, Continuance of care. [facility] 14:11 10:56 CORONAVIRUS ordered. [facility] 14:17 14:06 02/01/2021 13:58 Discharged to Home. Impression: Pain in left knee; Acute ma2 bronchitis; Anemia in chronic diseases classified elsewhere. Condition is Stable. Discharge Instructions: Knee Pain, [id number]. Forms are Medication Reconciliation Form, Thank You Letter, Antibiotic Education, Prescription Opioid Use. Follow up: Private Physician; When: Tomorrow; Reason: If symptoms return, Continuance of care. ma2 16:30 14:18 02/01/2021 14:18 Transfer ordered to Other Acute Care Facility. Diagnosis is Pain ma2 in left knee - s/p total knee replacement ; Acute bronchitis; Anemia in chronic diseases classified elsewhere. Reason for transfer: Higher level of care. Accepting physician is Suresh. Condition is Stable. Problem is new. Symptoms are unchanged. ma2 17:52 16:31 02/01/2021 16:31 Discharged to Home. Impression: Pain in left knee. Condition is zb Stable. Forms are Medication Reconciliation Form, Thank You Letter, Antibiotic Education, Prescription Opioid Use. Follow up: Private Physician; When: Tomorrow; Reason: If symptoms return, Continuance of care. ma2
[2021-02-01 18:12] VITALS: TEMP 98.2
[2021-02-01 18:16] VITALS: BP 150/61; O2SAT 98
--- NOTE | 2021-02-02 08:57 | EKG ---
Test Date: 2021-02-01 Test Time: 11:19:12 Senior Portfolio Analyst: THALIA MEASUREMENT RESULTS: Intervals: Rate: 65 OR: 186 QRSD: 76 QT: 428 QTc: 445 [place]: P: 59 OR: 186 QRS: 13 T: 45 INTERPRETIVE STATEMENTS: Normal sinus rhythm Cannot rule out Anterior infarct, age undetermined Abnormal ECG Compared to ECG 11/21/2020 00:17:50 Myocardial infarct finding now present Sinus bradycardia no longer present ST (T wave) deviation no longer present Electronically Signed On 02-02-21 08:55:22 CDT by Diaz Ramsay
== END 2021-02-01 17:52 | disposition home or self-care (01) ==
LOC: ER 09:47
DX: M25.562 Pain in left knee (principal); Z96.652 Presence of left artificial knee joint; I10 Essential (primary) hypertension; F41.9 Anxiety disorder, unspecified; E03.9 Hypothyroidism, unspecified; E78.5 Hyperlipidemia, unspecified; Z20.822 Contact with and (suspected) exposure to COVID-19; Z79.82 Long term (current) use of aspirin; Z88.8 Allergy status to other drugs, medicaments and biological substances
CPT/HCPCS: 93005; 85025; 80048; 36415; 83735; 85610; 80076; 85652; 84484; 83880; 86140; 71045; 73562; 93971; 96375; 96374; 99284; U0003; J2405 ×3

== ENCOUNTER 2021-02-21 10:25 | Inpatient (IN) | payer OTHER, BC ==
--- NOTE | 2021-02-21 11:33 | RAD REPORT ---
EXAM DESCRIPTION: RAD - Chest Single View - 02/21/2021 11:09 am CLINICAL HISTORY: COUGH Chest pain. COMPARISON: Chest Single View dated 02/01/2021; Chest Single View dated 11/21/2020; Chest Single View d ated 11/20/2020; Chest Single View dated 08/15/2020 FINDINGS: Portable technique limits examination quality. The lungs are grossly clear. The heart is normal in size. No displaced fractures.Old traumatic change s in the region of the left shoulder noted. IMPRESSION: No acute intrathoracic process suspected.
[2021-02-21 11:49] LABS: Absolute Lymphocytes (CBC) 0.5 K/uL (0.7-4.9); Basophils % 0.7 % (0-1.3); Hematocrit 34.4 % (36.0-45.0); MPV 8.3 fL (7.6-11.3); RBC Red Blood Cell Count 3.77 M/uL (3.86-4.86)
[2021-02-21 11:51] LABS: Protime INR 1.03
[2021-02-21 12:00] LABS: ALT/SGPT 10 U/L (12-78); AST/SGOT 13 U/L (15-37); Albumin 2.8 g/dL (3.4-5.0); Alkaline Phosphatase 104 U/L (45-117); BUN Blood Urea Nitrogen 12 mg/dL (7-18); Bicarbonate 24 mmol/L (21-32); Bilirubin Direct 0.1 mg/dL (0-0.2); Bilirubin Total 0.3 mg/dL (0.2-1.0); Glucose Level 72 mg/dL (74-106); Lipase 32 U/L (73-393); Magnesium 1.8 mg/dL (1.8-2.4); NT PRO-BNP 510 pg/mL (<125); Potassium 4.3 mmol/L (3.5-5.1); Protein, Total 5.7 g/dL (6.4-8.2); Sodium Level 139 mmol/L (136-145); Troponin (Emerg Dept Use Only) < 0.02 ng/mL (0.0-0.045)
[2021-02-21 12:13] LABS: Urine Blood 2+ (Negative); Urine Glucose Negative (Negative); Urine Protein 1+ (Negative); Urine Specific Gravity >=1.030 (1.005-1.030)
--- NOTE | 2021-02-21 12:22 | ER ---
Nurse's Notes [facility] Name: Tina Padron Age: 75 yrs Sex: Female : 1945 Arrival Date: 02/21/2021 Time: 10:33 Bed 8 Private MD: Diagnosis: Anorexia;Volume depletion;Hypoglycemia, unspecified;Urinary tract infection, site not specified;Weakness Presentation: 02/21 10:38 Chief complaint: EMS states: called out because pt is not eating as much. Recent left sv knee surgery 5 weeks ago. Coronavirus screen: Client denies travel out of the [place] in the last 14 days. At this time, the client does not indicate any symptoms associated with coronavirus-19. Ebola Screen: No symptoms or risks identified at this time. Risk Assessment: Do you want to hurt yourself or someone else? Patient reports no desire to harm self or others. 10:38 Method Of Arrival: EMS: [facility] sv 10:38 Initial Sepsis Screen: Does the patient meet any 2 criteria? No. Patient's initial sv sepsis screen is negative. Does the patient have a suspected source of infection? No. Patient's initial sepsis screen is negative. Onset of symptoms was February 21, 2021. 10:38 Acuity: TYLOR 4 sv Triage Assessment: 10:40 General: Appears in no apparent distress. uncomfortable, slender, Behavior is sv cooperative, appropriate for age. Pain: Complains of pain in left knee Pain currently is 7 out of 10 on a pain scale. Neuro: Level of Consciousness is awake, alert, obeys commands, Oriented to person, place, time, situation. Cardiovascular: Patient's skin is warm and dry. Pulses are palpable in right radial artery, right dorsalis pedis artery, left radial artery and left dorsalis pedis artery. Respiratory: Airway is patent Respiratory effort is even, unlabored, Respiratory pattern is regular, symmetrical. Derm: Skin is pink, warm \\T\\ dry. recent left knee surgery. Historical: - Allergies: 10:40 Compazine; sv 10:40 Meclizine; sv - PMHx: 10:40 "shattered shoulder"; Anxiety; Hypertension; Hyperlipidemia; chronic uti; sv Hypothyroidism; spinal fractures; - Immunization history:: Adult Immunizations up to date. - Social history:: Smoking status: Patient denies any tobacco usage or history of. Screenin:40 Abuse screen: Denies threats or abuse. Denies injuries from another. Nutritional sv screening: No deficits noted. Tuberculosis screening: No symptoms or risk factors identified. Fall Risk No fall in past 12 months (0 pts). No secondary diagnosis (0 pts). No IV (0 pts). Ambulatory Aid- None/Bed Rest/Nurse Assist (0 pts). Gait- Normal/Bed Rest/Wheelchair (0 pts) Mental Status- Oriented to own ability (0 pts). Total Wick Fall Scale indicates No Risk (0-24 pts). Assessment: 11:24 Reassessment: Patient appears in no apparent distress at this time. No changes from sv previously documented assessment. 12:40 Reassessment: Patient appears in no apparent distress at this time. No changes from sv previously documented assessment. Patient and/or family updated on plan of care and expected duration. Pain level reassessed. Patient is alert, oriented x 3, equal unlabored respirations, skin warm/dry/pink. 13:50 Reassessment: Patient appears in no apparent distress at this time. No changes from sv previously documented assessment. Patient and/or family updated on plan of care and expected duration. Pain level reassessed. Patient is alert, oriented x 3, equal unlabored respirations, skin warm/dry/pink. 16:00 Reassessment: Patient appears in no apparent distress at this time. No changes from sv previously documented assessment. Patient and/or family updated on plan of care and expected duration. Pain level reassessed. Patient is alert, oriented x 3, equal unlabored respirations, skin warm/dry/pink. 16:57 Reassessment: Attempted to call report, nurse unavailable. sv 16:58 Reassessment: Patient appears in no apparent distress at this time. No changes from sv previously documented assessment. Pt cleaned of urinary incontinence. Vital Signs: 10:38 BP 136 / 61; Pulse 72; Resp 16; Temp 98; Pulse Ox 97% ; sv 11:25 BP 123 / 48; Pulse 74; Resp 16; Pulse Ox 98% ; sv 13:37 BP 155 / 55; Pulse 64; Resp 14; Pulse Ox 98% ; sv 14:15 BP 162 / 53; Pulse 65; Resp 14; Pulse Ox 99% ; sv 15:00 BP 162 / 52; Pulse 59; Resp 12; Pulse Ox 99% ; sv 15:45 BP 149 / 48; Pulse 59; Resp 15; Pulse Ox 95% ; sv 16:30 BP 149 / 47; Pulse 60; Resp 12; Pulse Ox 97% ; sv 17:30 BP 146 / 86; Pulse 61; Resp 15; Pulse Ox 99% on R/A; hb ED Course: 10:33 Patient arrived in ED. hb 10:38 Ximena Tidwell, RN is Primary Nurse. sv 10:39 Arm band placed on. sv 10:40 Patient has correct armband on for positive identification. Bed in low position. Call sv light in reach. Side rails up X2. Adult w/ patient. Pulse ox on. NIBP on. Door closed. Warm blanket given. Pillow given. Head of bed elevated. 10:42 Mateo Fox MD is Attending Physician. alec 10:45 Triage completed. sv 10:55 Art Padron (patient's ) is leaving/ states he lives five minutes away and can eb comeback at any time. His cell is [phone]/. 11:10 Missed attempt(s): 24 gauge in left hand. Bleeding controlled, band aid applied, sv catheter tip intact. 11:11 XRAY Chest (1 view) In Process Unspecified. EDMS 11:15 Initial lab(s) drawn, by ED staff, sent to lab. Missed attempt(s): 24 gauge in right sv hand. done by Racheal MCGRATH. Bleeding controlled, band aid applied, catheter tip intact. 11:33 EKG done, by ED staff, reviewed by Mateo Fox MD. sv 12:10 Straight cath inserted, using sterile technique, 16 Fr. Specimen obtained. Returned sv cloudy urine. Patient tolerated poorly. 12:18 Knee Left 3 View XRAY In Process Unspecified. EDMS 12:20 Min Almazan is Hospitalizing Provider. alec 13:27 Inserted inserted 18 gauge power glide, 10 cm midline to L upper arm VIA ultrasound ss guidance. Pt tolerated well. Dressed with sterile dressing. 16:13 Repositioned patient. Cleaned of incontinence. mt 17:45 No provider procedures requiring assistance completed. Patient admitted, IV remains in sv place. intact. Administered Medications: 13:50 Drug: Meropenem 1 grams Route: IV; Rate: per protocol; Site: left upper arm; sv 14:54 Follow up: Response: No adverse reaction; IV Status: Completed infusion; IV Intake: sv 100ml 13:51 Drug: NS 0.9% 500 ml Route: IV; Rate: bolus; Site: left upper arm; sv 14:54 Follow up: Response: No adverse reaction; IV Status: Completed infusion; IV Intake: sv 500ml 13:51 Drug: D50W 25 ml Route: IVP; Site: left upper arm; sv 13:51 Drug: Zofran (Ondansetron) 4 mg Route: IVP; Site: left upper arm; sv 14:30 Follow up: Response: No adverse reaction hb 13:52 Drug: morphine 2 mg {Note: rass1.} Route: IVP; Site: left upper arm; sv 14:30 Follow up: Response: No adverse reaction hb 17:43 Drug: morphine 4 mg Route: IVP; Site: right antecubital; hb 17:43 Follow up: Response: Medication administered at discharge. hb 17:43 Drug: Zofran (Ondansetron) 4 mg Route: IVP; Site: right antecubital; hb 17:44 Follow up: Response: Medication administered at discharge. hb Intake: 14:54 IV: 100ml; Total: 100ml. sv 14:54 IV: 500ml; Total: 600ml. sv Outcome: 12:21 Decision to Hospitalize by Provider. alec 13:27 Instructed on the need for admit. ss 17:45 Patient left the ED. eb Signatures: Dispatcher [employer] Ximena Mcnair RN RN Mateo Fox MD MD cha Smirch, Shelby, RN RN Voileta Odonnell RN RN hb Thompson, Moriah mt Botello, Elizabeth eb Corrections: (The following items were deleted from the chart) 10:44 10:40 Door closed. Warm blanket given. Head of bed elevated. sv sv
--- NOTE | 2021-02-21 12:22 | EDPHYS ---
Physician Documentation [facility] Name: Tina Padron Age: 75 yrs Sex: Female : 1945 Arrival Date: 02/21/2021 Time: 10:33 Bed 8 Private MD: ED Physician Mateo Fox HPI: 02/21 11:36 This 75 yrs old Female presents to ER via EMS with complaints of Won't Eat. alec 11:36 The patient presents with pain, that is acute. The complaints affect the left knee. alec Historical: - Allergies: 10:40 Compazine; sv 10:40 Meclizine; sv - PMHx: 10:40 "shattered shoulder"; Anxiety; Hypertension; Hyperlipidemia; chronic uti; sv Hypothyroidism; spinal fractures; - Immunization history:: Adult Immunizations up to date. - Social history:: Smoking status: Patient denies any tobacco usage or history of. ROS: 11:37 Constitutional: Negative for fever, chills, and weight loss, Eyes: Negative for injury, alec pain, redness, and discharge, ENT: Negative for injury, pain, and discharge, Neck: Negative for injury, pain, and swelling, Cardiovascular: Negative for chest pain, palpitations, and edema, Respiratory: Negative for shortness of breath, cough, wheezing, and pleuritic chest pain, Abdomen/GI: Negative for abdominal pain, nausea, vomiting, diarrhea, and constipation, Back: Negative for injury and pain, : Negative for injury, bleeding, discharge, and swelling, Skin: Negative for injury, rash, and discoloration, Neuro: Negative for headache, weakness, numbness, tingling, and seizure, Psych: Negative for depression, anxiety, suicide ideation, homicidal ideation, and hallucinations, Allergy/Immunology: Negative for hives, rash, and allergies, Endocrine: Negative for neck swelling, polydipsia, polyuria, polyphagia, and marked weight changes, Hematologic/Lymphatic: Negative for swollen nodes, abnormal bleeding, and unusual bruising. 11:37 MS/extremity: Positive for pain, of the left knee. Exam: 11:37 Constitutional: This is a well developed, well nourished patient who is awake, alert, alec and in no acute distress. Head/Face: Normocephalic, atraumatic. Eyes: Pupils equal round and reactive to light, extra-ocular motions intact. Lids and lashes normal. Conjunctiva and sclera are non-icteric and not injected. Cornea within normal limits. Periorbital areas with no swelling, redness, or edema. ENT: Nares patent. No nasal discharge, no septal abnormalities noted. Tympanic membranes are normal and external auditory canals are clear. Oropharynx with no redness, swelling, or masses, exudates, or evidence of obstruction, uvula midline. Mucous membranes moist. Neck: Trachea midline, no thyromegaly or masses palpated, and no cervical lymphadenopathy. Supple, full range of motion without nuchal rigidity, or vertebral point tenderness. No Meningismus. Chest/axilla: Normal chest wall appearance and motion. Nontender with no deformity. No lesions are appreciated. Cardiovascular: Regular rate and rhythm with a normal S1 and S2. No gallops, murmurs, or rubs. Normal PMI, no JVD. No pulse deficits. Respiratory: Lungs have equal breath sounds bilaterally, clear to auscultation and percussion. No rales, rhonchi or wheezes noted. No increased work of breathing, no retractions or nasal flaring. Abdomen/GI: Soft, non-tender, with normal bowel sounds. No distension or tympany. No guarding or rebound. No evidence of tenderness throughout. Back: No spinal tenderness. No costovertebral tenderness. Full range of motion. Female : Normal external genitalia. Skin: Warm, dry with normal turgor. Normal color with no rashes, no lesions, and no evidence of cellulitis. Neuro: Awake and alert, GCS 15, oriented to person, place, time, and situation. Cranial nerves II-XII grossly intact. Motor strength 5/5 in all extremities. Sensory grossly intact. Cerebellar exam normal. Normal gait. Psych: Awake, alert, with orientation to person, place and time. Behavior, mood, and affect are within normal limits. 11:37 Abdomen/GI: Inspection: abdomen appears normal, Bowel sounds: normal, Palpation: Liver: no appreciated palpable abnormalities, Hernia: not appreciated. 11:37 Musculoskeletal/extremity: Extremities: grossly normal except: noted in the left knee: decreased ROM, ROM: limited active range of motion, limited passive range of motion, limited active range of motion due to pain, limited passive range of motion due to pain, Circulation is intact in all extremities. Sensation intact. Compartment Syndrome exam of affected extremity: is normal. Weight bearing: is unable to bear weight, DVT Exam: no swelling, negative Homans' sign noted on exam, no appreciated bluish discoloration, no erythema, no increased warmth, pain, tenderness. 11:39 ECG was reviewed by the Attending Physician. aelc Vital Signs: 10:38 BP 136 / 61; Pulse 72; Resp 16; Temp 98; Pulse Ox 97% ; sv 11:25 BP 123 / 48; Pulse 74; Resp 16; Pulse Ox 98% ; sv 13:37 BP 155 / 55; Pulse 64; Resp 14; Pulse Ox 98% ; sv 14:15 BP 162 / 53; Pulse 65; Resp 14; Pulse Ox 99% ; sv 15:00 BP 162 / 52; Pulse 59; Resp 12; Pulse Ox 99% ; sv 15:45 BP 149 / 48; Pulse 59; Resp 15; Pulse Ox 95% ; sv 16:30 BP 149 / 47; Pulse 60; Resp 12; Pulse Ox 97% ; sv 17:30 BP 146 / 86; Pulse 61; Resp 15; Pulse Ox 99% on R/A; hb MDM: 10:46 Patient medically screened. alec 11:40 Differential diagnosis: gastritis, pancreatitis, viral gastroenteritis, alec gastroenteritis. Data reviewed: vital signs, nurses notes, lab test result(s), EKG, radiologic studies, plain films. Data interpreted: data communications software consultant: rate is 74 beats/min, rhythm is regular, Pulse oximetry: on room air is 98 %. Test interpretation: by ED physician or midlevel provider: ECG, plain radiologic studies. Counseling: I had a detailed discussion with the patient and/or guardian regarding: the historical points, exam findings, and any diagnostic results supporting the discharge/admit diagnosis, lab results, radiology results. 02/21 10:45 Order name: Basic Metabolic Panel; Complete Time: 12: [facility] 02/21 10:45 Order name: CBC with Diff; Complete Time: 13:48 [facility] 02/21 10:45 Order name: LFT's; Complete Time: 12: [facility] 02/21 10:45 Order name: Magnesium; Complete Time: 12: alec 02/21 10:45 Order name: NT PRO-BNP; Complete Time: 12:02/21 10:45 Order name: PT-INR; Complete Time: 12: [facility] 02/21 10:45 Order name: Troponin (emerg Dept Use Only); Complete Time: 12:07 [facility] 02/21 10:45 Order name: XRAY Chest (1 view); Complete Time: 12:07 [facility] 02/21 10:45 Order name: Lipase; Complete Time: 12:07 02/21 10:45 Order name: Urine Culture 02/21 12:12 Order name: Urine Dipstick-Ancillary; Complete Time: 13:48 EDMS 02/21 13:26 Order name: SARS-COV-2 RT PCR; Complete Time: 13:48 EDMS 02/21 13:33 Order name: Manual Differential; Complete Time: 13:48 EDCA 02/21 10:45 Order name: EKG; Complete Time: 10:46 [facility] 02/21 10:45 Order name: Cardiac monitoring; Complete Time: 11:40 [facility] 02/21 10:45 Order name: EKG - Nurse/Tech; Complete Time: 11:40 [facility] 02/21 10:45 Order name: Labs collected and sent; Complete Time: 11:24 02/21 10:45 Order name: O2 Per Protocol; Complete Time: 11:24 02/21 10:45 Order name: O2 Sat Monitoring; Complete Time: 11:24 alec 02/21 11:36 Order name: Knee Left 3 View XRAY; Complete Time: 13:48 [facility] 02/21 10:45 Order name: Urine Dipstick-Ancillary (obtain specimen); Complete Time: 12:09 [facility] EC:39 Rate is 76 beats/min. Rhythm is regular. QRS [place] is Normal. NM interval is normal. QRS alec interval is normal. QT interval is normal. No Q waves. T waves are Normal. No ST changes noted. Clinical impression: Normal ECG and No evidence of ischemia. Interpreted by me. Reviewed by me. Administered Medications: 13:50 Drug: Meropenem 1 grams Route: IV; Rate: per protocol; Site: left upper arm; sv 14:54 Follow up: Response: No adverse reaction; IV Status: Completed infusion; IV Intake: sv 100ml 13:51 Drug: NS 0.9% 500 ml Route: IV; Rate: bolus; Site: left upper arm; sv 14:54 Follow up: Response: No adverse reaction; IV Status: Completed infusion; IV Intake: sv 500ml 13:51 Drug: D50W 25 ml Route: IVP; Site: left upper arm; sv 13:51 Drug: Zofran (Ondansetron) 4 mg Route: IVP; Site: left upper arm; sv 14:30 Follow up: Response: No adverse reaction hb 13:52 Drug: morphine 2 mg {Note: rass1.} Route: IVP; Site: left upper arm; sv 14:30 Follow up: Response: No adverse reaction hb 17:43 Drug: morphine 4 mg Route: IVP; Site: right antecubital; hb 17:43 Follow up: Response: Medication administered at discharge. hb 17:43 Drug: Zofran (Ondansetron) 4 mg Route: IVP; Site: right antecubital; hb 17:44 Follow up: Response: Medication administered at discharge. hb Disposition: 02/21/21 12:21 Hospitalization ordered by Min Almazan for Inpatient Admission. Preliminary diagnosis are Anorexia, Volume depletion, Hypoglycemia, unspecified, Urinary tract infection, site not specified, Weakness. - Bed requested for Telemetry/MedSurg (Inpatient). - Status is Inpatient Admission. eb - Condition is Fair. - Problem is new. - Symptoms have improved. Signatures: Dispatcher [employer] EDCA Ximena Tidwell RN RN sv Woody, Diana, RN RN dw Anderson, Corey, MD MD cha Baxter, Heather, RN RN Catrina Munoz Corrections: (The following items were deleted from the chart) 12:43 12:18 CORONAVIRUS+MR.LAB.BRZ ordered. EDCA EDCA 16:03 12:21 Hospitalization Ordered by Min Almazan for Inpatient Admission. Preliminary diagnosis is Anorexia; Volume depletion; Hypoglycemia, unspecified; Urinary tract infection, site not specified; Weakness. Bed requested for Telemetry/MedSurg (Inpatient). Status is Inpatient Admission. Condition is Fair. Problem is new. Symptoms have improved. alec 17:45 16:03 02/21/2021 12:21 Hospitalization Ordered by Min Almazan for Inpatient eb Admission. Preliminary diagnosis is Anorexia; Volume depletion; Hypoglycemia, unspecified; Urinary tract infection, site not specified; Weakness. Bed requested for Telemetry/MedSurg (Inpatient). Status is Inpatient Admission. Condition is Fair. Problem is new. Symptoms have improved. connie
--- NOTE | 2021-02-21 12:37 | RAD REPORT ---
EXAM DESCRIPTION: RAD - Knee Left 3 View - 02/21/2021 12:21 pm CLINICAL HISTORY: PAIN COMPARISON: Knee Left 3 View dated 02/01/2021; Knee Left 3 View dated 11/20/2020 FINDINGS: Left total knee arthroplasty is seen. No hardware loosening or infection findings. Mild so ft tissue swelling about the patella. Small joint effusion.
[2021-02-21] MEDS ORDERED: MORPHINE 2 MG/ML SYR ONE (12:52)
[2021-02-21] MEDS ORDERED: ONDANSETRON 4 MG/2 ML VIAL ONE ×2 (12:53→17:58)
[2021-02-21] MEDS ORDERED: NA CHLORIDE 0.9% 500 ML ONE (12:53)
[2021-02-21] MEDS ORDERED: Meropenem 1 GM/100 ML BAG ONE (12:59)
[2021-02-21] MEDS ORDERED: D50W 25 GM/50 ML SYRINGE IV ONE (12:59)
[2021-02-21 13:32] LABS: Blood Morphology Comment NOT SEEN (NOT SEEN); Platelet Estimate ADEQ
--- NOTE | 2021-02-21 13:56 | P.HP ---
Certification for Inpatient Patient admitted to: Observation With expected LOS: <2 Midnights Practitioner: I am a practitioner with admitting privileges, knowledge of patient current condition, hospital course, and medical plan of care. Services: Services provided to patient in accordance with Admission requirements found in Title 42 Section 412.3 of the Code of Federal Regulations Patient History Date of Service: 02/21/21 Reason for admission: Generalize weakness History of Present Illness: 75-year-old woman with a history of chronic recurrent UTI, recent left knee replacement surgery, hypertension and B-cell lymphoma was brought to the emergency department due to decreased oral intake and generalized weakness. Workup in the emergency department reveal borderline low blood sugar of 70. No BAILEY, no leukocytosis. UA suggest the presence of UTI. No evidence of sepsis. Patient intermittently agitated and yells which is chronic. She is hospitalized for further management. Allergies prochlorperazine [From Compazine] Allergy (Intermediate, Verified 11/21/20 04:26) PYSCHOSIS Prochlorperazine Maleate Allergy (Uncoded 04/22/18 15:25) Unknown Home Medications: ALPRAZolam [Alprazolam] 2 mg PO BEDTIME 11/21/20 Levothyroxine [Synthroid*] 0.088 mg PO DAILY 11/21/20 Codeine/APAP [Tylenol W/Codeine #3 tab] 1 tab PO Q6HP PRN #30 tab 11/28/20 Ensure Enlive 237 ml PO BID #60 can 11/28/20 Metoprolol Tartrate [Lopressor*] 25 mg PO BID 6AM 6PM #60 tab 11/28/20 Trazodone [Desyrel*] 50 mg PO BEDTIME PRN PRN #30 tablet 11/28/20 clonazePAM [Klonopin*] 0.5 mg PO TID #30 tab 11/28/20 - Past Medical/Surgical History Diabetic: No -: Hypertension -: Hypothyroidism -: B-cell lymphoma -: DDD/DJD of spine -: Chronic recurrent UTI requiring long-term antibiot -: shingles ( ) -: Vertigo -: Anxiety -: spinal fractures -: Hysterectomy -: Cholecystectomy, Gastric Bypass -: Gastric torsion repair -: Right Hip surgery -: Knee surgery -: Port-A-Cath placement and removal -: Right Shoulder Sx, LISA lens replacement -: TONSILLECTOMY Psychosocial/ Personal History: The patient is originally from [place]. She moved to the area in July. She is . She has 3 children. - Family History Mother -: Heart disease, Hypertension, Diabetes, Kidney disease Father -: Heart disease, Diabetes, Other (see notes) Notes: Alzheimers - Social History Alcohol use: No CD- Drugs: No Caffeine use: No Review of Systems Other: No report of fever or chills or diarrhea or vomiting. Except as documented, all other systems reviewed and negative. Physical Examination - Physical Exam General: Alert, In no apparent distress HEENT: PERRLA, Mucous membr. moist/pink, Sclerae nonicteric Neck: JVD not distended Respiratory: Clear to auscultation bilaterally, Normal air movement Cardiovascular: No edema, Regular rate/rhythm, Normal S1 S2 Gastrointestinal: Soft and benign, Non-distended, No tenderness Musculoskeletal: No swelling, No warmth, Tenderness (Right knee) Integumentary: No rashes Neurological: Other (No focal motor deficit.) - Studies Laboratory Data (last 24 hrs) 02/21/21 11:15: PT 11.9, INR 1.03 02/21/21 11:15: WBC 7.10, Hgb 11.3 L, Hct 34.4 L, Plt Count 199 02/21/21 11:15: Sodium 139, Potassium 4.3, BUN 12, Creatinine 0.68, Glucose 72 L, Magnesium 1.8, Total Bilirubin 0.3, AST 13 L, ALT 10 L, Alkaline Phosphatase 104, Lipase 32 L Assessment and Plan - Problems (Diagnosis) (1) Decreased oral intake Current Visit: Yes Status: Acute (2) Status post left knee replacement Current Visit: Yes Status: Acute (3) UTI (urinary tract infection) Onset Date: 06/29/17 Current Visit: No Status: Acute Qualifiers: Urinary tract infection type: site unspecified Hematuria presence: without hematuria Qualified Code(s): N39.0 - Urinary tract infection, site not specified (4) Chronic pain disorder Current Visit: No Status: Chronic (5) Anxiety disorder Onset Date: 09/09/17 Current Visit: No Status: Chronic Qualifiers: Anxiety disorder type: generalized anxiety disorder (6) Hypothyroidism Onset Date: 06/29/17 Current Visit: No Status: Chronic Qualifiers: Hypothyroidism type: acquired Qualified Code(s): E03.9 - Hypothyroidism, unspecified - Plan Place under observation. IV hydration with D5 normal saline. Encouraged oral intake. Pain management as needed. IV Rocephin and follow urine culture. PT evaluation. Continue antianxiety medications. Continue synthroid. Consider on Seroquel at bedtime for agitation. - Advance Directives Does patient have a Living Will: No Does patient have a Durable POA for Healthcare: No
[2021-02-21] MEDS ORDERED: MORPHINE 4 MG/ML SYR ONE (17:58)
[2021-02-21] MEDS: D5 0.9 NS 1,000 ML IV SCH (18:43)
[2021-02-21] MEDS: METOPROLOL XL 25 MG TAB PO SCH ×2 (22:24→22:36)
[2021-02-21] MEDS: clonazePAM 1 MG TAB PO SCH ×2 (22:24→22:37)
[2021-02-21] MEDS: TRAZODONE 150 MG TAB PO SCH ×2 (22:24→22:37)
[2021-02-21] MEDS: Oxycodone HCl/Acetaminophen 1 TAB TAB PO PRN (22:42)
[2021-02-22 06:15] LABS: Absolute Lymphocytes (CBC) 0.6 K/uL (0.7-4.9); Hematocrit 31.1 % (36.0-45.0); Lymphocytes % 10.7 % (15.3-44.8); RBC Red Blood Cell Count 3.43 M/uL (3.86-4.86)
[2021-02-22] MEDS: Oxycodone HCl/Acetaminophen 1 TAB TAB PO PRN ×2 (06:32→13:46)
[2021-02-22 06:40] LABS: BUN Blood Urea Nitrogen 9 mg/dL (7-18); Bicarbonate 29 mmol/L (21-32); Glucose Level 123 mg/dL (74-106); Magnesium 1.7 mg/dL (1.8-2.4); Phosphorus 2.3 mg/dL (2.5-4.9); Potassium 3.5 mmol/L (3.5-5.1); Sodium Level 142 mmol/L (136-145)
[2021-02-22] MEDS: POTASS/SODIUM PHOSPHATE 1 PKT POWD.PACK PO SCH ×3 (07:00→08:47)
[2021-02-22] MEDS ORDERED: POTASSIUM 25 MEQ EFFERV TAB PO ONE (07:07)
[2021-02-22] MEDS ORDERED: MAGNESIUM SULFATE 1 gm IVPB 1 GM/100 ML BAG IV ONE (07:09)
[2021-02-22] MEDS: D5 0.9 NS 1,000 ML IV SCH ×3 (07:36→21:30)
[2021-02-22] MEDS: VENLAFAXINE HCL XR 75 MG CAP PO SCH (07:38)
[2021-02-22] MEDS: ENOXAPARIN 40 MG/0.4 ML SQ SCH (07:38)
[2021-02-22] MEDS: CEFTRIAXONE/SWI 1gm 1 GM/10 ML SYR IV SCH (07:38)
--- NOTE | 2021-02-22 08:17 | EKG ---
Test Date: 2021-02-21 Test Time: 11:33:33 [facility] Consultant: SV MEASUREMENT RESULTS: Intervals: Rate: 76 MN: 174 QRSD: 74 QT: 414 QTc: 465 [place]: P: 72 MN: 174 QRS: 15 T: 43 INTERPRETIVE STATEMENTS: Normal sinus rhythm Normal ECG Compared to ECG 02/01/2021 11:19:12 Myocardial infarct finding no longer present Electronically Signed On 02-22-21 08:15:35 CDT by Diaz Ramsay
[2021-02-22] MEDS: METOPROLOL XL 25 MG TAB PO SCH ×2 (08:18→21:00)
[2021-02-22] MEDS ORDERED: CEFTRIAXONE 1 GM/NS 50 ML 1 GM/50 ML BAG IV SCH (09:00)
--- NOTE | 2021-02-22 13:09 | P.PN ---
Subjective Date of Service: 02/22/21 Chief Complaint: Generalize weakness No new complain. Her oral intake remain poor. Urine culture is growing Gram negative rods. Physical Examination - Vital Signs Temperature: 98.3 F Blood Pressure: 123/58 Pulse: 60 Respirations: 18 Pulse Ox (%): 98 - Physical Exam General: In no apparent distress, Other (Awake) HEENT: Mucous membr. moist/pink, Sclerae nonicteric Neck: Supple, JVD not distended Respiratory: Clear to auscultation bilaterally, Normal air movement Cardiovascular: No edema, Regular rate/rhythm, Normal S1 S2 Gastrointestinal: Normal bowel sounds, Soft and benign, Non-distended, No tenderness Musculoskeletal: No swelling Integumentary: No rashes Neurological: Other (No focal motor deficit.) - Studies Laboratory Data (last 24 hrs) 02/22/21 05:43: Sodium 142, Potassium 3.5, BUN 9, Creatinine 0.64, Glucose 123 H, Phosphorus 2.3 L, Magnesium 1.7 L 02/22/21 05:43: WBC 5.20 D, Hgb 10.4 L, Hct 31.1 L, Plt Count 197 02/21/21 11:15: WBC 7.10, Hgb 11.3 L, Hct 34.4 L, Plt Count 199 Assessment And Plan - Current Problems (Diagnosis) (1) Decreased oral intake Current Visit: Yes Status: Acute (2) Status post left knee replacement Current Visit: Yes Status: Acute (3) UTI (urinary tract infection) Onset Date: 06/29/17 Current Visit: No Status: Acute Qualifiers: Urinary tract infection type: site unspecified Hematuria presence: without hematuria Qualified Code(s): N39.0 - Urinary tract infection, site not specifi ed (4) Chronic pain disorder Current Visit: No Status: Chronic (5) Anxiety disorder Onset Date: 09/09/17 Current Visit: No Status: Chronic Qualifiers: Anxiety disorder type: generalized anxiety disorder (6) Hypothyroidism Onset Date: 06/29/17 Current Visit: No Status: Chronic Qualifiers: Hypothyroidism type: acquired Qualified Code(s): E03.9 - Hypothyroidism, unspecified - Plan Continue IV hydration with D5 normal saline. Encouraged oral intake. Pain management as needed. Continue IV Rocephin. Follow urine culture for organism identification and sensitivity PT. Continue home medications for anxiety Continue synthroid. Consider Seroquel at bedtime for agitation.
[2021-02-22] MEDS: POLYETHYL GLY 3350 17 GM/DOSE PO PRN (17:29)
[2021-02-22] MEDS: clonazePAM 1 MG TAB PO SCH (21:00)
[2021-02-23] MEDS: TRAZODONE 150 MG TAB PO SCH ×2 (00:30→21:51)
[2021-02-23] MEDS: Oxycodone HCl/Acetaminophen 1 TAB TAB PO PRN ×3 (01:30→14:04)
[2021-02-23 06:57] LABS: BUN Blood Urea Nitrogen 5 mg/dL (7-18); Bicarbonate 28 mmol/L (21-32); Glucose Level 111 mg/dL (74-106); Magnesium 1.8 mg/dL (1.8-2.4); Potassium 3.3 mmol/L (3.5-5.1); Sodium Level 143 mmol/L (136-145)
[2021-02-23] MEDS: POTASS/SODIUM PHOSPHATE 1 PKT POWD.PACK PO SCH ×3 (07:00→08:50)
[2021-02-23] MEDS ORDERED: MAGNESIUM SULFATE 1 gm IVPB 1 GM/100 ML BAG IV ONE (08:00)
[2021-02-23] MEDS: ENOXAPARIN 40 MG/0.4 ML SQ SCH (08:49)
[2021-02-23] MEDS: VENLAFAXINE HCL XR 75 MG CAP PO SCH (08:49)
[2021-02-23] MEDS: CEFTRIAXONE/SWI 1gm 1 GM/10 ML SYR IV SCH (08:50)
[2021-02-23] MEDS ORDERED: POTASSIUM 25 MEQ EFFERV TAB PO ONE (08:56)
[2021-02-23] MEDS: METOPROLOL XL 25 MG TAB PO SCH ×2 (09:00→23:31)
[2021-02-23] MEDS: D5 0.9 NS 1,000 ML IV SCH (09:04)
[2021-02-23] MEDS: POLYETHYL GLY 3350 17 GM/DOSE PO PRN (09:05)
[2021-02-23] MEDS: ONDANSETRON 4 MG/2 ML VIAL IV PRN ×2 (09:56→23:41)
[2021-02-23] MEDS: Meropenem 1 GM/100 ML BAG IV SCH ×2 (11:00→16:00)
--- NOTE | 2021-02-23 11:07 | P.PN ---
Subjective Date of Service: 02/23/21 Chief Complaint: Generalize weakness Patient has no new complain. She is occasionally agitated. Urine culture is growing ESBL Klebsiella. No fever since presentation. Physical Examination - Vital Signs Temperature: 98.5 F Blood Pressure: 108/49 Pulse: 57 Respirations: 16 Pulse Ox (%): 97 - Physical Exam General: Alert, In no apparent distress, Oriented x2, Other HEENT: Mucous membr. moist/pink Respiratory: Clear to auscultation bilaterally, Normal air movement Cardiovascular: No edema, Regular rate/rhythm, Normal S1 S2 Gastrointestinal: Soft and benign, Non-distended, No tenderness Musculoskeletal: No swelling Integumentary: No rashes, No erythema Neurological: Normal strength at 5/5 x4 extr - Studies Microbiology Data (last 24 hrs): 02/21/21 12:10 Catheterized Urine [place] Count - Final >100,000 CFU/ML. 02/21/21 12:10 Catheterized Urine - Final Klebsiella Pneumoniae Esbl Assessment And Plan - Current Problems (Diagnosis) (1) Decreased oral intake Current Visit: Yes Status: Acute (2) Status post left knee replacement Current Visit: Yes Status: Acute (3) UTI (urinary tract infection) Onset Date: 06/29/17 Current Visit: No Status: Acute Qualifiers: Urinary tract infection type: site unspecified Hematuria presence: without hematuria Qualified Code(s): N39.0 - Urinary tract infection, site not specified (4) Chronic pain disorder Current Visit: No Status: Chronic (5) Anxiety disorder Onset Date: 09/09/17 Current Visit: No Status: Chronic Qualifiers: Anxiety disorder type: generalized anxiety disorder (6) Hypothyroidism Onset Date: 06/29/17 Current Visit: No Status: Chronic Qualifiers: Hypothyroidism type: acquired Qualified Code(s): E03.9 - Hypothyroidism, unspecified - Plan Continue IV hydration with D5 normal saline. Encouraged oral intake. Pain management as needed. Antibiotics changed to IV meropenem given ESBL Klebsiella. Continue PT. Continue home medications for anxiety Continue synthroid. Considering Seroquel at bedtime for agitation.
[2021-02-23] MEDS: clonazePAM 1 MG TAB PO SCH (23:31)
[2021-02-24] MEDS: D5 0.9 NS 1,000 ML IV SCH ×3 (00:59→20:50)
[2021-02-24] MEDS: Meropenem 1 GM/100 ML BAG IV SCH ×3 (00:59→17:00)
[2021-02-24] MEDS: Oxycodone HCl/Acetaminophen 1 TAB TAB PO PRN ×3 (05:15→18:33)
[2021-02-24] MEDS: ONDANSETRON 4 MG/2 ML VIAL IV PRN ×3 (05:19→18:33)
[2021-02-24 06:05] LABS: Absolute Lymphocytes (CBC) 0.6 K/uL (0.7-4.9); Basophils % 0.6 % (0-1.3); Hematocrit 31.4 % (36.0-45.0); Lymphocytes % 7.5 % (15.3-44.8); MPV 8.1 fL (7.6-11.3); RBC Red Blood Cell Count 3.47 M/uL (3.86-4.86)
[2021-02-24 06:14] LABS: BUN Blood Urea Nitrogen 5 mg/dL (7-18); Bicarbonate 27 mmol/L (21-32); Glucose Level 111 mg/dL (74-106); Magnesium 1.8 mg/dL (1.8-2.4); Phosphorus 2.1 mg/dL (2.5-4.9); Potassium 4.1 mmol/L (3.5-5.1); Sodium Level 141 mmol/L (136-145)
[2021-02-24] MEDS ORDERED: MAGNESIUM SULFATE 1 gm IVPB 1 GM/100 ML BAG IV ONE (07:30)
[2021-02-24] MEDS ORDERED: BISACODYL 10 MG RECTAL SUPP PR ONE (08:40)
[2021-02-24] MEDS: POTASS/SODIUM PHOSPHATE 1 PKT POWD.PACK PO SCH ×3 (08:42→11:26)
[2021-02-24] MEDS: METOPROLOL XL 25 MG TAB PO SCH ×2 (09:00→20:44)
[2021-02-24] MEDS: ENOXAPARIN 40 MG/0.4 ML SQ SCH (09:42)
[2021-02-24] MEDS: VENLAFAXINE HCL XR 75 MG CAP PO SCH (09:43)
--- NOTE | 2021-02-24 10:09 | RAD REPORT ---
EXAM DESCRIPTION: RAD - Abdomen 1 View (KUB) - 02/24/2021 9:56 am CLINICAL HISTORY: R/O Obstruction COMPARISON: Abdomen 1 View (KUB) dated 09/07/2016; Pelvis dated 11/20/2020 FINDINGS: Multiple distended to mildly dilated small bowel loops are present no dilatation of the la rge bowel. No free air or pneumatosis. Pattern favors ileus over obstruction. Cholecystectomy clips a re present. Neurostimulator device is seen overlying the pelvis. Prominent lumbar spine degenerative changes are present. IMPRESSION: Patient has prominent small bowel loops with a pattern favoring ileus over obstruction. No free air, pneumatosis or emergent finding.
--- NOTE | 2021-02-24 10:42 | P.PN ---
Subjective Date of Service: 02/24/21 Chief Complaint: Generalize weakness Subjective: Worsening (pt reports nausea/dry heaving overnight, no BM in >1 week, unsure if passing flatus, concerned she is blocked up. tried laxative yesterday with no change) Review of Systems 10-point ROS is otherwise unremarkable Physical Examination - Vital Signs Temperature: 98.0 F Blood Pressure: 113/72 Pulse: 51 Respirations: 15 Pulse Ox (%): 97 - Studies Microbiology Data (last 24 hrs): 02/21/21 12:10 Catheterized Urine [place] Count - Final >100,000 CFU/ML. 02/21/21 12:10 Catheterized Urine - Final Klebsiella Pneumoniae Esbl Assessment & Plan Physician Review Additional Text: Physical Exam General: Alert, mild discomfort, AAOx3 HEENT: Mucous membr. moist/pink Respiratory: Clear to auscultation bilaterally, Normal air movement Cardiovascular: No edema, Regular rate/rhythm, Normal S1 S2 Gastrointestinal: Soft and benign, Non-distended, No tenderness Musculoskeletal: No swelling Integumentary: No rashes, No erythema Problem List UTI, cystitis Decreased oral intake Status post left knee replacement Generalized anxiety disorder chronic pain disorder hypothyroidism patient reports nausea and dry heaving, reports no BM in >1 week, no improvement with laxatives yesterday will obtain KUB, NPO with sips allowed; continue IVF Pain management as needed. Antibiotics changed to IV meropenem given ESBL Klebsiella on 02/23, ID consulted Continue PT. Continue home medications for anxiety Continue synthroid. Considering Seroquel at bedtime for agitation. Time Spent Managing Pts Care (In Minutes): 35
--- NOTE | 2021-02-24 11:14 | P.PN ---
Subjective Date of Service: 02/24/21 Chief Complaint: Generalize weakness Patient seen and examined and. Tolerating antibiotics well, complaining of some left knee pain status post left knee replacement. Review of Systems 10-point ROS is otherwise unremarkable Physical Examination - Vital Signs Temperature: 98.0 F Blood Pressure: 113/72 Pulse: 51 Respirations: 15 Pulse Ox (%): 97 - Physical Exam General: In no apparent distress, Confused HEENT: Atraumatic, Normocephalic, Other Neck: 2+ carotid pulse no bruit Respiratory: Clear to auscultation bilaterally, Normal air movement, Friction rub Cardiovascular: No edema, Normal pulses, Regular rate/rhythm Capillary refill: <2 Seconds Musculoskeletal: No clubbing, No swelling, No contractures Integumentary: Other (Left knee bruising and swelling status post left knee replacement. Scabbing along the incision site.) - Studies Active Medications Acetaminophen (Acetaminophen 500 Mg Tab) 500 mg PO Q4HP PRN PRN Reason: TEMP > 100' F Clonazepam (Clonazepam 1 Mg Tab) 1 mg PO BEDTIME [facility] Last Admin: 02/23/21 23:31 Dose: 1 mg Documented by: Enoxaparin Sodium (Enoxaparin 40 Mg/0.4 Ml) 40 mg SQ DAILY [facility] Last Admin: 02/24/21 09:42 Dose: 40 mg Documented by: Dextrose/Sodium Chloride (D5w Ns 1-Liter Bag) 1,000 mls @ 75 mls/hr IV .[id number] [facility] Last Admin: 02/24/21 00:59 Dose: 1,000 mls Documented by: Meropenem (Merrem 1 Gm/100 Ml Ns Ivpb) 1 gm in 100 mls @ 100 mls/hr IV Q8HR [facility] Last Admin: 02/24/21 09:41 Dose: 100 mls Documented by: Metoprolol Succinate (Metoprolol Xl 25 Mg Tab) 25 mg PO BID [facility] Last Admin: 02/24/21 09:00 Dose: Not Given Documented by: Ondansetron HCl (Ondansetron 4 Mg/2 Ml Vial) 4 mg IV Q6HP PRN PRN Reason: NAUSEA / VOMITING Last Admin: 02/24/21 05:19 Dose: 4 mg Documented by: Oxycodone/Acetaminophen (Oxycodone Hcl/Acetaminophen 1 Tab Tab) 1 tab PO Q6H PRN PRN Reason: Pain scale 5-7 (Moderate) Last Admin: 02/24/21 05:15 Dose: 1 tab Documented by: Polyethylene Glycol (Polyethyl Gly 3350 17 Gm/Dose) 17 gm PO DAILYPRN PRN PRN Reason: CONSTIPATION Last Admin: 02/23/21 09:05 Dose: 17 gm Documented by: Sodium Chloride (Flush Normal Saline 10 Ml) 10 ml IV BID [facility] Last Admin: 02/24/21 09:43 Dose: 10 ml Documented by: Trazodone HCl (Trazodone 150 Mg Tab) 150 mg PO BEDTIME [facility] Last Admin: 02/23/21 21:51 Dose: 150 mg Documented by: Venlafaxine HCl (Venlafaxine Hcl Xr 75 Mg Cap) 75 mg PO DAILY [facility] Last Admin: 02/24/21 09:43 Dose: 75 mg Documented by: Temp Pulse Resp BP Pulse Ox 98.0 F 51 15 113/72 97 02/24/21 10:41 02/24/21 10:41 02/24/21 10:41 02/24/21 10:41 02/24/21 10:41 Microbiology Data (last 24 hrs): 02/21/21 12:10 Catheterized Urine [place] Count - Final >100,000 CFU/ML. 02/21/21 12:10 Catheterized Urine - Final Klebsiella Pneumoniae Esbl Assessment And Plan - Plan Antibiotics: merum start: 02/23 stop: 03/10 Assessment: 1. ESBL Klebsiella UTI 2. poor oral intake 3. s/p left knee replacment Plan: 1. Continue meropenem for any antibiotic duration 2 weeks. Patient has frequent ESBL urinary tract infections common patient may have colonization. Recommend outpatient follow up with Urology. 2. Monitor albumin level. -medical management per primary team -continue to monitor BMP and CBC -continue to monitor for signs of infection. Plan of care discussed with Dr. Coleman Thank you for consultation.
[2021-02-24] MEDS: TRAZODONE 150 MG TAB PO SCH (20:44)
[2021-02-24] MEDS: clonazePAM 1 MG TAB PO SCH (20:44)
[2021-02-25] MEDS: D5 0.9 NS 1,000 ML IV SCH ×4 (00:30→19:41)
[2021-02-25] MEDS: Meropenem 1 GM/100 ML BAG IV SCH ×4 (00:31→19:34)
[2021-02-25] MEDS: ONDANSETRON 4 MG/2 ML VIAL IV PRN ×3 (04:56→16:36)
[2021-02-25] MEDS: Oxycodone HCl/Acetaminophen 1 TAB TAB PO PRN ×3 (05:00→16:30)
[2021-02-25 05:54] LABS: Absolute Lymphocytes (CBC) 0.4 K/uL (0.7-4.9); Basophils % 0.5 % (0-1.3); Hematocrit 29.7 % (36.0-45.0); MPV 8.3 fL (7.6-11.3); RBC Red Blood Cell Count 3.31 M/uL (3.86-4.86)
[2021-02-25] MEDS ORDERED: MORPHINE 2 MG/ML SYR IV ONE (06:00)
[2021-02-25 06:09] LABS: BUN Blood Urea Nitrogen 7 mg/dL (7-18); Bicarbonate 32 mmol/L (21-32); Glucose Level 107 mg/dL (74-106); Phosphorus 2.4 mg/dL (2.5-4.9); Potassium 3.7 mmol/L (3.5-5.1); Sodium Level 143 mmol/L (136-145)
[2021-02-25] MEDS: POTASSIUM PHOS IN 0.9 % NACL 15 MMOL/250 ML BAG IV ONE ×2 (09:00→10:38)
[2021-02-25] MEDS: VENLAFAXINE HCL XR 75 MG CAP PO SCH (09:01)
[2021-02-25] MEDS: METOPROLOL XL 25 MG TAB PO SCH ×2 (09:01→21:00)
[2021-02-25] MEDS: ENOXAPARIN 40 MG/0.4 ML SQ SCH (09:04)
--- NOTE | 2021-02-25 09:05 | RAD REPORT ---
EXAM DESCRIPTION: RAD - Abdomen 1 View (KUB) - 02/25/2021 8:43 am CLINICAL HISTORY: Abdomen pain. FINDINGS: Air is present within a few loops of nondilated small bowel. Air is present within the colon. This does not have the appearance of an obstruction. Neurostimulator device overlies the pelvis
--- NOTE | 2021-02-25 13:14 | RAD REPORT ---
EXAM DESCRIPTION: CT - Knee Left Wo Con - 02/25/2021 11:59 am CLINICAL HISTORY: Left knee swelling COMPARISON: X-ray February 21 TECHNIQUE: Computed axial tomography left obtained All CT scans are performed using dose optimization technique as appropriate and may include automated exposure control or mA/KV adjustment according to patient size. FINDINGS: Postsurgical changes of a left knee arthroplasty are seen. The prosthesis and screw are in good position. There is no evidence of loosening. No fracture or dislocation noted. A large joint effusion is not seen. Edema is present within subcutaneous tissues. IMPRESSION: Edema within the subcutaneous tissues could indicate a cellulitis or venous stasis.
--- NOTE | 2021-02-25 14:16 | P.PN ---
Subjective Date of Service: 02/25/21 Chief Complaint: Generalize weakness Patient seen and examined at bedside-6 awaiting PICC line placements for continuation as meropenem therapy. Pending CT of left knee. Review of Systems 10-point ROS is otherwise unremarkable Physical Examination - Vital Signs Temperature: 98.2 F Blood Pressure: 141/68 Pulse: 62 Respirations: 16 Pulse Ox (%): 97 - Studies Laboratory Last Values WBC 5.20 K/uL (4.3-10.9) D 02/22/21 05:43 RBC 3.43 M/uL (3.86-4.86) L 02/22/21 05:43 Hgb 10.4 g/dL (12.0-15.0) L 02/22/21 05:43 Hct 31.1 % (36.0-45.0) L 02/22/21 05:43 MCV 90.7 fL (80-100) 02/22/21 05:43 MCH 30.2 pg (27.0-35.0) 02/22/21 05:43 MCHC 33.3 g/dL (32.0-36.0) 02/22/21 05:43 RDW 14.7 % (12.1-15.2) 02/22/21 05:43 Plt Count 197 K/uL (152-406) 02/22/21 05:43 MPV 8.0 fL (7.6-11.3) 02/22/21 05:43 Neutrophils % 74.1 % (41.7-73.7) H 02/22/21 05:43 Lymphocytes % 10.7 % (15.3-44.8) L 02/22/21 05:43 Monocytes % 11.2 % (3.3-12.3) 02/22/21 05:43 Eosinophils % 3.0 % (0-4.4) 02/22/21 05:43 Basophils % 1.0 % (0-1.3) 02/22/21 05:43 Absolute Neutrophils 3.9 K/uL (1.8-8.0) 02/22/21 05:43 Segmented Neutrophils 79 % (40-80) 02/21/21 11:15 Absolute Lymphocytes 0.6 K/uL (0.7-4.9) L 02/22/21 05:43 Lymphocytes 11 % (15-42) L 02/21/21 11:15 Monocytes 8 % (0-10) 02/21/21 11:15 Absolute Monocytes 0.6 K/uL (0.1-1.3) 02/22/21 05:43 Eosinophils 1 % (0-3) 02/21/21 11:15 Absolute Eosinophils 0.2 K/uL (0-0.5) 02/22/21 05:43 Basophils 1 % (0-1) 02/21/21 11:15 Absolute Basophils 0.0 K/uL (0-0.5) 02/22/21 05:43 Platelet Estimate Adeq 02/21/21 11:15 Morphology Comment Not seen (NOT SEEN) 02/21/21 11:15 PT 11.9 SECONDS (9.5-12.5) 02/21/21 11:15 INR 1.03 02/21/21 11:15 Sodium 142 mmol/L (136-145) 02/22/21 05:43 Potassium 3.5 mmol/L (3.5-5.1) 02/22/21 05:43 Chloride 110 mmol/L (98-107) H 02/22/21 05:43 Carbon Dioxide 29 mmol/L (21-32) 02/22/21 05:43 BUN 9 mg/dL (7-18) 02/22/21 05:43 Creatinine 0.64 mg/dL (0.55-1.3) 02/22/21 05:43 Estimated GFR > 90 mL/min (=/>90) 02/22/21 05:43 Glucose 123 mg/dL (74-106) H 02/22/21 05:43 Calcium 8.5 mg/dL (8.5-10.1) 02/22/21 05:43 Phosphorus 2.3 mg/dL (2.5-4.9) L 02/22/21 05:43 Magnesium 1.7 mg/dL (1.8-2.4) L 02/22/21 05:43 Total Bilirubin 0.3 mg/dL (0.2-1.0) 02/21/21 11:15 Direct Bilirubin 0.1 mg/dL (0-0.2) 02/21/21 11:15 AST 13 U/L (15-37) L 02/21/21 11:15 ALT 10 U/L (12-78) L 02/21/21 11:15 Alkaline Phosphatase 104 U/L (45-117) 02/21/21 11:15 Rapid Troponin I < 0.02 ng/mL (0.0-0.045) 02/21/21 11:15 NT-Pro-B Natriuret Pep 510 pg/mL (<125) H 02/21/21 11:15 Serum Total Protein 5.7 g/dL (6.4-8.2) L 02/21/21 11:15 Albumin 2.8 g/dL (3.4-5.0) L 02/21/21 11:15 Globulin 2.9 g/dL (2.3-3.5) 02/21/21 11:15 Albumin/Globulin Ratio 1.0 (1.1-1.8) L 02/21/21 11:15 Lipase 32 U/L (73-393) L 02/21/21 11:15 TSH 5.070 uIU/mL (0.360-3.740) H 02/22/21 05:43 Free T4 0.95 ng/dL (0.76-1.46) 02/22/21 05:43 Urine pH 5.0 (5.0-7.0) 02/21/21 12:10 Ur Specific [place] >=1.030 (1.005-1.030) 02/21/21 12:10 Glucose (UA)(Auto) Negative (Negative) 02/21/21 12:10 Urine Ketones 3+ (Negative) H 02/21/21 12:10 Urine Blood 2+ (Negative) H 02/21/21 12:10 Urine Nitrite Positive (Negative) H 02/21/21 12:10 Ur Leukocyte Esterase 3+ (Negative) H 02/21/21 12:10 Urine Total Protein 1+ (Negative) H 02/21/21 12:10 SARS-CoV-2 RNA (RT-PCR) Negative (NEGATIVE) 02/21/21 12:29 Temp Pulse Resp BP Pulse Ox 98.2 F 62 16 141/68 H 97 02/25/21 08:00 02/25/21 09:01 02/25/21 08:00 02/25/21 09:01 02/25/21 08:00 Assessment And Plan - Plan Antibiotics: merum start: 02/23 stop: 03/10 Assessment: 1. ESBL Klebsiella UTI 2. poor oral intake 3. s/p left knee replacment Plan: 1. Continue meropenem for any antibiotic duration 2 weeks. Patient has frequent ESBL urinary tract infections common patient may have colonization. Recommend outpatient follow up with Urology. 2. Monitor albumin level. 3. CT knee pending. -medical management per primary team -continue to monitor BMP and CBC -continue to monitor for signs of infection. Plan of care discussed with Dr. Coleman Thank you for consultation.
[2021-02-25] MEDS ORDERED: FLEET ENEMA ADULT PR ONE (16:00)
[2021-02-25] MEDS: POLYETHYL GLY 3350 17 GM/DOSE PO PRN (16:36)
--- NOTE | 2021-02-25 16:54 | P.PN ---
Subjective Date of Service: 02/25/21 Chief Complaint: Generalize weakness Subjective: No new changes (continues with some nausea, unsure if passing flatus, reports L knee pain is slightly worse. refused PICC yesterday) Review of Systems 10-point ROS is otherwise unremarkable Physical Examination - Vital Signs Temperature: 98.2 F Blood Pressure: 141/68 Pulse: 62 Respirations: 18 Pulse Ox (%): 95 Assessment & Plan Physician Review Additional Text: Physical Exam General: Alert, mild discomfort, AAOx3 HEENT: normal conjunctiva, sclera anicteric Respiratory: Clear to auscultation bilaterally, Normal air movement Cardiovascular: No edema, Regular rate/rhythm, Normal S1 S2 Gastrointestinal: Soft and benign, Non-distended, No tenderness Musculoskeletal: L knee swelling, mild-mod TTP, unchanged Integumentary: No rashes, No erythema Problem List UTI, cystitis Decreased oral intake Status post left knee replacement Generalized anxiety disorder chronic pain disorder hypothyroidism patient reports nausea and dry heaving, reports no BM in >1 week, no improvement with laxatives made NPO on 02/24, KUB with possible ileus, KUB improved this morning, EMR shows +bm overnight, patient unsure, states no BM Antibiotics changed to IV meropenem given ESBL Klebsiella on 02/23, ID consulted, PICC ordered - pt refused, now says shes open to it Continue PT. Continue home medications for anxiety Continue synthroid. Considering Seroquel at bedtime for agitation. Dispo: anticipate dc in ~2 days, needs resolution of ileus/constipation, needs PICC Time Spent Managing Pts Care (In Minutes): 35
[2021-02-25] MEDS: TRAZODONE 150 MG TAB PO SCH ×2 (21:00→21:01)
[2021-02-25] MEDS: clonazePAM 1 MG TAB PO SCH (21:01)
[2021-02-26] MEDS: ONDANSETRON 4 MG/2 ML VIAL IV PRN ×2 (01:00→11:18)
[2021-02-26] MEDS: Meropenem 1 GM/100 ML BAG IV SCH ×3 (01:00→21:02)
[2021-02-26] MEDS: Oxycodone HCl/Acetaminophen 1 TAB TAB PO PRN ×3 (01:07→15:41)
[2021-02-26] MEDS: TRAZODONE 150 MG TAB PO SCH ×2 (01:07→21:05)
[2021-02-26] MEDS ORDERED: FLEET ENEMA ADULT PR ONE ×3 (05:54→17:00)
[2021-02-26 06:37] LABS: BUN Blood Urea Nitrogen 9 mg/dL (7-18); Bicarbonate 29 mmol/L (21-32); Glucose Level 90 mg/dL (74-106); Phosphorus 2.5 mg/dL (2.5-4.9); Potassium 3.8 mmol/L (3.5-5.1); Sodium Level 141 mmol/L (136-145)
[2021-02-26] MEDS: ENOXAPARIN 40 MG/0.4 ML SQ SCH (09:00)
[2021-02-26] MEDS: METOPROLOL XL 25 MG TAB PO SCH ×2 (11:09→21:00)
[2021-02-26] MEDS: VENLAFAXINE HCL XR 75 MG CAP PO SCH (11:10)
[2021-02-26] MEDS: DOCUSATE NA 100 MG CAP PO SCH ×2 (11:10→21:06)
--- NOTE | 2021-02-26 14:49 | P.PN ---
Subjective Date of Service: 02/26/21 Chief Complaint: Generalize weakness Subjective: Improving (BM last night after enema, patient reports no flatus or BM since then. Still with mild nausea. not worsened by clear liquid diet. no pain. worked with PT yesterday. patient did not want PICC line placed yesterday, still waiting for this to occur, patient agreeable) Review of Systems 10-point ROS is otherwise unremarkable Physical Examination - Vital Signs Temperature: 99.4 F Blood Pressure: 117/57 Pulse: 50 Respirations: 18 Pulse Ox (%): 95 Assessment & Plan Physician Review Additional Text: Physical Exam General: Alert, AAOx3 HEENT: normal conjunctiva, sclera anicteric Respiratory: Clear to auscultation bilaterally, Normal air movement Cardiovascular: Regular rate/rhythm, Normal S1 S2 Gastrointestinal: Soft, Non-distended, No tenderness Musculoskeletal: mild L knee swelling, mild TTP, improved Integumentary: No rashes, No erythema Problem List UTI, cystitis Decreased oral intake Status post left knee replacement Generalized anxiety disorder chronic pain disorder hypothyroidism patient still with some nausea, no emesis. BM last night after enema, still denies flatus made NPO on 02/24, KUB with possible ileus, KUB improved yesterday, +bm overnight after enema, repeat KUB Antibiotics changed to IV meropenem given ESBL Klebsiella on 02/23, ID consulted PICC ordered - pt refused, now says shes open to it Continue PT. Continue home medications for anxiety. Continue synthroid. overall seems to be improving. L knee swelling/pain improved today needs PICC line and to continue participate with PT patient and prefer discharge to inpatient rehab, pt was at [facility] rehab ~3 weeks ago for ~1 week, discharged due to inability to fully participate at that time Dispo: anticipate dc in ~1-2 days, needs resolution of ileus/constipation, needs PICC Discussed advanced directives and dispo planning with patient and for ~25minutes. Prefer inpatient rehab to improve function after recent knee surgery. Patient does not want SNF. They are weighing other options if unable to go to inpatient rehab Time Spent Managing Pts Care (In Minutes): 35
[2021-02-26] MEDS: ONDANSETRON 4 MG (ODT) TAB PO PRN (15:41)
--- NOTE | 2021-02-26 17:15 | RAD REPORT ---
EXAM DESCRIPTION: RAD - Abdomen 1 View (KUB) - 02/26/2021 4:26 pm CLINICAL HISTORY: constipation, nausea COMPARISON: Abdomen 1 View (KUB) dated 02/25/2021 FINDINGS: Bowel gas pattern is non-specific. No obstruction, free air or pneumatosis. No abnormal s tool volume in the colon. No suspicious calcifications. IMPRESSION: No abnormal stool volume in the colon. No acute or suspicious bowel finding identifiable . No significant change from February 25 imaging.
[2021-02-26] MEDS: D5 0.9 NS 1,000 ML IV SCH (21:02)
[2021-02-26] MEDS: clonazePAM 1 MG TAB PO SCH (21:06)
[2021-02-27] MEDS: Meropenem 1 GM/100 ML BAG IV SCH ×3 (00:40→16:31)
[2021-02-27] MEDS ORDERED: AMLODIPINE 5 MG TAB PO ONE (01:24)
[2021-02-27 06:49] LABS: BUN Blood Urea Nitrogen 9 mg/dL (7-18); Bicarbonate 32 mmol/L (21-32); Glucose Level 90 mg/dL (74-106); Magnesium 1.9 mg/dL (1.8-2.4); Potassium 3.4 mmol/L (3.5-5.1); Sodium Level 141 mmol/L (136-145)
[2021-02-27] MEDS: POTASSIUM 25 MEQ EFFERV TAB PO ONE ×2 (09:00→09:35)
[2021-02-27] MEDS: METOPROLOL XL 25 MG TAB PO SCH ×2 (09:00→21:00)
[2021-02-27] MEDS: VENLAFAXINE HCL XR 75 MG CAP PO SCH (09:33)
[2021-02-27] MEDS: DOCUSATE NA 100 MG CAP PO SCH ×2 (09:33→21:00)
[2021-02-27] MEDS: ENOXAPARIN 40 MG/0.4 ML SQ SCH (09:36)
[2021-02-27] MEDS: Oxycodone HCl/Acetaminophen 1 TAB TAB PO PRN ×2 (10:02→18:53)
[2021-02-27] MEDS ORDERED: POTASSIUM CL SA 10 MEQ TAB PO ONE (11:15)
--- NOTE | 2021-02-27 11:25 | P.PN ---
Subjective Date of Service: 02/27/21 Chief Complaint: Generalize weakness Patient seen and examined at bedside-Waiting PICC line placment patient is willing to have it placed today. Review of Systems 10-point ROS is otherwise unremarkable Physical Examination - Vital Signs Temperature: 97.4 F Blood Pressure: 103/55 Pulse: 50 Respirations: 16 Pulse Ox (%): 96 Assessment And Plan - Plan General: In no apparent distress, Confused HEENT: Atraumatic, Normocephalic, Other Neck: 2+ carotid pulse no bruit Respiratory: Clear to auscultation bilaterally, Normal air movement, Friction rub Cardiovascular: No edema, Normal pulses, Regular rate/rhythm Capillary refill: <2 Seconds Musculoskeletal: No clubbing, No swelling, No contractures Integumentary: Other (Left knee bruising and swelling status post left knee replacement. Scabbing along the incision site.) Antibiotics: merum start: 02/23 stop: 03/10 Assessment: 1. ESBL Klebsiella UTI 2. poor oral intake 3. s/p left knee replacment Plan: 1. Continue meropenem for any antibiotic duration 2 weeks. Patient has frequent ESBL urinary tract infections common patient may have colonization. Recommend outpatient follow up with Urology. 2. Monitor albumin level. 3. CT knee pending- showed soft tissue showed edema on: Cellulitis versus venous stasis. -medical management per primary team -continue to monitor BMP and CBC -continue to monitor for signs of infection. Plan of care discussed with Dr. Coleman Thank you for consultation.
--- NOTE | 2021-02-27 15:40 | P.PN ---
Subjective Date of Service: 02/27/21 Chief Complaint: Generalize weakness Subjective: No new changes (felt better have enema yesterday - had BM. Denies flatus or other BM since enema. KUB yesterday with normal bowel gas pattern. continues with some mild nausea, generalized weakness) Review of Systems 10-point ROS is otherwise unremarkable Physical Examination - Vital Signs Temperature: 98.0 F Blood Pressure: 148/75 Pulse: 59 Respirations: 16 Pulse Ox (%): 98 Assessment & Plan Physician Review Additional Text: Physical Exam General: Alert, AAOx3, fatigued HEENT: normal conjunctiva, sclera anicteric Respiratory: Clear to auscultation bilaterally, Normal air movement Cardiovascular: Regular rate/rhythm, Normal S1 S2 Gastrointestinal: Soft, Non-distended, No tenderness Musculoskeletal: mild L knee swelling, mild TTP, tenderness to palpation along lower left leg (chronic per patient) Integumentary: No rashes, No erythema Problem List UTI, cystitis Decreased oral intake ileus, improved Status post left knee replacement Generalized anxiety disorder chronic pain disorder hypothyroidism patient still with some nausea, no emesis. BM last night after enema, still denies flatus made NPO on 02/24, KUB with possible ileus, KUB improved, +bm overnight after the last 2 enemas, however, pt still denies flatus, continues with some nausea Antibiotics changed to IV meropenem given ESBL Klebsiella on 02/23, ID consulted PICC ordered - pt refused, now says shes open to it, awaiting for PICC nurse Continue PT. Continue home medications for anxiety. Continue synthroid. overall seems to be improving. L knee swelling/pain improved needs PICC line and to continue participate with PT patient and prefer discharge to inpatient rehab, pt was at [facility] rehab ~3 weeks ago for ~1 week, discharged due to inability to fully participate at that time will obtain small bowel series to r/o obstruction Dispo: anticipate dc in ~1-2 days, needs resolution of ileus/constipation, needs PICC Prefer inpatient rehab to improve function after recent knee surgery. Patient does not want SNF. They are weighing other options if unable to go to inpatient rehab Time Spent Managing Pts Care (In Minutes): 35
--- NOTE | 2021-02-27 20:30 | RAD REPORT ---
EXAM DESCRIPTION: RAD - Small Bowel Series - 02/27/2021 8:16 pm CLINICAL HISTORY: Abdominal pain/ COMPARISON: None. FINDINGS: Contrast enters the colon by approximately 1 hour 30 minutes. The mucosal folds of the small bowel appear normal. No permanent filling defects, obstructing or constricting lesions are seen. The small bowel caliber is normal. IMPRESSION: Unremarkable small bowel series.
[2021-02-27] MEDS: TRAZODONE 150 MG TAB PO SCH (21:00)
[2021-02-27] MEDS: clonazePAM 1 MG TAB PO SCH (21:00)
--- NOTE | 2021-02-27 23:06 | P.PN ---
Date of Service: 02/27/21 Patient is the without IV access over the course of the last 48 hr, patient initially had refused PICC line placement, another temp today was unsuccessful with some level of uncooperativeness from patient, patient is had multiple peripheral IV times from various nursing staff unsuccessfully. Went to patient's room and attempted midline via ultrasound guidance to bilateral upper extremities without success, additionally attempted other peripheral IV again unsuccessfully. Case was discussed with General Surgery who plans for placement of central venous catheter tomorrow under fluoroscopy in the operating room as patient will require long-term IV antibiotic therapy due to ESBL UTI. At 9:17 p.m. today code stroke was called, nurse taking care patient was concerned as when she went to check on the patient she was lethargic and appeared to be having some left-sided facial droop involving the left eye. I immediately came to evaluate the patient, patient was indeed lethargic, blood glucose was checked and low normal, stat CT head without contrast was ordered and carried out. Upon return to the room from CT patient was much more alert, complaining that she was tired, [employer] strength equal bilaterally, sensation intact bilaterally, patient did appear to be having some difficulty with her left eye but was able to tell me that this was related to her previous laser surgery of her left eye and that she has had trouble with this in the past. When instructed to smile her face was symmetrical, able to open both eyes fully and close fully without one-sided deficit. Patient did appear generally drowsy in speech was slower compared to earlier in the day although she was very aware of her surroundings discussing the plans for surgical intervention with CVC placement in the morning. At this time patient does not appear to be a good candidate for TPA as her symptoms were questionable/minor and rapidly improving with questionable or no acute neurological deficits noted. Patient also had recently taken her oxycodone which may be contributing to patient's lethargy. Will continue to monitor patient closely with neuro checks, case discussed with hospitalist attending. Stat CT head without contrast negative for any acute findings per radiologist.
[2021-02-28] MEDS: Meropenem 1 GM/100 ML BAG IV SCH ×4 (00:32→16:45)
[2021-02-28] MEDS: ONDANSETRON 4 MG (ODT) TAB PO PRN ×2 (01:05→11:34)
[2021-02-28] MEDS: ACETAMINOPHEN 500 MG TAB PO PRN (01:07)
[2021-02-28] MEDS ORDERED: NS 0.9% VIAL 30 ML ONE (07:50)
[2021-02-28] MEDS ORDERED: LIDOCAINE 1% MPF 30 ML VIAL ONE (07:51)
[2021-02-28] MEDS ORDERED: NA CHLORIDE 0.9% 500 ML ONE (07:59)
[2021-02-28] MEDS ORDERED: LIDOCAINE 2% MPF 5 ML VIAL ONE (08:09)
[2021-02-28] MEDS ORDERED: propofoL 200 MG/20 ML VIAL IV ONE (08:09)
[2021-02-28] MEDS ORDERED: FENTANYL CITR 100 MCG/2 ML ONE (08:11)
[2021-02-28] MEDS ORDERED: GLYCOPYRROLATE 0.2 MG/ML SYR ONE (08:28)
[2021-02-28] MEDS ORDERED: CEFAZOLIN SODIUM 1 GM/VIAL ONE (08:36)
[2021-02-28] MEDS ORDERED: dexAMETHasone 10 MG/ML VIAL ONE (08:54)
[2021-02-28] MEDS ORDERED: ONDANSETRON 4 MG/2 ML VIAL ONE (08:54)
[2021-02-28] MEDS ORDERED: KETOROLAC 30 MG/ML INJ ONE (08:55)
[2021-02-28] MEDS: ENOXAPARIN 40 MG/0.4 ML SQ SCH (09:00)
--- NOTE | 2021-02-28 09:10 | P.OP ---
[employer] Loom Weaver: NONE,NONE Preoperative diagnosis: Poor IV Access, UTI Postoperative diagnosis: same Primary procedure: RIJ Central line Secondary procedure: Fluoroscopy Anesthesia: General Estimated blood loss: min Specimen: none Findings: as above Complications: None Transferred to: Recovery Room Condition: Good
--- NOTE | 2021-02-28 09:11 | RAD REPORT ---
EXAM DESCRIPTION: RAD - Fluoroscopy <1 Hour - 02/28/2021 8:59 am FINDINGS: There were 3 portable C-arm views submitted from a fluoroscopic assisted right central north e placement. Fluoro time was less than 0.1 minutes. Cumulative dose was 0.215 mGy.
--- NOTE | 2021-02-28 09:12 | RAD REPORT ---
EXAM DESCRIPTION: RAD - Chest Single View - 02/28/2021 9:05 am CLINICAL HISTORY: S/P CENTRAL LINE PLACEMENT COMPARISON: Portable February 21 TECHNIQUE: AP portable chest image was obtained 02/28/2021 9:05 am . FINDINGS: Right-sided central line has been placed. Tip is in the distal SVC. There is no pneumothor ax. No acute lung parenchymal process. Heart and vasculature are normal. IMPRESSION: Right-sided central line placement with tip in the distal SVC. No pneumothorax.
[2021-02-28] MEDS: METOPROLOL XL 25 MG TAB PO SCH ×2 (09:33→20:07)
[2021-02-28] MEDS: DOCUSATE NA 100 MG CAP PO SCH ×2 (09:34→20:07)
[2021-02-28] MEDS: VENLAFAXINE HCL XR 75 MG CAP PO SCH (09:34)
[2021-02-28 09:55] LABS: Absolute Lymphocytes (CBC) 0.3 K/uL (0.7-4.9); Basophils % 0.6 % (0-1.3); Hematocrit 29.1 % (36.0-45.0); Lymphocytes % 4.9 % (15.3-44.8); MPV 8.3 fL (7.6-11.3); RBC Red Blood Cell Count 3.23 M/uL (3.86-4.86)
--- NOTE | 2021-02-28 09:57 | P.PN ---
Subjective Date of Service: 02/28/21 Chief Complaint: Generalize weakness Subjective: Other (overnight noted to have drooping L eyelid, and some speech difficulty. CT brain negative, pts symptoms resolved. This morning pt reports anxiety regarding central line placement. Reports ongoing chronic pain. states no BM in 3 days, however she had BM 2 days ago. Small bowel series normal yesterday) Review of Systems 10-point ROS is otherwise unremarkable Physical Examination - Vital Signs Temperature: 97.6 F Blood Pressure: 129/58 Pulse: 65 Respirations: 16 Pulse Ox (%): 99 Assessment & Plan Physician Review Additional Text: Physical Exam General: Alert, AAOx3 HEENT: normal conjunctiva, sclera anicteric Respiratory: Clear to auscultation bilaterally, Normal air movement Cardiovascular: Regular rate/rhythm, Normal S1 S2 Gastrointestinal: Soft, Non-distended, No tenderness Musculoskeletal: mild L knee swelling, mild TTP, tenderness to palpation along lower left leg (chronic per patient). mild swelling in L arm at site of prior IV Integumentary: No rashes, No erythema Neuro: XN II-XII grossly intact, moves all extremities, movement and strength of LLE hindered due to pain/recent surgery Problem List UTI, cystitis Decreased oral intake ileus, improved s/p left knee replacement Generalized anxiety disorder chronic pain disorder hypothyroidism patient still with mild nausea, no emesis. BM 2 days ago, denies flatus. made NPO on 02/24, KUB with possible ileus, KUB improved, +bm after the last 2 enemas small bowel series (02/27): no evidence of obstruction. Pain medication likely contributing Antibiotics changed to IV meropenem given ESBL Klebsiella on 02/23, ID consulted PICC ordered - pt refused, now says shes open to it, however unavailable PICC nurse. Pt to have central line placed due to loss of access Continue PT. Continue home medications for anxiety. Continue synthroid. patient and prefer discharge to inpatient rehab, pt was at [facility] rehab ~3 weeks ago for ~1 week, discharged due to inability to fully participate at that time inpatient rehab denied Dispo: family preferred rehab, however this has been denied. do not want sNF patient has not received PICC line now, and due to loss of access / inability to obtain reliable access, central line was placed on 02/[address] Cardenas. Time Spent Managing Pts Care (In Minutes): 35
[2021-02-28 10:11] LABS: ALT/SGPT 7 U/L (12-78); AST/SGOT 8 U/L (15-37); Albumin 2.2 g/dL (3.4-5.0); Alkaline Phosphatase 110 U/L (45-117); BUN Blood Urea Nitrogen 10 mg/dL (7-18); Bicarbonate 32 mmol/L (21-32); Bilirubin Direct 0.1 mg/dL (0-0.2); Bilirubin Total 0.3 mg/dL (0.2-1.0); Glucose Level 80 mg/dL (74-106); Potassium 4.1 mmol/L (3.5-5.1); Protein, Total 4.9 g/dL (6.4-8.2); Sodium Level 142 mmol/L (136-145)
[2021-02-28 13:07] LABS: Blood Morphology Comment NOT SEEN (NOT SEEN); Platelet Estimate ADEQ; White Blood Cell Scan OK (OK)
--- NOTE | 2021-02-28 13:18 | PREOPCON ---
Date of Consultation: 02/27/2021 Reason For Consultation: The patient has poor IV access. Requires central line. History Of Present Illness: The patient is a 75-year-old female with chronic recurrent UTI. She cam e in with UTI, has very poor IV access. They are unable to get a good IV and for IV antib iotics. She has had multiple infections in the past and she has had a Percocet last night and had so me mental status changes following which a CT of the head was done which did not show any evidence of stroke. She is awake and alert, very anxious. No sore throat, runny nose, cough, headaches, or diz ziness. No fever or chills. Review of Systems: Otherwise unremarkable. Past Medical History: Significant for hypertension, hypothyroidism, B-cell lymphoma, DJD of spine, c hronic recurrent UTI, shingles, vertigo, and anxiety. Past Surgical History: Hysterectomy, cholecystectomy, gastric bypass, right hip surgery, Port-A-Cath placement, knee surgery, right shoulder surgery, and tonsillectomy. Allergies: COMPAZINE. Social History: The patient does not smoke or drink at this time. Family History: Significant for heart disease, diabetes, hypertension, kidney disease, Alzheimer's. Physical Examination: Vital Signs: Stable. She is afebrile. General: She is awake, alert. Head and Neck: No masses. Chest: Clear. Heart: S1 and S2. Abdomen: Soft. Extremities: Neurovascularly intact. Neurologic: Nonfocal. Laboratory Data: Reviewed. Platelets are 180, INR on admission was 1.03. Chemistry reviewed. Urin e cultures positive for Klebsiella. Assessment: Chronic recurrent urinary tract infection with poor IV access. The patient with multipl e medical problems. Recommendations: We will go and place a central line. The patient understands risks, benefits, and alternatives and agrees to procedure. Please note, I did discuss the option of putting a Port-A-Cath in but the hospitalist at this time does not feel the patient requires a Port-A-Cath. /MODL Voice ID: [id number] Report ID: [id number]
[2021-02-28] MEDS: Oxycodone HCl/Acetaminophen 1 TAB TAB PO PRN (15:40)
[2021-02-28] MEDS: ONDANSETRON 4 MG/2 ML VIAL IV PRN (17:35)
--- NOTE | 2021-02-28 19:54 | OP ---
Date of Procedure: 02/28/2021 Surgeon: Efren Cardenas MD Prize Coordinator: None. Preoperative Diagnoses: Poor intravenous access, urinary tract infection. Postoperative Diagnoses: Poor intravenous access, urinary tract infection. Procedures: Right neck triple-lumen catheter placement, interpretation of intraoperative fluoroscopy . Estimated Blood Loss: Minimal. Specimens: None. Findings: Normal anatomy. Anesthesia: General. Complications: None. Disposition: The patient tolerated the procedure in stable condition, taken to Recovery in good gene ral condition. Procedure In Detail: The patient was brought to the OR and placed in supine position. General anest hesia was begun. The patient was prepped and draped in the usual sterile fashion. Lidocaine 1% was infiltrated locally. An 18-gauge needle was attempted to access the right IJ and right subclavian ve in, which was unsuccessful, but at the supraclavicular level in the right neck, different approaches applied in IJ, superior vena cava, and subclavian vein area. The vein was accessed, guidewire was pa ssed, position was confirmed with fluoroscopy, and then Seldinger technique was used. Triple-lumen c atheter was placed in the distal SVC under fluoroscopy and then flushed with heparin, packed with hep jonny, secured to the skin with 3- 0 silk. Dressing applied. The patient was awakened and taken to Recovery in good general condition. Chest x-ray was ordered. /MODL Voice ID: [id number] Report ID: [id number]
[2021-02-28] MEDS: TRAZODONE 150 MG TAB PO SCH (20:07)
[2021-02-28] MEDS: clonazePAM 1 MG TAB PO SCH (20:07)
[2021-03-01] MEDS: Meropenem 1 GM/100 ML BAG IV SCH ×3 (00:28→16:00)
[2021-03-01] MEDS: Oxycodone HCl/Acetaminophen 1 TAB TAB PO PRN ×2 (03:18→10:27)
[2021-03-01] MEDS: ACETAMINOPHEN 500 MG TAB PO PRN (04:13)
[2021-03-01 07:01] LABS: BUN Blood Urea Nitrogen 14 mg/dL (7-18); Bicarbonate 28 mmol/L (21-32); Glucose Level 75 mg/dL (74-106); Potassium 4.4 mmol/L (3.5-5.1); Sodium Level 140 mmol/L (136-145)
[2021-03-01] MEDS: VENLAFAXINE HCL XR 75 MG CAP PO SCH (07:34)
[2021-03-01] MEDS: ENOXAPARIN 40 MG/0.4 ML SQ SCH (07:34)
[2021-03-01] MEDS: DOCUSATE NA 100 MG CAP PO SCH ×2 (07:34→20:32)
[2021-03-01] MEDS: METOPROLOL XL 25 MG TAB PO SCH ×2 (07:43→20:32)
--- NOTE | 2021-03-01 10:00 | P.PN ---
Subjective Date of Service: 03/01/21 Chief Complaint: Generalize weakness Subjective: Improving (feeling ok today, still with some nausea, zofran helps. passing flatus, denies BM yesterday , EMR lists pt had BM. s/p central line placement yesterday) Review of Systems 10-point ROS is otherwise unremarkable Physical Examination - Vital Signs Temperature: 97.9 F Blood Pressure: 153/67 Pulse: 60 Respirations: 19 Pulse Ox (%): 100 Assessment & Plan Physician Review Additional Text: Physical Exam General: Alert, AAOx3, NAD HEENT: normal conjunctiva, sclera anicteric Respiratory: Clear to auscultation bilaterally, Normal air movement Cardiovascular: Regular rate/rhythm, Normal S1 S2 Gastrointestinal: Soft, Non-distended, No tenderness Musculoskeletal: mild L knee swelling with mild TTP, TTP along lower left leg (chronic per patient) Integumentary: No rashes, No erythema Problem List UTI, cystitis Decreased oral intake ileus, improved s/p left knee replacement Generalized anxiety disorder chronic pain disorder hypothyroidism Patient still with mild nausea, no emesis. BM documented yesterday, + flatus, negative small bowel series made NPO on 02/24, KUB with possible ileus, KUB improved, +bm after the last 2 enemas. small bowel series (02/27): no evidence of obstruction. Pain medication likely contributing continue colace and add miralax 03/01 Antibiotics changed to IV meropenem given ESBL Klebsiella on 02/23, ID consulted PICC ordered - pt initially refused, then reportedly did not allow PICC team to position her arm for procedure Pt lost IV access for 24hrs, no PICC nurse available, and failed attempts for further access, so Dr. Cardenas was consulted and placed a central line on 02/28 Will try for PICC line when PICC team is available Continue PT. Continue home medications for anxiety. Continue synthroid. patient and prefer discharge to inpatient rehab, pt was at [facility]hab ~3 weeks ago for ~1 week, discharged due to inability to fully participate at that time inpatient rehab denied will discuss with her today regarding LTAC or SNF vs home, if PICC is possible Dispo: family preferred rehab, however this has been denied. did not want SNF previously, possible could benefit from LTAC patient has not received PICC line now, and due to loss of access / inability to obtain reliable access, central line was placed on 02/[address] Cardenas. Time Spent Managing Pts Care (In Minutes): 35
[2021-03-01] MEDS: POLYETHYL GLY 3350 17 GM/DOSE PO SCH (10:16)
[2021-03-01] MEDS: TRAZODONE 150 MG TAB PO SCH (20:32)
[2021-03-01] MEDS: clonazePAM 1 MG TAB PO SCH (20:32)
[2021-03-02] MEDS: Meropenem 1 GM/100 ML BAG IV SCH ×3 (00:31→16:00)
[2021-03-02] MEDS: ONDANSETRON 4 MG/2 ML VIAL IV PRN ×2 (03:51→21:52)
[2021-03-02] MEDS: Oxycodone HCl/Acetaminophen 1 TAB TAB PO PRN ×2 (03:51→21:51)
[2021-03-02] MEDS: DOCUSATE NA 100 MG CAP PO SCH ×2 (08:00→21:11)
[2021-03-02] MEDS: VENLAFAXINE HCL XR 75 MG CAP PO SCH (08:00)
[2021-03-02] MEDS: ENOXAPARIN 40 MG/0.4 ML SQ SCH (08:01)
[2021-03-02] MEDS: POLYETHYL GLY 3350 17 GM/DOSE PO SCH (08:01)
[2021-03-02] MEDS: METOPROLOL XL 25 MG TAB PO SCH ×2 (09:00→21:00)
--- NOTE | 2021-03-02 10:40 | RAD REPORT ---
EXAM DESCRIPTION: CT - Ct Stroke Brain Wo Cont - 02/28/2021 8:55 am ADDENDUM #1 THIS REPORT CONTAINS FINDINGS THAT MAY BE CRITICAL TO PATIENT CARE: Called, telephoned, verbal repo rt was given oral to Dr. Matta at 9:46 PM CDT on 02/27/2021. Electronically signed by: Cali Alcala MD 02/27/2021 9:48 PM CDT End of Addendum EXAM DESCRIPTION: Ct Stroke Brain Wo Cont 02/27/2021 9:38 PM CDT CLINICAL HISTORY: 75 years, Female, left side facial droop, slurring COMPARISON: 11/20/2020. FINDINGS: Multiple transaxial tomograms of the brain were obtained from the base of the skull to the vertex without contrast. 2-D multiplanar reformats and the coronal and sagittal plane were performed and reviewed. An individualized dose optimization technique, Automated Exposure Control, was utilized for the perfo rmed procedure. Brain parenchyma demonstrate mild prominence of the sulci and gyri are corresponding to mild cerebral and cerebellar atrophy. There is minimal periventricular white matter changes of microvascular ische anuja. There is no midline shift and/or mass effect. There is no evidence for acute intracranial hemorr mirlande. Lateral ventricles and cisterns displace normal appearance. No intra or extra axial fluid c ollections were seen. The calvarium is intact with no evidence for fracture. The visualized portions of the paranasal sinuses and orbits demonstrate to be clear. IMPRESSION: MILD BRAIN ATROPHY WITH PERIVENTRICULAR MATTER CHANGES OF MICROVASCULAR ISCHEMIA. NO ACUTE INTRACRANIAL HEMORRHAGE. NO SIGNIFICANT INTERVAL CHANGE IN COMPARISON WITH 11/20/2020. CONCER N MRI COULD BE OF ASSISTANCE. Electronically signed by: Cali Alcala MD 02/27/2021 9:40 PM CDT Due to temporary technical issues with the PACS/Fluency reporting system, reports are being signed by the in house radiologists without review as a courtesy to insure prompt reporting. The interpreting radiologist is fully responsible for the content of the report.
--- NOTE | 2021-03-02 10:54 | P.PN ---
Subjective Date of Service: 03/02/21 Chief Complaint: Generalize weakness Patient seen and examined at bedside-denies any acute complaints. States her appetite is adequate. Central line placed on 02/28. Review of Systems 10-point ROS is otherwise unremarkable Physical Examination - Vital Signs Temperature: 97.1 F Blood Pressure: 114/58 Pulse: 51 Respirations: 16 Pulse Ox (%): 96 - Studies Temp Pulse Resp BP Pulse Ox 97.1 F 51 16 114/58 L 96 03/02/21 08:00 03/02/21 09:00 03/02/21 08:00 03/02/21 09:00 03/02/21 08:00 Assessment And Plan - Plan General: In no apparent distress, Confused HEENT: Atraumatic, Normocephalic, Other Neck: 2+ carotid pulse no bruit, left central line placed. Respiratory: Clear to auscultation bilaterally, Normal air movement, Friction rub Cardiovascular: No edema, Normal pulses, Regular rate/rhythm Capillary refill: <2 Seconds Musculoskeletal: No clubbing, No swelling, No contractures Integumentary: Other (Left knee bruising and swelling status post left knee replacement. Scabbing along the incision site.) Antibiotics: merum start: 02/23 stop: 03/10 Assessment: 1. ESBL Klebsiella UTI 2. poor oral intake 3. s/p left knee replacment Plan: 1. Continue meropenem for any antibiotic duration 2 weeks. Patient has frequent ESBL urinary tract infections common patient may have colonization. Recommend outpatient follow up with Urology. 2. Monitor albumin level. 3. CT knee pending- showed soft tissue showed edema on: Cellulitis versus venous stasis. -medical management per primary team -continue to monitor BMP and CBC -continue to monitor for signs of infection. Plan of care discussed with Dr. Coleman Thank you for consultation.
--- NOTE | 2021-03-02 11:56 | P.PN ---
Subjective Date of Service: 03/02/21 Chief Complaint: Generalized Weakness Subjective: No new changes (doing well, reports some mild nausea yesterday, appetite is ok, +flatus, no BM yesterday) Review of Systems 10-point ROS is otherwise unremarkable Physical Examination - Vital Signs Temperature: 97.1 F Blood Pressure: 114/58 Pulse: 51 Respirations: 16 Pulse Ox (%): 96 Assessment & Plan Physician Review Additional Text: Physical Exam General: Alert, NAD HEENT: normal conjunctiva, sclera anicteric Respiratory: Clear to auscultation bilaterally, Normal air movement Cardiovascular: Regular rate/rhythm, Normal S1 S2 Gastrointestinal: Soft, Non-distended, No tenderness Musculoskeletal: mild L knee swelling with mild TTP Integumentary: No rashes, No erythema Problem List UTI, cystitis due to ESBL Klebsiella Decreased oral intake ileus, improved s/p left knee replacement Generalized anxiety disorder chronic pain disorder hypothyroidism mild intermittent nausea, seems to be improving, +flatus continue colace and miralax (added 03/01) Antibiotics changed to IV meropenem given ESBL Klebsiella on 02/23, ID consulted PICC ordered - pt initially refused, then reportedly did not allow PICC team to position her arm for procedure Pt lost IV access for 24hrs, no PICC nurse available, and failed attempts for further access, so Dr. Cardenas was consulted and placed a central line on 02/28 Continue PT. Continue home medications for anxiety. Continue synthroid. Pt and do not want SNF, are hesitant to go home due to lack of care available, interested in LTAC, pt needs IV antibiotics until 03/10 Dispo: family preferred rehab, however this has been denied. did not want SNF previously, possible could benefit from LTAC Time Spent Managing Pts Care (In Minutes): 35
[2021-03-02] MEDS: clonazePAM 1 MG TAB PO SCH (21:11)
[2021-03-02] MEDS: TRAZODONE 150 MG TAB PO SCH (21:11)
[2021-03-03] MEDS: Meropenem 1 GM/100 ML BAG IV SCH ×3 (01:42→16:35)
[2021-03-03] MEDS: Oxycodone HCl/Acetaminophen 1 TAB TAB PO PRN ×3 (06:30→17:52)
[2021-03-03] MEDS: ONDANSETRON 4 MG/2 ML VIAL IV PRN ×3 (06:30→17:52)
[2021-03-03] MEDS: POLYETHYL GLY 3350 17 GM/DOSE PO SCH (08:38)
[2021-03-03] MEDS: VENLAFAXINE HCL XR 75 MG CAP PO SCH (08:40)
[2021-03-03] MEDS: ENOXAPARIN 40 MG/0.4 ML SQ SCH (08:40)
[2021-03-03] MEDS: DOCUSATE NA 100 MG CAP PO SCH ×2 (08:40→20:51)
[2021-03-03] MEDS: METOPROLOL XL 25 MG TAB PO SCH ×2 (08:41→20:57)
--- NOTE | 2021-03-03 11:54 | P.PN ---
Subjective Date of Service: 03/03/21 Chief Complaint: Generalized Weakness Patient seen and examined at bedside-states she is doing well. Awaiting PICC line placement possible transfer to [facility]. Patient missed about 3 days of her antibiotics, and will extend antibiotic duration until 03/13. Order will repeat the way for antibiotic completion. Review of Systems 10-point ROS is otherwise unremarkable Physical Examination - Vital Signs Temperature: 99.0 F Blood Pressure: 125/61 Pulse: 53 Respirations: 16 Pulse Ox (%): 97 - Studies Temp Pulse Resp BP Pulse Ox 99.0 F 53 16 125/61 97 03/03/21 08:00 03/03/21 08:00 03/03/21 08:00 03/03/21 08:00 03/03/21 08:00 Active Medications Acetaminophen (Acetaminophen 500 Mg Tab) 500 mg PO Q4HP PRN PRN Reason: TEMP > 100' F Last Admin: 03/01/21 04:13 Dose: 500 mg Documented by: Clonazepam (Clonazepam 1 Mg Tab) 1 mg PO BEDTIME [facility] Last Admin: 03/02/21 21:11 Dose: 1 mg Documented by: Docusate Sodium (Docusate Na 100 Mg Cap) 100 mg PO BID [facility] Last Admin: 03/03/21 08:40 Dose: 100 mg Documented by: Enoxaparin Sodium (Enoxaparin 40 Mg/0.4 Ml) 40 mg SQ DAILY [facility] Last Admin: 03/03/21 08:40 Dose: 40 mg Documented by: Meropenem (Merrem 1 Gm/100 Ml Ns Ivpb) 1 gm in 100 mls @ 100 mls/hr IV Q8HR [facility] Last Admin: 03/03/21 08:39 Dose: 100 mls Documented by: Metoprolol Succinate (Metoprolol Xl 25 Mg Tab) 25 mg PO BID [facility] Last Admin: 03/03/21 08:41 Dose: Not Given Documented by: Nutritional Formula (Ensure Enlive 237 Ml Can) 237 ml PO BID [facility] Ondansetron HCl (Ondansetron 4 Mg (Odt) Tab) 4 mg PO Q6H PRN PRN Reason: NAUSEA / VOMITING Last Admin: 02/28/21 11:34 Dose: 4 mg Documented by: Ondansetron HCl (Ondansetron 4 Mg/2 Ml Vial) 4 mg IV Q6HP PRN PRN Reason: NAUSEA / VOMITING Last Admin: 03/03/21 06:30 Dose: 4 mg Documented by: Oxycodone/Acetaminophen (Oxycodone Hcl/Acetaminophen 1 Tab Tab) 1 tab PO Q6H PRN PRN Reason: Pain scale 5-7 (Moderate) Last Admin: 03/03/21 06:30 Dose: 1 tab Documented by: Polyethylene Glycol (Polyethyl Gly 3350 17 Gm/Dose) 17 gm PO DAILY [facility] Last Admin: 03/03/21 08:38 Dose: Not Given Documented by: Sodium Chloride (Flush Normal Saline 10 Ml) 10 ml IV BID [facility] Last Admin: 03/03/21 08:40 Dose: 10 ml Documented by: Trazodone HCl (Trazodone 150 Mg Tab) 150 mg PO BEDTIME [facility] Last Admin: 03/02/21 21:11 Dose: 150 mg Documented by: Venlafaxine HCl (Venlafaxine Hcl Xr 75 Mg Cap) 75 mg PO DAILY [facility] Last Admin: 03/03/21 08:40 Dose: 75 mg Documented by: Assessment And Plan - Plan General: In no apparent distress, Confused HEENT: Atraumatic, Normocephalic, Other Neck: 2+ carotid pulse no bruit, left central line placed. Respiratory: Clear to auscultation bilaterally, Normal air movement, Friction rub Cardiovascular: No edema, Normal pulses, Regular rate/rhythm Capillary refill: <2 Seconds Musculoskeletal: No clubbing, No swelling, No contractures Integumentary: Other (Left knee bruising and swelling status post left knee replacement. Scabbing along the incision site.) Antibiotics: merum start: 02/23 stop: 03/13 Assessment: 1. ESBL Klebsiella UTI 2. poor oral intake 3. s/p left knee replacment Plan: 1. Continue meropenem for any antibiotic duration 2 weeks. Patient has frequent ESBL urinary tract infections common patient may have colonization. Recommend outpatient follow up with Urology. 2. Monitor albumin level. 3. CT knee pending- showed soft tissue showed edema on: Cellulitis versus venous stasis. -medical management per primary team -continue to monitor BMP and CBC -continue to monitor for signs of infection. Plan of care discussed with Dr. Coleman Thank you for consultation.
--- NOTE | 2021-03-03 15:05 | P.PN ---
Subjective Date of Service: 03/03/21 Chief Complaint: Generalized Weakness Patient has no new complain. She is complaining of pain in bilateral knees Awaiting placement. Physical Examination - Vital Signs Temperature: 97.7 F Blood Pressure: 138/63 Pulse: 59 Respirations: 16 Pulse Ox (%): 94 - Physical Exam General: Alert, In no apparent distress, Oriented x3 HEENT: Mucous membr. moist/pink Neck: JVD not distended Respiratory: Clear to auscultation bilaterally, Normal air movement Cardiovascular: No edema, Regular rate/rhythm, Normal S1 S2 Gastrointestinal: Normal bowel sounds, Soft and benign, Non-distended, No tenderness Musculoskeletal: No clubbing, No contractures Integumentary: No rashes Neurological: Other (No focal motor deficit) Assessment And Plan - Current Problems (Diagnosis) (1) Decreased oral intake Current Visit: Yes Status: Acute (2) Status post left knee replacement Current Visit: Yes Status: Acute (3) UTI (urinary tract infection) Onset Date: 06/29/17 Current Visit: No Status: Acute Qualifiers: Urinary tract infection type: site unspecified Hematuria presence: without hematuria Qualified Code(s): N39.0 - Urinary tract infection, site not specified (4) Chronic pain disorder Current Visit: No Status: Chronic (5) Anxiety disorder Onset Date: 09/09/17 Current Visit: No Status: Chronic Qualifiers: Anxiety disorder type: generalized anxiety disorder (6) Hypothyroidism Onset Date: 06/29/17 Current Visit: No Status: Chronic Qualifiers: Hypothyroidism type: acquired Qualified Code(s): E03.9 - Hypothyroidism, unspecified Physician Review Additional Text: Problem List UTI, cystitis due to ESBL Klebsiella Decreased oral intake ileus, improved s/p left knee replacement Generalized anxiety disorder chronic pain disorder hypothyroidism Continue IV meropenem for ESBL Klebsiella. About 8 more days to complete it. Reinsert PICC line and remove central line as possible. continue colace and miralax (added 03/01) PICC ordered - pt initially refused, then reportedly did not allow PICC team to position her arm for procedure Continue PT. Continue home medications for anxiety. Continue synthroid. Pain medication as needed Pt and do not want SNF, are hesitant to go home due to lack of care available, they are interested in LTAC. Social service is assisting with arrangement. Dispo: family preferred rehab, however this has been denied.
[2021-03-03] MEDS: clonazePAM 1 MG TAB PO SCH (20:50)
[2021-03-03] MEDS: TRAZODONE 150 MG TAB PO SCH (20:57)
[2021-03-03] MEDS: ENSURE ENLIVE 237 ML CAN PO SCH (20:59)
[2021-03-04] MEDS: Meropenem 1 GM/100 ML BAG IV SCH ×3 (01:42→16:47)
[2021-03-04] MEDS: Oxycodone HCl/Acetaminophen 1 TAB TAB PO PRN ×3 (04:33→20:31)
[2021-03-04] MEDS: ONDANSETRON 4 MG/2 ML VIAL IV PRN ×2 (04:34→14:45)
[2021-03-04] MEDS: ENSURE ENLIVE 237 ML CAN PO SCH ×2 (09:00→20:13)
[2021-03-04] MEDS: ENOXAPARIN 40 MG/0.4 ML SQ SCH (09:00)
[2021-03-04] MEDS: METOPROLOL XL 25 MG TAB PO SCH ×2 (09:00→20:33)
[2021-03-04] MEDS: VENLAFAXINE HCL XR 75 MG CAP PO SCH (09:50)
[2021-03-04] MEDS: DOCUSATE NA 100 MG CAP PO SCH ×2 (09:50→20:15)
[2021-03-04] MEDS: POLYETHYL GLY 3350 17 GM/DOSE PO SCH (09:51)
[2021-03-04 10:10] VITALS: O2SAT 94
--- NOTE | 2021-03-04 11:34 | P.PN ---
Subjective Date of Service: 03/04/21 Chief Complaint: Generalized Weakness Patient seen and examined at bedside-states she is doing well. Patient still having constipation, recommend repeat KUB. Review of Systems 10-point ROS is otherwise unremarkable Physical Examination - Vital Signs Temperature: 98.1 F Blood Pressure: 128/60 Pulse: 50 Respirations: 16 Pulse Ox (%): 98 Assessment And Plan - Plan General: In no apparent distress, Confused HEENT: Atraumatic, Normocephalic, Other Neck: 2+ carotid pulse no bruit, left central line placed. Respiratory: Clear to auscultation bilaterally, Normal air movement, Friction rub Cardiovascular: No edema, Normal pulses, Regular rate/rhythm Capillary refill: <2 Seconds Musculoskeletal: No clubbing, No swelling, No contractures Integumentary: Other (Left knee bruising and swelling status post left knee replacement. Scabbing along the incision site.) Antibiotics: merum start: 02/23 stop: 03/13 Assessment: 1. ESBL Klebsiella UTI 2. poor oral intake 3. s/p left knee replacment Plan: 1. Continue meropenem for any antibiotic duration 2 weeks. Patient has frequent ESBL urinary tract infections common patient may have colonization. Recommend outpatient follow up with Urology. 2. Monitor albumin level. 3. CT knee- showed soft tissue showed edema on: Cellulitis versus venous stasis. -medical management per primary team -continue to monitor BMP and CBC -continue to monitor for signs of infection. Plan of care discussed with Dr. Coleman Thank you for consultation.
--- NOTE | 2021-03-04 12:57 | P.PN ---
Subjective Date of Service: 03/04/21 Chief Complaint: Generalized Weakness Patient reporting constipation. Awaiting placement. Physical Examination - Vital Signs Temperature: 98.4 F Blood Pressure: 129/58 Pulse: 52 Respirations: 16 Pulse Ox (%): 98 - Physical Exam General: Alert, In no apparent distress, Oriented x3 HEENT: Mucous membr. moist/pink Neck: Supple Respiratory: Clear to auscultation bilaterally, Normal air movement Cardiovascular: No edema, Regular rate/rhythm, Normal S1 S2 Gastrointestinal: Soft and benign, Non-distended, No tenderness Musculoskeletal: No swelling Integumentary: No rashes Neurological: Other (No focal motor deficit) Assessment And Plan - Current Problems (Diagnosis) (1) Decreased oral intake Current Visit: Yes Status: Acute (2) Status post left knee replacement Current Visit: Yes Status: Acute (3) UTI (urinary tract infection) Onset Date: 06/29/17 Current Visit: No Status: Acute Qualifiers: Urinary tract infection type: site unspecified Hematuria presence: without hematuria Qualified Code(s): N39.0 - Urinary tract infection, site not specified (4) Chronic pain disorder Current Visit: No Status: Chronic (5) Anxiety disorder Onset Date: 09/09/17 Current Visit: No Status: Chronic Qualifiers: Anxiety disorder type: generalized anxiety disorder (6) Hypothyroidism Onset Date: 06/29/17 Current Visit: No Status: Chronic Qualifiers: Hypothyroidism type: acquired Qualified Code(s): E03.9 - Hypothyroidism, unspecified Physician Review Additional Text: Problem List UTI, cystitis due to ESBL Klebsiella Decreased oral intake ileus, improved s/p left knee replacement Generalized anxiety disorder chronic pain disorder hypothyroidism Continue IV meropenem for ESBL Klebsiella. About 8 more days to complete it. Reinsert PICC line and remove central line as possible. continue colace and miralax (added 03/01) PICC ordered - pt initially refused, then reportedly did not allow PICC team to position her arm for procedure Continue PT. Continue home medications for anxiety. Continue synthroid. Pain medication as needed Pt and do not want SNF, are hesitant to go home due to lack of care available, they are interested in LTAC. Social service is assisting with arrangement.
[2021-03-04] MEDS ORDERED: BISACODYL 10 MG RECTAL SUPP PR ONE (14:00)
--- NOTE | 2021-03-04 16:03 | P.DS ---
Admission Date: 02/22/21 Discharge Date: 03/04/21 Disposition: [facility] Discharge Condition: FAIR Reason for Admission: Generalized Weakness - Problems (1) Decreased oral intake Current Visit: Yes Status: Acute (2) Status post left knee replacement Current Visit: Yes Status: Acute (3) UTI (urinary tract infection) Onset Date: 06/29/17 Current Visit: No Status: Acute Qualifiers: Urinary tract infection type: site unspecified Hematuria presence: without hematuria Qualified Code(s): N39.0 - Urinary tract infection, site not specified (4) Chronic pain disorder Current Visit: No Status: Chronic (5) Anxiety disorder Onset Date: 09/09/17 Current Visit: No Status: Chronic Qualifiers: Anxiety disorder type: generalized anxiety disorder (6) Hypothyroidism Onset Date: 06/29/17 Current Visit: No Status: Chronic Qualifiers: Hypothyroidism type: acquired Qualified Code(s): E03.9 - Hypothyroidism, unspecified Brief History of Present Illness: 75-year-old woman with a history of chronic recurrent UTI, recent left knee replacement surgery, hypertension and B-cell lymphoma was brought to the emergency department due to decreased oral intake and generalized weakness. Workup in the emergency department reveal borderline low blood sugar of 70. No BAILEY, no leukocytosis. UA suggest the presence of UTI. No evidence of sepsis. Patient intermittently agitated and yells which is chronic. She was hospitalized for further management. Hospital Course: Patient admitted to the medical floor and started initially on IV Rocephin. Antibiotics was changed to IV meropenem based on history of ESBL UTI. Urine culture grew ESBL Klebsiella. Patient seen and evaluated by infectious disease recommended 2 weeks of IV meropenem due to recurrent UTI. She recently had knee replacement surgery done. Patient reported significant pain which was managed with Falls. Patient seen by PT and underwent sessions of therapy. Patient has been accepted to continue antibiotic treatment and rehab at [facility]. She is deemed stable for transfer. Vital Signs/Physical Exam: Temp Pulse Resp BP Pulse Ox 98.4 F 52 16 129/58 L 98 03/04/21 12:57 03/04/21 12:57 03/04/21 14:45 03/04/21 12:57 03/04/21 14:45 General: Alert, In no apparent distress, Oriented x3 HEENT: Mucous membr. moist/pink Neck: JVD not distended Respiratory: Clear to auscultation bilaterally, Normal air movement Cardiovascular: No edema, Regular rate/rhythm, Normal S1 S2 Gastrointestinal: Normal bowel sounds, Soft and benign, Non-distended, No tenderness Musculoskeletal: No swelling Integumentary: No rashes Neurological: Normal strength at 5/5 x4 extr Laboratory Data at Discharge: WBC 5.90 K/uL (4.3-10.9) 02/28/21 09:45 Hgb 9.5 g/dL (12.0-15.0) L 02/28/21 09:45 Hct 29.1 % (36.0-45.0) L 02/28/21 09:45 Plt Count 204 K/uL (152-406) 02/28/21 09:45 PT 11.9 SECONDS (9.5-12.5) 02/21/21 11:15 INR 1.03 02/21/21 11:15 Sodium 140 mmol/L (136-145) 03/01/21 05:55 Potassium 4.4 mmol/L (3.5-5.1) 03/01/21 05:55 BUN 14 mg/dL (7-18) 03/01/21 05:55 Creatinine 0.62 mg/dL (0.55-1.3) 03/01/21 05:55 Glucose 75 mg/dL (74-106) 03/01/21 05:55 Phosphorus 2.5 mg/dL (2.5-4.9) 02/26/21 05:00 Magnesium 2.0 mg/dL (1.8-2.4) 03/01/21 05:55 Total Bilirubin 0.3 mg/dL (0.2-1.0) 02/28/21 09:45 AST 8 U/L (15-37) L 02/28/21 09:45 ALT 7 U/L (12-78) L 02/28/21 09:45 Alkaline Phosphatase 110 U/L (45-117) 02/28/21 09:45 Lipase 32 U/L (73-393) L 02/21/21 11:15 Home Medications: Metoprolol Succinate [Toprol Xl*] 25 mg PO BID 02/21/21 Oxycodone HCl/Acetaminophen [Prolate 7.5-300 mg Tablet] 1 tab PO PRN PRN 02/21/21 Trazodone [Desyrel*] 150 mg PO BEDTIME 02/21/21 Venlafaxine HCl [Venlafaxine HCl ER] 75 mg PO DAILY 02/21/21 clonazePAM [Clonazepam] 1 mg PO BEDTIME 02/21/21 Docusate [Colace Cap*] 100 mg PO BID cap 03/04/21 Ensure Enlive 237 ml PO BID can 03/04/21 Ondansetron [Zofran (Odt)*] 4 mg PO Q6H PRN tab 03/04/21 Polyethyl Gly 3350 [Glycolax*] 17 gm PO DAILY udbot 03/04/21 Followup: OOT,OOT [Primary Care Provider] -
[2021-03-04 17:24] VITALS: BP 111/46; TEMP 98.6
[2021-03-04] MEDS: clonazePAM 1 MG TAB PO SCH (20:15)
== END 2021-03-04 20:37 | DRG 689 ==
LOC: ER 10:25 → ERHOLD 13:22 → 2ND 16:47 → OBSVTOIN 02-22 12:46
PROVIDERS: ADMIT Internal Medicine; ATTEND Internal Medicine
PROC: B5181ZA Fluoroscopy of Superior Vena Cava using Low Osmolar Contrast, Guidance (ICD-10-PCS; 2021-02-28)
PROC: 02HV33Z Insertion of Infusion Device into Superior Vena Cava, Percutaneous Approach (ICD-10-PCS; principal; 2021-02-28 08:00)
DX: N39.0 Urinary tract infection, site not specified (principal); G93.41 Metabolic encephalopathy; E43 Unspecified severe protein-calorie malnutrition; Z16.12 Extended spectrum beta lactamase (ESBL) resistance; K56.7 Ileus, unspecified; Z68.1 Body mass index [BMI] 19.9 or less, adult; I10 Essential (primary) hypertension; E03.9 Hypothyroidism, unspecified; K59.00 Constipation, unspecified; F41.1 Generalized anxiety disorder; E78.5 Hyperlipidemia, unspecified; B96.1 Klebsiella pneumoniae [K. pneumoniae] as the cause of diseases classified elsewhere; R52 Pain, unspecified; Z96.652 Presence of left artificial knee joint; Z79.890 Hormone replacement therapy; Z79.899 Other long term (current) drug therapy; Z90.710 Acquired absence of both cervix and uterus; Z90.49 Acquired absence of other specified parts of digestive tract; Z88.8 Allergy status to other drugs, medicaments and biological substances; Z98.84 Bariatric surgery status; Z20.822 Contact with and (suspected) exposure to COVID-19
CPT/HCPCS: 36415; 51702; 70450; 71045; 73700; 74018; 74250; 76000; 80048; 80076; 81003; 82947; 83690; 83735; 83880; 84100; 84132; 84145; 84439; 84443; 84484; 85025; 85610; 86140; 87040; 87077; 87086; 87088; 87186; 93005; 94760; 97110; 97112; 97116; 97162; 97530; 99284; G0378; J0690; J0696; J1100; J1644; J1650; J2185; J2270; J2405; J2704; J3010; J3475; J7040; J7042; U0003

== ENCOUNTER 2021-05-01 00:13 | Inpatient (IN) | payer OTHER, BC ==
[2021-05-01 01:27] LABS: Absolute Lymphocytes (CBC) 0.4 K/uL (0.7-4.9); Basophils % 0.3 % (0-1.3); Hematocrit 34.3 % (36.0-45.0); Lymphocytes % 5.5 % (15.3-44.8)
[2021-05-01 01:41] LABS: Protime INR 0.99
[2021-05-01] MEDS ORDERED: NA CHLORIDE 0.9% 500 ML ONE (01:41)
[2021-05-01 01:43] LABS: BUN Blood Urea Nitrogen 9 mg/dL (7-18); Bicarbonate 25 mmol/L (21-32); Glucose Level 97 mg/dL (74-106); Potassium 3.6 mmol/L (3.5-5.1); Sodium Level 144 mmol/L (136-145)
[2021-05-01 02:14] LABS: Urine Blood Trace-lysed (Negative); Urine Glucose Negative (Negative); Urine Protein Negative (Negative)
--- NOTE | 2021-05-01 02:56 | EDPHYS ---
Physician Documentation [facility] Name: Tina Padron Age: 75 yrs Sex: Female : 1945 Arrival Date: 05/01/2021 Time: 00:16 Bed 7 Private MD: ED Physician Chintan Ramírez HPI: 05/01 01:33 This 75 yrs old Female presents to ER via Wheelchair with complaints of fall rn , UTI. 01:33 Details of fall: The patient fell from a supine position, out of bed. Onset: The rn symptoms/episode began/occurred just prior to arrival. Associated injuries: The patient sustained injury to the low back. Severity of symptoms: At their worst the symptoms were mild, in the emergency department the symptoms are unchanged. The patient has experienced similar episodes in the past. The patient has not recently seen a physician. reports fell out of bed earlier, declined EMS transport, reports tailbone pain from fall. also reports weight loss over last month or so, not eating or drinking, no vomiting/diarrhea. feels patient has another "raging UTI" and reports some confusion recently. . Historical: - Allergies: 00:41 Compazine; bs2 00:41 Meclizine; bs2 - Home Meds: 00:41 aspirin 81 mg Oral TbEC 1 tab once daily [Active]; clonazepam 1 mg Oral tab 1 tab bs2 nightly [Active]; oxycodone-acetaminophen 7.5-325 mg Oral tab 1 tab every 6 hours [Active]; Uribel 118-10-40.8-36 mg Oral tab daily [Active]; Synthroid 88 mcg Oral tab 1 tab once daily [Active]; simvastatin 20 mg Oral tab 1 tab once daily [Active]; potassium chloride 20 mEq Oral TbER 1 tab 2 times per day [Active]; pantoprazole 20 mg Oral TbEC 1 tab once daily [Active]; omeprazole 40 mg Oral cpDR 1 cap once daily [Active]; meclizine 25 mg Oral tab 1 tab as needed [Active]; losartan 50 mg Oral tab 1 tab 2 times per day [Active]; Flomax 0.4 mg Oral cp24 1 cap once daily [Active]; Azo-Standard Oral as needed [Active]; - PMHx: 00:41 "shattered shoulder"; Anxiety; chronic uti; Hyperlipidemia; Hypertension; bs2 Hypothyroidism; spinal fractures; - PSHx: 00:41 Gastric Bypass; Knee; Shoulder; Hip; bs2 00:44 Total abdominal hysterectomy; bs2 - Immunization history:: Client reports receiving the 2nd dose of the Covid vaccine, Flu vaccine is up to date. - Social history:: Smoking status: Patient/guardian denies using tobacco, the patient reports quitting approximately 30 years ago. - Family history:: not pertinent. - Hospitalizations: : No recent hospitalization is reported. ROS: 01:33 Constitutional: Negative for fever, chills, and weight loss, Eyes: Negative for injury, rn pain, redness, and discharge, Neck: Negative for injury, pain, and swelling, Cardiovascular: Negative for chest pain, palpitations, and edema, Respiratory: Negative for shortness of breath, cough, wheezing, and pleuritic chest pain, Abdomen/GI: Negative for abdominal pain, nausea, vomiting, diarrhea, and constipation, Back: + lower back/tailbone injury and pain. MS/Extremity: Negative for injury and deformity, Skin: Negative for injury, rash, and discoloration, Neuro: Negative for headache, weakness, numbness, tingling, and seizure. Exam: 01:33 Constitutional: Thin female, no acute distress Head/Face: Normocephalic, atraumatic. apple turner: dry MM Neck: No midline tenderness Chest/axilla: Normal chest wall appearance and motion. Nontender with no deformity. No lesions are appreciated. Cardiovascular: Regular rate and rhythm. No pulse deficits. Respiratory: No increased work of breathing, no retractions or nasal flaring. Abdomen/GI: soft, mild suprapubic tenderness, no rebound Back: + painful ROM when turning to side but patient rolls herself, + mild tenderness over saccrum and coccyx. Skin: Warm, dry MS/ Extremity: Pulses equal, no cyanosis. Neurovascular intact. + mild pain with ROM left knee ( states normal since knee surger in december 2020). No gross deformity. No hip tenderness. Neuro: Awake and alert, GCS 15 Vital Signs: 00:32 BP 109 / 55; Pulse 70; Resp 19; Temp 99.1(O); Pulse Ox 100% ; Weight 45.36 kg (R); bs2 Height 5 ft. 4 in. (162.56 cm) (R); Pain 8/10; 01:00 BP 160 / 98; Pulse 50; Resp 18; Pulse Ox 100% on R/A; ea 02:00 BP 156 / 55; Pulse 60; Resp 18; Pulse Ox 99% on R/A; ea 04:24 BP 160 / 48; Pulse 50; Resp 18; Pulse Ox 100% ; ea 00:32 Body Mass Index 17.16 (45.36 kg, 162.56 cm) bs2 MDM: 00:21 Patient medically screened. rn 02:51 Differential diagnosis: abrasion, closed head injury, contusion, fracture, sprain, rn strain, UTI, dehydration. Data reviewed: vital signs, nurses notes, lab test result(s), radiologic studies, CT scan, and as a result, I will admit patient. Counseling: I had a detailed discussion with the patient and/or guardian regarding: the historical points, exam findings, and any diagnostic results supporting the discharge/admit diagnosis, lab results, radiology results, the need for further work-up and treatment in the hospital. Response to treatment: the patient's symptoms have mildly improved after treatment, and as a result, I will admit patient. Admission orders: after a detailed discussion of the patient's condition and case, the admit orders are written by me. ED course: Pt with questionable right 10th rib fracture, + UTI with cystitis, + constipation likely arising from dehydration. Will admit for IV abx, iv hydration to hospitalist service.. 05/01 00:30 Order name: Urine Culture rn 05/01 00:30 Order name: Urine Microscopic Only rn 05/01 00:30 Order name: CBC with Diff; Complete Time: 01:33 rn 05/01 00:30 Order name: Basic Metabolic Panel; Complete Time: 02:13 rn 05/01 00:30 Order name: Protime (+inr); Complete Time: 02:13 rn 05/01 00:30 Order name: Ptt, Activated; Complete Time: 02:13 rn 05/01 00:30 Order name: Blood Culture Adult (2) rn 05/01 00:30 Order name: Procalcitonin; Complete Time: 02:13 rn 05/01 00:30 Order name: CT Traumagram (Head C Spine CAP W Con) rn 05/01 02:13 Order name: Urine Dipstick-Ancillary; Complete Time: 02:51 EDMS 05/01 02:41 Order name: CREATININE WHOLE BLOOD; Complete Time: 02:51 EDMS 05/01 03:41 Order name: COVID-19 : Document "Date of Symptom Onset" if Symptomatic. mw2 05/01 05:03 Order name: SARS-COV-2 RT PCR EDMS 05/01 00:30 Order name: Urine Dipstick-Ancillary (obtain specimen); Complete Time: 02:09 rn 05/01 00:30 Order name: IV Start; Complete Time: 01:16 rn 05/01 00:30 Order name: EKG; Complete Time: 00:30 rn 05/01 00:30 Order name: EKG - Nurse/Tech; Complete Time: 01:17 rn 05/01 03:04 Order name: CONS Physician Consult EDMS Administered Medications: 01:36 Drug: NS 0.9% 500 ml Route: IV; Rate: bolus; Site: right hand; ea 02:30 Follow up: Response: No adverse reaction; IV Status: Completed infusion; IV Intake: ea 500ml 02:41 Drug: Rocephin (cefTRIAXone) 1 grams Route: IV; Rate: calculated rate; Site: right hand;ea 04:25 Follow up: Response: No adverse reaction; IV Status: Completed infusion ea 03:59 Drug: Ativan (LORazepam) 0.5 mg Route: IVP; Site: right hand; ea 04:25 Follow up: Response: No adverse reaction ea 04:07 Not Given (Patient Refused): Valium (diazepam) 5 mg PO once ea Disposition Summary: 05/01/21 02:55 Hospitalization Ordered Hospitalization Status: Inpatient Admission rn Provider: Bozena Piña rn Location: Telemetry/[facility] (Inpatient) rn Condition: Stable rn Problem: new rn Symptoms: have improved rn Bed/Room Type: Standard rn Room Assignment: 408(05/01/21 03:20) mw Diagnosis - Altered mental status, unspecified rn - UTI/ Urinary tract infection, site not specified rn - Acute cystitis rn - Dehydration rn - Constipation, unspecified rn Forms: - Medication Reconciliation Form rn - SBAR form rn Signatures: Dispatcher [facility] Juan, Vanessa, RN RN mw Ramírez, Chintan, MD MD rn Alfonso, Analy, RN RN ea Kirkpatrick, Kristina bs2 Corrections: (The following items were deleted from the chart) 03:20 02:55 rn mw
--- NOTE | 2021-05-01 02:56 | ER ---
Nurse's Notes [facility] Name: Tina Padron Age: 75 yrs Sex: Female : 1945 Arrival Date: 05/01/2021 Time: 00:16 Bed 7 Private MD: Diagnosis: Altered mental status, unspecified;UTI/ Urinary tract infection, site not specified;Acute cystitis;Dehydration;Constipation, unspecified Presentation: 05/01 00:32 Chief complaint: Spouse and/or significant other states: pt fell out of bed about 4pm, bs2 pt refused to go to ER with EMS. believes pt has UTI, pt states her tailbone area hurts, states pt is not thinking correctly. Coronavirus screen: Client denies travel out of the [place] in the last 14 days. At this time, the client does not indicate any symptoms associated with coronavirus-19. Ebola Screen: Patient negative for fever greater than or equal to 101.5 degrees Fahrenheit, and additional compatible Ebola Virus Disease symptoms Patient denies exposure to infectious person. Patient denies travel to an Ebola-affected area in the 21 days before illness onset. No symptoms or risks identified at this time. Initial Sepsis Screen: Does the patient meet any 2 criteria? Altered Mental Status. Yes Does the patient have a suspected source of infection? Yes: Dysuria/Frequency/Urgency/UTI. Risk Assessment: Do you want to hurt yourself or someone else? Patient reports no desire to harm self or others. Onset of symptoms was May 01, 2021. 00:32 Method Of Arrival: Wheelchair bs2 00:32 Acuity: TYLOR 3 bs2 Triage Assessment: 00:44 General: Appears distressed, slender, emaciated, malnourished, Behavior is agitated, bs2 inappropriate for age, uncooperative. Pain: Complains of pain in buttocks. GI: No deficits noted. No signs and/or symptoms were reported involving the gastrointestinal system. : Reports urgency, urinary frequency. Historical: - Allergies: 00:41 Compazine; bs2 00:41 Meclizine; bs2 - Home Meds: 00:41 aspirin 81 mg Oral TbEC 1 tab once daily [Active]; clonazepam 1 mg Oral tab 1 tab bs2 nightly [Active]; oxycodone-acetaminophen 7.5-325 mg Oral tab 1 tab every 6 hours [Active]; Uribel 118-10-40.8-36 mg Oral tab daily [Active]; Synthroid 88 mcg Oral tab 1 tab once daily [Active]; simvastatin 20 mg Oral tab 1 tab once daily [Active]; potassium chloride 20 mEq Oral TbER 1 tab 2 times per day [Active]; pantoprazole 20 mg Oral TbEC 1 tab once daily [Active]; omeprazole 40 mg Oral cpDR 1 cap once daily [Active]; meclizine 25 mg Oral tab 1 tab as needed [Active]; losartan 50 mg Oral tab 1 tab 2 times per day [Active]; Flomax 0.4 mg Oral cp24 1 cap once daily [Active]; Azo-Standard Oral as needed [Active]; - PMHx: 00:41 "shattered shoulder"; Anxiety; chronic uti; Hyperlipidemia; Hypertension; bs2 Hypothyroidism; spinal fractures; - PSHx: 00:41 Gastric Bypass; Knee; Shoulder; Hip; bs2 00:44 Total abdominal hysterectomy; bs2 - Immunization history:: Client reports receiving the 2nd dose of the Covid vaccine, Flu vaccine is up to date. - Social history:: Smoking status: Patient/guardian denies using tobacco, the patient reports quitting approximately 30 years ago. - Family history:: not pertinent. - Hospitalizations: : No recent hospitalization is reported. Screenin:14 Abuse screen: Denies threats or abuse. Nutritional screening: No deficits noted. ea Tuberculosis screening: No symptoms or risk factors identified. Fall Risk None identified. Assessment: 01:15 General: Appears uncomfortable, Behavior is agitated, combative. Neuro: Level of ea Consciousness is awake, alert, obeys commands, Oriented to person, place, time. Respiratory: Airway is patent Respiratory effort is even, unlabored, Respiratory pattern is regular, symmetrical. Derm: Skin is pink, warm \\T\\ dry. 02:43 Reassessment: (debo) [id number]. ea 03:30 Reassessment: Patient and/or family updated on plan of care and expected duration. Pain ea level reassessed. Patient is alert, oriented x 3, equal unlabored respirations, skin warm/dry/pink. 04:20 Reassessment: Patient and/or family updated on plan of care and expected duration. Pain ea level reassessed. Patient is alert, oriented x 3, equal unlabored respirations, skin warm/dry/pink. Vital Signs: 00:32 BP 109 / 55; Pulse 70; Resp 19; Temp 99.1(O); Pulse Ox 100% ; Weight 45.36 kg (R); bs2 Height 5 ft. 4 in. (162.56 cm) (R); Pain 8/10; 01:00 BP 160 / 98; Pulse 50; Resp 18; Pulse Ox 100% on R/A; ea 02:00 BP 156 / 55; Pulse 60; Resp 18; Pulse Ox 99% on R/A; ea 04:24 BP 160 / 48; Pulse 50; Resp 18; Pulse Ox 100% ; ea 00:32 Body Mass Index 17.16 (45.36 kg, 162.56 cm) bs2 ED Course: 00:16 Patient arrived in ED. bp1 00:21 Chintan Ramírez MD is Attending Physician. rn 00:41 Triage completed. bs2 00:46 Arm band placed on right wrist. bs2 01:13 Analy Alfonso RN is Primary Nurse. ea 01:14 Patient has correct armband on for positive identification. Bed in low position. Call ea light in reach. Side rails up X2. 01:14 Inserted saline lock: 22 gauge in right hand, using aseptic technique. Blood collected. ea Inserted saline lock: 22 gauge in left forearm, using aseptic technique. 01:36 CT Traumagram (Head C Spine CAP W Con) In Process Unspecified. EDMS 02:09 Urine Culture Sent. bs2 02:09 Urine Microscopic Only Sent. bs2 02:44 No provider procedures requiring assistance completed. Patient admitted, IV remains in ea place. 02:54 Bozena Piña MD is Hospitalizing Provider. rn Administered Medications: 01:36 Drug: NS 0.9% 500 ml Route: IV; Rate: bolus; Site: right hand; ea 02:30 Follow up: Response: No adverse reaction; IV Status: Completed infusion; IV Intake: ea 500ml 02:41 Drug: Rocephin (cefTRIAXone) 1 grams Route: IV; Rate: calculated rate; Site: right hand;ea 04:25 Follow up: Response: No adverse reaction; IV Status: Completed infusion ea 03:59 Drug: Ativan (LORazepam) 0.5 mg Route: IVP; Site: right hand; ea 04:25 Follow up: Response: No adverse reaction ea 04:07 Not Given (Patient Refused): Valium (diazepam) 5 mg PO once ea Intake: 02:30 IV: 500ml; Total: 500ml. ea Outcome: 02:55 Decision to Hospitalize by Provider. rn 04:20 Condition: stable ea 04:20 Instructed on the need for admit. 05:25 Admitted to Med/surg accompanied by nurse, via stretcher, with chart. bs2 05:31 Patient left the ED. mw2 Signatures: Dispatcher [employer] EDMS Chintan Ramírez MD MD rn Antunez, Elena, RN RN ea Westbrook, MyKena mw2 Janine Monroy Bridget bs2 Corrections: (The following items were deleted from the chart) 05:26 05:25 GI: bs2 bs2
[2021-05-01] MEDS ORDERED: CEFTRIAXONE/SWI 1gm 1 GM/10 ML SYR ONE (03:01)
[2021-05-01 03:03] LABS: Urine Bacteria LOADED /HPF (<20)
[2021-05-01 03:04] LABS: Urine Mucus 1+ /HPF (NONE SEEN)
[2021-05-01] MEDS ORDERED: DIAZEPAM 5 MG TABLET ONE (03:21)
--- NOTE | 2021-05-01 03:29 | P.HP ---
Certification for Inpatient Patient admitted to: Inpatient With expected LOS: >2 Midnights Patient will require the following post-hospital care: None Practitioner: I am a practitioner with admitting privileges, knowledge of patient current condition, hospital course, and medical plan of care. Services: Services provided to patient in accordance with Admission requirements found in Title 42 Section 412.3 of the Code of Federal Regulations Patient History Date of Service: 05/01/21 Reason for admission: UTI, fall History of Present Illness: Ms. Padron is a 75 yo F with history of HTN, recurrent UTI and B cell lymphoma brought in today for fall from bed. She reports injury to back. Per , she has been confused lately and this is a sign that she has a UTI. Also reports weight loss and poor appetite. He says she has been overmedicating with her percocet and klonopin, but will get angry if she tries to regulate her doses. CT scan with possible rib fractures. UA consistent with UTI, culture pending, has been positive for ESBL Klebsiella in the past. Allergies prochlorperazine [From Compazine] Allergy (Intermediate, Verified 02/21/21 18:05) PYSCHOSIS Prochlorperazine Maleate Allergy (Uncoded 02/21/21 18:05) Unknown Home Medications: Metoprolol Succinate [Toprol Xl*] 25 mg PO BID 02/21/21 Oxycodone HCl/Acetaminophen [Prolate 7.5-300 mg Tablet] 1 tab PO PRN PRN 02/21/21 Trazodone [Desyrel*] 150 mg PO BEDTIME 02/21/21 Venlafaxine HCl [Venlafaxine HCl ER] 75 mg PO DAILY 02/21/21 clonazePAM [Clonazepam] 1 mg PO BEDTIME 02/21/21 Docusate [Colace Cap*] 100 mg PO BID cap 03/04/21 Ensure Enlive 237 ml PO BID can 03/04/21 Ondansetron [Zofran (Odt)*] 4 mg PO Q6H PRN tab 03/04/21 Polyethyl Gly 3350 [Glycolax*] 17 gm PO DAILY udbot 03/04/21 - Past Medical/Surgical History Diabetic: No -: Hypertension -: Hypothyroidism -: B-cell lymphoma -: DDD/DJD of spine -: Chronic recurrent UTI requiring long-term antibiot -: shingles ( ) -: Vertigo -: Anxiety -: spinal fractures -: Hysterectomy -: Cholecystectomy, Gastric Bypass -: Gastric torsion repair -: Right Hip surgery -: Knee surgery -: Port-A-Cath placement and removal -: Right Shoulder Sx, LISA lens replacement -: TONSILLECTOMY Psychosocial/ Personal History: The patient is originally from [place]. She moved to the area in July. She is . She has 3 children. - Family History Mother -: Heart disease, Hypertension, Diabetes, Kidney disease Father -: Heart disease, Diabetes, Other (see notes) Notes: Alzheimers - Social History Alcohol use: No CD- Drugs: No Caffeine use: Yes Review of Systems 10-point ROS is otherwise unremarkable Musculoskeletal: Back Pain Neurological: Confusion Physical Examination - Physical Exam General: Alert, In no apparent distress, Confused HEENT: Atraumatic, PERRLA, Mucous membr. moist/pink, EOMI, Sclerae nonicteric Neck: Supple, 2+ carotid pulse no bruit, No LAD, Without JVD or thyroid abnormality Respiratory: Clear to auscultation bilaterally, Normal air movement Cardiovascular: Regular rate/rhythm, Normal S1 S2 Gastrointestinal: Normal bowel sounds, No tenderness Musculoskeletal: No tenderness Integumentary: No rashes Neurological: Normal speech, Normal strength at 5/5 x4 extr, Normal tone, Sensation intact, Cranial nerves 3-12 intact, Abnormal affect Lymphatics: No axilla or inguinal lymphadenopathy - Studies Laboratory Data (last 24 hrs) 05/01/21 01:10: PT 11.4, INR 0.99, APTT 29.2 05/01/21 01:10: Sodium 144, Potassium 3.6, BUN 9, Creatinine 0.59, Glucose 97 05/01/21 01:10: WBC 6.60, Hgb 11.2 L, Hct 34.3 L, Plt Count 161 Assessment and Plan - Problems (Diagnosis) (1) Altered mental status, unspecified Current Visit: No Status: Acute Qualifiers: Altered mental status type: unspecified Qualified Code(s): R41.82 - Altered mental status, unspecified (2) Chronic pain syndrome Current Visit: No Status: Chronic (3) Dehydration Current Visit: No Status: Acute (4) Fall Onset Date: ~03/25/18 Current Visit: No Status: Acute Qualifiers: Encounter type: initial encounter (5) UTI (urinary tract infection) Onset Date: 06/29/17 Current Visit: No Status: Acute Qualifiers: Urinary tract infection type: site unspecified Hematuria presence: without hematuria Qualified Code(s): N39.0 - Urinary tract infection, site not specified (6) History of B-cell lymphoma Onset Date: 06/29/17 Current Visit: No Status: Chronic (7) Hypertension Onset Date: 06/29/17 Current Visit: No Status: Chronic Qualifiers: Hypertension type: primary hypertension Qualified Code(s): I10 - Essential (primary) hypertension - Plan ID consulted continue IVF hydration IV ceftriaxone daily urine culture pending pain management as needed dietitian consulted physical therapy consulted DVT ppx Discharge Plan: Home Plan to discharge in: 48 Hours - Advance Directives Does patient have a Living Will: No Does patient have a Durable POA for Healthcare: No - Code Status/Comfort Care Code Status Assessed: Yes (full code ) Critical Care: No Time Spent Managing Pts Care (In Minutes): 70
[2021-05-01] MEDS ORDERED: LORazepam 2 MG/ML VIAL ONE (04:11)
[2021-05-01] MEDS ORDERED: ACETAMINOPHEN 500 MG TAB PO PRN (05:52)
[2021-05-01] MEDS ORDERED: ONDANSETRON 4 MG/2 ML VIAL IV PRN (05:52)
--- NOTE | 2021-05-01 06:18 | EKG ---
Test Date: 2021-05-01 Test Time: 00:53:58 [employer] Pellet[employer]: SHARON MEASUREMENT RESULTS: Intervals: Rate: 59 MA: 172 QRSD: 66 QT: 446 QTc: 441 [place]: P: 90 MA: 172 QRS: 27 T: 49 INTERPRETIVE STATEMENTS: Sinus bradycardia Junctional ST depression, probably abnormal Abnormal ECG Compared to ECG 02/21/2021 11:33:33 ST (T wave) deviation now present Sinus rhythm no longer present Electronically Signed On 05-01-21 06:17:36 CDT by Diaz Ramsay
[2021-05-01] MEDS: MORPHINE 2 MG/ML SYR IV PRN ×2 (06:50→21:05)
[2021-05-01] MEDS: NA CHLORIDE 0.9% 1,000 ML IV SCH ×2 (06:50→16:10)
[2021-05-01 07:40] LABS: Thyroid Stimulating Hormone 3.44 uIU/mL (0.360-3.740)
[2021-05-01 08:00] VITALS: BMI 17.2
[2021-05-01] MEDS: POTASSIUM CL SA 10 MEQ TAB PO ONE ×2 (09:28→10:22)
[2021-05-01] MEDS: KCL 20 MEQ/100 mL IVPB 20 MEQ/100 ML BAG IV SCH ×2 (10:00→10:18)
--- NOTE | 2021-05-01 12:00 | P.CNS ---
Date of Consult: 05/01/21 Chief Complaint: UTI, fall History of Present Illness: Patient is a 75-year-old female with a history of hypertension, recurrent urinary tract infection common B-cell lymphoma who is brought in today after sustaining a fall for bed. Patient reports pain to her back. Per the patient has been confused lately which is usually a sign and she has a urinary tract infection. Has been states that she has an over medicating herself with Percocet and Klonopin and however it gets angry P tracer right ladies medications. In the ED UA was consistent with urinary tract infection, urine cultures pending. Of note patient has an recently hospitalized in December in January this year due to ESBL Klebsiella. Patient confused, difficult to obtain history. Patient does state that she has diffuse abdominal pain as well as pyuria. Allergies prochlorperazine [From Compazine] Allergy (Intermediate, Verified 02/21/21 18:05) PYSCHOSIS Prochlorperazine Maleate Allergy (Uncoded 02/21/21 18:05) Unknown Home Medications: Oxycodone HCl/Acetaminophen [Prolate 7.5-300 mg Tablet] 1 tab PO PRN PRN 02/21/21 clonazePAM [Clonazepam] 1 mg PO BEDTIME 02/21/21 Gabapentin 1 tab PO BEDTIME 05/01/21 Levothyroxine [Synthroid*] 1 tab PO DAILY 05/01/21 hydroCHLOROthiazide [Hydrochlorothiazide] 1 cap PO DAILY 05/01/21 - Past Medical/Surgical History Diabetic: No -: Hypertension -: Hypothyroidism -: B-cell lymphoma -: DDD/DJD of spine -: Chronic recurrent UTI requiring long-term antibiot -: alex ( ) -: Vertigo -: Anxiety -: spinal fractures -: Hysterectomy -: Cholecystectomy, Gastric Bypass -: Gastric torsion repair -: Right Hip surgery -: Knee surgery -: Port-A-Cath placement and removal -: Right Shoulder Sx, LISA lens replacement -: TONSILLECTOMY Psychosocial/ Personal History: The patient is originally from [place]. She moved to the area in July. She is . She has 3 children. - Family History Mother Medical History: Heart disease, Hypertension, Diabetes, Kidney disease Father Medical History: Heart disease, Diabetes, Other (see notes) Notes: Alzheimers - Social History Smoking Status: Unknown if ever smoked Alcohol use: No CD- Drugs: No Caffeine use: Yes Place of Residence: Home Review of Systems 10-point ROS is otherwise unremarkable Physical Examination Temp Pulse Resp BP Pulse Ox 98.6 F 53 16 161/78 H 100 05/01/21 08:00 05/01/21 08:00 05/01/21 08:00 05/01/21 08:00 05/01/21 08:00 General: Confused, Obese HEENT: Atraumatic, Normocephalic Neck: Supple, 2+ carotid pulse no bruit, JVD not distended Respiratory: Clear to auscultation bilaterally, Normal air movement Cardiovascular: No edema, Normal pulses, Regular rate/rhythm Capillary refill: <2 Seconds Gastrointestinal: Normal bowel sounds, Hypoactive, Tenderness Musculoskeletal: No clubbing, No swelling Integumentary: No rashes, No breakdown Urinary: Ramires catheter Laboratory Data (last 24 hrs) 05/01/21 01:10: PT 11.4, INR 0.99, APTT 29.2 05/01/21 01:10: Sodium 144, Potassium 3.6, BUN 9, Creatinine 0.59, Glucose 97 05/01/21 01:10: WBC 6.60, Hgb 11.2 L, Hct 34.3 L, Plt Count 161 Conclusions/Impression: Assessment: -UTI with recurrent history of the ESBL Klebsiella urinary tract infection -poor oral intake -status post the left knee replaced -anemia Plan: -UA completed an EGD positive for nitrite. Awaiting a urinary culture. Blood cultures also pending. Patient hospitalized in December and January of this year for a ESBL Klebsiella urinary tract infections. Renal ultrasound ordered to assess for obstructive uropathy. Patient started on empiric Rocephin, continue until culture results are back. Recommending ascetic acid 0.25% bladder irrigation. -Continue monitor CBC and BMP -Continue monitor for signs infection Plan of care discussed with Dr. Coleman Thank you for consultation.
--- NOTE | 2021-05-01 12:38 | RAD REPORT ---
EXAM DESCRIPTION: CT HEAD WITHOUT IV CONTRAST CLINICAL HISTORY: Fall out of bed, back pain, AMS TECHNIQUE: Contiguous axial CT images obtained through the brain without IV contrast. Coronal and sa gittal reformatted images were provided. This exam was performed according to our departmental dose-optimization program, which includes autom ated exposure control, adjustment of the mA and/or kV according to patient size and/or use of iterati ve reconstruction technique. COMPARISON: 02/27/2021 FINDINGS: Brain: Mild cerebral atrophy and minimal bilateral periventricular and subcortical white m atter low-attenuation which is nonspecific and can be seen in the setting of chronic microvascular an giopathy again demonstrated. Excreted No significant white matter changes. No focal mass effect. Sanchez -white matter differentiation is within normal limits. No hemorrhage. Ventricles: No ventriculomegaly or midline shift. Extra-axial spaces: No extra-axial collection or hemorrhage. Paranasal sinuses and mastoid air cells: Right maxillary and sphenoid sinus mucous retention cyst/chela yps. Minimal right sphenoid sinus bubbly opacification. Vessels: There is atherosclerotic disease of the internal carotid arteries bilaterally. Bones: Unremarkable Soft tissues: Unremarkable EXAM DESCRIPTION: CT CERVICAL SPINE WITHOUT IV CONTRAST CLINICAL HISTORY: Fall out of bed, back pain, AMS TECHNIQUE: Contiguous axial CT images obtained through the cervical spine without IV contrast. Coron al and sagittal reformatted images also provided. This exam was performed according to our departmental dose-optimization program, which includes autom ated exposure control, adjustment of the mA and/or kV according to patient size and/or use of iterati ve reconstruction technique. COMPARISON: 11/20/2020 FINDINGS: Vertebra: No acute fracture or subluxation. Disc spaces: Mild to moderate multilevel disc degeneration, small anterior and uncovertebral osteophy maureen and bilateral facet arthropathy, right greater than left. No canal stenosis. Prevertebral soft tissues: Unremarkable EXAM DESCRIPTION: CT CHEST WITH IV CONTRAST CLINICAL HISTORY: Fall out of bed, back pain, AMS TECHNIQUE: Contiguous axial images obtained through the chest following the uneventful administratio n of IV contrast. Coronal and sagittal reformatted images provided. This exam was performed according to our departmental dose-optimization program, which includes autom ated exposure control, adjustment of the mA and/or kV according to patient size and/or use of iterati ve reconstruction technique. COMPARISON: 11/20/2020 FINDINGS: Artifacts: Motion artifact degrades image quality. Lungs: No focal consolidation. Airways are patent. Pleura: Trace right effusion. No pneumothorax. Heart and pericardium: The heart is normal in size. Coronary artery calcification. No pericardial eff usion. Mediastinum and marjan: No pathologically enlarged lymph nodes. Lower neck and chest wall: Unremarkable Vessels: Minimal atherosclerotic disease. No thoracic aortic aneurysm. Bones: Multilevel spondylosis. Remote right 9th through 12th rib fractures again demonstrated. Questi onable superimposed acute fracture at the right posterior medial 10th rib best seen on sagittal image s. EXAM DESCRIPTION: CT ABDOMEN PELVIS WITH IV CONTRAST CLINICAL HISTORY: Fall out of bed, back pain, AMS TECHNIQUE: Contiguous axial images obtained through the abdomen and pelvis following the uneventful administration of IV contrast. Coronal and sagittal reformatted images were provided. This exam was performed according to our departmental dose-optimization program, which includes autom ated exposure control, adjustment of the mA and/or kV according to patient size and/or use of iterati ve reconstruction technique. COMPARISON: 11/20/2020 FINDINGS: Artifacts: Motion artifact degrades image quality. Liver: Unremarkable Gallbladder and biliary system: Prior cholecystectomy. Pancreas: Moderate pancreatic parenchymal atrophy. Spleen: Unremarkable Adrenals: Unremarkable Kidneys: Normal renal cortical enhancement. Bilateral renal cysts without significant interval change . Index cyst at the lateral midpole on the right measures 4.6 cm. No calculi. No hydronephrosis. Bowel: Prior gastric bypass. Moderate stool within the distal large bowel. Fecal loading in the recta l vault. Mild rectal wall thickening with perirectal and presacral edema. No obstruction. Appendix: Normal caliber appendix. No findings to suggest acute appendicitis. Urinary bladder: Mild circumferential urinary bladder wall thickening. Reproductive: Prior hysterectomy. No adnexal mass. Lymph nodes: No pathologically enlarged lymph nodes. Peritoneum: Small amount of free fluid in the pelvis. No free air. Vessels: Mild to moderate atherosclerotic disease. No abdominal aortic aneurysm. Abdominal wall: Small fat-containing umbilical hernia. Left gluteal pulse generator. Lead terminate i n the right presacral region. Bones: Multilevel spondylosis. Remote L1 compression fracture and right L1-L3 transverse process frac tures. Again demonstrated. Prior right femoral gamma nail fixation. Interval healing of the left femo ral greater trochanter fracture. No acute fracture. IMPRESSION: CT HEAD: 1. No acute intracranial or extra-axial abnormality. 2. Other findings as above. CT CERVICAL SPINE: No acute fracture or subluxation. CT CHEST: 1. Questionable superimposed acute fracture at the right posterior medial 10th rib. 2. Trace right pleural effusion. 3. Other findings as above. CT ABDOMEN AND PELVIS: 1. Allowing for motion artifact, no evidence for hollow or solid organ injury. 2. Fecal loading in the rectal vault. There is mild rectal wall thickening with mild perirectal and presacral edema. This may be related to fecal impaction. Early stercoral colitis is not entirely exc luded. 3. Mild circumferential urinary bladder wall thickening. Please correlate clinically for cystitis. 4. Other findings as above. Electronically signed by: Deborah Mojica MD 05/01/2021 2:32 AM CDT Due to temporary technical issues with the PACS/Fluency reporting system, reports are being signed by the in house radiologist without review as a courtesy to ensure prompt reporting. The interpreting r adiologist is fully responsible for the content of the report.
[2021-05-01] MEDS ORDERED: ENSURE ENLIVE 237 ML CAN PO SCH (15:00)
[2021-05-01] MEDS ORDERED: ACETAMINOPHEN PO PRN (17:11)
[2021-05-01] MEDS ORDERED: OXYCODONE HCL PO PRN (17:11)
--- NOTE | 2021-05-01 17:11 | P.PN ---
Date of Service: 05/01/21 Patient currently has no complain. She is awake and alert. UTI Metabolic encephalopathy. Plan: Continue IV Rocephin Follow urine culture Infectious disease input appreciated. Continue other home medications.
[2021-05-01] MEDS: clonazePAM 1 MG TAB PO SCH (22:18)
[2021-05-01] MEDS: GABAPENTIN 300 MG CAP PO SCH (22:18)
[2021-05-02] MEDS ORDERED: CEFTRIAXONE 1 GM/NS 50 ML 1 GM/50 ML BAG IV SCH (03:00)
[2021-05-02] MEDS: NA CHLORIDE 0.9% 1,000 ML IV SCH ×4 (04:36→21:52)
[2021-05-02] MEDS: CEFTRIAXONE/SWI 1gm 1 GM/10 ML SYR IV SCH (04:36)
[2021-05-02 05:25] LABS: ALT/SGPT 13 U/L (12-78); AST/SGOT 13 U/L (15-37); Alkaline Phosphatase 96 U/L (45-117); BUN Blood Urea Nitrogen 5 mg/dL (7-18); Bicarbonate 25 mmol/L (21-32); Bilirubin Total 0.4 mg/dL (0.2-1.0); Glucose Level 70 mg/dL (74-106); HDL Cholesterol 61 mg/dL (40-60); LDL Cholesterol, Calculated 52 (<130); Phosphorus 2.6 mg/dL (2.5-4.9); Potassium 3.2 mmol/L (3.5-5.1); Protein, Total 3.9 g/dL (6.4-8.2); Sodium Level 146 mmol/L (136-145)
[2021-05-02 05:26] LABS: Magnesium 1.4 mg/dL (1.8-2.4)
[2021-05-02] MEDS ORDERED: Magnesium Sulfate 2gm IVPB 2 G/50 ML BAG IV ONE (05:30)
[2021-05-02] MEDS ORDERED: POTASSIUM CL SA 10 MEQ TAB PO ONE (05:35)
[2021-05-02] MEDS: LEVOTHYROXINE SOD 0.075 MG TAB PO SCH (06:04)
[2021-05-02] MEDS: hydroCHLOROthiazide 12.5 MG CAP PO SCH (08:51)
[2021-05-02] MEDS: MORPHINE 2 MG/ML SYR IV PRN ×3 (08:52→18:01)
[2021-05-02] MEDS ORDERED: HOME MED 1 EA UNK (Hydrochlorothiazide [Hydrochlorothiazide] 12.5 MG Tablet) PO SCH (09:00)
--- NOTE | 2021-05-02 13:24 | P.PN ---
Subjective Date of Service: 05/02/21 Chief Complaint: UTI, fall No new complain. Patient is emotionally labile. feels her mental status improved. Patient is alert and oriented x4. Physical Examination - Vital Signs Temperature: 97.0 F Blood Pressure: 110/51 Pulse: 53 Respirations: 18 Pulse Ox (%): 95 - Physical Exam General: Alert, In no apparent distress, Oriented x3 HEENT: Mucous membr. moist/pink Neck: JVD not distended Respiratory: Clear to auscultation bilaterally, Normal air movement Cardiovascular: No edema, Regular rate/rhythm, Normal S1 S2 Gastrointestinal: Soft and benign, Non-distended Musculoskeletal: No swelling Integumentary: No rashes Neurological: Normal strength at 5/5 x4 extr, Cranial nerves 3-12 intact Assessment And Plan - Current Problems (Diagnosis) (1) Behavioral disorder Current Visit: Yes Status: Acute (2) UTI (urinary tract infection) Onset Date: 06/29/17 Current Visit: No Status: Acute Qualifiers: Urinary tract infection type: site unspecified Hematuria presence: without hematuria Qualified Code(s): N39.0 - Urinary tract infection, site not specified (3) Anxiety disorder Onset Date: 09/09/17 Current Visit: No Status: Chronic Qualifiers: Anxiety disorder type: generalized anxiety disorder (4) Chronic pain disorder Current Visit: No Status: Chronic (5) Severe protein-calorie malnutrition Current Visit: Yes Status: Acute - Plan Continue IV Rocephin. Follow urine culture Patient has a history of MDR bacteria. Infectious disease input appreciated. Outpatient antibiotic therapy per infectious disease. Continue antianxiety medications. Encourage feeding. Continue PT. Increase activity as tolerated.
[2021-05-02] MEDS ORDERED: ACETAMINOPHEN PO PRN (14:00)
[2021-05-02] MEDS ORDERED: OXYCODONE HCL PO PRN (14:00)
[2021-05-02 17:51] LABS: Magnesium 2.2 mg/dL (1.8-2.4); Potassium 4.3 mmol/L (3.5-5.1)
[2021-05-02] MEDS: GABAPENTIN 300 MG CAP PO SCH (20:25)
[2021-05-02] MEDS: clonazePAM 1 MG TAB PO SCH (20:25)
[2021-05-02 20:29] LABS: Absolute Lymphocytes (CBC) 0.6 K/uL (0.7-4.9); Basophils % 0.7 % (0-1.3); Hematocrit 30.5 % (36.0-45.0); MPV 8.8 fL (7.6-11.3); RBC Red Blood Cell Count 3.36 M/uL (3.86-4.86)
--- NOTE | 2021-05-02 20:46 | RAD REPORT ---
EXAM DESCRIPTION: US - Renal Ultrasound-Complete - 05/02/2021 7:42 pm CLINICAL HISTORY: recurent UTI Flank pain COMPARISON: 02/25/2020 FINDINGS: Both kidneys demonstrate multiple benign appearing renal cysts, without worrisome change s ellen comparative ultrasound. The right kidney measures 9.4 x 4.9 x 4.5 cm. No hydronephrosis, focal mass or perinephric fluid. The left kidney measures 10.2 x 5.8 x 4.8 cm. No hydronephrosis, focal mass or perinephric fluid. The urinary bladder is incompletely distended without gross abnormality seen. IMPRESSION: Benign bilateral renal cysts, otherwise negative study.
[2021-05-02 21:57] LABS: Blood Morphology Comment NOTED (NOT SEEN); Platelet Estimate ADEQ
[2021-05-02 21:58] LABS: Burr Cells 1+
[2021-05-03] MEDS: NA CHLORIDE 0.9% 1,000 ML IV SCH ×3 (01:53→11:02)
[2021-05-03] MEDS: CEFTRIAXONE/SWI 1gm 1 GM/10 ML SYR IV SCH (02:09)
[2021-05-03] MEDS: MORPHINE 2 MG/ML SYR IV PRN ×4 (04:12→21:21)
[2021-05-03] MEDS: LEVOTHYROXINE SOD 0.075 MG TAB PO SCH (05:38)
[2021-05-03] MEDS: hydroCHLOROthiazide 12.5 MG CAP PO SCH (07:43)
[2021-05-03] MEDS: LIDOCAINE 4% PATCH TOP SCH (11:39)
[2021-05-03] MEDS ORDERED: Meropenem 500 MG/100 ML BAG IV SCH (14:15)
--- NOTE | 2021-05-03 14:57 | P.PN ---
Subjective Date of Service: 05/03/21 Chief Complaint: UTI, fall Patient complaining of knee pain Patient is alert and oriented x4. Urine culture is growing ESBL E. coli. Physical Examination - Vital Signs Temperature: 98.1 F Blood Pressure: 162/68 Pulse: 50 Respirations: 20 Pulse Ox (%): 99 - Physical Exam General: Alert, In no apparent distress HEENT: Mucous membr. moist/pink Respiratory: Clear to auscultation bilaterally, Normal air movement Cardiovascular: No edema, Regular rate/rhythm, Normal S1 S2 Gastrointestinal: Soft and benign, Non-distended Integumentary: No rashes Neurological: Normal strength at 5/5 x4 extr - Studies Microbiology Data (last 24 hrs): 05/01/21 02:09 Catheterized Urine [place] Count - Final >100,000 CFU/ML. 05/01/21 02:09 Catheterized Urine - Final Escherichia Coli Esbl Assessment And Plan - Current Problems (Diagnosis) (1) Behavioral disorder Current Visit: Yes Status: Acute (2) UTI (urinary tract infection) Onset Date: 06/29/17 Current Visit: No Status: Acute Qualifiers: Urinary tract infection type: site unspecified Hematuria presence: without hematuria Qualified Code(s): N39.0 - Urinary tract infection, site not specified (3) Anxiety disorder Onset Date: 09/09/17 Current Visit: No Status: Chronic Qualifiers: Anxiety disorder type: generalized anxiety disorder (4) Chronic pain disorder Current Visit: No Status: Chronic (5) Severe protein-calorie malnutrition Current Visit: Yes Status: Acute - Plan Change antibiotics to IV meropenem. PICC line requested for outpatient IV antibiotics Infectious disease is following Continue antianxiety medications. Encourage feeding. Continue PT. Lidocaine patch for knee pain. Increase activity as tolerated.
--- NOTE | 2021-05-03 15:46 | RAD REPORT ---
EXAM DESCRIPTION: RAD - Chest Single View - 05/03/2021 3:14 pm CLINICAL HISTORY: PICC line placement COMPARISON: Portable February 28 FINDINGS: Portable chest was obtained following placement of a left upper extremity PICC line. The c atheter tip is in the inferior aspect of the right atrium. Retraction of the PICC line 5-[address] the tip within the SVC.
[2021-05-03] MEDS: Meropenem 500 MG/100 ML BAG IV SCH (16:11)
[2021-05-03] MEDS: GABAPENTIN 300 MG CAP PO SCH (21:14)
[2021-05-03] MEDS: clonazePAM 1 MG TAB PO SCH (21:16)
[2021-05-04] MEDS: NA CHLORIDE 0.9% 1,000 ML IV SCH ×3 (00:06→21:35)
[2021-05-04] MEDS: Meropenem 500 MG/100 ML BAG IV SCH ×2 (02:15→13:33)
[2021-05-04 03:43] LABS: Absolute Lymphocytes (CBC) 0.6 K/uL (0.7-4.9); Basophils % 0.9 % (0-1.3); Hematocrit 27.2 % (36.0-45.0); Lymphocytes % 10.8 % (15.3-44.8); MPV 8.8 fL (7.6-11.3); RBC Red Blood Cell Count 3.02 M/uL (3.86-4.86)
[2021-05-04 03:50] LABS: BUN Blood Urea Nitrogen 6 mg/dL (7-18); Bicarbonate 23 mmol/L (21-32); Glucose Level 72 mg/dL (74-106); Potassium 3.8 mmol/L (3.5-5.1); Sodium Level 142 mmol/L (136-145)
[2021-05-04] MEDS: MORPHINE 2 MG/ML SYR IV PRN ×4 (04:00→23:09)
[2021-05-04] MEDS ORDERED: POTASSIUM CL SA 10 MEQ TAB PO ONE (05:34)
[2021-05-04] MEDS: LEVOTHYROXINE SOD 0.075 MG TAB PO SCH (05:57)
[2021-05-04] MEDS: LIDOCAINE 4% PATCH TOP SCH (08:52)
[2021-05-04] MEDS: hydroCHLOROthiazide 12.5 MG CAP PO SCH (08:53)
--- NOTE | 2021-05-04 09:50 | P.PN ---
Subjective Date of Service: 05/04/21 Chief Complaint: UTI, fall Patient seen examined at bedside, states that she wants to go home. She does not like that the nurses common every few hr to give her medication.... Left arm PICC line placed Review of Systems 10-point ROS is otherwise unremarkable Physical Examination - Vital Signs Temperature: 96.8 F Blood Pressure: 154/67 Pulse: 52 Respirations: 17 Pulse Ox (%): 95 - Studies Microbiology Data (last 24 hrs): 05/01/21 02:09 Catheterized Urine [place] Count - Final >100,000 CFU/ML. 05/01/21 02:09 Catheterized Urine - Final Escherichia Coli Esbl Assessment And Plan - Plan Physical exam: General: Confused, Obese HEENT: Atraumatic, Normocephalic Neck: Supple, 2+ carotid pulse no bruit, JVD not distended Respiratory: Clear to auscultation bilaterally, Normal air movement Cardiovascular: No edema, Normal pulses, Regular rate/rhythm Capillary refill: <2 Seconds Gastrointestinal: Normal bowel sounds, Hypoactive, Tenderness Musculoskeletal: No clubbing, No swelling Integumentary: No rashes, No breakdown Urinary: Ramires catheter Conclusions/Impression: Assessment: -UTI with 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 Patient hospitalized in December and January of this year for a ESBL Klebsiella urinary tract infections. Renal ultrasound showed bilateral benign renal cysts, no obstructive uropathy noted. Continue meropenem with an end date of 05/10. Left arm PICC line placed. -Continue monitor CBC and BMP -Continue monitor for signs infection Plan of care discussed with Dr. Coleman Thank you for consultation.
--- NOTE | 2021-05-04 16:36 | P.PN ---
Subjective Date of Service: 05/04/21 Chief Complaint: UTI, fall Patient complaining of knee pain and requesting her home pain medications to be given every 4 hrs. Patient is alert and oriented x4. Physical Examination - Vital Signs Temperature: 97.6 F Blood Pressure: 119/55 Pulse: 57 Respirations: 16 Pulse Ox (%): 97 - Physical Exam General: Alert, In no apparent distress HEENT: Mucous membr. moist/pink Neck: JVD not distended Respiratory: Clear to auscultation bilaterally, Normal air movement Cardiovascular: No edema, Regular rate/rhythm, Normal S1 S2 Gastrointestinal: Soft and benign, Non-distended, No tenderness Musculoskeletal: Swelling (Left knee.) Neurological: Normal strength at 5/5 x4 extr Assessment And Plan - Current Problems (Diagnosis) (1) Behavioral disorder Current Visit: Yes Status: Acute (2) UTI (urinary tract infection) Onset Date: 06/29/17 Current Visit: No Status: Acute Qualifiers: Urinary tract infection type: site unspecified Hematuria presence: without hematuria Qualified Code(s): N39.0 - Urinary tract infection, site not specified (3) Anxiety disorder Onset Date: 09/09/17 Current Visit: No Status: Chronic Qualifiers: Anxiety disorder type: generalized anxiety disorder (4) Chronic pain disorder Current Visit: No Status: Chronic (5) Severe protein-calorie malnutrition Current Visit: Yes Status: Acute - Plan Continue IV meropenem. PICC line requested for outpatient IV antibiotics Infectious disease input appreciated. Patient plan for 7 days IV Invanz. Continue antianxiety medications. Continue home pain medications. Encourage feeding. Continue PT. Lidocaine patch for knee pain. Increase activity as tolerated.
[2021-05-04] MEDS: GABAPENTIN 300 MG CAP PO SCH (23:09)
[2021-05-04] MEDS: clonazePAM 1 MG TAB PO SCH (23:09)
[2021-05-05] MEDS: Meropenem 500 MG/100 ML BAG IV SCH ×2 (02:22→15:23)
[2021-05-05] MEDS: MORPHINE 2 MG/ML SYR IV PRN ×2 (05:55→11:50)
[2021-05-05] MEDS: LEVOTHYROXINE SOD 0.075 MG TAB PO SCH (05:56)
[2021-05-05 06:18] LABS: Absolute Lymphocytes (CBC) 0.6 K/uL (0.7-4.9); Basophils % 0.7 % (0-1.3); Hematocrit 24.5 % (36.0-45.0); MPV 8.2 fL (7.6-11.3); RBC Red Blood Cell Count 2.77 M/uL (3.86-4.86)
[2021-05-05 06:29] LABS: BUN Blood Urea Nitrogen 8 mg/dL (7-18); Bicarbonate 26 mmol/L (21-32); Glucose Level 72 mg/dL (74-106); Potassium 4.1 mmol/L (3.5-5.1); Sodium Level 145 mmol/L (136-145)
--- NOTE | 2021-05-05 06:54 | P.PN ---
Subjective Date of Service: 05/05/21 Chief Complaint: UTI, fall Subjective: No new changes (L knee pain, tearful - does not want to be discharged home, feels unsafe, states will agree to anything but thinks he is incapable of giving the IV antibiotic, hgb down today denies any recent bleeding. low appetite) Review of Systems 10-point ROS is otherwise unremarkable Physical Examination - Vital Signs Temperature: 97.1 F Blood Pressure: 148/65 Pulse: 53 Respirations: 17 Pulse Ox (%): 96 Assessment & Plan Physician Review Additional Text: Physical Exam General: Alert, In no apparent distress, tearful HEENT: Mucous membr. moist/pink, normal conjunctiva Respiratory: Clear to auscultation bilaterally, Normal air movement Cardiovascular: No edema, Regular rate/rhythm, Normal S1 S2 Gastrointestinal: Soft, nontender, nondistended Musculoskeletal: L knee with ~1 cm diameter ulceration, shallow, no purulent drainage Neurological: Normal strength at 5/5 x4 extr Problem List UTI, cystitis; ESBL e coli Behavioral disorder, Anxiety Chronic pain disorder Severe protein-calorie malnutrition acute on chronic anemia PICC placed. continue IV meropenem - needs abx through 05/10, ID consulted Continue antianxiety medications. Continue home pain medications. Encourage PO intake / ensure Continue PT. local wound care and Lidocaine patch for knee pain stop IV morphine Increase activity as tolerated. anemia - partly dilutional, as patient has received quite a bit of IVF, will dc IVF, repeat Hgb in AM, no evidence of bleeding patient has required blood transfusion in the past Dispo: anticipate dc home with HH / IV antibiotics in 24hrs Time Spent Managing Pts Care (In Minutes): 45
[2021-05-05] MEDS: hydroCHLOROthiazide 12.5 MG CAP PO SCH (08:23)
[2021-05-05] MEDS: LIDOCAINE 4% PATCH TOP SCH (08:24)
--- NOTE | 2021-05-05 11:44 | P.PN ---
Subjective Date of Service: 05/05/21 Chief Complaint: UTI, fall Patient seen examined at bedside, most recent labs showed drop in hemoglobin. Review of Systems 10-point ROS is otherwise unremarkable Physical Examination - Vital Signs Temperature: 98.1 F Blood Pressure: 112/54 Pulse: 68 Respirations: 18 Pulse Ox (%): 94 - Studies Laboratory Last Values WBC 6.60 K/uL (4.3-10.9) 05/01/21 01:10 RBC 3.80 M/uL (3.86-4.86) L 05/01/21 01:10 Hgb 11.2 g/dL (12.0-15.0) L 05/01/21 01:10 Hct 34.3 % (36.0-45.0) L 05/01/21 01:10 MCV 90.3 fL (80-100) 05/01/21 01:10 MCH 29.4 pg (27.0-35.0) 05/01/21 01:10 MCHC 32.6 g/dL (32.0-36.0) 05/01/21 01:10 RDW 18.5 % (12.1-15.2) H 05/01/21 01:10 Plt Count 161 K/uL (152-406) 05/01/21 01:10 MPV 9.0 fL (7.6-11.3) 05/01/21 01:10 Neutrophils % 87.2 % (41.7-73.7) H 05/01/21 01:10 Lymphocytes % 5.5 % (15.3-44.8) L 05/01/21 01:10 Monocytes % 6.3 % (3.3-12.3) 05/01/21 01:10 Eosinophils % 0.7 % (0-4.4) 05/01/21 01:10 Basophils % 0.3 % (0-1.3) 05/01/21 01:10 Absolute Neutrophils 5.8 K/uL (1.8-8.0) 05/01/21 01:10 Absolute Lymphocytes 0.4 K/uL (0.7-4.9) L 05/01/21 01:10 Absolute Monocytes 0.4 K/uL (0.1-1.3) 05/01/21 01:10 Absolute Eosinophils 0.0 K/uL (0-0.5) 05/01/21 01:10 Absolute Basophils 0.0 K/uL (0-0.5) 05/01/21 01:10 PT 11.4 SECONDS (9.5-12.5) 05/01/21 01:10 INR 0.99 05/01/21 01:10 APTT 29.2 SECONDS (24.3-36.9) 05/01/21 01:10 Sodium 144 mmol/L (136-145) 05/01/21 01:10 Potassium 3.6 mmol/L (3.5-5.1) 05/01/21 01:10 Chloride 112 mmol/L (98-107) H 05/01/21 01:10 Carbon Dioxide 25 mmol/L (21-32) 05/01/21 01:10 BUN 9 mg/dL (7-18) 05/01/21 01:10 Creatinine 0.59 mg/dL (0.55-1.3) 05/01/21 01:10 Whole Bld Creatinine 0.7 mg/dL (0.6-1.3) 05/01/21 00:08 Estimated GFR > 90 mL/min (=/>90) 05/01/21 01:10 Glucose 97 mg/dL (74-106) 05/01/21 01:10 Calcium 8.2 mg/dL (8.5-10.1) L 05/01/21 01:10 Procalcitonin < 0.05 ng/mL (<0.050) 05/01/21 01:10 Urine pH 6.0 (5.0-7.0) 05/01/21 02:11 Ur Specific [place] 1.010 (1.005-1.030) 05/01/21 02:11 Glucose (UA)(Auto) Negative (Negative) 05/01/21 02:11 Urine Ketones Negative (Negative) 05/01/21 02:11 Urine Blood Trace-lysed (Negative) H 05/01/21 02:11 Urine Nitrite Positive (Negative) H 05/01/21 02:11 Ur Leukocyte Esterase 1+ (Negative) H 05/01/21 02:11 Urine RBC 5-10 /HPF (NONE SEEN) H 05/01/21 02:09 Urine WBC >50 /HPF (<5) H 05/01/21 02:09 Ur Squamous Epith Cells 5-10 /HPF (NONE SEEN) H 05/01/21 02:09 Urine Bacteria Loaded /HPF (<20) H 05/01/21 02:09 Urine Mucus 1+ /HPF (NONE SEEN) 05/01/21 02:09 Urine Culture Reflexed Not needed 05/01/21 02:09 Urine Total Protein Negative (Negative) 05/01/21 02:11 Assessment And Plan - Plan Physical exam: General: Confused, Obese HEENT: Atraumatic, Normocephalic Neck: Supple, 2+ carotid pulse no bruit, JVD not distended Respiratory: Clear to auscultation bilaterally, Normal air movement Cardiovascular: No edema, Normal pulses, Regular rate/rhythm Capillary refill: <2 Seconds Gastrointestinal: Normal bowel sounds, Hypoactive, Tenderness Musculoskeletal: No clubbing, No swelling Integumentary: No rashes, No breakdown Urinary: Ramires catheter Conclusions/Impression: Assessment: -UTI with 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 Patient hospitalized in December and January of this year for a ESBL Klebsiella urinary tract infections. Renal ultrasound showed bilateral benign renal cysts, no obstructive uropathy noted. Continue meropenem with an end date of 05/10. Left arm PICC line placed. -Continue monitor CBC and BMP -Continue monitor for signs infection Plan of care discussed with Dr. Coleman Thank you for consultation.
[2021-05-05] MEDS: GABAPENTIN 300 MG CAP PO SCH (20:53)
[2021-05-05] MEDS: clonazePAM 1 MG TAB PO SCH (20:53)
[2021-05-05] MEDS: ENSURE ENLIVE 237 ML CAN PO SCH (20:58)
[2021-05-05] MEDS: Oxycodone HCl/Acetaminophen 1 TAB TAB PO PRN (20:58)
[2021-05-06] MEDS: Meropenem 500 MG/100 ML BAG IV SCH ×2 (02:40→14:13)
[2021-05-06 03:57] LABS: Absolute Lymphocytes (CBC) 0.6 K/uL (0.7-4.9); Basophils % 1.4 % (0-1.3); Lymphocytes % 17.4 % (15.3-44.8); MPV 8.8 fL (7.6-11.3); RBC Red Blood Cell Count 2.79 M/uL (3.86-4.86)
[2021-05-06 04:33] LABS: ALT/SGPT 12 U/L (12-78); AST/SGOT 12 U/L (15-37); Albumin 1.6 g/dL (3.4-5.0); Alkaline Phosphatase 87 U/L (45-117); BUN Blood Urea Nitrogen 11 mg/dL (7-18); Bicarbonate 26 mmol/L (21-32); Bilirubin Total 0.2 mg/dL (0.2-1.0); Glucose Level 71 mg/dL (74-106); Magnesium 1.6 mg/dL (1.8-2.4); Potassium 3.9 mmol/L (3.5-5.1); Protein, Total 3.8 g/dL (6.4-8.2); Sodium Level 143 mmol/L (136-145)
[2021-05-06] MEDS: LEVOTHYROXINE SOD 0.075 MG TAB PO SCH (06:10)
[2021-05-06] MEDS ORDERED: MAGNESIUM SULFATE 1 gm IVPB 1 GM/100 ML BAG IV ONE (07:54)
[2021-05-06] MEDS ORDERED: POTASSIUM CL SA 10 MEQ TAB PO ONE (07:54)
[2021-05-06] MEDS: ENSURE ENLIVE 237 ML CAN PO SCH (09:00)
--- NOTE | 2021-05-06 10:11 | P.PN ---
Subjective Date of Service: 05/06/21 Chief Complaint: UTI, fall Patient seen examined at bedside, no acute events. Physical Examination - Vital Signs Temperature: 97.9 F Blood Pressure: 137/63 Pulse: 55 Respirations: 16 Pulse Ox (%): 98 - Studies Microbiology Data (last 24 hrs): 05/01/21 01:10 Blood - Blood Aerobic Blood Culture - Final No growth in 5 days. 05/01/21 01:10 Blood - Blood Anaerobic Blood Culture - Final No growth in 5 days. 05/01/21 01:05 Blood - Blood Aerobic Blood Culture - Final No growth in 5 days. 05/01/21 01:05 Blood - Blood Anaerobic Blood Culture - Final No growth in 5 days. 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 Patient hospitalized in December and January of this year for a ESBL Klebsiella urinary tract infections. Renal ultrasound showed bilateral benign renal cysts, no obstructive uropathy noted. Continue meropenem with an end date of 05/10. Left arm PICC line placed. -Continue monitor CBC and BMP -Continue monitor for signs infection Plan of care discussed with Dr. Coleman Thank you for consultation.
[2021-05-06] MEDS: LIDOCAINE 4% PATCH TOP SCH (10:17)
[2021-05-06] MEDS: Oxycodone HCl/Acetaminophen 1 TAB TAB PO PRN (10:17)
[2021-05-06] MEDS: hydroCHLOROthiazide 12.5 MG CAP PO SCH (10:17)
[2021-05-06 12:27] VITALS: BP 111/52; TEMP 99.8
[2021-05-06] MEDS ORDERED: ERTAPENEM SODIUM 1 GM VIAL IVPB SCH (14:00)
[2021-05-06] MEDS ORDERED: ERTAPENEM NA 1 GM in NA CHLORIDE 0.9% 100 ML IVPB SCH (14:00)
[2021-05-06 15:06] VITALS: O2SAT 96
--- NOTE | 2021-05-06 20:44 | P.DS ---
Admission Date: 05/01/21 Discharge Date: 05/06/21 Disposition: DC HOME/HOME HEALTH CARE Discharge Condition: GOOD Reason for Admission: UTI, fall Consultations: Infectious Disease - Dr. Coleman Procedures: Renal U/S (05/01): FINDINGS: Both kidneys demonstrate multiple benign appearing renal cysts, without worrisome change since comparative ultrasound. The right kidney measures 9.4 x 4.9 x 4.5 cm. No hydronephrosis, focal mass or perinephric fluid. The left kidney measures 10.2 x 5.8 x 4.8 cm. No hydronephrosis, focal mass or perinephric fluid. The urinary bladder is incompletely distended without gross abnormality seen. IMPRESSION: Benign bilateral renal cysts, otherwise negative study. CT head/cspine/chest/abd/pelvis (05/01): FINDINGS: Brain: Mild cerebral atrophy and minimal bilateral periventricular and subcortical white matter low-attenuation which is nonspecific and can be seen in the setting of chronic microvascular angiopathy again demonstrated. E xcreted No significant white matter changes. No focal mass effect. Sanchez-white matter differentiation is within normal limits. No hemorrhage. Ventricles: No ventriculomegaly or midline shift. Extra-axial spaces: No extra-axial collection or hemorrhage. Paranasal sinuses and mastoid air cells: Right maxillary and sphenoid sinus mucous retention cyst/polyps. Minimal right sphenoid sinus bubbly opacification. Vessels: There is atherosclerotic disease of the internal carotid arteries bilaterally. Bones: Unremarkable Soft tissues: Unremarkable CT CERVICAL SPINE WITHOUT IV CONTRAST FINDINGS: Vertebra: No acute fracture or subluxation. Disc spaces: Mild to moderate multilevel disc degeneration, small anterior and uncovertebral osteophytes and bilateral facet arthropathy, right greater than left. No canal stenosis. Prevertebral soft tissues: Unremarkable CT CHEST WITH IV CONTRAST FINDINGS: Artifacts: Motion artifact degrades image quality. Lungs: No focal consolidation. Airways are patent. Pleura: Trace right effusion. No pneumothorax. Heart and pericardium: The heart is normal in size. Coronary artery calcification. No pericardial effusion. Mediastinum and marjan: No pathologically enlarged lymph nodes. Lower neck and chest wall: Unremarkable Vessels: Minimal atherosclerotic disease. No thoracic aortic aneurysm. Bones: Multilevel spondylosis. Remote right 9th through 12th rib fractures again demonstrated. Questionable superimposed acute fracture at the right posterior medial 10th rib best seen on sagittal images. CT ABDOMEN PELVIS WITH IV CONTRAST FINDINGS: Artifacts: Motion artifact degrades image quality. Liver: Unremarkable Gallbladder and biliary system: Prior cholecystectomy. Pancreas: Moderate pancreatic parenchymal atrophy. Spleen: Unremarkable Adrenals: Unremarkable Kidneys: Normal renal cortical enhancement. Bilateral renal cysts without significant interval change. Index cyst at the lateral midpole on the right measures 4.6 cm. No calculi. No hydronephrosis. Bowel: Prior gastric bypass. Moderate stool within the distal large bowel. Fecal loading in the rectal vault. Mild rectal wall thickening with perirectal and presacral edema. No obstruction. Appendix: Normal caliber appendix. No findings to suggest acute appendicitis. Urinary bladder: Mild circumferential urinary bladder wall thickening. Reproductive: Prior hysterectomy. No adnexal mass. Lymph nodes: No pathologically enlarged lymph nodes. Peritoneum: Small amount of free fluid in the pelvis. No free air. Vessels: Mild to moderate atherosclerotic disease. No abdominal aortic aneurysm. Abdominal wall: Small fat-containing umbilical hernia. Left gluteal pulse generator. Lead terminate in the right presacral region. Bones: Multilevel spondylosis. Remote L1 compression fracture and right L1-L3 transverse process fractures. Again demonstrated. Prior right femoral gamma nail fixation. Interval healing of the left femoral greater trochanter fracture. No acute fracture. IMPRESSION: CT HEAD: 1. No acute intracranial or extra-axial abnormality. 2. Other findings as above. CT CERVICAL SPINE: No acute fracture or subluxation. CT CHEST: 1. Questionable superimposed acute fracture at the right posterior medial 10th rib. 2. Trace right pleural effusion. 3. Other findings as above. CT ABDOMEN AND PELVIS: 1. Allowing for motion artifact, no evidence for hollow or solid organ injury. 2. Fecal loading in the rectal vault. There is mild rectal wall thickening with mild perirectal and presacral edema. This may be related to fecal impaction. Early stercoral colitis is not entirely excluded. 3. Mild circumferential urinary bladder wall thickening. Please correlate clinically for cystitis. 4. Other findings as above. CXR (05/03): FINDINGS: Portable chest was obtained following placement of a left upper extremity PICC line. The catheter tip is in the inferior aspect of the right atrium. Retraction of the PICC line 5-[address] the tip within the SVC. Problem List UTI, acute cystitis; ESBL e coli Behavioral disorder, Anxiety Chronic pain disorder Severe protein-calorie malnutrition acute on chronic anemia secondary to chronic disease Brief History of Present Illness: Ms. Padron is a 75 yo F with history of HTN, recurrent UTI and B cell lymphoma brought in today for fall from bed. She reports injury to back. Per , she has been confused lately and this is a sign that she has a UTI. Also reports weight loss and poor appetite. He says she has been overmedicating with her percocet and klonopin, but will get angry if she tries to regulate her doses. CT scan with possible rib fractures. UA consistent with UTI, culture pending, has been positive for ESBL Klebsiella in the past. Hospital Course: Workup revealed acute cystitis secondary to ESBL e.coli. ID was consulted. Recommended IV antibiotics through 05/10. PICC line was placed and patient was discharged home to complete 4 more days of antibiotics with invanz. Patient was noted to have acute on chronic anemia secondary to chronic disease. She had no evidence of bleeding, and hemoglobin remained stable in the low 8s. Patient had poor PO intake, reported minimal to no appetite. Follow up with PCP in 3-5 days Vital Signs/Physical Exam: Physical Exam General: Alert, In no apparent distress HEENT: Mucous membr. moist/pink, normal conjunctiva Respiratory: Clear to auscultation bilaterally, Normal air movement Cardiovascular: No edema, Regular rate/rhythm, Normal S1 S2 Gastrointestinal: Soft, nontender, nondistended Musculoskeletal: L knee with ~1 cm diameter ulceration, shallow, no purulent drainage Temp Pulse Resp BP Pulse Ox 99.8 F 62 16 111/52 L 98 05/06/21 12:00 05/06/21 12:00 05/06/21 12:00 05/06/21 12:00 05/06/21 12:00 Laboratory Data at Discharge: WBC 3.60 K/uL (4.3-10.9) L 05/06/21 03:08 Hgb 8.2 g/dL (12.0-15.0) L 05/06/21 03:08 Hct 25.0 % (36.0-45.0) L 05/06/21 03:08 Plt Count 127 K/uL (152-406) L 05/06/21 03:08 PT 11.4 SECONDS (9.5-12.5) 05/01/21 01:10 INR 0.99 05/01/21 01:10 APTT 29.2 SECONDS (24.3-36.9) 05/01/21 01:10 Sodium 143 mmol/L (136-145) 05/06/21 03:08 Potassium 3.9 mmol/L (3.5-5.1) 05/06/21 03:08 BUN 11 mg/dL (7-18) 05/06/21 03:08 Creatinine 0.35 mg/dL (0.55-1.3) L 05/06/21 03:08 Glucose 71 mg/dL (74-106) L 05/06/21 03:08 Phosphorus 2.6 mg/dL (2.5-4.9) 05/02/21 04:21 Magnesium 1.6 mg/dL (1.8-2.4) L D 05/06/21 03:08 Total Bilirubin 0.2 mg/dL (0.2-1.0) 05/06/21 03:08 AST 12 U/L (15-37) L 05/06/21 03:08 ALT 12 U/L (12-78) 05/06/21 03:08 Alkaline Phosphatase 87 U/L (45-117) 05/06/21 03:08 Triglycerides 55 mg/dL (<150) 05/02/21 04:21 Cholesterol 124 mg/dL (<200) 05/02/21 04:21 HDL Cholesterol 61 mg/dL (40-60) H 05/02/21 04:21 Cholesterol/HDL Ratio 2.03 05/02/21 04:21 Home Medications: Oxycodone HCl/Acetaminophen [Prolate 7.5-300 mg Tablet] 1 tab PO PRN PRN 02/21/21 clonazePAM [Clonazepam] 1 mg PO BEDTIME 02/21/21 Gabapentin 1 tab PO BEDTIME 05/01/21 Levothyroxine [Synthroid*] 1 tab PO DAILY 05/01/21 hydroCHLOROthiazide [Hydrochlorothiazide] 1 cap PO DAILY 05/01/21 Followup: Jane Sprague PA [Primary Care Provider] - JAMES RODAS [OUTSIDE PHYSICIAN] - Time spent managing pt's care (in minutes): 35
== END 2021-05-06 16:00 | disposition home health service (06) | DRG 689 ==
LOC: ER 00:13 → ERHOLD 03:06 → 4TH 04:18
PROVIDERS: ADMIT Internal Medicine; ATTEND Internal Medicine
PROC: 02HV33Z Insertion of Infusion Device into Superior Vena Cava, Percutaneous Approach (ICD-10-PCS; principal; 2021-05-03)
DX: N30.00 Acute cystitis without hematuria (principal); E43 Unspecified severe protein-calorie malnutrition; G93.41 Metabolic encephalopathy; S22.41XA Multiple fractures of ribs, right side, initial encounter for closed fracture; Z16.12 Extended spectrum beta lactamase (ESBL) resistance; Z68.1 Body mass index [BMI] 19.9 or less, adult; C85.10 Unspecified B-cell lymphoma, unspecified site; B96.20 Unspecified Escherichia coli [E. coli] as the cause of diseases classified elsewhere; F91.9 Conduct disorder, unspecified; F41.9 Anxiety disorder, unspecified; G89.29 Other chronic pain; D63.8 Anemia in other chronic diseases classified elsewhere; W06.XXXA Fall from bed, initial encounter; Y92.009 Unspecified place in unspecified non-institutional (private) residence as the place of occurrence of the external cause; E03.9 Hypothyroidism, unspecified; E86.0 Dehydration; Z20.822 Contact with and (suspected) exposure to COVID-19
CPT/HCPCS: 36415; 36569; 70450; 71045; 71260; 72125; 74177; 76770; 80048; 80053; 80061; 81003; 81015; 82565; 83605; 83735; 84100; 84132; 84145; 84439; 84443; 85025; 85610; 85730; 87040; 87077; 87086; 87088; 87186; 93005; 94760; 96361; 96365; 96366; 96375; 97116; 97161; 97530; 99285; J0696; J1335; J2185; J2270; J2405; J3475; J3480; J7030; J7040; Q9967; U0003

== ENCOUNTER 2021-05-07 19:50 | Emergency (ER) | payer OTHER, BC ==
[2021-05-07 20:27] LABS: Absolute Lymphocytes (CBC) 0.9 K/uL (0.7-4.9); Basophils % 1.1 % (0-1.3); Hematocrit 27.4 % (36.0-45.0); Lymphocytes % 17.3 % (15.3-44.8); MPV 8.6 fL (7.6-11.3); Protime INR 1.03
[2021-05-07 20:40] LABS: ALT/SGPT 11 U/L (12-78); AST/SGOT 12 U/L (15-37); Albumin 2.1 g/dL (3.4-5.0); Alkaline Phosphatase 116 U/L (45-117); BUN Blood Urea Nitrogen 13 mg/dL (7-18); Bicarbonate 27 mmol/L (21-32); Bilirubin Direct 0.1 mg/dL (0-0.2); Bilirubin Total 0.3 mg/dL (0.2-1.0); Glucose Level 76 mg/dL (74-106); Magnesium 1.8 mg/dL (1.8-2.4); NT PRO-BNP 1146 pg/mL (<125); Potassium 4.1 mmol/L (3.5-5.1); Protein, Total 4.5 g/dL (6.4-8.2); Sodium Level 140 mmol/L (136-145); Troponin (Emerg Dept Use Only) < 0.02 ng/mL (0.0-0.045)
[2021-05-07] MEDS ORDERED: LORazepam 2 MG/ML VIAL ONE (20:42)
--- NOTE | 2021-05-07 21:16 | RAD REPORT ---
EXAM DESCRIPTION: RAD - Chest Single View - 05/07/2021 8:44 pm CLINICAL HISTORY: COUGH Chest pain. COMPARISON: Chest Single View dated 05/03/2021; Chest Single View dated 02/28/2021; Abdomen 1 View (KUB) dated 02/26/2021; Abdomen 1 View (KUB) dated 02/25/2021 FINDINGS: Portable technique limits examination quality. Mild opacity in the medial left lung base may represent atelectasis or a small infiltrate. The heart is normal in size. No displaced fractures.Left PICC line has tip in the SVC.
[2021-05-07] MEDS ORDERED: ZIPRASIDONE MESYLA 20 MG/VIAL IM ONE (21:35)
[2021-05-07] MEDS ORDERED: WATER FOR INJ,STERILE 10 ML ONE (21:35)
--- NOTE | 2021-05-07 21:59 | EDPHYS ---
Physician Documentation [facility] Name: Tina Padron Age: 75 yrs Sex: Female : 1945 Arrival Date: 05/07/2021 Time: 19:55 Bed 5 Private MD: BARNEY Physician Mateo Fox HPI: 05/07 21:49 This 75 yrs old Female presents to ER via EMS with complaints of GOT UPSET alec TOOK AN EXTRA KLONIPIN. 21:49 The patient presents to the emergency department with anxiety. Onset: The alec symptoms/episode began/occurred today. Past psychiatric history: Prior diagnosis: depression. GOT MAD AT HER AND TOOK AN EXTRA KLONIPIN. Associated signs and symptoms: Pertinent positives; UPSET. Severity of symptoms: At their worst the symptoms were mild in the emergency department the symptoms are unchanged. The patient has experienced similar episodes in the past, multiple times. Historical: - Allergies: 20:12 Compazine; ak2 20:12 Meclizine; ak2 - Home Meds: 20:12 clonazepam 1 mg Oral tab 1 tab nightly [Active]; aspirin 81 mg Oral TbEC 1 tab once ak2 daily [Active]; Azo-Standard Oral as needed [Active]; Flomax 0.4 mg Oral cp24 1 cap once daily [Active]; losartan 50 mg Oral tab 1 tab 2 times per day [Active]; meclizine 25 mg Oral tab 1 tab as needed [Active]; omeprazole 40 mg Oral cpDR 1 cap once daily [Active]; oxycodone-acetaminophen 7.5-325 mg Oral tab 1 tab every 6 hours [Active]; pantoprazole 20 mg Oral TbEC 1 tab once daily [Active]; potassium chloride 20 mEq Oral TbER 1 tab 2 times per day [Active]; simvastatin 20 mg Oral tab 1 tab once daily [Active]; Synthroid 88 mcg Oral tab 1 tab once daily [Active]; Uribel 118-10-40.8-36 mg Oral tab daily [Active]; - PMHx: 20:12 "shattered shoulder"; Anxiety; chronic uti; Hyperlipidemia; Hypertension; ak2 Hypothyroidism; spinal fractures; - PSHx: 20:12 Gastric Bypass; hip; knee; Shoulder; Total abdominal hysterectomy; ak2 - Immunization history:: Adult Immunizations up to date. - Social history:: Smoking status: unknown. ROS: 21:51 Constitutional: Negative for fever, chills, and weight loss, Eyes: Negative for injury, alec pain, redness, and discharge, ENT: Negative for injury, pain, and discharge, Neck: Negative for injury, pain, and swelling, Cardiovascular: Negative for chest pain, palpitations, and edema, Respiratory: Negative for shortness of breath, cough, wheezing, and pleuritic chest pain, Abdomen/GI: Negative for abdominal pain, nausea, vomiting, diarrhea, and constipation, Back: Negative for injury and pain, : Negative for injury, bleeding, discharge, and swelling, MS/Extremity: Negative for injury and deformity, Skin: Negative for injury, rash, and discoloration, Allergy/Immunology: Negative for hives, rash, and allergies, Endocrine: Negative for neck swelling, polydipsia, polyuria, polyphagia, and marked weight changes, Hematologic/Lymphatic: Negative for swollen nodes, abnormal bleeding, and unusual bruising. 21:51 Neuro: Positive for weakness. 21:51 Psych: Positive for anxiety. Exam: 21:51 Constitutional: This is a well developed, well nourished patient who is awake, alert, alec and in no acute distress. Head/Face: Normocephalic, atraumatic. Eyes: Pupils equal round and reactive to light, extra-ocular motions intact. Lids and lashes normal. Conjunctiva and sclera are non-icteric and not injected. Cornea within normal limits. Periorbital areas with no swelling, redness, or edema. ENT: Nares patent. No nasal discharge, no septal abnormalities noted. Tympanic membranes are normal and external auditory canals are clear. Oropharynx with no redness, swelling, or masses, exudates, or evidence of obstruction, uvula midline. Mucous membranes moist. Neck: Trachea midline, no thyromegaly or masses palpated, and no cervical lymphadenopathy. Supple, full range of motion without nuchal rigidity, or vertebral point tenderness. No Meningismus. Chest/axilla: Normal chest wall appearance and motion. Nontender with no deformity. No lesions are appreciated. Cardiovascular: Regular rate and rhythm with a normal S1 and S2. No gallops, murmurs, or rubs. Normal PMI, no JVD. No pulse deficits. Respiratory: Lungs have equal breath sounds bilaterally, clear to auscultation and percussion. No rales, rhonchi or wheezes noted. No increased work of breathing, no retractions or nasal flaring. Abdomen/GI: Soft, non-tender, with normal bowel sounds. No distension or tympany. No guarding or rebound. No evidence of tenderness throughout. Back: No spinal tenderness. No costovertebral tenderness. Full range of motion. Female : Normal external genitalia. Skin: Warm, dry with normal turgor. Normal color with no rashes, no lesions, and no evidence of cellulitis. MS/ Extremity: Pulses equal, no cyanosis. Neurovascular intact. Full, normal range of motion. Psych: Awake, alert, with orientation to person, place and time. Behavior, mood, and affect are within normal limits. 21:51 Neuro: Orientation: is normal, appropriate for stated age, no acute changes, Mentation: appropriate for stated age, no acute changes, Memory: appropriate for stated age, no acute changes, Cranial nerves: grossly normal, is grossly normal based on the patient's age, no acute changes, Cerebellar function: is grossly normal, is grossly normal based on the patient's age, no acute changes, Motor: moves all fours, strength is 5/5 in all extremities, Sensation: no obvious gross deficits, appropriate no acute changes, Gait: not tested. seizure activity, is not displayed by the patient. 22:06 ECG was reviewed by the Attending Physician. [facility] Vital Signs: 20:09 BP 157 / 64; Pulse 62; Resp 20; Temp 98.2; Pulse Ox 100% on R/A; Weight 45.36 kg; ak2 Height 5 ft. 5 in. (165.10 cm); 22:32 BP 142 / 63; Pulse 65; Resp 16; Pulse Ox 100% on R/A; ak2 20:09 Body Mass Index 16.64 (45.36 kg, 165.10 cm) ak2 MDM: 20:00 Patient medically screened. alec 21:53 Differential diagnosis: acute psychotic break, depression, psychosis secondary to alec non-compliance. Differential Diagnosis altered mental status. Data reviewed: vital signs, nurses notes, lab test result(s), EKG, radiologic studies, plain films. Data interpreted: cafeteria monitor: rate is 62 beats/min, rhythm is regular, Pulse oximetry: on room air is 100 %. Test interpretation: by ED physician or midlevel provider: ECG, plain radiologic studies. Counseling: I had a detailed discussion with the patient and/or guardian regarding: the historical points, exam findings, and any diagnostic results supporting the discharge/admit diagnosis, lab results, radiology results. 05/07 20:02 Order name: Basic Metabolic Panel [facility] 05/07 20:02 Order name: CBC with Diff [facility] 05/07 20:02 Order name: LFT's [facility] 05/07 20:02 Order name: Magnesium; Complete Time: 21:10 [facility] 05/07 20:02 Order name: NT PRO-BNP; Complete Time: 21:10 [facility] 05/07 20:02 Order name: PT-INR; Complete Time: 21:10 [facility] 05/07 20:02 Order name: Troponin (emerg Dept Use Only); Complete Time: 21:10 [facility] 05/07 20:02 Order name: XRAY Chest (1 view); Complete Time: 21:56 [facility] 05/07 20:02 Order name: Basic Metabolic Panel; Complete Time: 21:10 [facility] 05/07 20:02 Order name: CBC with Automated Diff; Complete Time: 21:10 [facility] 05/07 20:02 Order name: Liver (Hepatic) Function; Complete Time: 21:10 [facility] 05/07 21:34 Order name: SARS-COV-2 RT PCR; Complete Time: 21:56 [facility] 05/07 20:02 Order name: EKG; Complete Time: 20:03 [facility] 05/07 20:02 Order name: Cardiac monitoring; Complete Time: 20:35 [facility] 05/07 20:02 Order name: EKG - Nurse/Tech; Complete Time: 20:35 [facility] 05/07 20:02 Order name: IV Saline Lock; Complete Time: 20:15 [facility] 05/07 20:02 Order name: Labs collected and sent; Complete Time: 20:15 [facility] 05/07 20:02 Order name: O2 Per Protocol; Complete Time: 20:15 [facility] 05/07 20:02 Order name: O2 Sat Monitoring; Complete Time: 20:15 [facility] EC:06 Rate is 65 beats/min. Rhythm is regular. QRS Jackson is Normal. TX interval is normal. QRS alec interval is normal. QT interval is normal. No Q waves. T waves are Normal. No ST changes noted. Clinical impression: Normal ECG and No evidence of ischemia. Interpreted by me. Reviewed by me. Administered Medications: 20:34 Drug: Ativan (LORazepam) 1 mg Route: IVP; Site: PICC; 8 21:24 Follow up: Response: No adverse reaction [facility] 20:35 CANCELLED (Duplicate Order): Ativan (LORazepam) 1 mg IVP once 8 20:39 Drug: Ativan (LORazepam) 1 mg Route: IVP; Site: PICC; 8 21:24 Follow up: Response: No adverse reaction [facility] 21:21 Drug: Geodon (ziprasidone) 20 mg Route: IM; Site: right gluteus; em Disposition Summary: 05/07/21 21:59 Discharge Ordered Location: Home alec Problem: new alec Symptoms: have improved alec Condition: Stable alec Diagnosis - Anxiety disorder, unspecified alec - Anemia, unspecified alec - Atelectasis alec Followup: alec - With: Private Physician - When: 2 - 3 days - Reason: Recheck today's complaints, Continuance of care, Re-evaluation by your physician Discharge Instructions: - Discharge Summary Sheet alec - Anemia alec - Atelectasis, Adult alec - Generalized Anxiety Disorder, Adult alec - Supporting Someone With Anxiety alec Forms: - Medication Reconciliation Form alec - Thank You Letter alec - Antibiotic Education alec - Prescription Opioid Use alec Signatures: Dispatcher [employer] EDMS Mateo Fox MD MD cha Munoz, Edgar, RN RN Min Irizarry RN RN Naveen Vail2 Corrections: (The following items were deleted from the chart) 20:35 20:35 Ativan (LORazepam) 1 mg IVP once [place]. [place] [id number] 20:40 20:03 CORONAVIRUS+MR.LAB.BRZ ordered. EDMS EDMS
--- NOTE | 2021-05-07 21:59 | ER ---
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 Coronavirus ak2 screen: Client denies travel out of the [place] in the last 14 days. At this time, the client does not indicate any symptoms associated with coronavirus-19. Ebola Screen: Patient negative for fever greater than or equal to 101.5 degrees Fahrenheit, and additional compatible Ebola Virus Disease symptoms Patient denies exposure to infectious person. Patient denies travel to an Ebola-affected area in the 21 days before illness onset. No symptoms or risks identified at this time. Initial Sepsis Screen: Does the patient meet any 2 criteria? No. Patient's initial sepsis screen is negative. Does the patient have a suspected source of infection? No. Patient's initial sepsis screen is negative. Risk Assessment: Do you want to hurt yourself or someone else? Patient reports no desire to harm self or others. Onset of symptoms was May 07, 2021. 20:09 Method Of Arrival: EMS: [facility] ak2 20:09 Acuity: TYLOR 3 ak2 Triage Assessment: 20:12 General: Appears in no apparent distress. Behavior is calm, cooperative. Pain: Denies ak2 pain. Historical: - Allergies: 20:12 Compazine; ak2 20:12 Meclizine; ak2 - Home Meds: 20:12 clonazepam 1 mg Oral tab 1 tab nightly [Active]; aspirin 81 mg Oral TbEC 1 tab once ak2 daily [Active]; Azo-Standard Oral as needed [Active]; Flomax 0.4 mg Oral cp24 1 cap once daily [Active]; losartan 50 mg Oral tab 1 tab 2 times per day [Active]; meclizine 25 mg Oral tab 1 tab as needed [Active]; omeprazole 40 mg Oral cpDR 1 cap once daily [Active]; oxycodone-acetaminophen 7.5-325 mg Oral tab 1 tab every 6 hours [Active]; pantoprazole 20 mg Oral TbEC 1 tab once daily [Active]; potassium chloride 20 mEq Oral TbER 1 tab 2 times per day [Active]; simvastatin 20 mg Oral tab 1 tab once daily [Active]; Synthroid 88 mcg Oral tab 1 tab once daily [Active]; Uribel 118-10-40.8-36 mg Oral tab daily [Active]; - PMHx: 20:12 "shattered shoulder"; Anxiety; chronic uti; Hyperlipidemia; Hypertension; ak2 Hypothyroidism; spinal fractures; - PSHx: 20:12 Gastric Bypass; hip; knee; Shoulder; Total abdominal hysterectomy; ak2 - Immunization history:: Adult Immunizations up to date. - Social history:: Smoking status: unknown. Screenin:13 Abuse screen: Denies threats or abuse. Denies injuries from another. Nutritional ak2 screening: No deficits noted. Tuberculosis screening: No symptoms or risk factors identified. Fall Risk None identified. Assessment: 20:13 General: Appears in no apparent distress. Pain: Denies pain. Neuro: Level of ak2 Consciousness is awake, alert, Oriented to person, place. Cardiovascular: No deficits noted. Respiratory: No deficits noted. Vital Signs: 20:09 BP 157 / 64; Pulse 62; Resp 20; Temp 98.2; Pulse Ox 100% on R/A; Weight 45.36 kg; ak2 Height 5 ft. 5 in. (165.10 cm); 22:32 BP 142 / 63; Pulse 65; Resp 16; Pulse Ox 100% on R/A; ak2 20:09 Body Mass Index 16.64 (45.36 kg, 165.10 cm) ak2 ED Course: 19:55 Patient arrived in ED. jm8 20:00 Mateo Fox MD is Attending Physician. alec 20:11 Triage completed. ak2 20:13 Patient has correct armband on for positive identification. ak2 20:13 No provider procedures requiring assistance completed. ak2 20:14 Patient placed in the treatment room, on a stretcher. ak2 20:17 Naveen Anthony is Primary Nurse. ak2 20:39 Accessed PICC line. Clean \\T\\ dry. Dressing intact. Good blood return. Flushes easily. jm8 20:44 XRAY Chest (1 view) In Process Unspecified. EDMS 22:33 Patient did not have IV access during this emergency room visit. ak2 Administered Medications: 20:34 Drug: Ativan (LORazepam) 1 mg Route: IVP; Site: PICC; 8 21:24 Follow up: Response: No adverse reaction jm8 20:35 CANCELLED (Duplicate Order): Ativan (LORazepam) 1 mg IVP once jm8 20:39 Drug: Ativan (LORazepam) 1 mg Route: IVP; Site: PICC; 8 21:24 Follow up: Response: No adverse reaction jm8 21:21 Drug: Geodon (ziprasidone) 20 mg Route: IM; Site: right gluteus; em Outcome: 21:59 Discharge ordered by MD. michael 22:33 Discharged to home ambulatory. ak2 22:33 Condition: good 22:33 Discharge instructions given to patient, family. 22:33 Patient left the ED. ak2 Signatures: Dispatcher [employer] Mateo Solano MD MD cha Munoz, Edgar RN RN Min Diallo RN RN Naveen Romero ak2
[2021-05-07 22:37] VITALS: TEMP 98.2; O2SAT 100
[2021-05-07 22:38] VITALS: BP 142/63
--- NOTE | 2021-05-08 07:43 | EKG ---
Test Date: 2021-05-07 Test Time: 20:28:17 Associate Broker: MEASUREMENT RESULTS: Intervals: Rate: 70 [place]: 170 QRSD: 70 QT: 406 QTc: 438 [place]: P: 68 [place]: 170 QRS: 57 T: 68 INTERPRETIVE STATEMENTS: Normal sinus rhythm Normal ECG Compared to ECG 05/01/2021 00:53:58 Sinus bradycardia no longer present ST (T wave) deviation no longer present Electronically Signed On 05-08-21 07:42:34 CDT by Diaz Ramsay
--- NOTE | 2021-05-09 08:04 | EKG ---
Test Date: 2021-05-07 Test Time: 20:28:51 Supervising Broker: MEASUREMENT RESULTS: Intervals: Rate: 65 [place]: 176 QRSD: 72 QT: 410 QTc: 426 [place]: P: 69 [place]: 176 QRS: 53 T: 71 INTERPRETIVE STATEMENTS: Normal sinus rhythm Normal ECG Compared to ECG 05/07/2021 20:28:17 No significant changes Electronically Signed On 05-09-21 08:03:05 CDT by Diaz Ramsay
== END 2021-05-07 22:33 | disposition home or self-care (01) ==
LOC: ER 19:50
DX: F41.9 Anxiety disorder, unspecified (principal); D64.9 Anemia, unspecified; J98.11 Atelectasis; I10 Essential (primary) hypertension; Z20.822 Contact with and (suspected) exposure to COVID-19; Z79.82 Long term (current) use of aspirin; Z88.8 Allergy status to other drugs, medicaments and biological substances
CPT/HCPCS: 93005 ×2; 85025; 80048; 36415; 83735; 85610; 80076; 84484; 83880; 71045; 96372; 96374; 99284; U0003; J3486

== ENCOUNTER 2021-05-08 13:49 | Emergency (ER) | payer OTHER, BC ==
--- NOTE | 2021-05-08 15:07 | RAD REPORT ---
EXAM DESCRIPTION: Taco Single View05/08/2021 2:39 pm CLINICAL HISTORY: Alteration consciousness/confusion COMPARISON: May 07, 2021 FINDINGS: The lungs appear clear of acute infiltrate. The heart is normal size. PICC line has its t ip the superior vena cava IMPRESSION: No acute abnormalities displayed
[2021-05-08 15:09] LABS: Absolute Lymphocytes (CBC) 0.5 K/uL (0.7-4.9); Basophils % 1.1 % (0-1.3); MPV 8.7 fL (7.6-11.3); RBC Red Blood Cell Count 3.27 M/uL (3.86-4.86)
[2021-05-08 15:14] LABS: Protime INR 1.03
[2021-05-08 15:26] LABS: ALT/SGPT 12 U/L (12-78); AST/SGOT 17 U/L (15-37); Albumin 2.3 g/dL (3.4-5.0); Alkaline Phosphatase 123 U/L (45-117); Amylase 22 U/L (25-115); BUN Blood Urea Nitrogen 12 mg/dL (7-18); Bicarbonate 27 mmol/L (21-32); Bilirubin Direct 0.2 mg/dL (0-0.2); Bilirubin Total 0.4 mg/dL (0.2-1.0); CKMB Creatine Kinase MB 2.1 ng/mL (1.0-3.6); Creatine Phosphokinase 47 U/L (26-192); Glucose Level 80 mg/dL (74-106); Potassium 4.1 mmol/L (3.5-5.1); Protein, Total 5.1 g/dL (6.4-8.2); Sodium Level 142 mmol/L (136-145); Troponin (Emerg Dept Use Only) < 0.02 ng/mL (0.0-0.045)
[2021-05-08 15:27] LABS: Lipase < 10 U/L (73-393)
[2021-05-08 15:52] LABS: Urine Blood Trace-lysed (Negative); Urine Glucose Negative (Negative); Urine Protein Negative (Negative)
--- NOTE | 2021-05-08 16:18 | EDPHYS ---
Physician Documentation [facility] Name: Tina Padron Age: 75 yrs Sex: Female : 1945 Arrival Date: 05/08/2021 Time: 13:50 Bed 26 Private MD: ED Physician Rashawn Wagner HPI: 05/08 14:17 This 75 yrs old Female presents to ER via Unassigned with complaints of AMS. jmm 14:17 The patient presents with agitation, confusion. Onset: The symptoms/episode jmm began/occurred gradually. Possible causes: UTI. Associated signs and symptoms: Pertinent positives: combativeness, confusion. Current symptoms: In the emergency department the patient's symptoms are unchanged from the initial presentation. The patient has experienced similar episodes in the past, but today's symptoms are worse. Historical: - Allergies: 19:15 Compazine; zb 19:15 Meclizine; zb - Home Meds: 19:15 aspirin 81 mg Oral TbEC 1 tab once daily [Active]; Azo-Standard Oral as needed zb [Active]; clonazepam 1 mg Oral tab 1 tab nightly [Active]; Flomax 0.4 mg Oral cp24 1 cap once daily [Active]; losartan 50 mg Oral tab 1 tab 2 times per day [Active]; meclizine 25 mg Oral tab 1 tab as needed [Active]; omeprazole 40 mg Oral cpDR 1 cap once daily [Active]; oxycodone-acetaminophen 7.5-325 mg Oral tab 1 tab every 6 hours [Active]; pantoprazole 20 mg Oral TbEC 1 tab once daily [Active]; potassium chloride 20 mEq Oral TbER 1 tab 2 times per day [Active]; simvastatin 20 mg Oral tab 1 tab once daily [Active]; Synthroid 88 mcg Oral tab 1 tab once daily [Active]; Uribel 118-10-40.8-36 mg Oral tab daily [Active]; - PMHx: 19:15 "shattered shoulder"; Anxiety; chronic uti; Hyperlipidemia; Hypertension; zb Hypothyroidism; spinal fractures; - PSHx: 19:15 Gastric Bypass; hip; knee; Shoulder; Total abdominal hysterectomy; zb - Immunization history:: Adult Immunizations up to date. - Social history:: Smoking status: unknown. ROS: 14:17 Cardiovascular: Negative for chest pain, palpitations, and edema, Respiratory: Negative [facility] for shortness of breath, cough, wheezing, and pleuritic chest pain, Abdomen/GI: Negative for abdominal pain, nausea, vomiting, diarrhea, and constipation. 14:17 Constitutional: Positive for weight loss. 14:17 Neuro: Positive for altered mental status. 14:17 All other systems are negative. Exam: 14:17 Head/Face: atraumatic. Eyes: EOMI, no conjunctival erythema appreciated ENT: Moist jmm Mucus Membranes Neck: Trachea midline, Supple Chest/axilla: Normal chest wall appearance and motion. Cardiovascular: Regular rate and rhythm. No edema appreciated Respiratory: Normal respirations, no respiratory distress appreciated Abdomen/GI: Non distended, soft Back: Normal ROM Skin: General appearance color normal 14:17 Constitutional: The patient appears alert, awake, anxious. 14:17 Musculoskeletal/extremity: ROM: intact in all extremities. 14:17 Skin: Appearance: Color: normal in color. 14:17 Neuro: Motor: is normal. 14:17 Psych: Behavior/mood is anxious, uncooperative. Vital Signs: 14:16 BP 135 / 75; Pulse 89; Resp 18; Temp 97.9; Pulse Ox 98% on R/A; Weight 44.45 kg; Height zb 5 ft. 5 in. (165.10 cm); 15:04 BP 140 / 68; Pulse 90; Resp 17; Pulse Ox 98% ; mh5 16:30 BP 113 / 73; Pulse 84; Resp 16; Pulse Ox 100% on R/A; zb 17:30 BP 143 / 90; Pulse 92; Resp 16; Pulse Ox 100% on R/A; zb 18:14 BP 99 / 80; Pulse 70; Resp 16; Pulse Ox 93% on R/A; zb 19:17 BP 125 / 58; Pulse 89; Resp 16; Pulse Ox 94% on R/A; zb 14:16 Body Mass Index 16.31 (44.45 kg, 165.10 cm) zb MDM: 14:13 Patient medically screened. [facility] 16:16 Data reviewed: vital signs, nurses notes. Counseling: I had a detailed discussion with jensen the patient and/or guardian regarding: the historical points, exam findings, and any diagnostic results supporting the discharge/admit diagnosis, lab results, the need for further work-up and treatment in the hospital. ED course: I discussed the patient with KAREN Torres whom accepted the patient to Dr. Latesha pryor. . 05/08 14:13 Order name: Amylase, Serum [facility] 05/08 14:13 Order name: Basic Metabolic Panel [facility] 05/08 14:13 Order name: Blood Culture Adult (2) [facility] 05/08 14:13 Order name: CBC with Diff [facility] 05/08 14:13 Order name: CPK [facility] 05/08 14:13 Order name: Ckmb [facility] 05/08 14:13 Order name: LFT's [facility] 05/08 14:13 Order name: Lactate; Complete Time: 15:27 [facility] 05/08 14:13 Order name: Lipase; Complete Time: 15:27 [facility] 05/08 14:13 Order name: Procalcitonin; Complete Time: 16:05 [facility] 05/08 14:13 Order name: Protime (+inr); Complete Time: 15:22 [facility] 05/08 14:13 Order name: Ptt, Activated; Complete Time: 15:22 [facility] 05/08 14:13 Order name: Troponin (emerg Dept Use Only); Complete Time: 15:27 [facility] 05/08 14:13 Order name: Urine Microscopic Only; Complete Time: 17:08 [facility] 05/08 14:13 Order name: Chest Single View XRAY; Complete Time: 15:12 [facility] 05/08 14:13 Order name: Accucheck; Complete Time: 14:55 [facility] 05/08 14:13 Order name: Cardiac monitoring; Complete Time: 14:55 [facility] 05/08 14:13 Order name: EKG - Nurse/Tech; Complete Time: 15:02 [facility] 05/08 14:13 Order name: IV Saline Lock - Large Bore; Complete Time: 14:55 [facility] 05/08 14:13 Order name: Labs collected and sent; Complete Time: 14:55 [facility] 05/08 14:13 Order name: O2 Per Protocol; Complete Time: 14:55 [facility] 05/08 14:13 Order name: Amylase; Complete Time: 15:27 [facility] 05/08 14:13 Order name: Basic Metabolic Panel; Complete Time: 15:27 [facility] 05/08 14:13 Order name: Blood Culture [facility] 05/08 14:13 Order name: CBC with Automated Diff; Complete Time: 15:12 [facility] 05/08 14:13 Order name: Creatine Phosphokinase; Complete Time: 15:27 [facility] 05/08 14:13 Order name: CKMB Creatine Kinase MB; Complete Time: 15:27 [facility] 05/08 14:13 Order name: Liver (Hepatic) Function; Complete Time: 15:27 [facility] 05/08 15:52 Order name: Urine Dipstick-Ancillary; Complete Time: 16:05 [facility] 05/08 16:38 Order name: Urine Culture [facility] 05/08 14:13 Order name: O2 Sat Monitoring; Complete Time: 14:56 [facility] 05/08 14:13 Order name: Urine Dipstick-Ancillary (obtain specimen); Complete Time: 15:53 [facility] Administered Medications: No medications were administered Disposition: 19:33 Co-signature as Attending Physician, Rashawn Wagner MD I agree with the assessment and kdr plan of care. Disposition Summary: 05/08/21 18:49 Discharge Ordered Location: Home(05/08/21 18:49) [facility] Condition: Stable(05/08/21 18:49) [facility] Diagnosis - UTI/ Urinary tract infection, site not specified(05/08/21 18:49) [facility] Followup: [facility] - With: Private Physician - When: 2 - 3 days - Reason: Recheck today's complaints, Continuance of care, Re-evaluation by your physician Discharge Instructions: - Discharge Summary Sheet jm - Urinary Tract Infection, Adult [facility] Forms: - Medication Reconciliation Form [facility] - Thank You Letter [facility] - Antibiotic Education [facility] - Prescription Opioid Use [facility] Signatures: Dispatcher [employer] Rashawn Eckert MD MD kdr Mickail, Joel, PA PA jmm Brown, Zipporah RN RN zb Corrections: (The following items were deleted from the chart) 18:40 16:17 Observation [facility] 18:40 16:17 Vineet Charlton [facility] 18:40 16:17 Telemetry/MedSurg (observation) [facility] 18:40 16:17 Stable [facility] 18:40 16:17 an acute exacerbation [facility] 18:40 16:17 are unchanged [facility] 18:40 16:17 Standard jmm jmm 18:40 16:17 merrillm merrillm 18:40 16:17 UTI/ Urinary tract infection, site not specified jensen styles 18:40 16:17 Altered mental status, unspecified jensen styles
--- NOTE | 2021-05-08 16:18 | ER ---
Nurse's Notes [facility] Name: Tina Padron Age: 75 yrs Sex: Female : 1945 Arrival Date: 05/08/2021 Time: 13:50 Bed 26 Private MD: Diagnosis: UTI/ Urinary tract infection, site not specified Presentation: 05/08 14:16 Chief complaint: EMS states: patient called life alert stating that she needed help zb being transferred. Patient stated she wanted to go to the ER. Then changed her mind in route. Patient had history of UTI, currently has Left PICC line receiving abx. coming in for altered mental status. Coronavirus screen: At this time, the client does not indicate any symptoms associated with coronavirus-19. Ebola Screen: No symptoms or risks identified at this time. Initial Sepsis Screen: Does the patient meet any 2 criteria? Altered Mental Status. Does the patient have a suspected source of infection? Yes: Dysuria/Frequency/Urgency/UTI. Risk Assessment: Do you want to hurt yourself or someone else? Patient reports no desire to harm self or others. Onset of symptoms was May 08, 2021. 14:16 Acuity: TYLOR 2 zb 14:16 Method Of Arrival: EMS: [facility] zb Triage Assessment: 14:23 General: Appears uncomfortable, Behavior is agitated, uncooperative. Pain: Unable to zb use pain scale. Patient is disoriented. Neuro: Level of Consciousness is awake, alert, Oriented to person, place. Cardiovascular: Patient's skin is warm and dry. Respiratory: Airway is patent Respiratory effort is even, unlabored, Respiratory pattern is regular, symmetrical. GI: No deficits noted. : Parent/caregiver report the patient having history of UTI. Derm: Skin is fragile, is thin, Skin is dry. Musculoskeletal: Range of motion: limited in BLE. Historical: - Allergies: 19:15 Compazine; zb 19:15 Meclizine; zb - Home Meds: 19:15 aspirin 81 mg Oral TbEC 1 tab once daily [Active]; Azo-Standard Oral as needed zb [Active]; clonazepam 1 mg Oral tab 1 tab nightly [Active]; Flomax 0.4 mg Oral cp24 1 cap once daily [Active]; losartan 50 mg Oral tab 1 tab 2 times per day [Active]; meclizine 25 mg Oral tab 1 tab as needed [Active]; omeprazole 40 mg Oral cpDR 1 cap once daily [Active]; oxycodone-acetaminophen 7.5-325 mg Oral tab 1 tab every 6 hours [Active]; pantoprazole 20 mg Oral TbEC 1 tab once daily [Active]; potassium chloride 20 mEq Oral TbER 1 tab 2 times per day [Active]; simvastatin 20 mg Oral tab 1 tab once daily [Active]; Synthroid 88 mcg Oral tab 1 tab once daily [Active]; Uribel 118-10-40.8-36 mg Oral tab daily [Active]; - PMHx: 19:15 "shattered shoulder"; Anxiety; chronic uti; Hyperlipidemia; Hypertension; zb Hypothyroidism; spinal fractures; - PSHx: 19:15 Gastric Bypass; hip; knee; Shoulder; Total abdominal hysterectomy; zb - Immunization history:: Adult Immunizations up to date. - Social history:: Smoking status: unknown. Screenin:54 Abuse screen: Denies threats or abuse. Denies injuries from another. Nutritional zb screening: Had unintentional weight loss of 10 pounds or more. Tuberculosis screening: No symptoms or risk factors identified. Fall Risk Fall in past 12 months (25 points). Secondary diagnosis (15 points) impaired mobility, IV access (20 points). Ambulatory Aid- None/Bed Rest/Nurse Assist (0 pts). Gait- Normal/Bed Rest/Wheelchair (0 pts) Mental Status- Overestimates/Forgets Limitations (15 pts.). Total Wick Fall Scale indicates High Risk Score (45 or more points). Fall prevention measures have been instituted. Side Rails Up X 2 Placed Close to Nursing Station Frequent Obs/Assessments Occuring Family Present and informed to notify staff if the need to leave the bedside As available patient and family educated on Fall Prevention Program and Strategies. Assessment: 14:54 Reassessment: See triage assessment. zb 15:29 Reassessment: Patient appears in no apparent distress at this time. patient remain zb confused. at bedside. 16:30 Reassessment: Patient appears in no apparent distress at this time. Patient and/or zb family updated on plan of care and expected duration. Pain level reassessed. hospitalist at bedside. 17:30 Reassessment: Patient appears in no apparent distress at this time. Patient and/or zb family updated on plan of care and expected duration. Pain level reassessed. 18:13 Reassessment: Patient appears in no apparent distress at this time. pt and family at zb bedside. patient repositioned. 19:13 Reassessment: Patient appears in no apparent distress at this time. Patient and/or zb family updated on plan of care and expected duration. Pain level reassessed. Patient is alert, oriented x 3, equal unlabored respirations, skin warm/dry/pink. d/c instructions provided. pt wheeled out via wheelchair by tech. Vital Signs: 14:16 BP 135 / 75; Pulse 89; Resp 18; Temp 97.9; Pulse Ox 98% on R/A; Weight 44.45 kg; Height zb 5 ft. 5 in. (165.10 cm); 15:04 BP 140 / 68; Pulse 90; Resp 17; Pulse Ox 98% ; mh5 16:30 BP 113 / 73; Pulse 84; Resp 16; Pulse Ox 100% on R/A; zb 17:30 BP 143 / 90; Pulse 92; Resp 16; Pulse Ox 100% on R/A; zb 18:14 BP 99 / 80; Pulse 70; Resp 16; Pulse Ox 93% on R/A; zb 19:17 BP 125 / 58; Pulse 89; Resp 16; Pulse Ox 94% on R/A; zb 14:16 Body Mass Index 16.31 (44.45 kg, 165.10 cm) zb ED Course: 13:50 Patient arrived in ED. em1 13:59 Rashawn Wagner MD is Attending Physician. kdr 14:12 Lucien Madsen PA is PHCP. jmm 14:16 Rekha Santoyo, ALCIDES is Primary Nurse. zb 14:23 Triage completed. zb 14:39 Chest Single View XRAY In Process Unspecified. EDMS 14:54 Arm band placed on. zb 14:55 No provider procedures requiring assistance completed. Accessed PICC line. Clean \\T\\ dry. zb Good blood return. 15:02 Initial lab(s) drawn, by ED staff, by supervisor labor gang, EKG done, by ED staff, reviewed by [facility] Rashawn Wagner MD. 15:03 Patient has correct armband on for positive identification. Bed in low position. Call [facility] light in reach. Side rails up X2. Adult w/ patient. Warm blanket given. ekg monitor tech on. Pulse ox on. NIBP on. 15:53 Urine Dipstick-Ancillary Sent. [facility] 15:53 Urine Microscopic Only Sent. [facility] 15:53 Ramires cath inserted, using sterile technique, 16 Fr., by ED staff, balloon inflated, to [facility] gravity drainage, urine specimen collected. 15:54 Urine collected: Ramires catheter specimen, cloudy. [facility] 16:16 Vineet Charlton DO is Hospitalizing Provider. jensen 19:15 Patient left with her L PICC line. zb Administered Medications: No medications were administered Outcome: 16:17 Decision to Hospitalize by Provider. merrill 18:49 Discharge ordered by . jensen 19:14 Discharged to home via wheelchair, with family. zb 19:14 Condition: stable 19:14 Discharge instructions given to patient, family, Instructed on discharge instructions, follow up and referral plans. Demonstrated understanding of instructions, follow-up care. 19:17 Patient left the ED. rosa m Signatures: Dispatcher [employer] EDMS Rashawn Wagner MD MD kdr Mickail, Joel, PA PA jmm Martinez, Eric [facility] Shawna Payton [facility] Rekha Santoyo RN RN zluca
[2021-05-08 16:36] LABS: Urine Bacteria 20-50 /HPF (<20); Urine RBC NONE SEEN /HPF (NONE SEEN)
[2021-05-08] MEDS ORDERED: LORazepam 2 MG/ML VIAL ONE (17:06)
[2021-05-08 19:33] VITALS: TEMP 97.9
[2021-05-08 19:41] VITALS: BP 125/58; O2SAT 94
--- NOTE | 2021-05-11 16:14 | EKG ---
Test Date: 2021-05-08 Test Time: 15:14:47 Respiratory Coordinator: MATILDE MEASUREMENT RESULTS: Intervals: Rate: 71 CT: QRSD: 64 QT: 408 QTc: 443 [place]: P: 90 CT: QRS: 14 T: 40 INTERPRETIVE STATEMENTS: Atrial flutter Nonspecific ST and T wave abnormality Abnormal ECG Compared to ECG 05/07/2021 20:28:51 ST (T wave) deviation now present Sinus rhythm no longer present Electronically Signed On 05-11-21 16:05:42 CDT by Diaz Ramsay
== END 2021-05-08 19:17 | disposition home or self-care (01) ==
LOC: ER 13:49
DX: N39.0 Urinary tract infection, site not specified (principal); I10 Essential (primary) hypertension; Z88.8 Allergy status to other drugs, medicaments and biological substances; Z79.82 Long term (current) use of aspirin
CPT/HCPCS: 36415; 51702; 71045; 80048; 80076; 81003; 81015; 82150; 82550; 82553; 83605; 83690; 84145; 84484; 85025; 85610; 85730; 87040; 87077; 87086; 87088; 87186; 93005; 99285

== ENCOUNTER 2021-06-30 07:49 | Inpatient (IN) | payer OTHER, BC ==
--- OUTSIDE RECORDS SUMMARY | 2021-06-30 07:52 | XMS REPORT | Clinical Summary ---
:1945 Author Organization [facility] MD [facility] Address [address] [place] [address] Care Team Providers Name Role Phone Judd Fernández MD Unavailable [phone] Sarah Anthony MD Primary Care Provider Allergies Not on File Medications Not on file Active Problems Not on file Social History Tobacco Use Types Packs/Day Years Used Date Never Assessed Sex Assigned at Date Recorded Not on file Last Filed Vital Signs Not on file Plan of Treatment Not on file Results Not on fileafter 06/30/2020 Insurance Payer Benefit Plan Subscriber ID Effective Phone Address Typ e / Group Dates MEDICARE MEDICARE PART [id number] 2012-Pres [phone] [place], [place] Medicare A AND B ent 82 BLUE CROSS [place] PPO [id number] 2017-Prese PPO BLUE SHIELD POS nt GENERIC GENERIC [id number] 2017[place] [address] Tina Padron Personal/Famil Self 1945 [address] (Home) [address] [id number] [place] [address] Tina Padron Personal/Famil Self [address] (Home) [address] [id number] [place] [address]
--- NOTE | 2021-06-30 09:46 | RAD REPORT ---
EXAM DESCRIPTION: Taco Single View06/30/2021 9:14 am CLINICAL HISTORY: Cough COMPARISON: April 2021 FINDINGS: The lungs appear clear of acute infiltrate. The heart is normal size IMPRESSION: No acute pulmonary abnormalities displayed
--- NOTE | 2021-06-30 10:47 | ER ---
Nurse's Notes [facility] Name: Tina Padron Age: 75 yrs Sex: Female : 1945 Arrival Date: 06/30/2021 Time: 08:08 Bed 23 Private MD: Diagnosis: Dehydration;Altered mental status, unspecified;Dementia in other diseases classified elsewhere with behavioral disturbance;UTI/ Urinary tract infection, site not specified;Hypokalemia;Coronavirus infection, unspecified Presentation: 06/30 08:30 Chief complaint: Patient states: Right knee pain and back pain. Came via EMS . Was kh1 recently discharge from rehab. Chief complaint:. Coronavirus screen: Client denies travel out of the [place] in the last 14 days. Ebola Screen: Unable to complete the Ebola screening because: The patient is disoriented. Initial Sepsis Screen: Does the patient meet any 2 criteria? Altered Mental Status. No. Patient's initial sepsis screen is negative. Initial Sepsis Screen: Does the patient have a suspected source of infection? No. Patient's initial sepsis screen is negative. Risk Assessment: Do you want to hurt yourself or someone else? Patient reports no desire to harm self or others. Onset of symptoms was June 29, 2021. Care prior to arrival: None. Activity prior to arrival: None. 08:30 Method Of Arrival: EMS: [facility] 08:30 Acuity: TYLOR 2 [facility] Triage Assessment: 08:30 General: Appears unkempt. Pain: Complains of pain in right leg and left leg. [facility] 09:26 General: Behavior is agitated, crying, fussy, uncooperative. [facility] - Immunization history:: Adult Immunizations up to date, unknown. - Social history:: Smoking status: Patient denies any tobacco usage or history of. - Family history:: not pertinent. Screenin:25 Abuse screen: Denies threats or abuse. Nutritional screening: No deficits noted. [facility] Tuberculosis screening: No symptoms or risk factors identified. Fall Risk None identified. Assessment: 09:24 Reassessment: Patient appears in no apparent distress at this time. No changes from [facility] previously documented assessment. Patient and/or family updated on plan of care and expected duration. Pain level reassessed. Patient is alert, oriented x 3, equal unlabored respirations, skin warm/dry/pink. General: Appears in no apparent distress. 11:00 Reassessment: Patient appears in no apparent distress at this time. No changes from 1 previously documented assessment. Patient and/or family updated on plan of care and expected duration. Pain level reassessed. 12:00 Reassessment: Patient appears in no apparent distress at this time. No changes from 1 previously documented assessment. Patient and/or family updated on plan of care and expected duration. Pain level reassessed. Vital Signs: 08:30 BP 109 / 50; Pulse 75; Resp 24; Temp 98; Pulse Ox 100% on R/A; kh1 08:37 BP 109 / 60; Pulse 70; Resp 20; Temp 98.0; Pulse Ox 100% ; kh1 13:25 BP 138 / 89; Pulse 79; Resp 20; Pulse Ox 100% on R/A; kh1 17:46 Weight 63.5 kg (R); Height 5 ft. 5 in. (165.10 cm) (R); aa5 17:46 Body Mass Index 23.30 (63.50 kg, 165.10 cm) [facility] ED Course: 08:08 Patient arrived in ED. as 08:10 Mateo Fox MD is Attending Physician. alec 08:30 Mayda Blevins is Primary Nurse. kh1 08:36 Triage completed. kh1 08:37 Arm band placed on right wrist. kh1 09:15 XRAY Chest (1 view) In Process Unspecified. EDMS 09:25 No provider procedures requiring assistance completed. kh1 10:43 Dimitri Wilde MD is Hospitalizing Provider. alec 11:27 Blood Culture Sent. kh1 11:28 Blood Culture Adult (2) Sent. kh1 11:28 Lipase Sent. kh1 11:28 Basic Metabolic Panel Sent. kh1 11:28 CBC with Diff Sent. kh1 11:28 LFT's Sent. kh1 11:28 Magnesium Sent. kh1 11:28 NT PRO-BNP Sent. kh1 11:28 PT-INR Sent. kh1 11:28 Troponin (emerg Dept Use Only) Sent. kh1 11:29 Procalcitonin Sent. kh1 11:29 Urine Culture Sent. kh1 13:17 Patient has correct armband on for positive identification. Placed in gown. Bed in low kh1 position. Call light in reach. Side rails up X2. 13:18 CBC with Automated Diff Sent. kh1 13:18 CBC with Automated Diff Sent. kh1 13:18 CBC with Automated Diff Sent. kh1 13:18 Comprehensive Metabolic Panel Sent. kh1 13:18 Comprehensive Metabolic Panel Sent. kh1 13:18 Comprehensive Metabolic Panel Sent. kh1 13:18 Thyroid Stimulating Hormone Sent. kh1 13:18 CBC with Automated Diff Sent. kh1 13:18 Comprehensive Metabolic Panel Sent. [facility] 07/01 08:01 Primary Nurse role handed off by Mayda Blevins 08:01 Ximena Tidwell, RN is Primary Nurse. 18:54 Primary Nurse role handed off by Ximena Tidwell RN 07/02 07:59 Shakeel Swanson is Primary Nurse. aj2 Administered Medications: 06/30 11:49 Discontinued: NS 0.9% 1000 ml IV at 125 ml/hr continuous [facility] 11:10 Drug: levofloxacin 500 mg Volume: 100 ml; Route: IVPB; Infused Over: 60 mins; Site: [facility] Other; 11:10 Drug: Ativan (LORazepam) 1 mg {Note: tlc right groin.} Route: IVP; Site: Other; [facility] 11:10 Drug: Pepcid (famotidine) 20 mg Route: IVP; Site: Other; [facility] 11:25 Drug: NS 0.9% 500 ml Route: IV; Rate: bolus; Site: Other; 1 11:25 Drug: NS 0.9% 1000 ml Route: IV; Rate: 125 ml/hr; Site: Other; [facility] 19:21 Not Given (NOT IN PYXISs): QUEtiapine 200 mg PO once 1 19:22 Not Given (NEW ORDER GIVENn): NS 0.9% with KCl 20 mEq/L 1000 ml IV at 125 ml/hr [facility] continuous Outcome: 10:47 Decision to Hospitalize by Provider. [facility] 07/03 15:40 Patient left the ED. iw Signatures: Dispatcher [employer] EDMS Ximena Tidwell, RN Mateo Davila MD MD cha Martinez, Amelia as Williams, Irene, RN RN Dalia Rosen RN RN [facility] Mayda Blevins [facility] Shakeel Swanson ajBlu
--- NOTE | 2021-06-30 10:47 | EDPHYS ---
Physician Documentation [facility] Name: Tina Padron Age: 75 yrs Sex: Female : 1945 Arrival Date: 06/30/2021 Time: 08:08 Bed 23 Private MD: ED Physician Mateo Fox HPI: 06/30 08:35 This 75 yrs old Female presents to ER via Unassigned with complaints of cough alec and congestion , ams and foul urine. 08:35 The patient presents with abdominal pain in the lower abdomen. Onset: The alec symptoms/episode began/occurred 2 day(s) ago. The patient presents with pelvic pain, the pain radiates to the suprapubic area. Onset: The symptoms/episode began/occurred 3 day(s) ago. Modifying factors: The symptoms are alleviated by nothing, the symptoms are aggravated by. Associated signs and symptoms: Pertinent positives: dysuria, urinary frequency. Severity of symptoms: At their worst the symptoms were mild, moderate, in the emergency department the symptoms are unchanged. The patient presents with confusion, decreased responsiveness, trouble concentrating. Onset: The symptoms/episode began/occurred 3 day(s) ago. Possible causes: head injury, seizure, sepsis. The patient is not sexually active. - Immunization history:: Adult Immunizations up to date, unknown. - Social history:: Smoking status: Patient denies any tobacco usage or history of. - Family history:: not pertinent. ROS: 08:35 Constitutional: Negative for fever, chills, and weight loss, Eyes: Negative for injury, alec pain, redness, and discharge, ENT: Negative for injury, pain, and discharge, Neck: Negative for injury, pain, and swelling, Cardiovascular: Negative for chest pain, palpitations, and edema, Respiratory: Negative for shortness of breath, cough, wheezing, and pleuritic chest pain, Abdomen/GI: Negative for abdominal pain, nausea, vomiting, diarrhea, and constipation, Back: Negative for injury and pain, MS/Extremity: Negative for injury and deformity, Skin: Negative for injury, rash, and discoloration, Psych: Negative for depression, anxiety, suicide ideation, homicidal ideation, and hallucinations, Allergy/Immunology: Negative for hives, rash, and allergies, Endocrine: Negative for neck swelling, polydipsia, polyuria, polyphagia, and marked weight changes. 08:35 : Positive for flank pain, urinary frequency, small amounts, foul smelling urine. Exam: 08:35 Constitutional: This is a well developed, well nourished patient who is awake, alert, alec and in no acute distress. Head/Face: Normocephalic, atraumatic. Eyes: Pupils equal round and reactive to light, extra-ocular motions intact. Lids and lashes normal. Conjunctiva and sclera are non-icteric and not injected. Cornea within normal limits. Periorbital areas with no swelling, redness, or edema. ENT: Nares patent. No nasal discharge, no septal abnormalities noted. Tympanic membranes are normal and external auditory canals are clear. Oropharynx with no redness, swelling, or masses, exudates, or evidence of obstruction, uvula midline. Mucous membranes moist. Neck: Trachea midline, no thyromegaly or masses palpated, and no cervical lymphadenopathy. Supple, full range of motion without nuchal rigidity, or vertebral point tenderness. No Meningismus. Chest/axilla: Normal chest wall appearance and motion. Nontender with no deformity. No lesions are appreciated. Cardiovascular: Regular rate and rhythm with a normal S1 and S2. No gallops, murmurs, or rubs. Normal PMI, no JVD. No pulse deficits. Respiratory: Lungs have equal breath sounds bilaterally, clear to auscultation and percussion. No rales, rhonchi or wheezes noted. No increased work of breathing, no retractions or nasal flaring. Back: No spinal tenderness. No costovertebral tenderness. Full range of motion. Skin: Warm, dry with normal turgor. Normal color with no rashes, no lesions, and no evidence of cellulitis. MS/ Extremity: Pulses equal, no cyanosis. Neurovascular intact. Full, normal range of motion. Neuro: Awake and alert, GCS 15, oriented to person, place, time, and situation. Cranial nerves II-XII grossly intact. Motor strength 5/5 in all extremities. Sensory grossly intact. Cerebellar exam normal. Normal gait. Psych: Awake, alert, with orientation to person, place and time. Behavior, mood, and affect are within normal limits. 08:35 Abdomen/GI: Inspection: distension, that is mild, Bowel sounds: normal, active, Palpation: mild abdominal tenderness, in the suprapubic area, Liver: no appreciated palpable abnormalities, Hernia: not appreciated. Vital Signs: 08:30 BP 109 / 50; Pulse 75; Resp 24; Temp 98; Pulse Ox 100% on R/A; kh1 08:37 BP 109 / 60; Pulse 70; Resp 20; Temp 98.0; Pulse Ox 100% ; kh1 13:25 BP 138 / 89; Pulse 79; Resp 20; Pulse Ox 100% on R/A; kh1 17:46 Weight 63.5 kg (R); Height 5 ft. 5 in. (165.10 cm) (R); aa5 17:46 Body Mass Index 23.30 (63.50 kg, 165.10 cm) aa5 Procedures: 10:42 Central Line: the site was prepped with Betadine, in sterile fashion, a triple lumen alec catheter was inserted, in the right femoral vein, in 1 attempts. placement was verified, by blood return, the site was dressed with 4X4s, Tegaderm, using sterile technique, the patient tolerated the procedure, well. MDM: 08:10 Patient medically screened. alec 08:40 Differential Diagnosis: electrolyte abnormality, hypoglycemia, intracranial bleed, UTI, alec volume depletion. Differential Diagnosis: Bronchitis Influenza Upper Respiratory Infection Pharyngitis Otitis Media Pneumonia. Differential diagnosis: gastritis, non-specific abd pain, pancreatitis. Data reviewed: vital signs, nurses notes, lab test result(s), EKG, radiologic studies, plain films. Data interpreted: fitting room supervisor: rate is 70 beats/min, rhythm is regular, Pulse oximetry: on room air. Test interpretation: by ED physician or midlevel provider: ECG, plain radiologic studies. Counseling: I had a detailed discussion with the patient and/or guardian regarding: the historical points, exam findings, and any diagnostic results supporting the discharge/admit diagnosis, lab results, radiology results, the need for further work-up and treatment in the hospital. 06/30 08:34 Order name: Basic Metabolic Panel [facility] 06/30 08:34 Order name: CBC with Diff 06/30 08:34 Order name: LFT's [facility] 06/30 08:34 Order name: Magnesium alec 06/30 08:34 Order name: NT PRO-BNP alec 06/30 08:34 Order name: PT-INR [facility] 06/30 08:34 Order name: Troponin (emerg Dept Use Only) [facility] 06/30 08:34 Order name: Lipase [facility] 06/30 08:34 Order name: Blood Culture Adult (2) [facility] 06/30 08:34 Order name: Lactate; Complete Time: 11:48 [facility] 06/30 08:34 Order name: Urine Culture [facility] 06/30 08:34 Order name: Procalcitonin; Complete Time: 11:48 [facility] 06/30 08:34 Order name: Basic Metabolic Panel; Complete Time: 11:48 [facility] 06/30 08:34 Order name: CBC with Automated Diff [facility] 06/30 08:34 Order name: Liver (Hepatic) Function; Complete Time: 11:48 [facility] 06/30 08:34 Order name: Magnesium; Complete Time: 11:48 [facility] 06/30 08:34 Order name: NT PRO-BNP; Complete Time: 11:48 [facility] 06/30 08:34 Order name: Protime (+INR); Complete Time: 11:48 [facility] 06/30 08:34 Order name: Troponin (Emerg Dept Use Only); Complete Time: 11:48 [facility] 06/30 08:34 Order name: Lipase; Complete Time: 11:48 [facility] 06/30 08:34 Order name: Blood Culture [facility] 06/30 11:22 Order name: Urine Dipstick-Ancillary; Complete Time: 11:48 [facility] 06/30 12:19 Order name: SARS-COV-2 RT PCR [facility] 06/30 12:21 Order name: Thyroid Stimulating Hormone [facility] 06/30 12:21 Order name: CBC with Automated Diff [facility] 06/30 12:21 Order name: Comprehensive Metabolic Panel [facility] 06/30 12:21 Order name: Comprehensive Metabolic Panel [facility] 06/30 12:21 Order name: Comprehensive Metabolic Panel [facility] 06/30 12:21 Order name: Comprehensive Metabolic Panel [facility] 06/30 08:34 Order name: XRAY Chest (1 view); Complete Time: 11:48 [facility] 06/30 08:34 Order name: EKG; Complete Time: 08:35 [facility] 06/30 08:34 Order name: Cardiac monitoring; Complete Time: 11:28 [facility] 06/30 08:34 Order name: EKG - Nurse/Tech [facility] 06/30 08:34 Order name: IV Saline Lock; Complete Time: 11:28 [facility] 06/30 08:34 Order name: Labs collected and sent; Complete Time: 11:28 [facility] 06/30 08:34 Order name: O2 Per Protocol; Complete Time: 11:29 [facility] 06/30 08:34 Order name: O2 Sat Monitoring; Complete Time: 11:29 [facility] 06/30 08:34 Order name: Urine Dipstick-Ancillary (obtain specimen); Complete Time: 11:28 [facility] 06/30 12:21 Order name: CONS Physician Consult; Complete Time: 13:18 [facility] 06/30 12:21 Order name: Physical Therapy Consult [facility] 06/30 12:21 Order name: CBC with Automated Diff [facility] 06/30 12:21 Order name: CBC with Automated Diff [facility] 06/30 12:21 Order name: CBC with Automated Diff ED[facility] 06/30 13:10 Order name: CBC Smear Scan ED[facility] 06/30 14:32 Order name: Vitamin B12 Level EDNM 07/01 09:09 Order name: T4 Free EDNM 07/01 19:15 Order name: Potassium EDNM 07/02 14:47 Order name: Homocysteine EDNM 07/03 12:08 Order name: Methylmalonic Acid EDNM Administered Medications: 11:49 Discontinued: NS 0.9% 1000 ml IV at 125 ml/hr continuous alec 11:10 Drug: levofloxacin 500 mg Volume: 100 ml; Route: IVPB; Infused Over: 60 mins; Site: [facility] Other; 11:10 Drug: Ativan (LORazepam) 1 mg {Note: tlc right groin.} Route: IVP; Site: Other; [facility] 11:10 Drug: Pepcid (famotidine) 20 mg Route: IVP; Site: Other; [facility] 11:25 Drug: NS 0.9% 500 ml Route: IV; Rate: bolus; Site: Other; kh1 11:25 Drug: NS 0.9% 1000 ml Route: IV; Rate: 125 ml/hr; Site: Other; 1 19:21 Not Given (NOT IN PYXISs): QUEtiapine 200 mg PO once kh1 19:22 Not Given (NEW ORDER GIVENn): NS 0.9% with KCl 20 mEq/L 1000 ml IV at 125 ml/hr kh1 continuous Disposition Summary: 06/30/21 10:47 Hospitalization Ordered Hospitalization Status: Inpatient Admission alec Provider: Dimitri Wilde cha Condition: Fair alec Problem: new alec Symptoms: are unchanged alec Bed/Room Type: Standard alec Location: Telemetry/MedSurg (Inpatient)(07/03/21 12:54) Room Assignment: 414(07/03/21 12:54) Diagnosis - Dehydration alec - Altered mental status, unspecified alec - Dementia in other diseases classified elsewhere with behavioral disturbance alec - UTI/ Urinary tract infection, site not specified alec - Hypokalemia alec - Coronavirus infection, unspecified alec Forms: - Medication Reconciliation Form alec - SBAR form alec Signatures: Dispatcher [employer] EDMS Diana Arias Martha RN RN Mateo Zapata MD MD cha Williams, Irene, RN RN Mayda Blevins [facility] Corrections: (The following items were deleted from the chart) 10:50 08:35 CORONAVIRUS+MRHANNAH.BRZ ordered. EDNM EDMS 19:51 10:47 Telemetry/MedSurg (Inpatient) [facility] 19:51 10:47 alec 07/03 12:54 06/30 19:51 BR ER HOLD [facility] 07/03 12:54 06/30 19:51 ERHOLD- [facility]
[2021-06-30 10:49] LABS: Absolute Lymphocytes (CBC) 0.5 K/uL (0.7-4.9); Basophils % 0.3 % (0-1.3); Hematocrit 39.5 % (36.0-45.0); Lymphocytes % 4.8 % (15.3-44.8); MPV 8.2 fL (7.6-11.3); RBC Red Blood Cell Count 4.58 M/uL (3.86-4.86)
[2021-06-30 11:00] LABS: Protime INR 1.02
[2021-06-30 11:06] LABS: ALT/SGPT 14 U/L (12-78); AST/SGOT 16 U/L (15-37); Albumin 2.4 g/dL (3.4-5.0); Alkaline Phosphatase 150 U/L (45-117); BUN Blood Urea Nitrogen 15 mg/dL (7-18); Bicarbonate 22 mmol/L (21-32); Bilirubin Direct 0.2 mg/dL (0-0.2); Bilirubin Total 0.5 mg/dL (0.2-1.0); Glucose Level 76 mg/dL (74-106); Lipase 24 U/L (73-393); Magnesium 2.2 mg/dL (1.8-2.4); NT PRO-BNP 1202 pg/mL (<125); Potassium 3.4 mmol/L (3.5-5.1); Protein, Total 5.5 g/dL (6.4-8.2); Sodium Level 139 mmol/L (136-145); Troponin (Emerg Dept Use Only) < 0.02 ng/mL (0.0-0.045)
[2021-06-30 11:22] LABS: Urine Blood 1+ (Negative); Urine Glucose Negative (Negative); Urine Protein 2+ (Negative)
[2021-06-30] MEDS ORDERED: FAMOTIDINE 20 MG/2 ML VIAL IV ONE (11:26)
[2021-06-30] MEDS ORDERED: Levofloxacin500mg IV 500 MG/100 ML BAG IV ONE (11:26)
[2021-06-30] MEDS ORDERED: NA CHLORIDE 0.9% 1,000 ML ONE (11:26)
[2021-06-30] MEDS ORDERED: LORazepam 2 MG/ML VIAL ONE (11:26)
[2021-06-30] MEDS ORDERED: NA CHLORIDE 0.9% 500 ML ONE (11:26)
--- NOTE | 2021-06-30 12:42 | P.HP ---
Certification for Inpatient Patient admitted to: Inpatient With expected LOS: >2 Midnights Patient will require the following post-hospital care: Correction (possible hospice candidate) Practitioner: I am a practitioner with admitting privileges, knowledge of patient current condition, hospital course, and medical plan of care. Services: Services provided to patient in accordance with Admission requirements found in Title 42 Section 412.3 of the Code of Federal Regulations Patient History Date of Service: 06/30/21 Primary Care Provider: Celestine Reason for admission: UTI, delirium History of Present Illness: Patient is a pleasant woman with a past history of htn, hypothyroidism. She had a uti last month was sent home on . She then had a was in [employer] for possible pacemaker. The patient was sent to a rehab center. She also was positive for covid approx 5 weeks ago. [facility] due to running out of medicare days. The patient went home with her . She has been up and delirious the entire time. Mr Padron has not slept for the last 2 days and brought her back to the hospital. He is also worried that she is not eating. Has lost approx 50 lbs in the last 3 months. She is bed bound. Mr Padron is not able to lift her as he is an elderly gentleman in his 70s. He is also still working. Allergies prochlorperazine [From Compazine] Allergy (Intermediate, Verified 02/21/21 18:05) PYSCHOSIS Prochlorperazine Maleate Allergy (Uncoded 02/21/21 18:05) Unknown Home medications list reviewed: Yes Home Medications: Oxycodone HCl/Acetaminophen [Prolate 7.5-300 mg Tablet] 1 tab PO PRN PRN 02/21/21 clonazePAM [Clonazepam] 1 mg PO BEDTIME 02/21/21 Gabapentin 1 tab PO BEDTIME 05/01/21 Levothyroxine [Synthroid*] 1 tab PO DAILY 05/01/21 hydroCHLOROthiazide [Hydrochlorothiazide] 1 cap PO DAILY 05/01/21 - Past Medical/Surgical History Has patient received pneumonia vaccine in the past: No Diabetic: No -: Hypertension -: Hypothyroidism -: B-cell lymphoma -: DDD/DJD of spine -: Chronic recurrent UTI requiring long-term antibiot -: shingles ( ) -: Vertigo -: Anxiety -: spinal fractures -: Hysterectomy -: Cholecystectomy, Gastric Bypass -: Gastric torsion repair -: Right Hip surgery -: Knee surgery -: Port-A-Cath placement and removal -: Right Shoulder Sx, LISA lens replacement -: TONSILLECTOMY Psychosocial/ Personal History: The patient is originally from [place]. She moved to the area in July. She is . She has 3 children. - Family History Mother -: Heart disease, Hypertension, Diabetes, Kidney disease Father -: Heart disease, Diabetes, Other (see notes) Notes: Alzheimers - Social History Alcohol use: No CD- Drugs: No Caffeine use: Yes Review of Systems is unable to be obtained Musculoskeletal: Leg Pain Physical Examination - Physical Exam General: In no apparent distress, Delirious HEENT: Atraumatic, PERRLA, Mucous membr. moist/pink, EOMI, Sclerae nonicteric Neck: Supple, 2+ carotid pulse no bruit, No LAD, Without JVD or thyroid abnormality Respiratory: Clear to auscultation bilaterally, Normal air movement Cardiovascular: Regular rate/rhythm, Normal S1 S2 Gastrointestinal: Normal bowel sounds, No tenderness Musculoskeletal: No tenderness Integumentary: No rashes Neurological: Normal gait, Normal speech, Normal strength at 5/5 x4 extr, Normal tone, Normal affect Lymphatics: No axilla or inguinal lymphadenopathy - Studies Laboratory Data (last 24 hrs) 06/30/21 10:35: PT 11.7, INR 1.02 06/30/21 10:35: WBC 9.60, Hgb 12.9, Hct 39.5, Plt Count 219 06/30/21 10:35: Sodium 139, Potassium 3.4 L, BUN 15, Creatinine 0.72, Glucose 76, Magnesium 2.2, Total Bilirubin 0.5, AST 16, ALT 14, Alkaline Phosphatase 150 H, Lipase 24 L Assessment and Plan - Problems (Diagnosis) (1) UTI (urinary tract infection) Current Visit: Yes Status: Acute Plan: will admit her for fluids. 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 she had e coli, sensitive to bactrim and E fecalis sensitive to nitrofurantin. Qualifiers: Urinary tract infection type: acute cystitis (2) Delirium Current Visit: Yes Status: Acute Plan: Patient has been declining. She seems to have been declining for the last [address] Ramsay. Consider penitentiary placement. However her extreme weight loss is not a good sign. (3) End of life care Current Visit: Yes Status: Acute Plan: Have had a long talk with the patient spouse. Will consult Hospice for the . The uti is not a big problem. However the patient has been decl ining rapidly for the past 3 months. She cannot live home alone anymore. She is calling for her father all night Long(father has been for 20years). (4) COVID Current Visit: Yes Status: Resolved Plan: Patient was positive more than 5 weeks ago. She is asymptomatic. No need for treatment. Have discussed the patient with Dr. Maxwell. She will have to be on the 4th floor. However she is not requiring any steroids or Monoclonal antibody. Discharge Plan: Senior Living Plan to discharge in: Greater than 2 days - Advance Directives Does patient have a Living Will: No Does patient have a Durable POA for Healthcare: No - Code Status/Comfort Care Code Status Assessed: No Code Status: Full Code Physician Review: Patient Assessed, Agree with Above Assessment and Plan (spouse agreed) Critical Care: No Time Spent Managing Pts Care (In Minutes): 45
[2021-06-30] MEDS: NA CHLORIDE 0.9% 1,000 ML IV SCH (13:00)
[2021-06-30 13:10] LABS: Blood Morphology Comment NOT SEEN (NOT SEEN); Platelet Estimate ADEQ; White Blood Cell Scan OK (OK)
[2021-06-30] MEDS: ENOXAPARIN 30 MG/0.3 ML SQ SCH (18:00)
[2021-06-30] MEDS ORDERED: ENOXAPARIN 30 MG/0.3 ML SQ ONE (18:48)
[2021-06-30] MEDS: SMZ./TMP. 800/160 MG TABLET PO SCH (20:35)
[2021-06-30] MEDS: GABAPENTIN 300 MG CAP PO SCH (20:36)
[2021-06-30] MEDS: NITROFURAN MACRO 100 MG CAP PO SCH (20:36)
[2021-06-30] MEDS: clonazePAM 0.5 MG TAB PO PRN (20:36)
[2021-06-30] MEDS ORDERED: SMZ./TMP. 800/160 MG TABLET ONE (20:46)
[2021-06-30] MEDS ORDERED: GABAPENTIN 300 MG CAP ONE (20:46)
[2021-06-30] MEDS ORDERED: NITROFURAN MACRO 100 MG CAP PO ONE (20:46)
[2021-06-30] MEDS ORDERED: clonazePAM 0.5 MG TAB ONE (20:47)
[2021-06-30] MEDS ORDERED: QUETIAPINE 100MG TAB ONE (20:54)
[2021-07-01] MEDS ORDERED: NA CHLORIDE 0.9% 1,000 ML ONE ×2 (03:43→21:22)
[2021-07-01] MEDS ORDERED: PANTOPRAZOLE 40MG TABLET PO ONE (03:43)
[2021-07-01 07:59] LABS: Absolute Lymphocytes (CBC) 0.4 K/uL (0.7-4.9); Basophils % 1.1 % (0-1.3); Hematocrit 28.2 % (36.0-45.0); Lymphocytes % 8.3 % (15.3-44.8); MPV 8.7 fL (7.6-11.3); RBC Red Blood Cell Count 3.24 M/uL (3.86-4.86)
[2021-07-01 08:18] LABS: Albumin 2.1 g/dL (3.4-5.0); Bilirubin Total 0.3 mg/dL (0.2-1.0); Potassium 3.1 mmol/L (3.5-5.1); Protein, Total 4.7 g/dL (6.4-8.2)
[2021-07-01] MEDS ORDERED: SMZ./TMP. 800/160 MG TABLET ONE ×2 (08:20→20:57)
[2021-07-01] MEDS ORDERED: NITROFURAN MACRO 100 MG CAP PO ONE ×2 (08:20→20:57)
[2021-07-01 08:28] LABS: Thyroid Stimulating Hormone 8.09 uIU/mL (0.360-3.740)
[2021-07-01] MEDS: PANTOPRAZOLE 40MG TABLET PO SCH (10:25)
[2021-07-01] MEDS: NITROFURAN MACRO 100 MG CAP PO SCH ×2 (10:25→21:00)
[2021-07-01] MEDS: clonazePAM 0.5 MG TAB PO PRN ×2 (10:25→21:11)
[2021-07-01] MEDS: LEVOTHYROXINE SOD 0.075 MG TAB PO SCH (10:25)
[2021-07-01] MEDS: SMZ./TMP. 800/160 MG TABLET PO SCH ×2 (10:25→21:00)
[2021-07-01] MEDS ORDERED: clonazePAM 0.5 MG TAB ONE ×2 (10:40→21:25)
[2021-07-01] MEDS ORDERED: POTASSIUM CL SA 10 MEQ TAB PO ONE ×2 (12:03→12:35)
[2021-07-01 13:32] VITALS: BMI 23.3
[2021-07-01] MEDS ORDERED: PNEUMOCOCCAL VACCINE 0.5 ML IMVAC ONE (15:00)
[2021-07-01] MEDS ORDERED: ENOXAPARIN 30 MG/0.3 ML SQ ONE (16:43)
[2021-07-01] MEDS: ENOXAPARIN 30 MG/0.3 ML SQ SCH (17:00)
[2021-07-01] MEDS ORDERED: GABAPENTIN 300 MG CAP ONE (20:57)
[2021-07-01] MEDS ORDERED: KCL 20 MEQ/100 mL IVPB 20 MEQ/100 ML BAG IV ONE (20:57)
[2021-07-01] MEDS: GABAPENTIN 300 MG CAP PO SCH (21:00)
[2021-07-01] MEDS: NA CHLORIDE 0.9% 1,000 ML IV SCH (21:10)
--- NOTE | 2021-07-01 21:34 | CON ---
Reason For Consultation: Consultation called by Dr. Wilde because of altered mental status and delir ium. History Of Present Illness: Ms. Padron is a 75-year-old right-handed patient, who was admitted to [facility] after she was recently sent home from rehab. She is COVID positive and has hyperte nsion and urinary tract infection and reported events at home, was disoriented, speaking tangentially , incoherently. There is unexplained 50-pound weight loss in 3 months, which is being evaluated by Layo Wilde. At [facility], her workup revealed essentially unremarkable complete blood count with differential before hydration and after hydration, hemoglobin of 9.4. Coagulation panel was nor mal. Chemistries show very low potassium of 3.1. Her thyroid-stimulating hormone level was elevated at 8.09. Procalcitonin was normal at less than 0.05. Lactic acid normal at 4.7. Urinalysis showed 3+ esterase, 2+ protein, 1+ blood, and she is positive for COVID-19 by RT-PCR. Her chest x-ray show ed no acute cardiopulmonary abnormalities. Past Medical History: Hypertension, hypothyroidism, B-cell lymphoma, recurrent urinary tract infecti ons, unexplained weight loss, shingles, vertigo, anxiety. Past Surgical History: Hysterectomy, cholecystectomy, gastric bypass, right hip surgery, knee surger y, catheter placements, right shoulder surgery, tonsillectomy. Medications: At home oxycodone, acetaminophen 7.5/300 daily as needed, clonazepam 0.1 mg at bedtime, gabapentin at bedtime, Synthroid daily, hydrochlorothiazide daily. Allergies: COMPAZINE AND PROCHLORPERAZINE. Family History: Positive for heart disease, hypertension, diabetes, kidney disease in her mother and heart disease. Diabetes in father. Social History: No alcohol, tobacco, or IV drug use. Review of Systems: The patient is very tangential, unable to get a reliable review of systems. Physical Examination: Vital Signs: Blood pressure range 129 to 166/76 to 87, pulse 74 to 88, respiratory rate 14 to 20, te mperature 97.8, and oxygen saturation 100% on room air. General: Ms. Padron is resting in bed. She has had lunch. She does speak tangentially, saying that she wants to go home and asking for her . She intermittently will respond to questions. She has no general exam abnormality, except she had some mild edema in the lower extremities. Neurological: She is alert and oriented to person, but not to situation and place. She has some dif ficulty following commands, but eventually moves both hands to command, but did not move legs to comm and. Her motor examination difficult to fully assess, but she did move the arms well and the leg. S ensation appears intact in the upper and lower extremities with [id number] testing, and tone appear s normal. Reflexes are remarkable in the upper and lower extremities. Gait, she has been ambulating with the physical therapist. Assessment: Ms. Padron is 75-year-old patient with encephalopathy likely related to COVID infection. She does have hypokalemia, which may be a contributing factor. In addition, her thyroid-stimulatin g hormone level was elevated and perhaps TSH, requires adjustment. She does not have any significant liver dysfunction or renal dysfunction. Urinalysis suggests a urinary tract infection. Plan: 1.Management of urinary tract infection as appropriate. She is currently on Bactrim twice daily, bu t may require adjustment of thyroid medication. She is oxygenating very well, does not require suppl emental oxygen. 2.She may benefit from an EEG to help stratify medications like gabapentin, which she is on at 300 m g twice daily. She may be discharged home with home health with speech therapy along with physical and occupational therapy. CLARIBEL/LAUREL Voice ID: [id number] Report ID: [id number]
--- NOTE | 2021-07-01 22:07 | P.PN ---
Subjective Date of Service: 07/01/21 Primary Care Provider: Celestine Chief Complaint: UTI, delirium Subjective: Improving Review of Systems is unable to be obtained Physical Examination - Vital Signs Temperature: 98.2 F Blood Pressure: 143/85 Pulse: 85 Respirations: 18 Pulse Ox (%): 98 - Physical Exam General: Demented HEENT: Atraumatic, PERRLA, EOMI Neck: Supple, JVD not distended Respiratory: Clear to auscultation bilaterally, Normal air movement Cardiovascular: Regular rate/rhythm, Normal S1 S2 Gastrointestinal: Normal bowel sounds, No tenderness Musculoskeletal: No tenderness Integumentary: No rashes Neurological: Normal speech, Normal tone, Normal affect Lymphatics: No axilla or inguinal lymphadenopathy Assessment & Plan - Problems (Diagnosis) (1) UTI (urinary tract infection) Current Visit: Yes Status: Acute Plan: will admit her for fluids. 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 she had e coli, sensitive to bactrim and E fecalis sensitive to nitrofurantin. Qualifiers: Urinary tract infection type: acute cystitis (2) Delirium Current Visit: Yes Status: Acute Plan: Patient has been declining. She seems to have been declining for the last [address] Ramsay. Consider jail placement. However her extreme weight loss is not a good sign. 07/01 worsening dementia. Possible due to encephalopathy with covid Will need placement vs hospice. Will have [facility] hosp[facility] discuss with the patients familly (3) End of life care Current Visit: Yes Status: Acute Plan: Have had a long talk with the patient spouse. Will consult Hospice for the . The uti is not a big problem. However the patient has been declining rapidly for the past 3 months. She cannot live home alone anymore. She is calling for her father all night Long(father has been for 20years). (4) COVID Current Visit: Yes Status: Resolved Plan: Patient was positive more than 5 weeks ago. She is asymptomatic. No need for treatment. Have discussed the patient with Dr. Maxwell. She will have to be on the 4th floor. However she is not requiring any steroids or Monoclonal antibody. Physician Review: Patient Assessed, Agree with Above Assessment and Plan (spouse agreed)
[2021-07-02] MEDS ORDERED: PANTOPRAZOLE 40MG TABLET PO ONE (02:04)
[2021-07-02] MEDS: NA CHLORIDE 0.9% 1,000 ML IV SCH ×2 (05:00→18:20)
[2021-07-02] MEDS: PANTOPRAZOLE 40MG TABLET PO SCH (06:30)
[2021-07-02] MEDS ORDERED: SMZ./TMP. 800/160 MG TABLET ONE ×2 (08:48→20:11)
[2021-07-02] MEDS ORDERED: NITROFURAN MACRO 100 MG CAP PO ONE ×2 (08:48→20:11)
[2021-07-02] MEDS ORDERED: PANTOPRAZOLE 40 MG INJ ONE (08:49)
[2021-07-02] MEDS ORDERED: NA CHLORIDE 0.9% 1,000 ML ONE (08:49)
[2021-07-02] MEDS: NITROFURAN MACRO 100 MG CAP PO SCH ×2 (09:00→20:32)
[2021-07-02] MEDS: LEVOTHYROXINE SOD 0.075 MG TAB PO SCH (09:00)
[2021-07-02] MEDS: SMZ./TMP. 800/160 MG TABLET PO SCH ×2 (09:00→20:32)
[2021-07-02 09:04] LABS: Absolute Lymphocytes (CBC) 0.5 K/uL (0.7-4.9); Hematocrit 27.2 % (36.0-45.0); Lymphocytes % 7.5 % (15.3-44.8); MPV 8.6 fL (7.6-11.3); RBC Red Blood Cell Count 3.11 M/uL (3.86-4.86)
[2021-07-02 09:16] LABS: Albumin 2.1 g/dL (3.4-5.0); Bilirubin Total 0.3 mg/dL (0.2-1.0); Protein, Total 4.7 g/dL (6.4-8.2)
--- NOTE | 2021-07-02 15:30 | P.PN ---
Subjective Date of Service: 07/02/21 Primary Care Provider: Celestine Chief Complaint: UTI, delirium Subjective: No new changes Patient is very agitated at night. Needs increased clonazepam Review of Systems is unable to be obtained Physical Examination - Vital Signs Temperature: 98.6 F Blood Pressure: 139/72 Pulse: 104 Respirations: 17 Pulse Ox (%): 100 - Physical Exam General: Alert, In no apparent distress HEENT: Atraumatic, PERRLA, EOMI Neck: Supple, JVD not distended Respiratory: Clear to auscultation bilaterally, Normal air movement Cardiovascular: Regular rate/rhythm, Normal S1 S2 Gastrointestinal: Normal bowel sounds, No tenderness Musculoskeletal: No tenderness Integumentary: No rashes Neurological: Normal speech, Normal tone, Normal affect Lymphatics: No axilla or inguinal lymphadenopathy Assessment & Plan - Problems (Diagnosis) (1) UTI (urinary tract infection) Current Visit: Yes Status: Acute Plan: will admit her for fluids. 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 she had e coli, sensitive to bactrim and E fecalis sensitive to nitrofurantin. Qualifiers: Urinary tract infection type: acute cystitis (2) Delirium Current Visit: Yes Status: Acute Plan: Patient has been declining. She seems to have been declining for the last [address] Ramsay. Consider emt intermediate placement. However her extreme weight loss is not a good sign. 07/02 worsening dementia. Possible due to encephalopathy with covid Discussed with Her Sina Padron Will consult hospice he would like to an inpatient facility as she is very agitated and difficult to manage at night. (3) End of life care Current Visit: Yes Status: Acute Plan: Have had a long talk with the patient spouse. Will consult Hospice for the . The uti is not a big problem. However the patient has been declining rapidly for the past 3 months. She cannot live home alone anymore. She is calling for her father all night Long(father has been for 20years). (4) COVID Current Visit: Yes Status: Resolved Plan: Patient was positive more than 5 weeks ago. She is asymptomatic. No need for treatment. Have discussed the patient with Dr. Maxwell. She will have to be on the 4th floor. However she is not requiring any steroids or Monoclonal antibody. Discharge Plan: Home Plan to discharge in: 24 Hours - Code Status/Comfort Care Code Status Assessed: No Physician Review: Patient Assessed, Agree with Above Assessment and Plan (spouse agreed) Critical Care: No Time Spent Managing Pts Care (In Minutes): 40
[2021-07-02] MEDS: ENOXAPARIN 30 MG/0.3 ML SQ SCH (17:00)
[2021-07-02] MEDS ORDERED: ENOXAPARIN 30 MG/0.3 ML SQ ONE (18:49)
[2021-07-02] MEDS ORDERED: GABAPENTIN 300 MG CAP ONE (20:11)
[2021-07-02] MEDS ORDERED: clonazePAM 0.5 MG TAB ONE (20:12)
[2021-07-02] MEDS: GABAPENTIN 300 MG CAP PO SCH (20:32)
[2021-07-03] MEDS: NA CHLORIDE 0.9% 1,000 ML IV SCH ×2 (01:02→07:40)
[2021-07-03] MEDS ORDERED: NA CHLORIDE 0.9% 1,000 ML ONE ×2 (01:17→15:20)
[2021-07-03] MEDS: clonazePAM 0.5 MG TAB PO PRN (02:18)
[2021-07-03] MEDS ORDERED: clonazePAM 0.5 MG TAB ONE (02:40)
[2021-07-03 04:22] LABS: Absolute Lymphocytes (CBC) 0.5 K/uL (0.7-4.9); Basophils % 0.4 % (0-1.3); Hematocrit 30.3 % (36.0-45.0); Lymphocytes % 8.3 % (15.3-44.8); MPV 8.7 fL (7.6-11.3); RBC Red Blood Cell Count 3.46 M/uL (3.86-4.86)
[2021-07-03 04:56] LABS: Bilirubin Total 0.4 mg/dL (0.2-1.0); Potassium 3.9 mmol/L (3.5-5.1); Protein, Total 4.7 g/dL (6.4-8.2)
[2021-07-03] MEDS ORDERED: LORazepam 2 MG/ML VIAL IV ONE (04:56)
[2021-07-03] MEDS ORDERED: LORazepam 2 MG/ML VIAL ONE ×3 (05:31→15:20)
[2021-07-03] MEDS: PANTOPRAZOLE 40MG TABLET PO SCH (06:30)
[2021-07-03] MEDS: NITROFURAN MACRO 100 MG CAP PO SCH ×2 (07:44→21:42)
[2021-07-03] MEDS: SMZ./TMP. 800/160 MG TABLET PO SCH ×2 (07:44→21:42)
[2021-07-03] MEDS: LEVOTHYROXINE SOD 0.075 MG TAB PO SCH (07:44)
[2021-07-03] MEDS: clonazePAM 1 MG TAB PO PRN ×2 (08:01→21:42)
[2021-07-03] MEDS ORDERED: clonazePAM 1 MG TAB ONE (08:13)
[2021-07-03] MEDS ORDERED: POTASSIUM CL SA 10 MEQ TAB PO ONE (09:00)
[2021-07-03] MEDS ORDERED: KCL 20 MEQ/100 mL IVPB 20 MEQ/100 ML BAG IV SCH (09:00)
[2021-07-03] MEDS: LORazepam 2 MG/ML VIAL IV PRN ×2 (09:06→15:00)
[2021-07-03] MEDS ORDERED: KCL 20 MEQ/100 mL IVPB 20 MEQ/100 ML BAG IV ONE (09:27)
[2021-07-03] MEDS: ENOXAPARIN 30 MG/0.3 ML SQ SCH (17:00)
--- NOTE | 2021-07-03 18:28 | P.PN ---
Subjective Date of Service: 07/03/21 Primary Care Provider: Celestine Chief Complaint: UTI, delirium Have discussed with son and Agree with hospice Review of Systems is unable to be obtained Physical Examination - Vital Signs Temperature: 98.2 F Blood Pressure: 115/65 Pulse: 91 Respirations: 17 Pulse Ox (%): 99 - Physical Exam General: Delirious HEENT: Atraumatic, PERRLA, EOMI Neck: Supple, JVD not distended Respiratory: Clear to auscultation bilaterally, Normal air movement Cardiovascular: Regular rate/rhythm, Normal S1 S2 Gastrointestinal: Normal bowel sounds, No tenderness Musculoskeletal: No tenderness Integumentary: No rashes Neurological: Normal speech, Normal tone, Normal affect Lymphatics: No axilla or inguinal lymphadenopathy - Studies Microbiology Data (last 24 hrs): 06/30/21 11:20 Catheterized Urine [place] Count - Final >100,000 CFU/ML. 06/30/21 11:20 Catheterized Urine - Final Klebsiella Pneumoniae Assessment & Plan - Problems (Diagnosis) (1) Delirium Current Visit: Yes Status: Acute Plan: Patient has been declining. She seems to have been declining for the last [address] Ramsay. Consider terminal manager placement. However her extreme weight loss is not a good sign. 07/02 worsening dementia. Possible due to encephalopathy with covid Discussed with Her Sina Padron Will consult hospice he would like to an inpatient facility as she is very agitated and difficult to manage at night. (2) End of life care Current Visit: Yes Status: Acute Plan: Have had a long talk with the patient spouse. Will consult Hospice for the . The uti is not a big problem. However the patient has been declining rapidly for the past 3 months. She cannot live home alone anymore. She is calling for her father all night Long(father has been for 20years). (3) COVID Current Visit: Yes Status: Resolved Plan: Patient was positive more than 5 weeks ago. She is asymptomatic. No need for treatment. Have discussed the patient with Dr. Maxwell. She will have to be on the 4th floor. However she is not requiring any steroids or Monoclonal antibody. (4) UTI (urinary tract infection) Current Visit: Yes Status: Resolved Plan: will admit her for fluids. 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 she had e coli, sensitive to bactrim and E fecalis sensitive to nitrofurantin. Qualifiers: Urinary tract infection type: acute cystitis - Code Status/Comfort Care Code Status Assessed: No Code Status: Do Not Attempt Resuscitat Physician Review: Patient Assessed, Agree with Above Assessment and Plan (spouse agreed) Critical Care: No Time Spent Managing Pts Care (In Minutes): 20
[2021-07-03] MEDS: GABAPENTIN 300 MG CAP PO SCH (21:42)
[2021-07-03 23:47] VITALS: O2SAT 90
[2021-07-04] MEDS: NA CHLORIDE 0.9% 1,000 ML IV SCH (04:05)
[2021-07-04] MEDS: LORazepam 2 MG/ML VIAL IV PRN (04:12)
[2021-07-04] MEDS: PANTOPRAZOLE 40MG TABLET PO SCH (05:40)
[2021-07-04 06:09] LABS: BUN Blood Urea Nitrogen 10 mg/dL (7-18); Bicarbonate 20 mmol/L (21-32); Glucose Level 60 mg/dL (74-106); Phosphorus 2.7 mg/dL (2.5-4.9); Potassium 3.6 mmol/L (3.5-5.1); Sodium Level 141 mmol/L (136-145)
[2021-07-04] MEDS ORDERED: KCL 20 MEQ/100 mL IVPB 20 MEQ/100 ML BAG IV SCH (07:00)
[2021-07-04 08:55] VITALS: BP 118/57; TEMP 97.4
[2021-07-04] MEDS: NITROFURAN MACRO 100 MG CAP PO SCH (09:49)
[2021-07-04] MEDS: SMZ./TMP. 800/160 MG TABLET PO SCH (09:49)
[2021-07-04] MEDS: LEVOTHYROXINE SOD 0.075 MG TAB PO SCH (09:49)
[2021-07-04] MEDS ORDERED: ONDANSETRON 4 MG/2 ML VIAL IV PRN (11:07)
[2021-07-04] MEDS ORDERED: SCOPOLAMINE HYDROBROMIDE PATCH TD PRN (11:07)
[2021-07-04] MEDS ORDERED: BISACODYL 10 MG RECTAL SUPP PR PRN (11:07)
[2021-07-04] MEDS ORDERED: LORazepam 2 MG/ML VIAL IV PRN ×2 (11:07→11:10)
[2021-07-04] MEDS ORDERED: ACETAMINOPHEN 650MG/RECT SUPP PR PRN (11:07)
[2021-07-04] MEDS ORDERED: QUETIAPINE 25 MG TAB PO SCH (21:00)
== END 2021-07-04 11:30 | disposition hospice, inpatient (51) | DRG 689 ==
LOC: ER 07:49 → ERHOLD 12:17 → 4TH 07-03 14:52
PROVIDERS: ADMIT Internal Medicine; ATTEND Internal Medicine
PROC: 06HM33Z Insertion of Infusion Device into Right Femoral Vein, Percutaneous Approach (ICD-10-PCS; principal; 2021-06-30)
DX: N30.00 Acute cystitis without hematuria (principal); U07.1 COVID-19; G93.49 Other encephalopathy; E03.9 Hypothyroidism, unspecified; B96.1 Klebsiella pneumoniae [K. pneumoniae] as the cause of diseases classified elsewhere; I10 Essential (primary) hypertension; E87.6 Hypokalemia
CPT/HCPCS: 36415; 71045; 80048; 80053; 80076; 81003; 82607; 83090; 83605; 83690; 83735; 83880; 83921; 84100; 84132; 84145; 84439; 84443; 84484; 85025; 85610; 87040; 87077; 87086; 87088; 87186; 96374; 96375; 97161; 99284; C9113; J1650; J3480; J7030; J7040; U0003

== ENCOUNTER 2021-07-04 11:29 | Inpatient (IN) | payer OTHER ==
--- OUTSIDE RECORDS SUMMARY | 2021-07-04 11:34 | XMS REPORT | Clinical Summary ---
:1945 Author Organization [facility] Address [address] [place] [address] Care Team Providers Name Role Phone Judd Fernández MD Unavailable [phone] Sarah Anthony MD Primary Care Provider Allergies Not on File Medications Not on file Active Problems Not on file Social History Tobacco Use Types Packs/Day Years Used Date Never Assessed Sex Assigned at Date Recorded Not on file Last Filed Vital Signs Not on file Plan of Treatment Not on file Results Not on fileafter 07/04/2020 Insurance Payer Benefit Plan Subscriber ID Effective Phone Address Typ e / Group Dates MEDICARE MEDICARE PART [id number] 2012-Pres [phone] [place], [place] Medicare A AND B ent 82 BLUE [employer] PPO [id number] 2017-Prese PPO BLUE SHIELD POS nt GENERIC GENERIC [id number] 2017-[place] [address] Tina Padron Personal/Famil Self 1945 [address] (Home) [address] [id number] [place] [address] Tina Padron Personal/Famil Self [address] (Home) [address] [id number] [place] [address]
--- NOTE | 2021-07-04 11:44 | P.PN ---
Subjective Date of Service: 07/04/21 Primary Care Provider: none Chief Complaint: protein energy malnutrition Subjective: Improving (more awake today) Review of Systems is unable to be obtained Physical Examination - Physical Exam General: Alert, In no apparent distress HEENT: Atraumatic, PERRLA, EOMI Neck: Supple, JVD not distended Respiratory: Clear to auscultation bilaterally, Normal air movement Cardiovascular: Regular rate/rhythm, Normal S1 S2 Gastrointestinal: Normal bowel sounds, No tenderness Musculoskeletal: No tenderness Integumentary: No rashes Neurological: Normal speech, Normal tone, Normal affect Lymphatics: No axilla or inguinal lymphadenopathy Assessment & Plan - Problems (Diagnosis) (1) Dementia Current Visit: Yes Status: Acute Plan: Patient is not agitated today. She is calmer. Will start her on seroquel at night. will give sedation as needed Qualifiers: Dementia type: unspecified type Dementia behavioral disturbance: with behavioral disturbance Qualified Code(s): F03.91 - Unspecified dementia with behavioral disturbance (2) Protein-energy malnutrition Current Visit: Yes Status: Chronic Plan: She is not eating more than 1-2 bites Qualifiers: Protein-calorie malnutrition severity: severe Qualified Code(s): E43 - Unspecified severe protein-calorie malnutrition (3) End of life care Current Visit: No Status: Acute Plan: will [facility] her with [facility] today. Plan is to transfer to an inpatient facility. Will most likely not be till the end of the weekend Discharge Plan: Home Plan to discharge in: 24 Hours - Code Status/Comfort Care Code Status Assessed: Yes Code Status: Do Not Attempt Resuscitat Physician Review: Patient Assessed, Agree with Above Assessment and Plan Critical Care: No Time Spent Managing Pts Care (In Minutes): 30
[2021-07-04 12:12] VITALS: BMI 16.2
[2021-07-04] MEDS ORDERED: SCOPOLAMINE HYDROBROMIDE PATCH TD PRN (12:16)
[2021-07-04] MEDS ORDERED: ONDANSETRON 4 MG/2 ML VIAL IV PRN (12:16)
[2021-07-04] MEDS ORDERED: ACETAMINOPHEN 650MG/RECT SUPP PR PRN (12:17)
[2021-07-04] MEDS ORDERED: BISACODYL 10 MG RECTAL SUPP PR PRN (12:18)
[2021-07-04] MEDS: LORazepam 2 MG/ML VIAL IV PRN (13:53)
[2021-07-04] MEDS: MORPHINE 2 MG/ML SYR IV PRN (15:31)
[2021-07-04] MEDS: NITROFURAN MACRO 100 MG CAP PO SCH ×2 (20:37→21:00)
[2021-07-04] MEDS: QUETIAPINE 25 MG TAB PO SCH ×2 (20:37→21:00)
[2021-07-04] MEDS: SMZ./TMP. 800/160 MG TABLET PO SCH ×2 (20:37→21:00)
[2021-07-05] MEDS: LORazepam 2 MG/ML VIAL IV PRN ×2 (07:57→19:42)
[2021-07-05] MEDS: NITROFURAN MACRO 100 MG CAP PO SCH ×2 (07:57→19:41)
[2021-07-05] MEDS: SMZ./TMP. 800/160 MG TABLET PO SCH ×2 (07:57→19:42)
[2021-07-05] MEDS: MORPHINE 2 MG/ML SYR IV PRN (11:52)
[2021-07-05] MEDS: QUETIAPINE 25 MG TAB PO SCH (19:42)
[2021-07-06] MEDS: LORazepam 2 MG/ML VIAL IV PRN ×2 (05:16→19:50)
[2021-07-06] MEDS: MORPHINE 2 MG/ML SYR IV PRN ×3 (08:20→20:59)
[2021-07-06] MEDS: NITROFURAN MACRO 100 MG CAP PO SCH ×2 (08:20→19:50)
[2021-07-06] MEDS: SMZ./TMP. 800/160 MG TABLET PO SCH ×2 (08:20→19:50)
--- NOTE | 2021-07-06 12:20 | P.PN ---
Subjective Date of Service: 07/05/21 Primary Care Provider: none Chief Complaint: protein energy malnutrition Subjective: No new changes Review of Systems is unable to be obtained Physical Examination - Vital Signs Temperature: 97.9 F Blood Pressure: 124/63 Pulse: 101 Respirations: 18 Pulse Ox (%): 91 - Physical Exam General: In no apparent distress, Delirious HEENT: Atraumatic, PERRLA, EOMI Neck: Supple, JVD not distended Respiratory: Clear to auscultation bilaterally, Normal air movement Cardiovascular: Regular rate/rhythm, Normal S1 S2 Gastrointestinal: Normal bowel sounds, No tenderness Musculoskeletal: No tenderness Integumentary: No rashes Neurological: Normal speech, Normal tone, Normal affect Lymphatics: No axilla or inguinal lymphadenopathy Assessment & Plan - Problems (Diagnosis) (1) Dementia Current Visit: Yes Status: Acute Plan: Patient is not agitated today. She is calmer. Will start her on seroquel at night. will give sedation as needed Qualifiers: Dementia type: unspecified type Dementia behavioral disturbance: with behavioral disturbance Qualified Code(s): F03.91 - Unspecified dementia with behavioral disturbance (2) Protein-energy malnutrition Current Visit: Yes Status: Chronic Plan: She is not eating more than 1-2 bites Qualifiers: Protein-calorie malnutrition severity: severe Qualified Code(s): E43 - Unspecified severe protein-calorie malnutrition (3) End of life care Current Visit: No Status: Acute Plan: will start her with [facility] today. Plan is to transfer to an inpatient facility. Will most likely not be till the end of the weekend Discharge Plan: Other (inpt hospice) Plan to discharge in: 24 Hours - Code Status/Comfort Care Code Status Assessed: No Code Status: Do Not Attempt Resuscitat Physician Review: Patient Assessed, Agree with Above Assessment and Plan Critical Care: No Time Spent Managing Pts Care (In Minutes): 20
--- NOTE | 2021-07-06 12:20 | P.PN ---
Subjective Date of Service: 07/06/21 Primary Care Provider: none Chief Complaint: protein energy malnutrition Subjective: No new changes Review of Systems is unable to be obtained Physical Examination - Vital Signs Temperature: 97.9 F Blood Pressure: 124/63 Pulse: 101 Respirations: 18 Pulse Ox (%): 91 - Physical Exam General: Delirious HEENT: Atraumatic, PERRLA, EOMI Neck: Supple, JVD not distended Respiratory: Clear to auscultation bilaterally, Normal air movement Cardiovascular: Regular rate/rhythm, Normal S1 S2 Gastrointestinal: Normal bowel sounds, No tenderness Musculoskeletal: No tenderness Integumentary: No rashes Neurological: Normal speech, Normal tone, Normal affect Lymphatics: No axilla or inguinal lymphadenopathy Assessment & Plan - Problems (Diagnosis) (1) Dementia Current Visit: Yes Status: Acute Plan: Patient is not agitated today. She is calmer. Will start her on seroquel at night. will give sedation as needed Qualifiers: Dementia type: unspecified type Dementia behavioral disturbance: with behavioral disturbance Qualified Code(s): F03.91 - Unspecified dementia with behavioral disturbance (2) Protein-energy malnutrition Current Visit: Yes Status: Chronic Plan: She is not eating more than 1-2 bites Qualifiers: Protein-calorie malnutrition severity: severe Qualified Code(s): E43 - Unspecified severe protein-calorie malnutrition (3) End of life care Current Visit: No Status: Acute Plan: will start her with [facility] today. Plan is to transfer to an inpatient facility. Will most likely not be till the end of the weekend Discharge Plan: Other (inpt hospice) - Code Status/Comfort Care Code Status Assessed: No Physician Review: Patient Assessed, Agree with Above Assessment and Plan Critical Care: No Time Spent Managing Pts Care (In Minutes): 20
[2021-07-06] MEDS: QUETIAPINE 25 MG TAB PO SCH (19:50)
[2021-07-07] MEDS: LORazepam 2 MG/ML VIAL IV PRN ×4 (00:11→23:40)
[2021-07-07] MEDS: MORPHINE 2 MG/ML SYR IV PRN ×4 (04:01→23:40)
[2021-07-07] MEDS: SMZ./TMP. 800/160 MG TABLET PO SCH ×2 (09:00→19:29)
--- NOTE | 2021-07-07 09:47 | P.DS ---
Admission Date: 07/04/21 Discharge Date: 07/07/21 Primary Care Provider: none Disposition: HOSPICE-HOME Reason for Admission: protein energy malnutrition - Problems (1) Dementia Current Visit: Yes Status: Acute Qualifiers: Dementia type: unspecified type Dementia behavioral disturbance: with behavioral disturbance Qualified Code(s): F03.91 - Unspecified dementia with behavioral disturbance (2) Protein-energy malnutrition Current Visit: Yes Status: Chronic Qualifiers: Protein-calorie malnutrition severity: severe Qualified Code(s): E43 - Unspecified severe protein-calorie malnutrition (3) End of life care Current Visit: No Status: Acute Brief History of Present Illness: Patient admitted into hospice. She has dementia. Has not been eating Has lost approx 30lbs in the last 3 months. Hospital Course: Patient is ready for transfer to a facility for continued hospice care. She has been declining. Is only arousable this morning. Eating poorly. She has poor oral intake. We wish the best to the family. Thank you for allowing me to take part in his care. Vital Signs/Physical Exam: Temp Pulse Resp BP Pulse Ox 98 F 110 H 23 H 119/58 L 95 07/07/21 08:00 07/07/21 08:00 07/07/21 08:00 07/07/21 08:00 07/07/21 08:00 General: Demented, Delirious HEENT: Atraumatic, PERRLA, EOMI Neck: Supple, JVD not distended Respiratory: Clear to auscultation bilaterally, Normal air movement Cardiovascular: Regular rate/rhythm, Normal S1 S2 Gastrointestinal: Normal bowel sounds, No tenderness Musculoskeletal: No tenderness Integumentary: No rashes Neurological: Normal speech, Normal tone, Normal affect Lymphatics: No axilla or inguinal lymphadenopathy Home Medications: Oxycodone HCl/Acetaminophen [Prolate 7.5-300 mg Tablet] 1 tab PO PRN PRN 02/21/21 clonazePAM [Clonazepam] 1 mg PO BEDTIME 02/21/21 Gabapentin 1 tab PO BEDTIME 05/01/21 Levothyroxine [Synthroid*] 1 tab PO DAILY 05/01/21 hydroCHLOROthiazide [Hydrochlorothiazide] 1 cap PO DAILY 05/01/21 Diet: Regular Activity: Fall precautions Physician Review: Patient Assessed, Agree with Above Assessment and Plan Time spent managing pt's care (in minutes): 30
[2021-07-07] MEDS: QUETIAPINE 25 MG TAB PO SCH (19:29)
[2021-07-07 20:45] VITALS: O2SAT 96
[2021-07-08] MEDS: MORPHINE 2 MG/ML SYR IV PRN ×3 (03:56→16:04)
[2021-07-08] MEDS: LORazepam 2 MG/ML VIAL IV PRN ×2 (09:00→16:04)
[2021-07-08] MEDS: SMZ./TMP. 800/160 MG TABLET PO SCH (09:00)
--- NOTE | 2021-07-08 10:17 | P.PN ---
Subjective Date of Service: 07/08/21 Primary Care Provider: none Chief Complaint: protein energy malnutrition awaiting a bed for hospice Review of Systems is unable to be obtained Physical Examination - Vital Signs Temperature: 97.8 F Blood Pressure: 124/59 Pulse: 85 Respirations: 20 Pulse Ox (%): 94 - Physical Exam General: Delirious, Unresponsive HEENT: Atraumatic, PERRLA, EOMI Neck: Supple, JVD not distended Respiratory: Clear to auscultation bilaterally, Normal air movement Cardiovascular: Regular rate/rhythm, Normal S1 S2 Gastrointestinal: Normal bowel sounds, No tenderness Musculoskeletal: No tenderness Integumentary: No rashes Neurological: Normal speech, Normal tone, Normal affect Lymphatics: No axilla or inguinal lymphadenopathy Assessment & Plan - Problems (Diagnosis) (1) Dementia Current Visit: Yes Status: Acute Plan: Patient is not agitated today. She is calmer. Will start her on seroquel at night. will give sedation as needed Qualifiers: Dementia type: unspecified type Dementia behavioral disturbance: with behavioral disturbance Qualified Code(s): F03.91 - Unspecified dementia with behavioral disturbance (2) Protein-energy malnutrition Current Visit: Yes Status: Chronic Plan: She is not eating more than 1-2 bites Qualifiers: Protein-calorie malnutrition severity: severe Qualified Code(s): E43 - Unspecified severe protein-calorie malnutrition (3) End of life care Current Visit: No Status: Acute Plan: will start her with [facility] today. Plan is to transfer to an inpatient facility. Will most likely not be till the end of the weekend Discharge Plan: Other Plan to discharge in: 24 Hours - Code Status/Comfort Care Code Status Assessed: No Physician Review: Patient Assessed, Agree with Above Assessment and Plan Critical Care: No Time Spent Managing Pts Care (In Minutes): 15
--- NOTE | 2021-07-08 18:27 | P.DS ---
Admission Date: 07/04/21 Discharge Date: 07/08/21 Primary Care Provider: none Disposition: HOSPICE-HOME Discharge Condition: GOOD Reason for Admission: protein energy malnutrition - Problems (1) Dementia Current Visit: Yes Status: Acute Qualifiers: Dementia type: unspecified type Dementia behavioral disturbance: with behavioral disturbance Qualified Code(s): F03.91 - Unspecified dementia with behavioral disturbance (2) Protein-energy malnutrition Current Visit: Yes Status: Chronic Qualifiers: Protein-calorie malnutrition severity: severe Qualified Code(s): E43 - Unspecified severe protein-calorie malnutrition (3) End of life care Current Visit: No Status: Acute Brief History of Present Illness: Patient admitted into hospice. She has dementia. Has not been eating Has lost approx 30lbs in the last 3 months. Hospital Course: Patient is ready for transfer to a facility for continued hospice care. She has been declining. Is only arousable this morning. Eating poorly. She has poor oral intake. We wish the best to the family. Thank you for allowing me to take part in his care. 07/08/21 Patients discharge was held for a day till a bed was available. Will transfer this evening. Vital Signs/Physical Exam: Temp Pulse Resp BP Pulse Ox 97.8 F 85 20 124/59 L 95 07/08/21 10:17 07/08/21 10:17 07/08/21 16:34 07/08/21 10:17 07/08/21 16:34 Home Medications: Oxycodone HCl/Acetaminophen [Prolate 7.5-300 mg Tablet] 1 tab PO PRN PRN 02/21/21 clonazePAM [Clonazepam] 1 mg PO BEDTIME 02/21/21 Gabapentin 1 tab PO BEDTIME 05/01/21 Levothyroxine [Synthroid*] 1 tab PO DAILY 05/01/21 hydroCHLOROthiazide [Hydrochlorothiazide] 1 cap PO DAILY 05/01/21 Diet: Regular Activity: Fall precautions
[2021-07-08 21:21] VITALS: BP 110/56; TEMP 97.2
== END 2021-07-08 21:10 | disposition hospice, inpatient (51) | DRG 951 ==
LOC: 4TH 11:29
PROVIDERS: ADMIT Internal Medicine; ATTEND Internal Medicine
DX: Z51.5 Encounter for palliative care (principal); E43 Unspecified severe protein-calorie malnutrition; Z68.1 Body mass index [BMI] 19.9 or less, adult; F03.90 Unspecified dementia, unspecified severity, without behavioral disturbance, psychotic disturbance, mood disturbance, and anxiety
CPT/HCPCS: J2270